=== PATIENT | male | born 1980 | race Caucasian/White ===

== ENCOUNTER 2017-06-25 06:26 | Inpatient (IN) | payer SELFPAY ==
--- OUTSIDE RECORDS SUMMARY | 2017-06-25 06:28 | XMS REPORT ---
:1980 [facility] [address] [place] [address] Care Team Providers Name Role Phone LILIA HILL Unavailable Unavailable CARL TORRESTAMEKA Unavailable Unavailable Problems This patient has no known problems. Allergies, Adverse Reactions, Alerts This patient has no known allergies or adverse reactions. Medications This patient has no known medications. Results Test Description Test Time Test Comments Text Results Atomic Results Result Comments COMPREHENSIVE METABOLIC PANEL 2017-05-19 14:02:00 Test Item Value Reference Range Comments TOTAL PROTEIN (BEAKER) (test 7.8 gm/dL 6.0-8.3 avdn=128) ALBUMIN (BEAKER) (test 3.9 g/dL 3.5-5.0 ezgi=1445) ALKALINE PHOSPHATASE 62 U/L 40-150 (BEAKER) (test zpwq=968) BILIRUBIN TOTAL (BEAKER) 0.3 mg/dL 0.2-1.2 (test bujn=815) SODIUM (BEAKER) (test 139 meq/L 136-145 uhwq=606) POTASSIUM (BEAKER) (test 4.2 meq/L 3.5-5.1 ujga=824) CHLORIDE (BEAKER) (test 104 meq/L 98-107 gacs=856) CO2 (BEAKER) (test qqtn=481) 26 meq/L 22-29 BLOOD UREA NITROGEN (BEAKER) 9 mg/dL 7-21 (test yptc=255) CREATININE (BEAKER) (test 0.64 mg/dL 0.57-1.25 yfbc=655) GLUCOSE RANDOM (BEAKER) 78 mg/dL 70-105 (test emsx=319) CALCIUM (BEAKER) (test 9.5 mg/dL 8.4-10.2 mnml=536) AST (SGOT) (BEAKER) (test 18 U/L 5-34 cdql=595) ALT (SGPT) (BEAKER) (test 8 U/L 6-55 xstc=459) EGFR (BEAKER) (test 141 mL/min/1.73 sq m ESTIMATED GFR IS NOT wapg=4376) ACCURATE CREATININE CLEARANCE IN PREDICTING GLOMERULAR FILTRATION RATE. ESTIMATED GFR IS NOT APPLICABLE FOR DIALYSIS PATIENTS. COMPREHENSIVE METABOLIC [id number] 06:08:00 Test Item Value Reference Range Comments TOTAL PROTEIN (BEAKER) 7.0 gm/dL 6.0-8.3 Specimen slightly (test ykij=767) hemolyzed ALBUMIN (BEAKER) (test 3.4 g/dL 3.5-5.0 Specimen slightly qifv=3453) hemolyzed ALKALINE PHOSPHATASE 58 U/L 40-150 (BEAKER) (test egxg=451) BILIRUBIN TOTAL (BEAKER) 0.4 mg/dL 0.2-1.2 Specimen slightly (test kdre=784) hemolyzed SODIUM (BEAKER) (test 139 meq/L 136-145 itvc=867) POTASSIUM (BEAKER) (test 4.5 meq/L 3.5-5.1 Specimen slightly zeyv=107) hemolyzed CHLORIDE (BEAKER) (test 103 meq/L 98-107 shfv=293) CO2 (BEAKER) (test 27 meq/L 22-29 zxiq=864) BLOOD UREA NITROGEN 2 mg/dL 7-21 (BEAKER) (test fsue=540) CREATININE (BEAKER) (test 0.55 mg/dL 0.57-1.25 Specimen slightly xskd=909) hemolyzed GLUCOSE RANDOM (BEAKER) 85 mg/dL 70-105 (test dfqd=393) CALCIUM (BEAKER) (test 9.3 mg/dL 8.4-10.2 khbk=566) AST (SGOT) (BEAKER) (test 18 U/L 5-34 Specimen slightly hcht=480) hemolyzed ALT (SGPT) (BEAKER) (test 8 U/L 6-55 Specimen slightly dnxl=185) hemolyzed EGFR (BEAKER) (test 168 mL/min/1.73 sq ESTIMATED GFR IS NOT hidu=9227) m ACCURATE CREATININE CLEARANCE IN PREDICTING GLOMERULAR FILTRATION RATE. ESTIMATED GFR IS NOT APPLICABLE FOR DIALYSIS PATIENTS. CBC (HEMOGRAM ONLY)2017-05-17 05:20:00 Test Item Value Reference Range Comments WHITE BLOOD CELL COUNT (BEAKER) (test nxqe=856) 6.4 K/ L 3.5-10.5 RED BLOOD CELL COUNT (BEAKER) (test vwms=907) 3.84 M/ L 4.63-6.08 HEMOGLOBIN (BEAKER) (test hxbu=525) 11.5 GM/DL 13.7-17.5 HEMATOCRIT (BEAKER) (test isrp=324) 35.2 % 40.1-51.0 MEAN CORPUSCULAR VOLUME (BEAKER) (test mpbe=696) 91.7 fL 79.0-92.2 MEAN CORPUSCULAR HEMOGLOBIN (BEAKER) (test 29.9 pg 25.7-32.2 luzl=071) MEAN CORPUSCULAR HEMOGLOBIN CONC (BEAKER) (test 32.7 GM/DL 32.3-36.5 vhji=438) RED CELL DISTRIBUTION WIDTH (BEAKER) (test 14.1 % 11.6-14.4 skcv=095) PLATELET COUNT (BEAKER) (test zlnj=320) 434 K/CU MM 150-450 MEAN PLATELET VOLUME (BEAKER) (test vhki=467) 9.4 fL 9.4-12.4 NUCLEATED RED BLOOD CELLS (BEAKER) (test 0 /100 WBC 0-0 deug=967) HEPATIC FUNCTION [id number] 11:22:00 Test Item Value Reference Range Comments TOTAL PROTEIN (BEAKER) (test ukmz=109) 6.9 gm/dL 6.0-8.3 ALBUMIN (BEAKER) (test pbsy=5462) 3.4 g/dL 3.5-5.0 BILIRUBIN TOTAL (BEAKER) (test vssm=183) 0.4 mg/dL 0.2-1.2 BILIRUBIN DIRECT (BEAKER) (test rswz=331) 0.2 mg/dL 0.1-0.5 ALKALINE PHOSPHATASE (BEAKER) (test cdbe=873) 65 U/L 40-150 AST (SGOT) (BEAKER) (test dqjy=353) 14 U/L 5-34 ALT (SGPT) (BEAKER) (test oqfz=251) 8 U/L 6-55 CBC W/PLT COUNT & AUTO [id number] 11:16:00 Test Item Value Reference Range Comments WHITE BLOOD CELL COUNT (BEAKER) (test pxnp=010) 7.0 K/ L 3.5-10.5 RED BLOOD CELL COUNT (BEAKER) (test hdcj=416) 3.90 M/ L 4.63-6.08 HEMOGLOBIN (BEAKER) (test hcpo=972) 11.9 GM/DL 13.7-17.5 HEMATOCRIT (BEAKER) (test ytxy=060) 35.7 % 40.1-51.0 MEAN CORPUSCULAR VOLUME (BEAKER) (test mltc=238) 91.5 fL 79.0-92.2 MEAN CORPUSCULAR HEMOGLOBIN (BEAKER) (test 30.5 pg 25.7-32.2 qjdl=316) MEAN CORPUSCULAR HEMOGLOBIN CONC (BEAKER) (test 33.3 GM/DL 32.3-36.5 iiwa=712) RED CELL DISTRIBUTION WIDTH (BEAKER) (test 14.0 % 11.6-14.4 exlh=493) PLATELET COUNT (BEAKER) (test tbjv=074) 452 K/CU MM 150-450 MEAN PLATELET VOLUME (BEAKER) (test lfoj=422) 9.0 fL 9.4-12.4 NUCLEATED RED BLOOD CELLS (BEAKER) (test 0 /100 WBC 0-0 lnaf=500) NEUTROPHILS RELATIVE PERCENT (BEAKER) (test 59 % bfog=733) LYMPHOCYTES RELATIVE PERCENT (BEAKER) (test 21 % qozv=687) MONOCYTES RELATIVE PERCENT (BEAKER) (test 8 % yqfu=375) EOSINOPHILS RELATIVE PERCENT (BEAKER) (test 10 % uuft=155) BASOPHILS RELATIVE PERCENT (BEAKER) (test 1 % wqmt=475) NEUTROPHILS ABSOLUTE COUNT (BEAKER) (test 4.12 K/ L 1.78-5.38 zlya=467) LYMPHOCYTES ABSOLUTE COUNT (BEAKER) (test 1.45 K/ L 1.32-3.57 fvyn=532) MONOCYTES ABSOLUTE COUNT (BEAKER) (test 0.58 K/ L 0.30-0.82 gfly=408) EOSINOPHILS ABSOLUTE COUNT (BEAKER) (test 0.70 K/ L 0.04-0.54 xfec=631) BASOPHILS ABSOLUTE COUNT (BEAKER) (test 0.10 K/ L 0.01-0.08 pksv=859) IMMATURE GRANULOCYTES-RELATIVE PERCENT (BEAKER) 0 % 0-1 (test uqog=9590) BASIC METABOLIC [id number] 06:43:00 Test Item Value Reference Range Comments SODIUM (BEAKER) (test 138 meq/L 136-145 omne=413) POTASSIUM (BEAKER) (test 3.5 meq/L 3.5-5.1 flol=142) CHLORIDE (BEAKER) (test 100 meq/L 98-107 tbpf=920) CO2 (BEAKER) (test 27 meq/L 22-29 wuow=271) BLOOD UREA NITROGEN 2 mg/dL 7-21 (BEAKER) (test vyiy=120) CREATININE (BEAKER) (test 0.53 mg/dL 0.57-1.25 fzqc=517) GLUCOSE RANDOM (BEAKER) 82 mg/dL 70-105 (test sycz=552) CALCIUM (BEAKER) (test 9.0 mg/dL 8.4-10.2 jsvb=107) EGFR (BEAKER) (test 175 mL/min/1.73 sq m ESTIMATED GFR IS NOT unkv=4351) ACCURATE CREATININE CLEARANCE IN PREDICTING GLOMERULAR FILTRATION RATE. ESTIMATED GFR IS NOT APPLICABLE FOR DIALYSIS PATIENTS. BASIC METABOLIC [id number] 05:14:00 Test Item Value Reference Range Comments SODIUM (BEAKER) (test 132 meq/L 136-145 cxrk=624) POTASSIUM (BEAKER) (test 3.8 meq/L 3.5-5.1 oxfc=056) CHLORIDE (BEAKER) (test 101 meq/L 98-107 mjyo=862) CO2 (BEAKER) (test 18 meq/L 22-29 dawy=771) BLOOD UREA NITROGEN 4 mg/dL 7-21 (BEAKER) (test looj=966) CREATININE (BEAKER) (test 0.52 mg/dL 0.57-1.25 aswy=557) GLUCOSE RANDOM (BEAKER) 58 mg/dL 70-105 (test yzsu=227) CALCIUM (BEAKER) (test 8.7 mg/dL 8.4-10.2 gebz=762) EGFR (BEAKER) (test 179 mL/min/1.73 sq m ESTIMATED GFR IS NOT vpfg=1086) ACCURATE CREATININE CLEARANCE IN PREDICTING GLOMERULAR FILTRATION RATE. ESTIMATED GFR IS NOT APPLICABLE FOR DIALYSIS PATIENTS. CBC (HEMOGRAM ONLY)2017-05-15 04:57:00 Test Item Value Reference Range Comments WHITE BLOOD CELL COUNT (BEAKER) (test bkkr=330) 13.4 K/ L 3.5-10.5 RED BLOOD CELL COUNT (BEAKER) (test frxy=994) 3.81 M/ L 4.63-6.08 HEMOGLOBIN (BEAKER) (test mlyk=517) 11.4 GM/DL 13.7-17.5 HEMATOCRIT (BEAKER) (test dqad=149) 35.1 % 40.1-51.0 MEAN CORPUSCULAR VOLUME (BEAKER) (test zced=396) 92.1 fL 79.0-92.2 MEAN CORPUSCULAR HEMOGLOBIN (BEAKER) (test 29.9 pg 25.7-32.2 ulnh=611) MEAN CORPUSCULAR HEMOGLOBIN CONC (BEAKER) (test 32.5 GM/DL 32.3-36.5 ijxm=926) RED CELL DISTRIBUTION WIDTH (BEAKER) (test 14.3 % 11.6-14.4 udnt=870) PLATELET COUNT (BEAKER) (test nvxb=976) 502 K/CU MM 150-450 MEAN PLATELET VOLUME (BEAKER) (test qldz=308) 9.6 fL 9.4-12.4 NUCLEATED RED BLOOD CELLS (BEAKER) (test 0 /100 WBC 0-0 zdpz=144) LIPID [id number] 05:00:00 Test Item Value Reference Range Comments TRIGLYCERIDES (BEAKER) (test sbqi=998) 71 mg/dL CHOLESTEROL (BEAKER) (test qjmp=061) 108 mg/dL HDL CHOLESTEROL (BEAKER) (test gxlc=546) 22 mg/dL LDL CHOLESTEROL CALCULATED (BEAKER) (test 72 mg/dL vpfd=979) Triglyceride Reference Range: Low Risk <150 Borderline 150- 199 High Risk 200-499 Very High Risk >=500Cholesterol Reference Range: Low Risk <200 Borderline 200-239 High Risk > 240HDL Cholesterol Reference Range: Low Risk >=60 High Risk <40LDL Cholesterol Reference Range: Optimal <100 Near Optimal 100-129 Borderline 130-159 High 160-189 Very High >=190BASIC METABOLIC [id number] 05:00:00 Test Item Value Reference Range Comments SODIUM (BEAKER) (test 133 meq/L 136-145 gfzo=007) POTASSIUM (BEAKER) (test 4.1 meq/L 3.5-5.1 bmcc=410) CHLORIDE (BEAKER) (test 105 meq/L 98-107 djyh=443) CO2 (BEAKER) (test 17 meq/L 22-29 pina=410) BLOOD UREA NITROGEN 8 mg/dL 7-21 (BEAKER) (test meej=996) CREATININE (BEAKER) (test 0.51 mg/dL 0.57-1.25 hlfd=731) GLUCOSE RANDOM (BEAKER) 54 mg/dL 70-105 (test zhmu=842) CALCIUM (BEAKER) (test 8.4 mg/dL 8.4-10.2 cari=113) EGFR (BEAKER) (test 183 mL/min/1.73 sq m ESTIMATED GFR IS NOT gmsa=9296) ACCURATE CREATININE CLEARANCE IN PREDICTING GLOMERULAR FILTRATION RATE. ESTIMATED GFR IS NOT APPLICABLE FOR DIALYSIS PATIENTS. HEPATIC FUNCTION [id number] 05:00:00 Test Item Value Reference Range Comments TOTAL PROTEIN (BEAKER) (test uuqa=582) 6.3 gm/dL 6.0-8.3 ALBUMIN (BEAKER) (test sylu=4721) 3.2 g/dL 3.5-5.0 BILIRUBIN TOTAL (BEAKER) (test iidw=543) 0.7 mg/dL 0.2-1.2 BILIRUBIN DIRECT (BEAKER) (test tger=113) 0.3 mg/dL 0.1-0.5 ALKALINE PHOSPHATASE (BEAKER) (test gsqt=703) 62 U/L 40-150 AST (SGOT) (BEAKER) (test kqwr=174) 13 U/L 5-34 ALT (SGPT) (BEAKER) (test sdaa=964) 9 U/L 6-55 [id number] 05:00:00 Test Item Value Reference Range Comments LIPASE (BEAKER) (test nxim=539) 1007 U/L 8-78 CBC (HEMOGRAM ONLY)2017-05-14 04:39:00 Test Item Value Reference Range Comments WHITE BLOOD CELL COUNT (BEAKER) (test onnw=599) 16.6 K/ L 3.5-10.5 RED BLOOD CELL COUNT (BEAKER) (test otob=740) 3.98 M/ L 4.63-6.08 HEMOGLOBIN (BEAKER) (test kbha=337) 12.0 GM/DL 13.7-17.5 HEMATOCRIT (BEAKER) (test ugnm=354) 37.2 % 40.1-51.0 MEAN CORPUSCULAR VOLUME (BEAKER) (test egyy=313) 93.5 fL 79.0-92.2 MEAN CORPUSCULAR HEMOGLOBIN (BEAKER) (test 30.2 pg 25.7-32.2 fuaq=397) MEAN CORPUSCULAR HEMOGLOBIN CONC (BEAKER) (test 32.3 GM/DL 32.3-36.5 hkyv=826) RED CELL DISTRIBUTION WIDTH (BEAKER) (test 14.5 % 11.6-14.4 siqj=296) PLATELET COUNT (BEAKER) (test zdbc=201) 527 K/CU MM 150-450 MEAN PLATELET VOLUME (BEAKER) (test orhm=618) 9.5 fL 9.4-12.4 NUCLEATED RED BLOOD CELLS (BEAKER) (test 0 /100 WBC 0-0 utfz=619) MR, ABDOMEN, [id number] 12:25:00FINAL REPORT MRI of the abdomen, MRCP. Clinical history: Pancreatitis. COMPARISON STUDY: None. TECHNIQUE: Multiplanar, multisequence images of the abdomen were acquired without the administration of intravenous gadolinium as per the MRCP protocol. Three-dimensional reconstructions were acquired and utilized by the dictating radiologist at the time of interpretation. FINDINGS: No pleural effusion is seen. The abdomen is limited by lack of contrast. The liver, spleen, kidneys and adrenal glands are unremarkable. The portal vein is patent measuring 1.1 cm. No definite vascular thrombosis is seen. No ascites is seen. There is no suspicious adenopathy. The aorta is normal in caliber. A 2.4 x 2.3 cm hypointense T1 and heterogeneousT2-weighted lesion is seen in the pancreatic head, possibly a pseudocyst. Similarly, there is a 1.9 x 0.7 cm likely fluid collection versus focal ductal dilatation in the uncinate process region. Peripancreatic increased T2-weighted signal is also seen, more so around the head consistent with the provided clinical history of pancreatitis. No organized peripancreatic fluid collections are seen. MRCP demonstrates a 3 mm filling defect, likely a tiny stone or polyp in the neck of the gallbladder, near the cystic duct. No evidence of biliary dilatationis seen with the CBD measuring 3 mm. There is no choledocholithiasis noted. The pancreatic duct is normal in caliber. Visualized osseous structures demonstrate no focal rounded. IMPRESSION:1. Findings consistent with pancreatitis. Lack of contrast limits assessment but is likely pseudocyst is seen in the pancreatic head region. There is also an area of fluid in the uncinate process, pseudocyst versusfocal ductal dilatation. These could be followed up to ensure resolution and exclude other etiologies.2. Suspected tiny gallstone or polyp in the gallbladder neck. No biliary dilatation or choledocholithiasis. Signed: Kiko Vee MDReport Verified Date/Time: 03/13/2017 12:25:41 Reading Location: [address] Ortho Consult Reading Room Electronically signed by: KIKO VEE M.D. on 12:25 [facility] METABOLIC [id number] 05:05:00 Test Item Value Reference Range Comments SODIUM (BEAKER) (test 139 meq/L 136-145 svcq=063) POTASSIUM (BEAKER) (test 3.7 meq/L 3.5-5.1 bxdl=014) CHLORIDE (BEAKER) (test 108 meq/L 98-107 zbyh=794) CO2 (BEAKER) (test 22 meq/L 22-29 elsh=880) BLOOD UREA NITROGEN 4 mg/dL 7-21 (BEAKER) (test ermn=048) CREATININE (BEAKER) (test 0.58 mg/dL 0.57-1.25 eakw=752) GLUCOSE RANDOM (BEAKER) 95 mg/dL 70-105 (test wlth=365) CALCIUM (BEAKER) (test 8.5 mg/dL 8.4-10.2 kteq=324) EGFR (BEAKER) (test 158 mL/min/1.73 sq m ESTIMATED GFR IS NOT jqqo=7263) ACCURATE CREATININE CLEARANCE IN PREDICTING GLOMERULAR FILTRATION RATE. ESTIMATED GFR IS NOT APPLICABLE FOR DIALYSIS PATIENTS. CBC W/PLT COUNT & AUTO [id number] 04:49:00 Test Item Value Reference Range Comments WHITE BLOOD CELL COUNT (BEAKER) (test sukz=755) 6.3 K/ L 3.5-10.5 RED BLOOD CELL COUNT (BEAKER) (test cvrt=689) 4.32 M/ L 4.63-6.08 HEMOGLOBIN (BEAKER) (test qnhz=564) 13.7 GM/DL 13.7-17.5 HEMATOCRIT (BEAKER) (test fjix=754) 40.3 % 40.1-51.0 MEAN CORPUSCULAR VOLUME (BEAKER) (test nklb=689) 93.3 fL 79.0-92.2 MEAN CORPUSCULAR HEMOGLOBIN (BEAKER) (test 31.7 pg 25.7-32.2 afmc=108) MEAN CORPUSCULAR HEMOGLOBIN CONC (BEAKER) (test 34.0 GM/DL 32.3-36.5 yoir=736) RED CELL DISTRIBUTION WIDTH (BEAKER) (test 11.9 % 11.6-14.4 vteh=088) PLATELET COUNT (BEAKER) (test izop=798) 286 K/CU MM 150-450 MEAN PLATELET VOLUME (BEAKER) (test judb=506) 9.4 fL 9.4-12.4 NUCLEATED RED BLOOD CELLS (BEAKER) (test 0 /100 WBC 0-0 atrr=540) NEUTROPHILS RELATIVE PERCENT (BEAKER) (test 51 % ewil=643) LYMPHOCYTES RELATIVE PERCENT (BEAKER) (test 31 % hifm=622) MONOCYTES RELATIVE PERCENT (BEAKER) (test 11 % xsut=693) EOSINOPHILS RELATIVE PERCENT (BEAKER) (test 6 % kcjf=266) BASOPHILS RELATIVE PERCENT (BEAKER) (test 1 % nmqk=755) NEUTROPHILS ABSOLUTE COUNT (BEAKER) (test 3.21 K/ L 1.78-5.38 kqcb=119) LYMPHOCYTES ABSOLUTE COUNT (BEAKER) (test 1.91 K/ L 1.32-3.57 qcyv=438) MONOCYTES ABSOLUTE COUNT (BEAKER) (test 0.68 K/ L 0.30-0.82 nioo=813) EOSINOPHILS ABSOLUTE COUNT (BEAKER) (test 0.40 K/ L 0.04-0.54 kafz=739) BASOPHILS ABSOLUTE COUNT (BEAKER) (test 0.04 K/ L 0.01-0.08 hpij=172) IMMATURE GRANULOCYTES-RELATIVE PERCENT (BEAKER) 1 % 0-1 (test ulwx=3633) CBC W/PLT COUNT & AUTO [id number] 04:52:00 Test Item Value Reference Range Comments WHITE BLOOD CELL COUNT (BEAKER) (test knwk=014) 6.2 K/ L 3.5-10.5 RED BLOOD CELL COUNT (BEAKER) (test wcdm=771) 4.31 M/ L 4.63-6.08 HEMOGLOBIN (BEAKER) (test szth=416) 13.7 GM/DL 13.7-17.5 HEMATOCRIT (BEAKER) (test pchq=188) 41.1 % 40.1-51.0 MEAN CORPUSCULAR VOLUME (BEAKER) (test xxgu=641) 95.4 fL 79.0-92.2 MEAN CORPUSCULAR HEMOGLOBIN (BEAKER) (test 31.8 pg 25.7-32.2 dsuc=452) MEAN CORPUSCULAR HEMOGLOBIN CONC (BEAKER) (test 33.3 GM/DL 32.3-36.5 akwu=899) RED CELL DISTRIBUTION WIDTH (BEAKER) (test 12.1 % 11.6-14.4 cymp=070) PLATELET COUNT (BEAKER) (test fkdh=054) 295 K/CU MM 150-450 MEAN PLATELET VOLUME (BEAKER) (test actz=970) 9.5 fL 9.4-12.4 NUCLEATED RED BLOOD CELLS (BEAKER) (test 0 /100 WBC 0-0 tzid=192) NEUTROPHILS RELATIVE PERCENT (BEAKER) (test 51 % okct=693) LYMPHOCYTES RELATIVE PERCENT (BEAKER) (test 31 % nizf=172) MONOCYTES RELATIVE PERCENT (BEAKER) (test 11 % iwbb=031) EOSINOPHILS RELATIVE PERCENT (BEAKER) (test 7 % qahx=308) BASOPHILS RELATIVE PERCENT (BEAKER) (test 1 % mjgz=958) NEUTROPHILS ABSOLUTE COUNT (BEAKER) (test 3.17 K/ L 1.78-5.38 nqff=677) LYMPHOCYTES ABSOLUTE COUNT (BEAKER) (test 1.89 K/ L 1.32-3.57 uajf=512) MONOCYTES ABSOLUTE COUNT (BEAKER) (test 0.65 K/ L 0.30-0.82 krla=328) EOSINOPHILS ABSOLUTE COUNT (BEAKER) (test 0.41 K/ L 0.04-0.54 eumb=022) BASOPHILS ABSOLUTE COUNT (BEAKER) (test 0.05 K/ L 0.01-0.08 pguf=411) IMMATURE GRANULOCYTES-RELATIVE PERCENT (BEAKER) 1 % 0-1 (test bami=6139) COMPREHENSIVE METABOLIC [id number] 11:20:00 Test Item Value Reference Range Comments TOTAL PROTEIN (BEAKER) 7.2 gm/dL 6.0-8.3 (test wpsq=455) ALBUMIN (BEAKER) (test 3.7 g/dL 3.5-5.0 vbcs=2115) ALKALINE PHOSPHATASE 73 U/L 40-150 (BEAKER) (test dzbe=995) BILIRUBIN TOTAL (BEAKER) 0.6 mg/dL 0.2-1.2 (test mivb=029) SODIUM (BEAKER) (test 135 meq/L 136-145 vdlr=532) POTASSIUM (BEAKER) (test 5.0 meq/L 3.5-5.1 ehhn=676) CHLORIDE (BEAKER) (test 109 meq/L 98-107 enty=292) CO2 (BEAKER) (test 14 meq/L 22-29 rnpc=078) BLOOD UREA NITROGEN 6 mg/dL 7-21 (BEAKER) (test kpeb=362) CREATININE (BEAKER) (test 0.62 mg/dL 0.57-1.25 zpbf=253) GLUCOSE RANDOM (BEAKER) 45 mg/dL 70-105 (test ljqi=974) CALCIUM (BEAKER) (test 8.6 mg/dL 8.4-10.2 qqza=545) AST (SGOT) (BEAKER) (test 17 U/L 5-34 ogjj=437) ALT (SGPT) (BEAKER) (test 14 U/L 6-55 qvpn=126) EGFR (BEAKER) (test 146 mL/min/1.73 sq ESTIMATED GFR IS NOT mbeu=3463) m ACCURATE CREATININE CLEARANCE IN PREDICTING GLOMERULAR FILTRATION RATE. ESTIMATED GFR IS NOT APPLICABLE FOR DIALYSIS PATIENTS. CBC W/PLT COUNT & AUTO [id number] 09:54:00 Test Item Value Reference Range Comments WHITE BLOOD CELL COUNT (BEAKER) (test xrfp=213) 7.4 K/ L 3.5-10.5 RED BLOOD CELL COUNT (BEAKER) (test ntpe=065) 4.32 M/ L 4.63-6.08 HEMOGLOBIN (BEAKER) (test wqws=607) 13.6 GM/DL 13.7-17.5 HEMATOCRIT (BEAKER) (test tlbc=730) 41.8 % 40.1-51.0 MEAN CORPUSCULAR VOLUME (BEAKER) (test bgzi=209) 96.8 fL 79.0-92.2 MEAN CORPUSCULAR HEMOGLOBIN (BEAKER) (test 31.5 pg 25.7-32.2 ixcu=856) MEAN CORPUSCULAR HEMOGLOBIN CONC (BEAKER) (test 32.5 GM/DL 32.3-36.5 txrp=753) RED CELL DISTRIBUTION WIDTH (BEAKER) (test 12.1 % 11.6-14.4 osbc=278) PLATELET COUNT (BEAKER) (test vxic=271) 277 K/CU MM 150-450 MEAN PLATELET VOLUME (BEAKER) (test vlmq=673) 9.7 fL 9.4-12.4 NUCLEATED RED BLOOD CELLS (BEAKER) (test 0 /100 WBC 0-0 wkrp=918) NEUTROPHILS RELATIVE PERCENT (BEAKER) (test 57 % lyhw=926) LYMPHOCYTES RELATIVE PERCENT (BEAKER) (test 29 % kapt=735) MONOCYTES RELATIVE PERCENT (BEAKER) (test 8 % txut=153) EOSINOPHILS RELATIVE PERCENT (BEAKER) (test 5 % tvcb=160) BASOPHILS RELATIVE PERCENT (BEAKER) (test 1 % krkh=879) NEUTROPHILS ABSOLUTE COUNT (BEAKER) (test 4.23 K/ L 1.78-5.38 iyca=582) LYMPHOCYTES ABSOLUTE COUNT (BEAKER) (test 2.10 K/ L 1.32-3.57 onzf=397) MONOCYTES ABSOLUTE COUNT (BEAKER) (test 0.57 K/ L 0.30-0.82 aqva=536) EOSINOPHILS ABSOLUTE COUNT (BEAKER) (test 0.38 K/ L 0.04-0.54 svmn=588) BASOPHILS ABSOLUTE COUNT (BEAKER) (test 0.05 K/ L 0.01-0.08 dzdl=152) IMMATURE GRANULOCYTES-RELATIVE PERCENT (BEAKER) 1 % 0-1 (test ygzt=4279) (MANUAL DIFFERENTIAL)2017-03-11 09:54:00 Test Item Value Reference Range Comments TOTAL COUNTED (BEAKER) (test dxua=3906) WBC MORPHOLOGY (BEAKER) (test oryg=925) Normal PLT MORPHOLOGY (BEAKER) (test uxzp=108) Normal RBC MORPHOLOGY (BEAKER) (test eybm=826) Normal CBC W/PLT COUNT & AUTO [id number] 09:09:00 Test Item Value Reference Range Comments WHITE BLOOD CELL COUNT (BEAKER) (test fpww=042) 8.9 K/ L 3.5-10.5 RED BLOOD CELL COUNT (BEAKER) (test qbvg=901) 4.25 M/ L 4.63-6.08 HEMOGLOBIN (BEAKER) (test kluh=230) 13.6 GM/DL 13.7-17.5 HEMATOCRIT (BEAKER) (test fhve=808) 40.7 % 40.1-51.0 MEAN CORPUSCULAR VOLUME (BEAKER) (test cwmc=359) 95.8 fL 79.0-92.2 MEAN CORPUSCULAR HEMOGLOBIN (BEAKER) (test 32.0 pg 25.7-32.2 swji=376) MEAN CORPUSCULAR HEMOGLOBIN CONC (BEAKER) (test 33.4 GM/DL 32.3-36.5 pdod=870) RED CELL DISTRIBUTION WIDTH (BEAKER) (test 12.1 % 11.6-14.4 kcrk=552) PLATELET COUNT (BEAKER) (test giac=035) 274 K/CU MM 150-450 MEAN PLATELET VOLUME (BEAKER) (test vgnq=399) 9.8 fL 9.4-12.4 NUCLEATED RED BLOOD CELLS (BEAKER) (test 0 /100 WBC 0-0 fuuh=580) NEUTROPHILS RELATIVE PERCENT (BEAKER) (test 62 % jsxo=603) LYMPHOCYTES RELATIVE PERCENT (BEAKER) (test 24 % avqh=526) MONOCYTES RELATIVE PERCENT (BEAKER) (test 7 % jnnh=755) EOSINOPHILS RELATIVE PERCENT (BEAKER) (test 5 % yzrq=370) BASOPHILS RELATIVE PERCENT (BEAKER) (test 1 % ltok=400) NEUTROPHILS ABSOLUTE COUNT (BEAKER) (test 5.55 K/ L 1.78-5.38 btip=681) LYMPHOCYTES ABSOLUTE COUNT (BEAKER) (test 2.14 K/ L 1.32-3.57 pthq=183) MONOCYTES ABSOLUTE COUNT (BEAKER) (test 0.64 K/ L 0.30-0.82 qjum=042) EOSINOPHILS ABSOLUTE COUNT (BEAKER) (test 0.48 K/ L 0.04-0.54 alxo=755) BASOPHILS ABSOLUTE COUNT (BEAKER) (test 0.07 K/ L 0.01-0.08 bizy=814) IMMATURE GRANULOCYTES-RELATIVE PERCENT (BEAKER) 0 % 0-1 (test jdup=0450) (MANUAL DIFFERENTIAL)2017-03-10 09:09:00 Test Item Value Reference Range Comments TOTAL COUNTED (BEAKER) (test wrgi=5068) WBC MORPHOLOGY (BEAKER) (test mlxk=270) Normal PLT MORPHOLOGY (BEAKER) (test oanq=583) Normal RBC MORPHOLOGY (BEAKER) (test qiws=364) Normal COMPREHENSIVE METABOLIC [id number] 07:30:00 Test Item Value Reference Range Comments TOTAL PROTEIN (BEAKER) 6.8 gm/dL 6.0-8.3 (test yyav=546) ALBUMIN (BEAKER) (test 3.6 g/dL 3.5-5.0 onoc=7291) ALKALINE PHOSPHATASE 77 U/L 40-150 (BEAKER) (test octx=245) BILIRUBIN TOTAL (BEAKER) 0.6 mg/dL 0.2-1.2 (test lpeu=268) SODIUM (BEAKER) (test 136 meq/L 136-145 zmda=051) POTASSIUM (BEAKER) (test 4.3 meq/L 3.5-5.1 bruv=808) CHLORIDE (BEAKER) (test 105 meq/L 98-107 nxnk=548) CO2 (BEAKER) (test 19 meq/L 22-29 akzt=942) BLOOD UREA NITROGEN 6 mg/dL 7-21 (BEAKER) (test hqrg=905) CREATININE (BEAKER) (test 0.57 mg/dL 0.57-1.25 szgx=880) GLUCOSE RANDOM (BEAKER) 52 mg/dL 70-105 (test mzol=806) CALCIUM (BEAKER) (test 8.2 mg/dL 8.4-10.2 yzsz=711) AST (SGOT) (BEAKER) (test 17 U/L 5-34 cnig=305) ALT (SGPT) (BEAKER) (test 14 U/L 6-55 uhof=882) EGFR (BEAKER) (test 161 mL/min/1.73 sq ESTIMATED GFR IS NOT cxby=7409) m ACCURATE CREATININE CLEARANCE IN PREDICTING GLOMERULAR FILTRATION RATE. ESTIMATED GFR IS NOT APPLICABLE FOR DIALYSIS PATIENTS. CBC W/PLT COUNT & AUTO [id number] 10:49:00 Test Item Value Reference Range Comments WHITE BLOOD CELL COUNT (BEAKER) (test vvii=514) 6.9 K/ L 3.5-10.5 RED BLOOD CELL COUNT (BEAKER) (test pipb=364) 3.83 M/ L 4.63-6.08 HEMOGLOBIN (BEAKER) (test umps=225) 12.5 GM/DL 13.7-17.5 HEMATOCRIT (BEAKER) (test imkw=010) 36.7 % 40.1-51.0 MEAN CORPUSCULAR VOLUME (BEAKER) (test uuqa=888) 95.8 fL 79.0-92.2 MEAN CORPUSCULAR HEMOGLOBIN (BEAKER) (test 32.6 pg 25.7-32.2 sjyp=479) MEAN CORPUSCULAR HEMOGLOBIN CONC (BEAKER) (test 34.1 GM/DL 32.3-36.5 buaf=686) RED CELL DISTRIBUTION WIDTH (BEAKER) (test 12.4 % 11.6-14.4 dksb=878) PLATELET COUNT (BEAKER) (test junv=131) 267 K/CU MM 150-450 MEAN PLATELET VOLUME (BEAKER) (test geir=648) 9.7 fL 9.4-12.4 NUCLEATED RED BLOOD CELLS (BEAKER) (test 0 /100 WBC 0-0 gqas=640) NEUTROPHILS RELATIVE PERCENT (BEAKER) (test 60 % ysyy=179) LYMPHOCYTES RELATIVE PERCENT (BEAKER) (test 26 % fark=811) MONOCYTES RELATIVE PERCENT (BEAKER) (test 7 % woys=516) EOSINOPHILS RELATIVE PERCENT (BEAKER) (test 6 % cnyb=051) BASOPHILS RELATIVE PERCENT (BEAKER) (test 1 % yosw=375) NEUTROPHILS ABSOLUTE COUNT (BEAKER) (test 4.15 K/ L 1.78-5.38 gcss=542) LYMPHOCYTES ABSOLUTE COUNT (BEAKER) (test 1.82 K/ L 1.32-3.57 peci=971) MONOCYTES ABSOLUTE COUNT (BEAKER) (test 0.47 K/ L 0.30-0.82 rsjv=257) EOSINOPHILS ABSOLUTE COUNT (BEAKER) (test 0.38 K/ L 0.04-0.54 bqwv=836) BASOPHILS ABSOLUTE COUNT (BEAKER) (test 0.04 K/ L 0.01-0.08 gtbp=046) COMPREHENSIVE METABOLIC [id number] 10:45:00 Test Item Value Reference Range Comments TOTAL PROTEIN (BEAKER) 6.2 gm/dL 6.0-8.3 (test wonh=968) ALBUMIN (BEAKER) (test 3.3 g/dL 3.5-5.0 cuoh=9916) ALKALINE PHOSPHATASE 70 U/L 40-150 (BEAKER) (test kpud=501) BILIRUBIN TOTAL (BEAKER) 0.4 mg/dL 0.2-1.2 (test lwcm=839) SODIUM (BEAKER) (test 138 meq/L 136-145 pcim=440) POTASSIUM (BEAKER) (test 3.5 meq/L 3.5-5.1 uisi=862) CHLORIDE (BEAKER) (test 109 meq/L 98-107 nwyv=592) CO2 (BEAKER) (test 23 meq/L 22-29 jlch=470) BLOOD UREA NITROGEN 5 mg/dL 7-21 (BEAKER) (test fzrk=176) CREATININE (BEAKER) (test 0.54 mg/dL 0.57-1.25 rpvc=441) GLUCOSE RANDOM (BEAKER) 77 mg/dL 70-105 (test oqpf=523) CALCIUM (BEAKER) (test 7.6 mg/dL 8.4-10.2 xzcf=554) AST (SGOT) (BEAKER) (test 18 U/L 5-34 nnpe=470) ALT (SGPT) (BEAKER) (test 15 U/L 6-55 tsmu=386) EGFR (BEAKER) (test 171 mL/min/1.73 sq ESTIMATED GFR IS NOT yzmf=0392) m ACCURATE CREATININE CLEARANCE IN PREDICTING GLOMERULAR FILTRATION RATE. ESTIMATED GFR IS NOT APPLICABLE FOR DIALYSIS PATIENTS. [id number] 10:29:00 Test Item Value Reference Range Comments TRIGLYCERIDES (BEAKER) (test ixqh=564) 58 mg/dL TRIGLYCERIDE REFERENCE RANGELow Risk <150Borderline Risk 150-199High Risk 200-499Very High Risk>=[id number] 10:29:00 Test Item Value Reference Range Comments MAGNESIUM (BEAKER) (test upgl=356) 1.4 mg/dL 1.6-2.6 [id number] 10:29:00 Test Item Value Reference Range Comments LIPASE (BEAKER) (test uqce=382) 536 U/L 8-78 PROTHROMBIN TIME/[id number] 10:22:00 Test Item Value Reference Range Comments PROTIME (BEAKER) (test tvbx=599) 14.3 seconds 11.7-14.7 INR (BENOITAKER) (test rlff=409) 1.1 <=5.9 RECOMMENDED COUMADIN/WARFARIN INR THERAPY RANGESSTANDARD DOSE: 2.0 - 3.0 Includes: PROPHYLAXIS forvenous thrombosis, systemic embolization; TREATMENT for venous thrombosis and/or pulmonary embolus.HIGH RISK: Target INR is 2.5-3.5 for patients with mechanical heart valves.
--- OUTSIDE RECORDS SUMMARY | 2017-06-25 06:28 | XMS REPORT | Clinical Summary ---
:1980 Author Organization [facility] Address [address] [place] [address] Phone Care Team Providers Name Role Phone Unavailable Primary Care Provider Unavailable Allergies Active Allergy Reactions Severity Noted Date Comments Acetaminophen 03/09/2017 Current Medications Prescription Sig. Disp. Refills Start Date End Date Status apixaban (ELIQUIS) 5 mg Take 2.5 mg by Active Tab tabletIndications: mouth 2 (two) deep venous thrombosis times daily. folic acid (FOLVITE) 1 Take 1 tablet 30 tablet 0 03/15/2017 03/15/2018 Active MG tablet (1 mg total) by mouth daily. thiamine 100 MG tablet Take 1 tablet 30 tablet 0 03/15/2017 03/15/2018 Active (100 mg total) by mouth daily. HYDROcodone-acetaminoph Take 1 tablet Active en (NORCO 10-325) by mouth every 10-325 mg per 6 (six) hours tabletIndications: Pain as needed for Pain. nicotine (NICODERM CQ) Place 1 patch 28 patch 0 03/15/2017 04/14/2017 21 mg/24 hr patch onto the skin daily for 30 days. ondansetron Take 1 tablet 20 tablet 0 05/20/2017 05/30/2017 (ZOFRAN-ODT) 4 MG (4 mg total) disintegrating tablet by mouth every 8 (eight) hours as needed for up to 10 days. Active Problems Problem Noted Date Thrombocytosis (HCC) 05/13/2017 Abdominal pain 03/09/2017 Cystic mass of pancreas 03/09/2017 Alcohol abuse 03/09/2017 Pancreatitis 03/09/2017 Mass of pancreas 03/09/2017 Smoker 03/09/2017 Hypokalemia 03/09/2017 Portal vein thrombosis 03/09/2017 Encounters Date Type Specialty Care Team Description 05/21/2017 Procedure Pass Gastroenterology 05/19/2017 Anesthesia Event Gastroenterology Dorota Cortes MD 05/13/2017 [facility] Alcohol-induced - Encounter Medicine MD Ulysses acute pancreatitis, 05/20/2017 Rafaela Samson, unspecified MD complication Diomedes Alvarado status;Alcohol MD Lul abuse;Cystic mass of pancreas;Smoker;Thr ombocytosis (HCC);Alcohol-induc ed acute pancreatitis without infection or necrosis;Smoking 03/13/2017 Procedure Pass Gastroenterology 03/11/2017 Procedure Pass Gastroenterology 03/10/2017 Anesthesia Event Gastroenterology Юлия Crump MD 03/09/2017 [facility] Alcohol - Encounter Medicine MD Araceli abuse;Cystic mass 03/14/2017 Pavel Garcia MD pancreas;Hypokalemi Quyen, a;Alcohol-induced MD aYneth acute pancreatitis, unspecified complication status;Portal vein thrombosis after 06/24/2016 Social History Tobacco Use Types Packs/Day Years Used Date Current Every Day Smoker Smokeless Tobacco: Never Used Sex Assigned at Date Recorded Not on file Last Filed Vital Signs Vital Sign Reading Time Taken Blood Pressure 124/78 05/20/2017 11:36 AM [employer] Pulse 84 05/20/2017 11:36 AM [employer] Temperature 35.7 C (96.2 F) 05/20/2017 11:36 AM [employer] Respiratory Rate 18 05/20/2017 11:36 AM [employer] Oxygen Saturation 98% 05/20/2017 11:36 AM [employer] Inhaled Oxygen Concentration - - Weight 57.1 kg (125 lb 12.8 oz) 05/13/2017 8:07 PM [employer] Height 167.6 cm (5' 6") 05/13/2017 8:07 PM [employer] Body Mass Index 20.3 05/13/2017 8:07 PM [employer] Plan of Treatment Not on file Results EKG-SCANNED (05/22/2017 12:43 PM)Comprehensive metabolic panel (05/19/2017 12: 54 PM)Only the most recent of5 resultswithin the time period is included. Component Value Ref Range Protein, Total 7.8 6.0 - 8.3 gm/dL Albumin 3.9 3.5 - 5.0 g/dL Alkaline Phosphatase 62 40 - 150 U/L Total Bilirubin 0.3 0.2 - 1.2 mg/dL Sodium 139 136 - 145 meq/L Potassium 4.2 3.5 - 5.1 meq/L Chloride 104 98 - 107 meq/L CO2 26 22 - 29 meq/L BUN 9 7 - 21 mg/dL Creatinine 0.64 0.57 - 1.25 mg/dL Glucose 78 70 - 105 mg/dL Calcium 9.5 8.4 - 10.2 mg/dL AST 18 5 - 34 U/L ALT 8 6 - 55 U/L EGFR 141Comment: ESTIMATED GFR IS NOT ACCURATE mL/min/1.73 sq m CREATININE CLEARANCE IN PREDICTING GLOMERULAR FILTRATION RATE. ESTIMATED GFR IS NOT APPLICABLE FOR DIALYSIS PATIENTS. Specimen Performing Laboratory Blood [address] [address] CBC (Hemogram only) (05/17/2017 4:26 AM)Only the most recent of3 resultswithin the time period is included. Component Value Ref Range WBC 6.4 3.5 - 10.5 K/L RBC 3.84 (L) 4.63 - 6.08 M/L Hemoglobin 11.5 (L) 13.7 - 17.5 GM/DL Hematocrit 35.2 (L) 40.1 - 51.0 % MCV 91.7 79.0 - 92.2 fL MCH 29.9 25.7 - 32.2 pg MCHC 32.7 32.3 - 36.5 GM/DL RDW 14.1 11.6 - 14.4 % Platelets 434 150 - 450 K/CU MM MPV 9.4 9.4 - 12.4 fL nRBC 0 0 - 0 /100 WBC Specimen Performing Laboratory Blood - Arm, Right [address] [address] CBC with platelet count + automated diff (05/16/2017 11:05 AM)Only the most recent of6 resultswithin the time period is included. Component Value Ref Range WBC 7.0 3.5 - 10.5 K/L RBC 3.90 (L) 4.63 - 6.08 M/L Hemoglobin 11.9 (L) 13.7 - 17.5 GM/DL Hematocrit 35.7 (L) 40.1 - 51.0 % MCV 91.5 79.0 - 92.2 fL MCH 30.5 25.7 - 32.2 pg MCHC 33.3 32.3 - 36.5 GM/DL RDW 14.0 11.6 - 14.4 % Platelets 452 (H) 150 - 450 K/CU MM MPV 9.0 (L) 9.4 - 12.4 fL nRBC 0 0 - 0 /100 WBC % Neutros 59 % % Lymphs 21 % % Monos 8 % % Eos 10 % % Baso 1 % # Neutros 4.12 1.78 - 5.38 K/L # Lymphs 1.45 1.32 - 3.57 K/L # Monos 0.58 0.30 - 0.82 K/L # Eos 0.70 (H) 0.04 - 0.54 K/L # Baso 0.10 (H) 0.01 - 0.08 K/L Immature Granulocytes-Relative 0 0 - 1 % Specimen Performing Laboratory Blood - Arm, [address] [address] CBC with platelet count + automated diff (05/16/2017 11:05 AM)Only the most recent of6 resultswithin the time period is included. Specimen Performing Laboratory Blood Narrative The following orders were created for panel order CBC with platelet count + automated diff. Procedure Abnormality Status --------- ------ CBC with platelet count ...[[id number]]AbnormalFinal result Please view results for these tests on the individual orders. Hepatic function panel (05/16/2017 10:54 AM)Only the most recent of2 resultswithin the time period is included. Component Value Ref Range Protein, Total 6.9 6.0 - 8.3 gm/dL Albumin 3.4 (L) 3.5 - 5.0 g/dL Total Bilirubin 0.4 0.2 - 1.2 mg/dL Bilirubin, Direct 0.2 0.1 - 0.5 mg/dL Alkaline Phosphatase 65 40 - 150 U/L AST 14 5 - 34 U/L ALT 8 6 - 55 U/L Specimen Performing Laboratory Blood - Arm, [address] [address] Basic metabolic panel (05/16/2017 4:48 AM)Only the most recent of4 resultswithin the time period is included. Component Value Ref Range Sodium 138 136 - 145 meq/L Potassium 3.5 3.5 - 5.1 meq/L Chloride 100 98 - 107 meq/L CO2 27 22 - 29 meq/L BUN 2 (L) 7 - 21 mg/dL Creatinine 0.53 (L) 0.57 - 1.25 mg/dL Glucose 82 70 - 105 mg/dL Calcium 9.0 8.4 - 10.2 mg/dL EGFR 175Comment: ESTIMATED GFR IS NOT ACCURATE mL/min/1.73 sq m CREATININE CLEARANCE IN PREDICTING GLOMERULAR FILTRATION RATE. ESTIMATED GFR IS NOT APPLICABLE FOR DIALYSIS PATIENTS. Specimen Performing Laboratory Blood - Arm, [address] [address] Lipase (05/14/2017 4:08 AM)Only the most recent of2 resultswithin the time period is included. Component Value Ref Range Lipase 1007 (H) 8 - 78 U/L Specimen Performing Laboratory Blood - Arm, [address] [address] Lipid panel (05/14/2017 4:08 AM) Component Value Ref Range Triglycerides 71 mg/dL Cholesterol 108 mg/dL HDL 22 mg/dL LDL Calculated 72 mg/dL Specimen Performing Laboratory Blood - Arm, [address] [address] Narrative Triglyceride Reference Range: Low Risk <150 [id number] High Risk 200-499 Very High Risk>=500 Cholesterol Reference Range: Low Risk <200 [id number] High Risk>240 HDL Cholesterol Reference Range: Low Risk >=60 High Risk <40 LDL Cholesterol Reference Range: Optimal<100 Near [id number] [id number] Hfse198-331 Very High >=190 MR abdomen without IV contrast MRCP (03/13/2017 11:33 AM) Specimen Performing Laboratory [employer] Narrative FINAL REPORT MRI of the abdomen, MRCP. Clinical [...] the cystic duct. No evidence of biliary dilatation is seen with the CBD measuring 3 mm. There is no choledocholithiasis noted. The pancreatic duct is normal in caliber. Visualized osseous structures demonstrate no focal rounded. IMPRESSION: 1. Findings consistent with pancreatitis. Lack of contrast limits assessment but is likely pseudocyst is seen in the pancreatic head region. There is also an area of fluid in the uncinate process, pseudocyst versus focal ductal dilatation. These could be followed up to ensure resolution and exclude other etiologies. 2. Suspected tiny gallstone or polyp in the gallbladder neck. No biliary dilatation or choledocholithiasis. Signed: Kiko Vee MD Report Verified Date/Time:03/13/2017 12:25:41 Reading Location: [address] Consult Reading Room Procedure Note Interface, External Ris In - 03/13/2017 12:27 PM [employer] FINAL REPORT MRI of the abdomen, MRCP. Clinical [...] the cystic duct. No evidence of biliary dilatation is seen with the CBD measuring 3 mm. There is no choledocholithiasis noted. The pancreatic duct is normal in caliber. Visualized osseous structures demonstrate no focal rounded. IMPRESSION: 1. Findings consistent with pancreatitis. Lack of contrast limits assessment but is likely pseudocyst is seen in the pancreatic head region. There is also an area of fluid in the uncinate process, pseudocyst versus focal ductal dilatation. These could be followed up to ensure resolution and exclude other etiologies. 2. Suspected tiny gallstone or polyp in the gallbladder neck. No biliary dilatation or choledocholithiasis. Signed: Kiko Vee MD Report Verified Date/Time: 03/13/2017 12:25:41 Reading Location: [address] Consult Reading Room Manual Differential (03/11/2017 5:44 AM)Only the most recent of2 resultswithin the time period is included. Component Value Ref Range Total Counted WBC Morphology Normal Platelet Morphology Normal RBC Morphology Normal Specimen Performing Laboratory Blood - Line, Venous [address] [address] Prothrombin time/INR (03/09/2017 9:54 AM) Component Value Ref Range Protime 14.3 11.7 - 14.7 seconds INR 1.1 <=5.9 Specimen Performing Laboratory Blood [address] [address] Narrative RECOMMENDED COUMADIN/WARFARIN INR THERAPY RANGES STANDARD DOSE: 2.0 - 3.0 Includes: PROPHYLAXIS for venous thrombosis, systemic embolization; TREATMENT for venous thrombosis and/or pulmonary embolus. HIGH RISK: Target INR is 2.5-3.5 for patients with mechanical heart valves. Triglycerides (03/09/2017 9:54 AM) Component Value Ref Range Triglycerides 58 mg/dL Specimen Performing Laboratory Blood [address] [address] Narrative TRIGLYCERIDE REFERENCE RANGE Low Risk<150 Borderline Risk 150-199 High [id number] Very High Risk >=500 Magnesium (03/09/2017 9:54 AM) Component Value Ref Range Magnesium 1.4 (L) 1.6 - 2.6 mg/dL Specimen Performing Laboratory Blood [address] [address] after 06/24/2016
[2017-06-25] MEDS ORDERED: PROMETHAZINE 25 MG/ML VIAL ONE (07:08)
[2017-06-25] MEDS ORDERED: MEPERIDINE HCL 50 MG/ML AMP ONE (07:08)
[2017-06-25] MEDS ORDERED: NA CHLORIDE 0.9% 1,000 ML ONE (07:09)
[2017-06-25 07:12] LABS: Absolute Lymphocytes (CBC) 2.1 K/uL (0.7-4.9); Absolute Monocytes 0.6 K/uL (0.1-1.3); Absolute Neutrophil 3.9 K/uL (1.8-8.0); Basophils % 1.1 % (0-1.3); Eosinophils % 1.6 % (0-4.4); Hematocrit 43.3 % (39.6-49.0); Lymphocytes % 31.4 % (15.3-44.8); MCH 30.8 pg (27.0-35.0); MCV 91.3 fL (80-100); MPV 7.7 fL (7.6-11.3); Monocytes % 8.7 % (3.3-12.3); RBC Red Blood Cell Count 4.74 M/uL (4.33-5.43)
[2017-06-25 08:06] LABS: ALT/SGPT 14 IU/L (10-60); AST/SGOT 21 IU/L (10-42); Albumin 4.3 g/dL (3.2-5.5); Alkaline Phosphatase 57 IU/L (42-121); BUN Blood Urea Nitrogen 6 mg/dL (6-20); Bicarbonate 24 mEq/L (21-31); Bilirubin Direct 0.2 mg/dL (0-0.2); Bilirubin Total 1.2 mg/dL (0.3-1.2); Glomerular Filtration Rate > 90 mL/min (=/>90); Glucose Level 104 mg/dL (65-120); Protein, Total 7.4 g/dL (6.0-8.3); Sodium Level 140 mEq/L (135-145)
[2017-06-25 08:17] LABS: Alcohol Serum/Plasma 26 mg/dl
--- NOTE | 2017-06-25 08:27 | EDPHYS ---
Physician Documentation [facility] Name: Ankit Rosales Age: 36 yrs Sex: Male : 1980 Arrival Date: 06/25/2017 Time: 06:29 Bed 13 Private MD: ED Physician Jaxon Rothman HPI: 06/25 06:47 This 36 yrs old Male presents to ER via Ambulatory with complaints of jr8 Abdominal Pain. 06:47 The patient presents with abdominal pain in the upper abdomen. Onset: The jr8 symptoms/episode began/occurred acutely, yesterday. The symptoms do not radiate. Associated signs and symptoms: Pertinent positives: nausea. The symptoms are described as sharp. Modifying factors: The symptoms are alleviated by nothing, the symptoms are aggravated by alcohol. Severity of pain: At its worst the pain was moderate in the emergency department the pain is unchanged. The patient has experienced similar episodes in the past, several times. The patient has been recently seen at the [facility] Emergency Department, yesterday, for similar complaints labs were performed, was given a prescription for pain medications, was given a prescription for an antiemetic. Patient came back to ED for pancreatitis again. Stated that about 4 this morning came back with worsening of pain. Stated that he felt better last night upon discharge. Had gone home and went to bed. Woke up with the pain again . Historical: - Allergies: 06:38 cant take tylenol due to liver issues; bb 06:38 NKDA; bb - Home Meds: 06:38 None [Active]; bb - PMHx: 06:38 Cirrhosis; GALLSTONES; left leg DVT; Pancreatitis; bb - PSHx: 06:38 None; bb - Immunization history:: Adult Immunizations up to date. - Social history:: Smoking status: Patient uses tobacco products, smokes one pack cigarettes per day. Patient uses alcohol, on a daily basis. Patient/guardian denies using street drugs. ROS: 06:47 Eyes: Negative for injury, pain, redness, and discharge, ENT: Negative for injury, jr8 pain, and discharge, Neck: Negative for injury, pain, and swelling, Cardiovascular: Negative for chest pain, palpitations, and edema, Respiratory: Negative for shortness of breath, cough, wheezing, and pleuritic chest pain, Back: Negative for injury and pain, MS/Extremity: Negative for injury and deformity, Skin: Negative for injury, rash, and discoloration, Neuro: Negative for headache, weakness, numbness, tingling, and seizure. 06:47 Abdomen/GI: Positive for abdominal pain, nausea, Negative for diarrhea, constipation, abdominal cramps, abdominal distension, anorexia, dysphagia, hematemesis, black/tarry stool, rectal pain, rectal bleeding, bowel incontinence, flatulence. Exam: 06:47 Cardiovascular: Regular rate and rhythm with a normal S1 and S2. No gallops, murmurs, jr8 or rubs. Normal PMI, no JVD. No pulse deficits. Respiratory: Lungs have equal breath sounds bilaterally, clear to auscultation and percussion. No rales, rhonchi or wheezes noted. No increased work of breathing, no retractions or nasal flaring. Back: No spinal tenderness. No costovertebral tenderness. Full range of motion. Skin: Warm, dry with normal turgor. Normal color with no rashes, no lesions, and no evidence of cellulitis. MS/ Extremity: Pulses equal, no cyanosis. Neurovascular intact. Full, normal range of motion. Neuro: Awake and alert, GCS 15, oriented to person, place, time, and situation. Cranial nerves II-XII grossly intact. Motor strength 5/5 in all extremities. Sensory grossly intact. Cerebellar exam normal. Normal gait. 06:47 Abdomen/GI: Inspection: abdomen appears normal, Bowel sounds: active, all quadrants, Palpation: soft, in all quadrants, moderate abdominal tenderness, in the epigastric area, right upper quadrant and left upper quadrant, mass, is not appreciated, rebound tenderness, is not appreciated, voluntary guarding, is not appreciated, involuntary guarding, is not appreciated, no appreciated organomegaly, Indicators: McBurney's point is not tender, Romero's sign is negative, Rovsing's sign is negative, Liver: no appreciated palpable abnormalities, tenderness, is not appreciated. Vital Signs: 06:38 BP 137 / 94; Pulse 67; Resp 22 S; Temp 97.7(O); Pulse Ox 100% on R/A; Weight 61.23 kg bb (R); Height 5 ft. 6 in. (167.64 cm) (R); Pain 10/10; 07:37 BP 145 / 94; Pulse 71; Resp 18; Pulse Ox 100% on R/A; ph 08:30 BP 142 / 95; Pulse 73; Resp 18; Pulse Ox 98% on R/A; Pain 10/10; ph 09:29 BP 133 / 91; Pulse 74; Resp 18; Temp 97.9; Pulse Ox 98% on R/A; ph 06:38 Body Mass Index 21.79 (61.23 kg, 167.64 cm) bb MDM: 06:38 Patient medically screened. [facility] 08:25 Data reviewed: vital signs, nurses notes, lab test result(s), and as a result, I will jr8 admit patient. Data interpreted: Pulse oximetry: on room air is 100 %. Interpretation: normal. Counseling: I had a detailed discussion with the patient and/or guardian regarding: the historical points, exam findings, and any diagnostic results supporting the discharge/admit diagnosis, lab results, the need for further work-up and treatment in the hospital. Physician consultation: Madan Basurto MD was called at 08:26, was contacted at 08:26, regarding admission, to the medical/surgical unit. consult, patient's condition, and will see patient. 06/25 06:39 Order name: CBC with Diff [facility] 06/25 06:39 Order name: Basic Metabolic Panel [facility] 06/25 06:39 Order name: Alcohol Level [facility] 06/25 06:39 Order name: Lipase [facility] 06/25 06:39 Order name: LFT's [facility] 06/25 07:13 Order name: CBC with Automated Diff; Complete Time: 07:20 EDKY 06/25 08:23 Order name: Basic Metabolic Panel; Complete Time: 09:00 EDKY 06/25 08:23 Order name: Liver (Hepatic) Function; Complete Time: 09:00 EDMS 06/25 08:23 Order name: Alcohol Serum/Plasma; Complete Time: 09:00 EDMS 06/25 08:59 Order name: Lipase; Complete Time: 09:00 EDMS 06/25 06:39 Order name: IV; Complete Time: 06:57 [facility] Administered Medications: 06:56 Drug: NS 0.9% 1000 ml Route: IV; Rate: 1000 ml; Site: right antecubital; ea 08:00 Follow up: Response: No adverse reaction; IV Status: Completed infusion ph 06:56 Drug: Demerol 50 mg Route: IVP; Site: right antecubital; ea 07:30 Follow up: Response: No adverse reaction; Pain is decreased ph 06:56 Drug: Phenergan 25 mg Route: IVP; Site: right antecubital; ea 07:30 Follow up: Response: No adverse reaction; Nausea is decreased ph 08:26 Drug: Demerol 25 mg Route: IVP; Site: right antecubital; ph 09:00 Follow up: Response: No adverse reaction; Pain is decreased ph 08:26 Drug: Zofran 4 mg Route: IVP; Site: right antecubital; ph 09:00 Follow up: Response: No adverse reaction; Nausea is decreased ph 09:54 Drug: morphine 4 mg Route: IVP; Site: right antecubital; dm5 10:05 Follow up: Response: No adverse reaction ph Disposition: 06/25/17 08:26 Hospitalization ordered by Madan Basurto for Inpatient Admission. Preliminary diagnosis is Acute pancreatitis. - Bed requested for Telemetry/MedSurg (Inpatient). - Status is Inpatient Admission. ph - Condition is Stable. - Problem is new. - Symptoms have improved. UTI on Admission? No Addendum: 06/29/2017 07:02 Co-signature as Attending Physician, Jaxon Rothman MD I agree with the assessment and k dr plan of care. Signatures: Dispatcher [employer] EDMS Maura Crocker Deana, RN RN dm5 Jaxon Rothman MD MD kdr Ballard, Brenda, RN RN bb Roszak, Josh, PA PA jr8 Vicky Long RN RN ph Antunez, Elena, RN RN ea
--- NOTE | 2017-06-25 08:27 | ER ---
Nurse's Notes [facility] Name: Ankit Rosales Age: 36 yrs Sex: Male : 1980 Arrival Date: 06/25/2017 Time: 06:29 Bed 13 Private MD: Diagnosis: Acute pancreatitis Presentation: 06/25 06:35 Presenting complaint: Patient states: he was here last night for abdominal pain and bb woke up at 0400 with "pancreatitis" states he is nauseous and was sweating, states he is trying to stop drinking alcohol but drank yesterday. Transition of care: patient was not received from another setting of care. Onset of symptoms was June 25, 2017. Care prior to arrival: None. 06:35 Method Of Arrival: Ambulatory bb 06:35 Acuity: KRAIG 4 bb 08:30 Acuity: KRAIG 3 ph Historical: - Allergies: 06:38 cant take tylenol due to liver issues; bb 06:38 NKDA; bb - Home Meds: 06:38 None [Active]; bb - PMHx: 06:38 Cirrhosis; GALLSTONES; left leg DVT; Pancreatitis; bb - PSHx: 06:38 None; bb - Immunization history:: Adult Immunizations up to date. - Social history:: Smoking status: Patient uses tobacco products, smokes one pack cigarettes per day. Patient uses alcohol, on a daily basis. Patient/guardian denies using street drugs. Screenin:42 Abuse screen: Denies threats or abuse. Nutritional screening: No deficits noted. ea Tuberculosis screening: No symptoms or risk factors identified. Fall Risk None identified. Assessment: 06:40 General: Appears uncomfortable, Behavior is restless, Smells of alcohol. Pain: ea Complains of pain in right upper quadrant Pain currently is 10 out of 10 on a pain scale. Quality of pain is described as sharp, Pain began 4 AM. Neuro: Level of Consciousness is awake, alert, obeys commands, Oriented to person, place, time, situation. Cardiovascular: Patient's skin is warm and dry. Respiratory: Airway is patent Respiratory effort is even, unlabored, Respiratory pattern is regular, symmetrical. GI: Bowel sounds present X 4 quads. Abd is soft Abdomen is tender to palpation in right upper quadrant. : No signs and/or symptoms were reported regarding the genitourinary system. Derm: Skin is pink, warm \\T\\ dry. 07:32 Reassessment: Patient appears in no apparent distress at this time. Patient and/or ph family updated on plan of care and expected duration. Pain level reassessed. Patient is alert, oriented x 3, equal unlabored respirations, skin warm/dry/pink. Pt resting quietly, awaiting lab results. 08:27 Reassessment: Patient appears in no apparent distress at this time. Patient and/or ph family updated on plan of care and expected duration. Pain level reassessed. Patient is alert, oriented x 3, equal unlabored respirations, skin warm/dry/pink. Pt c/o abdominal pain 10/10 and nausea, ERP notified, see MAR, awaiting admission orders and room assigment. 09:41 Reassessment: Patient appears in no apparent distress at this time. Patient and/or ph family updated on plan of care and expected duration. Pain level reassessed. Patient is alert, oriented x 3, equal unlabored respirations, skin warm/dry/pink. Report called to MIRYAM Hernández. Vital Signs: 06:38 BP 137 / 94; Pulse 67; Resp 22 S; Temp 97.7(O); Pulse Ox 100% on R/A; Weight 61.23 kg bb (R); Height 5 ft. 6 in. (167.64 cm) (R); Pain 10/10; 07:37 BP 145 / 94; Pulse 71; Resp 18; Pulse Ox 100% on R/A; ph 08:30 BP 142 / 95; Pulse 73; Resp 18; Pulse Ox 98% on R/A; Pain 10/10; ph 09:29 BP 133 / 91; Pulse 74; Resp 18; Temp 97.9; Pulse Ox 98% on R/A; ph 06:38 Body Mass Index 21.79 (61.23 kg, 167.64 cm) bb ED Course: 06:29 Patient arrived in ED. es 06:37 Triage completed. bb 06:37 Rachid Rojas PA is PHCP. jr8 06:37 Jaxon Rothman MD is Attending Physician. jr8 06:38 Pippa Rush RN is Primary Nurse. ea 06:38 Arm band placed on Patient placed in an exam room, on a stretcher, on pulse oximetry. bb 06:50 Inserted saline lock: 18 gauge in right antecubital area, using aseptic technique. oe Blood collected. 06:57 Patient has correct armband on for positive identification. Placed in gown. Bed in low ea position. Call light in reach. Side rails up X2. 08:26 Madan Basurto MD is Hospitalizing Provider. jr8 09:55 No provider procedures requiring assistance completed. Patient admitted, IV remains in ph place. Administered Medications: 06:56 Drug: NS 0.9% 1000 ml Route: IV; Rate: 1000 ml; Site: right antecubital; ea 08:00 Follow up: Response: No adverse reaction; IV Status: Completed infusion ph 06:56 Drug: Demerol 50 mg Route: IVP; Site: right antecubital; ea 07:30 Follow up: Response: No adverse reaction; Pain is decreased ph 06:56 Drug: Phenergan 25 mg Route: IVP; Site: right antecubital; ea 07:30 Follow up: Response: No adverse reaction; Nausea is decreased ph 08:26 Drug: Demerol 25 mg Route: IVP; Site: right antecubital; ph 09:00 Follow up: Response: No adverse reaction; Pain is decreased ph 08:26 Drug: Zofran 4 mg Route: IVP; Site: right antecubital; ph 09:00 Follow up: Response: No adverse reaction; Nausea is decreased ph 09:54 Drug: morphine 4 mg Route: IVP; Site: right antecubital; dm5 10:05 Follow up: Response: No adverse reaction ph Outcome: 08:26 Decision to Hospitalize by Provider. jr8 09:59 Patient left the ED. ph 09:59 Admitted to Med/surg accompanied by tech, via wheelchair, with chart. ph 09:59 Condition: stable 09:59 Instructed on the need for admit. Signatures: Hina Cazares RN RN dm5 Flaca Alonso Brenda RN RN Rachid Rock PA PA jr8 Vicky Long RN RN Leonard Tamayo Elena, RN RN ea
[2017-06-25] MEDS ORDERED: MEPERIDINE HCL 25 MG/0.5 ML ONE (08:41)
[2017-06-25] MEDS ORDERED: ONDANSETRON 4 MG/2 ML VIAL ONE (08:41)
[2017-06-25] MEDS ORDERED: ZOLPIDEM TARTRATE 5 MG TABLET PO PRN (08:51)
[2017-06-25] MEDS ORDERED: MORPHINE 4 MG/ML SYR IV PRN (08:52)
[2017-06-25 08:59] LABS: Lipase 740 U/L (22-51)
[2017-06-25] MEDS ORDERED: ENOXAPARIN 40 MG/0.4 ML SQ SCH (09:00)
[2017-06-25] MEDS ORDERED: MORPHINE 4 MG/ML SYR ONE (10:10)
[2017-06-25] MEDS: Ringers Lactate 1,000 ML IV SCH ×2 (10:55→18:34)
[2017-06-25] MEDS ORDERED: HYDROMORPHONE HCL 1 MG/ML INJ IV PRN (11:53)
[2017-06-25] MEDS ORDERED: PROMETHAZINE 25 MG/ML VIAL IV PRN (11:56)
[2017-06-25] MEDS ORDERED: MEPERIDINE HCL 25 MG/0.5 ML IV PRN (11:56)
--- NOTE | 2017-06-25 12:03 | P.HP ---
Certification for Inpatient Patient admitted to: Inpatient With expected LOS: >2 Midnights Patient will require the following post-hospital care: None Practitioner: I am a practitioner with admitting privileges, knowledge of patient current condition, hospital course, and medical plan of care. Services: Services provided to patient in accordance with Admission requirements found in Title 42 Section 412.3 of the Code of Federal Regulations Patient History Date of Service: 06/25/17 Reason for admission: Abdominal pain History of Present Illness: This is 36-year-old gentleman with a history of buccal abuse portal vein thrombosis diagnosed in January 2017 as well as acute pancreatitis complicated with pseudocyst of pancreas who present to emergency room because of acute onset of epigastric abdominal pain 1st 3 days a social with nausea vomiting. The patient rated pain as a 10 and 1-10 scale. The patient denies fever chills diarrhea. The patient with diagnosis of portal vein thrombosis in January 2017 and he is on Eliquis for anticoagulation Allergies No Known Drug Allergies Allergy (Verified 06/25/17 11:51) Unknown acetaminophen [From Tylenol] Adverse Reaction (Severe, Verified 06/25/17 11:51) Unknown Home Medications: Apixaban [Eliquis] 2.5 mg PO BID #60 tablet 02/25/17 - Past Medical/Surgical History Diabetic: No -: alcohol abuse -: alcoholic pancreatitis -: pancreatic pseudocyst - Social History Alcohol use: Yes CD- Drugs: No Caffeine use: No Review of Systems 10-point ROS is otherwise unremarkable Physical Examination - Vital Signs Temperature: 97.9 F Blood Pressure: 133/91 Pulse: 74 Respirations: 18 - Physical Exam General: Alert, In no apparent distress HEENT: Atraumatic, PERRLA, Mucous membr. moist/pink, EOMI, Sclerae nonicteric Neck: Supple, 2+ carotid pulse no bruit, No LAD, Without JVD or thyroid abnormality Respiratory: Clear to auscultation bilaterally, Normal air movement Cardiovascular: Regular rate/rhythm, Normal S1 S2 Gastrointestinal: Tenderness Musculoskeletal: No tenderness Integumentary: No rashes Neurological: Normal gait, Normal speech, Normal strength at 5/5 x4 extr, Normal tone, Normal affect Lymphatics: No axilla or inguinal lymphadenopathy - Studies Laboratory Data (last 24 hrs) 06/25/17 06:45: Sodium 140, Potassium 4.0, BUN 6, Creatinine 0.57 L, Glucose 104 , Total Bilirubin 1.2, AST 21, ALT 14, Alkaline Phosphatase 57, Lipase 740 H 06/25/17 06:45: WBC 6.8 D, Hgb 14.6, Hct 43.3, Plt Count 299 Assessment and Plan - Problems (Diagnosis) (1) Acute pancreatitis Onset Date: 02/18/17 Current Visit: Yes Status: Acute Qualifiers: Pancreatitis type: alcohol induced Acute pancreatitis complication: no infection or necrosis Qualified Code(s): K85.20 - Alcohol induced acute pancreatitis without necrosis or infection (2) Alcohol abuse Onset Date: 02/18/17 Current Visit: Yes Status: Chronic (3) Hepatic cirrhosis Onset Date: 02/18/17 Current Visit: Yes Status: Chronic Qualifiers: Hepatic cirrhosis type: alcoholic cirrhosis Ascites presence: without ascites Qualified Code(s): K70.30 - Alcoholic cirrhosis of liver without ascites (4) Nicotine dependence Current Visit: Yes Status: Chronic Qualifiers: Nicotine product type: cigarettes Substance use status: uncomplicated Qualified Code(s): F17.210 - Nicotine dependence, cigarettes, uncomplicated (5) Portal vein thrombosis Current Visit: Yes Status: Chronic (6) Pseudocyst of pancreas Onset Date: 04/28/17 Current Visit: Yes Status: Chronic - Plan --NPO --intravenous fluid replacement --Demerol for pain control --Phenergan for nausea vomiting --continue Eliquis for portal vein thrombosis --consult General surgery --consult deputy sheriff bailiff for portal vein thrombosis and screening for esophageal gastric varices and assessment of risk of GI bleeding ceased patient is on Eliquis and --DT prophylaxis with Librium --smoke cessation education - Advance Directives Does patient have a Living Will: No Does patient have a Durable POA for Healthcare: No
[2017-06-25] MEDS: chlordiazePOXIDE HCl 25 MG CAP PO SCH ×3 (12:23→23:54)
[2017-06-25 12:29] VITALS: BMI 25.7
--- NOTE | 2017-06-25 12:53 | RAD REPORT ---
EXAM DESCRIPTION: US - Abdomen Exam Limited - 06/25/2017 12:37 pm CLINICAL HISTORY: Abdominal pain. COMPARISON: 06/24/2017 FINDINGS: The gallbladder demonstrates no gallstones. No pericholecystic fluid or gallbladder wall t hickening. The common bile duct is normal measuring 3 mm. The liver demonstrates 12 x 9 mm echogenic lesion in the right lobe which could be a small hemangioma . IMPRESSION: Negative gallbladder/ biliary tree findings. Small echogenic lesion in the liver suspected represent a small hemangioma.
[2017-06-25] MEDS: MORPHINE 4 MG/ML SYR IV PRN ×2 (16:05→21:11)
[2017-06-25] MEDS ORDERED: NALOXONE 0.4 MG/ML VIAL IV PRN (17:54)
[2017-06-25] MEDS: MORPHINE/NS PCA 50 MG/50 ML PCA.SYRING IV PRN (18:25)
[2017-06-25] MEDS: APIXABAN 2.5 MG TABLET PO SCH (21:04)
[2017-06-26] MEDS: Ringers Lactate 1,000 ML IV SCH ×3 (00:58→18:03)
[2017-06-26] MEDS: MORPHINE 4 MG/ML SYR IV PRN ×2 (01:42→05:27)
[2017-06-26] MEDS: chlordiazePOXIDE HCl 25 MG CAP PO SCH ×4 (05:56→23:30)
[2017-06-26 06:29] LABS: ALT/SGPT 11 IU/L (10-60); AST/SGOT 16 IU/L (10-42); Albumin 3.9 g/dL (3.2-5.5); Alkaline Phosphatase 61 IU/L (42-121); BUN Blood Urea Nitrogen 8 mg/dL (6-20); Bicarbonate 27 mEq/L (21-31); Bilirubin Total 1.5 mg/dL (0.3-1.2); Glomerular Filtration Rate > 90 mL/min (=/>90); Glucose Level 97 mg/dL (65-120); HDL Cholesterol 51 mg/dL (27-67); LDL Cholesterol, Calculated 72 (<130); Potassium 3.8 mEq/L (3.6-5.0); Protein, Total 6.8 g/dL (6.0-8.3); Sodium Level 135 mEq/L (135-145)
[2017-06-26 07:08] LABS: Lipase 815 U/L (22-51)
[2017-06-26] MEDS: MORPHINE/NS PCA 50 MG/50 ML PCA.SYRING IV PRN ×2 (08:17→20:29)
[2017-06-26] MEDS: APIXABAN 2.5 MG TABLET PO SCH (08:28)
[2017-06-26] MEDS: MORPHINE 2 MG/ML SYR IV PRN ×4 (10:52→23:30)
--- NOTE | 2017-06-26 11:39 | RAD REPORT ---
EXAM DESCRIPTION: CT - Liver Abd Pancreas W Wo - 06/26/2017 11:24 am CLINICAL HISTORY: Alcoholic pancreatitis with pseudocyst, patient provided history of cirrhosis, gal lstones, left leg DVT and pancreatitis COMPARISON: CT imaging June 24, ultrasound examination June 25 TECHNIQUE: Precontrast imaging of the abdomen was performed at 3 millimeter thick axial imaging. Bip hasic helical CT imaging was obtained following nonionic IV contrast also at 3 millimeter thick image s. A 3 minutes delayed acquisition also performed. FINDINGS: No new or progressive lung base finding. No pericardial effusion. Previously detailed 5 centimeter pancreatic head pseudocyst is again identified. There is some debris present within the posterior or dependent portion of this pseudocyst. No wall calcification or solid mass confirmed. There are several small pseudo cyst surrounding this dominant mass. Dilated pancreatic duct is again identified. A solid mass of the pancreas is not seen. No biliary valerio e dilatation identified. There is a calcification in the pancreatic parenchyma right lateral margin. This is not suspected to be a duct stone. There is a substantial amount of fluid and edematous/inflammatory stranding in the peripancreatic fat ty tissues. This fluid pattern extends into each pericolic gutter and there is fluid along the liver capsule. No focal finding within the prominent liver. No splenomegaly or focal splenic finding. No intrahepati c biliary tree dilatation. No gallbladder dilation. There is hyperdensity within the lumen that is be lieved to be vicarious excretion of contrast from either the current study or the June 24 study. No renal or adrenal abnormality. Retained fluid is present in the well filled but nondilated stomach. No secondary gastric wall thicke zion and no gastric mass. The dilated duodenal C-loop seen on June 24 study has resolved or mostly r esolved. There is no remnant proximal small bowel dilatation. IMPRESSION: Approximately 5 centimeter pancreatic head pseudocyst with several much smaller pseudocy sts in the surrounding pancreatic parenchyma. Continued dilation of the pancreatic duct suspected to be due to the extrinsic compression by the lar ge pseudocyst. No mass seen. Stricture would be possible. No biliary tree dilatation. Since June 24 there has been substantial development of peripancreatic fluid and inflammatory strand ing. Fluid continues along the liver capsule and into each pericolic gutter.
--- NOTE | 2017-06-26 13:01 | CON ---
Reason For Consultation: Abdominal pain, nausea, vomiting. History Of Present Illness: Mr. Rosales is a 36-year-old gentleman with history of alcohol abuse and a lcoholic pancreatitis leading to severe pancreatitis and splenic vein thrombosis. He comes to the [facility] once again, after drinking alcohol and episodes of abdominal pain, similar to his past pancrea titis with nausea and vomiting. After coming to the hospital, symptoms are somewhat better. However , radiologic study also shows that he might have portal vein thrombosis. There is no history of annie temesis, melena, or hematochezia. Denies any odynophagia, dysphagia. He denies any fever, chills. His last alcohol drink was yesterday when the pain started and that mad e him to stop. Past Medical History: As elaborated above. Past Surgical History: As elaborated above. Family History: Denies any gastrointestinal malignancy in the family. Social History: As above, in addition to smoking and recreational drug use. Review of Systems: General: No fever, chills. No weight loss. No weight gain. GI: As elaborated above. Hematologic: Denies any history of jaundice, hepatitis, any other liver affliction. Other than stat ed above. Pulmonary: No shortness of breath, cough, or expectoration. Cardiac: No palpitation. No heart murmur. No orthopnea or dyspnea. Genitourinary: No active complaint. Neuropsychiatric: None. Neuroendocrine: None. No arthralgia, myalgia. No stiffness. Physical Examination: General: Young male at this time. Other than pain. No other acute distress noted. Hemodynamic res piratory profile within normal range. HEENT: Atraumatic, normocephalic. Oropharyngeal area is clear. Neck: Supple. No lymphadenopathy. No temporal wasting. Pupillary reflexes are normal. Neck: Supple. No lymphadenopathy. Trachea is central in position. Chest: Clear to auscultation, percussion. Cardiovascular: Normal S1, S2. No S3, no S4. Abdomen: Soft, however, extremely tender, especially in the epigastric area or at least subjectively . Bowel sounds are excellent. No rebound tenderness. No hepatomegaly. No splenomegaly. No succus puja splash. No deformity no ascites. Extremities: Upper and lower extremities are normal, symmetrical. No selective wasting noted. Dermatologic: Examination is normal on the exposed upper and lower extremities and on the back, also in anterior abdominal wall. Neurologic: Alert, oriented x3. Intact memory, mentation, and judgment. Can move all of his extrem ities without any other problem. Diagnostic Data: Radiologic data reviewed, analyzed. Discussed with the patient as above. Impression/plan/recommendation: He is a young gentleman with history of excessive use of alcohol and alcoholic pancreatitis. At this time, he is having another exacerbation. Splenic vein thrombosis and portal vein thrombosis probably as an extension of his severe disease. H owever, he refuses to give up any alcohol against any medical advice. Therefore the main treatment i s the treatment of his etiology, and I have repeatedly discussed with him, which I have emphasized to him again. So treatment is: 1.Stopping alcohol. 2.Stopping alcohol. 3.Stopping alcohol. 4.Other supportive treatment including IV fluid, fluid electrolyte management, and pain control. However at the end of the discussion, I see no motivation for him to follow medical advice like in e past. For the time being, I will also start him on diet. I will sign off the case, however, if you need my help, call us immediately. GONZALEZ/JAMES Voice ID: [id number] Report ID: [id number]
--- NOTE | 2017-06-26 14:29 | CON ---
Date of Consultation: 06/26/2017 Brief History Of Present Illness: The patient is a 36-year-old male, known to me with a [facility] medical history of significant alcohol abuse. He was admitted at least 2-3 other times in the [facility] with alcoholic pancreatitis and returns with the same said complaints. He was noted to have pancre atic phlegmon consistent with a forming pseudocyst on the last admission and he has had again resumpt ion of his complaints as he states he has restarted his alcohol abuse. He drinks many beers, at [facility], he cannot remember and he now has 2-3 days of abdominal pain in the epigastrium, right upper quadrant, and left upper quadrant with radiation to his back. His intensity was 7/10, very similar to his past. He denies fever, chills, nausea associated with pain only, and denies any chest pain, s hortness of breath, dizziness, or any other constitutional complaints. Past Medical History: Significant for alcohol abuse, alcoholic pancreatitis, and a pseudocyst of the pancreas. Past Surgical History: Negative. Family History: Noncontributory. Social History: He is a heavy tobacco user and an over pack a day, and he has a significant current alcohol abuse history with beer. He denies recreational drug use. Review of Systems: A 10-point review of systems other than HPI, denies. Allergies: TO ACETAMINOPHEN. Medications: Home medications include tramadol and possibly Eliquis, but he has been noncompliant wi th that as he states finances are concerned at times. Physical Examination: Vital Signs: At the time of my examination, his blood pressure was 142/85, pulse is 108, respiratory rate 18, temperature 98.2. General: He is awake, alert, oriented. Psychiatric: He is appropriate and conversive. HEENT: Normocephalic. Sclerae anicteric. Mucous membranes are moist. Oropharynx clear. Neck: Supple. No JVD. Chest: Normal expansion and excursion. Cardiovascular: Regular rate and rhythm. Pulmonary: Clear to auscultation bilaterally. Abdomen: Soft with positive global tenderness to palpation worse in the epigastrium. No rebound. N o guarding. No focal peritonitis. No Rovsing signs. No Scott-Swift or Artie signs. Extremities: No clubbing, cyanosis, or edema. Skin: Warm and dry otherwise. Laboratory Data: Reveals a white blood cell count of 6.8, hemoglobin is 14.6, hematocrit of 43.3, pl atelet count is 299. His sodium is 135, potassium 3.8, chloride 100, carbon dioxide 27, BUN 8, creat inine 0.47, glucose is 97, calcium 9.1. Total bilirubin is 1.5. His AST is 16, ALT 11, alk phos is 61. His triglycerides were 63, cholesterol 136. Lipase was 815, up from 740 on admission. He had i maging performed, which was only an abdominal ultrasound, which was officially read as negative gallb ladder/biliary tree findings, small echogenic lesion of the liver suspect represents a small hemangio ma. Assessment And Plan: This is a 36-year-old male with history consistent with acute alcoholic pancrea titis, possibly pseudocyst. 1.IV fluid hydration. 2.N.p.o. status. 3.Serial abdominal exams. 4.Electrolyte correction. 5.I have engaged a social service worker to discuss alcohol cessation programs for the patient. 6.We will order a CT scan of abdomen and pelvis triple-phase for better evaluation of pancreas and p seudocyst, likely still present. 7.Continue medical management. Thank you for this interesting consult. I will follow along with you. YUDELKA Voice ID: [id number] Report ID: [id number]
--- NOTE | 2017-06-26 17:26 | P.PN ---
Subjective Date of Service: 06/26/17 Chief Complaint: Abdominal pain The patient's feel better with the INSPECTOR GLASS OR MIRROR pump morphine Physical Examination - Vital Signs Temperature: 97.0 F Blood Pressure: 146/87 Pulse: 103 Respirations: 18 Pulse Ox (%): 97 - Physical Exam General: Alert, In no apparent distress HEENT: Atraumatic, PERRLA, EOMI Neck: Supple, JVD not distended Respiratory: Clear to auscultation bilaterally, Normal air movement Cardiovascular: Regular rate/rhythm, Normal S1 S2 Gastrointestinal: Normal bowel sounds, No tenderness Musculoskeletal: No tenderness Integumentary: No rashes Neurological: Normal speech, Normal tone, Normal affect Lymphatics: No axilla or inguinal lymphadenopathy - Studies Medications List Reviewed: Yes Assessment And Plan - Current Problems (Diagnosis) (1) Acute pancreatitis Onset Date: 02/18/17 Current Visit: Yes Status: Acute Qualifiers: Pancreatitis type: alcohol induced Acute pancreatitis complication: no infection or necrosis Qualified Code(s): K85.20 - Alcohol induced acute pancreatitis without necrosis or infection (2) Alcohol abuse Onset Date: 02/18/17 Current Visit: Yes Status: Chronic (3) Hepatic cirrhosis Onset Date: 02/18/17 Current Visit: Yes Status: Chronic Qualifiers: Hepatic cirrhosis type: alcoholic cirrhosis Ascites presence: without ascites Qualified Code(s): K70.30 - Alcoholic cirrhosis of liver without ascites (4) Nicotine dependence Onset Date: 06/26/17 Current Visit: Yes Status: Chronic Qualifiers: Nicotine product type: cigarettes Substance use status: uncomplicated Qualified Code(s): F17.210 - Nicotine dependence, cigarettes, uncomplicated (5) Portal vein thrombosis Onset Date: 06/26/17 Current Visit: Yes Status: Chronic (6) Pseudocyst of pancreas Onset Date: 04/28/17 Current Visit: Yes Status: Chronic - Plan --NPO --continue intravenous fluid replacement --continue morphine INSPECTOR GLASS OR MIRROR for pain control --Phenergan for nausea vomiting --discontinue Eliquis for portal vein thrombosis --consult General surgery --consult coagulating bath operator for portal vein thrombosis and screening for esophageal gastric varices and assessment of risk of GI bleeding ceased patient is on Eliquis and --DT prophylaxis with Librium --smoke cessation education
[2017-06-26 18:07] LABS: RPR Titer ND
[2017-06-26 20:16] LABS: Urine Appearance CLEAR; Urine Blood NEGATIVE (NEG); Urine Color DK YELLOW; Urine Glucose NEGATIVE (NEG); Urine Protein TRACE (NEG); Urine Specific Gravity >=1.030 (1.005-1.030); Urine Urobilinogen 0.2 mg/dL (0.2-1.0); Urine pH 6.5 (5.0-7.0)
[2017-06-26 20:21] LABS: Urine Bilirubin NEGATIVE (NEG); Urine Microscopic Reflex ORDER UMIC
[2017-06-26 20:25] LABS: Urine Bacteria <20 /HPF (NONE SEEN); Urine Culture Reflex Order REFLEXED; Urine RBC <5 /HPF (NONE SEEN)
[2017-06-26 21:46] VITALS: O2SAT 96
[2017-06-27] MEDS: MORPHINE 2 MG/ML SYR IV PRN (03:37)
[2017-06-27] MEDS: Ringers Lactate 1,000 ML IV SCH ×3 (03:37→17:28)
[2017-06-27] MEDS: chlordiazePOXIDE HCl 25 MG CAP PO SCH (05:33)
[2017-06-27 05:48] LABS: ALT/SGPT 8 IU/L (10-60); AST/SGOT 14 IU/L (10-42); Albumin 3.4 g/dL (3.2-5.5); Alkaline Phosphatase 52 IU/L (42-121); BUN Blood Urea Nitrogen 7 mg/dL (6-20); Bicarbonate 26 mEq/L (21-31); Bilirubin Total 1.8 mg/dL (0.3-1.2); Glomerular Filtration Rate > 90 mL/min (=/>90); Glucose Level 55 mg/dL (65-120); Lipase 290 U/L (22-51); Potassium 3.4 mEq/L (3.6-5.0); Protein, Total 5.8 g/dL (6.0-8.3); Sodium Level 131 mEq/L (135-145)
[2017-06-27 05:56] LABS: Absolute Lymphocytes (CBC) 1.4 K/uL (0.7-4.9); Absolute Monocytes 0.9 K/uL (0.1-1.3); Absolute Neutrophil 8.1 K/uL (1.8-8.0); Basophils % 0.4 % (0-1.3); Eosinophils % 1.6 % (0-4.4); Hematocrit 37.5 % (39.6-49.0); Lymphocytes % 13.3 % (15.3-44.8); MCH 30.8 pg (27.0-35.0); MCV 91.7 fL (80-100); MPV 7.9 fL (7.6-11.3); Monocytes % 8.5 % (3.3-12.3); RBC Red Blood Cell Count 4.09 M/uL (4.33-5.43)
[2017-06-27 07:14] LABS: RPR (Rapid Plasma Reagin) NON-REACT (NON-REACT)
[2017-06-27] MEDS ORDERED: chlordiazePOXIDE HCl 5 MG CAP PO PRN (10:17)
--- NOTE | 2017-06-27 11:12 | P.PN ---
Subjective Date of Service: 06/27/17 Chief Complaint: Abdominal pain Subjective: Improving (Patient states he feels much better, tolerating diet well ) Physical Examination - Vital Signs Temperature: 98.7 F Blood Pressure: 118/57 Pulse: 108 Respirations: 16 Pulse Ox (%): 97 - Physical Exam General: Alert, In no apparent distress, Cooperative HEENT: Mucous membr. moist/pink Gastrointestinal: Other (soft, +TTP in epigastrium but improved from prior, no other changes in exam) Neurological: Normal gait, Normal speech - Studies Medications List Reviewed: Yes Assessment And Plan - Current Problems (Diagnosis) (1) Acute pancreatitis Onset Date: 02/18/17 Current Visit: Yes Status: Acute Plan: - low fat diet - ambulate with assist - wean pain meds as tolerated - will need terminal computer operator follow up for pseudocyst of pancreas - GI consult for possible intervention - will continue to follow Qualifiers: Pancreatitis type: alcohol induced Acute pancreatitis complication: no infection or necrosis Qualified Code(s): K85.20 - Alcohol induced acute pancreatitis without necrosis or infection (2) Pseudocyst of pancreas Onset Date: 04/28/17 Current Visit: Yes Status: Chronic
[2017-06-27] MEDS: MORPHINE 4 MG/ML SYR IV PRN ×3 (15:08→22:51)
--- NOTE | 2017-06-27 18:07 | P.PN ---
Subjective Date of Service: 06/27/17 Chief Complaint: Abdominal pain The patient's feel better today and [place] to discontinue the [facility] pump Physical Examination - Vital Signs Temperature: 100.0 F Blood Pressure: 133/66 Pulse: 114 Respirations: 18 Pulse Ox (%): 97 - Physical Exam General: Alert, In no apparent distress HEENT: Atraumatic, PERRLA, EOMI Neck: Supple, JVD not distended Respiratory: Clear to auscultation bilaterally, Normal air movement Cardiovascular: Regular rate/rhythm, Normal S1 S2 Gastrointestinal: Normal bowel sounds, No tenderness Musculoskeletal: No tenderness Integumentary: No rashes Neurological: Normal speech, Normal tone, Normal affect Lymphatics: No axilla or inguinal lymphadenopathy - Studies Medications List Reviewed: Yes Assessment And Plan - Current Problems (Diagnosis) (1) Acute pancreatitis Onset Date: 02/18/17 Current Visit: Yes Status: Acute Qualifiers: Pancreatitis type: alcohol induced Acute pancreatitis complication: no infection or necrosis Qualified Code(s): K85.20 - Alcohol induced acute pancreatitis without necrosis or infection (2) Alcohol abuse Onset Date: 02/18/17 Current Visit: Yes Status: Chronic (3) Hepatic cirrhosis Onset Date: 02/18/17 Current Visit: Yes Status: Chronic Qualifiers: Hepatic cirrhosis type: alcoholic cirrhosis Ascites presence: without ascites Qualified Code(s): K70.30 - Alcoholic cirrhosis of liver without ascites (4) Nicotine dependence Onset Date: 06/26/17 Current Visit: Yes Status: Chronic Qualifiers: Nicotine product type: cigarettes Substance use status: uncomplicated Qualified Code(s): F17.210 - Nicotine dependence, cigarettes, uncomplicated (5) Portal vein thrombosis Onset Date: 06/26/17 Current Visit: Yes Status: Chronic (6) Pseudocyst of pancreas Onset Date: 04/28/17 Current Visit: Yes Status: Chronic - Plan The patient is improving clinically --NPO --continue intravenous fluid replacement --start morphine as needed --Phenergan for nausea vomiting --off Eliquis for portal vein thrombosis; hypercoagulable status workup is in progress --consult General surgery
[2017-06-27] MEDS: POTASSIUM 25 MEQ EFFERV TAB PO SCH (20:22)
[2017-06-28] MEDS: Ringers Lactate 1,000 ML IV SCH ×3 (01:00→08:36)
[2017-06-28] MEDS: MORPHINE 4 MG/ML SYR IV PRN ×2 (02:58→07:04)
[2017-06-28 05:09] LABS: ALT/SGPT 8 IU/L (10-60); AST/SGOT 14 IU/L (10-42); Albumin 3.2 g/dL (3.2-5.5); Alkaline Phosphatase 48 IU/L (42-121); Bicarbonate 27 mEq/L (21-31); Bilirubin Total 1.4 mg/dL (0.3-1.2); Glomerular Filtration Rate > 90 mL/min (=/>90); Glucose Level 79 mg/dL (65-120); Lipase 66 U/L (22-51); Potassium 3.6 mEq/L (3.6-5.0); Protein, Total 5.8 g/dL (6.0-8.3); Sodium Level 137 mEq/L (135-145)
[2017-06-28 05:10] LABS: BUN Blood Urea Nitrogen < 5 mg/dL (6-20)
[2017-06-28] MEDS: POTASSIUM 25 MEQ EFFERV TAB PO SCH (08:36)
[2017-06-28 09:48] VITALS: BP 118/63; TEMP 99.1
--- NOTE | 2017-06-29 10:29 | DS ---
Date of Discharge: 06/28/2017 Discharge Diagnoses: 1.Acute pancreatitis. 2.Noncompliance. 3.Alcohol abuse. 4.Portal vein thrombosis. 5.Liver cirrhosis. 6.Pseudocyst of the pancreas. 7.Smoking or tobacco abuse. 8.Anemia. Consults: GI and General Surgery. Procedures: 1.Ultrasound of the abdomen on admission day showed small echogenic lesion in the liver suspected fo r hemangioma. 2.A CAT scan of the abdomen on the 26 of June showed 5 cm pancreatic head pseudocyst with several much smaller pseudocyst surrounding pancreatic parenchyma. There is peripancreatic fluid and inflam matory stranding. History Of Present Illness: Please refer to Dr. Basurto's admission note. Hospital Course: Initially, the patient presented with epigastric abdominal pain. CAT scan of the a bdomen showed pancreatic pseudocyst. His lipase was elevated. At 0740 on admission, the patient was kept n.p.o. He was started on as needed for pain. Lipase dropped all the way down today to 66. The patient was seen by GI and General Surgery. General Surgery suggested long-term followu p without any intervention and he advised GI consult. GI advised the patient to quit alcohol. The p atient is very noncompliant and they did not recommend any intervention. The patient's lipase all th e way down to 66. He was placed on low-fat diet. He tolerated that very well. He will be discharge d today with p.r.n. medication with Vicodin. He was given only 30 tablets given his history of alcoh ol abuse. In terms of his portal vein thrombosis, he will be continued on Eliquis at 5 mg twice a da y as before. We will have that from the pharmacy. Hypercoagulable panel ordered by Dr. Basurto. None of the labs are back. He would need to follow up with his primary care physician and see what the r esult is. Probably, he should have the flow cytometry checked for PNH and JAK2 mutation also ordered as outpatient. The patient was advised strongly to stop alcohol, stop drinking. He will also be gi robbie Compazine for p.r.n. nausea. Discharge Condition: Fair. Discharge Diet: Low fat. Discharge Followup: Follow up with primary care physician in 1 week to discuss hypercoagulable panel . Follow up with General Surgery in 1 to 2 weeks. Follow up with GI as advised. Discharge Medications: Compazine 10 mg every 6 hours needed for nausea, total 40; Vicodin 1 tablet e very 6 hours p.r.n. pain, total 30; Eliquis 5 mg oral twice a day for 30 days, then refill from [facility] physician. Physical Examination: Vital Signs: Currently vital signs; blood pressure is 118/63, respiratory rate 16, pulse 99, tempera ture 99.1. General: He is alert and oriented x3, does not look in any distress. HEENT: Atraumatic, normocephalic. PERRLA. Oral mucosa is moist. Neck: Supple. No JVD. No carotid bruits. Chest: Clear to auscultation. Good air entry. Heart: Regular rate and rhythm. S1, S2 normal. No gallop or murmur. Abdomen: Soft. No masses. No hepatosplenomegaly. Positive bowel sounds. Extremities: No clubbing, cyanosis, or edema. No calf tenderness. Neurologic: Grossly intact. MINE/JAMES Voice ID: [id number] Report ID: [id number]
--- NOTE | 2017-06-29 15:48 | P.PN ---
Date of Service: 06/28/17 Patient seen and examined chart reviewed and case discussed with RN. Dr. Berg attending on the case. 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 Patient's symptoms had improved. Patient had been going down multiple times to smoke and was cleared for discharge. Patient did require pain medications and therefore Beryl was prescribed for 1 week. Patient to follow up with primary care physician and GI. Alcohol cessation. No driving or operating heavy machinery while on narcotics.
[2017-06-30 18:48] LABS: C-ANCA Anti-Proteinase 3 <1.0 AI (<1.0); P-ANCA Anti-Myeloperoxidase Ab <1.0 AI (<1.0)
[2017-06-30 23:57] LABS: Albumin, (SPE) 3.6 g/dL (3.8-4.8); Alpha-1-Globulins 0.3 g/dL (0.2-0.3); Alpha-2-Globulins 0.7 g/dL (0.5-0.9); Gamma Globulins 1.1 g/dL (0.8-1.7); INTERPRETATION REPORT
[2017-07-01 12:50] LABS: Protein C Antigen 82 % (70-140)
[2017-07-02 14:37] LABS: Prothrombin Gene Analysis Test REPORT
== END 2017-06-28 11:33 | disposition home or self-care (01) | DRG 438 ==
LOC: ER 06:26 → ERHOLD 08:28 → 2ND 09:54
PROVIDERS: ADMIT Internal Medicine Hematology & Oncology; ATTEND Internal Medicine Hematology & Oncology
DX: K85.20 Alcohol induced acute pancreatitis without necrosis or infection (principal); I81 Portal vein thrombosis; K86.3 Pseudocyst of pancreas; K70.30 Alcoholic cirrhosis of liver without ascites; F17.210 Nicotine dependence, cigarettes, uncomplicated; Z91.19 Patient's noncompliance with other medical treatment and regimen; D64.9 Anemia, unspecified
CPT/HCPCS: 36415; 74170; 76705; 80048; 80053; 80061; 80076; 80320; 81003; 81015; 81240; 81241; 82306; 82607; 82746; 83090; 83690; 84165; 85025; 85300; 85302; 85305; 85306; 86021; 86147; 86592; 87086; 87088; 96361; 96374; 96375; 99285; J1650; J2175; J2270; J2405; J2550; J7030; Q9967

== ENCOUNTER 2017-07-07 13:06 | Inpatient (IN) | payer SELFPAY ==
--- OUTSIDE RECORDS SUMMARY | 2017-07-07 13:08 | XMS REPORT | Clinical Summary ---
:1980 Author Organization [facility] Address [address] [place] [address] Phone Care Team Providers Name Role Phone [...] Anesthesia Event Gastroenterology Dorota Cortes MD 05/13/2017 [facility] Alcohol-induced - Encounter Medicine MD Ulysses acute pancreatitis, 05/20/2017 Rafaela Samson, unspecified MD complication Diomedes Alvarado status;Alcohol MD Lul abuse;Cystic mass of pancreas;Smoker;Thr ombocytosis (HCC);Alcohol-induc ed acute pancreatitis without infection or necrosis;Smoking 03/13/2017 Procedure Pass Gastroenterology 03/11/2017 Procedure Pass Gastroenterology 03/10/2017 Anesthesia Event Gastroenterology Юлия Crump MD 03/09/2017 [facility] Internal [facility] Alcohol - Encounter Medicine MD Araceli abuse;Cystic mass 03/14/2017 Pavel Garcia MD pancreas;Hypokalemi Quyen, a;Alcohol-induced MD Yaneth acute pancreatitis, unspecified complication status;Portal vein thrombosis after 07/06/2016 Social History Tobacco Use Types Packs/Day Years Used Date Current Every Day Smoker Smokeless Tobacco: Never Used Sex Assigned at Date Recorded Not on file Last Filed Vital Signs Vital Sign Reading Time Taken Blood Pressure 124/78 05/20/2017 11:36 AM [facility] Pulse 84 05/20/2017 11:36 AM [facility] Temperature 35.7 C (96.2 F) 05/20/2017 11:36 AM [facility] Respiratory Rate 18 05/20/2017 11:36 AM [facility] Oxygen Saturation 98% 05/20/2017 11:36 AM [facility] Inhaled Oxygen Concentration - - Weight 57.1 kg (125 lb 12.8 oz) 05/13/2017 8:07 PM [facility] Height 167.6 cm (5' 6") 05/13/2017 8:07 PM [facility] Body Mass Index 20.3 05/13/2017 8:07 PM [facility] Plan of Treatment Not on file Results [...] FOR DIALYSIS PATIENTS. Specimen Performing Laboratory Blood [address] [address] CBC (Hemogram only) (05/17/2017 4:26 AM)Only the [...] Specimen Performing Laboratory Blood - Arm, Right [address] [address] CBC with platelet count + automated diff [...] % Specimen Performing Laboratory Blood - Arm, [address] [address] CBC with platelet count + automated diff (05/16/2017 11:05 AM)Only the most recent of6 resultswithin the time period is included. Specimen Performing Laboratory Blood Narrative The following orders were created for panel order CBC with platelet count + automated diff. Procedure Abnormality Status --------- ------ CBC with platelet count ...[[id number]]AbnormalFinal result Please view results for these tests [...] U/L Specimen Performing Laboratory Blood - Arm, [address] [address] Basic metabolic panel (05/16/2017 4:48 AM)Only the [...] PATIENTS. Specimen Performing Laboratory Blood - Arm, [address] [address] Lipase (05/14/2017 4:08 AM)Only the most recent of2 resultswithin the time period is included. Component Value Ref Range Lipase 1007 (H) 8 - 78 U/L Specimen Performing Laboratory Blood - Arm, [address] [address] Lipid panel (05/14/2017 4:08 AM) Component Value Ref Range Triglycerides 71 mg/dL Cholesterol 108 mg/dL HDL 22 mg/dL LDL Calculated 72 mg/dL Specimen Performing Laboratory Blood - Arm, [address] [address] Narrative Triglyceride Reference Range: Low Risk <150 [id number] High Risk 200-499 Very High Risk>=500 Cholesterol Reference Range: Low Risk <200 [id number] High Risk>240 HDL Cholesterol Reference Range: Low Risk >=60 High Risk <40 LDL Cholesterol Reference Range: Optimal<100 Near Kftpnhk683-588 [id number] Svof625-685 Very High >=190 MR abdomen without IV contrast MRCP (03/13/2017 11:33 AM) Specimen Performing Laboratory [facility] Narrative FINAL REPORT MRI of the abdomen, [...] MD Report Verified Date/Time:03/13/2017 12:25:41 Reading Location: [address] Consult Reading Room Procedure Note Interface, External Ris In - 03/13/2017 12:27 PM [facility] FINAL REPORT MRI of the abdomen, MRCP. [...] Report Verified Date/Time: 03/13/2017 12:25:41 Reading Location: [address] Consult Reading Room Manual Differential (03/11/2017 5:44 AM)Only the most recent of2 resultswithin the time period is included. Component Value Ref Range Total Counted WBC Morphology Normal Platelet Morphology Normal RBC Morphology Normal Specimen Performing Laboratory Blood - Line, Venous [address] [address] Prothrombin time/INR (03/09/2017 9:54 AM) Component Value Ref Range Protime 14.3 11.7 - 14.7 seconds INR 1.1 <=5.9 Specimen Performing Laboratory Blood [address] [address] Narrative RECOMMENDED COUMADIN/WARFARIN INR THERAPY RANGES STANDARD DOSE: 2.0 - 3.0 Includes: PROPHYLAXIS for venous thrombosis, systemic embolization; TREATMENT for venous thrombosis and/or pulmonary embolus. HIGH RISK: Target INR is 2.5-3.5 for patients with mechanical heart valves. Triglycerides (03/09/2017 9:54 AM) Component Value Ref Range Triglycerides 58 mg/dL Specimen Performing Laboratory Blood [address] [address] Narrative TRIGLYCERIDE REFERENCE RANGE Low Risk<150 Borderline Risk 150-199 High [id number] Very High Risk >=500 Magnesium (03/09/2017 9:54 AM) Component Value Ref Range Magnesium 1.4 (L) 1.6 - 2.6 mg/dL Specimen Performing Laboratory Blood [address] [address] after 07/06/2016
--- OUTSIDE RECORDS SUMMARY | 2017-07-07 13:09 | XMS REPORT ---
:1980 [facility] Address [address] [place] [address] Care Team Providers Name Role Phone LILIA HILL Unavailable Unavailable CARL TORRESTRAMAINE Unavailable Unavailable Problems This patient has no known problems. Allergies, Adverse Reactions, Alerts This patient has no known allergies or adverse reactions. Medications This patient has no known medications. Results Test Description Test Time Test Comments Text Results Atomic Results Result Comments COMPREHENSIVE METABOLIC PANEL 2017-05-19 14:02:00 Test Item Value Reference Range Comments TOTAL PROTEIN (BEAKER) (test 7.8 gm/dL 6.0-8.3 eugq=909) ALBUMIN (BEAKER) (test 3.9 g/dL 3.5-5.0 iayq=9184) ALKALINE PHOSPHATASE 62 U/L 40-150 (BEAKER) (test qfoi=532) BILIRUBIN TOTAL (BEAKER) 0.3 mg/dL 0.2-1.2 (test vepd=037) SODIUM (BEAKER) (test 139 meq/L 136-145 hikn=291) POTASSIUM (BEAKER) (test 4.2 meq/L 3.5-5.1 zrar=822) CHLORIDE (BEAKER) (test 104 meq/L 98-107 kjao=734) CO2 (BEAKER) (test jvcq=924) 26 meq/L 22-29 BLOOD UREA NITROGEN (BEAKER) 9 mg/dL 7-21 (test borp=798) CREATININE (BEAKER) (test 0.64 mg/dL 0.57-1.25 rwrz=351) GLUCOSE RANDOM (BEAKER) 78 mg/dL 70-105 (test iqls=470) CALCIUM (BEAKER) (test 9.5 mg/dL 8.4-10.2 otpf=410) AST (SGOT) (BEAKER) (test 18 U/L 5-34 yubd=095) ALT (SGPT) (BEAKER) (test 8 U/L 6-55 tyvq=156) EGFR (BEAKER) (test 141 mL/min/1.73 sq m ESTIMATED GFR IS NOT ybjb=7707) ACCURATE CREATININE CLEARANCE IN PREDICTING GLOMERULAR FILTRATION RATE. ESTIMATED GFR IS NOT APPLICABLE FOR DIALYSIS PATIENTS. COMPREHENSIVE METABOLIC [id number] 06:08:00 Test Item Value Reference Range Comments TOTAL PROTEIN (BEAKER) 7.0 gm/dL 6.0-8.3 Specimen slightly (test ntyi=106) hemolyzed ALBUMIN (BEAKER) (test 3.4 g/dL 3.5-5.0 Specimen slightly ifup=0418) hemolyzed ALKALINE PHOSPHATASE 58 U/L 40-150 (BEAKER) (test nzil=725) BILIRUBIN TOTAL (BEAKER) 0.4 mg/dL 0.2-1.2 Specimen slightly (test kycl=193) hemolyzed SODIUM (BEAKER) (test 139 meq/L 136-145 ozlm=768) POTASSIUM (BEAKER) (test 4.5 meq/L 3.5-5.1 Specimen slightly zxst=963) hemolyzed CHLORIDE (BEAKER) (test 103 meq/L 98-107 bdoc=644) CO2 (BEAKER) (test 27 meq/L 22-29 nbfh=417) BLOOD UREA NITROGEN 2 mg/dL 7-21 (BEAKER) (test nzbd=225) CREATININE (BEAKER) (test 0.55 mg/dL 0.57-1.25 Specimen slightly ykom=308) hemolyzed GLUCOSE RANDOM (BEAKER) 85 mg/dL 70-105 (test pvlp=800) CALCIUM (BEAKER) (test 9.3 mg/dL 8.4-10.2 pelo=802) AST (SGOT) (BEAKER) (test 18 U/L 5-34 Specimen slightly oaeg=493) hemolyzed ALT (SGPT) (BEAKER) (test 8 U/L 6-55 Specimen slightly xalv=570) hemolyzed EGFR (BEAKER) (test 168 mL/min/1.73 sq ESTIMATED GFR IS NOT qbqg=1440) m ACCURATE CREATININE CLEARANCE IN PREDICTING GLOMERULAR FILTRATION RATE. ESTIMATED GFR IS NOT APPLICABLE FOR DIALYSIS PATIENTS. CBC (HEMOGRAM ONLY)2017-05-17 05:20:00 Test Item Value Reference Range Comments WHITE BLOOD CELL COUNT (BEAKER) (test yquy=824) 6.4 K/ L 3.5-10.5 RED BLOOD CELL COUNT (BEAKER) (test qrlv=856) 3.84 M/ L 4.63-6.08 HEMOGLOBIN (BEAKER) (test mcjm=089) 11.5 GM/DL 13.7-17.5 HEMATOCRIT (BEAKER) (test yevd=601) 35.2 % 40.1-51.0 MEAN CORPUSCULAR VOLUME (BEAKER) (test aloi=707) 91.7 fL 79.0-92.2 MEAN CORPUSCULAR HEMOGLOBIN (BEAKER) (test 29.9 pg 25.7-32.2 jttc=625) MEAN CORPUSCULAR HEMOGLOBIN CONC (BEAKER) (test 32.7 GM/DL 32.3-36.5 xrwp=829) RED CELL DISTRIBUTION WIDTH (BEAKER) (test 14.1 % 11.6-14.4 bwmr=325) PLATELET COUNT (BEAKER) (test sonu=339) 434 K/CU MM 150-450 MEAN PLATELET VOLUME (BEAKER) (test mgbg=713) 9.4 fL 9.4-12.4 NUCLEATED RED BLOOD CELLS (BEAKER) (test 0 /100 WBC 0-0 zcvo=157) HEPATIC FUNCTION [id number] 11:22:00 Test Item Value Reference Range Comments TOTAL PROTEIN (BEAKER) (test srjk=645) 6.9 gm/dL 6.0-8.3 ALBUMIN (BEAKER) (test rrfa=5514) 3.4 g/dL 3.5-5.0 BILIRUBIN TOTAL (BEAKER) (test imjz=446) 0.4 mg/dL 0.2-1.2 BILIRUBIN DIRECT (BEAKER) (test lhnh=485) 0.2 mg/dL 0.1-0.5 ALKALINE PHOSPHATASE (BEAKER) (test tdto=172) 65 U/L 40-150 AST (SGOT) (BEAKER) (test errn=860) 14 U/L 5-34 ALT (SGPT) (BEAKER) (test uyvr=646) 8 U/L 6-55 CBC W/PLT COUNT & AUTO [id number] 11:16:00 Test Item Value Reference Range Comments WHITE BLOOD CELL COUNT (BEAKER) (test klga=933) 7.0 K/ L 3.5-10.5 RED BLOOD CELL COUNT (BEAKER) (test dajr=371) 3.90 M/ L 4.63-6.08 HEMOGLOBIN (BEAKER) (test dksb=443) 11.9 GM/DL 13.7-17.5 HEMATOCRIT (BEAKER) (test pcer=133) 35.7 % 40.1-51.0 MEAN CORPUSCULAR VOLUME (BEAKER) (test rarn=605) 91.5 fL 79.0-92.2 MEAN CORPUSCULAR HEMOGLOBIN (BEAKER) (test 30.5 pg 25.7-32.2 jbgm=917) MEAN CORPUSCULAR HEMOGLOBIN CONC (BEAKER) (test 33.3 GM/DL 32.3-36.5 kmgn=920) RED CELL DISTRIBUTION WIDTH (BEAKER) (test 14.0 % 11.6-14.4 iroy=652) PLATELET COUNT (BEAKER) (test tkdi=183) 452 K/CU MM 150-450 MEAN PLATELET VOLUME (BEAKER) (test kcjv=861) 9.0 fL 9.4-12.4 NUCLEATED RED BLOOD CELLS (BEAKER) (test 0 /100 WBC 0-0 ljdb=145) NEUTROPHILS RELATIVE PERCENT (BEAKER) (test 59 % lstt=004) LYMPHOCYTES RELATIVE PERCENT (BEAKER) (test 21 % mdcj=782) MONOCYTES RELATIVE PERCENT (BEAKER) (test 8 % tfmk=263) EOSINOPHILS RELATIVE PERCENT (BEAKER) (test 10 % mops=233) BASOPHILS RELATIVE PERCENT (BEAKER) (test 1 % hkkx=157) NEUTROPHILS ABSOLUTE COUNT (BEAKER) (test 4.12 K/ L 1.78-5.38 mowg=740) LYMPHOCYTES ABSOLUTE COUNT (BEAKER) (test 1.45 K/ L 1.32-3.57 gakv=977) MONOCYTES ABSOLUTE COUNT (BEAKER) (test 0.58 K/ L 0.30-0.82 lkzd=905) EOSINOPHILS ABSOLUTE COUNT (BEAKER) (test 0.70 K/ L 0.04-0.54 lmaz=588) BASOPHILS ABSOLUTE COUNT (BEAKER) (test 0.10 K/ L 0.01-0.08 betv=926) IMMATURE GRANULOCYTES-RELATIVE PERCENT (BEAKER) 0 % 0-1 (test jivz=8223) BASIC METABOLIC [id number] 06:43:00 Test Item Value Reference Range Comments SODIUM (BEAKER) (test 138 meq/L 136-145 qmfv=479) POTASSIUM (BEAKER) (test 3.5 meq/L 3.5-5.1 tgzy=781) CHLORIDE (BEAKER) (test 100 meq/L 98-107 vynv=265) CO2 (BEAKER) (test 27 meq/L 22-29 kuda=232) BLOOD UREA NITROGEN 2 mg/dL 7-21 (BEAKER) (test lmyy=762) CREATININE (BEAKER) (test 0.53 mg/dL 0.57-1.25 fxpr=662) GLUCOSE RANDOM (BEAKER) 82 mg/dL 70-105 (test lhyu=934) CALCIUM (BEAKER) (test 9.0 mg/dL 8.4-10.2 lhxq=845) EGFR (BEAKER) (test 175 mL/min/1.73 sq m ESTIMATED GFR IS NOT ubvl=3694) ACCURATE CREATININE CLEARANCE IN PREDICTING GLOMERULAR FILTRATION RATE. ESTIMATED GFR IS NOT APPLICABLE FOR DIALYSIS PATIENTS. BASIC METABOLIC [id number] 05:14:00 Test Item Value Reference Range Comments SODIUM (BEAKER) (test 132 meq/L 136-145 evaq=853) POTASSIUM (BEAKER) (test 3.8 meq/L 3.5-5.1 fwgp=609) CHLORIDE (BEAKER) (test 101 meq/L 98-107 jude=565) CO2 (BEAKER) (test 18 meq/L 22-29 uobo=517) BLOOD UREA NITROGEN 4 mg/dL 7-21 (BEAKER) (test pgua=846) CREATININE (BEAKER) (test 0.52 mg/dL 0.57-1.25 rvfy=677) GLUCOSE RANDOM (BEAKER) 58 mg/dL 70-105 (test qavj=068) CALCIUM (BEAKER) (test 8.7 mg/dL 8.4-10.2 mozt=755) EGFR (BEAKER) (test 179 mL/min/1.73 sq m ESTIMATED GFR IS NOT yeax=4310) ACCURATE CREATININE CLEARANCE IN PREDICTING GLOMERULAR FILTRATION RATE. ESTIMATED GFR IS NOT APPLICABLE FOR DIALYSIS PATIENTS. CBC (HEMOGRAM ONLY)2017-05-15 04:57:00 Test Item Value Reference Range Comments WHITE BLOOD CELL COUNT (BEAKER) (test zwvf=363) 13.4 K/ L 3.5-10.5 RED BLOOD CELL COUNT (BEAKER) (test ekpg=833) 3.81 M/ L 4.63-6.08 HEMOGLOBIN (BEAKER) (test galg=270) 11.4 GM/DL 13.7-17.5 HEMATOCRIT (BEAKER) (test lzwb=537) 35.1 % 40.1-51.0 MEAN CORPUSCULAR VOLUME (BEAKER) (test mdkq=574) 92.1 fL 79.0-92.2 MEAN CORPUSCULAR HEMOGLOBIN (BEAKER) (test 29.9 pg 25.7-32.2 ianj=735) MEAN CORPUSCULAR HEMOGLOBIN CONC (BEAKER) (test 32.5 GM/DL 32.3-36.5 iige=279) RED CELL DISTRIBUTION WIDTH (BEAKER) (test 14.3 % 11.6-14.4 xxiw=373) PLATELET COUNT (BEAKER) (test gzaj=488) 502 K/CU MM 150-450 MEAN PLATELET VOLUME (BEAKER) (test kmjq=834) 9.6 fL 9.4-12.4 NUCLEATED RED BLOOD CELLS (BEAKER) (test 0 /100 WBC 0-0 muco=522) LIPID [id number] 05:00:00 Test Item Value Reference Range Comments TRIGLYCERIDES (BEAKER) (test nltu=611) 71 mg/dL CHOLESTEROL (BEAKER) (test blnl=622) 108 mg/dL HDL CHOLESTEROL (BEAKER) (test ckfp=809) 22 mg/dL LDL CHOLESTEROL CALCULATED (BEAKER) (test 72 mg/dL yeab=040) Triglyceride Reference Range: Low Risk <150 Borderline 150- 199 High Risk 200-499 Very High Risk >=500Cholesterol Reference Range: Low Risk <200 Borderline 200-239 High Risk > 240HDL Cholesterol Reference Range: Low Risk >=60 High Risk <40LDL Cholesterol Reference Range: Optimal <100 Near Optimal 100-129 Borderline 130-159 High 160-189 Very High >=190BASIC METABOLIC [id number] 05:00:00 Test Item Value Reference Range Comments SODIUM (BEAKER) (test 133 meq/L 136-145 bjam=085) POTASSIUM (BEAKER) (test 4.1 meq/L 3.5-5.1 rzai=116) CHLORIDE (BEAKER) (test 105 meq/L 98-107 cern=299) CO2 (BEAKER) (test 17 meq/L 22-29 trwn=082) BLOOD UREA NITROGEN 8 mg/dL 7-21 (BEAKER) (test zkcs=850) CREATININE (BEAKER) (test 0.51 mg/dL 0.57-1.25 oicl=896) GLUCOSE RANDOM (BEAKER) 54 mg/dL 70-105 (test tens=160) CALCIUM (BEAKER) (test 8.4 mg/dL 8.4-10.2 sjmo=749) EGFR (BEAKER) (test 183 mL/min/1.73 sq m ESTIMATED GFR IS NOT gsgn=6308) ACCURATE CREATININE CLEARANCE IN PREDICTING GLOMERULAR FILTRATION RATE. ESTIMATED GFR IS NOT APPLICABLE FOR DIALYSIS PATIENTS. HEPATIC FUNCTION [id number] 05:00:00 Test Item Value Reference Range Comments TOTAL PROTEIN (BEAKER) (test vkfu=278) 6.3 gm/dL 6.0-8.3 ALBUMIN (BEAKER) (test zwtp=7381) 3.2 g/dL 3.5-5.0 BILIRUBIN TOTAL (BEAKER) (test fabi=942) 0.7 mg/dL 0.2-1.2 BILIRUBIN DIRECT (BEAKER) (test tcuu=084) 0.3 mg/dL 0.1-0.5 ALKALINE PHOSPHATASE (BEAKER) (test vgxg=213) 62 U/L 40-150 AST (SGOT) (BEAKER) (test qrgm=673) 13 U/L 5-34 ALT (SGPT) (BEAKER) (test ybax=887) 9 U/L 6-55 [id number] 05:00:00 Test Item Value Reference Range Comments LIPASE (BEAKER) (test xnfd=229) 1007 U/L 8-78 CBC (HEMOGRAM ONLY)2017-05-14 04:39:00 Test Item Value Reference Range Comments WHITE BLOOD CELL COUNT (BEAKER) (test wwwl=582) 16.6 K/ L 3.5-10.5 RED BLOOD CELL COUNT (BEAKER) (test dwzp=220) 3.98 M/ L 4.63-6.08 HEMOGLOBIN (BEAKER) (test idvp=357) 12.0 GM/DL 13.7-17.5 HEMATOCRIT (BEAKER) (test msag=153) 37.2 % 40.1-51.0 MEAN CORPUSCULAR VOLUME (BEAKER) (test cknl=589) 93.5 fL 79.0-92.2 MEAN CORPUSCULAR HEMOGLOBIN (BEAKER) (test 30.2 pg 25.7-32.2 tssz=726) MEAN CORPUSCULAR HEMOGLOBIN CONC (BEAKER) (test 32.3 GM/DL 32.3-36.5 kwhe=221) RED CELL DISTRIBUTION WIDTH (BEAKER) (test 14.5 % 11.6-14.4 gnqx=969) PLATELET COUNT (BEAKER) (test zike=933) 527 K/CU MM 150-450 MEAN PLATELET VOLUME (BEAKER) (test tamo=038) 9.5 fL 9.4-12.4 NUCLEATED RED BLOOD CELLS (BEAKER) (test 0 /100 WBC 0-0 zuvc=002) MR, ABDOMEN, [id number] 12:25:00FINAL REPORT MRI of the abdomen, MRCP. [...] MDReport Verified Date/Time: 03/13/2017 12:25:41 Reading Location: [address] Ortho Consult Reading Room Electronically signed by: KIKO VEE M.D. on 12:25 [facility] [id number] 05:05:00 Test Item Value Reference Range Comments SODIUM (BEAKER) (test 139 meq/L 136-145 lvwq=693) POTASSIUM (BEAKER) (test 3.7 meq/L 3.5-5.1 fzaz=438) CHLORIDE (BEAKER) (test 108 meq/L 98-107 aenx=590) CO2 (BEAKER) (test 22 meq/L 22-29 tezf=028) BLOOD UREA NITROGEN 4 mg/dL 7-21 (BEAKER) (test tram=705) CREATININE (BEAKER) (test 0.58 mg/dL 0.57-1.25 hppq=338) GLUCOSE RANDOM (BEAKER) 95 mg/dL 70-105 (test xdmr=907) CALCIUM (BEAKER) (test 8.5 mg/dL 8.4-10.2 lhem=586) EGFR (BEAKER) (test 158 mL/min/1.73 sq m ESTIMATED GFR IS NOT iysk=7295) ACCURATE CREATININE CLEARANCE IN PREDICTING GLOMERULAR FILTRATION RATE. ESTIMATED GFR IS NOT APPLICABLE FOR DIALYSIS PATIENTS. CBC W/PLT COUNT & AUTO [id number] 04:49:00 Test Item Value Reference Range Comments WHITE BLOOD CELL COUNT (BEAKER) (test lfku=545) 6.3 K/ L 3.5-10.5 RED BLOOD CELL COUNT (BEAKER) (test fvdd=220) 4.32 M/ L 4.63-6.08 HEMOGLOBIN (BEAKER) (test rujg=956) 13.7 GM/DL 13.7-17.5 HEMATOCRIT (BEAKER) (test rteq=322) 40.3 % 40.1-51.0 MEAN CORPUSCULAR VOLUME (BEAKER) (test upca=495) 93.3 fL 79.0-92.2 MEAN CORPUSCULAR HEMOGLOBIN (BEAKER) (test 31.7 pg 25.7-32.2 xfly=812) MEAN CORPUSCULAR HEMOGLOBIN CONC (BEAKER) (test 34.0 GM/DL 32.3-36.5 kkhg=749) RED CELL DISTRIBUTION WIDTH (BEAKER) (test 11.9 % 11.6-14.4 nwpu=005) PLATELET COUNT (BEAKER) (test yhwn=424) 286 K/CU MM 150-450 MEAN PLATELET VOLUME (BEAKER) (test tysa=588) 9.4 fL 9.4-12.4 NUCLEATED RED BLOOD CELLS (BEAKER) (test 0 /100 WBC 0-0 nvjb=951) NEUTROPHILS RELATIVE PERCENT (BEAKER) (test 51 % zxmr=054) LYMPHOCYTES RELATIVE PERCENT (BEAKER) (test 31 % kjjg=913) MONOCYTES RELATIVE PERCENT (BEAKER) (test 11 % rucu=144) EOSINOPHILS RELATIVE PERCENT (BEAKER) (test 6 % ypbg=614) BASOPHILS RELATIVE PERCENT (BEAKER) (test 1 % vupz=145) NEUTROPHILS ABSOLUTE COUNT (BEAKER) (test 3.21 K/ L 1.78-5.38 kemr=111) LYMPHOCYTES ABSOLUTE COUNT (BEAKER) (test 1.91 K/ L 1.32-3.57 cspx=669) MONOCYTES ABSOLUTE COUNT (BEAKER) (test 0.68 K/ L 0.30-0.82 lvbh=595) EOSINOPHILS ABSOLUTE COUNT (BEAKER) (test 0.40 K/ L 0.04-0.54 ahgy=801) BASOPHILS ABSOLUTE COUNT (BEAKER) (test 0.04 K/ L 0.01-0.08 cpuu=136) IMMATURE GRANULOCYTES-RELATIVE PERCENT (BEAKER) 1 % 0-1 (test pwnl=8313) CBC W/PLT COUNT & AUTO [id number] 04:52:00 Test Item Value Reference Range Comments WHITE BLOOD CELL COUNT (BEAKER) (test lzsi=753) 6.2 K/ L 3.5-10.5 RED BLOOD CELL COUNT (BEAKER) (test dfhj=849) 4.31 M/ L 4.63-6.08 HEMOGLOBIN (BEAKER) (test esbo=095) 13.7 GM/DL 13.7-17.5 HEMATOCRIT (BEAKER) (test vywc=275) 41.1 % 40.1-51.0 MEAN CORPUSCULAR VOLUME (BEAKER) (test rzti=736) 95.4 fL 79.0-92.2 MEAN CORPUSCULAR HEMOGLOBIN (BEAKER) (test 31.8 pg 25.7-32.2 upbu=359) MEAN CORPUSCULAR HEMOGLOBIN CONC (BEAKER) (test 33.3 GM/DL 32.3-36.5 cebl=577) RED CELL DISTRIBUTION WIDTH (BEAKER) (test 12.1 % 11.6-14.4 uyms=876) PLATELET COUNT (BEAKER) (test rvoz=776) 295 K/CU MM 150-450 MEAN PLATELET VOLUME (BEAKER) (test cvxj=362) 9.5 fL 9.4-12.4 NUCLEATED RED BLOOD CELLS (BEAKER) (test 0 /100 WBC 0-0 zrtg=550) NEUTROPHILS RELATIVE PERCENT (BEAKER) (test 51 % clff=009) LYMPHOCYTES RELATIVE PERCENT (BEAKER) (test 31 % qbbh=173) MONOCYTES RELATIVE PERCENT (BEAKER) (test 11 % emff=498) EOSINOPHILS RELATIVE PERCENT (BEAKER) (test 7 % repc=674) BASOPHILS RELATIVE PERCENT (BEAKER) (test 1 % kgcs=111) NEUTROPHILS ABSOLUTE COUNT (BEAKER) (test 3.17 K/ L 1.78-5.38 arqa=281) LYMPHOCYTES ABSOLUTE COUNT (BEAKER) (test 1.89 K/ L 1.32-3.57 qepg=890) MONOCYTES ABSOLUTE COUNT (BEAKER) (test 0.65 K/ L 0.30-0.82 ppnk=798) EOSINOPHILS ABSOLUTE COUNT (BEAKER) (test 0.41 K/ L 0.04-0.54 tnra=140) BASOPHILS ABSOLUTE COUNT (BEAKER) (test 0.05 K/ L 0.01-0.08 xlen=675) IMMATURE GRANULOCYTES-RELATIVE PERCENT (BEAKER) 1 % 0-1 (test ijzb=5257) COMPREHENSIVE METABOLIC [id number] 11:20:00 Test Item Value Reference Range Comments TOTAL PROTEIN (BEAKER) 7.2 gm/dL 6.0-8.3 (test kutb=409) ALBUMIN (BEAKER) (test 3.7 g/dL 3.5-5.0 alji=4865) ALKALINE PHOSPHATASE 73 U/L 40-150 (BEAKER) (test hzbu=917) BILIRUBIN TOTAL (BEAKER) 0.6 mg/dL 0.2-1.2 (test qmla=416) SODIUM (BEAKER) (test 135 meq/L 136-145 iesj=162) POTASSIUM (BEAKER) (test 5.0 meq/L 3.5-5.1 jujq=712) CHLORIDE (BEAKER) (test 109 meq/L 98-107 ypmm=148) CO2 (BEAKER) (test 14 meq/L 22-29 fbze=412) BLOOD UREA NITROGEN 6 mg/dL 7-21 (BEAKER) (test bogv=478) CREATININE (BEAKER) (test 0.62 mg/dL 0.57-1.25 qgbj=804) GLUCOSE RANDOM (BEAKER) 45 mg/dL 70-105 (test pmza=842) CALCIUM (BEAKER) (test 8.6 mg/dL 8.4-10.2 ciml=497) AST (SGOT) (BEAKER) (test 17 U/L 5-34 gqym=490) ALT (SGPT) (BEAKER) (test 14 U/L 6-55 nraf=429) EGFR (BEAKER) (test 146 mL/min/1.73 sq ESTIMATED GFR IS NOT nfmb=9057) m ACCURATE CREATININE CLEARANCE IN PREDICTING GLOMERULAR FILTRATION RATE. ESTIMATED GFR IS NOT APPLICABLE FOR DIALYSIS PATIENTS. CBC W/PLT COUNT & AUTO [id number] 09:54:00 Test Item Value Reference Range Comments WHITE BLOOD CELL COUNT (BEAKER) (test ehie=529) 7.4 K/ L 3.5-10.5 RED BLOOD CELL COUNT (BEAKER) (test japd=697) 4.32 M/ L 4.63-6.08 HEMOGLOBIN (BEAKER) (test kmmm=052) 13.6 GM/DL 13.7-17.5 HEMATOCRIT (BEAKER) (test ekso=807) 41.8 % 40.1-51.0 MEAN CORPUSCULAR VOLUME (BEAKER) (test rddz=982) 96.8 fL 79.0-92.2 MEAN CORPUSCULAR HEMOGLOBIN (BEAKER) (test 31.5 pg 25.7-32.2 pili=133) MEAN CORPUSCULAR HEMOGLOBIN CONC (BEAKER) (test 32.5 GM/DL 32.3-36.5 fzad=557) RED CELL DISTRIBUTION WIDTH (BEAKER) (test 12.1 % 11.6-14.4 jffn=285) PLATELET COUNT (BEAKER) (test wiey=015) 277 K/CU MM 150-450 MEAN PLATELET VOLUME (BEAKER) (test xmlj=926) 9.7 fL 9.4-12.4 NUCLEATED RED BLOOD CELLS (BEAKER) (test 0 /100 WBC 0-0 cgin=344) NEUTROPHILS RELATIVE PERCENT (BEAKER) (test 57 % rsvb=704) LYMPHOCYTES RELATIVE PERCENT (BEAKER) (test 29 % fsoq=873) MONOCYTES RELATIVE PERCENT (BEAKER) (test 8 % vqmg=285) EOSINOPHILS RELATIVE PERCENT (BEAKER) (test 5 % dnhg=774) BASOPHILS RELATIVE PERCENT (BEAKER) (test 1 % wdyj=498) NEUTROPHILS ABSOLUTE COUNT (BEAKER) (test 4.23 K/ L 1.78-5.38 vzgl=565) LYMPHOCYTES ABSOLUTE COUNT (BEAKER) (test 2.10 K/ L 1.32-3.57 ffhf=836) MONOCYTES ABSOLUTE COUNT (BEAKER) (test 0.57 K/ L 0.30-0.82 gptd=677) EOSINOPHILS ABSOLUTE COUNT (BEAKER) (test 0.38 K/ L 0.04-0.54 tehi=023) BASOPHILS ABSOLUTE COUNT (BEAKER) (test 0.05 K/ L 0.01-0.08 zopu=532) IMMATURE GRANULOCYTES-RELATIVE PERCENT (BEAKER) 1 % 0-1 (test hmbr=6037) (MANUAL DIFFERENTIAL)2017-03-11 09:54:00 Test Item Value Reference Range Comments TOTAL COUNTED (BEAKER) (test fogl=7161) WBC MORPHOLOGY (BEAKER) (test ajsj=747) Normal PLT MORPHOLOGY (BEAKER) (test chhu=208) Normal RBC MORPHOLOGY (BEAKER) (test gydc=979) Normal CBC W/PLT COUNT & AUTO [id number] 09:09:00 Test Item Value Reference Range Comments WHITE BLOOD CELL COUNT (BEAKER) (test czeb=401) 8.9 K/ L 3.5-10.5 RED BLOOD CELL COUNT (BEAKER) (test mohm=099) 4.25 M/ L 4.63-6.08 HEMOGLOBIN (BEAKER) (test ufin=535) 13.6 GM/DL 13.7-17.5 HEMATOCRIT (BEAKER) (test qjsk=925) 40.7 % 40.1-51.0 MEAN CORPUSCULAR VOLUME (BEAKER) (test uatx=942) 95.8 fL 79.0-92.2 MEAN CORPUSCULAR HEMOGLOBIN (BEAKER) (test 32.0 pg 25.7-32.2 wicm=048) MEAN CORPUSCULAR HEMOGLOBIN CONC (BEAKER) (test 33.4 GM/DL 32.3-36.5 pnxo=560) RED CELL DISTRIBUTION WIDTH (BEAKER) (test 12.1 % 11.6-14.4 fhpa=974) PLATELET COUNT (BEAKER) (test ikbj=815) 274 K/CU MM 150-450 MEAN PLATELET VOLUME (BEAKER) (test egej=888) 9.8 fL 9.4-12.4 NUCLEATED RED BLOOD CELLS (BEAKER) (test 0 /100 WBC 0-0 esyo=389) NEUTROPHILS RELATIVE PERCENT (BEAKER) (test 62 % ivnq=864) LYMPHOCYTES RELATIVE PERCENT (BEAKER) (test 24 % ozqq=292) MONOCYTES RELATIVE PERCENT (BEAKER) (test 7 % gddq=913) EOSINOPHILS RELATIVE PERCENT (BEAKER) (test 5 % nohx=591) BASOPHILS RELATIVE PERCENT (BEAKER) (test 1 % vqzd=264) NEUTROPHILS ABSOLUTE COUNT (BEAKER) (test 5.55 K/ L 1.78-5.38 vhwm=250) LYMPHOCYTES ABSOLUTE COUNT (BEAKER) (test 2.14 K/ L 1.32-3.57 nxrg=236) MONOCYTES ABSOLUTE COUNT (BEAKER) (test 0.64 K/ L 0.30-0.82 jsto=573) EOSINOPHILS ABSOLUTE COUNT (BEAKER) (test 0.48 K/ L 0.04-0.54 ssrr=954) BASOPHILS ABSOLUTE COUNT (BEAKER) (test 0.07 K/ L 0.01-0.08 oagc=964) IMMATURE GRANULOCYTES-RELATIVE PERCENT (BEAKER) 0 % 0-1 (test kugs=4475) (MANUAL DIFFERENTIAL)2017-03-10 09:09:00 Test Item Value Reference Range Comments TOTAL COUNTED (BEAKER) (test znst=5044) WBC MORPHOLOGY (BEAKER) (test wqyq=715) Normal PLT MORPHOLOGY (BEAKER) (test wbtd=353) Normal RBC MORPHOLOGY (BEAKER) (test usxd=794) Normal COMPREHENSIVE METABOLIC [id number] 07:30:00 Test Item Value Reference Range Comments TOTAL PROTEIN (BEAKER) 6.8 gm/dL 6.0-8.3 (test nkae=310) ALBUMIN (BEAKER) (test 3.6 g/dL 3.5-5.0 ubmj=5227) ALKALINE PHOSPHATASE 77 U/L 40-150 (BEAKER) (test wjoz=167) BILIRUBIN TOTAL (BEAKER) 0.6 mg/dL 0.2-1.2 (test wcap=023) SODIUM (BEAKER) (test 136 meq/L 136-145 vsmo=494) POTASSIUM (BEAKER) (test 4.3 meq/L 3.5-5.1 iagh=699) CHLORIDE (BEAKER) (test 105 meq/L 98-107 jucg=880) CO2 (BEAKER) (test 19 meq/L 22-29 timg=703) BLOOD UREA NITROGEN 6 mg/dL 7-21 (BEAKER) (test zrzd=811) CREATININE (BEAKER) (test 0.57 mg/dL 0.57-1.25 oexq=961) GLUCOSE RANDOM (BEAKER) 52 mg/dL 70-105 (test gklt=806) CALCIUM (BEAKER) (test 8.2 mg/dL 8.4-10.2 kmam=361) AST (SGOT) (BEAKER) (test 17 U/L 5-34 ekeu=930) ALT (SGPT) (BEAKER) (test 14 U/L 6-55 owbt=424) EGFR (BEAKER) (test 161 mL/min/1.73 sq ESTIMATED GFR IS NOT tkqb=1337) m ACCURATE CREATININE CLEARANCE IN PREDICTING GLOMERULAR FILTRATION RATE. ESTIMATED GFR IS NOT APPLICABLE FOR DIALYSIS PATIENTS. CBC W/PLT COUNT & AUTO [id number] 10:49:00 Test Item Value Reference Range Comments WHITE BLOOD CELL COUNT (BEAKER) (test rwwx=451) 6.9 K/ L 3.5-10.5 RED BLOOD CELL COUNT (BEAKER) (test lybs=406) 3.83 M/ L 4.63-6.08 HEMOGLOBIN (BEAKER) (test zhjj=912) 12.5 GM/DL 13.7-17.5 HEMATOCRIT (BEAKER) (test gehj=250) 36.7 % 40.1-51.0 MEAN CORPUSCULAR VOLUME (BEAKER) (test mhqj=597) 95.8 fL 79.0-92.2 MEAN CORPUSCULAR HEMOGLOBIN (BEAKER) (test 32.6 pg 25.7-32.2 xirs=847) MEAN CORPUSCULAR HEMOGLOBIN CONC (BEAKER) (test 34.1 GM/DL 32.3-36.5 bnsp=814) RED CELL DISTRIBUTION WIDTH (BEAKER) (test 12.4 % 11.6-14.4 grxx=870) PLATELET COUNT (BEAKER) (test fxqn=273) 267 K/CU MM 150-450 MEAN PLATELET VOLUME (BEAKER) (test ersu=167) 9.7 fL 9.4-12.4 NUCLEATED RED BLOOD CELLS (BEAKER) (test 0 /100 WBC 0-0 ltiw=584) NEUTROPHILS RELATIVE PERCENT (BEAKER) (test 60 % trdj=692) LYMPHOCYTES RELATIVE PERCENT (BEAKER) (test 26 % vqws=718) MONOCYTES RELATIVE PERCENT (BEAKER) (test 7 % irwy=055) EOSINOPHILS RELATIVE PERCENT (BEAKER) (test 6 % jrww=589) BASOPHILS RELATIVE PERCENT (BEAKER) (test 1 % qoyi=343) NEUTROPHILS ABSOLUTE COUNT (BEAKER) (test 4.15 K/ L 1.78-5.38 rwbo=803) LYMPHOCYTES ABSOLUTE COUNT (BEAKER) (test 1.82 K/ L 1.32-3.57 pdje=259) MONOCYTES ABSOLUTE COUNT (BEAKER) (test 0.47 K/ L 0.30-0.82 iocm=666) EOSINOPHILS ABSOLUTE COUNT (BEAKER) (test 0.38 K/ L 0.04-0.54 ksjx=385) BASOPHILS ABSOLUTE COUNT (BEAKER) (test 0.04 K/ L 0.01-0.08 xtfe=533) COMPREHENSIVE METABOLIC [id number] 10:45:00 Test Item Value Reference Range Comments TOTAL PROTEIN (BEAKER) 6.2 gm/dL 6.0-8.3 (test yrva=355) ALBUMIN (BEAKER) (test 3.3 g/dL 3.5-5.0 lmcc=0130) ALKALINE PHOSPHATASE 70 U/L 40-150 (BEAKER) (test npdn=691) BILIRUBIN TOTAL (BEAKER) 0.4 mg/dL 0.2-1.2 (test bshk=284) SODIUM (BEAKER) (test 138 meq/L 136-145 rbju=165) POTASSIUM (BEAKER) (test 3.5 meq/L 3.5-5.1 qfsm=137) CHLORIDE (BEAKER) (test 109 meq/L 98-107 hxel=308) CO2 (BEAKER) (test 23 meq/L 22-29 jkdh=706) BLOOD UREA NITROGEN 5 mg/dL 7-21 (BEAKER) (test icyq=865) CREATININE (BEAKER) (test 0.54 mg/dL 0.57-1.25 dtud=927) GLUCOSE RANDOM (BEAKER) 77 mg/dL 70-105 (test kwzv=943) CALCIUM (BEAKER) (test 7.6 mg/dL 8.4-10.2 scqt=366) AST (SGOT) (BEAKER) (test 18 U/L 5-34 wulo=237) ALT (SGPT) (BEAKER) (test 15 U/L 6-55 zrhc=706) EGFR (BEAKER) (test 171 mL/min/1.73 sq ESTIMATED GFR IS NOT djla=5644) m ACCURATE CREATININE CLEARANCE IN PREDICTING GLOMERULAR FILTRATION RATE. ESTIMATED GFR IS NOT APPLICABLE FOR DIALYSIS PATIENTS. [id number] 10:29:00 Test Item Value Reference Range Comments TRIGLYCERIDES (BEAKER) (test oqav=065) 58 mg/dL TRIGLYCERIDE REFERENCE RANGELow Risk <150Borderline Risk 150-199High Risk 200-499Very High Risk>=[id number] 10:29:00 Test Item Value Reference Range Comments MAGNESIUM (BEAKER) (test ykto=807) 1.4 mg/dL 1.6-2.6 [id number] 10:29:00 Test Item Value Reference Range Comments LIPASE (BEAKER) (test fwib=581) 536 U/L 8-78 PROTHROMBIN [id number] 10:22:00 Test Item Value Reference Range Comments PROTIME (BEAKER) (test gujt=294) 14.3 seconds 11.7-14.7 INR (BENOITAKER) (test tjui=552) 1.1 <=5.9 RECOMMENDED COUMADIN/WARFARIN INR THERAPY RANGESSTANDARD DOSE: 2.0 - 3.0 Includes: PROPHYLAXIS forvenous thrombosis, systemic embolization; TREATMENT for venous thrombosis and/or pulmonary embolus.HIGH RISK: Target INR is 2.5-3.5 for patients with mechanical heart valves.
[2017-07-07 14:52] LABS: Absolute Lymphocytes (CBC) 1.7 K/uL (0.7-4.9); Absolute Monocytes 1.3 K/uL (0.1-1.3); Absolute Neutrophil 9.8 K/uL (1.8-8.0); Basophils % 0.8 % (0-1.3); Eosinophils % 1.4 % (0-4.4); Hematocrit 41.3 % (39.6-49.0); Lymphocytes % 12.7 % (15.3-44.8); MCH 30.3 pg (27.0-35.0); MCV 92.1 fL (80-100); MPV 7.5 fL (7.6-11.3); Monocytes % 10.2 % (3.3-12.3); RBC Red Blood Cell Count 4.48 M/uL (4.33-5.43)
[2017-07-07 14:55] LABS: Protime INR 1.16
[2017-07-07 15:04] LABS: Glomerular Filtration Rate > 60 mL/min (>60)
[2017-07-07 15:08] LABS: Bicarbonate 29 mEq/L (21-31); Glucose Level 84 mg/dL (65-120); Lipase 137 U/L (22-51); Potassium 4.7 mEq/L (3.6-5.0); Sodium Level 136 mEq/L (135-145)
[2017-07-07 15:17] LABS: ALT/SGPT 14 IU/L (10-60); AST/SGOT 22 IU/L (10-42); Albumin 4.4 g/dL (3.2-5.5); Alkaline Phosphatase 67 IU/L (42-121); BUN Blood Urea Nitrogen 8 mg/dL (6-20); Bilirubin Direct < 0.1 mg/dL (0-0.2); Bilirubin Total 0.3 mg/dL (0.3-1.2); CKMB Creatine Kinase MB 0.9 ng/ml (0.3-4.0); Creatine Phosphokinase 55 IU/L (22-269); Glomerular Filtration Rate > 90 mL/min (=/>90); Magnesium 1.6 mg/dL (1.8-2.5); Protein, Total 8.3 g/dL (6.0-8.3)
[2017-07-07 15:23] LABS: Amylase Level 289 U/L (28-100)
[2017-07-07] MEDS ORDERED: CIPROFLOXACIN 400mg IV 400 MG/200 ML BAG IV ONE (15:34)
[2017-07-07] MEDS ORDERED: METRONIDAZOLE 500mg IVPB 500 MG/100 ML BAG IV ONE (15:35)
[2017-07-07] MEDS ORDERED: MAGNESIUM SULFATE 1 gm IVPB 1 GM/100 ML BAG IV ONE (15:35)
--- NOTE | 2017-07-07 16:04 | RAD REPORT ---
EXAM DESCRIPTION: RAD - Chest Single View - 07/07/2017 2:48 pm CLINICAL HISTORY: Abdominal pain, abdominal distention COMPARISON: May 2017 TECHNIQUE: AP portable chest image was obtained 1443 hours . FINDINGS: No focal lung parenchymal process. Lung markings are similar to comparison. Heart and vasc ulature are normal. No measurable pleural effusion and no pneumothorax. No gross bony abnormality see n. No acute aortic findings suspected. IMPRESSION: No acute cardiopulmonary process. No significant change from comparison.
--- NOTE | 2017-07-07 16:48 | EKG ---
Test Date: 2017-07-07 Test Time: 15:45:32 [employer] Chemist: JIMBO MEASUREMENT RESULTS: Intervals: Rate: 79 MS: 182 QRSD: 88 QT: 394 QTc: 451 Cunningham: P: 71 MS: 182 QRS: 54 T: 63 INTERPRETIVE STATEMENTS: Normal sinus rhythm Normal ECG Compared to ECG 05/13/2017 11:36:02 No significant changes Electronically Signed On 07-07-17 16:48:02 CDT by Tavares Agarwal
[2017-07-07] MEDS ORDERED: NA CHLORIDE 0.9% 2,000 ML ONE (17:23)
[2017-07-07] MEDS ORDERED: FAMOTIDINE 20 MG/2 ML VIAL IV ONE (17:23)
[2017-07-07 17:30] LABS: Urine Blood NEGATIVE (NEG); Urine Glucose NEGATIVE (NEG); Urine Protein TRACE (NEG); Urine pH 8.5 (5.0-7.0)
[2017-07-07 17:37] LABS: Urine Bacteria NONE SEEN /HPF (NONE SEEN); Urine Culture Reflex Order NOT NEEDED; Urine RBC NONE SEEN /HPF (NONE SEEN)
--- NOTE | 2017-07-07 17:42 | RAD REPORT ---
EXAM DESCRIPTION: CT - Abdomen Pelvis W Contrast - 07/07/2017 5:16 pm CLINICAL HISTORY: Abdominal pain/right upper quadrant pain COMPARISON: May 2017 TECHNIQUE: Computed axial tomography of the abdomen pelvis was obtained. 100 cc Isovue-300 was admin istered intravenously. Oral contrast was not requested which limits evaluation of bowel. All CT scans are performed using dose optimization technique as appropriate and may include automated exposure control or mA/KV adjustment according to patient size. FINDINGS: The pseudocyst within the region of the pancreatic head has decreased in size since the pr ior exam. Currently it measures 33 x 25 millimeters. On the prior exam it measured 51 x 36 millimeter s. The pancreatic duct has diminished in size since the prior exam. A couple of additional small pseu docysts are mildly diminished in size. The amount of ill-defined fluid surrounding the pancreatic hea d has a mildly diminished. The liver, spleen, adrenal and kidneys appear unremarkable. There is no evidence of diverticulitis. IMPRESSION: Moderate decrease in the size of the largest pseudocyst within the pancreatic head curre ntly measuring 33 x 25 millimeters. The ill-defined fluid surrounding the pancreatic head has mildly diminished. No new abnormality is displayed
--- NOTE | 2017-07-07 17:55 | EDPHYS ---
Physician Documentation [facility] Name: Ankit Rosales Age: 36 yrs Sex: Male : 1980 Arrival Date: 07/07/2017 Time: 13:10 Bed 23 Private MD: ED Physician Alexandru Chan HPI: 07/07 16:51 This 36 yrs old Male presents to ER via Ambulatory with complaints of ynes Abdominal Pain. 16:51 The patient presents with abdominal pain abdominal distention in the epigastric area, ynes in the upper abdomen. Onset: The symptoms/episode began/occurred 1 week(s) ago. The patient presents to the emergency department with nausea, vomiting, abdominal pain, of the epigastric area, right upper quadrant and left upper quadrant. Onset: The symptoms/episode began/occurred 5 day(s) ago. Possible causes: unknown. The symptoms are aggravated by movement, pressure, food , The symptoms are alleviated by nothing. remaining still. The symptoms do not radiate. Associated signs and symptoms: Pertinent positives: nausea, vomiting. Historical: - Allergies: 13:30 cant take tylenol due to liver issues; 13:30 NKDA; - Home Meds: 13:30 Eliquis 2.5 mg oral tab 1 tab 2 times per day [Active]; hj - PMHx: 13:30 Cirrhosis; GALLSTONES; left leg DVT; Pancreatitis; hj - PSHx: 13:30 None; hj - Immunization history:: Adult Immunizations up to date. - Social history:: Smoking status: Patient uses tobacco products, smokes one pack cigarettes per day. Patient uses alcohol, trying to quit. - Family history:: not pertinent. ROS: 16:51 Constitutional: Negative for fever, chills, and weight loss, Eyes: Negative for injury, ynes pain, redness, and discharge, ENT: Negative for injury, pain, and discharge, Neck: Negative for injury, pain, and swelling, Cardiovascular: Negative for chest pain, palpitations, and edema, Respiratory: Negative for shortness of breath, cough, wheezing, and pleuritic chest pain, Back: Negative for injury and pain, : Negative for injury, bleeding, discharge, and swelling, MS/Extremity: Negative for injury and deformity, Skin: Negative for injury, rash, and discoloration, Neuro: Negative for headache, weakness, numbness, tingling, and seizure, Psych: Negative for depression, anxiety, suicide ideation, homicidal ideation, and hallucinations, Allergy/Immunology: Negative for hives, rash, and allergies, Endocrine: Negative for neck swelling, polydipsia, polyuria, polyphagia, and marked weight changes, Hematologic/Lymphatic: Negative for swollen nodes, abnormal bleeding, and unusual bruising. 16:51 Abdomen/GI: Positive for abdominal pain, nausea and vomiting, of the epigastric area, right upper quadrant and left upper quadrant. Exam: 16:51 Constitutional: This is a well developed, well nourished patient who is awake, alert, ynes and in no acute distress. Head/Face: Normocephalic, atraumatic. Eyes: Pupils equal round and reactive to light, extra-ocular motions intact. Lids and lashes normal. Conjunctiva and sclera are non-icteric and not injected. Cornea within normal limits. Periorbital areas with no swelling, redness, or edema. ENT: Nares patent. No nasal discharge, no septal abnormalities noted. Tympanic membranes are normal and external auditory canals are clear. Oropharynx with no redness, swelling, or masses, exudates, or evidence of obstruction, uvula midline. Mucous membranes moist. Neck: Trachea midline, no thyromegaly or masses palpated, and no cervical lymphadenopathy. Supple, full range of motion without nuchal rigidity, or vertebral point tenderness. No Meningismus. Chest/axilla: Normal chest wall appearance and motion. Nontender with no deformity. No lesions are appreciated. Cardiovascular: Regular rate and rhythm with a normal S1 and S2. No gallops, murmurs, or rubs. Normal PMI, no JVD. No pulse deficits. Respiratory: Lungs have equal breath sounds bilaterally, clear to auscultation and percussion. No rales, rhonchi or wheezes noted. No increased work of breathing, no retractions or nasal flaring. Back: No spinal tenderness. No costovertebral tenderness. Full range of motion. Male : Normal genitalia with no discharge or lesions. Skin: Warm, dry with normal turgor. Normal color with no rashes, no lesions, and no evidence of cellulitis. MS/ Extremity: Pulses equal, no cyanosis. Neurovascular intact. Full, normal range of motion. Neuro: Awake and alert, GCS 15, oriented to person, place, time, and situation. Cranial nerves II-XII grossly intact. Motor strength 5/5 in all extremities. Sensory grossly intact. Cerebellar exam normal. Normal gait. Psych: Awake, alert, with orientation to person, place and time. Behavior, mood, and affect are within normal limits. 16:51 Abdomen/GI: Inspection: abdomen appears normal, Bowel sounds: normal, Palpation: mild abdominal tenderness, moderate abdominal tenderness, in the epigastric area, right upper quadrant and left upper quadrant, Liver: no appreciated palpable abnormalities, Hernia: not appreciated. Vital Signs: 13:30 BP 145 / 103; Pulse 96; Resp 18; Temp 98.6(TE); Pulse Ox 100% on R/A; Weight 59.87 kg; hj Height 5 ft. 6 in. (167.64 cm); Pain 10/10; 13:40 BP 112 / 74; Pulse 80; Resp 16; Pulse Ox 99% on R/A; tl3 15:06 BP 112 / 82; Pulse 83; Resp 18; Pulse Ox 99% on R/A; tl3 15:42 BP 117 / 72; Pulse 87; Resp 16; Pulse Ox 96% on R/A; tl3 17:19 BP 118 / 72; Pulse 81; Resp 16; Pulse Ox 100% ; tl3 17:38 BP 110 / 72; Pulse 76; Resp 18; Pulse Ox 100% on R/A; tl3 18:33 BP 121 / 83; Pulse 79; Resp 18; Pulse Ox 100% on R/A; tl3 19:49 BP 117 / 79; Pulse 79; Resp 16; Pulse Ox 98% on R/A; tl3 13:30 Body Mass Index 21.30 (59.87 kg, 167.64 cm) MDM: 13:51 Patient medically screened. 07/07 14:23 Order name: Amylase, Serum; Complete Time: 15:26 07/07 14:23 Order name: Basic Metabolic Panel; Complete Time: 15:26 07/07 14:23 Order name: CBC with Diff; Complete Time: 15:26 07/07 14:23 Order name: Creatinine for Radiology; Complete Time: 15:26 07/07 14:23 Order name: Hepatic Function; Complete Time: 15:26 07/07 14:23 Order name: Lipase; Complete Time: 15:26 07/07 14:23 Order name: Urine Microscopic Only; Complete Time: 17:48 [facility] 07/07 14:24 Order name: BNP; Complete Time: 15:26 [facility] 07/07 14:24 Order name: Ckmb; Complete Time: 15:26 [facility] 07/07 14:24 Order name: CPK; Complete Time: 15:26 [facility] 07/07 14:24 Order name: Magnesium; Complete Time: 15:26 [facility] 07/07 14:24 Order name: PT-INR; Complete Time: 15:26 [facility] 07/07 14:24 Order name: Ptt, Activated; Complete Time: 15:26 [facility] 07/07 14:24 Order name: Troponin (emerg Dept Use Only); Complete Time: 15:26 [facility] 07/07 14:24 Order name: XRAY Chest (1 view); Complete Time: 16:49 [facility] 07/07 14:24 Order name: EKG; Complete Time: 14:24 [facility] 07/07 14:24 Order name: AMMONIA [facility] 07/07 16:55 Order name: CT Abd/Pelvis - W/Contrast; Complete Time: 17:48 [facility] 07/07 17:15 Order name: Urine Dipstick--Ancillary (enter results); Complete Time: 17:48 07/07 17:59 Order name: CONS Physician Consult EDAL 07/07 14:23 Order name: IV Saline Lock; Complete Time: 15:04 [facility] 07/07 14:23 Order name: Labs collected and sent; Complete Time: 15:04 [facility] 07/07 14:23 Order name: Urine Dipstick-Ancillary (obtain specimen); Complete Time: 18:10 [facility] 07/07 14:24 Order name: Cardiac monitoring; Complete Time: 15:04 [facility] 07/07 14:24 Order name: EKG - Nurse/Tech; Complete Time: 15:04 [facility] 07/07 14:24 Order name: O2 Per Protocol; Complete Time: 15:04 [facility] 07/07 14:24 Order name: O2 Sat Monitoring; Complete Time: 15:04 [facility] 07/07 17:54 Order name: Labs - recollect needed; Complete Time: 18:01 iw Administered Medications: 15:42 Drug: Cipro 400 mg Volume: 200 ml; Route: IVPB; Infused Over: 60 mins; Site: right tl3 antecubital; Delivery: Primary tubing; 16:25 Follow up: IV Status: Completed infusion; IV Intake: 100ml tl3 15:42 Drug: Flagyl 500 mg Volume: 100 ml; Route: IVPB; Rate: 200 ml/hr; Infused Over: 30 tl3 mins; Site: right antecubital; 17:37 Follow up: IV Status: Completed infusion; IV Intake: 100ml tl3 16:47 Drug: Magnesium Sulfate 1 grams Route: IVPB; Infused Over: 1 hrs; Site: right tl3 antecubital; Delivery: Primary tubing; 17:35 Drug: Pepcid 20 mg Route: IVP; Infused Over: 3 mins; Site: right antecubital; tl3 20:13 Follow up: Response: No adverse reaction tl3 17:36 Drug: NS 0.9% 1000 ml Route: IV; Rate: 1 bolus; Site: right antecubital; Delivery: tl3 Primary tubing; 20:13 Follow up: IV Status: Completed infusion; IV Intake: 1000ml tl3 18:32 Drug: morphine 4 mg Route: IVP; Infused Over: 3 mins; Site: right antecubital; tl3 20:14 Follow up: Response: No adverse reaction; Pain is decreased tl3 18:32 Drug: Zofran 4 mg Route: IVP; Site: right antecubital; tl3 20:14 Follow up: Response: No adverse reaction tl3 18:33 Drug: Thiamine 100 mg Route: IV; Rate: bolus; Site: right antecubital; tl3 20:14 Follow up: Response: No adverse reaction tl3 20:14 Follow up: IV Status: Completed infusion; IV Intake: 20ml tl3 18:33 Drug: NS 0.9% 1000 ml Route: IV; Rate: 1 bolus; Site: right antecubital; Delivery: tl3 Primary tubing; 20:13 Follow up: IV Status: Completed infusion; IV Intake: 1000ml tl3 Disposition: 07/07/17 17:54 Hospitalization ordered by Ting Hair for Inpatient Admission. Preliminary diagnosis are Acute pancreatitis, Pseudocyst of pancreas, Hypomagnesemia, Alcohol abuse. - Bed requested for Telemetry/MedSurg (Inpatient). - Status is Inpatient Admission. tl3 - Condition is Fair. - Problem is new. - Symptoms have improved. UTI on Admission? No Signatures: Dispatcher [employer] EDAlexandru Whyte MD MD cha Williams, Irene, RN RN Rob Malagon, RN RN Paula Ceja, RN RN An Bhatia, RN RN tl3
--- NOTE | 2017-07-07 17:55 | ER ---
Nurse's Notes [facility] Name: Ankit Rosales Age: 36 yrs Sex: Male : 1980 Arrival Date: 07/07/2017 Time: 13:10 Bed 23 Private MD: Diagnosis: Acute pancreatitis;Pseudocyst of pancreas;Hypomagnesemia;Alcohol abuse Presentation: 07/07 13:28 Presenting complaint: Patient states: i think my pancreas is acting up, hx of hj pancreatitis; denies nausea and vomiting; i drink last Friday; denies fever and chills;. Transition of care: patient was not received from another setting of care. Onset of symptoms was July 07, 2017. Care prior to arrival: None. 13:28 Method Of Arrival: Ambulatory 13:28 Acuity: KRAIG 3 hj Triage Assessment: 13:30 General: Appears in no apparent distress. uncomfortable, Behavior is calm, cooperative, hj appropriate for age. Pain: Complains of pain in right upper quadrant. Historical: - Allergies: 13:30 cant take tylenol due to liver issues; 13:30 NKDA; hj - Home Meds: 13:30 Eliquis 2.5 mg oral tab 1 tab 2 times per day [Active]; hj - PMHx: 13:30 Cirrhosis; GALLSTONES; left leg DVT; Pancreatitis; hj - PSHx: 13:30 None; hj - Immunization history:: Adult Immunizations up to date. - Social history:: Smoking status: Patient uses tobacco products, smokes one pack cigarettes per day. Patient uses alcohol, trying to quit. - Family history:: not pertinent. Screenin:40 Abuse screen: Denies threats or abuse. Nutritional screening: No deficits noted. tl3 Tuberculosis screening: No symptoms or risk factors identified. Fall Risk None identified. Assessment: 13:30 GI: Bowel sounds present X 4 quads. Abdomen is tender to palpation. hj 13:40 General: Appears distressed, uncomfortable, Behavior is calm, cooperative, appropriate tl3 for age. Pain: Complains of pain in abdomen and right upper quadrant Pain currently is 10 out of 10 on a pain scale. Neuro: Level of Consciousness is awake, alert, obeys commands, Oriented to person, place, time, situation, Appropriate for age. Cardiovascular: Heart tones S1 S2 present Capillary refill < 3 seconds in bilateral fingers. Respiratory: Airway is patent Trachea midline Breath sounds are clear bilaterally. GI: Bowel sounds present X 4 quads. : No signs and/or symptoms were reported regarding the genitourinary system. EENT: No signs and/or symptoms were reported regarding the EENT system. Derm: No signs and/or symptoms reported regarding the dermatologic system. Musculoskeletal: No signs and/or symptoms reported regarding the musculoskeletal system. 15:42 Reassessment: Patient appears in no apparent distress at this time. No changes from tl3 previously documented assessment. Patient and/or family updated on plan of care and expected duration. Pain level reassessed. Patient is alert, oriented x 3, equal unlabored respirations, skin warm/dry/pink. pt remains uncomfortabble. 17:19 Reassessment: Patient appears in no apparent distress at this time. No changes from tl3 previously documented assessment. Patient and/or family updated on plan of care and expected duration. Pain level reassessed. Patient is alert, oriented x 3, equal unlabored respirations, skin warm/dry/pink. 18:33 Reassessment: Patient appears in no apparent distress at this time. No changes from tl3 previously documented assessment. Patient and/or family updated on plan of care and expected duration. Pain level reassessed. Patient is alert, oriented x 3, equal unlabored respirations, skin warm/dry/pink. 19:49 Reassessment: Patient appears in no apparent distress at this time. No changes from tl3 previously documented assessment. Patient and/or family updated on plan of care and expected duration. Pain level reassessed. Patient is alert, oriented x 3, equal unlabored respirations, skin warm/dry/pink. resting quiely. Vital Signs: 13:30 BP 145 / 103; Pulse 96; Resp 18; Temp 98.6(TE); Pulse Ox 100% on R/A; Weight 59.87 kg; hj Height 5 ft. 6 in. (167.64 cm); Pain 10/10; 13:40 BP 112 / 74; Pulse 80; Resp 16; Pulse Ox 99% on R/A; tl3 15:06 BP 112 / 82; Pulse 83; Resp 18; Pulse Ox 99% on R/A; tl3 15:42 BP 117 / 72; Pulse 87; Resp 16; Pulse Ox 96% on R/A; tl3 17:19 BP 118 / 72; Pulse 81; Resp 16; Pulse Ox 100% ; tl3 17:38 BP 110 / 72; Pulse 76; Resp 18; Pulse Ox 100% on R/A; tl3 18:33 BP 121 / 83; Pulse 79; Resp 18; Pulse Ox 100% on R/A; tl3 19:49 BP 117 / 79; Pulse 79; Resp 16; Pulse Ox 98% on R/A; tl3 13:30 Body Mass Index 21.30 (59.87 kg, 167.64 cm) ED Course: 13:10 Patient arrived in ED. mr 13:29 Triage completed. hj 13:30 Arm band placed on right wrist. hj 13:40 Patient has correct armband on for positive identification. Placed in gown. Bed in low tl3 position. Side rails up X 1. Pulse ox on. NIBP on. Warm blanket given. 13:40 No provider procedures requiring assistance completed. Inserted. tl3 13:51 Alexandru Chan MD is Attending Physician. ynes 13:58 Initial lab(s) drawn, by ne. Inserted saline lock: 22 gauge in right antecubital area, hj using aseptic technique. Blood collected. 14:48 XRAY Chest (1 view) In Process Unspecified. EDMS 15:00 An Alcantar, MIRYAM is Primary Nurse. tl3 15:42 Resting quietly. tl3 16:13 EKG done, by mobile service rv technician. reviewed by Alexandru Chan MD. at1 17:[address] vm2 17:14 CT completed. Patient moved back from CT. vm2 17:17 CT Abd/Pelvis - W/Contrast In Process Unspecified. EDMS 17:53 Ting Hair MD is Hospitalizing Provider. ynes 19:49 Patient admitted, IV remains in place. tl3 Administered Medications: 15:42 Drug: Cipro 400 mg Volume: 200 ml; Route: IVPB; Infused Over: 60 mins; Site: right tl3 antecubital; Delivery: Primary tubing; 16:25 Follow up: IV Status: Completed infusion; IV Intake: 100ml tl3 15:42 Drug: Flagyl 500 mg Volume: 100 ml; Route: IVPB; Rate: 200 ml/hr; Infused Over: 30 tl3 mins; Site: right antecubital; 17:37 Follow up: IV Status: Completed infusion; IV Intake: 100ml tl3 16:47 Drug: Magnesium Sulfate 1 grams Route: IVPB; Infused Over: 1 hrs; Site: right tl3 antecubital; Delivery: Primary tubing; 17:35 Drug: Pepcid 20 mg Route: IVP; Infused Over: 3 mins; Site: right antecubital; tl3 20:13 Follow up: Response: No adverse reaction tl3 17:36 Drug: NS 0.9% 1000 ml Route: IV; Rate: 1 bolus; Site: right antecubital; Delivery: tl3 Primary tubing; 20:13 Follow up: IV Status: Completed infusion; IV Intake: 1000ml tl3 18:32 Drug: morphine 4 mg Route: IVP; Infused Over: 3 mins; Site: right antecubital; tl3 20:14 Follow up: Response: No adverse reaction; Pain is decreased tl3 18:32 Drug: Zofran 4 mg Route: IVP; Site: right antecubital; tl3 20:14 Follow up: Response: No adverse reaction tl3 18:33 Drug: Thiamine 100 mg Route: IV; Rate: bolus; Site: right antecubital; tl3 20:14 Follow up: Response: No adverse reaction tl3 20:14 Follow up: IV Status: Completed infusion; IV Intake: 20ml tl3 18:33 Drug: NS 0.9% 1000 ml Route: IV; Rate: 1 bolus; Site: right antecubital; Delivery: tl3 Primary tubing; 20:13 Follow up: IV Status: Completed infusion; IV Intake: 1000ml tl3 Intake: 16:25 IV: 100ml; Total: 100ml. tl3 17:37 IV: 100ml; Total: 200ml. tl3 20:13 IV: 1000ml; Total: 1200ml. tl3 20:13 IV: 1000ml; Total: 2200ml. tl3 20:14 IV: 20ml; Total: 2220ml. tl3 Outcome: 17:54 Decision to Hospitalize by Provider. ynes 19:49 Admitted to Med/surg accompanied by tech, via wheelchair, with chart, Report called to tl3 Cara Pak RN 19:59 Condition: good tl3 20:45 Patient left the ED. tl3 Signatures: Dispatcher [employer] Alexandru Fan MD MD cha Rivera, Maria mr gonzales, Amanda, screed person EKG Tat1 Rob Conroy RN RN Rahel Quinn 2 An Alcantar, MIRYAM RN tl3 Corrections: (The following items were deleted from the chart) 13:32 13:30 Pulse 96bpm; Resp 18bpm; Pulse Ox 100% RA; Temp 98.6F Temporal; 59.87 kg; Height hj 5 ft. 6 in.; BMI: 21.3; Pain 01/07; hj 17:37 16:42 IV Status: Completed infusion; IV Intake: 200ml tl3 tl3 07/08 00:42 00:41 IV Status: Completed infusion; IV Intake: 1840ml tl3 tl3
[2017-07-07] MEDS ORDERED: THIAMINE 200 MG/2 ML INJ ONE (18:20)
[2017-07-07] MEDS ORDERED: MORPHINE 4 MG/ML SYR ONE (18:20)
[2017-07-07] MEDS ORDERED: ONDANSETRON 4 MG/2 ML VIAL ONE (18:21)
[2017-07-07] MEDS ORDERED: ONDANSETRON 4 MG (ODT) TAB PO PRN (18:56)
[2017-07-07] MEDS ORDERED: ACETAMINOPHEN 500 MG TAB PO PRN (18:56)
[2017-07-07] MEDS ORDERED: MORPHINE 2 MG/ML SYR IV PRN (18:59)
[2017-07-07] MEDS ORDERED: NA CHLORIDE 0.9% 1,000 ML IV SCH (19:00)
[2017-07-07] MEDS: NA CHLORIDE 0.9% 1,000 ML IV SCH (20:52)
[2017-07-07] MEDS ORDERED: ONDANSETRON 4 MG/2 ML VIAL IV PRN (21:06)
[2017-07-07] MEDS: MORPHINE 4 MG/ML SYR IV PRN (22:45)
[2017-07-07 22:59] VITALS: BMI 20.5
[2017-07-08] MEDS: NA CHLORIDE 0.9% 1,000 ML IV SCH ×4 (01:40→21:40)
[2017-07-08] MEDS: MORPHINE 4 MG/ML SYR IV PRN ×6 (02:21→21:40)
[2017-07-08 04:58] LABS: Absolute Lymphocytes (CBC) 1.9 K/uL (0.7-4.9); Absolute Monocytes 0.8 K/uL (0.1-1.3); Absolute Neutrophil 4.2 K/uL (1.8-8.0); Basophils % 0.9 % (0-1.3); Eosinophils % 3.8 % (0-4.4); Hematocrit 36.5 % (39.6-49.0); Lymphocytes % 26.4 % (15.3-44.8); MCH 30.4 pg (27.0-35.0); MCV 92.3 fL (80-100); MPV 7.5 fL (7.6-11.3); Monocytes % 11.2 % (3.3-12.3); RBC Red Blood Cell Count 3.96 M/uL (4.33-5.43)
[2017-07-08 05:26] LABS: ALT/SGPT 11 IU/L (10-60); AST/SGOT 14 IU/L (10-42); Albumin 3.2 g/dL (3.2-5.5); Alkaline Phosphatase 56 IU/L (42-121); BUN Blood Urea Nitrogen 6 mg/dL (6-20); Bicarbonate 24 mEq/L (21-31); Bilirubin Total 0.5 mg/dL (0.3-1.2); Glomerular Filtration Rate > 90 mL/min (=/>90); Glucose Level 87 mg/dL (65-120); Phosphorus 3.5 mg/dL (2.5-4.3); Protein, Total 6.1 g/dL (6.0-8.3); Sodium Level 137 mEq/L (135-145)
[2017-07-08 05:27] LABS: Magnesium 1.6 mg/dL (1.8-2.5)
[2017-07-08] MEDS ORDERED: MAGNESIUM SULFATE 1 gm IVPB 1 GM/100 ML BAG IV ONE (07:00)
--- NOTE | 2017-07-08 12:30 | P.PN ---
Subjective Date of Service: 07/08/17 Primary Care Provider: None Chief Complaint: Abd pain Patient seen and examined at bedside with RN. Chart reviewed. Case discussed with GI. Currently patient is still complaining of having some abdominal pain. He is NPO at this time Review of Systems 10-point ROS is otherwise unremarkable Physical Examination - Vital Signs Temperature: 98.4 F Blood Pressure: 121/71 Pulse: 92 Respirations: 18 Pulse Ox (%): 98 - Physical Exam General: Alert, In no apparent distress, Oriented x3 HEENT: Atraumatic, PERRLA, EOMI Neck: Supple, JVD not distended Respiratory: Clear to auscultation bilaterally, Normal air movement Cardiovascular: Regular rate/rhythm, Normal S1 S2 Gastrointestinal: Normal bowel sounds, Soft and benign, Tenderness (In the Epigastric Area) Musculoskeletal: No tenderness Integumentary: No rashes Neurological: Normal speech, Normal tone, Normal affect Lymphatics: No axilla or inguinal lymphadenopathy - Studies Laboratory Data (last 24 hrs) 07/07/17 14:30: PT 13.7 H, INR 1.16, APTT 28.8 07/07/17 14:30: B-Natriuretic Peptide < 10 07/07/17 14:30: Creatinine 0.81 07/07/17 14:30: WBC 13.0 H D, Hgb 13.6, Hct 41.3, Plt Count 662 H D 07/07/17 14:30: Sodium 136, Potassium 4.7, BUN 8, Creatinine 0.84, Glucose 84, Magnesium 1.6 L, Total Bilirubin 0.3, AST 22, ALT 14, Alkaline Phosphatase 67, Amylase 289 H*, Lipase 137 H Medications List Reviewed: Yes Assessment & Plan - Problems (Diagnosis) (1) Acute pancreatitis Onset Date: 02/18/17 Current Visit: No Status: Acute Plan: Acute on Chronic pancreatitis Most likely 2.2 to alcohol -NPO, IV fluids and Pain mgmt Qualifiers: Pancreatitis type: alcohol induced Acute pancreatitis complication: no infection or necrosis Qualified Code(s): K85.20 - Alcohol induced acute pancreatitis without necrosis or infection (2) Alcohol abuse Onset Date: 02/18/17 Current Visit: No Status: Chronic (3) Nicotine dependence Onset Date: 06/26/17 Current Visit: No Status: Chronic Qualifiers: Nicotine product type: cigarettes Substance use status: uncomplicated Qualified Code(s): F17.210 - Nicotine dependence, cigarettes, uncomplicated Discharge Plan: Home Plan to discharge in: 24 Hours - Code Status/Comfort Care Code Status Assessed: Yes Critical Care: No
[2017-07-09] MEDS: MORPHINE 4 MG/ML SYR IV PRN ×3 (01:18→08:35)
[2017-07-09] MEDS: NA CHLORIDE 0.9% 1,000 ML IV SCH (05:05)
[2017-07-09 05:14] LABS: Absolute Monocytes 0.8 K/uL (0.1-1.3); Absolute Neutrophil 4.8 K/uL (1.8-8.0); Eosinophils % 5.2 % (0-4.4); Lymphocytes % 24.7 % (15.3-44.8); MCH 30.2 pg (27.0-35.0); MPV 7.3 fL (7.6-11.3); Monocytes % 9.5 % (3.3-12.3); RBC Red Blood Cell Count 3.92 M/uL (4.33-5.43)
[2017-07-09 05:31] LABS: ALT/SGPT 10 IU/L (10-60); AST/SGOT 14 IU/L (10-42); Albumin 3.2 g/dL (3.2-5.5); Alkaline Phosphatase 55 IU/L (42-121); BUN Blood Urea Nitrogen 5 mg/dL (6-20); Bicarbonate 24 mEq/L (21-31); Bilirubin Total 0.6 mg/dL (0.3-1.2); Glomerular Filtration Rate > 90 mL/min (=/>90); Glucose Level 78 mg/dL (65-120); Phosphorus 3.5 mg/dL (2.5-4.3); Potassium 4.4 mEq/L (3.6-5.0); Protein, Total 5.9 g/dL (6.0-8.3); Sodium Level 136 mEq/L (135-145)
[2017-07-09 05:33] LABS: Magnesium 1.4 mg/dL (1.8-2.5)
[2017-07-09] MEDS ORDERED: Magnesium Sulfate 2gm IVPB 2 G/50 ML BAG IV ONE (05:43)
[2017-07-09 08:50] VITALS: O2SAT 99
[2017-07-09 08:52] VITALS: BP 117/75; TEMP 98
--- NOTE | 2017-07-09 11:17 | P.DS ---
Admission Date: 07/07/17 Discharge Date: 07/09/17 Primary Care Provider: None Disposition: ROUTINE DISCHARGE Discharge Condition: GOOD Reason for Admission: Abd pain Consultations: GI and Gen Surgery - Problems (1) Acute pancreatitis Onset Date: 02/18/17 Current Visit: No Status: Acute Qualifiers: Pancreatitis type: alcohol induced Acute pancreatitis complication: no infection or necrosis Qualified Code(s): K85.20 - Alcohol induced acute pancreatitis without necrosis or infection (2) Alcohol abuse Onset Date: 02/18/17 Current Visit: No Status: Chronic (3) Nicotine dependence Onset Date: 06/26/17 Current Visit: No Status: Chronic Qualifiers: Nicotine product type: cigarettes Substance use status: uncomplicated Qualified Code(s): F17.210 - Nicotine dependence, cigarettes, uncomplicated Brief History of Present Illness: See HPI Hospital Course: Patient was admitted to the hospital for acute abdominal pain most likely secondary to pancreatitis. Patient stated that 2 days ago he had on alcoholic beverages and then started having some abdominal pain. CT of the abdomen was consistent with pancreatitis with pseudocyst. Patient does have a history of pseudocyst in the past however this time the cyst was much smaller than the last time. Patient was admitted for observation. Patient was kept on IV fluids and NPO status here in the hospital. Patient had marked improvement in his abdominal pain and thus was discharged home today with a regular diet. Patient was educated extensively on avoiding high fat diet and alcoholic beverages. Patient demonstrated understanding and thus was discharged home. General surgery and GI input is appreciated during this case. Vital Signs/Physical Exam: Temp Pulse Resp BP Pulse Ox 98.0 F 80 16 117/75 99 07/09/17 08:00 07/09/17 08:00 07/09/17 08:00 07/09/17 08:00 07/09/17 08:00 General: Alert, In no apparent distress, Oriented x3 HEENT: Atraumatic, PERRLA, EOMI Neck: Supple, JVD not distended Respiratory: Clear to auscultation bilaterally, Normal air movement Cardiovascular: Regular rate/rhythm, Normal S1 S2 Gastrointestinal: Normal bowel sounds, No tenderness Musculoskeletal: No tenderness Integumentary: No rashes Neurological: Normal speech, Normal tone, Normal affect Lymphatics: No axilla or inguinal lymphadenopathy Laboratory Data at Discharge: WBC 8.1 K/uL (4.3-10.9) 07/09/17 04:33 Hgb 11.8 g/dL (13.6-17.9) L 07/09/17 04:33 Hct 36.0 % (39.6-49.0) L 07/09/17 04:33 Plt Count 483 K/uL (152-406) H 07/09/17 04:33 PT 13.7 SECONDS (9.5-12.5) H 07/07/17 14:30 INR 1.16 07/07/17 14:30 APTT 28.8 SECONDS (24.3-36.9) 07/07/17 14:30 Sodium 136 mEq/L (135-145) 07/09/17 04:33 Potassium 4.4 mEq/L (3.6-5.0) 07/09/17 04:33 BUN 5 mg/dL (6-20) L 07/09/17 04:33 Creatinine 0.53 mg/dL (0.61-1.24) L 07/09/17 04:33 Glucose 78 mg/dL (65-120) 07/09/17 04:33 Phosphorus 3.5 mg/dL (2.5-4.3) 07/09/17 04:33 Magnesium 1.4 mg/dL (1.8-2.5) L* 07/09/17 04:33 Total Bilirubin 0.6 mg/dL (0.3-1.2) 07/09/17 04:33 AST 14 IU/L (10-42) 07/09/17 04:33 ALT 10 IU/L (10-60) 07/09/17 04:33 Alkaline Phosphatase 55 IU/L (42-121) 07/09/17 04:33 B-Natriuretic Peptide < 10 pg/ml (<=100) 07/07/17 14:30 Amylase 289 U/L (28-100) H* 07/07/17 14:30 Lipase 137 U/L (22-51) H 07/07/17 14:30 Home Medications: Apixaban [Eliquis *] 2.5 mg PO BID 07/07/17 Tramadol HCl [Ultram] 50 mg PO Q6H #20 tablet 07/09/17 New Medications: Tramadol HCl [Ultram] 50 mg PO Q6H #20 tablet Diet: Regular Activity: Ad андрей Followup: Dale Miles MD [ACTIVE - CAN ADMIT] - 1 Week Shiv Spence MD [ACTIVE - CAN ADMIT] - 1 Week
--- NOTE | 2017-07-09 18:15 | CON ---
Date of Consultation: 07/09/2017 Brief History Of Present Illness: The patient is a 36-year-old, male to be known from the past medical history of significant alcohol abuse. He was admitted multiple times in the past with a cute alcoholic pancreatitis and returns with the same said complaints. He was noted to have a pancre atic phlegmon consistent with pseudocyst on his last admission, and he resumed drinking alcohol on friday. He developed abdominal pain similar and exacerbation to his last episode and has as such came to the emergency room. He has also been eating sausage and fatty foods and as stated above , he continues to drink 2-3 beers per day. The pain is described as sharp in the epigastrium and rig ht upper quadrant as well as left upper quadrant with radiation to his back. Intensity was 7/10, but now significantly better approximately 3 to 4/10, similar to past episodes. He denies fever, chills , nausea associated pain only, and he denies any chest pain, shortness of breath, dizziness, or any o ther constitutional complaints. Past Medical History: Significant for alcohol abuse, alcoholic pancreatitis, pseudocyst of the pancr eas. Past Surgical History: Negative. Family History: Noncontributory. Social History: He is a heavy tobacco user with over a pack per day history and significant for alco hol abuse, currently with beer. He denies recreational drug use. Review of Systems: A 10-point review of systems other than HPI, denies. Allergies: TO ACETAMINOPHEN. Medications: At home includes tramadol and possibly Eliquis, but he has been noncompliant due to fin ancial issues. Physical Examination: Vital Signs: At the time of my examination, his BMI is 20.6. Blood pressure 117/75, respiratory rat e 16, pulse is 80, temperature 98.0. General: He is awake, alert, oriented. Psychiatric: Appropriate, conversive. HEENT: Normocephalic. Sclerae icteric. Mucous membranes moist. Oropharynx clear. Neck: Supple. No JVD. Chest: Symmetric expansion and excursion. Cardiovascular: Regular rate and rhythm. Pulmonary: Clear to auscultation bilaterally. Abdomen: Soft with mild global tenderness to palpation, improved from prior exams. No rebound. No guarding. No focal peritonitis. No Scott Swift or Steven signs. Negative Romero sign. Skin: Warm and dry. Extremities: No clubbing, cyanosis, or edema. Laboratory Data: White blood cell count was 8.1, hemoglobin 11.8 over hematocrit of 36.0. His plate let count was 483. His sodium 136, potassium 4.4, chloride 109, carbon dioxide 24, BUN 5, creatinine 0.53, glucose is 78. His magnesium was 1.4. His phosphorus was 3.5. His lipase on admission was 1 37. His amylase was 289 on admission. He had a repeat CT scan of the abdomen and pelvis, and this w as officially read as moderate decrease in the size of the large pseudocyst within the pancreatic hea d, currently measuring 33 x 25 mm. Ill-defined fluid surrounding pancreatic head is only mildly dimi nished. No new abnormality displayed. Assessment And Plan: This is a 36-year-old male, who comes in with current alcoholic pancreatitis. 1.IV fluid hydration. 2.Serial exams. 3.Continue low fat diet. 4.I have discussed with the patient alcohol cessation once again and offered him AA and Social Work consultation. The patient denies this at this time. I have explained the risks, benefits, and alter natives to the above stated plan. The patient agrees to proceed as indicated. Thank you for this interesting consult. LILY/JAMES Voice ID: [id number] Report ID: [id number]
--- NOTE | 2017-07-11 11:46 | CON ---
Date of Consultation: 07/08/2017 Reason For Consultation: Abdominal pain, likely pseudocyst. History Of Present Illness: Mr. Rosales is a 36-year-old gentleman, who chronically drinks excessive a lcohol against medical advice. He started drinking again and came with abdominal pain about 2 days' in duration when he started drinking alcohol. Along with that, he has nausea and vomiting. At this time, he describes the pain as 10/10. Also, a pseudocyst was noted on radiologic test; however, the size of which is anything going down. He denies any hematemesis, melena, or hematochezia. Past Medical History: As elaborated above and chronic pancreatitis, chronic alcoholism. Past Surgical History: Not related to above. Family History: No gastrointestinal malignancy in the family. Social History: Positive excessive use of alcohol against medical advice. Positive tobacco. He is ambivalent about recreational drug use. Psych History: As elaborated above. Allergies: REVIEWED IN THE CHART. Medications: Reviewed in the chart. Review of Systems: Constitutional: He denies any weight loss, weight gain. Denies any fever or chills. Respiratory: No shortness of breath, cough, or expectoration. GI: As elaborated above. Hepatologic: As elaborated above. Neuropsychiatric: Other than alcoholism, nothing new. Musculoskeletal: No issues. Cardiac: No palpitation. No heart murmur. No orthopnea or dyspnea. Physical Examination: General: Young male, not very cooperative. Hemodynamic respiratory profile within normal range. HEENT: Atraumatic, normocephalic. Anicteric. No pallor. No temporal wasting. No facial wasting. Neck: Supple. No lymphadenopathy. Trachea central in position. Chest: Clear to auscultation and percussion. Cardiovascular: Normal S1, S2. No S3, no S4. Abdomen: Soft; however, extremely tender, especially in the epigastric area. However, whole upper q uadrant is also tender. Bowel sounds are good. No hepatomegaly. No splenomegaly. No ascites. No succussion splash. Extremities: Upper and lower extremities are normal and symmetrical. No wasting noted. Dermatologic: Normal. Neurologic: Alert and oriented x3. Intact memory, mentation, and judgment. Can move all parts of e xtremities. Diagnostic Data: Radiologic data reviewed, analyzed. Discussed with the patient. Impression/plan/recommendations: Mr. Rosales is a 36-year-old gentleman with alcoholism and chronic pa ncreatitis, developed a pseudocyst as a result of that. Etiology of his pseudocyst and pancreatitis is due to alcohol. Therefore, main treatment in this case is: 1.Stopping alcohol. 2.Stopping alcohol. 3.Stopping alcohol. 4.Other supportive management as we are doing is IV fluid, pain management, pain control. His diet should be a low residue diet. Once again, I have had a spencer discussion with him regarding all of th e above and I spent a long time; however, still I see no motivation in this case to give up his addic tion. I have also advised him to seek professional support. Again, he does not seem to be motivated on this either. Given above situation in the background of chronic pancreatitis, we can also start his diet slowly. New recommendation in pancreatitis is to start diet as soon as possible. GONZALEZ/JAMES Voice ID: [id number] Report ID: [id number]
--- NOTE | 2017-07-12 15:39 | P.HP ---
Certification for Inpatient Patient admitted to: Observation With expected LOS: <2 Midnights Patient will require the following post-hospital care: None Practitioner: I am a practitioner with admitting privileges, knowledge of patient current condition, hospital course, and medical plan of care. Services: Services provided to patient in accordance with Admission requirements found in Title 42 Section 412.3 of the Code of Federal Regulations Patient History Date of Service: 07/12/17 Primary Care Provider: None Reason for admission: Abd pain History of Present Illness: This is a 36-year-old male with significant past medical history of chronic pancreatitis and alcohol abuse who presented to the ED complaining of having some abdominal pain that started last night. Patient stated that he had couple of beers the night before and thought that he will not have any abdominal pain but last night he started having some excruciating pain and had some nausea and vomiting associated with it. Patient stated that he has been here in the hospital for the similar complaints in the past and has been not feeling well overall. Allergies No Known Drug Allergies Allergy (Verified 06/25/17 11:51) Unknown acetaminophen [From Tylenol] Adverse Reaction (Severe, Verified 06/25/17 11:51) Unknown Home Medications: Apixaban [Eliquis *] 2.5 mg PO BID 07/07/17 Tramadol HCl [Ultram] 50 mg PO Q6H #20 tablet 07/09/17 - Past Medical/Surgical History Has patient received pneumonia vaccine in the past: No Diabetic: No -: alcohol abuse -: alcoholic pancreatitis -: pancreatic pseudocyst - Social History Smoking Status: Current every day smoker Alcohol use: Yes CD- Drugs: No Caffeine use: Yes Place of Residence: Home Review of Systems General: As per HPI Physical Examination - Vital Signs Temperature: 98.0 F Blood Pressure: 117/75 Pulse: 80 Respirations: 16 Pulse Ox (%): 99 - Physical Exam General: Alert, In no apparent distress HEENT: Atraumatic, PERRLA, Mucous membr. moist/pink, EOMI, Sclerae nonicteric Neck: Supple, 2+ carotid pulse no bruit, No LAD, Without JVD or thyroid abnormality Respiratory: Clear to auscultation bilaterally, Normal air movement Cardiovascular: Regular rate/rhythm, Normal S1 S2 Gastrointestinal: Normal bowel sounds, Tenderness Musculoskeletal: No tenderness Integumentary: No rashes Neurological: Normal gait, Normal speech, Normal strength at 5/5 x4 extr, Normal tone, Normal affect Lymphatics: No axilla or inguinal lymphadenopathy Assessment and Plan - Problems (Diagnosis) (1) Acute pancreatitis Onset Date: 02/18/17 Status: Acute Plan: Acute on Chronic pancreatitis Most likely 2.2 to alcohol -NPO, IV fluids and Pain mgmt Qualifiers: Pancreatitis type: alcohol induced Acute pancreatitis complication: no infection or necrosis Qualified Code(s): K85.20 - Alcohol induced acute pancreatitis without necrosis or infection (2) Alcohol abuse Onset Date: 02/18/17 Status: Chronic (3) Nicotine dependence Onset Date: 06/26/17 Status: Chronic Qualifiers: Nicotine product type: cigarettes Substance use status: uncomplicated Qualified Code(s): F17.210 - Nicotine dependence, cigarettes, uncomplicated Discharge Plan: Home Plan to discharge in: 24 Hours - Advance Directives Does patient have a Living Will: No Does patient have a Durable POA for Healthcare: No - Code Status/Comfort Care Code Status Assessed: Yes Critical Care: No
== END 2017-07-09 12:02 | disposition home or self-care (01) | DRG 439 ==
LOC: ER 13:06 → ERHOLD 17:56 → 2ND 19:47
PROVIDERS: ADMIT Family Medicine; ATTEND Family Medicine
DX: K85.20 Alcohol induced acute pancreatitis without necrosis or infection (principal); K86.3 Pseudocyst of pancreas; F10.10 Alcohol abuse, uncomplicated; F17.200 Nicotine dependence, unspecified, uncomplicated
CPT/HCPCS: 36415; 71045; 74177; 80048; 80053; 80076; 81003; 81015; 82140; 82150; 82550; 82553; 83690; 83735; 83880; 84100; 84484; 85025; 85610; 85730; 93005; 96361; 96365; 96366; 96367; 96368; 96375; 99285; J0744; J2270; J2405; J3411; J3475; J7030; Q9967

== ENCOUNTER 2017-07-21 04:57 | Emergency (ER) | payer SELFPAY ==
--- OUTSIDE RECORDS SUMMARY | 2017-07-21 04:59 | XMS REPORT | Clinical Summary ---
:1980 Author Organization [facility] Address [address] [place] [address] Phone Care Team Providers Name Role Phone [...] Anesthesia Event Gastroenterology Dorota Cortes MD 05/13/2017 [facility] Alcohol-induced - Encounter Medicine MD Ulysses acute pancreatitis, 05/20/2017 Rafaela Samson, unspecified MD complication Diomedes Alvarado status;Alcohol MD Lul abuse;Cystic mass of pancreas;Smoker;Thr ombocytosis (HCC);Alcohol-induc ed acute pancreatitis without infection or necrosis;Smoking 03/13/2017 Procedure Pass Gastroenterology 03/11/2017 Procedure Pass Gastroenterology 03/10/2017 Anesthesia Event Gastroenterology Юлия Crump MD 03/09/2017 [facility] Internal [facility] Alcohol - Encounter Medicine MD Araceli abuse;Cystic mass 03/14/2017 Pavel Garcia MD pancreas;Hypokalemi Quyen, a;Alcohol-induced MD Yaneth acute pancreatitis, unspecified complication status;Portal vein thrombosis after 07/20/2016 Social History Tobacco Use Types Packs/Day Years Used Date Current Every Day Smoker Smokeless Tobacco: Never Used Sex Assigned at Date Recorded Not on file Last Filed Vital Signs Vital Sign Reading Time Taken Blood Pressure 124/78 05/20/2017 11:36 AM SCREED OPERATOR Pulse 84 05/20/2017 11:36 AM SCREED OPERATOR Temperature 35.7 C (96.2 F) 05/20/2017 11:36 AM SCREED OPERATOR Respiratory Rate 18 05/20/2017 11:36 AM SCREED OPERATOR Oxygen Saturation 98% 05/20/2017 11:36 AM SCREED OPERATOR Inhaled Oxygen Concentration - - Weight 57.1 kg (125 lb 12.8 oz) 05/13/2017 8:07 PM SCREED OPERATOR Height 167.6 cm (5' 6") 05/13/2017 8:07 PM SCREED OPERATOR Body Mass Index 20.3 05/13/2017 8:07 PM SCREED OPERATOR Plan of Treatment Not on file Results [...] FOR DIALYSIS PATIENTS. Specimen Performing Laboratory Blood [address] [address] CBC (Hemogram only) (05/17/2017 4:26 AM)Only the [...] Specimen Performing Laboratory Blood - Arm, Right [address] [address] CBC with platelet count + automated diff [...] % Specimen Performing Laboratory Blood - Arm, [address] [address] CBC with platelet count + automated diff (05/16/2017 11:05 AM)Only the most recent of6 resultswithin the time period is included. Specimen Performing Laboratory Blood Narrative The following orders were created for panel order CBC with platelet count + automated diff. Procedure Abnormality Status --------- ------ CBC with platelet count ...[[id number]]AbnormalFinal result Please view results for these tests [...] U/L Specimen Performing Laboratory Blood - Arm, [address] [address] Basic metabolic panel (05/16/2017 4:48 AM)Only the [...] PATIENTS. Specimen Performing Laboratory Blood - Arm, [address] [address] Lipase (05/14/2017 4:08 AM)Only the most recent of2 resultswithin the time period is included. Component Value Ref Range Lipase 1007 (H) 8 - 78 U/L Specimen Performing Laboratory Blood - Arm, [address] [address] Lipid panel (05/14/2017 4:08 AM) Component Value Ref Range Triglycerides 71 mg/dL Cholesterol 108 mg/dL HDL 22 mg/dL LDL Calculated 72 mg/dL Specimen Performing Laboratory Blood - Arm, [address] [address] Narrative Triglyceride Reference Range: Low Risk <150 [id number] High Risk 200-499 Very High Risk>=500 Cholesterol Reference Range: Low Risk <200 [id number] High Risk>240 HDL Cholesterol Reference Range: Low Risk >=60 High Risk <40 LDL Cholesterol Reference Range: Optimal<100 Near Qssdwoo447-220 [id number] [id number] Very High >=190 MR abdomen without IV contrast MRCP (03/13/2017 11:33 AM) Specimen Performing Laboratory [facility] [employer] Narrative FINAL REPORT MRI of the abdomen, [...] MD Report Verified Date/Time:03/13/2017 12:25:41 Reading Location: [address] Consult Reading Room Procedure Note Interface, External Ris In - 03/13/2017 12:27 PM SCREED OPERATOR FINAL REPORT MRI of the abdomen, MRCP. [...] Report Verified Date/Time: 03/13/2017 12:25:41 Reading Location: [address] Consult Reading Room Manual Differential (03/11/2017 5:44 AM)Only the most recent of2 resultswithin the time period is included. Component Value Ref Range Total Counted WBC Morphology Normal Platelet Morphology Normal RBC Morphology Normal Specimen Performing Laboratory Blood - Line, Venous [address] [address] Prothrombin time/INR (03/09/2017 9:54 AM) Component Value Ref Range Protime 14.3 11.7 - 14.7 seconds INR 1.1 <=5.9 Specimen Performing Laboratory Blood [address] [address] Narrative RECOMMENDED COUMADIN/WARFARIN INR THERAPY RANGES STANDARD DOSE: 2.0 - 3.0 Includes: PROPHYLAXIS for venous thrombosis, systemic embolization; TREATMENT for venous thrombosis and/or pulmonary embolus. HIGH RISK: Target INR is 2.5-3.5 for patients with mechanical heart valves. Triglycerides (03/09/2017 9:54 AM) Component Value Ref Range Triglycerides 58 mg/dL Specimen Performing Laboratory Blood [address] [address] Narrative TRIGLYCERIDE REFERENCE RANGE Low Risk<150 Borderline Risk 150-199 High Lkso327-210 Very High Risk >=500 Magnesium (03/09/2017 9:54 AM) Component Value Ref Range Magnesium 1.4 (L) 1.6 - 2.6 mg/dL Specimen Performing Laboratory Blood [address] [address] after 07/20/2016
--- OUTSIDE RECORDS SUMMARY | 2017-07-21 05:00 | XMS REPORT ---
:1980 [facility] [address] [place] [address] Care Team Providers Name Role Phone LILIA [...] TOTAL PROTEIN (BEAKER) (test 7.8 gm/dL 6.0-8.3 onij=647) ALBUMIN (BEAKER) (test 3.9 g/dL 3.5-5.0 twuc=2716) ALKALINE PHOSPHATASE 62 U/L 40-150 (BEAKER) (test zvku=498) BILIRUBIN TOTAL (BEAKER) 0.3 mg/dL 0.2-1.2 (test dmht=465) SODIUM (BEAKER) (test 139 meq/L 136-145 eyhs=800) POTASSIUM (BEAKER) (test 4.2 meq/L 3.5-5.1 xidt=947) CHLORIDE (BEAKER) (test 104 meq/L 98-107 ttdr=403) CO2 (BEAKER) (test xper=044) 26 meq/L 22-29 BLOOD UREA NITROGEN (BEAKER) 9 mg/dL 7-21 (test ztxx=512) CREATININE (BEAKER) (test 0.64 mg/dL 0.57-1.25 bxwp=702) GLUCOSE RANDOM (BEAKER) 78 mg/dL 70-105 (test snhh=876) CALCIUM (BEAKER) (test 9.5 mg/dL 8.4-10.2 bwyu=840) AST (SGOT) (BEAKER) (test 18 U/L 5-34 qtch=834) ALT (SGPT) (BEAKER) (test 8 U/L 6-55 thei=774) EGFR (BEAKER) (test 141 mL/min/1.73 sq m ESTIMATED GFR IS NOT arhz=8992) ACCURATE CREATININE CLEARANCE IN PREDICTING GLOMERULAR FILTRATION RATE. ESTIMATED GFR IS NOT APPLICABLE FOR DIALYSIS PATIENTS. COMPREHENSIVE METABOLIC [id number] 06:08:00 Test Item Value Reference Range Comments TOTAL PROTEIN (BEAKER) 7.0 gm/dL 6.0-8.3 Specimen slightly (test cnwu=136) hemolyzed ALBUMIN (BEAKER) (test 3.4 g/dL 3.5-5.0 Specimen slightly ukpz=6332) hemolyzed ALKALINE PHOSPHATASE 58 U/L 40-150 (BEAKER) (test vhie=291) BILIRUBIN TOTAL (BEAKER) 0.4 mg/dL 0.2-1.2 Specimen slightly (test bzof=038) hemolyzed SODIUM (BEAKER) (test 139 meq/L 136-145 rkmd=967) POTASSIUM (BEAKER) (test 4.5 meq/L 3.5-5.1 Specimen slightly plrt=190) hemolyzed CHLORIDE (BEAKER) (test 103 meq/L 98-107 opaf=355) CO2 (BEAKER) (test 27 meq/L 22-29 smqx=014) BLOOD UREA NITROGEN 2 mg/dL 7-21 (BEAKER) (test qrbu=317) CREATININE (BEAKER) (test 0.55 mg/dL 0.57-1.25 Specimen slightly qvin=006) hemolyzed GLUCOSE RANDOM (BEAKER) 85 mg/dL 70-105 (test xoyo=103) CALCIUM (BEAKER) (test 9.3 mg/dL 8.4-10.2 xwxm=774) AST (SGOT) (BEAKER) (test 18 U/L 5-34 Specimen slightly gxrp=748) hemolyzed ALT (SGPT) (BEAKER) (test 8 U/L 6-55 Specimen slightly vipb=183) hemolyzed EGFR (BEAKER) (test 168 mL/min/1.73 sq ESTIMATED GFR IS NOT orqf=1872) m ACCURATE CREATININE CLEARANCE IN PREDICTING GLOMERULAR FILTRATION RATE. ESTIMATED GFR IS NOT APPLICABLE FOR DIALYSIS PATIENTS. CBC (HEMOGRAM ONLY)2017-05-17 05:20:00 Test Item Value Reference Range Comments WHITE BLOOD CELL COUNT (BEAKER) (test lqmm=658) 6.4 K/ L 3.5-10.5 RED BLOOD CELL COUNT (BEAKER) (test ifjq=404) 3.84 M/ L 4.63-6.08 HEMOGLOBIN (BEAKER) (test jblq=472) 11.5 GM/DL 13.7-17.5 HEMATOCRIT (BEAKER) (test vvaj=327) 35.2 % 40.1-51.0 MEAN CORPUSCULAR VOLUME (BEAKER) (test hmqf=378) 91.7 fL 79.0-92.2 MEAN CORPUSCULAR HEMOGLOBIN (BEAKER) (test 29.9 pg 25.7-32.2 qbwn=062) MEAN CORPUSCULAR HEMOGLOBIN CONC (BEAKER) (test 32.7 GM/DL 32.3-36.5 njjf=852) RED CELL DISTRIBUTION WIDTH (BEAKER) (test 14.1 % 11.6-14.4 htrc=885) PLATELET COUNT (BEAKER) (test fnad=745) 434 K/CU MM 150-450 MEAN PLATELET VOLUME (BEAKER) (test fgus=827) 9.4 fL 9.4-12.4 NUCLEATED RED BLOOD CELLS (BEAKER) (test 0 /100 WBC 0-0 hixo=051) HEPATIC FUNCTION [id number] 11:22:00 Test Item Value Reference Range Comments TOTAL PROTEIN (BEAKER) (test fqwf=193) 6.9 gm/dL 6.0-8.3 ALBUMIN (BEAKER) (test icrb=2007) 3.4 g/dL 3.5-5.0 BILIRUBIN TOTAL (BEAKER) (test jqxr=664) 0.4 mg/dL 0.2-1.2 BILIRUBIN DIRECT (BEAKER) (test zcrs=744) 0.2 mg/dL 0.1-0.5 ALKALINE PHOSPHATASE (BEAKER) (test qcml=927) 65 U/L 40-150 AST (SGOT) (BEAKER) (test uzrv=281) 14 U/L 5-34 ALT (SGPT) (BEAKER) (test wztj=199) 8 U/L 6-55 CBC W/PLT COUNT & AUTO [id number] 11:16:00 Test Item Value Reference Range Comments WHITE BLOOD CELL COUNT (BEAKER) (test vnqe=066) 7.0 K/ L 3.5-10.5 RED BLOOD CELL COUNT (BEAKER) (test cvxy=328) 3.90 M/ L 4.63-6.08 HEMOGLOBIN (BEAKER) (test qxod=610) 11.9 GM/DL 13.7-17.5 HEMATOCRIT (BEAKER) (test tgre=295) 35.7 % 40.1-51.0 MEAN CORPUSCULAR VOLUME (BEAKER) (test xaez=858) 91.5 fL 79.0-92.2 MEAN CORPUSCULAR HEMOGLOBIN (BEAKER) (test 30.5 pg 25.7-32.2 llyl=447) MEAN CORPUSCULAR HEMOGLOBIN CONC (BEAKER) (test 33.3 GM/DL 32.3-36.5 jdgj=388) RED CELL DISTRIBUTION WIDTH (BEAKER) (test 14.0 % 11.6-14.4 jsku=294) PLATELET COUNT (BEAKER) (test vjod=491) 452 K/CU MM 150-450 MEAN PLATELET VOLUME (BEAKER) (test funa=435) 9.0 fL 9.4-12.4 NUCLEATED RED BLOOD CELLS (BEAKER) (test 0 /100 WBC 0-0 hxee=083) NEUTROPHILS RELATIVE PERCENT (BEAKER) (test 59 % qmpz=815) LYMPHOCYTES RELATIVE PERCENT (BEAKER) (test 21 % zqry=031) MONOCYTES RELATIVE PERCENT (BEAKER) (test 8 % rems=399) EOSINOPHILS RELATIVE PERCENT (BEAKER) (test 10 % qmkz=589) BASOPHILS RELATIVE PERCENT (BEAKER) (test 1 % budo=405) NEUTROPHILS ABSOLUTE COUNT (BEAKER) (test 4.12 K/ L 1.78-5.38 tsxu=023) LYMPHOCYTES ABSOLUTE COUNT (BEAKER) (test 1.45 K/ L 1.32-3.57 gnhn=632) MONOCYTES ABSOLUTE COUNT (BEAKER) (test 0.58 K/ L 0.30-0.82 gyob=173) EOSINOPHILS ABSOLUTE COUNT (BEAKER) (test 0.70 K/ L 0.04-0.54 gffa=705) BASOPHILS ABSOLUTE COUNT (BEAKER) (test 0.10 K/ L 0.01-0.08 egcf=793) IMMATURE GRANULOCYTES-RELATIVE PERCENT (BEAKER) 0 % 0-1 (test qxlk=7953) BASIC METABOLIC [id number] 06:43:00 Test Item Value Reference Range Comments SODIUM (BEAKER) (test 138 meq/L 136-145 pejo=243) POTASSIUM (BEAKER) (test 3.5 meq/L 3.5-5.1 wkli=804) CHLORIDE (BEAKER) (test 100 meq/L 98-107 wjhp=664) CO2 (BEAKER) (test 27 meq/L 22-29 kdtk=083) BLOOD UREA NITROGEN 2 mg/dL 7-21 (BEAKER) (test hhit=141) CREATININE (BEAKER) (test 0.53 mg/dL 0.57-1.25 uzmg=707) GLUCOSE RANDOM (BEAKER) 82 mg/dL 70-105 (test lris=880) CALCIUM (BEAKER) (test 9.0 mg/dL 8.4-10.2 jcdm=649) EGFR (BEAKER) (test 175 mL/min/1.73 sq m ESTIMATED GFR IS NOT fihb=4916) ACCURATE CREATININE CLEARANCE IN PREDICTING GLOMERULAR FILTRATION RATE. ESTIMATED GFR IS NOT APPLICABLE FOR DIALYSIS PATIENTS. BASIC METABOLIC [id number] 05:14:00 Test Item Value Reference Range Comments SODIUM (BEAKER) (test 132 meq/L 136-145 aije=482) POTASSIUM (BEAKER) (test 3.8 meq/L 3.5-5.1 qpok=872) CHLORIDE (BEAKER) (test 101 meq/L 98-107 bfkh=235) CO2 (BEAKER) (test 18 meq/L 22-29 uwwj=622) BLOOD UREA NITROGEN 4 mg/dL 7-21 (BEAKER) (test athc=889) CREATININE (BEAKER) (test 0.52 mg/dL 0.57-1.25 crtt=015) GLUCOSE RANDOM (BEAKER) 58 mg/dL 70-105 (test gfug=060) CALCIUM (BEAKER) (test 8.7 mg/dL 8.4-10.2 wezc=905) EGFR (BEAKER) (test 179 mL/min/1.73 sq m ESTIMATED GFR IS NOT swvl=1531) ACCURATE CREATININE CLEARANCE IN PREDICTING GLOMERULAR FILTRATION RATE. ESTIMATED GFR IS NOT APPLICABLE FOR DIALYSIS PATIENTS. CBC (HEMOGRAM ONLY)2017-05-15 04:57:00 Test Item Value Reference Range Comments WHITE BLOOD CELL COUNT (BEAKER) (test rykj=529) 13.4 K/ L 3.5-10.5 RED BLOOD CELL COUNT (BEAKER) (test qovf=871) 3.81 M/ L 4.63-6.08 HEMOGLOBIN (BEAKER) (test ikbx=699) 11.4 GM/DL 13.7-17.5 HEMATOCRIT (BEAKER) (test mulj=540) 35.1 % 40.1-51.0 MEAN CORPUSCULAR VOLUME (BEAKER) (test jhbk=036) 92.1 fL 79.0-92.2 MEAN CORPUSCULAR HEMOGLOBIN (BEAKER) (test 29.9 pg 25.7-32.2 xduv=727) MEAN CORPUSCULAR HEMOGLOBIN CONC (BEAKER) (test 32.5 GM/DL 32.3-36.5 krux=475) RED CELL DISTRIBUTION WIDTH (BEAKER) (test 14.3 % 11.6-14.4 nztl=828) PLATELET COUNT (BEAKER) (test xuhh=297) 502 K/CU MM 150-450 MEAN PLATELET VOLUME (BEAKER) (test egyj=758) 9.6 fL 9.4-12.4 NUCLEATED RED BLOOD CELLS (BEAKER) (test 0 /100 WBC 0-0 vdtp=970) LIPID [id number] 05:00:00 Test Item Value Reference Range Comments TRIGLYCERIDES (BEAKER) (test xbwf=735) 71 mg/dL CHOLESTEROL (BEAKER) (test jgco=686) 108 mg/dL HDL CHOLESTEROL (BEAKER) (test ourr=811) 22 mg/dL LDL CHOLESTEROL CALCULATED (BEAKER) (test 72 mg/dL mfjf=353) Triglyceride Reference Range: Low Risk <150 Borderline 150- 199 High Risk 200-499 Very High Risk >=500Cholesterol Reference Range: Low Risk <200 Borderline 200-239 High Risk > 240HDL Cholesterol Reference Range: Low Risk >=60 High Risk <40LDL Cholesterol Reference Range: Optimal <100 Near Optimal 100-129 Borderline 130-159 High 160-189 Very High >=190BASIC METABOLIC [id number] 05:00:00 Test Item Value Reference Range Comments SODIUM (BEAKER) (test 133 meq/L 136-145 rgod=586) POTASSIUM (BEAKER) (test 4.1 meq/L 3.5-5.1 iyac=902) CHLORIDE (BEAKER) (test 105 meq/L 98-107 hyxx=828) CO2 (BEAKER) (test 17 meq/L 22-29 bfst=875) BLOOD UREA NITROGEN 8 mg/dL 7-21 (BEAKER) (test dvix=687) CREATININE (BEAKER) (test 0.51 mg/dL 0.57-1.25 jejp=973) GLUCOSE RANDOM (BEAKER) 54 mg/dL 70-105 (test yced=534) CALCIUM (BEAKER) (test 8.4 mg/dL 8.4-10.2 ljvb=980) EGFR (BEAKER) (test 183 mL/min/1.73 sq m ESTIMATED GFR IS NOT afgs=5418) ACCURATE CREATININE CLEARANCE IN PREDICTING GLOMERULAR FILTRATION RATE. ESTIMATED GFR IS NOT APPLICABLE FOR DIALYSIS PATIENTS. HEPATIC FUNCTION [id number] 05:00:00 Test Item Value Reference Range Comments TOTAL PROTEIN (BEAKER) (test gvzs=944) 6.3 gm/dL 6.0-8.3 ALBUMIN (BEAKER) (test tcyi=2760) 3.2 g/dL 3.5-5.0 BILIRUBIN TOTAL (BEAKER) (test euar=796) 0.7 mg/dL 0.2-1.2 BILIRUBIN DIRECT (BEAKER) (test hhvk=617) 0.3 mg/dL 0.1-0.5 ALKALINE PHOSPHATASE (BEAKER) (test mulg=791) 62 U/L 40-150 AST (SGOT) (BEAKER) (test hikz=124) 13 U/L 5-34 ALT (SGPT) (BEAKER) (test ocxm=557) 9 U/L 6-55 [id number] 05:00:00 Test Item Value Reference Range Comments LIPASE (BEAKER) (test vuzq=272) 1007 U/L 8-78 CBC (HEMOGRAM ONLY)2017-05-14 04:39:00 Test Item Value Reference Range Comments WHITE BLOOD CELL COUNT (BEAKER) (test cygq=312) 16.6 K/ L 3.5-10.5 RED BLOOD CELL COUNT (BEAKER) (test zkud=260) 3.98 M/ L 4.63-6.08 HEMOGLOBIN (BEAKER) (test zlqq=714) 12.0 GM/DL 13.7-17.5 HEMATOCRIT (BEAKER) (test cjrq=329) 37.2 % 40.1-51.0 MEAN CORPUSCULAR VOLUME (BEAKER) (test iwzo=687) 93.5 fL 79.0-92.2 MEAN CORPUSCULAR HEMOGLOBIN (BEAKER) (test 30.2 pg 25.7-32.2 nxar=366) MEAN CORPUSCULAR HEMOGLOBIN CONC (BEAKER) (test 32.3 GM/DL 32.3-36.5 tsqf=367) RED CELL DISTRIBUTION WIDTH (BEAKER) (test 14.5 % 11.6-14.4 ible=123) PLATELET COUNT (BEAKER) (test zwfr=649) 527 K/CU MM 150-450 MEAN PLATELET VOLUME (BEAKER) (test lbpk=447) 9.5 fL 9.4-12.4 NUCLEATED RED BLOOD CELLS (BEAKER) (test 0 /100 WBC 0-0 dajm=219) MR, ABDOMEN, [id number] 12:25:00FINAL REPORT MRI of the abdomen, MRCP. [...] MDReport Verified Date/Time: 03/13/2017 12:25:41 Reading Location: [address] Ortho Consult Reading Room Electronically signed by: KIKO VEE M.D. on 12:25 [facility] [id number] 05:05:00 Test Item Value Reference Range Comments SODIUM (BEAKER) (test 139 meq/L 136-145 nqjv=025) POTASSIUM (BEAKER) (test 3.7 meq/L 3.5-5.1 adfv=227) CHLORIDE (BEAKER) (test 108 meq/L 98-107 pzfa=955) CO2 (BEAKER) (test 22 meq/L 22-29 vczc=861) BLOOD UREA NITROGEN 4 mg/dL 7-21 (BEAKER) (test xaji=068) CREATININE (BEAKER) (test 0.58 mg/dL 0.57-1.25 cjsg=401) GLUCOSE RANDOM (BEAKER) 95 mg/dL 70-105 (test blgh=934) CALCIUM (BEAKER) (test 8.5 mg/dL 8.4-10.2 rxpy=383) EGFR (BEAKER) (test 158 mL/min/1.73 sq m ESTIMATED GFR IS NOT jddl=6668) ACCURATE CREATININE CLEARANCE IN PREDICTING GLOMERULAR FILTRATION RATE. ESTIMATED GFR IS NOT APPLICABLE FOR DIALYSIS PATIENTS. CBC W/PLT COUNT & AUTO [id number] 04:49:00 Test Item Value Reference Range Comments WHITE BLOOD CELL COUNT (BEAKER) (test cprw=858) 6.3 K/ L 3.5-10.5 RED BLOOD CELL COUNT (BEAKER) (test olwz=621) 4.32 M/ L 4.63-6.08 HEMOGLOBIN (BEAKER) (test bzsa=149) 13.7 GM/DL 13.7-17.5 HEMATOCRIT (BEAKER) (test ctcu=818) 40.3 % 40.1-51.0 MEAN CORPUSCULAR VOLUME (BEAKER) (test gsfd=301) 93.3 fL 79.0-92.2 MEAN CORPUSCULAR HEMOGLOBIN (BEAKER) (test 31.7 pg 25.7-32.2 lyrs=036) MEAN CORPUSCULAR HEMOGLOBIN CONC (BEAKER) (test 34.0 GM/DL 32.3-36.5 lxjd=081) RED CELL DISTRIBUTION WIDTH (BEAKER) (test 11.9 % 11.6-14.4 rzyt=020) PLATELET COUNT (BEAKER) (test uyqi=069) 286 K/CU MM 150-450 MEAN PLATELET VOLUME (BEAKER) (test udkp=646) 9.4 fL 9.4-12.4 NUCLEATED RED BLOOD CELLS (BEAKER) (test 0 /100 WBC 0-0 bkps=930) NEUTROPHILS RELATIVE PERCENT (BEAKER) (test 51 % qdnh=974) LYMPHOCYTES RELATIVE PERCENT (BEAKER) (test 31 % pkbl=195) MONOCYTES RELATIVE PERCENT (BEAKER) (test 11 % gtst=505) EOSINOPHILS RELATIVE PERCENT (BEAKER) (test 6 % fell=778) BASOPHILS RELATIVE PERCENT (BEAKER) (test 1 % iydn=806) NEUTROPHILS ABSOLUTE COUNT (BEAKER) (test 3.21 K/ L 1.78-5.38 zqcs=561) LYMPHOCYTES ABSOLUTE COUNT (BEAKER) (test 1.91 K/ L 1.32-3.57 thjz=876) MONOCYTES ABSOLUTE COUNT (BEAKER) (test 0.68 K/ L 0.30-0.82 meig=247) EOSINOPHILS ABSOLUTE COUNT (BEAKER) (test 0.40 K/ L 0.04-0.54 ljix=617) BASOPHILS ABSOLUTE COUNT (BEAKER) (test 0.04 K/ L 0.01-0.08 lapv=213) IMMATURE GRANULOCYTES-RELATIVE PERCENT (BEAKER) 1 % 0-1 (test twkb=1962) CBC W/PLT COUNT & AUTO [id number] 04:52:00 Test Item Value Reference Range Comments WHITE BLOOD CELL COUNT (BEAKER) (test hqlx=448) 6.2 K/ L 3.5-10.5 RED BLOOD CELL COUNT (BEAKER) (test ehgz=296) 4.31 M/ L 4.63-6.08 HEMOGLOBIN (BEAKER) (test dibw=438) 13.7 GM/DL 13.7-17.5 HEMATOCRIT (BEAKER) (test itug=052) 41.1 % 40.1-51.0 MEAN CORPUSCULAR VOLUME (BEAKER) (test hkys=883) 95.4 fL 79.0-92.2 MEAN CORPUSCULAR HEMOGLOBIN (BEAKER) (test 31.8 pg 25.7-32.2 dlgo=955) MEAN CORPUSCULAR HEMOGLOBIN CONC (BEAKER) (test 33.3 GM/DL 32.3-36.5 rfuu=547) RED CELL DISTRIBUTION WIDTH (BEAKER) (test 12.1 % 11.6-14.4 pebx=662) PLATELET COUNT (BEAKER) (test zefy=535) 295 K/CU MM 150-450 MEAN PLATELET VOLUME (BEAKER) (test ksqs=102) 9.5 fL 9.4-12.4 NUCLEATED RED BLOOD CELLS (BEAKER) (test 0 /100 WBC 0-0 zlmb=873) NEUTROPHILS RELATIVE PERCENT (BEAKER) (test 51 % grhz=503) LYMPHOCYTES RELATIVE PERCENT (BEAKER) (test 31 % mshi=411) MONOCYTES RELATIVE PERCENT (BEAKER) (test 11 % jpqe=772) EOSINOPHILS RELATIVE PERCENT (BEAKER) (test 7 % kwjl=491) BASOPHILS RELATIVE PERCENT (BEAKER) (test 1 % jcca=240) NEUTROPHILS ABSOLUTE COUNT (BEAKER) (test 3.17 K/ L 1.78-5.38 myku=251) LYMPHOCYTES ABSOLUTE COUNT (BEAKER) (test 1.89 K/ L 1.32-3.57 nlpy=050) MONOCYTES ABSOLUTE COUNT (BEAKER) (test 0.65 K/ L 0.30-0.82 mrsl=993) EOSINOPHILS ABSOLUTE COUNT (BEAKER) (test 0.41 K/ L 0.04-0.54 bopy=079) BASOPHILS ABSOLUTE COUNT (BEAKER) (test 0.05 K/ L 0.01-0.08 ikam=712) IMMATURE GRANULOCYTES-RELATIVE PERCENT (BEAKER) 1 % 0-1 (test syco=8858) COMPREHENSIVE METABOLIC [id number] 11:20:00 Test Item Value Reference Range Comments TOTAL PROTEIN (BEAKER) 7.2 gm/dL 6.0-8.3 (test busa=639) ALBUMIN (BEAKER) (test 3.7 g/dL 3.5-5.0 kzxa=9371) ALKALINE PHOSPHATASE 73 U/L 40-150 (BEAKER) (test dyoj=900) BILIRUBIN TOTAL (BEAKER) 0.6 mg/dL 0.2-1.2 (test lawc=331) SODIUM (BEAKER) (test 135 meq/L 136-145 mvlu=586) POTASSIUM (BEAKER) (test 5.0 meq/L 3.5-5.1 jamz=693) CHLORIDE (BEAKER) (test 109 meq/L 98-107 usok=275) CO2 (BEAKER) (test 14 meq/L 22-29 abxr=452) BLOOD UREA NITROGEN 6 mg/dL 7-21 (BEAKER) (test omxw=941) CREATININE (BEAKER) (test 0.62 mg/dL 0.57-1.25 tmhk=141) GLUCOSE RANDOM (BEAKER) 45 mg/dL 70-105 (test zcod=119) CALCIUM (BEAKER) (test 8.6 mg/dL 8.4-10.2 jgmy=123) AST (SGOT) (BEAKER) (test 17 U/L 5-34 izwu=407) ALT (SGPT) (BEAKER) (test 14 U/L 6-55 byhr=220) EGFR (BEAKER) (test 146 mL/min/1.73 sq ESTIMATED GFR IS NOT kqxz=7247) m ACCURATE CREATININE CLEARANCE IN PREDICTING GLOMERULAR FILTRATION RATE. ESTIMATED GFR IS NOT APPLICABLE FOR DIALYSIS PATIENTS. CBC W/PLT COUNT & AUTO [id number] 09:54:00 Test Item Value Reference Range Comments WHITE BLOOD CELL COUNT (BEAKER) (test cdtx=376) 7.4 K/ L 3.5-10.5 RED BLOOD CELL COUNT (BEAKER) (test zbhr=066) 4.32 M/ L 4.63-6.08 HEMOGLOBIN (BEAKER) (test bzzs=375) 13.6 GM/DL 13.7-17.5 HEMATOCRIT (BEAKER) (test ohju=833) 41.8 % 40.1-51.0 MEAN CORPUSCULAR VOLUME (BEAKER) (test oogv=835) 96.8 fL 79.0-92.2 MEAN CORPUSCULAR HEMOGLOBIN (BEAKER) (test 31.5 pg 25.7-32.2 qjjh=863) MEAN CORPUSCULAR HEMOGLOBIN CONC (BEAKER) (test 32.5 GM/DL 32.3-36.5 mjxy=204) RED CELL DISTRIBUTION WIDTH (BEAKER) (test 12.1 % 11.6-14.4 jiep=797) PLATELET COUNT (BEAKER) (test liaz=588) 277 K/CU MM 150-450 MEAN PLATELET VOLUME (BEAKER) (test ufyv=476) 9.7 fL 9.4-12.4 NUCLEATED RED BLOOD CELLS (BEAKER) (test 0 /100 WBC 0-0 ylnf=539) NEUTROPHILS RELATIVE PERCENT (BEAKER) (test 57 % hrsa=088) LYMPHOCYTES RELATIVE PERCENT (BEAKER) (test 29 % zjry=419) MONOCYTES RELATIVE PERCENT (BEAKER) (test 8 % zytv=472) EOSINOPHILS RELATIVE PERCENT (BEAKER) (test 5 % sdpl=935) BASOPHILS RELATIVE PERCENT (BEAKER) (test 1 % zxem=049) NEUTROPHILS ABSOLUTE COUNT (BEAKER) (test 4.23 K/ L 1.78-5.38 trgc=450) LYMPHOCYTES ABSOLUTE COUNT (BEAKER) (test 2.10 K/ L 1.32-3.57 afgm=567) MONOCYTES ABSOLUTE COUNT (BEAKER) (test 0.57 K/ L 0.30-0.82 kopc=377) EOSINOPHILS ABSOLUTE COUNT (BEAKER) (test 0.38 K/ L 0.04-0.54 doyq=983) BASOPHILS ABSOLUTE COUNT (BEAKER) (test 0.05 K/ L 0.01-0.08 yzrt=052) IMMATURE GRANULOCYTES-RELATIVE PERCENT (BEAKER) 1 % 0-1 (test clgm=7060) (MANUAL DIFFERENTIAL)2017-03-11 09:54:00 Test Item Value Reference Range Comments TOTAL COUNTED (BEAKER) (test xuhj=6350) WBC MORPHOLOGY (BEAKER) (test rato=988) Normal PLT MORPHOLOGY (BEAKER) (test ahdz=525) Normal RBC MORPHOLOGY (BEAKER) (test fpsw=563) Normal CBC W/PLT COUNT & AUTO [id number] 09:09:00 Test Item Value Reference Range Comments WHITE BLOOD CELL COUNT (BEAKER) (test sfks=612) 8.9 K/ L 3.5-10.5 RED BLOOD CELL COUNT (BEAKER) (test gfkb=622) 4.25 M/ L 4.63-6.08 HEMOGLOBIN (BEAKER) (test tito=109) 13.6 GM/DL 13.7-17.5 HEMATOCRIT (BEAKER) (test izjm=222) 40.7 % 40.1-51.0 MEAN CORPUSCULAR VOLUME (BEAKER) (test ivdr=850) 95.8 fL 79.0-92.2 MEAN CORPUSCULAR HEMOGLOBIN (BEAKER) (test 32.0 pg 25.7-32.2 huku=830) MEAN CORPUSCULAR HEMOGLOBIN CONC (BEAKER) (test 33.4 GM/DL 32.3-36.5 apxo=465) RED CELL DISTRIBUTION WIDTH (BEAKER) (test 12.1 % 11.6-14.4 unzi=682) PLATELET COUNT (BEAKER) (test rzcl=854) 274 K/CU MM 150-450 MEAN PLATELET VOLUME (BEAKER) (test iawl=899) 9.8 fL 9.4-12.4 NUCLEATED RED BLOOD CELLS (BEAKER) (test 0 /100 WBC 0-0 hbiv=509) NEUTROPHILS RELATIVE PERCENT (BEAKER) (test 62 % zbsz=228) LYMPHOCYTES RELATIVE PERCENT (BEAKER) (test 24 % zljm=151) MONOCYTES RELATIVE PERCENT (BEAKER) (test 7 % agka=281) EOSINOPHILS RELATIVE PERCENT (BEAKER) (test 5 % bnhl=348) BASOPHILS RELATIVE PERCENT (BEAKER) (test 1 % tijf=783) NEUTROPHILS ABSOLUTE COUNT (BEAKER) (test 5.55 K/ L 1.78-5.38 rwjb=452) LYMPHOCYTES ABSOLUTE COUNT (BEAKER) (test 2.14 K/ L 1.32-3.57 jfyt=239) MONOCYTES ABSOLUTE COUNT (BEAKER) (test 0.64 K/ L 0.30-0.82 pfac=552) EOSINOPHILS ABSOLUTE COUNT (BEAKER) (test 0.48 K/ L 0.04-0.54 gjoe=417) BASOPHILS ABSOLUTE COUNT (BEAKER) (test 0.07 K/ L 0.01-0.08 fypx=970) IMMATURE GRANULOCYTES-RELATIVE PERCENT (BEAKER) 0 % 0-1 (test yghd=7831) (MANUAL DIFFERENTIAL)2017-03-10 09:09:00 Test Item Value Reference Range Comments TOTAL COUNTED (BEAKER) (test bjwj=0227) WBC MORPHOLOGY (BEAKER) (test ukuy=884) Normal PLT MORPHOLOGY (BEAKER) (test wbdy=480) Normal RBC MORPHOLOGY (BEAKER) (test uism=996) Normal COMPREHENSIVE METABOLIC [id number] 07:30:00 Test Item Value Reference Range Comments TOTAL PROTEIN (BEAKER) 6.8 gm/dL 6.0-8.3 (test ygkp=109) ALBUMIN (BEAKER) (test 3.6 g/dL 3.5-5.0 odey=5323) ALKALINE PHOSPHATASE 77 U/L 40-150 (BEAKER) (test ofyw=163) BILIRUBIN TOTAL (BEAKER) 0.6 mg/dL 0.2-1.2 (test peqg=019) SODIUM (BEAKER) (test 136 meq/L 136-145 sieu=531) POTASSIUM (BEAKER) (test 4.3 meq/L 3.5-5.1 xiyl=225) CHLORIDE (BEAKER) (test 105 meq/L 98-107 hxih=244) CO2 (BEAKER) (test 19 meq/L 22-29 egaa=134) BLOOD UREA NITROGEN 6 mg/dL 7-21 (BEAKER) (test cguy=377) CREATININE (BEAKER) (test 0.57 mg/dL 0.57-1.25 xbhv=077) GLUCOSE RANDOM (BEAKER) 52 mg/dL 70-105 (test axje=541) CALCIUM (BEAKER) (test 8.2 mg/dL 8.4-10.2 qxcu=014) AST (SGOT) (BEAKER) (test 17 U/L 5-34 mmcr=677) ALT (SGPT) (BEAKER) (test 14 U/L 6-55 pvoc=219) EGFR (BEAKER) (test 161 mL/min/1.73 sq ESTIMATED GFR IS NOT zvyf=5582) m ACCURATE CREATININE CLEARANCE IN PREDICTING GLOMERULAR FILTRATION RATE. ESTIMATED GFR IS NOT APPLICABLE FOR DIALYSIS PATIENTS. CBC W/PLT COUNT & AUTO [id number] 10:49:00 Test Item Value Reference Range Comments WHITE BLOOD CELL COUNT (BEAKER) (test bvop=398) 6.9 K/ L 3.5-10.5 RED BLOOD CELL COUNT (BEAKER) (test shjl=801) 3.83 M/ L 4.63-6.08 HEMOGLOBIN (BEAKER) (test cnma=053) 12.5 GM/DL 13.7-17.5 HEMATOCRIT (BEAKER) (test zoir=674) 36.7 % 40.1-51.0 MEAN CORPUSCULAR VOLUME (BEAKER) (test ikgj=419) 95.8 fL 79.0-92.2 MEAN CORPUSCULAR HEMOGLOBIN (BEAKER) (test 32.6 pg 25.7-32.2 yihn=584) MEAN CORPUSCULAR HEMOGLOBIN CONC (BEAKER) (test 34.1 GM/DL 32.3-36.5 xflg=510) RED CELL DISTRIBUTION WIDTH (BEAKER) (test 12.4 % 11.6-14.4 cyxn=303) PLATELET COUNT (BEAKER) (test uzdr=997) 267 K/CU MM 150-450 MEAN PLATELET VOLUME (BEAKER) (test kxix=219) 9.7 fL 9.4-12.4 NUCLEATED RED BLOOD CELLS (BEAKER) (test 0 /100 WBC 0-0 lmyw=618) NEUTROPHILS RELATIVE PERCENT (BEAKER) (test 60 % qsfu=813) LYMPHOCYTES RELATIVE PERCENT (BEAKER) (test 26 % duoy=967) MONOCYTES RELATIVE PERCENT (BEAKER) (test 7 % kjui=602) EOSINOPHILS RELATIVE PERCENT (BEAKER) (test 6 % srzi=422) BASOPHILS RELATIVE PERCENT (BEAKER) (test 1 % wiwd=026) NEUTROPHILS ABSOLUTE COUNT (BEAKER) (test 4.15 K/ L 1.78-5.38 vgqq=364) LYMPHOCYTES ABSOLUTE COUNT (BEAKER) (test 1.82 K/ L 1.32-3.57 rcgn=799) MONOCYTES ABSOLUTE COUNT (BEAKER) (test 0.47 K/ L 0.30-0.82 engy=417) EOSINOPHILS ABSOLUTE COUNT (BEAKER) (test 0.38 K/ L 0.04-0.54 qkbd=476) BASOPHILS ABSOLUTE COUNT (BEAKER) (test 0.04 K/ L 0.01-0.08 jjwi=205) COMPREHENSIVE METABOLIC [id number] 10:45:00 Test Item Value Reference Range Comments TOTAL PROTEIN (BEAKER) 6.2 gm/dL 6.0-8.3 (test ceko=287) ALBUMIN (BEAKER) (test 3.3 g/dL 3.5-5.0 qecu=0721) ALKALINE PHOSPHATASE 70 U/L 40-150 (BEAKER) (test soxe=722) BILIRUBIN TOTAL (BEAKER) 0.4 mg/dL 0.2-1.2 (test mbll=588) SODIUM (BEAKER) (test 138 meq/L 136-145 fzmx=919) POTASSIUM (BEAKER) (test 3.5 meq/L 3.5-5.1 kvgz=099) CHLORIDE (BEAKER) (test 109 meq/L 98-107 wbnl=415) CO2 (BEAKER) (test 23 meq/L 22-29 nkzu=272) BLOOD UREA NITROGEN 5 mg/dL 7-21 (BEAKER) (test aqdb=550) CREATININE (BEAKER) (test 0.54 mg/dL 0.57-1.25 ydal=957) GLUCOSE RANDOM (BEAKER) 77 mg/dL 70-105 (test ssav=925) CALCIUM (BEAKER) (test 7.6 mg/dL 8.4-10.2 twhe=732) AST (SGOT) (BEAKER) (test 18 U/L 5-34 tkfn=883) ALT (SGPT) (BEAKER) (test 15 U/L 6-55 xlmh=664) EGFR (BEAKER) (test 171 mL/min/1.73 sq ESTIMATED GFR IS NOT mpaa=4378) m ACCURATE CREATININE CLEARANCE IN PREDICTING GLOMERULAR FILTRATION RATE. ESTIMATED GFR IS NOT APPLICABLE FOR DIALYSIS PATIENTS. [id number] 10:29:00 Test Item Value Reference Range Comments TRIGLYCERIDES (BEAKER) (test jolr=040) 58 mg/dL TRIGLYCERIDE REFERENCE RANGELow Risk <150Borderline Risk 150-199High Risk 200-499Very High Risk>=[id number] 10:29:00 Test Item Value Reference Range Comments MAGNESIUM (BEAKER) (test dffx=989) 1.4 mg/dL 1.6-2.6 [id number] 10:29:00 Test Item Value Reference Range Comments LIPASE (BEAKER) (test cirg=171) 536 U/L 8-78 PROTHROMBIN [id number] 10:22:00 Test Item Value Reference Range Comments PROTIME (BEAKER) (test hpbj=334) 14.3 seconds 11.7-14.7 INR (BENOITAKER) (test ceme=350) 1.1 <=5.9 RECOMMENDED COUMADIN/WARFARIN INR THERAPY RANGESSTANDARD DOSE: 2.0 - 3.0 Includes: PROPHYLAXIS forvenous thrombosis, systemic embolization; TREATMENT for venous thrombosis and/or pulmonary embolus.HIGH RISK: Target INR is 2.5-3.5 for patients with mechanical heart valves.
--- OUTSIDE RECORDS SUMMARY | 2017-07-21 05:00 | XMS REPORT ---
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
[2017-07-21 05:44] LABS: Bicarbonate 22 mEq/L (21-31); Glucose Level 145 mg/dL (65-120); Lipase 151 U/L (22-51); Potassium 3.8 mEq/L (3.6-5.0); Sodium Level 138 mEq/L (135-145)
[2017-07-21 05:49] LABS: Absolute Lymphocytes (CBC) 1.8 K/uL (0.7-4.9); Absolute Monocytes 0.7 K/uL (0.1-1.3); Absolute Neutrophil 6.7 K/uL (1.8-8.0); Basophils % 0.8 % (0-1.3); Lymphocytes % 19.1 % (15.3-44.8); MCH 30.1 pg (27.0-35.0); MCV 89.4 fL (80-100); MPV 8.2 fL (7.6-11.3); Monocytes % 7.5 % (3.3-12.3); RBC Red Blood Cell Count 4.92 M/uL (4.33-5.43)
[2017-07-21 05:57] LABS: ALT/SGPT 10 IU/L (10-60); AST/SGOT 20 IU/L (10-42); Albumin 4.2 g/dL (3.2-5.5); Alcohol Serum/Plasma < 10 mg/dl; Alkaline Phosphatase 58 IU/L (42-121); BUN Blood Urea Nitrogen 13 mg/dL (6-20); Bilirubin Direct 0.1 mg/dL (0-0.2); Bilirubin Total 0.5 mg/dL (0.3-1.2); Protein, Total 7.8 g/dL (6.0-8.3)
[2017-07-21 05:58] LABS: Amylase Level 221 U/L (28-100)
[2017-07-21] MEDS ORDERED: MORPHINE 4 MG/ML SYR ONE ×4 (06:35→10:07)
[2017-07-21] MEDS ORDERED: NA CHLORIDE 0.9% 1,000 ML ONE (06:36)
[2017-07-21] MEDS ORDERED: ONDANSETRON 4 MG/2 ML VIAL ONE (06:36)
[2017-07-21 07:48] LABS: Urine Bacteria <20 /HPF (NONE SEEN); Urine RBC <5 /HPF (NONE SEEN)
[2017-07-21 07:49] LABS: Urine Culture Reflex Order NOT NEEDED; Urine Mucus 1+ /HPF (NONE SEEN)
[2017-07-21 08:28] LABS: Barbiturates NEGATIVE; Benzodiazepines NEGATIVE; Cocaine NEGATIVE; METHAMPHETAM NEGATIVE; Opiates NEGATIVE
[2017-07-21 08:31] LABS: Phencyclidine ND; THC Cannibis ND
[2017-07-21 09:51] LABS: Urine Blood NEGATIVE (NEG); Urine Glucose NEGATIVE (NEG); Urine Protein TRACE (NEG); Urine Specific Gravity 1.025 (1.005-1.030); Urine pH 7.5 (5.0-7.0)
[2017-07-21] MEDS ORDERED: PROMETHAZINE 25 MG/ML VIAL ONE (10:07)
--- NOTE | 2017-07-21 10:07 | ER ---
Nurse's Notes [facility] Name: Ankit Rosales Age: 36 yrs Sex: Male : 1980 Arrival Date: 07/21/2017 Time: 05:00 Bed 5 Private MD: None, None Diagnosis: Other chronic pancreatitis Presentation: 07/21 05:08 Presenting complaint: Patient states: he thinks he is having a flare-up of his bb pancreatitis woke up approx 0200 with sharp upper abdominal pain vomited x 1. Transition of care: patient was not received from another setting of care. Onset of symptoms was July 21, 2017 at 02:00. Initial Sepsis Screen: Does the patient meet any 2 criteria? Does the patient have a suspected source of infection? No. Patient's initial sepsis screen is negative. Care prior to arrival: None. 05:08 Method Of Arrival: Ambulatory bb 05:08 Acuity: KRAIG 3 bb Historical: - Allergies: 05:10 cant take tylenol due to liver issues; bb 05:10 NKDA; bb - Home Meds: 05:10 Eliquis 2.5 mg Oral tab 1 tab 2 times per day [Active]; bb - PMHx: 05:10 Cirrhosis; GALLSTONES; left leg DVT; Pancreatitis; bb - PSHx: 05:10 None; bb - Immunization history:: Adult Immunizations. - Social history:: Smoking status: Patient uses tobacco products, Patient/guardian denies using alcohol, street drugs. Screenin:00 Abuse screen: Denies threats or abuse. Denies injuries from another. Nutritional bp screening: No deficits noted. Tuberculosis screening: No symptoms or risk factors identified. Fall Risk None identified. Assessment: 05:10 General: Appears in no apparent distress. uncomfortable, Behavior is cooperative, bp appropriate for age, anxious. Pain: Complains of pain in abdomen. Neuro: Level of Consciousness is awake, alert, obeys commands, Oriented to person, place, time, situation, Appropriate for age. Cardiovascular: No deficits noted. Rhythm is sinus rhythm. Respiratory: Airway is patent Respiratory effort is even, unlabored, Respiratory pattern is regular, symmetrical. GI: Bowel sounds present X 4 quads. Abd is soft X 4 quads. : No signs and/or symptoms were reported regarding the genitourinary system. EENT: No deficits noted. Derm: No deficits noted. Musculoskeletal: Circulation, motion, and sensation intact. Range of motion: intact in all extremities. 07:20 Reassessment: pt c/o of continued pain, provider notified, see MAR for orders. jl7 08:30 Reassessment: Pt c/o pain, provider notified, see MAR for orders. jl7 Vital Signs: 05:10 BP 140 / 57; Pulse 72; Resp 20 S; Pulse Ox 100% on R/A; Weight 59.87 kg (R); Height 5 bb ft. 6 in. (167.64 cm) (R); Pain 10/10; 05:12 Temp 97.8(A); mt 06:02 BP 142 / 89; Pulse 65; Resp 20; Pulse Ox 100% on R/A; mt 06:34 BP 152 / 84; Pulse 78; Resp 18; Pulse Ox 100% on R/A; mt 07:30 BP 136 / 70; Pulse 80; Resp 16; Pulse Ox 98% on R/A; jl7 08:15 BP 147 / 93; Pulse 75; Resp 16; Pulse Ox 99% ; jl7 09:03 BP 158 / 87; Pulse 81; Resp 16; Pulse Ox 100% on R/A; jl7 10:00 BP 150 / 85; Pulse 70; Resp 14 S; Pulse Ox 100% on R/A; jl7 05:10 Body Mass Index 21.31 (59.87 kg, 167.64 cm) bb ED Course: 05:00 Patient arrived in ED. es 05:01 None, None is Private Physician. es 05:02 Sal Pradhan, RN is Primary Nurse. bp 05:09 Triage completed. bb 05:10 Arm band placed on Patient placed in an exam room, on a stretcher, on pulse oximetry. bb 05:21 Inserted saline lock: 20 gauge in right antecubital area, using aseptic technique. mt Blood collected. 06:00 Patient has correct armband on for positive identification. Bed in low position. Call bp light in reach. Side rails up X2. 06:08 Jluis Martinez NP is PHCP. pm1 06:08 Gera Roblero MD is Attending Physician. pm1 10:30 No provider procedures requiring assistance completed. IV discontinued, intact, jl7 bleeding controlled, No redness/swelling at site. Pressure dressing applied. Administered Medications: 06:30 Drug: NS 0.9% 1000 ml Route: IV; Rate: 1000 ml; Site: right antecubital; bp 06:30 Drug: morphine 4 mg Route: IVP; Site: right antecubital; bp 07:22 Follow up: Response: No adverse reaction; Pain is unchanged, physician notified tw2 06:30 Drug: Zofran 4 mg Route: IVP; Site: right antecubital; bp 07:22 Follow up: Response: No adverse reaction tw2 07:20 Drug: morphine 4 mg Route: IVP; Site: right forearm; tw2 08:00 Follow up: Response: No adverse reaction; Pain is decreased jl7 08:36 Drug: morphine 4 mg Route: IVP; Site: right antecubital; jl7 Outcome: 10:07 Discharge ordered by . pm1 10:30 Discharged to home ambulatory. jl7 10:30 Condition: stable 10:30 Discharge instructions given to patient, Instructed on discharge instructions, follow up and referral plans. medication usage, Demonstrated understanding of instructions, follow-up care, medications, Prescriptions given X 2. 10:32 Patient left the ED. tw2 Signatures: Flaca Alonso Brenda RN RN bb Jluis Martinez NP PRICING COORDINATOR pm1 Angela Guerrero RN RN tw2 Shanell Brooks RN RN jl7 Amanda Calloway mt, Brian RN RN bp
--- NOTE | 2017-07-21 10:07 | EDPHYS ---
Physician Documentation [facility] Name: Ankit Rosales Age: 36 yrs Sex: Male : 1980 Arrival Date: 07/21/2017 Time: 05:00 Bed 5 Private MD: None, None ED Physician Gera Roblero HPI: 07/21 06:00 This 36 yrs old Male presents to ER via Ambulatory with complaints of pm1 Abdominal Pain. 06:00 The patient presents with abdominal pain in the epigastric area. Onset: The pm1 symptoms/episode began/occurred this morning, at 02:00. The symptoms radiate to Associated signs and symptoms: Pertinent positives: nausea and vomiting, Pertinent negatives: diarrhea, dysuria, fever. The symptoms are described as achy. Modifying factors: The symptoms are alleviated by nothing, the symptoms are aggravated by food, Patient denies ETOH use recently. Severity of pain: in the emergency department the pain is actually worse. The patient has experienced similar episodes in the past, chronically. The patient has been recently seen at the [facility] Emergency Department, a couple of weeks ago, for similar complaints. Historical: - Allergies: 05:10 cant take tylenol due to liver issues; bb 05:10 NKDA; bb - Home Meds: 05:10 Eliquis 2.5 mg Oral tab 1 tab 2 times per day [Active]; bb - PMHx: 05:10 Cirrhosis; GALLSTONES; left leg DVT; Pancreatitis; bb - PSHx: 05:10 None; bb - Immunization history:: Adult Immunizations. - Social history:: Smoking status: Patient uses tobacco products, Patient/guardian denies using alcohol, street drugs. ROS: 06:00 Constitutional: Negative for fever, chills, and weight loss, Eyes: Negative for injury, pm1 pain, redness, and discharge, ENT: Negative for injury, pain, and discharge, Neck: Negative for injury, pain, and swelling, Cardiovascular: Negative for chest pain, palpitations, and edema, Respiratory: Negative for shortness of breath, cough, wheezing, and pleuritic chest pain. 06:00 Back: Negative for injury and pain, : Negative for injury, bleeding, discharge, and swelling, MS/Extremity: Negative for injury and deformity, Skin: Negative for injury, rash, and discoloration, Neuro: Negative for headache, weakness, numbness, tingling, and seizure. 06:00 Abdomen/GI: Positive for abdominal pain, nausea and vomiting, Negative for diarrhea. Exam: 06:00 Constitutional: This is a well developed, well nourished patient who is awake, alert, pm1 and in no acute distress. Head/Face: Normocephalic, atraumatic. Eyes: Pupils equal round and reactive to light, extra-ocular motions intact. Lids and lashes normal. Conjunctiva and sclera are non-icteric and not injected. Cornea within normal limits. Periorbital areas with no swelling, redness, or edema. ENT: Nares patent. No nasal discharge, no septal abnormalities noted. Tympanic membranes are normal and external auditory canals are clear. Oropharynx with no redness, swelling, or masses, exudates, or evidence of obstruction, uvula midline. Mucous membranes moist. Neck: Trachea midline, no thyromegaly or masses palpated, and no cervical lymphadenopathy. Supple, full range of motion without nuchal rigidity, or vertebral point tenderness. No Meningismus. Chest/axilla: Normal chest wall appearance and motion. Nontender with no deformity. No lesions are appreciated. Cardiovascular: Regular rate and rhythm with a normal S1 and S2. No gallops, murmurs, or rubs. Normal PMI, no JVD. No pulse deficits. Respiratory: Lungs have equal breath sounds bilaterally, clear to auscultation and percussion. No rales, rhonchi or wheezes noted. No increased work of breathing, no retractions or nasal flaring. 06:00 Back: No spinal tenderness. No costovertebral tenderness. Full range of motion. Skin: Warm, dry with normal turgor. Normal color with no rashes, no lesions, and no evidence of cellulitis. MS/ Extremity: Pulses equal, no cyanosis. Neurovascular intact. Full, normal range of motion. 06:00 Abdomen/GI: Inspection: abdomen appears normal, Bowel sounds: normal, Palpation: soft, mild abdominal tenderness, in the epigastric area, mass, is not appreciated, rebound tenderness, is not appreciated. 06:00 Neuro: Orientation: is normal, Motor: is normal, moves all fours. Vital Signs: 05:10 BP 140 / 57; Pulse 72; Resp 20 S; Pulse Ox 100% on R/A; Weight 59.87 kg (R); Height 5 bb ft. 6 in. (167.64 cm) (R); Pain 10/10; 05:12 Temp 97.8(A); mt 06:02 BP 142 / 89; Pulse 65; Resp 20; Pulse Ox 100% on R/A; mt 06:34 BP 152 / 84; Pulse 78; Resp 18; Pulse Ox 100% on R/A; mt 07:30 BP 136 / 70; Pulse 80; Resp 16; Pulse Ox 98% on R/A; jl7 08:15 BP 147 / 93; Pulse 75; Resp 16; Pulse Ox 99% ; jl7 09:03 BP 158 / 87; Pulse 81; Resp 16; Pulse Ox 100% on R/A; jl7 10:00 BP 150 / 85; Pulse 70; Resp 14 S; Pulse Ox 100% on R/A; jl7 05:10 Body Mass Index 21.31 (59.87 kg, 167.64 cm) bb MDM: 06:19 Patient medically screened. pm1 10:02 Data reviewed: vital signs. Data interpreted: Pulse oximetry: on room air is 100 %. pm1 Interpretation: normal. Counseling: I had a detailed discussion with the patient and/or guardian regarding: the historical points, exam findings, and any diagnostic results supporting the discharge/admit diagnosis, lab results, the need for outpatient follow up, for definitive care, a pharmacy services director, cessation of alcohol and dietary recommendations as directed from Jovan during last admission. 07/21 05:17 Order name: Amylase, Serum; Complete Time: 06:09 07/21 05:17 Order name: Basic Metabolic Panel; Complete Time: 06:09 07/21 05:17 Order name: CBC with Diff; Complete Time: 06:09 07/21 05:17 Order name: Hepatic Function; Complete Time: 06:09 07/21 05:17 Order name: Lipase; Complete Time: 06:09 07/21 05:17 Order name: Urine Microscopic Only; Complete Time: 08:12 07/21 05:17 Order name: IV Saline Lock; Complete Time: 05:22 07/21 05:17 Order name: Labs collected and sent; Complete Time: 05:22 07/21 05:17 Order name: Urine Dipstick-Ancillary (obtain specimen); Complete Time: 06:47 tw4 07/21 05:17 Order name: IV Saline Lock; Complete Time: 05:26 bp 07/21 05:17 Order name: Labs collected and sent; Complete Time: 05:26 bp 07/21 05:17 Order name: Urine Drug Screen; Complete Time: 08:33 bp 07/21 05:17 Order name: ETOH Level; Complete Time: 06:09 bp 07/21 06:54 Order name: Urine Dipstick--Ancillary (enter results); Complete Time: 10:00 em1 Administered Medications: 06:30 Drug: NS 0.9% 1000 ml Route: IV; Rate: 1000 ml; Site: right antecubital; bp 06:30 Drug: morphine 4 mg Route: IVP; Site: right antecubital; bp 07:22 Follow up: Response: No adverse reaction; Pain is unchanged, physician notified tw2 06:30 Drug: Zofran 4 mg Route: IVP; Site: right antecubital; bp 07:22 Follow up: Response: No adverse reaction tw2 07:20 Drug: morphine 4 mg Route: IVP; Site: right forearm; tw2 08:00 Follow up: Response: No adverse reaction; Pain is decreased jl7 08:36 Drug: morphine 4 mg Route: IVP; Site: right antecubital; jl7 Disposition: 07/21/17 10:07 Discharged to Home. Impression: Other chronic pancreatitis. - Condition is Stable. - Prescriptions for Tylenol- Codeine #3 300-30 mg Oral Tablet - take 2 tablets by ORAL route every 6 hours As needed; 20 tablet. promethazine 25 mg Oral Tablet - take 1 tablet by ORAL route every 6 hours As needed; 20 tablet. - Work release form, Medication Reconciliation Form, Thank You Letter, Prescription Opioid Use form. - Follow up: Emergency Department; When: As needed; Reason: Worsening of condition. Follow up: Private Physician; When: 2 - 3 days; Reason: Recheck today's complaints, Continuance of care, Re-evaluation by your physician. - Problem is new. - Symptoms have improved. Signatures: Dispatcher [employer] EDPadma Velazco RN RN Jluis Mcqueen, MK SUPERVISOR [employer] pm1 Angela Guerrero RN RN tw2 Shanell Brooks, RN RN jl7 Sal Pradhan, RN RN bp Gera Roblero MD MD tw4 Corrections: (The following items were deleted from the chart) 05:19 05:18 AMYLASE, SERUM+C.LAB.BRZ ordered. EDMS EDMS 05:19 05:18 BASIC METABOLIC PANEL+C.LAB.BRZ ordered. EDMS EDMS 05:19 05:18 CBC+H.LAB.BRZ ordered. EDMS EDMS 05:19 05:18 Creatinine for Radiology+C.LAB.BRZ ordered. EDMS EDMS 05:19 05:18 HEPATIC FUNCTION+C.LAB.BRZ ordered. EDMS EDMS 05:19 05:18 LIPASE+C.LAB.BRZ ordered. EDMS EDMS 05:19 05:18 UA MICROSCOPIC+U.LAB.BRZ ordered. EDMS EDMS 05:28 05:18 Creatinine for Radiology+C.LAB.BRZ ordered. EDMS EDMS 06:01 05:17 Urine Dipstick-Ancillary ordered. bp bp
[2017-07-21 10:38] VITALS: TEMP 97.8
[2017-07-21 10:44] VITALS: BP 158/87; O2SAT 100
== END 2017-07-21 10:32 | disposition home or self-care (01) ==
LOC: ER 04:57
DX: K86.1 Other chronic pancreatitis (principal)
CPT/HCPCS: 36415; 80048; 80076; 80307; 80320; 81003; 81015; 82150; 83690; 85025; 99284; J2405; J2550; J7030

== ENCOUNTER 2017-08-31 10:26 | Emergency (ER) | payer SELFPAY ==
--- OUTSIDE RECORDS SUMMARY | 2017-08-31 10:29 | XMS REPORT ---
:1980 [facility] Address [address] [place] [address] Care Team Providers Name Role Phone LILIA HILL Unavailable Unavailable MELISSAPATT CRAL Unavailable Unavailable Problems This patient has no known problems. Allergies, Adverse Reactions, Alerts This patient has no known allergies or adverse reactions. Medications This patient has no known medications. Results Test Description Test Time Test Comments Text Results Atomic Results Result Comments COMPREHENSIVE METABOLIC PANEL 2017-05-19 14:02:00 Test Item Value Reference Range Comments TOTAL PROTEIN (BEAKER) (test 7.8 gm/dL 6.0-8.3 lmkc=648) ALBUMIN (BEAKER) (test 3.9 g/dL 3.5-5.0 mvkr=8776) ALKALINE PHOSPHATASE 62 U/L 40-150 (BEAKER) (test dzrl=048) BILIRUBIN TOTAL (BEAKER) 0.3 mg/dL 0.2-1.2 (test cern=344) SODIUM (BEAKER) (test 139 meq/L 136-145 xrvd=795) POTASSIUM (BEAKER) (test 4.2 meq/L 3.5-5.1 zyxi=610) CHLORIDE (BEAKER) (test 104 meq/L 98-107 hgzn=238) CO2 (BEAKER) (test wwdw=497) 26 meq/L 22-29 BLOOD UREA NITROGEN (BEAKER) 9 mg/dL 7-21 (test qmys=272) CREATININE (BEAKER) (test 0.64 mg/dL 0.57-1.25 tpjc=795) GLUCOSE RANDOM (BEAKER) 78 mg/dL 70-105 (test hoiw=844) CALCIUM (BEAKER) (test 9.5 mg/dL 8.4-10.2 lped=130) AST (SGOT) (BEAKER) (test 18 U/L 5-34 vubz=497) ALT (SGPT) (BEAKER) (test 8 U/L 6-55 ubbo=569) EGFR (BEAKER) (test 141 mL/min/1.73 sq m ESTIMATED GFR IS NOT koaq=2479) ACCURATE CREATININE CLEARANCE IN PREDICTING GLOMERULAR FILTRATION RATE. ESTIMATED GFR IS NOT APPLICABLE FOR DIALYSIS PATIENTS. COMPREHENSIVE METABOLIC [id number] 06:08:00 Test Item Value Reference Range Comments TOTAL PROTEIN (BEAKER) 7.0 gm/dL 6.0-8.3 Specimen slightly (test gvrw=710) hemolyzed ALBUMIN (BEAKER) (test 3.4 g/dL 3.5-5.0 Specimen slightly blhp=1010) hemolyzed ALKALINE PHOSPHATASE 58 U/L 40-150 (BEAKER) (test nhhl=432) BILIRUBIN TOTAL (BEAKER) 0.4 mg/dL 0.2-1.2 Specimen slightly (test nebo=924) hemolyzed SODIUM (BEAKER) (test 139 meq/L 136-145 kwwj=824) POTASSIUM (BEAKER) (test 4.5 meq/L 3.5-5.1 Specimen slightly tndd=413) hemolyzed CHLORIDE (BEAKER) (test 103 meq/L 98-107 orzw=655) CO2 (BEAKER) (test 27 meq/L 22-29 aqwr=993) BLOOD UREA NITROGEN 2 mg/dL 7-21 (BEAKER) (test yiez=987) CREATININE (BEAKER) (test 0.55 mg/dL 0.57-1.25 Specimen slightly lehu=419) hemolyzed GLUCOSE RANDOM (BEAKER) 85 mg/dL 70-105 (test xuod=421) CALCIUM (BEAKER) (test 9.3 mg/dL 8.4-10.2 djme=695) AST (SGOT) (BEAKER) (test 18 U/L 5-34 Specimen slightly jtvu=126) hemolyzed ALT (SGPT) (BEAKER) (test 8 U/L 6-55 Specimen slightly ctdm=803) hemolyzed EGFR (BEAKER) (test 168 mL/min/1.73 sq ESTIMATED GFR IS NOT nalc=4264) m ACCURATE CREATININE CLEARANCE IN PREDICTING GLOMERULAR FILTRATION RATE. ESTIMATED GFR IS NOT APPLICABLE FOR DIALYSIS PATIENTS. CBC (HEMOGRAM ONLY)2017-05-17 05:20:00 Test Item Value Reference Range Comments WHITE BLOOD CELL COUNT (BEAKER) (test ccjm=744) 6.4 K/ L 3.5-10.5 RED BLOOD CELL COUNT (BEAKER) (test rino=301) 3.84 M/ L 4.63-6.08 HEMOGLOBIN (BEAKER) (test mfjl=262) 11.5 GM/DL 13.7-17.5 HEMATOCRIT (BEAKER) (test jjkl=779) 35.2 % 40.1-51.0 MEAN CORPUSCULAR VOLUME (BEAKER) (test ksac=762) 91.7 fL 79.0-92.2 MEAN CORPUSCULAR HEMOGLOBIN (BEAKER) (test 29.9 pg 25.7-32.2 rozi=398) MEAN CORPUSCULAR HEMOGLOBIN CONC (BEAKER) (test 32.7 GM/DL 32.3-36.5 pkwg=870) RED CELL DISTRIBUTION WIDTH (BEAKER) (test 14.1 % 11.6-14.4 xocz=611) PLATELET COUNT (BEAKER) (test qkth=110) 434 K/CU MM 150-450 MEAN PLATELET VOLUME (BEAKER) (test ajdk=755) 9.4 fL 9.4-12.4 NUCLEATED RED BLOOD CELLS (BEAKER) (test 0 /100 WBC 0-0 wbiv=288) HEPATIC FUNCTION [id number] 11:22:00 Test Item Value Reference Range Comments TOTAL PROTEIN (BEAKER) (test kkyl=179) 6.9 gm/dL 6.0-8.3 ALBUMIN (BEAKER) (test repr=9577) 3.4 g/dL 3.5-5.0 BILIRUBIN TOTAL (BEAKER) (test robz=004) 0.4 mg/dL 0.2-1.2 BILIRUBIN DIRECT (BEAKER) (test hfjp=941) 0.2 mg/dL 0.1-0.5 ALKALINE PHOSPHATASE (BEAKER) (test ipzm=254) 65 U/L 40-150 AST (SGOT) (BEAKER) (test uttu=627) 14 U/L 5-34 ALT (SGPT) (BEAKER) (test eiam=821) 8 U/L 6-55 CBC W/PLT COUNT & AUTO [id number] 11:16:00 Test Item Value Reference Range Comments WHITE BLOOD CELL COUNT (BEAKER) (test fjvt=069) 7.0 K/ L 3.5-10.5 RED BLOOD CELL COUNT (BEAKER) (test cluc=934) 3.90 M/ L 4.63-6.08 HEMOGLOBIN (BEAKER) (test cowz=588) 11.9 GM/DL 13.7-17.5 HEMATOCRIT (BEAKER) (test catw=338) 35.7 % 40.1-51.0 MEAN CORPUSCULAR VOLUME (BEAKER) (test kugn=247) 91.5 fL 79.0-92.2 MEAN CORPUSCULAR HEMOGLOBIN (BEAKER) (test 30.5 pg 25.7-32.2 hswq=810) MEAN CORPUSCULAR HEMOGLOBIN CONC (BEAKER) (test 33.3 GM/DL 32.3-36.5 hihm=733) RED CELL DISTRIBUTION WIDTH (BEAKER) (test 14.0 % 11.6-14.4 pjkc=317) PLATELET COUNT (BEAKER) (test znls=807) 452 K/CU MM 150-450 MEAN PLATELET VOLUME (BEAKER) (test kgqm=849) 9.0 fL 9.4-12.4 NUCLEATED RED BLOOD CELLS (BEAKER) (test 0 /100 WBC 0-0 xwlw=709) NEUTROPHILS RELATIVE PERCENT (BEAKER) (test 59 % mcqz=500) LYMPHOCYTES RELATIVE PERCENT (BEAKER) (test 21 % xtrv=769) MONOCYTES RELATIVE PERCENT (BEAKER) (test 8 % jjsr=049) EOSINOPHILS RELATIVE PERCENT (BEAKER) (test 10 % hroj=530) BASOPHILS RELATIVE PERCENT (BEAKER) (test 1 % wuwu=852) NEUTROPHILS ABSOLUTE COUNT (BEAKER) (test 4.12 K/ L 1.78-5.38 svrv=878) LYMPHOCYTES ABSOLUTE COUNT (BEAKER) (test 1.45 K/ L 1.32-3.57 wbpw=032) MONOCYTES ABSOLUTE COUNT (BEAKER) (test 0.58 K/ L 0.30-0.82 gtrl=370) EOSINOPHILS ABSOLUTE COUNT (BEAKER) (test 0.70 K/ L 0.04-0.54 wcsd=675) BASOPHILS ABSOLUTE COUNT (BEAKER) (test 0.10 K/ L 0.01-0.08 dokk=817) IMMATURE GRANULOCYTES-RELATIVE PERCENT (BEAKER) 0 % 0-1 (test abka=0205) BASIC METABOLIC [id number] 06:43:00 Test Item Value Reference Range Comments SODIUM (BEAKER) (test 138 meq/L 136-145 owak=793) POTASSIUM (BEAKER) (test 3.5 meq/L 3.5-5.1 smrh=116) CHLORIDE (BEAKER) (test 100 meq/L 98-107 sijo=583) CO2 (BEAKER) (test 27 meq/L 22-29 ytwb=951) BLOOD UREA NITROGEN 2 mg/dL 7-21 (BEAKER) (test fyjq=383) CREATININE (BEAKER) (test 0.53 mg/dL 0.57-1.25 nkqu=864) GLUCOSE RANDOM (BEAKER) 82 mg/dL 70-105 (test shir=100) CALCIUM (BEAKER) (test 9.0 mg/dL 8.4-10.2 bing=817) EGFR (BEAKER) (test 175 mL/min/1.73 sq m ESTIMATED GFR IS NOT sxsg=9797) ACCURATE CREATININE CLEARANCE IN PREDICTING GLOMERULAR FILTRATION RATE. ESTIMATED GFR IS NOT APPLICABLE FOR DIALYSIS PATIENTS. BASIC METABOLIC [id number] 05:14:00 Test Item Value Reference Range Comments SODIUM (BEAKER) (test 132 meq/L 136-145 motl=702) POTASSIUM (BEAKER) (test 3.8 meq/L 3.5-5.1 hytz=919) CHLORIDE (BEAKER) (test 101 meq/L 98-107 tozr=129) CO2 (BEAKER) (test 18 meq/L 22-29 dbsg=739) BLOOD UREA NITROGEN 4 mg/dL 7-21 (BEAKER) (test pwic=695) CREATININE (BEAKER) (test 0.52 mg/dL 0.57-1.25 pseb=368) GLUCOSE RANDOM (BEAKER) 58 mg/dL 70-105 (test cnux=611) CALCIUM (BEAKER) (test 8.7 mg/dL 8.4-10.2 qiaz=917) EGFR (BEAKER) (test 179 mL/min/1.73 sq m ESTIMATED GFR IS NOT txrx=3925) ACCURATE CREATININE CLEARANCE IN PREDICTING GLOMERULAR FILTRATION RATE. ESTIMATED GFR IS NOT APPLICABLE FOR DIALYSIS PATIENTS. CBC (HEMOGRAM ONLY)2017-05-15 04:57:00 Test Item Value Reference Range Comments WHITE BLOOD CELL COUNT (BEAKER) (test vpdk=638) 13.4 K/ L 3.5-10.5 RED BLOOD CELL COUNT (BEAKER) (test rizk=209) 3.81 M/ L 4.63-6.08 HEMOGLOBIN (BEAKER) (test amjw=458) 11.4 GM/DL 13.7-17.5 HEMATOCRIT (BEAKER) (test sbvg=646) 35.1 % 40.1-51.0 MEAN CORPUSCULAR VOLUME (BEAKER) (test nult=472) 92.1 fL 79.0-92.2 MEAN CORPUSCULAR HEMOGLOBIN (BEAKER) (test 29.9 pg 25.7-32.2 peyx=202) MEAN CORPUSCULAR HEMOGLOBIN CONC (BEAKER) (test 32.5 GM/DL 32.3-36.5 iwco=477) RED CELL DISTRIBUTION WIDTH (BEAKER) (test 14.3 % 11.6-14.4 rtqj=867) PLATELET COUNT (BEAKER) (test cvks=233) 502 K/CU MM 150-450 MEAN PLATELET VOLUME (BEAKER) (test kazv=616) 9.6 fL 9.4-12.4 NUCLEATED RED BLOOD CELLS (BEAKER) (test 0 /100 WBC 0-0 cjqn=043) LIPID [id number] 05:00:00 Test Item Value Reference Range Comments TRIGLYCERIDES (BEAKER) (test qnuc=872) 71 mg/dL CHOLESTEROL (BEAKER) (test rrqz=934) 108 mg/dL HDL CHOLESTEROL (BEAKER) (test dopw=813) 22 mg/dL LDL CHOLESTEROL CALCULATED (BEAKER) (test 72 mg/dL ovou=728) Triglyceride Reference Range: Low Risk <150 Borderline 150- 199 High Risk 200-499 Very High Risk >=500Cholesterol Reference Range: Low Risk <200 Borderline 200-239 High Risk > 240HDL Cholesterol Reference Range: Low Risk >=60 High Risk <40LDL Cholesterol Reference Range: Optimal <100 Near Optimal 100-129 Borderline 130-159 High 160-189 Very High >=190BASIC METABOLIC [id number] 05:00:00 Test Item Value Reference Range Comments SODIUM (BEAKER) (test 133 meq/L 136-145 ikpm=786) POTASSIUM (BEAKER) (test 4.1 meq/L 3.5-5.1 xgqz=196) CHLORIDE (BEAKER) (test 105 meq/L 98-107 crrr=999) CO2 (BEAKER) (test 17 meq/L 22-29 juwj=999) BLOOD UREA NITROGEN 8 mg/dL 7-21 (BEAKER) (test qhnd=214) CREATININE (BEAKER) (test 0.51 mg/dL 0.57-1.25 zdsi=748) GLUCOSE RANDOM (BEAKER) 54 mg/dL 70-105 (test eyxn=030) CALCIUM (BEAKER) (test 8.4 mg/dL 8.4-10.2 hsfc=106) EGFR (BEAKER) (test 183 mL/min/1.73 sq m ESTIMATED GFR IS NOT sktn=5351) ACCURATE CREATININE CLEARANCE IN PREDICTING GLOMERULAR FILTRATION RATE. ESTIMATED GFR IS NOT APPLICABLE FOR DIALYSIS PATIENTS. HEPATIC FUNCTION [id number] 05:00:00 Test Item Value Reference Range Comments TOTAL PROTEIN (BEAKER) (test urns=570) 6.3 gm/dL 6.0-8.3 ALBUMIN (BEAKER) (test axii=8069) 3.2 g/dL 3.5-5.0 BILIRUBIN TOTAL (BEAKER) (test lrjj=597) 0.7 mg/dL 0.2-1.2 BILIRUBIN DIRECT (BEAKER) (test ebhp=005) 0.3 mg/dL 0.1-0.5 ALKALINE PHOSPHATASE (BEAKER) (test rqfq=839) 62 U/L 40-150 AST (SGOT) (BEAKER) (test gelz=489) 13 U/L 5-34 ALT (SGPT) (BEAKER) (test lynv=607) 9 U/L 6-55 [id number] 05:00:00 Test Item Value Reference Range Comments LIPASE (BEAKER) (test lymu=223) 1007 U/L 8-78 CBC (HEMOGRAM ONLY)2017-05-14 04:39:00 Test Item Value Reference Range Comments WHITE BLOOD CELL COUNT (BEAKER) (test jold=368) 16.6 K/ L 3.5-10.5 RED BLOOD CELL COUNT (BEAKER) (test zkad=043) 3.98 M/ L 4.63-6.08 HEMOGLOBIN (BEAKER) (test mlzm=450) 12.0 GM/DL 13.7-17.5 HEMATOCRIT (BEAKER) (test ijew=312) 37.2 % 40.1-51.0 MEAN CORPUSCULAR VOLUME (BEAKER) (test icmq=443) 93.5 fL 79.0-92.2 MEAN CORPUSCULAR HEMOGLOBIN (BEAKER) (test 30.2 pg 25.7-32.2 sibo=711) MEAN CORPUSCULAR HEMOGLOBIN CONC (BEAKER) (test 32.3 GM/DL 32.3-36.5 ciwk=745) RED CELL DISTRIBUTION WIDTH (BEAKER) (test 14.5 % 11.6-14.4 agbb=568) PLATELET COUNT (BEAKER) (test kakj=057) 527 K/CU MM 150-450 MEAN PLATELET VOLUME (BEAKER) (test mnyl=867) 9.5 fL 9.4-12.4 NUCLEATED RED BLOOD CELLS (BEAKER) (test 0 /100 WBC 0-0 awpf=991) MR, ABDOMEN, [id number] 12:25:00FINAL REPORT MRI of the abdomen, MRCP. [...] MDReport Verified Date/Time: 03/13/2017 12:25:41 Reading Location: [address] Ortho Consult Reading Room Electronically signed by: KIKO VEE M.D. on 12:25 [facility] [id number] 05:05:00 Test Item Value Reference Range Comments SODIUM (BEAKER) (test 139 meq/L 136-145 fzzs=802) POTASSIUM (BEAKER) (test 3.7 meq/L 3.5-5.1 skuh=242) CHLORIDE (BEAKER) (test 108 meq/L 98-107 ydxm=218) CO2 (BEAKER) (test 22 meq/L 22-29 lzzh=614) BLOOD UREA NITROGEN 4 mg/dL 7-21 (BEAKER) (test kwvj=781) CREATININE (BEAKER) (test 0.58 mg/dL 0.57-1.25 ojcv=919) GLUCOSE RANDOM (BEAKER) 95 mg/dL 70-105 (test xgfb=675) CALCIUM (BEAKER) (test 8.5 mg/dL 8.4-10.2 htpy=555) EGFR (BEAKER) (test 158 mL/min/1.73 sq m ESTIMATED GFR IS NOT mkyt=7404) ACCURATE CREATININE CLEARANCE IN PREDICTING GLOMERULAR FILTRATION RATE. ESTIMATED GFR IS NOT APPLICABLE FOR DIALYSIS PATIENTS. CBC W/PLT COUNT & AUTO [id number] 04:49:00 Test Item Value Reference Range Comments WHITE BLOOD CELL COUNT (BEAKER) (test ssvk=823) 6.3 K/ L 3.5-10.5 RED BLOOD CELL COUNT (BEAKER) (test pkfy=872) 4.32 M/ L 4.63-6.08 HEMOGLOBIN (BEAKER) (test eftm=180) 13.7 GM/DL 13.7-17.5 HEMATOCRIT (BEAKER) (test xkov=004) 40.3 % 40.1-51.0 MEAN CORPUSCULAR VOLUME (BEAKER) (test xjmw=810) 93.3 fL 79.0-92.2 MEAN CORPUSCULAR HEMOGLOBIN (BEAKER) (test 31.7 pg 25.7-32.2 danw=111) MEAN CORPUSCULAR HEMOGLOBIN CONC (BEAKER) (test 34.0 GM/DL 32.3-36.5 kyom=688) RED CELL DISTRIBUTION WIDTH (BEAKER) (test 11.9 % 11.6-14.4 arch=781) PLATELET COUNT (BEAKER) (test emkr=299) 286 K/CU MM 150-450 MEAN PLATELET VOLUME (BEAKER) (test zttx=524) 9.4 fL 9.4-12.4 NUCLEATED RED BLOOD CELLS (BEAKER) (test 0 /100 WBC 0-0 oebl=147) NEUTROPHILS RELATIVE PERCENT (BEAKER) (test 51 % svso=402) LYMPHOCYTES RELATIVE PERCENT (BEAKER) (test 31 % urgt=963) MONOCYTES RELATIVE PERCENT (BEAKER) (test 11 % blhf=354) EOSINOPHILS RELATIVE PERCENT (BEAKER) (test 6 % xqlb=226) BASOPHILS RELATIVE PERCENT (BEAKER) (test 1 % owvo=912) NEUTROPHILS ABSOLUTE COUNT (BEAKER) (test 3.21 K/ L 1.78-5.38 untm=683) LYMPHOCYTES ABSOLUTE COUNT (BEAKER) (test 1.91 K/ L 1.32-3.57 zzyh=190) MONOCYTES ABSOLUTE COUNT (BEAKER) (test 0.68 K/ L 0.30-0.82 dcqk=539) EOSINOPHILS ABSOLUTE COUNT (BEAKER) (test 0.40 K/ L 0.04-0.54 ezpe=928) BASOPHILS ABSOLUTE COUNT (BEAKER) (test 0.04 K/ L 0.01-0.08 fezz=961) IMMATURE GRANULOCYTES-RELATIVE PERCENT (BEAKER) 1 % 0-1 (test dflv=0931) CBC W/PLT COUNT & AUTO [id number] 04:52:00 Test Item Value Reference Range Comments WHITE BLOOD CELL COUNT (BEAKER) (test gvfs=921) 6.2 K/ L 3.5-10.5 RED BLOOD CELL COUNT (BEAKER) (test geka=539) 4.31 M/ L 4.63-6.08 HEMOGLOBIN (BEAKER) (test jzqd=795) 13.7 GM/DL 13.7-17.5 HEMATOCRIT (BEAKER) (test vkch=646) 41.1 % 40.1-51.0 MEAN CORPUSCULAR VOLUME (BEAKER) (test ikam=889) 95.4 fL 79.0-92.2 MEAN CORPUSCULAR HEMOGLOBIN (BEAKER) (test 31.8 pg 25.7-32.2 kbli=251) MEAN CORPUSCULAR HEMOGLOBIN CONC (BEAKER) (test 33.3 GM/DL 32.3-36.5 fovf=275) RED CELL DISTRIBUTION WIDTH (BEAKER) (test 12.1 % 11.6-14.4 dbjk=023) PLATELET COUNT (BEAKER) (test kegw=934) 295 K/CU MM 150-450 MEAN PLATELET VOLUME (BEAKER) (test loam=834) 9.5 fL 9.4-12.4 NUCLEATED RED BLOOD CELLS (BEAKER) (test 0 /100 WBC 0-0 ekej=729) NEUTROPHILS RELATIVE PERCENT (BEAKER) (test 51 % qabo=293) LYMPHOCYTES RELATIVE PERCENT (BEAKER) (test 31 % ugsw=578) MONOCYTES RELATIVE PERCENT (BEAKER) (test 11 % xpwg=264) EOSINOPHILS RELATIVE PERCENT (BEAKER) (test 7 % aebf=523) BASOPHILS RELATIVE PERCENT (BEAKER) (test 1 % akov=713) NEUTROPHILS ABSOLUTE COUNT (BEAKER) (test 3.17 K/ L 1.78-5.38 mlmd=169) LYMPHOCYTES ABSOLUTE COUNT (BEAKER) (test 1.89 K/ L 1.32-3.57 bcoa=905) MONOCYTES ABSOLUTE COUNT (BEAKER) (test 0.65 K/ L 0.30-0.82 pxvy=162) EOSINOPHILS ABSOLUTE COUNT (BEAKER) (test 0.41 K/ L 0.04-0.54 cfke=676) BASOPHILS ABSOLUTE COUNT (BEAKER) (test 0.05 K/ L 0.01-0.08 bcfr=742) IMMATURE GRANULOCYTES-RELATIVE PERCENT (BEAKER) 1 % 0-1 (test jtxb=2919) COMPREHENSIVE METABOLIC [id number] 11:20:00 Test Item Value Reference Range Comments TOTAL PROTEIN (BEAKER) 7.2 gm/dL 6.0-8.3 (test ocmu=502) ALBUMIN (BEAKER) (test 3.7 g/dL 3.5-5.0 ttgy=5130) ALKALINE PHOSPHATASE 73 U/L 40-150 (BEAKER) (test ajic=482) BILIRUBIN TOTAL (BEAKER) 0.6 mg/dL 0.2-1.2 (test nfyr=430) SODIUM (BEAKER) (test 135 meq/L 136-145 igpx=709) POTASSIUM (BEAKER) (test 5.0 meq/L 3.5-5.1 mbgv=476) CHLORIDE (BEAKER) (test 109 meq/L 98-107 tvtz=700) CO2 (BEAKER) (test 14 meq/L 22-29 clqm=245) BLOOD UREA NITROGEN 6 mg/dL 7-21 (BEAKER) (test zplx=908) CREATININE (BEAKER) (test 0.62 mg/dL 0.57-1.25 aaov=423) GLUCOSE RANDOM (BEAKER) 45 mg/dL 70-105 (test mqqb=928) CALCIUM (BEAKER) (test 8.6 mg/dL 8.4-10.2 liwh=138) AST (SGOT) (BEAKER) (test 17 U/L 5-34 euuu=119) ALT (SGPT) (BEAKER) (test 14 U/L 6-55 mfaa=566) EGFR (BEAKER) (test 146 mL/min/1.73 sq ESTIMATED GFR IS NOT hokp=6407) m ACCURATE CREATININE CLEARANCE IN PREDICTING GLOMERULAR FILTRATION RATE. ESTIMATED GFR IS NOT APPLICABLE FOR DIALYSIS PATIENTS. CBC W/PLT COUNT & AUTO [id number] 09:54:00 Test Item Value Reference Range Comments WHITE BLOOD CELL COUNT (BEAKER) (test rdbc=844) 7.4 K/ L 3.5-10.5 RED BLOOD CELL COUNT (BEAKER) (test aadg=716) 4.32 M/ L 4.63-6.08 HEMOGLOBIN (BEAKER) (test ibjz=200) 13.6 GM/DL 13.7-17.5 HEMATOCRIT (BEAKER) (test deyi=961) 41.8 % 40.1-51.0 MEAN CORPUSCULAR VOLUME (BEAKER) (test zjuq=962) 96.8 fL 79.0-92.2 MEAN CORPUSCULAR HEMOGLOBIN (BEAKER) (test 31.5 pg 25.7-32.2 icss=295) MEAN CORPUSCULAR HEMOGLOBIN CONC (BEAKER) (test 32.5 GM/DL 32.3-36.5 glph=711) RED CELL DISTRIBUTION WIDTH (BEAKER) (test 12.1 % 11.6-14.4 rrif=162) PLATELET COUNT (BEAKER) (test smap=693) 277 K/CU MM 150-450 MEAN PLATELET VOLUME (BEAKER) (test gigx=929) 9.7 fL 9.4-12.4 NUCLEATED RED BLOOD CELLS (BEAKER) (test 0 /100 WBC 0-0 rwol=226) NEUTROPHILS RELATIVE PERCENT (BEAKER) (test 57 % rfpk=363) LYMPHOCYTES RELATIVE PERCENT (BEAKER) (test 29 % aadz=965) MONOCYTES RELATIVE PERCENT (BEAKER) (test 8 % ixls=606) EOSINOPHILS RELATIVE PERCENT (BEAKER) (test 5 % qubi=938) BASOPHILS RELATIVE PERCENT (BEAKER) (test 1 % khwc=035) NEUTROPHILS ABSOLUTE COUNT (BEAKER) (test 4.23 K/ L 1.78-5.38 bbxf=457) LYMPHOCYTES ABSOLUTE COUNT (BEAKER) (test 2.10 K/ L 1.32-3.57 xogm=124) MONOCYTES ABSOLUTE COUNT (BEAKER) (test 0.57 K/ L 0.30-0.82 sgzs=580) EOSINOPHILS ABSOLUTE COUNT (BEAKER) (test 0.38 K/ L 0.04-0.54 kliy=315) BASOPHILS ABSOLUTE COUNT (BEAKER) (test 0.05 K/ L 0.01-0.08 tzre=656) IMMATURE GRANULOCYTES-RELATIVE PERCENT (BEAKER) 1 % 0-1 (test sory=9855) (MANUAL DIFFERENTIAL)2017-03-11 09:54:00 Test Item Value Reference Range Comments TOTAL COUNTED (BEAKER) (test jhpx=6466) WBC MORPHOLOGY (BEAKER) (test lhkn=534) Normal PLT MORPHOLOGY (BEAKER) (test swbz=808) Normal RBC MORPHOLOGY (BEAKER) (test sahc=317) Normal CBC W/PLT COUNT & AUTO [id number] 09:09:00 Test Item Value Reference Range Comments WHITE BLOOD CELL COUNT (BEAKER) (test ivdk=750) 8.9 K/ L 3.5-10.5 RED BLOOD CELL COUNT (BEAKER) (test ngwk=632) 4.25 M/ L 4.63-6.08 HEMOGLOBIN (BEAKER) (test foey=843) 13.6 GM/DL 13.7-17.5 HEMATOCRIT (BEAKER) (test exkh=742) 40.7 % 40.1-51.0 MEAN CORPUSCULAR VOLUME (BEAKER) (test pqzh=558) 95.8 fL 79.0-92.2 MEAN CORPUSCULAR HEMOGLOBIN (BEAKER) (test 32.0 pg 25.7-32.2 sqil=678) MEAN CORPUSCULAR HEMOGLOBIN CONC (BEAKER) (test 33.4 GM/DL 32.3-36.5 tcvk=972) RED CELL DISTRIBUTION WIDTH (BEAKER) (test 12.1 % 11.6-14.4 nxsl=588) PLATELET COUNT (BEAKER) (test lpry=003) 274 K/CU MM 150-450 MEAN PLATELET VOLUME (BEAKER) (test orsj=449) 9.8 fL 9.4-12.4 NUCLEATED RED BLOOD CELLS (BEAKER) (test 0 /100 WBC 0-0 qeup=336) NEUTROPHILS RELATIVE PERCENT (BEAKER) (test 62 % dwui=847) LYMPHOCYTES RELATIVE PERCENT (BEAKER) (test 24 % vqav=467) MONOCYTES RELATIVE PERCENT (BEAKER) (test 7 % eeqs=457) EOSINOPHILS RELATIVE PERCENT (BEAKER) (test 5 % hmed=970) BASOPHILS RELATIVE PERCENT (BEAKER) (test 1 % nmgw=496) NEUTROPHILS ABSOLUTE COUNT (BEAKER) (test 5.55 K/ L 1.78-5.38 pdsw=620) LYMPHOCYTES ABSOLUTE COUNT (BEAKER) (test 2.14 K/ L 1.32-3.57 lnqd=261) MONOCYTES ABSOLUTE COUNT (BEAKER) (test 0.64 K/ L 0.30-0.82 ctrn=276) EOSINOPHILS ABSOLUTE COUNT (BEAKER) (test 0.48 K/ L 0.04-0.54 qghw=204) BASOPHILS ABSOLUTE COUNT (BEAKER) (test 0.07 K/ L 0.01-0.08 umkj=058) IMMATURE GRANULOCYTES-RELATIVE PERCENT (BEAKER) 0 % 0-1 (test rifu=7286) (MANUAL DIFFERENTIAL)2017-03-10 09:09:00 Test Item Value Reference Range Comments TOTAL COUNTED (BEAKER) (test tuvo=0493) WBC MORPHOLOGY (BEAKER) (test mtbr=461) Normal PLT MORPHOLOGY (BEAKER) (test wlmg=331) Normal RBC MORPHOLOGY (BEAKER) (test zdcr=605) Normal COMPREHENSIVE METABOLIC [id number] 07:30:00 Test Item Value Reference Range Comments TOTAL PROTEIN (BEAKER) 6.8 gm/dL 6.0-8.3 (test xbiw=259) ALBUMIN (BEAKER) (test 3.6 g/dL 3.5-5.0 kcrc=2881) ALKALINE PHOSPHATASE 77 U/L 40-150 (BEAKER) (test bnzr=171) BILIRUBIN TOTAL (BEAKER) 0.6 mg/dL 0.2-1.2 (test luon=998) SODIUM (BEAKER) (test 136 meq/L 136-145 jemf=423) POTASSIUM (BEAKER) (test 4.3 meq/L 3.5-5.1 szue=092) CHLORIDE (BEAKER) (test 105 meq/L 98-107 qhcg=584) CO2 (BEAKER) (test 19 meq/L 22-29 ctnr=179) BLOOD UREA NITROGEN 6 mg/dL 7-21 (BEAKER) (test kisy=410) CREATININE (BEAKER) (test 0.57 mg/dL 0.57-1.25 rjws=571) GLUCOSE RANDOM (BEAKER) 52 mg/dL 70-105 (test pjxs=582) CALCIUM (BEAKER) (test 8.2 mg/dL 8.4-10.2 fywy=986) AST (SGOT) (BEAKER) (test 17 U/L 5-34 becy=204) ALT (SGPT) (BEAKER) (test 14 U/L 6-55 ibah=596) EGFR (BEAKER) (test 161 mL/min/1.73 sq ESTIMATED GFR IS NOT iqkz=2121) m ACCURATE CREATININE CLEARANCE IN PREDICTING GLOMERULAR FILTRATION RATE. ESTIMATED GFR IS NOT APPLICABLE FOR DIALYSIS PATIENTS. CBC W/PLT COUNT & AUTO [id number] 10:49:00 Test Item Value Reference Range Comments WHITE BLOOD CELL COUNT (BEAKER) (test dlnx=385) 6.9 K/ L 3.5-10.5 RED BLOOD CELL COUNT (BEAKER) (test arep=299) 3.83 M/ L 4.63-6.08 HEMOGLOBIN (BEAKER) (test yfgs=431) 12.5 GM/DL 13.7-17.5 HEMATOCRIT (BEAKER) (test utev=125) 36.7 % 40.1-51.0 MEAN CORPUSCULAR VOLUME (BEAKER) (test oztt=346) 95.8 fL 79.0-92.2 MEAN CORPUSCULAR HEMOGLOBIN (BEAKER) (test 32.6 pg 25.7-32.2 ongo=184) MEAN CORPUSCULAR HEMOGLOBIN CONC (BEAKER) (test 34.1 GM/DL 32.3-36.5 ojrx=465) RED CELL DISTRIBUTION WIDTH (BEAKER) (test 12.4 % 11.6-14.4 lhis=782) PLATELET COUNT (BEAKER) (test jlny=295) 267 K/CU MM 150-450 MEAN PLATELET VOLUME (BEAKER) (test epag=080) 9.7 fL 9.4-12.4 NUCLEATED RED BLOOD CELLS (BEAKER) (test 0 /100 WBC 0-0 yxjl=210) NEUTROPHILS RELATIVE PERCENT (BEAKER) (test 60 % ekzp=764) LYMPHOCYTES RELATIVE PERCENT (BEAKER) (test 26 % vkuf=797) MONOCYTES RELATIVE PERCENT (BEAKER) (test 7 % eelw=573) EOSINOPHILS RELATIVE PERCENT (BEAKER) (test 6 % evfm=688) BASOPHILS RELATIVE PERCENT (BEAKER) (test 1 % dwea=230) NEUTROPHILS ABSOLUTE COUNT (BEAKER) (test 4.15 K/ L 1.78-5.38 qwtq=208) LYMPHOCYTES ABSOLUTE COUNT (BEAKER) (test 1.82 K/ L 1.32-3.57 nopl=691) MONOCYTES ABSOLUTE COUNT (BEAKER) (test 0.47 K/ L 0.30-0.82 tirz=230) EOSINOPHILS ABSOLUTE COUNT (BEAKER) (test 0.38 K/ L 0.04-0.54 qcfd=581) BASOPHILS ABSOLUTE COUNT (BEAKER) (test 0.04 K/ L 0.01-0.08 zenj=464) COMPREHENSIVE METABOLIC [id number] 10:45:00 Test Item Value Reference Range Comments TOTAL PROTEIN (BEAKER) 6.2 gm/dL 6.0-8.3 (test kikd=849) ALBUMIN (BEAKER) (test 3.3 g/dL 3.5-5.0 jlyt=3170) ALKALINE PHOSPHATASE 70 U/L 40-150 (BEAKER) (test kkyf=714) BILIRUBIN TOTAL (BEAKER) 0.4 mg/dL 0.2-1.2 (test qpmm=760) SODIUM (BEAKER) (test 138 meq/L 136-145 fxlm=908) POTASSIUM (BEAKER) (test 3.5 meq/L 3.5-5.1 gatl=896) CHLORIDE (BEAKER) (test 109 meq/L 98-107 biyl=770) CO2 (BEAKER) (test 23 meq/L 22-29 ivpo=555) BLOOD UREA NITROGEN 5 mg/dL 7-21 (BEAKER) (test wcss=094) CREATININE (BEAKER) (test 0.54 mg/dL 0.57-1.25 jjvg=738) GLUCOSE RANDOM (BEAKER) 77 mg/dL 70-105 (test uajn=778) CALCIUM (BEAKER) (test 7.6 mg/dL 8.4-10.2 vdom=072) AST (SGOT) (BEAKER) (test 18 U/L 5-34 whby=555) ALT (SGPT) (BEAKER) (test 15 U/L 6-55 oyms=270) EGFR (BEAKER) (test 171 mL/min/1.73 sq ESTIMATED GFR IS NOT rfrx=9782) m ACCURATE CREATININE CLEARANCE IN PREDICTING GLOMERULAR FILTRATION RATE. ESTIMATED GFR IS NOT APPLICABLE FOR DIALYSIS PATIENTS. [id number] 10:29:00 Test Item Value Reference Range Comments TRIGLYCERIDES (BEAKER) (test dees=653) 58 mg/dL TRIGLYCERIDE REFERENCE RANGELow Risk <150Borderline Risk 150-199High Risk 200-499Very High Risk>=[id number] 10:29:00 Test Item Value Reference Range Comments MAGNESIUM (BEAKER) (test cwky=584) 1.4 mg/dL 1.6-2.6 [id number] 10:29:00 Test Item Value Reference Range Comments LIPASE (BEAKER) (test viiy=970) 536 U/L 8-78 PROTHROMBIN [id number] 10:22:00 Test Item Value Reference Range Comments PROTIME (BEAKER) (test vfnp=605) 14.3 seconds 11.7-14.7 INR (BENOITAKER) (test ssdb=660) 1.1 <=5.9 RECOMMENDED COUMADIN/WARFARIN INR THERAPY RANGESSTANDARD DOSE: 2.0 - 3.0 Includes: PROPHYLAXIS forvenous thrombosis, systemic embolization; TREATMENT for venous thrombosis and/or pulmonary embolus.HIGH RISK: Target INR is 2.5-3.5 for patients with mechanical heart valves.
--- OUTSIDE RECORDS SUMMARY | 2017-08-31 10:29 | XMS REPORT | Clinical Summary ---
:1980 Author Organization [facility] Address [address] [place] [address] Phone Care Team Providers Name Role Phone [...] Anesthesia Event Gastroenterology Dorota Cortes MD 05/13/2017 [facility] Internal Radha Alcohol-induced - Encounter Medicine MD Ulysses acute pancreatitis, 05/20/2017 Rafaela Samson, unspecified MD complication Diomedes Alvarado status;Alcohol MD Lul abuse;Cystic mass of pancreas;Smoker;Thr ombocytosis (HCC);Alcohol-induc ed acute pancreatitis without infection or necrosis;Smoking 03/13/2017 Procedure Pass Gastroenterology 03/11/2017 Procedure Pass Gastroenterology 03/10/2017 Anesthesia Event Gastroenterology Юлия Crump MD 03/09/2017 [facility] Internal [facility] Alcohol - Encounter Medicine MD Araceli abuse;Cystic mass 03/14/2017 Pavel Garcia MD pancreas;Hypokalemi Quyen, a;Alcohol-induced MD Yaneth acute pancreatitis, unspecified complication status;Portal vein thrombosis after 08/30/2016 Social History Tobacco Use Types Packs/Day Years Used Date Current Every Day Smoker Smokeless Tobacco: Never Used Sex Assigned at Date Recorded Not on file Last Filed Vital Signs Vital Sign Reading Time Taken Blood Pressure 124/78 05/20/2017 11:36 AM [employer] Pulse 84 05/20/2017 11:36 AM [employer] Temperature 35.7 C (96.2 F) 05/20/2017 11:36 AM [employer] Respiratory Rate 18 05/20/2017 11:36 AM [employer] Oxygen Saturation 98% 05/20/2017 11:36 AM [employer] ENGINEER Inhaled Oxygen Concentration - - Weight 57.1 kg (125 lb 12.8 oz) 05/13/2017 8:07 PM [employer] Height 167.6 cm (5' 6") 05/13/2017 8:07 PM [employer] Body Mass Index 20.3 05/13/2017 8:07 PM [employer] ENGINEER Plan of Treatment Not on file Results [...] FOR DIALYSIS PATIENTS. Specimen Performing Laboratory Blood [address] [address] CBC (Hemogram only) (05/17/2017 4:26 AM)Only the [...] Specimen Performing Laboratory Blood - Arm, Right [address] [address] CBC with platelet count + automated diff [...] % Specimen Performing Laboratory Blood - Arm, [address] [address] CBC with platelet count + automated diff (05/16/2017 11:05 AM)Only the most recent of6 resultswithin the time period is included. Specimen Performing Laboratory Blood Narrative The following orders were created for panel order CBC with platelet count + automated diff. Procedure Abnormality Status --------- ------ CBC with platelet count ...[[id number]]AbnormalFinal result Please view results for these tests [...] U/L Specimen Performing Laboratory Blood - Arm, [address] [address] Basic metabolic panel (05/16/2017 4:48 AM)Only the [...] PATIENTS. Specimen Performing Laboratory Blood - Arm, [address] [address] Lipase (05/14/2017 4:08 AM)Only the most recent of2 resultswithin the time period is included. Component Value Ref Range Lipase 1007 (H) 8 - 78 U/L Specimen Performing Laboratory Blood - Arm, [address] [address] Lipid panel (05/14/2017 4:08 AM) Component Value Ref Range Triglycerides 71 mg/dL Cholesterol 108 mg/dL HDL 22 mg/dL LDL Calculated 72 mg/dL Specimen Performing Laboratory Blood - Arm, [address] [address] Narrative Triglyceride Reference Range: Low Risk <150 [id number] High Risk 200-499 Very High Risk>=500 Cholesterol Reference Range: Low Risk <200 [id number] High Risk>240 HDL Cholesterol Reference Range: Low Risk >=60 High Risk <40 LDL Cholesterol Reference Range: Optimal<100 Near [id number] [id number] Ymth409-901 Very High >=190 MR abdomen without IV contrast MRCP (03/13/2017 11:33 AM) Specimen Performing Laboratory [email or web address] Narrative FINAL REPORT MRI of the abdomen, [...] MD Report Verified Date/Time:03/13/2017 12:25:41 Reading Location: [address] Consult Reading Room Procedure Note Interface, External Ris In - 03/13/2017 12:27 PM [employer] ENGINEER FINAL REPORT MRI of the abdomen, MRCP. [...] Report Verified Date/Time: 03/13/2017 12:25:41 Reading Location: [address] Consult Reading Room Manual Differential (03/11/2017 5:44 AM)Only the most recent of2 resultswithin the time period is included. Component Value Ref Range Total Counted WBC Morphology Normal Platelet Morphology Normal RBC Morphology Normal Specimen Performing Laboratory Blood - Line, Venous [address] [address] Prothrombin time/INR (03/09/2017 9:54 AM) Component Value Ref Range Protime 14.3 11.7 - 14.7 seconds INR 1.1 <=5.9 Specimen Performing Laboratory Blood [address] [address] Narrative RECOMMENDED COUMADIN/WARFARIN INR THERAPY RANGES STANDARD DOSE: 2.0 - 3.0 Includes: PROPHYLAXIS for venous thrombosis, systemic embolization; TREATMENT for venous thrombosis and/or pulmonary embolus. HIGH RISK: Target INR is 2.5-3.5 for patients with mechanical heart valves. Triglycerides (03/09/2017 9:54 AM) Component Value Ref Range Triglycerides 58 mg/dL Specimen Performing Laboratory Blood [address] [address] Narrative TRIGLYCERIDE REFERENCE RANGE Low Risk<150 Borderline Risk 150-199 High [id number] Very High Risk >=500 Magnesium (03/09/2017 9:54 AM) Component Value Ref Range Magnesium 1.4 (L) 1.6 - 2.6 mg/dL Specimen Performing Laboratory Blood [address] [address] after 08/30/2016
--- OUTSIDE RECORDS SUMMARY | 2017-08-31 10:29 | XMS REPORT ---
[...] End Status Dosage System Date Date Apixaban [facility] [address]-85 2.5 MG Orally Active not defined Tramadol HCl [facility] 98103733303 50 MG Orally Active 1 tablet every 6 hrs as needed Results No Known Results Summary Purpose eClinicalWorks Submission
[2017-08-31] MEDS ORDERED: Ringers Lactate 2,000 ML IV ONE (13:24)
[2017-08-31] MEDS ORDERED: MORPHINE 4 MG/ML SYR ONE ×3 (13:24→20:00)
[2017-08-31] MEDS ORDERED: ONDANSETRON 4 MG/2 ML VIAL ONE ×3 (13:24→20:00)
[2017-08-31] MEDS ORDERED: DIAZEPAM 10 MG/2 ML INJ SYRINGE ONE (13:43)
[2017-08-31 13:47] LABS: Absolute Lymphocytes (CBC) 1.2 K/uL (0.7-4.9); Absolute Monocytes 0.6 K/uL (0.1-1.3); Absolute Neutrophil 11.2 K/uL (1.8-8.0); Basophils % 0.1 % (0-1.3); Hematocrit 48.4 % (39.6-49.0); Lymphocytes % 9.5 % (15.3-44.8); MCH 30.7 pg (27.0-35.0); MCV 92.6 fL (80-100); MPV 8.2 fL (7.6-11.3); Monocytes % 4.8 % (3.3-12.3); RBC Red Blood Cell Count 5.22 M/uL (4.33-5.43)
[2017-08-31 13:51] LABS: Bicarbonate 24 mEq/L (21-31); Glucose Level 127 mg/dL (65-120); Lipase 193 U/L (22-51); Potassium 3.8 mEq/L (3.6-5.0); Sodium Level 135 mEq/L (135-145)
[2017-08-31 14:03] LABS: ALT/SGPT 10 IU/L (10-60); AST/SGOT 21 IU/L (10-42); Albumin 4.7 g/dL (3.2-5.5); Alkaline Phosphatase 83 IU/L (42-121); BUN Blood Urea Nitrogen 7 mg/dL (6-20); Bilirubin Direct 0.1 mg/dL (0-0.2); Bilirubin Total 0.6 mg/dL (0.3-1.2); Protein, Total 8.5 g/dL (6.0-8.3)
[2017-08-31 14:06] LABS: Amylase Level 393 U/L (28-100)
[2017-08-31 14:45] LABS: Platelet Estimate ADEQ; Urine White Blood Cell Casts OK
[2017-08-31 14:46] LABS: Blood Morphology Comment NOT SEEN (NOT SEEN)
[2017-08-31] MEDS ORDERED: Ringers Lactate 1,000 ML IV ONE (14:49)
--- NOTE | 2017-08-31 16:03 | ER ---
Nurse's Notes [facility] Name: Ankit Rosales Age: 37 yrs Sex: Male : 1980 Arrival Date: 08/31/2017 Time: 10:28 Bed 15 Private MD: None, None Diagnosis: Acute pancreatitis;Pseudocyst of pancreas Presentation: 08/31 10:30 Presenting complaint: Patient states: abd pain x 1 day. Denies n/v/d. Reports drinking sv 2 days ago. Transition of care: patient was not received from another setting of care. Onset of symptoms was August 30, 2017. Risk Assessment: Do you want to hurt yourself or someone else? Patient reports no desire to harm self or others. Care prior to arrival: None. 10:30 Method Of Arrival: Ambulatory sv 10:30 Acuity: KRAIG 3 sv 20:08 Initial Sepsis Screen: Does the patient meet any 2 criteria? No. Patient's initial bs1 sepsis screen is negative. Does the patient have a suspected source of infection? No. Patient's initial sepsis screen is negative. Historical: - Allergies: 10:31 cant take tylenol due to liver issues; sv - Home Meds: 10:31 Eliquis 2.5 mg Oral tab 1 tab 2 times per day [Active]; sv - PMHx: 10:31 Cirrhosis; GALLSTONES; left leg DVT; Pancreatitis; sv - PSHx: 10:31 None; sv - Immunization history:: Adult Immunizations up to date. - Social history:: Smoking status: Patient uses tobacco products, smokes one pack cigarettes per day. Patient uses alcohol, occasionally. Patient/guardian denies using street drugs, IV drugs. - Ebola Screening: : No symptoms or risks identified at this time. Screenin:13 Abuse screen: Denies threats or abuse. Nutritional screening: No deficits noted. tl3 Tuberculosis screening: No symptoms or risk factors identified. Fall Risk None identified. Assessment: 13:13 General: Appears distressed, uncomfortable, slender, Behavior is cooperative, anxious. tl3 Pain: Complains of pain in abdomen Pain currently is 10 out of 10 on a pain scale. Neuro: Level of Consciousness is awake, alert, obeys commands, Oriented to person, place, time, situation, Appropriate for age. Cardiovascular: Heart tones S1 S2 present Patient's skin is warm and dry. Respiratory: Airway is patent Respiratory effort is even, unlabored, Respiratory pattern is regular, symmetrical. GI: Bowel sounds present X 4 quads. hyperactive in right upper quadrant, left upper quadrant, right lower quadrant and left lower quadrant Abdomen is tender to palpation Guarding noted. : No signs and/or symptoms were reported regarding the genitourinary system. EENT: No signs and/or symptoms were reported regarding the EENT system. Derm: No signs and/or symptoms reported regarding the dermatologic system. Musculoskeletal: No signs and/or symptoms reported regarding the musculoskeletal system. 13:18 Reassessment: pt states last drinking binge on Friday, was last admitted last month for tl3 pancreatitis. 13:56 Reassessment: No changes from previously documented assessment. Patient and/or family tl3 updated on plan of care and expected duration. Pain level reassessed. Patient is alert, oriented x 3, equal unlabored respirations, skin warm/dry/pink. pt resting much more comfortably, IV infusing without difficulty. 14:05 Reassessment: critical lab result amylase 393, YVONNE Box notified. em 15:07 Reassessment: No changes from previously documented assessment. Patient and/or family tl3 updated on plan of care and expected duration. Pain level reassessed. Patient is alert, oriented x 3, equal unlabored respirations, skin warm/dry/pink. 18:15 Reassessment: Patient and/or family updated on plan of care and expected duration. Pain tl3 level reassessed. Patient is alert, oriented x 3, equal unlabored respirations, skin warm/dry/pink. pt nauseated and vomiting. 19:10 Reassessment: Report received from MIRYAM Nolan. bs1 19:10 General: Appears uncomfortable, slender, Behavior is cooperative, anxious. Pain: bs1 Complains of pain in left lower quadrant and right lower quadrant and left upper quadrant and right upper quadrant and abdomen. Neuro: Level of Consciousness is awake, alert, obeys commands, Oriented to person, place, time, situation, Appropriate for age. Cardiovascular: Denies chest pain, shortness of breath, Heart tones S1 S2 present Capillary refill < 3 seconds Patient's skin is warm and dry. Respiratory: Airway is patent Trachea midline Respiratory effort is even, unlabored, Respiratory pattern is regular, symmetrical, Breath sounds are clear bilaterally. GI: Abdomen is round Bowel sounds hyperactive in left lower quadrant and right lower quadrant and left upper quadrant and right upper quadrant Abdomen is tender to palpation X 4 quads. Guarding noted. : No signs and/or symptoms were reported regarding the genitourinary system. EENT: No signs and/or symptoms were reported regarding the EENT system. Derm: No signs and/or symptoms reported regarding the dermatologic system. Musculoskeletal: Circulation, motion, and sensation intact. Capillary refill < 3 seconds, Range of motion: intact in all extremities. 20:00 Reassessment: Patient requesting pain medicine prior to transfer, informed YVONNE Box. bs1 Verbal order for morphine 4mg and zofran 4mg IV x1. 20:05 Reassessment: Report given to [facility]. bs1 Vital Signs: 10:31 BP 133 / 86; Pulse 97; Resp 20; Temp 97.8; Pulse Ox 99% ; Weight 59.87 kg; Height 5 ft. sv 6 in. (167.64 cm); Pain 10/10; 13:13 BP 130 / 103; Pulse 78; Resp 22; Pulse Ox 100% ; tl3 13:56 BP 156 / 90; Pulse 98; Resp 18; Pulse Ox 98% on R/A; tl3 15:07 BP 151 / 90; Pulse 90; Resp 18; Pulse Ox 99% ; tl3 16:25 BP 142 / 94; Pulse 95; Resp 18; Pulse Ox 98% on R/A; mh5 18:15 BP 128 / 76; Pulse 86; Resp 16; Pulse Ox 98% ; tl3 19:15 BP 131 / 87; Pulse 81; Resp 16; Pulse Ox 98% on R/A; bs1 19:45 BP 138 / 82; Pulse 80; Resp 16; Temp 98(O); Pulse Ox 98% on R/A; Pain 9/10; bs1 10:31 Body Mass Index 21.31 (59.87 kg, 167.64 cm) sv ED Course: 10:28 Patient arrived in ED. sb2 10:28 None, None is Private Physician. sb2 10:31 Triage completed. sv 10:31 Arm band placed on right wrist. sv 13:00 An Alcantar RN is Primary Nurse. tl3 13:01 Isauro Garrido PA is PHCP. jmm 13:01 Wang Murdock MD is Attending Physician. jmm 13:09 Patient placed in an exam room, on a stretcher. sv 13:13 Patient has correct armband on for positive identification. Bed in low position. Call tl3 light in reach. Side rails up X2. Pulse ox on. NIBP on. 13:13 No provider procedures requiring assistance completed. Inserted saline lock: 20 gauge tl3 in right forearm, using aseptic technique. Blood collected. 16:02 Ting Hair MD is Hospitalizing Provider. jmm 16:34 Patient moved to ID via wheelchair. tl3 16:37 CT Abd/Pelvis - W/Contrast In Process Unspecified. EDMS 16:38 CT completed. Patient tolerated procedure well. Patient moved back from ID. bq 20:08 Patient transferred, IV remains in place. intact. bs1 Administered Medications: 13:35 Drug: Zofran 4 mg Route: IVP; Site: right forearm; tl3 14:56 Follow up: Response: No adverse reaction tl3 13:36 Drug: Lactated Ringers Solution 2000 ml Route: IV; Rate: bolus; Site: right forearm; tl3 14:55 Follow up: IV Status: Completed infusion; IV Intake: 2000ml tl3 13:36 Drug: morphine 4 mg Route: IVP; Site: right forearm; tl3 14:56 Follow up: Response: No adverse reaction; Marked relief of symptoms tl3 13:55 Drug: Valium 5 mg Route: IVP; Infused Over: 2 mins; Site: right forearm; tl3 14:56 Follow up: Response: No adverse reaction; Marked relief of symptoms tl3 15:07 Drug: Lactated Ringers Solution 1000 ml Route: IV; Rate: 200 ml/hr; Site: right forearm;tl3 20:09 Follow up: IV Status: Infusion continued upon transfer bs1 17:30 Drug: morphine 4 mg Route: IVP; Site: right forearm; tl3 18:18 Follow up: Response: Nausea is increased tl3 18:38 Drug: Zofran 4 mg Route: IVP; Site: right forearm; tl3 20:10 Follow up: Response: No adverse reaction bs1 18:39 Drug: Valium 5 mg Route: IVP; Infused Over: 3 mins; Site: right forearm; tl3 20:10 Follow up: Response: No adverse reaction bs1 20:03 Drug: morphine 4 mg Route: IVP; Site: right forearm; bs1 20:10 Follow up: Response: No adverse reaction bs1 20:03 Drug: Zofran 4 mg Route: IVP; Site: right forearm; bs1 20:09 Follow up: Response: No adverse reaction bs1 Intake: 14:55 IV: 2000ml; Total: 2000ml. tl3 Outcome: 16:02 Decision to Hospitalize by Provider. [facility] 17:59 ER care complete, transfer ordered by MD. [facility] 20:07 Transferred by ground EMS to [facility], Transfer form completed. bs1 X-rays sent w/ patient. Note: [facility] 20[facility]07 Condition: stable 20:07 Instructed on the need for transfer, Demonstrated understanding of instructions. 20:11 Patient left the ED. bs1 Signatures: Dispatcher [employer] Alexandra Rodarte, RN RN Isauro Garrido PA PA Myra Burnham Edgar, PAPER TESTER PAPER TESTER Leona Penn [facility] Lydia Benjamin, RN RN bs1 Sara Guevara sb2 An Alcantar, RN RN tl3 Corrections: (The following items were deleted from the chart) 10:33 10:30 Presenting complaint: Patient states: abd pain x 1 day. Denies n/v/d. [facility] 18:19 18:18 Response: No adverse reaction; Nausea is increased tl3 tl3
--- NOTE | 2017-08-31 16:03 | EDPHYS ---
Physician Documentation [facility] Name: Ankit Rosales Age: 37 yrs Sex: Male : 1980 Arrival Date: 08/31/2017 Time: 10:28 Bed 15 Private MD: None, None ED Physician Wang Murdock HPI: 08/31 13:22 This 37 yrs old Male presents to ER via Ambulatory with complaints of m Abdominal Pain - Pancreatitis. 13:22 The patient presents with abdominal pain. Onset: The symptoms/episode began/occurred jmm gradually, 1 day(s) ago. The symptoms do not radiate. Associated signs and symptoms: Pertinent positives: vomiting. This is a 37 year old male with a hx of alcoholism, pancreatitis that presents to the ED with epigastric abdominal pain beginning 1 day ago. Patient states he was recently hospitalized with similar symptoms 1 month prior. States he has been drinking 1 to 2 beers a day for the past week. . Historical: - Allergies: 10:31 cant take tylenol due to liver issues; sv - Home Meds: 10:31 Eliquis 2.5 mg Oral tab 1 tab 2 times per day [Active]; sv - PMHx: 10:31 Cirrhosis; GALLSTONES; left leg DVT; Pancreatitis; sv - PSHx: 10:31 None; sv - Immunization history:: Adult Immunizations up to date. - Social history:: Smoking status: Patient uses tobacco products, smokes one pack cigarettes per day. Patient uses alcohol, occasionally. Patient/guardian denies using street drugs, IV drugs. - Ebola Screening: : No symptoms or risks identified at this time. ROS: 13:22 Constitutional: Negative for fever, chills, and weight loss, Cardiovascular: Negative jmm for chest pain, palpitations, and edema, Respiratory: Negative for shortness of breath, cough, wheezing, and pleuritic chest pain. 13:22 MS/Extremity: Negative for injury and deformity, Skin: Negative for injury, rash, and discoloration, Neuro: Negative for headache, weakness, numbness, tingling, and seizure. 13:22 Abdomen/GI: Positive for abdominal pain, vomiting. 13:22 All other systems are negative. Exam: 13:22 Head/Face: atraumatic. jmm 13:22 Back: No spinal tenderness. No costovertebral tenderness. Full range of motion. 13:22 Constitutional: The patient appears alert, awake, uncomfortable. 13:22 Cardiovascular: Rate: normal, Rhythm: regular, Pulses: 13:22 Respiratory: the patient does not display signs of respiratory distress, Respirations: normal. 13:22 Abdomen/GI: Inspection: abdomen appears normal, Bowel sounds: normal, Palpation: soft, moderate abdominal tenderness, in the right upper quadrant and left upper quadrant. 13:22 Skin: Appearance: Color: normal in color, Temperature: normal temperature, Moisture: normal moisture. 13:22 Neuro: Orientation: is normal, Mentation: is normal, Memory: is normal. Vital Signs: 10:31 BP 133 / 86; Pulse 97; Resp 20; Temp 97.8; Pulse Ox 99% ; Weight 59.87 kg; Height 5 ft. sv 6 in. (167.64 cm); Pain 10/10; 13:13 BP 130 / 103; Pulse 78; Resp 22; Pulse Ox 100% ; tl3 13:56 BP 156 / 90; Pulse 98; Resp 18; Pulse Ox 98% on R/A; tl3 15:07 BP 151 / 90; Pulse 90; Resp 18; Pulse Ox 99% ; tl3 16:25 BP 142 / 94; Pulse 95; Resp 18; Pulse Ox 98% on R/A; mh5 18:15 BP 128 / 76; Pulse 86; Resp 16; Pulse Ox 98% ; tl3 19:15 BP 131 / 87; Pulse 81; Resp 16; Pulse Ox 98% on R/A; bs1 19:45 BP 138 / 82; Pulse 80; Resp 16; Temp 98(O); Pulse Ox 98% on R/A; Pain 9/10; bs1 10:31 Body Mass Index 21.31 (59.87 kg, 167.64 cm) sv MDM: 13:20 Patient medically screened. gaby 13:22 Differential diagnosis: bowel obstruction, gastritis, non-specific abd pain, gaby pancreatitis, Peptic Ulcer Disease, Peritonitis. Data reviewed: vital signs, nurses notes. 15:59 Data reviewed: old medical records, lab test result(s). Physician consultation: Ting Hair MD I discussed the patient with Dr. Hair whom accept admission. ED course: Patient appears comfortable and is resting on reexamination. Upon awakening the patient requested more pain medication. Patient will be admitted for pancreatitis and fluid hydration. I discussed the need for ETOH cessation with the patient. . 17:00 ED course: Due to concerns for need for GI along with new CT findings, Dr. Hair [facility] advised transfer.. 17:37 ED course: 1734 - Discussed the patient with Dr. Alejandre whom will consult on transfer. [facility] 17:55 ED course: 175 - I discussed the patient with Dr. Armstrong whom accepted transfer. ED [facility] course: . 17:57 Data reviewed: radiologic studies, CT scan. [facility] 08/31 13:22 Order name: Amylase, Serum; Complete Time: 14:26 [facility] 08/31 13:22 Order name: Basic Metabolic Panel; Complete Time: 14:26 [facility] 08/31 13:22 Order name: CBC with Diff; Complete Time: 14:46 [facility] 08/31 13:22 Order name: Creatinine for Radiology; Complete Time: 14:26 [facility] 08/31 13:22 Order name: Hepatic Function; Complete Time: 14:26 [facility] 08/31 13:22 Order name: Lipase; Complete Time: 14:26 [facility] 08/31 13:22 Order name: Urine Microscopic Only; Complete Time: 19:01 [facility] 08/31 13:51 Order name: CBC Smear Scan; Complete Time: 14:46 [facility] 08/31 16:14 Order name: CT Abd/Pelvis - W/Contrast; Complete Time: 17:00 [facility] 08/31 19:07 Order name: Urine Dipstick--Ancillary (enter results) ri 08/31 13:22 Order name: IV Saline Lock; Complete Time: 13:38 [facility] 08/31 13:22 Order name: Labs collected and sent; Complete Time: 13:38 [facility] Administered Medications: 13:35 Drug: Zofran 4 mg Route: IVP; Site: right forearm; tl3 14:56 Follow up: Response: No adverse reaction tl3 13:36 Drug: Lactated Ringers Solution 2000 ml Route: IV; Rate: bolus; Site: right forearm; tl3 14:55 Follow up: IV Status: Completed infusion; IV Intake: 2000ml tl3 13:36 Drug: morphine 4 mg Route: IVP; Site: right forearm; tl3 14:56 Follow up: Response: No adverse reaction; Marked relief of symptoms tl3 13:55 Drug: Valium 5 mg Route: IVP; Infused Over: 2 mins; Site: right forearm; tl3 14:56 Follow up: Response: No adverse reaction; Marked relief of symptoms tl3 15:07 Drug: Lactated Ringers Solution 1000 ml Route: IV; Rate: 200 ml/hr; Site: right forearm;tl3 20:09 Follow up: IV Status: Infusion continued upon transfer bs1 17:30 Drug: morphine 4 mg Route: IVP; Site: right forearm; tl3 18:18 Follow up: Response: Nausea is increased tl3 18:38 Drug: Zofran 4 mg Route: IVP; Site: right forearm; tl3 20:10 Follow up: Response: No adverse reaction bs1 18:39 Drug: Valium 5 mg Route: IVP; Infused Over: 3 mins; Site: right forearm; tl3 20:10 Follow up: Response: No adverse reaction bs1 20:03 Drug: morphine 4 mg Route: IVP; Site: right forearm; bs1 20:10 Follow up: Response: No adverse reaction bs1 20:03 Drug: Zofran 4 mg Route: IVP; Site: right forearm; bs1 20:09 Follow up: Response: No adverse reaction bs1 Disposition: 08/31/17 17:[address] [facility]. Diagnosis are Acute pancreatitis, Pseudocyst of pancreas. - Reason for transfer: Higher level of care. - Accepting physician is Patti. - Condition is Stable. - Problem is an acute exacerbation. - Symptoms have improved. Addendum: 09/04/2017 12:16 Co-signature as Attending Physician, Wang Murdock MD. g s Signatures: Dispatcher [employer] Alexandra Rodarte, RN RN Isauro Christensen PA PA [facility] Wang Murdock MD MD Lydia Benjamin RN RN bs1 An Alcantar RN RN tl3 Corrections: (The following items were deleted from the chart) 08/31 16:20 16:02 Hospitalization Ordered by Ting Hair MD for Observation. Preliminary [facility] diagnosis is Acute pancreatitis. Bed requested for Telemetry/MedSurg (observation). Status is Observation. Condition is Stable. Problem is an ongoing problem. Symptoms have improved. UTI on Admission? No. [facility] 20:11 17:59 08/31/2017 17:[address] [facility]. Diagnosis is bs1 Acute pancreatitis; Pseudocyst of pancreas. Reason for transfer: Higher level of care. Accepting physician is Patti. Condition is Stable. Problem is an acute exacerbation. Symptoms have improved. gaby
--- NOTE | 2017-08-31 16:59 | RAD REPORT ---
EXAM DESCRIPTION: CT - Abdomen Pelvis W Contrast - 08/31/2017 4:37 pm CLINICAL HISTORY: Abdominal pain for 1 day COMPARISON: June 2017 TECHNIQUE: Computed axial tomography of the abdomen pelvis was obtained. 100 cc Isovue-300 was admin istered intravenously. Oral contrast was not requested which limits evaluation of bowel. All CT scans are performed using dose optimization technique as appropriate and may include automated exposure control or mA/KV adjustment according to patient size. FINDINGS: A pseudocyst within the region of the pancreatic head has increased in size currently gagan uring 4.5 by 3.7 centimeters. Previously it measured 3.3 x 2.4 centimeters. A 2.6 centimeters pseudoc yst lies inferior and to the right of this. Ill-defined fluid and stranding within the mesenteries li es anterior to the right kidney and medial to the liver measuring 5 centimeters and having the appear ance of a phlegmonous collection. Small amount of ascites is present within Ratliff's pouch and pelv is. The pancreatic duct is mildly dilated. The remainder the pancreas is normal size. The pancreatic pare nchyma is mildly inhomogeneous. The spleen, adrenals, liver and kidney appear unremarkable. There is no evidence of diverticulitis. IMPRESSION: 4.5 x 3.7 centimeter pseudocysts has enlarged since the prior exam. An additional smalle r pseudocysts is present within the right abdomen. 5 centimeter phlegmonous/ inflammatory collection within the right abdomen Mild inhomogeneity of the pancreas may indicate a mild acute pancreatitis.
[2017-08-31 18:23] LABS: Urine Bacteria <20 /HPF (NONE SEEN); Urine Culture Reflex Order NOT NEEDED; Urine RBC <5 /HPF (NONE SEEN)
[2017-08-31 20:14] LABS: Urine Blood NEGATIVE (NEG); Urine Glucose NEGATIVE (NEG); Urine Protein NEGATIVE (NEG); Urine Specific Gravity 1.015 (1.005-1.030); Urine pH 8.5 (5.0-7.0)
[2017-08-31 20:19] VITALS: O2SAT 98
[2017-08-31 20:23] VITALS: BP 138/82; TEMP 98
== END 2017-08-31 20:11 | disposition short-term general hospital (02) ==
LOC: ER 10:26
DX: K85.90 Acute pancreatitis without necrosis or infection, unspecified (principal); K86.3 Pseudocyst of pancreas; K74.60 Unspecified cirrhosis of liver; F17.210 Nicotine dependence, cigarettes, uncomplicated; Z79.02 Long term (current) use of antithrombotics/antiplatelets; Z86.718 Personal history of other venous thrombosis and embolism
CPT/HCPCS: 36415; 74177; 80048; 80076; 81003; 81015; 82150; 83690; 85025; 96361; 96374; 96375; 99285; J2405; J3360; Q9967

== ENCOUNTER 2017-09-13 15:01 | Emergency (ER) | payer SELFPAY ==
--- OUTSIDE RECORDS SUMMARY | 2017-09-13 15:04 | XMS REPORT | Clinical Summary ---
:1980 Author Organization [facility] Address [address] [place] [address] Phone Care Team Providers Name Role Phone Unavailable Primary Care Provider Unavailable Allergies Active Allergy Reactions Severity Noted Date Comments Acetaminophen 03/09/2017 Current Medications Prescription Sig. Disp. Refills Start Date End Date Status apixaban (ELIQUIS) 5 Take 2.5 mg Active mg Tab by mouth 2 tabletIndications: (two) times deep venous daily. thrombosis folic acid (FOLVITE) Take 1 tablet 30 tablet 0 03/15/2017 03/15/2018 Active 1 MG tablet (1 mg total) by mouth daily. thiamine 100 MG Take 1 tablet 30 tablet 0 03/15/2017 03/15/2018 Active tablet (100 mg total) by mouth daily. HYDROcodone-acetamin Take 1 tablet 30 tablet 0 09/09/2017 Active ophen (NORCO 10-325) by mouth 10-325 mg per every 6 (six) tabletIndications: hours as Pain needed for Pain. Max Daily Amount: 4 tablets nicotine (NICODERM Place 1 patch 28 patch 0 03/15/2017 04/14/2017 CQ) 21 mg/24 hr onto the skin patch daily for 30 days. HYDROcodone-acetamin Take 1 tablet 09/09/2017 Discontinued ophen (NORCO 10-325) by mouth 10-325 mg per every 6 (six) tabletIndications: hours as Pain needed for Pain. ondansetron Take 1 tablet 20 tablet 0 05/20/2017 05/30/2017 (ZOFRAN-ODT) 4 MG (4 mg total) disintegrating by mouth tablet every 8 (eight) hours as needed for up to 10 days. Active Problems Problem Noted Date History of DVT (deep vein thrombosis) 09/01/2017 Cystic mass of pancreas 03/09/2017 Alcohol abuse 03/09/2017 Pancreatitis 03/09/2017 Smoker 03/09/2017 Portal vein thrombosis 03/09/2017 Resolved Problems Problem Noted Date Resolved Date Thrombocytosis (HCC) 05/13/2017 09/01/2017 Abdominal pain 03/09/2017 09/01/2017 Mass of pancreas 03/09/2017 09/01/2017 Hypokalemia 03/09/2017 09/01/2017 Encounters Date Type Specialty Care Team Description 09/08/2017 Procedure Pass Gastroenterology 09/08/2017 Surgery Gastroenterology Bessy Hernandez UPPER ENDOSCOPY MD Fredi 09/07/2017 Anesthesia Event Gastroenterology Shikha Motley MD 09/01/2017 Orders Only General Internal Medicine 08/31/2017 [facility], Alcohol - Encounter Talisha Wright MD abuse;Cystic mass 09/09/2017 [place], of pancreas;History Caden-Dannie of DVT (deep vein MD Nayely thrombosis);Alcohol Michael, Larry -induced acute MD Dario pancreatitis Farrukh Ryan MD without infection Nazia Rivera or MD Bradley necrosis;Smoker;Por selina vein thrombosis 05/21/2017 Procedure Pass Gastroenterology 05/19/2017 Anesthesia Event Gastroenterology Dorota Cortes MD 05/13/2017 [facility] Internal Radha Alcohol-induced - Encounter Medicine MD Ulysses acute pancreatitis, 05/20/2017 Rafaela Samson, unspecified MD complication Diomedes Alvarado status;Alcohol MD Lul abuse;Cystic mass of pancreas;Smoker;Thr ombocytosis (HCC);Alcohol-induc ed acute pancreatitis without infection or necrosis;Smoking 03/13/2017 Procedure Pass Gastroenterology 03/11/2017 Procedure Pass Gastroenterology 03/10/2017 Anesthesia Event Gastroenterology Юлия Crump MD 03/09/2017 [facility] Internal [place], [facility] Alcohol - Encounter Medicine MD Araceli abuse;Cystic mass 03/14/2017 Pavel Garcia MD pancreas;Hypokalemi Sarahiani, a;Alcohol-induced MD Yaneth acute pancreatitis, unspecified complication status;Portal vein thrombosis after 09/12/2016 Social History Tobacco Use Types Packs/Day Years Used Date Current Every Day Smoker Smokeless Tobacco: Never Used Sex Assigned at Date Recorded Not on file Last Filed Vital Signs Vital Sign Reading Time Taken Blood Pressure 124/72 09/09/2017 10:29 AM CDT Pulse 59 09/09/2017 10:29 AM CDT Temperature 36.6 C (97.9 F) 09/09/2017 10:29 AM CDT Respiratory Rate 17 09/09/2017 10:29 AM CDT Oxygen Saturation 98% 09/09/2017 10:29 AM CDT Inhaled Oxygen Concentration - - Weight 53.5 kg (117 lb 14.4 oz) 09/09/2017 5:34 AM CDT Height 167.6 cm (5' 5.98") 08/31/2017 10:20 PM CDT Body Mass Index 19.04 09/09/2017 5:34 AM CDT Plan of Treatment Not on file Procedures Procedure Name Priority Date/Time Associated Diagnosis Comments UPPER ENDOSCOPY,FNA 09/08/2017 5:00 PM Pancreatic pseudocyst W/ULTRASOUND CDT UPPER ENDOSCOPY 09/08/2017 5:00 PM Pancreatic pseudocyst CDT after 09/12/2016 Results RHYTHM STRIP - SCAN (09/10/2017 10:40 AM)aPTT (09/09/2017 9:37 AM)Only the most recent of9 resultswithin the time period is included. Component Value Ref Range PTT 44.5 (H) 22.5 - 36.0 seconds Specimen Performing Laboratory Blood [facility] [address] [address] CBC with platelet count + automated diff (09/09/2017 5:12 AM)Only the most recent of13 resultswithin the time period is included. Component Value Ref Range WBC 4.6 3.5 - 10.5 K/L RBC 3.83 (L) 4.63 - 6.08 M/L Hemoglobin 11.7 (L) 13.7 - 17.5 GM/DL Hematocrit 34.7 (L) 40.1 - 51.0 % MCV 90.6 79.0 - 92.2 fL MCH 30.5 25.7 - 32.2 pg MCHC 33.7 32.3 - 36.5 GM/DL RDW 14.3 11.6 - 14.4 % Platelets 378 150 - 450 K/CU MM MPV 9.0 (L) 9.4 - 12.4 fL nRBC 0 0 - 0 /100 WBC % Neutros 39 % % Lymphs 43 % % Monos 12 % % Eos 5 % % Baso 1 % # Neutros 1.81 1.78 - 5.38 K/L # Lymphs 2.01 1.32 - 3.57 K/L # Monos 0.55 0.30 - 0.82 K/L # Eos 0.21 0.04 - 0.54 K/L # Baso 0.05 0.01 - 0.08 K/L Immature Granulocytes-Relative 0 0 - 1 % Specimen Performing Laboratory Blood - [place], [address] [address] CBC with platelet count + automated diff (09/09/2017 5:12 AM)Only the most recent of13 resultswithin the time period is included. Specimen Performing Laboratory Blood Narrative The following orders were created for panel order CBC with platelet count + automated diff. Procedure Abnormality Status --------- ------ CBC with platelet count ...[[id number]]AbnormalFinal result Please view results for these tests on the individual orders. Basic Metabolic Panel (09/09/2017 5:12 AM)Only the most recent of13 resultswithin the time period is included. Component Value Ref Range Sodium 138 136 - 145 meq/L Potassium 3.7 3.5 - 5.1 meq/L Chloride 105 98 - 107 meq/L CO2 25 22 - 29 meq/L BUN 7 7 - 21 mg/dL Creatinine 0.62 0.57 - 1.25 mg/dL Glucose 120 (H) 70 - 105 mg/dL Calcium 8.7 8.4 - 10.2 mg/dL EGFR 145Comment: ESTIMATED GFR IS NOT ACCURATE mL/min/1.73 sq m CREATININE CLEARANCE IN PREDICTING GLOMERULAR FILTRATION RATE. ESTIMATED GFR IS NOT APPLICABLE FOR DIALYSIS PATIENTS. Specimen Performing Laboratory Blood - Arm, [address] [address] REPORT OF PROCEDURE - ENDOSCOPY URL (09/08/2017 5:47 PM)Fine Needle Aspirate ( 09/08/2017 5:43 PM) Component Value Ref Range Cytology See Separate Report Specimen Performing Laboratory Fine Needle Aspirate - Pancreas [address] [place] [address] Fine Needle Aspirate by Clinician (09/08/2017 5:43 PM) Component Value Ref Range Case Report Medical Cytology Report Case: [id number] Authorizing Provider:Bessy Hernandez MDCollected: 09/08/2017 1743 Ordering Location: [address] Received: 09/08/2017 1814 Service Pathologist: Mir Anthony MD Specimen:Pancreas DIAGNOSIS PANCREAS HEAD CYSTIC LESION FNA BY CLINICIAN (CYTOSPINS AND CELL BLOCK OF ASPIRATE): - NO MALIGNANT CELLS IDENTIFIED - The mucin stain shows focal weak staining Signing Pathologist Direct Phone Line: [phone] COMMENT The cell block shows non-inflammed pancreatic acinar tissue. CPT Code(s) 50922, 75902, 55301 CLINICAL DATA (4.9 X 4.8 cm) Cystic lesion in the pancreatic head SPECIMEN SOURCE PANCREAS HEAD CYSTIC LESION FNA GROSS DESCRIPTION 25 mls in cytorich red; 4 cytospins, 1 mucin stain, cell block Collected: [id number] Received: [id number] Technical component was performed at [facility], Department of Pathology, [address] [place] [id number], Professional component was performed [facility], at Department of Pathology, [address] [place] [id number], Specimen Performing Laboratory Fine Needle Aspirate - Pancreas [address] [address] Phosphorus (09/05/2017 3:18 AM)Only the most recent of4 resultswithin the time period is included. Component Value Ref Range Phosphorus 2.8 2.3 - 4.7 mg/dL Specimen Performing Laboratory Blood - Arm, [address] [address] Magnesium (09/05/2017 3:18 AM)Only the most recent of5 resultswithin the time period is included. Component Value Ref Range Magnesium 1.3 (L) 1.6 - 2.6 mg/dL Specimen Performing Laboratory Blood - Arm, [address] [address] Lipase (09/05/2017 3:18 AM)Only the most recent of4 resultswithin the time period is included. Component Value Ref Range Lipase 210 (H) 8 - 78 U/L Specimen Performing Laboratory Blood - Arm, Right [facility] [address] [address] [address] abd/pelvis - pancreas evaluation (09/04/2017 12:20 AM) Specimen Performing Laboratory GE RIS Narrative FINAL REPORT CT, ABDOMEN - PELVIS, PANCREAS EVALUATION INDICATION: pancreatitis COMPARISON: Correlation to MRCP March 13, 2017 and sonographic examination September 01, 2017 TECHNIQUE: Multiphase pre and postcontrast abdomen and pelvis CT.Coronal and sagittal reformatted images obtained. DOSE REDUCTION: Dose modulation, iterative reconstruction, and/or weight-based adjustment of the mA/kV was utilized to reduce the radiation dose to as low as reasonably achievable. FINDINGS: Multilobulated cystic lesion in the region of the pancreatic head with layering debris. Predominant bilobed portion of this structure measures approximately 7.3 x 4.0 cm. Suspected dependent stones noted in the larger compartment, more proximal to the superior mesenteric artery. No aneurysmal dilation is identified in the adjacent arterial structures. There is no mass effect on the portosplenic confluence. The pancreatic parenchyma at the head is not well characterized. Pancreatic body and tail are unremarkable. Main pancreatic duct is dilated. There is prominence of the common bile duct without spencer dilation. No stones are noted within the gallbladder. There is no intrahepatic biliary dilation or focal hepatic lesion. Inflammatory changes surround the lesion. No bowel dilation is present. Colon caliber is normal. There is no pneumatosis. The appendix is air-filled and of normal caliber. Small volume ascites is noted within the lower abdomen and pelvis. Mesenteric edema is also present. The urinary bladder is unremarkable. Prostate gland size is prominent. No aortic aneurysm is present. There is no significant calcific atherosclerotic disease. Osseous structures are within normal limits. IMPRESSION: Lobulated cystic lesion in the region of the pancreatic head with layering debris. Pseudocyst is favored, superinfection cannot be excluded radiographically. Dilation of the main pancreatic duct. No vascular compromise. Signed: JR Kelly Robert MD Report Verified Date/Time:09/04/2017 00:22:52 Reading Location: [address] Reading Room Procedure Note Interface, External Ris In - 09/04/2017 12:25 AM CDT FINAL REPORT CT, ABDOMEN - PELVIS, PANCREAS EVALUATION INDICATION: pancreatitis COMPARISON: Correlation to MRCP March 13, 2017 and sonographic examination September 01, 2017 TECHNIQUE: Multiphase pre and postcontrast abdomen and pelvis CT. Coronal and sagittal reformatted images obtained. DOSE REDUCTION: Dose modulation, iterative reconstruction, and/or weight-based adjustment of the mA/kV was utilized to reduce the radiation dose to as low as reasonably achievable. FINDINGS: Multilobulated cystic lesion in the region of the pancreatic head with layering debris. Predominant bilobed portion of this structure measures approximately 7.3 x 4.0 cm. Suspected dependent stones noted in the larger compartment, more proximal to the superior mesenteric artery. No aneurysmal dilation is identified in the adjacent arterial structures. There is no mass effect on the portosplenic confluence. The pancreatic parenchyma at the head is not well characterized. Pancreatic body and tail are unremarkable. Main pancreatic duct is dilated. There is prominence of the common bile duct without spencer dilation. No stones are noted within the gallbladder. There is no intrahepatic biliary dilation or focal hepatic lesion. Inflammatory changes surround the lesion. No bowel dilation is present. Colon caliber is normal. There is no pneumatosis. The appendix is air-filled and of normal caliber. Small volume ascites is noted within the lower abdomen and pelvis. Mesenteric edema is also present. The urinary bladder is unremarkable. Prostate gland size is prominent. No aortic aneurysm is present. There is no significant calcific atherosclerotic disease. Osseous structures are within normal limits. IMPRESSION: Lobulated cystic lesion in the region of the pancreatic head with layering debris. Pseudocyst is favored, superinfection cannot be excluded radiographically. Dilation of the main pancreatic duct. No vascular compromise. Signed: JR Kelly Robert MD Report Verified Date/Time: 09/04/2017 00:22:52 Reading Location: [address] Reading Room Hepatic function panel (09/03/2017 5:21 AM)Only the most recent of5 resultswithin the time period is included. Component Value Ref Range Protein, Total 5.7 (L)Comment: Specimen slightly hemolyzed 6.0 - 8.3 gm/dL Albumin 3.0 (L)Comment: Specimen slightly hemolyzed 3.5 - 5.0 g/dL Total Bilirubin 1.2Comment: Specimen slightly hemolyzed 0.2 - 1.2 mg/dL Bilirubin, Direct 0.4Comment: Specimen slightly hemolyzed 0.1 - 0.5 mg/dL Alkaline Phosphatase 62 40 - 150 U/L AST 18Comment: Specimen slightly hemolyzed 5 - 34 U/L ALT <6 (L)Comment: Specimen slightly hemolyzed 6 - 55 U/L Specimen Performing Laboratory Blood - Line, Venous [address] [address] POC-Glucose meter (09/02/2017 7:29 AM)Only the most recent of2 resultswithin the time period is included. Component Value Ref Range POC-Glucose Meter 140 (H)Comment: TESTED AT [address] 70 - 110 mg/[place] [address] Specimen Performing Laboratory Blood [address] [address] ECG 12 lead (09/01/2017 6:18 PM) Specimen Performing Laboratory GE MUSE Narrative Ventricular Rate 77 BPM Atrial Rate 77 BPM P-R Interval 162 ms QRS Duration 98 ms Q-T Interval 404 ms QTC Calculation(Bazett) 457 ms P [place] -8 degrees R [place] 30 degrees T [place] -1 degrees Normal sinus rhythm RSR' or QR pattern in V1 suggests right ventricular conduction delay Cannot rule out Anterior infarct , age undetermined Abnormal ECG No previous ECGs available Confirmed by MD [place] ([id number]) on 09/02/2017 2:25:25 PM Procedure Note Interface, External Ris In - 09/02/2017 2:25 PM CDT Ventricular Rate 77 BPM Atrial Rate 77 BPM P-R Interval 162 ms QRS Duration 98 ms Q-T Interval 404 ms QTC Calculation(Bazett) 457 ms P [place] -8 degrees R [place] 30 degrees T [place] -1 degrees Normal sinus rhythm RSR' or QR pattern in V1 suggests right ventricular conduction delay Cannot rule out Anterior infarct , age undetermined Abnormal ECG No previous ECGs available Confirmed by MD [place] ([id number]) on 09/02/2017 2:25:25 PM US abdomen limited (09/01/2017 5:23 AM) Specimen Performing Laboratory GE RIS Narrative FINAL REPORT INDICATION: 37-year-old male with abdominal pain and history of cholelithiasis. TECHNIQUE: Abdominal ultrasound limited (right upper quadrant). COMPARISON: None. FINDINGS: Pancreas, to the extent visualized, is normal. Proximal, mid, and distal abdominal aorta are visualized and unremarkable. IVC unremarkable. Liver is normal in echogenicity, contour, and size. No suspicious liver lesion or masses identified. Main portal vein is normal in diameter measuring 0.8 cm. Gallbladder is mildly distended with a transverse diameter of 2.9 cm. No gallbladder wall thickening, pericholecystic fluid, or gallstones demonstrated. Common bile duct is normal diameter measuring 0.5 cm. Right kidney is normal in size measuring 10.6 x 5.5 x 4.8 cm. Cortical thickness in the right kidney appears normal. No right hydronephrosis or renal mass demonstrated. IMPRESSION: Normal abdominal ultrasound limited exam (no cholelithiasis). Signed: Himanshu Nelson MD Report Verified Date/Time:09/01/2017 09:53:12 Reading Location: [address] Ultrasound Reading Room Procedure Note Interface, External Ris In - 09/01/2017 9:55 AM CDT FINAL REPORT INDICATION: 37-year-old male with abdominal pain and history of cholelithiasis. TECHNIQUE: Abdominal ultrasound limited (right upper quadrant). COMPARISON: None. FINDINGS: Pancreas, to the extent visualized, is normal. Proximal, mid, and distal abdominal aorta are visualized and unremarkable. IVC unremarkable. Liver is normal in echogenicity, contour, and size. No suspicious liver lesion or masses identified. Main portal vein is normal in diameter measuring 0.8 cm. Gallbladder is mildly distended with a transverse diameter of 2.9 cm. No gallbladder wall thickening, pericholecystic fluid, or gallstones demonstrated. Common bile duct is normal diameter measuring 0.5 cm. Right kidney is normal in size measuring 10.6 x 5.5 x 4.8 cm. Cortical thickness in the right kidney appears normal. No right hydronephrosis or renal mass demonstrated. IMPRESSION: Normal abdominal ultrasound limited exam (no cholelithiasis). Signed: Himanshu Nelson MD Report Verified Date/Time: 09/01/2017 09:53:12 Reading Location: [address] Ultrasound Reading Room /Free T4 If Indicated (09/01/2017 3:12 AM) Component Value Ref Range TSH 0.36 0.35 - 4.94 uIU/mL Specimen Performing Laboratory Blood - Arm, [address] [address] C-Reactive Protein (09/01/2017 3:12 AM) Component Value Ref Range CRP 0.23 0.00 - 0.50 mg/dL Specimen Performing Laboratory Blood - [facility], [address] [address] Troponin I (09/01/2017 3:12 AM) Component Value Ref Range Troponin I <0.01 0.00 - 0.03 ng/mL Specimen Performing Laboratory Blood - [facility], [address] [address] Narrative Troponin I (TnI) levels must be interpreted in the context of the presenting symptoms and the clinical findings. Elevated TnI levels indicate myocardial damage, but are not specific for ischemic heart disease. Elevated TnI levels are seen in patients with other cardiac conditions (including myocarditis and congestive heart failure), and slight TnI elevations occur in patients with other conditions, including sepsis, renal failure, acidosis, acute neurological disease, and persistent tachyarrhythmia. Sedimentation rate (09/01/2017 3:12 AM) Component Value Ref Range Sed Rate 3 0 - 15 mm/HR Specimen Performing Laboratory Blood - [facility], [address] [address] Hemoglobin A1c (09/01/2017 3:12 AM) Component Value Ref Range Hemoglobin A1C 4.7 4.3 - 6.1 % Specimen Performing Laboratory [facility] - [facility], [address] [address] Creatine Kinase (CK), Total and MB (09/01/2017 3:12 AM) Component Value Ref Range Total CK 29 29 - 200 U/L CK-MB 0.4 0.0 - 6.6 ng/mL MB Relative Index 1.4 % Specimen Performing Laboratory Blood - Arm, [address] [address] Narrative CK-MB Reference Range: <6.7Normal 6.7-10.0Borderline >10.0 Abnormal Amylase (09/01/2017 3:12 AM) Component Value Ref Range Amylase 383 (H) 25 - 125 U/L Specimen Performing Laboratory Blood - Arm, [address] [address] Lipid panel (09/01/2017 3:12 AM)Only the most recent of2 resultswithin the time period is included. Component Value Ref Range Triglycerides 76 mg/dL Cholesterol 118 mg/dL HDL 37 mg/dL LDL Calculated 66 mg/dL Specimen Performing Laboratory Blood - Arm, [address] [address] Narrative Triglyceride Reference Range: Low Risk <150 [id number] High Risk 200-499 Very High Risk>=500 Cholesterol Reference Range: Low Risk <200 [id number] High Risk>240 HDL Cholesterol Reference Range: Low Risk >=60 High Risk <40 LDL Cholesterol Reference Range: Optimal<100 Near Ulmnpev545-354 Ortfldjbkf484-327 Bndu324-354 Very High >=190 Blood culture (09/01/2017 3:11 AM)Only the most recent of2 resultswithin the time period is included. Component Value Ref Range Result No growth in 5 days Specimen Performing Laboratory Blood - Arm, Right [address] [address] EKG-SCANNED (05/22/2017 12:43 PM)Comprehensive metabolic panel (05/19/2017 [...] FOR DIALYSIS PATIENTS. Specimen Performing Laboratory Blood [address] [address] CBC (Hemogram only) (05/17/2017 4:26 AM)Only the [...] Specimen Performing Laboratory Blood - Arm, Right [address] [address] MR abdomen without IV contrast MRCP (03/13/2017 11:33 AM) Specimen Performing Laboratory Explore Engage Narrative FINAL REPORT MRI of the abdomen, [...] MD Report Verified Date/Time:03/13/2017 12:25:41 Reading Location: [address] Consult Reading Room Procedure Note Interface, External Ris In - 03/13/2017 12:27 PM [employer] FINAL REPORT MRI of the abdomen, MRCP. [...] Report Verified Date/Time: 03/13/2017 12:25:41 Reading Location: [facility] C0X Ortho Consult Reading Room Manual Differential (03/11/2017 5:44 AM)Only the most recent of2 resultswithin the time period is included. Component Value Ref Range Total Counted WBC Morphology Normal Platelet Morphology Normal RBC Morphology Normal Specimen Performing Laboratory Blood - Line, Venous [address] [address] Prothrombin time/INR (03/09/2017 9:54 AM) Component Value Ref Range Protime 14.3 11.7 - 14.7 seconds INR 1.1 <=5.9 Specimen Performing Laboratory Blood [address] [address] Narrative RECOMMENDED COUMADIN/WARFARIN INR THERAPY RANGES STANDARD DOSE: 2.0 - 3.0 Includes: PROPHYLAXIS for venous thrombosis, systemic embolization; TREATMENT for venous thrombosis and/or pulmonary embolus. HIGH RISK: Target INR is 2.5-3.5 for patients with mechanical heart valves. Triglycerides (03/09/2017 9:54 AM) Component Value Ref Range Triglycerides 58 mg/dL Specimen Performing Laboratory Blood [facility] [address] [place] [address] Narrative TRIGLYCERIDE REFERENCE RANGE Low Risk<150 Borderline Risk 150-199 High [id number] Very High Risk >=500 after 09/12/2016
--- OUTSIDE RECORDS SUMMARY | 2017-09-13 15:05 | XMS REPORT ---
[...] End Status Dosage System Date Date Apixaban [facility] [address]-75 2.5 MG Orally Active not defined Tramadol HCl [facility] [id number] 50 MG Orally Active 1 tablet every 6 hrs as needed Results No Known Results Summary Purpose eClinicalWorks Submission
--- OUTSIDE RECORDS SUMMARY | 2017-09-13 15:05 | XMS REPORT ---
:1980 [facility] Address [address] [place] [address] Dr. Rebollar [address] [place] [id number] Care Team Providers Name Role Phone SEEMA SPANN Unavailable Unavailable LIZ, LILIA Unavailable Unavailable MELISSA, CHIMKAMA CARL Unavailable Unavailable Problems This patient has no known problems. Allergies, Adverse Reactions, Alerts This patient has no known allergies or adverse reactions. Medications This patient has no known medications. Results Test Description Test Time Test Comments Text Results Atomic Results Result Comments FINE NEEDLE ASPIRATION 2017-09-11 13:21:00 Medical Cytology Report BY CLINICIAN Case: [id number] Authorizing Provider: Bessy Hernandez MD Collected: 09/08/2017 1743 Ordering Location: [address] Received: 09/08/2017 1814 Service Pathologist: Mir Anthony MD Specimen: Pancreas PANCREAS HEAD CYSTIC LESION FNA BY CLINICIAN (CYTOSPINS AND CELL BLOCK OF ASPIRATE): - NO MALIGNANT CELLS IDENTIFIED - The mucin stain shows focal weak staining Signing Pathologist Direct Phone Line: [phone] signed by Mir Anthony MD on 09/11/2017 at 1:21 PMThe cell block shows non-inflammed pancreatic acinar tissue.58816, 11465, 27153(4.9 X 4.8 cm) Cystic lesion in the pancreatic headPANCREAS HEAD CYSTIC LESION FNA25 mls in cytorich red; 4 cytospins, 1 mucin stain, cell blockCollected: [id number]: [id number], Department of Pathology, [address] [place] [id number], [facility] of [facility], [address] [place] [id number], APTT 2017-09-09 10:07:00 Test Item Value Reference Range Comments PARTIAL THROMBOPLASTIN TIME (BEAKER) (test nosl=171) 44.5 seconds 22.5-36.0 BASIC METABOLIC [id number] 05:56:00 Test Item Value Reference Range Comments SODIUM (BEAKER) (test 138 meq/L 136-145 ocml=584) POTASSIUM (BEAKER) (test 3.7 meq/L 3.5-5.1 eiex=296) CHLORIDE (BEAKER) (test 105 meq/L 98-107 qcqi=634) CO2 (BEAKER) (test 25 meq/L 22-29 hjjo=524) BLOOD UREA NITROGEN 7 mg/dL 7-21 (BEAKER) (test kvjo=589) CREATININE (BEAKER) (test 0.62 mg/dL 0.57-1.25 aoom=058) GLUCOSE RANDOM (BEAKER) 120 mg/dL 70-105 (test duou=501) CALCIUM (BEAKER) (test 8.7 mg/dL 8.4-10.2 oafx=746) EGFR (BEAKER) (test 145 mL/min/1.73 sq m ESTIMATED GFR IS NOT eygr=6351) ACCURATE CREATININE CLEARANCE IN PREDICTING GLOMERULAR FILTRATION RATE. ESTIMATED GFR IS NOT APPLICABLE FOR DIALYSIS PATIENTS. CBC W/PLT COUNT & AUTO [id number] 05:42:00 Test Item Value Reference Range Comments WHITE BLOOD CELL COUNT (BEAKER) (test stit=299) 4.6 K/ L 3.5-10.5 RED BLOOD CELL COUNT (BEAKER) (test xxlp=621) 3.83 M/ L 4.63-6.08 HEMOGLOBIN (BEAKER) (test ajeu=870) 11.7 GM/DL 13.7-17.5 HEMATOCRIT (BEAKER) (test qzqo=400) 34.7 % 40.1-51.0 MEAN CORPUSCULAR VOLUME (BEAKER) (test lmzl=494) 90.6 fL 79.0-92.2 MEAN CORPUSCULAR HEMOGLOBIN (BEAKER) (test 30.5 pg 25.7-32.2 adgm=655) MEAN CORPUSCULAR HEMOGLOBIN CONC (BEAKER) (test 33.7 GM/DL 32.3-36.5 mwyw=436) RED CELL DISTRIBUTION WIDTH (BEAKER) (test 14.3 % 11.6-14.4 kyfk=054) PLATELET COUNT (BEAKER) (test xegj=921) 378 K/CU MM 150-450 MEAN PLATELET VOLUME (BEAKER) (test cael=690) 9.0 fL 9.4-12.4 NUCLEATED RED BLOOD CELLS (BEAKER) (test 0 /100 WBC 0-0 coli=428) NEUTROPHILS RELATIVE PERCENT (BEAKER) (test 39 % mlrp=170) LYMPHOCYTES RELATIVE PERCENT (BEAKER) (test 43 % bqnt=385) MONOCYTES RELATIVE PERCENT (BEAKER) (test 12 % jjbs=527) EOSINOPHILS RELATIVE PERCENT (BEAKER) (test 5 % epid=099) BASOPHILS RELATIVE PERCENT (BEAKER) (test 1 % qlqa=080) NEUTROPHILS ABSOLUTE COUNT (BEAKER) (test 1.81 K/ L 1.78-5.38 msbg=066) LYMPHOCYTES ABSOLUTE COUNT (BEAKER) (test 2.01 K/ L 1.32-3.57 mnhg=699) MONOCYTES ABSOLUTE COUNT (BEAKER) (test 0.55 K/ L 0.30-0.82 pawo=643) EOSINOPHILS ABSOLUTE COUNT (BEAKER) (test 0.21 K/ L 0.04-0.54 mwtr=636) BASOPHILS ABSOLUTE COUNT (BEAKER) (test 0.05 K/ L 0.01-0.08 nmmm=587) IMMATURE GRANULOCYTES-RELATIVE PERCENT (BEAKER) 0 % 0-1 (test vbrh=7470) FINE NEEDLE ASPIRATE (FNA) [id number] 20:00:00 Test Item Value Reference Range Comments CYTOLOGY RESULT POINTER (BEAKER) (test See Separate Report dpml=6623) [id number] 12:16:00 Test Item Value Reference Range Comments PARTIAL THROMBOPLASTIN TIME (BEAKER) (test 84.6 seconds 22.5-36.0 aozp=516) BASIC METABOLIC [id number] 05:21:00 Test Item Value Reference Range Comments SODIUM (BEAKER) (test 126 meq/L 136-145 hqrv=877) POTASSIUM (BEAKER) (test 2.8 meq/L 3.5-5.1 pzpg=328) CHLORIDE (BEAKER) (test 99 meq/L 98-107 aiqv=958) CO2 (BEAKER) (test 20 meq/L 22-29 kptf=601) BLOOD UREA NITROGEN 3 mg/dL 7-21 (BEAKER) (test qlvp=096) CREATININE (BEAKER) (test 0.44 mg/dL 0.57-1.25 jmet=185) GLUCOSE RANDOM (BEAKER) 75 mg/dL 70-105 (test dwvl=172) CALCIUM (BEAKER) (test 6.8 mg/dL 8.4-10.2 gzud=774) EGFR (BEAKER) (test 216 mL/min/1.73 sq m ESTIMATED GFR IS NOT ynxd=3366) ACCURATE CREATININE CLEARANCE IN PREDICTING GLOMERULAR FILTRATION RATE. ESTIMATED GFR IS NOT APPLICABLE FOR DIALYSIS PATIENTS. [id number] 05:13:00 Test Item Value Reference Range Comments PARTIAL THROMBOPLASTIN TIME (BEAKER) (test 110.2 seconds 22.5-36.0 uudu=509) CBC W/PLT COUNT & AUTO [id number] 04:45:00 Test Item Value Reference Range Comments WHITE BLOOD CELL COUNT (BEAKER) (test wuax=884) 4.4 K/ L 3.5-10.5 RED BLOOD CELL COUNT (BEAKER) (test cass=271) 3.25 M/ L 4.63-6.08 HEMOGLOBIN (BEAKER) (test qrxh=520) 10.1 GM/DL 13.7-17.5 HEMATOCRIT (BEAKER) (test xnng=267) 29.9 % 40.1-51.0 MEAN CORPUSCULAR VOLUME (BEAKER) (test nijs=776) 92.0 fL 79.0-92.2 MEAN CORPUSCULAR HEMOGLOBIN (BEAKER) (test 31.1 pg 25.7-32.2 gktx=293) MEAN CORPUSCULAR HEMOGLOBIN CONC (BEAKER) (test 33.8 GM/DL 32.3-36.5 qfgg=835) RED CELL DISTRIBUTION WIDTH (BEAKER) (test 14.5 % 11.6-14.4 tvvp=631) PLATELET COUNT (BEAKER) (test dckx=106) 297 K/CU MM 150-450 MEAN PLATELET VOLUME (BEAKER) (test tmbs=283) 9.1 fL 9.4-12.4 NUCLEATED RED BLOOD CELLS (BEAKER) (test 0 /100 WBC 0-0 ejif=490) NEUTROPHILS RELATIVE PERCENT (BEAKER) (test 44 % ufrb=945) LYMPHOCYTES RELATIVE PERCENT (BEAKER) (test 40 % xymg=534) MONOCYTES RELATIVE PERCENT (BEAKER) (test 11 % cszm=795) EOSINOPHILS RELATIVE PERCENT (BEAKER) (test 4 % arco=952) BASOPHILS RELATIVE PERCENT (BEAKER) (test 1 % baou=063) NEUTROPHILS ABSOLUTE COUNT (BEAKER) (test 1.96 K/ L 1.78-5.38 xusx=301) LYMPHOCYTES ABSOLUTE COUNT (BEAKER) (test 1.77 K/ L 1.32-3.57 fhfr=964) MONOCYTES ABSOLUTE COUNT (BEAKER) (test 0.49 K/ L 0.30-0.82 wvjk=163) EOSINOPHILS ABSOLUTE COUNT (BEAKER) (test 0.16 K/ L 0.04-0.54 lasn=198) BASOPHILS ABSOLUTE COUNT (BEAKER) (test 0.05 K/ L 0.01-0.08 iogm=115) IMMATURE GRANULOCYTES-RELATIVE PERCENT (BEAKER) 0 % 0-1 (test hwku=3416) [id number] 21:32:00 Test Item Value Reference Range Comments PARTIAL THROMBOPLASTIN TIME (BEAKER) (test 118.1 seconds 22.5-36.0 xtaz=849) BASIC METABOLIC [id number] 14:23:00 Test Item Value Reference Range Comments SODIUM (BEAKER) (test 139 meq/L 136-145 omay=267) POTASSIUM (BEAKER) (test 3.6 meq/L 3.5-5.1 qmzj=981) CHLORIDE (BEAKER) (test 103 meq/L 98-107 kbml=673) CO2 (BEAKER) (test 29 meq/L 22-29 huvj=888) BLOOD UREA NITROGEN 3 mg/dL 7-21 (BEAKER) (test whbj=538) CREATININE (BEAKER) (test 0.54 mg/dL 0.57-1.25 nrhj=577) GLUCOSE RANDOM (BEAKER) 108 mg/dL 70-105 (test htex=124) CALCIUM (BEAKER) (test 8.6 mg/dL 8.4-10.2 cknr=206) EGFR (BEAKER) (test 170 mL/min/1.73 sq m ESTIMATED GFR IS NOT gnwy=5320) ACCURATE CREATININE CLEARANCE IN PREDICTING GLOMERULAR FILTRATION RATE. ESTIMATED GFR IS NOT APPLICABLE FOR DIALYSIS PATIENTS. [id number] 14:06:00 Test Item Value Reference Range Comments PARTIAL THROMBOPLASTIN TIME (BEAKER) (test 66.8 seconds 22.5-36.0 rsgt=513) CBC W/PLT COUNT & AUTO [id number] 13:57:00 Test Item Value Reference Range Comments WHITE BLOOD CELL COUNT (BEAKER) (test bcok=908) 4.6 K/ L 3.5-10.5 RED BLOOD CELL COUNT (BEAKER) (test toqd=271) 3.95 M/ L 4.63-6.08 HEMOGLOBIN (BEAKER) (test vqso=064) 11.9 GM/DL 13.7-17.5 HEMATOCRIT (BEAKER) (test nyvn=821) 36.5 % 40.1-51.0 MEAN CORPUSCULAR VOLUME (BEAKER) (test mxkj=165) 92.4 fL 79.0-92.2 MEAN CORPUSCULAR HEMOGLOBIN (BEAKER) (test 30.1 pg 25.7-32.2 citx=075) MEAN CORPUSCULAR HEMOGLOBIN CONC (BEAKER) (test 32.6 GM/DL 32.3-36.5 wjpz=928) RED CELL DISTRIBUTION WIDTH (BEAKER) (test 14.2 % 11.6-14.4 kvae=468) PLATELET COUNT (BEAKER) (test icri=194) 347 K/CU MM 150-450 MEAN PLATELET VOLUME (BEAKER) (test xiwr=814) 9.2 fL 9.4-12.4 NUCLEATED RED BLOOD CELLS (BEAKER) (test 0 /100 WBC 0-0 oyok=465) NEUTROPHILS RELATIVE PERCENT (BEAKER) (test 44 % baqp=671) LYMPHOCYTES RELATIVE PERCENT (BEAKER) (test 37 % npsl=028) MONOCYTES RELATIVE PERCENT (BEAKER) (test 13 % rrzs=112) EOSINOPHILS RELATIVE PERCENT (BEAKER) (test 5 % djtq=774) BASOPHILS RELATIVE PERCENT (BEAKER) (test 1 % gedn=204) NEUTROPHILS ABSOLUTE COUNT (BEAKER) (test 1.99 K/ L 1.78-5.38 mtnw=843) LYMPHOCYTES ABSOLUTE COUNT (BEAKER) (test 1.69 K/ L 1.32-3.57 brfc=681) MONOCYTES ABSOLUTE COUNT (BEAKER) (test 0.61 K/ L 0.30-0.82 tgzs=193) EOSINOPHILS ABSOLUTE COUNT (BEAKER) (test 0.21 K/ L 0.04-0.54 rxyc=120) BASOPHILS ABSOLUTE COUNT (BEAKER) (test 0.05 K/ L 0.01-0.08 pfgp=428) IMMATURE GRANULOCYTES-RELATIVE PERCENT (BEAKER) 0 % 0-1 (test mfqk=8668) BASIC METABOLIC [id number] 07:03:00 Test Item Value Reference Range Comments SODIUM (BEAKER) (test 140 meq/L 136-145 revs=199) POTASSIUM (BEAKER) (test 3.4 meq/L 3.5-5.1 iqav=906) CHLORIDE (BEAKER) (test 100 meq/L 98-107 wsxc=459) CO2 (BEAKER) (test 30 meq/L 22-29 rdax=032) BLOOD UREA NITROGEN 3 mg/dL 7-21 (BEAKER) (test rahb=647) CREATININE (BEAKER) (test 0.56 mg/dL 0.57-1.25 emrq=543) GLUCOSE RANDOM (BEAKER) 102 mg/dL 70-105 (test ccdl=075) CALCIUM (BEAKER) (test 9.2 mg/dL 8.4-10.2 fhrm=119) EGFR (BEAKER) (test 163 mL/min/1.73 sq m ESTIMATED GFR IS NOT etjs=7139) ACCURATE CREATININE CLEARANCE IN PREDICTING GLOMERULAR FILTRATION RATE. ESTIMATED GFR IS NOT APPLICABLE FOR DIALYSIS PATIENTS. [id number] 06:47:00 Test Item Value Reference Range Comments PARTIAL THROMBOPLASTIN TIME (BEAKER) (test 46.7 seconds 22.5-36.0 hvgp=559) [id number] 00:50:00 Test Item Value Reference Range Comments PARTIAL THROMBOPLASTIN TIME (BEAKER) (test 53.5 seconds 22.5-36.0 mbsd=900) [id number] 17:34:00 Test Item Value Reference Range Comments PARTIAL THROMBOPLASTIN TIME (BEAKER) (test 45.8 seconds 22.5-36.0 behf=565) [id number] 08:32:00 Test Item Value Reference Range Comments PARTIAL THROMBOPLASTIN TIME (BEAKER) (test 38.7 seconds 22.5-36.0 oquw=543) Prior to initiating heparinBASIC METABOLIC [id number] 06:05:00 Test Item Value Reference Range Comments SODIUM (BEAKER) (test 136 meq/L 136-145 ryah=303) POTASSIUM (BEAKER) (test 3.3 meq/L 3.5-5.1 ones=181) CHLORIDE (BEAKER) (test 102 meq/L 98-107 pfpz=238) CO2 (BEAKER) (test 26 meq/L 22-29 nahq=139) BLOOD UREA NITROGEN 2 mg/dL 7-21 (BEAKER) (test hmke=759) CREATININE (BEAKER) (test 0.55 mg/dL 0.57-1.25 ugos=810) GLUCOSE RANDOM (BEAKER) 124 mg/dL 70-105 (test wckq=229) CALCIUM (BEAKER) (test 8.0 mg/dL 8.4-10.2 cvzm=156) EGFR (BEAKER) (test 167 mL/min/1.73 sq m ESTIMATED GFR IS NOT wbub=7959) ACCURATE CREATININE CLEARANCE IN PREDICTING GLOMERULAR FILTRATION RATE. ESTIMATED GFR IS NOT APPLICABLE FOR DIALYSIS PATIENTS. BLOOD [id number] 06:00:00 Test Item Value Reference Range Comments CULTURE (BEAKER) (test zdkg=3714) No growth in 5 days BLOOD [id number] 06:00:00 Test Item Value Reference Range Comments CULTURE (BEAKER) (test nygh=1278) No growth in 5 days [id number] 03:55:00 Test Item Value Reference Range Comments PHOSPHORUS (BEAKER) (test wiqs=863) 2.8 mg/dL 2.3-4.7 [id number] 03:55:00 Test Item Value Reference Range Comments MAGNESIUM (BEAKER) (test ueph=916) 1.3 mg/dL 1.6-2.6 BASIC METABOLIC [id number] 03:55:00 Test Item Value Reference Range Comments SODIUM (BEAKER) (test 137 meq/L 136-145 goxq=817) POTASSIUM (BEAKER) (test 3.2 meq/L 3.5-5.1 gzij=579) CHLORIDE (BEAKER) (test 103 meq/L 98-107 vqfs=152) CO2 (BEAKER) (test 22 meq/L 22-29 rkih=377) BLOOD UREA NITROGEN 3 mg/dL 7-21 (BEAKER) (test hxwk=849) CREATININE (BEAKER) (test 0.51 mg/dL 0.57-1.25 mymx=773) GLUCOSE RANDOM (BEAKER) 65 mg/dL 70-105 (test kjjp=521) CALCIUM (BEAKER) (test 8.0 mg/dL 8.4-10.2 vxvy=660) EGFR (BEAKER) (test 182 mL/min/1.73 sq m ESTIMATED GFR IS NOT pjlo=1169) ACCURATE CREATININE CLEARANCE IN PREDICTING GLOMERULAR FILTRATION RATE. ESTIMATED GFR IS NOT APPLICABLE FOR DIALYSIS PATIENTS. [id number] 03:55:00 Test Item Value Reference Range Comments LIPASE (BEAKER) (test pctt=467) 210 U/L 8-78 CBC W/PLT COUNT & AUTO [id number] 03:37:00 Test Item Value Reference Range Comments WHITE BLOOD CELL COUNT (BEAKER) (test irkn=889) 6.1 K/ L 3.5-10.5 RED BLOOD CELL COUNT (BEAKER) (test gstj=925) 3.63 M/ L 4.63-6.08 HEMOGLOBIN (BEAKER) (test lall=188) 11.1 GM/DL 13.7-17.5 HEMATOCRIT (BEAKER) (test zxlc=972) 33.0 % 40.1-51.0 MEAN CORPUSCULAR VOLUME (BEAKER) (test pklv=107) 90.9 fL 79.0-92.2 MEAN CORPUSCULAR HEMOGLOBIN (BEAKER) (test 30.6 pg 25.7-32.2 dmxs=014) MEAN CORPUSCULAR HEMOGLOBIN CONC (BEAKER) (test 33.6 GM/DL 32.3-36.5 iyju=730) RED CELL DISTRIBUTION WIDTH (BEAKER) (test 14.3 % 11.6-14.4 vlvv=489) PLATELET COUNT (BEAKER) (test dlom=476) 262 K/CU MM 150-450 MEAN PLATELET VOLUME (BEAKER) (test nwac=838) 9.1 fL 9.4-12.4 NUCLEATED RED BLOOD CELLS (BEAKER) (test 0 /100 WBC 0-0 esea=822) NEUTROPHILS RELATIVE PERCENT (BEAKER) (test 69 % anyn=779) LYMPHOCYTES RELATIVE PERCENT (BEAKER) (test 17 % snaw=441) MONOCYTES RELATIVE PERCENT (BEAKER) (test 10 % muxo=910) EOSINOPHILS RELATIVE PERCENT (BEAKER) (test 3 % fztc=890) BASOPHILS RELATIVE PERCENT (BEAKER) (test 0 % dmpf=962) NEUTROPHILS ABSOLUTE COUNT (BEAKER) (test 4.21 K/ L 1.78-5.38 hqdr=549) LYMPHOCYTES ABSOLUTE COUNT (BEAKER) (test 1.04 K/ L 1.32-3.57 ecwg=972) MONOCYTES ABSOLUTE COUNT (BEAKER) (test 0.60 K/ L 0.30-0.82 ebhk=817) EOSINOPHILS ABSOLUTE COUNT (BEAKER) (test 0.18 K/ L 0.04-0.54 jfsf=401) BASOPHILS ABSOLUTE COUNT (BEAKER) (test 0.02 K/ L 0.01-0.08 ebwq=300) IMMATURE GRANULOCYTES-RELATIVE PERCENT (BEAKER) 1 % 0-1 (test tzbi=7688) CT, ABDOMEN - PELVIS, PANCREAS [id number] 00:22:00Reason for exam:-&gt ;pancreatitisFINAL REPORT CT, ABDOMEN - PELVIS, PANCREAS EVALUATION INDICATION: pancreatitis COMPARISON: Correlation to MRCP February and sonographic examination September 01, 2017 TECHNIQUE:Multiphase pre and postcontrast abdomen and pelvis CT. Coronal and sagittal reformatted images obtained. DOSE REDUCTION: Dose modulation, iterative reconstruction, and/or weight-based adjustment ofthe mA/kV was utilized to reduce the radiation dose to as low as reasonably achievable. FINDINGS: Multilobulated cystic lesion in the region of the pancreatic head with layering debris. Predominant bilobed portion of this structure measures approximately 7.3 x 4.0 cm. Suspected dependent stones noted in the larger compartment, more proximal to the superior mesenteric artery. No aneurysmal dilation isidentified in the adjacent arterial structures. There is no mass effect on the portosplenic confluence. The pancreatic parenchyma at the head is not well characterized. Pancreatic body and tail are unremarkable. Main pancreatic duct is dilated. There is prominence of the common bile duct without frankdilation. No stones are noted within the gallbladder. [...] prominent. No aortic aneurysm is present. There isno significant calcific atherosclerotic disease. Osseous structures are within normal limits. IMPRESSION: Lobulated cystic lesion in the region of the pancreatic head with layering debris. Pseudocyst is favored, superinfection cannot be excluded radiographically. Dilation of the main pancreatic duct.No vascular compromise. Signed: JR Kelly Robert MDReport Verified Date/ Time: 09/04/2017 00:22:52 Reading Location: [address] Reading Room [id number] 06:00:00 Test Item Value Reference Range Comments MAGNESIUM (BEAKER) (test 1.6 mg/dL 1.6-2.6 Specimen slightly hemolyzed dkfi=050) [id number] 06:00:00 Test Item Value Reference Range Comments PHOSPHORUS (BEAKER) (test 3.4 mg/dL 2.3-4.7 Specimen slightly hemolyzed vjpe=692) BASIC METABOLIC [id number] 06:00:00 Test Item Value Reference Range Comments SODIUM (BEAKER) (test 132 meq/L 136-145 nxaq=563) POTASSIUM (BEAKER) (test 3.9 meq/L 3.5-5.1 Specimen slightly otli=068) hemolyzed CHLORIDE (BEAKER) (test 101 meq/L 98-107 gred=400) CO2 (BEAKER) (test 22 meq/L 22-29 vncp=149) BLOOD UREA NITROGEN 7 mg/dL 7-21 (BEAKER) (test sdwl=684) CREATININE (BEAKER) (test 0.49 mg/dL 0.57-1.25 Specimen slightly ucre=828) hemolyzed GLUCOSE RANDOM (BEAKER) 59 mg/dL 70-105 (test qunc=284) CALCIUM (BEAKER) (test 8.1 mg/dL 8.4-10.2 oplt=597) EGFR (BEAKER) (test 190 mL/min/1.73 sq m ESTIMATED GFR IS NOT jrmg=4663) ACCURATE CREATININE CLEARANCE IN PREDICTING GLOMERULAR FILTRATION RATE. ESTIMATED GFR IS NOT APPLICABLE FOR DIALYSIS PATIENTS. HEPATIC FUNCTION [id number] 06:00:00 Test Item Value Reference Range Comments TOTAL PROTEIN (BEAKER) (test 5.7 gm/dL 6.0-8.3 Specimen slightly hemolyzed hswb=581) ALBUMIN (BEAKER) (test 3.0 g/dL 3.5-5.0 Specimen slightly hemolyzed zlln=3787) BILIRUBIN TOTAL (BEAKER) (test 1.2 mg/dL 0.2-1.2 Specimen slightly hemolyzed akjj=995) BILIRUBIN DIRECT (BEAKER) (test 0.4 mg/dL 0.1-0.5 Specimen slightly hemolyzed wdwi=775) ALKALINE PHOSPHATASE (BEAKER) 62 U/L 40-150 (test zdax=765) AST (SGOT) (BEAKER) (test 18 U/L 5-34 Specimen slightly hemolyzed opzu=321) ALT (SGPT) (BEAKER) (test < U/L 6-55 Specimen slightly hemolyzed kpam=467) CBC W/PLT COUNT & AUTO [id number] 05:43:00 Test Item Value Reference Range Comments WHITE BLOOD CELL COUNT (BEAKER) (test djzg=634) 8.4 K/ L 3.5-10.5 RED BLOOD CELL COUNT (BEAKER) (test koys=256) 3.68 M/ L 4.63-6.08 HEMOGLOBIN (BEAKER) (test msws=065) 11.6 GM/DL 13.7-17.5 HEMATOCRIT (BEAKER) (test eoqu=242) 34.4 % 40.1-51.0 MEAN CORPUSCULAR VOLUME (BEAKER) (test fuhi=970) 93.5 fL 79.0-92.2 MEAN CORPUSCULAR HEMOGLOBIN (BEAKER) (test 31.5 pg 25.7-32.2 hnsu=751) MEAN CORPUSCULAR HEMOGLOBIN CONC (BEAKER) (test 33.7 GM/DL 32.3-36.5 pdmx=228) RED CELL DISTRIBUTION WIDTH (BEAKER) (test 14.6 % 11.6-14.4 ykyv=584) PLATELET COUNT (BEAKER) (test tgmq=004) 221 K/CU MM 150-450 MEAN PLATELET VOLUME (BEAKER) (test ecvx=010) 9.5 fL 9.4-12.4 NUCLEATED RED BLOOD CELLS (BEAKER) (test 0 /100 WBC 0-0 ykpp=608) NEUTROPHILS RELATIVE PERCENT (BEAKER) (test 75 % tdse=142) LYMPHOCYTES RELATIVE PERCENT (BEAKER) (test 14 % vuvs=025) MONOCYTES RELATIVE PERCENT (BEAKER) (test 10 % rccv=059) EOSINOPHILS RELATIVE PERCENT (BEAKER) (test 1 % vmcs=979) BASOPHILS RELATIVE PERCENT (BEAKER) (test 0 % apdu=700) NEUTROPHILS ABSOLUTE COUNT (BEAKER) (test 6.27 K/ L 1.78-5.38 fznb=237) LYMPHOCYTES ABSOLUTE COUNT (BEAKER) (test 1.16 K/ L 1.32-3.57 fyly=317) MONOCYTES ABSOLUTE COUNT (BEAKER) (test 0.87 K/ L 0.30-0.82 hago=106) EOSINOPHILS ABSOLUTE COUNT (BEAKER) (test 0.07 K/ L 0.04-0.54 dkap=502) BASOPHILS ABSOLUTE COUNT (BEAKER) (test 0.03 K/ L 0.01-0.08 nhyv=863) IMMATURE GRANULOCYTES-RELATIVE PERCENT (BEAKER) 0 % 0-1 (test ppqu=6323) POCT-GLUCOSE [id number] 07:30:00 Test Item Value Reference Range Comments POC-GLUCOSE METER (BEAKER) 140 mg/dL 70-110 TESTED AT [address] (test dzbo=2970) [place] [id number] POCT-GLUCOSE [id number] 07:30:00 Test Item Value Reference Range Comments POC-GLUCOSE METER (BEAKER) 59 mg/dL 70-110 TESTED AT [address] (test auan=8297) [place] [id number] [id number] 05:16:00 Test Item Value Reference Range Comments MAGNESIUM (BEAKER) (test 1.7 mg/dL 1.6-2.6 Specimen slightly hemolyzed oeku=126) [id number] 05:16:00 Test Item Value Reference Range Comments PHOSPHORUS (BEAKER) (test 3.7 mg/dL 2.3-4.7 Specimen slightly hemolyzed sqvi=917) BASIC METABOLIC [id number] 05:16:00 Test Item Value Reference Range Comments SODIUM (BEAKER) (test 136 meq/L 136-145 rxkt=919) POTASSIUM (BEAKER) (test 4.1 meq/L 3.5-5.1 Specimen slightly exna=468) hemolyzed CHLORIDE (BEAKER) (test 105 meq/L 98-107 zeya=928) CO2 (BEAKER) (test 21 meq/L 22-29 qrcr=872) BLOOD UREA NITROGEN 12 mg/dL 7-21 (BEAKER) (test zppi=838) CREATININE (BEAKER) (test 0.62 mg/dL 0.57-1.25 Specimen slightly uqwz=232) hemolyzed GLUCOSE RANDOM (BEAKER) 65 mg/dL 70-105 (test vvye=025) CALCIUM (BEAKER) (test 8.4 mg/dL 8.4-10.2 qxhi=633) EGFR (BEAKER) (test 145 mL/min/1.73 sq m ESTIMATED GFR IS NOT bwny=3836) ACCURATE CREATININE CLEARANCE IN PREDICTING GLOMERULAR FILTRATION RATE. ESTIMATED GFR IS NOT APPLICABLE FOR DIALYSIS PATIENTS. HEPATIC FUNCTION [id number] 05:16:00 Test Item Value Reference Range Comments TOTAL PROTEIN (BEAKER) (test 5.9 gm/dL 6.0-8.3 Specimen slightly hemolyzed lgyp=554) ALBUMIN (BEAKER) (test 3.3 g/dL 3.5-5.0 Specimen slightly hemolyzed mwoh=2816) BILIRUBIN TOTAL (BEAKER) (test 1.4 mg/dL 0.2-1.2 Specimen slightly hemolyzed tcqz=399) BILIRUBIN DIRECT (BEAKER) (test 0.5 mg/dL 0.1-0.5 Specimen slightly hemolyzed mjta=501) ALKALINE PHOSPHATASE (BEAKER) 66 U/L 40-150 (test dume=292) AST (SGOT) (BEAKER) (test 16 U/L 5-34 Specimen slightly hemolyzed gmfx=536) ALT (SGPT) (BEAKER) (test 6 U/L 6-55 Specimen slightly hemolyzed ylwf=934) CBC W/PLT COUNT & AUTO [id number] 04:45:00 Test Item Value Reference Range Comments WHITE BLOOD CELL COUNT (BEAKER) (test pvci=431) 9.1 K/ L 3.5-10.5 RED BLOOD CELL COUNT (BEAKER) (test lmim=657) 4.04 M/ L 4.63-6.08 HEMOGLOBIN (BEAKER) (test dpbb=361) 12.3 GM/DL 13.7-17.5 HEMATOCRIT (BEAKER) (test oonn=875) 38.1 % 40.1-51.0 MEAN CORPUSCULAR VOLUME (BEAKER) (test zqpw=169) 94.3 fL 79.0-92.2 MEAN CORPUSCULAR HEMOGLOBIN (BEAKER) (test 30.4 pg 25.7-32.2 vzah=081) MEAN CORPUSCULAR HEMOGLOBIN CONC (BEAKER) (test 32.3 GM/DL 32.3-36.5 uhrz=365) RED CELL DISTRIBUTION WIDTH (BEAKER) (test 15.7 % 11.6-14.4 klwh=311) PLATELET COUNT (BEAKER) (test rqfo=678) 243 K/CU MM 150-450 MEAN PLATELET VOLUME (BEAKER) (test vrti=015) 9.5 fL 9.4-12.4 NUCLEATED RED BLOOD CELLS (BEAKER) (test 0 /100 WBC 0-0 uaxi=312) NEUTROPHILS RELATIVE PERCENT (BEAKER) (test 72 % qlqr=397) LYMPHOCYTES RELATIVE PERCENT (BEAKER) (test 16 % ucch=913) MONOCYTES RELATIVE PERCENT (BEAKER) (test 10 % tpfk=098) EOSINOPHILS RELATIVE PERCENT (BEAKER) (test 1 % qoks=550) BASOPHILS RELATIVE PERCENT (BEAKER) (test 0 % tsxo=485) NEUTROPHILS ABSOLUTE COUNT (BEAKER) (test 6.58 K/ L 1.78-5.38 gkoy=960) LYMPHOCYTES ABSOLUTE COUNT (BEAKER) (test 1.48 K/ L 1.32-3.57 srny=017) MONOCYTES ABSOLUTE COUNT (BEAKER) (test 0.95 K/ L 0.30-0.82 iwic=837) EOSINOPHILS ABSOLUTE COUNT (BEAKER) (test 0.05 K/ L 0.04-0.54 ytwx=100) BASOPHILS ABSOLUTE COUNT (BEAKER) (test 0.04 K/ L 0.01-0.08 kdfm=005) IMMATURE GRANULOCYTES-RELATIVE PERCENT (BEAKER) 0 % 0-1 (test jvpl=5759) HEMOGLOBIN [id number] 10:23:00 Test Item Value Reference Range Comments HEMOGLOBIN A1C (BEAKER) (test acdm=105) 4.7 % 4.3-6.1 U/S, ABDOMINAL, [id number] 09:53:00Abdomen limited area? Add comment if clarification is needed.->Gall BladderReason for exam:->h/o cholelithiasis.FINAL REPORT INDICATION: 37-year-old male with abdominal pain and history of cholelithiasis. TECHNIQUE: Abdominal ultrasound limited (right upper quadrant). COMPARISON: None. FINDINGS:Pancreas, to the extent visualized, is normal. Proximal, mid, and distal abdominal aorta are visualized and unremarkable. IVC unremarkable. Liver is normal in echogenicity, contour, and size. No suspicious liver lesion or masses identified. Main portal vein is normal in diameter measuring 0.8 cm.Gallbladder is mildly distended with a transverse diameter [...] abdominal ultrasound limited exam (no cholelithiasis). Signed: [facility] Verified Date/Time:09/01/2017 09:53:12 Reading Location: [address] Ultrasound Reading Room SEDIMENTATION [id number] 08:01:00 Test Item Value Reference Range Comments SEDIMENTATION RATE, ERYTHROCYTE (BEAKER) (test 3 mm/HR 0-15 pmyi=530) TSH/FREE T4 IF [id number] 04:12:00 Test Item Value Reference Range Comments THYROID STIMULATING HORMONE (BEAKER) (test 0.36 uIU/mL 0.35-4.94 echn=191) CREATINE KINASE (CK), TOTAL AND [id number] 04:03:00 Test Item Value Reference Range Comments CREATINE KINASE TOTAL (BEAKER) (test cabv=579) 29 U/L 29-200 CREATINE KINASE-MB (BEAKER) (test euwt=922) 0.4 ng/mL 0.0-6.6 CREATINE KINASE-MB INDEX (BEAKER) (test klxw=576) 1.4 % CK-MB Reference Range:<6.7 Normal6.7-10.0 Borderline>10.0 AbnormalTROPONIN [id number] 04:03:00 Test Item Value Reference Range Comments TROPONIN I (BEAKER) (test iced=880) < ng/mL 0.00-0.03 Troponin I (TnI) levels must be interpreted [...] failure, acidosis, acute neurological disease, and persistent tachyarrhythmia.[id number] 03:53:00 Test Item Value Reference Range Comments PHOSPHORUS (BEAKER) (test apro=145) 3.5 mg/dL 2.3-4.7 [id number] 03:53:00 Test Item Value Reference Range Comments MAGNESIUM (BEAKER) (test zxkp=931) 1.7 mg/dL 1.6-2.6 BASIC METABOLIC [id number] 03:53:00 Test Item Value Reference Range Comments SODIUM (BEAKER) (test 137 meq/L 136-145 xkcg=776) POTASSIUM (BEAKER) (test 3.8 meq/L 3.5-5.1 dbpv=613) CHLORIDE (BEAKER) (test 105 meq/L 98-107 ruqc=906) CO2 (BEAKER) (test 23 meq/L 22-29 yvdw=730) BLOOD UREA NITROGEN 7 mg/dL 7-21 (BEAKER) (test lirh=932) CREATININE (BEAKER) (test 0.62 mg/dL 0.57-1.25 vmba=814) GLUCOSE RANDOM (BEAKER) 102 mg/dL 70-105 (test uqun=700) CALCIUM (BEAKER) (test 9.0 mg/dL 8.4-10.2 kipq=587) EGFR (BEAKER) (test 145 mL/min/1.73 sq m ESTIMATED GFR IS NOT mgjh=9508) ACCURATE CREATININE CLEARANCE IN PREDICTING GLOMERULAR FILTRATION RATE. ESTIMATED GFR IS NOT APPLICABLE FOR DIALYSIS PATIENTS. LIPID [id number] 03:53:00 Test Item Value Reference Range Comments TRIGLYCERIDES (BEAKER) (test kszh=503) 76 mg/dL CHOLESTEROL (BEAKER) (test uplx=099) 118 mg/dL HDL CHOLESTEROL (BEAKER) (test mvlk=738) 37 mg/dL LDL CHOLESTEROL CALCULATED (BEAKER) (test 66 mg/dL dqmd=412) Triglyceride Reference Range: Low Risk <150 Borderline 150- 199 High Risk 200-499 Very High Risk >=500Cholesterol Reference Range: Low Risk <200 Borderline 200-239 High Risk > 240HDL Cholesterol Reference Range: Low Risk >=60 High Risk <40LDL Cholesterol Reference Range: Optimal <100 Near Optimal 100-129 Borderline 130-159 High 160-189 Very High >=190HEPATIC FUNCTION [id number] 03:53:00 Test Item Value Reference Range Comments TOTAL PROTEIN (BEAKER) (test jfrm=466) 6.8 gm/dL 6.0-8.3 ALBUMIN (BEAKER) (test ydev=8748) 3.9 g/dL 3.5-5.0 BILIRUBIN TOTAL (BEAKER) (test xqig=632) 1.2 mg/dL 0.2-1.2 BILIRUBIN DIRECT (BEAKER) (test fjgj=685) 0.5 mg/dL 0.1-0.5 ALKALINE PHOSPHATASE (BEAKER) (test kmmb=788) 81 U/L 40-150 AST (SGOT) (BEAKER) (test jtvd=493) 13 U/L 5-34 ALT (SGPT) (BEAKER) (test jwam=739) 6 U/L 6-55 [id number] 03:53:00 Test Item Value Reference Range Comments AMYLASE (BEAKER) (test lyex=361) 383 U/L 25-125 [id number] 03:53:00 Test Item Value Reference Range Comments LIPASE (BEAKER) (test hjxv=731) 266 U/L 8-78 C-REACTIVE [id number] 03:53:00 Test Item Value Reference Range Comments C-REACTIVE PROTEIN (BEAKER) (test ukrf=027) 0.23 mg/dL 0.00-0.50 CBC W/PLT COUNT & AUTO [id number] 03:38:00 Test Item Value Reference Range Comments WHITE BLOOD CELL COUNT (BEAKER) (test pcuh=385) 10.7 K/ L 3.5-10.5 RED BLOOD CELL COUNT (BEAKER) (test meaz=987) 4.45 M/ L 4.63-6.08 HEMOGLOBIN (BEAKER) (test lytw=325) 13.6 GM/DL 13.7-17.5 HEMATOCRIT (BEAKER) (test seva=710) 40.4 % 40.1-51.0 MEAN CORPUSCULAR VOLUME (BEAKER) (test ocee=260) 90.8 fL 79.0-92.2 MEAN CORPUSCULAR HEMOGLOBIN (BEAKER) (test 30.6 pg 25.7-32.2 xfej=720) MEAN CORPUSCULAR HEMOGLOBIN CONC (BEAKER) (test 33.7 GM/DL 32.3-36.5 bcxs=120) RED CELL DISTRIBUTION WIDTH (BEAKER) (test 15.5 % 11.6-14.4 izsw=884) PLATELET COUNT (BEAKER) (test lxvx=339) 277 K/CU MM 150-450 MEAN PLATELET VOLUME (BEAKER) (test kpyg=613) 9.7 fL 9.4-12.4 NUCLEATED RED BLOOD CELLS (BEAKER) (test 0 /100 WBC 0-0 aytk=104) NEUTROPHILS RELATIVE PERCENT (BEAKER) (test 70 % lvzb=485) LYMPHOCYTES RELATIVE PERCENT (BEAKER) (test 18 % damj=256) MONOCYTES RELATIVE PERCENT (BEAKER) (test 11 % fblo=800) EOSINOPHILS RELATIVE PERCENT (BEAKER) (test 0 % ihrd=654) BASOPHILS RELATIVE PERCENT (BEAKER) (test 0 % qqki=515) NEUTROPHILS ABSOLUTE COUNT (BEAKER) (test 7.46 K/ L 1.78-5.38 clwo=549) LYMPHOCYTES ABSOLUTE COUNT (BEAKER) (test 1.93 K/ L 1.32-3.57 jsyh=763) MONOCYTES ABSOLUTE COUNT (BEAKER) (test 1.17 K/ L 0.30-0.82 guda=420) EOSINOPHILS ABSOLUTE COUNT (BEAKER) (test 0.02 K/ L 0.04-0.54 vjeh=644) BASOPHILS ABSOLUTE COUNT (BEAKER) (test 0.03 K/ L 0.01-0.08 gntb=404) IMMATURE GRANULOCYTES-RELATIVE PERCENT (BEAKER) 0 % 0-1 (test poms=0514) COMPREHENSIVE METABOLIC [id number] 14:02:00 Test Item Value Reference Range Comments TOTAL PROTEIN (BEAKER) 7.8 gm/dL 6.0-8.3 (test jkfo=944) ALBUMIN (BEAKER) (test 3.9 g/dL 3.5-5.0 jdoq=5195) ALKALINE PHOSPHATASE 62 U/L 40-150 (BEAKER) (test uqgz=810) BILIRUBIN TOTAL (BEAKER) 0.3 mg/dL 0.2-1.2 (test hfyd=280) SODIUM (BEAKER) (test 139 meq/L 136-145 iskm=826) POTASSIUM (BEAKER) (test 4.2 meq/L 3.5-5.1 uvkz=410) CHLORIDE (BEAKER) (test 104 meq/L 98-107 rhap=965) CO2 (BEAKER) (test 26 meq/L 22-29 zwef=637) BLOOD UREA NITROGEN 9 mg/dL 7-21 (BEAKER) (test teop=705) CREATININE (BEAKER) (test 0.64 mg/dL 0.57-1.25 zifa=510) GLUCOSE RANDOM (BEAKER) 78 mg/dL 70-105 (test jfkt=549) CALCIUM (BEAKER) (test 9.5 mg/dL 8.4-10.2 otem=882) AST (SGOT) (BEAKER) (test 18 U/L 5-34 onaw=754) ALT (SGPT) (BEAKER) (test 8 U/L 6-55 cdum=874) EGFR (BEAKER) (test 141 mL/min/1.73 sq ESTIMATED GFR IS NOT kzbf=4050) m ACCURATE CREATININE CLEARANCE IN PREDICTING GLOMERULAR FILTRATION RATE. ESTIMATED GFR IS NOT APPLICABLE FOR DIALYSIS PATIENTS. COMPREHENSIVE METABOLIC [id number] 06:08:00 Test Item Value Reference Range Comments TOTAL PROTEIN (BEAKER) 7.0 gm/dL 6.0-8.3 Specimen slightly (test tgza=360) hemolyzed ALBUMIN (BEAKER) (test 3.4 g/dL 3.5-5.0 Specimen slightly yuxd=4995) hemolyzed ALKALINE PHOSPHATASE 58 U/L 40-150 (BEAKER) (test euog=262) BILIRUBIN TOTAL (BEAKER) 0.4 mg/dL 0.2-1.2 Specimen slightly (test tswj=511) hemolyzed SODIUM (BEAKER) (test 139 meq/L 136-145 eesd=668) POTASSIUM (BEAKER) (test 4.5 meq/L 3.5-5.1 Specimen slightly dkxb=539) hemolyzed CHLORIDE (BEAKER) (test 103 meq/L 98-107 iqiq=110) CO2 (BEAKER) (test 27 meq/L 22-29 disc=689) BLOOD UREA NITROGEN 2 mg/dL 7-21 (BEAKER) (test zadl=365) CREATININE (BEAKER) (test 0.55 mg/dL 0.57-1.25 Specimen slightly janr=250) hemolyzed GLUCOSE RANDOM (BEAKER) 85 mg/dL 70-105 (test iyuw=500) CALCIUM (BEAKER) (test 9.3 mg/dL 8.4-10.2 omro=491) AST (SGOT) (BEAKER) (test 18 U/L 5-34 Specimen slightly znzr=076) hemolyzed ALT (SGPT) (BEAKER) (test 8 U/L 6-55 Specimen slightly dsmy=768) hemolyzed EGFR (BEAKER) (test 168 mL/min/1.73 sq ESTIMATED GFR IS NOT uend=3928) m ACCURATE CREATININE CLEARANCE IN PREDICTING GLOMERULAR FILTRATION RATE. ESTIMATED GFR IS NOT APPLICABLE FOR DIALYSIS PATIENTS. CBC (HEMOGRAM ONLY)2017-05-17 05:20:00 Test Item Value Reference Range Comments WHITE BLOOD CELL COUNT (BEAKER) (test jkij=753) 6.4 K/ L 3.5-10.5 RED BLOOD CELL COUNT (BEAKER) (test bbhj=094) 3.84 M/ L 4.63-6.08 HEMOGLOBIN (BEAKER) (test ozwx=178) 11.5 GM/DL 13.7-17.5 HEMATOCRIT (BEAKER) (test cwsl=720) 35.2 % 40.1-51.0 MEAN CORPUSCULAR VOLUME (BEAKER) (test kdom=917) 91.7 fL 79.0-92.2 MEAN CORPUSCULAR HEMOGLOBIN (BEAKER) (test 29.9 pg 25.7-32.2 seef=641) MEAN CORPUSCULAR HEMOGLOBIN CONC (BEAKER) (test 32.7 GM/DL 32.3-36.5 axvg=556) RED CELL DISTRIBUTION WIDTH (BEAKER) (test 14.1 % 11.6-14.4 miws=278) PLATELET COUNT (BEAKER) (test viam=781) 434 K/CU MM 150-450 MEAN PLATELET VOLUME (BEAKER) (test gkqw=094) 9.4 fL 9.4-12.4 NUCLEATED RED BLOOD CELLS (BEAKER) (test 0 /100 WBC 0-0 pvot=121) HEPATIC FUNCTION [id number] 11:22:00 Test Item Value Reference Range Comments TOTAL PROTEIN (BEAKER) (test ligc=837) 6.9 gm/dL 6.0-8.3 ALBUMIN (BEAKER) (test egrj=0558) 3.4 g/dL 3.5-5.0 BILIRUBIN TOTAL (BEAKER) (test tdae=694) 0.4 mg/dL 0.2-1.2 BILIRUBIN DIRECT (BEAKER) (test avjq=744) 0.2 mg/dL 0.1-0.5 ALKALINE PHOSPHATASE (BEAKER) (test rjrh=379) 65 U/L 40-150 AST (SGOT) (BEAKER) (test mbht=918) 14 U/L 5-34 ALT (SGPT) (BEAKER) (test lmtf=002) 8 U/L 6-55 CBC W/PLT COUNT & AUTO [id number] 11:16:00 Test Item Value Reference Range Comments WHITE BLOOD CELL COUNT (BEAKER) (test uwao=671) 7.0 K/ L 3.5-10.5 RED BLOOD CELL COUNT (BEAKER) (test nisq=425) 3.90 M/ L 4.63-6.08 HEMOGLOBIN (BEAKER) (test sbki=653) 11.9 GM/DL 13.7-17.5 HEMATOCRIT (BEAKER) (test fcfm=488) 35.7 % 40.1-51.0 MEAN CORPUSCULAR VOLUME (BEAKER) (test cxix=821) 91.5 fL 79.0-92.2 MEAN CORPUSCULAR HEMOGLOBIN (BEAKER) (test 30.5 pg 25.7-32.2 qpbq=139) MEAN CORPUSCULAR HEMOGLOBIN CONC (BEAKER) (test 33.3 GM/DL 32.3-36.5 xtgc=811) RED CELL DISTRIBUTION WIDTH (BEAKER) (test 14.0 % 11.6-14.4 cwzj=340) PLATELET COUNT (BEAKER) (test bhke=658) 452 K/CU MM 150-450 MEAN PLATELET VOLUME (BEAKER) (test oxuh=361) 9.0 fL 9.4-12.4 NUCLEATED RED BLOOD CELLS (BEAKER) (test 0 /100 WBC 0-0 velu=548) NEUTROPHILS RELATIVE PERCENT (BEAKER) (test 59 % bpot=149) LYMPHOCYTES RELATIVE PERCENT (BEAKER) (test 21 % gbea=911) MONOCYTES RELATIVE PERCENT (BEAKER) (test 8 % ubfq=845) EOSINOPHILS RELATIVE PERCENT (BEAKER) (test 10 % xtfy=928) BASOPHILS RELATIVE PERCENT (BEAKER) (test 1 % lpli=356) NEUTROPHILS ABSOLUTE COUNT (BEAKER) (test 4.12 K/ L 1.78-5.38 txbh=042) LYMPHOCYTES ABSOLUTE COUNT (BEAKER) (test 1.45 K/ L 1.32-3.57 kzqz=311) MONOCYTES ABSOLUTE COUNT (BEAKER) (test 0.58 K/ L 0.30-0.82 ggya=191) EOSINOPHILS ABSOLUTE COUNT (BEAKER) (test 0.70 K/ L 0.04-0.54 ilnr=986) BASOPHILS ABSOLUTE COUNT (BEAKER) (test 0.10 K/ L 0.01-0.08 emgj=262) IMMATURE GRANULOCYTES-RELATIVE PERCENT (BEAKER) 0 % 0-1 (test bmek=8259) BASIC METABOLIC [id number] 06:43:00 Test Item Value Reference Range Comments SODIUM (BEAKER) (test 138 meq/L 136-145 mghp=742) POTASSIUM (BEAKER) (test 3.5 meq/L 3.5-5.1 fbrs=617) CHLORIDE (BEAKER) (test 100 meq/L 98-107 rxcs=980) CO2 (BEAKER) (test 27 meq/L 22-29 rjsf=037) BLOOD UREA NITROGEN 2 mg/dL 7-21 (BEAKER) (test etik=455) CREATININE (BEAKER) (test 0.53 mg/dL 0.57-1.25 nydk=001) GLUCOSE RANDOM (BEAKER) 82 mg/dL 70-105 (test gnwc=743) CALCIUM (BEAKER) (test 9.0 mg/dL 8.4-10.2 lxlh=640) EGFR (BEAKER) (test 175 mL/min/1.73 sq m ESTIMATED GFR IS NOT pkbm=7683) ACCURATE CREATININE CLEARANCE IN PREDICTING GLOMERULAR FILTRATION RATE. ESTIMATED GFR IS NOT APPLICABLE FOR DIALYSIS PATIENTS. BASIC METABOLIC [id number] 05:14:00 Test Item Value Reference Range Comments SODIUM (BEAKER) (test 132 meq/L 136-145 cyfs=834) POTASSIUM (BEAKER) (test 3.8 meq/L 3.5-5.1 fecf=732) CHLORIDE (BEAKER) (test 101 meq/L 98-107 dpxv=786) CO2 (BEAKER) (test 18 meq/L 22-29 yklp=627) BLOOD UREA NITROGEN 4 mg/dL 7-21 (BEAKER) (test xrtt=738) CREATININE (BEAKER) (test 0.52 mg/dL 0.57-1.25 mbqf=945) GLUCOSE RANDOM (BEAKER) 58 mg/dL 70-105 (test yfjs=089) CALCIUM (BEAKER) (test 8.7 mg/dL 8.4-10.2 etnf=516) EGFR (BEAKER) (test 179 mL/min/1.73 sq m ESTIMATED GFR IS NOT xtqf=4008) ACCURATE CREATININE CLEARANCE IN PREDICTING GLOMERULAR FILTRATION RATE. ESTIMATED GFR IS NOT APPLICABLE FOR DIALYSIS PATIENTS. CBC (HEMOGRAM ONLY)2017-05-15 04:57:00 Test Item Value Reference Range Comments WHITE BLOOD CELL COUNT (BEAKER) (test hlke=119) 13.4 K/ L 3.5-10.5 RED BLOOD CELL COUNT (BEAKER) (test ssdi=979) 3.81 M/ L 4.63-6.08 HEMOGLOBIN (BEAKER) (test ciwt=752) 11.4 GM/DL 13.7-17.5 HEMATOCRIT (BEAKER) (test hnad=251) 35.1 % 40.1-51.0 MEAN CORPUSCULAR VOLUME (BEAKER) (test hugo=714) 92.1 fL 79.0-92.2 MEAN CORPUSCULAR HEMOGLOBIN (BEAKER) (test 29.9 pg 25.7-32.2 pcod=788) MEAN CORPUSCULAR HEMOGLOBIN CONC (BEAKER) (test 32.5 GM/DL 32.3-36.5 qfbb=392) RED CELL DISTRIBUTION WIDTH (BEAKER) (test 14.3 % 11.6-14.4 hckz=126) PLATELET COUNT (BEAKER) (test luvm=767) 502 K/CU MM 150-450 MEAN PLATELET VOLUME (BEAKER) (test zosb=380) 9.6 fL 9.4-12.4 NUCLEATED RED BLOOD CELLS (BEAKER) (test 0 /100 WBC 0-0 xwjk=016) LIPID [id number] 05:00:00 Test Item Value Reference Range Comments TRIGLYCERIDES (BEAKER) (test cpxg=015) 71 mg/dL CHOLESTEROL (BEAKER) (test nyix=728) 108 mg/dL HDL CHOLESTEROL (BEAKER) (test ygrx=795) 22 mg/dL LDL CHOLESTEROL CALCULATED (BEAKER) (test 72 mg/dL rnuf=094) Triglyceride Reference Range: Low Risk <150 Borderline 150- 199 High Risk 200-499 Very High Risk >=500Cholesterol Reference Range: Low Risk <200 Borderline 200-239 High Risk > 240HDL Cholesterol Reference Range: Low Risk >=60 High Risk <40LDL Cholesterol Reference Range: Optimal <100 Near Optimal 100-129 Borderline 130-159 High 160-189 Very High >=190BASIC METABOLIC [id number] 05:00:00 Test Item Value Reference Range Comments SODIUM (BEAKER) (test 133 meq/L 136-145 kqup=490) POTASSIUM (BEAKER) (test 4.1 meq/L 3.5-5.1 cwds=693) CHLORIDE (BEAKER) (test 105 meq/L 98-107 obbc=820) CO2 (BEAKER) (test 17 meq/L 22-29 hvkv=346) BLOOD UREA NITROGEN 8 mg/dL 7-21 (BEAKER) (test yyym=653) CREATININE (BEAKER) (test 0.51 mg/dL 0.57-1.25 ezfg=102) GLUCOSE RANDOM (BEAKER) 54 mg/dL 70-105 (test rmrr=947) CALCIUM (BEAKER) (test 8.4 mg/dL 8.4-10.2 nozx=701) EGFR (BEAKER) (test 183 mL/min/1.73 sq m ESTIMATED GFR IS NOT mwfo=3985) ACCURATE CREATININE CLEARANCE IN PREDICTING GLOMERULAR FILTRATION RATE. ESTIMATED GFR IS NOT APPLICABLE FOR DIALYSIS PATIENTS. HEPATIC FUNCTION [id number] 05:00:00 Test Item Value Reference Range Comments TOTAL PROTEIN (BEAKER) (test jsoi=472) 6.3 gm/dL 6.0-8.3 ALBUMIN (BEAKER) (test aqfe=6468) 3.2 g/dL 3.5-5.0 BILIRUBIN TOTAL (BEAKER) (test vhqm=095) 0.7 mg/dL 0.2-1.2 BILIRUBIN DIRECT (BEAKER) (test zeac=964) 0.3 mg/dL 0.1-0.5 ALKALINE PHOSPHATASE (BEAKER) (test yynw=019) 62 U/L 40-150 AST (SGOT) (BEAKER) (test obck=569) 13 U/L 5-34 ALT (SGPT) (BEAKER) (test uvyo=020) 9 U/L 6-55 [id number] 05:00:00 Test Item Value Reference Range Comments LIPASE (BEAKER) (test zyii=107) 1007 U/L 8-78 CBC (HEMOGRAM ONLY)2017-05-14 04:39:00 Test Item Value Reference Range Comments WHITE BLOOD CELL COUNT (BEAKER) (test avyz=808) 16.6 K/ L 3.5-10.5 RED BLOOD CELL COUNT (BEAKER) (test qxvv=670) 3.98 M/ L 4.63-6.08 HEMOGLOBIN (BEAKER) (test cskr=407) 12.0 GM/DL 13.7-17.5 HEMATOCRIT (BEAKER) (test faxr=328) 37.2 % 40.1-51.0 MEAN CORPUSCULAR VOLUME (BEAKER) (test dkbv=306) 93.5 fL 79.0-92.2 MEAN CORPUSCULAR HEMOGLOBIN (BEAKER) (test 30.2 pg 25.7-32.2 lcov=715) MEAN CORPUSCULAR HEMOGLOBIN CONC (BEAKER) (test 32.3 GM/DL 32.3-36.5 mqgi=543) RED CELL DISTRIBUTION WIDTH (BEAKER) (test 14.5 % 11.6-14.4 pvyf=551) PLATELET COUNT (BEAKER) (test ydtr=983) 527 K/CU MM 150-450 MEAN PLATELET VOLUME (BEAKER) (test usgu=731) 9.5 fL 9.4-12.4 NUCLEATED RED BLOOD CELLS (BEAKER) (test 0 /100 WBC 0-0 gtlg=168) MR, ABDOMEN, [id number] 12:25:00FINAL REPORT MRI of the abdomen, MRCP. [...] MDReport Verified Date/Time: 03/13/2017 12:25:41 Reading Location: [address] Reading Room Electronically signed by: KIKO VEE M.D. on 12:25 PM[facility] METABOLIC [id number] 05:05:00 Test Item Value Reference Range Comments SODIUM (BEAKER) (test 139 meq/L 136-145 vviz=473) POTASSIUM (BEAKER) (test 3.7 meq/L 3.5-5.1 jthy=763) CHLORIDE (BEAKER) (test 108 meq/L 98-107 ztgl=776) CO2 (BEAKER) (test 22 meq/L 22-29 ssvb=400) BLOOD UREA NITROGEN 4 mg/dL 7-21 (BEAKER) (test xptn=559) CREATININE (BEAKER) (test 0.58 mg/dL 0.57-1.25 dtaq=765) GLUCOSE RANDOM (BEAKER) 95 mg/dL 70-105 (test bofr=347) CALCIUM (BEAKER) (test 8.5 mg/dL 8.4-10.2 jyff=245) EGFR (BEAKER) (test 158 mL/min/1.73 sq m ESTIMATED GFR IS NOT kydg=5745) ACCURATE CREATININE CLEARANCE IN PREDICTING GLOMERULAR FILTRATION RATE. ESTIMATED GFR IS NOT APPLICABLE FOR DIALYSIS PATIENTS. CBC W/PLT COUNT & AUTO [id number] 04:49:00 Test Item Value Reference Range Comments WHITE BLOOD CELL COUNT (BEAKER) (test zmqo=784) 6.3 K/ L 3.5-10.5 RED BLOOD CELL COUNT (BEAKER) (test uvcn=236) 4.32 M/ L 4.63-6.08 HEMOGLOBIN (BEAKER) (test gsjo=752) 13.7 GM/DL 13.7-17.5 HEMATOCRIT (BEAKER) (test lxvh=289) 40.3 % 40.1-51.0 MEAN CORPUSCULAR VOLUME (BEAKER) (test fbdq=804) 93.3 fL 79.0-92.2 MEAN CORPUSCULAR HEMOGLOBIN (BEAKER) (test 31.7 pg 25.7-32.2 hmsu=591) MEAN CORPUSCULAR HEMOGLOBIN CONC (BEAKER) (test 34.0 GM/DL 32.3-36.5 adxt=912) RED CELL DISTRIBUTION WIDTH (BEAKER) (test 11.9 % 11.6-14.4 cshb=279) PLATELET COUNT (BEAKER) (test swyt=941) 286 K/CU MM 150-450 MEAN PLATELET VOLUME (BEAKER) (test reyv=124) 9.4 fL 9.4-12.4 NUCLEATED RED BLOOD CELLS (BEAKER) (test 0 /100 WBC 0-0 yyse=127) NEUTROPHILS RELATIVE PERCENT (BEAKER) (test 51 % ehjn=147) LYMPHOCYTES RELATIVE PERCENT (BEAKER) (test 31 % qpmp=451) MONOCYTES RELATIVE PERCENT (BEAKER) (test 11 % qxme=399) EOSINOPHILS RELATIVE PERCENT (BEAKER) (test 6 % mhgy=147) BASOPHILS RELATIVE PERCENT (BEAKER) (test 1 % nmfq=147) NEUTROPHILS ABSOLUTE COUNT (BEAKER) (test 3.21 K/ L 1.78-5.38 dbyd=543) LYMPHOCYTES ABSOLUTE COUNT (BEAKER) (test 1.91 K/ L 1.32-3.57 fmdg=449) MONOCYTES ABSOLUTE COUNT (BEAKER) (test 0.68 K/ L 0.30-0.82 nggn=117) EOSINOPHILS ABSOLUTE COUNT (BEAKER) (test 0.40 K/ L 0.04-0.54 rpbo=546) BASOPHILS ABSOLUTE COUNT (BEAKER) (test 0.04 K/ L 0.01-0.08 rvyf=141) IMMATURE GRANULOCYTES-RELATIVE PERCENT (BEAKER) 1 % 0-1 (test qbde=0106) CBC W/PLT COUNT & AUTO [id number] 04:52:00 Test Item Value Reference Range Comments WHITE BLOOD CELL COUNT (BEAKER) (test dggi=467) 6.2 K/ L 3.5-10.5 RED BLOOD CELL COUNT (BEAKER) (test mbsv=196) 4.31 M/ L 4.63-6.08 HEMOGLOBIN (BEAKER) (test zhxb=741) 13.7 GM/DL 13.7-17.5 HEMATOCRIT (BEAKER) (test xqoa=077) 41.1 % 40.1-51.0 MEAN CORPUSCULAR VOLUME (BEAKER) (test gyee=593) 95.4 fL 79.0-92.2 MEAN CORPUSCULAR HEMOGLOBIN (BEAKER) (test 31.8 pg 25.7-32.2 ganl=763) MEAN CORPUSCULAR HEMOGLOBIN CONC (BEAKER) (test 33.3 GM/DL 32.3-36.5 yaag=395) RED CELL DISTRIBUTION WIDTH (BEAKER) (test 12.1 % 11.6-14.4 wdqq=736) PLATELET COUNT (BEAKER) (test qcge=873) 295 K/CU MM 150-450 MEAN PLATELET VOLUME (BEAKER) (test wezh=202) 9.5 fL 9.4-12.4 NUCLEATED RED BLOOD CELLS (BEAKER) (test 0 /100 WBC 0-0 xjkq=093) NEUTROPHILS RELATIVE PERCENT (BEAKER) (test 51 % exvh=006) LYMPHOCYTES RELATIVE PERCENT (BEAKER) (test 31 % spvk=807) MONOCYTES RELATIVE PERCENT (BEAKER) (test 11 % wswb=588) EOSINOPHILS RELATIVE PERCENT (BEAKER) (test 7 % awoi=046) BASOPHILS RELATIVE PERCENT (BEAKER) (test 1 % oarn=657) NEUTROPHILS ABSOLUTE COUNT (BEAKER) (test 3.17 K/ L 1.78-5.38 aluq=904) LYMPHOCYTES ABSOLUTE COUNT (BEAKER) (test 1.89 K/ L 1.32-3.57 cgyj=906) MONOCYTES ABSOLUTE COUNT (BEAKER) (test 0.65 K/ L 0.30-0.82 aqzk=024) EOSINOPHILS ABSOLUTE COUNT (BEAKER) (test 0.41 K/ L 0.04-0.54 bdfx=184) BASOPHILS ABSOLUTE COUNT (BEAKER) (test 0.05 K/ L 0.01-0.08 lpii=911) IMMATURE GRANULOCYTES-RELATIVE PERCENT (BEAKER) 1 % 0-1 (test ipbi=6692) COMPREHENSIVE METABOLIC [id number] 11:20:00 Test Item Value Reference Range Comments TOTAL PROTEIN (BEAKER) 7.2 gm/dL 6.0-8.3 (test xfqn=963) ALBUMIN (BEAKER) (test 3.7 g/dL 3.5-5.0 hinm=9375) ALKALINE PHOSPHATASE 73 U/L 40-150 (BEAKER) (test dfqu=564) BILIRUBIN TOTAL (BEAKER) 0.6 mg/dL 0.2-1.2 (test bwpd=724) SODIUM (BEAKER) (test 135 meq/L 136-145 fwnh=597) POTASSIUM (BEAKER) (test 5.0 meq/L 3.5-5.1 jtfz=587) CHLORIDE (BEAKER) (test 109 meq/L 98-107 mqrw=055) CO2 (BEAKER) (test 14 meq/L 22-29 upko=054) BLOOD UREA NITROGEN 6 mg/dL 7-21 (BEAKER) (test teuy=280) CREATININE (BEAKER) (test 0.62 mg/dL 0.57-1.25 yqyq=436) GLUCOSE RANDOM (BEAKER) 45 mg/dL 70-105 (test uqic=443) CALCIUM (BEAKER) (test 8.6 mg/dL 8.4-10.2 hlbe=991) AST (SGOT) (BEAKER) (test 17 U/L 5-34 dhdb=135) ALT (SGPT) (BEAKER) (test 14 U/L 6-55 jcud=560) EGFR (BEAKER) (test 146 mL/min/1.73 sq ESTIMATED GFR IS NOT veao=8910) m ACCURATE CREATININE CLEARANCE IN PREDICTING GLOMERULAR FILTRATION RATE. ESTIMATED GFR IS NOT APPLICABLE FOR DIALYSIS PATIENTS. CBC W/PLT COUNT & AUTO [id number] 09:54:00 Test Item Value Reference Range Comments WHITE BLOOD CELL COUNT (BEAKER) (test csjb=497) 7.4 K/ L 3.5-10.5 RED BLOOD CELL COUNT (BEAKER) (test cgzx=331) 4.32 M/ L 4.63-6.08 HEMOGLOBIN (BEAKER) (test ixvx=348) 13.6 GM/DL 13.7-17.5 HEMATOCRIT (BEAKER) (test bbnx=375) 41.8 % 40.1-51.0 MEAN CORPUSCULAR VOLUME (BEAKER) (test wibv=119) 96.8 fL 79.0-92.2 MEAN CORPUSCULAR HEMOGLOBIN (BEAKER) (test 31.5 pg 25.7-32.2 bxjo=938) MEAN CORPUSCULAR HEMOGLOBIN CONC (BEAKER) (test 32.5 GM/DL 32.3-36.5 ekel=319) RED CELL DISTRIBUTION WIDTH (BEAKER) (test 12.1 % 11.6-14.4 fauy=662) PLATELET COUNT (BEAKER) (test bgsq=856) 277 K/CU MM 150-450 MEAN PLATELET VOLUME (BEAKER) (test wcep=184) 9.7 fL 9.4-12.4 NUCLEATED RED BLOOD CELLS (BEAKER) (test 0 /100 WBC 0-0 uuvv=975) NEUTROPHILS RELATIVE PERCENT (BEAKER) (test 57 % ocgv=728) LYMPHOCYTES RELATIVE PERCENT (BEAKER) (test 29 % osbr=036) MONOCYTES RELATIVE PERCENT (BEAKER) (test 8 % imxp=146) EOSINOPHILS RELATIVE PERCENT (BEAKER) (test 5 % vcxt=618) BASOPHILS RELATIVE PERCENT (BEAKER) (test 1 % pssn=995) NEUTROPHILS ABSOLUTE COUNT (BEAKER) (test 4.23 K/ L 1.78-5.38 kdgq=784) LYMPHOCYTES ABSOLUTE COUNT (BEAKER) (test 2.10 K/ L 1.32-3.57 svzu=729) MONOCYTES ABSOLUTE COUNT (BEAKER) (test 0.57 K/ L 0.30-0.82 ffmg=941) EOSINOPHILS ABSOLUTE COUNT (BEAKER) (test 0.38 K/ L 0.04-0.54 qsll=975) BASOPHILS ABSOLUTE COUNT (BEAKER) (test 0.05 K/ L 0.01-0.08 iace=398) IMMATURE GRANULOCYTES-RELATIVE PERCENT (BEAKER) 1 % 0-1 (test fqlw=6149) (MANUAL DIFFERENTIAL)2017-03-11 09:54:00 Test Item Value Reference Range Comments TOTAL COUNTED (BEAKER) (test jcra=2659) WBC MORPHOLOGY (BEAKER) (test ujvr=969) Normal PLT MORPHOLOGY (BEAKER) (test kzyr=721) Normal RBC MORPHOLOGY (BEAKER) (test iumk=281) Normal CBC W/PLT COUNT & AUTO [id number] 09:09:00 Test Item Value Reference Range Comments WHITE BLOOD CELL COUNT (BEAKER) (test vkry=573) 8.9 K/ L 3.5-10.5 RED BLOOD CELL COUNT (BEAKER) (test bjkk=079) 4.25 M/ L 4.63-6.08 HEMOGLOBIN (BEAKER) (test yzkr=243) 13.6 GM/DL 13.7-17.5 HEMATOCRIT (BEAKER) (test dbbg=755) 40.7 % 40.1-51.0 MEAN CORPUSCULAR VOLUME (BEAKER) (test vqtn=734) 95.8 fL 79.0-92.2 MEAN CORPUSCULAR HEMOGLOBIN (BEAKER) (test 32.0 pg 25.7-32.2 ixlc=660) MEAN CORPUSCULAR HEMOGLOBIN CONC (BEAKER) (test 33.4 GM/DL 32.3-36.5 axse=750) RED CELL DISTRIBUTION WIDTH (BEAKER) (test 12.1 % 11.6-14.4 dlkg=015) PLATELET COUNT (BEAKER) (test weqm=521) 274 K/CU MM 150-450 MEAN PLATELET VOLUME (BEAKER) (test efoj=541) 9.8 fL 9.4-12.4 NUCLEATED RED BLOOD CELLS (BEAKER) (test 0 /100 WBC 0-0 fpss=691) NEUTROPHILS RELATIVE PERCENT (BEAKER) (test 62 % kieb=237) LYMPHOCYTES RELATIVE PERCENT (BEAKER) (test 24 % gfyr=978) MONOCYTES RELATIVE PERCENT (BEAKER) (test 7 % nmbn=901) EOSINOPHILS RELATIVE PERCENT (BEAKER) (test 5 % aglo=052) BASOPHILS RELATIVE PERCENT (BEAKER) (test 1 % srja=883) NEUTROPHILS ABSOLUTE COUNT (BEAKER) (test 5.55 K/ L 1.78-5.38 opgd=923) LYMPHOCYTES ABSOLUTE COUNT (BEAKER) (test 2.14 K/ L 1.32-3.57 wohs=089) MONOCYTES ABSOLUTE COUNT (BEAKER) (test 0.64 K/ L 0.30-0.82 bvuu=273) EOSINOPHILS ABSOLUTE COUNT (BEAKER) (test 0.48 K/ L 0.04-0.54 csxe=714) BASOPHILS ABSOLUTE COUNT (BEAKER) (test 0.07 K/ L 0.01-0.08 kntk=921) IMMATURE GRANULOCYTES-RELATIVE PERCENT (BEAKER) 0 % 0-1 (test jbrx=3319) (MANUAL DIFFERENTIAL)2017-03-10 09:09:00 Test Item Value Reference Range Comments TOTAL COUNTED (BEAKER) (test bpre=0759) WBC MORPHOLOGY (BEAKER) (test cckl=181) Normal PLT MORPHOLOGY (BEAKER) (test wuqn=766) Normal RBC MORPHOLOGY (BEAKER) (test ypeb=846) Normal COMPREHENSIVE METABOLIC [id number] 07:30:00 Test Item Value Reference Range Comments TOTAL PROTEIN (BEAKER) 6.8 gm/dL 6.0-8.3 (test mvgc=965) ALBUMIN (BEAKER) (test 3.6 g/dL 3.5-5.0 nwkh=6871) ALKALINE PHOSPHATASE 77 U/L 40-150 (BEAKER) (test vuyt=166) BILIRUBIN TOTAL (BEAKER) 0.6 mg/dL 0.2-1.2 (test pyju=510) SODIUM (BEAKER) (test 136 meq/L 136-145 ttfu=050) POTASSIUM (BEAKER) (test 4.3 meq/L 3.5-5.1 qskz=415) CHLORIDE (BEAKER) (test 105 meq/L 98-107 oowy=913) CO2 (BEAKER) (test 19 meq/L 22-29 odgh=398) BLOOD UREA NITROGEN 6 mg/dL 7-21 (BEAKER) (test yvhz=790) CREATININE (BEAKER) (test 0.57 mg/dL 0.57-1.25 rgto=699) GLUCOSE RANDOM (BEAKER) 52 mg/dL 70-105 (test ttxt=279) CALCIUM (BEAKER) (test 8.2 mg/dL 8.4-10.2 owog=258) AST (SGOT) (BEAKER) (test 17 U/L 5-34 zacl=071) ALT (SGPT) (BEAKER) (test 14 U/L 6-55 dkkp=969) EGFR (BEAKER) (test 161 mL/min/1.73 sq ESTIMATED GFR IS NOT lvcb=[id number]) m ACCURATE CREATININE CLEARANCE IN PREDICTING GLOMERULAR FILTRATION RATE. ESTIMATED GFR IS NOT APPLICABLE FOR DIALYSIS PATIENTS. CBC W/PLT COUNT & AUTO [id number] 10:49:00 Test Item Value Reference Range Comments WHITE BLOOD CELL COUNT (BEAKER) (test kycu=534) 6.9 K/ L 3.5-10.5 RED BLOOD CELL COUNT (BEAKER) (test vafp=707) 3.83 M/ L 4.63-6.08 HEMOGLOBIN (BEAKER) (test juec=863) 12.5 GM/DL 13.7-17.5 HEMATOCRIT (BEAKER) (test sxrm=289) 36.7 % 40.1-51.0 MEAN CORPUSCULAR VOLUME (BEAKER) (test kznn=151) 95.8 fL 79.0-92.2 MEAN CORPUSCULAR HEMOGLOBIN (BEAKER) (test 32.6 pg 25.7-32.2 wpvf=089) MEAN CORPUSCULAR HEMOGLOBIN CONC (BEAKER) (test 34.1 GM/DL 32.3-36.5 ndiq=689) RED CELL DISTRIBUTION WIDTH (BEAKER) (test 12.4 % 11.6-14.4 gfkm=813) PLATELET COUNT (BEAKER) (test lvfz=796) 267 K/CU MM 150-450 MEAN PLATELET VOLUME (BEAKER) (test ivei=809) 9.7 fL 9.4-12.4 NUCLEATED RED BLOOD CELLS (BEAKER) (test 0 /100 WBC 0-0 hqxy=779) NEUTROPHILS RELATIVE PERCENT (BEAKER) (test 60 % cvpo=906) LYMPHOCYTES RELATIVE PERCENT (BEAKER) (test 26 % kxiz=687) MONOCYTES RELATIVE PERCENT (BEAKER) (test 7 % mpdb=127) EOSINOPHILS RELATIVE PERCENT (BEAKER) (test 6 % pyzc=874) BASOPHILS RELATIVE PERCENT (BEAKER) (test 1 % phsi=065) NEUTROPHILS ABSOLUTE COUNT (BEAKER) (test 4.15 K/ L 1.78-5.38 wnoa=816) LYMPHOCYTES ABSOLUTE COUNT (BEAKER) (test 1.82 K/ L 1.32-3.57 tjui=203) MONOCYTES ABSOLUTE COUNT (BEAKER) (test 0.47 K/ L 0.30-0.82 whra=092) EOSINOPHILS ABSOLUTE COUNT (BEAKER) (test 0.38 K/ L 0.04-0.54 vxme=746) BASOPHILS ABSOLUTE COUNT (BEAKER) (test 0.04 K/ L 0.01-0.08 kkop=177) COMPREHENSIVE METABOLIC [id number] 10:45:00 Test Item Value Reference Range Comments TOTAL PROTEIN (BEAKER) 6.2 gm/dL 6.0-8.3 (test fqlv=153) ALBUMIN (BEAKER) (test 3.3 g/dL 3.5-5.0 irsr=7724) ALKALINE PHOSPHATASE 70 U/L 40-150 (BEAKER) (test jadn=756) BILIRUBIN TOTAL (BEAKER) 0.4 mg/dL 0.2-1.2 (test sbxr=833) SODIUM (BEAKER) (test 138 meq/L 136-145 lkjo=074) POTASSIUM (BEAKER) (test 3.5 meq/L 3.5-5.1 hjdm=344) CHLORIDE (BEAKER) (test 109 meq/L 98-107 ubwx=357) CO2 (BEAKER) (test 23 meq/L 22-29 ldjh=524) BLOOD UREA NITROGEN 5 mg/dL 7-21 (BEAKER) (test rgvt=146) CREATININE (BEAKER) (test 0.54 mg/dL 0.57-1.25 xcid=610) GLUCOSE RANDOM (BEAKER) 77 mg/dL 70-105 (test eefp=677) CALCIUM (BEAKER) (test 7.6 mg/dL 8.4-10.2 zfbg=013) AST (SGOT) (BEAKER) (test 18 U/L 5-34 rlgk=045) ALT (SGPT) (BEAKER) (test 15 U/L 6-55 glne=755) EGFR (BEAKER) (test 171 mL/min/1.73 sq ESTIMATED GFR IS NOT gzsn=8163) m ACCURATE CREATININE CLEARANCE IN PREDICTING GLOMERULAR FILTRATION RATE. ESTIMATED GFR IS NOT APPLICABLE FOR DIALYSIS PATIENTS. [id number] 10:29:00 Test Item Value Reference Range Comments TRIGLYCERIDES (BEAKER) (test sesk=040) 58 mg/dL TRIGLYCERIDE REFERENCE RANGELow Risk <150Borderline Risk 150-199High Risk 200-499Very High Risk>=[id number] 10:29:00 Test Item Value Reference Range Comments MAGNESIUM (BEAKER) (test mqsh=946) 1.4 mg/dL 1.6-2.6 [id number] 10:29:00 Test Item Value Reference Range Comments LIPASE (BEAKER) (test epgq=298) 536 U/L 8-78 PROTHROMBIN [id number] 10:22:00 Test Item Value Reference Range Comments PROTIME (BEAKER) (test pxkl=873) 14.3 seconds 11.7-14.7 INR (BEAKER) (test bgbv=523) 1.1 <=5.9 RECOMMENDED COUMADIN/WARFARIN INR THERAPY RANGESSTANDARD DOSE: 2.0 - 3.0 Includes: PROPHYLAXIS forvenous thrombosis, systemic embolization; TREATMENT for venous thrombosis and/or pulmonary embolus.HIGH RISK: Target INR is 2.5-3.5 for patients with mechanical heart valves.
[2017-09-13] MEDS ORDERED: NA CHLORIDE 0.9% 1,000 ML ONE ×2 (16:54→19:52)
[2017-09-13] MEDS ORDERED: MORPHINE 4 MG/ML SYR ONE ×4 (17:18→23:10)
[2017-09-13] MEDS ORDERED: ONDANSETRON 4 MG/2 ML VIAL ONE (17:18)
[2017-09-13 17:20] LABS: Absolute Lymphocytes (CBC) 0.9 K/uL (0.7-4.9); Absolute Monocytes 0.6 K/uL (0.1-1.3); Absolute Neutrophil 9.1 K/uL (1.8-8.0); Basophils % 0.6 % (0-1.3); Eosinophils % 0.1 % (0-4.4); Hematocrit 42.9 % (39.6-49.0); Lymphocytes % 8.6 % (15.3-44.8); MCH 31.5 pg (27.0-35.0); MCV 89.6 fL (80-100); MPV 7.5 fL (7.6-11.3); Monocytes % 5.6 % (3.3-12.3); RBC Red Blood Cell Count 4.79 M/uL (4.33-5.43)
[2017-09-13 17:26] LABS: Bicarbonate 24 mEq/L (21-31); Glucose Level 165 mg/dL (65-120); Sodium Level 134 mEq/L (135-145)
[2017-09-13 17:32] LABS: ALT/SGPT 14 IU/L (10-60); AST/SGOT 25 IU/L (10-42); Albumin 5.1 g/dL (3.2-5.5); Alkaline Phosphatase 113 IU/L (42-121); BUN Blood Urea Nitrogen 18 mg/dL (6-20); Bilirubin Direct < 0.1 mg/dL (0-0.2); Bilirubin Total 0.6 mg/dL (0.3-1.2); Protein, Total 9.5 g/dL (6.0-8.3)
[2017-09-13 17:48] LABS: Blood Morphology Comment NOT SEEN (NOT SEEN); Platelet Estimate INCR; Urine White Blood Cell Casts OK
[2017-09-13 17:53] LABS: Lipase > 400 U/L (22-51)
--- NOTE | 2017-09-13 18:44 | RAD REPORT ---
EXAM DESCRIPTION: CT - Abdomen Pelvis W Contrast - 09/13/2017 6:24 pm CLINICAL HISTORY: Abdominal pain with nausea. COMPARISON: August 31, 2017 TECHNIQUE: Computed axial tomography of the abdomen pelvis was obtained. 100 cc Isovue-300 was admin istered intravenously. Oral contrast was not requested which limits evaluation of bowel. All CT scans are performed using dose optimization technique as appropriate and may include automated exposure control or mA/KV adjustment according to patient size. FINDINGS: A 5.3 x 4.5 centimeter pseudocyst within the region of the pancreatic head has enlarged si nce the prior exam in which it measured 4.5 x 3.7 centimeters. Hemorrhage has developed within the ps eudocyst measuring 3.9 centimeters. The pancreatic duct has become more dilated. Liver, spleen, adrenals and kidneys appear unremarkable. Small amount of ascites is present. No other significant change is noted. IMPRESSION: 5.3 centimeter pseudocyst within the region of the pancreatic head has enlarged and beco me hemorrhagic since the prior exam. The pancreatic duct has become more dilated appear
[2017-09-13] MEDS ORDERED: LORazepam 2 MG/ML VIAL ONE (19:17)
--- NOTE | 2017-09-13 19:38 | ER ---
Nurse's Notes [facility] Name: Ankit Rosales Age: 37 yrs Sex: Male : 1980 Arrival Date: 09/13/2017 Time: 15:06 Bed 18 Private MD: None, None Diagnosis: Acute pancreatitis;Pseudocyst of pancreas-Hemorrhagic pseudocyst Presentation: 09/13 15:12 Presenting complaint: Patient states: Upper abdominal pain with N/V since this AM. HX aj of chronic pancreatitis. Reports taking last Hydrocodone last night. Transition of care: patient was not received from another setting of care. Onset of symptoms was September 13, 2017. Risk Assessment: Do you want to hurt yourself or someone else? Patient reports no desire to harm self or others. Initial Sepsis Screen: Does the patient meet any 2 criteria? No. Patient's initial sepsis screen is negative. Does the patient have a suspected source of infection? No. Patient's initial sepsis screen is negative. Care prior to arrival: None. 15:12 Method Of Arrival: Ambulatory 15:12 Acuity: KRAIG 3 aj Triage Assessment: 15:13 General: Appears in no apparent distress. uncomfortable, Behavior is cooperative, aj appropriate for age. Pain: Complains of pain in right upper quadrant and left upper quadrant. Neuro: Level of Consciousness is awake, alert, obeys commands, Oriented to person, place, time, situation, Appropriate for age. Respiratory: Airway is patent Respiratory effort is even, unlabored, Respiratory pattern is regular, symmetrical. GI: Reports upper abdominal pain, nausea, vomiting. Derm: Skin is intact, is healthy with good turgor, Skin is pink, warm \T\ dry. normal. Historical: - Allergies: 15:13 NKDA; aj - Home Meds: 15:13 None [Active]; aj - PMHx: 15:13 Cirrhosis; GALLSTONES; left leg DVT; Pancreatitis; aj - PSHx: 15:13 None; aj - Immunization history:: Adult Immunizations up to date. - Social history:: Smoking status: Patient uses tobacco products, smokes one pack cigarettes per day. - Ebola Screening: : Patient negative for fever greater than or equal to 101.5 degrees Fahrenheit, and additional compatible Ebola Virus Disease symptoms Patient denies exposure to infectious person Patient denies travel to an Ebola-affected area in the 21 days before illness onset No symptoms or risks identified at this time. Screenin:10 Abuse screen: Denies threats or abuse. Nutritional screening: No deficits noted. mb3 Tuberculosis screening: No symptoms or risk factors identified. Fall Risk No fall in past 12 months (0 pts). Secondary diagnosis (15 points) IV access (20 points). Ambulatory Aid- None/Bed Rest/Nurse Assist (0 pts). Gait- Normal/Bed Rest/Wheelchair (0 pts) Mental Status- Oriented to own ability (0 pts). Total Carson Fall Scale indicates Low Risk Score (25-44 pts). Side Rails Up X 2 Placed close to Nursing Station As available Patient and Family Educated on Fall Prevention Program and strategies. Assessment: 18:26 General: Appears uncomfortable, slender, Behavior is cooperative, appropriate for age, mb3 anxious. Pain: Complains of pain in abdomen and left upper quadrant. Neuro: No deficits noted. Cardiovascular: No deficits noted. Respiratory: No deficits noted. GI: Abdomen is flat, Bowel sounds present X 4 quads. Abd is soft Abdomen is tender to palpation in left upper quadrant Reports upper abdominal pain, nausea. : No signs and/or symptoms were reported regarding the genitourinary system. EENT: No signs and/or symptoms were reported regarding the EENT system. Derm: No signs and/or symptoms reported regarding the dermatologic system. 19:59 Reassessment: Patient appears in no apparent distress at this time. Patient and/or mb3 family updated on plan of care and expected duration. Pain level reassessed. Patient is alert, oriented x 3, equal unlabored respirations, skin warm/dry/pink. 20:53 Reassessment: Patient appears in no apparent distress at this time. Patient and/or mb3 family updated on plan of care and expected duration. Pain level reassessed. Patient is alert, oriented x 3, equal unlabored respirations, skin warm/dry/pink. 21:36 Reassessment: Report called to Alonso Lugo RN, SBAR used, all questions answered. bs1 Vital Signs: 15:13 BP 134 / 77; Pulse 105; Resp 24; Temp 97.6; Pulse Ox 100% on R/A; Weight 53.52 kg; aj Height 5 ft. 6 in. (167.64 cm); Pain 10/10; 17:20 BP 136 / 87; Pulse 78; Resp 20; Pulse Ox 99% on R/A; mh5 18:25 BP 128 / 72; Pulse 99; Resp 18; Pulse Ox 100% on R/A; mb3 19:12 BP 131 / 84; Pulse 104; Resp 16; Pulse Ox 100% ; mb3 19:58 BP 132 / 77; Pulse 84; Resp 16; Pulse Ox 99% on R/A; mb3 23:10 BP 134 / 82; Pulse 112; Resp 18; Pulse Ox 96% on R/A; mb3 15:13 Body Mass Index 19.05 (53.52 kg, 167.64 cm) aj ED Course: 15:06 Patient arrived in ED. sb2 15:06 None, None is Private Physician. sb2 15:13 Triage completed. aj 15:13 Arm band placed on right wrist. Patient placed in waiting room, Patient notified of wait time. 16:26 Jluis Martinez NP is PHCP. pm1 16:26 Wang Murdock MD is Attending Physician. pm1 16:26 Socrates Moralez, MIRYAM is Primary Nurse. mb3 17:18 Initial lab(s) drawn, by nm, sent to lab. Inserted saline lock: 22 gauge in right 5 antecubital area, using aseptic technique. Blood collected. 17:19 Patient has correct armband on for positive identification. Bed in low position. Call [facility] light in reach. Side rails up X 1. Pulse ox on. NIBP on. 18:21 CT completed. Patient moved to CT via wheelchair. Patient moved back from CT. cw1 18:24 CT Abd/Pelvis - W/Contrast: IV contrast only In Process Unspecified. EDMS 19:20 initiated a transfer with An at [facility]. eb 19:49 An from [facility] called to notify there is a delay in getting a hold of her eb hospitalist and will call back as soon as she can. 20:17 connected the from [facility] with Jluis RUSSELL for pt transfer consulation. eb 23:15 No provider procedures requiring assistance completed. Patient transferred, IV remains mb3 in place. Administered Medications: 17:24 Drug: NS 0.9% 1000 ml Route: IV; Rate: 1000 ml; Site: right antecubital; mb3 18:24 Follow up: Response: No adverse reaction; IV Status: Completed infusion; IV Intake: mb3 1000ml 19:18 Follow up: Response: No adverse reaction; IV Status: Completed infusion; IV Intake: mb3 1000ml 17:24 Drug: morphine 4 mg Route: IVP; Site: right antecubital; mb3 18:25 Follow up: Response: No adverse reaction mb3 19:18 Follow up: Response: No adverse reaction mb3 17:24 Drug: Zofran 4 mg Route: IVP; Site: right antecubital; mb3 18:25 Follow up: Response: No adverse reaction mb3 19:18 Follow up: Response: No adverse reaction mb3 18:20 Drug: morphine 4 mg Route: IVP; Site: right antecubital; mb3 19:19 Follow up: Response: No adverse reaction mb3 19:17 Drug: Ativan 1 mg Route: IVP; Site: right antecubital; mb3 19:19 Follow up: Response: No adverse reaction mb3 19:58 Drug: NS 0.9% 1000 ml Route: IV; Rate: 1000 ml; Site: right antecubital; mb3 20:50 Follow up: Response: No adverse reaction; IV Status: Completed infusion; IV Intake: mb3 1000ml 23:12 Follow up: Response: No adverse reaction; IV Status: Completed infusion; IV Intake: mb3 1000ml 20:49 Drug: morphine 4 mg Route: IVP; Site: right antecubital; mb3 20:50 Follow up: Response: No adverse reaction mb3 23:10 Drug: morphine 4 mg Route: IVP; Site: right antecubital; mb3 23:10 Follow up: BP 134 / 82; Pulse 112 bpm; Resp 18 bpm; Pulse Ox 96% RA; Response: No mb3 adverse reaction Intake: 18:24 IV: 1000ml; Total: 1000ml. mb3 19:18 IV: 1000ml; Total: 2000ml. mb3 20:50 IV: 1000ml; Total: 3000ml. mb3 23:12 IV: 1000ml; Total: 4000ml. mb3 Outcome: 19:37 ER care complete, transfer ordered by pm1 23:12 Transferred by private ambulance to [facility], Transfer form mb3 completed. 23:12 Condition: stable 23:12 Instructed on the need for transfer. 23:15 Patient left the ED. mb3 Signatures: Dispatcher [employer] EDLea Modi, RN Miriam Contreras cw1 Jluis Martinez, MK GRAPHIC ARTS INSTRUCTOR pm1 Leona Rojas 5 Lydia Benjamin RN RN bs1 Sara Guevara sb2 Melyssa Lara Mark, RN RN mb3
--- NOTE | 2017-09-13 19:38 | EDPHYS ---
Physician Documentation [facility] Name: Ankit Rosales Age: 37 yrs Sex: Male : 1980 Arrival Date: 09/13/2017 Time: 15:06 Bed 18 Private MD: None, None ED Physician Wang Murdock HPI: 09/13 17:00 This 37 yrs old Male presents to ER via Ambulatory with complaints of pm1 Abdominal Pain. 17:00 The patient presents with abdominal pain in the left upper quadrant. Onset: The pm1 symptoms/episode began/occurred today. The symptoms do not radiate. Associated signs and symptoms: Pertinent positives: nausea and vomiting, Pertinent negatives: diarrhea. The symptoms are described as constant, sharp. Modifying factors: The symptoms are alleviated by nothing, the symptoms are aggravated by nothing. Severity of pain: in the emergency department the pain is actually worse. The patient has experienced similar episodes in the past, multiple times. The patient has been recently seen by a physician: with similar presenting complaints, Patient transferred to [facility] for acute pancreatitis with enlarged pseudocyst from prior CT examination. Patient discharged 3 days ago. Historical: - Allergies: 15:13 NKDA; aj - Home Meds: 15:13 None [Active]; aj - PMHx: 15:13 Cirrhosis; GALLSTONES; left leg DVT; Pancreatitis; aj - PSHx: 15:13 None; aj - Immunization history:: Adult Immunizations up to date. - Social history:: Smoking status: Patient uses tobacco products, smokes one pack cigarettes per day. - Ebola Screening: : Patient negative for fever greater than or equal to 101.5 degrees Fahrenheit, and additional compatible Ebola Virus Disease symptoms Patient denies exposure to infectious person Patient denies travel to an Ebola-affected area in the 21 days before illness onset No symptoms or risks identified at this time. ROS: 17:00 Constitutional: Negative for fever, chills, and weight loss, Eyes: Negative for injury, pm1 pain, redness, and discharge, Cardiovascular: Negative for chest pain, palpitations, and edema, Respiratory: Negative for shortness of breath, cough, wheezing, and pleuritic chest pain, Back: Negative for injury and pain. 17:00 : Negative for injury, bleeding, discharge, and swelling, MS/Extremity: Negative for injury and deformity, Skin: Negative for injury, rash, and discoloration, Neuro: Negative for headache, weakness, numbness, tingling, and seizure. 17:00 Abdomen/GI: Positive for abdominal pain, nausea and vomiting, of the left upper quadrant, Negative for diarrhea. Exam: 17:00 Constitutional: This is a well developed, well nourished patient who is awake, alert, pm1 and in no acute distress. Head/Face: Normocephalic, atraumatic. Eyes: Pupils equal round and reactive to light, extra-ocular motions intact. Lids and lashes normal. Conjunctiva and sclera are non-icteric and not injected. Cornea within normal limits. Periorbital areas with no swelling, redness, or edema. Neck: Trachea midline, no thyromegaly or masses palpated, and no cervical lymphadenopathy. Supple, full range of motion without nuchal rigidity, or vertebral point tenderness. No Meningismus. Chest/axilla: Normal chest wall appearance and motion. Nontender with no deformity. No lesions are appreciated. Cardiovascular: Regular rate and rhythm with a normal S1 and S2. No gallops, murmurs, or rubs. Normal PMI, no JVD. No pulse deficits. Respiratory: Lungs have equal breath sounds bilaterally, clear to auscultation and percussion. No rales, rhonchi or wheezes noted. No increased work of breathing, no retractions or nasal flaring. 17:00 Back: No spinal tenderness. No costovertebral tenderness. Full range of motion. Skin: Warm, dry with normal turgor. Normal color with no rashes, no lesions, and no evidence of cellulitis. MS/ Extremity: Pulses equal, no cyanosis. Neurovascular intact. Full, normal range of motion. 17:00 Abdomen/GI: Inspection: abdomen appears normal, bruising, is not seen, Negative Humptulips's sign, Bowel sounds: normal, Palpation: soft, moderate abdominal tenderness, in the left upper quadrant, mass, is not appreciated, rebound tenderness, is not appreciated. 17:00 Neuro: Orientation: is normal, Motor: is normal, moves all fours. Vital Signs: 15:13 BP 134 / 77; Pulse 105; Resp 24; Temp 97.6; Pulse Ox 100% on R/A; Weight 53.52 kg; aj Height 5 ft. 6 in. (167.64 cm); Pain 10/10; 17:20 BP 136 / 87; Pulse 78; Resp 20; Pulse Ox 99% on R/A; mh5 18:25 BP 128 / 72; Pulse 99; Resp 18; Pulse Ox 100% on R/A; mb3 19:12 BP 131 / 84; Pulse 104; Resp 16; Pulse Ox 100% ; mb3 19:58 BP 132 / 77; Pulse 84; Resp 16; Pulse Ox 99% on R/A; mb3 23:10 BP 134 / 82; Pulse 112; Resp 18; Pulse Ox 96% on R/A; mb3 15:13 Body Mass Index 19.05 (53.52 kg, 167.64 cm) aj MDM: 16:31 Patient medically screened. pm1 19:00 Physician consultation: Chito Galarza MD regarding consult, patient's condition, after a pm1 discussion of the case, a recommendation for transfer for higher level of care is made. 19:00 ED course: 06/25/2017 abdominal ultrasound negative for gallstones. pm1 19:28 Data reviewed: vital signs. Data interpreted: Pulse oximetry: on room air is 100 %. pm1 Interpretation: normal. Counseling: I had a detailed discussion with the patient and/or guardian regarding: the historical points, exam findings, and any diagnostic results supporting the discharge/admit diagnosis, lab results, radiology results, the need to transfer to another facility, for higher level of care. 20:28 [facility] 20[facility]29, regarding pm1 regarding transfer, patient's condition, and will see patient. 09/13 16:46 Order name: Creatinine for Radiology; Complete Time: 17:59 pm1 09/13 16:46 Order name: Basic Metabolic Panel; Complete Time: 17:59 pm1 09/13 16:46 Order name: CBC with Diff; Complete Time: 17:59 pm1 09/13 16:46 Order name: Hepatic Function; Complete Time: 17:59 pm1 09/13 16:46 Order name: Lipase; Complete Time: 17:59 pm1 09/13 17:33 Order name: CBC Smear Scan; Complete Time: 17:59 EDMS 09/13 18:00 Order name: CT Abd/Pelvis - W/Contrast: IV contrast only; Complete Time: 18:48 pm1 09/13 19:38 Order name: Type And Screen; Complete Time: 21:42 pm1 09/13 19:43 Order name: PT-INR; Complete Time: 20:40 pm1 09/13 19:43 Order name: Ptt, Activated; Complete Time: 20:40 pm1 09/13 16:46 Order name: IV Saline Lock; Complete Time: 17:25 pm1 09/13 16:46 Order name: Labs collected and sent; Complete Time: 17:25 pm1 09/13 16:46 Order name: Urine Dipstick-Ancillary (obtain specimen) pm1 Administered Medications: 17:24 Drug: NS 0.9% 1000 ml Route: IV; Rate: 1000 ml; Site: right antecubital; mb3 18:24 Follow up: Response: No adverse reaction; IV Status: Completed infusion; IV Intake: mb3 1000ml 19:18 Follow up: Response: No adverse reaction; IV Status: Completed infusion; IV Intake: mb3 1000ml 17:24 Drug: morphine 4 mg Route: IVP; Site: right antecubital; mb3 18:25 Follow up: Response: No adverse reaction mb3 19:18 Follow up: Response: No adverse reaction mb3 17:24 Drug: Zofran 4 mg Route: IVP; Site: right antecubital; mb3 18:25 Follow up: Response: No adverse reaction mb3 19:18 Follow up: Response: No adverse reaction mb3 18:20 Drug: morphine 4 mg Route: IVP; Site: right antecubital; mb3 19:19 Follow up: Response: No adverse reaction mb3 19:17 Drug: Ativan 1 mg Route: IVP; Site: right antecubital; mb3 19:19 Follow up: Response: No adverse reaction mb3 19:58 Drug: NS 0.9% 1000 ml Route: IV; Rate: 1000 ml; Site: right antecubital; mb3 20:50 Follow up: Response: No adverse reaction; IV Status: Completed infusion; IV Intake: mb3 1000ml 23:12 Follow up: Response: No adverse reaction; IV Status: Completed infusion; IV Intake: mb3 1000ml 20:49 Drug: morphine 4 mg Route: IVP; Site: right antecubital; mb3 20:50 Follow up: Response: No adverse reaction mb3 23:10 Drug: morphine 4 mg Route: IVP; Site: right antecubital; mb3 23:10 Follow up: BP 134 / 82; Pulse 112 bpm; Resp 18 bpm; Pulse Ox 96% RA; Response: No mb3 adverse reaction Disposition: 09/14 07:59 Co-signature as Attending Physician, Wang Murdock MD. Disposition: 09/13/17 19:37 Transfer ordered to [facility]. Diagnosis are Acute pancreatitis, Pseudocyst of pancreas - Hemorrhagic pseudocyst. - Reason for transfer: Higher level of care. - Accepting physician is [facility]. - Condition is Stable. - Problem is new. - Symptoms have improved. Signatures: Dispatcher [employer] EDLea Modi RN RN Jluis Valdez, INSULATION CUTTER INSULATION CUTTER pm1 Wang Murdock MD MD Socrates Moralez RN RN mb3 Corrections: (The following items were deleted from the chart) 09/13 23:15 19:37 09/13/2017 19:37 Transfer ordered to [facility]. Diagnosis is mb3 Acute pancreatitis; Pseudocyst of pancreas - Hemorrhagic pseudocyst. Reason for transfer: Higher level of care. Accepting physician is [facility]. Condition is Stable. Problem is new. Symptoms have improved. pm1
[2017-09-13 20:13] LABS: Protime INR 1.23
[2017-09-14 00:37] VITALS: TEMP 97.6
[2017-09-14 00:43] VITALS: BP 134/82; O2SAT 96
== END 2017-09-13 23:15 | disposition short-term general hospital (02) ==
LOC: ER 15:01
DX: K85.90 Acute pancreatitis without necrosis or infection, unspecified (principal); K86.3 Pseudocyst of pancreas; K86.89 Other specified diseases of pancreas; F17.210 Nicotine dependence, cigarettes, uncomplicated
CPT/HCPCS: 36415; 74177; 80048; 80076; 83690; 85025; 85610; 85730; 86850; 86900; 86901; 96361; 96374; 96375; 99285; J2405; J7030; Q9967

== ENCOUNTER 2017-10-04 13:11 | Inpatient (IN) | payer SELFPAY ==
--- OUTSIDE RECORDS SUMMARY | 2017-10-04 13:13 | XMS REPORT | Clinical Summary ---
:1980 Author Organization [facility] Address [address] [place] [address] Phone Care Team Providers Name Role Phone Unavailable Primary Care Provider Unavailable Allergies No Known Allergies Current Medications Prescription Sig. Disp. Refills Start Date End Date Status thiamine 100 MG Take 1 tablet 30 tablet 0 03/15/2017 03/15/2018 Active tablet (100 mg total) by mouth daily. apixaban (ELIQUIS) 5 Take 2.5 mg 09/19/2017 Discontinued mg Tab by mouth 2 tabletIndications: (two) times deep venous daily. thrombosis folic acid (FOLVITE) Take 1 tablet 30 tablet 0 03/15/2017 09/14/2017 Discontinued 1 MG tablet (1 mg total) by mouth daily. nicotine (NICODERM Place 1 patch 28 patch [...] as needed for up to 10 days. HYDROcodone-acetamin Take 1 tablet 30 tablet 0 09/09/2017 09/19/2017 Discontinued ophen (NORCO 10-325) by mouth 10-325 mg per every 6 (six) tabletIndications: hours as Pain needed for Pain. Max Daily Amount: 4 tablets apixaban (ELIQUIS) Take 2.5 mg 09/19/2017 Discontinued 2.5 mg Tab tablet by mouth daily. HYDROcodone-acetamin Take 1 tablet 20 tablet 0 09/19/2017 09/29/2017 ophen (NORCO 10-325) by mouth 10-325 mg per tablet every 6 (six) hours as needed for up to 10 days. Max Daily Amount: 4 tablets Active Problems Problem Noted Date Alcohol-induced acute pancreatitis without infection or necrosis 09/17/2017 Pseudocyst of pancreas 09/17/2017 History of DVT (deep vein thrombosis) 09/01/2017 Cystic mass of pancreas 03/09/2017 Pancreatitis 03/09/2017 Smoker 03/09/2017 Portal vein thrombosis 03/09/2017 Resolved Problems Problem Noted Date Resolved Date Thrombocytosis (HCC) 05/13/2017 09/01/2017 Abdominal pain 03/09/2017 09/01/2017 Alcohol abuse 03/09/2017 09/17/2017 Mass of pancreas 03/09/2017 09/01/2017 Hypokalemia 03/09/2017 09/01/2017 Encounters Date Type Specialty Care Team Description 09/14/2017 [facility] General Internal Zaida Martinez MD Alcohol abuse - Encounter Medicine Yahaira, (Primary 09/19/2017 Dario Dx);Cystic mass of TavaresMD pancreas;Pancreati Vanda Norton MD pseudocyst/cyst;He Naty Cruz, morrhagic Julissa Moseley MD pancreatitis 09/08/2017 Procedure Pass Gastroenterology 09/08/2017 Surgery Gastroenterology Bessy Hernandez UPPER ENDOSCOPY MD Fredi 09/07/2017 Anesthesia Event Gastroenterology Shikha Motley MD 09/01/2017 Orders Only General Internal Medicine 08/31/2017 [facility] Talisha Abad Alcohol - Encounter MD Adriana abuse;Cystic mass 09/09/2017 [place], of [place] pancreas;History MD Nayely of DVT (deep vein Michael, Larry thrombosis);Kim Bishop MD l-induced acute Farrukh Ryan MD pancreatitis Mackenzie Riveraa without infection MD Bradley or necrosis;Smoker;Po rtal vein thrombosis 05/21/2017 Procedure Pass Gastroenterology 05/19/2017 Anesthesia Event Gastroenterology Dorota Cortes MD 05/13/2017 [facility] Internal Radha, Ulysses, Alcohol-induced - Encounter Medicine acute 05/20/2017 Rafaela Samson pancreatitisMD unspecified Diomedes Alvarado complication MD Lul status;Alcohol abuse;Cystic mass of pancreas;Smoker;Th rombocytosis (HCC);Alcohol-janiya segundo acute pancreatitis without infection or necrosis;Smoking 03/13/2017 Procedure Pass Gastroenterology 03/11/2017 Procedure Pass Gastroenterology 03/10/2017 Anesthesia Event Gastroenterology Юлия Crump MD 03/09/2017 [facility] Internal [facility] Alcohol - Encounter Medicine MD Araceli abuse;Cystic mass 03/14/2017 Ulysses Garcia of MD pancreas;Hypokalem Yaneth Napier ia;Alcohol-induced MD acute pancreatitis, unspecified complication status;Portal vein thrombosis after 10/03/2016 Family History Medical History Relation Name Comments Hypertension Father Relation Name Status Comments Father Social History Tobacco Use Types Packs/Day Years Used Date Current Every Day Smoker Cigarettes 1 Smokeless Tobacco: Never Used Tobacco Cessation: Ready to Quit: No; Counseling Given: No Alcohol Use Drinks/Week oz/Week Comments Yes 42 Cans of beer 25.2 reports stopped drinking 08/31/17 Sex Assigned at Date Recorded Not on file Last Filed Vital Signs Vital Sign Reading Time Taken Blood Pressure 132/79 09/19/2017 12:24 PM CDT Pulse 77 09/19/2017 12:24 PM CDT Temperature 37 C (98.6 F) 09/19/2017 12:24 PM CDT Respiratory Rate 20 09/19/2017 12:24 PM CDT Oxygen Saturation 100% 09/19/2017 12:24 PM CDT Inhaled Oxygen Concentration - - Weight 56.2 kg (124 lb) 09/19/2017 6:00 AM CDT Height 167.6 cm (5' 6") 09/18/2017 6:00 AM CDT Body Mass Index 20.01 09/19/2017 6:00 AM CDT Plan of Treatment Not on file Procedures Procedure Name Priority Date/Time Associated Diagnosis Comments UPPER ENDOSCOPY,FNA 09/08/2017 5:00 PM Pancreatic pseudocyst W/ULTRASOUND CDT UPPER ENDOSCOPY 09/08/2017 5:00 PM Pancreatic pseudocyst CDT after 10/03/2016 Results Calcium, Ionized (09/19/2017 6:02 AM)Only the most recent of3 resultswithin the time period is included. Component Value Ref Range Calcium, Ion 1.11 (L) 1.12 - 1.27 mmol/L pH, Blood 7.40 Specimen Performing Laboratory Blood - Line, Venous [address] [address] Phosphorus (09/19/2017 6:02 AM)Only the most recent of10 resultswithin the time period is included. Component Value Ref Range Phosphorus 3.0 2.3 - 4.7 mg/dL Specimen Performing Laboratory Blood - Line, Venous [address] [address] Magnesium (09/19/2017 6:02 AM)Only the most recent of11 resultswithin the time period is included. Component Value Ref Range Magnesium 2.0 1.6 - 2.6 mg/dL Specimen Performing Laboratory Blood - Line, Venous [address] [address] Basic Metabolic Panel (09/19/2017 6:02 AM)Only the most recent of19 resultswithin the time period is included. Component Value Ref Range Sodium 138 136 - 145 meq/L Potassium 3.8 3.5 - 5.1 meq/L Chloride 109 (H) 98 - 107 meq/L CO2 22 22 - 29 meq/L BUN 10 7 - 21 mg/dL Creatinine 0.53 (L) 0.57 - 1.25 mg/dL Glucose 88 70 - 105 mg/dL Calcium 8.5 8.4 - 10.2 mg/dL EGFR 174Comment: ESTIMATED GFR IS NOT ACCURATE mL/min/1.73 sq m CREATININE CLEARANCE IN PREDICTING GLOMERULAR FILTRATION RATE. ESTIMATED GFR IS NOT APPLICABLE FOR DIALYSIS PATIENTS. Specimen Performing Laboratory Blood - Line, Venous [address] [address] CBC with platelet count + automated diff (09/17/2017 3:54 AM)Only the most recent of17 resultswithin the time period is included. Component Value Ref Range WBC 10.1 3.5 - 10.5 K/L RBC 4.16 (L) 4.63 - 6.08 M/L Hemoglobin 12.6 (L) 13.7 - 17.5 GM/DL Hematocrit 37.3 (L) 40.1 - 51.0 % MCV 89.7 79.0 - 92.2 fL MCH 30.3 25.7 - 32.2 pg MCHC 33.8 32.3 - 36.5 GM/DL RDW 14.0 11.6 - 14.4 % Platelets 541 (H) 150 - 450 K/CU MM MPV 9.1 (L) 9.4 - 12.4 fL nRBC 0 0 - 0 /100 WBC % Neutros 66 % % Lymphs 20 % % Monos 10 % % Eos 3 % % Baso 1 % # Neutros 6.65 (H) 1.78 - 5.38 K/L # Lymphs 2.05 1.32 - 3.57 K/L # Monos 1.03 (H) 0.30 - 0.82 K/L # Eos 0.26 0.04 - 0.54 K/L # Baso 0.10 (H) 0.01 - 0.08 K/L Immature Granulocytes-Relative 0 0 - 1 % Specimen Performing Laboratory Blood - Line, Venous [facility] [address] [address] CBC with platelet count + automated diff (09/17/2017 3:54 AM)Only the most recent of17 resultswithin the time period is included. Specimen Performing Laboratory Blood Narrative The following orders were created for panel order CBC with platelet count + automated diff. Procedure Abnormality Status --------- ------ CBC with platelet count ...[[id number]]AbnormalFinal result Please view results for these tests on the individual orders. US abdominal with doppler (09/17/2017 3:00 AM) Specimen Performing Laboratory Yedda Narrative FINAL REPORT Comparison exam: Right upper quadrant ultrasound 09/01/2017. CT scan of the abdomen and pelvis 09/03/2017. Grayscale imaging, spectral Doppler imaging, and color Doppler imaging were performed. The liver is normal in size, morphology, and echotexture. No intrahepatic biliary ductal dilatation.Normal spleen. Normal gallbladder. Patent main portal vein. Incomplete visualization of the pancreas. Complex cystic lesion in the region of the pancreatic head measuring 5.6 x 3.1 x 4.5 cm. Dilated pancreatic duct measuring 5 mm. Normal caliber aorta. No ascites. Normal kidneys. Patent IVC and hepatic veins. No pleural effusions. The measurements are as follows: Liver : 15.5 cm Spleen : 10.5 cm Gallbladder wall : 2 mm Common bile duct : 4 mm Portal vein diameter : 12 mm Right kidney : 12.7 x 5.1 x 5.5 cm Left kidney : 12.6 x 5.2 x 6.4 cm Doppler: Portal vein velocity: Hepatopetal. 28 cm/s Right and left portal vein flow: Hepatopetal Splenic vein flow : Hepatopetal Hepatic artery resistive index: 0.6 Hepatic veins and IVC: Patent Impression: 1. Complex cystic lesion in the region of the pancreatic head measuring 5.6 x 3.1 x 4.5 cm, similar in size to the CT scan of 09/03/2017. Pseudocyst is favored. 2. Patent portal venous system with hepatopetal flow. 3. Dilated pancreatic duct measuring 5 mm. Signed: Gera Gaspar MD Report Verified Date/Time:09/17/2017 04:01:12 Reading Location: [address] Consult Reading Room Procedure Note Interface, External Ris In - 09/17/2017 4:03 AM CDT FINAL REPORT Comparison exam: Right upper quadrant ultrasound 09/01/2017. CT scan of the abdomen and pelvis 09/03/2017. Grayscale imaging, spectral Doppler imaging, and color Doppler imaging were performed. The liver is normal in size, morphology, and echotexture. No intrahepatic biliary ductal dilatation. Normal spleen. Normal gallbladder. Patent main portal vein. Incomplete visualization of the pancreas. Complex cystic lesion in the region of the pancreatic head measuring 5.6 x 3.1 x 4.5 cm. Dilated pancreatic duct measuring 5 mm. Normal caliber aorta. No ascites. Normal kidneys. Patent IVC and hepatic veins. No pleural effusions. The measurements are as follows: Liver : 15.5 cm Spleen : 10.5 cm Gallbladder wall : 2 mm Common bile duct : 4 mm Portal vein diameter : 12 mm Right kidney : 12.7 x 5.1 x 5.5 cm Left kidney : 12.6 x 5.2 x 6.4 cm Doppler: Portal vein velocity: Hepatopetal. 28 cm/s Right and left portal vein flow: Hepatopetal Splenic vein flow : Hepatopetal Hepatic artery resistive index: 0.6 Hepatic veins and IVC: Patent Impression: 1. Complex cystic lesion in the region of the pancreatic head measuring 5.6 x 3.1 x 4.5 cm, similar in size to the CT scan of 09/03/2017. Pseudocyst is favored. 2. Patent portal venous system with hepatopetal flow. 3. Dilated pancreatic duct measuring 5 mm. Signed: Gera Gaspar MD Report Verified Date/Time: 09/17/2017 04:01:12 Reading Location: [facility] B1 [id number] Ortho Consult Reading Room Embolization Arterial (09/16/2017 6:00 PM) Specimen Performing Laboratory Yedda Narrative FINAL REPORT Mesenteric angiogram and embolization History: 37-year-old male with hemorrhagic pancreatic pseudocyst. Modality: Ultrasound and fluoroscopy. Sedation: Moderate sedation was administered. 2.5 mg of Versed and 125 mcg of fentanyl IV was used for moderate sedation monitored under my direction. Total intra-service time of sedation [id number]. The patient's vital signs were monitored throughout the procedure and recorded in the patient's medical record by the nurse. Anesthesia:Two percent Lidocaine without epinephrine. Approach:Right common femoral artery. Estimated blood loss:< 5 cc. Specimen: None. photocomposing machine operator: Michael Ortega MD. Computer Equipment Repairer: None.. Fluoroscopy Time: 31.7 min. Reference Air Kerma (Ka, r): 456.5 mGy. Technique: Informed written consent was obtained. Discussion of risks, benefits, and alternatives were made with the patient. The patient expressed understanding and agreed to proceed.A universal timeout was performed prior to starting the procedure.All elements maximal sterile barrier technique was utilized for this procedure, including utilization of sterile scrub solution for skin prep, a large sterile sheet to cover the areas of the patient that were not prepped, and hand hygiene, mask, head covering, and sterile gown for performing radiologist and scrub technologist. Initial ultrasound images demonstrated patent right common femoral artery. Using ultrasound guidance, following acquisition of permanent images, the right common femoral artery was accessed using a 21-gauge micropuncture set in standard fashion. The micropuncture sheath was exchanged over 0.035 Bentson wire for a 5 [place]an by 10 cm vascular sheath. A 5 [place] Sutton B catheter was used to select the celiac trunk and SMA for multiple DSA runs. The Sutton catheter was then remanipulated into the celiac trunk. Next, using a 2.4 [place]an microcatheter and 0.016 inch microwire, the gastroduodenal artery was cannulated. Subsequently, the catheter was manipulated into the feeding branch supplying the abnormal area of hyperemia/vessel irregularity. From this location, embolization was performed using Interlock microcoils. The microcatheter was retracted into the GDA proximally and postdilatation DSA was performed. Next, the Sutton base catheter was manipulated into the SMA. Using a 2. [place]an directional microcatheter and 0.014 inch microwire, the feeding artery arising off the SMA supplying the abnormal area of hyperemia/vessel irregularity was cannulated. From this location, and mineralization was performed using Interlock and Concerto microcoils. The microcatheter was retracted into the SMA proximally and postembolization DSA was performed. All catheters and wires were removed. Contrast was injected through the right femoral sheath. Hemostasis was obtained using a Mynx closure device. Vital signs were monitored throughout the procedure by a nurse, and remained stable.The patient tolerated the procedure well and left the department in the same condition. FINDINGS: 1. Celiac and SMA injections demonstrate no evidence for active extravasation. However, hyperemia and abnormal vessel irregularity was noted within the right upper quadrant in the region of the known hemorrhagic pseudocyst. Findings are suspicious for recent bleeding. Feeding branches noted arising off the GDA and SMA. 2. Successful coil embolization of the abnormal area of hyperemia and vessel configuration within the right upper quadrant via a feeding branch arising off the GDA and feeding branch arising off the SMA. Post embolization DSA images demonstrate no further abnormal areas of hyperemia or vessel irregularity. 3. Right femoral sheath contrast injection demonstrates patent right common femoral artery and puncture amenable to closure device. Impression: Successful mesenteric angiogram demonstrating no evidence for active extravasation. Successful coil embolization of an area of suspected recent bleeding via feeding branches off the GDA and SMA as detailed above. Signed: Michael Ortega MD Report Verified Date/Time:09/20/2017 16:25:06 Reading Location: [place] [address] Angio Body Reading Room Procedure Note Interface, External Ris In - 09/20/2017 4:27 PM CDT FINAL REPORT Mesenteric angiogram and embolization History: 37-year-old male with hemorrhagic pancreatic pseudocyst. Modality: Ultrasound and fluoroscopy. Sedation: Moderate sedation was administered. 2.5 mg of Versed and 125 mcg of fentanyl IV was used for moderate sedation monitored under my direction. Total intra-service time of sedation was 90 minutes. The patient's vital signs were monitored throughout the procedure and recorded in the patient's medical record by the nurse. Anesthesia: Two percent Lidocaine without epinephrine. Approach: Right common femoral artery. Estimated blood loss: < 5 cc. Specimen: None. photocomposing machine operator: Michael Ortega MD. Computer Equipment Repairer: None.. Fluoroscopy Time: 31.7 min. Reference Air Kerma (Ka, r): 456.5 mGy. Technique: Informed written consent was obtained. Discussion of risks, benefits, and alternatives were made with the patient. The patient expressed understanding and agreed to proceed. A universal timeout was performed prior to starting the procedure. All elements maximal sterile barrier technique was utilized for this procedure, including utilization of sterile scrub solution for skin prep, a large sterile sheet to cover the areas of the patient that were not prepped, and hand hygiene, mask, head covering, and sterile gown for performing radiologist and scrub technologist. Initial ultrasound images demonstrated patent right common femoral artery. Using ultrasound guidance, following acquisition of permanent images, the right common femoral artery was accessed using a 21-gauge micropuncture set in standard fashion. The micropuncture sheath was exchanged over 0.035 Bentson wire for a 5 [place]an by 10 cm vascular sheath. A 5 [place] Sutton B catheter was used to select the celiac trunk and SMA for multiple DSA runs. The Sutton catheter was then remanipulated into the celiac trunk. Next, using a 2.4 [place]an microcatheter and 0.016 inch microwire, the gastroduodenal artery was cannulated. Subsequently, the catheter was manipulated into the feeding branch supplying the abnormal area of hyperemia/vessel irregularity. From this location, embolization was performed using Interlock microcoils. The microcatheter was retracted into the GDA proximally and postdilatation DSA was performed. Next, the Sutton base catheter was manipulated into the SMA. Using a 2. [place]an directional microcatheter and 0.014 inch microwire, the feeding artery arising off the SMA supplying the abnormal area of hyperemia/vessel irregularity was cannulated. From this location, and mineralization was performed using Interlock and Concerto microcoils. The microcatheter was retracted into the SMA proximally and postembolization DSA was performed. All catheters and wires were removed. Contrast was injected through the right femoral sheath. Hemostasis was obtained using a Mynx closure device. Vital signs were monitored throughout the procedure by a nurse, and remained stable. The patient tolerated the procedure well and left the department in the same condition. FINDINGS: 1. Celiac and SMA injections demonstrate no evidence for active extravasation. However, hyperemia and abnormal vessel irregularity was noted within the right upper quadrant in the region of the known hemorrhagic pseudocyst. Findings are suspicious for recent bleeding. Feeding branches noted arising off the GDA and SMA. 2. Successful coil embolization of the abnormal area of hyperemia and vessel configuration within the right upper quadrant via a feeding branch arising off the GDA and feeding branch arising off the SMA. Post embolization DSA images demonstrate no further abnormal areas of hyperemia or vessel irregularity. 3. Right femoral sheath contrast injection demonstrates patent right common femoral artery and puncture amenable to closure device. Impression: Successful mesenteric angiogram demonstrating no evidence for active extravasation. Successful coil embolization of an area of suspected recent bleeding via feeding branches off the GDA and SMA as detailed above. Signed: Michael Ortega MD Report Verified Date/Time: 09/20/2017 16:25:06 Reading Location: [place] [address] Angio Body Reading Room C-Reactive Protein (09/16/2017 12:32 PM)Only the most recent of2 resultswithin the time period is included. Component Value Ref Range CRP 0.97 (H) 0.00 - 0.50 mg/dL Specimen Performing Laboratory Blood - Central Venous Line [address] [address] PT/aPTT (09/16/2017 10:54 AM) Component Value Ref Range Protime 16.2 (H) 11.7 - 14.7 seconds INR 1.3 <=5.9 PTT 30.2 22.5 - 36.0 seconds Specimen Performing Laboratory Blood - Central Venous Line [address] [address] Narrative RECOMMENDED COUMADIN/WARFARIN INR THERAPY RANGES STANDARD DOSE: 2.0 - 3.0 Includes: PROPHYLAXIS for venous thrombosis, systemic embolization; TREATMENT for venous thrombosis and/or pulmonary embolus. HIGH RISK: Target INR is 2.5-3.5 for patients with mechanical heart valves. Triglycerides (09/16/2017 4:20 AM)Only the most recent of2 resultswithin the time period is included. Component Value Ref Range Triglycerides 78 mg/dL Specimen Performing Laboratory Blood - Line, [address] [address] Narrative TRIGLYCERIDE REFERENCE RANGE Low Risk<150 Borderline Risk 150-199 High [id number] Very High Risk >=500 Lipase (09/16/2017 4:20 AM)Only the most recent of6 resultswithin the time period is included. Component Value Ref Range Lipase 114 (H) 8 - 78 U/L Specimen Performing Laboratory Blood - Line, [address] [address] Hepatic function panel (09/16/2017 4:20 AM)Only the most recent of6 resultswithin the time period is included. Component Value Ref Range Protein, Total 6.5 6.0 - 8.3 gm/dL Albumin 3.7 3.5 - 5.0 g/dL Total Bilirubin 0.3 0.2 - 1.2 mg/dL Bilirubin, Direct 0.1 0.1 - 0.5 mg/dL Alkaline Phosphatase 79 40 - 150 U/L AST 14 5 - 34 U/L ALT 9 6 - 55 U/L Specimen Performing Laboratory Blood - Line, Venous [address] [address] XR chest 1 view portable / bedside (09/15/2017 7:43 PM) Specimen Performing Laboratory GE RIS Narrative FINAL REPORT History: PICC line placement. Comparison: None. Findings: 2 frontal views of the chest are submitted. A left PICC line tip overlies the SVC. The cardiomediastinal contours are unremarkable. There is no focal consolidation, pneumothorax, large pleural effusion or evidence of overt pulmonary edema. There is no acute bony abnormality. Signed: George Keys MD Report Verified Date/Time:09/15/2017 19:53:01 Reading Location: [address] Reading Room Procedure Note Interface, External Ris In - 09/15/2017 7:55 PM CDT FINAL REPORT History: PICC line placement. Comparison: None. Findings: 2 frontal views of the chest are submitted. A left PICC line tip overlies the SVC. The cardiomediastinal contours are unremarkable. There is no focal consolidation, pneumothorax, large pleural effusion or evidence of overt pulmonary edema. There is no acute bony abnormality. Signed: George Keys MD Report Verified Date/Time: 09/15/2017 19:53:01 Reading Location: [address] Reading Room PHERAL VASCULAR REPORT - SCAN (09/15/2017 5:20 PM)Venous doppler legs bilateral (09/15/2017 2:49 PM) Component Value Ref Range Ejection Fraction Specimen Performing Laboratory [facility] ECHO HEART[facility] MKCKESSON CPACS Impressions Right Impression 1. There is no deep venous obstruction in the common femoral, profunda femoral, femoral, popliteal, posterior tibial or peroneal veins. 2. There is no superficial venous obstruction in the great saphenous vein. Left Impression 1. There is no deep venous obstruction in the common femoral, profunda femoral, femoral, popliteal, posterior tibial or peroneal veins. 2. There is no superficial venous obstruction in the great saphenous vein. Conclusions Summary Venous duplex imaging and compression of the bilateral lower extremities were performed. The veins were adequately visualized. The bilateral venous systems were patent and compressible with no evidence of thrombus. The venous Doppler waveforms were pulsatile indicating possible elevated right heart filling pressure . Signature Velocities are measured in cm/s ; Diameters are measured in cm Narrative [facility] - Lower Extremities DVT Study Demographics Patient NameANKIT ROSALES Date of Study09/15/2017 Visit [id number] Male of Birth1980 Number Referring Julissa AlfonsoNancy, Room [id number] Physician Trawl Net Maker David Chan. Interpreting Prema Gabriel, CANDELARIO, Buddy, GEETA Procedure Type of Study: Veins: Lower Extremities DVT Study, VENOUS DOPPLER LEG, BILATERAL. Indications for Study:Prior history of DVT . Patient Status:CHRIS. Study Location:Vascular Lab. Technical Quality:Adequate visualization. Risk Factors History of Disease +---------+----+ + !Diagnosis!Date!Comments ! +---------+----+ + !Other!!ETOH, PANCREATITIS, SMOKER ! +---------+----+ + Procedure Note Interface, External Ris In - 09/15/2017 4:50 PM CDT [facility] - Lower Extremities DVT Study Demographics Patient Name ANKIT ROSALES Date of Study 09/15/2017 Age 37 Visit Number [id number] Gender Male Date of 1980 Number Referring Julissa Arguelles, Room Number 2161 Physician Trawl Net Maker David Chan. Interpreting Prema Gabriel T, [facility] Physician , RPVI Procedure Type of Study: Veins: Lower Extremities DVT Study, VENOUS DOPPLER LEG, BILATERAL. Indications for Study:Prior history of DVT . Patient Status:CHRIS. Study Location:Vascular Lab. Technical Quality:Adequate visualization. Risk Factors History of Disease +---------+----+ + !Diagnosis!Date!Comments ! +---------+----+ + !Other ! !ETOH, PANCREATITIS, SMOKER ! +---------+----+ + Impressions Right Impression 1. There is no deep venous obstruction in the common femoral, profunda femoral, femoral, popliteal, posterior tibial or peroneal veins. 2. There is no superficial venous obstruction in the great saphenous vein. Left Impression 1. There is no deep venous obstruction in the common femoral, profunda femoral, femoral, popliteal, posterior tibial or peroneal veins. 2. There is no superficial venous obstruction in the great saphenous vein. Conclusions Summary Venous duplex imaging and compression of the bilateral lower extremities were performed. The veins were adequately visualized. The bilateral venous systems were patent and compressible with no evidence of thrombus. The venous Doppler waveforms were pulsatile indicating possible elevated right heart filling pressure . Signature Velocities are measured in cm/s ; Diameters are measured in cm Pancreatic elastase, fecal (09/15/2017 10:36 AM) Component Value Ref Range Pancreatic Elastase-1 174 (L) mcg/g Comment: Adult and Pediatric Reference Ranges for Pancreatic Elastase-1: Normal:>200 mcg/g Moderate Pancreatic Insufficiency: 100-200 mcg/g Severe Pancreatic Insufficiency:<100 mcg/g Elastase-1 (E-1) assay results are expressed in mcg/g, which represent mcg E1/g feces. It is not necessary to interrupt enzyme substitution therapy. Specimen Performing Laboratory Stool [facility] [address] [address] Narrative Performing Lab [facility] [address] [address] Enrique Holliday MD, PhD, GIDEON Peripheral Blood Smear - Path Review (09/14/2017 4:37 AM) Component Value Ref Range Pathologist Review Thrombocytosis. No circulating blasts or increased schistocytes. Clinical follow up recommended. Pathologist: Enoch Saba M.D.(electronic signature) Specimen Performing Laboratory [address] [address] Vitamin B12 and Folate (09/14/2017 4:37 AM) Component Value Ref Range Vitamin B12 527 213 - 816 pg/mL Folate 12.3 >=7.0 ng/mL Specimen Performing Laboratory Blood [address] [address] RHYTHM STRIP - SCAN (09/10/2017 10:40 AM)aPTT (09/09/2017 9:37 AM)Only the most recent of9 resultswithin the time period is included. Component Value Ref Range PTT 44.5 (H) 22.5 - 36.0 seconds Specimen Performing Laboratory Blood [address] [address] REPORT OF PROCEDURE - ENDOSCOPY URL (09/08/2017 5:47 PM)Fine Needle Aspirate ( 09/08/2017 5:43 PM) Component Value Ref Range Cytology See Separate Report Specimen Performing Laboratory Fine Needle Aspirate - [address] [address] Fine Needle Aspirate by Clinician (09/08/2017 5:43 PM) Component Value Ref Range Case Report Medical Cytology Report Case: [id number] Authorizing Provider:Bessy Hernandez MDCollected: 09/08/2017 1743 Ordering Location: [address] Received: 09/08/2017 1814 Service Pathologist: Mir Anthony MD Specimen:Pancreas DIAGNOSIS PANCREAS HEAD CYSTIC LESION FNA BY CLINICIAN (CYTOSPINS AND CELL BLOCK OF ASPIRATE): - NO MALIGNANT CELLS IDENTIFIED - The mucin stain shows focal weak staining Signing Pathologist Direct Phone Line: [phone] COMMENT The cell block shows non-inflammed pancreatic acinar tissue. CPT Code(s) 51000, 26939, 11710 CLINICAL DATA (4.9 X 4.8 cm) Cystic lesion in the pancreatic head SPECIMEN SOURCE PANCREAS HEAD CYSTIC LESION FNA GROSS DESCRIPTION 25 mls in cytorich red; 4 cytospins, 1 mucin stain, cell block Collected: [id number] Received: [id number] Technical component was performed at [facility], Department of Pathology, [address] [place] [address], Professional component was performed [facility], at Department of Pathology, [address] [place] [address], Specimen Performing Laboratory Fine Needle Aspirate - [address] [address] [address] abd/pelvis - pancreas evaluation (09/04/2017 12:20 [...] MD Report Verified Date/Time:09/04/2017 00:22:52 Reading Location: [address] Reading Room Procedure Note Interface, External [...] pancreatic duct. No vascular compromise. Signed: JR Robin, Jesus Manuel FROST Report Verified Date/Time: 09/04/2017 00:22:52 Reading Location: [address] Reading Room -Glucose meter (09/02/2017 7:29 AM)Only the most recent of2 resultswithin the time period is included. Component Value Ref Range POC-Glucose Meter 140 (H)Comment: TESTED AT [address] 70 - 110 mg/[place] [address] Specimen Performing Laboratory Blood [facility] [address] [address] ECG 12 lead (09/01/2017 6:18 PM) Specimen Performing Laboratory GE MUSE Narrative Ventricular Rate 77 BPM Atrial Rate 77 BPM P-R Interval 162 ms QRS Duration 98 ms Q-T Interval 404 ms QTC Calculation(Bazett) 457 ms P [place] -8 degrees R [place] 30 degrees T [place] -1 degrees Normal sinus rhythm RSR' or QR pattern in V1 suggests right ventricular conduction delay Cannot rule out Anterior infarct , age undetermined Abnormal ECG No previous ECGs available Confirmed by MD [place] ([id number]) on 09/02/2017 2:25:25 PM Procedure Note Interface, External Ris In - 09/02/2017 2:25 PM CDT Ventricular Rate 77 BPM Atrial Rate 77 BPM P-R Interval 162 ms QRS Duration 98 ms Q-T Interval 404 ms QTC Calculation(Bazett) 457 ms P [place] -8 degrees R [place] 30 degrees T [place] -1 degrees Normal sinus rhythm RSR' or QR pattern in V1 suggests right ventricular conduction delay Cannot rule out Anterior infarct , age undetermined Abnormal ECG No previous ECGs available Confirmed by MD [place] ([id number]) on 09/02/2017 2:25:25 PM US abdomen limited (09/01/2017 5:23 AM) Specimen Performing Laboratory [employer] RIS Narrative FINAL REPORT INDICATION: 37-year-old male [...] MD Report Verified Date/Time:09/01/2017 09:53:12 Reading Location: [facility] [id number] Ultrasound Reading Room Procedure Note Interface, External [...] Report Verified Date/Time: 09/01/2017 09:53:12 Reading Location: [facility] P006 Ultrasound Reading Room /Free T4 If Indicated (09/01/2017 3:12 AM) Component Value Ref Range TSH 0.36 0.35 - 4.94 uIU/mL Specimen Performing Laboratory Blood - Arm, [address] [address] Troponin I (09/01/2017 3:12 AM) Component Value Ref Range Troponin I <0.01 0.00 - 0.03 ng/mL Specimen Performing Laboratory Blood - Arm, [address] [address] Narrative Troponin I (TnI) levels must be [...] 15 mm/HR Specimen Performing Laboratory Blood - Arm, [address] [address] Hemoglobin A1c (09/01/2017 3:12 AM) Component Value Ref Range Hemoglobin A1C 4.7 4.3 - 6.1 % Specimen Performing Laboratory Blood - Arm, [address] [address] Creatine Kinase (CK), Total and MB (09/01/2017 3:12 AM) Component Value Ref Range Total CK 29 29 - 200 U/L CK-MB 0.4 0.0 - 6.6 ng/mL MB Relative Index 1.4 % Specimen Performing Laboratory Blood - Arm, [address] [address] Narrative CK-MB Reference Range: <6.7Normal 6.7-10.0Borderline >10.0 Abnormal Amylase (09/01/2017 3:12 AM) Component Value Ref Range Amylase 383 (H) 25 - 125 U/L Specimen Performing Laboratory Blood - Arm, [address] [address] Lipid panel (09/01/2017 3:12 AM)Only the most recent of2 resultswithin the time period is included. Component Value Ref Range Triglycerides 76 mg/dL Cholesterol 118 mg/dL HDL 37 mg/dL LDL Calculated 66 mg/dL Specimen Performing Laboratory Blood - Arm, [address] [address] Narrative Triglyceride Reference Range: Low Risk <150 [id number] High Risk 200-499 Very High Risk>=500 Cholesterol Reference Range: Low Risk <200 [id number] High Risk>240 HDL Cholesterol Reference Range: Low Risk >=60 High Risk <40 LDL Cholesterol Reference Range: Optimal<100 Near [id number] Very High >=190 Blood culture (09/01/2017 3:11 AM)Only the most recent of2 resultswithin the time period is included. Component Value Ref Range Result No growth in 5 days Specimen Performing Laboratory Blood - Arm, Right [address] [address] EKG-SCANNED (05/22/2017 12:43 PM)Comprehensive metabolic panel (05/19/2017 [...] FOR DIALYSIS PATIENTS. Specimen Performing Laboratory Blood [address] [address] CBC (Hemogram only) (05/17/2017 4:26 AM)Only the [...] Performing Laboratory Blood - Arm, Right [facility] [address] [place] [address] MR abdomen without IV contrast MRCP (03/13/2017 11:33 AM) Specimen Performing Laboratory GE RIS Narrative FINAL REPORT MRI of the abdomen, [...] MD Report Verified Date/Time:03/13/2017 12:25:41 Reading Location: [address] Consult Reading Room Procedure Note Interface, External Ris In - 03/13/2017 12:27 PM RESIDENTIAL PROGRAM WORKER FINAL REPORT MRI of the abdomen, MRCP. [...] Report Verified Date/Time: 03/13/2017 12:25:41 Reading Location: [facility] [id number] [facility] Consult Reading Room Manual Differential (03/11/2017 5:44 AM)Only the most recent of2 resultswithin the time period is included. Component Value Ref Range Total Counted WBC Morphology Normal Platelet Morphology Normal RBC Morphology Normal Specimen Performing Laboratory Blood - Line, Venous [address] [address] Prothrombin time/INR (03/09/2017 9:54 AM) Component Value Ref Range Protime 14.3 11.7 - 14.7 seconds INR 1.1 <=5.9 Specimen Performing Laboratory Blood [address] [address] Narrative RECOMMENDED COUMADIN/WARFARIN INR THERAPY RANGES STANDARD DOSE: 2.0 - 3.0 Includes: PROPHYLAXIS for venous thrombosis, systemic embolization; TREATMENT for venous thrombosis and/or pulmonary embolus. HIGH RISK: Target INR is 2.5-3.5 for patients with mechanical heart valves. after 10/03/2016
--- OUTSIDE RECORDS SUMMARY | 2017-10-04 13:16 | XMS REPORT ---
[...] Status Dosage System Date Date Apixaban [facility] [address]-40 2.5 MG Orally Active not defined Tramadol HCl [facility] [id number] 50 MG Orally Active 1 tablet every 6 hrs as needed Results No Known Results Summary Purpose eClinicalWorks Submission
--- OUTSIDE RECORDS SUMMARY | 2017-10-04 13:16 | XMS REPORT ---
:1980 [facility] [address] [place] [address] Care Team Providers Name Role Phone VANI FLORES Unavailable Unavailable SEEMA SPANN Unavailable Unavailable LIZ, LILIA Unavailable Unavailable MELISSAPATTI Unavailable Unavailable Problems This patient has no known problems. Allergies, Adverse Reactions, Alerts This patient has no known allergies or adverse reactions. Medications This patient has no known medications. 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 [...] blood loss: < 5 cc. Specimen: None. laundry bag punch operator: Michael Ortega MD. Narrow Gauge Brakeman: None.. Fluoroscopy Time: 31.7 min.Reference Air Kerma (Ka, r): 456.5 mGy. Technique: [...] over 0.035 Bentson wire for a 5 Nepalese by 10 cm vascular sheath. A 5 Nepalese Sutton B catheter was used to select the celiac trunk and SMA for multiple DSA runs. The Sutton catheter was then remanipulated into the celiac trunk. Next, using a 2.4 Nepalese microcatheter and 0.016 inch microwire, the gastroduodenal artery was cannulated. Subsequently, the catheter was manipulated into the feeding branch supplying the abnormal area of hyperemia/vessel irregularity. From this location, embolization was performed using Interlock microcoils. The microcatheter was retracted into the GDA proximally and postdilatation DSA was performed. Next, the Sutton base catheter was manipulated into the SMA. Using a 2. Nepalese directional microcatheter and 0.014 inch microwire, the [...] branches noted arising off the GDA and SMA.2. Successful coil embolization of the abnormal area of hyperemia and vessel configuration within the right upper quadrant via a feeding branch arising off the GDA and feeding branch arising off the SMA. Post embolization DSA images demonstrate no further abnormal areas of hyperemia or vessel irregularity.3. Right femoral sheath contrast injection demonstrates patent right common femoral artery and puncture amenable to closure device. Impression: Successful mesenteric angiogram demonstrating no evidence for active extravasation. Successful coil embolization of an area of suspected recent bleeding via feeding branches off the GDA and SMA as detailed above. Signed: Michael Ortegaort Verified Date/Time: 09/20/2017 16:25:06 Reading Location: [place] [address] Angio Body Reading Room IUM, IONIZED 2017-09-19 07:02:00 Test Item Value Reference Range Comments CALCIUM IONIZED (BEAKER) (test vigm=068) 1.11 mmol/L 1.12-1.27 PH, BLOOD (BEAKER) (test cnhg=0933) 7.40 [id number] 06:35:00 Test Item Value Reference Range Comments PHOSPHORUS (BEAKER) (test bddg=633) 3.0 mg/dL 2.3-4.7 [id number] 06:35:00 Test Item Value Reference Range Comments MAGNESIUM (BEAKER) (test lljg=595) 2.0 mg/dL 1.6-2.6 BASIC METABOLIC [id number] 06:35:00 Test Item Value Reference Range Comments SODIUM (BEAKER) (test 138 meq/L 136-145 jyjh=979) POTASSIUM (BEAKER) (test 3.8 meq/L 3.5-5.1 pykb=487) CHLORIDE (BEAKER) (test 109 meq/L 98-107 rxlf=345) CO2 (BEAKER) (test 22 meq/L 22-29 ghie=022) BLOOD UREA NITROGEN 10 mg/dL 7-21 (BEAKER) (test xkvm=391) CREATININE (BEAKER) (test 0.53 mg/dL 0.57-1.25 aece=958) GLUCOSE RANDOM (BEAKER) 88 mg/dL 70-105 (test tebs=955) CALCIUM (BEAKER) (test 8.5 mg/dL 8.4-10.2 omvy=892) EGFR (BEAKER) (test 174 mL/min/1.73 sq m ESTIMATED GFR IS NOT dejb=3124) ACCURATE CREATININE CLEARANCE IN PREDICTING GLOMERULAR FILTRATION RATE. ESTIMATED GFR IS NOT APPLICABLE FOR DIALYSIS PATIENTS. CALCIUM, [id number] 07:12:00 Test Item Value Reference Range Comments CALCIUM IONIZED (BEAKER) (test sofs=580) 1.09 mmol/L 1.12-1.27 PH, BLOOD (BEAKER) (test jojt=7926) 7.41 [id number] 06:38:00 Test Item Value Reference Range Comments PHOSPHORUS (BEAKER) (test fagv=627) 3.0 mg/dL 2.3-4.7 [id number] 06:38:00 Test Item Value Reference Range Comments MAGNESIUM (BEAKER) (test cuzr=874) 2.1 mg/dL 1.6-2.6 BASIC METABOLIC [id number] 06:38:00 Test Item Value Reference Range Comments SODIUM (BEAKER) (test 137 meq/L 136-145 bwuq=712) POTASSIUM (BEAKER) (test 3.7 meq/L 3.5-5.1 pjex=085) CHLORIDE (BEAKER) (test 108 meq/L 98-107 amlt=229) CO2 (BEAKER) (test 22 meq/L 22-29 jrba=380) BLOOD UREA NITROGEN 10 mg/dL 7-21 (BEAKER) (test gljb=671) CREATININE (BEAKER) (test 0.52 mg/dL 0.57-1.25 xots=730) GLUCOSE RANDOM (BEAKER) 99 mg/dL 70-105 (test nron=130) CALCIUM (BEAKER) (test 8.6 mg/dL 8.4-10.2 jaaz=802) EGFR (BEAKER) (test 178 mL/min/1.73 sq m ESTIMATED GFR IS NOT lxih=8005) ACCURATE CREATININE CLEARANCE IN PREDICTING GLOMERULAR FILTRATION RATE. ESTIMATED GFR IS NOT APPLICABLE FOR DIALYSIS PATIENTS. CALCIUM, [id number] 04:45:00 Test Item Value Reference Range Comments CALCIUM IONIZED (BEAKER) (test vukq=811) 1.14 mmol/L 1.12-1.27 PH, BLOOD (BEAKER) (test oyve=7320) 7.39 [id number] 04:22:00 Test Item Value Reference Range Comments PHOSPHORUS (BEAKER) (test fywm=948) 2.8 mg/dL 2.3-4.7 [id number] 04:22:00 Test Item Value Reference Range Comments MAGNESIUM (BEAKER) (test bdww=291) 1.9 mg/dL 1.6-2.6 BASIC METABOLIC [id number] 04:22:00 Test Item Value Reference Range Comments SODIUM (BEAKER) (test 134 meq/L 136-145 tepa=388) POTASSIUM (BEAKER) (test 3.3 meq/L 3.5-5.1 xpgh=358) CHLORIDE (BEAKER) (test 103 meq/L 98-107 nifv=256) CO2 (BEAKER) (test 23 meq/L 22-29 bgfb=119) BLOOD UREA NITROGEN 11 mg/dL 7-21 (BEAKER) (test djxq=702) CREATININE (BEAKER) (test 0.55 mg/dL 0.57-1.25 iujd=428) GLUCOSE RANDOM (BEAKER) 112 mg/dL 70-105 (test ijup=541) CALCIUM (BEAKER) (test 8.7 mg/dL 8.4-10.2 emay=515) EGFR (BEAKER) (test 167 mL/min/1.73 sq m ESTIMATED GFR IS NOT pxgj=2987) ACCURATE CREATININE CLEARANCE IN PREDICTING GLOMERULAR FILTRATION RATE. ESTIMATED GFR IS NOT APPLICABLE FOR DIALYSIS PATIENTS. CBC W/PLT COUNT & AUTO [id number] 04:11:00 Test Item Value Reference Range Comments WHITE BLOOD CELL COUNT (BEAKER) (test woel=197) 10.1 K/ L 3.5-10.5 RED BLOOD CELL COUNT (BEAKER) (test acul=136) 4.16 M/ L 4.63-6.08 HEMOGLOBIN (BEAKER) (test djxt=929) 12.6 GM/DL 13.7-17.5 HEMATOCRIT (BEAKER) (test wonl=103) 37.3 % 40.1-51.0 MEAN CORPUSCULAR VOLUME (BEAKER) (test pdum=190) 89.7 fL 79.0-92.2 MEAN CORPUSCULAR HEMOGLOBIN (BEAKER) (test 30.3 pg 25.7-32.2 oynt=364) MEAN CORPUSCULAR HEMOGLOBIN CONC (BEAKER) (test 33.8 GM/DL 32.3-36.5 xxls=054) RED CELL DISTRIBUTION WIDTH (BEAKER) (test 14.0 % 11.6-14.4 jvjq=735) PLATELET COUNT (BEAKER) (test wafs=542) 541 K/CU MM 150-450 MEAN PLATELET VOLUME (BEAKER) (test onyu=443) 9.1 fL 9.4-12.4 NUCLEATED RED BLOOD CELLS (BEAKER) (test 0 /100 WBC 0-0 qisw=590) NEUTROPHILS RELATIVE PERCENT (BEAKER) (test 66 % vdoj=500) LYMPHOCYTES RELATIVE PERCENT (BEAKER) (test 20 % ajtq=818) MONOCYTES RELATIVE PERCENT (BEAKER) (test 10 % gskd=439) EOSINOPHILS RELATIVE PERCENT (BEAKER) (test 3 % gcai=082) BASOPHILS RELATIVE PERCENT (BEAKER) (test 1 % czyu=155) NEUTROPHILS ABSOLUTE COUNT (BEAKER) (test 6.65 K/ L 1.78-5.38 ebdp=006) LYMPHOCYTES ABSOLUTE COUNT (BEAKER) (test 2.05 K/ L 1.32-3.57 xynf=781) MONOCYTES ABSOLUTE COUNT (BEAKER) (test 1.03 K/ L 0.30-0.82 zadu=648) EOSINOPHILS ABSOLUTE COUNT (BEAKER) (test 0.26 K/ L 0.04-0.54 jkot=804) BASOPHILS ABSOLUTE COUNT (BEAKER) (test 0.10 K/ L 0.01-0.08 bxyr=257) IMMATURE GRANULOCYTES-RELATIVE PERCENT (BEAKER) 0 % 0-1 (test epxf=4976) U/S, ABDOMINAL, WITH [id number] 04:01:00Reason for exam:->? hx of PV thrombosisFINAL REPORT Comparison exam: Right upper quadrant ultrasound 09/01/2017. CT scan of the abdomen and pelvis 09/03/2017. Grayscale imaging, spectral Doppler imaging, and color Doppler imaging were performed. The liver is normal in size, morphology, and echotexture. No intrahepatic biliary ductal dilatation. Normal spleen. Normal gallbladder.Patent main portal vein. Incomplete visualization of the pancreas. Complex cystic lesion in the region of the pancreatic head measuring 5.6 x 3.1 x 4.5 cm. Dilated pancreatic duct measuring 5 mm. Normal caliber aorta.No ascites. Normal kidneys. Patent IVC and hepatic veins.No pleural effusions. The measurements are as follows:Liver : 15.5cmSpleen : 10.5 cmGallbladder wall : 2 mmCommon bile duct : 4 mmPortal vein diameter : 12 mmRight kidney : 12.7 x 5.1 x 5.5 cmLeft kidney : 12.6 x 5.2 x 6.4 cm Doppler: Portal vein velocity: Hepatopetal. 28 cm/sRight and left portal vein flow: HepatopetalSplenic vein flow : HepatopetalHepatic artery resistive index: 0.6Hepatic veins and IVC: Patent Impression: 1. Complex cystic lesion in the regionof the pancreatic head measuring 5.6 x 3.1 x 4.5 cm, similar in size to the CT scan of 09/03/2017. Pseudocyst is favored. 2. Patent portal venous system with hepatopetal flow. 3. Dilated pancreatic duct measuring 5 mm. Signed: Gera Gaspar Verified Date/Time: 09/17/2017 04:01:12 Reading Location: [facility] [id number] Ortho Consult Reading Room 04 :01 AMC-REACTIVE [id number] 13:17:00 Test Item Value Reference Range Comments C-REACTIVE PROTEIN (BEAKER) (test mwgf=914) 0.97 mg/dL 0.00-0.50 [id number] 11:12:00 Test Item Value Reference Range Comments PROTIME (BEAKER) (test asbl=265) 16.2 seconds 11.7-14.7 INR (BEAKER) (test ezju=666) 1.3 <=5.9 PARTIAL THROMBOPLASTIN TIME (BEAKER) (test 30.2 seconds 22.5-36.0 wxqz=222) RECOMMENDED COUMADIN/WARFARIN INR THERAPY RANGESSTANDARD DOSE: 2.0 - 3.0 Includes: PROPHYLAXIS forvenous thrombosis, systemic embolization; TREATMENT for venous thrombosis and/or pulmonary embolus.HIGH RISK: Target INR is 2.5-3.5 for patients with mechanical heart valves.[id number] 05:28:00 Test Item Value Reference Range Comments TRIGLYCERIDES (BEAKER) (test tfdw=569) 78 mg/dL TRIGLYCERIDE REFERENCE RANGELow Risk <150Borderline Risk 150-199High Risk 200-499Very High Risk>=[id number] 05:28:00 Test Item Value Reference Range Comments MAGNESIUM (BEAKER) (test mass=338) 1.9 mg/dL 1.6-2.6 [id number] 05:28:00 Test Item Value Reference Range Comments PHOSPHORUS (BEAKER) (test xzep=264) 3.5 mg/dL 2.3-4.7 BASIC METABOLIC [id number] 05:28:00 Test Item Value Reference Range Comments SODIUM (BEAKER) (test 134 meq/L 136-145 udpc=535) POTASSIUM (BEAKER) (test 3.6 meq/L 3.5-5.1 odfl=449) CHLORIDE (BEAKER) (test 105 meq/L 98-107 wzgl=506) CO2 (BEAKER) (test 23 meq/L 22-29 vewg=981) BLOOD UREA NITROGEN 13 mg/dL 7-21 (BEAKER) (test ggdc=857) CREATININE (BEAKER) (test 0.56 mg/dL 0.57-1.25 gwxb=660) GLUCOSE RANDOM (BEAKER) 83 mg/dL 70-105 (test tvfz=281) CALCIUM (BEAKER) (test 8.8 mg/dL 8.4-10.2 ehuk=068) EGFR (BEAKER) (test 163 mL/min/1.73 sq m ESTIMATED GFR IS NOT yzru=9855) ACCURATE CREATININE CLEARANCE IN PREDICTING GLOMERULAR FILTRATION RATE. ESTIMATED GFR IS NOT APPLICABLE FOR DIALYSIS PATIENTS. HEPATIC FUNCTION [id number] 05:28:00 Test Item Value Reference Range Comments TOTAL PROTEIN (BEAKER) (test huef=273) 6.5 gm/dL 6.0-8.3 ALBUMIN (BEAKER) (test crza=7087) 3.7 g/dL 3.5-5.0 BILIRUBIN TOTAL (BEAKER) (test erdd=738) 0.3 mg/dL 0.2-1.2 BILIRUBIN DIRECT (BEAKER) (test fjru=498) 0.1 mg/dL 0.1-0.5 ALKALINE PHOSPHATASE (BEAKER) (test jmns=454) 79 U/L 40-150 AST (SGOT) (BEAKER) (test fmpa=613) 14 U/L 5-34 ALT (SGPT) (BEAKER) (test jyie=379) 9 U/L 6-55 [id number] 05:28:00 Test Item Value Reference Range Comments LIPASE (BEAKER) (test uyuc=116) 114 U/L 8-78 CBC W/PLT COUNT & AUTO [id number] 05:03:00 Test Item Value Reference Range Comments WHITE BLOOD CELL COUNT (BEAKER) (test ztjs=163) 7.2 K/ L 3.5-10.5 RED BLOOD CELL COUNT (BEAKER) (test geru=712) 4.04 M/ L 4.63-6.08 HEMOGLOBIN (BEAKER) (test lkyh=565) 12.2 GM/DL 13.7-17.5 HEMATOCRIT (BEAKER) (test xplp=957) 36.7 % 40.1-51.0 MEAN CORPUSCULAR VOLUME (BEAKER) (test kyny=083) 90.8 fL 79.0-92.2 MEAN CORPUSCULAR HEMOGLOBIN (BEAKER) (test 30.2 pg 25.7-32.2 zdqu=860) MEAN CORPUSCULAR HEMOGLOBIN CONC (BEAKER) (test 33.2 GM/DL 32.3-36.5 gbiw=455) RED CELL DISTRIBUTION WIDTH (BEAKER) (test 14.3 % 11.6-14.4 srwr=749) PLATELET COUNT (BEAKER) (test fkyh=009) 561 K/CU MM 150-450 MEAN PLATELET VOLUME (BEAKER) (test fstb=520) 9.2 fL 9.4-12.4 NUCLEATED RED BLOOD CELLS (BEAKER) (test 0 /100 WBC 0-0 bfae=763) NEUTROPHILS RELATIVE PERCENT (BEAKER) (test 51 % kdwq=522) LYMPHOCYTES RELATIVE PERCENT (BEAKER) (test 32 % vfri=827) MONOCYTES RELATIVE PERCENT (BEAKER) (test 11 % brxm=270) EOSINOPHILS RELATIVE PERCENT (BEAKER) (test 4 % wizf=880) BASOPHILS RELATIVE PERCENT (BEAKER) (test 2 % wleo=524) NEUTROPHILS ABSOLUTE COUNT (BEAKER) (test 3.66 K/ L 1.78-5.38 wghe=700) LYMPHOCYTES ABSOLUTE COUNT (BEAKER) (test 2.30 K/ L 1.32-3.57 xiys=844) MONOCYTES ABSOLUTE COUNT (BEAKER) (test 0.77 K/ L 0.30-0.82 zswo=167) EOSINOPHILS ABSOLUTE COUNT (BEAKER) (test 0.30 K/ L 0.04-0.54 hbsq=240) BASOPHILS ABSOLUTE COUNT (BEAKER) (test 0.11 K/ L 0.01-0.08 rdib=880) IMMATURE GRANULOCYTES-RELATIVE PERCENT (BEAKER) 1 % 0-1 (test trkq=5887) RAD, CHEST, 1 VIEW, NON [id number] 19:53:00Reason for exam:->check picc placement Should this be performed at the bedside?->YesFINAL REPORT History: PICC line placement. Comparison: None. Findings: 2 frontal views of the chest are submitted. A left PICC line tip overlies the SVC. The cardiomediastinal contours are unremarkable. There is no focal consolidation, pneumothorax, large pleural effusion or evidence of overt pulmonary edema. There is no acute bony abnormality. Signed: George Keys MDReport Verified Date/Time: 09/15/2017 19:53:01 Reading Location: [address] Reading Room Electronically signed by: GEORGE KEYS M.D. on 07:53 PMCBC W/PLT COUNT & AUTO [id number] 10:27:00 Test Item Value Reference Range Comments WHITE BLOOD CELL COUNT (BEAKER) (test rqdu=878) 7.8 K/ L 3.5-10.5 RED BLOOD CELL COUNT (BEAKER) (test mmvo=276) 3.95 M/ L 4.63-6.08 HEMOGLOBIN (BEAKER) (test ynkn=611) 12.0 GM/DL 13.7-17.5 HEMATOCRIT (BEAKER) (test jcjd=288) 35.9 % 40.1-51.0 MEAN CORPUSCULAR VOLUME (BEAKER) (test hloe=100) 90.9 fL 79.0-92.2 MEAN CORPUSCULAR HEMOGLOBIN (BEAKER) (test 30.4 pg 25.7-32.2 mmwa=589) MEAN CORPUSCULAR HEMOGLOBIN CONC (BEAKER) (test 33.4 GM/DL 32.3-36.5 eraq=679) RED CELL DISTRIBUTION WIDTH (BEAKER) (test 14.6 % 11.6-14.4 jhty=983) PLATELET COUNT (BEAKER) (test uqrx=333) 543 K/CU MM 150-450 MEAN PLATELET VOLUME (BEAKER) (test bgab=726) 9.1 fL 9.4-12.4 NUCLEATED RED BLOOD CELLS (BEAKER) (test 0 /100 WBC 0-0 zvlw=750) NEUTROPHILS RELATIVE PERCENT (BEAKER) (test 59 % xppg=619) LYMPHOCYTES RELATIVE PERCENT (BEAKER) (test 27 % mjlo=517) MONOCYTES RELATIVE PERCENT (BEAKER) (test 11 % rxyo=293) EOSINOPHILS RELATIVE PERCENT (BEAKER) (test 1 % sxwp=803) BASOPHILS RELATIVE PERCENT (BEAKER) (test 1 % kbhc=241) NEUTROPHILS ABSOLUTE COUNT (BEAKER) (test 4.56 K/ L 1.78-5.38 lupz=489) LYMPHOCYTES ABSOLUTE COUNT (BEAKER) (test 2.11 K/ L 1.32-3.57 pipw=265) MONOCYTES ABSOLUTE COUNT (BEAKER) (test 0.89 K/ L 0.30-0.82 rpny=628) EOSINOPHILS ABSOLUTE COUNT (BEAKER) (test 0.11 K/ L 0.04-0.54 xjik=833) BASOPHILS ABSOLUTE COUNT (BEAKER) (test 0.08 K/ L 0.01-0.08 jfqa=792) IMMATURE GRANULOCYTES-RELATIVE PERCENT (BEAKER) 0 % 0-1 (test fmqp=1736) PERIPHERAL BLOOD SMEAR - PATHOLOGIST [id number] 10:04:00 Test Item Value Reference Range Comments PERIPHERAL SMR REVIEW (BEAKER) Thrombocytosis. No circulating (test topq=2758) blasts or increased schistocytes. Clinical follow up recommended. [id number] (BEAKER) Enoch Saba (test rlvc=1854) Miladis(electronic signature) [id number] 06:02:00 Test Item Value Reference Range Comments PHOSPHORUS (BEAKER) (test llso=655) 3.3 mg/dL 2.3-4.7 [id number] 06:02:00 Test Item Value Reference Range Comments MAGNESIUM (BEAKER) (test cuvs=699) 2.0 mg/dL 1.6-2.6 BASIC METABOLIC [id number] 06:02:00 Test Item Value Reference Range Comments SODIUM (BEAKER) (test 132 meq/L 136-145 usfn=111) POTASSIUM (BEAKER) (test 3.7 meq/L 3.5-5.1 lfaj=200) CHLORIDE (BEAKER) (test 102 meq/L 98-107 shyo=791) CO2 (BEAKER) (test 22 meq/L 22-29 emsk=513) BLOOD UREA NITROGEN 11 mg/dL 7-21 (BEAKER) (test jixa=569) CREATININE (BEAKER) (test 0.52 mg/dL 0.57-1.25 qyfr=163) GLUCOSE RANDOM (BEAKER) 76 mg/dL 70-105 (test yajc=786) CALCIUM (BEAKER) (test 9.4 mg/dL 8.4-10.2 pjef=393) EGFR (BEAKER) (test 178 mL/min/1.73 sq m ESTIMATED GFR IS NOT qunm=5105) ACCURATE CREATININE CLEARANCE IN PREDICTING GLOMERULAR FILTRATION RATE. ESTIMATED GFR IS NOT APPLICABLE FOR DIALYSIS PATIENTS. VITAMIN B12 AND [id number] 12:22:00 Test Item Value Reference Range Comments VITAMIN B12 (BEAKER) (test sbdt=492) 527 pg/mL 213-816 FOLATE (BEAKER) (test rjwr=782) 12.3 ng/mL >=7.0 [id number] 07:34:00 Test Item Value Reference Range Comments LIPASE (BEAKER) (test vsvl=159) 1107 U/L 8-78 BASIC METABOLIC [id number] 07:32:00 Test Item Value Reference Range Comments SODIUM (BEAKER) (test 134 meq/L 136-145 hldv=816) POTASSIUM (BEAKER) (test 3.7 meq/L 3.5-5.1 uykq=183) CHLORIDE (BEAKER) (test 103 meq/L 98-107 ktwf=138) CO2 (BEAKER) (test 20 meq/L 22-29 vpug=098) BLOOD UREA NITROGEN 10 mg/dL 7-21 (BEAKER) (test vnja=379) CREATININE (BEAKER) (test 0.59 mg/dL 0.57-1.25 tdxh=571) GLUCOSE RANDOM (BEAKER) 96 mg/dL 70-105 (test oexw=774) CALCIUM (BEAKER) (test 9.7 mg/dL 8.4-10.2 vpup=156) EGFR (BEAKER) (test 154 mL/min/1.73 sq m ESTIMATED GFR IS NOT ujsl=7385) ACCURATE CREATININE CLEARANCE IN PREDICTING GLOMERULAR FILTRATION RATE. ESTIMATED GFR IS NOT APPLICABLE FOR DIALYSIS PATIENTS. [id number] 07:32:00 Test Item Value Reference Range Comments MAGNESIUM (BEAKER) (test airu=423) 1.9 mg/dL 1.6-2.6 [id number] 07:32:00 Test Item Value Reference Range Comments PHOSPHORUS (BEAKER) (test isai=511) 3.4 mg/dL 2.3-4.7 CBC W/PLT COUNT & AUTO [id number] 06:44:00 Test Item Value Reference Range Comments WHITE BLOOD CELL COUNT (BEAKER) (test pdqt=176) 12.1 K/ L 3.5-10.5 RED BLOOD CELL COUNT (BEAKER) (test voiz=249) 4.34 M/ L 4.63-6.08 HEMOGLOBIN (BEAKER) (test gjdn=711) 13.1 GM/DL 13.7-17.5 HEMATOCRIT (BEAKER) (test jvzj=453) 39.2 % 40.1-51.0 MEAN CORPUSCULAR VOLUME (BEAKER) (test bnox=844) 90.3 fL 79.0-92.2 MEAN CORPUSCULAR HEMOGLOBIN (BEAKER) (test 30.2 pg 25.7-32.2 xhyv=537) MEAN CORPUSCULAR HEMOGLOBIN CONC (BEAKER) (test 33.4 GM/DL 32.3-36.5 qtdg=190) RED CELL DISTRIBUTION WIDTH (BEAKER) (test 14.9 % 11.6-14.4 dlqo=405) PLATELET COUNT (BEAKER) (test mouy=806) 636 K/CU MM 150-450 MEAN PLATELET VOLUME (BEAKER) (test rutd=990) 9.5 fL 9.4-12.4 NUCLEATED RED BLOOD CELLS (BEAKER) (test 0 /100 WBC 0-0 zwxu=277) NEUTROPHILS RELATIVE PERCENT (BEAKER) (test 72 % qyld=315) LYMPHOCYTES RELATIVE PERCENT (BEAKER) (test 15 % lhip=698) MONOCYTES RELATIVE PERCENT (BEAKER) (test 11 % czsi=740) EOSINOPHILS RELATIVE PERCENT (BEAKER) (test 0 % scgx=774) BASOPHILS RELATIVE PERCENT (BEAKER) (test 0 % lshz=847) NEUTROPHILS ABSOLUTE COUNT (BEAKER) (test 8.72 K/ L 1.78-5.38 cbva=211) LYMPHOCYTES ABSOLUTE COUNT (BEAKER) (test 1.87 K/ L 1.32-3.57 ctja=218) MONOCYTES ABSOLUTE COUNT (BEAKER) (test 1.38 K/ L 0.30-0.82 ylkc=324) EOSINOPHILS ABSOLUTE COUNT (BEAKER) (test 0.02 K/ L 0.04-0.54 ypwh=029) BASOPHILS ABSOLUTE COUNT (BEAKER) (test 0.05 K/ L 0.01-0.08 xqyq=404) IMMATURE GRANULOCYTES-RELATIVE PERCENT (BEAKER) 1 % 0-1 (test xetj=1829) FINE NEEDLE ASPIRATION BY [id number] 13:21:00Medical Cytology Report Case: [id number] Authorizing Provider: Bessy Hernandez MD Collected: 2017 [id number] Ordering Location: [address] Received : 09/08/2017 1814 Service Pathologist: Mir Anthony MD Specimen: Pancreas PANCREAS HEAD CYSTICLESION FNA BY CLINICIAN ( CYTOSPINS AND CELL BLOCK OF ASPIRATE): - NO MALIGNANT CELLS IDENTIFIED - The mucin stain shows focal weak staining Signing Pathologist Direct Phone Line : [phone] signed by Mir Anthony MD on 09/11/2017 at 1:21 PMThe cell block shows non-inflammed pancreatic acinar tissue.25275, 58030, 94951(4.9 X 4.8 cm) Cystic lesion in the pancreatic headPANCREAS HEAD CYSTIC LESION FNA25 mls in cytorich red; 4 cytospins, 1 mucin stain, cell blockCollected: [id number]: [id number], [facility] of Pathology, [address] [place] [id number], [facility], [facility], [address] [place] [address], [id number] 10:07:00 Test Item Value Reference Range Comments PARTIAL THROMBOPLASTIN TIME (BEAKER) (test 44.5 seconds 22.5-36.0 vkqu=952) BASIC METABOLIC [id number] 05:56:00 Test Item Value Reference Range Comments SODIUM (BEAKER) (test 138 meq/L 136-145 fnpv=462) POTASSIUM (BEAKER) (test 3.7 meq/L 3.5-5.1 lcnz=167) CHLORIDE (BEAKER) (test 105 meq/L 98-107 hrdt=842) CO2 (BEAKER) (test 25 meq/L 22-29 ljlr=551) BLOOD UREA NITROGEN 7 mg/dL 7-21 (BEAKER) (test qsgv=075) CREATININE (BEAKER) (test 0.62 mg/dL 0.57-1.25 ydsx=080) GLUCOSE RANDOM (BEAKER) 120 mg/dL 70-105 (test qrsp=193) CALCIUM (BEAKER) (test 8.7 mg/dL 8.4-10.2 etuo=905) EGFR (BEAKER) (test 145 mL/min/1.73 sq m ESTIMATED GFR IS NOT kofx=1582) ACCURATE CREATININE CLEARANCE IN PREDICTING GLOMERULAR FILTRATION RATE. ESTIMATED GFR IS NOT APPLICABLE FOR DIALYSIS PATIENTS. CBC W/PLT COUNT & AUTO [id number] 05:42:00 Test Item Value Reference Range Comments WHITE BLOOD CELL COUNT (BEAKER) (test suun=569) 4.6 K/ L 3.5-10.5 RED BLOOD CELL COUNT (BEAKER) (test eyfi=717) 3.83 M/ L 4.63-6.08 HEMOGLOBIN (BEAKER) (test zmbp=101) 11.7 GM/DL 13.7-17.5 HEMATOCRIT (BEAKER) (test vovj=023) 34.7 % 40.1-51.0 MEAN CORPUSCULAR VOLUME (BEAKER) (test bkfe=870) 90.6 fL 79.0-92.2 MEAN CORPUSCULAR HEMOGLOBIN (BEAKER) (test 30.5 pg 25.7-32.2 fmhb=878) MEAN CORPUSCULAR HEMOGLOBIN CONC (BEAKER) (test 33.7 GM/DL 32.3-36.5 cssm=729) RED CELL DISTRIBUTION WIDTH (BEAKER) (test 14.3 % 11.6-14.4 lmyo=954) PLATELET COUNT (BEAKER) (test jbsm=373) 378 K/CU MM 150-450 MEAN PLATELET VOLUME (BEAKER) (test nifw=177) 9.0 fL 9.4-12.4 NUCLEATED RED BLOOD CELLS (BEAKER) (test 0 /100 WBC 0-0 wqhs=758) NEUTROPHILS RELATIVE PERCENT (BEAKER) (test 39 % gyxj=762) LYMPHOCYTES RELATIVE PERCENT (BEAKER) (test 43 % mqtk=255) MONOCYTES RELATIVE PERCENT (BEAKER) (test 12 % yuat=723) EOSINOPHILS RELATIVE PERCENT (BEAKER) (test 5 % xcna=193) BASOPHILS RELATIVE PERCENT (BEAKER) (test 1 % hhcm=684) NEUTROPHILS ABSOLUTE COUNT (BEAKER) (test 1.81 K/ L 1.78-5.38 tzny=934) LYMPHOCYTES ABSOLUTE COUNT (BEAKER) (test 2.01 K/ L 1.32-3.57 zcgn=036) MONOCYTES ABSOLUTE COUNT (BEAKER) (test 0.55 K/ L 0.30-0.82 svkx=379) EOSINOPHILS ABSOLUTE COUNT (BEAKER) (test 0.21 K/ L 0.04-0.54 evgu=898) BASOPHILS ABSOLUTE COUNT (BEAKER) (test 0.05 K/ L 0.01-0.08 nhiy=574) IMMATURE GRANULOCYTES-RELATIVE PERCENT (BEAKER) 0 % 0-1 (test rlzk=1027) FINE NEEDLE ASPIRATE (FNA) [id number] 20:00:00 Test Item Value Reference Range Comments CYTOLOGY RESULT POINTER (BEAKER) (test See Separate Report uqje=5338) [id number] 12:16:00 Test Item Value Reference Range Comments PARTIAL THROMBOPLASTIN TIME (BEAKER) (test 84.6 seconds 22.5-36.0 tnuo=628) BASIC METABOLIC [id number] 05:21:00 Test Item Value Reference Range Comments SODIUM (BEAKER) (test 126 meq/L 136-145 oncd=459) POTASSIUM (BEAKER) (test 2.8 meq/L 3.5-5.1 mhag=210) CHLORIDE (BEAKER) (test 99 meq/L 98-107 dfna=206) CO2 (BEAKER) (test 20 meq/L 22-29 ydxy=334) BLOOD UREA NITROGEN 3 mg/dL 7-21 (BEAKER) (test zxlf=302) CREATININE (BEAKER) (test 0.44 mg/dL 0.57-1.25 jlgt=690) GLUCOSE RANDOM (BEAKER) 75 mg/dL 70-105 (test wduv=789) CALCIUM (BEAKER) (test 6.8 mg/dL 8.4-10.2 gcoy=700) EGFR (BEAKER) (test 216 mL/min/1.73 sq m ESTIMATED GFR IS NOT bwzb=3818) ACCURATE CREATININE CLEARANCE IN PREDICTING GLOMERULAR FILTRATION RATE. ESTIMATED GFR IS NOT APPLICABLE FOR DIALYSIS PATIENTS. [id number] 05:13:00 Test Item Value Reference Range Comments PARTIAL THROMBOPLASTIN TIME (BEAKER) (test 110.2 seconds 22.5-36.0 cysi=656) CBC W/PLT COUNT & AUTO [id number] 04:45:00 Test Item Value Reference Range Comments WHITE BLOOD CELL COUNT (BEAKER) (test qqkk=492) 4.4 K/ L 3.5-10.5 RED BLOOD CELL COUNT (BEAKER) (test jkya=220) 3.25 M/ L 4.63-6.08 HEMOGLOBIN (BEAKER) (test dwps=015) 10.1 GM/DL 13.7-17.5 HEMATOCRIT (BEAKER) (test ncaq=397) 29.9 % 40.1-51.0 MEAN CORPUSCULAR VOLUME (BEAKER) (test iuph=611) 92.0 fL 79.0-92.2 MEAN CORPUSCULAR HEMOGLOBIN (BEAKER) (test 31.1 pg 25.7-32.2 mghv=751) MEAN CORPUSCULAR HEMOGLOBIN CONC (BEAKER) (test 33.8 GM/DL 32.3-36.5 xssq=097) RED CELL DISTRIBUTION WIDTH (BEAKER) (test 14.5 % 11.6-14.4 jpom=523) PLATELET COUNT (BEAKER) (test eigc=770) 297 K/CU MM 150-450 MEAN PLATELET VOLUME (BEAKER) (test scxi=073) 9.1 fL 9.4-12.4 NUCLEATED RED BLOOD CELLS (BEAKER) (test 0 /100 WBC 0-0 zjoa=050) NEUTROPHILS RELATIVE PERCENT (BEAKER) (test 44 % ybxz=235) LYMPHOCYTES RELATIVE PERCENT (BEAKER) (test 40 % ttlt=976) MONOCYTES RELATIVE PERCENT (BEAKER) (test 11 % dzjz=395) EOSINOPHILS RELATIVE PERCENT (BEAKER) (test 4 % hbcv=377) BASOPHILS RELATIVE PERCENT (BEAKER) (test 1 % tycu=827) NEUTROPHILS ABSOLUTE COUNT (BEAKER) (test 1.96 K/ L 1.78-5.38 mowk=734) LYMPHOCYTES ABSOLUTE COUNT (BEAKER) (test 1.77 K/ L 1.32-3.57 ewzu=526) MONOCYTES ABSOLUTE COUNT (BEAKER) (test 0.49 K/ L 0.30-0.82 ylaj=202) EOSINOPHILS ABSOLUTE COUNT (BEAKER) (test 0.16 K/ L 0.04-0.54 bsbn=251) BASOPHILS ABSOLUTE COUNT (BEAKER) (test 0.05 K/ L 0.01-0.08 kiuk=126) IMMATURE GRANULOCYTES-RELATIVE PERCENT (BEAKER) 0 % 0-1 (test igmi=2046) [id number] 21:32:00 Test Item Value Reference Range Comments PARTIAL THROMBOPLASTIN TIME (BEAKER) (test 118.1 seconds 22.5-36.0 mmpg=921) BASIC METABOLIC [id number] 14:23:00 Test Item Value Reference Range Comments SODIUM (BEAKER) (test 139 meq/L 136-145 nbzg=593) POTASSIUM (BEAKER) (test 3.6 meq/L 3.5-5.1 teuf=562) CHLORIDE (BEAKER) (test 103 meq/L 98-107 nkls=570) CO2 (BEAKER) (test 29 meq/L 22-29 abzx=406) BLOOD UREA NITROGEN 3 mg/dL 7-21 (BEAKER) (test rlxv=767) CREATININE (BEAKER) (test 0.54 mg/dL 0.57-1.25 wrdr=500) GLUCOSE RANDOM (BEAKER) 108 mg/dL 70-105 (test ncwg=070) CALCIUM (BEAKER) (test 8.6 mg/dL 8.4-10.2 smcn=444) EGFR (BEAKER) (test 170 mL/min/1.73 sq m ESTIMATED GFR IS NOT zoik=4127) ACCURATE CREATININE CLEARANCE IN PREDICTING GLOMERULAR FILTRATION RATE. ESTIMATED GFR IS NOT APPLICABLE FOR DIALYSIS PATIENTS. [id number] 14:06:00 Test Item Value Reference Range Comments PARTIAL THROMBOPLASTIN TIME (BEAKER) (test 66.8 seconds 22.5-36.0 grcn=968) CBC W/PLT COUNT & AUTO [id number] 13:57:00 Test Item Value Reference Range Comments WHITE BLOOD CELL COUNT (BEAKER) (test znka=937) 4.6 K/ L 3.5-10.5 RED BLOOD CELL COUNT (BEAKER) (test dcew=082) 3.95 M/ L 4.63-6.08 HEMOGLOBIN (BEAKER) (test djup=536) 11.9 GM/DL 13.7-17.5 HEMATOCRIT (BEAKER) (test ubld=303) 36.5 % 40.1-51.0 MEAN CORPUSCULAR VOLUME (BEAKER) (test jpxr=046) 92.4 fL 79.0-92.2 MEAN CORPUSCULAR HEMOGLOBIN (BEAKER) (test 30.1 pg 25.7-32.2 tbwt=357) MEAN CORPUSCULAR HEMOGLOBIN CONC (BEAKER) (test 32.6 GM/DL 32.3-36.5 mpzv=773) RED CELL DISTRIBUTION WIDTH (BEAKER) (test 14.2 % 11.6-14.4 smok=570) PLATELET COUNT (BEAKER) (test ofyh=606) 347 K/CU MM 150-450 MEAN PLATELET VOLUME (BEAKER) (test cxbh=347) 9.2 fL 9.4-12.4 NUCLEATED RED BLOOD CELLS (BEAKER) (test 0 /100 WBC 0-0 wdtj=880) NEUTROPHILS RELATIVE PERCENT (BEAKER) (test 44 % mrui=568) LYMPHOCYTES RELATIVE PERCENT (BEAKER) (test 37 % teqo=821) MONOCYTES RELATIVE PERCENT (BEAKER) (test 13 % vvtd=289) EOSINOPHILS RELATIVE PERCENT (BEAKER) (test 5 % zkga=901) BASOPHILS RELATIVE PERCENT (BEAKER) (test 1 % wink=398) NEUTROPHILS ABSOLUTE COUNT (BEAKER) (test 1.99 K/ L 1.78-5.38 uyah=745) LYMPHOCYTES ABSOLUTE COUNT (BEAKER) (test 1.69 K/ L 1.32-3.57 hcwr=116) MONOCYTES ABSOLUTE COUNT (BEAKER) (test 0.61 K/ L 0.30-0.82 soop=963) EOSINOPHILS ABSOLUTE COUNT (BEAKER) (test 0.21 K/ L 0.04-0.54 gryw=019) BASOPHILS ABSOLUTE COUNT (BEAKER) (test 0.05 K/ L 0.01-0.08 yvmk=376) IMMATURE GRANULOCYTES-RELATIVE PERCENT (BEAKER) 0 % 0-1 (test rxsw=5946) BASIC METABOLIC [id number] 07:03:00 Test Item Value Reference Range Comments SODIUM (BEAKER) (test 140 meq/L 136-145 ufhj=802) POTASSIUM (BEAKER) (test 3.4 meq/L 3.5-5.1 kmky=657) CHLORIDE (BEAKER) (test 100 meq/L 98-107 vhve=270) CO2 (BEAKER) (test 30 meq/L 22-29 lguf=381) BLOOD UREA NITROGEN 3 mg/dL 7-21 (BEAKER) (test numb=047) CREATININE (BEAKER) (test 0.56 mg/dL 0.57-1.25 ijpe=213) GLUCOSE RANDOM (BEAKER) 102 mg/dL 70-105 (test frah=808) CALCIUM (BEAKER) (test 9.2 mg/dL 8.4-10.2 mrbn=646) EGFR (BEAKER) (test 163 mL/min/1.73 sq m ESTIMATED GFR IS NOT mplf=1990) ACCURATE CREATININE CLEARANCE IN PREDICTING GLOMERULAR FILTRATION RATE. ESTIMATED GFR IS NOT APPLICABLE FOR DIALYSIS PATIENTS. [id number] 06:47:00 Test Item Value Reference Range Comments PARTIAL THROMBOPLASTIN TIME (BEAKER) (test 46.7 seconds 22.5-36.0 wwzm=104) [id number] 00:50:00 Test Item Value Reference Range Comments PARTIAL THROMBOPLASTIN TIME (BEAKER) (test 53.5 seconds 22.5-36.0 hurw=803) [id number] 17:34:00 Test Item Value Reference Range Comments PARTIAL THROMBOPLASTIN TIME (BEAKER) (test 45.8 seconds 22.5-36.0 ukbf=473) [id number] 08:32:00 Test Item Value Reference Range Comments PARTIAL THROMBOPLASTIN TIME (BEAKER) (test 38.7 seconds 22.5-36.0 wjqo=128) Prior to initiating heparinBASIC METABOLIC [id number] 06:05:00 Test Item Value Reference Range Comments SODIUM (BEAKER) (test 136 meq/L 136-145 seey=157) POTASSIUM (BEAKER) (test 3.3 meq/L 3.5-5.1 dgaq=273) CHLORIDE (BEAKER) (test 102 meq/L 98-107 xpbn=142) CO2 (BEAKER) (test 26 meq/L 22-29 tyab=536) BLOOD UREA NITROGEN 2 mg/dL 7-21 (BEAKER) (test vkza=493) CREATININE (BEAKER) (test 0.55 mg/dL 0.57-1.25 wibt=275) GLUCOSE RANDOM (BEAKER) 124 mg/dL 70-105 (test skfa=126) CALCIUM (BEAKER) (test 8.0 mg/dL 8.4-10.2 cfmo=497) EGFR (BEAKER) (test 167 mL/min/1.73 sq m ESTIMATED GFR IS NOT xdxv=1622) ACCURATE CREATININE CLEARANCE IN PREDICTING GLOMERULAR FILTRATION RATE. ESTIMATED GFR IS NOT APPLICABLE FOR DIALYSIS PATIENTS. BLOOD [id number] 06:00:00 Test Item Value Reference Range Comments CULTURE (BEAKER) (test snkv=3117) No growth in 5 days BLOOD [id number] 06:00:00 Test Item Value Reference Range Comments CULTURE (BEAKER) (test zhpv=6483) No growth in 5 days [id number] 03:55:00 Test Item Value Reference Range Comments PHOSPHORUS (BEAKER) (test xgsr=893) 2.8 mg/dL 2.3-4.7 [id number] 03:55:00 Test Item Value Reference Range Comments MAGNESIUM (BEAKER) (test titl=663) 1.3 mg/dL 1.6-2.6 BASIC METABOLIC [id number] 03:55:00 Test Item Value Reference Range Comments SODIUM (BEAKER) (test 137 meq/L 136-145 ezbw=419) POTASSIUM (BEAKER) (test 3.2 meq/L 3.5-5.1 mnro=930) CHLORIDE (BEAKER) (test 103 meq/L 98-107 fdpq=652) CO2 (BEAKER) (test 22 meq/L 22-29 vnbr=473) BLOOD UREA NITROGEN 3 mg/dL 7-21 (BEAKER) (test juyn=051) CREATININE (BEAKER) (test 0.51 mg/dL 0.57-1.25 jxbx=446) GLUCOSE RANDOM (BEAKER) 65 mg/dL 70-105 (test tdhv=891) CALCIUM (BEAKER) (test 8.0 mg/dL 8.4-10.2 erps=552) EGFR (BEAKER) (test 182 mL/min/1.73 sq m ESTIMATED GFR IS NOT jnce=0634) ACCURATE CREATININE CLEARANCE IN PREDICTING GLOMERULAR FILTRATION RATE. ESTIMATED GFR IS NOT APPLICABLE FOR DIALYSIS PATIENTS. [id number] 03:55:00 Test Item Value Reference Range Comments LIPASE (BEAKER) (test vvft=424) 210 U/L 8-78 CBC W/PLT COUNT & AUTO [id number] 03:37:00 Test Item Value Reference Range Comments WHITE BLOOD CELL COUNT (BEAKER) (test mnab=553) 6.1 K/ L 3.5-10.5 RED BLOOD CELL COUNT (BEAKER) (test upkv=298) 3.63 M/ L 4.63-6.08 HEMOGLOBIN (BEAKER) (test hryi=094) 11.1 GM/DL 13.7-17.5 HEMATOCRIT (BEAKER) (test cnwx=405) 33.0 % 40.1-51.0 MEAN CORPUSCULAR VOLUME (BEAKER) (test plaf=075) 90.9 fL 79.0-92.2 MEAN CORPUSCULAR HEMOGLOBIN (BEAKER) (test 30.6 pg 25.7-32.2 acqt=002) MEAN CORPUSCULAR HEMOGLOBIN CONC (BEAKER) (test 33.6 GM/DL 32.3-36.5 nnhh=619) RED CELL DISTRIBUTION WIDTH (BEAKER) (test 14.3 % 11.6-14.4 bcoc=803) PLATELET COUNT (BEAKER) (test xcxe=809) 262 K/CU MM 150-450 MEAN PLATELET VOLUME (BEAKER) (test kgwa=767) 9.1 fL 9.4-12.4 NUCLEATED RED BLOOD CELLS (BEAKER) (test 0 /100 WBC 0-0 hppl=183) NEUTROPHILS RELATIVE PERCENT (BEAKER) (test 69 % bkrn=794) LYMPHOCYTES RELATIVE PERCENT (BEAKER) (test 17 % evnd=152) MONOCYTES RELATIVE PERCENT (BEAKER) (test 10 % rwas=006) EOSINOPHILS RELATIVE PERCENT (BEAKER) (test 3 % scmg=610) BASOPHILS RELATIVE PERCENT (BEAKER) (test 0 % nyho=695) NEUTROPHILS ABSOLUTE COUNT (BEAKER) (test 4.21 K/ L 1.78-5.38 zwbh=329) LYMPHOCYTES ABSOLUTE COUNT (BEAKER) (test 1.04 K/ L 1.32-3.57 jnjj=936) MONOCYTES ABSOLUTE COUNT (BEAKER) (test 0.60 K/ L 0.30-0.82 rxid=528) EOSINOPHILS ABSOLUTE COUNT (BEAKER) (test 0.18 K/ L 0.04-0.54 fjqh=211) BASOPHILS ABSOLUTE COUNT (BEAKER) (test 0.02 K/ L 0.01-0.08 mivx=984) IMMATURE GRANULOCYTES-RELATIVE PERCENT (BEAKER) 1 % 0-1 (test xvwc=8266) CT, ABDOMEN - PELVIS, PANCREAS [id number] 00:22:00Reason for exam:-&gt ;pancreatitisFINAL REPORT CT, ABDOMEN [...] main pancreatic duct.No vascular compromise. Signed: JR Robin, Jesus Manuel JULESeport Verified Date/ Time: 09/04/2017 00:22:52 Reading Location: [address] Reading Room [id number] 06:00:00 Test Item Value Reference Range Comments MAGNESIUM (BEAKER) (test 1.6 mg/dL 1.6-2.6 Specimen slightly hemolyzed txsv=550) [id number] 06:00:00 Test Item Value Reference Range Comments PHOSPHORUS (BEAKER) (test 3.4 mg/dL 2.3-4.7 Specimen slightly hemolyzed svdl=790) BASIC METABOLIC [id number] 06:00:00 Test Item Value Reference Range Comments SODIUM (BEAKER) (test 132 meq/L 136-145 qtsb=655) POTASSIUM (BEAKER) (test 3.9 meq/L 3.5-5.1 Specimen slightly aidb=656) hemolyzed CHLORIDE (BEAKER) (test 101 meq/L 98-107 ibsy=704) CO2 (BEAKER) (test 22 meq/L 22-29 blcn=094) BLOOD UREA NITROGEN 7 mg/dL 7-21 (BEAKER) (test akyb=669) CREATININE (BEAKER) (test 0.49 mg/dL 0.57-1.25 Specimen slightly ifgi=204) hemolyzed GLUCOSE RANDOM (BEAKER) 59 mg/dL 70-105 (test nhyo=502) CALCIUM (BEAKER) (test 8.1 mg/dL 8.4-10.2 zaqr=688) EGFR (BEAKER) (test 190 mL/min/1.73 sq m ESTIMATED GFR IS NOT jycr=9476) ACCURATE CREATININE CLEARANCE IN PREDICTING GLOMERULAR FILTRATION RATE. ESTIMATED GFR IS NOT APPLICABLE FOR DIALYSIS PATIENTS. HEPATIC FUNCTION [id number] 06:00:00 Test Item Value Reference Range Comments TOTAL PROTEIN (BEAKER) (test 5.7 gm/dL 6.0-8.3 Specimen slightly hemolyzed nxkt=444) ALBUMIN (BEAKER) (test 3.0 g/dL 3.5-5.0 Specimen slightly hemolyzed sokh=8858) BILIRUBIN TOTAL (BEAKER) (test 1.2 mg/dL 0.2-1.2 Specimen slightly hemolyzed brxv=873) BILIRUBIN DIRECT (BEAKER) (test 0.4 mg/dL 0.1-0.5 Specimen slightly hemolyzed yuqn=159) ALKALINE PHOSPHATASE (BEAKER) 62 U/L 40-150 (test snwa=764) AST (SGOT) (BEAKER) (test 18 U/L 5-34 Specimen slightly hemolyzed tyir=370) ALT (SGPT) (BEAKER) (test < U/L 6-55 Specimen slightly hemolyzed pevs=692) CBC W/PLT COUNT & AUTO [id number] 05:43:00 Test Item Value Reference Range Comments WHITE BLOOD CELL COUNT (BEAKER) (test mawb=412) 8.4 K/ L 3.5-10.5 RED BLOOD CELL COUNT (BEAKER) (test fatj=187) 3.68 M/ L 4.63-6.08 HEMOGLOBIN (BEAKER) (test pvgu=418) 11.6 GM/DL 13.7-17.5 HEMATOCRIT (BEAKER) (test iaml=470) 34.4 % 40.1-51.0 MEAN CORPUSCULAR VOLUME (BEAKER) (test vyme=480) 93.5 fL 79.0-92.2 MEAN CORPUSCULAR HEMOGLOBIN (BEAKER) (test 31.5 pg 25.7-32.2 zkpz=076) MEAN CORPUSCULAR HEMOGLOBIN CONC (BEAKER) (test 33.7 GM/DL 32.3-36.5 qaut=120) RED CELL DISTRIBUTION WIDTH (BEAKER) (test 14.6 % 11.6-14.4 bsvk=380) PLATELET COUNT (BEAKER) (test dfds=637) 221 K/CU MM 150-450 MEAN PLATELET VOLUME (BEAKER) (test blpx=025) 9.5 fL 9.4-12.4 NUCLEATED RED BLOOD CELLS (BEAKER) (test 0 /100 WBC 0-0 obok=629) NEUTROPHILS RELATIVE PERCENT (BEAKER) (test 75 % khey=579) LYMPHOCYTES RELATIVE PERCENT (BEAKER) (test 14 % zgus=637) MONOCYTES RELATIVE PERCENT (BEAKER) (test 10 % ejcb=398) EOSINOPHILS RELATIVE PERCENT (BEAKER) (test 1 % qwmo=123) BASOPHILS RELATIVE PERCENT (BEAKER) (test 0 % wbje=371) NEUTROPHILS ABSOLUTE COUNT (BEAKER) (test 6.27 K/ L 1.78-5.38 roha=240) LYMPHOCYTES ABSOLUTE COUNT (BEAKER) (test 1.16 K/ L 1.32-3.57 hjxw=422) MONOCYTES ABSOLUTE COUNT (BEAKER) (test 0.87 K/ L 0.30-0.82 trfp=606) EOSINOPHILS ABSOLUTE COUNT (BEAKER) (test 0.07 K/ L 0.04-0.54 huct=513) BASOPHILS ABSOLUTE COUNT (BEAKER) (test 0.03 K/ L 0.01-0.08 krqc=177) IMMATURE GRANULOCYTES-RELATIVE PERCENT (BEAKER) 0 % 0-1 (test bjfo=1389) POCT-GLUCOSE [id number] 07:30:00 Test Item Value Reference Range Comments POC-GLUCOSE METER (BEAKER) 140 mg/dL 70-110 TESTED AT [address] (test mkcb=8580) [place] [id number] POCT-GLUCOSE [id number] 07:30:00 Test Item Value Reference Range Comments POC-GLUCOSE METER (BEAKER) 59 mg/dL 70-110 TESTED AT [address] (test ecvg=9784) [place] [id number] 05:16:00 Test Item Value Reference Range Comments MAGNESIUM (BEAKER) (test 1.7 mg/dL 1.6-2.6 Specimen slightly hemolyzed zzac=455) [id number] 05:16:00 Test Item Value Reference Range Comments PHOSPHORUS (BEAKER) (test 3.7 mg/dL 2.3-4.7 Specimen slightly hemolyzed asnj=222) BASIC METABOLIC [id number] 05:16:00 Test Item Value Reference Range Comments SODIUM (BEAKER) (test 136 meq/L 136-145 nlst=258) POTASSIUM (BEAKER) (test 4.1 meq/L 3.5-5.1 Specimen slightly snlx=211) hemolyzed CHLORIDE (BEAKER) (test 105 meq/L 98-107 ephp=104) CO2 (BEAKER) (test 21 meq/L 22-29 nlzp=504) BLOOD UREA NITROGEN 12 mg/dL 7-21 (BEAKER) (test phpj=480) CREATININE (BEAKER) (test 0.62 mg/dL 0.57-1.25 Specimen slightly cnio=305) hemolyzed GLUCOSE RANDOM (BEAKER) 65 mg/dL 70-105 (test kalv=864) CALCIUM (BEAKER) (test 8.4 mg/dL 8.4-10.2 tfon=356) EGFR (BEAKER) (test 145 mL/min/1.73 sq m ESTIMATED GFR IS NOT ympy=4473) ACCURATE CREATININE CLEARANCE IN PREDICTING GLOMERULAR FILTRATION RATE. ESTIMATED GFR IS NOT APPLICABLE FOR DIALYSIS PATIENTS. HEPATIC FUNCTION [id number] 05:16:00 Test Item Value Reference Range Comments TOTAL PROTEIN (BEAKER) (test 5.9 gm/dL 6.0-8.3 Specimen slightly hemolyzed repg=827) ALBUMIN (BEAKER) (test 3.3 g/dL 3.5-5.0 Specimen slightly hemolyzed bsag=0104) BILIRUBIN TOTAL (BEAKER) (test 1.4 mg/dL 0.2-1.2 Specimen slightly hemolyzed uvop=593) BILIRUBIN DIRECT (BEAKER) (test 0.5 mg/dL 0.1-0.5 Specimen slightly hemolyzed mxxt=042) ALKALINE PHOSPHATASE (BEAKER) 66 U/L 40-150 (test napd=529) AST (SGOT) (BEAKER) (test 16 U/L 5-34 Specimen slightly hemolyzed idef=394) ALT (SGPT) (BEAKER) (test 6 U/L 6-55 Specimen slightly hemolyzed xwhx=118) CBC W/PLT COUNT & AUTO [id number] 04:45:00 Test Item Value Reference Range Comments WHITE BLOOD CELL COUNT (BEAKER) (test imxi=162) 9.1 K/ L 3.5-10.5 RED BLOOD CELL COUNT (BEAKER) (test zgkt=625) 4.04 M/ L 4.63-6.08 HEMOGLOBIN (BEAKER) (test hlcb=838) 12.3 GM/DL 13.7-17.5 HEMATOCRIT (BEAKER) (test bytw=229) 38.1 % 40.1-51.0 MEAN CORPUSCULAR VOLUME (BEAKER) (test agma=370) 94.3 fL 79.0-92.2 MEAN CORPUSCULAR HEMOGLOBIN (BEAKER) (test 30.4 pg 25.7-32.2 alav=951) MEAN CORPUSCULAR HEMOGLOBIN CONC (BEAKER) (test 32.3 GM/DL 32.3-36.5 aaqw=970) RED CELL DISTRIBUTION WIDTH (BEAKER) (test 15.7 % 11.6-14.4 eqhj=525) PLATELET COUNT (BEAKER) (test vfka=337) 243 K/CU MM 150-450 MEAN PLATELET VOLUME (BEAKER) (test pvxv=343) 9.5 fL 9.4-12.4 NUCLEATED RED BLOOD CELLS (BEAKER) (test 0 /100 WBC 0-0 lugd=134) NEUTROPHILS RELATIVE PERCENT (BEAKER) (test 72 % umpi=323) LYMPHOCYTES RELATIVE PERCENT (BEAKER) (test 16 % dhjb=905) MONOCYTES RELATIVE PERCENT (BEAKER) (test 10 % hebj=998) EOSINOPHILS RELATIVE PERCENT (BEAKER) (test 1 % mlsz=747) BASOPHILS RELATIVE PERCENT (BEAKER) (test 0 % ufiw=064) NEUTROPHILS ABSOLUTE COUNT (BEAKER) (test 6.58 K/ L 1.78-5.38 lmrl=854) LYMPHOCYTES ABSOLUTE COUNT (BEAKER) (test 1.48 K/ L 1.32-3.57 mztg=307) MONOCYTES ABSOLUTE COUNT (BEAKER) (test 0.95 K/ L 0.30-0.82 frvp=238) EOSINOPHILS ABSOLUTE COUNT (BEAKER) (test 0.05 K/ L 0.04-0.54 bxam=943) BASOPHILS ABSOLUTE COUNT (BEAKER) (test 0.04 K/ L 0.01-0.08 wsyw=112) IMMATURE GRANULOCYTES-RELATIVE PERCENT (BEAKER) 0 % 0-1 (test pygt=4110) HEMOGLOBIN [id number] 10:23:00 Test Item Value Reference Range Comments HEMOGLOBIN A1C (BEAKER) (test ooyd=646) 4.7 % 4.3-6.1 U/S, ABDOMINAL, [id number] 09:53:00Abdomen limited area? Add comment if clarification [...] limited exam (no cholelithiasis). Signed: Himanshu Nelson MDReport Verified Date/Time:09/01/2017 09:53:12 Reading Location: [address] Ultrasound Reading Room SEDIMENTATION [id number] 08:01:00 Test Item Value Reference Range Comments SEDIMENTATION RATE, ERYTHROCYTE (BEAKER) (test 3 mm/HR 0-15 bjvn=441) TSH/FREE T4 IF [id number] 04:12:00 Test Item Value Reference Range Comments THYROID STIMULATING HORMONE (BEAKER) (test 0.36 uIU/mL 0.35-4.94 gloy=438) CREATINE KINASE (CK), TOTAL AND [id number] 04:03:00 Test Item Value Reference Range Comments CREATINE KINASE TOTAL (BEAKER) (test xrqp=327) 29 U/L 29-200 CREATINE KINASE-MB (BEAKER) (test lpnk=823) 0.4 ng/mL 0.0-6.6 CREATINE KINASE-MB INDEX (BEAKER) (test unoc=632) 1.4 % CK-MB Reference Range:<6.7 Normal6.7-10.0 Borderline>10.0 AbnormalTROPONIN [id number] 04:03:00 Test Item Value Reference Range Comments TROPONIN I (BEAKER) (test lxmr=198) < ng/mL 0.00-0.03 Troponin I (TnI) levels [...] failure, acidosis, acute neurological disease, and persistent tachyarrhythmia.[id number] 03:53:00 Test Item Value Reference Range Comments PHOSPHORUS (BEAKER) (test bffa=135) 3.5 mg/dL 2.3-4.7 [id number] 03:53:00 Test Item Value Reference Range Comments MAGNESIUM (BEAKER) (test hxhd=896) 1.7 mg/dL 1.6-2.6 BASIC METABOLIC [id number] 03:53:00 Test Item Value Reference Range Comments SODIUM (BEAKER) (test 137 meq/L 136-145 bihx=661) POTASSIUM (BEAKER) (test 3.8 meq/L 3.5-5.1 cmdb=196) CHLORIDE (BEAKER) (test 105 meq/L 98-107 gfpa=247) CO2 (BEAKER) (test 23 meq/L 22-29 bsiz=488) BLOOD UREA NITROGEN 7 mg/dL 7-21 (BEAKER) (test ebmu=702) CREATININE (BEAKER) (test 0.62 mg/dL 0.57-1.25 yolu=310) GLUCOSE RANDOM (BEAKER) 102 mg/dL 70-105 (test zdao=567) CALCIUM (BEAKER) (test 9.0 mg/dL 8.4-10.2 vbhw=540) EGFR (BEAKER) (test 145 mL/min/1.73 sq m ESTIMATED GFR IS NOT ujlp=5775) ACCURATE CREATININE CLEARANCE IN PREDICTING GLOMERULAR FILTRATION RATE. ESTIMATED GFR IS NOT APPLICABLE FOR DIALYSIS PATIENTS. LIPID [id number] 03:53:00 Test Item Value Reference Range Comments TRIGLYCERIDES (BEAKER) (test lmfn=999) 76 mg/dL CHOLESTEROL (BEAKER) (test yrnd=799) 118 mg/dL HDL CHOLESTEROL (BEAKER) (test czin=312) 37 mg/dL LDL CHOLESTEROL CALCULATED (BEAKER) (test 66 mg/dL krpc=884) Triglyceride Reference Range: Low Risk <150 Borderline 150- 199 High Risk 200-499 Very High Risk >=500Cholesterol Reference Range: Low Risk <200 Borderline 200-239 High Risk > 240HDL Cholesterol Reference Range: Low Risk >=60 High Risk <40LDL Cholesterol Reference Range: Optimal <100 Near Optimal 100-129 Borderline 130-159 High 160-189 Very High >=190HEPATIC FUNCTION [id number] 03:53:00 Test Item Value Reference Range Comments TOTAL PROTEIN (BEAKER) (test fhvj=607) 6.8 gm/dL 6.0-8.3 ALBUMIN (BEAKER) (test guwn=6938) 3.9 g/dL 3.5-5.0 BILIRUBIN TOTAL (BEAKER) (test fwwr=498) 1.2 mg/dL 0.2-1.2 BILIRUBIN DIRECT (BEAKER) (test cgob=680) 0.5 mg/dL 0.1-0.5 ALKALINE PHOSPHATASE (BEAKER) (test vpuu=267) 81 U/L 40-150 AST (SGOT) (BEAKER) (test ejzi=226) 13 U/L 5-34 ALT (SGPT) (BEAKER) (test ixkd=505) 6 U/L 6-55 [id number] 03:53:00 Test Item Value Reference Range Comments AMYLASE (BEAKER) (test nelo=187) 383 U/L 25-125 [id number] 03:53:00 Test Item Value Reference Range Comments LIPASE (BEAKER) (test uley=447) 266 U/L 8-78 C-REACTIVE [id number] 03:53:00 Test Item Value Reference Range Comments C-REACTIVE PROTEIN (BEAKER) (test awsu=586) 0.23 mg/dL 0.00-0.50 CBC W/PLT COUNT & AUTO [id number] 03:38:00 Test Item Value Reference Range Comments WHITE BLOOD CELL COUNT (BEAKER) (test uomz=225) 10.7 K/ L 3.5-10.5 RED BLOOD CELL COUNT (BEAKER) (test ztiv=564) 4.45 M/ L 4.63-6.08 HEMOGLOBIN (BEAKER) (test ryft=379) 13.6 GM/DL 13.7-17.5 HEMATOCRIT (BEAKER) (test rfbx=036) 40.4 % 40.1-51.0 MEAN CORPUSCULAR VOLUME (BEAKER) (test euao=185) 90.8 fL 79.0-92.2 MEAN CORPUSCULAR HEMOGLOBIN (BEAKER) (test 30.6 pg 25.7-32.2 poqb=289) MEAN CORPUSCULAR HEMOGLOBIN CONC (BEAKER) (test 33.7 GM/DL 32.3-36.5 nrgu=611) RED CELL DISTRIBUTION WIDTH (BEAKER) (test 15.5 % 11.6-14.4 jfnq=094) PLATELET COUNT (BEAKER) (test aafv=974) 277 K/CU MM 150-450 MEAN PLATELET VOLUME (BEAKER) (test hggo=054) 9.7 fL 9.4-12.4 NUCLEATED RED BLOOD CELLS (BEAKER) (test 0 /100 WBC 0-0 wryc=970) NEUTROPHILS RELATIVE PERCENT (BEAKER) (test 70 % lcjk=388) LYMPHOCYTES RELATIVE PERCENT (BEAKER) (test 18 % czhr=378) MONOCYTES RELATIVE PERCENT (BEAKER) (test 11 % yfcg=953) EOSINOPHILS RELATIVE PERCENT (BEAKER) (test 0 % aagj=174) BASOPHILS RELATIVE PERCENT (BEAKER) (test 0 % kwpg=739) NEUTROPHILS ABSOLUTE COUNT (BEAKER) (test 7.46 K/ L 1.78-5.38 hqmd=446) LYMPHOCYTES ABSOLUTE COUNT (BEAKER) (test 1.93 K/ L 1.32-3.57 boub=639) MONOCYTES ABSOLUTE COUNT (BEAKER) (test 1.17 K/ L 0.30-0.82 ecar=526) EOSINOPHILS ABSOLUTE COUNT (BEAKER) (test 0.02 K/ L 0.04-0.54 qtla=269) BASOPHILS ABSOLUTE COUNT (BEAKER) (test 0.03 K/ L 0.01-0.08 elqa=808) IMMATURE GRANULOCYTES-RELATIVE PERCENT (BEAKER) 0 % 0-1 (test kwoi=7229) COMPREHENSIVE METABOLIC [id number] 14:02:00 Test Item Value Reference Range Comments TOTAL PROTEIN (BEAKER) 7.8 gm/dL 6.0-8.3 (test chkn=035) ALBUMIN (BEAKER) (test 3.9 g/dL 3.5-5.0 cwdm=9082) ALKALINE PHOSPHATASE 62 U/L 40-150 (BEAKER) (test lzok=097) BILIRUBIN TOTAL (BEAKER) 0.3 mg/dL 0.2-1.2 (test ybak=385) SODIUM (BEAKER) (test 139 meq/L 136-145 oozx=021) POTASSIUM (BEAKER) (test 4.2 meq/L 3.5-5.1 clmc=637) CHLORIDE (BEAKER) (test 104 meq/L 98-107 wueu=295) CO2 (BEAKER) (test 26 meq/L 22-29 wfvf=614) BLOOD UREA NITROGEN 9 mg/dL 7-21 (BEAKER) (test fkfb=529) CREATININE (BEAKER) (test 0.64 mg/dL 0.57-1.25 tmqd=028) GLUCOSE RANDOM (BEAKER) 78 mg/dL 70-105 (test tivw=360) CALCIUM (BEAKER) (test 9.5 mg/dL 8.4-10.2 hagp=754) AST (SGOT) (BEAKER) (test 18 U/L 5-34 npbl=125) ALT (SGPT) (BEAKER) (test 8 U/L 6-55 ehrb=933) EGFR (BEAKER) (test 141 mL/min/1.73 sq ESTIMATED GFR IS NOT jgtt=7903) m ACCURATE CREATININE CLEARANCE IN PREDICTING GLOMERULAR FILTRATION RATE. ESTIMATED GFR IS NOT APPLICABLE FOR DIALYSIS PATIENTS. COMPREHENSIVE METABOLIC [id number] 06:08:00 Test Item Value Reference Range Comments TOTAL PROTEIN (BEAKER) 7.0 gm/dL 6.0-8.3 Specimen slightly (test trxh=177) hemolyzed ALBUMIN (BEAKER) (test 3.4 g/dL 3.5-5.0 Specimen slightly crsp=4411) hemolyzed ALKALINE PHOSPHATASE 58 U/L 40-150 (BEAKER) (test urxe=967) BILIRUBIN TOTAL (BEAKER) 0.4 mg/dL 0.2-1.2 Specimen slightly (test zvuq=760) hemolyzed SODIUM (BEAKER) (test 139 meq/L 136-145 fqjq=979) POTASSIUM (BEAKER) (test 4.5 meq/L 3.5-5.1 Specimen slightly xhkn=473) hemolyzed CHLORIDE (BEAKER) (test 103 meq/L 98-107 kfrf=667) CO2 (BEAKER) (test 27 meq/L 22-29 kvgd=140) BLOOD UREA NITROGEN 2 mg/dL 7-21 (BEAKER) (test xmfs=888) CREATININE (BEAKER) (test 0.55 mg/dL 0.57-1.25 Specimen slightly ozof=749) hemolyzed GLUCOSE RANDOM (BEAKER) 85 mg/dL 70-105 (test tekm=999) CALCIUM (BEAKER) (test 9.3 mg/dL 8.4-10.2 tyaa=879) AST (SGOT) (BEAKER) (test 18 U/L 5-34 Specimen slightly blwc=077) hemolyzed ALT (SGPT) (BEAKER) (test 8 U/L 6-55 Specimen slightly xpyu=160) hemolyzed EGFR (BEAKER) (test 168 mL/min/1.73 sq ESTIMATED GFR IS NOT zbfb=0664) m ACCURATE CREATININE CLEARANCE IN PREDICTING GLOMERULAR FILTRATION RATE. ESTIMATED GFR IS NOT APPLICABLE FOR DIALYSIS PATIENTS. CBC (HEMOGRAM ONLY)2017-05-17 05:20:00 Test Item Value Reference Range Comments WHITE BLOOD CELL COUNT (BEAKER) (test itcg=522) 6.4 K/ L 3.5-10.5 RED BLOOD CELL COUNT (BEAKER) (test mgfc=598) 3.84 M/ L 4.63-6.08 HEMOGLOBIN (BEAKER) (test uxdi=195) 11.5 GM/DL 13.7-17.5 HEMATOCRIT (BEAKER) (test zggp=261) 35.2 % 40.1-51.0 MEAN CORPUSCULAR VOLUME (BEAKER) (test sccm=262) 91.7 fL 79.0-92.2 MEAN CORPUSCULAR HEMOGLOBIN (BEAKER) (test 29.9 pg 25.7-32.2 viwe=320) MEAN CORPUSCULAR HEMOGLOBIN CONC (BEAKER) (test 32.7 GM/DL 32.3-36.5 cnwa=084) RED CELL DISTRIBUTION WIDTH (BEAKER) (test 14.1 % 11.6-14.4 ujav=998) PLATELET COUNT (BEAKER) (test qsnn=433) 434 K/CU MM 150-450 MEAN PLATELET VOLUME (BEAKER) (test iobp=426) 9.4 fL 9.4-12.4 NUCLEATED RED BLOOD CELLS (BEAKER) (test 0 /100 WBC 0-0 egwl=907) HEPATIC FUNCTION [id number] 11:22:00 Test Item Value Reference Range Comments TOTAL PROTEIN (BEAKER) (test hmjk=224) 6.9 gm/dL 6.0-8.3 ALBUMIN (BEAKER) (test kczy=3276) 3.4 g/dL 3.5-5.0 BILIRUBIN TOTAL (BEAKER) (test fuum=842) 0.4 mg/dL 0.2-1.2 BILIRUBIN DIRECT (BEAKER) (test oonm=678) 0.2 mg/dL 0.1-0.5 ALKALINE PHOSPHATASE (BEAKER) (test kvfq=787) 65 U/L 40-150 AST (SGOT) (BEAKER) (test pdbe=955) 14 U/L 5-34 ALT (SGPT) (BEAKER) (test sfya=815) 8 U/L 6-55 CBC W/PLT COUNT & AUTO [id number] 11:16:00 Test Item Value Reference Range Comments WHITE BLOOD CELL COUNT (BEAKER) (test tjir=371) 7.0 K/ L 3.5-10.5 RED BLOOD CELL COUNT (BEAKER) (test fpwi=987) 3.90 M/ L 4.63-6.08 HEMOGLOBIN (BEAKER) (test ipqd=501) 11.9 GM/DL 13.7-17.5 HEMATOCRIT (BEAKER) (test uxui=123) 35.7 % 40.1-51.0 MEAN CORPUSCULAR VOLUME (BEAKER) (test ofeq=291) 91.5 fL 79.0-92.2 MEAN CORPUSCULAR HEMOGLOBIN (BEAKER) (test 30.5 pg 25.7-32.2 cozf=572) MEAN CORPUSCULAR HEMOGLOBIN CONC (BEAKER) (test 33.3 GM/DL 32.3-36.5 psgc=808) RED CELL DISTRIBUTION WIDTH (BEAKER) (test 14.0 % 11.6-14.4 hjhd=043) PLATELET COUNT (BEAKER) (test dxfj=222) 452 K/CU MM 150-450 MEAN PLATELET VOLUME (BEAKER) (test zqmz=396) 9.0 fL 9.4-12.4 NUCLEATED RED BLOOD CELLS (BEAKER) (test 0 /100 WBC 0-0 dufv=182) NEUTROPHILS RELATIVE PERCENT (BEAKER) (test 59 % fdaw=316) LYMPHOCYTES RELATIVE PERCENT (BEAKER) (test 21 % ucec=543) MONOCYTES RELATIVE PERCENT (BEAKER) (test 8 % pjcu=789) EOSINOPHILS RELATIVE PERCENT (BEAKER) (test 10 % lqjg=064) BASOPHILS RELATIVE PERCENT (BEAKER) (test 1 % tupd=252) NEUTROPHILS ABSOLUTE COUNT (BEAKER) (test 4.12 K/ L 1.78-5.38 qwre=152) LYMPHOCYTES ABSOLUTE COUNT (BEAKER) (test 1.45 K/ L 1.32-3.57 jljj=682) MONOCYTES ABSOLUTE COUNT (BEAKER) (test 0.58 K/ L 0.30-0.82 xyfe=754) EOSINOPHILS ABSOLUTE COUNT (BEAKER) (test 0.70 K/ L 0.04-0.54 qsyd=680) BASOPHILS ABSOLUTE COUNT (BEAKER) (test 0.10 K/ L 0.01-0.08 irhy=181) IMMATURE GRANULOCYTES-RELATIVE PERCENT (BEAKER) 0 % 0-1 (test drjo=3056) BASIC METABOLIC [id number] 06:43:00 Test Item Value Reference Range Comments SODIUM (BEAKER) (test 138 meq/L 136-145 fwne=421) POTASSIUM (BEAKER) (test 3.5 meq/L 3.5-5.1 jfkf=119) CHLORIDE (BEAKER) (test 100 meq/L 98-107 shls=462) CO2 (BEAKER) (test 27 meq/L 22-29 jeyt=254) BLOOD UREA NITROGEN 2 mg/dL 7-21 (BEAKER) (test jkha=086) CREATININE (BEAKER) (test 0.53 mg/dL 0.57-1.25 gwsl=315) GLUCOSE RANDOM (BEAKER) 82 mg/dL 70-105 (test awky=133) CALCIUM (BEAKER) (test 9.0 mg/dL 8.4-10.2 bpmb=071) EGFR (BEAKER) (test 175 mL/min/1.73 sq m ESTIMATED GFR IS NOT lxaf=8908) ACCURATE CREATININE CLEARANCE IN PREDICTING GLOMERULAR FILTRATION RATE. ESTIMATED GFR IS NOT APPLICABLE FOR DIALYSIS PATIENTS. BASIC METABOLIC [id number] 05:14:00 Test Item Value Reference Range Comments SODIUM (BEAKER) (test 132 meq/L 136-145 efug=262) POTASSIUM (BEAKER) (test 3.8 meq/L 3.5-5.1 ajgn=330) CHLORIDE (BEAKER) (test 101 meq/L 98-107 fqgl=471) CO2 (BEAKER) (test 18 meq/L 22-29 iyoh=814) BLOOD UREA NITROGEN 4 mg/dL 7-21 (BEAKER) (test fvlp=861) CREATININE (BEAKER) (test 0.52 mg/dL 0.57-1.25 bqpb=174) GLUCOSE RANDOM (BEAKER) 58 mg/dL 70-105 (test dlpb=658) CALCIUM (BEAKER) (test 8.7 mg/dL 8.4-10.2 gido=532) EGFR (BEAKER) (test 179 mL/min/1.73 sq m ESTIMATED GFR IS NOT dtyj=0219) ACCURATE CREATININE CLEARANCE IN PREDICTING GLOMERULAR FILTRATION RATE. ESTIMATED GFR IS NOT APPLICABLE FOR DIALYSIS PATIENTS. CBC (HEMOGRAM ONLY)2017-05-15 04:57:00 Test Item Value Reference Range Comments WHITE BLOOD CELL COUNT (BEAKER) (test ddqd=844) 13.4 K/ L 3.5-10.5 RED BLOOD CELL COUNT (BEAKER) (test wier=445) 3.81 M/ L 4.63-6.08 HEMOGLOBIN (BEAKER) (test auzj=662) 11.4 GM/DL 13.7-17.5 HEMATOCRIT (BEAKER) (test chdq=064) 35.1 % 40.1-51.0 MEAN CORPUSCULAR VOLUME (BEAKER) (test tzie=634) 92.1 fL 79.0-92.2 MEAN CORPUSCULAR HEMOGLOBIN (BEAKER) (test 29.9 pg 25.7-32.2 wewr=006) MEAN CORPUSCULAR HEMOGLOBIN CONC (BEAKER) (test 32.5 GM/DL 32.3-36.5 aegt=418) RED CELL DISTRIBUTION WIDTH (BEAKER) (test 14.3 % 11.6-14.4 fqnb=196) PLATELET COUNT (BEAKER) (test smwt=431) 502 K/CU MM 150-450 MEAN PLATELET VOLUME (BEAKER) (test szeu=732) 9.6 fL 9.4-12.4 NUCLEATED RED BLOOD CELLS (BEAKER) (test 0 /100 WBC 0-0 wlbs=346) LIPID [id number] 05:00:00 Test Item Value Reference Range Comments TRIGLYCERIDES (BEAKER) (test ygot=226) 71 mg/dL CHOLESTEROL (BEAKER) (test ztcc=585) 108 mg/dL HDL CHOLESTEROL (BEAKER) (test koww=991) 22 mg/dL LDL CHOLESTEROL CALCULATED (BEAKER) (test 72 mg/dL njgo=146) Triglyceride Reference Range: Low Risk <150 Borderline 150- 199 High Risk 200-499 Very High Risk >=500Cholesterol Reference Range: Low Risk <200 Borderline 200-239 High Risk > 240HDL Cholesterol Reference Range: Low Risk >=60 High Risk <40LDL Cholesterol Reference Range: Optimal <100 Near Optimal 100-129 Borderline 130-159 High 160-189 Very High >=190BASIC METABOLIC [id number] 05:00:00 Test Item Value Reference Range Comments SODIUM (BEAKER) (test 133 meq/L 136-145 vqxo=482) POTASSIUM (BEAKER) (test 4.1 meq/L 3.5-5.1 nrqq=733) CHLORIDE (BEAKER) (test 105 meq/L 98-107 czhw=019) CO2 (BEAKER) (test 17 meq/L 22-29 bxjj=228) BLOOD UREA NITROGEN 8 mg/dL 7-21 (BEAKER) (test dbdu=730) CREATININE (BEAKER) (test 0.51 mg/dL 0.57-1.25 dlfw=386) GLUCOSE RANDOM (BEAKER) 54 mg/dL 70-105 (test opsm=333) CALCIUM (BEAKER) (test 8.4 mg/dL 8.4-10.2 bpfq=167) EGFR (BEAKER) (test 183 mL/min/1.73 sq m ESTIMATED GFR IS NOT xkdz=2774) ACCURATE CREATININE CLEARANCE IN PREDICTING GLOMERULAR FILTRATION RATE. ESTIMATED GFR IS NOT APPLICABLE FOR DIALYSIS PATIENTS. HEPATIC FUNCTION [id number] 05:00:00 Test Item Value Reference Range Comments TOTAL PROTEIN (BEAKER) (test kxjk=327) 6.3 gm/dL 6.0-8.3 ALBUMIN (BEAKER) (test eyrt=8314) 3.2 g/dL 3.5-5.0 BILIRUBIN TOTAL (BEAKER) (test ubxv=338) 0.7 mg/dL 0.2-1.2 BILIRUBIN DIRECT (BEAKER) (test zhze=065) 0.3 mg/dL 0.1-0.5 ALKALINE PHOSPHATASE (BEAKER) (test ytdl=152) 62 U/L 40-150 AST (SGOT) (BEAKER) (test jrrn=319) 13 U/L 5-34 ALT (SGPT) (BEAKER) (test zjzh=270) 9 U/L 6-55 [id number] 05:00:00 Test Item Value Reference Range Comments LIPASE (BEAKER) (test nbgd=140) 1007 U/L 8-78 CBC (HEMOGRAM ONLY)2017-05-14 04:39:00 Test Item Value Reference Range Comments WHITE BLOOD CELL COUNT (BEAKER) (test caaa=039) 16.6 K/ L 3.5-10.5 RED BLOOD CELL COUNT (BEAKER) (test mgwl=260) 3.98 M/ L 4.63-6.08 HEMOGLOBIN (BEAKER) (test yxmi=089) 12.0 GM/DL 13.7-17.5 HEMATOCRIT (BEAKER) (test kbly=624) 37.2 % 40.1-51.0 MEAN CORPUSCULAR VOLUME (BEAKER) (test uwvs=812) 93.5 fL 79.0-92.2 MEAN CORPUSCULAR HEMOGLOBIN (BEAKER) (test 30.2 pg 25.7-32.2 zrir=788) MEAN CORPUSCULAR HEMOGLOBIN CONC (BEAKER) (test 32.3 GM/DL 32.3-36.5 pnae=673) RED CELL DISTRIBUTION WIDTH (BEAKER) (test 14.5 % 11.6-14.4 vtqm=447) PLATELET COUNT (BEAKER) (test ampd=196) 527 K/CU MM 150-450 MEAN PLATELET VOLUME (BEAKER) (test iojn=691) 9.5 fL 9.4-12.4 NUCLEATED RED BLOOD CELLS (BEAKER) (test 0 /100 WBC 0-0 albj=999) MR, ABDOMEN, [id number] 12:25:00FINAL REPORT MRI of the abdomen, MRCP. [...] MDReport Verified Date/Time: 03/13/2017 12:25:41 Reading Location: [facility] [id number] [facility] Reading Room Electronically signed by: KIKO VEE M.D. on 12:25 [facility] [id number] 05:05:00 Test Item Value Reference Range Comments SODIUM (BEAKER) (test 139 meq/L 136-145 azwi=891) POTASSIUM (BEAKER) (test 3.7 meq/L 3.5-5.1 oyhf=522) CHLORIDE (BEAKER) (test 108 meq/L 98-107 hhja=340) CO2 (BEAKER) (test 22 meq/L 22-29 liqh=133) BLOOD UREA NITROGEN 4 mg/dL 7-21 (BEAKER) (test elgb=358) CREATININE (BEAKER) (test 0.58 mg/dL 0.57-1.25 qpsf=201) GLUCOSE RANDOM (BEAKER) 95 mg/dL 70-105 (test sbyj=123) CALCIUM (BEAKER) (test 8.5 mg/dL 8.4-10.2 tdmw=891) EGFR (BEAKER) (test 158 mL/min/1.73 sq m ESTIMATED GFR IS NOT rrxu=0307) ACCURATE CREATININE CLEARANCE IN PREDICTING GLOMERULAR FILTRATION RATE. ESTIMATED GFR IS NOT APPLICABLE FOR DIALYSIS PATIENTS. CBC W/PLT COUNT & AUTO [id number] 04:49:00 Test Item Value Reference Range Comments WHITE BLOOD CELL COUNT (BEAKER) (test gkit=721) 6.3 K/ L 3.5-10.5 RED BLOOD CELL COUNT (BEAKER) (test jmmi=380) 4.32 M/ L 4.63-6.08 HEMOGLOBIN (BEAKER) (test dwfq=948) 13.7 GM/DL 13.7-17.5 HEMATOCRIT (BEAKER) (test acgv=798) 40.3 % 40.1-51.0 MEAN CORPUSCULAR VOLUME (BEAKER) (test wdnn=164) 93.3 fL 79.0-92.2 MEAN CORPUSCULAR HEMOGLOBIN (BEAKER) (test 31.7 pg 25.7-32.2 ykhy=102) MEAN CORPUSCULAR HEMOGLOBIN CONC (BEAKER) (test 34.0 GM/DL 32.3-36.5 cnxy=784) RED CELL DISTRIBUTION WIDTH (BEAKER) (test 11.9 % 11.6-14.4 hshj=258) PLATELET COUNT (BEAKER) (test lsbf=162) 286 K/CU MM 150-450 MEAN PLATELET VOLUME (BEAKER) (test bruz=744) 9.4 fL 9.4-12.4 NUCLEATED RED BLOOD CELLS (BEAKER) (test 0 /100 WBC 0-0 nrxc=392) NEUTROPHILS RELATIVE PERCENT (BEAKER) (test 51 % aedb=113) LYMPHOCYTES RELATIVE PERCENT (BEAKER) (test 31 % vddw=815) MONOCYTES RELATIVE PERCENT (BEAKER) (test 11 % qjcd=717) EOSINOPHILS RELATIVE PERCENT (BEAKER) (test 6 % sewl=392) BASOPHILS RELATIVE PERCENT (BEAKER) (test 1 % jtgb=379) NEUTROPHILS ABSOLUTE COUNT (BEAKER) (test 3.21 K/ L 1.78-5.38 xifj=413) LYMPHOCYTES ABSOLUTE COUNT (BEAKER) (test 1.91 K/ L 1.32-3.57 crrj=206) MONOCYTES ABSOLUTE COUNT (BEAKER) (test 0.68 K/ L 0.30-0.82 pmla=320) EOSINOPHILS ABSOLUTE COUNT (BEAKER) (test 0.40 K/ L 0.04-0.54 joow=275) BASOPHILS ABSOLUTE COUNT (BEAKER) (test 0.04 K/ L 0.01-0.08 vaja=352) IMMATURE GRANULOCYTES-RELATIVE PERCENT (BEAKER) 1 % 0-1 (test egko=3231) CBC W/PLT COUNT & AUTO [id number] 04:52:00 Test Item Value Reference Range Comments WHITE BLOOD CELL COUNT (BEAKER) (test qgux=781) 6.2 K/ L 3.5-10.5 RED BLOOD CELL COUNT (BEAKER) (test myxn=271) 4.31 M/ L 4.63-6.08 HEMOGLOBIN (BEAKER) (test vtge=227) 13.7 GM/DL 13.7-17.5 HEMATOCRIT (BEAKER) (test foif=706) 41.1 % 40.1-51.0 MEAN CORPUSCULAR VOLUME (BEAKER) (test fxyl=745) 95.4 fL 79.0-92.2 MEAN CORPUSCULAR HEMOGLOBIN (BEAKER) (test 31.8 pg 25.7-32.2 nvvw=952) MEAN CORPUSCULAR HEMOGLOBIN CONC (BEAKER) (test 33.3 GM/DL 32.3-36.5 mdpn=425) RED CELL DISTRIBUTION WIDTH (BEAKER) (test 12.1 % 11.6-14.4 ddzz=806) PLATELET COUNT (BEAKER) (test iqlm=813) 295 K/CU MM 150-450 MEAN PLATELET VOLUME (BEAKER) (test ezuc=010) 9.5 fL 9.4-12.4 NUCLEATED RED BLOOD CELLS (BEAKER) (test 0 /100 WBC 0-0 hxwg=539) NEUTROPHILS RELATIVE PERCENT (BEAKER) (test 51 % kqaj=467) LYMPHOCYTES RELATIVE PERCENT (BEAKER) (test 31 % igsw=520) MONOCYTES RELATIVE PERCENT (BEAKER) (test 11 % cigk=252) EOSINOPHILS RELATIVE PERCENT (BEAKER) (test 7 % babc=093) BASOPHILS RELATIVE PERCENT (BEAKER) (test 1 % adla=667) NEUTROPHILS ABSOLUTE COUNT (BEAKER) (test 3.17 K/ L 1.78-5.38 tjfe=681) LYMPHOCYTES ABSOLUTE COUNT (BEAKER) (test 1.89 K/ L 1.32-3.57 vson=031) MONOCYTES ABSOLUTE COUNT (BEAKER) (test 0.65 K/ L 0.30-0.82 bwmo=813) EOSINOPHILS ABSOLUTE COUNT (BEAKER) (test 0.41 K/ L 0.04-0.54 rfmu=716) BASOPHILS ABSOLUTE COUNT (BEAKER) (test 0.05 K/ L 0.01-0.08 rxgq=632) IMMATURE GRANULOCYTES-RELATIVE PERCENT (BEAKER) 1 % 0-1 (test dmpg=1568) COMPREHENSIVE METABOLIC [id number] 11:20:00 Test Item Value Reference Range Comments TOTAL PROTEIN (BEAKER) 7.2 gm/dL 6.0-8.3 (test zdim=691) ALBUMIN (BEAKER) (test 3.7 g/dL 3.5-5.0 qaql=1606) ALKALINE PHOSPHATASE 73 U/L 40-150 (BEAKER) (test lmwk=094) BILIRUBIN TOTAL (BEAKER) 0.6 mg/dL 0.2-1.2 (test nghd=082) SODIUM (BEAKER) (test 135 meq/L 136-145 vkjc=533) POTASSIUM (BEAKER) (test 5.0 meq/L 3.5-5.1 sbpj=927) CHLORIDE (BEAKER) (test 109 meq/L 98-107 prjk=006) CO2 (BEAKER) (test 14 meq/L 22-29 dtei=596) BLOOD UREA NITROGEN 6 mg/dL 7-21 (BEAKER) (test nuak=903) CREATININE (BEAKER) (test 0.62 mg/dL 0.57-1.25 rvfi=054) GLUCOSE RANDOM (BEAKER) 45 mg/dL 70-105 (test xekh=703) CALCIUM (BEAKER) (test 8.6 mg/dL 8.4-10.2 fxte=304) AST (SGOT) (BEAKER) (test 17 U/L 5-34 jdfu=281) ALT (SGPT) (BEAKER) (test 14 U/L 6-55 mpcl=463) EGFR (BEAKER) (test 146 mL/min/1.73 sq ESTIMATED GFR IS NOT mhce=1221) m ACCURATE CREATININE CLEARANCE IN PREDICTING GLOMERULAR FILTRATION RATE. ESTIMATED GFR IS NOT APPLICABLE FOR DIALYSIS PATIENTS. CBC W/PLT COUNT & AUTO [id number] 09:54:00 Test Item Value Reference Range Comments WHITE BLOOD CELL COUNT (BEAKER) (test ypww=022) 7.4 K/ L 3.5-10.5 RED BLOOD CELL COUNT (BEAKER) (test cdhs=052) 4.32 M/ L 4.63-6.08 HEMOGLOBIN (BEAKER) (test hijv=737) 13.6 GM/DL 13.7-17.5 HEMATOCRIT (BEAKER) (test ggxf=861) 41.8 % 40.1-51.0 MEAN CORPUSCULAR VOLUME (BEAKER) (test ogwz=610) 96.8 fL 79.0-92.2 MEAN CORPUSCULAR HEMOGLOBIN (BEAKER) (test 31.5 pg 25.7-32.2 mmfp=141) MEAN CORPUSCULAR HEMOGLOBIN CONC (BEAKER) (test 32.5 GM/DL 32.3-36.5 wjrm=811) RED CELL DISTRIBUTION WIDTH (BEAKER) (test 12.1 % 11.6-14.4 qris=658) PLATELET COUNT (BEAKER) (test wrsf=186) 277 K/CU MM 150-450 MEAN PLATELET VOLUME (BEAKER) (test qmii=990) 9.7 fL 9.4-12.4 NUCLEATED RED BLOOD CELLS (BEAKER) (test 0 /100 WBC 0-0 owwd=003) NEUTROPHILS RELATIVE PERCENT (BEAKER) (test 57 % kdma=592) LYMPHOCYTES RELATIVE PERCENT (BEAKER) (test 29 % vlbm=747) MONOCYTES RELATIVE PERCENT (BEAKER) (test 8 % olaw=668) EOSINOPHILS RELATIVE PERCENT (BEAKER) (test 5 % ifuf=738) BASOPHILS RELATIVE PERCENT (BEAKER) (test 1 % gpvh=430) NEUTROPHILS ABSOLUTE COUNT (BEAKER) (test 4.23 K/ L 1.78-5.38 bvip=459) LYMPHOCYTES ABSOLUTE COUNT (BEAKER) (test 2.10 K/ L 1.32-3.57 furq=312) MONOCYTES ABSOLUTE COUNT (BEAKER) (test 0.57 K/ L 0.30-0.82 lqkq=909) EOSINOPHILS ABSOLUTE COUNT (BEAKER) (test 0.38 K/ L 0.04-0.54 fhuh=985) BASOPHILS ABSOLUTE COUNT (BEAKER) (test 0.05 K/ L 0.01-0.08 ngny=153) IMMATURE GRANULOCYTES-RELATIVE PERCENT (BEAKER) 1 % 0-1 (test ffvs=2969) (MANUAL DIFFERENTIAL)2017-03-11 09:54:00 Test Item Value Reference Range Comments TOTAL COUNTED (BEAKER) (test qvzo=5755) WBC MORPHOLOGY (BEAKER) (test azzj=268) Normal PLT MORPHOLOGY (BEAKER) (test pnzl=287) Normal RBC MORPHOLOGY (BEAKER) (test odzo=450) Normal CBC W/PLT COUNT & AUTO [id number] 09:09:00 Test Item Value Reference Range Comments WHITE BLOOD CELL COUNT (BEAKER) (test delu=880) 8.9 K/ L 3.5-10.5 RED BLOOD CELL COUNT (BEAKER) (test kyzl=450) 4.25 M/ L 4.63-6.08 HEMOGLOBIN (BEAKER) (test xbgu=468) 13.6 GM/DL 13.7-17.5 HEMATOCRIT (BEAKER) (test zxjx=757) 40.7 % 40.1-51.0 MEAN CORPUSCULAR VOLUME (BEAKER) (test dcvl=106) 95.8 fL 79.0-92.2 MEAN CORPUSCULAR HEMOGLOBIN (BEAKER) (test 32.0 pg 25.7-32.2 yzza=702) MEAN CORPUSCULAR HEMOGLOBIN CONC (BEAKER) (test 33.4 GM/DL 32.3-36.5 heol=864) RED CELL DISTRIBUTION WIDTH (BEAKER) (test 12.1 % 11.6-14.4 prfq=172) PLATELET COUNT (BEAKER) (test qlsv=534) 274 K/CU MM 150-450 MEAN PLATELET VOLUME (BEAKER) (test osmz=323) 9.8 fL 9.4-12.4 NUCLEATED RED BLOOD CELLS (BEAKER) (test 0 /100 WBC 0-0 dgan=447) NEUTROPHILS RELATIVE PERCENT (BEAKER) (test 62 % gkyk=824) LYMPHOCYTES RELATIVE PERCENT (BEAKER) (test 24 % nbcn=629) MONOCYTES RELATIVE PERCENT (BEAKER) (test 7 % ojcb=850) EOSINOPHILS RELATIVE PERCENT (BEAKER) (test 5 % iurr=483) BASOPHILS RELATIVE PERCENT (BEAKER) (test 1 % bnfh=190) NEUTROPHILS ABSOLUTE COUNT (BEAKER) (test 5.55 K/ L 1.78-5.38 mnwk=890) LYMPHOCYTES ABSOLUTE COUNT (BEAKER) (test 2.14 K/ L 1.32-3.57 skvk=639) MONOCYTES ABSOLUTE COUNT (BEAKER) (test 0.64 K/ L 0.30-0.82 bndd=115) EOSINOPHILS ABSOLUTE COUNT (BEAKER) (test 0.48 K/ L 0.04-0.54 rksq=195) BASOPHILS ABSOLUTE COUNT (BEAKER) (test 0.07 K/ L 0.01-0.08 cvte=279) IMMATURE GRANULOCYTES-RELATIVE PERCENT (BEAKER) 0 % 0-1 (test hxck=3498) (MANUAL DIFFERENTIAL)2017-03-10 09:09:00 Test Item Value Reference Range Comments TOTAL COUNTED (BEAKER) (test owty=6801) WBC MORPHOLOGY (BEAKER) (test lfhz=354) Normal PLT MORPHOLOGY (BEAKER) (test ahlb=688) Normal RBC MORPHOLOGY (BEAKER) (test bbjn=286) Normal COMPREHENSIVE METABOLIC [id number] 07:30:00 Test Item Value Reference Range Comments TOTAL PROTEIN (BEAKER) 6.8 gm/dL 6.0-8.3 (test fcua=864) ALBUMIN (BEAKER) (test 3.6 g/dL 3.5-5.0 onto=8638) ALKALINE PHOSPHATASE 77 U/L 40-150 (BEAKER) (test ixua=213) BILIRUBIN TOTAL (BEAKER) 0.6 mg/dL 0.2-1.2 (test gwhy=851) SODIUM (BEAKER) (test 136 meq/L 136-145 wnle=330) POTASSIUM (BEAKER) (test 4.3 meq/L 3.5-5.1 slkd=408) CHLORIDE (BEAKER) (test 105 meq/L 98-107 mukt=703) CO2 (BEAKER) (test 19 meq/L 22-29 bdxb=808) BLOOD UREA NITROGEN 6 mg/dL 7-21 (BEAKER) (test dvty=685) CREATININE (BEAKER) (test 0.57 mg/dL 0.57-1.25 nqev=918) GLUCOSE RANDOM (BEAKER) 52 mg/dL 70-105 (test ivbc=690) CALCIUM (BEAKER) (test 8.2 mg/dL 8.4-10.2 mknw=771) AST (SGOT) (BEAKER) (test 17 U/L 5-34 vqmt=538) ALT (SGPT) (BEAKER) (test 14 U/L 6-55 duoi=769) EGFR (BEAKER) (test 161 mL/min/1.73 sq ESTIMATED GFR IS NOT oasz=2150) m ACCURATE CREATININE CLEARANCE IN PREDICTING GLOMERULAR FILTRATION RATE. ESTIMATED GFR IS NOT APPLICABLE FOR DIALYSIS PATIENTS. CBC W/PLT COUNT & AUTO [id number] 10:49:00 Test Item Value Reference Range Comments WHITE BLOOD CELL COUNT (BEAKER) (test dsqh=795) 6.9 K/ L 3.5-10.5 RED BLOOD CELL COUNT (BEAKER) (test mmyl=796) 3.83 M/ L 4.63-6.08 HEMOGLOBIN (BEAKER) (test ukfk=000) 12.5 GM/DL 13.7-17.5 HEMATOCRIT (BEAKER) (test zmxk=621) 36.7 % 40.1-51.0 MEAN CORPUSCULAR VOLUME (BEAKER) (test stth=544) 95.8 fL 79.0-92.2 MEAN CORPUSCULAR HEMOGLOBIN (BEAKER) (test 32.6 pg 25.7-32.2 vymn=700) MEAN CORPUSCULAR HEMOGLOBIN CONC (BEAKER) (test 34.1 GM/DL 32.3-36.5 sdfa=762) RED CELL DISTRIBUTION WIDTH (BEAKER) (test 12.4 % 11.6-14.4 cbar=604) PLATELET COUNT (BEAKER) (test qitg=694) 267 K/CU MM 150-450 MEAN PLATELET VOLUME (BEAKER) (test ecoj=492) 9.7 fL 9.4-12.4 NUCLEATED RED BLOOD CELLS (BEAKER) (test 0 /100 WBC 0-0 qdcn=412) NEUTROPHILS RELATIVE PERCENT (BEAKER) (test 60 % xgmn=998) LYMPHOCYTES RELATIVE PERCENT (BEAKER) (test 26 % razv=307) MONOCYTES RELATIVE PERCENT (BEAKER) (test 7 % biql=191) EOSINOPHILS RELATIVE PERCENT (BEAKER) (test 6 % qnxo=045) BASOPHILS RELATIVE PERCENT (BEAKER) (test 1 % emcu=268) NEUTROPHILS ABSOLUTE COUNT (BEAKER) (test 4.15 K/ L 1.78-5.38 brgr=886) LYMPHOCYTES ABSOLUTE COUNT (BEAKER) (test 1.82 K/ L 1.32-3.57 cukx=456) MONOCYTES ABSOLUTE COUNT (BEAKER) (test 0.47 K/ L 0.30-0.82 gdyn=394) EOSINOPHILS ABSOLUTE COUNT (BEAKER) (test 0.38 K/ L 0.04-0.54 ytzp=316) BASOPHILS ABSOLUTE COUNT (BEAKER) (test 0.04 K/ L 0.01-0.08 lwxn=841) COMPREHENSIVE METABOLIC [id number] 10:45:00 Test Item Value Reference Range Comments TOTAL PROTEIN (BEAKER) 6.2 gm/dL 6.0-8.3 (test fifs=163) ALBUMIN (BEAKER) (test 3.3 g/dL 3.5-5.0 lzwb=5795) ALKALINE PHOSPHATASE 70 U/L 40-150 (BEAKER) (test fphh=334) BILIRUBIN TOTAL (BEAKER) 0.4 mg/dL 0.2-1.2 (test qmsk=515) SODIUM (BEAKER) (test 138 meq/L 136-145 snbp=675) POTASSIUM (BEAKER) (test 3.5 meq/L 3.5-5.1 bend=999) CHLORIDE (BEAKER) (test 109 meq/L 98-107 fgpd=250) CO2 (BEAKER) (test 23 meq/L 22-29 hvrb=711) BLOOD UREA NITROGEN 5 mg/dL 7-21 (BEAKER) (test wtul=377) CREATININE (BEAKER) (test 0.54 mg/dL 0.57-1.25 dzqh=833) GLUCOSE RANDOM (BEAKER) 77 mg/dL 70-105 (test gdem=107) CALCIUM (BEAKER) (test 7.6 mg/dL 8.4-10.2 stsa=616) AST (SGOT) (BEAKER) (test 18 U/L 5-34 mhhz=966) ALT (SGPT) (BEAKER) (test 15 U/L 6-55 xkoy=672) EGFR (BEAKER) (test 171 mL/min/1.73 sq ESTIMATED GFR IS NOT sxqs=7163) m ACCURATE CREATININE CLEARANCE IN PREDICTING GLOMERULAR FILTRATION RATE. ESTIMATED GFR IS NOT APPLICABLE FOR DIALYSIS PATIENTS. [id number] 10:29:00 Test Item Value Reference Range Comments TRIGLYCERIDES (BEAKER) (test efsa=184) 58 mg/dL TRIGLYCERIDE REFERENCE RANGELow Risk <150Borderline Risk 150-199High Risk 200-499Very High Risk>=[id number] 10:29:00 Test Item Value Reference Range Comments MAGNESIUM (BEAKER) (test nlxo=154) 1.4 mg/dL 1.6-2.6 [id number] 10:29:00 Test Item Value Reference Range Comments LIPASE (BEAKER) (test oqbs=190) 536 U/L 8-78 PROTHROMBIN [id number] 10:22:00 Test Item Value Reference Range Comments PROTIME (BEAKER) (test lftw=573) 14.3 seconds 11.7-14.7 INR (BEAKER) (test vqjk=793) 1.1 <=5.9 RECOMMENDED COUMADIN/WARFARIN INR THERAPY RANGESSTANDARD DOSE: 2.0 - 3.0 Includes: PROPHYLAXIS forvenous thrombosis, systemic embolization; TREATMENT for venous thrombosis and/or pulmonary embolus.HIGH RISK: Target INR is 2.5-3.5 for patients with mechanical heart valves.
[2017-10-04] MEDS ORDERED: ONDANSETRON 4 MG/2 ML VIAL ONE (13:53)
[2017-10-04] MEDS ORDERED: Ringers Lactate 1,000 ML IV ONE (13:53)
[2017-10-04] MEDS ORDERED: MORPHINE 4 MG/ML SYR ONE ×2 (13:53→14:30)
[2017-10-04 14:22] LABS: Absolute Lymphocytes (CBC) 1.7 K/uL (0.7-4.9); Absolute Monocytes 0.8 K/uL (0.1-1.3); Basophils % 0.8 % (0-1.3); Hematocrit 38.2 % (39.6-49.0); MCH 30.9 pg (27.0-35.0); MCV 88.9 fL (80-100); Monocytes % 12.7 % (3.3-12.3)
[2017-10-04 14:35] LABS: ALT/SGPT 17 U/L (12-78); AST/SGOT 14 U/L (15-37); Albumin 4.2 g/dL (3.4-5.0); Alkaline Phosphatase 82 U/L (45-117); BUN Blood Urea Nitrogen 9 mg/dL (7-18); Bicarbonate 26 mmol/L (21-32); Bilirubin Direct < 0.1 mg/dL (0-0.2); Bilirubin Total 0.5 mg/dL (0.2-1.0); Glucose Level 85 mg/dL (74-106); Lipase 1674 U/L (73-393); Potassium 3.6 mmol/L (3.5-5.1); Protein, Total 8.3 g/dL (6.4-8.2); Sodium Level 140 mmol/L (136-145)
[2017-10-04 14:38] LABS: Amylase Level 241 U/L (25-115)
--- NOTE | 2017-10-04 15:07 | RAD REPORT ---
EXAM DESCRIPTION: CT - Abdomen Pelvis W Contrast - 10/04/2017 2:39 pm CLINICAL HISTORY: Abdominal pain with nausea. COMPARISON: September 13, 2017 TECHNIQUE: Computed axial tomography of the abdomen pelvis was obtained. 100 cc [id number]-300 was admin istered intravenously. Oral contrast was not requested which limits evaluation of bowel. All CT scans are performed using dose optimization technique as appropriate and may include automated exposure control or mA/KV adjustment according to patient size. FINDINGS: Coils have been placed into the right abdomen since the prior exam. Presumably these are v ascular coils and should be correlated clinically. A 3.7 centimeters pseudocyst within the region of the pancreatic head is decreased in size. Previously it measured 5.3 centimeters. The blood has gener ally resolved. A 2.3 centimeters pseudocyst has enlarged within the right abdomen. It lies lateral an d posterior to the 2.3 centimeter pseudocyst. It contains a 7 millimeter area of increased density wh ich could represent a blood clot. A 1.7 centimeter pseudocysts lies to the right an inferior to this within the right abdomen. The pancreatic duct remains dilated. Ill-defined fluid is present within the right anterior pararenal space The liver, spleen, adrenals and kidneys demonstrate no significant abnormality. A small amount of ascites is seen. There is no evidence of diverticulitis. IMPRESSION: Placement of presumably vascular coils within the right abdomen since the prior exam. A 3.7 pseudocyst within the region of the pancreatic head has decreased in size. The blood has essent ially resolved. Two additional smaller pseudocysts within the right abdomen. One contains a 7 millimeter blood clot.
[2017-10-04 15:36] LABS: Urine Bacteria <20 /HPF (NONE SEEN); Urine RBC NONE SEEN /HPF (NONE SEEN)
[2017-10-04 15:37] LABS: Urine Blood NEGATIVE (NEG); Urine Glucose NEGATIVE (NEG); Urine Protein 1+ (NEG); Urine pH >8.5 (5.0-7.0)
[2017-10-04 15:37] LABS: Urine Amorphous Sediment 3+ /HPF (NONE SEEN); Urine Culture Reflex Order NOT NEEDED
[2017-10-04] MEDS ORDERED: FENTANYL CITR 100 MCG/2 ML ONE (15:54)
--- NOTE | 2017-10-04 16:18 | ER ---
Nurse's Notes [facility] Name: Ankit Rosales Age: 37 yrs Sex: Male : 1980 Arrival Date: 10/04/2017 Time: 13:14 Bed 15 Private MD: Diagnosis: Acute pancreatitis Presentation: 10/04 13:15 Presenting complaint: EMS states: pt had two coils placed in his pancreas two/three tl3 weeks ago, pain has returned, stomach cramps and vomiting. Transition of care: patient was not received from another setting of care. Onset of symptoms was October 04, 2017. Risk Assessment: Do you want to hurt yourself or someone else? Patient reports no desire to harm self or others. Initial Sepsis Screen: Does the patient meet any 2 criteria? No. Patient's initial sepsis screen is negative. Does the patient have a suspected source of infection? No. Patient's initial sepsis screen is negative. Care prior to arrival: None. 13:15 Method Of Arrival: EMS: [facility] tl3 13:15 Acuity: KRAIG 3 tl3 Triage Assessment: 13:28 General: Appears distressed, uncomfortable, slender, well groomed, well developed, well tl3 nourished, Behavior is cooperative, appropriate for age. Pain: Complains of pain in abdomen Pain currently is 10 out of 10 on a pain scale. EENT: No deficits noted. Neuro: Level of Consciousness is awake, alert, obeys commands, Oriented to person, place, time, situation, Appropriate for age. Cardiovascular: Heart tones S1 S2 present Patient's skin is warm and dry. Rhythm is. Respiratory: Airway is patent Respiratory effort is even, unlabored, Respiratory pattern is regular, symmetrical. GI: Abdomen is flat, Reports vomiting, since yesterday. : No signs and/or symptoms were reported regarding the genitourinary system. Derm: No signs and/or symptoms reported regarding the dermatologic system. Musculoskeletal: No signs and/or symptoms reported regarding the musculoskeletal system. Historical: - Allergies: 13:28 NKDA; tl3 - PMHx: 13:28 Cirrhosis; GALLSTONES; left leg DVT; Pancreatitis; tl3 - PSHx: 13:28 pancreas stint/coil; tl3 - Immunization history:: Adult Immunizations up to date. - Social history:: Smoking status: Patient uses tobacco products, denies chronic smoking, but will smoke occasionally, Patient/guardian denies using alcohol, stopped drinking almost two months ago, ETOH of choice was beer and hard liquor . - Ebola Screening: : Patient denies travel to an Ebola-affected area in the 21 days before illness onset. Screenin:32 Abuse screen: Denies threats or abuse. Nutritional screening: No deficits noted. tl3 Tuberculosis screening: No symptoms or risk factors identified. Fall Risk None identified. Assessment: 13:32 Reassessment: No changes from previously documented assessment. tl3 14:20 Reassessment: No changes from previously documented assessment. Patient and/or family tl3 updated on plan of care and expected duration. Pain level reassessed. Patient is alert, oriented x 3, equal unlabored respirations, skin warm/dry/pink. pain is now at a nine/ten. 15:57 Reassessment: No changes from previously documented assessment. Patient and/or family tl3 updated on plan of care and expected duration. Pain level reassessed. Patient is alert, oriented x 3, equal unlabored respirations, skin warm/dry/pink. pt c/o pain, provider notified and meds given. 16:21 Reassessment: Patient appears in no apparent distress at this time. No changes from tl3 previously documented assessment. Patient and/or family updated on plan of care and expected duration. Pain level reassessed. Patient is alert, oriented x 3, equal unlabored respirations, skin warm/dry/pink. pt being hospitalized. 17:56 GI: Bowel sounds present X 4 quads. Abdomen is tender to palpation. tl3 Vital Signs: 13:28 BP 126 / 80; Pulse 87; Resp 18; Temp 98.6(O); Pulse Ox 99% on R/A; tl3 14:20 BP 120 / 82; Pulse 78; Resp 18; Pulse Ox 100% ; Pain 9/10; tl3 15:57 BP 120 / 80; Pulse 82; Resp 18; Pulse Ox 99% ; tl3 16:21 BP 123 / 84; Pulse 68; Resp 18; Pulse Ox 98% ; tl3 ED Course: 13:14 Patient arrived in ED. tl3 13:15 An Alcantar, RN is Primary Nurse. tl3 13:17 Triage completed. tl3 13:28 Arm band placed on right wrist. tl3 13:32 Resting quietly. Awaiting ED provider evaluation. tl3 13:32 Patient has correct armband on for positive identification. Bed in low position. Call tl3 light in reach. Side rails up X2. Pulse ox on. NIBP on. Warm blanket given. 13:32 No provider procedures requiring assistance completed. Inserted saline lock: 20 gauge tl3 in right forearm, using aseptic technique. Blood collected. 13:45 Isauro Garrido PA is PHCP. [facility] 13:46 Alexandru Chan MD is Attending Physician. jmm 14:37 CT completed. Patient moved to CT via wheelchair. Patient moved back from CT. cw1 14:40 CT Abd/Pelvis - W/Contrast In Process Unspecified. EDMS 15:55 Urine Dipstick--Ancillary (enter results) Sent. tl3 16:16 Fredy Benitez MD is Hospitalizing Provider. m 18:02 Patient admitted, IV remains in place. tl3 Administered Medications: 13:50 Drug: Lactated Ringers Solution 1000 ml Route: IV; Rate: 1000 TKO; Site: right forearm; tl3 Delivery: Primary tubing; 16:28 Follow up: IV Status: Completed infusion; IV Intake: 1000ml tl3 13:50 Drug: morphine 4 mg Route: IVP; Infused Over: 3 mins; Site: right forearm; tl3 16:29 Follow up: Response: No adverse reaction; Pain is unchanged, physician notified tl3 13:50 Drug: Zofran 4 mg Route: IVP; Infused Over: 3 mins; Site: right forearm; tl3 16:29 Follow up: Response: No adverse reaction tl3 14:32 Drug: morphine 4 mg Route: IVP; Infused Over: 3 mins; Site: right forearm; tl3 16:29 Follow up: Response: No adverse reaction; Pain is unchanged, physician notified tl3 15:55 Drug: fentaNYL (PF) 50 mcg Route: IVP; Site: right forearm; tl3 16:27 Follow up: Response: Pain is decreased tl3 Intake: 16:28 IV: 1000ml; Total: 1000ml. tl3 Outcome: 16:17 Decision to Hospitalize by Provider. jmm 17:57 Admitted to Med/surg accompanied by tech, via wheelchair, with chart, Report called to tl3 MIRYAM Boudreaux 17:57 Condition: stable 17:57 Instructed on the need for admit. 18:41 Patient left the ED. tl3 Signatures: Dispatcher [employer] EDIsauro Randall PA PA jmm Woodley, Crystal cw1 An Alcantar, RN RN tl3 Corrections: (The following items were deleted from the chart) 14:32 14:20 Zofran 4 mg IVP in right forearm over 2 mins tl3 tl3
--- NOTE | 2017-10-04 16:18 | EDPHYS ---
Physician Documentation [facility] Name: Ankit Rosales Age: 37 yrs Sex: Male : 1980 Arrival Date: 10/04/2017 Time: 13:14 Bed 15 Private MD: ED Physician Alexandru Chan HPI: 10/04 15:06 This 37 yrs old Male presents to ER via EMS with complaints of Abdominal Pain.[facility] [place] 15:06 The patient presents with abdominal pain. Onset: The symptoms/episode began/occurred jm today. The symptoms do not radiate. Associated signs and symptoms: Pertinent positives: nausea. The symptoms are described as achy, sharp. This is a 37 year old male with no a history of pancreatitis presents to the ED with epigastric abdominal pain and nausea. Patient states he was discharged from [facility] on September 20 for pancreatitis. . Historical: - Allergies: 13:28 NKDA; tl3 - PMHx: 13:28 Cirrhosis; GALLSTONES; left leg DVT; Pancreatitis; tl3 - PSHx: 13:28 pancreas stint/coil; tl3 - Immunization history:: Adult Immunizations up to date. - Social history:: Smoking status: Patient uses tobacco products, denies chronic smoking, but will smoke occasionally, Patient/guardian denies using alcohol, stopped drinking almost two months ago, ETOH of choice was beer and hard liquor . - Ebola Screening: : Patient denies travel to an Ebola-affected area in the 21 days before illness onset. ROS: 15:06 Constitutional: Negative for fever, chills, and weight loss. [facility] 15:06 Abdomen/GI: Positive for abdominal pain, nausea. 15:06 All other systems are negative. Exam: 15:06 Constitutional: This is a well developed, well nourished patient who is awake, alert, jmm and in no acute distress. 15:06 Constitutional: This is a well developed, well nourished patient who is awake, alert, and in no acute distress. 15:06 Constitutional: This is a well developed, well nourished patient who is awake, alert, and in no acute distress. 16:25 Abdomen/GI: Inspection: abdomen appears normal, Bowel sounds: normal, Palpation: soft, jmm moderate abdominal tenderness, in the epigastric area, right upper quadrant and left upper quadrant. 16:25 Back: ROM is normal. 16:25 Skin: Appearance: Color: normal in color. 16:25 Neuro: Orientation: is normal, Mentation: is normal, Memory: is normal. 16:25 Psych: Behavior/mood is pleasant, cooperative. Vital Signs: 13:28 BP 126 / 80; Pulse 87; Resp 18; Temp 98.6(O); Pulse Ox 99% on R/A; tl3 14:20 BP 120 / 82; Pulse 78; Resp 18; Pulse Ox 100% ; Pain 9/10; tl3 15:57 BP 120 / 80; Pulse 82; Resp 18; Pulse Ox 99% ; tl3 16:21 BP 123 / 84; Pulse 68; Resp 18; Pulse Ox 98% ; tl3 MDM: 13:48 Patient medically screened. [facility] 16:12 Data reviewed: vital signs, nurses notes, lab test result(s), radiologic studies, CT [facility] scan. Counseling: I had a detailed discussion with the patient and/or guardian regarding: the historical points, exam findings, and any diagnostic results supporting the discharge/admit diagnosis, lab results, radiology results, the need for further work-up and treatment in the hospital. Physician consultation: Fredy Benitez MD. 10/04 13:47 Order name: Amylase, Serum; Complete Time: 15:23 [facility] 10/04 13:47 Order name: Basic Metabolic Panel; Complete Time: 15:23 [facility] 10/04 13:47 Order name: CBC with Diff; Complete Time: 14:33 [facility] [place] 10/04 13:47 Order name: Creatinine for Radiology; Complete Time: 14:33 [facility] 10/04 13:47 Order name: Hepatic Function; Complete Time: 15:23 [facility] 10/04 13:47 Order name: Lipase; Complete Time: 15:23 [facility] 10/04 13:47 Order name: Urine Microscopic Only; Complete Time: 15:41 [facility] 10/04 14:16 Order name: CT Abd/Pelvis - W/Contrast; Complete Time: 15:23 [facility] 10/04 15:22 Order name: Urine Dipstick--Ancillary (enter results) ag 10/04 15:23 Order name: Urine Dipstick-Ancillary; Complete Time: 15:41 [facility] 10/04 13:47 Order name: IV Saline Lock; Complete Time: 14:33 [facility] 10/04 13:47 Order name: Labs collected and sent; Complete Time: 14:33 [facility] 10/04 13:47 Order name: Urine Dipstick-Ancillary (obtain specimen); Complete Time: 15:18 [facility] Administered Medications: 13:50 Drug: Lactated Ringers Solution 1000 ml Route: IV; Rate: 1000 TKO; Site: right forearm; tl3 Delivery: Primary tubing; 16:28 Follow up: IV Status: Completed infusion; IV Intake: 1000ml tl3 13:50 Drug: morphine 4 mg Route: IVP; Infused Over: 3 mins; Site: right forearm; tl3 16:29 Follow up: Response: No adverse reaction; Pain is unchanged, physician notified tl3 13:50 Drug: Zofran 4 mg Route: IVP; Infused Over: 3 mins; Site: right forearm; tl3 16:29 Follow up: Response: No adverse reaction tl3 14:32 Drug: morphine 4 mg Route: IVP; Infused Over: 3 mins; Site: right forearm; tl3 16:29 Follow up: Response: No adverse reaction; Pain is unchanged, physician notified tl3 15:55 Drug: fentaNYL (PF) 50 mcg Route: IVP; Site: right forearm; tl3 16:27 Follow up: Response: Pain is decreased tl3 Disposition: 10/04/17 16:17 Hospitalization ordered by Fredy Benitez for Inpatient Admission. Preliminary diagnosis is Acute pancreatitis. - Bed requested for Telemetry/MedSurg (Inpatient). - Status is Inpatient Admission. tl3 - Condition is Stable. - Problem is an acute exacerbation. - Symptoms are unchanged. UTI on Admission? No Addendum: 10/06/2017 09:23 Co-signature as Attending Physician, Alexandru Chan MD I agree with the assessment and c holden plan of care. Signatures: Dispatcher [employer] Lorraine Lu, Alexandru Sumner RN, MD MD cha Mickail, Joel, PA PA jmm Lowrey, Tammy, MIRYAM RN tl3 Corrections: (The following items were deleted from the chart) 10/04 17:06 16:17 Hospitalization Ordered by Fredy Benitez MD for Inpatient Admission. dw Preliminary diagnosis is Acute pancreatitis. Bed requested for Telemetry/MedSurg (Inpatient). Status is Inpatient Admission. Condition is Stable. Problem is an acute exacerbation. Symptoms are unchanged. UTI on Admission? No. jmm 18:41 17:06 10/04/2017 16:17 Hospitalization Ordered by Fredy Benitez MD for Inpatient tl3 Admission. Preliminary diagnosis is Acute pancreatitis. Bed requested for Telemetry/MedSurg (Inpatient). Status is Inpatient Admission. Condition is Stable. Problem is an acute exacerbation. Symptoms are unchanged. UTI on Admission? No. dw
[2017-10-04] MEDS ORDERED: MORPHINE 4 MG/ML SYR IV PRN (16:23)
[2017-10-04] MEDS ORDERED: ACETAMINOPHEN 500 MG TAB PO PRN (16:23)
--- NOTE | 2017-10-04 16:37 | P.HP ---
Certification for Inpatient Patient admitted to: Inpatient With expected LOS: <2 Midnights Practitioner: I am a practitioner with admitting privileges, knowledge of patient current condition, hospital course, and medical plan of care. 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 was admitted to this hospital complaining of acute onset of abdominal pain he has had recurrent onset of pancreatitis started vomiting is pain increased in intensity patient was recently discharged from [facility] for treatment of esophageal varices in he did have coils putting in Patient denies any hematemesis or melenic stools his hemoglobin in stable Allergies No Known Drug Allergies Allergy (Mild, Unverified 08/31/17 20:15) Unknown acetaminophen [From Tylenol] Adverse Reaction (Severe, Verified 06/25/17 11:51) Unknown cant take tylenol due Allergy (Uncoded 09/13/17 23:19) Unknown cant take tylenol due t Allergy (Uncoded 07/21/17 10:35) Unknown Home Medications: Apixaban [Eliquis *] 2.5 mg PO BID 07/07/17 Tramadol HCl [Ultram] 50 mg PO Q6H #20 tablet 07/09/17 - Past Medical/Surgical History Diabetic: No -: alcohol abuse -: alcoholic pancreatitis -: pancreatic pseudocyst -: History of left leg DVT -: Gallstones - Social History Smoking Status: Current every day smoker Alcohol use: Yes CD- Drugs: No Caffeine use: Yes Review of Systems 10-point ROS is otherwise unremarkable Physical Examination - Physical Exam General: Alert, Oriented x3, Moderate distress HEENT: Atraumatic Neck: Supple Respiratory: Clear to auscultation bilaterally, Normal air movement Cardiovascular: No edema, Normal pulses Gastrointestinal: Normal bowel sounds, Rebound, Guarding Musculoskeletal: No clubbing, No swelling Integumentary: No rashes, No breakdown - Studies Laboratory Data (last 24 hrs) 10/04/17 13:15: Creatinine 0.60 10/04/17 13:15: WBC 6.6, Hgb 13.3 L, Hct 38.2 L, Plt Count 333 10/04/17 13:15: Sodium 140, Potassium 3.6, BUN 9, Creatinine 0.50 L, Glucose 85 , Total Bilirubin 0.5, AST 14 L, ALT 17, Alkaline Phosphatase 82, Amylase 241 H* , Lipase 1674 H Assessment and Plan - Problems (Diagnosis) (1) Pancreatitis Current Visit: Yes Status: Acute Plan: Patient is 37 years of age with a history of recurrent pancreatitis serosal the liver with GI bleeding at with acute onset of abdominal pain he has had a history of left leg DVT and is on anticoagulants Murphy had coils placed in his abdomen for bleeding at [facility] this currently hemodynamically stable with no episodes of hematemesis or melena admit for observation continue with IV fluids pain medications Karla is a lie appears a very elevated Qualifiers: Chronicity: acute - Advance Directives Does patient have a Living Will: No Does patient have a Durable POA for Healthcare: No
[2017-10-04] MEDS ORDERED: ONDANSETRON 4 MG/2 ML VIAL IV PRN (16:40)
[2017-10-04] MEDS: Ringers Lactate 1,000 ML IV SCH ×2 (17:00→19:49)
[2017-10-04 21:09] VITALS: BMI 18.8
[2017-10-04] MEDS: TRAMADOL HCL 50 MG TAB PO PRN (21:09)
[2017-10-04] MEDS ORDERED: FENTANYL CITR 100 MCG/2 ML IV ONE (21:12)
[2017-10-05] MEDS: FENTANYL CITR 100 MCG/2 ML IV PRN ×3 (01:35→09:31)
[2017-10-05] MEDS: Ringers Lactate 1,000 ML IV SCH ×3 (04:09→20:58)
[2017-10-05 05:04] LABS: Absolute Lymphocytes (CBC) 1.9 K/uL (0.7-4.9); Absolute Monocytes 0.8 K/uL (0.1-1.3); Absolute Neutrophil 2.5 K/uL (1.8-8.0); Basophils % 1.4 % (0-1.3); Hematocrit 33.4 % (39.6-49.0); Lymphocytes % 35.4 % (15.3-44.8); MCH 31.5 pg (27.0-35.0); MCV 89.9 fL (80-100); MPV 7.5 fL (7.6-11.3); Monocytes % 14.4 % (3.3-12.3); RBC Red Blood Cell Count 3.71 M/uL (4.33-5.43)
[2017-10-05 05:18] LABS: ALT/SGPT 14 U/L (12-78); AST/SGOT 12 U/L (15-37); Albumin 3.5 g/dL (3.4-5.0); Alkaline Phosphatase 72 U/L (45-117); BUN Blood Urea Nitrogen 7 mg/dL (7-18); Bicarbonate 27 mmol/L (21-32); Bilirubin Direct 0.1 mg/dL (0-0.2); Bilirubin Total 0.6 mg/dL (0.2-1.0); Glucose Level 87 mg/dL (74-106); Lipase 1888 U/L (73-393); Potassium 3.9 mmol/L (3.5-5.1); Sodium Level 140 mmol/L (136-145)
--- NOTE | 2017-10-05 10:12 | P.PN ---
Subjective Date of Service: 10/05/17 Chief Complaint: Acute pancreatitis Subjective: Improving (Patient is improving still having abdominal pain requesting morphine he instead of fentanyl no nausea or vomiting no fever) Review of Systems General: Weakness Gastrointestinal: Abdominal Pain Physical Examination - Vital Signs Temperature: 98.4 F Blood Pressure: 109/70 Pulse: 81 Respirations: 12 Pulse Ox (%): 98 - Physical Exam General: Alert, Oriented x3 Neck: Supple Respiratory: Clear to auscultation bilaterally Cardiovascular: No edema, Regular rate/rhythm Gastrointestinal: Normal bowel sounds, Soft and benign - Studies Laboratory Data (last 24 hrs) 10/04/17 13:15: Creatinine 0.60 10/04/17 13:15: WBC 6.6, Hgb 13.3 L, Hct 38.2 L, Plt Count 333 10/04/17 13:15: Sodium 140, Potassium 3.6, BUN 9, Creatinine 0.50 L, Glucose 85 , Total Bilirubin 0.5, AST 14 L, ALT 17, Alkaline Phosphatase 82, Amylase 241 H* , Lipase 1674 H Assessment & Plan - Problems (Diagnosis) (1) Pancreatitis Current Visit: Yes Status: Acute Plan: Patient is 37 years of age admitted with the acute on chronic pancreatitis he symptomatically improving although his enzymes are still elevated change to morphine labs reviewed GI Consul tomorrow Qualifiers: Chronicity: acute
[2017-10-05] MEDS: NICOTINE 21 MG/PAT TD SCH (10:53)
[2017-10-05] MEDS: TRAMADOL HCL 50 MG TAB PO PRN ×2 (10:57→18:28)
[2017-10-05] MEDS: MORPHINE 4 MG/ML SYR IV PRN ×3 (13:36→20:59)
[2017-10-06] MEDS: MORPHINE 4 MG/ML SYR IV PRN ×6 (01:32→23:34)
[2017-10-06] MEDS: NICOTINE 21 MG/PAT TD SCH (09:17)
[2017-10-06] MEDS: Ringers Lactate 1,000 ML IV SCH ×2 (09:18→16:07)
[2017-10-06] MEDS: HYDROCODONE/APAP 7.5/325 MG TAB PO PRN ×3 (09:18→22:06)
--- NOTE | 2017-10-06 10:27 | P.PN ---
Subjective Date of Service: 10/06/17 Primary Care Provider: none Chief Complaint: Acute pancreatitis Subjective: Improving (Patient is slowly improving. Pain to the abdomen improved. No nausea vomiting this morning. Patient has been able tolerate a clear liquid diet.) Physical Examination - Vital Signs Temperature: 98.0 F Blood Pressure: 104/66 Pulse: 67 Respirations: 16 Pulse Ox (%): 99 - Physical Exam General: Alert, In no apparent distress, Oriented x3, Cooperative HEENT: Atraumatic Neck: Supple Respiratory: Clear to auscultation bilaterally, Normal air movement Cardiovascular: Normal pulses, Regular rate/rhythm Gastrointestinal: Normal bowel sounds, Soft and benign, Non-distended, No masses , No rebound, No guarding, Tenderness (Mild pain to the epigastric region) Musculoskeletal: No erythema, No tenderness, No warmth Integumentary: No tenderness/swelling, No erythema, No warmth, No cyanosis Neurological: Normal speech, Normal strength at 5/5 x4 extr, Normal tone, Normal affect - Studies Medications List Reviewed: Yes Assessment & Plan - Problems (Diagnosis) (1) Pancreatitis Onset Date: 10/06/17 Current Visit: Yes Status: Acute Plan: Acute on chronic pancreatitis. Multiple pseudocysts noted. Patient with vascular coils in place. Will need to obtain more information about this. Patient able tolerate a clear liquid diet. Will advance slowly. Will continue with IV fluids. GI consulted to further evaluate and assess. Will provide incentive spirometer. Will provide DVT prophylaxis. Qualifiers: Chronicity: acute Pancreatitis type: alcohol induced Acute pancreatitis complication: no infection or necrosis Qualified Code(s): K85.20 - Alcohol induced acute pancreatitis without necrosis or infection (2) Alcohol abuse Onset Date: 02/18/17 Current Visit: No Status: Chronic Plan: Alcohol cessation addressed in detail. Patient plans to quit. Patient reports that he has not been drinking alcohol in over 1 month. (3) Nicotine dependence Onset Date: 06/26/17 Current Visit: No Status: Chronic Plan: Will provide incentive spirometer. Nicotine patch will be provided as needed. Patient may have underlying COPD. Will provide medication. Qualifiers: Nicotine product type: cigarettes Substance use status: uncomplicated Qualified Code(s): F17.210 - Nicotine dependence, cigarettes, uncomplicated (4) Portal vein thrombosis Onset Date: 06/26/17 Current Visit: No Status: Chronic Plan: Patient with history of portal vein thrombosis. Vascular coils noted on recent CT scan. Will need to obtain information more about this. Will check to see if the patient is still taking anti coagulation therapy. Will provide DVT prophylaxis (5) Pseudocyst of pancreas Onset Date: 04/28/17 Current Visit: No Status: Chronic Plan: Multiple pseudocysts noted. Have GI evaluate patient. Continue as above. (6) COPD (chronic obstructive pulmonary disease) Current Visit: Yes Status: Suspected Plan: Will provide medication. Encourage tobacco cessation. Qualifiers: COPD type: chronic bronchitis Chronic bronchitis type: unspecified Qualified Code(s): J42 - Unspecified chronic bronchitis Discharge Plan: Home Plan to discharge in: 48 Hours Time Spent Managing Pts Care (In Minutes): 55
[2017-10-06] MEDS ORDERED: ALBUTEROL 2.5 MG/3 ML NEB SOL NEB PRN ×2 (10:30→15:00)
[2017-10-06] MEDS ORDERED: IPRATROPIUM BROM 0.5MG/2.5ML NEB PRN ×2 (10:30→15:00)
[2017-10-06 10:49] LABS: Hematocrit 32.5 % (39.6-49.0); MCH 30.9 pg (27.0-35.0); MCV 90.4 fL (80-100); MPV 7.8 fL (7.6-11.3); RBC Red Blood Cell Count 3.59 M/uL (4.33-5.43)
[2017-10-06 11:08] LABS: BUN Blood Urea Nitrogen 6 mg/dL (7-18); Bicarbonate 27 mmol/L (21-32); Glucose Level 65 mg/dL (74-106); Potassium 3.8 mmol/L (3.5-5.1); Sodium Level 141 mmol/L (136-145)
[2017-10-06] MEDS: AMYLASE/LIPASE/PROTEASE CAP PO SCH ×2 (15:17→20:52)
--- NOTE | 2017-10-06 15:32 | RAD REPORT ---
EXAM DESCRIPTION: US - Abdomen Exam Complete - 10/06/2017 3:11 pm CLINICAL HISTORY: Abdominal pain. Pancreatitis,Hxportal vein thrombus,Vascular coils COMPARISON: Abdomen Exam Limited dated 06/25/2017; Abdomen Pelvis W Contrast dated 10/04/2017; Abdome n Pelvis W Contrast dated 09/13/2017; Abdomen Pelvis W Contrast dated 08/31/2017; Abdomen Pelvis W Contrast dated 07/07/2017; Liver Abd Pancreas W Wo dated 06/26/2017 FINDINGS: The liver is somewhat heterogenous in echotexture. Small echogenic lesion in the right lob e measuring 11 x 9 mm, nonspecific, but probably a benign hemangioma. No intrahepatic biliary dilatat ion seen. Portal vein flow direction is normal. No evidence of portal vein thrombosis. The pancreas has a significantly abnormal appearance. The pancreatic duct is irregular and dilated. F ocal cystic collection and pancreatic head imaging 5.5 cm is most likely pseudocyst. A small fluid co llection is also seen adjacent to the pancreatic tail measuring 3.6 x 3.0 cm. Several nonshadowing rounded structures are present in the inferior aspect of the gallbladder/gallbla dder neck which could be sludge balls or nonshadowing calculi. Common bile duct measures 5 mm. Both kidneys are normal in size, shape and echotexture. No hydronephrosis, focal lesion of concern or perinephric fluid. The spleen is normal in size measuring 10 cm. The abdominal aorta is partial obscured by bowel gas. The visualized aspects of the IVC are grossly normal. IMPRESSION: Heterogenous liver echotexture without evidence of biliary dilatation or portal vein thr ombosis. Significant abnormal appearance to the pancreas with a large pseudocyst suspected in pancreatic head. Rounded nonshadowing echogenic structures in the gallbladder neck may represent sludge balls or nonsh adowing calculi.
[2017-10-06] MEDS: ENOXAPARIN 40 MG/0.4 ML SQ SCH (16:08)
--- NOTE | 2017-10-06 17:23 | CON ---
Date of Consultation: 10/06/2017 A 37-year-old male, Dr. Longoria. Reason For Consultation: Pancreatic pseudocyst, abdominal pain. History Of Present Illness: Mr. Rosales is a 37-year-old male with repeated history alcoholism and alc oholic pancreatitis, pancreatic pseudocyst formation. This is 1 of his other admission and he states that he has abdominal pain, however, this is no better no worse. Denies any nausea vomiting. Has g ood appetite. No hematemesis, melena, hematochezia. Also some form of abdominal coil history. I do not know exactly why this was placed. At this time, the patient's abdominal pain is on the baseline . He is having no nausea, vomiting. Feeling hungry. Past Medical History: Unchanged other than above since last admission. Past Surgical History: Unchanged other than above since last admission. Family History: Unchanged other than above since last admission. Social History: Unchanged other than above since last admission. Psych History: Unchanged other than above since last admission. Physical Examination: General: Young male, no other acute distress noted. Hemodynamic and respiratory profile within norm al range. HEENT: Atraumatic, normocephalic. Anicteric. No pallor. Neck: Supple. No lymphadenopathy. Trachea central in position. Chest: Clear to auscultation and percussion. Cardiovascular: Normal S1, S2. No S3, no S4. Abdomen: Soft. Mild tenderness in the epigastric area. Bowel sounds are present. No hepatomegaly. No splenomegaly. No ascites. No succussion splash, in fact remarkably benign considering his cond ition Extremities: Upper and lower extremities are normal and symmetrical Neurologic: Alert and oriented x3. Intact memory, mentation, and judgment. Can move all parts of e xtremities without any other problem. No distress noted. Diagnostic Data: Hemoglobin and hematocrit 11 and 33. Lipase is 1888. CT scan shows 3.7 cm pseudoc yst and some coil. Impression: Mr. Rosales is a 37-year-old gentleman with acute alcoholic pancreatitis complicated by pa ncreatic pseudocyst. Treatment at this time will be again treating him for alcoholism and I had a lo ng discussion. He seems to be quite intelligent and shows no evidence of pain. I have told him that his treatment: 1.Stopping alcohol. 2.Stopping alcohol. 3.Stopping alcohol. 4.Likely low fat diet. 5.Get alcohol rehab treatment. 6.With respect to pseudocyst we do not need to make any acute intervention at this time. it seems t o be uncomplicated and given time it should resolve, But he needs to be on regular follow up for this . He is encouraged to follow up as an outpatient with any physician of his liking. GONZALEZ/JAMES Voice ID: [id number] Report ID: [id number]
[2017-10-06] MEDS: ARFORMOTEROL TARTRATE 15 MCG/2 ML VIAL.NEB NEB SCH (20:08)
[2017-10-06] MEDS: ENSURE HIGH PROTEIN 237 ML CAN PO SCH (20:52)
[2017-10-07 02:06] VITALS: O2SAT 100
[2017-10-07] MEDS: Ringers Lactate 1,000 ML IV SCH ×5 (04:06→23:40)
[2017-10-07] MEDS: MORPHINE 4 MG/ML SYR IV PRN ×5 (04:11→20:34)
[2017-10-07] MEDS: HYDROCODONE/APAP 7.5/325 MG TAB PO PRN ×4 (05:44→23:42)
[2017-10-07] MEDS: PANTOPRAZOLE 40MG TABLET PO SCH (05:44)
[2017-10-07] MEDS: AMYLASE/LIPASE/PROTEASE CAP PO SCH ×4 (08:02→20:35)
[2017-10-07] MEDS: THIAMINE HCL 100 MG TABLET PO SCH (08:02)
[2017-10-07] MEDS: FOLIC ACID 1 MG TABLET PO SCH (08:02)
[2017-10-07] MEDS: NICOTINE 21 MG/PAT TD SCH (08:02)
[2017-10-07] MEDS: ENSURE HIGH PROTEIN 237 ML CAN PO SCH ×2 (08:03→20:40)
--- NOTE | 2017-10-07 09:51 | P.PN ---
Subjective Date of Service: 10/07/17 Primary Care Provider: none Chief Complaint: Acute pancreatitis Subjective: Improving (Patient able tolerate current diet. Pain improved. Patient ambulating.) Physical Examination - Vital Signs Temperature: 98.3 F Blood Pressure: 110/69 Pulse: 59 Respirations: 16 Pulse Ox (%): 99 - Physical Exam General: Alert, In no apparent distress, Oriented x3, Cooperative HEENT: Atraumatic Neck: Supple Respiratory: Clear to auscultation bilaterally, Normal air movement Cardiovascular: Normal pulses, Regular rate/rhythm Gastrointestinal: Normal bowel sounds, Soft and benign, Non-distended, No masses , No rebound, No guarding, Tenderness (Less pain to the epigastric region.) Musculoskeletal: No erythema, No tenderness, No warmth Integumentary: No tenderness/swelling, No erythema, No warmth, No cyanosis Neurological: Normal speech, Normal strength at 5/5 x4 extr, Normal tone, Normal affect - Studies Medications List Reviewed: Yes Assessment & Plan - Problems (Diagnosis) (1) Pancreatitis Onset Date: 10/06/17 Current Visit: Yes Status: Acute Plan: Acute on chronic pancreatitis. Multiple pseudocysts noted. Patient with vascular coils in place. Will review previous hospitalization. Patient tolerating current diet. Will advance to soft low fat diet as tolerated. Will encourage ambulation. Will provide incentive spirometer. Case discussed with GI. Patient started on Creon. No intervention required at this time. Anticipate discharge in the next 1-2 days. Qualifiers: Chronicity: acute Pancreatitis type: alcohol induced Acute pancreatitis complication: no infection or necrosis Qualified Code(s): K85.20 - Alcohol induced acute pancreatitis without necrosis or infection (2) Alcohol abuse Onset Date: 02/18/17 Current Visit: No Status: Chronic Plan: Alcohol cessation addressed in detail. Patient plans to quit. Patient reports that he has not been drinking alcohol in over 1 month. (3) Nicotine dependence Onset Date: 06/26/17 Current Visit: No Status: Chronic Plan: Will provide incentive spirometer. Nicotine patch will be provided as needed. Patient may have underlying COPD. Will provide medication. Qualifiers: Nicotine product type: cigarettes Substance use status: uncomplicated Qualified Code(s): F17.210 - Nicotine dependence, cigarettes, uncomplicated (4) Portal vein thrombosis Onset Date: 06/26/17 Current Visit: No Status: Chronic Plan: Patient with history of portal vein thrombosis. Vascular coils noted on recent CT scan. Patient previously taking anti coagulation therapy for portal vein thrombus and history of lower extremity DVT. This has been discontinued from recent prior hospitalization as reported by patient. That is when they placed the vascular coils. (5) Pseudocyst of pancreas Onset Date: 04/28/17 Current Visit: No Status: Chronic Plan: Multiple pseudocysts noted. No intervention needed at this time. Continue as above. (6) COPD (chronic obstructive pulmonary disease) Current Visit: Yes Status: Suspected Plan: Will provide medication. Encourage tobacco cessation. Qualifiers: COPD type: chronic bronchitis Chronic bronchitis type: unspecified Qualified Code(s): J42 - Unspecified chronic bronchitis (7) Anemia Current Visit: Yes Status: Chronic Plan: Likely of chronic disease. Will monitor closely. Qualifiers: Anemia type: other cause Other causes of anemia: chronic disease, other Qualified Code(s): D63.8 - Anemia in other chronic diseases classified elsewhere Discharge Plan: Home Plan to discharge in: 24 Hours Time Spent Managing Pts Care (In Minutes): 55
[2017-10-07] MEDS: ARFORMOTEROL TARTRATE 15 MCG/2 ML VIAL.NEB NEB SCH ×2 (11:02→20:46)
[2017-10-07 11:36] LABS: Hematocrit 32.5 % (39.6-49.0); MCH 31.2 pg (27.0-35.0); MCV 90.3 fL (80-100); MPV 7.3 fL (7.6-11.3)
[2017-10-07 11:52] LABS: BUN Blood Urea Nitrogen 6 mg/dL (7-18); Bicarbonate 29 mmol/L (21-32); Glucose Level 95 mg/dL (74-106); Lipase 1440 U/L (73-393); Potassium 3.8 mmol/L (3.5-5.1); Sodium Level 142 mmol/L (136-145)
[2017-10-07] MEDS: ENOXAPARIN 40 MG/0.4 ML SQ SCH (16:20)
[2017-10-08] MEDS: MORPHINE 4 MG/ML SYR IV PRN ×3 (00:41→08:44)
[2017-10-08] MEDS: PANTOPRAZOLE 40MG TABLET PO SCH (06:09)
[2017-10-08] MEDS: ARFORMOTEROL TARTRATE 15 MCG/2 ML VIAL.NEB NEB SCH (07:52)
[2017-10-08] MEDS: Ringers Lactate 1,000 ML IV SCH ×2 (08:00→16:00)
[2017-10-08] MEDS: FOLIC ACID 1 MG TABLET PO SCH (08:45)
[2017-10-08] MEDS: ENSURE HIGH PROTEIN 237 ML CAN PO SCH (08:45)
[2017-10-08] MEDS: THIAMINE HCL 100 MG TABLET PO SCH (08:45)
[2017-10-08] MEDS: NICOTINE 21 MG/PAT TD SCH (08:45)
[2017-10-08] MEDS: AMYLASE/LIPASE/PROTEASE CAP PO SCH ×3 (08:45→16:30)
[2017-10-08 09:02] VITALS: TEMP 98.6
[2017-10-08 10:37] LABS: Hematocrit 32.5 % (39.6-49.0); MCH 31.5 pg (27.0-35.0); MPV 7.7 fL (7.6-11.3); RBC Red Blood Cell Count 3.61 M/uL (4.33-5.43)
--- NOTE | 2017-10-08 11:16 | P.PN ---
Subjective Date of Service: 10/08/17 Primary Care Provider: none Chief Complaint: Acute pancreatitis Subjective: Improving (Patient improving. Patient is ambulating. Pain still present but stable.) Physical Examination - Vital Signs Temperature: 98.6 F Blood Pressure: 131/78 Pulse: 68 Respirations: 18 Pulse Ox (%): 100 - Physical Exam General: Alert, In no apparent distress, Oriented x3, Cooperative HEENT: Atraumatic Neck: Supple Respiratory: Clear to auscultation bilaterally, Normal air movement Cardiovascular: Normal pulses, Regular rate/rhythm Gastrointestinal: Normal bowel sounds, Soft and benign, Non-distended, No masses , No rebound, No guarding, Tenderness (Less pain to the epigastric region.) Musculoskeletal: No erythema, No tenderness, No warmth Integumentary: No tenderness/swelling, No erythema, No warmth, No cyanosis Neurological: Normal speech, Normal strength at 5/5 x4 extr, Normal tone, Normal affect Lymphatics: No axilla or inguinal lymphadenopathy - Studies Medications List Reviewed: Yes Assessment & Plan - Problems (Diagnosis) (1) Pancreatitis Onset Date: 10/06/17 Current Visit: Yes Status: Acute Plan: Acute on chronic pancreatitis. Multiple pseudocysts noted. Patient with vascular coils in place. Patient tolerating current diet. Wean off IV pain medication. Case discussed with GI yesterday. Continue with Creon. Will reassess this afternoon. If stable will plan to discharge either later today or tomorrow. Qualifiers: Chronicity: acute Pancreatitis type: alcohol induced Acute pancreatitis complication: no infection or necrosis Qualified Code(s): K85.20 - Alcohol induced acute pancreatitis without necrosis or infection (2) Alcohol abuse Onset Date: 02/18/17 Current Visit: No Status: Chronic Plan: Alcohol cessation addressed in detail. Patient plans to quit. Patient reports that he has not been drinking alcohol in over 1 month. (3) Nicotine dependence Onset Date: 06/26/17 Current Visit: No Status: Chronic Plan: Will provide incentive spirometer. Nicotine patch will be provided as needed. Patient may have underlying COPD. Will provide medication. Qualifiers: Nicotine product type: cigarettes Substance use status: uncomplicated Qualified Code(s): F17.210 - Nicotine dependence, cigarettes, uncomplicated (4) Portal vein thrombosis Onset Date: 06/26/17 Current Visit: No Status: Chronic Plan: Patient with history of portal vein thrombosis. Vascular coils noted on recent CT scan. Patient previously taking anti coagulation therapy for portal vein thrombus and history of lower extremity DVT. This has been discontinued from recent prior hospitalization as reported by patient. That is when they placed the vascular coils. (5) Pseudocyst of pancreas Onset Date: 04/28/17 Current Visit: No Status: Chronic Plan: Multiple pseudocysts noted. No intervention needed at this time. Continue as above. (6) COPD (chronic obstructive pulmonary disease) Current Visit: Yes Status: Suspected Plan: Will provide medication. Encourage tobacco cessation. Patient will need COPD medication at discharge. Qualifiers: COPD type: chronic bronchitis Chronic bronchitis type: unspecified Qualified Code(s): J42 - Unspecified chronic bronchitis (7) Anemia Current Visit: Yes Status: Chronic Plan: Likely of chronic disease. Will monitor closely. Currently stable this time. Qualifiers: Anemia type: other cause Other causes of anemia: chronic disease, other Qualified Code(s): D63.8 - Anemia in other chronic diseases classified elsewhere (8) History of DVT (deep vein thrombosis) Current Visit: Yes Status: Chronic Plan: History of DVT. Patient off medication. Continue DVT prophylaxis. (9) Chronic pain Current Visit: Yes Status: Chronic Plan: Patient with chronic pain. Will limit IV pain medication. Patient will need to see pain management as an outpatient Qualifiers: Chronic pain type: chronic pain syndrome Qualified Code(s): G89.4 - Chronic pain syndrome Discharge Plan: Home Plan to discharge in: 24 Hours Time Spent Managing Pts Care (In Minutes): 55
[2017-10-08 13:06] VITALS: BP 120/69
[2017-10-08] MEDS: HYDROCODONE/APAP 7.5/325 MG TAB PO PRN (13:15)
--- NOTE | 2017-10-08 15:39 | P.DS ---
Admission Date: 10/04/17 Discharge Date: 10/08/17 Primary Care Provider: none Disposition: ROUTINE DISCHARGE Discharge Condition: GOOD Reason for Admission: Acute pancreatitis Consultations: GI-Dr. Hill Procedures: CT Scan: FINDINGS: Coils have been placed into the right abdomen since the prior exam. Presumably these are vascular coils and should be correlated clinically. A 3.7 centimeters pseudocyst within the region of the pancreatic head is decreased in size. Previously it measured 5.3 centimeters. The blood has generally resolved. A 2.3 centimeters pseudocyst has enlarged within the right abdomen. It lies lateral and posterior to the 2.3 centimeter pseudocyst. It contains a 7 millimeter area of increased density which could represent a blood clot. A 1.7 centimeter pseudocysts lies to the right an inferior to this within the right abdomen. The pancreatic duct remains dilated. Ill-defined fluid is present within the right anterior pararenal space The liver, spleen, adrenals and kidneys demonstrate no significant abnormality. A small amount of ascites is seen. There is no evidence of diverticulitis. IMPRESSION: Placement of presumably vascular coils within the right abdomen since the prior exam. A 3.7 pseudocyst within the region of the pancreatic head has decreased in size. The blood has essentially resolved. Two additional smaller pseudocysts within the right abdomen. One contains a 7 millimeter blood clot. ABUS: FINDINGS: The liver is somewhat heterogenous in echotexture. Small echogenic lesion in the right lobe measuring 11 x 9 mm, nonspecific, but probably a benign hemangioma. No intrahepatic biliary dilatation seen. Portal vein flow direction is normal. No evidence of portal vein thrombosis. The pancreas has a significantly abnormal appearance. The pancreatic duct is irregular and dilated. Focal cystic collection and pancreatic head imaging 5.5 cm is most likely pseudocyst. A small fluid collection is also seen adjacent to the pancreatic tail measuring 3.6 x 3.0 cm. Several nonshadowing rounded structures are present in the inferior aspect of the gallbladder/gallbladder neck which could be sludge balls or nonshadowing calculi. Common bile duct measures 5 mm. Both kidneys are normal in size, shape and echotexture. No hydronephrosis, focal lesion of concern or perinephric fluid. The spleen is normal in size measuring 10 cm. The abdominal aorta is partial obscured by bowel gas. The visualized aspects of the IVC are grossly normal. IMPRESSION: Heterogenous liver echotexture without evidence of biliary dilatation or portal vein thrombosis. Significant abnormal appearance to the pancreas with a large pseudocyst suspected in pancreatic head. Rounded nonshadowing echogenic structures in the gallbladder neck may represent sludge balls or nonshadowing calculi. - Problems (1) Pancreatitis Onset Date: 10/06/17 Current Visit: Yes Status: Acute Qualifiers: Chronicity: acute Pancreatitis type: alcohol induced Acute pancreatitis complication: no infection or necrosis Qualified Code(s): K85.20 - Alcohol induced acute pancreatitis without necrosis or infection (2) Alcohol abuse Onset Date: 02/18/17 Current Visit: No Status: Chronic (3) Nicotine dependence Onset Date: 06/26/17 Current Visit: No Status: Chronic Qualifiers: Nicotine product type: cigarettes Substance use status: uncomplicated Qualified Code(s): F17.210 - Nicotine dependence, cigarettes, uncomplicated (4) Portal vein thrombosis Onset Date: 06/26/17 Current Visit: No Status: Chronic (5) Pseudocyst of pancreas Onset Date: 04/28/17 Current Visit: No Status: Chronic (6) COPD (chronic obstructive pulmonary disease) Current Visit: Yes Status: Suspected Qualifiers: COPD type: chronic bronchitis Chronic bronchitis type: unspecified Qualified Code(s): J42 - Unspecified chronic bronchitis (7) Anemia Current Visit: Yes Status: Chronic Qualifiers: Anemia type: other cause Other causes of anemia: chronic disease, other Qualified Code(s): D63.8 - Anemia in other chronic diseases classified elsewhere (8) History of DVT (deep vein thrombosis) Current Visit: Yes Status: Chronic (9) Chronic pain Current Visit: Yes Status: Chronic Qualifiers: Chronic pain type: chronic pain syndrome Qualified Code(s): G89.4 - Chronic pain syndrome Brief History of Present Illness: 37-year-old male prisoner see room with abdominal pain, nausea and vomiting. Patient found to have acute on chronic pancreatitis. The patient was admitted for further evaluation. Hospital Course: Patient was admitted and treated for acute on chronic pancreatitis. Patient has multiple pseudocysts. Patient was recently transferred to [facility] for placement of vascular coils. Patient also had history of portal vein thrombus and left lower extremity DVT. Patient was treated for this in the past. He is off anticoagulation therapy at this time since his vascular coils were placed. During his stay his pancreatitis improved. Patient was evaluated by GI. GI recommended no intervention. Abdominal ultrasound showed no portal vein thrombus. No biliary dilation noted. Pseudocyst noted. Otherwise no significant changes were noted. Patient did well during his stay. At discharge she is without any significant abdominal pain, nausea vomiting. He is tolerated a diet. GI recommended that he continue with Creon as an outpatient. Patient will be given a limited supply of tramadol 50 mg 1 pill 3 times a day as needed for pain. Recommendations with the patient follow up with GI as an outpatient to further monitor. Recommendation on no alcohol use. Patient may have underlying COPD. Patient with tobacco abuse. Tobacco cessation addressed in detail. At discharge patient will be started on Symbicort 2 puffs twice daily and albuterol 2 puffs 3 times a day as needed for shortness of breath. Patient may follow up with pulmonology as outpatient to further monitor. Patient whilst be provided nicotine patch to help with tobacco cessation. Patient has GERD. He will continue with Protonix 40 mg daily. Patient will follow up with GI as directed. Vital Signs/Physical Exam: Temp Pulse Resp BP Pulse Ox 98.6 F 75 18 120/69 99 10/08/17 12:00 10/08/17 12:00 10/08/17 12:00 10/08/17 12:00 10/08/17 12:00 General: Alert, In no apparent distress, Oriented x3, Cooperative HEENT: Atraumatic Neck: Supple Respiratory: Clear to auscultation bilaterally, Normal air movement Cardiovascular: Normal pulses, Regular rate/rhythm Gastrointestinal: Normal bowel sounds, Soft and benign, Non-distended, No ascites, No tenderness, No masses, No rebound, No guarding Musculoskeletal: No erythema, No tenderness, No warmth Integumentary: No tenderness/swelling, No erythema, No warmth, No cyanosis Neurological: Normal speech, Normal strength at 5/5 x4 extr, Normal tone Laboratory Data at Discharge: WBC 6.5 K/uL (4.3-10.9) 10/08/17 10:17 Hgb 11.4 g/dL (13.6-17.9) L 10/08/17 10:17 Hct 32.5 % (39.6-49.0) L 10/08/17 10:17 Plt Count 310 K/uL (152-406) 10/08/17 10:17 Sodium 142 mmol/L (136-145) 10/07/17 11:25 Potassium 3.8 mmol/L (3.5-5.1) 10/07/17 11:25 BUN 6 mg/dL (7-18) L 10/07/17 11:25 Creatinine 0.50 mg/dL (0.55-1.3) L 10/07/17 11:25 Glucose 95 mg/dL (74-106) 10/07/17 11:25 Total Bilirubin 0.6 mg/dL (0.2-1.0) 10/05/17 04:42 AST 12 U/L (15-37) L 10/05/17 04:42 ALT 14 U/L (12-78) 10/05/17 04:42 Alkaline Phosphatase 72 U/L (45-117) 10/05/17 04:42 Amylase 362 U/L (25-115) H* D 10/08/17 04:16 Lipase 2823 U/L (73-393) H 10/08/17 10:17 Home Medications: Albuterol Sulfate [Proair Hfa] 8.5 gm IH TID PRN #1 hfa.aer.ad 10/08/17 Budesonide/Formoterol Fumarate [Symbicort 160-4.5 Mcg Inhaler] 2 puff IH BID #1 hfa.aer.ad 10/08/17 Lipase/Protease/Amylase [Cameron Monae 36,000 Units Capsule] 1 each PO TID #90 capsule. 10/08/17 Nicotine [Nicoderm*] 21 mg TD DAILY #30 patch.td24 10/08/17 Pantoprazole [Protonix Tab*] 40 mg PO DAILYAC #30 tab 10/08/17 Thiamine HCl [Vitamin B-1*] 100 mg PO DAILY #30 tablet 10/08/17 traMADol HCL [Ultram*] 50 mg PO TID PRN #10 tab 10/08/17 New Medications: Albuterol Sulfate [Proair Hfa] 8.5 gm IH TID PRN #1 hfa.aer.ad PRN Reason: Shortness Of Breath Budesonide/Formoterol Fumarate [Symbicort 160-4.5 Mcg Inhaler] 2 puff IH BID #1 hfa.aer.ad Lipase/Protease/Amylase [Cameron Monae 36,000 Units Capsule] 1 each PO TID #90 capsule. Nicotine [Nicoderm*] 21 mg TD DAILY #30 patch.td24 Pantoprazole [Protonix Tab*] 40 mg PO DAILYAC #30 tab Thiamine HCl [Vitamin B-1*] 100 mg PO DAILY #30 tablet traMADol HCL [Ultram*] 50 mg PO TID PRN #10 tab PRN Reason: Pain Patient Discharge Instructions: 1. Patient will need to follow with a PCP in 1 week to follow up this hospitalization and establish care. 2. Patient presented with acute on chronic pancreatitis. Patient also has chronic pseudocyst. Patient is seen by GI. No intervention needed. At discharge he will continue with Creon 3 times a day. Patient will need a follow up with GI as an outpatient to further monitor. Recommendation on no alcohol use. A limited supply of tramadol 50 mg one pill 3 times a day as needed for pain will be provided. 3. Patient may have underlying COPD. Patient with tobacco abuse. Tobacco cessation addressed in detail. At discharge patient will be started on Symbicort 2 puffs twice daily and albuterol 2 puffs 3 times a day as needed for shortness of breath. Patient may follow up with pulmonology as outpatient to further monitor. Patient whilst be provided nicotine patch to help with tobacco cessation. 4. Patient has GERD. He will continue with Protonix 40 mg daily. Patient will follow up with GI as directed. 5. Alcohol cessation will need to be enforced. Patient may continue with thiamine 100 mg daily.. 6. Patient may return to work. Diet: Soft GI Activity: Ad андрей Time spent managing pt's care (in minutes): 55
[2017-10-08] MEDS: ENOXAPARIN 40 MG/0.4 ML SQ SCH (17:00)
== END 2017-10-08 17:00 | disposition home or self-care (01) | DRG 439 ==
LOC: ER 13:11 → ERHOLD 16:21 → 2ND 17:55
PROVIDERS: ADMIT Internal Medicine Sleep Medicine; ATTEND Family Medicine
DX: K85.20 Alcohol induced acute pancreatitis without necrosis or infection (principal); K86.3 Pseudocyst of pancreas; F10.10 Alcohol abuse, uncomplicated; F17.210 Nicotine dependence, cigarettes, uncomplicated; J42 Unspecified chronic bronchitis; D63.8 Anemia in other chronic diseases classified elsewhere; Z86.718 Personal history of other venous thrombosis and embolism; G89.4 Chronic pain syndrome; K21.9 Gastro-esophageal reflux disease without esophagitis; K70.30 Alcoholic cirrhosis of liver without ascites
CPT/HCPCS: 36415; 74177; 76700; 80048; 80076; 81003; 81015; 82150; 83690; 85025; 85027; 96374; 96375; 99285; J1650; J2405; J3010; J7605; Q9967

== ENCOUNTER 2017-12-06 17:04 | Emergency (ER) | payer SELFPAY ==
--- OUTSIDE RECORDS SUMMARY | 2017-12-06 17:06 | XMS REPORT | Clinical Summary ---
:1980 Author Organization [facility] Address [address] [place] [address] Phone Care Team Providers Name Role Phone [...] Date Type Specialty Care Team Description 09/14/2017 [facility] General Internal Zaida Martinez MD Alcohol abuse - Encounter Medicine Yahaira, (Primary 09/19/2017 Dario Dx);Cystic mass of TavaresMD pancreas;Pancreati Vanda Norton MD pseudocyst/cyst;He Naty Cruz, morrhagic Julissa Moseley MD pancreatitis 09/08/2017 Procedure Pass Gastroenterology 09/08/2017 Surgery Gastroenterology Bessy Hernandez UPPER ENDOSCOPY MD Fredi 09/07/2017 Anesthesia Event Gastroenterology Shikha Motley MD 09/01/2017 Orders Only General Internal Medicine 08/31/2017 [facility] Talisha Abad Alcohol - Encounter MD Adriana abuse;Cystic mass 09/09/2017 [place], of [place]Dannie pancreas;History MD Nayely of DVT (deep vein Michael, Larry thrombosis);Kim Bishop MD l-induced acute Farrukh Ryan MD pancreatitis Mackenzie Riveraa without infection MD Bradley or necrosis;Smoker;Po rtal vein thrombosis 05/21/2017 Procedure Pass Gastroenterology 05/19/2017 Anesthesia Event Gastroenterology Dorota Cortes MD 05/13/2017 [facility] Internal Radha, Ulysses, Alcohol-induced - Encounter Medicine acute 05/20/2017 Rafaela Samson pancreatitisMD unspecified Diomedes Alvarado complication MD Lul status;Alcohol abuse;Cystic mass of pancreas;Smoker;Th rombocytosis (HCC);Alcohol-janiya segundo acute pancreatitis without infection or necrosis;Smoking 03/13/2017 Procedure Pass Gastroenterology 03/11/2017 Procedure Pass Gastroenterology 03/10/2017 Anesthesia Event Gastroenterology Юлия Crump MD 03/09/2017 [facility] Internal [facility] Alcohol - Encounter Medicine MD Araceli abuse;Cystic mass 03/14/2017 Ulysses Garcia of MD pancreas;Hypokalem Yaneth Napier ia;Alcohol-induced MD acute pancreatitis, unspecified complication status;Portal vein thrombosis after 12/05/2016 Family History Medical History Relation Name Comments [...] 09/08/2017 5:00 PM Pancreatic pseudocyst CDT after 12/05/2016 Results Calcium, Ionized (09/19/2017 6:02 AM)Only the most recent of3 resultswithin the time period is included. Component Value Ref Range Calcium, Ion 1.11 (L) 1.12 - 1.27 mmol/L pH, Blood 7.40 Specimen Performing Laboratory Blood - Line, Venous [address] [address] Phosphorus (09/19/2017 6:02 AM)Only the most recent of10 resultswithin the time period is included. Component Value Ref Range Phosphorus 3.0 2.3 - 4.7 mg/dL Specimen Performing Laboratory Blood - Line, Venous [address] [address] Magnesium (09/19/2017 6:02 AM)Only the most recent of11 resultswithin the time period is included. Component Value Ref Range Magnesium 2.0 1.6 - 2.6 mg/dL Specimen Performing Laboratory Blood - Line, Venous [address] [address] Basic Metabolic Panel (09/19/2017 6:02 AM)Only the [...] Specimen Performing Laboratory Blood - Line, Venous [address] [address] CBC with platelet count + automated diff [...] Performing Laboratory Blood - Line, Venous [facility] [address] [address] CBC with platelet count + automated diff (09/17/2017 3:54 AM)Only the most recent of17 resultswithin the time period is included. Specimen Performing Laboratory Blood Narrative The following orders were created for panel order CBC with platelet count + automated diff. Procedure Abnormality Status --------- ------ CBC with platelet count ...[[id number]]AbnormalFinal result Please view results for these tests on the individual orders. US abdominal with doppler (09/17/2017 3:00 AM) Specimen Performing Laboratory [employer] Narrative FINAL REPORT Comparison exam: Right upper [...] MD Report Verified Date/Time:09/17/2017 04:01:12 Reading Location: [address] Consult Reading Room Procedure Note Interface, [...] pancreatic duct measuring 5 mm. Signed: Gera Gapsar MD Report Verified Date/Time: 09/17/2017 04:01:12 Reading Location: [facility] B1 C013X Ortho Consult Reading Room Embolization Arterial (09/16/2017 6:00 PM) Specimen Performing Laboratory [employer] Narrative FINAL REPORT Mesenteric angiogram and embolization History: 37-year-old male with hemorrhagic pancreatic pseudocyst. Modality: Ultrasound and fluoroscopy. Sedation: Moderate sedation was administered. 2.5 mg of Versed and 125 mcg of fentanyl IV was used for moderate sedation monitored under my direction. Total intra-service time of sedation [id number]. The patient's vital signs were monitored throughout the procedure and recorded in the patient's medical record by the nurse. Anesthesia:Two percent Lidocaine without epinephrine. Approach:Right common femoral artery. Estimated blood loss:< 5 cc. Specimen: None. soda column operator: Michael Ortega MD. Team Sports Sales Associate: None.. Fluoroscopy Time: 31.7 min. Reference Air [...] over 0.035 Bentson wire for a 5 Australian by 10 cm vascular sheath. A 5 Australian Sutton B catheter was used to select the celiac trunk and SMA for multiple DSA runs. The Sutton catheter was then remanipulated into the celiac trunk. Next, using a 2.4 Australian microcatheter and 0.016 inch microwire, the gastroduodenal artery was cannulated. Subsequently, the catheter was manipulated into the feeding branch supplying the abnormal area of hyperemia/vessel irregularity. From this location, embolization was performed using Interlock microcoils. The microcatheter was retracted into the GDA proximally and postdilatation DSA was performed. Next, the Sutton base catheter was manipulated into the SMA. Using a 2. Australian directional microcatheter and 0.014 inch microwire, the [...] MD Report Verified Date/Time:09/20/2017 16:25:06 Reading Location: [place] [address] Angio Body Reading Room Procedure Note Interface, [...] blood loss: < 5 cc. Specimen: None. soda column operator: Michael Ortega MD. Team Sports Sales Associate: None.. Fluoroscopy Time: 31.7 min. Reference Air [...] over 0.035 Bentson wire for a 5 Australian by 10 cm vascular sheath. A 5 Australian Sutton B catheter was used to select the celiac trunk and SMA for multiple DSA runs. The Sutton catheter was then remanipulated into the celiac trunk. Next, using a 2.4 Australian microcatheter and 0.016 inch microwire, the gastroduodenal artery was cannulated. Subsequently, the catheter was manipulated into the feeding branch supplying the abnormal area of hyperemia/vessel irregularity. From this location, embolization was performed using Interlock microcoils. The microcatheter was retracted into the GDA proximally and postdilatation DSA was performed. Next, the Sutton base catheter was manipulated into the SMA. Using a 2. Australian directional microcatheter and 0.014 inch microwire, the [...] Report Verified Date/Time: 09/20/2017 16:25:06 Reading Location: [place] [address] Angio Body Reading Room C-Reactive Protein (09/16/2017 12:32 PM)Only the most recent of2 resultswithin the time period is included. Component Value Ref Range CRP 0.97 (H) 0.00 - 0.50 mg/dL Specimen Performing Laboratory Blood - Central Venous Line [address] [address] PT/aPTT (09/16/2017 10:54 AM) Component Value Ref Range Protime 16.2 (H) 11.7 - 14.7 seconds INR 1.3 <=5.9 PTT 30.2 22.5 - 36.0 seconds Specimen Performing Laboratory Blood - Central Venous Line [address] [address] Narrative RECOMMENDED COUMADIN/WARFARIN INR THERAPY RANGES STANDARD [...] mg/dL Specimen Performing Laboratory Blood - Line, [address] [address] Narrative TRIGLYCERIDE REFERENCE RANGE Low Risk<150 Borderline Risk 150-199 High Wsyb633-722 Very High Risk >=500 Lipase (09/16/2017 4:20 AM)Only the most recent of6 resultswithin the time period is included. Component Value Ref Range Lipase 114 (H) 8 - 78 U/L Specimen Performing Laboratory Blood - Line, [address] [address] Hepatic function panel (09/16/2017 4:20 AM)Only the [...] Specimen Performing Laboratory Blood - Line, Venous [address] [address] XR chest 1 view portable / bedside [...] MD Report Verified Date/Time:09/15/2017 19:53:01 Reading Location: [address] Reading Room Procedure Note Interface, External [...] Report Verified Date/Time: 09/15/2017 19:53:01 Reading Location: [address] Reading Room PHERAL VASCULAR REPORT - SCAN (09/15/2017 5:20 PM)Venous doppler legs bilateral (09/15/2017 2:49 PM) Component Value Ref Range Ejection Fraction Specimen Performing Laboratory [facility] ECHO HEARTLAB MKCKESSON CPACS Impressions Right [...] Patient NameANKIT ROSALES Date of Study09/15/2017 Visit [id number] Male of Birth1980 Number Referring Julissa AlfonsoNancy, Room [id number] Physician Seasonal Warehouse Associate David Chan. Interpreting Prema Gabriel, CANDELARIO, Buddy, [...] of Study 09/15/2017 Age 37 Visit Number [id number] Gender Male Date of 1980 Number Referring Julissa Arguelles, Room Number 2161 Physician Seasonal Warehouse Associate David Chan. Interpreting Prema Gabriel T, [facility] Physician , RPVI Procedure Type of Study: [...] Specimen Performing Laboratory Stool [facility] [address] [address] Narrative Performing Lab [facility] [address] [address] Enrique Holliday MD, PhD, GIDEON Peripheral Blood Smear - Path Review (09/14/2017 4:37 AM) Component Value Ref Range Pathologist Review Thrombocytosis. No circulating blasts or increased schistocytes. Clinical follow up recommended. Pathologist: Enoch Saba M.D.(electronic signature) Specimen Performing Laboratory [address] [address] Vitamin B12 and Folate (09/14/2017 4:37 AM) Component Value Ref Range Vitamin B12 527 213 - 816 pg/mL Folate 12.3 >=7.0 ng/mL Specimen Performing Laboratory Blood [address] [address] RHYTHM STRIP - SCAN (09/10/2017 10:40 AM)aPTT (09/09/2017 9:37 AM)Only the most recent of9 resultswithin the time period is included. Component Value Ref Range PTT 44.5 (H) 22.5 - 36.0 seconds Specimen Performing Laboratory Blood [address] [address] REPORT OF PROCEDURE - ENDOSCOPY URL (09/08/2017 5:47 PM)Fine Needle Aspirate ( 09/08/2017 5:43 PM) Component Value Ref Range Cytology See Separate Report Specimen Performing Laboratory Fine Needle Aspirate - [address] [address] Fine Needle Aspirate by Clinician (09/08/2017 5:43 PM) Component Value Ref Range Case Report Medical Cytology Report Case: [id number] Authorizing Provider:Bessy Hernandez MDCollected: 09/08/2017 1743 Ordering Location: [address] Received: 09/08/2017 1814 Service Pathologist: Mir Anthony MD Specimen:Pancreas DIAGNOSIS PANCREAS HEAD CYSTIC LESION FNA BY CLINICIAN (CYTOSPINS AND CELL BLOCK OF ASPIRATE): - NO MALIGNANT CELLS IDENTIFIED - The mucin stain shows focal weak staining Signing Pathologist Direct Phone Line: [phone] COMMENT The cell block shows non-inflammed pancreatic acinar tissue. CPT Code(s) 89319, 69516, 59[address] CLINICAL DATA (4.9 X 4.8 cm) Cystic lesion in the pancreatic head SPECIMEN SOURCE PANCREAS HEAD CYSTIC LESION FNA GROSS DESCRIPTION 25 mls in cytorich red; 4 cytospins, 1 mucin stain, cell block Collected: [id number] Received: [id number] Technical component was performed at [facility], Department of Pathology, [address] [place] [address], Professional component was performed [facility], at Department of Pathology, [address] [place] [address], Specimen Performing Laboratory Fine Needle Aspirate - [address] [address] [address] abd/pelvis - pancreas evaluation (09/04/2017 12:20 [...] MD Report Verified Date/Time:09/04/2017 00:22:52 Reading Location: [address] Reading Room Procedure Note Interface, External [...] Report Verified Date/Time: 09/04/2017 00:22:52 Reading Location: [address] Reading Room -Glucose meter (09/02/2017 7:29 AM)Only the most recent of2 resultswithin the time period is included. Component Value Ref Range POC-Glucose Meter 140 (H)Comment: TESTED AT [address] 70 - 110 mg/[place] [address] Specimen Performing Laboratory Blood [facility] [address] [address] ECG 12 lead (09/01/2017 6:18 PM) Specimen Performing Laboratory [facility] [employer] Narrative Ventricular Rate 77 BPM Atrial Rate 77 BPM P-R Interval 162 ms QRS Duration 98 ms Q-T Interval 404 ms QTC Calculation(Bazett) 457 ms P [place] -8 degrees R [place] 30 degrees T [place] -1 degrees Normal sinus rhythm RSR' or [...] 404 ms QTC Calculation(Bazett) 457 ms P [place] -8 degrees R [place] 30 degrees T [place] -1 degrees Normal sinus rhythm RSR' or QR pattern in V1 suggests right ventricular conduction delay Cannot rule out Anterior infarct , age undetermined Abnormal ECG No previous ECGs available Confirmed by MD [place] ([id number]) on 09/02/2017 2:25:25 PM US abdomen limited (09/01/2017 5:23 AM) Specimen Performing Laboratory [employer] [facility]IS Narrative FINAL REPORT INDICATION: 37-year-old male [...] MD Report Verified Date/Time:09/01/2017 09:53:12 Reading Location: [facility] [id number] Ultrasound Reading Room Procedure Note Interface, [...] Report Verified Date/Time: 09/01/2017 09:53:12 Reading Location: [facility] P006 Ultrasound Reading Room /Free T4 If Indicated (09/01/2017 3:12 AM) Component Value Ref Range TSH 0.36 0.35 - 4.94 uIU/mL Specimen Performing Laboratory Blood - Arm, [address] [address] Troponin I (09/01/2017 3:12 AM) Component Value Ref Range Troponin I <0.01 0.00 - 0.03 ng/mL Specimen Performing Laboratory Blood - Arm, [address] [address] Narrative Troponin I (TnI) levels must be [...] mm/HR Specimen Performing Laboratory Blood - Arm, [address] [address] Hemoglobin A1c (09/01/2017 3:12 AM) Component Value Ref Range Hemoglobin A1C 4.7 4.3 - 6.1 % Specimen Performing Laboratory Blood - Arm, [address] [address] Creatine Kinase (CK), Total and MB (09/01/2017 3:12 AM) Component Value Ref Range Total CK 29 29 - 200 U/L CK-MB 0.4 0.0 - 6.6 ng/mL MB Relative Index 1.4 % Specimen Performing Laboratory Blood - Arm, [address] [address] Narrative CK-MB Reference Range: <6.7Normal 6.7-10.0Borderline >10.0 Abnormal Amylase (09/01/2017 3:12 AM) Component Value Ref Range Amylase 383 (H) 25 - 125 U/L Specimen Performing Laboratory Blood - Arm, [address] [address] Lipid panel (09/01/2017 3:12 AM)Only the most recent of2 resultswithin the time period is included. Component Value Ref Range Triglycerides 76 mg/dL Cholesterol 118 mg/dL HDL 37 mg/dL LDL Calculated 66 mg/dL Specimen Performing Laboratory Blood - Arm, [address] [address] Narrative Triglyceride Reference Range: Low Risk <150 Wmjkwbphja386-768 High Risk 200-499 Very High Risk>=500 Cholesterol Reference Range: Low Risk <200 Diwtsrsfag500-592 High Risk>240 HDL Cholesterol Reference Range: Low Risk >=60 High Risk <40 LDL Cholesterol Reference Range: Optimal<100 Near Gkbgsdv369-127 Nitdfxdhkp068-729 Wbgh535-828 Very High >=190 Blood culture (09/01/2017 3:11 AM)Only the most recent of2 resultswithin the time period is included. Component Value Ref Range Result No growth in 5 days Specimen Performing Laboratory Blood - Arm, Right [address] [address] EKG-SCANNED (05/22/2017 12:43 PM)Comprehensive metabolic panel (05/19/2017 [...] FOR DIALYSIS PATIENTS. Specimen Performing Laboratory Blood [address] [address] CBC (Hemogram only) (05/17/2017 4:26 AM)Only the [...] Performing Laboratory Blood - Arm, Right [facility] [address] [place] [address] MR abdomen without IV contrast MRCP (03/13/2017 [...] MD Report Verified Date/Time:03/13/2017 12:25:41 Reading Location: [address] Consult Reading Room Procedure Note Interface, External Ris In - 03/13/2017 12:27 PM COIL ASSEMBLER FINAL REPORT MRI of the abdomen, MRCP. [...] Report Verified Date/Time: 03/13/2017 12:25:41 Reading Location: [facility] C013X [facility] Consult Reading Room Manual Differential (03/11/2017 5:44 AM)Only the most recent of2 resultswithin the time period is included. Component Value Ref Range Total Counted WBC Morphology Normal Platelet Morphology Normal RBC Morphology Normal Specimen Performing Laboratory Blood - Line, Venous [address] [address] Prothrombin time/INR (03/09/2017 9:54 AM) Component Value Ref Range Protime 14.3 11.7 - 14.7 seconds INR 1.1 <=5.9 Specimen Performing Laboratory Blood [address] [address] Narrative RECOMMENDED COUMADIN/WARFARIN INR THERAPY RANGES STANDARD DOSE: 2.0 - 3.0 Includes: PROPHYLAXIS for venous thrombosis, systemic embolization; TREATMENT for venous thrombosis and/or pulmonary embolus. HIGH RISK: Target INR is 2.5-3.5 for patients with mechanical heart valves. after 12/05/2016
--- OUTSIDE RECORDS SUMMARY | 2017-12-06 17:09 | XMS REPORT ---
:1980 Author Organization [facility] Address [address] [place] [address] Care Team Providers Name Role Phone VANI FLORES Unavailable Unavailable SEEMA SPANN Unavailable Unavailable LIZ, LILIA Unavailable Unavailable MELISSAPATT Unavailable Unavailable Problems This patient has no known problems. Allergies, Adverse Reactions, Alerts This patient has no known allergies or adverse reactions. Medications This patient has no known medications. Results Test Description Test Time Test Comments Text Results Atomic Results Result Comments MICHAEL WALLER, 2017-09-[address] at [facility] for FINAL REPORT PATIENT EXTENSIVE - 16:25:00 evidence of bleedCall with ID: [id number] ARTERIAL questions: [phone] or Mesenteric angiogram [facility] for and embolization exam:->Pancreaticoduodednal artery with intermittent [...] blood loss: < 5 cc. Specimen: None. wire brush operator: Michael Ortega MD. Cosmetics Supervisor: None.. Fluoroscopy Time: 31.7 min.Reference Air Kerma [...] over 0.035 Bentson wire for a 5 Egyptian by 10 cm vascular sheath. A 5 Egyptian Sutton B catheter was used to select the celiac trunk and SMA for multiple DSA runs. The Sutton catheter was then remanipulated into the celiac trunk. Next, using a 2.4 Egyptian microcatheter and 0.016 inch microwire, the gastroduodenal artery was cannulated. Subsequently, the catheter was manipulated into the feeding branch supplying the abnormal area of hyperemia/vessel irregularity. From this location, embolization was performed using Interlock microcoils. The microcatheter was retracted into the GDA proximally and postdilatation DSA was performed. Next, the Sutton base catheter was manipulated into the SMA. Using a 2. Egyptian directional microcatheter and 0.014 inch microwire, the [...] Ortegaort Verified Date/Time: 09/20/2017 16:25:06 Reading Location: [place] [address] Angio Body Reading Room IUM, IONIZED 2017-09-19 07:02:00 Test Item Value Reference Range Comments CALCIUM IONIZED (BEAKER) (test jtwz=843) 1.11 mmol/L 1.12-1.27 PH, BLOOD (BEAKER) (test hefz=6477) 7.40 [id number] 06:35:00 Test Item Value Reference Range Comments PHOSPHORUS (BEAKER) (test hzdl=682) 3.0 mg/dL 2.3-4.7 [id number] 06:35:00 Test Item Value Reference Range Comments MAGNESIUM (BEAKER) (test uheo=769) 2.0 mg/dL 1.6-2.6 BASIC METABOLIC [id number] 06:35:00 Test Item Value Reference Range Comments SODIUM (BEAKER) (test 138 meq/L 136-145 lkem=252) POTASSIUM (BEAKER) (test 3.8 meq/L 3.5-5.1 gbkx=072) CHLORIDE (BEAKER) (test 109 meq/L 98-107 aame=068) CO2 (BEAKER) (test 22 meq/L 22-29 jsbq=626) BLOOD UREA NITROGEN 10 mg/dL 7-21 (BEAKER) (test miko=713) CREATININE (BEAKER) (test 0.53 mg/dL 0.57-1.25 hcpq=791) GLUCOSE RANDOM (BEAKER) 88 mg/dL 70-105 (test umde=404) CALCIUM (BEAKER) (test 8.5 mg/dL 8.4-10.2 fysh=166) EGFR (BEAKER) (test 174 mL/min/1.73 sq m ESTIMATED GFR IS NOT skgv=9376) ACCURATE CREATININE CLEARANCE IN PREDICTING GLOMERULAR FILTRATION RATE. ESTIMATED GFR IS NOT APPLICABLE FOR DIALYSIS PATIENTS. CALCIUM, [id number] 07:12:00 Test Item Value Reference Range Comments CALCIUM IONIZED (BEAKER) (test abdm=758) 1.09 mmol/L 1.12-1.27 PH, BLOOD (BEAKER) (test jkxv=4757) 7.41 [id number] 06:38:00 Test Item Value Reference Range Comments PHOSPHORUS (BEAKER) (test qush=291) 3.0 mg/dL 2.3-4.7 [id number] 06:38:00 Test Item Value Reference Range Comments MAGNESIUM (BEAKER) (test myfp=077) 2.1 mg/dL 1.6-2.6 BASIC METABOLIC [id number] 06:38:00 Test Item Value Reference Range Comments SODIUM (BEAKER) (test 137 meq/L 136-145 dlnl=427) POTASSIUM (BEAKER) (test 3.7 meq/L 3.5-5.1 bwfz=422) CHLORIDE (BEAKER) (test 108 meq/L 98-107 ycyi=162) CO2 (BEAKER) (test 22 meq/L 22-29 hkxt=351) BLOOD UREA NITROGEN 10 mg/dL 7-21 (BEAKER) (test bvji=416) CREATININE (BEAKER) (test 0.52 mg/dL 0.57-1.25 sbyx=088) GLUCOSE RANDOM (BEAKER) 99 mg/dL 70-105 (test gdkj=708) CALCIUM (BEAKER) (test 8.6 mg/dL 8.4-10.2 dxwg=126) EGFR (BEAKER) (test 178 mL/min/1.73 sq m ESTIMATED GFR IS NOT jdxq=3663) ACCURATE CREATININE CLEARANCE IN PREDICTING GLOMERULAR FILTRATION RATE. ESTIMATED GFR IS NOT APPLICABLE FOR DIALYSIS PATIENTS. CALCIUM, [id number] 04:45:00 Test Item Value Reference Range Comments CALCIUM IONIZED (BEAKER) (test zahl=076) 1.14 mmol/L 1.12-1.27 PH, BLOOD (BEAKER) (test qnbq=5398) 7.39 [id number] 04:22:00 Test Item Value Reference Range Comments PHOSPHORUS (BEAKER) (test ghsb=214) 2.8 mg/dL 2.3-4.7 [id number] 04:22:00 Test Item Value Reference Range Comments MAGNESIUM (BEAKER) (test fxde=696) 1.9 mg/dL 1.6-2.6 BASIC METABOLIC [id number] 04:22:00 Test Item Value Reference Range Comments SODIUM (BEAKER) (test 134 meq/L 136-145 mubz=353) POTASSIUM (BEAKER) (test 3.3 meq/L 3.5-5.1 buwi=081) CHLORIDE (BEAKER) (test 103 meq/L 98-107 tnci=262) CO2 (BEAKER) (test 23 meq/L 22-29 xylh=316) BLOOD UREA NITROGEN 11 mg/dL 7-21 (BEAKER) (test pocw=735) CREATININE (BEAKER) (test 0.55 mg/dL 0.57-1.25 zmiy=063) GLUCOSE RANDOM (BEAKER) 112 mg/dL 70-105 (test xevy=200) CALCIUM (BEAKER) (test 8.7 mg/dL 8.4-10.2 aqqe=392) EGFR (BEAKER) (test 167 mL/min/1.73 sq m ESTIMATED GFR IS NOT xwaz=1376) ACCURATE CREATININE CLEARANCE IN PREDICTING GLOMERULAR FILTRATION RATE. ESTIMATED GFR IS NOT APPLICABLE FOR DIALYSIS PATIENTS. CBC W/PLT COUNT & AUTO [id number] 04:11:00 Test Item Value Reference Range Comments WHITE BLOOD CELL COUNT (BEAKER) (test aiwa=398) 10.1 K/ L 3.5-10.5 RED BLOOD CELL COUNT (BEAKER) (test ltfz=787) 4.16 M/ L 4.63-6.08 HEMOGLOBIN (BEAKER) (test ortl=938) 12.6 GM/DL 13.7-17.5 HEMATOCRIT (BEAKER) (test zfvo=437) 37.3 % 40.1-51.0 MEAN CORPUSCULAR VOLUME (BEAKER) (test rtcs=965) 89.7 fL 79.0-92.2 MEAN CORPUSCULAR HEMOGLOBIN (BEAKER) (test 30.3 pg 25.7-32.2 hfby=581) MEAN CORPUSCULAR HEMOGLOBIN CONC (BEAKER) (test 33.8 GM/DL 32.3-36.5 qrks=060) RED CELL DISTRIBUTION WIDTH (BEAKER) (test 14.0 % 11.6-14.4 tmkm=199) PLATELET COUNT (BEAKER) (test jjkk=595) 541 K/CU MM 150-450 MEAN PLATELET VOLUME (BEAKER) (test btrb=324) 9.1 fL 9.4-12.4 NUCLEATED RED BLOOD CELLS (BEAKER) (test 0 /100 WBC 0-0 jyco=103) NEUTROPHILS RELATIVE PERCENT (BEAKER) (test 66 % ymig=226) LYMPHOCYTES RELATIVE PERCENT (BEAKER) (test 20 % kqww=195) MONOCYTES RELATIVE PERCENT (BEAKER) (test 10 % qgdq=973) EOSINOPHILS RELATIVE PERCENT (BEAKER) (test 3 % ckks=774) BASOPHILS RELATIVE PERCENT (BEAKER) (test 1 % htmk=663) NEUTROPHILS ABSOLUTE COUNT (BEAKER) (test 6.65 K/ L 1.78-5.38 dzka=458) LYMPHOCYTES ABSOLUTE COUNT (BEAKER) (test 2.05 K/ L 1.32-3.57 snbj=530) MONOCYTES ABSOLUTE COUNT (BEAKER) (test 1.03 K/ L 0.30-0.82 iqny=867) EOSINOPHILS ABSOLUTE COUNT (BEAKER) (test 0.26 K/ L 0.04-0.54 jojq=660) BASOPHILS ABSOLUTE COUNT (BEAKER) (test 0.10 K/ L 0.01-0.08 gxoy=595) IMMATURE GRANULOCYTES-RELATIVE PERCENT (BEAKER) 0 % 0-1 (test amya=3372) U/S, ABDOMINAL, WITH [id number] 04:01:00Reason for exam:->? hx of PV thrombosisFINAL [...] Gaspar Verified Date/Time: 09/17/2017 04:01:12 Reading Location: [facility] [id number] Ortho Consult Reading Room 04 :01 AMC-REACTIVE [id number] 13:17:00 Test Item Value Reference Range Comments C-REACTIVE PROTEIN (BEAKER) (test mwbv=187) 0.97 mg/dL 0.00-0.50 [id number] 11:12:00 Test Item Value Reference Range Comments PROTIME (BEAKER) (test kuam=729) 16.2 seconds 11.7-14.7 INR (BEAKER) (test dikm=674) 1.3 <=5.9 PARTIAL THROMBOPLASTIN TIME (BEAKER) (test 30.2 seconds 22.5-36.0 iujz=057) RECOMMENDED COUMADIN/WARFARIN INR THERAPY RANGESSTANDARD DOSE: 2.0 - 3.0 Includes: PROPHYLAXIS forvenous thrombosis, systemic embolization; TREATMENT for venous thrombosis and/or pulmonary embolus.HIGH RISK: Target INR is 2.5-3.5 for patients with mechanical heart valves.[id number] 05:28:00 Test Item Value Reference Range Comments TRIGLYCERIDES (BEAKER) (test hkul=072) 78 mg/dL TRIGLYCERIDE REFERENCE RANGELow Risk <150Borderline Risk 150-199High Risk 200-499Very High Risk>=[id number] 05:28:00 Test Item Value Reference Range Comments MAGNESIUM (BEAKER) (test bjiu=250) 1.9 mg/dL 1.6-2.6 [id number] 05:28:00 Test Item Value Reference Range Comments PHOSPHORUS (BEAKER) (test ofof=644) 3.5 mg/dL 2.3-4.7 BASIC METABOLIC [id number] 05:28:00 Test Item Value Reference Range Comments SODIUM (BEAKER) (test 134 meq/L 136-145 dsvo=905) POTASSIUM (BEAKER) (test 3.6 meq/L 3.5-5.1 atlb=901) CHLORIDE (BEAKER) (test 105 meq/L 98-107 wrmh=943) CO2 (BEAKER) (test 23 meq/L 22-29 bxxd=998) BLOOD UREA NITROGEN 13 mg/dL 7-21 (BEAKER) (test yhtn=120) CREATININE (BEAKER) (test 0.56 mg/dL 0.57-1.25 hoxa=177) GLUCOSE RANDOM (BEAKER) 83 mg/dL 70-105 (test sanm=470) CALCIUM (BEAKER) (test 8.8 mg/dL 8.4-10.2 ogbw=437) EGFR (BEAKER) (test 163 mL/min/1.73 sq m ESTIMATED GFR IS NOT amgz=4763) ACCURATE CREATININE CLEARANCE IN PREDICTING GLOMERULAR FILTRATION RATE. ESTIMATED GFR IS NOT APPLICABLE FOR DIALYSIS PATIENTS. HEPATIC FUNCTION [id number] 05:28:00 Test Item Value Reference Range Comments TOTAL PROTEIN (BEAKER) (test wnqp=695) 6.5 gm/dL 6.0-8.3 ALBUMIN (BEAKER) (test ihef=5539) 3.7 g/dL 3.5-5.0 BILIRUBIN TOTAL (BEAKER) (test ewvs=360) 0.3 mg/dL 0.2-1.2 BILIRUBIN DIRECT (BEAKER) (test qtoq=453) 0.1 mg/dL 0.1-0.5 ALKALINE PHOSPHATASE (BEAKER) (test cbpq=863) 79 U/L 40-150 AST (SGOT) (BEAKER) (test vmmi=766) 14 U/L 5-34 ALT (SGPT) (BEAKER) (test acek=023) 9 U/L 6-55 [id number] 05:28:00 Test Item Value Reference Range Comments LIPASE (BEAKER) (test czkk=930) 114 U/L 8-78 CBC W/PLT COUNT & AUTO [id number] 05:03:00 Test Item Value Reference Range Comments WHITE BLOOD CELL COUNT (BEAKER) (test accm=986) 7.2 K/ L 3.5-10.5 RED BLOOD CELL COUNT (BEAKER) (test gstk=365) 4.04 M/ L 4.63-6.08 HEMOGLOBIN (BEAKER) (test oysm=584) 12.2 GM/DL 13.7-17.5 HEMATOCRIT (BEAKER) (test ouut=302) 36.7 % 40.1-51.0 MEAN CORPUSCULAR VOLUME (BEAKER) (test zgde=016) 90.8 fL 79.0-92.2 MEAN CORPUSCULAR HEMOGLOBIN (BEAKER) (test 30.2 pg 25.7-32.2 kvxk=919) MEAN CORPUSCULAR HEMOGLOBIN CONC (BEAKER) (test 33.2 GM/DL 32.3-36.5 xpbg=155) RED CELL DISTRIBUTION WIDTH (BEAKER) (test 14.3 % 11.6-14.4 xkqe=178) PLATELET COUNT (BEAKER) (test uuxv=068) 561 K/CU MM 150-450 MEAN PLATELET VOLUME (BEAKER) (test scrn=643) 9.2 fL 9.4-12.4 NUCLEATED RED BLOOD CELLS (BEAKER) (test 0 /100 WBC 0-0 zdnd=151) NEUTROPHILS RELATIVE PERCENT (BEAKER) (test 51 % zlhg=947) LYMPHOCYTES RELATIVE PERCENT (BEAKER) (test 32 % hnde=529) MONOCYTES RELATIVE PERCENT (BEAKER) (test 11 % zudk=429) EOSINOPHILS RELATIVE PERCENT (BEAKER) (test 4 % ksvo=111) BASOPHILS RELATIVE PERCENT (BEAKER) (test 2 % zomd=503) NEUTROPHILS ABSOLUTE COUNT (BEAKER) (test 3.66 K/ L 1.78-5.38 imhe=313) LYMPHOCYTES ABSOLUTE COUNT (BEAKER) (test 2.30 K/ L 1.32-3.57 aylb=304) MONOCYTES ABSOLUTE COUNT (BEAKER) (test 0.77 K/ L 0.30-0.82 czvs=123) EOSINOPHILS ABSOLUTE COUNT (BEAKER) (test 0.30 K/ L 0.04-0.54 cdqs=427) BASOPHILS ABSOLUTE COUNT (BEAKER) (test 0.11 K/ L 0.01-0.08 vatx=513) IMMATURE GRANULOCYTES-RELATIVE PERCENT (BEAKER) 1 % 0-1 (test qlao=4816) RAD, CHEST, 1 VIEW, NON [id number] 19:53:00Reason for exam:->check picc placement Should this [...] MDReport Verified Date/Time: 09/15/2017 19:53:01 Reading Location: [address] Reading Room Electronically signed by: GEORGE KEYS M.D. on 07:53 PMCBC W/PLT COUNT & AUTO [id number] 10:27:00 Test Item Value Reference Range Comments WHITE BLOOD CELL COUNT (BEAKER) (test sgas=960) 7.8 K/ L 3.5-10.5 RED BLOOD CELL COUNT (BEAKER) (test bepl=041) 3.95 M/ L 4.63-6.08 HEMOGLOBIN (BEAKER) (test getd=013) 12.0 GM/DL 13.7-17.5 HEMATOCRIT (BEAKER) (test utmw=177) 35.9 % 40.1-51.0 MEAN CORPUSCULAR VOLUME (BEAKER) (test effb=124) 90.9 fL 79.0-92.2 MEAN CORPUSCULAR HEMOGLOBIN (BEAKER) (test 30.4 pg 25.7-32.2 ohbw=693) MEAN CORPUSCULAR HEMOGLOBIN CONC (BEAKER) (test 33.4 GM/DL 32.3-36.5 ldys=487) RED CELL DISTRIBUTION WIDTH (BEAKER) (test 14.6 % 11.6-14.4 ydwq=263) PLATELET COUNT (BEAKER) (test kuaa=461) 543 K/CU MM 150-450 MEAN PLATELET VOLUME (BEAKER) (test tepx=558) 9.1 fL 9.4-12.4 NUCLEATED RED BLOOD CELLS (BEAKER) (test 0 /100 WBC 0-0 saug=642) NEUTROPHILS RELATIVE PERCENT (BEAKER) (test 59 % lces=273) LYMPHOCYTES RELATIVE PERCENT (BEAKER) (test 27 % kuai=489) MONOCYTES RELATIVE PERCENT (BEAKER) (test 11 % lmnc=681) EOSINOPHILS RELATIVE PERCENT (BEAKER) (test 1 % zsql=708) BASOPHILS RELATIVE PERCENT (BEAKER) (test 1 % ngwc=613) NEUTROPHILS ABSOLUTE COUNT (BEAKER) (test 4.56 K/ L 1.78-5.38 uzce=244) LYMPHOCYTES ABSOLUTE COUNT (BEAKER) (test 2.11 K/ L 1.32-3.57 mtlp=845) MONOCYTES ABSOLUTE COUNT (BEAKER) (test 0.89 K/ L 0.30-0.82 guqn=311) EOSINOPHILS ABSOLUTE COUNT (BEAKER) (test 0.11 K/ L 0.04-0.54 tfto=838) BASOPHILS ABSOLUTE COUNT (BEAKER) (test 0.08 K/ L 0.01-0.08 yjnt=670) IMMATURE GRANULOCYTES-RELATIVE PERCENT (BEAKER) 0 % 0-1 (test errg=5465) PERIPHERAL BLOOD SMEAR - PATHOLOGIST [id number] 10:04:00 Test Item Value Reference Range Comments PERIPHERAL SMR REVIEW (BEAKER) Thrombocytosis. No circulating (test kazz=8515) blasts or increased schistocytes. Clinical follow up recommended. [id number] (BEAKER) Enoch Saba (test uikh=2088) Miladis(electronic signature) [id number] 06:02:00 Test Item Value Reference Range Comments PHOSPHORUS (BEAKER) (test fmun=258) 3.3 mg/dL 2.3-4.7 [id number] 06:02:00 Test Item Value Reference Range Comments MAGNESIUM (BEAKER) (test cgjn=290) 2.0 mg/dL 1.6-2.6 BASIC METABOLIC [id number] 06:02:00 Test Item Value Reference Range Comments SODIUM (BEAKER) (test 132 meq/L 136-145 nbmk=471) POTASSIUM (BEAKER) (test 3.7 meq/L 3.5-5.1 qfsu=129) CHLORIDE (BEAKER) (test 102 meq/L 98-107 jzmn=977) CO2 (BEAKER) (test 22 meq/L 22-29 vjoj=885) BLOOD UREA NITROGEN 11 mg/dL 7-21 (BEAKER) (test skpu=049) CREATININE (BEAKER) (test 0.52 mg/dL 0.57-1.25 nzyr=509) GLUCOSE RANDOM (BEAKER) 76 mg/dL 70-105 (test fizr=184) CALCIUM (BEAKER) (test 9.4 mg/dL 8.4-10.2 uszg=767) EGFR (BEAKER) (test 178 mL/min/1.73 sq m ESTIMATED GFR IS NOT gqsk=0577) ACCURATE CREATININE CLEARANCE IN PREDICTING GLOMERULAR FILTRATION RATE. ESTIMATED GFR IS NOT APPLICABLE FOR DIALYSIS PATIENTS. VITAMIN B12 AND [id number] 12:22:00 Test Item Value Reference Range Comments VITAMIN B12 (BEAKER) (test djer=053) 527 pg/mL 213-816 FOLATE (BEAKER) (test cwzs=935) 12.3 ng/mL >=7.0 [id number] 07:34:00 Test Item Value Reference Range Comments LIPASE (BEAKER) (test puen=597) 1107 U/L 8-78 BASIC METABOLIC [id number] 07:32:00 Test Item Value Reference Range Comments SODIUM (BEAKER) (test 134 meq/L 136-145 mntd=272) POTASSIUM (BEAKER) (test 3.7 meq/L 3.5-5.1 dnvm=344) CHLORIDE (BEAKER) (test 103 meq/L 98-107 nxlm=491) CO2 (BEAKER) (test 20 meq/L 22-29 vjfe=820) BLOOD UREA NITROGEN 10 mg/dL 7-21 (BEAKER) (test bsdi=369) CREATININE (BEAKER) (test 0.59 mg/dL 0.57-1.25 vzty=476) GLUCOSE RANDOM (BEAKER) 96 mg/dL 70-105 (test xnyy=957) CALCIUM (BEAKER) (test 9.7 mg/dL 8.4-10.2 lbew=221) EGFR (BEAKER) (test 154 mL/min/1.73 sq m ESTIMATED GFR IS NOT rxcj=8129) ACCURATE CREATININE CLEARANCE IN PREDICTING GLOMERULAR FILTRATION RATE. ESTIMATED GFR IS NOT APPLICABLE FOR DIALYSIS PATIENTS. [id number] 07:32:00 Test Item Value Reference Range Comments MAGNESIUM (BEAKER) (test yysy=032) 1.9 mg/dL 1.6-2.6 [id number] 07:32:00 Test Item Value Reference Range Comments PHOSPHORUS (BEAKER) (test womp=975) 3.4 mg/dL 2.3-4.7 CBC W/PLT COUNT & AUTO [id number] 06:44:00 Test Item Value Reference Range Comments WHITE BLOOD CELL COUNT (BEAKER) (test tjmj=571) 12.1 K/ L 3.5-10.5 RED BLOOD CELL COUNT (BEAKER) (test egij=754) 4.34 M/ L 4.63-6.08 HEMOGLOBIN (BEAKER) (test tnmm=854) 13.1 GM/DL 13.7-17.5 HEMATOCRIT (BEAKER) (test lhtb=115) 39.2 % 40.1-51.0 MEAN CORPUSCULAR VOLUME (BEAKER) (test bpno=395) 90.3 fL 79.0-92.2 MEAN CORPUSCULAR HEMOGLOBIN (BEAKER) (test 30.2 pg 25.7-32.2 haax=835) MEAN CORPUSCULAR HEMOGLOBIN CONC (BEAKER) (test 33.4 GM/DL 32.3-36.5 uvto=612) RED CELL DISTRIBUTION WIDTH (BEAKER) (test 14.9 % 11.6-14.4 olxs=769) PLATELET COUNT (BEAKER) (test cpya=914) 636 K/CU MM 150-450 MEAN PLATELET VOLUME (BEAKER) (test kcsl=706) 9.5 fL 9.4-12.4 NUCLEATED RED BLOOD CELLS (BEAKER) (test 0 /100 WBC 0-0 izcz=603) NEUTROPHILS RELATIVE PERCENT (BEAKER) (test 72 % klml=968) LYMPHOCYTES RELATIVE PERCENT (BEAKER) (test 15 % pmsl=167) MONOCYTES RELATIVE PERCENT (BEAKER) (test 11 % rhqp=171) EOSINOPHILS RELATIVE PERCENT (BEAKER) (test 0 % tvoc=523) BASOPHILS RELATIVE PERCENT (BEAKER) (test 0 % opce=716) NEUTROPHILS ABSOLUTE COUNT (BEAKER) (test 8.72 K/ L 1.78-5.38 hnzb=924) LYMPHOCYTES ABSOLUTE COUNT (BEAKER) (test 1.87 K/ L 1.32-3.57 iyhv=654) MONOCYTES ABSOLUTE COUNT (BEAKER) (test 1.38 K/ L 0.30-0.82 pviu=957) EOSINOPHILS ABSOLUTE COUNT (BEAKER) (test 0.02 K/ L 0.04-0.54 ukln=466) BASOPHILS ABSOLUTE COUNT (BEAKER) (test 0.05 K/ L 0.01-0.08 qxkg=780) IMMATURE GRANULOCYTES-RELATIVE PERCENT (BEAKER) 1 % 0-1 (test qsqo=4005) FINE NEEDLE ASPIRATION BY [id number] 13:21:00Medical Cytology Report Case: [id number] Authorizing Provider: Bessy Hernandez MD Collected: 2017 1743 Ordering Location: [address] Received : 09/08/2017 1814 Service Pathologist: Mir Anthony MD Specimen: Pancreas PANCREAS HEAD CYSTICLESION FNA BY CLINICIAN ( CYTOSPINS AND CELL BLOCK OF ASPIRATE): - NO MALIGNANT CELLS IDENTIFIED - The mucin stain shows focal weak staining Signing Pathologist Direct Phone Line : [phone] signed by Mir Anthony MD on 09/11/2017 at 1:21 PMThe cell block shows non-inflammed pancreatic acinar tissue.96712, 07869, 90722(4.9 X 4.8 cm) Cystic lesion in the pancreatic headPANCREAS HEAD CYSTIC LESION FNA25 mls in cytorich red; 4 cytospins, 1 mucin stain, cell blockCollected: [id number]: [id number] [facility], Department of Pathology, [address] [place] [address], [facility], [address] [place] [address], [id number] 10:07:00 Test Item Value Reference Range Comments PARTIAL THROMBOPLASTIN TIME (BEAKER) (test 44.5 seconds 22.5-36.0 oasu=666) BASIC METABOLIC [id number] 05:56:00 Test Item Value Reference Range Comments SODIUM (BEAKER) (test 138 meq/L 136-145 pyjn=724) POTASSIUM (BEAKER) (test 3.7 meq/L 3.5-5.1 mhpb=188) CHLORIDE (BEAKER) (test 105 meq/L 98-107 lbkz=850) CO2 (BEAKER) (test 25 meq/L 22-29 wjzj=599) BLOOD UREA NITROGEN 7 mg/dL 7-21 (BEAKER) (test dgyz=805) CREATININE (BEAKER) (test 0.62 mg/dL 0.57-1.25 fkub=183) GLUCOSE RANDOM (BEAKER) 120 mg/dL 70-105 (test ienn=002) CALCIUM (BEAKER) (test 8.7 mg/dL 8.4-10.2 nczn=892) EGFR (BEAKER) (test 145 mL/min/1.73 sq m ESTIMATED GFR IS NOT onqs=6477) ACCURATE CREATININE CLEARANCE IN PREDICTING GLOMERULAR FILTRATION RATE. ESTIMATED GFR IS NOT APPLICABLE FOR DIALYSIS PATIENTS. CBC W/PLT COUNT & AUTO [id number] 05:42:00 Test Item Value Reference Range Comments WHITE BLOOD CELL COUNT (BEAKER) (test lity=946) 4.6 K/ L 3.5-10.5 RED BLOOD CELL COUNT (BEAKER) (test vmcm=759) 3.83 M/ L 4.63-6.08 HEMOGLOBIN (BEAKER) (test bcib=009) 11.7 GM/DL 13.7-17.5 HEMATOCRIT (BEAKER) (test cufs=934) 34.7 % 40.1-51.0 MEAN CORPUSCULAR VOLUME (BEAKER) (test cenr=173) 90.6 fL 79.0-92.2 MEAN CORPUSCULAR HEMOGLOBIN (BEAKER) (test 30.5 pg 25.7-32.2 zlza=698) MEAN CORPUSCULAR HEMOGLOBIN CONC (BEAKER) (test 33.7 GM/DL 32.3-36.5 qvvr=744) RED CELL DISTRIBUTION WIDTH (BEAKER) (test 14.3 % 11.6-14.4 uxeb=825) PLATELET COUNT (BEAKER) (test vtpt=948) 378 K/CU MM 150-450 MEAN PLATELET VOLUME (BEAKER) (test xjfg=351) 9.0 fL 9.4-12.4 NUCLEATED RED BLOOD CELLS (BEAKER) (test 0 /100 WBC 0-0 rpbx=578) NEUTROPHILS RELATIVE PERCENT (BEAKER) (test 39 % aqms=363) LYMPHOCYTES RELATIVE PERCENT (BEAKER) (test 43 % bwxx=712) MONOCYTES RELATIVE PERCENT (BEAKER) (test 12 % kjwc=691) EOSINOPHILS RELATIVE PERCENT (BEAKER) (test 5 % oxqr=171) BASOPHILS RELATIVE PERCENT (BEAKER) (test 1 % fnxz=890) NEUTROPHILS ABSOLUTE COUNT (BEAKER) (test 1.81 K/ L 1.78-5.38 xzbr=023) LYMPHOCYTES ABSOLUTE COUNT (BEAKER) (test 2.01 K/ L 1.32-3.57 gzxu=717) MONOCYTES ABSOLUTE COUNT (BEAKER) (test 0.55 K/ L 0.30-0.82 iyjz=626) EOSINOPHILS ABSOLUTE COUNT (BEAKER) (test 0.21 K/ L 0.04-0.54 ikzq=579) BASOPHILS ABSOLUTE COUNT (BEAKER) (test 0.05 K/ L 0.01-0.08 vhvu=516) IMMATURE GRANULOCYTES-RELATIVE PERCENT (BEAKER) 0 % 0-1 (test fzui=5461) FINE NEEDLE ASPIRATE (FNA) [id number] 20:00:00 Test Item Value Reference Range Comments CYTOLOGY RESULT POINTER (BEAKER) (test See Separate Report jeab=[id number]) [id number] 12:16:00 Test Item Value Reference Range Comments PARTIAL THROMBOPLASTIN TIME (BEAKER) (test 84.6 seconds 22.5-36.0 zbsl=792) BASIC METABOLIC [id number] 05:21:00 Test Item Value Reference Range Comments SODIUM (BEAKER) (test 126 meq/L 136-145 bjjg=639) POTASSIUM (BEAKER) (test 2.8 meq/L 3.5-5.1 aiyg=583) CHLORIDE (BEAKER) (test 99 meq/L 98-107 qbxp=740) CO2 (BEAKER) (test 20 meq/L 22-29 pejt=293) BLOOD UREA NITROGEN 3 mg/dL 7-21 (BEAKER) (test wypu=624) CREATININE (BEAKER) (test 0.44 mg/dL 0.57-1.25 fcgf=295) GLUCOSE RANDOM (BEAKER) 75 mg/dL 70-105 (test cqxl=331) CALCIUM (BEAKER) (test 6.8 mg/dL 8.4-10.2 pfxb=885) EGFR (BEAKER) (test 216 mL/min/1.73 sq m ESTIMATED GFR IS NOT mkeq=4461) ACCURATE CREATININE CLEARANCE IN PREDICTING GLOMERULAR FILTRATION RATE. ESTIMATED GFR IS NOT APPLICABLE FOR DIALYSIS PATIENTS. [id number] 05:13:00 Test Item Value Reference Range Comments PARTIAL THROMBOPLASTIN TIME (BEAKER) (test 110.2 seconds 22.5-36.0 qupp=353) CBC W/PLT COUNT & AUTO [id number] 04:45:00 Test Item Value Reference Range Comments WHITE BLOOD CELL COUNT (BEAKER) (test yilq=027) 4.4 K/ L 3.5-10.5 RED BLOOD CELL COUNT (BEAKER) (test vzro=617) 3.25 M/ L 4.63-6.08 HEMOGLOBIN (BEAKER) (test sslc=520) 10.1 GM/DL 13.7-17.5 HEMATOCRIT (BEAKER) (test zzzq=605) 29.9 % 40.1-51.0 MEAN CORPUSCULAR VOLUME (BEAKER) (test vajn=131) 92.0 fL 79.0-92.2 MEAN CORPUSCULAR HEMOGLOBIN (BEAKER) (test 31.1 pg 25.7-32.2 tger=069) MEAN CORPUSCULAR HEMOGLOBIN CONC (BEAKER) (test 33.8 GM/DL 32.3-36.5 biwj=528) RED CELL DISTRIBUTION WIDTH (BEAKER) (test 14.5 % 11.6-14.4 mupo=657) PLATELET COUNT (BEAKER) (test yfrp=483) 297 K/CU MM 150-450 MEAN PLATELET VOLUME (BEAKER) (test czrn=071) 9.1 fL 9.4-12.4 NUCLEATED RED BLOOD CELLS (BEAKER) (test 0 /100 WBC 0-0 phcw=501) NEUTROPHILS RELATIVE PERCENT (BEAKER) (test 44 % ahcb=828) LYMPHOCYTES RELATIVE PERCENT (BEAKER) (test 40 % lmep=785) MONOCYTES RELATIVE PERCENT (BEAKER) (test 11 % wdhy=000) EOSINOPHILS RELATIVE PERCENT (BEAKER) (test 4 % dvqu=551) BASOPHILS RELATIVE PERCENT (BEAKER) (test 1 % kkqv=543) NEUTROPHILS ABSOLUTE COUNT (BEAKER) (test 1.96 K/ L 1.78-5.38 avsk=206) LYMPHOCYTES ABSOLUTE COUNT (BEAKER) (test 1.77 K/ L 1.32-3.57 sfjk=536) MONOCYTES ABSOLUTE COUNT (BEAKER) (test 0.49 K/ L 0.30-0.82 pjns=368) EOSINOPHILS ABSOLUTE COUNT (BEAKER) (test 0.16 K/ L 0.04-0.54 quvk=329) BASOPHILS ABSOLUTE COUNT (BEAKER) (test 0.05 K/ L 0.01-0.08 nfcu=536) IMMATURE GRANULOCYTES-RELATIVE PERCENT (BEAKER) 0 % 0-1 (test lckx=7443) [id number] 21:32:00 Test Item Value Reference Range Comments PARTIAL THROMBOPLASTIN TIME (BEAKER) (test 118.1 seconds 22.5-36.0 gacq=421) BASIC METABOLIC [id number] 14:23:00 Test Item Value Reference Range Comments SODIUM (BEAKER) (test 139 meq/L 136-145 etdb=308) POTASSIUM (BEAKER) (test 3.6 meq/L 3.5-5.1 jlmc=453) CHLORIDE (BEAKER) (test 103 meq/L 98-107 cvbd=922) CO2 (BEAKER) (test 29 meq/L 22-29 aqan=568) BLOOD UREA NITROGEN 3 mg/dL 7-21 (BEAKER) (test xepj=321) CREATININE (BEAKER) (test 0.54 mg/dL 0.57-1.25 amat=743) GLUCOSE RANDOM (BEAKER) 108 mg/dL 70-105 (test gcbv=805) CALCIUM (BEAKER) (test 8.6 mg/dL 8.4-10.2 zzto=453) EGFR (BEAKER) (test 170 mL/min/1.73 sq m ESTIMATED GFR IS NOT satj=3512) ACCURATE CREATININE CLEARANCE IN PREDICTING GLOMERULAR FILTRATION RATE. ESTIMATED GFR IS NOT APPLICABLE FOR DIALYSIS PATIENTS. [id number] 14:06:00 Test Item Value Reference Range Comments PARTIAL THROMBOPLASTIN TIME (BEAKER) (test 66.8 seconds 22.5-36.0 crip=590) CBC W/PLT COUNT & AUTO [id number] 13:57:00 Test Item Value Reference Range Comments WHITE BLOOD CELL COUNT (BEAKER) (test uwlt=162) 4.6 K/ L 3.5-10.5 RED BLOOD CELL COUNT (BEAKER) (test qvmg=038) 3.95 M/ L 4.63-6.08 HEMOGLOBIN (BEAKER) (test hlbc=074) 11.9 GM/DL 13.7-17.5 HEMATOCRIT (BEAKER) (test kcvv=012) 36.5 % 40.1-51.0 MEAN CORPUSCULAR VOLUME (BEAKER) (test tbhf=464) 92.4 fL 79.0-92.2 MEAN CORPUSCULAR HEMOGLOBIN (BEAKER) (test 30.1 pg 25.7-32.2 jugc=944) MEAN CORPUSCULAR HEMOGLOBIN CONC (BEAKER) (test 32.6 GM/DL 32.3-36.5 baxl=718) RED CELL DISTRIBUTION WIDTH (BEAKER) (test 14.2 % 11.6-14.4 noee=167) PLATELET COUNT (BEAKER) (test bpob=351) 347 K/CU MM 150-450 MEAN PLATELET VOLUME (BEAKER) (test fgeh=936) 9.2 fL 9.4-12.4 NUCLEATED RED BLOOD CELLS (BEAKER) (test 0 /100 WBC 0-0 khqq=597) NEUTROPHILS RELATIVE PERCENT (BEAKER) (test 44 % xcnf=439) LYMPHOCYTES RELATIVE PERCENT (BEAKER) (test 37 % dbvo=167) MONOCYTES RELATIVE PERCENT (BEAKER) (test 13 % jnjt=141) EOSINOPHILS RELATIVE PERCENT (BEAKER) (test 5 % ktvh=139) BASOPHILS RELATIVE PERCENT (BEAKER) (test 1 % tprn=247) NEUTROPHILS ABSOLUTE COUNT (BEAKER) (test 1.99 K/ L 1.78-5.38 mrvx=844) LYMPHOCYTES ABSOLUTE COUNT (BEAKER) (test 1.69 K/ L 1.32-3.57 fere=507) MONOCYTES ABSOLUTE COUNT (BEAKER) (test 0.61 K/ L 0.30-0.82 svfp=701) EOSINOPHILS ABSOLUTE COUNT (BEAKER) (test 0.21 K/ L 0.04-0.54 miqj=391) BASOPHILS ABSOLUTE COUNT (BEAKER) (test 0.05 K/ L 0.01-0.08 oaav=994) IMMATURE GRANULOCYTES-RELATIVE PERCENT (BEAKER) 0 % 0-1 (test ujwu=2915) BASIC METABOLIC [id number] 07:03:00 Test Item Value Reference Range Comments SODIUM (BEAKER) (test 140 meq/L 136-145 wcyc=572) POTASSIUM (BEAKER) (test 3.4 meq/L 3.5-5.1 mhrx=406) CHLORIDE (BEAKER) (test 100 meq/L 98-107 ngeu=400) CO2 (BEAKER) (test 30 meq/L 22-29 tggs=158) BLOOD UREA NITROGEN 3 mg/dL 7-21 (BEAKER) (test bqfw=044) CREATININE (BEAKER) (test 0.56 mg/dL 0.57-1.25 ifmv=468) GLUCOSE RANDOM (BEAKER) 102 mg/dL 70-105 (test asaw=104) CALCIUM (BEAKER) (test 9.2 mg/dL 8.4-10.2 wmna=338) EGFR (BEAKER) (test 163 mL/min/1.73 sq m ESTIMATED GFR IS NOT zlxk=3881) ACCURATE CREATININE CLEARANCE IN PREDICTING GLOMERULAR FILTRATION RATE. ESTIMATED GFR IS NOT APPLICABLE FOR DIALYSIS PATIENTS. [id number] 06:47:00 Test Item Value Reference Range Comments PARTIAL THROMBOPLASTIN TIME (BEAKER) (test 46.7 seconds 22.5-36.0 cjod=348) [id number] 00:50:00 Test Item Value Reference Range Comments PARTIAL THROMBOPLASTIN TIME (BEAKER) (test 53.5 seconds 22.5-36.0 hexg=641) [id number] 17:34:00 Test Item Value Reference Range Comments PARTIAL THROMBOPLASTIN TIME (BEAKER) (test 45.8 seconds 22.5-36.0 csko=417) [id number] 08:32:00 Test Item Value Reference Range Comments PARTIAL THROMBOPLASTIN TIME (BEAKER) (test 38.7 seconds 22.5-36.0 barf=738) Prior to initiating heparinBASIC METABOLIC [id number] 06:05:00 Test Item Value Reference Range Comments SODIUM (BEAKER) (test 136 meq/L 136-145 aipc=066) POTASSIUM (BEAKER) (test 3.3 meq/L 3.5-5.1 nuiy=062) CHLORIDE (BEAKER) (test 102 meq/L 98-107 dzjs=451) CO2 (BEAKER) (test 26 meq/L 22-29 ilnf=717) BLOOD UREA NITROGEN 2 mg/dL 7-21 (BEAKER) (test gnwj=309) CREATININE (BEAKER) (test 0.55 mg/dL 0.57-1.25 ovda=432) GLUCOSE RANDOM (BEAKER) 124 mg/dL 70-105 (test kpuf=421) CALCIUM (BEAKER) (test 8.0 mg/dL 8.4-10.2 jtwa=061) EGFR (BEAKER) (test 167 mL/min/1.73 sq m ESTIMATED GFR IS NOT ixxc=4219) ACCURATE CREATININE CLEARANCE IN PREDICTING GLOMERULAR FILTRATION RATE. ESTIMATED GFR IS NOT APPLICABLE FOR DIALYSIS PATIENTS. BLOOD [id number] 06:00:00 Test Item Value Reference Range Comments CULTURE (BEAKER) (test zeom=2836) No growth in 5 days BLOOD [id number] 06:00:00 Test Item Value Reference Range Comments CULTURE (BEAKER) (test zwdt=0321) No growth in 5 days [id number] 03:55:00 Test Item Value Reference Range Comments PHOSPHORUS (BEAKER) (test smbw=000) 2.8 mg/dL 2.3-4.7 [id number] 03:55:00 Test Item Value Reference Range Comments MAGNESIUM (BEAKER) (test inqu=254) 1.3 mg/dL 1.6-2.6 BASIC METABOLIC [id number] 03:55:00 Test Item Value Reference Range Comments SODIUM (BEAKER) (test 137 meq/L 136-145 cvgt=554) POTASSIUM (BEAKER) (test 3.2 meq/L 3.5-5.1 syyj=518) CHLORIDE (BEAKER) (test 103 meq/L 98-107 tidb=911) CO2 (BEAKER) (test 22 meq/L 22-29 qkqu=148) BLOOD UREA NITROGEN 3 mg/dL 7-21 (BEAKER) (test fgbm=920) CREATININE (BEAKER) (test 0.51 mg/dL 0.57-1.25 nffj=815) GLUCOSE RANDOM (BEAKER) 65 mg/dL 70-105 (test kjgs=345) CALCIUM (BEAKER) (test 8.0 mg/dL 8.4-10.2 wevt=897) EGFR (BEAKER) (test 182 mL/min/1.73 sq m ESTIMATED GFR IS NOT oyxb=5984) ACCURATE CREATININE CLEARANCE IN PREDICTING GLOMERULAR FILTRATION RATE. ESTIMATED GFR IS NOT APPLICABLE FOR DIALYSIS PATIENTS. [id number] 03:55:00 Test Item Value Reference Range Comments LIPASE (BEAKER) (test rdpj=559) 210 U/L 8-78 CBC W/PLT COUNT & AUTO [id number] 03:37:00 Test Item Value Reference Range Comments WHITE BLOOD CELL COUNT (BEAKER) (test mwlh=656) 6.1 K/ L 3.5-10.5 RED BLOOD CELL COUNT (BEAKER) (test agmu=930) 3.63 M/ L 4.63-6.08 HEMOGLOBIN (BEAKER) (test xfbz=197) 11.1 GM/DL 13.7-17.5 HEMATOCRIT (BEAKER) (test zsfn=149) 33.0 % 40.1-51.0 MEAN CORPUSCULAR VOLUME (BEAKER) (test ofqf=494) 90.9 fL 79.0-92.2 MEAN CORPUSCULAR HEMOGLOBIN (BEAKER) (test 30.6 pg 25.7-32.2 nsjr=318) MEAN CORPUSCULAR HEMOGLOBIN CONC (BEAKER) (test 33.6 GM/DL 32.3-36.5 ncfm=633) RED CELL DISTRIBUTION WIDTH (BEAKER) (test 14.3 % 11.6-14.4 tpih=743) PLATELET COUNT (BEAKER) (test pisz=630) 262 K/CU MM 150-450 MEAN PLATELET VOLUME (BEAKER) (test kxff=546) 9.1 fL 9.4-12.4 NUCLEATED RED BLOOD CELLS (BEAKER) (test 0 /100 WBC 0-0 ngwj=905) NEUTROPHILS RELATIVE PERCENT (BEAKER) (test 69 % ggrn=698) LYMPHOCYTES RELATIVE PERCENT (BEAKER) (test 17 % gsti=393) MONOCYTES RELATIVE PERCENT (BEAKER) (test 10 % retj=831) EOSINOPHILS RELATIVE PERCENT (BEAKER) (test 3 % yaza=882) BASOPHILS RELATIVE PERCENT (BEAKER) (test 0 % plov=569) NEUTROPHILS ABSOLUTE COUNT (BEAKER) (test 4.21 K/ L 1.78-5.38 jcbu=205) LYMPHOCYTES ABSOLUTE COUNT (BEAKER) (test 1.04 K/ L 1.32-3.57 xwlt=599) MONOCYTES ABSOLUTE COUNT (BEAKER) (test 0.60 K/ L 0.30-0.82 ysnr=226) EOSINOPHILS ABSOLUTE COUNT (BEAKER) (test 0.18 K/ L 0.04-0.54 aznm=865) BASOPHILS ABSOLUTE COUNT (BEAKER) (test 0.02 K/ L 0.01-0.08 vfus=207) IMMATURE GRANULOCYTES-RELATIVE PERCENT (BEAKER) 1 % 0-1 (test bryw=2875) CT, ABDOMEN - PELVIS, PANCREAS [id number] 00:22:00Reason for exam:-&gt ;pancreatitisFINAL REPORT CT, ABDOMEN [...] Verified Date/ Time: 09/04/2017 00:22:52 Reading Location: [address] Reading Room [id number] 06:00:00 Test Item Value Reference Range Comments MAGNESIUM (BEAKER) (test 1.6 mg/dL 1.6-2.6 Specimen slightly hemolyzed tglg=555) [id number] 06:00:00 Test Item Value Reference Range Comments PHOSPHORUS (BEAKER) (test 3.4 mg/dL 2.3-4.7 Specimen slightly hemolyzed atdp=976) BASIC METABOLIC [id number] 06:00:00 Test Item Value Reference Range Comments SODIUM (BEAKER) (test 132 meq/L 136-145 mtay=640) POTASSIUM (BEAKER) (test 3.9 meq/L 3.5-5.1 Specimen slightly mgqr=045) hemolyzed CHLORIDE (BEAKER) (test 101 meq/L 98-107 bfiy=125) CO2 (BEAKER) (test 22 meq/L 22-29 tjzq=838) BLOOD UREA NITROGEN 7 mg/dL 7-21 (BEAKER) (test qmcq=595) CREATININE (BEAKER) (test 0.49 mg/dL 0.57-1.25 Specimen slightly etgt=023) hemolyzed GLUCOSE RANDOM (BEAKER) 59 mg/dL 70-105 (test rbpm=881) CALCIUM (BEAKER) (test 8.1 mg/dL 8.4-10.2 nhac=036) EGFR (BEAKER) (test 190 mL/min/1.73 sq m ESTIMATED GFR IS NOT tqbt=9448) ACCURATE CREATININE CLEARANCE IN PREDICTING GLOMERULAR FILTRATION RATE. ESTIMATED GFR IS NOT APPLICABLE FOR DIALYSIS PATIENTS. HEPATIC FUNCTION [id number] 06:00:00 Test Item Value Reference Range Comments TOTAL PROTEIN (BEAKER) (test 5.7 gm/dL 6.0-8.3 Specimen slightly hemolyzed gfyh=080) ALBUMIN (BEAKER) (test 3.0 g/dL 3.5-5.0 Specimen slightly hemolyzed rzok=5564) BILIRUBIN TOTAL (BEAKER) (test 1.2 mg/dL 0.2-1.2 Specimen slightly hemolyzed bvsc=653) BILIRUBIN DIRECT (BEAKER) (test 0.4 mg/dL 0.1-0.5 Specimen slightly hemolyzed qigh=761) ALKALINE PHOSPHATASE (BEAKER) 62 U/L 40-150 (test jikg=261) AST (SGOT) (BEAKER) (test 18 U/L 5-34 Specimen slightly hemolyzed zslu=904) ALT (SGPT) (BEAKER) (test < U/L 6-55 Specimen slightly hemolyzed qfrx=595) CBC W/PLT COUNT & AUTO [id number] 05:43:00 Test Item Value Reference Range Comments WHITE BLOOD CELL COUNT (BEAKER) (test taeg=707) 8.4 K/ L 3.5-10.5 RED BLOOD CELL COUNT (BEAKER) (test mdxn=557) 3.68 M/ L 4.63-6.08 HEMOGLOBIN (BEAKER) (test keiw=237) 11.6 GM/DL 13.7-17.5 HEMATOCRIT (BEAKER) (test lsai=556) 34.4 % 40.1-51.0 MEAN CORPUSCULAR VOLUME (BEAKER) (test wbok=455) 93.5 fL 79.0-92.2 MEAN CORPUSCULAR HEMOGLOBIN (BEAKER) (test 31.5 pg 25.7-32.2 wgzo=205) MEAN CORPUSCULAR HEMOGLOBIN CONC (BEAKER) (test 33.7 GM/DL 32.3-36.5 dotr=873) RED CELL DISTRIBUTION WIDTH (BEAKER) (test 14.6 % 11.6-14.4 potb=957) PLATELET COUNT (BEAKER) (test fjcj=610) 221 K/CU MM 150-450 MEAN PLATELET VOLUME (BEAKER) (test gzll=827) 9.5 fL 9.4-12.4 NUCLEATED RED BLOOD CELLS (BEAKER) (test 0 /100 WBC 0-0 kbkt=455) NEUTROPHILS RELATIVE PERCENT (BEAKER) (test 75 % aype=536) LYMPHOCYTES RELATIVE PERCENT (BEAKER) (test 14 % djfl=956) MONOCYTES RELATIVE PERCENT (BEAKER) (test 10 % zwxq=998) EOSINOPHILS RELATIVE PERCENT (BEAKER) (test 1 % ygkx=762) BASOPHILS RELATIVE PERCENT (BEAKER) (test 0 % kuwa=270) NEUTROPHILS ABSOLUTE COUNT (BEAKER) (test 6.27 K/ L 1.78-5.38 sjkg=768) LYMPHOCYTES ABSOLUTE COUNT (BEAKER) (test 1.16 K/ L 1.32-3.57 cokv=998) MONOCYTES ABSOLUTE COUNT (BEAKER) (test 0.87 K/ L 0.30-0.82 yfdw=171) EOSINOPHILS ABSOLUTE COUNT (BEAKER) (test 0.07 K/ L 0.04-0.54 gjkx=505) BASOPHILS ABSOLUTE COUNT (BEAKER) (test 0.03 K/ L 0.01-0.08 omwb=253) IMMATURE GRANULOCYTES-RELATIVE PERCENT (BEAKER) 0 % 0-1 (test snsr=4228) POCT-GLUCOSE [id number] 07:30:00 Test Item Value Reference Range Comments POC-GLUCOSE METER (BEAKER) 140 mg/dL 70-110 TESTED AT [address] (test rqmv=1705) [place] [id number] POCT-GLUCOSE [id number] 07:30:00 Test Item Value Reference Range Comments POC-GLUCOSE METER (BEAKER) 59 mg/dL 70-110 TESTED AT [address] (test cgdn=7290) [place] [id number] 05:16:00 Test Item Value Reference Range Comments MAGNESIUM (BEAKER) (test 1.7 mg/dL 1.6-2.6 Specimen slightly hemolyzed hhsp=495) [id number] 05:16:00 Test Item Value Reference Range Comments PHOSPHORUS (BEAKER) (test 3.7 mg/dL 2.3-4.7 Specimen slightly hemolyzed cmsh=388) BASIC METABOLIC [id number] 05:16:00 Test Item Value Reference Range Comments SODIUM (BEAKER) (test 136 meq/L 136-145 ovkc=594) POTASSIUM (BEAKER) (test 4.1 meq/L 3.5-5.1 Specimen slightly gjrd=509) hemolyzed CHLORIDE (BEAKER) (test 105 meq/L 98-107 ilig=586) CO2 (BEAKER) (test 21 meq/L 22-29 fwbs=521) BLOOD UREA NITROGEN 12 mg/dL 7-21 (BEAKER) (test tosg=724) CREATININE (BEAKER) (test 0.62 mg/dL 0.57-1.25 Specimen slightly tdhr=224) hemolyzed GLUCOSE RANDOM (BEAKER) 65 mg/dL 70-105 (test uxvy=327) CALCIUM (BEAKER) (test 8.4 mg/dL 8.4-10.2 chva=741) EGFR (BEAKER) (test 145 mL/min/1.73 sq m ESTIMATED GFR IS NOT csam=1019) ACCURATE CREATININE CLEARANCE IN PREDICTING GLOMERULAR FILTRATION RATE. ESTIMATED GFR IS NOT APPLICABLE FOR DIALYSIS PATIENTS. HEPATIC FUNCTION [id number] 05:16:00 Test Item Value Reference Range Comments TOTAL PROTEIN (BEAKER) (test 5.9 gm/dL 6.0-8.3 Specimen slightly hemolyzed hjko=222) ALBUMIN (BEAKER) (test 3.3 g/dL 3.5-5.0 Specimen slightly hemolyzed cerm=1974) BILIRUBIN TOTAL (BEAKER) (test 1.4 mg/dL 0.2-1.2 Specimen slightly hemolyzed wuch=659) BILIRUBIN DIRECT (BEAKER) (test 0.5 mg/dL 0.1-0.5 Specimen slightly hemolyzed bgyt=078) ALKALINE PHOSPHATASE (BEAKER) 66 U/L 40-150 (test wzoo=531) AST (SGOT) (BEAKER) (test 16 U/L 5-34 Specimen slightly hemolyzed vogr=261) ALT (SGPT) (BEAKER) (test 6 U/L 6-55 Specimen slightly hemolyzed ufea=944) CBC W/PLT COUNT & AUTO [id number] 04:45:00 Test Item Value Reference Range Comments WHITE BLOOD CELL COUNT (BEAKER) (test ongg=350) 9.1 K/ L 3.5-10.5 RED BLOOD CELL COUNT (BEAKER) (test tfap=560) 4.04 M/ L 4.63-6.08 HEMOGLOBIN (BEAKER) (test dmkb=566) 12.3 GM/DL 13.7-17.5 HEMATOCRIT (BEAKER) (test uvze=083) 38.1 % 40.1-51.0 MEAN CORPUSCULAR VOLUME (BEAKER) (test bkfh=563) 94.3 fL 79.0-92.2 MEAN CORPUSCULAR HEMOGLOBIN (BEAKER) (test 30.4 pg 25.7-32.2 byvn=612) MEAN CORPUSCULAR HEMOGLOBIN CONC (BEAKER) (test 32.3 GM/DL 32.3-36.5 qtcq=291) RED CELL DISTRIBUTION WIDTH (BEAKER) (test 15.7 % 11.6-14.4 oych=102) PLATELET COUNT (BEAKER) (test zugu=256) 243 K/CU MM 150-450 MEAN PLATELET VOLUME (BEAKER) (test aqae=379) 9.5 fL 9.4-12.4 NUCLEATED RED BLOOD CELLS (BEAKER) (test 0 /100 WBC 0-0 hqbn=063) NEUTROPHILS RELATIVE PERCENT (BEAKER) (test 72 % bvfn=880) LYMPHOCYTES RELATIVE PERCENT (BEAKER) (test 16 % mobv=411) MONOCYTES RELATIVE PERCENT (BEAKER) (test 10 % vrbi=267) EOSINOPHILS RELATIVE PERCENT (BEAKER) (test 1 % rvtq=917) BASOPHILS RELATIVE PERCENT (BEAKER) (test 0 % wyhz=179) NEUTROPHILS ABSOLUTE COUNT (BEAKER) (test 6.58 K/ L 1.78-5.38 czsw=504) LYMPHOCYTES ABSOLUTE COUNT (BEAKER) (test 1.48 K/ L 1.32-3.57 sbdx=362) MONOCYTES ABSOLUTE COUNT (BEAKER) (test 0.95 K/ L 0.30-0.82 laqt=884) EOSINOPHILS ABSOLUTE COUNT (BEAKER) (test 0.05 K/ L 0.04-0.54 lbac=356) BASOPHILS ABSOLUTE COUNT (BEAKER) (test 0.04 K/ L 0.01-0.08 quzr=924) IMMATURE GRANULOCYTES-RELATIVE PERCENT (BEAKER) 0 % 0-1 (test ykyt=5299) HEMOGLOBIN [id number] 10:23:00 Test Item Value Reference Range Comments HEMOGLOBIN A1C (BEAKER) (test mvav=460) 4.7 % 4.3-6.1 U/S, ABDOMINAL, [id number] 09:53:00Abdomen limited area? Add comment if clarification [...] Nelson MDReport Verified Date/Time:09/01/2017 09:53:12 Reading Location: [address] Ultrasound Reading Room SEDIMENTATION [id number] 08:01:00 Test Item Value Reference Range Comments SEDIMENTATION RATE, ERYTHROCYTE (BEAKER) (test 3 mm/HR 0-15 egmj=992) TSH/FREE T4 IF [id number] 04:12:00 Test Item Value Reference Range Comments THYROID STIMULATING HORMONE (BEAKER) (test 0.36 uIU/mL 0.35-4.94 esfk=455) CREATINE KINASE (CK), TOTAL AND [id number] 04:03:00 Test Item Value Reference Range Comments CREATINE KINASE TOTAL (BEAKER) (test aqvy=867) 29 U/L 29-200 CREATINE KINASE-MB (BEAKER) (test mcbs=987) 0.4 ng/mL 0.0-6.6 CREATINE KINASE-MB INDEX (BEAKER) (test aave=351) 1.4 % CK-MB Reference Range:<6.7 Normal6.7-10.0 Borderline>10.0 AbnormalTROPONIN [id number] 04:03:00 Test Item Value Reference Range Comments TROPONIN I (BEAKER) (test wohh=447) < ng/mL 0.00-0.03 Troponin I (TnI) levels [...] failure, acidosis, acute neurological disease, and persistent tachyarrhythmia.[id number] 03:53:00 Test Item Value Reference Range Comments PHOSPHORUS (BEAKER) (test uyhj=712) 3.5 mg/dL 2.3-4.7 [id number] 03:53:00 Test Item Value Reference Range Comments MAGNESIUM (BEAKER) (test bzuj=553) 1.7 mg/dL 1.6-2.6 BASIC METABOLIC [id number] 03:53:00 Test Item Value Reference Range Comments SODIUM (BEAKER) (test 137 meq/L 136-145 yhgy=291) POTASSIUM (BEAKER) (test 3.8 meq/L 3.5-5.1 txib=248) CHLORIDE (BEAKER) (test 105 meq/L 98-107 eynk=450) CO2 (BEAKER) (test 23 meq/L 22-29 jzyv=505) BLOOD UREA NITROGEN 7 mg/dL 7-21 (BEAKER) (test fklq=312) CREATININE (BEAKER) (test 0.62 mg/dL 0.57-1.25 ibtn=787) GLUCOSE RANDOM (BEAKER) 102 mg/dL 70-105 (test ioob=420) CALCIUM (BEAKER) (test 9.0 mg/dL 8.4-10.2 hutu=842) EGFR (BEAKER) (test 145 mL/min/1.73 sq m ESTIMATED GFR IS NOT yawk=2621) ACCURATE CREATININE CLEARANCE IN PREDICTING GLOMERULAR FILTRATION RATE. ESTIMATED GFR IS NOT APPLICABLE FOR DIALYSIS PATIENTS. LIPID [id number] 03:53:00 Test Item Value Reference Range Comments TRIGLYCERIDES (BEAKER) (test itxg=596) 76 mg/dL CHOLESTEROL (BEAKER) (test npra=494) 118 mg/dL HDL CHOLESTEROL (BEAKER) (test wpvh=756) 37 mg/dL LDL CHOLESTEROL CALCULATED (BEAKER) (test 66 mg/dL fbte=981) Triglyceride Reference Range: Low Risk <150 Borderline 150- 199 High Risk 200-499 Very High Risk >=500Cholesterol Reference Range: Low Risk <200 Borderline 200-239 High Risk > 240HDL Cholesterol Reference Range: Low Risk >=60 High Risk <40LDL Cholesterol Reference Range: Optimal <100 Near Optimal 100-129 Borderline 130-159 High 160-189 Very High >=190HEPATIC FUNCTION [id number] 03:53:00 Test Item Value Reference Range Comments TOTAL PROTEIN (BEAKER) (test mhox=445) 6.8 gm/dL 6.0-8.3 ALBUMIN (BEAKER) (test wnzu=5322) 3.9 g/dL 3.5-5.0 BILIRUBIN TOTAL (BEAKER) (test blei=093) 1.2 mg/dL 0.2-1.2 BILIRUBIN DIRECT (BEAKER) (test gboq=355) 0.5 mg/dL 0.1-0.5 ALKALINE PHOSPHATASE (BEAKER) (test btgh=365) 81 U/L 40-150 AST (SGOT) (BEAKER) (test gjuq=919) 13 U/L 5-34 ALT (SGPT) (BEAKER) (test xeix=619) 6 U/L 6-55 [id number] 03:53:00 Test Item Value Reference Range Comments AMYLASE (BEAKER) (test jzhf=998) 383 U/L 25-125 [id number] 03:53:00 Test Item Value Reference Range Comments LIPASE (BEAKER) (test gfmg=218) 266 U/L 8-78 C-REACTIVE [id number] 03:53:00 Test Item Value Reference Range Comments C-REACTIVE PROTEIN (BEAKER) (test zetw=017) 0.23 mg/dL 0.00-0.50 CBC W/PLT COUNT & AUTO [id number] 03:38:00 Test Item Value Reference Range Comments WHITE BLOOD CELL COUNT (BEAKER) (test cvlw=764) 10.7 K/ L 3.5-10.5 RED BLOOD CELL COUNT (BEAKER) (test vbas=080) 4.45 M/ L 4.63-6.08 HEMOGLOBIN (BEAKER) (test yduc=695) 13.6 GM/DL 13.7-17.5 HEMATOCRIT (BEAKER) (test xhzf=215) 40.4 % 40.1-51.0 MEAN CORPUSCULAR VOLUME (BEAKER) (test fpuc=085) 90.8 fL 79.0-92.2 MEAN CORPUSCULAR HEMOGLOBIN (BEAKER) (test 30.6 pg 25.7-32.2 oijq=555) MEAN CORPUSCULAR HEMOGLOBIN CONC (BEAKER) (test 33.7 GM/DL 32.3-36.5 rkat=202) RED CELL DISTRIBUTION WIDTH (BEAKER) (test 15.5 % 11.6-14.4 lqto=722) PLATELET COUNT (BEAKER) (test ssfr=544) 277 K/CU MM 150-450 MEAN PLATELET VOLUME (BEAKER) (test uzzm=113) 9.7 fL 9.4-12.4 NUCLEATED RED BLOOD CELLS (BEAKER) (test 0 /100 WBC 0-0 hcvw=548) NEUTROPHILS RELATIVE PERCENT (BEAKER) (test 70 % eabu=751) LYMPHOCYTES RELATIVE PERCENT (BEAKER) (test 18 % wrjw=268) MONOCYTES RELATIVE PERCENT (BEAKER) (test 11 % johy=904) EOSINOPHILS RELATIVE PERCENT (BEAKER) (test 0 % fpwa=175) BASOPHILS RELATIVE PERCENT (BEAKER) (test 0 % xfml=450) NEUTROPHILS ABSOLUTE COUNT (BEAKER) (test 7.46 K/ L 1.78-5.38 wkzj=140) LYMPHOCYTES ABSOLUTE COUNT (BEAKER) (test 1.93 K/ L 1.32-3.57 twfn=039) MONOCYTES ABSOLUTE COUNT (BEAKER) (test 1.17 K/ L 0.30-0.82 abfv=523) EOSINOPHILS ABSOLUTE COUNT (BEAKER) (test 0.02 K/ L 0.04-0.54 esux=657) BASOPHILS ABSOLUTE COUNT (BEAKER) (test 0.03 K/ L 0.01-0.08 uhph=616) IMMATURE GRANULOCYTES-RELATIVE PERCENT (BEAKER) 0 % 0-1 (test xccy=0909) COMPREHENSIVE METABOLIC [id number] 14:02:00 Test Item Value Reference Range Comments TOTAL PROTEIN (BEAKER) 7.8 gm/dL 6.0-8.3 (test viou=168) ALBUMIN (BEAKER) (test 3.9 g/dL 3.5-5.0 vmoh=6102) ALKALINE PHOSPHATASE 62 U/L 40-150 (BEAKER) (test pxar=674) BILIRUBIN TOTAL (BEAKER) 0.3 mg/dL 0.2-1.2 (test hkgt=454) SODIUM (BEAKER) (test 139 meq/L 136-145 arnq=117) POTASSIUM (BEAKER) (test 4.2 meq/L 3.5-5.1 qwjg=480) CHLORIDE (BEAKER) (test 104 meq/L 98-107 olbt=939) CO2 (BEAKER) (test 26 meq/L 22-29 bigv=972) BLOOD UREA NITROGEN 9 mg/dL 7-21 (BEAKER) (test zlxp=682) CREATININE (BEAKER) (test 0.64 mg/dL 0.57-1.25 utye=947) GLUCOSE RANDOM (BEAKER) 78 mg/dL 70-105 (test sltu=738) CALCIUM (BEAKER) (test 9.5 mg/dL 8.4-10.2 eafy=374) AST (SGOT) (BEAKER) (test 18 U/L 5-34 igva=385) ALT (SGPT) (BEAKER) (test 8 U/L 6-55 quqq=464) EGFR (BEAKER) (test 141 mL/min/1.73 sq ESTIMATED GFR IS NOT nxup=3485) m ACCURATE CREATININE CLEARANCE IN PREDICTING GLOMERULAR FILTRATION RATE. ESTIMATED GFR IS NOT APPLICABLE FOR DIALYSIS PATIENTS. COMPREHENSIVE METABOLIC [id number] 06:08:00 Test Item Value Reference Range Comments TOTAL PROTEIN (BEAKER) 7.0 gm/dL 6.0-8.3 Specimen slightly (test xmos=910) hemolyzed ALBUMIN (BEAKER) (test 3.4 g/dL 3.5-5.0 Specimen slightly ukcy=0962) hemolyzed ALKALINE PHOSPHATASE 58 U/L 40-150 (BEAKER) (test rbyv=821) BILIRUBIN TOTAL (BEAKER) 0.4 mg/dL 0.2-1.2 Specimen slightly (test dpti=036) hemolyzed SODIUM (BEAKER) (test 139 meq/L 136-145 qfxd=658) POTASSIUM (BEAKER) (test 4.5 meq/L 3.5-5.1 Specimen slightly uimk=411) hemolyzed CHLORIDE (BEAKER) (test 103 meq/L 98-107 pwtz=074) CO2 (BEAKER) (test 27 meq/L 22-29 jkpq=756) BLOOD UREA NITROGEN 2 mg/dL 7-21 (BEAKER) (test mclf=253) CREATININE (BEAKER) (test 0.55 mg/dL 0.57-1.25 Specimen slightly vgnj=687) hemolyzed GLUCOSE RANDOM (BEAKER) 85 mg/dL 70-105 (test xttk=291) CALCIUM (BEAKER) (test 9.3 mg/dL 8.4-10.2 zrgg=606) AST (SGOT) (BEAKER) (test 18 U/L 5-34 Specimen slightly djum=400) hemolyzed ALT (SGPT) (BEAKER) (test 8 U/L 6-55 Specimen slightly grow=226) hemolyzed EGFR (BEAKER) (test 168 mL/min/1.73 sq ESTIMATED GFR IS NOT kutt=9849) m ACCURATE CREATININE CLEARANCE IN PREDICTING GLOMERULAR FILTRATION RATE. ESTIMATED GFR IS NOT APPLICABLE FOR DIALYSIS PATIENTS. CBC (HEMOGRAM ONLY)2017-05-17 05:20:00 Test Item Value Reference Range Comments WHITE BLOOD CELL COUNT (BEAKER) (test hfmh=593) 6.4 K/ L 3.5-10.5 RED BLOOD CELL COUNT (BEAKER) (test lxsd=728) 3.84 M/ L 4.63-6.08 HEMOGLOBIN (BEAKER) (test glyy=989) 11.5 GM/DL 13.7-17.5 HEMATOCRIT (BEAKER) (test hgps=455) 35.2 % 40.1-51.0 MEAN CORPUSCULAR VOLUME (BEAKER) (test qrjt=394) 91.7 fL 79.0-92.2 MEAN CORPUSCULAR HEMOGLOBIN (BEAKER) (test 29.9 pg 25.7-32.2 hrcl=227) MEAN CORPUSCULAR HEMOGLOBIN CONC (BEAKER) (test 32.7 GM/DL 32.3-36.5 jvfd=983) RED CELL DISTRIBUTION WIDTH (BEAKER) (test 14.1 % 11.6-14.4 yltb=326) PLATELET COUNT (BEAKER) (test qiya=192) 434 K/CU MM 150-450 MEAN PLATELET VOLUME (BEAKER) (test ygka=106) 9.4 fL 9.4-12.4 NUCLEATED RED BLOOD CELLS (BEAKER) (test 0 /100 WBC 0-0 akrn=172) HEPATIC FUNCTION [id number] 11:22:00 Test Item Value Reference Range Comments TOTAL PROTEIN (BEAKER) (test pvuw=185) 6.9 gm/dL 6.0-8.3 ALBUMIN (BEAKER) (test zfpc=7927) 3.4 g/dL 3.5-5.0 BILIRUBIN TOTAL (BEAKER) (test xnvz=242) 0.4 mg/dL 0.2-1.2 BILIRUBIN DIRECT (BEAKER) (test uphj=009) 0.2 mg/dL 0.1-0.5 ALKALINE PHOSPHATASE (BEAKER) (test mlby=518) 65 U/L 40-150 AST (SGOT) (BEAKER) (test ekgl=898) 14 U/L 5-34 ALT (SGPT) (BEAKER) (test aynt=398) 8 U/L 6-55 CBC W/PLT COUNT & AUTO [id number] 11:16:00 Test Item Value Reference Range Comments WHITE BLOOD CELL COUNT (BEAKER) (test sjwy=515) 7.0 K/ L 3.5-10.5 RED BLOOD CELL COUNT (BEAKER) (test xnnp=908) 3.90 M/ L 4.63-6.08 HEMOGLOBIN (BEAKER) (test tbbr=727) 11.9 GM/DL 13.7-17.5 HEMATOCRIT (BEAKER) (test ogwv=738) 35.7 % 40.1-51.0 MEAN CORPUSCULAR VOLUME (BEAKER) (test lzyn=859) 91.5 fL 79.0-92.2 MEAN CORPUSCULAR HEMOGLOBIN (BEAKER) (test 30.5 pg 25.7-32.2 yvsj=728) MEAN CORPUSCULAR HEMOGLOBIN CONC (BEAKER) (test 33.3 GM/DL 32.3-36.5 dshz=726) RED CELL DISTRIBUTION WIDTH (BEAKER) (test 14.0 % 11.6-14.4 tbjq=182) PLATELET COUNT (BEAKER) (test lmzk=872) 452 K/CU MM 150-450 MEAN PLATELET VOLUME (BEAKER) (test zwam=637) 9.0 fL 9.4-12.4 NUCLEATED RED BLOOD CELLS (BEAKER) (test 0 /100 WBC 0-0 fkln=422) NEUTROPHILS RELATIVE PERCENT (BEAKER) (test 59 % ltew=922) LYMPHOCYTES RELATIVE PERCENT (BEAKER) (test 21 % pszx=883) MONOCYTES RELATIVE PERCENT (BEAKER) (test 8 % nllq=180) EOSINOPHILS RELATIVE PERCENT (BEAKER) (test 10 % dsfa=176) BASOPHILS RELATIVE PERCENT (BEAKER) (test 1 % lgdg=608) NEUTROPHILS ABSOLUTE COUNT (BEAKER) (test 4.12 K/ L 1.78-5.38 psgh=896) LYMPHOCYTES ABSOLUTE COUNT (BEAKER) (test 1.45 K/ L 1.32-3.57 zdof=708) MONOCYTES ABSOLUTE COUNT (BEAKER) (test 0.58 K/ L 0.30-0.82 sskv=723) EOSINOPHILS ABSOLUTE COUNT (BEAKER) (test 0.70 K/ L 0.04-0.54 giel=089) BASOPHILS ABSOLUTE COUNT (BEAKER) (test 0.10 K/ L 0.01-0.08 pgdq=642) IMMATURE GRANULOCYTES-RELATIVE PERCENT (BEAKER) 0 % 0-1 (test ebss=9339) BASIC METABOLIC [id number] 06:43:00 Test Item Value Reference Range Comments SODIUM (BEAKER) (test 138 meq/L 136-145 trvm=295) POTASSIUM (BEAKER) (test 3.5 meq/L 3.5-5.1 cjsd=900) CHLORIDE (BEAKER) (test 100 meq/L 98-107 vude=759) CO2 (BEAKER) (test 27 meq/L 22-29 upvl=021) BLOOD UREA NITROGEN 2 mg/dL 7-21 (BEAKER) (test kiuq=285) CREATININE (BEAKER) (test 0.53 mg/dL 0.57-1.25 brcl=336) GLUCOSE RANDOM (BEAKER) 82 mg/dL 70-105 (test wsdc=447) CALCIUM (BEAKER) (test 9.0 mg/dL 8.4-10.2 yijk=822) EGFR (BEAKER) (test 175 mL/min/1.73 sq m ESTIMATED GFR IS NOT flec=1716) ACCURATE CREATININE CLEARANCE IN PREDICTING GLOMERULAR FILTRATION RATE. ESTIMATED GFR IS NOT APPLICABLE FOR DIALYSIS PATIENTS. BASIC METABOLIC [id number] 05:14:00 Test Item Value Reference Range Comments SODIUM (BEAKER) (test 132 meq/L 136-145 meww=575) POTASSIUM (BEAKER) (test 3.8 meq/L 3.5-5.1 nptw=878) CHLORIDE (BEAKER) (test 101 meq/L 98-107 ngcn=750) CO2 (BEAKER) (test 18 meq/L 22-29 jqjf=606) BLOOD UREA NITROGEN 4 mg/dL 7-21 (BEAKER) (test hgst=219) CREATININE (BEAKER) (test 0.52 mg/dL 0.57-1.25 vykr=323) GLUCOSE RANDOM (BEAKER) 58 mg/dL 70-105 (test lfpw=437) CALCIUM (BEAKER) (test 8.7 mg/dL 8.4-10.2 wgcj=262) EGFR (BEAKER) (test 179 mL/min/1.73 sq m ESTIMATED GFR IS NOT fomf=7668) ACCURATE CREATININE CLEARANCE IN PREDICTING GLOMERULAR FILTRATION RATE. ESTIMATED GFR IS NOT APPLICABLE FOR DIALYSIS PATIENTS. CBC (HEMOGRAM ONLY)2017-05-15 04:57:00 Test Item Value Reference Range Comments WHITE BLOOD CELL COUNT (BEAKER) (test euer=203) 13.4 K/ L 3.5-10.5 RED BLOOD CELL COUNT (BEAKER) (test bhpg=352) 3.81 M/ L 4.63-6.08 HEMOGLOBIN (BEAKER) (test flmp=280) 11.4 GM/DL 13.7-17.5 HEMATOCRIT (BEAKER) (test utmw=157) 35.1 % 40.1-51.0 MEAN CORPUSCULAR VOLUME (BEAKER) (test hgcq=840) 92.1 fL 79.0-92.2 MEAN CORPUSCULAR HEMOGLOBIN (BEAKER) (test 29.9 pg 25.7-32.2 gguq=491) MEAN CORPUSCULAR HEMOGLOBIN CONC (BEAKER) (test 32.5 GM/DL 32.3-36.5 ldcg=436) RED CELL DISTRIBUTION WIDTH (BEAKER) (test 14.3 % 11.6-14.4 mjjq=479) PLATELET COUNT (BEAKER) (test fjdj=898) 502 K/CU MM 150-450 MEAN PLATELET VOLUME (BEAKER) (test pqyb=032) 9.6 fL 9.4-12.4 NUCLEATED RED BLOOD CELLS (BEAKER) (test 0 /100 WBC 0-0 klgc=810) LIPID [id number] 05:00:00 Test Item Value Reference Range Comments TRIGLYCERIDES (BEAKER) (test xyav=188) 71 mg/dL CHOLESTEROL (BEAKER) (test dhlp=699) 108 mg/dL HDL CHOLESTEROL (BEAKER) (test yvmw=431) 22 mg/dL LDL CHOLESTEROL CALCULATED (BEAKER) (test 72 mg/dL doew=529) Triglyceride Reference Range: Low Risk <150 Borderline 150- 199 High Risk 200-499 Very High Risk >=500Cholesterol Reference Range: Low Risk <200 Borderline 200-239 High Risk > 240HDL Cholesterol Reference Range: Low Risk >=60 High Risk <40LDL Cholesterol Reference Range: Optimal <100 Near Optimal 100-129 Borderline 130-159 High 160-189 Very High >=190BASIC METABOLIC [id number] 05:00:00 Test Item Value Reference Range Comments SODIUM (BEAKER) (test 133 meq/L 136-145 zeuu=379) POTASSIUM (BEAKER) (test 4.1 meq/L 3.5-5.1 mdti=546) CHLORIDE (BEAKER) (test 105 meq/L 98-107 poyt=790) CO2 (BEAKER) (test 17 meq/L 22-29 iyws=811) BLOOD UREA NITROGEN 8 mg/dL 7-21 (BEAKER) (test segw=122) CREATININE (BEAKER) (test 0.51 mg/dL 0.57-1.25 ukdr=252) GLUCOSE RANDOM (BEAKER) 54 mg/dL 70-105 (test vqyh=296) CALCIUM (BEAKER) (test 8.4 mg/dL 8.4-10.2 fwtf=140) EGFR (BEAKER) (test 183 mL/min/1.73 sq m ESTIMATED GFR IS NOT cqvt=8403) ACCURATE CREATININE CLEARANCE IN PREDICTING GLOMERULAR FILTRATION RATE. ESTIMATED GFR IS NOT APPLICABLE FOR DIALYSIS PATIENTS. HEPATIC FUNCTION [id number] 05:00:00 Test Item Value Reference Range Comments TOTAL PROTEIN (BEAKER) (test enjr=661) 6.3 gm/dL 6.0-8.3 ALBUMIN (BEAKER) (test dgqi=3721) 3.2 g/dL 3.5-5.0 BILIRUBIN TOTAL (BEAKER) (test cyhk=090) 0.7 mg/dL 0.2-1.2 BILIRUBIN DIRECT (BEAKER) (test ybyf=812) 0.3 mg/dL 0.1-0.5 ALKALINE PHOSPHATASE (BEAKER) (test cexk=539) 62 U/L 40-150 AST (SGOT) (BEAKER) (test kgjt=877) 13 U/L 5-34 ALT (SGPT) (BEAKER) (test nvxz=507) 9 U/L 6-55 [id number] 05:00:00 Test Item Value Reference Range Comments LIPASE (BEAKER) (test ywdd=811) 1007 U/L 8-78 CBC (HEMOGRAM ONLY)2017-05-14 04:39:00 Test Item Value Reference Range Comments WHITE BLOOD CELL COUNT (BEAKER) (test xrdq=980) 16.6 K/ L 3.5-10.5 RED BLOOD CELL COUNT (BEAKER) (test keje=151) 3.98 M/ L 4.63-6.08 HEMOGLOBIN (BEAKER) (test zmwe=554) 12.0 GM/DL 13.7-17.5 HEMATOCRIT (BEAKER) (test czpl=053) 37.2 % 40.1-51.0 MEAN CORPUSCULAR VOLUME (BEAKER) (test ivcx=557) 93.5 fL 79.0-92.2 MEAN CORPUSCULAR HEMOGLOBIN (BEAKER) (test 30.2 pg 25.7-32.2 dmzi=874) MEAN CORPUSCULAR HEMOGLOBIN CONC (BEAKER) (test 32.3 GM/DL 32.3-36.5 kldx=760) RED CELL DISTRIBUTION WIDTH (BEAKER) (test 14.5 % 11.6-14.4 xbed=764) PLATELET COUNT (BEAKER) (test bmki=531) 527 K/CU MM 150-450 MEAN PLATELET VOLUME (BEAKER) (test wgtc=105) 9.5 fL 9.4-12.4 NUCLEATED RED BLOOD CELLS (BEAKER) (test 0 /100 WBC 0-0 tfwg=422) MR, ABDOMEN, [id number] 12:25:00FINAL REPORT MRI of the abdomen, MRCP. [...] MDReport Verified Date/Time: 03/13/2017 12:25:41 Reading Location: [facility] [id number] [facility] Reading Room Electronically signed by: KIKO VEE M.D. on 12:25 [facility] [id number] 05:05:00 Test Item Value Reference Range Comments SODIUM (BEAKER) (test 139 meq/L 136-145 xnuk=209) POTASSIUM (BEAKER) (test 3.7 meq/L 3.5-5.1 phye=449) CHLORIDE (BEAKER) (test 108 meq/L 98-107 fgpr=393) CO2 (BEAKER) (test 22 meq/L 22-29 kbed=294) BLOOD UREA NITROGEN 4 mg/dL 7-21 (BEAKER) (test twua=281) CREATININE (BEAKER) (test 0.58 mg/dL 0.57-1.25 prts=840) GLUCOSE RANDOM (BEAKER) 95 mg/dL 70-105 (test dary=357) CALCIUM (BEAKER) (test 8.5 mg/dL 8.4-10.2 oztb=836) EGFR (BEAKER) (test 158 mL/min/1.73 sq m ESTIMATED GFR IS NOT sprb=6392) ACCURATE CREATININE CLEARANCE IN PREDICTING GLOMERULAR FILTRATION RATE. ESTIMATED GFR IS NOT APPLICABLE FOR DIALYSIS PATIENTS. CBC W/PLT COUNT & AUTO [id number] 04:49:00 Test Item Value Reference Range Comments WHITE BLOOD CELL COUNT (BEAKER) (test kuqq=001) 6.3 K/ L 3.5-10.5 RED BLOOD CELL COUNT (BEAKER) (test kmia=384) 4.32 M/ L 4.63-6.08 HEMOGLOBIN (BEAKER) (test zxxy=638) 13.7 GM/DL 13.7-17.5 HEMATOCRIT (BEAKER) (test wqjb=017) 40.3 % 40.1-51.0 MEAN CORPUSCULAR VOLUME (BEAKER) (test ktnn=724) 93.3 fL 79.0-92.2 MEAN CORPUSCULAR HEMOGLOBIN (BEAKER) (test 31.7 pg 25.7-32.2 tocv=622) MEAN CORPUSCULAR HEMOGLOBIN CONC (BEAKER) (test 34.0 GM/DL 32.3-36.5 wicz=329) RED CELL DISTRIBUTION WIDTH (BEAKER) (test 11.9 % 11.6-14.4 zbjg=988) PLATELET COUNT (BEAKER) (test wjpv=690) 286 K/CU MM 150-450 MEAN PLATELET VOLUME (BEAKER) (test bure=986) 9.4 fL 9.4-12.4 NUCLEATED RED BLOOD CELLS (BEAKER) (test 0 /100 WBC 0-0 dtjb=515) NEUTROPHILS RELATIVE PERCENT (BEAKER) (test 51 % meab=277) LYMPHOCYTES RELATIVE PERCENT (BEAKER) (test 31 % qmbu=889) MONOCYTES RELATIVE PERCENT (BEAKER) (test 11 % uhha=563) EOSINOPHILS RELATIVE PERCENT (BEAKER) (test 6 % rtaa=144) BASOPHILS RELATIVE PERCENT (BEAKER) (test 1 % mtsd=066) NEUTROPHILS ABSOLUTE COUNT (BEAKER) (test 3.21 K/ L 1.78-5.38 vllt=833) LYMPHOCYTES ABSOLUTE COUNT (BEAKER) (test 1.91 K/ L 1.32-3.57 hnkf=311) MONOCYTES ABSOLUTE COUNT (BEAKER) (test 0.68 K/ L 0.30-0.82 egdp=623) EOSINOPHILS ABSOLUTE COUNT (BEAKER) (test 0.40 K/ L 0.04-0.54 fjvj=401) BASOPHILS ABSOLUTE COUNT (BEAKER) (test 0.04 K/ L 0.01-0.08 fnyj=301) IMMATURE GRANULOCYTES-RELATIVE PERCENT (BEAKER) 1 % 0-1 (test dbbo=1115) CBC W/PLT COUNT & AUTO [id number] 04:52:00 Test Item Value Reference Range Comments WHITE BLOOD CELL COUNT (BEAKER) (test qnwm=064) 6.2 K/ L 3.5-10.5 RED BLOOD CELL COUNT (BEAKER) (test mhxl=165) 4.31 M/ L 4.63-6.08 HEMOGLOBIN (BEAKER) (test npuj=599) 13.7 GM/DL 13.7-17.5 HEMATOCRIT (BEAKER) (test kipt=873) 41.1 % 40.1-51.0 MEAN CORPUSCULAR VOLUME (BEAKER) (test fjic=964) 95.4 fL 79.0-92.2 MEAN CORPUSCULAR HEMOGLOBIN (BEAKER) (test 31.8 pg 25.7-32.2 vlic=259) MEAN CORPUSCULAR HEMOGLOBIN CONC (BEAKER) (test 33.3 GM/DL 32.3-36.5 mzzg=135) RED CELL DISTRIBUTION WIDTH (BEAKER) (test 12.1 % 11.6-14.4 btrj=935) PLATELET COUNT (BEAKER) (test xilp=733) 295 K/CU MM 150-450 MEAN PLATELET VOLUME (BEAKER) (test afnh=826) 9.5 fL 9.4-12.4 NUCLEATED RED BLOOD CELLS (BEAKER) (test 0 /100 WBC 0-0 ptgq=357) NEUTROPHILS RELATIVE PERCENT (BEAKER) (test 51 % lqvo=163) LYMPHOCYTES RELATIVE PERCENT (BEAKER) (test 31 % lwhi=268) MONOCYTES RELATIVE PERCENT (BEAKER) (test 11 % tntp=290) EOSINOPHILS RELATIVE PERCENT (BEAKER) (test 7 % gwhi=111) BASOPHILS RELATIVE PERCENT (BEAKER) (test 1 % aehs=400) NEUTROPHILS ABSOLUTE COUNT (BEAKER) (test 3.17 K/ L 1.78-5.38 vtks=366) LYMPHOCYTES ABSOLUTE COUNT (BEAKER) (test 1.89 K/ L 1.32-3.57 mqxf=062) MONOCYTES ABSOLUTE COUNT (BEAKER) (test 0.65 K/ L 0.30-0.82 sjli=140) EOSINOPHILS ABSOLUTE COUNT (BEAKER) (test 0.41 K/ L 0.04-0.54 mnde=594) BASOPHILS ABSOLUTE COUNT (BEAKER) (test 0.05 K/ L 0.01-0.08 qolb=633) IMMATURE GRANULOCYTES-RELATIVE PERCENT (BEAKER) 1 % 0-1 (test zibz=2028) COMPREHENSIVE METABOLIC [id number] 11:20:00 Test Item Value Reference Range Comments TOTAL PROTEIN (BEAKER) 7.2 gm/dL 6.0-8.3 (test vadx=294) ALBUMIN (BEAKER) (test 3.7 g/dL 3.5-5.0 ggsh=5938) ALKALINE PHOSPHATASE 73 U/L 40-150 (BEAKER) (test ksnr=423) BILIRUBIN TOTAL (BEAKER) 0.6 mg/dL 0.2-1.2 (test uwdj=002) SODIUM (BEAKER) (test 135 meq/L 136-145 figv=791) POTASSIUM (BEAKER) (test 5.0 meq/L 3.5-5.1 llso=117) CHLORIDE (BEAKER) (test 109 meq/L 98-107 spzf=135) CO2 (BEAKER) (test 14 meq/L 22-29 udlp=658) BLOOD UREA NITROGEN 6 mg/dL 7-21 (BEAKER) (test yudf=970) CREATININE (BEAKER) (test 0.62 mg/dL 0.57-1.25 xysg=090) GLUCOSE RANDOM (BEAKER) 45 mg/dL 70-105 (test zuwt=498) CALCIUM (BEAKER) (test 8.6 mg/dL 8.4-10.2 tont=503) AST (SGOT) (BEAKER) (test 17 U/L 5-34 zwlo=186) ALT (SGPT) (BEAKER) (test 14 U/L 6-55 xgea=642) EGFR (BEAKER) (test 146 mL/min/1.73 sq ESTIMATED GFR IS NOT tgic=1972) m ACCURATE CREATININE CLEARANCE IN PREDICTING GLOMERULAR FILTRATION RATE. ESTIMATED GFR IS NOT APPLICABLE FOR DIALYSIS PATIENTS. CBC W/PLT COUNT & AUTO [id number] 09:54:00 Test Item Value Reference Range Comments WHITE BLOOD CELL COUNT (BEAKER) (test qxjx=325) 7.4 K/ L 3.5-10.5 RED BLOOD CELL COUNT (BEAKER) (test wwwy=325) 4.32 M/ L 4.63-6.08 HEMOGLOBIN (BEAKER) (test zvgb=734) 13.6 GM/DL 13.7-17.5 HEMATOCRIT (BEAKER) (test xuje=412) 41.8 % 40.1-51.0 MEAN CORPUSCULAR VOLUME (BEAKER) (test spwt=260) 96.8 fL 79.0-92.2 MEAN CORPUSCULAR HEMOGLOBIN (BEAKER) (test 31.5 pg 25.7-32.2 vpaz=753) MEAN CORPUSCULAR HEMOGLOBIN CONC (BEAKER) (test 32.5 GM/DL 32.3-36.5 xcok=919) RED CELL DISTRIBUTION WIDTH (BEAKER) (test 12.1 % 11.6-14.4 bnwv=410) PLATELET COUNT (BEAKER) (test vpet=708) 277 K/CU MM 150-450 MEAN PLATELET VOLUME (BEAKER) (test dqoi=924) 9.7 fL 9.4-12.4 NUCLEATED RED BLOOD CELLS (BEAKER) (test 0 /100 WBC 0-0 agaw=743) NEUTROPHILS RELATIVE PERCENT (BEAKER) (test 57 % kafn=630) LYMPHOCYTES RELATIVE PERCENT (BEAKER) (test 29 % tnzy=051) MONOCYTES RELATIVE PERCENT (BEAKER) (test 8 % lewt=865) EOSINOPHILS RELATIVE PERCENT (BEAKER) (test 5 % lzxg=105) BASOPHILS RELATIVE PERCENT (BEAKER) (test 1 % tkrb=856) NEUTROPHILS ABSOLUTE COUNT (BEAKER) (test 4.23 K/ L 1.78-5.38 yyre=882) LYMPHOCYTES ABSOLUTE COUNT (BEAKER) (test 2.10 K/ L 1.32-3.57 zior=659) MONOCYTES ABSOLUTE COUNT (BEAKER) (test 0.57 K/ L 0.30-0.82 yoqu=036) EOSINOPHILS ABSOLUTE COUNT (BEAKER) (test 0.38 K/ L 0.04-0.54 gpxs=550) BASOPHILS ABSOLUTE COUNT (BEAKER) (test 0.05 K/ L 0.01-0.08 wxnl=278) IMMATURE GRANULOCYTES-RELATIVE PERCENT (BEAKER) 1 % 0-1 (test hrpe=2985) (MANUAL DIFFERENTIAL)2017-03-11 09:54:00 Test Item Value Reference Range Comments TOTAL COUNTED (BEAKER) (test joha=7805) WBC MORPHOLOGY (BEAKER) (test pysw=577) Normal PLT MORPHOLOGY (BEAKER) (test qjkg=586) Normal RBC MORPHOLOGY (BEAKER) (test qslh=295) Normal CBC W/PLT COUNT & AUTO [id number] 09:09:00 Test Item Value Reference Range Comments WHITE BLOOD CELL COUNT (BEAKER) (test klrv=735) 8.9 K/ L 3.5-10.5 RED BLOOD CELL COUNT (BEAKER) (test bvsj=291) 4.25 M/ L 4.63-6.08 HEMOGLOBIN (BEAKER) (test xdgu=225) 13.6 GM/DL 13.7-17.5 HEMATOCRIT (BEAKER) (test oyno=853) 40.7 % 40.1-51.0 MEAN CORPUSCULAR VOLUME (BEAKER) (test osev=601) 95.8 fL 79.0-92.2 MEAN CORPUSCULAR HEMOGLOBIN (BEAKER) (test 32.0 pg 25.7-32.2 qols=436) MEAN CORPUSCULAR HEMOGLOBIN CONC (BEAKER) (test 33.4 GM/DL 32.3-36.5 kvjl=618) RED CELL DISTRIBUTION WIDTH (BEAKER) (test 12.1 % 11.6-14.4 jakg=387) PLATELET COUNT (BEAKER) (test pfdj=455) 274 K/CU MM 150-450 MEAN PLATELET VOLUME (BEAKER) (test nufm=959) 9.8 fL 9.4-12.4 NUCLEATED RED BLOOD CELLS (BEAKER) (test 0 /100 WBC 0-0 wxda=916) NEUTROPHILS RELATIVE PERCENT (BEAKER) (test 62 % ohie=540) LYMPHOCYTES RELATIVE PERCENT (BEAKER) (test 24 % zwvv=671) MONOCYTES RELATIVE PERCENT (BEAKER) (test 7 % tekj=018) EOSINOPHILS RELATIVE PERCENT (BEAKER) (test 5 % pxoe=349) BASOPHILS RELATIVE PERCENT (BEAKER) (test 1 % rfnx=919) NEUTROPHILS ABSOLUTE COUNT (BEAKER) (test 5.55 K/ L 1.78-5.38 ccbd=472) LYMPHOCYTES ABSOLUTE COUNT (BEAKER) (test 2.14 K/ L 1.32-3.57 vqyb=283) MONOCYTES ABSOLUTE COUNT (BEAKER) (test 0.64 K/ L 0.30-0.82 afpk=011) EOSINOPHILS ABSOLUTE COUNT (BEAKER) (test 0.48 K/ L 0.04-0.54 snse=253) BASOPHILS ABSOLUTE COUNT (BEAKER) (test 0.07 K/ L 0.01-0.08 rjmv=973) IMMATURE GRANULOCYTES-RELATIVE PERCENT (BEAKER) 0 % 0-1 (test tshu=3749) (MANUAL DIFFERENTIAL)2017-03-10 09:09:00 Test Item Value Reference Range Comments TOTAL COUNTED (BEAKER) (test ueie=4661) WBC MORPHOLOGY (BEAKER) (test nlqc=094) Normal PLT MORPHOLOGY (BEAKER) (test pmyx=043) Normal RBC MORPHOLOGY (BEAKER) (test anni=893) Normal COMPREHENSIVE METABOLIC [id number] 07:30:00 Test Item Value Reference Range Comments TOTAL PROTEIN (BEAKER) 6.8 gm/dL 6.0-8.3 (test slkv=605) ALBUMIN (BEAKER) (test 3.6 g/dL 3.5-5.0 fhkc=5091) ALKALINE PHOSPHATASE 77 U/L 40-150 (BEAKER) (test dhjj=007) BILIRUBIN TOTAL (BEAKER) 0.6 mg/dL 0.2-1.2 (test pupo=221) SODIUM (BEAKER) (test 136 meq/L 136-145 xofi=303) POTASSIUM (BEAKER) (test 4.3 meq/L 3.5-5.1 povw=085) CHLORIDE (BEAKER) (test 105 meq/L 98-107 wsrd=926) CO2 (BEAKER) (test 19 meq/L 22-29 mvki=832) BLOOD UREA NITROGEN 6 mg/dL 7-21 (BEAKER) (test agfl=299) CREATININE (BEAKER) (test 0.57 mg/dL 0.57-1.25 xnob=537) GLUCOSE RANDOM (BEAKER) 52 mg/dL 70-105 (test ljrz=414) CALCIUM (BEAKER) (test 8.2 mg/dL 8.4-10.2 tuwu=912) AST (SGOT) (BEAKER) (test 17 U/L 5-34 fnhn=301) ALT (SGPT) (BEAKER) (test 14 U/L 6-55 aczz=074) EGFR (BEAKER) (test 161 mL/min/1.73 sq ESTIMATED GFR IS NOT hdto=8481) m ACCURATE CREATININE CLEARANCE IN PREDICTING GLOMERULAR FILTRATION RATE. ESTIMATED GFR IS NOT APPLICABLE FOR DIALYSIS PATIENTS. CBC W/PLT COUNT & AUTO [id number] 10:49:00 Test Item Value Reference Range Comments WHITE BLOOD CELL COUNT (BEAKER) (test fgjo=267) 6.9 K/ L 3.5-10.5 RED BLOOD CELL COUNT (BEAKER) (test hncj=676) 3.83 M/ L 4.63-6.08 HEMOGLOBIN (BEAKER) (test tkbd=227) 12.5 GM/DL 13.7-17.5 HEMATOCRIT (BEAKER) (test sdbt=101) 36.7 % 40.1-51.0 MEAN CORPUSCULAR VOLUME (BEAKER) (test xreq=450) 95.8 fL 79.0-92.2 MEAN CORPUSCULAR HEMOGLOBIN (BEAKER) (test 32.6 pg 25.7-32.2 lkpf=158) MEAN CORPUSCULAR HEMOGLOBIN CONC (BEAKER) (test 34.1 GM/DL 32.3-36.5 xvpe=785) RED CELL DISTRIBUTION WIDTH (BEAKER) (test 12.4 % 11.6-14.4 uzdi=980) PLATELET COUNT (BEAKER) (test wqgq=255) 267 K/CU MM 150-450 MEAN PLATELET VOLUME (BEAKER) (test wdfq=119) 9.7 fL 9.4-12.4 NUCLEATED RED BLOOD CELLS (BEAKER) (test 0 /100 WBC 0-0 nqxx=574) NEUTROPHILS RELATIVE PERCENT (BEAKER) (test 60 % beti=993) LYMPHOCYTES RELATIVE PERCENT (BEAKER) (test 26 % yuex=608) MONOCYTES RELATIVE PERCENT (BEAKER) (test 7 % reql=188) EOSINOPHILS RELATIVE PERCENT (BEAKER) (test 6 % rnnn=338) BASOPHILS RELATIVE PERCENT (BEAKER) (test 1 % xsgm=409) NEUTROPHILS ABSOLUTE COUNT (BEAKER) (test 4.15 K/ L 1.78-5.38 sase=212) LYMPHOCYTES ABSOLUTE COUNT (BEAKER) (test 1.82 K/ L 1.32-3.57 begc=097) MONOCYTES ABSOLUTE COUNT (BEAKER) (test 0.47 K/ L 0.30-0.82 ngdd=506) EOSINOPHILS ABSOLUTE COUNT (BEAKER) (test 0.38 K/ L 0.04-0.54 ryjp=521) BASOPHILS ABSOLUTE COUNT (BEAKER) (test 0.04 K/ L 0.01-0.08 jjlz=250) COMPREHENSIVE METABOLIC [id number] 10:45:00 Test Item Value Reference Range Comments TOTAL PROTEIN (BEAKER) 6.2 gm/dL 6.0-8.3 (test tzta=896) ALBUMIN (BEAKER) (test 3.3 g/dL 3.5-5.0 pyqa=1331) ALKALINE PHOSPHATASE 70 U/L 40-150 (BEAKER) (test wlwx=828) BILIRUBIN TOTAL (BEAKER) 0.4 mg/dL 0.2-1.2 (test qexg=096) SODIUM (BEAKER) (test 138 meq/L 136-145 doqj=585) POTASSIUM (BEAKER) (test 3.5 meq/L 3.5-5.1 tqii=910) CHLORIDE (BEAKER) (test 109 meq/L 98-107 xzep=290) CO2 (BEAKER) (test 23 meq/L 22-29 brjm=875) BLOOD UREA NITROGEN 5 mg/dL 7-21 (BEAKER) (test umqj=948) CREATININE (BEAKER) (test 0.54 mg/dL 0.57-1.25 rjld=990) GLUCOSE RANDOM (BEAKER) 77 mg/dL 70-105 (test fbcj=039) CALCIUM (BEAKER) (test 7.6 mg/dL 8.4-10.2 sxje=207) AST (SGOT) (BEAKER) (test 18 U/L 5-34 nlsu=788) ALT (SGPT) (BEAKER) (test 15 U/L 6-55 txpm=716) EGFR (BEAKER) (test 171 mL/min/1.73 sq ESTIMATED GFR IS NOT pkra=8574) m ACCURATE CREATININE CLEARANCE IN PREDICTING GLOMERULAR FILTRATION RATE. ESTIMATED GFR IS NOT APPLICABLE FOR DIALYSIS PATIENTS. [id number] 10:29:00 Test Item Value Reference Range Comments TRIGLYCERIDES (BEAKER) (test ilww=874) 58 mg/dL TRIGLYCERIDE REFERENCE RANGELow Risk <150Borderline Risk 150-199High Risk 200-499Very High Risk>=[id number] 10:29:00 Test Item Value Reference Range Comments MAGNESIUM (BEAKER) (test owov=338) 1.4 mg/dL 1.6-2.6 [id number] 10:29:00 Test Item Value Reference Range Comments LIPASE (BEAKER) (test eaqe=097) 536 U/L 8-78 PROTHROMBIN [id number] 10:22:00 Test Item Value Reference Range Comments PROTIME (BEAKER) (test cmcf=683) 14.3 seconds 11.7-14.7 INR (BEAKER) (test aaaj=812) 1.1 <=5.9 RECOMMENDED COUMADIN/WARFARIN INR THERAPY RANGESSTANDARD DOSE: 2.0 - 3.0 Includes: PROPHYLAXIS forvenous thrombosis, systemic embolization; TREATMENT for venous thrombosis and/or pulmonary embolus.HIGH RISK: Target INR is 2.5-3.5 for patients with mechanical heart valves.
--- OUTSIDE RECORDS SUMMARY | 2017-12-06 17:09 | XMS REPORT ---
[...] End Status Dosage System Date Date Apixaban [facility] [address]-03 2.5 MG Orally Active not defined Tramadol HCl [facility] 84163011742 50 MG Orally Active 1 tablet every 6 hrs as needed Results No Known Results Summary Purpose eClinicalWorks Submission
--- NOTE | 2017-12-06 18:08 | EDPHYS ---
Physician Documentation [facility] Name: Ankit Rosales Age: 37 yrs Sex: Male : 1980 Arrival Date: 12/06/2017 Time: 17:05 Bed 19 Private MD: ED Physician Shadi Duarte HPI: 12/06 17:20 This 37 yrs old Male presents to ER via Ambulatory with complaints of R Foot cp Redness/Swelling. 17:20 The patient presents with pain, swelling, tenderness, erythema. cp 17:20 The complaints affect the right foot and left foot. Onset: The symptoms/episode cp began/occurred 2 week(s) ago. Associated signs and symptoms: Pertinent positives: swelling, warmth, erythema, Pertinent negatives: calf tenderness, fever, numbness. Severity of symptoms: in the emergency department the symptoms are unchanged, despite home interventions, has been using OTC antifungal cream. Historical: - Allergies: 17:21 NKDA; iw - PMHx: 17:21 Cirrhosis; GALLSTONES; left leg DVT; Pancreatitis; iw - PSHx: 17:21 pancreas stent/coil; iw - Immunization history:: Adult Immunizations not up to date. - Social history:: Smoking status: Patient uses tobacco products, smokes one pack cigarettes per day. - Ebola Screening: : Patient negative for fever greater than or equal to 101.5 degrees Fahrenheit, and additional compatible Ebola Virus Disease symptoms Patient denies exposure to infectious person Patient denies travel to an Ebola-affected area in the 21 days before illness onset No symptoms or risks identified at this time. ROS: 17:25 Constitutional: Negative for chills, fever, poor PO intake. cp 17:25 Eyes: Negative for injury, pain, redness, and discharge. cp 17:25 Cardiovascular: Negative for chest pain. 17:25 Respiratory: Negative for cough, wheezing. 17:25 Abdomen/GI: Negative for abdominal pain. 17:25 Skin: Positive for cellulitis, rash, of the right foot and left foot. 17:25 All other systems are negative. Exam: 17:30 Constitutional: The patient appears in no acute distress, alert, awake, non-toxic, well cp developed, well nourished, smells of alcohol. 17:30 Head/Face: Normocephalic, atraumatic. cp 17:30 Eyes: Periorbital structures: appear normal, Conjunctiva: normal, no exudate, no injection, Lids and lashes: appear normal, bilaterally. 17:30 ENT: External ear(s): are unremarkable, Nose: is normal, Mouth: is normal. 17:30 Chest/axilla: Inspection: normal. 17:30 Cardiovascular: Rate: normal, Rhythm: regular. 17:30 Respiratory: the patient does not display signs of respiratory distress, Respirations: normal, no use of accessory muscles, no retractions, no splinting, no tachypnea. 17:30 Skin: cellulitis, that is moderate, well demarcated, on the right foot and left foot. Vital Signs: 17:20 BP 135 / 92; Pulse 83; Resp 16; Temp 98.2; Pulse Ox 98% on R/A; Weight 58.97 kg; Height iw 5 ft. 5 in. (165.10 cm); Pain 6/10; 17:20 Body Mass Index 21.63 (58.97 kg, 165.10 cm) iw MDM: 17:11 Patient medically screened. cp 17:30 Differential diagnosis: cellulitis, tinea. cp 18:05 Data reviewed: vital signs, nurses notes. cp 18:05 Counseling: I had a detailed discussion with the patient and/or guardian regarding: the cp historical points, exam findings, and any diagnostic results supporting the discharge/admit diagnosis, the need for outpatient follow up, a family practitioner, to return to the emergency department if symptoms worsen or persist or if there are any questions or concerns that arise at home. Administered Medications: No medications were administered Disposition: 12/07 16:42 Co-signature as Attending Physician, Shadi Duarte MD. rn Disposition: 12/06/17 18:07 Discharged to Home. Impression: Cellulitis of right lower limb - Foot, Cellulitis of left lower limb - Foot. - Condition is Stable. - Discharge Instructions: Cellulitis, Adult. - Prescriptions for Clotrimazole 1 % Topical Cream - Apply to affected area 1 application by TOPICAL route every 12 hours for 10 days; 30 gram. Doxycycline Hyclate 100 mg Oral Tablet - take 1 tablet by ORAL route every 12 hours; 20 tablet. Bactrim DS 800- 160 mg Oral Tablet - take 1 tablet by ORAL route every 12 hours for 10 days; 20 tablet. - Work release form, Medication Reconciliation Form, Thank You Letter, Antibiotic Education, Prescription Opioid Use form. - Follow up: Private Physician; When: 1 week; Reason: Recheck today's complaints. - Problem is new. - Symptoms are unchanged. Signatures: Marina Nguyễn RN RN iw Nieto, Roman, MD MD rn Page, Corey, PA PA cp Corrections: (The following items were deleted from the chart) 12/06 18:26 18:07 12/06/2017 18:07 Discharged to Home. Impression: Cellulitis of right lower limb - iw Foot; Cellulitis of left lower limb - Foot. Condition is Stable. Forms are Medication Reconciliation Form, Thank You Letter, Antibiotic Education, Prescription Opioid Use. Follow up: Private Physician; When: 1 week; Reason: Recheck today's complaints. Problem is new. Symptoms are unchanged. cp
--- NOTE | 2017-12-06 18:08 | ER ---
Nurse's Notes [facility] Name: Ankit Rosales Age: 37 yrs Sex: Male : 1980 Arrival Date: 12/06/2017 Time: 17:05 Bed 19 Private MD: Diagnosis: Cellulitis of right lower limb-Foot;Cellulitis of left lower limb-Foot Presentation: 12/06 17:18 Presenting complaint: Patient states: has had redness and swelling, itchy rash to marnie iw feet X 2 weeks, got better for a while then got worse again because his feet have marizol moist. Care prior to arrival: None. 17:18 Method Of Arrival: Ambulatory iw 17:20 Transition of care: patient was not received from another setting of care. Onset of iw symptoms was November 23, 2017. Risk Assessment: Do you want to hurt yourself or someone else? Patient reports no desire to harm self or others. Initial Sepsis Screen: Does the patient meet any 2 criteria? No. Patient's initial sepsis screen is negative. Does the patient have a suspected source of infection? No. Patient's initial sepsis screen is negative. 17:20 Acuity: KRAIG 4 iw Triage Assessment: 18:24 General: Appears in no apparent distress. Behavior is cooperative. iw Historical: - Allergies: 17:21 NKDA; iw - PMHx: 17:21 Cirrhosis; GALLSTONES; left leg DVT; Pancreatitis; iw - PSHx: 17:21 pancreas stent/coil; iw - Immunization history:: Adult Immunizations not up to date. - Social history:: Smoking status: Patient uses tobacco products, smokes one pack cigarettes per day. - Ebola Screening: : Patient negative for fever greater than or equal to 101.5 degrees Fahrenheit, and additional compatible Ebola Virus Disease symptoms Patient denies exposure to infectious person Patient denies travel to an Ebola-affected area in the 21 days before illness onset No symptoms or risks identified at this time. Screenin:51 Abuse screen: Denies threats or abuse. Nutritional screening: No deficits noted. em Tuberculosis screening: No symptoms or risk factors identified. Fall Risk None identified. Assessment: 18:00 General: Appears in no apparent distress. comfortable, Behavior is calm, cooperative. iw Pain: Complains of pain in right foot and left foot. Neuro: Level of Consciousness is awake, alert, obeys commands, Oriented to person, place, time, situation. Cardiovascular: Patient's skin is warm and dry. Respiratory: Respiratory effort is even, unlabored, Respiratory pattern is regular, symmetrical. Derm: Rash noted that is red, vesicular, on right foot and left foot. 18:23 Reassessment: Patient appears in no apparent distress at this time. Patient and/or iw family updated on plan of care and expected duration. Pain level reassessed. Patient is alert, oriented x 3, equal unlabored respirations, skin warm/dry/pink. Vital Signs: 17:20 BP 135 / 92; Pulse 83; Resp 16; Temp 98.2; Pulse Ox 98% on R/A; Weight 58.97 kg; Height iw 5 ft. 5 in. (165.10 cm); Pain 6/10; 17:20 Body Mass Index 21.63 (58.97 kg, 165.10 cm) iw ED Course: 17:05 Patient arrived in ED. as 17:11 Alexandru Mckeon PA is PHCP. cp 17:11 Shadi Duarte MD is Attending Physician. cp 17:20 Triage completed. iw 17:20 Arm band placed on. iw 17:38 Julian Bai LVN is Primary Nurse. em 17:51 Patient has correct armband on for positive identification. Bed in low position. Call em light in reach. Side rails up X2. 17:51 No provider procedures requiring assistance completed. em 18:26 Patient did not have IV access during this emergency room visit. iw Administered Medications: No medications were administered Outcome: 18:07 Discharge ordered by MD. cp 18:23 Discharged to home ambulatory, with family. iw 18:23 Condition: good 18:23 Discharge instructions given to patient, family, Instructed on discharge instructions, follow up and referral plans. medication usage, Demonstrated understanding of instructions, follow-up care, medications, Prescriptions given X 2. 18:26 Patient left the ED. iw Signatures: Julian Bai LVN LVN em Cecile Rojas Irene, MIRYAM RN iw Alexandru Mckeon PA PA cp
[2017-12-06 18:32] VITALS: BP 135/92; TEMP 98.2; O2SAT 98
== END 2017-12-06 18:26 | disposition home or self-care (01) ==
LOC: ER 17:04
DX: L03.116 Cellulitis of left lower limb (principal)
CPT/HCPCS: 99282

== ENCOUNTER 2017-12-18 06:48 | Emergency (ER) | payer SELFPAY ==
--- OUTSIDE RECORDS SUMMARY | 2017-12-18 06:50 | XMS REPORT | Clinical Summary ---
:1980 Author Organization [facility] Address [address] [place] [address] Phone Care Team Providers Name Role Phone [...] Date Type Specialty Care Team Description 09/14/2017 [facility] General Internal Zaida Martinez MD Alcohol abuse - Encounter Medicine Yahaira, (Primary 09/19/2017 Dario Dx);Cystic mass of TavaresMD pancreas;Pancreati Vanda Norton MD pseudocyst/cyst;He Naty Cruz, morrhagic Julissa Moseley MD pancreatitis 09/08/2017 Procedure Pass Gastroenterology 09/08/2017 Surgery Gastroenterology Bessy Hernandez UPPER ENDOSCOPY MD Fredi 09/07/2017 Anesthesia Event Gastroenterology Shikha Motley MD 09/01/2017 Orders Only General Internal Medicine 08/31/2017 [facility] Talisha Abad Alcohol - Encounter MD Adriana abuse;Cystic mass 09/09/2017 [place], of [place]-Dannie pancreas;History MD Nayely of DVT (deep vein Michael, Larry thrombosis);Kim Bishop MD l-induced acute Farrukh Ryan MD pancreatitis Mackenzie Riveraa without infection MD Bradley or necrosis;Smoker;Po rtal vein thrombosis 05/21/2017 Procedure Pass Gastroenterology 05/19/2017 Anesthesia Event Gastroenterology Dorota Cortes MD 05/13/2017 [facility] Internal Radha, Ulysses, Alcohol-induced - Encounter Medicine acute 05/20/2017 Rafaela Samson pancreatitisMD unspecified Diomedes Alvarado complication MD Lul status;Alcohol abuse;Cystic mass of pancreas;Smoker;Th rombocytosis (HCC);Alcohol-janiya segundo acute pancreatitis without infection or necrosis;Smoking 03/13/2017 Procedure Pass Gastroenterology 03/11/2017 Procedure Pass Gastroenterology 03/10/2017 Anesthesia Event Gastroenterology Юлия Crump MD 03/09/2017 [facility] Internal [facility] Alcohol - Encounter Medicine MD Araceli abuse;Cystic mass 03/14/2017 Ulysses Garcia of MD pancreas;Hypokalem Yaneth Napier ia;Alcohol-induced MD acute pancreatitis, unspecified complication status;Portal vein thrombosis after 12/17/2016 Family History Medical History Relation Name Comments [...] 09/08/2017 5:00 PM Pancreatic pseudocyst CDT after 12/17/2016 Results Calcium, Ionized (09/19/2017 6:02 AM)Only the most recent of3 resultswithin the time period is included. Component Value Ref Range Calcium, Ion 1.11 (L) 1.12 - 1.27 mmol/L pH, Blood 7.40 Specimen Performing Laboratory Blood - Line, Venous [address] [address] Phosphorus (09/19/2017 6:02 AM)Only the most recent of10 resultswithin the time period is included. Component Value Ref Range Phosphorus 3.0 2.3 - 4.7 mg/dL Specimen Performing Laboratory Blood - Line, Venous [address] [address] Magnesium (09/19/2017 6:02 AM)Only the most recent of11 resultswithin the time period is included. Component Value Ref Range Magnesium 2.0 1.6 - 2.6 mg/dL Specimen Performing Laboratory Blood - Line, Venous [address] [address] Basic Metabolic Panel (09/19/2017 6:02 AM)Only the [...] Specimen Performing Laboratory Blood - Line, Venous [address] [address] CBC with platelet count + automated diff [...] Performing Laboratory Blood - Line, Venous [facility] [address] [address] CBC with platelet count + automated diff (09/17/2017 3:54 AM)Only the most recent of17 resultswithin the time period is included. Specimen Performing Laboratory Blood Narrative The following orders were created for panel order CBC with platelet count + automated diff. Procedure Abnormality Status --------- ------ CBC with platelet count ...[[id number]]AbnormalFinal result Please view results for these tests on the individual orders. 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 Modality: Ultrasound and fluoroscopy. Sedation: Moderate sedation was administered. 2.5 mg of Versed and 125 mcg of fentanyl IV was used for moderate sedation monitored under my direction. Total intra-service time of sedation [id number]. The patient's vital signs were monitored throughout the procedure and recorded in the patient's medical record by the nurse. Anesthesia:Two percent Lidocaine without epinephrine. Approach:Right common femoral artery. Estimated blood loss:< 5 cc. Specimen: None. tensioning machine operator: Michael Ortega MD. Military Police Officer: None.. Fluoroscopy Time: 31.7 min. Reference Air [...] over 0.035 Bentson wire for a 5 Latvian by 10 cm vascular sheath. A 5 Latvian Sutton B catheter was used to select the celiac trunk and SMA for multiple DSA runs. The Sutton catheter was then remanipulated into the celiac trunk. Next, using a 2.4 Latvian microcatheter and 0.016 inch microwire, the gastroduodenal artery was cannulated. Subsequently, the catheter was manipulated into the feeding branch supplying the abnormal area of hyperemia/vessel irregularity. From this location, embolization was performed using Interlock microcoils. The microcatheter was retracted into the GDA proximally and postdilatation DSA was performed. Next, the Sutton base catheter was manipulated into the SMA. Using a 2. Latvian directional microcatheter and 0.014 inch microwire, the [...] MD Report Verified Date/Time:09/20/2017 16:25:06 Reading Location: [place] [address] Angio Body Reading Room Procedure Note Interface, [...] blood loss: < 5 cc. Specimen: None. tensioning machine operator: Michael Ortega MD. Military Police Officer: None.. Fluoroscopy Time: 31.7 min. Reference Air [...] over 0.035 Bentson wire for a 5 Latvian by 10 cm vascular sheath. A 5 Latvian Sutton B catheter was used to select the celiac trunk and SMA for multiple DSA runs. The Sutton catheter was then remanipulated into the celiac trunk. Next, using a 2.4 Latvian microcatheter and 0.016 inch microwire, the gastroduodenal artery was cannulated. Subsequently, the catheter was manipulated into the feeding branch supplying the abnormal area of hyperemia/vessel irregularity. From this location, embolization was performed using Interlock microcoils. The microcatheter was retracted into the GDA proximally and postdilatation DSA was performed. Next, the Sutton base catheter was manipulated into the SMA. Using a 2. Latvian directional microcatheter and 0.014 inch microwire, the [...] Report Verified Date/Time: 09/20/2017 16:25:06 Reading Location: [place] [address] Angio Body Reading Room C-Reactive Protein (09/16/2017 12:32 PM)Only the most recent of2 resultswithin the time period is included. Component Value Ref Range CRP 0.97 (H) 0.00 - 0.50 mg/dL Specimen Performing Laboratory Blood - Central Venous Line [address] [address] PT/aPTT (09/16/2017 10:54 AM) Component Value Ref Range Protime 16.2 (H) 11.7 - 14.7 seconds INR 1.3 <=5.9 PTT 30.2 22.5 - 36.0 seconds Specimen Performing Laboratory Blood - Central Venous Line [address] [address] Narrative RECOMMENDED COUMADIN/WARFARIN INR THERAPY RANGES STANDARD [...] mg/dL Specimen Performing Laboratory Blood - Line, [address] [address] Narrative TRIGLYCERIDE REFERENCE RANGE Low Risk<150 Borderline Risk 150-199 High [id number] Very High Risk >=500 Lipase (09/16/2017 4:20 AM)Only the most recent of6 resultswithin the time period is included. Component Value Ref Range Lipase 114 (H) 8 - 78 U/L Specimen Performing Laboratory Blood - Line, [address] [address] Hepatic function panel (09/16/2017 4:20 AM)Only the [...] Specimen Performing Laboratory Blood - Line, Venous [address] [address] XR chest 1 view portable / bedside [...] MD Report Verified Date/Time:09/15/2017 19:53:01 Reading Location: [address] Reading Room Procedure Note Interface, External [...] Report Verified Date/Time: 09/15/2017 19:53:01 Reading Location: [address] Reading Room PHERAL VASCULAR REPORT - SCAN (09/15/2017 5:20 PM)Venous doppler legs bilateral (09/15/2017 2:49 PM) Component Value Ref Range Ejection Fraction Specimen Performing Laboratory [facility] ECHO HEARTLAB MKCKESSON CPACS Impressions Right Impression [...] Patient NameANKIT ROSALES Date of Study09/15/2017 Visit [id number] Male of Birth1980 Number Referring Julissa AlfonsoNancy, Room [id number] Physician Vocal Music Teacher David Chan. Interpreting Prema Gabriel, CANDELARIO, Buddy, [...] of Study 09/15/2017 Age 37 Visit Number [id number] Gender Male Date of 1980 Number Referring Julissa Arguelles, Room Number 2161 Physician Vocal Music Teacher David Chan. Interpreting Prema Gabriel T, [facility] Physician , RPVI Procedure Type of [...] Specimen Performing Laboratory Stool [facility] [address] [address] Narrative Performing Lab [facility] [address] [address] Enrique Holliday MD, PhD, GIDEON Peripheral Blood Smear - Path Review (09/14/2017 4:37 AM) Component Value Ref Range Pathologist Review Thrombocytosis. No circulating blasts or increased schistocytes. Clinical follow up recommended. Pathologist: Enoch Saba M.D.(electronic signature) Specimen Performing Laboratory [address] [address] Vitamin B12 and Folate (09/14/2017 4:37 AM) Component Value Ref Range Vitamin B12 527 213 - 816 pg/mL Folate 12.3 >=7.0 ng/mL Specimen Performing Laboratory Blood [address] [address] RHYTHM STRIP - SCAN (09/10/2017 10:40 AM)aPTT (09/09/2017 9:37 AM)Only the most recent of9 resultswithin the time period is included. Component Value Ref Range PTT 44.5 (H) 22.5 - 36.0 seconds Specimen Performing Laboratory Blood [address] [address] REPORT OF PROCEDURE - ENDOSCOPY URL (09/08/2017 5:47 PM)Fine Needle Aspirate ( 09/08/2017 5:43 PM) Component Value Ref Range Cytology See Separate Report Specimen Performing Laboratory Fine Needle Aspirate - [address] [address] Fine Needle Aspirate by Clinician (09/08/2017 5:43 PM) Component Value Ref Range Case Report Medical Cytology Report Case: [id number] Authorizing Provider:Bessy Hernandez MDCollected: 09/08/2017 1743 Ordering Location: [address] Received: 09/08/2017 1814 Service Pathologist: Mir Anthony MD Specimen:Pancreas DIAGNOSIS PANCREAS HEAD CYSTIC LESION FNA BY CLINICIAN (CYTOSPINS AND CELL BLOCK OF ASPIRATE): - NO MALIGNANT CELLS IDENTIFIED - The mucin stain shows focal weak staining Signing Pathologist Direct Phone Line: [phone] COMMENT The cell block shows non-inflammed pancreatic acinar tissue. CPT Code(s) 08358, 77574, 05090 CLINICAL DATA (4.9 X 4.8 cm) Cystic lesion in the pancreatic head SPECIMEN SOURCE PANCREAS HEAD CYSTIC LESION FNA GROSS DESCRIPTION 25 mls in cytorich red; 4 cytospins, 1 mucin stain, cell block Collected: [id number] Received: 094373 Technical component was performed at [facility], Department of Pathology, [address] [place] [address], Professional component was performed [facility], at Department of Pathology, [address] [place] [address], Specimen Performing Laboratory Fine Needle Aspirate - [address] [address] [address] abd/pelvis - pancreas evaluation (09/04/2017 12:20 [...] MD Report Verified Date/Time:09/04/2017 00:22:52 Reading Location: [address] Reading Room Procedure Note Interface, External [...] Report Verified Date/Time: 09/04/2017 00:22:52 Reading Location: [address] Reading Room -Glucose meter (09/02/2017 7:29 AM)Only the most recent of2 resultswithin the time period is included. Component Value Ref Range POC-Glucose Meter 140 (H)Comment: TESTED AT [address] 70 - 110 mg/[place] [address] Specimen Performing Laboratory Blood [facility] [address] [address] ECG 12 lead (09/01/2017 6:18 PM) Specimen Performing Laboratory [facility] Narrative Ventricular Rate 77 BPM Atrial Rate 77 BPM P-R Interval 162 ms QRS Duration 98 ms Q-T Interval 404 ms QTC Calculation(Bazett) 457 ms P Guys -8 degrees R Guys 30 degrees T Guys -1 degrees Normal sinus rhythm RSR' or [...] 404 ms QTC Calculation(Bazett) 457 ms P Guys -8 degrees R Guys 30 degrees T Guys -1 degrees Normal sinus rhythm RSR' or QR pattern in V1 suggests right ventricular conduction delay Cannot rule out Anterior infarct , age undetermined Abnormal ECG No previous ECGs available Confirmed by MD [place] ([id number]) on 09/02/2017 2:25:25 PM US abdomen limited (09/01/2017 5:23 AM) Specimen Performing Laboratory [facility] RIS Narrative FINAL REPORT INDICATION: 37-year-old male [...] MD Report Verified Date/Time:09/01/2017 09:53:12 Reading Location: [facility] [id number] Ultrasound Reading Room Procedure Note [...] Report Verified Date/Time: 09/01/2017 09:53:12 Reading Location: [facility] P006 Ultrasound Reading Room /Free T4 If Indicated (09/01/2017 3:12 AM) Component Value Ref Range TSH 0.36 0.35 - 4.94 uIU/mL Specimen Performing Laboratory Blood - Arm, [address] [address] Troponin I (09/01/2017 3:12 AM) Component Value Ref Range Troponin I <0.01 0.00 - 0.03 ng/mL Specimen Performing Laboratory Blood - Arm, [address] [address] Narrative Troponin I (TnI) levels must be [...] mm/HR Specimen Performing Laboratory Blood - Arm, [address] [address] Hemoglobin A1c (09/01/2017 3:12 AM) Component Value Ref Range Hemoglobin A1C 4.7 4.3 - 6.1 % Specimen Performing Laboratory Blood - Arm, [address] [address] Creatine Kinase (CK), Total and MB (09/01/2017 3:12 AM) Component Value Ref Range Total CK 29 29 - 200 U/L CK-MB 0.4 0.0 - 6.6 ng/mL MB Relative Index 1.4 % Specimen Performing Laboratory Blood - Arm, [address] [address] Narrative CK-MB Reference Range: <6.7Normal 6.7-10.0Borderline >10.0 Abnormal Amylase (09/01/2017 3:12 AM) Component Value Ref Range Amylase 383 (H) 25 - 125 U/L Specimen Performing Laboratory Blood - Arm, [address] [address] Lipid panel (09/01/2017 3:12 AM)Only the most recent of2 resultswithin the time period is included. Component Value Ref Range Triglycerides 76 mg/dL Cholesterol 118 mg/dL HDL 37 mg/dL LDL Calculated 66 mg/dL Specimen Performing Laboratory Blood - Arm, [address] [address] Narrative Triglyceride Reference Range: Low Risk <150 [id number] High Risk 200-499 Very High Risk>=500 Cholesterol Reference Range: Low Risk <200 [id number] High Risk>240 HDL Cholesterol Reference Range: Low Risk >=60 High Risk <40 LDL Cholesterol Reference Range: Optimal<100 Near [id number] Fgtzgaczby210-316 Mycu804-248 Very High >=190 Blood culture (09/01/2017 3:11 AM)Only the most recent of2 resultswithin the time period is included. Component Value Ref Range Result No growth in 5 days Specimen Performing Laboratory Blood - Arm, Right [address] [address] EKG-SCANNED (05/22/2017 12:43 PM)Comprehensive metabolic panel (05/19/2017 [...] FOR DIALYSIS PATIENTS. Specimen Performing Laboratory Blood [address] [address] CBC (Hemogram only) (05/17/2017 4:26 AM)Only the [...] Performing Laboratory Blood - Arm, Right [facility] [address] [place] [address] MR abdomen without IV contrast MRCP (03/13/2017 [...] MD Report Verified Date/Time:03/13/2017 12:25:41 Reading Location: [address] Consult Reading Room Procedure Note Interface, External Ris In - 03/13/2017 12:27 PM SHINGLE [employer]ER FINAL REPORT MRI of the abdomen, MRCP. [...] Report Verified Date/Time: 03/13/2017 12:25:41 Reading Location: [facility] C013X [facility] Consult Reading Room Manual Differential (03/11/2017 5:44 AM)Only the most recent of2 resultswithin the time period is included. Component Value Ref Range Total Counted WBC Morphology Normal Platelet Morphology Normal RBC Morphology Normal Specimen Performing Laboratory Blood - Line, Venous [address] [address] Prothrombin time/INR (03/09/2017 9:54 AM) Component Value Ref Range Protime 14.3 11.7 - 14.7 seconds INR 1.1 <=5.9 Specimen Performing Laboratory Blood [address] [address] Narrative RECOMMENDED COUMADIN/WARFARIN INR THERAPY RANGES STANDARD DOSE: 2.0 - 3.0 Includes: PROPHYLAXIS for venous thrombosis, systemic embolization; TREATMENT for venous thrombosis and/or pulmonary embolus. HIGH RISK: Target INR is 2.5-3.5 for patients with mechanical heart valves. after 12/17/2016
--- OUTSIDE RECORDS SUMMARY | 2017-12-18 06:52 | XMS REPORT ---
:1980 [facility] Address [address] [place] [address] Care Team Providers Name Role Phone VANI [...] WALLER, 2017-09-[address] at [facility] for FINAL REPORT PATIENT EXTENSIVE - 16:25:00 evidence of bleedCall with ID: [id number] ARTERIAL questions: [phone] or Mesenteric angiogram [facility] for and embolization exam:->Pancreaticoduodednal artery with intermittent [...] blood loss: < 5 cc. Specimen: None. packaging machine operator: Michael Ortega MD. High School Music Director: None.. Fluoroscopy Time: 31.7 min.Reference Air Kerma [...] over 0.035 Bentson wire for a 5 Somali by 10 cm vascular sheath. A 5 Somali Sutton B catheter was used to select the celiac trunk and SMA for multiple DSA runs. The Sutton catheter was then remanipulated into the celiac trunk. Next, using a 2.4 Somali microcatheter and 0.016 inch microwire, the gastroduodenal artery was cannulated. Subsequently, the catheter was manipulated into the feeding branch supplying the abnormal area of hyperemia/vessel irregularity. From this location, embolization was performed using Interlock microcoils. The microcatheter was retracted into the GDA proximally and postdilatation DSA was performed. Next, the Sutton base catheter was manipulated into the SMA. Using a 2. Somali directional microcatheter and 0.014 inch microwire, the [...] Ortegaort Verified Date/Time: 09/20/2017 16:25:06 Reading Location: [place] [address] Angio Body Reading Room IUM, IONIZED 2017-09-19 07:02:00 Test Item Value Reference Range Comments CALCIUM IONIZED (BEAKER) (test yqis=481) 1.11 mmol/L 1.12-1.27 PH, BLOOD (BEAKER) (test vsld=1640) 7.40 [id number] 06:35:00 Test Item Value Reference Range Comments PHOSPHORUS (BEAKER) (test kprm=344) 3.0 mg/dL 2.3-4.7 [id number] 06:35:00 Test Item Value Reference Range Comments MAGNESIUM (BEAKER) (test ppou=366) 2.0 mg/dL 1.6-2.6 BASIC METABOLIC [id number] 06:35:00 Test Item Value Reference Range Comments SODIUM (BEAKER) (test 138 meq/L 136-145 bzkz=429) POTASSIUM (BEAKER) (test 3.8 meq/L 3.5-5.1 suwh=627) CHLORIDE (BEAKER) (test 109 meq/L 98-107 uthq=428) CO2 (BEAKER) (test 22 meq/L 22-29 tfpi=545) BLOOD UREA NITROGEN 10 mg/dL 7-21 (BEAKER) (test ismd=432) CREATININE (BEAKER) (test 0.53 mg/dL 0.57-1.25 zzlf=649) GLUCOSE RANDOM (BEAKER) 88 mg/dL 70-105 (test tjor=464) CALCIUM (BEAKER) (test 8.5 mg/dL 8.4-10.2 wsfp=335) EGFR (BEAKER) (test 174 mL/min/1.73 sq m ESTIMATED GFR IS NOT cron=5908) ACCURATE CREATININE CLEARANCE IN PREDICTING GLOMERULAR FILTRATION RATE. ESTIMATED GFR IS NOT APPLICABLE FOR DIALYSIS PATIENTS. CALCIUM, [id number] 07:12:00 Test Item Value Reference Range Comments CALCIUM IONIZED (BEAKER) (test nksh=567) 1.09 mmol/L 1.12-1.27 PH, BLOOD (BEAKER) (test mpko=6204) 7.41 [id number] 06:38:00 Test Item Value Reference Range Comments PHOSPHORUS (BEAKER) (test lmey=570) 3.0 mg/dL 2.3-4.7 [id number] 06:38:00 Test Item Value Reference Range Comments MAGNESIUM (BEAKER) (test xdxs=051) 2.1 mg/dL 1.6-2.6 BASIC METABOLIC [id number] 06:38:00 Test Item Value Reference Range Comments SODIUM (BEAKER) (test 137 meq/L 136-145 lafe=095) POTASSIUM (BEAKER) (test 3.7 meq/L 3.5-5.1 borq=041) CHLORIDE (BEAKER) (test 108 meq/L 98-107 ddct=260) CO2 (BEAKER) (test 22 meq/L 22-29 lwdx=749) BLOOD UREA NITROGEN 10 mg/dL 7-21 (BEAKER) (test uqhe=998) CREATININE (BEAKER) (test 0.52 mg/dL 0.57-1.25 pdyh=739) GLUCOSE RANDOM (BEAKER) 99 mg/dL 70-105 (test irmw=294) CALCIUM (BEAKER) (test 8.6 mg/dL 8.4-10.2 nwzv=217) EGFR (BEAKER) (test 178 mL/min/1.73 sq m ESTIMATED GFR IS NOT qbum=5666) ACCURATE CREATININE CLEARANCE IN PREDICTING GLOMERULAR FILTRATION RATE. ESTIMATED GFR IS NOT APPLICABLE FOR DIALYSIS PATIENTS. CALCIUM, [id number] 04:45:00 Test Item Value Reference Range Comments CALCIUM IONIZED (BEAKER) (test tota=592) 1.14 mmol/L 1.12-1.27 PH, BLOOD (BEAKER) (test byev=6250) 7.39 [id number] 04:22:00 Test Item Value Reference Range Comments PHOSPHORUS (BEAKER) (test ahdz=572) 2.8 mg/dL 2.3-4.7 [id number] 04:22:00 Test Item Value Reference Range Comments MAGNESIUM (BEAKER) (test nfna=914) 1.9 mg/dL 1.6-2.6 BASIC METABOLIC [id number] 04:22:00 Test Item Value Reference Range Comments SODIUM (BEAKER) (test 134 meq/L 136-145 elmt=823) POTASSIUM (BEAKER) (test 3.3 meq/L 3.5-5.1 osdd=865) CHLORIDE (BEAKER) (test 103 meq/L 98-107 nckl=092) CO2 (BEAKER) (test 23 meq/L 22-29 zbqu=250) BLOOD UREA NITROGEN 11 mg/dL 7-21 (BEAKER) (test wljx=772) CREATININE (BEAKER) (test 0.55 mg/dL 0.57-1.25 ujyy=871) GLUCOSE RANDOM (BEAKER) 112 mg/dL 70-105 (test ggdj=985) CALCIUM (BEAKER) (test 8.7 mg/dL 8.4-10.2 view=579) EGFR (BEAKER) (test 167 mL/min/1.73 sq m ESTIMATED GFR IS NOT aqcf=3981) ACCURATE CREATININE CLEARANCE IN PREDICTING GLOMERULAR FILTRATION RATE. ESTIMATED GFR IS NOT APPLICABLE FOR DIALYSIS PATIENTS. CBC W/PLT COUNT & AUTO [id number] 04:11:00 Test Item Value Reference Range Comments WHITE BLOOD CELL COUNT (BEAKER) (test ktfi=194) 10.1 K/ L 3.5-10.5 RED BLOOD CELL COUNT (BEAKER) (test lhih=904) 4.16 M/ L 4.63-6.08 HEMOGLOBIN (BEAKER) (test virr=521) 12.6 GM/DL 13.7-17.5 HEMATOCRIT (BEAKER) (test bwss=900) 37.3 % 40.1-51.0 MEAN CORPUSCULAR VOLUME (BEAKER) (test dfzf=996) 89.7 fL 79.0-92.2 MEAN CORPUSCULAR HEMOGLOBIN (BEAKER) (test 30.3 pg 25.7-32.2 udio=941) MEAN CORPUSCULAR HEMOGLOBIN CONC (BEAKER) (test 33.8 GM/DL 32.3-36.5 zrji=307) RED CELL DISTRIBUTION WIDTH (BEAKER) (test 14.0 % 11.6-14.4 iskl=923) PLATELET COUNT (BEAKER) (test eifw=882) 541 K/CU MM 150-450 MEAN PLATELET VOLUME (BEAKER) (test crzf=778) 9.1 fL 9.4-12.4 NUCLEATED RED BLOOD CELLS (BEAKER) (test 0 /100 WBC 0-0 hocj=694) NEUTROPHILS RELATIVE PERCENT (BEAKER) (test 66 % exls=816) LYMPHOCYTES RELATIVE PERCENT (BEAKER) (test 20 % dwvp=546) MONOCYTES RELATIVE PERCENT (BEAKER) (test 10 % kvdg=323) EOSINOPHILS RELATIVE PERCENT (BEAKER) (test 3 % geht=006) BASOPHILS RELATIVE PERCENT (BEAKER) (test 1 % kgwu=686) NEUTROPHILS ABSOLUTE COUNT (BEAKER) (test 6.65 K/ L 1.78-5.38 btzw=678) LYMPHOCYTES ABSOLUTE COUNT (BEAKER) (test 2.05 K/ L 1.32-3.57 cmsl=040) MONOCYTES ABSOLUTE COUNT (BEAKER) (test 1.03 K/ L 0.30-0.82 kwid=374) EOSINOPHILS ABSOLUTE COUNT (BEAKER) (test 0.26 K/ L 0.04-0.54 gyyy=198) BASOPHILS ABSOLUTE COUNT (BEAKER) (test 0.10 K/ L 0.01-0.08 qahi=789) IMMATURE GRANULOCYTES-RELATIVE PERCENT (BEAKER) 0 % 0-1 (test ogab=4249) U/S, ABDOMINAL, WITH [id number] 04:01:00Reason for exam:->? hx of PV thrombosisFINAL [...] Gaspar Verified Date/Time: 09/17/2017 04:01:12 Reading Location: [facility] [id number] Ortho Consult Reading Room 04 :01 AMC-REACTIVE [id number] 13:17:00 Test Item Value Reference Range Comments C-REACTIVE PROTEIN (BEAKER) (test lpjg=426) 0.97 mg/dL 0.00-0.50 [id number] 11:12:00 Test Item Value Reference Range Comments PROTIME (BEAKER) (test ejyo=440) 16.2 seconds 11.7-14.7 INR (BEAKER) (test fbse=834) 1.3 <=5.9 PARTIAL THROMBOPLASTIN TIME (BEAKER) (test 30.2 seconds 22.5-36.0 wbnn=981) RECOMMENDED COUMADIN/WARFARIN INR THERAPY RANGESSTANDARD DOSE: 2.0 - 3.0 Includes: PROPHYLAXIS forvenous thrombosis, systemic embolization; TREATMENT for venous thrombosis and/or pulmonary embolus.HIGH RISK: Target INR is 2.5-3.5 for patients with mechanical heart valves.[id number] 05:28:00 Test Item Value Reference Range Comments TRIGLYCERIDES (BEAKER) (test eqhn=035) 78 mg/dL TRIGLYCERIDE REFERENCE RANGELow Risk <150Borderline Risk 150-199High Risk 200-499Very High Risk>=[id number] 05:28:00 Test Item Value Reference Range Comments MAGNESIUM (BEAKER) (test qfry=264) 1.9 mg/dL 1.6-2.6 [id number] 05:28:00 Test Item Value Reference Range Comments PHOSPHORUS (BEAKER) (test kruo=860) 3.5 mg/dL 2.3-4.7 BASIC METABOLIC [id number] 05:28:00 Test Item Value Reference Range Comments SODIUM (BEAKER) (test 134 meq/L 136-145 xtuq=253) POTASSIUM (BEAKER) (test 3.6 meq/L 3.5-5.1 muxk=663) CHLORIDE (BEAKER) (test 105 meq/L 98-107 jdqt=159) CO2 (BEAKER) (test 23 meq/L 22-29 eiqy=516) BLOOD UREA NITROGEN 13 mg/dL 7-21 (BEAKER) (test qgzc=105) CREATININE (BEAKER) (test 0.56 mg/dL 0.57-1.25 pvda=212) GLUCOSE RANDOM (BEAKER) 83 mg/dL 70-105 (test eezt=382) CALCIUM (BEAKER) (test 8.8 mg/dL 8.4-10.2 xjzz=006) EGFR (BEAKER) (test 163 mL/min/1.73 sq m ESTIMATED GFR IS NOT wuyx=4371) ACCURATE CREATININE CLEARANCE IN PREDICTING GLOMERULAR FILTRATION RATE. ESTIMATED GFR IS NOT APPLICABLE FOR DIALYSIS PATIENTS. HEPATIC FUNCTION [id number] 05:28:00 Test Item Value Reference Range Comments TOTAL PROTEIN (BEAKER) (test bymx=538) 6.5 gm/dL 6.0-8.3 ALBUMIN (BEAKER) (test qpir=1266) 3.7 g/dL 3.5-5.0 BILIRUBIN TOTAL (BEAKER) (test vjoa=906) 0.3 mg/dL 0.2-1.2 BILIRUBIN DIRECT (BEAKER) (test xjid=845) 0.1 mg/dL 0.1-0.5 ALKALINE PHOSPHATASE (BEAKER) (test qxwx=859) 79 U/L 40-150 AST (SGOT) (BEAKER) (test zlor=581) 14 U/L 5-34 ALT (SGPT) (BEAKER) (test akqo=169) 9 U/L 6-55 [id number] 05:28:00 Test Item Value Reference Range Comments LIPASE (BEAKER) (test evpx=710) 114 U/L 8-78 CBC W/PLT COUNT & AUTO [id number] 05:03:00 Test Item Value Reference Range Comments WHITE BLOOD CELL COUNT (BEAKER) (test zxdw=541) 7.2 K/ L 3.5-10.5 RED BLOOD CELL COUNT (BEAKER) (test dkow=806) 4.04 M/ L 4.63-6.08 HEMOGLOBIN (BEAKER) (test dwxg=093) 12.2 GM/DL 13.7-17.5 HEMATOCRIT (BEAKER) (test ehxx=511) 36.7 % 40.1-51.0 MEAN CORPUSCULAR VOLUME (BEAKER) (test givs=092) 90.8 fL 79.0-92.2 MEAN CORPUSCULAR HEMOGLOBIN (BEAKER) (test 30.2 pg 25.7-32.2 exad=880) MEAN CORPUSCULAR HEMOGLOBIN CONC (BEAKER) (test 33.2 GM/DL 32.3-36.5 njuq=298) RED CELL DISTRIBUTION WIDTH (BEAKER) (test 14.3 % 11.6-14.4 lhcd=066) PLATELET COUNT (BEAKER) (test fpxv=824) 561 K/CU MM 150-450 MEAN PLATELET VOLUME (BEAKER) (test wwne=086) 9.2 fL 9.4-12.4 NUCLEATED RED BLOOD CELLS (BEAKER) (test 0 /100 WBC 0-0 hxeo=730) NEUTROPHILS RELATIVE PERCENT (BEAKER) (test 51 % xpgj=159) LYMPHOCYTES RELATIVE PERCENT (BEAKER) (test 32 % aeoi=173) MONOCYTES RELATIVE PERCENT (BEAKER) (test 11 % dhtu=622) EOSINOPHILS RELATIVE PERCENT (BEAKER) (test 4 % qrgm=748) BASOPHILS RELATIVE PERCENT (BEAKER) (test 2 % ytnl=470) NEUTROPHILS ABSOLUTE COUNT (BEAKER) (test 3.66 K/ L 1.78-5.38 yyci=544) LYMPHOCYTES ABSOLUTE COUNT (BEAKER) (test 2.30 K/ L 1.32-3.57 cory=259) MONOCYTES ABSOLUTE COUNT (BEAKER) (test 0.77 K/ L 0.30-0.82 vmji=530) EOSINOPHILS ABSOLUTE COUNT (BEAKER) (test 0.30 K/ L 0.04-0.54 dwyc=563) BASOPHILS ABSOLUTE COUNT (BEAKER) (test 0.11 K/ L 0.01-0.08 tunf=597) IMMATURE GRANULOCYTES-RELATIVE PERCENT (BEAKER) 1 % 0-1 (test fvwc=0845) RAD, CHEST, 1 VIEW, NON [id number] 19:53:00Reason for exam:->check picc placement Should this [...] MDReport Verified Date/Time: 09/15/2017 19:53:01 Reading Location: [address] Reading Room Electronically signed by: GEORGE KEYS M.D. on 07:53 PMCBC W/PLT COUNT & AUTO [id number] 10:27:00 Test Item Value Reference Range Comments WHITE BLOOD CELL COUNT (BEAKER) (test ezem=385) 7.8 K/ L 3.5-10.5 RED BLOOD CELL COUNT (BEAKER) (test pqju=528) 3.95 M/ L 4.63-6.08 HEMOGLOBIN (BEAKER) (test ylfn=755) 12.0 GM/DL 13.7-17.5 HEMATOCRIT (BEAKER) (test iuib=624) 35.9 % 40.1-51.0 MEAN CORPUSCULAR VOLUME (BEAKER) (test jawk=176) 90.9 fL 79.0-92.2 MEAN CORPUSCULAR HEMOGLOBIN (BEAKER) (test 30.4 pg 25.7-32.2 rkot=875) MEAN CORPUSCULAR HEMOGLOBIN CONC (BEAKER) (test 33.4 GM/DL 32.3-36.5 xgeo=374) RED CELL DISTRIBUTION WIDTH (BEAKER) (test 14.6 % 11.6-14.4 ftal=532) PLATELET COUNT (BEAKER) (test keng=468) 543 K/CU MM 150-450 MEAN PLATELET VOLUME (BEAKER) (test qnej=766) 9.1 fL 9.4-12.4 NUCLEATED RED BLOOD CELLS (BEAKER) (test 0 /100 WBC 0-0 nrvk=156) NEUTROPHILS RELATIVE PERCENT (BEAKER) (test 59 % xwoh=542) LYMPHOCYTES RELATIVE PERCENT (BEAKER) (test 27 % mgjg=559) MONOCYTES RELATIVE PERCENT (BEAKER) (test 11 % gfsb=127) EOSINOPHILS RELATIVE PERCENT (BEAKER) (test 1 % ktfn=397) BASOPHILS RELATIVE PERCENT (BEAKER) (test 1 % wrnt=008) NEUTROPHILS ABSOLUTE COUNT (BEAKER) (test 4.56 K/ L 1.78-5.38 qdlv=554) LYMPHOCYTES ABSOLUTE COUNT (BEAKER) (test 2.11 K/ L 1.32-3.57 cuxl=994) MONOCYTES ABSOLUTE COUNT (BEAKER) (test 0.89 K/ L 0.30-0.82 dqty=146) EOSINOPHILS ABSOLUTE COUNT (BEAKER) (test 0.11 K/ L 0.04-0.54 hxti=107) BASOPHILS ABSOLUTE COUNT (BEAKER) (test 0.08 K/ L 0.01-0.08 gkpv=668) IMMATURE GRANULOCYTES-RELATIVE PERCENT (BEAKER) 0 % 0-1 (test kxxb=8256) PERIPHERAL BLOOD SMEAR - PATHOLOGIST [id number] 10:04:00 Test Item Value Reference Range Comments PERIPHERAL SMR REVIEW (BEAKER) Thrombocytosis. No circulating (test tnjc=4686) blasts or increased schistocytes. Clinical follow up recommended. [id number] (BEAKER) Enoch Saba (test lzla=2676) Miladis(electronic signature) [id number] 06:02:00 Test Item Value Reference Range Comments PHOSPHORUS (BEAKER) (test czlc=445) 3.3 mg/dL 2.3-4.7 [id number] 06:02:00 Test Item Value Reference Range Comments MAGNESIUM (BEAKER) (test ubce=399) 2.0 mg/dL 1.6-2.6 BASIC METABOLIC [id number] 06:02:00 Test Item Value Reference Range Comments SODIUM (BEAKER) (test 132 meq/L 136-145 qaau=915) POTASSIUM (BEAKER) (test 3.7 meq/L 3.5-5.1 nklc=000) CHLORIDE (BEAKER) (test 102 meq/L 98-107 widz=923) CO2 (BEAKER) (test 22 meq/L 22-29 jrjg=474) BLOOD UREA NITROGEN 11 mg/dL 7-21 (BEAKER) (test imzf=534) CREATININE (BEAKER) (test 0.52 mg/dL 0.57-1.25 hiub=541) GLUCOSE RANDOM (BEAKER) 76 mg/dL 70-105 (test sczf=289) CALCIUM (BEAKER) (test 9.4 mg/dL 8.4-10.2 wfgs=637) EGFR (BEAKER) (test 178 mL/min/1.73 sq m ESTIMATED GFR IS NOT hfte=9019) ACCURATE CREATININE CLEARANCE IN PREDICTING GLOMERULAR FILTRATION RATE. ESTIMATED GFR IS NOT APPLICABLE FOR DIALYSIS PATIENTS. VITAMIN B12 AND [id number] 12:22:00 Test Item Value Reference Range Comments VITAMIN B12 (BEAKER) (test rlwi=837) 527 pg/mL 213-816 FOLATE (BEAKER) (test jcxo=661) 12.3 ng/mL >=7.0 [id number] 07:34:00 Test Item Value Reference Range Comments LIPASE (BEAKER) (test uajc=768) 1107 U/L 8-78 BASIC METABOLIC [id number] 07:32:00 Test Item Value Reference Range Comments SODIUM (BEAKER) (test 134 meq/L 136-145 ojtg=933) POTASSIUM (BEAKER) (test 3.7 meq/L 3.5-5.1 rxnf=003) CHLORIDE (BEAKER) (test 103 meq/L 98-107 ibwi=778) CO2 (BEAKER) (test 20 meq/L 22-29 jnaa=946) BLOOD UREA NITROGEN 10 mg/dL 7-21 (BEAKER) (test nfbn=218) CREATININE (BEAKER) (test 0.59 mg/dL 0.57-1.25 bptj=127) GLUCOSE RANDOM (BEAKER) 96 mg/dL 70-105 (test zfhm=827) CALCIUM (BEAKER) (test 9.7 mg/dL 8.4-10.2 anej=413) EGFR (BEAKER) (test 154 mL/min/1.73 sq m ESTIMATED GFR IS NOT oepw=3712) ACCURATE CREATININE CLEARANCE IN PREDICTING GLOMERULAR FILTRATION RATE. ESTIMATED GFR IS NOT APPLICABLE FOR DIALYSIS PATIENTS. [id number] 07:32:00 Test Item Value Reference Range Comments MAGNESIUM (BEAKER) (test pjkh=354) 1.9 mg/dL 1.6-2.6 [id number] 07:32:00 Test Item Value Reference Range Comments PHOSPHORUS (BEAKER) (test ngch=592) 3.4 mg/dL 2.3-4.7 CBC W/PLT COUNT & AUTO [id number] 06:44:00 Test Item Value Reference Range Comments WHITE BLOOD CELL COUNT (BEAKER) (test guoa=595) 12.1 K/ L 3.5-10.5 RED BLOOD CELL COUNT (BEAKER) (test xnsi=614) 4.34 M/ L 4.63-6.08 HEMOGLOBIN (BEAKER) (test zpnt=243) 13.1 GM/DL 13.7-17.5 HEMATOCRIT (BEAKER) (test atov=994) 39.2 % 40.1-51.0 MEAN CORPUSCULAR VOLUME (BEAKER) (test szmp=467) 90.3 fL 79.0-92.2 MEAN CORPUSCULAR HEMOGLOBIN (BEAKER) (test 30.2 pg 25.7-32.2 zwbk=927) MEAN CORPUSCULAR HEMOGLOBIN CONC (BEAKER) (test 33.4 GM/DL 32.3-36.5 rulk=977) RED CELL DISTRIBUTION WIDTH (BEAKER) (test 14.9 % 11.6-14.4 mtta=791) PLATELET COUNT (BEAKER) (test heby=962) 636 K/CU MM 150-450 MEAN PLATELET VOLUME (BEAKER) (test wxnq=421) 9.5 fL 9.4-12.4 NUCLEATED RED BLOOD CELLS (BEAKER) (test 0 /100 WBC 0-0 aers=882) NEUTROPHILS RELATIVE PERCENT (BEAKER) (test 72 % ftor=121) LYMPHOCYTES RELATIVE PERCENT (BEAKER) (test 15 % fcvt=284) MONOCYTES RELATIVE PERCENT (BEAKER) (test 11 % nklk=986) EOSINOPHILS RELATIVE PERCENT (BEAKER) (test 0 % swle=250) BASOPHILS RELATIVE PERCENT (BEAKER) (test 0 % zcwq=749) NEUTROPHILS ABSOLUTE COUNT (BEAKER) (test 8.72 K/ L 1.78-5.38 cliy=062) LYMPHOCYTES ABSOLUTE COUNT (BEAKER) (test 1.87 K/ L 1.32-3.57 kkbd=380) MONOCYTES ABSOLUTE COUNT (BEAKER) (test 1.38 K/ L 0.30-0.82 npkd=441) EOSINOPHILS ABSOLUTE COUNT (BEAKER) (test 0.02 K/ L 0.04-0.54 hzlf=268) BASOPHILS ABSOLUTE COUNT (BEAKER) (test 0.05 K/ L 0.01-0.08 kgbt=228) IMMATURE GRANULOCYTES-RELATIVE PERCENT (BEAKER) 1 % 0-1 (test cxdj=9875) FINE NEEDLE ASPIRATION BY [id number] 13:21:00Medical Cytology Report Case: [id number] Authorizing Provider: Bessy Hernandez MD Collected: 2017 1743 Ordering Location: [address] Received : 09/08/2017 1814 Service Pathologist: Mir Anthony MD Specimen: Pancreas PANCREAS HEAD CYSTICLESION FNA BY CLINICIAN ( CYTOSPINS AND CELL BLOCK OF ASPIRATE): - NO MALIGNANT CELLS IDENTIFIED - The mucin stain shows focal weak staining Signing Pathologist Direct Phone Line : [phone] signed by Mir Anthony MD on 09/11/2017 at 1:21 PMThe cell block shows non-inflammed pancreatic acinar tissue.10563, 28259, 14486(4.9 X 4.8 cm) Cystic lesion in the pancreatic headPANCREAS HEAD CYSTIC LESION FNA25 mls in cytorich red; 4 cytospins, 1 mucin stain, cell blockCollected: [id number]: [id number], [facility] of [facility], [address] [place] [id number], Tel [facility], [address] [place] [address], [id number] 10:07:00 Test Item Value Reference Range Comments PARTIAL THROMBOPLASTIN TIME (BEAKER) (test 44.5 seconds 22.5-36.0 jyfg=257) BASIC METABOLIC [id number] 05:56:00 Test Item Value Reference Range Comments SODIUM (BEAKER) (test 138 meq/L 136-145 tnut=951) POTASSIUM (BEAKER) (test 3.7 meq/L 3.5-5.1 hktb=394) CHLORIDE (BEAKER) (test 105 meq/L 98-107 frbk=978) CO2 (BEAKER) (test 25 meq/L 22-29 mvxf=879) BLOOD UREA NITROGEN 7 mg/dL 7-21 (BEAKER) (test whch=175) CREATININE (BEAKER) (test 0.62 mg/dL 0.57-1.25 tcdr=325) GLUCOSE RANDOM (BEAKER) 120 mg/dL 70-105 (test kmze=616) CALCIUM (BEAKER) (test 8.7 mg/dL 8.4-10.2 jtwy=627) EGFR (BEAKER) (test 145 mL/min/1.73 sq m ESTIMATED GFR IS NOT bprt=2286) ACCURATE CREATININE CLEARANCE IN PREDICTING GLOMERULAR FILTRATION RATE. ESTIMATED GFR IS NOT APPLICABLE FOR DIALYSIS PATIENTS. CBC W/PLT COUNT & AUTO [id number] 05:42:00 Test Item Value Reference Range Comments WHITE BLOOD CELL COUNT (BEAKER) (test lpxs=667) 4.6 K/ L 3.5-10.5 RED BLOOD CELL COUNT (BEAKER) (test zatl=848) 3.83 M/ L 4.63-6.08 HEMOGLOBIN (BEAKER) (test jlqy=132) 11.7 GM/DL 13.7-17.5 HEMATOCRIT (BEAKER) (test xajb=388) 34.7 % 40.1-51.0 MEAN CORPUSCULAR VOLUME (BEAKER) (test aovv=598) 90.6 fL 79.0-92.2 MEAN CORPUSCULAR HEMOGLOBIN (BEAKER) (test 30.5 pg 25.7-32.2 omqu=277) MEAN CORPUSCULAR HEMOGLOBIN CONC (BEAKER) (test 33.7 GM/DL 32.3-36.5 iusl=659) RED CELL DISTRIBUTION WIDTH (BEAKER) (test 14.3 % 11.6-14.4 vejr=853) PLATELET COUNT (BEAKER) (test geql=586) 378 K/CU MM 150-450 MEAN PLATELET VOLUME (BEAKER) (test xmsk=525) 9.0 fL 9.4-12.4 NUCLEATED RED BLOOD CELLS (BEAKER) (test 0 /100 WBC 0-0 onux=917) NEUTROPHILS RELATIVE PERCENT (BEAKER) (test 39 % gnxk=878) LYMPHOCYTES RELATIVE PERCENT (BEAKER) (test 43 % dzok=171) MONOCYTES RELATIVE PERCENT (BEAKER) (test 12 % ppzx=149) EOSINOPHILS RELATIVE PERCENT (BEAKER) (test 5 % jtno=953) BASOPHILS RELATIVE PERCENT (BEAKER) (test 1 % exhk=793) NEUTROPHILS ABSOLUTE COUNT (BEAKER) (test 1.81 K/ L 1.78-5.38 xbje=639) LYMPHOCYTES ABSOLUTE COUNT (BEAKER) (test 2.01 K/ L 1.32-3.57 okly=235) MONOCYTES ABSOLUTE COUNT (BEAKER) (test 0.55 K/ L 0.30-0.82 fqyj=454) EOSINOPHILS ABSOLUTE COUNT (BEAKER) (test 0.21 K/ L 0.04-0.54 hbpc=562) BASOPHILS ABSOLUTE COUNT (BEAKER) (test 0.05 K/ L 0.01-0.08 dqcc=183) IMMATURE GRANULOCYTES-RELATIVE PERCENT (BEAKER) 0 % 0-1 (test kihu=0925) FINE NEEDLE ASPIRATE (FNA) [id number] 20:00:00 Test Item Value Reference Range Comments CYTOLOGY RESULT POINTER (BEAKER) (test See Separate Report xfnv=[id number]) [id number] 12:16:00 Test Item Value Reference Range Comments PARTIAL THROMBOPLASTIN TIME (BEAKER) (test 84.6 seconds 22.5-36.0 yvds=333) BASIC METABOLIC [id number] 05:21:00 Test Item Value Reference Range Comments SODIUM (BEAKER) (test 126 meq/L 136-145 qzlo=487) POTASSIUM (BEAKER) (test 2.8 meq/L 3.5-5.1 fmbl=203) CHLORIDE (BEAKER) (test 99 meq/L 98-107 kzlm=674) CO2 (BEAKER) (test 20 meq/L 22-29 ooxu=103) BLOOD UREA NITROGEN 3 mg/dL 7-21 (BEAKER) (test bjeq=784) CREATININE (BEAKER) (test 0.44 mg/dL 0.57-1.25 azep=900) GLUCOSE RANDOM (BEAKER) 75 mg/dL 70-105 (test tntg=147) CALCIUM (BEAKER) (test 6.8 mg/dL 8.4-10.2 ogfr=423) EGFR (BEAKER) (test 216 mL/min/1.73 sq m ESTIMATED GFR IS NOT rjjy=0728) ACCURATE CREATININE CLEARANCE IN PREDICTING GLOMERULAR FILTRATION RATE. ESTIMATED GFR IS NOT APPLICABLE FOR DIALYSIS PATIENTS. [id number] 05:13:00 Test Item Value Reference Range Comments PARTIAL THROMBOPLASTIN TIME (BEAKER) (test 110.2 seconds 22.5-36.0 uegu=573) CBC W/PLT COUNT & AUTO [id number] 04:45:00 Test Item Value Reference Range Comments WHITE BLOOD CELL COUNT (BEAKER) (test vdyh=073) 4.4 K/ L 3.5-10.5 RED BLOOD CELL COUNT (BEAKER) (test gmfq=416) 3.25 M/ L 4.63-6.08 HEMOGLOBIN (BEAKER) (test novs=696) 10.1 GM/DL 13.7-17.5 HEMATOCRIT (BEAKER) (test ssuv=917) 29.9 % 40.1-51.0 MEAN CORPUSCULAR VOLUME (BEAKER) (test uqrm=717) 92.0 fL 79.0-92.2 MEAN CORPUSCULAR HEMOGLOBIN (BEAKER) (test 31.1 pg 25.7-32.2 pjqk=775) MEAN CORPUSCULAR HEMOGLOBIN CONC (BEAKER) (test 33.8 GM/DL 32.3-36.5 odqq=253) RED CELL DISTRIBUTION WIDTH (BEAKER) (test 14.5 % 11.6-14.4 smot=499) PLATELET COUNT (BEAKER) (test cyxx=872) 297 K/CU MM 150-450 MEAN PLATELET VOLUME (BEAKER) (test ppsq=424) 9.1 fL 9.4-12.4 NUCLEATED RED BLOOD CELLS (BEAKER) (test 0 /100 WBC 0-0 ntcl=830) NEUTROPHILS RELATIVE PERCENT (BEAKER) (test 44 % mrlw=231) LYMPHOCYTES RELATIVE PERCENT (BEAKER) (test 40 % nrlk=259) MONOCYTES RELATIVE PERCENT (BEAKER) (test 11 % ttxq=380) EOSINOPHILS RELATIVE PERCENT (BEAKER) (test 4 % vkrd=792) BASOPHILS RELATIVE PERCENT (BEAKER) (test 1 % rihx=431) NEUTROPHILS ABSOLUTE COUNT (BEAKER) (test 1.96 K/ L 1.78-5.38 ejon=922) LYMPHOCYTES ABSOLUTE COUNT (BEAKER) (test 1.77 K/ L 1.32-3.57 nlqt=869) MONOCYTES ABSOLUTE COUNT (BEAKER) (test 0.49 K/ L 0.30-0.82 zxud=107) EOSINOPHILS ABSOLUTE COUNT (BEAKER) (test 0.16 K/ L 0.04-0.54 qoip=897) BASOPHILS ABSOLUTE COUNT (BEAKER) (test 0.05 K/ L 0.01-0.08 endb=839) IMMATURE GRANULOCYTES-RELATIVE PERCENT (BEAKER) 0 % 0-1 (test npwm=8579) [id number] 21:32:00 Test Item Value Reference Range Comments PARTIAL THROMBOPLASTIN TIME (BEAKER) (test 118.1 seconds 22.5-36.0 xndk=226) BASIC METABOLIC [id number] 14:23:00 Test Item Value Reference Range Comments SODIUM (BEAKER) (test 139 meq/L 136-145 otmw=742) POTASSIUM (BEAKER) (test 3.6 meq/L 3.5-5.1 ckul=120) CHLORIDE (BEAKER) (test 103 meq/L 98-107 qcmh=824) CO2 (BEAKER) (test 29 meq/L 22-29 bmlw=568) BLOOD UREA NITROGEN 3 mg/dL 7-21 (BEAKER) (test yrqd=320) CREATININE (BEAKER) (test 0.54 mg/dL 0.57-1.25 hqoi=329) GLUCOSE RANDOM (BEAKER) 108 mg/dL 70-105 (test ufaj=250) CALCIUM (BEAKER) (test 8.6 mg/dL 8.4-10.2 edcw=791) EGFR (BEAKER) (test 170 mL/min/1.73 sq m ESTIMATED GFR IS NOT hunx=0717) ACCURATE CREATININE CLEARANCE IN PREDICTING GLOMERULAR FILTRATION RATE. ESTIMATED GFR IS NOT APPLICABLE FOR DIALYSIS PATIENTS. [id number] 14:06:00 Test Item Value Reference Range Comments PARTIAL THROMBOPLASTIN TIME (BEAKER) (test 66.8 seconds 22.5-36.0 zize=712) CBC W/PLT COUNT & AUTO [id number] 13:57:00 Test Item Value Reference Range Comments WHITE BLOOD CELL COUNT (BEAKER) (test hfao=297) 4.6 K/ L 3.5-10.5 RED BLOOD CELL COUNT (BEAKER) (test tkcr=858) 3.95 M/ L 4.63-6.08 HEMOGLOBIN (BEAKER) (test bpma=010) 11.9 GM/DL 13.7-17.5 HEMATOCRIT (BEAKER) (test wiep=427) 36.5 % 40.1-51.0 MEAN CORPUSCULAR VOLUME (BEAKER) (test xwns=485) 92.4 fL 79.0-92.2 MEAN CORPUSCULAR HEMOGLOBIN (BEAKER) (test 30.1 pg 25.7-32.2 lova=509) MEAN CORPUSCULAR HEMOGLOBIN CONC (BEAKER) (test 32.6 GM/DL 32.3-36.5 nwvg=756) RED CELL DISTRIBUTION WIDTH (BEAKER) (test 14.2 % 11.6-14.4 pdak=251) PLATELET COUNT (BEAKER) (test zlkb=710) 347 K/CU MM 150-450 MEAN PLATELET VOLUME (BEAKER) (test arxr=155) 9.2 fL 9.4-12.4 NUCLEATED RED BLOOD CELLS (BEAKER) (test 0 /100 WBC 0-0 swkh=639) NEUTROPHILS RELATIVE PERCENT (BEAKER) (test 44 % yopm=925) LYMPHOCYTES RELATIVE PERCENT (BEAKER) (test 37 % iots=247) MONOCYTES RELATIVE PERCENT (BEAKER) (test 13 % kbqn=913) EOSINOPHILS RELATIVE PERCENT (BEAKER) (test 5 % cued=354) BASOPHILS RELATIVE PERCENT (BEAKER) (test 1 % hpgq=529) NEUTROPHILS ABSOLUTE COUNT (BEAKER) (test 1.99 K/ L 1.78-5.38 buxo=593) LYMPHOCYTES ABSOLUTE COUNT (BEAKER) (test 1.69 K/ L 1.32-3.57 srjh=639) MONOCYTES ABSOLUTE COUNT (BEAKER) (test 0.61 K/ L 0.30-0.82 xbhw=399) EOSINOPHILS ABSOLUTE COUNT (BEAKER) (test 0.21 K/ L 0.04-0.54 aocl=546) BASOPHILS ABSOLUTE COUNT (BEAKER) (test 0.05 K/ L 0.01-0.08 vade=200) IMMATURE GRANULOCYTES-RELATIVE PERCENT (BEAKER) 0 % 0-1 (test ulxn=4003) BASIC METABOLIC [id number] 07:03:00 Test Item Value Reference Range Comments SODIUM (BEAKER) (test 140 meq/L 136-145 kkqu=305) POTASSIUM (BEAKER) (test 3.4 meq/L 3.5-5.1 dkee=043) CHLORIDE (BEAKER) (test 100 meq/L 98-107 yljs=622) CO2 (BEAKER) (test 30 meq/L 22-29 fneo=824) BLOOD UREA NITROGEN 3 mg/dL 7-21 (BEAKER) (test sxeo=410) CREATININE (BEAKER) (test 0.56 mg/dL 0.57-1.25 nlqg=876) GLUCOSE RANDOM (BEAKER) 102 mg/dL 70-105 (test wmyr=879) CALCIUM (BEAKER) (test 9.2 mg/dL 8.4-10.2 wnqe=483) EGFR (BEAKER) (test 163 mL/min/1.73 sq m ESTIMATED GFR IS NOT hfod=1429) ACCURATE CREATININE CLEARANCE IN PREDICTING GLOMERULAR FILTRATION RATE. ESTIMATED GFR IS NOT APPLICABLE FOR DIALYSIS PATIENTS. [id number] 06:47:00 Test Item Value Reference Range Comments PARTIAL THROMBOPLASTIN TIME (BEAKER) (test 46.7 seconds 22.5-36.0 ygxm=874) [id number] 00:50:00 Test Item Value Reference Range Comments PARTIAL THROMBOPLASTIN TIME (BEAKER) (test 53.5 seconds 22.5-36.0 rpqb=332) [id number] 17:34:00 Test Item Value Reference Range Comments PARTIAL THROMBOPLASTIN TIME (BEAKER) (test 45.8 seconds 22.5-36.0 uzzt=084) [id number] 08:32:00 Test Item Value Reference Range Comments PARTIAL THROMBOPLASTIN TIME (BEAKER) (test 38.7 seconds 22.5-36.0 aiqm=658) Prior to initiating heparinBASIC METABOLIC [id number] 06:05:00 Test Item Value Reference Range Comments SODIUM (BEAKER) (test 136 meq/L 136-145 oejn=000) POTASSIUM (BEAKER) (test 3.3 meq/L 3.5-5.1 scwz=306) CHLORIDE (BEAKER) (test 102 meq/L 98-107 ijbq=625) CO2 (BEAKER) (test 26 meq/L 22-29 xygs=337) BLOOD UREA NITROGEN 2 mg/dL 7-21 (BEAKER) (test iuqc=876) CREATININE (BEAKER) (test 0.55 mg/dL 0.57-1.25 cnnf=372) GLUCOSE RANDOM (BEAKER) 124 mg/dL 70-105 (test adij=759) CALCIUM (BEAKER) (test 8.0 mg/dL 8.4-10.2 eybc=406) EGFR (BEAKER) (test 167 mL/min/1.73 sq m ESTIMATED GFR IS NOT vnml=4673) ACCURATE CREATININE CLEARANCE IN PREDICTING GLOMERULAR FILTRATION RATE. ESTIMATED GFR IS NOT APPLICABLE FOR DIALYSIS PATIENTS. BLOOD [id number] 06:00:00 Test Item Value Reference Range Comments CULTURE (BEAKER) (test hkey=7652) No growth in 5 days BLOOD [id number] 06:00:00 Test Item Value Reference Range Comments CULTURE (BEAKER) (test uwaw=5479) No growth in 5 days [id number] 03:55:00 Test Item Value Reference Range Comments PHOSPHORUS (BEAKER) (test ynlr=625) 2.8 mg/dL 2.3-4.7 [id number] 03:55:00 Test Item Value Reference Range Comments MAGNESIUM (BEAKER) (test uhrk=637) 1.3 mg/dL 1.6-2.6 BASIC METABOLIC [id number] 03:55:00 Test Item Value Reference Range Comments SODIUM (BEAKER) (test 137 meq/L 136-145 gdgf=432) POTASSIUM (BEAKER) (test 3.2 meq/L 3.5-5.1 hnoq=273) CHLORIDE (BEAKER) (test 103 meq/L 98-107 rsah=712) CO2 (BEAKER) (test 22 meq/L 22-29 fcsp=691) BLOOD UREA NITROGEN 3 mg/dL 7-21 (BEAKER) (test xxdr=081) CREATININE (BEAKER) (test 0.51 mg/dL 0.57-1.25 wcds=454) GLUCOSE RANDOM (BEAKER) 65 mg/dL 70-105 (test kacp=506) CALCIUM (BEAKER) (test 8.0 mg/dL 8.4-10.2 scuu=608) EGFR (BEAKER) (test 182 mL/min/1.73 sq m ESTIMATED GFR IS NOT pezw=6062) ACCURATE CREATININE CLEARANCE IN PREDICTING GLOMERULAR FILTRATION RATE. ESTIMATED GFR IS NOT APPLICABLE FOR DIALYSIS PATIENTS. [id number] 03:55:00 Test Item Value Reference Range Comments LIPASE (BEAKER) (test sevm=180) 210 U/L 8-78 CBC W/PLT COUNT & AUTO [id number] 03:37:00 Test Item Value Reference Range Comments WHITE BLOOD CELL COUNT (BEAKER) (test zczm=537) 6.1 K/ L 3.5-10.5 RED BLOOD CELL COUNT (BEAKER) (test zrfd=597) 3.63 M/ L 4.63-6.08 HEMOGLOBIN (BEAKER) (test rzos=795) 11.1 GM/DL 13.7-17.5 HEMATOCRIT (BEAKER) (test pbey=848) 33.0 % 40.1-51.0 MEAN CORPUSCULAR VOLUME (BEAKER) (test zlwc=541) 90.9 fL 79.0-92.2 MEAN CORPUSCULAR HEMOGLOBIN (BEAKER) (test 30.6 pg 25.7-32.2 bzad=605) MEAN CORPUSCULAR HEMOGLOBIN CONC (BEAKER) (test 33.6 GM/DL 32.3-36.5 aajw=326) RED CELL DISTRIBUTION WIDTH (BEAKER) (test 14.3 % 11.6-14.4 fpob=050) PLATELET COUNT (BEAKER) (test rjzs=830) 262 K/CU MM 150-450 MEAN PLATELET VOLUME (BEAKER) (test rysc=591) 9.1 fL 9.4-12.4 NUCLEATED RED BLOOD CELLS (BEAKER) (test 0 /100 WBC 0-0 jedc=975) NEUTROPHILS RELATIVE PERCENT (BEAKER) (test 69 % udqt=579) LYMPHOCYTES RELATIVE PERCENT (BEAKER) (test 17 % laxc=264) MONOCYTES RELATIVE PERCENT (BEAKER) (test 10 % zxha=391) EOSINOPHILS RELATIVE PERCENT (BEAKER) (test 3 % foqx=881) BASOPHILS RELATIVE PERCENT (BEAKER) (test 0 % csrj=570) NEUTROPHILS ABSOLUTE COUNT (BEAKER) (test 4.21 K/ L 1.78-5.38 hvpf=475) LYMPHOCYTES ABSOLUTE COUNT (BEAKER) (test 1.04 K/ L 1.32-3.57 qmjx=605) MONOCYTES ABSOLUTE COUNT (BEAKER) (test 0.60 K/ L 0.30-0.82 zqvn=687) EOSINOPHILS ABSOLUTE COUNT (BEAKER) (test 0.18 K/ L 0.04-0.54 kzyf=985) BASOPHILS ABSOLUTE COUNT (BEAKER) (test 0.02 K/ L 0.01-0.08 srvl=729) IMMATURE GRANULOCYTES-RELATIVE PERCENT (BEAKER) 1 % 0-1 (test hkuq=7006) CT, ABDOMEN - PELVIS, PANCREAS [id number] 00:22:00Reason for exam:-&gt ;pancreatitisFINAL REPORT CT, ABDOMEN [...] Verified Date/ Time: 09/04/2017 00:22:52 Reading Location: [address] Reading Room [id number] 06:00:00 Test Item Value Reference Range Comments MAGNESIUM (BEAKER) (test 1.6 mg/dL 1.6-2.6 Specimen slightly hemolyzed wlbx=034) [id number] 06:00:00 Test Item Value Reference Range Comments PHOSPHORUS (BEAKER) (test 3.4 mg/dL 2.3-4.7 Specimen slightly hemolyzed bzql=057) BASIC METABOLIC [id number] 06:00:00 Test Item Value Reference Range Comments SODIUM (BEAKER) (test 132 meq/L 136-145 gcnq=240) POTASSIUM (BEAKER) (test 3.9 meq/L 3.5-5.1 Specimen slightly hsyi=626) hemolyzed CHLORIDE (BEAKER) (test 101 meq/L 98-107 fndq=425) CO2 (BEAKER) (test 22 meq/L 22-29 dbee=267) BLOOD UREA NITROGEN 7 mg/dL 7-21 (BEAKER) (test udjk=875) CREATININE (BEAKER) (test 0.49 mg/dL 0.57-1.25 Specimen slightly anws=983) hemolyzed GLUCOSE RANDOM (BEAKER) 59 mg/dL 70-105 (test cmlv=423) CALCIUM (BEAKER) (test 8.1 mg/dL 8.4-10.2 dxbc=620) EGFR (BEAKER) (test 190 mL/min/1.73 sq m ESTIMATED GFR IS NOT pkcc=2085) ACCURATE CREATININE CLEARANCE IN PREDICTING GLOMERULAR FILTRATION RATE. ESTIMATED GFR IS NOT APPLICABLE FOR DIALYSIS PATIENTS. HEPATIC FUNCTION [id number] 06:00:00 Test Item Value Reference Range Comments TOTAL PROTEIN (BEAKER) (test 5.7 gm/dL 6.0-8.3 Specimen slightly hemolyzed nasc=509) ALBUMIN (BEAKER) (test 3.0 g/dL 3.5-5.0 Specimen slightly hemolyzed fghu=4967) BILIRUBIN TOTAL (BEAKER) (test 1.2 mg/dL 0.2-1.2 Specimen slightly hemolyzed mmre=001) BILIRUBIN DIRECT (BEAKER) (test 0.4 mg/dL 0.1-0.5 Specimen slightly hemolyzed vafu=982) ALKALINE PHOSPHATASE (BEAKER) 62 U/L 40-150 (test idic=524) AST (SGOT) (BEAKER) (test 18 U/L 5-34 Specimen slightly hemolyzed vwjs=522) ALT (SGPT) (BEAKER) (test < U/L 6-55 Specimen slightly hemolyzed ayhl=084) CBC W/PLT COUNT & AUTO [id number] 05:43:00 Test Item Value Reference Range Comments WHITE BLOOD CELL COUNT (BEAKER) (test mehd=559) 8.4 K/ L 3.5-10.5 RED BLOOD CELL COUNT (BEAKER) (test glxx=147) 3.68 M/ L 4.63-6.08 HEMOGLOBIN (BEAKER) (test hgzg=544) 11.6 GM/DL 13.7-17.5 HEMATOCRIT (BEAKER) (test qsqr=891) 34.4 % 40.1-51.0 MEAN CORPUSCULAR VOLUME (BEAKER) (test plqj=444) 93.5 fL 79.0-92.2 MEAN CORPUSCULAR HEMOGLOBIN (BEAKER) (test 31.5 pg 25.7-32.2 bfpp=466) MEAN CORPUSCULAR HEMOGLOBIN CONC (BEAKER) (test 33.7 GM/DL 32.3-36.5 nmmt=458) RED CELL DISTRIBUTION WIDTH (BEAKER) (test 14.6 % 11.6-14.4 trnx=615) PLATELET COUNT (BEAKER) (test fysi=905) 221 K/CU MM 150-450 MEAN PLATELET VOLUME (BEAKER) (test ruyf=960) 9.5 fL 9.4-12.4 NUCLEATED RED BLOOD CELLS (BEAKER) (test 0 /100 WBC 0-0 bazt=232) NEUTROPHILS RELATIVE PERCENT (BEAKER) (test 75 % dzqf=590) LYMPHOCYTES RELATIVE PERCENT (BEAKER) (test 14 % fqvw=457) MONOCYTES RELATIVE PERCENT (BEAKER) (test 10 % flzx=282) EOSINOPHILS RELATIVE PERCENT (BEAKER) (test 1 % ncxm=775) BASOPHILS RELATIVE PERCENT (BEAKER) (test 0 % glwk=330) NEUTROPHILS ABSOLUTE COUNT (BEAKER) (test 6.27 K/ L 1.78-5.38 oksl=618) LYMPHOCYTES ABSOLUTE COUNT (BEAKER) (test 1.16 K/ L 1.32-3.57 memm=541) MONOCYTES ABSOLUTE COUNT (BEAKER) (test 0.87 K/ L 0.30-0.82 gxor=783) EOSINOPHILS ABSOLUTE COUNT (BEAKER) (test 0.07 K/ L 0.04-0.54 hexa=368) BASOPHILS ABSOLUTE COUNT (BEAKER) (test 0.03 K/ L 0.01-0.08 lnlo=736) IMMATURE GRANULOCYTES-RELATIVE PERCENT (BEAKER) 0 % 0-1 (test izfk=0417) POCT-GLUCOSE [id number] 07:30:00 Test Item Value Reference Range Comments POC-GLUCOSE METER (BEAKER) 140 mg/dL 70-110 TESTED AT [address] (test ekcq=1509) [place] [id number] POCT-GLUCOSE [id number] 07:30:00 Test Item Value Reference Range Comments POC-GLUCOSE METER (BEAKER) 59 mg/dL 70-110 TESTED AT [address] (test lrbq=6226) [place] [id number] 05:16:00 Test Item Value Reference Range Comments MAGNESIUM (BEAKER) (test 1.7 mg/dL 1.6-2.6 Specimen slightly hemolyzed mtzv=739) [id number] 05:16:00 Test Item Value Reference Range Comments PHOSPHORUS (BEAKER) (test 3.7 mg/dL 2.3-4.7 Specimen slightly hemolyzed xtcv=015) BASIC METABOLIC [id number] 05:16:00 Test Item Value Reference Range Comments SODIUM (BEAKER) (test 136 meq/L 136-145 hofd=827) POTASSIUM (BEAKER) (test 4.1 meq/L 3.5-5.1 Specimen slightly zvex=206) hemolyzed CHLORIDE (BEAKER) (test 105 meq/L 98-107 xbth=274) CO2 (BEAKER) (test 21 meq/L 22-29 mamx=562) BLOOD UREA NITROGEN 12 mg/dL 7-21 (BEAKER) (test dnfi=275) CREATININE (BEAKER) (test 0.62 mg/dL 0.57-1.25 Specimen slightly gktl=645) hemolyzed GLUCOSE RANDOM (BEAKER) 65 mg/dL 70-105 (test ayjv=875) CALCIUM (BEAKER) (test 8.4 mg/dL 8.4-10.2 jocx=109) EGFR (BEAKER) (test 145 mL/min/1.73 sq m ESTIMATED GFR IS NOT gjmr=8784) ACCURATE CREATININE CLEARANCE IN PREDICTING GLOMERULAR FILTRATION RATE. ESTIMATED GFR IS NOT APPLICABLE FOR DIALYSIS PATIENTS. HEPATIC FUNCTION [id number] 05:16:00 Test Item Value Reference Range Comments TOTAL PROTEIN (BEAKER) (test 5.9 gm/dL 6.0-8.3 Specimen slightly hemolyzed uecy=234) ALBUMIN (BEAKER) (test 3.3 g/dL 3.5-5.0 Specimen slightly hemolyzed myip=1389) BILIRUBIN TOTAL (BEAKER) (test 1.4 mg/dL 0.2-1.2 Specimen slightly hemolyzed buwh=848) BILIRUBIN DIRECT (BEAKER) (test 0.5 mg/dL 0.1-0.5 Specimen slightly hemolyzed xzis=358) ALKALINE PHOSPHATASE (BEAKER) 66 U/L 40-150 (test cyhj=185) AST (SGOT) (BEAKER) (test 16 U/L 5-34 Specimen slightly hemolyzed tosc=836) ALT (SGPT) (BEAKER) (test 6 U/L 6-55 Specimen slightly hemolyzed hzij=948) CBC W/PLT COUNT & AUTO [id number] 04:45:00 Test Item Value Reference Range Comments WHITE BLOOD CELL COUNT (BEAKER) (test fdct=185) 9.1 K/ L 3.5-10.5 RED BLOOD CELL COUNT (BEAKER) (test pvql=782) 4.04 M/ L 4.63-6.08 HEMOGLOBIN (BEAKER) (test csfc=216) 12.3 GM/DL 13.7-17.5 HEMATOCRIT (BEAKER) (test ndeo=161) 38.1 % 40.1-51.0 MEAN CORPUSCULAR VOLUME (BEAKER) (test jtyq=391) 94.3 fL 79.0-92.2 MEAN CORPUSCULAR HEMOGLOBIN (BEAKER) (test 30.4 pg 25.7-32.2 zxfc=169) MEAN CORPUSCULAR HEMOGLOBIN CONC (BEAKER) (test 32.3 GM/DL 32.3-36.5 zoek=893) RED CELL DISTRIBUTION WIDTH (BEAKER) (test 15.7 % 11.6-14.4 ffot=548) PLATELET COUNT (BEAKER) (test ubqf=085) 243 K/CU MM 150-450 MEAN PLATELET VOLUME (BEAKER) (test iirc=377) 9.5 fL 9.4-12.4 NUCLEATED RED BLOOD CELLS (BEAKER) (test 0 /100 WBC 0-0 ljni=701) NEUTROPHILS RELATIVE PERCENT (BEAKER) (test 72 % jqxq=776) LYMPHOCYTES RELATIVE PERCENT (BEAKER) (test 16 % jksr=600) MONOCYTES RELATIVE PERCENT (BEAKER) (test 10 % fbdh=759) EOSINOPHILS RELATIVE PERCENT (BEAKER) (test 1 % ygwi=450) BASOPHILS RELATIVE PERCENT (BEAKER) (test 0 % dirw=940) NEUTROPHILS ABSOLUTE COUNT (BEAKER) (test 6.58 K/ L 1.78-5.38 rfwq=190) LYMPHOCYTES ABSOLUTE COUNT (BEAKER) (test 1.48 K/ L 1.32-3.57 nkpp=919) MONOCYTES ABSOLUTE COUNT (BEAKER) (test 0.95 K/ L 0.30-0.82 eolu=617) EOSINOPHILS ABSOLUTE COUNT (BEAKER) (test 0.05 K/ L 0.04-0.54 klhh=892) BASOPHILS ABSOLUTE COUNT (BEAKER) (test 0.04 K/ L 0.01-0.08 ldcp=115) IMMATURE GRANULOCYTES-RELATIVE PERCENT (BEAKER) 0 % 0-1 (test quag=2280) HEMOGLOBIN [id number] 10:23:00 Test Item Value Reference Range Comments HEMOGLOBIN A1C (BEAKER) (test bpaj=320) 4.7 % 4.3-6.1 U/S, ABDOMINAL, [id number] 09:53:00Abdomen limited area? Add comment if clarification [...] Nelson MDReport Verified Date/Time:09/01/2017 09:53:12 Reading Location: [address] Ultrasound Reading Room SEDIMENTATION [id number] 08:01:00 Test Item Value Reference Range Comments SEDIMENTATION RATE, ERYTHROCYTE (BEAKER) (test 3 mm/HR 0-15 rkqe=949) TSH/FREE T4 IF [id number] 04:12:00 Test Item Value Reference Range Comments THYROID STIMULATING HORMONE (BEAKER) (test 0.36 uIU/mL 0.35-4.94 lvdj=116) CREATINE KINASE (CK), TOTAL AND [id number] 04:03:00 Test Item Value Reference Range Comments CREATINE KINASE TOTAL (BEAKER) (test pgvg=901) 29 U/L 29-200 CREATINE KINASE-MB (BEAKER) (test fixl=692) 0.4 ng/mL 0.0-6.6 CREATINE KINASE-MB INDEX (BEAKER) (test ydty=268) 1.4 % CK-MB Reference Range:<6.7 Normal6.7-10.0 Borderline>10.0 AbnormalTROPONIN [id number] 04:03:00 Test Item Value Reference Range Comments TROPONIN I (BEAKER) (test isiq=669) < ng/mL 0.00-0.03 Troponin I (TnI) levels [...] failure, acidosis, acute neurological disease, and persistent tachyarrhythmia.[id number] 03:53:00 Test Item Value Reference Range Comments PHOSPHORUS (BEAKER) (test knbb=153) 3.5 mg/dL 2.3-4.7 [id number] 03:53:00 Test Item Value Reference Range Comments MAGNESIUM (BEAKER) (test fcxg=223) 1.7 mg/dL 1.6-2.6 BASIC METABOLIC [id number] 03:53:00 Test Item Value Reference Range Comments SODIUM (BEAKER) (test 137 meq/L 136-145 rpyj=345) POTASSIUM (BEAKER) (test 3.8 meq/L 3.5-5.1 nkyf=643) CHLORIDE (BEAKER) (test 105 meq/L 98-107 jqze=095) CO2 (BEAKER) (test 23 meq/L 22-29 hqlf=091) BLOOD UREA NITROGEN 7 mg/dL 7-21 (BEAKER) (test shnm=301) CREATININE (BEAKER) (test 0.62 mg/dL 0.57-1.25 msrl=067) GLUCOSE RANDOM (BEAKER) 102 mg/dL 70-105 (test cpcd=019) CALCIUM (BEAKER) (test 9.0 mg/dL 8.4-10.2 lplp=768) EGFR (BEAKER) (test 145 mL/min/1.73 sq m ESTIMATED GFR IS NOT unri=5886) ACCURATE CREATININE CLEARANCE IN PREDICTING GLOMERULAR FILTRATION RATE. ESTIMATED GFR IS NOT APPLICABLE FOR DIALYSIS PATIENTS. LIPID [id number] 03:53:00 Test Item Value Reference Range Comments TRIGLYCERIDES (BEAKER) (test oodo=816) 76 mg/dL CHOLESTEROL (BEAKER) (test svfe=970) 118 mg/dL HDL CHOLESTEROL (BEAKER) (test xkju=184) 37 mg/dL LDL CHOLESTEROL CALCULATED (BEAKER) (test 66 mg/dL ahfs=463) Triglyceride Reference Range: Low Risk <150 Borderline 150- 199 High Risk 200-499 Very High Risk >=500Cholesterol Reference Range: Low Risk <200 Borderline 200-239 High Risk > 240HDL Cholesterol Reference Range: Low Risk >=60 High Risk <40LDL Cholesterol Reference Range: Optimal <100 Near Optimal 100-129 Borderline 130-159 High 160-189 Very High >=190HEPATIC FUNCTION [id number] 03:53:00 Test Item Value Reference Range Comments TOTAL PROTEIN (BEAKER) (test qogi=732) 6.8 gm/dL 6.0-8.3 ALBUMIN (BEAKER) (test wnud=4588) 3.9 g/dL 3.5-5.0 BILIRUBIN TOTAL (BEAKER) (test tgfh=989) 1.2 mg/dL 0.2-1.2 BILIRUBIN DIRECT (BEAKER) (test mxqx=974) 0.5 mg/dL 0.1-0.5 ALKALINE PHOSPHATASE (BEAKER) (test cjhr=637) 81 U/L 40-150 AST (SGOT) (BEAKER) (test axgv=706) 13 U/L 5-34 ALT (SGPT) (BEAKER) (test jfnk=770) 6 U/L 6-55 [id number] 03:53:00 Test Item Value Reference Range Comments AMYLASE (BEAKER) (test ftks=330) 383 U/L 25-125 [id number] 03:53:00 Test Item Value Reference Range Comments LIPASE (BEAKER) (test kbpf=721) 266 U/L 8-78 C-REACTIVE [id number] 03:53:00 Test Item Value Reference Range Comments C-REACTIVE PROTEIN (BEAKER) (test qulm=092) 0.23 mg/dL 0.00-0.50 CBC W/PLT COUNT & AUTO [id number] 03:38:00 Test Item Value Reference Range Comments WHITE BLOOD CELL COUNT (BEAKER) (test hctf=668) 10.7 K/ L 3.5-10.5 RED BLOOD CELL COUNT (BEAKER) (test uwre=521) 4.45 M/ L 4.63-6.08 HEMOGLOBIN (BEAKER) (test vnrr=116) 13.6 GM/DL 13.7-17.5 HEMATOCRIT (BEAKER) (test djec=033) 40.4 % 40.1-51.0 MEAN CORPUSCULAR VOLUME (BEAKER) (test bvbo=019) 90.8 fL 79.0-92.2 MEAN CORPUSCULAR HEMOGLOBIN (BEAKER) (test 30.6 pg 25.7-32.2 hobw=969) MEAN CORPUSCULAR HEMOGLOBIN CONC (BEAKER) (test 33.7 GM/DL 32.3-36.5 ggcy=299) RED CELL DISTRIBUTION WIDTH (BEAKER) (test 15.5 % 11.6-14.4 ypit=309) PLATELET COUNT (BEAKER) (test cppt=523) 277 K/CU MM 150-450 MEAN PLATELET VOLUME (BEAKER) (test jtmt=797) 9.7 fL 9.4-12.4 NUCLEATED RED BLOOD CELLS (BEAKER) (test 0 /100 WBC 0-0 wrmt=454) NEUTROPHILS RELATIVE PERCENT (BEAKER) (test 70 % xrtw=881) LYMPHOCYTES RELATIVE PERCENT (BEAKER) (test 18 % dvih=670) MONOCYTES RELATIVE PERCENT (BEAKER) (test 11 % lhay=887) EOSINOPHILS RELATIVE PERCENT (BEAKER) (test 0 % bjzb=998) BASOPHILS RELATIVE PERCENT (BEAKER) (test 0 % ibkv=684) NEUTROPHILS ABSOLUTE COUNT (BEAKER) (test 7.46 K/ L 1.78-5.38 alub=014) LYMPHOCYTES ABSOLUTE COUNT (BEAKER) (test 1.93 K/ L 1.32-3.57 uhvx=261) MONOCYTES ABSOLUTE COUNT (BEAKER) (test 1.17 K/ L 0.30-0.82 mljk=523) EOSINOPHILS ABSOLUTE COUNT (BEAKER) (test 0.02 K/ L 0.04-0.54 wgzv=194) BASOPHILS ABSOLUTE COUNT (BEAKER) (test 0.03 K/ L 0.01-0.08 jcuw=213) IMMATURE GRANULOCYTES-RELATIVE PERCENT (BEAKER) 0 % 0-1 (test gijy=2201) COMPREHENSIVE METABOLIC [id number] 14:02:00 Test Item Value Reference Range Comments TOTAL PROTEIN (BEAKER) 7.8 gm/dL 6.0-8.3 (test ankp=518) ALBUMIN (BEAKER) (test 3.9 g/dL 3.5-5.0 pfwy=5199) ALKALINE PHOSPHATASE 62 U/L 40-150 (BEAKER) (test njqf=587) BILIRUBIN TOTAL (BEAKER) 0.3 mg/dL 0.2-1.2 (test ccri=218) SODIUM (BEAKER) (test 139 meq/L 136-145 kbti=191) POTASSIUM (BEAKER) (test 4.2 meq/L 3.5-5.1 devy=911) CHLORIDE (BEAKER) (test 104 meq/L 98-107 axny=945) CO2 (BEAKER) (test 26 meq/L 22-29 qxwc=139) BLOOD UREA NITROGEN 9 mg/dL 7-21 (BEAKER) (test wdna=257) CREATININE (BEAKER) (test 0.64 mg/dL 0.57-1.25 mqzn=825) GLUCOSE RANDOM (BEAKER) 78 mg/dL 70-105 (test nqzj=198) CALCIUM (BEAKER) (test 9.5 mg/dL 8.4-10.2 wztu=356) AST (SGOT) (BEAKER) (test 18 U/L 5-34 jzbw=561) ALT (SGPT) (BEAKER) (test 8 U/L 6-55 drrc=292) EGFR (BEAKER) (test 141 mL/min/1.73 sq ESTIMATED GFR IS NOT fvyh=2710) m ACCURATE CREATININE CLEARANCE IN PREDICTING GLOMERULAR FILTRATION RATE. ESTIMATED GFR IS NOT APPLICABLE FOR DIALYSIS PATIENTS. COMPREHENSIVE METABOLIC [id number] 06:08:00 Test Item Value Reference Range Comments TOTAL PROTEIN (BEAKER) 7.0 gm/dL 6.0-8.3 Specimen slightly (test vgsp=799) hemolyzed ALBUMIN (BEAKER) (test 3.4 g/dL 3.5-5.0 Specimen slightly uxhl=2336) hemolyzed ALKALINE PHOSPHATASE 58 U/L 40-150 (BEAKER) (test ossa=661) BILIRUBIN TOTAL (BEAKER) 0.4 mg/dL 0.2-1.2 Specimen slightly (test lckw=243) hemolyzed SODIUM (BEAKER) (test 139 meq/L 136-145 ctkd=925) POTASSIUM (BEAKER) (test 4.5 meq/L 3.5-5.1 Specimen slightly jtrb=500) hemolyzed CHLORIDE (BEAKER) (test 103 meq/L 98-107 yutn=747) CO2 (BEAKER) (test 27 meq/L 22-29 aisj=881) BLOOD UREA NITROGEN 2 mg/dL 7-21 (BEAKER) (test adhk=510) CREATININE (BEAKER) (test 0.55 mg/dL 0.57-1.25 Specimen slightly iqgg=299) hemolyzed GLUCOSE RANDOM (BEAKER) 85 mg/dL 70-105 (test atnc=453) CALCIUM (BEAKER) (test 9.3 mg/dL 8.4-10.2 lcgb=340) AST (SGOT) (BEAKER) (test 18 U/L 5-34 Specimen slightly aazp=244) hemolyzed ALT (SGPT) (BEAKER) (test 8 U/L 6-55 Specimen slightly odkr=506) hemolyzed EGFR (BEAKER) (test 168 mL/min/1.73 sq ESTIMATED GFR IS NOT ktkh=2268) m ACCURATE CREATININE CLEARANCE IN PREDICTING GLOMERULAR FILTRATION RATE. ESTIMATED GFR IS NOT APPLICABLE FOR DIALYSIS PATIENTS. CBC (HEMOGRAM ONLY)2017-05-17 05:20:00 Test Item Value Reference Range Comments WHITE BLOOD CELL COUNT (BEAKER) (test jmkd=971) 6.4 K/ L 3.5-10.5 RED BLOOD CELL COUNT (BEAKER) (test acli=082) 3.84 M/ L 4.63-6.08 HEMOGLOBIN (BEAKER) (test mtfi=153) 11.5 GM/DL 13.7-17.5 HEMATOCRIT (BEAKER) (test oiar=276) 35.2 % 40.1-51.0 MEAN CORPUSCULAR VOLUME (BEAKER) (test dtxj=629) 91.7 fL 79.0-92.2 MEAN CORPUSCULAR HEMOGLOBIN (BEAKER) (test 29.9 pg 25.7-32.2 ajse=284) MEAN CORPUSCULAR HEMOGLOBIN CONC (BEAKER) (test 32.7 GM/DL 32.3-36.5 wkte=731) RED CELL DISTRIBUTION WIDTH (BEAKER) (test 14.1 % 11.6-14.4 zxay=967) PLATELET COUNT (BEAKER) (test egul=174) 434 K/CU MM 150-450 MEAN PLATELET VOLUME (BEAKER) (test nkkc=414) 9.4 fL 9.4-12.4 NUCLEATED RED BLOOD CELLS (BEAKER) (test 0 /100 WBC 0-0 eyew=537) HEPATIC FUNCTION [id number] 11:22:00 Test Item Value Reference Range Comments TOTAL PROTEIN (BEAKER) (test vpmy=690) 6.9 gm/dL 6.0-8.3 ALBUMIN (BEAKER) (test phle=9036) 3.4 g/dL 3.5-5.0 BILIRUBIN TOTAL (BEAKER) (test wver=109) 0.4 mg/dL 0.2-1.2 BILIRUBIN DIRECT (BEAKER) (test yxeb=936) 0.2 mg/dL 0.1-0.5 ALKALINE PHOSPHATASE (BEAKER) (test bkuk=620) 65 U/L 40-150 AST (SGOT) (BEAKER) (test xxfq=740) 14 U/L 5-34 ALT (SGPT) (BEAKER) (test mntp=526) 8 U/L 6-55 CBC W/PLT COUNT & AUTO [id number] 11:16:00 Test Item Value Reference Range Comments WHITE BLOOD CELL COUNT (BEAKER) (test wwfc=204) 7.0 K/ L 3.5-10.5 RED BLOOD CELL COUNT (BEAKER) (test trsi=334) 3.90 M/ L 4.63-6.08 HEMOGLOBIN (BEAKER) (test dvdq=555) 11.9 GM/DL 13.7-17.5 HEMATOCRIT (BEAKER) (test czdn=946) 35.7 % 40.1-51.0 MEAN CORPUSCULAR VOLUME (BEAKER) (test eliz=152) 91.5 fL 79.0-92.2 MEAN CORPUSCULAR HEMOGLOBIN (BEAKER) (test 30.5 pg 25.7-32.2 kbob=160) MEAN CORPUSCULAR HEMOGLOBIN CONC (BEAKER) (test 33.3 GM/DL 32.3-36.5 egef=630) RED CELL DISTRIBUTION WIDTH (BEAKER) (test 14.0 % 11.6-14.4 kowr=095) PLATELET COUNT (BEAKER) (test nzzn=201) 452 K/CU MM 150-450 MEAN PLATELET VOLUME (BEAKER) (test qbuk=014) 9.0 fL 9.4-12.4 NUCLEATED RED BLOOD CELLS (BEAKER) (test 0 /100 WBC 0-0 nyds=083) NEUTROPHILS RELATIVE PERCENT (BEAKER) (test 59 % uzri=432) LYMPHOCYTES RELATIVE PERCENT (BEAKER) (test 21 % clqp=514) MONOCYTES RELATIVE PERCENT (BEAKER) (test 8 % kwjs=198) EOSINOPHILS RELATIVE PERCENT (BEAKER) (test 10 % kmre=529) BASOPHILS RELATIVE PERCENT (BEAKER) (test 1 % tnep=921) NEUTROPHILS ABSOLUTE COUNT (BEAKER) (test 4.12 K/ L 1.78-5.38 qflw=954) LYMPHOCYTES ABSOLUTE COUNT (BEAKER) (test 1.45 K/ L 1.32-3.57 uvao=039) MONOCYTES ABSOLUTE COUNT (BEAKER) (test 0.58 K/ L 0.30-0.82 ahhl=356) EOSINOPHILS ABSOLUTE COUNT (BEAKER) (test 0.70 K/ L 0.04-0.54 malk=342) BASOPHILS ABSOLUTE COUNT (BEAKER) (test 0.10 K/ L 0.01-0.08 bqyp=553) IMMATURE GRANULOCYTES-RELATIVE PERCENT (BEAKER) 0 % 0-1 (test ufnn=4212) BASIC METABOLIC [id number] 06:43:00 Test Item Value Reference Range Comments SODIUM (BEAKER) (test 138 meq/L 136-145 jetw=867) POTASSIUM (BEAKER) (test 3.5 meq/L 3.5-5.1 dfsd=660) CHLORIDE (BEAKER) (test 100 meq/L 98-107 mpkn=514) CO2 (BEAKER) (test 27 meq/L 22-29 ksyd=448) BLOOD UREA NITROGEN 2 mg/dL 7-21 (BEAKER) (test jqro=059) CREATININE (BEAKER) (test 0.53 mg/dL 0.57-1.25 supn=574) GLUCOSE RANDOM (BEAKER) 82 mg/dL 70-105 (test ozrf=479) CALCIUM (BEAKER) (test 9.0 mg/dL 8.4-10.2 cbdm=296) EGFR (BEAKER) (test 175 mL/min/1.73 sq m ESTIMATED GFR IS NOT cwne=5280) ACCURATE CREATININE CLEARANCE IN PREDICTING GLOMERULAR FILTRATION RATE. ESTIMATED GFR IS NOT APPLICABLE FOR DIALYSIS PATIENTS. BASIC METABOLIC [id number] 05:14:00 Test Item Value Reference Range Comments SODIUM (BEAKER) (test 132 meq/L 136-145 ugec=727) POTASSIUM (BEAKER) (test 3.8 meq/L 3.5-5.1 vkla=074) CHLORIDE (BEAKER) (test 101 meq/L 98-107 nzts=542) CO2 (BEAKER) (test 18 meq/L 22-29 yngz=633) BLOOD UREA NITROGEN 4 mg/dL 7-21 (BEAKER) (test tdge=054) CREATININE (BEAKER) (test 0.52 mg/dL 0.57-1.25 lmkx=217) GLUCOSE RANDOM (BEAKER) 58 mg/dL 70-105 (test nqlg=651) CALCIUM (BEAKER) (test 8.7 mg/dL 8.4-10.2 ybyx=444) EGFR (BEAKER) (test 179 mL/min/1.73 sq m ESTIMATED GFR IS NOT jryv=6733) ACCURATE CREATININE CLEARANCE IN PREDICTING GLOMERULAR FILTRATION RATE. ESTIMATED GFR IS NOT APPLICABLE FOR DIALYSIS PATIENTS. CBC (HEMOGRAM ONLY)2017-05-15 04:57:00 Test Item Value Reference Range Comments WHITE BLOOD CELL COUNT (BEAKER) (test kstc=186) 13.4 K/ L 3.5-10.5 RED BLOOD CELL COUNT (BEAKER) (test tafh=321) 3.81 M/ L 4.63-6.08 HEMOGLOBIN (BEAKER) (test eooi=850) 11.4 GM/DL 13.7-17.5 HEMATOCRIT (BEAKER) (test pifc=090) 35.1 % 40.1-51.0 MEAN CORPUSCULAR VOLUME (BEAKER) (test fzzu=389) 92.1 fL 79.0-92.2 MEAN CORPUSCULAR HEMOGLOBIN (BEAKER) (test 29.9 pg 25.7-32.2 ezzb=297) MEAN CORPUSCULAR HEMOGLOBIN CONC (BEAKER) (test 32.5 GM/DL 32.3-36.5 ymac=104) RED CELL DISTRIBUTION WIDTH (BEAKER) (test 14.3 % 11.6-14.4 rjek=226) PLATELET COUNT (BEAKER) (test kyht=060) 502 K/CU MM 150-450 MEAN PLATELET VOLUME (BEAKER) (test lrpe=780) 9.6 fL 9.4-12.4 NUCLEATED RED BLOOD CELLS (BEAKER) (test 0 /100 WBC 0-0 evyg=725) LIPID [id number] 05:00:00 Test Item Value Reference Range Comments TRIGLYCERIDES (BEAKER) (test ifpm=423) 71 mg/dL CHOLESTEROL (BEAKER) (test symo=940) 108 mg/dL HDL CHOLESTEROL (BEAKER) (test uxku=744) 22 mg/dL LDL CHOLESTEROL CALCULATED (BEAKER) (test 72 mg/dL wdpo=955) Triglyceride Reference Range: Low Risk <150 Borderline 150- 199 High Risk 200-499 Very High Risk >=500Cholesterol Reference Range: Low Risk <200 Borderline 200-239 High Risk > 240HDL Cholesterol Reference Range: Low Risk >=60 High Risk <40LDL Cholesterol Reference Range: Optimal <100 Near Optimal 100-129 Borderline 130-159 High 160-189 Very High >=190BASIC METABOLIC [id number] 05:00:00 Test Item Value Reference Range Comments SODIUM (BEAKER) (test 133 meq/L 136-145 onhx=007) POTASSIUM (BEAKER) (test 4.1 meq/L 3.5-5.1 qjla=947) CHLORIDE (BEAKER) (test 105 meq/L 98-107 rkve=715) CO2 (BEAKER) (test 17 meq/L 22-29 ssgr=101) BLOOD UREA NITROGEN 8 mg/dL 7-21 (BEAKER) (test sdnf=194) CREATININE (BEAKER) (test 0.51 mg/dL 0.57-1.25 rwam=419) GLUCOSE RANDOM (BEAKER) 54 mg/dL 70-105 (test qwnx=224) CALCIUM (BEAKER) (test 8.4 mg/dL 8.4-10.2 cvdg=923) EGFR (BEAKER) (test 183 mL/min/1.73 sq m ESTIMATED GFR IS NOT zwih=5232) ACCURATE CREATININE CLEARANCE IN PREDICTING GLOMERULAR FILTRATION RATE. ESTIMATED GFR IS NOT APPLICABLE FOR DIALYSIS PATIENTS. HEPATIC FUNCTION [id number] 05:00:00 Test Item Value Reference Range Comments TOTAL PROTEIN (BEAKER) (test uhrd=823) 6.3 gm/dL 6.0-8.3 ALBUMIN (BEAKER) (test ovyw=9318) 3.2 g/dL 3.5-5.0 BILIRUBIN TOTAL (BEAKER) (test aksk=888) 0.7 mg/dL 0.2-1.2 BILIRUBIN DIRECT (BEAKER) (test iycb=220) 0.3 mg/dL 0.1-0.5 ALKALINE PHOSPHATASE (BEAKER) (test hnca=219) 62 U/L 40-150 AST (SGOT) (BEAKER) (test rkvb=212) 13 U/L 5-34 ALT (SGPT) (BEAKER) (test yebf=362) 9 U/L 6-55 [id number] 05:00:00 Test Item Value Reference Range Comments LIPASE (BEAKER) (test etsg=173) 1007 U/L 8-78 CBC (HEMOGRAM ONLY)2017-05-14 04:39:00 Test Item Value Reference Range Comments WHITE BLOOD CELL COUNT (BEAKER) (test xmbr=722) 16.6 K/ L 3.5-10.5 RED BLOOD CELL COUNT (BEAKER) (test bowp=159) 3.98 M/ L 4.63-6.08 HEMOGLOBIN (BEAKER) (test tvho=576) 12.0 GM/DL 13.7-17.5 HEMATOCRIT (BEAKER) (test sstj=240) 37.2 % 40.1-51.0 MEAN CORPUSCULAR VOLUME (BEAKER) (test dznu=138) 93.5 fL 79.0-92.2 MEAN CORPUSCULAR HEMOGLOBIN (BEAKER) (test 30.2 pg 25.7-32.2 zzhc=122) MEAN CORPUSCULAR HEMOGLOBIN CONC (BEAKER) (test 32.3 GM/DL 32.3-36.5 kupz=216) RED CELL DISTRIBUTION WIDTH (BEAKER) (test 14.5 % 11.6-14.4 ozpd=085) PLATELET COUNT (BEAKER) (test jyvw=751) 527 K/CU MM 150-450 MEAN PLATELET VOLUME (BEAKER) (test ugtr=951) 9.5 fL 9.4-12.4 NUCLEATED RED BLOOD CELLS (BEAKER) (test 0 /100 WBC 0-0 zsyu=311) MR, ABDOMEN, [id number] 12:25:00FINAL REPORT MRI of the abdomen, MRCP. [...] MDReport Verified Date/Time: 03/13/2017 12:25:41 Reading Location: [facility] C013X [facility] Reading Room Electronically signed by: KIKO VEE M.D. on 12:25 [facility] MET[facility]OL[facility] [id number] 05:05:00 Test Item Value Reference Range Comments SODIUM (BEAKER) (test 139 meq/L 136-145 msdl=350) POTASSIUM (BEAKER) (test 3.7 meq/L 3.5-5.1 yirt=830) CHLORIDE (BEAKER) (test 108 meq/L 98-107 wdwk=512) CO2 (BEAKER) (test 22 meq/L 22-29 cjlt=849) BLOOD UREA NITROGEN 4 mg/dL 7-21 (BEAKER) (test leur=887) CREATININE (BEAKER) (test 0.58 mg/dL 0.57-1.25 ugaf=267) GLUCOSE RANDOM (BEAKER) 95 mg/dL 70-105 (test eqpf=374) CALCIUM (BEAKER) (test 8.5 mg/dL 8.4-10.2 seog=823) EGFR (BEAKER) (test 158 mL/min/1.73 sq m ESTIMATED GFR IS NOT vlnl=4935) ACCURATE CREATININE CLEARANCE IN PREDICTING GLOMERULAR FILTRATION RATE. ESTIMATED GFR IS NOT APPLICABLE FOR DIALYSIS PATIENTS. CBC W/PLT COUNT & AUTO [id number] 04:49:00 Test Item Value Reference Range Comments WHITE BLOOD CELL COUNT (BEAKER) (test aqzk=690) 6.3 K/ L 3.5-10.5 RED BLOOD CELL COUNT (BEAKER) (test jiwt=996) 4.32 M/ L 4.63-6.08 HEMOGLOBIN (BEAKER) (test hxja=512) 13.7 GM/DL 13.7-17.5 HEMATOCRIT (BEAKER) (test zsie=693) 40.3 % 40.1-51.0 MEAN CORPUSCULAR VOLUME (BEAKER) (test arra=554) 93.3 fL 79.0-92.2 MEAN CORPUSCULAR HEMOGLOBIN (BEAKER) (test 31.7 pg 25.7-32.2 nfqw=961) MEAN CORPUSCULAR HEMOGLOBIN CONC (BEAKER) (test 34.0 GM/DL 32.3-36.5 lvlq=327) RED CELL DISTRIBUTION WIDTH (BEAKER) (test 11.9 % 11.6-14.4 uvnd=417) PLATELET COUNT (BEAKER) (test cktl=909) 286 K/CU MM 150-450 MEAN PLATELET VOLUME (BEAKER) (test rpnh=022) 9.4 fL 9.4-12.4 NUCLEATED RED BLOOD CELLS (BEAKER) (test 0 /100 WBC 0-0 raoo=633) NEUTROPHILS RELATIVE PERCENT (BEAKER) (test 51 % mkvz=504) LYMPHOCYTES RELATIVE PERCENT (BEAKER) (test 31 % pfao=438) MONOCYTES RELATIVE PERCENT (BEAKER) (test 11 % kkvc=931) EOSINOPHILS RELATIVE PERCENT (BEAKER) (test 6 % odyp=802) BASOPHILS RELATIVE PERCENT (BEAKER) (test 1 % qslo=222) NEUTROPHILS ABSOLUTE COUNT (BEAKER) (test 3.21 K/ L 1.78-5.38 cymi=909) LYMPHOCYTES ABSOLUTE COUNT (BEAKER) (test 1.91 K/ L 1.32-3.57 xtpw=841) MONOCYTES ABSOLUTE COUNT (BEAKER) (test 0.68 K/ L 0.30-0.82 zvll=077) EOSINOPHILS ABSOLUTE COUNT (BEAKER) (test 0.40 K/ L 0.04-0.54 uuzg=372) BASOPHILS ABSOLUTE COUNT (BEAKER) (test 0.04 K/ L 0.01-0.08 yyhe=412) IMMATURE GRANULOCYTES-RELATIVE PERCENT (BEAKER) 1 % 0-1 (test hkvd=8636) CBC W/PLT COUNT & AUTO [id number] 04:52:00 Test Item Value Reference Range Comments WHITE BLOOD CELL COUNT (BEAKER) (test oped=041) 6.2 K/ L 3.5-10.5 RED BLOOD CELL COUNT (BEAKER) (test tctn=490) 4.31 M/ L 4.63-6.08 HEMOGLOBIN (BEAKER) (test gkgf=441) 13.7 GM/DL 13.7-17.5 HEMATOCRIT (BEAKER) (test uzrj=086) 41.1 % 40.1-51.0 MEAN CORPUSCULAR VOLUME (BEAKER) (test ppbp=909) 95.4 fL 79.0-92.2 MEAN CORPUSCULAR HEMOGLOBIN (BEAKER) (test 31.8 pg 25.7-32.2 lruv=456) MEAN CORPUSCULAR HEMOGLOBIN CONC (BEAKER) (test 33.3 GM/DL 32.3-36.5 vwhq=657) RED CELL DISTRIBUTION WIDTH (BEAKER) (test 12.1 % 11.6-14.4 ndec=985) PLATELET COUNT (BEAKER) (test ccni=193) 295 K/CU MM 150-450 MEAN PLATELET VOLUME (BEAKER) (test ktfl=384) 9.5 fL 9.4-12.4 NUCLEATED RED BLOOD CELLS (BEAKER) (test 0 /100 WBC 0-0 yfdt=358) NEUTROPHILS RELATIVE PERCENT (BEAKER) (test 51 % cffq=277) LYMPHOCYTES RELATIVE PERCENT (BEAKER) (test 31 % puwh=203) MONOCYTES RELATIVE PERCENT (BEAKER) (test 11 % ddfn=156) EOSINOPHILS RELATIVE PERCENT (BEAKER) (test 7 % sabc=142) BASOPHILS RELATIVE PERCENT (BEAKER) (test 1 % bfew=768) NEUTROPHILS ABSOLUTE COUNT (BEAKER) (test 3.17 K/ L 1.78-5.38 uqbw=766) LYMPHOCYTES ABSOLUTE COUNT (BEAKER) (test 1.89 K/ L 1.32-3.57 drry=835) MONOCYTES ABSOLUTE COUNT (BEAKER) (test 0.65 K/ L 0.30-0.82 qzvs=109) EOSINOPHILS ABSOLUTE COUNT (BEAKER) (test 0.41 K/ L 0.04-0.54 lhqs=376) BASOPHILS ABSOLUTE COUNT (BEAKER) (test 0.05 K/ L 0.01-0.08 fdkz=340) IMMATURE GRANULOCYTES-RELATIVE PERCENT (BEAKER) 1 % 0-1 (test eplr=5616) COMPREHENSIVE METABOLIC [id number] 11:20:00 Test Item Value Reference Range Comments TOTAL PROTEIN (BEAKER) 7.2 gm/dL 6.0-8.3 (test beej=907) ALBUMIN (BEAKER) (test 3.7 g/dL 3.5-5.0 juck=7526) ALKALINE PHOSPHATASE 73 U/L 40-150 (BEAKER) (test xurz=351) BILIRUBIN TOTAL (BEAKER) 0.6 mg/dL 0.2-1.2 (test aeyi=681) SODIUM (BEAKER) (test 135 meq/L 136-145 glle=831) POTASSIUM (BEAKER) (test 5.0 meq/L 3.5-5.1 pcvd=808) CHLORIDE (BEAKER) (test 109 meq/L 98-107 bgqt=910) CO2 (BEAKER) (test 14 meq/L 22-29 ijci=610) BLOOD UREA NITROGEN 6 mg/dL 7-21 (BEAKER) (test bocz=400) CREATININE (BEAKER) (test 0.62 mg/dL 0.57-1.25 nadl=602) GLUCOSE RANDOM (BEAKER) 45 mg/dL 70-105 (test dthx=521) CALCIUM (BEAKER) (test 8.6 mg/dL 8.4-10.2 fznh=653) AST (SGOT) (BEAKER) (test 17 U/L 5-34 uvlm=426) ALT (SGPT) (BEAKER) (test 14 U/L 6-55 ndkp=283) EGFR (BEAKER) (test 146 mL/min/1.73 sq ESTIMATED GFR IS NOT xdft=8977) m ACCURATE CREATININE CLEARANCE IN PREDICTING GLOMERULAR FILTRATION RATE. ESTIMATED GFR IS NOT APPLICABLE FOR DIALYSIS PATIENTS. CBC W/PLT COUNT & AUTO [id number] 09:54:00 Test Item Value Reference Range Comments WHITE BLOOD CELL COUNT (BEAKER) (test fbsb=561) 7.4 K/ L 3.5-10.5 RED BLOOD CELL COUNT (BEAKER) (test hymm=156) 4.32 M/ L 4.63-6.08 HEMOGLOBIN (BEAKER) (test ocqv=663) 13.6 GM/DL 13.7-17.5 HEMATOCRIT (BEAKER) (test wcjg=413) 41.8 % 40.1-51.0 MEAN CORPUSCULAR VOLUME (BEAKER) (test fpya=858) 96.8 fL 79.0-92.2 MEAN CORPUSCULAR HEMOGLOBIN (BEAKER) (test 31.5 pg 25.7-32.2 dblh=677) MEAN CORPUSCULAR HEMOGLOBIN CONC (BEAKER) (test 32.5 GM/DL 32.3-36.5 mlgc=809) RED CELL DISTRIBUTION WIDTH (BEAKER) (test 12.1 % 11.6-14.4 scjo=956) PLATELET COUNT (BEAKER) (test cwhc=594) 277 K/CU MM 150-450 MEAN PLATELET VOLUME (BEAKER) (test sceb=550) 9.7 fL 9.4-12.4 NUCLEATED RED BLOOD CELLS (BEAKER) (test 0 /100 WBC 0-0 zskk=976) NEUTROPHILS RELATIVE PERCENT (BEAKER) (test 57 % fccc=866) LYMPHOCYTES RELATIVE PERCENT (BEAKER) (test 29 % lgbu=461) MONOCYTES RELATIVE PERCENT (BEAKER) (test 8 % bimm=180) EOSINOPHILS RELATIVE PERCENT (BEAKER) (test 5 % riyn=703) BASOPHILS RELATIVE PERCENT (BEAKER) (test 1 % ivuv=881) NEUTROPHILS ABSOLUTE COUNT (BEAKER) (test 4.23 K/ L 1.78-5.38 aruw=883) LYMPHOCYTES ABSOLUTE COUNT (BEAKER) (test 2.10 K/ L 1.32-3.57 qxqu=537) MONOCYTES ABSOLUTE COUNT (BEAKER) (test 0.57 K/ L 0.30-0.82 osbk=031) EOSINOPHILS ABSOLUTE COUNT (BEAKER) (test 0.38 K/ L 0.04-0.54 aixx=388) BASOPHILS ABSOLUTE COUNT (BEAKER) (test 0.05 K/ L 0.01-0.08 mfje=855) IMMATURE GRANULOCYTES-RELATIVE PERCENT (BEAKER) 1 % 0-1 (test iuod=8998) (MANUAL DIFFERENTIAL)2017-03-11 09:54:00 Test Item Value Reference Range Comments TOTAL COUNTED (BEAKER) (test atmw=2162) WBC MORPHOLOGY (BEAKER) (test zlxf=206) Normal PLT MORPHOLOGY (BEAKER) (test catb=211) Normal RBC MORPHOLOGY (BEAKER) (test xcfp=266) Normal CBC W/PLT COUNT & AUTO [id number] 09:09:00 Test Item Value Reference Range Comments WHITE BLOOD CELL COUNT (BEAKER) (test ssho=660) 8.9 K/ L 3.5-10.5 RED BLOOD CELL COUNT (BEAKER) (test clpx=102) 4.25 M/ L 4.63-6.08 HEMOGLOBIN (BEAKER) (test tnoe=164) 13.6 GM/DL 13.7-17.5 HEMATOCRIT (BEAKER) (test rsma=826) 40.7 % 40.1-51.0 MEAN CORPUSCULAR VOLUME (BEAKER) (test wujt=742) 95.8 fL 79.0-92.2 MEAN CORPUSCULAR HEMOGLOBIN (BEAKER) (test 32.0 pg 25.7-32.2 qjbf=774) MEAN CORPUSCULAR HEMOGLOBIN CONC (BEAKER) (test 33.4 GM/DL 32.3-36.5 jawq=628) RED CELL DISTRIBUTION WIDTH (BEAKER) (test 12.1 % 11.6-14.4 wsjz=405) PLATELET COUNT (BEAKER) (test twai=087) 274 K/CU MM 150-450 MEAN PLATELET VOLUME (BEAKER) (test aeoz=738) 9.8 fL 9.4-12.4 NUCLEATED RED BLOOD CELLS (BEAKER) (test 0 /100 WBC 0-0 bfje=332) NEUTROPHILS RELATIVE PERCENT (BEAKER) (test 62 % zpky=197) LYMPHOCYTES RELATIVE PERCENT (BEAKER) (test 24 % ujzj=070) MONOCYTES RELATIVE PERCENT (BEAKER) (test 7 % epaw=395) EOSINOPHILS RELATIVE PERCENT (BEAKER) (test 5 % ugix=491) BASOPHILS RELATIVE PERCENT (BEAKER) (test 1 % bmsk=948) NEUTROPHILS ABSOLUTE COUNT (BEAKER) (test 5.55 K/ L 1.78-5.38 zqri=539) LYMPHOCYTES ABSOLUTE COUNT (BEAKER) (test 2.14 K/ L 1.32-3.57 hpfz=823) MONOCYTES ABSOLUTE COUNT (BEAKER) (test 0.64 K/ L 0.30-0.82 gwlv=027) EOSINOPHILS ABSOLUTE COUNT (BEAKER) (test 0.48 K/ L 0.04-0.54 pyia=933) BASOPHILS ABSOLUTE COUNT (BEAKER) (test 0.07 K/ L 0.01-0.08 cqfm=318) IMMATURE GRANULOCYTES-RELATIVE PERCENT (BEAKER) 0 % 0-1 (test addf=7124) (MANUAL DIFFERENTIAL)2017-03-10 09:09:00 Test Item Value Reference Range Comments TOTAL COUNTED (BEAKER) (test fkqs=7235) WBC MORPHOLOGY (BEAKER) (test epru=726) Normal PLT MORPHOLOGY (BEAKER) (test dbrz=293) Normal RBC MORPHOLOGY (BEAKER) (test opgt=634) Normal COMPREHENSIVE METABOLIC [id number] 07:30:00 Test Item Value Reference Range Comments TOTAL PROTEIN (BEAKER) 6.8 gm/dL 6.0-8.3 (test zxlc=216) ALBUMIN (BEAKER) (test 3.6 g/dL 3.5-5.0 zesh=1970) ALKALINE PHOSPHATASE 77 U/L 40-150 (BEAKER) (test pgdp=278) BILIRUBIN TOTAL (BEAKER) 0.6 mg/dL 0.2-1.2 (test bylh=852) SODIUM (BEAKER) (test 136 meq/L 136-145 ynsk=007) POTASSIUM (BEAKER) (test 4.3 meq/L 3.5-5.1 znoy=566) CHLORIDE (BEAKER) (test 105 meq/L 98-107 kxit=241) CO2 (BEAKER) (test 19 meq/L 22-29 xnwv=648) BLOOD UREA NITROGEN 6 mg/dL 7-21 (BEAKER) (test dihl=785) CREATININE (BEAKER) (test 0.57 mg/dL 0.57-1.25 ekws=855) GLUCOSE RANDOM (BEAKER) 52 mg/dL 70-105 (test cpig=237) CALCIUM (BEAKER) (test 8.2 mg/dL 8.4-10.2 haer=830) AST (SGOT) (BEAKER) (test 17 U/L 5-34 xxso=278) ALT (SGPT) (BEAKER) (test 14 U/L 6-55 evyd=680) EGFR (BEAKER) (test 161 mL/min/1.73 sq ESTIMATED GFR IS NOT ecyy=1908) m ACCURATE CREATININE CLEARANCE IN PREDICTING GLOMERULAR FILTRATION RATE. ESTIMATED GFR IS NOT APPLICABLE FOR DIALYSIS PATIENTS. CBC W/PLT COUNT & AUTO [id number] 10:49:00 Test Item Value Reference Range Comments WHITE BLOOD CELL COUNT (BEAKER) (test oann=193) 6.9 K/ L 3.5-10.5 RED BLOOD CELL COUNT (BEAKER) (test ghqg=469) 3.83 M/ L 4.63-6.08 HEMOGLOBIN (BEAKER) (test ogif=363) 12.5 GM/DL 13.7-17.5 HEMATOCRIT (BEAKER) (test hdpz=144) 36.7 % 40.1-51.0 MEAN CORPUSCULAR VOLUME (BEAKER) (test nanr=195) 95.8 fL 79.0-92.2 MEAN CORPUSCULAR HEMOGLOBIN (BEAKER) (test 32.6 pg 25.7-32.2 udjv=433) MEAN CORPUSCULAR HEMOGLOBIN CONC (BEAKER) (test 34.1 GM/DL 32.3-36.5 avia=609) RED CELL DISTRIBUTION WIDTH (BEAKER) (test 12.4 % 11.6-14.4 slne=779) PLATELET COUNT (BEAKER) (test gfok=826) 267 K/CU MM 150-450 MEAN PLATELET VOLUME (BEAKER) (test ltlu=114) 9.7 fL 9.4-12.4 NUCLEATED RED BLOOD CELLS (BEAKER) (test 0 /100 WBC 0-0 dpeo=247) NEUTROPHILS RELATIVE PERCENT (BEAKER) (test 60 % lkou=534) LYMPHOCYTES RELATIVE PERCENT (BEAKER) (test 26 % qcim=792) MONOCYTES RELATIVE PERCENT (BEAKER) (test 7 % erwx=519) EOSINOPHILS RELATIVE PERCENT (BEAKER) (test 6 % mdll=033) BASOPHILS RELATIVE PERCENT (BEAKER) (test 1 % rlsi=429) NEUTROPHILS ABSOLUTE COUNT (BEAKER) (test 4.15 K/ L 1.78-5.38 gkvl=013) LYMPHOCYTES ABSOLUTE COUNT (BEAKER) (test 1.82 K/ L 1.32-3.57 gabu=736) MONOCYTES ABSOLUTE COUNT (BEAKER) (test 0.47 K/ L 0.30-0.82 fegf=267) EOSINOPHILS ABSOLUTE COUNT (BEAKER) (test 0.38 K/ L 0.04-0.54 eiof=264) BASOPHILS ABSOLUTE COUNT (BEAKER) (test 0.04 K/ L 0.01-0.08 blki=225) COMPREHENSIVE METABOLIC [id number] 10:45:00 Test Item Value Reference Range Comments TOTAL PROTEIN (BEAKER) 6.2 gm/dL 6.0-8.3 (test ptrh=189) ALBUMIN (BEAKER) (test 3.3 g/dL 3.5-5.0 rswf=3792) ALKALINE PHOSPHATASE 70 U/L 40-150 (BEAKER) (test zaio=919) BILIRUBIN TOTAL (BEAKER) 0.4 mg/dL 0.2-1.2 (test dkbq=237) SODIUM (BEAKER) (test 138 meq/L 136-145 luqq=617) POTASSIUM (BEAKER) (test 3.5 meq/L 3.5-5.1 lmwy=699) CHLORIDE (BEAKER) (test 109 meq/L 98-107 ibgs=644) CO2 (BEAKER) (test 23 meq/L 22-29 boba=445) BLOOD UREA NITROGEN 5 mg/dL 7-21 (BEAKER) (test msvv=521) CREATININE (BEAKER) (test 0.54 mg/dL 0.57-1.25 igci=267) GLUCOSE RANDOM (BEAKER) 77 mg/dL 70-105 (test pjla=585) CALCIUM (BEAKER) (test 7.6 mg/dL 8.4-10.2 rwtn=427) AST (SGOT) (BEAKER) (test 18 U/L 5-34 llzz=959) ALT (SGPT) (BEAKER) (test 15 U/L 6-55 ksuq=091) EGFR (BEAKER) (test 171 mL/min/1.73 sq ESTIMATED GFR IS NOT biwl=6448) m ACCURATE CREATININE CLEARANCE IN PREDICTING GLOMERULAR FILTRATION RATE. ESTIMATED GFR IS NOT APPLICABLE FOR DIALYSIS PATIENTS. [id number] 10:29:00 Test Item Value Reference Range Comments TRIGLYCERIDES (BEAKER) (test gbby=898) 58 mg/dL TRIGLYCERIDE REFERENCE RANGELow Risk <150Borderline Risk 150-199High Risk 200-499Very High Risk>=[id number] 10:29:00 Test Item Value Reference Range Comments MAGNESIUM (BEAKER) (test bsxg=450) 1.4 mg/dL 1.6-2.6 [id number] 10:29:00 Test Item Value Reference Range Comments LIPASE (BEAKER) (test pjxw=128) 536 U/L 8-78 PROTHROMBIN [id number] 10:22:00 Test Item Value Reference Range Comments PROTIME (BEAKER) (test pshn=990) 14.3 seconds 11.7-14.7 INR (BEAKER) (test tmim=621) 1.1 <=5.9 RECOMMENDED COUMADIN/WARFARIN INR THERAPY RANGESSTANDARD DOSE: 2.0 - 3.0 Includes: PROPHYLAXIS forvenous thrombosis, systemic embolization; TREATMENT for venous thrombosis and/or pulmonary embolus.HIGH RISK: Target INR is 2.5-3.5 for patients with mechanical heart valves.
--- OUTSIDE RECORDS SUMMARY | 2017-12-18 06:52 | XMS REPORT ---
[...] End Status Dosage System Date Date Apix[place] [facility] [place] [address]49 2.5 MG Orally Active not defined Tramadol HCl [facility] [place] [id number] 50 MG Orally Active 1 tablet every 6 hrs as needed Results No Known Results Summary Purpose eClinicalWorks Submission
--- NOTE | 2017-12-18 07:39 | ER ---
Nurse's Notes [facility] Name: Ankit Rosales Age: 37 yrs Sex: Male : 1980 Arrival Date: 12/18/2017 Time: 06:54 Bed 19 Private MD: Diagnosis: Right foot cellulitis Presentation: 12/18 07:03 Presenting complaint: Patient states: "I was here last week and dx with trench foot, jl7 did not finish taking the antibiotics because they made me sick and then had to go back to work and it's back.". Transition of care: patient was not received from another setting of care. Onset of symptoms was November 2017. Risk Assessment: Do you want to hurt yourself or someone else? Patient reports no desire to harm self or others. Initial Sepsis Screen: Does the patient meet any 2 criteria? No. Patient's initial sepsis screen is negative. Does the patient have a suspected source of infection? No. Patient's initial sepsis screen is negative. Care prior to arrival: None. 07:03 Method Of Arrival: Ambulatory 7 07:03 Acuity: KRAIG 3 jl7 Triage Assessment: 07:05 General: Appears in no apparent distress. uncomfortable, Behavior is calm, cooperative. jl7 Pain: Complains of pain in right foot Pain currently is 5 out of 10 on a pain scale. Pain:. Neuro: Level of Consciousness is awake, alert, obeys commands. Cardiovascular: Patient's skin is warm and dry. Respiratory: Airway is patent Respiratory effort is even, unlabored, Respiratory pattern is regular, symmetrical. Derm: Skin redness and abrasions noted to dorsum and toes of right foot. Skin is pink, warm \\T\\ dry. Historical: - Allergies: 07:05 NKDA; jl7 - Home Meds: 07:05 None [Active]; jl7 - PMHx: 07:05 Cirrhosis; GALLSTONES; left leg DVT; Pancreatitis; jl7 - Immunization history:: Adult Immunizations up to date. - Social history:: Smoking status: Patient uses tobacco products, smokes one pack cigarettes per day. Patient uses alcohol, on a daily basis. "One beer after work.". - Ebola Screening: : No symptoms or risks identified at this time. Screenin:08 Abuse screen: Denies threats or abuse. Denies injuries from another. Nutritional jl7 screening: No deficits noted. Tuberculosis screening: No symptoms or risk factors identified. Fall Risk None identified. Assessment: 07:20 General: Appears comfortable, Behavior is calm, cooperative. Pain: Complains of pain in aa5 right foot Pain does not radiate. Pain currently is 5 out of 10 on a pain scale. Quality of pain is described as aching, Pain began approximately 2 weeks ago Is continuous. Neuro: Level of Consciousness is awake, alert, obeys commands, Oriented to person, place, time, situation. Cardiovascular: No deficits noted. Respiratory: Airway is patent Respiratory effort is even, unlabored, Respiratory pattern is regular, symmetrical. GI: Pt reports Bactrim and doxycycline prescribed on 12/06/17 caused nausea and vomiting, pt states "I only took the antibiotics about 3 days but I'm still taking the cream they prescribed me". Pt currently denies any recent nausea or vomiting, reports N/V resolved 2 days after stopping antibiotics. : No signs and/or symptoms were reported regarding the genitourinary system. EENT: No signs and/or symptoms were reported regarding the EENT system. Derm: Skin is pink, warm \\T\\ dry. Redness noted to right toes and dorsum of right foot, mild swelling noted to right toes. Pt states "I use work boots about 14 hours a day so I think I need an extended amount of time off so it can heal". Musculoskeletal: Range of motion: intact in all extremities. 07:48 Reassessment: Patient is alert, oriented x 3, equal unlabored respirations, skin aa5 warm/dry/pink. Vital Signs: 07:05 BP 134 / 85; Pulse 100; Resp 16 S; Temp 98.3(O); Pulse Ox 99% on R/A; Weight 57.61 kg jl7 (R); Height 5 ft. 6 in. (167.64 cm) (R); Pain 5/10; 07:45 BP 128 / 80; Pulse 91; Resp 18 S; Pulse Ox 99% on R/A; Pain 5/10; aa5 07:05 Body Mass Index 20.50 (57.61 kg, 167.64 cm) jl7 ED Course: 06:54 Patient arrived in ED. am2 07:02 Shanell Brooks RN is Primary Nurse. jl7 07:04 Triage completed. jl7 07:05 Arm band placed on right wrist. jl7 07:08 Patient has correct armband on for positive identification. Bed in low position. Call 7 light in reach. Side rails up X 1. Pulse ox on. NIBP on. 07:09 Mirlande Barraza, RN is Primary Nurse. aa5 07:17 Jaxon Rothman MD is Attending Physician. kdr 07:32 No provider procedures requiring assistance completed. aa5 07:48 Patient did not have IV access during this emergency room visit. aa5 Administered Medications: No medications were administered Outcome: 07:38 Discharge ordered by . kdr 07:47 Discharged to home ambulatory. aa5 07:47 Condition: stable 07:47 Discharge instructions given to patient, Instructed on discharge instructions, follow up and referral plans. medication usage, Demonstrated understanding of instructions, follow-up care, medications, Prescriptions given X 5 07:49 Patient left the ED. aa5 Signatures: Jaxon Rothman MD MD kdr Calderon, Audri, RN RN aa5 Shanell Brooks RN RN jl7 Lea Toth am2 Corrections: (The following items were deleted from the chart) 07:50 07:47 Discharge instructions given to patient, Instructed on discharge instructions, aa5 follow up and referral plans. medication usage, Demonstrated understanding of instructions, follow-up care, medications, Prescriptions given X 4, aa5
--- NOTE | 2017-12-18 07:39 | EDPHYS ---
Physician Documentation [facility] Name: Ankit Rosales Age: 37 yrs Sex: Male : 1980 Arrival Date: 12/18/2017 Time: 06:54 Bed 19 Private MD: ED Physician Jaxon Rothman HPI: 12/18 07:31 This 37 yrs old Male presents to ER via Ambulatory with complaints of Foot kdr Pain. 07:31 The patient presents with pain, that is chronic, a rash, tenderness. The complaints kdr affect the right foot. Context: The problem was sustained at home, The patient was seen here on the 8th of this month for the same problem. He states that after taking the medications for a day or so, he started to vomit and stopped taking the medications. He indicates that what really helped his foot was to have it out of his work boot for an extended period. He states that he only had two days off from work and so he had to put his foot back in his boot for 13+ hours per day. Onset: The symptoms/episode began/occurred gradually, at an unknown time. Ongoing problem for some time. Modifying factors: The symptoms are alleviated by nothing, Having foot out of work boot the symptoms are aggravated by Wearing work boots. Associated signs and symptoms: The patient has no apparent associated signs or symptoms. Severity of symptoms: At their worst the symptoms were mild, just prior to arrival, in the emergency department the symptoms are unchanged. The patient has not experienced similar symptoms in the past. The patient has been recently seen by a physician: The patient has been recently seen at the [facility] Emergency Department, a couple of weeks ago. Historical: - Allergies: 07:05 NKDA; jl7 - Home Meds: 07:05 None [Active]; jl7 - PMHx: 07:05 Cirrhosis; GALLSTONES; left leg DVT; Pancreatitis; jl7 - Immunization history:: Adult Immunizations up to date. - Social history:: Smoking status: Patient uses tobacco products, smokes one pack cigarettes per day. Patient uses alcohol, on a daily basis. "One beer after work.". - Ebola Screening: : No symptoms or risks identified at this time. ROS: 07:31 MS/extremity: Positive for erythema, pain, rash, tenderness, warmth, of the dorsum of kdr right foot, right first toe, right second toe, right third toe, right fourth toe and right fifth toe, Negative for decreased range of motion, deformity, ecchymosis, laceration, paresthesias, puncture, swelling. 07:31 Constitutional: Negative for fever, chills, and weight loss, Eyes: Negative for injury, pain, redness, and discharge. Exam: 07:31 Constitutional: This is a well developed, well nourished patient who is awake, alert, kdr and in no acute distress. 07:31 Musculoskeletal/extremity: Extremities: grossly normal except: noted in the dorsum of right foot, right first toe, right second toe, right third toe, right fourth toe and right fifth toe: erythema, pain, swelling, tenderness. Vital Signs: 07:05 BP 134 / 85; Pulse 100; Resp 16 S; Temp 98.3(O); Pulse Ox 99% on R/A; Weight 57.61 kg jl7 (R); Height 5 ft. 6 in. (167.64 cm) (R); Pain 5/10; 07:45 BP 128 / 80; Pulse 91; Resp 18 S; Pulse Ox 99% on R/A; Pain 5/10; aa5 07:05 Body Mass Index 20.50 (57.61 kg, 167.64 cm) jl7 MDM: 07:31 Data reviewed: vital signs, nurses notes. Counseling: I had a detailed discussion with kdr the patient and/or guardian regarding: the historical points, exam findings, and any diagnostic results supporting the discharge/admit diagnosis, the need for outpatient follow up. Special discussion: I discussed with the patient/guardian in detail that at this point there is no indication for admission to the hospital. It is understood, however, that if the symptoms persist or worsen the patient needs to return immediately for re-evaluation. 07:38 Patient medically screened. kdr Administered Medications: No medications were administered Disposition: 12/18/17 07:38 Discharged to Home. Impression: Right foot cellulitis. - Condition is Stable. - Discharge Instructions: Athlete's Foot, Hxlp-fb-Oler, Cellulitis, Adult, Ytga-ge-Inoy, Foot Pain. - Prescriptions for Clotrimazole 1 % Topical Cream - Apply to affected area 1 application by TOPICAL route every 12 hours; 15 gram. Keflex 500 mg Oral Capsule - take 1 capsule by ORAL route every 12 hours for 10 days; 20 capsule. Zantac 300 mg Oral Tablet - take 1 tablet by ORAL route At bedtime; 30 tablet. Bactrim DS 800- 160 mg Oral Tablet - take 1 tablet by ORAL route every 12 hours for 10 days; 20 tablet. promethazine 25 mg Oral Tablet - take 1 tablet by ORAL route every 6 hours As needed; 20 tablet. - Medication Reconciliation Form, Thank You Letter, Antibiotic Education, Work release form form. - Follow up: Private Physician; When: 2 - 3 days; Reason: If symptoms return, Further diagnostic work-up, Recheck today's complaints, Continuance of care, Re-evaluation by your physician. - Problem is an ongoing problem. - Symptoms are unchanged. Signatures: Jaxon Rothman MD MD kdr Mirlande Barraza RN RN aa5 Shanell Brooks RN RN jl7 Corrections: (The following items were deleted from the chart) 07:49 07:38 12/18/2017 07:38 Discharged to Home. Impression: Right foot cellulitis. Condition aa5 is Stable. Forms are Work release form, Medication Reconciliation Form, Thank You Letter, Antibiotic Education, Prescription Opioid Use. Follow up: Private Physician; When: 2 - 3 days; Reason: If symptoms return, Further diagnostic work-up, Recheck today's complaints, Continuance of care, Re-evaluation by your physician. Problem is an ongoing problem. Symptoms are unchanged. kdr
[2017-12-18 07:58] VITALS: BP 134/85; TEMP 98.3; O2SAT 99
== END 2017-12-18 07:49 | disposition home or self-care (01) ==
LOC: ER 06:48
DX: L03.115 Cellulitis of right lower limb (principal); F17.210 Nicotine dependence, cigarettes, uncomplicated
CPT/HCPCS: 99283

== ENCOUNTER 2017-12-30 09:49 | Emergency (ER) | payer SELFPAY ==
--- OUTSIDE RECORDS SUMMARY | 2017-12-30 09:53 | XMS REPORT | Clinical Summary ---
:1980 Author Organization [facility] Address [address] [place] [address] Phone Care Team Providers Name Role Phone [...] Date Type Specialty Care Team Description 09/14/2017 [facility] General Internal Zaiad Martinez MD Alcohol abuse - Encounter Medicine Yahaira, (Primary 09/19/2017 Dario Dx);Cystic mass of TavaresMD pancreas;Pancreati Vanda Norton MD pseudocyst/cyst;He Naty Cruz, morrhagic Julissa Moseley MD pancreatitis 09/08/2017 Procedure Pass Gastroenterology 09/08/2017 Surgery Gastroenterology Bessy Hernandez UPPER ENDOSCOPY MD Fredi 09/07/2017 Anesthesia Event Gastroenterology Shikha Motley MD 09/01/2017 Orders Only General Internal Medicine 08/31/2017 [facility] Talisha Abad Alcohol - Encounter MD Adriana abuse;Cystic mass 09/09/2017 [place], of [place]-Dannie pancreas;History MD Nayely of DVT (deep vein Michael, Larry thrombosis);Kim Bishop MD l-induced acute Farrukh Ryan MD pancreatitis Mackenzie Riveraa without infection MD Bradley or necrosis;Smoker;Po rtal vein thrombosis 05/21/2017 Procedure Pass Gastroenterology 05/19/2017 Anesthesia Event Gastroenterology Dorota Cortes MD 05/13/2017 [facility] Internal Radha, Ulysses, Alcohol-induced - Encounter Medicine acute 05/20/2017 Rafaela Samson pancreatitisMD unspecified Diomedes Alvarado complication MD Lul status;Alcohol abuse;Cystic mass of pancreas;Smoker;Th rombocytosis (HCC);Alcohol-janiya segundo acute pancreatitis without infection or necrosis;Smoking 03/13/2017 Procedure Pass Gastroenterology 03/11/2017 Procedure Pass Gastroenterology 03/10/2017 Anesthesia Event Gastroenterology Юлия Crump MD 03/09/2017 [facility] Internal [facility] Alcohol - Encounter Medicine MD Araceli abuse;Cystic mass 03/14/2017 Ulysses Garcia of MD pancreas;Hypokalem Yaneth Napier ia;Alcohol-induced MD acute pancreatitis, unspecified complication status;Portal vein thrombosis after 12/29/2016 Family History Medical History Relation Name Comments [...] 09/08/2017 5:00 PM Pancreatic pseudocyst CDT after 12/29/2016 Results Calcium, Ionized (09/19/2017 6:02 AM)Only the most recent of3 resultswithin the time period is included. Component Value Ref Range Calcium, Ion 1.11 (L) 1.12 - 1.27 mmol/L pH, Blood 7.40 Specimen Performing Laboratory Blood - Line, Venous [address] [address] Phosphorus (09/19/2017 6:02 AM)Only the most recent of10 resultswithin the time period is included. Component Value Ref Range Phosphorus 3.0 2.3 - 4.7 mg/dL Specimen Performing Laboratory Blood - Line, Venous [address] [address] Magnesium (09/19/2017 6:02 AM)Only the most recent of11 resultswithin the time period is included. Component Value Ref Range Magnesium 2.0 1.6 - 2.6 mg/dL Specimen Performing Laboratory Blood - Line, Venous [address] [address] Basic Metabolic Panel (09/19/2017 6:02 AM)Only the [...] Specimen Performing Laboratory Blood - Line, Venous [address] [address] CBC with platelet count + automated diff [...] Performing Laboratory Blood - Line, Venous [facility] [address] [address] CBC with platelet count + automated diff (09/17/2017 3:54 AM)Only the most recent of17 resultswithin the time period is included. Specimen Performing Laboratory Blood Narrative The following orders were created for panel order CBC with platelet count + automated diff. Procedure Abnormality Status --------- ------ CBC with platelet count ...[[id number]]AbnormalFinal result Please view results for these tests on the individual orders. 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 Modality: Ultrasound and fluoroscopy. Sedation: Moderate sedation was administered. 2.5 mg of Versed and 125 mcg of fentanyl IV was used for moderate sedation monitored under my direction. Total intra-service time of sedation [id number]. The patient's vital signs were monitored throughout the procedure and recorded in the patient's medical record by the nurse. Anesthesia:Two percent Lidocaine without epinephrine. Approach:Right common femoral artery. Estimated blood loss:< 5 cc. Specimen: None. construction equipment operator: Michael Ortega MD. Cad Administrator: None.. Fluoroscopy Time: 31.7 min. Reference Air [...] over 0.035 Bentson wire for a 5 [place] Helenian by 10 cm vascular sheath. A 5 [place] Helenian Sutton B catheter was used to select the celiac trunk and SMA for multiple DSA runs. The Sutton catheter was then remanipulated into the celiac trunk. Next, using a 2.4 [place] Helenian microcatheter and 0.016 inch microwire, the gastroduodenal artery was cannulated. Subsequently, the catheter was manipulated into the feeding branch supplying the abnormal area of hyperemia/vessel irregularity. From this location, embolization was performed using Interlock microcoils. The microcatheter was retracted into the GDA proximally and postdilatation DSA was performed. Next, the Sutton base catheter was manipulated into the SMA. Using a 2. St Helenian directional microcatheter and 0.014 inch microwire, the [...] MD Report Verified Date/Time:09/20/2017 16:25:06 Reading Location: [place] [address] Angio Body Reading Room Procedure Note Interface, [...] blood loss: < 5 cc. Specimen: None. construction equipment operator: Michael Ortega MD. Cad Administrator: None.. Fluoroscopy Time: 31.7 min. Reference Air [...] over 0.035 Bentson wire for a 5 [place] Helenian by 10 cm vascular sheath. A 5 [place] Helenian Sutton B catheter was used to select the celiac trunk and SMA for multiple DSA runs. The Sutton catheter was then remanipulated into the celiac trunk. Next, using a 2.4 [place] Helenian microcatheter and 0.016 inch microwire, the gastroduodenal artery was cannulated. Subsequently, the catheter was manipulated into the feeding branch supplying the abnormal area of hyperemia/vessel irregularity. From this location, embolization was performed using Interlock microcoils. The microcatheter was retracted into the GDA proximally and postdilatation DSA was performed. Next, the Sutton base catheter was manipulated into the SMA. Using a 2. St Helenian directional microcatheter and 0.014 inch microwire, the [...] Report Verified Date/Time: 09/20/2017 16:25:06 Reading Location: [place] [address] Angio Body Reading Room C-Reactive Protein (09/16/2017 12:32 PM)Only the most recent of2 resultswithin the time period is included. Component Value Ref Range CRP 0.97 (H) 0.00 - 0.50 mg/dL Specimen Performing Laboratory Blood - Central Venous Line [address] [address] PT/aPTT (09/16/2017 10:54 AM) Component Value Ref Range Protime 16.2 (H) 11.7 - 14.7 seconds INR 1.3 <=5.9 PTT 30.2 22.5 - 36.0 seconds Specimen Performing Laboratory Blood - Central Venous Line [address] [address] Narrative RECOMMENDED COUMADIN/WARFARIN INR THERAPY RANGES STANDARD [...] mg/dL Specimen Performing Laboratory Blood - Line, [address] [address] Narrative TRIGLYCERIDE REFERENCE RANGE Low Risk<150 Borderline Risk 150-199 High [id number] Very High Risk >=500 Lipase (09/16/2017 4:20 AM)Only the most recent of6 resultswithin the time period is included. Component Value Ref Range Lipase 114 (H) 8 - 78 U/L Specimen Performing Laboratory Blood - Line, [address] [address] Hepatic function panel (09/16/2017 4:20 AM)Only the [...] Specimen Performing Laboratory Blood - Line, Venous [address] [address] XR chest 1 view portable / bedside [...] MD Report Verified Date/Time:09/15/2017 19:53:01 Reading Location: [address] Reading Room Procedure Note Interface, External [...] Report Verified Date/Time: 09/15/2017 19:53:01 Reading Location: [address] Reading Room PHERAL VASCULAR REPORT - SCAN (09/15/2017 5:20 PM)Venous doppler legs bilateral (09/15/2017 2:49 PM) Component Value Ref Range Ejection Fraction Specimen Performing Laboratory [facility] MKCKESSON CPACS Impressions Right Impression [...] Patient NameANKIT ROSALES Date of Study09/15/2017 Visit [id number] Male of Birth1980 Number Referring Julissa AlfonsoNancy, Room [id number] Physician Patient Access Director David Chan. Interpreting Prema Gabriel, CANDELARIO, Buddy, [...] of Study 09/15/2017 Age 37 Visit Number [id number] Gender Male Date of 1980 Number Referring Julissa Arguelles, Room Number 2161 Physician Patient Access Director David Chan. Interpreting Prema Gabriel T, [facility] Physician , RPVI Procedure Type of [...] Specimen Performing Laboratory Stool [facility] [address] [address] Narrative Performing Lab [facility] [address] [address] Enrique Holliday MD, PhD, GIDEON Peripheral Blood Smear - Path Review (09/14/2017 4:37 AM) Component Value Ref Range Pathologist Review Thrombocytosis. No circulating blasts or increased schistocytes. Clinical follow up recommended. Pathologist: Enoch Saba M.D.(electronic signature) Specimen Performing Laboratory [address] [address] Vitamin B12 and Folate (09/14/2017 4:37 AM) Component Value Ref Range Vitamin B12 527 213 - 816 pg/mL Folate 12.3 >=7.0 ng/mL Specimen Performing Laboratory Blood [address] [address] RHYTHM STRIP - SCAN (09/10/2017 10:40 AM)aPTT (09/09/2017 9:37 AM)Only the most recent of9 resultswithin the time period is included. Component Value Ref Range PTT 44.5 (H) 22.5 - 36.0 seconds Specimen Performing Laboratory Blood [address] [address] REPORT OF PROCEDURE - ENDOSCOPY URL (09/08/2017 5:47 PM)Fine Needle Aspirate ( 09/08/2017 5:43 PM) Component Value Ref Range Cytology See Separate Report Specimen Performing Laboratory Fine Needle Aspirate - [address] [address] Fine Needle Aspirate by Clinician (09/08/2017 5:43 PM) Component Value Ref Range Case Report Medical Cytology Report Case: [id number] Authorizing Provider:Bessy Hernandez MDCollected: 09/08/2017 1743 Ordering Location: [address] Received: 09/08/2017 1814 Service Pathologist: Mir Anthony MD Specimen:Pancreas DIAGNOSIS PANCREAS HEAD CYSTIC LESION FNA BY CLINICIAN (CYTOSPINS AND CELL BLOCK OF ASPIRATE): - NO MALIGNANT CELLS IDENTIFIED - The mucin stain shows focal weak staining Signing Pathologist Direct Phone Line: [phone] COMMENT The cell block shows non-inflammed pancreatic acinar tissue. CPT Code(s) 67503, 06348, 16605 CLINICAL DATA (4.9 X 4.8 cm) Cystic lesion in the pancreatic head SPECIMEN SOURCE PANCREAS HEAD CYSTIC LESION FNA GROSS DESCRIPTION 25 mls in cytorich red; 4 cytospins, 1 mucin stain, cell block Collected: [id number] Received: [id number] Technical component was performed at [facility], Department of Pathology, [address] [place] [address], Professional component was performed [facility], at Department of Pathology, [address] [place] [address], Specimen Performing Laboratory Fine Needle Aspirate - [address] [address] [address] abd/pelvis - pancreas evaluation (09/04/2017 12:20 [...] MD Report Verified Date/Time:09/04/2017 00:22:52 Reading Location: [address] Reading Room Procedure Note Interface, External [...] Report Verified Date/Time: 09/04/2017 00:22:52 Reading Location: [address] Reading Room -Glucose meter (09/02/2017 7:29 AM)Only the most recent of2 resultswithin the time period is included. Component Value Ref Range POC-Glucose Meter 140 (H)Comment: TESTED AT [address] 70 - 110 mg/[place] [address] Specimen Performing Laboratory Blood [facility] [address] [address] ECG 12 lead (09/01/2017 6:18 PM) Specimen Performing Laboratory [facility] Narrative Ventricular Rate 77 BPM Atrial Rate 77 BPM P-R Interval 162 ms QRS Duration 98 ms Q-T Interval 404 ms QTC Calculation(Bazett) 457 ms P [place] -8 degrees R [place] 30 degrees T [place] -1 degrees Normal sinus rhythm RSR' or [...] 404 ms QTC Calculation(Bazett) 457 ms P [place] -8 degrees R [place] 30 degrees T [place] -1 degrees Normal sinus rhythm RSR' or QR pattern in V1 suggests right ventricular conduction delay Cannot rule out Anterior infarct , age undetermined Abnormal ECG No previous ECGs available Confirmed by MD [place] ([id number]) on 09/02/2017 2:25:25 PM US abdomen limited (09/01/2017 5:23 AM) Specimen Performing Laboratory [employer] RIS Narrative FINAL REPORT INDICATION: 37-year-old male [...] MD Report Verified Date/Time:09/01/2017 09:53:12 Reading Location: [facility] P006J Ultrasound Reading Room Procedure Note Interface, [...] Report Verified Date/Time: 09/01/2017 09:53:12 Reading Location: [facility] P006 Ultrasound Reading Room /Free T4 If Indicated (09/01/2017 3:12 AM) Component Value Ref Range TSH 0.36 0.35 - 4.94 uIU/mL Specimen Performing Laboratory Blood - Arm, [address] [address] Troponin I (09/01/2017 3:12 AM) Component Value Ref Range Troponin I <0.01 0.00 - 0.03 ng/mL Specimen Performing Laboratory Blood - Arm, [address] [address] Narrative Troponin I (TnI) levels must be [...] mm/HR Specimen Performing Laboratory Blood - Arm, [address] [address] Hemoglobin A1c (09/01/2017 3:12 AM) Component Value Ref Range Hemoglobin A1C 4.7 4.3 - 6.1 % Specimen Performing Laboratory Blood - Arm, [address] [address] Creatine Kinase (CK), Total and MB (09/01/2017 3:12 AM) Component Value Ref Range Total CK 29 29 - 200 U/L CK-MB 0.4 0.0 - 6.6 ng/mL MB Relative Index 1.4 % Specimen Performing Laboratory Blood - Arm, [address] [address] Narrative CK-MB Reference Range: <6.7Normal 6.7-10.0Borderline >10.0 Abnormal Amylase (09/01/2017 3:12 AM) Component Value Ref Range Amylase 383 (H) 25 - 125 U/L Specimen Performing Laboratory Blood - Arm, [address] [address] Lipid panel (09/01/2017 3:12 AM)Only the most recent of2 resultswithin the time period is included. Component Value Ref Range Triglycerides 76 mg/dL Cholesterol 118 mg/dL HDL 37 mg/dL LDL Calculated 66 mg/dL Specimen Performing Laboratory Blood - Arm, [address] [address] Narrative Triglyceride Reference Range: Low Risk <150 [id number] High Risk 200-499 Very High Risk>=500 Cholesterol Reference Range: Low Risk <200 Bldvwacudc563-785 High Risk>240 HDL Cholesterol Reference Range: Low Risk >=60 High Risk <40 LDL Cholesterol Reference Range: Optimal<100 Near Czzaoeb939-709 Qyvkmvlmqs297-544 Jnbs906-553 Very High >=190 Blood culture (09/01/2017 3:11 AM)Only the most recent of2 resultswithin the time period is included. Component Value Ref Range Result No growth in 5 days Specimen Performing Laboratory Blood - Arm, Right [address] [address] EKG-SCANNED (05/22/2017 12:43 PM)Comprehensive metabolic panel (05/19/2017 [...] FOR DIALYSIS PATIENTS. Specimen Performing Laboratory Blood [address] [address] CBC (Hemogram only) (05/17/2017 4:26 AM)Only the [...] Performing Laboratory Blood - Arm, Right [facility] [address] [place] [address] MR abdomen without IV contrast MRCP (03/13/2017 [...] MD Report Verified Date/Time:03/13/2017 12:25:41 Reading Location: [address] Consult Reading Room Procedure Note Interface, External Ris In - 03/13/2017 12:27 PM GEOLOGICAL SURVEY FIELD ASSISTANT FINAL REPORT MRI of the abdomen, MRCP. [...] Report Verified Date/Time: 03/13/2017 12:25:41 Reading Location: [facility] C013X [facility] Consult Reading Room Manual Differential (03/11/2017 5:44 AM)Only the most recent of2 resultswithin the time period is included. Component Value Ref Range Total Counted WBC Morphology Normal Platelet Morphology Normal RBC Morphology Normal Specimen Performing Laboratory Blood - Line, Venous [address] [address] Prothrombin time/INR (03/09/2017 9:54 AM) Component Value Ref Range Protime 14.3 11.7 - 14.7 seconds INR 1.1 <=5.9 Specimen Performing Laboratory Blood [address] [address] Narrative RECOMMENDED COUMADIN/WARFARIN INR THERAPY RANGES STANDARD DOSE: 2.0 - 3.0 Includes: PROPHYLAXIS for venous thrombosis, systemic embolization; TREATMENT for venous thrombosis and/or pulmonary embolus. HIGH RISK: Target INR is 2.5-3.5 for patients with mechanical heart valves. after 12/29/2016
--- OUTSIDE RECORDS SUMMARY | 2017-12-30 09:55 | XMS REPORT ---
:1980 Author Organization [facility] Address [address] [place] [address] Care Team Providers Name Role Phone VANI [...] WALLER, 2017-09-[address] at [facility] for FINAL REPORT PATIENT EXTENSIVE - 16:25:00 evidence of bleedCall with ID: [id number] ARTERIAL questions: [phone] or Mesenteric angiogram [facility] for and embolization exam:->Pancreaticoduodednal artery with intermittent [...] blood loss: < 5 cc. Specimen: None. core drill operator helper: Michael Ortega MD. Toddler Guide: None.. Fluoroscopy Time: 31.7 min.Reference Air Kerma [...] 0.035 Bentson wire for a 5 [place] by 10 cm vascular sheath. A 5 [place] Sutton B catheter was used to select the celiac trunk and SMA for multiple DSA runs. The Sutton catheter was then remanipulated into the celiac trunk. Next, using a 2.4 [place]ian microcatheter and 0.016 inch microwire, the gastroduodenal artery was cannulated. Subsequently, the catheter was manipulated into the feeding branch supplying the abnormal area of hyperemia/vessel irregularity. From this location, embolization was performed using Interlock microcoils. The microcatheter was retracted into the GDA proximally and postdilatation DSA was performed. Next, the Sutton base catheter was manipulated into the SMA. Using a 2. [place]ian directional microcatheter and 0.014 inch microwire, the [...] Ortegaort Verified Date/Time: 09/20/2017 16:25:06 Reading Location: [place] [address] Angio Body Reading Room IUM, IONIZED 2017-09-19 07:02:00 Test Item Value Reference Range Comments CALCIUM IONIZED (BEAKER) (test byos=848) 1.11 mmol/L 1.12-1.27 PH, BLOOD (BEAKER) (test mbrs=1474) 7.40 [id number] 06:35:00 Test Item Value Reference Range Comments PHOSPHORUS (BEAKER) (test dulg=661) 3.0 mg/dL 2.3-4.7 [id number] 06:35:00 Test Item Value Reference Range Comments MAGNESIUM (BEAKER) (test ykhf=241) 2.0 mg/dL 1.6-2.6 BASIC METABOLIC [id number] 06:35:00 Test Item Value Reference Range Comments SODIUM (BEAKER) (test 138 meq/L 136-145 udgn=188) POTASSIUM (BEAKER) (test 3.8 meq/L 3.5-5.1 bzxi=485) CHLORIDE (BEAKER) (test 109 meq/L 98-107 qmre=176) CO2 (BEAKER) (test 22 meq/L 22-29 efqy=078) BLOOD UREA NITROGEN 10 mg/dL 7-21 (BEAKER) (test hwow=662) CREATININE (BEAKER) (test 0.53 mg/dL 0.57-1.25 ezpl=084) GLUCOSE RANDOM (BEAKER) 88 mg/dL 70-105 (test xjny=604) CALCIUM (BEAKER) (test 8.5 mg/dL 8.4-10.2 jcsc=608) EGFR (BEAKER) (test 174 mL/min/1.73 sq m ESTIMATED GFR IS NOT rbrc=3916) ACCURATE CREATININE CLEARANCE IN PREDICTING GLOMERULAR FILTRATION RATE. ESTIMATED GFR IS NOT APPLICABLE FOR DIALYSIS PATIENTS. CALCIUM, [id number] 07:12:00 Test Item Value Reference Range Comments CALCIUM IONIZED (BEAKER) (test cjon=396) 1.09 mmol/L 1.12-1.27 PH, BLOOD (BEAKER) (test sndi=0774) 7.41 [id number] 06:38:00 Test Item Value Reference Range Comments PHOSPHORUS (BEAKER) (test eyko=906) 3.0 mg/dL 2.3-4.7 [id number] 06:38:00 Test Item Value Reference Range Comments MAGNESIUM (BEAKER) (test umcp=269) 2.1 mg/dL 1.6-2.6 BASIC METABOLIC [id number] 06:38:00 Test Item Value Reference Range Comments SODIUM (BEAKER) (test 137 meq/L 136-145 tojo=775) POTASSIUM (BEAKER) (test 3.7 meq/L 3.5-5.1 kinv=475) CHLORIDE (BEAKER) (test 108 meq/L 98-107 zwiu=988) CO2 (BEAKER) (test 22 meq/L 22-29 tjho=109) BLOOD UREA NITROGEN 10 mg/dL 7-21 (BEAKER) (test dpvu=654) CREATININE (BEAKER) (test 0.52 mg/dL 0.57-1.25 rduu=494) GLUCOSE RANDOM (BEAKER) 99 mg/dL 70-105 (test jhpg=492) CALCIUM (BEAKER) (test 8.6 mg/dL 8.4-10.2 xjky=342) EGFR (BEAKER) (test 178 mL/min/1.73 sq m ESTIMATED GFR IS NOT nuhz=8476) ACCURATE CREATININE CLEARANCE IN PREDICTING GLOMERULAR FILTRATION RATE. ESTIMATED GFR IS NOT APPLICABLE FOR DIALYSIS PATIENTS. CALCIUM, [id number] 04:45:00 Test Item Value Reference Range Comments CALCIUM IONIZED (BEAKER) (test tfpj=128) 1.14 mmol/L 1.12-1.27 PH, BLOOD (BEAKER) (test egmt=4204) 7.39 [id number] 04:22:00 Test Item Value Reference Range Comments PHOSPHORUS (BEAKER) (test bcrk=833) 2.8 mg/dL 2.3-4.7 [id number] 04:22:00 Test Item Value Reference Range Comments MAGNESIUM (BEAKER) (test xjxw=262) 1.9 mg/dL 1.6-2.6 BASIC METABOLIC [id number] 04:22:00 Test Item Value Reference Range Comments SODIUM (BEAKER) (test 134 meq/L 136-145 vumv=634) POTASSIUM (BEAKER) (test 3.3 meq/L 3.5-5.1 smzc=563) CHLORIDE (BEAKER) (test 103 meq/L 98-107 qcql=905) CO2 (BEAKER) (test 23 meq/L 22-29 tqgo=792) BLOOD UREA NITROGEN 11 mg/dL 7-21 (BEAKER) (test rhji=606) CREATININE (BEAKER) (test 0.55 mg/dL 0.57-1.25 jyio=768) GLUCOSE RANDOM (BEAKER) 112 mg/dL 70-105 (test ufgm=431) CALCIUM (BEAKER) (test 8.7 mg/dL 8.4-10.2 lvnr=234) EGFR (BEAKER) (test 167 mL/min/1.73 sq m ESTIMATED GFR IS NOT itpr=1759) ACCURATE CREATININE CLEARANCE IN PREDICTING GLOMERULAR FILTRATION RATE. ESTIMATED GFR IS NOT APPLICABLE FOR DIALYSIS PATIENTS. CBC W/PLT COUNT & AUTO [id number] 04:11:00 Test Item Value Reference Range Comments WHITE BLOOD CELL COUNT (BEAKER) (test icvk=907) 10.1 K/ L 3.5-10.5 RED BLOOD CELL COUNT (BEAKER) (test yfzy=097) 4.16 M/ L 4.63-6.08 HEMOGLOBIN (BEAKER) (test ptod=541) 12.6 GM/DL 13.7-17.5 HEMATOCRIT (BEAKER) (test fvls=125) 37.3 % 40.1-51.0 MEAN CORPUSCULAR VOLUME (BEAKER) (test eufw=868) 89.7 fL 79.0-92.2 MEAN CORPUSCULAR HEMOGLOBIN (BEAKER) (test 30.3 pg 25.7-32.2 lalo=817) MEAN CORPUSCULAR HEMOGLOBIN CONC (BEAKER) (test 33.8 GM/DL 32.3-36.5 mvsj=141) RED CELL DISTRIBUTION WIDTH (BEAKER) (test 14.0 % 11.6-14.4 lrzj=051) PLATELET COUNT (BEAKER) (test yvtw=134) 541 K/CU MM 150-450 MEAN PLATELET VOLUME (BEAKER) (test zjky=518) 9.1 fL 9.4-12.4 NUCLEATED RED BLOOD CELLS (BEAKER) (test 0 /100 WBC 0-0 hshy=414) NEUTROPHILS RELATIVE PERCENT (BEAKER) (test 66 % yiqe=359) LYMPHOCYTES RELATIVE PERCENT (BEAKER) (test 20 % wstp=136) MONOCYTES RELATIVE PERCENT (BEAKER) (test 10 % hnut=705) EOSINOPHILS RELATIVE PERCENT (BEAKER) (test 3 % byfb=283) BASOPHILS RELATIVE PERCENT (BEAKER) (test 1 % ewtp=762) NEUTROPHILS ABSOLUTE COUNT (BEAKER) (test 6.65 K/ L 1.78-5.38 xdpg=313) LYMPHOCYTES ABSOLUTE COUNT (BEAKER) (test 2.05 K/ L 1.32-3.57 xcum=641) MONOCYTES ABSOLUTE COUNT (BEAKER) (test 1.03 K/ L 0.30-0.82 wbdj=895) EOSINOPHILS ABSOLUTE COUNT (BEAKER) (test 0.26 K/ L 0.04-0.54 xjel=658) BASOPHILS ABSOLUTE COUNT (BEAKER) (test 0.10 K/ L 0.01-0.08 qeeb=848) IMMATURE GRANULOCYTES-RELATIVE PERCENT (BEAKER) 0 % 0-1 (test mytf=1165) U/S, ABDOMINAL, WITH [id number] 04:01:00Reason for exam:->? hx of PV thrombosisFINAL [...] Date/Time: 09/17/2017 04:01:12 Reading Location: [facility] [id number] Ortho Consult Reading Room 04 :01 AMC-REACTIVE [id number] 13:17:00 Test Item Value Reference Range Comments C-REACTIVE PROTEIN (BEAKER) (test vkyf=009) 0.97 mg/dL 0.00-0.50 [id number] 11:12:00 Test Item Value Reference Range Comments PROTIME (BEAKER) (test xxef=371) 16.2 seconds 11.7-14.7 INR (BEAKER) (test aaft=454) 1.3 <=5.9 PARTIAL THROMBOPLASTIN TIME (BEAKER) (test 30.2 seconds 22.5-36.0 oqdw=046) RECOMMENDED COUMADIN/WARFARIN INR THERAPY RANGESSTANDARD DOSE: 2.0 - 3.0 Includes: PROPHYLAXIS forvenous thrombosis, systemic embolization; TREATMENT for venous thrombosis and/or pulmonary embolus.HIGH RISK: Target INR is 2.5-3.5 for patients with mechanical heart valves.[id number] 05:28:00 Test Item Value Reference Range Comments TRIGLYCERIDES (BEAKER) (test awef=485) 78 mg/dL TRIGLYCERIDE REFERENCE RANGELow Risk <150Borderline Risk 150-199High Risk 200-499Very High Risk>=[id number] 05:28:00 Test Item Value Reference Range Comments MAGNESIUM (BEAKER) (test xpci=311) 1.9 mg/dL 1.6-2.6 [id number] 05:28:00 Test Item Value Reference Range Comments PHOSPHORUS (BEAKER) (test gpst=429) 3.5 mg/dL 2.3-4.7 BASIC METABOLIC [id number] 05:28:00 Test Item Value Reference Range Comments SODIUM (BEAKER) (test 134 meq/L 136-145 kpuc=457) POTASSIUM (BEAKER) (test 3.6 meq/L 3.5-5.1 cspb=100) CHLORIDE (BEAKER) (test 105 meq/L 98-107 eyvd=816) CO2 (BEAKER) (test 23 meq/L 22-29 jbiw=661) BLOOD UREA NITROGEN 13 mg/dL 7-21 (BEAKER) (test kftc=906) CREATININE (BEAKER) (test 0.56 mg/dL 0.57-1.25 ctpn=529) GLUCOSE RANDOM (BEAKER) 83 mg/dL 70-105 (test yuiz=954) CALCIUM (BEAKER) (test 8.8 mg/dL 8.4-10.2 ipfe=817) EGFR (BEAKER) (test 163 mL/min/1.73 sq m ESTIMATED GFR IS NOT lpes=5300) ACCURATE CREATININE CLEARANCE IN PREDICTING GLOMERULAR FILTRATION RATE. ESTIMATED GFR IS NOT APPLICABLE FOR DIALYSIS PATIENTS. HEPATIC FUNCTION [id number] 05:28:00 Test Item Value Reference Range Comments TOTAL PROTEIN (BEAKER) (test pgei=256) 6.5 gm/dL 6.0-8.3 ALBUMIN (BEAKER) (test uzem=3224) 3.7 g/dL 3.5-5.0 BILIRUBIN TOTAL (BEAKER) (test adgy=261) 0.3 mg/dL 0.2-1.2 BILIRUBIN DIRECT (BEAKER) (test gjkn=818) 0.1 mg/dL 0.1-0.5 ALKALINE PHOSPHATASE (BEAKER) (test mdgo=430) 79 U/L 40-150 AST (SGOT) (BEAKER) (test qavq=030) 14 U/L 5-34 ALT (SGPT) (BEAKER) (test njsm=740) 9 U/L 6-55 [id number] 05:28:00 Test Item Value Reference Range Comments LIPASE (BEAKER) (test ifsx=056) 114 U/L 8-78 CBC W/PLT COUNT & AUTO [id number] 05:03:00 Test Item Value Reference Range Comments WHITE BLOOD CELL COUNT (BEAKER) (test ivfb=749) 7.2 K/ L 3.5-10.5 RED BLOOD CELL COUNT (BEAKER) (test thuy=192) 4.04 M/ L 4.63-6.08 HEMOGLOBIN (BEAKER) (test jcxp=774) 12.2 GM/DL 13.7-17.5 HEMATOCRIT (BEAKER) (test uguu=939) 36.7 % 40.1-51.0 MEAN CORPUSCULAR VOLUME (BEAKER) (test uuwa=002) 90.8 fL 79.0-92.2 MEAN CORPUSCULAR HEMOGLOBIN (BEAKER) (test 30.2 pg 25.7-32.2 wqbm=037) MEAN CORPUSCULAR HEMOGLOBIN CONC (BEAKER) (test 33.2 GM/DL 32.3-36.5 npwc=125) RED CELL DISTRIBUTION WIDTH (BEAKER) (test 14.3 % 11.6-14.4 hajg=955) PLATELET COUNT (BEAKER) (test xcdh=571) 561 K/CU MM 150-450 MEAN PLATELET VOLUME (BEAKER) (test cori=016) 9.2 fL 9.4-12.4 NUCLEATED RED BLOOD CELLS (BEAKER) (test 0 /100 WBC 0-0 boap=698) NEUTROPHILS RELATIVE PERCENT (BEAKER) (test 51 % edix=438) LYMPHOCYTES RELATIVE PERCENT (BEAKER) (test 32 % ddqd=406) MONOCYTES RELATIVE PERCENT (BEAKER) (test 11 % qfce=742) EOSINOPHILS RELATIVE PERCENT (BEAKER) (test 4 % twlv=551) BASOPHILS RELATIVE PERCENT (BEAKER) (test 2 % shvk=611) NEUTROPHILS ABSOLUTE COUNT (BEAKER) (test 3.66 K/ L 1.78-5.38 kqvz=349) LYMPHOCYTES ABSOLUTE COUNT (BEAKER) (test 2.30 K/ L 1.32-3.57 shvt=969) MONOCYTES ABSOLUTE COUNT (BEAKER) (test 0.77 K/ L 0.30-0.82 cibj=558) EOSINOPHILS ABSOLUTE COUNT (BEAKER) (test 0.30 K/ L 0.04-0.54 hikn=032) BASOPHILS ABSOLUTE COUNT (BEAKER) (test 0.11 K/ L 0.01-0.08 hike=796) IMMATURE GRANULOCYTES-RELATIVE PERCENT (BEAKER) 1 % 0-1 (test xwbw=7090) RAD, CHEST, 1 VIEW, NON [id number] 19:53:00Reason for exam:->check picc placement Should this [...] MDReport Verified Date/Time: 09/15/2017 19:53:01 Reading Location: [address] Reading Room Electronically signed by: GEORGE KEYS M.D. on 07:53 PMCBC W/PLT COUNT & AUTO [id number] 10:27:00 Test Item Value Reference Range Comments WHITE BLOOD CELL COUNT (BEAKER) (test kcyk=349) 7.8 K/ L 3.5-10.5 RED BLOOD CELL COUNT (BEAKER) (test mocs=904) 3.95 M/ L 4.63-6.08 HEMOGLOBIN (BEAKER) (test oaen=889) 12.0 GM/DL 13.7-17.5 HEMATOCRIT (BEAKER) (test ahwu=000) 35.9 % 40.1-51.0 MEAN CORPUSCULAR VOLUME (BEAKER) (test bezs=019) 90.9 fL 79.0-92.2 MEAN CORPUSCULAR HEMOGLOBIN (BEAKER) (test 30.4 pg 25.7-32.2 bqnh=530) MEAN CORPUSCULAR HEMOGLOBIN CONC (BEAKER) (test 33.4 GM/DL 32.3-36.5 eloc=980) RED CELL DISTRIBUTION WIDTH (BEAKER) (test 14.6 % 11.6-14.4 ihfo=056) PLATELET COUNT (BEAKER) (test tewh=098) 543 K/CU MM 150-450 MEAN PLATELET VOLUME (BEAKER) (test bcbf=425) 9.1 fL 9.4-12.4 NUCLEATED RED BLOOD CELLS (BEAKER) (test 0 /100 WBC 0-0 dapr=091) NEUTROPHILS RELATIVE PERCENT (BEAKER) (test 59 % hilb=797) LYMPHOCYTES RELATIVE PERCENT (BEAKER) (test 27 % sola=063) MONOCYTES RELATIVE PERCENT (BEAKER) (test 11 % ptva=610) EOSINOPHILS RELATIVE PERCENT (BEAKER) (test 1 % aqvd=007) BASOPHILS RELATIVE PERCENT (BEAKER) (test 1 % eini=870) NEUTROPHILS ABSOLUTE COUNT (BEAKER) (test 4.56 K/ L 1.78-5.38 mhvz=889) LYMPHOCYTES ABSOLUTE COUNT (BEAKER) (test 2.11 K/ L 1.32-3.57 aegq=635) MONOCYTES ABSOLUTE COUNT (BEAKER) (test 0.89 K/ L 0.30-0.82 nttz=534) EOSINOPHILS ABSOLUTE COUNT (BEAKER) (test 0.11 K/ L 0.04-0.54 yemx=304) BASOPHILS ABSOLUTE COUNT (BEAKER) (test 0.08 K/ L 0.01-0.08 gtvg=906) IMMATURE GRANULOCYTES-RELATIVE PERCENT (BEAKER) 0 % 0-1 (test zwxj=7152) PERIPHERAL BLOOD SMEAR - PATHOLOGIST [id number] 10:04:00 Test Item Value Reference Range Comments PERIPHERAL SMR REVIEW (BEAKER) Thrombocytosis. No circulating (test yaya=3861) blasts or increased schistocytes. Clinical follow up recommended. [id number] (BEAKER) Enoch Saba (test zpkm=5060) Miladis(electronic signature) [id number] 06:02:00 Test Item Value Reference Range Comments PHOSPHORUS (BEAKER) (test vmss=223) 3.3 mg/dL 2.3-4.7 [id number] 06:02:00 Test Item Value Reference Range Comments MAGNESIUM (BEAKER) (test tjtx=272) 2.0 mg/dL 1.6-2.6 BASIC METABOLIC [id number] 06:02:00 Test Item Value Reference Range Comments SODIUM (BEAKER) (test 132 meq/L 136-145 pgiw=630) POTASSIUM (BEAKER) (test 3.7 meq/L 3.5-5.1 ipdz=755) CHLORIDE (BEAKER) (test 102 meq/L 98-107 ajhu=321) CO2 (BEAKER) (test 22 meq/L 22-29 tszt=033) BLOOD UREA NITROGEN 11 mg/dL 7-21 (BEAKER) (test mrlu=924) CREATININE (BEAKER) (test 0.52 mg/dL 0.57-1.25 mrdn=730) GLUCOSE RANDOM (BEAKER) 76 mg/dL 70-105 (test gvwi=509) CALCIUM (BEAKER) (test 9.4 mg/dL 8.4-10.2 tjse=650) EGFR (BEAKER) (test 178 mL/min/1.73 sq m ESTIMATED GFR IS NOT fjsk=4112) ACCURATE CREATININE CLEARANCE IN PREDICTING GLOMERULAR FILTRATION RATE. ESTIMATED GFR IS NOT APPLICABLE FOR DIALYSIS PATIENTS. VITAMIN B12 AND [id number] 12:22:00 Test Item Value Reference Range Comments VITAMIN B12 (BEAKER) (test frfk=593) 527 pg/mL 213-816 FOLATE (BEAKER) (test whoh=007) 12.3 ng/mL >=7.0 [id number] 07:34:00 Test Item Value Reference Range Comments LIPASE (BEAKER) (test vpeu=872) 1107 U/L 8-78 BASIC METABOLIC [id number] 07:32:00 Test Item Value Reference Range Comments SODIUM (BEAKER) (test 134 meq/L 136-145 tzen=502) POTASSIUM (BEAKER) (test 3.7 meq/L 3.5-5.1 kdid=702) CHLORIDE (BEAKER) (test 103 meq/L 98-107 ppwx=817) CO2 (BEAKER) (test 20 meq/L 22-29 xnei=156) BLOOD UREA NITROGEN 10 mg/dL 7-21 (BEAKER) (test fksi=704) CREATININE (BEAKER) (test 0.59 mg/dL 0.57-1.25 kszg=090) GLUCOSE RANDOM (BEAKER) 96 mg/dL 70-105 (test uzeq=328) CALCIUM (BEAKER) (test 9.7 mg/dL 8.4-10.2 zmnv=072) EGFR (BEAKER) (test 154 mL/min/1.73 sq m ESTIMATED GFR IS NOT gkux=6200) ACCURATE CREATININE CLEARANCE IN PREDICTING GLOMERULAR FILTRATION RATE. ESTIMATED GFR IS NOT APPLICABLE FOR DIALYSIS PATIENTS. [id number] 07:32:00 Test Item Value Reference Range Comments MAGNESIUM (BEAKER) (test bcqp=433) 1.9 mg/dL 1.6-2.6 [id number] 07:32:00 Test Item Value Reference Range Comments PHOSPHORUS (BEAKER) (test rpdv=278) 3.4 mg/dL 2.3-4.7 CBC W/PLT COUNT & AUTO [id number] 06:44:00 Test Item Value Reference Range Comments WHITE BLOOD CELL COUNT (BEAKER) (test xchv=631) 12.1 K/ L 3.5-10.5 RED BLOOD CELL COUNT (BEAKER) (test pzoi=789) 4.34 M/ L 4.63-6.08 HEMOGLOBIN (BEAKER) (test ndqa=993) 13.1 GM/DL 13.7-17.5 HEMATOCRIT (BEAKER) (test ogwu=223) 39.2 % 40.1-51.0 MEAN CORPUSCULAR VOLUME (BEAKER) (test jzto=674) 90.3 fL 79.0-92.2 MEAN CORPUSCULAR HEMOGLOBIN (BEAKER) (test 30.2 pg 25.7-32.2 ibvg=885) MEAN CORPUSCULAR HEMOGLOBIN CONC (BEAKER) (test 33.4 GM/DL 32.3-36.5 swwm=408) RED CELL DISTRIBUTION WIDTH (BEAKER) (test 14.9 % 11.6-14.4 fzlr=686) PLATELET COUNT (BEAKER) (test toai=245) 636 K/CU MM 150-450 MEAN PLATELET VOLUME (BEAKER) (test gpod=853) 9.5 fL 9.4-12.4 NUCLEATED RED BLOOD CELLS (BEAKER) (test 0 /100 WBC 0-0 gkeu=262) NEUTROPHILS RELATIVE PERCENT (BEAKER) (test 72 % grmp=680) LYMPHOCYTES RELATIVE PERCENT (BEAKER) (test 15 % lure=232) MONOCYTES RELATIVE PERCENT (BEAKER) (test 11 % jsel=118) EOSINOPHILS RELATIVE PERCENT (BEAKER) (test 0 % zmjy=590) BASOPHILS RELATIVE PERCENT (BEAKER) (test 0 % uhmu=464) NEUTROPHILS ABSOLUTE COUNT (BEAKER) (test 8.72 K/ L 1.78-5.38 mwtq=554) LYMPHOCYTES ABSOLUTE COUNT (BEAKER) (test 1.87 K/ L 1.32-3.57 vuzw=310) MONOCYTES ABSOLUTE COUNT (BEAKER) (test 1.38 K/ L 0.30-0.82 crmv=953) EOSINOPHILS ABSOLUTE COUNT (BEAKER) (test 0.02 K/ L 0.04-0.54 uqcp=260) BASOPHILS ABSOLUTE COUNT (BEAKER) (test 0.05 K/ L 0.01-0.08 qyvk=415) IMMATURE GRANULOCYTES-RELATIVE PERCENT (BEAKER) 1 % 0-1 (test kgfz=9311) FINE NEEDLE ASPIRATION BY [id number] 13:21:00Medical Cytology Report Case: [id number] Authorizing Provider: Bessy Hernandez MD Collected: 2017 1743 Ordering Location: [address] Received : 09/08/2017 1814 Service Pathologist: Mir Anthony MD Specimen: Pancreas PANCREAS HEAD CYSTICLESION FNA BY CLINICIAN ( CYTOSPINS AND CELL BLOCK OF ASPIRATE): - NO MALIGNANT CELLS IDENTIFIED - The mucin stain shows focal weak staining Signing Pathologist Direct Phone Line : [phone] signed by Mir Anthony MD on 09/11/2017 at 1:21 PMThe cell block shows non-inflammed pancreatic acinar tissue.25491, 55562, 64842(4.9 X 4.8 cm) Cystic lesion in the pancreatic headPANCREAS HEAD CYSTIC LESION FNA25 mls in cytorich red; 4 cytospins, 1 mucin stain, cell blockCollected: [id number]: [id number], [facility] of [facility], [address] [place] [address], [facility], [facility] of [facility], [address] [place] [address], [id number] 10:07:00 Test Item Value Reference Range Comments PARTIAL THROMBOPLASTIN TIME (BEAKER) (test 44.5 seconds 22.5-36.0 mriy=400) BASIC METABOLIC [id number] 05:56:00 Test Item Value Reference Range Comments SODIUM (BEAKER) (test 138 meq/L 136-145 ecqr=120) POTASSIUM (BEAKER) (test 3.7 meq/L 3.5-5.1 frfv=470) CHLORIDE (BEAKER) (test 105 meq/L 98-107 sbqh=968) CO2 (BEAKER) (test 25 meq/L 22-29 nglx=103) BLOOD UREA NITROGEN 7 mg/dL 7-21 (BEAKER) (test burj=626) CREATININE (BEAKER) (test 0.62 mg/dL 0.57-1.25 lnia=110) GLUCOSE RANDOM (BEAKER) 120 mg/dL 70-105 (test nvhn=283) CALCIUM (BEAKER) (test 8.7 mg/dL 8.4-10.2 qdht=433) EGFR (BEAKER) (test 145 mL/min/1.73 sq m ESTIMATED GFR IS NOT ifhs=2416) ACCURATE CREATININE CLEARANCE IN PREDICTING GLOMERULAR FILTRATION RATE. ESTIMATED GFR IS NOT APPLICABLE FOR DIALYSIS PATIENTS. CBC W/PLT COUNT & AUTO [id number] 05:42:00 Test Item Value Reference Range Comments WHITE BLOOD CELL COUNT (BEAKER) (test tzry=773) 4.6 K/ L 3.5-10.5 RED BLOOD CELL COUNT (BEAKER) (test uqtj=412) 3.83 M/ L 4.63-6.08 HEMOGLOBIN (BEAKER) (test gmmu=411) 11.7 GM/DL 13.7-17.5 HEMATOCRIT (BEAKER) (test ncbg=401) 34.7 % 40.1-51.0 MEAN CORPUSCULAR VOLUME (BEAKER) (test wenp=839) 90.6 fL 79.0-92.2 MEAN CORPUSCULAR HEMOGLOBIN (BEAKER) (test 30.5 pg 25.7-32.2 ikbr=561) MEAN CORPUSCULAR HEMOGLOBIN CONC (BEAKER) (test 33.7 GM/DL 32.3-36.5 toaf=947) RED CELL DISTRIBUTION WIDTH (BEAKER) (test 14.3 % 11.6-14.4 ybqx=244) PLATELET COUNT (BEAKER) (test stdo=172) 378 K/CU MM 150-450 MEAN PLATELET VOLUME (BEAKER) (test gjns=779) 9.0 fL 9.4-12.4 NUCLEATED RED BLOOD CELLS (BEAKER) (test 0 /100 WBC 0-0 glld=451) NEUTROPHILS RELATIVE PERCENT (BEAKER) (test 39 % ugjb=433) LYMPHOCYTES RELATIVE PERCENT (BEAKER) (test 43 % jgbs=131) MONOCYTES RELATIVE PERCENT (BEAKER) (test 12 % brxr=660) EOSINOPHILS RELATIVE PERCENT (BEAKER) (test 5 % yxph=761) BASOPHILS RELATIVE PERCENT (BEAKER) (test 1 % bljx=210) NEUTROPHILS ABSOLUTE COUNT (BEAKER) (test 1.81 K/ L 1.78-5.38 hfbd=380) LYMPHOCYTES ABSOLUTE COUNT (BEAKER) (test 2.01 K/ L 1.32-3.57 zons=614) MONOCYTES ABSOLUTE COUNT (BEAKER) (test 0.55 K/ L 0.30-0.82 bemq=474) EOSINOPHILS ABSOLUTE COUNT (BEAKER) (test 0.21 K/ L 0.04-0.54 qvhq=215) BASOPHILS ABSOLUTE COUNT (BEAKER) (test 0.05 K/ L 0.01-0.08 twhn=252) IMMATURE GRANULOCYTES-RELATIVE PERCENT (BEAKER) 0 % 0-1 (test ljop=1767) FINE NEEDLE ASPIRATE (FNA) [id number] 20:00:00 Test Item Value Reference Range Comments CYTOLOGY RESULT POINTER (BEAKER) (test See Separate Report iwri=[id number]) [id number] 12:16:00 Test Item Value Reference Range Comments PARTIAL THROMBOPLASTIN TIME (BEAKER) (test 84.6 seconds 22.5-36.0 olek=309) BASIC METABOLIC [id number] 05:21:00 Test Item Value Reference Range Comments SODIUM (BEAKER) (test 126 meq/L 136-145 uxei=920) POTASSIUM (BEAKER) (test 2.8 meq/L 3.5-5.1 fbua=912) CHLORIDE (BEAKER) (test 99 meq/L 98-107 dopf=124) CO2 (BEAKER) (test 20 meq/L 22-29 izig=809) BLOOD UREA NITROGEN 3 mg/dL 7-21 (BEAKER) (test zqnl=634) CREATININE (BEAKER) (test 0.44 mg/dL 0.57-1.25 svfg=592) GLUCOSE RANDOM (BEAKER) 75 mg/dL 70-105 (test sqgt=169) CALCIUM (BEAKER) (test 6.8 mg/dL 8.4-10.2 gwaf=384) EGFR (BEAKER) (test 216 mL/min/1.73 sq m ESTIMATED GFR IS NOT pumo=2770) ACCURATE CREATININE CLEARANCE IN PREDICTING GLOMERULAR FILTRATION RATE. ESTIMATED GFR IS NOT APPLICABLE FOR DIALYSIS PATIENTS. [id number] 05:13:00 Test Item Value Reference Range Comments PARTIAL THROMBOPLASTIN TIME (BEAKER) (test 110.2 seconds 22.5-36.0 szpf=260) CBC W/PLT COUNT & AUTO [id number] 04:45:00 Test Item Value Reference Range Comments WHITE BLOOD CELL COUNT (BEAKER) (test blrg=021) 4.4 K/ L 3.5-10.5 RED BLOOD CELL COUNT (BEAKER) (test gvnk=986) 3.25 M/ L 4.63-6.08 HEMOGLOBIN (BEAKER) (test cafg=299) 10.1 GM/DL 13.7-17.5 HEMATOCRIT (BEAKER) (test zeia=774) 29.9 % 40.1-51.0 MEAN CORPUSCULAR VOLUME (BEAKER) (test nefp=000) 92.0 fL 79.0-92.2 MEAN CORPUSCULAR HEMOGLOBIN (BEAKER) (test 31.1 pg 25.7-32.2 vkog=731) MEAN CORPUSCULAR HEMOGLOBIN CONC (BEAKER) (test 33.8 GM/DL 32.3-36.5 awky=223) RED CELL DISTRIBUTION WIDTH (BEAKER) (test 14.5 % 11.6-14.4 vxzj=315) PLATELET COUNT (BEAKER) (test jcir=683) 297 K/CU MM 150-450 MEAN PLATELET VOLUME (BEAKER) (test nhze=934) 9.1 fL 9.4-12.4 NUCLEATED RED BLOOD CELLS (BEAKER) (test 0 /100 WBC 0-0 uiph=044) NEUTROPHILS RELATIVE PERCENT (BEAKER) (test 44 % bene=670) LYMPHOCYTES RELATIVE PERCENT (BEAKER) (test 40 % gqex=120) MONOCYTES RELATIVE PERCENT (BEAKER) (test 11 % hvpz=741) EOSINOPHILS RELATIVE PERCENT (BEAKER) (test 4 % zcxe=019) BASOPHILS RELATIVE PERCENT (BEAKER) (test 1 % vzoy=340) NEUTROPHILS ABSOLUTE COUNT (BEAKER) (test 1.96 K/ L 1.78-5.38 gkyt=871) LYMPHOCYTES ABSOLUTE COUNT (BEAKER) (test 1.77 K/ L 1.32-3.57 dufv=723) MONOCYTES ABSOLUTE COUNT (BEAKER) (test 0.49 K/ L 0.30-0.82 jvcc=018) EOSINOPHILS ABSOLUTE COUNT (BEAKER) (test 0.16 K/ L 0.04-0.54 fbjk=897) BASOPHILS ABSOLUTE COUNT (BEAKER) (test 0.05 K/ L 0.01-0.08 zzka=316) IMMATURE GRANULOCYTES-RELATIVE PERCENT (BEAKER) 0 % 0-1 (test cawb=4021) [id number] 21:32:00 Test Item Value Reference Range Comments PARTIAL THROMBOPLASTIN TIME (BEAKER) (test 118.1 seconds 22.5-36.0 wwhb=088) BASIC METABOLIC [id number] 14:23:00 Test Item Value Reference Range Comments SODIUM (BEAKER) (test 139 meq/L 136-145 zkai=248) POTASSIUM (BEAKER) (test 3.6 meq/L 3.5-5.1 stut=684) CHLORIDE (BEAKER) (test 103 meq/L 98-107 lacw=259) CO2 (BEAKER) (test 29 meq/L 22-29 dmwd=995) BLOOD UREA NITROGEN 3 mg/dL 7-21 (BEAKER) (test vmpk=913) CREATININE (BEAKER) (test 0.54 mg/dL 0.57-1.25 zclt=166) GLUCOSE RANDOM (BEAKER) 108 mg/dL 70-105 (test gdsw=181) CALCIUM (BEAKER) (test 8.6 mg/dL 8.4-10.2 qqvz=387) EGFR (BEAKER) (test 170 mL/min/1.73 sq m ESTIMATED GFR IS NOT njhy=9520) ACCURATE CREATININE CLEARANCE IN PREDICTING GLOMERULAR FILTRATION RATE. ESTIMATED GFR IS NOT APPLICABLE FOR DIALYSIS PATIENTS. [id number] 14:06:00 Test Item Value Reference Range Comments PARTIAL THROMBOPLASTIN TIME (BEAKER) (test 66.8 seconds 22.5-36.0 ikkg=816) CBC W/PLT COUNT & AUTO [id number] 13:57:00 Test Item Value Reference Range Comments WHITE BLOOD CELL COUNT (BEAKER) (test bqmy=572) 4.6 K/ L 3.5-10.5 RED BLOOD CELL COUNT (BEAKER) (test zxxr=440) 3.95 M/ L 4.63-6.08 HEMOGLOBIN (BEAKER) (test rsvf=707) 11.9 GM/DL 13.7-17.5 HEMATOCRIT (BEAKER) (test kmsm=775) 36.5 % 40.1-51.0 MEAN CORPUSCULAR VOLUME (BEAKER) (test hpuc=292) 92.4 fL 79.0-92.2 MEAN CORPUSCULAR HEMOGLOBIN (BEAKER) (test 30.1 pg 25.7-32.2 okio=065) MEAN CORPUSCULAR HEMOGLOBIN CONC (BEAKER) (test 32.6 GM/DL 32.3-36.5 txdw=352) RED CELL DISTRIBUTION WIDTH (BEAKER) (test 14.2 % 11.6-14.4 bajo=136) PLATELET COUNT (BEAKER) (test dwxg=903) 347 K/CU MM 150-450 MEAN PLATELET VOLUME (BEAKER) (test scsa=179) 9.2 fL 9.4-12.4 NUCLEATED RED BLOOD CELLS (BEAKER) (test 0 /100 WBC 0-0 hzeq=912) NEUTROPHILS RELATIVE PERCENT (BEAKER) (test 44 % lyix=795) LYMPHOCYTES RELATIVE PERCENT (BEAKER) (test 37 % udoj=679) MONOCYTES RELATIVE PERCENT (BEAKER) (test 13 % vhfy=439) EOSINOPHILS RELATIVE PERCENT (BEAKER) (test 5 % xycj=303) BASOPHILS RELATIVE PERCENT (BEAKER) (test 1 % ubil=626) NEUTROPHILS ABSOLUTE COUNT (BEAKER) (test 1.99 K/ L 1.78-5.38 sqcv=878) LYMPHOCYTES ABSOLUTE COUNT (BEAKER) (test 1.69 K/ L 1.32-3.57 pwug=098) MONOCYTES ABSOLUTE COUNT (BEAKER) (test 0.61 K/ L 0.30-0.82 uyzf=630) EOSINOPHILS ABSOLUTE COUNT (BEAKER) (test 0.21 K/ L 0.04-0.54 ysjv=616) BASOPHILS ABSOLUTE COUNT (BEAKER) (test 0.05 K/ L 0.01-0.08 pmtv=366) IMMATURE GRANULOCYTES-RELATIVE PERCENT (BEAKER) 0 % 0-1 (test eppv=9524) BASIC METABOLIC [id number] 07:03:00 Test Item Value Reference Range Comments SODIUM (BEAKER) (test 140 meq/L 136-145 mpup=929) POTASSIUM (BEAKER) (test 3.4 meq/L 3.5-5.1 ajqf=829) CHLORIDE (BEAKER) (test 100 meq/L 98-107 dlvu=493) CO2 (BEAKER) (test 30 meq/L 22-29 mmyl=654) BLOOD UREA NITROGEN 3 mg/dL 7-21 (BEAKER) (test hwne=078) CREATININE (BEAKER) (test 0.56 mg/dL 0.57-1.25 rroe=608) GLUCOSE RANDOM (BEAKER) 102 mg/dL 70-105 (test qdzu=786) CALCIUM (BEAKER) (test 9.2 mg/dL 8.4-10.2 slca=707) EGFR (BEAKER) (test 163 mL/min/1.73 sq m ESTIMATED GFR IS NOT ijvu=1235) ACCURATE CREATININE CLEARANCE IN PREDICTING GLOMERULAR FILTRATION RATE. ESTIMATED GFR IS NOT APPLICABLE FOR DIALYSIS PATIENTS. [id number] 06:47:00 Test Item Value Reference Range Comments PARTIAL THROMBOPLASTIN TIME (BEAKER) (test 46.7 seconds 22.5-36.0 lvzj=801) [id number] 00:50:00 Test Item Value Reference Range Comments PARTIAL THROMBOPLASTIN TIME (BEAKER) (test 53.5 seconds 22.5-36.0 mbtp=657) [id number] 17:34:00 Test Item Value Reference Range Comments PARTIAL THROMBOPLASTIN TIME (BEAKER) (test 45.8 seconds 22.5-36.0 vlqp=676) [id number] 08:32:00 Test Item Value Reference Range Comments PARTIAL THROMBOPLASTIN TIME (BEAKER) (test 38.7 seconds 22.5-36.0 vfqt=428) Prior to initiating heparinBASIC METABOLIC [id number] 06:05:00 Test Item Value Reference Range Comments SODIUM (BEAKER) (test 136 meq/L 136-145 oniz=137) POTASSIUM (BEAKER) (test 3.3 meq/L 3.5-5.1 snyy=601) CHLORIDE (BEAKER) (test 102 meq/L 98-107 lzwi=672) CO2 (BEAKER) (test 26 meq/L 22-29 puyr=837) BLOOD UREA NITROGEN 2 mg/dL 7-21 (BEAKER) (test yqfo=028) CREATININE (BEAKER) (test 0.55 mg/dL 0.57-1.25 hdhf=908) GLUCOSE RANDOM (BEAKER) 124 mg/dL 70-105 (test nntd=674) CALCIUM (BEAKER) (test 8.0 mg/dL 8.4-10.2 fljq=531) EGFR (BEAKER) (test 167 mL/min/1.73 sq m ESTIMATED GFR IS NOT iayx=7193) ACCURATE CREATININE CLEARANCE IN PREDICTING GLOMERULAR FILTRATION RATE. ESTIMATED GFR IS NOT APPLICABLE FOR DIALYSIS PATIENTS. BLOOD [id number] 06:00:00 Test Item Value Reference Range Comments CULTURE (BEAKER) (test awln=8480) No growth in 5 days BLOOD [id number] 06:00:00 Test Item Value Reference Range Comments CULTURE (BEAKER) (test bkur=0210) No growth in 5 days [id number] 03:55:00 Test Item Value Reference Range Comments PHOSPHORUS (BEAKER) (test tfkl=442) 2.8 mg/dL 2.3-4.7 [id number] 03:55:00 Test Item Value Reference Range Comments MAGNESIUM (BEAKER) (test wgal=383) 1.3 mg/dL 1.6-2.6 BASIC METABOLIC [id number] 03:55:00 Test Item Value Reference Range Comments SODIUM (BEAKER) (test 137 meq/L 136-145 vkcq=467) POTASSIUM (BEAKER) (test 3.2 meq/L 3.5-5.1 kdhe=109) CHLORIDE (BEAKER) (test 103 meq/L 98-107 mhzg=772) CO2 (BEAKER) (test 22 meq/L 22-29 zmqn=141) BLOOD UREA NITROGEN 3 mg/dL 7-21 (BEAKER) (test puxr=225) CREATININE (BEAKER) (test 0.51 mg/dL 0.57-1.25 xhcp=924) GLUCOSE RANDOM (BEAKER) 65 mg/dL 70-105 (test luqn=698) CALCIUM (BEAKER) (test 8.0 mg/dL 8.4-10.2 chtq=452) EGFR (BEAKER) (test 182 mL/min/1.73 sq m ESTIMATED GFR IS NOT jhjf=2424) ACCURATE CREATININE CLEARANCE IN PREDICTING GLOMERULAR FILTRATION RATE. ESTIMATED GFR IS NOT APPLICABLE FOR DIALYSIS PATIENTS. [id number] 03:55:00 Test Item Value Reference Range Comments LIPASE (BEAKER) (test majb=305) 210 U/L 8-78 CBC W/PLT COUNT & AUTO [id number] 03:37:00 Test Item Value Reference Range Comments WHITE BLOOD CELL COUNT (BEAKER) (test zedt=535) 6.1 K/ L 3.5-10.5 RED BLOOD CELL COUNT (BEAKER) (test zzsz=383) 3.63 M/ L 4.63-6.08 HEMOGLOBIN (BEAKER) (test kyuq=112) 11.1 GM/DL 13.7-17.5 HEMATOCRIT (BEAKER) (test ypys=655) 33.0 % 40.1-51.0 MEAN CORPUSCULAR VOLUME (BEAKER) (test rbzk=638) 90.9 fL 79.0-92.2 MEAN CORPUSCULAR HEMOGLOBIN (BEAKER) (test 30.6 pg 25.7-32.2 uqfa=245) MEAN CORPUSCULAR HEMOGLOBIN CONC (BEAKER) (test 33.6 GM/DL 32.3-36.5 spth=175) RED CELL DISTRIBUTION WIDTH (BEAKER) (test 14.3 % 11.6-14.4 xenf=748) PLATELET COUNT (BEAKER) (test ozko=584) 262 K/CU MM 150-450 MEAN PLATELET VOLUME (BEAKER) (test zveh=773) 9.1 fL 9.4-12.4 NUCLEATED RED BLOOD CELLS (BEAKER) (test 0 /100 WBC 0-0 dytc=183) NEUTROPHILS RELATIVE PERCENT (BEAKER) (test 69 % iptm=723) LYMPHOCYTES RELATIVE PERCENT (BEAKER) (test 17 % opju=856) MONOCYTES RELATIVE PERCENT (BEAKER) (test 10 % ainu=754) EOSINOPHILS RELATIVE PERCENT (BEAKER) (test 3 % uodz=953) BASOPHILS RELATIVE PERCENT (BEAKER) (test 0 % wsyl=655) NEUTROPHILS ABSOLUTE COUNT (BEAKER) (test 4.21 K/ L 1.78-5.38 knuc=785) LYMPHOCYTES ABSOLUTE COUNT (BEAKER) (test 1.04 K/ L 1.32-3.57 sgex=291) MONOCYTES ABSOLUTE COUNT (BEAKER) (test 0.60 K/ L 0.30-0.82 ptca=296) EOSINOPHILS ABSOLUTE COUNT (BEAKER) (test 0.18 K/ L 0.04-0.54 zmqy=671) BASOPHILS ABSOLUTE COUNT (BEAKER) (test 0.02 K/ L 0.01-0.08 cfqs=453) IMMATURE GRANULOCYTES-RELATIVE PERCENT (BEAKER) 1 % 0-1 (test fgae=8796) CT, ABDOMEN - PELVIS, PANCREAS [id number] 00:22:00Reason for exam:-&gt ;pancreatitisFINAL REPORT CT, ABDOMEN [...] Verified Date/ Time: 09/04/2017 00:22:52 Reading Location: [address] Reading Room [id number] 06:00:00 Test Item Value Reference Range Comments MAGNESIUM (BEAKER) (test 1.6 mg/dL 1.6-2.6 Specimen slightly hemolyzed bxbe=772) [id number] 06:00:00 Test Item Value Reference Range Comments PHOSPHORUS (BEAKER) (test 3.4 mg/dL 2.3-4.7 Specimen slightly hemolyzed yqtr=625) BASIC METABOLIC [id number] 06:00:00 Test Item Value Reference Range Comments SODIUM (BEAKER) (test 132 meq/L 136-145 xcno=994) POTASSIUM (BEAKER) (test 3.9 meq/L 3.5-5.1 Specimen slightly alwq=927) hemolyzed CHLORIDE (BEAKER) (test 101 meq/L 98-107 qoox=771) CO2 (BEAKER) (test 22 meq/L 22-29 tmte=164) BLOOD UREA NITROGEN 7 mg/dL 7-21 (BEAKER) (test sqwg=554) CREATININE (BEAKER) (test 0.49 mg/dL 0.57-1.25 Specimen slightly cimm=732) hemolyzed GLUCOSE RANDOM (BEAKER) 59 mg/dL 70-105 (test dzso=802) CALCIUM (BEAKER) (test 8.1 mg/dL 8.4-10.2 pbac=168) EGFR (BEAKER) (test 190 mL/min/1.73 sq m ESTIMATED GFR IS NOT sbgn=6159) ACCURATE CREATININE CLEARANCE IN PREDICTING GLOMERULAR FILTRATION RATE. ESTIMATED GFR IS NOT APPLICABLE FOR DIALYSIS PATIENTS. HEPATIC FUNCTION [id number] 06:00:00 Test Item Value Reference Range Comments TOTAL PROTEIN (BEAKER) (test 5.7 gm/dL 6.0-8.3 Specimen slightly hemolyzed eyil=867) ALBUMIN (BEAKER) (test 3.0 g/dL 3.5-5.0 Specimen slightly hemolyzed fxrf=6946) BILIRUBIN TOTAL (BEAKER) (test 1.2 mg/dL 0.2-1.2 Specimen slightly hemolyzed ppqv=754) BILIRUBIN DIRECT (BEAKER) (test 0.4 mg/dL 0.1-0.5 Specimen slightly hemolyzed jbis=274) ALKALINE PHOSPHATASE (BEAKER) 62 U/L 40-150 (test gban=039) AST (SGOT) (BEAKER) (test 18 U/L 5-34 Specimen slightly hemolyzed svgh=065) ALT (SGPT) (BEAKER) (test < U/L 6-55 Specimen slightly hemolyzed dlfr=783) CBC W/PLT COUNT & AUTO [id number] 05:43:00 Test Item Value Reference Range Comments WHITE BLOOD CELL COUNT (BEAKER) (test buau=804) 8.4 K/ L 3.5-10.5 RED BLOOD CELL COUNT (BEAKER) (test gepw=482) 3.68 M/ L 4.63-6.08 HEMOGLOBIN (BEAKER) (test mvzy=678) 11.6 GM/DL 13.7-17.5 HEMATOCRIT (BEAKER) (test zryy=991) 34.4 % 40.1-51.0 MEAN CORPUSCULAR VOLUME (BEAKER) (test gged=584) 93.5 fL 79.0-92.2 MEAN CORPUSCULAR HEMOGLOBIN (BEAKER) (test 31.5 pg 25.7-32.2 vlyo=688) MEAN CORPUSCULAR HEMOGLOBIN CONC (BEAKER) (test 33.7 GM/DL 32.3-36.5 dvlg=638) RED CELL DISTRIBUTION WIDTH (BEAKER) (test 14.6 % 11.6-14.4 njys=856) PLATELET COUNT (BEAKER) (test rdmx=498) 221 K/CU MM 150-450 MEAN PLATELET VOLUME (BEAKER) (test dmul=304) 9.5 fL 9.4-12.4 NUCLEATED RED BLOOD CELLS (BEAKER) (test 0 /100 WBC 0-0 azao=185) NEUTROPHILS RELATIVE PERCENT (BEAKER) (test 75 % dpnl=357) LYMPHOCYTES RELATIVE PERCENT (BEAKER) (test 14 % ahcs=124) MONOCYTES RELATIVE PERCENT (BEAKER) (test 10 % krpx=878) EOSINOPHILS RELATIVE PERCENT (BEAKER) (test 1 % rlhd=019) BASOPHILS RELATIVE PERCENT (BEAKER) (test 0 % knxz=607) NEUTROPHILS ABSOLUTE COUNT (BEAKER) (test 6.27 K/ L 1.78-5.38 qyvl=137) LYMPHOCYTES ABSOLUTE COUNT (BEAKER) (test 1.16 K/ L 1.32-3.57 zsde=540) MONOCYTES ABSOLUTE COUNT (BEAKER) (test 0.87 K/ L 0.30-0.82 wqxk=127) EOSINOPHILS ABSOLUTE COUNT (BEAKER) (test 0.07 K/ L 0.04-0.54 bcwy=778) BASOPHILS ABSOLUTE COUNT (BEAKER) (test 0.03 K/ L 0.01-0.08 xicv=926) IMMATURE GRANULOCYTES-RELATIVE PERCENT (BEAKER) 0 % 0-1 (test rjby=7349) POCT-GLUCOSE [id number] 07:30:00 Test Item Value Reference Range Comments POC-GLUCOSE METER (BEAKER) 140 mg/dL 70-110 TESTED AT [address] (test sedg=0813) [place] [id number] POCT-GLUCOSE [id number] 07:30:00 Test Item Value Reference Range Comments POC-GLUCOSE METER (BEAKER) 59 mg/dL 70-110 TESTED AT [address] (test aicq=6453) [place] [id number] 05:16:00 Test Item Value Reference Range Comments MAGNESIUM (BEAKER) (test 1.7 mg/dL 1.6-2.6 Specimen slightly hemolyzed zqep=659) [id number] 05:16:00 Test Item Value Reference Range Comments PHOSPHORUS (BEAKER) (test 3.7 mg/dL 2.3-4.7 Specimen slightly hemolyzed vkxb=971) BASIC METABOLIC [id number] 05:16:00 Test Item Value Reference Range Comments SODIUM (BEAKER) (test 136 meq/L 136-145 zrjg=444) POTASSIUM (BEAKER) (test 4.1 meq/L 3.5-5.1 Specimen slightly payo=882) hemolyzed CHLORIDE (BEAKER) (test 105 meq/L 98-107 xusc=199) CO2 (BEAKER) (test 21 meq/L 22-29 zrvr=062) BLOOD UREA NITROGEN 12 mg/dL 7-21 (BEAKER) (test ewxf=605) CREATININE (BEAKER) (test 0.62 mg/dL 0.57-1.25 Specimen slightly ddvx=406) hemolyzed GLUCOSE RANDOM (BEAKER) 65 mg/dL 70-105 (test uemx=899) CALCIUM (BEAKER) (test 8.4 mg/dL 8.4-10.2 uwmj=799) EGFR (BEAKER) (test 145 mL/min/1.73 sq m ESTIMATED GFR IS NOT qbpm=8498) ACCURATE CREATININE CLEARANCE IN PREDICTING GLOMERULAR FILTRATION RATE. ESTIMATED GFR IS NOT APPLICABLE FOR DIALYSIS PATIENTS. HEPATIC FUNCTION [id number] 05:16:00 Test Item Value Reference Range Comments TOTAL PROTEIN (BEAKER) (test 5.9 gm/dL 6.0-8.3 Specimen slightly hemolyzed ittz=565) ALBUMIN (BEAKER) (test 3.3 g/dL 3.5-5.0 Specimen slightly hemolyzed yeym=2755) BILIRUBIN TOTAL (BEAKER) (test 1.4 mg/dL 0.2-1.2 Specimen slightly hemolyzed miut=823) BILIRUBIN DIRECT (BEAKER) (test 0.5 mg/dL 0.1-0.5 Specimen slightly hemolyzed aphq=042) ALKALINE PHOSPHATASE (BEAKER) 66 U/L 40-150 (test lgft=863) AST (SGOT) (BEAKER) (test 16 U/L 5-34 Specimen slightly hemolyzed piek=874) ALT (SGPT) (BEAKER) (test 6 U/L 6-55 Specimen slightly hemolyzed wbay=092) CBC W/PLT COUNT & AUTO [id number] 04:45:00 Test Item Value Reference Range Comments WHITE BLOOD CELL COUNT (BEAKER) (test lyve=101) 9.1 K/ L 3.5-10.5 RED BLOOD CELL COUNT (BEAKER) (test ucma=936) 4.04 M/ L 4.63-6.08 HEMOGLOBIN (BEAKER) (test hdsv=413) 12.3 GM/DL 13.7-17.5 HEMATOCRIT (BEAKER) (test tdgl=481) 38.1 % 40.1-51.0 MEAN CORPUSCULAR VOLUME (BEAKER) (test cegl=162) 94.3 fL 79.0-92.2 MEAN CORPUSCULAR HEMOGLOBIN (BEAKER) (test 30.4 pg 25.7-32.2 usac=610) MEAN CORPUSCULAR HEMOGLOBIN CONC (BEAKER) (test 32.3 GM/DL 32.3-36.5 xqrc=885) RED CELL DISTRIBUTION WIDTH (BEAKER) (test 15.7 % 11.6-14.4 exnz=102) PLATELET COUNT (BEAKER) (test dnzr=459) 243 K/CU MM 150-450 MEAN PLATELET VOLUME (BEAKER) (test tvuj=536) 9.5 fL 9.4-12.4 NUCLEATED RED BLOOD CELLS (BEAKER) (test 0 /100 WBC 0-0 yxln=460) NEUTROPHILS RELATIVE PERCENT (BEAKER) (test 72 % suwt=835) LYMPHOCYTES RELATIVE PERCENT (BEAKER) (test 16 % bgoj=389) MONOCYTES RELATIVE PERCENT (BEAKER) (test 10 % jssk=655) EOSINOPHILS RELATIVE PERCENT (BEAKER) (test 1 % dazh=127) BASOPHILS RELATIVE PERCENT (BEAKER) (test 0 % rjgx=906) NEUTROPHILS ABSOLUTE COUNT (BEAKER) (test 6.58 K/ L 1.78-5.38 tgom=737) LYMPHOCYTES ABSOLUTE COUNT (BEAKER) (test 1.48 K/ L 1.32-3.57 uves=579) MONOCYTES ABSOLUTE COUNT (BEAKER) (test 0.95 K/ L 0.30-0.82 bymn=972) EOSINOPHILS ABSOLUTE COUNT (BEAKER) (test 0.05 K/ L 0.04-0.54 mhtv=524) BASOPHILS ABSOLUTE COUNT (BEAKER) (test 0.04 K/ L 0.01-0.08 jawn=413) IMMATURE GRANULOCYTES-RELATIVE PERCENT (BEAKER) 0 % 0-1 (test sxev=2406) HEMOGLOBIN [id number] 10:23:00 Test Item Value Reference Range Comments HEMOGLOBIN A1C (BEAKER) (test ohiw=016) 4.7 % 4.3-6.1 U/S, ABDOMINAL, [id number] 09:53:00Abdomen limited area? Add comment if clarification [...] Nelson MDReport Verified Date/Time:09/01/2017 09:53:12 Reading Location: [address] Ultrasound Reading Room SEDIMENTATION [id number] 08:01:00 Test Item Value Reference Range Comments SEDIMENTATION RATE, ERYTHROCYTE (BEAKER) (test 3 mm/HR 0-15 yqum=261) TSH/FREE T4 IF [id number] 04:12:00 Test Item Value Reference Range Comments THYROID STIMULATING HORMONE (BEAKER) (test 0.36 uIU/mL 0.35-4.94 fltd=004) CREATINE KINASE (CK), TOTAL AND [id number] 04:03:00 Test Item Value Reference Range Comments CREATINE KINASE TOTAL (BEAKER) (test gwyx=550) 29 U/L 29-200 CREATINE KINASE-MB (BEAKER) (test qkvy=669) 0.4 ng/mL 0.0-6.6 CREATINE KINASE-MB INDEX (BEAKER) (test peug=109) 1.4 % CK-MB Reference Range:<6.7 Normal6.7-10.0 Borderline>10.0 AbnormalTROPONIN [id number] 04:03:00 Test Item Value Reference Range Comments TROPONIN I (BEAKER) (test stwp=194) < ng/mL 0.00-0.03 Troponin I (TnI) levels [...] failure, acidosis, acute neurological disease, and persistent tachyarrhythmia.[id number] 03:53:00 Test Item Value Reference Range Comments PHOSPHORUS (BEAKER) (test utyr=236) 3.5 mg/dL 2.3-4.7 [id number] 03:53:00 Test Item Value Reference Range Comments MAGNESIUM (BEAKER) (test lgii=301) 1.7 mg/dL 1.6-2.6 BASIC METABOLIC [id number] 03:53:00 Test Item Value Reference Range Comments SODIUM (BEAKER) (test 137 meq/L 136-145 uocz=272) POTASSIUM (BEAKER) (test 3.8 meq/L 3.5-5.1 kfwe=438) CHLORIDE (BEAKER) (test 105 meq/L 98-107 ktqt=541) CO2 (BEAKER) (test 23 meq/L 22-29 mqog=408) BLOOD UREA NITROGEN 7 mg/dL 7-21 (BEAKER) (test oxhq=888) CREATININE (BEAKER) (test 0.62 mg/dL 0.57-1.25 lbhw=546) GLUCOSE RANDOM (BEAKER) 102 mg/dL 70-105 (test iywg=164) CALCIUM (BEAKER) (test 9.0 mg/dL 8.4-10.2 vtqt=448) EGFR (BEAKER) (test 145 mL/min/1.73 sq m ESTIMATED GFR IS NOT tcnz=4872) ACCURATE CREATININE CLEARANCE IN PREDICTING GLOMERULAR FILTRATION RATE. ESTIMATED GFR IS NOT APPLICABLE FOR DIALYSIS PATIENTS. LIPID [id number] 03:53:00 Test Item Value Reference Range Comments TRIGLYCERIDES (BEAKER) (test vfer=074) 76 mg/dL CHOLESTEROL (BEAKER) (test rspm=577) 118 mg/dL HDL CHOLESTEROL (BEAKER) (test hhfi=845) 37 mg/dL LDL CHOLESTEROL CALCULATED (BEAKER) (test 66 mg/dL rnnv=426) Triglyceride Reference Range: Low Risk <150 Borderline 150- 199 High Risk 200-499 Very High Risk >=500Cholesterol Reference Range: Low Risk <200 Borderline 200-239 High Risk > 240HDL Cholesterol Reference Range: Low Risk >=60 High Risk <40LDL Cholesterol Reference Range: Optimal <100 Near Optimal 100-129 Borderline 130-159 High 160-189 Very High >=190HEPATIC FUNCTION [id number] 03:53:00 Test Item Value Reference Range Comments TOTAL PROTEIN (BEAKER) (test uoim=371) 6.8 gm/dL 6.0-8.3 ALBUMIN (BEAKER) (test iwzy=9502) 3.9 g/dL 3.5-5.0 BILIRUBIN TOTAL (BEAKER) (test ccob=420) 1.2 mg/dL 0.2-1.2 BILIRUBIN DIRECT (BEAKER) (test bsbn=819) 0.5 mg/dL 0.1-0.5 ALKALINE PHOSPHATASE (BEAKER) (test ggqo=131) 81 U/L 40-150 AST (SGOT) (BEAKER) (test hqyp=923) 13 U/L 5-34 ALT (SGPT) (BEAKER) (test uzoy=233) 6 U/L 6-55 [id number] 03:53:00 Test Item Value Reference Range Comments AMYLASE (BEAKER) (test ujoi=650) 383 U/L 25-125 [id number] 03:53:00 Test Item Value Reference Range Comments LIPASE (BEAKER) (test rbfd=071) 266 U/L 8-78 C-REACTIVE [id number] 03:53:00 Test Item Value Reference Range Comments C-REACTIVE PROTEIN (BEAKER) (test nejb=732) 0.23 mg/dL 0.00-0.50 CBC W/PLT COUNT & AUTO [id number] 03:38:00 Test Item Value Reference Range Comments WHITE BLOOD CELL COUNT (BEAKER) (test dinb=482) 10.7 K/ L 3.5-10.5 RED BLOOD CELL COUNT (BEAKER) (test bogl=718) 4.45 M/ L 4.63-6.08 HEMOGLOBIN (BEAKER) (test qlvm=875) 13.6 GM/DL 13.7-17.5 HEMATOCRIT (BEAKER) (test dofo=171) 40.4 % 40.1-51.0 MEAN CORPUSCULAR VOLUME (BEAKER) (test boaa=998) 90.8 fL 79.0-92.2 MEAN CORPUSCULAR HEMOGLOBIN (BEAKER) (test 30.6 pg 25.7-32.2 xqts=422) MEAN CORPUSCULAR HEMOGLOBIN CONC (BEAKER) (test 33.7 GM/DL 32.3-36.5 oark=195) RED CELL DISTRIBUTION WIDTH (BEAKER) (test 15.5 % 11.6-14.4 dkml=196) PLATELET COUNT (BEAKER) (test qoqh=098) 277 K/CU MM 150-450 MEAN PLATELET VOLUME (BEAKER) (test hbwl=117) 9.7 fL 9.4-12.4 NUCLEATED RED BLOOD CELLS (BEAKER) (test 0 /100 WBC 0-0 fynb=633) NEUTROPHILS RELATIVE PERCENT (BEAKER) (test 70 % jajl=455) LYMPHOCYTES RELATIVE PERCENT (BEAKER) (test 18 % shkn=151) MONOCYTES RELATIVE PERCENT (BEAKER) (test 11 % kzig=181) EOSINOPHILS RELATIVE PERCENT (BEAKER) (test 0 % pgvp=263) BASOPHILS RELATIVE PERCENT (BEAKER) (test 0 % bdkp=190) NEUTROPHILS ABSOLUTE COUNT (BEAKER) (test 7.46 K/ L 1.78-5.38 gtwl=795) LYMPHOCYTES ABSOLUTE COUNT (BEAKER) (test 1.93 K/ L 1.32-3.57 xkgb=798) MONOCYTES ABSOLUTE COUNT (BEAKER) (test 1.17 K/ L 0.30-0.82 iyts=221) EOSINOPHILS ABSOLUTE COUNT (BEAKER) (test 0.02 K/ L 0.04-0.54 oywq=326) BASOPHILS ABSOLUTE COUNT (BEAKER) (test 0.03 K/ L 0.01-0.08 oiam=205) IMMATURE GRANULOCYTES-RELATIVE PERCENT (BEAKER) 0 % 0-1 (test sjwz=9409) COMPREHENSIVE METABOLIC [id number] 14:02:00 Test Item Value Reference Range Comments TOTAL PROTEIN (BEAKER) 7.8 gm/dL 6.0-8.3 (test ufkm=694) ALBUMIN (BEAKER) (test 3.9 g/dL 3.5-5.0 bycx=1575) ALKALINE PHOSPHATASE 62 U/L 40-150 (BEAKER) (test qafe=686) BILIRUBIN TOTAL (BEAKER) 0.3 mg/dL 0.2-1.2 (test irbs=075) SODIUM (BEAKER) (test 139 meq/L 136-145 rspp=605) POTASSIUM (BEAKER) (test 4.2 meq/L 3.5-5.1 qrsd=633) CHLORIDE (BEAKER) (test 104 meq/L 98-107 wdgv=889) CO2 (BEAKER) (test 26 meq/L 22-29 imha=701) BLOOD UREA NITROGEN 9 mg/dL 7-21 (BEAKER) (test qhak=952) CREATININE (BEAKER) (test 0.64 mg/dL 0.57-1.25 tmyt=111) GLUCOSE RANDOM (BEAKER) 78 mg/dL 70-105 (test slzf=404) CALCIUM (BEAKER) (test 9.5 mg/dL 8.4-10.2 favh=841) AST (SGOT) (BEAKER) (test 18 U/L 5-34 rlnv=150) ALT (SGPT) (BEAKER) (test 8 U/L 6-55 tvxs=918) EGFR (BEAKER) (test 141 mL/min/1.73 sq ESTIMATED GFR IS NOT lins=8627) m ACCURATE CREATININE CLEARANCE IN PREDICTING GLOMERULAR FILTRATION RATE. ESTIMATED GFR IS NOT APPLICABLE FOR DIALYSIS PATIENTS. COMPREHENSIVE METABOLIC [id number] 06:08:00 Test Item Value Reference Range Comments TOTAL PROTEIN (BEAKER) 7.0 gm/dL 6.0-8.3 Specimen slightly (test rszv=688) hemolyzed ALBUMIN (BEAKER) (test 3.4 g/dL 3.5-5.0 Specimen slightly xvhr=8500) hemolyzed ALKALINE PHOSPHATASE 58 U/L 40-150 (BEAKER) (test gbuy=469) BILIRUBIN TOTAL (BEAKER) 0.4 mg/dL 0.2-1.2 Specimen slightly (test dddz=664) hemolyzed SODIUM (BEAKER) (test 139 meq/L 136-145 zibv=963) POTASSIUM (BEAKER) (test 4.5 meq/L 3.5-5.1 Specimen slightly cwfy=678) hemolyzed CHLORIDE (BEAKER) (test 103 meq/L 98-107 vpjj=888) CO2 (BEAKER) (test 27 meq/L 22-29 rare=654) BLOOD UREA NITROGEN 2 mg/dL 7-21 (BEAKER) (test ozkt=335) CREATININE (BEAKER) (test 0.55 mg/dL 0.57-1.25 Specimen slightly irdi=631) hemolyzed GLUCOSE RANDOM (BEAKER) 85 mg/dL 70-105 (test mjxw=158) CALCIUM (BEAKER) (test 9.3 mg/dL 8.4-10.2 jlny=712) AST (SGOT) (BEAKER) (test 18 U/L 5-34 Specimen slightly xobv=448) hemolyzed ALT (SGPT) (BEAKER) (test 8 U/L 6-55 Specimen slightly xtmx=370) hemolyzed EGFR (BEAKER) (test 168 mL/min/1.73 sq ESTIMATED GFR IS NOT onpb=5540) m ACCURATE CREATININE CLEARANCE IN PREDICTING GLOMERULAR FILTRATION RATE. ESTIMATED GFR IS NOT APPLICABLE FOR DIALYSIS PATIENTS. CBC (HEMOGRAM ONLY)2017-05-17 05:20:00 Test Item Value Reference Range Comments WHITE BLOOD CELL COUNT (BEAKER) (test wxzc=452) 6.4 K/ L 3.5-10.5 RED BLOOD CELL COUNT (BEAKER) (test onub=829) 3.84 M/ L 4.63-6.08 HEMOGLOBIN (BEAKER) (test cvjz=113) 11.5 GM/DL 13.7-17.5 HEMATOCRIT (BEAKER) (test vcvi=999) 35.2 % 40.1-51.0 MEAN CORPUSCULAR VOLUME (BEAKER) (test jajs=713) 91.7 fL 79.0-92.2 MEAN CORPUSCULAR HEMOGLOBIN (BEAKER) (test 29.9 pg 25.7-32.2 ksgt=745) MEAN CORPUSCULAR HEMOGLOBIN CONC (BEAKER) (test 32.7 GM/DL 32.3-36.5 ywqt=600) RED CELL DISTRIBUTION WIDTH (BEAKER) (test 14.1 % 11.6-14.4 svxh=479) PLATELET COUNT (BEAKER) (test wxjd=091) 434 K/CU MM 150-450 MEAN PLATELET VOLUME (BEAKER) (test fxes=727) 9.4 fL 9.4-12.4 NUCLEATED RED BLOOD CELLS (BEAKER) (test 0 /100 WBC 0-0 pagy=962) HEPATIC FUNCTION [id number] 11:22:00 Test Item Value Reference Range Comments TOTAL PROTEIN (BEAKER) (test agim=707) 6.9 gm/dL 6.0-8.3 ALBUMIN (BEAKER) (test dqge=4140) 3.4 g/dL 3.5-5.0 BILIRUBIN TOTAL (BEAKER) (test hxcp=317) 0.4 mg/dL 0.2-1.2 BILIRUBIN DIRECT (BEAKER) (test duhc=538) 0.2 mg/dL 0.1-0.5 ALKALINE PHOSPHATASE (BEAKER) (test jqwj=120) 65 U/L 40-150 AST (SGOT) (BEAKER) (test ykdo=338) 14 U/L 5-34 ALT (SGPT) (BEAKER) (test lbhf=840) 8 U/L 6-55 CBC W/PLT COUNT & AUTO [id number] 11:16:00 Test Item Value Reference Range Comments WHITE BLOOD CELL COUNT (BEAKER) (test nhcp=231) 7.0 K/ L 3.5-10.5 RED BLOOD CELL COUNT (BEAKER) (test udvt=528) 3.90 M/ L 4.63-6.08 HEMOGLOBIN (BEAKER) (test jhwq=101) 11.9 GM/DL 13.7-17.5 HEMATOCRIT (BEAKER) (test caxh=395) 35.7 % 40.1-51.0 MEAN CORPUSCULAR VOLUME (BEAKER) (test bpph=741) 91.5 fL 79.0-92.2 MEAN CORPUSCULAR HEMOGLOBIN (BEAKER) (test 30.5 pg 25.7-32.2 beui=240) MEAN CORPUSCULAR HEMOGLOBIN CONC (BEAKER) (test 33.3 GM/DL 32.3-36.5 cqzj=284) RED CELL DISTRIBUTION WIDTH (BEAKER) (test 14.0 % 11.6-14.4 fcnw=468) PLATELET COUNT (BEAKER) (test xuvt=217) 452 K/CU MM 150-450 MEAN PLATELET VOLUME (BEAKER) (test jchg=000) 9.0 fL 9.4-12.4 NUCLEATED RED BLOOD CELLS (BEAKER) (test 0 /100 WBC 0-0 oqdw=217) NEUTROPHILS RELATIVE PERCENT (BEAKER) (test 59 % zmun=813) LYMPHOCYTES RELATIVE PERCENT (BEAKER) (test 21 % pdtw=215) MONOCYTES RELATIVE PERCENT (BEAKER) (test 8 % bhbb=070) EOSINOPHILS RELATIVE PERCENT (BEAKER) (test 10 % nacw=924) BASOPHILS RELATIVE PERCENT (BEAKER) (test 1 % ywdj=547) NEUTROPHILS ABSOLUTE COUNT (BEAKER) (test 4.12 K/ L 1.78-5.38 xwji=355) LYMPHOCYTES ABSOLUTE COUNT (BEAKER) (test 1.45 K/ L 1.32-3.57 puco=696) MONOCYTES ABSOLUTE COUNT (BEAKER) (test 0.58 K/ L 0.30-0.82 yuwp=669) EOSINOPHILS ABSOLUTE COUNT (BEAKER) (test 0.70 K/ L 0.04-0.54 futv=079) BASOPHILS ABSOLUTE COUNT (BEAKER) (test 0.10 K/ L 0.01-0.08 pyfb=339) IMMATURE GRANULOCYTES-RELATIVE PERCENT (BEAKER) 0 % 0-1 (test rxmm=5974) BASIC METABOLIC [id number] 06:43:00 Test Item Value Reference Range Comments SODIUM (BEAKER) (test 138 meq/L 136-145 lpgr=342) POTASSIUM (BEAKER) (test 3.5 meq/L 3.5-5.1 pttn=071) CHLORIDE (BEAKER) (test 100 meq/L 98-107 xguh=017) CO2 (BEAKER) (test 27 meq/L 22-29 qnqm=947) BLOOD UREA NITROGEN 2 mg/dL 7-21 (BEAKER) (test dkgf=113) CREATININE (BEAKER) (test 0.53 mg/dL 0.57-1.25 wtpk=772) GLUCOSE RANDOM (BEAKER) 82 mg/dL 70-105 (test viwc=605) CALCIUM (BEAKER) (test 9.0 mg/dL 8.4-10.2 tudc=313) EGFR (BEAKER) (test 175 mL/min/1.73 sq m ESTIMATED GFR IS NOT ocho=6091) ACCURATE CREATININE CLEARANCE IN PREDICTING GLOMERULAR FILTRATION RATE. ESTIMATED GFR IS NOT APPLICABLE FOR DIALYSIS PATIENTS. BASIC METABOLIC [id number] 05:14:00 Test Item Value Reference Range Comments SODIUM (BEAKER) (test 132 meq/L 136-145 fodl=568) POTASSIUM (BEAKER) (test 3.8 meq/L 3.5-5.1 jlgx=690) CHLORIDE (BEAKER) (test 101 meq/L 98-107 odwo=969) CO2 (BEAKER) (test 18 meq/L 22-29 bphf=018) BLOOD UREA NITROGEN 4 mg/dL 7-21 (BEAKER) (test ygds=416) CREATININE (BEAKER) (test 0.52 mg/dL 0.57-1.25 mjvh=042) GLUCOSE RANDOM (BEAKER) 58 mg/dL 70-105 (test ivqm=674) CALCIUM (BEAKER) (test 8.7 mg/dL 8.4-10.2 jzwo=970) EGFR (BEAKER) (test 179 mL/min/1.73 sq m ESTIMATED GFR IS NOT ewww=6214) ACCURATE CREATININE CLEARANCE IN PREDICTING GLOMERULAR FILTRATION RATE. ESTIMATED GFR IS NOT APPLICABLE FOR DIALYSIS PATIENTS. CBC (HEMOGRAM ONLY)2017-05-15 04:57:00 Test Item Value Reference Range Comments WHITE BLOOD CELL COUNT (BEAKER) (test ucei=118) 13.4 K/ L 3.5-10.5 RED BLOOD CELL COUNT (BEAKER) (test qkws=831) 3.81 M/ L 4.63-6.08 HEMOGLOBIN (BEAKER) (test eeni=014) 11.4 GM/DL 13.7-17.5 HEMATOCRIT (BEAKER) (test xldl=364) 35.1 % 40.1-51.0 MEAN CORPUSCULAR VOLUME (BEAKER) (test seky=132) 92.1 fL 79.0-92.2 MEAN CORPUSCULAR HEMOGLOBIN (BEAKER) (test 29.9 pg 25.7-32.2 lgmm=268) MEAN CORPUSCULAR HEMOGLOBIN CONC (BEAKER) (test 32.5 GM/DL 32.3-36.5 klzx=688) RED CELL DISTRIBUTION WIDTH (BEAKER) (test 14.3 % 11.6-14.4 rcjx=867) PLATELET COUNT (BEAKER) (test sian=726) 502 K/CU MM 150-450 MEAN PLATELET VOLUME (BEAKER) (test gmkk=473) 9.6 fL 9.4-12.4 NUCLEATED RED BLOOD CELLS (BEAKER) (test 0 /100 WBC 0-0 qvdb=348) LIPID [id number] 05:00:00 Test Item Value Reference Range Comments TRIGLYCERIDES (BEAKER) (test emxz=887) 71 mg/dL CHOLESTEROL (BEAKER) (test ynrv=885) 108 mg/dL HDL CHOLESTEROL (BEAKER) (test dcue=704) 22 mg/dL LDL CHOLESTEROL CALCULATED (BEAKER) (test 72 mg/dL ebtr=132) Triglyceride Reference Range: Low Risk <150 Borderline 150- 199 High Risk 200-499 Very High Risk >=500Cholesterol Reference Range: Low Risk <200 Borderline 200-239 High Risk > 240HDL Cholesterol Reference Range: Low Risk >=60 High Risk <40LDL Cholesterol Reference Range: Optimal <100 Near Optimal 100-129 Borderline 130-159 High 160-189 Very High >=190BASIC METABOLIC [id number] 05:00:00 Test Item Value Reference Range Comments SODIUM (BEAKER) (test 133 meq/L 136-145 crxq=551) POTASSIUM (BEAKER) (test 4.1 meq/L 3.5-5.1 infh=381) CHLORIDE (BEAKER) (test 105 meq/L 98-107 qrhn=883) CO2 (BEAKER) (test 17 meq/L 22-29 kyrd=275) BLOOD UREA NITROGEN 8 mg/dL 7-21 (BEAKER) (test pvho=892) CREATININE (BEAKER) (test 0.51 mg/dL 0.57-1.25 pygs=189) GLUCOSE RANDOM (BEAKER) 54 mg/dL 70-105 (test xeso=711) CALCIUM (BEAKER) (test 8.4 mg/dL 8.4-10.2 jpec=133) EGFR (BEAKER) (test 183 mL/min/1.73 sq m ESTIMATED GFR IS NOT hour=8165) ACCURATE CREATININE CLEARANCE IN PREDICTING GLOMERULAR FILTRATION RATE. ESTIMATED GFR IS NOT APPLICABLE FOR DIALYSIS PATIENTS. HEPATIC FUNCTION [id number] 05:00:00 Test Item Value Reference Range Comments TOTAL PROTEIN (BEAKER) (test jrpk=078) 6.3 gm/dL 6.0-8.3 ALBUMIN (BEAKER) (test odbt=9826) 3.2 g/dL 3.5-5.0 BILIRUBIN TOTAL (BEAKER) (test dhkx=463) 0.7 mg/dL 0.2-1.2 BILIRUBIN DIRECT (BEAKER) (test besq=487) 0.3 mg/dL 0.1-0.5 ALKALINE PHOSPHATASE (BEAKER) (test hrwh=327) 62 U/L 40-150 AST (SGOT) (BEAKER) (test ogqk=115) 13 U/L 5-34 ALT (SGPT) (BEAKER) (test fnuo=048) 9 U/L 6-55 [id number] 05:00:00 Test Item Value Reference Range Comments LIPASE (BEAKER) (test codw=070) 1007 U/L 8-78 CBC (HEMOGRAM ONLY)2017-05-14 04:39:00 Test Item Value Reference Range Comments WHITE BLOOD CELL COUNT (BEAKER) (test izwa=450) 16.6 K/ L 3.5-10.5 RED BLOOD CELL COUNT (BEAKER) (test quey=510) 3.98 M/ L 4.63-6.08 HEMOGLOBIN (BEAKER) (test lzbu=350) 12.0 GM/DL 13.7-17.5 HEMATOCRIT (BEAKER) (test omzn=929) 37.2 % 40.1-51.0 MEAN CORPUSCULAR VOLUME (BEAKER) (test ojsd=077) 93.5 fL 79.0-92.2 MEAN CORPUSCULAR HEMOGLOBIN (BEAKER) (test 30.2 pg 25.7-32.2 kqdy=966) MEAN CORPUSCULAR HEMOGLOBIN CONC (BEAKER) (test 32.3 GM/DL 32.3-36.5 egmc=613) RED CELL DISTRIBUTION WIDTH (BEAKER) (test 14.5 % 11.6-14.4 eunq=973) PLATELET COUNT (BEAKER) (test jcmj=916) 527 K/CU MM 150-450 MEAN PLATELET VOLUME (BEAKER) (test htqc=811) 9.5 fL 9.4-12.4 NUCLEATED RED BLOOD CELLS (BEAKER) (test 0 /100 WBC 0-0 ahrj=500) MR, ABDOMEN, [id number] 12:25:00FINAL REPORT MRI of the abdomen, MRCP. [...] Date/Time: 03/13/2017 12:25:41 Reading Location: [facility] [id number] [facility] Reading Room Electronically signed by: KIKO VEE M.D. on 12:25 [facility] [id number] 05:05:00 Test Item Value Reference Range Comments SODIUM (BEAKER) (test 139 meq/L 136-145 rzpt=289) POTASSIUM (BEAKER) (test 3.7 meq/L 3.5-5.1 uddc=848) CHLORIDE (BEAKER) (test 108 meq/L 98-107 xklj=050) CO2 (BEAKER) (test 22 meq/L 22-29 mvtf=199) BLOOD UREA NITROGEN 4 mg/dL 7-21 (BEAKER) (test msky=133) CREATININE (BEAKER) (test 0.58 mg/dL 0.57-1.25 ogso=078) GLUCOSE RANDOM (BEAKER) 95 mg/dL 70-105 (test dfqa=433) CALCIUM (BEAKER) (test 8.5 mg/dL 8.4-10.2 huto=847) EGFR (BEAKER) (test 158 mL/min/1.73 sq m ESTIMATED GFR IS NOT sfve=4347) ACCURATE CREATININE CLEARANCE IN PREDICTING GLOMERULAR FILTRATION RATE. ESTIMATED GFR IS NOT APPLICABLE FOR DIALYSIS PATIENTS. CBC W/PLT COUNT & AUTO [id number] 04:49:00 Test Item Value Reference Range Comments WHITE BLOOD CELL COUNT (BEAKER) (test guzk=881) 6.3 K/ L 3.5-10.5 RED BLOOD CELL COUNT (BEAKER) (test ltyp=850) 4.32 M/ L 4.63-6.08 HEMOGLOBIN (BEAKER) (test ldqx=997) 13.7 GM/DL 13.7-17.5 HEMATOCRIT (BEAKER) (test jgsw=008) 40.3 % 40.1-51.0 MEAN CORPUSCULAR VOLUME (BEAKER) (test jufz=128) 93.3 fL 79.0-92.2 MEAN CORPUSCULAR HEMOGLOBIN (BEAKER) (test 31.7 pg 25.7-32.2 bkfg=554) MEAN CORPUSCULAR HEMOGLOBIN CONC (BEAKER) (test 34.0 GM/DL 32.3-36.5 oefs=802) RED CELL DISTRIBUTION WIDTH (BEAKER) (test 11.9 % 11.6-14.4 odmu=784) PLATELET COUNT (BEAKER) (test mqtx=689) 286 K/CU MM 150-450 MEAN PLATELET VOLUME (BEAKER) (test phsj=867) 9.4 fL 9.4-12.4 NUCLEATED RED BLOOD CELLS (BEAKER) (test 0 /100 WBC 0-0 bbbe=579) NEUTROPHILS RELATIVE PERCENT (BEAKER) (test 51 % azcq=746) LYMPHOCYTES RELATIVE PERCENT (BEAKER) (test 31 % mzgx=322) MONOCYTES RELATIVE PERCENT (BEAKER) (test 11 % sgwm=251) EOSINOPHILS RELATIVE PERCENT (BEAKER) (test 6 % xrhh=405) BASOPHILS RELATIVE PERCENT (BEAKER) (test 1 % acjc=895) NEUTROPHILS ABSOLUTE COUNT (BEAKER) (test 3.21 K/ L 1.78-5.38 jmzf=254) LYMPHOCYTES ABSOLUTE COUNT (BEAKER) (test 1.91 K/ L 1.32-3.57 fftc=756) MONOCYTES ABSOLUTE COUNT (BEAKER) (test 0.68 K/ L 0.30-0.82 fgch=486) EOSINOPHILS ABSOLUTE COUNT (BEAKER) (test 0.40 K/ L 0.04-0.54 xhft=370) BASOPHILS ABSOLUTE COUNT (BEAKER) (test 0.04 K/ L 0.01-0.08 tkyq=565) IMMATURE GRANULOCYTES-RELATIVE PERCENT (BEAKER) 1 % 0-1 (test qhte=8509) CBC W/PLT COUNT & AUTO [id number] 04:52:00 Test Item Value Reference Range Comments WHITE BLOOD CELL COUNT (BEAKER) (test dbsk=196) 6.2 K/ L 3.5-10.5 RED BLOOD CELL COUNT (BEAKER) (test sbzf=235) 4.31 M/ L 4.63-6.08 HEMOGLOBIN (BEAKER) (test lkeb=968) 13.7 GM/DL 13.7-17.5 HEMATOCRIT (BEAKER) (test ppsy=141) 41.1 % 40.1-51.0 MEAN CORPUSCULAR VOLUME (BEAKER) (test tbzz=898) 95.4 fL 79.0-92.2 MEAN CORPUSCULAR HEMOGLOBIN (BEAKER) (test 31.8 pg 25.7-32.2 ovpo=571) MEAN CORPUSCULAR HEMOGLOBIN CONC (BEAKER) (test 33.3 GM/DL 32.3-36.5 wlbl=800) RED CELL DISTRIBUTION WIDTH (BEAKER) (test 12.1 % 11.6-14.4 omcd=724) PLATELET COUNT (BEAKER) (test uiiv=268) 295 K/CU MM 150-450 MEAN PLATELET VOLUME (BEAKER) (test vhjq=852) 9.5 fL 9.4-12.4 NUCLEATED RED BLOOD CELLS (BEAKER) (test 0 /100 WBC 0-0 mcnd=630) NEUTROPHILS RELATIVE PERCENT (BEAKER) (test 51 % nsot=869) LYMPHOCYTES RELATIVE PERCENT (BEAKER) (test 31 % cxop=186) MONOCYTES RELATIVE PERCENT (BEAKER) (test 11 % nhxt=350) EOSINOPHILS RELATIVE PERCENT (BEAKER) (test 7 % ivpb=137) BASOPHILS RELATIVE PERCENT (BEAKER) (test 1 % mdjc=923) NEUTROPHILS ABSOLUTE COUNT (BEAKER) (test 3.17 K/ L 1.78-5.38 sush=027) LYMPHOCYTES ABSOLUTE COUNT (BEAKER) (test 1.89 K/ L 1.32-3.57 zllt=938) MONOCYTES ABSOLUTE COUNT (BEAKER) (test 0.65 K/ L 0.30-0.82 fzwn=931) EOSINOPHILS ABSOLUTE COUNT (BEAKER) (test 0.41 K/ L 0.04-0.54 ewnt=809) BASOPHILS ABSOLUTE COUNT (BEAKER) (test 0.05 K/ L 0.01-0.08 uuma=456) IMMATURE GRANULOCYTES-RELATIVE PERCENT (BEAKER) 1 % 0-1 (test fnex=6853) COMPREHENSIVE METABOLIC [id number] 11:20:00 Test Item Value Reference Range Comments TOTAL PROTEIN (BEAKER) 7.2 gm/dL 6.0-8.3 (test vgza=288) ALBUMIN (BEAKER) (test 3.7 g/dL 3.5-5.0 jhcq=7347) ALKALINE PHOSPHATASE 73 U/L 40-150 (BEAKER) (test psye=918) BILIRUBIN TOTAL (BEAKER) 0.6 mg/dL 0.2-1.2 (test road=428) SODIUM (BEAKER) (test 135 meq/L 136-145 sqrd=826) POTASSIUM (BEAKER) (test 5.0 meq/L 3.5-5.1 wzjo=626) CHLORIDE (BEAKER) (test 109 meq/L 98-107 hwlz=506) CO2 (BEAKER) (test 14 meq/L 22-29 kwmg=328) BLOOD UREA NITROGEN 6 mg/dL 7-21 (BEAKER) (test hbnl=763) CREATININE (BEAKER) (test 0.62 mg/dL 0.57-1.25 fpag=594) GLUCOSE RANDOM (BEAKER) 45 mg/dL 70-105 (test ispc=648) CALCIUM (BEAKER) (test 8.6 mg/dL 8.4-10.2 ymit=842) AST (SGOT) (BEAKER) (test 17 U/L 5-34 hysi=411) ALT (SGPT) (BEAKER) (test 14 U/L 6-55 sgzp=196) EGFR (BEAKER) (test 146 mL/min/1.73 sq ESTIMATED GFR IS NOT tnws=4827) m ACCURATE CREATININE CLEARANCE IN PREDICTING GLOMERULAR FILTRATION RATE. ESTIMATED GFR IS NOT APPLICABLE FOR DIALYSIS PATIENTS. CBC W/PLT COUNT & AUTO [id number] 09:54:00 Test Item Value Reference Range Comments WHITE BLOOD CELL COUNT (BEAKER) (test hkcl=871) 7.4 K/ L 3.5-10.5 RED BLOOD CELL COUNT (BEAKER) (test flfo=790) 4.32 M/ L 4.63-6.08 HEMOGLOBIN (BEAKER) (test vzuh=605) 13.6 GM/DL 13.7-17.5 HEMATOCRIT (BEAKER) (test oqnj=958) 41.8 % 40.1-51.0 MEAN CORPUSCULAR VOLUME (BEAKER) (test bcfw=205) 96.8 fL 79.0-92.2 MEAN CORPUSCULAR HEMOGLOBIN (BEAKER) (test 31.5 pg 25.7-32.2 wvsi=024) MEAN CORPUSCULAR HEMOGLOBIN CONC (BEAKER) (test 32.5 GM/DL 32.3-36.5 swhe=586) RED CELL DISTRIBUTION WIDTH (BEAKER) (test 12.1 % 11.6-14.4 ndnj=425) PLATELET COUNT (BEAKER) (test kbpr=636) 277 K/CU MM 150-450 MEAN PLATELET VOLUME (BEAKER) (test jmfx=356) 9.7 fL 9.4-12.4 NUCLEATED RED BLOOD CELLS (BEAKER) (test 0 /100 WBC 0-0 lcnq=422) NEUTROPHILS RELATIVE PERCENT (BEAKER) (test 57 % esxq=639) LYMPHOCYTES RELATIVE PERCENT (BEAKER) (test 29 % wazz=653) MONOCYTES RELATIVE PERCENT (BEAKER) (test 8 % npeu=123) EOSINOPHILS RELATIVE PERCENT (BEAKER) (test 5 % zbgw=278) BASOPHILS RELATIVE PERCENT (BEAKER) (test 1 % nnnh=593) NEUTROPHILS ABSOLUTE COUNT (BEAKER) (test 4.23 K/ L 1.78-5.38 qppm=048) LYMPHOCYTES ABSOLUTE COUNT (BEAKER) (test 2.10 K/ L 1.32-3.57 sxxy=838) MONOCYTES ABSOLUTE COUNT (BEAKER) (test 0.57 K/ L 0.30-0.82 mmdd=600) EOSINOPHILS ABSOLUTE COUNT (BEAKER) (test 0.38 K/ L 0.04-0.54 dtye=471) BASOPHILS ABSOLUTE COUNT (BEAKER) (test 0.05 K/ L 0.01-0.08 fler=168) IMMATURE GRANULOCYTES-RELATIVE PERCENT (BEAKER) 1 % 0-1 (test hrzp=2792) (MANUAL DIFFERENTIAL)2017-03-11 09:54:00 Test Item Value Reference Range Comments TOTAL COUNTED (BEAKER) (test thoi=2387) WBC MORPHOLOGY (BEAKER) (test tora=699) Normal PLT MORPHOLOGY (BEAKER) (test fzfh=491) Normal RBC MORPHOLOGY (BEAKER) (test tdyj=008) Normal CBC W/PLT COUNT & AUTO [id number] 09:09:00 Test Item Value Reference Range Comments WHITE BLOOD CELL COUNT (BEAKER) (test ckng=555) 8.9 K/ L 3.5-10.5 RED BLOOD CELL COUNT (BEAKER) (test pvgo=515) 4.25 M/ L 4.63-6.08 HEMOGLOBIN (BEAKER) (test yofh=221) 13.6 GM/DL 13.7-17.5 HEMATOCRIT (BEAKER) (test yvgi=033) 40.7 % 40.1-51.0 MEAN CORPUSCULAR VOLUME (BEAKER) (test ctnb=438) 95.8 fL 79.0-92.2 MEAN CORPUSCULAR HEMOGLOBIN (BEAKER) (test 32.0 pg 25.7-32.2 cdfj=715) MEAN CORPUSCULAR HEMOGLOBIN CONC (BEAKER) (test 33.4 GM/DL 32.3-36.5 icis=776) RED CELL DISTRIBUTION WIDTH (BEAKER) (test 12.1 % 11.6-14.4 xrob=142) PLATELET COUNT (BEAKER) (test ynav=199) 274 K/CU MM 150-450 MEAN PLATELET VOLUME (BEAKER) (test ufup=451) 9.8 fL 9.4-12.4 NUCLEATED RED BLOOD CELLS (BEAKER) (test 0 /100 WBC 0-0 lhfd=763) NEUTROPHILS RELATIVE PERCENT (BEAKER) (test 62 % nmpc=579) LYMPHOCYTES RELATIVE PERCENT (BEAKER) (test 24 % zpmx=547) MONOCYTES RELATIVE PERCENT (BEAKER) (test 7 % qqxo=371) EOSINOPHILS RELATIVE PERCENT (BEAKER) (test 5 % cvsl=720) BASOPHILS RELATIVE PERCENT (BEAKER) (test 1 % qxcv=206) NEUTROPHILS ABSOLUTE COUNT (BEAKER) (test 5.55 K/ L 1.78-5.38 jecd=723) LYMPHOCYTES ABSOLUTE COUNT (BEAKER) (test 2.14 K/ L 1.32-3.57 xdna=852) MONOCYTES ABSOLUTE COUNT (BEAKER) (test 0.64 K/ L 0.30-0.82 otkn=381) EOSINOPHILS ABSOLUTE COUNT (BEAKER) (test 0.48 K/ L 0.04-0.54 meev=768) BASOPHILS ABSOLUTE COUNT (BEAKER) (test 0.07 K/ L 0.01-0.08 vvfd=168) IMMATURE GRANULOCYTES-RELATIVE PERCENT (BEAKER) 0 % 0-1 (test bjkv=5084) (MANUAL DIFFERENTIAL)2017-03-10 09:09:00 Test Item Value Reference Range Comments TOTAL COUNTED (BEAKER) (test rpeq=9780) WBC MORPHOLOGY (BEAKER) (test plwi=458) Normal PLT MORPHOLOGY (BEAKER) (test ebac=724) Normal RBC MORPHOLOGY (BEAKER) (test mvcx=431) Normal COMPREHENSIVE METABOLIC [id number] 07:30:00 Test Item Value Reference Range Comments TOTAL PROTEIN (BEAKER) 6.8 gm/dL 6.0-8.3 (test xfhc=751) ALBUMIN (BEAKER) (test 3.6 g/dL 3.5-5.0 ifcs=9147) ALKALINE PHOSPHATASE 77 U/L 40-150 (BEAKER) (test bwln=803) BILIRUBIN TOTAL (BEAKER) 0.6 mg/dL 0.2-1.2 (test kgmu=624) SODIUM (BEAKER) (test 136 meq/L 136-145 fped=158) POTASSIUM (BEAKER) (test 4.3 meq/L 3.5-5.1 rpxp=116) CHLORIDE (BEAKER) (test 105 meq/L 98-107 norf=108) CO2 (BEAKER) (test 19 meq/L 22-29 iyrj=886) BLOOD UREA NITROGEN 6 mg/dL 7-21 (BEAKER) (test hkvd=190) CREATININE (BEAKER) (test 0.57 mg/dL 0.57-1.25 avti=356) GLUCOSE RANDOM (BEAKER) 52 mg/dL 70-105 (test ywst=443) CALCIUM (BEAKER) (test 8.2 mg/dL 8.4-10.2 zpon=239) AST (SGOT) (BEAKER) (test 17 U/L 5-34 laxj=269) ALT (SGPT) (BEAKER) (test 14 U/L 6-55 rbve=867) EGFR (BEAKER) (test 161 mL/min/1.73 sq ESTIMATED GFR IS NOT snco=9217) m ACCURATE CREATININE CLEARANCE IN PREDICTING GLOMERULAR FILTRATION RATE. ESTIMATED GFR IS NOT APPLICABLE FOR DIALYSIS PATIENTS. CBC W/PLT COUNT & AUTO [id number] 10:49:00 Test Item Value Reference Range Comments WHITE BLOOD CELL COUNT (BEAKER) (test llhw=003) 6.9 K/ L 3.5-10.5 RED BLOOD CELL COUNT (BEAKER) (test vqbn=759) 3.83 M/ L 4.63-6.08 HEMOGLOBIN (BEAKER) (test vilw=527) 12.5 GM/DL 13.7-17.5 HEMATOCRIT (BEAKER) (test lnwt=410) 36.7 % 40.1-51.0 MEAN CORPUSCULAR VOLUME (BEAKER) (test tqbj=907) 95.8 fL 79.0-92.2 MEAN CORPUSCULAR HEMOGLOBIN (BEAKER) (test 32.6 pg 25.7-32.2 ooqn=519) MEAN CORPUSCULAR HEMOGLOBIN CONC (BEAKER) (test 34.1 GM/DL 32.3-36.5 zjcx=503) RED CELL DISTRIBUTION WIDTH (BEAKER) (test 12.4 % 11.6-14.4 tcds=675) PLATELET COUNT (BEAKER) (test ekmv=091) 267 K/CU MM 150-450 MEAN PLATELET VOLUME (BEAKER) (test krpi=581) 9.7 fL 9.4-12.4 NUCLEATED RED BLOOD CELLS (BEAKER) (test 0 /100 WBC 0-0 qzmw=425) NEUTROPHILS RELATIVE PERCENT (BEAKER) (test 60 % pjhz=753) LYMPHOCYTES RELATIVE PERCENT (BEAKER) (test 26 % nsam=788) MONOCYTES RELATIVE PERCENT (BEAKER) (test 7 % jyih=049) EOSINOPHILS RELATIVE PERCENT (BEAKER) (test 6 % zftm=106) BASOPHILS RELATIVE PERCENT (BEAKER) (test 1 % esih=421) NEUTROPHILS ABSOLUTE COUNT (BEAKER) (test 4.15 K/ L 1.78-5.38 jwkh=119) LYMPHOCYTES ABSOLUTE COUNT (BEAKER) (test 1.82 K/ L 1.32-3.57 lsov=019) MONOCYTES ABSOLUTE COUNT (BEAKER) (test 0.47 K/ L 0.30-0.82 xmfk=318) EOSINOPHILS ABSOLUTE COUNT (BEAKER) (test 0.38 K/ L 0.04-0.54 pkgk=274) BASOPHILS ABSOLUTE COUNT (BEAKER) (test 0.04 K/ L 0.01-0.08 xsti=786) COMPREHENSIVE METABOLIC [id number] 10:45:00 Test Item Value Reference Range Comments TOTAL PROTEIN (BEAKER) 6.2 gm/dL 6.0-8.3 (test ktky=129) ALBUMIN (BEAKER) (test 3.3 g/dL 3.5-5.0 cljl=1812) ALKALINE PHOSPHATASE 70 U/L 40-150 (BEAKER) (test vgqg=575) BILIRUBIN TOTAL (BEAKER) 0.4 mg/dL 0.2-1.2 (test esde=949) SODIUM (BEAKER) (test 138 meq/L 136-145 jxai=144) POTASSIUM (BEAKER) (test 3.5 meq/L 3.5-5.1 jnly=414) CHLORIDE (BEAKER) (test 109 meq/L 98-107 jmsl=764) CO2 (BEAKER) (test 23 meq/L 22-29 cmzo=321) BLOOD UREA NITROGEN 5 mg/dL 7-21 (BEAKER) (test lziy=077) CREATININE (BEAKER) (test 0.54 mg/dL 0.57-1.25 dblf=251) GLUCOSE RANDOM (BEAKER) 77 mg/dL 70-105 (test udsd=118) CALCIUM (BEAKER) (test 7.6 mg/dL 8.4-10.2 kpdf=623) AST (SGOT) (BEAKER) (test 18 U/L 5-34 arfm=879) ALT (SGPT) (BEAKER) (test 15 U/L 6-55 gbvc=576) EGFR (BEAKER) (test 171 mL/min/1.73 sq ESTIMATED GFR IS NOT mdvd=1031) m ACCURATE CREATININE CLEARANCE IN PREDICTING GLOMERULAR FILTRATION RATE. ESTIMATED GFR IS NOT APPLICABLE FOR DIALYSIS PATIENTS. [id number] 10:29:00 Test Item Value Reference Range Comments TRIGLYCERIDES (BEAKER) (test qiru=828) 58 mg/dL TRIGLYCERIDE REFERENCE RANGELow Risk <150Borderline Risk 150-199High Risk 200-499Very High Risk>=[id number] 10:29:00 Test Item Value Reference Range Comments MAGNESIUM (BEAKER) (test njik=927) 1.4 mg/dL 1.6-2.6 [id number] 10:29:00 Test Item Value Reference Range Comments LIPASE (BEAKER) (test cxve=140) 536 U/L 8-78 PROTHROMBIN [id number] 10:22:00 Test Item Value Reference Range Comments PROTIME (BEAKER) (test bmyz=633) 14.3 seconds 11.7-14.7 INR (BEAKER) (test mwiz=697) 1.1 <=5.9 RECOMMENDED COUMADIN/WARFARIN INR THERAPY RANGESSTANDARD DOSE: 2.0 - 3.0 Includes: PROPHYLAXIS forvenous thrombosis, systemic embolization; TREATMENT for venous thrombosis and/or pulmonary embolus.HIGH RISK: Target INR is 2.5-3.5 for patients with mechanical heart valves.
--- OUTSIDE RECORDS SUMMARY | 2017-12-30 09:56 | XMS REPORT ---
[...] End Status Dosage System Date Date Apixaban [facility] [id number] 2.5 MG Orally Active not defined Tramadol HCl [facility] [id number] 50 MG Orally Active 1 tablet every 6 hrs as needed Results No Known Results Summary Purpose eClinicalWorks Submission
[2017-12-30 10:52] LABS: Absolute Lymphocytes (CBC) 0.9 K/uL (0.7-4.9); Absolute Monocytes 0.3 K/uL (0.1-1.3); Absolute Neutrophil 5.6 K/uL (1.8-8.0); Basophils % 0.7 % (0-1.3); Eosinophils % 0.4 % (0-4.4); Hematocrit 42.8 % (39.6-49.0); Lymphocytes % 12.4 % (15.3-44.8); MCH 32.2 pg (27.0-35.0); MCV 94.8 fL (80-100); MPV 8.6 fL (7.6-11.3); Monocytes % 4.7 % (3.3-12.3); RBC Red Blood Cell Count 4.51 M/uL (4.33-5.43)
[2017-12-30 11:00] LABS: Protime INR 1.05
[2017-12-30] MEDS ORDERED: predniSONE 20 MG TAB ONE (11:05)
[2017-12-30] MEDS ORDERED: METHYLPREDNISOLONE 125 MG INJ ONE (11:05)
[2017-12-30] MEDS ORDERED: THIAMINE 200 MG/2 ML INJ ONE (11:05)
[2017-12-30] MEDS ORDERED: FAMOTIDINE 20 MG/2 ML VIAL IV ONE (11:06)
[2017-12-30] MEDS ORDERED: NA CHLORIDE 0.9% 1,000 ML ONE (11:06)
[2017-12-30 11:13] LABS: Barbiturates NEGATIVE (NEGATIVE); Benzodiazepines NEGATIVE (NEGATIVE); Cocaine NEGATIVE (NEGATIVE); METHAMPHETAM NEGATIVE (NEGATIVE); Methadone NEGATIVE (NEGATIVE); Opiates NEGATIVE (NEGATIVE); Phencyclidine NEGATIVE (NEGATIVE); THC Cannibis NEGATIVE (NEGATIVE)
[2017-12-30 11:21] LABS: ALT/SGPT 77 U/L (12-78); AST/SGOT 55 U/L (15-37); Albumin 4.4 g/dL (3.4-5.0); Alkaline Phosphatase 97 U/L (45-117); BUN Blood Urea Nitrogen 6 mg/dL (7-18); Bicarbonate 29 mmol/L (21-32); Bilirubin Direct 0.2 mg/dL (0-0.2); Bilirubin Total 0.5 mg/dL (0.2-1.0); Glucose Level 99 mg/dL (74-106); Potassium 3.7 mmol/L (3.5-5.1); Protein, Total 8.6 g/dL (6.4-8.2); Sodium Level 136 mmol/L (136-145)
[2017-12-30 11:21] LABS: Urine Blood NEGATIVE (NEG); Urine Glucose NEGATIVE (NEG); Urine Protein 1+ (NEG); Urine Specific Gravity 1.015 (1.005-1.030); Urine pH >8.5 (5.0-7.0)
--- NOTE | 2017-12-30 11:31 | EDPHYS ---
Physician Documentation [facility] Name: Ankit Rosales Age: 37 yrs Sex: Male : 1980 Arrival Date: 12/30/2017 Time: 09:52 Bed 26 Private MD: ED Physician Alexandru Chan HPI: 12/30 10:36 This 37 yrs old Male presents to ER via EMS with complaints of Allergic ynes Reaction. 10:36 The patient presents with itching, rash. Onset: The symptoms/episode began/occurred 1 ynes week(s) ago. Associated signs and symptoms: The patient has no apparent associated signs or symptoms. Possible causes: The patient has no known obvious cause for the symptoms, At home the patient or guardian has treated the symptoms with nothing. The patient has not experienced similar symptoms in the past. Historical: - Allergies: 09:57 NKDA; ss - PMHx: :57 Cirrhosis; GALLSTONES; left leg DVT; Pancreatitis; ss - PSHx: :57 cyst removed from pancreas; ss - Immunization history:: Adult Immunizations up to date. - Social history:: Smoking status: Patient/guardian denies using tobacco, Patient/guardian denies using street drugs. - Ebola Screening: : Patient denies exposure to infectious person Patient denies travel to an Ebola-affected area in the 21 days before illness onset. ROS: 10:37 Constitutional: Negative for fever, chills, and weight loss, Eyes: Negative for injury, ynes pain, redness, and discharge, ENT: Negative for injury, pain, and discharge, Neck: Negative for injury, pain, and swelling, Cardiovascular: Negative for chest pain, palpitations, and edema, Respiratory: Negative for shortness of breath, cough, wheezing, and pleuritic chest pain, Abdomen/GI: Negative for abdominal pain, nausea, vomiting, diarrhea, and constipation, Back: Negative for injury and pain, : Negative for injury, bleeding, discharge, and swelling, MS/Extremity: Negative for injury and deformity, Psych: Negative for depression, anxiety, suicide ideation, homicidal ideation, and hallucinations, Allergy/Immunology: Negative for hives, rash, and allergies, Endocrine: Negative for neck swelling, polydipsia, polyuria, polyphagia, and marked weight changes, Hematologic/Lymphatic: Negative for swollen nodes, abnormal bleeding, and unusual bruising. 10:37 Skin: Positive for rash. 10:37 Neuro: Positive for anxious, shaky. Exam: 10:37 Constitutional: This is a well developed, well nourished patient who is awake, alert, ynes and in no acute distress. Head/Face: Normocephalic, atraumatic. Eyes: Pupils equal round and reactive to light, extra-ocular motions intact. Lids and lashes normal. Conjunctiva and sclera are non-icteric and not injected. Cornea within normal limits. Periorbital areas with no swelling, redness, or edema. ENT: Nares patent. No nasal discharge, no septal abnormalities noted. Tympanic membranes are normal and external auditory canals are clear. Oropharynx with no redness, swelling, or masses, exudates, or evidence of obstruction, uvula midline. Mucous membranes moist. Neck: Trachea midline, no thyromegaly or masses palpated, and no cervical lymphadenopathy. Supple, full range of motion without nuchal rigidity, or vertebral point tenderness. No Meningismus. Chest/axilla: Normal chest wall appearance and motion. Nontender with no deformity. No lesions are appreciated. Cardiovascular: Regular rate and rhythm with a normal S1 and S2. No gallops, murmurs, or rubs. Normal PMI, no JVD. No pulse deficits. Respiratory: Lungs have equal breath sounds bilaterally, clear to auscultation and percussion. No rales, rhonchi or wheezes noted. No increased work of breathing, no retractions or nasal flaring. Abdomen/GI: Soft, non-tender, with normal bowel sounds. No distension or tympany. No guarding or rebound. No evidence of tenderness throughout. Back: No spinal tenderness. No costovertebral tenderness. Full range of motion. Male : Normal genitalia with no discharge or lesions. MS/ Extremity: Pulses equal, no cyanosis. Neurovascular intact. Full, normal range of motion. Psych: Awake, alert, with orientation to person, place and time. Behavior, mood, and affect are within normal limits. 10:37 Musculoskeletal/extremity: DVT Exam: No signs of deep vein thrombosis. no pain, no swelling, no tenderness, negative Homans' sign noted on exam, no appreciated bluish discoloration, no erythema, no increased warmth. 10:37 Skin: rash can be described as erythematous, nonspecific, raised, on the right hand, left hand, left foot and right leg. Vital Signs: 09:57 BP 156 / 104; Pulse 115; Resp 18; Temp 98.2(TE); Pulse Ox 99% on R/A; Weight 54.43 kg; ss Height 5 ft. 6 in. (167.64 cm); Pain 0/10; 12:45 BP 151 / 96; Pulse 99; Resp 20; Pulse Ox 100% on R/A; Pain 0/10; ed1 09:57 Body Mass Index 19.37 (54.43 kg, 167.64 cm) ss MDM: 10:05 Patient medically screened. [facility] 10:40 Data reviewed: vital signs, nurses notes, lab test result(s), EKG. [facility] 12/30 10:35 Order name: Acetaminophen; Complete Time: 11:30 [facility] 12/30 10:35 Order name: Basic Metabolic Panel; Complete Time: 11:30 [facility] 12/30 10:35 Order name: CBC with Diff; Complete Time: 11:30 [facility] 12/30 10:35 Order name: ETOH Level; Complete Time: 11:30 [facility] 12/30 10:35 Order name: Hepatic Function; Complete Time: 11:30 [facility] 12/30 10:35 Order name: PT-INR; Complete Time: 11:30 [facility] 12/30 10:35 Order name: Ptt, Activated; Complete Time: 11:30 [facility] 12/30 10:35 Order name: Salicylate; Complete Time: 11:30 [facility] 12/30 10:35 Order name: Urine Drug Screen; Complete Time: 11:30 [facility] 12/30 10:39 Order name: Lipase; Complete Time: 11:30 [facility] 12/30 10:59 Order name: Urine Dipstick--Ancillary (enter results); Complete Time: 11:30 12/30 10:35 Order name: EKG; Complete Time: 10:36 [facility] 12/30 10:35 Order name: EKG - Nurse/Tech; Complete Time: 10:50 [facility] 12/30 10:35 Order name: IV Saline Lock; Complete Time: 10:50 [facility] 12/30 10:35 Order name: Labs collected and sent; Complete Time: 10:50 [facility] 12/30 10:35 Order name: Urine Dipstick-Ancillary (obtain specimen); Complete Time: 10:50 [facility] Administered Medications: 11:05 Drug: NS 0.9% 1000 ml Route: IV; Rate: 1 bolus; Site: left forearm; ss 12:42 Follow up: IV Status: Completed infusion; IV Intake: 1000ml ed1 11:06 Drug: Thiamine 100 mg Route: IV; Rate: bolus; Site: left forearm; ss 12:43 Follow up: Response: No adverse reaction; IV Status: Completed infusion ed1 11:06 Drug: Pepcid 20 mg Route: IVP; Site: left forearm; ss 12:43 Follow up: Response: No adverse reaction ed1 11:06 Drug: predniSONE 40 mg Route: PO; ss 12:44 Follow up: Response: No adverse reaction ed1 11:06 Drug: SOLU-Medrol 125 mg Route: IVP; Site: left forearm; ss 12:45 Follow up: Response: No adverse reaction; Marked relief of symptoms ed1 11:28 CANCELLED (Other Intervention Used): Benadryl 25 mg IVP once ed1 11:28 Drug: Benadryl 25 mg Route: PO; ed1 12:45 Follow up: Response: No adverse reaction; Marked relief of symptoms ed1 12:21 Drug: Ativan 1 mg Route: IVP; Site: left antecubital; ss 12:45 Follow up: Response: No adverse reaction ed1 Disposition: 12/30/17 11:30 Discharged to Home. Impression: Tobacco abuse counseling, Tobacco use, Alcohol abuse, Dermatitis, unspecified. - Condition is Stable. - Discharge Instructions: Contact Dermatitis, Hand Dermatitis, Rash, Steps to Quit Smoking, Smoking Hazards, Alcohol Abuse and Nutrition, Rash, Okmq-gy-Hgod, Alcohol Withdrawal, Gwek-dx-Cglr, Steps to Quit Smoking, Yiie-lw-Goyp, Contact Dermatitis, Knmz-lm-Wocd, Hand Dermatitis, Unkl-oe-Jruq. - Prescriptions for Benadryl 25 mg Oral Capsule - take 1 capsule by ORAL route every 6 hours As needed; 30 tablet. Hydrocortisone 0.5 % Topical Cream - apply 1 application by TOPICAL route every 12 hours As needed; 60 gram. chlordiazepoxide HCl 25 mg Oral capsule - take 1 capsule by ORAL route 3 times per day; 21 capsule. Vitamin 27- 0.8 mg Oral Tablet - take 1 tablet by ORAL route once daily; 30 tablet. - Medication Reconciliation Form, Thank You Letter, Antibiotic Education, Prescription Opioid Use, Work release form form. - Follow up: Private Physician; When: 2 - 3 days; Reason: Recheck today's complaints, Continuance of care, Re-evaluation by your physician. - Problem is new. - Symptoms have improved. Signatures: Dispatcher [employer] EDAlexandru Whyte MD MD cha Smirch, Shelby, RN RN ss Kari Franco, CERTIFIED REHABILITATION COUNSELOR CERTIFIED REHABILITATION COUNSELOR ed1 Corrections: (The following items were deleted from the chart) 11:28 10:36 Benadryl 25 mg IVP once ordered. ynes ed1 12:47 11:31 12/30/2017 11:30 Discharged to Home. Impression: Tobacco abuse counseling; ed1 Tobacco use; Alcohol abuse; Dermatitis, unspecified. Condition is Stable. Discharge Instructions: Contact Dermatitis, Hand Dermatitis, Rash, Steps to Quit Smoking, Smoking Hazards, Rash, Gire-yc-Mhoy, Steps to Quit Smoking, Lgso-yk-Coif, Contact Dermatitis, Fcoh-ta-Uofh, Hand Dermatitis, Drwh-qp-Zveu, Alcohol Abuse and Nutrition, Alcohol Withdrawal, Xrpc-ae-Ssmq. Prescriptions for Benadryl 25 mg Oral Capsule - take 1 capsule by ORAL route every 6 hours As needed; 30 tablet, Hydrocortisone 0.5 % Topical Cream - apply 1 application by TOPICAL route every 12 hours As needed; 60 gram. and Forms are Medication Reconciliation Form, Thank You Letter, Antibiotic Education, Prescription Opioid Use. Follow up: Private Physician; When: 2 - 3 days; Reason: Recheck today's complaints, Continuance of care, Re-evaluation by your physician. Problem is new. Symptoms have improved. ynes
--- NOTE | 2017-12-30 11:31 | ER ---
Nurse's Notes [facility] Name: Ankit Rosales Age: 37 yrs Sex: Male : 1980 Arrival Date: 12/30/2017 Time: 09:52 Bed 26 Private MD: Diagnosis: Tobacco abuse counseling;Tobacco use;Alcohol abuse;Dermatitis, unspecified Presentation: 12/30 09:54 Presenting complaint: Patient states: possible allergic reaction since taking antibiotics 3 days ago. Woke up this morning with worsening symptoms. Pt feels anxious, has rash to bilateral upper extremities and back. Denies shortness of breath. Transition of care: patient was not received from another setting of care. Onset: The symptoms/episode began/occurred 3 day(s) ago. Anaphylaxis evaluation, an aura of "impending doom". Onset of symptoms was December 28, 2017. Risk Assessment: Do you want to hurt yourself or someone else? Patient reports no desire to harm self or others. Initial Sepsis Screen:. Care prior to arrival: None. 09:54 Method Of Arrival: EMS: [facility] 09:54 Acuity: KRAIG 3 ss 10:30 Initial Sepsis Screen: Does the patient meet any 2 criteria? No. Patient's initial ed1 sepsis screen is negative. Does the patient have a suspected source of infection? No. Patient's initial sepsis screen is negative. Historical: - Allergies: 09:57 NKDA; ss - PMHx: 09:57 Cirrhosis; GALLSTONES; left leg DVT; Pancreatitis; ss - PSHx: 09:57 cyst removed from pancreas; ss - Immunization history:: Adult Immunizations up to date. - Social history:: Smoking status: Patient/guardian denies using tobacco, Patient/guardian denies using street drugs. - Ebola Screening: : Patient denies exposure to infectious person Patient denies travel to an Ebola-affected area in the 21 days before illness onset. Screenin:30 Abuse screen: Denies threats or abuse. Denies injuries from another. Nutritional ed1 screening: No deficits noted. Tuberculosis screening: No symptoms or risk factors identified. Fall Risk None identified. Assessment: 10:30 General: Appears uncomfortable, Behavior is anxious, Reports chills for 0-12 hours. ed1 Pain: Denies pain. Neuro: Level of Consciousness is awake, alert, obeys commands, Oriented to person, place, time, situation. Cardiovascular: Heart tones S1 S2 present Chest pain is denied. Respiratory: Airway is patent Respiratory effort is even, unlabored, Respiratory pattern is regular, symmetrical, Breath sounds are clear bilaterally. Denies cough, shortness of breath. GI: No signs and/or symptoms were reported involving the gastrointestinal system. : No signs and/or symptoms were reported regarding the genitourinary system. EENT: No signs and/or symptoms were reported regarding the EENT system. Derm: Skin is healthy with good turgor, Skin is clammy, Skin is normal, Skin temperature is warm Rash noted that is red, raised, on right hand, left hand, right arm and left arm. Musculoskeletal: Circulation, motion, and sensation intact. 10:35 General: The previous assessment is accurate. Call light remains within reach. . ss 12:45 Reassessment: Patient appears in no apparent distress at this time. Patient and/or ed1 family updated on plan of care and expected duration. Pain level reassessed. Patient is alert, oriented x 3, equal unlabored respirations, skin warm/dry/pink. Patient states feeling better. Patient states symptoms have improved. Vital Signs: 09:57 BP 156 / 104; Pulse 115; Resp 18; Temp 98.2(TE); Pulse Ox 99% on R/A; Weight 54.43 kg; ss Height 5 ft. 6 in. (167.64 cm); Pain 0/10; 12:45 BP 151 / 96; Pulse 99; Resp 20; Pulse Ox 100% on R/A; Pain 0/10; ed1 09:57 Body Mass Index 19.37 (54.43 kg, 167.64 cm) ED Course: 09:52 Patient arrived in ED. 09:56 Triage completed. 09:57 Arm band placed on right wrist. 10:01 Kari Franco LVN is Primary Nurse. ed1 10:05 Alexandru Chan MD is Attending Physician. [facility] 10:30 Patient has correct armband on for positive identification. Placed in gown. Bed in low ed1 position. Call light in reach. Adult w/ patient. Pulse ox on. NIBP on. Warm blanket given. 10:49 Initial lab(s) drawn, by me, sent to lab. Inserted saline lock: 20 gauge in left ed1 forearm, using aseptic technique. Blood collected. 11:27 EKG done, by electronic lab technician. reviewed by Alexandru Chan MD. dt2 12:45 No provider procedures requiring assistance completed. IV discontinued, intact, ed1 bleeding controlled, No redness/swelling at site. Pressure dressing applied. Administered Medications: 11:05 Drug: NS 0.9% 1000 ml Route: IV; Rate: 1 bolus; Site: left forearm; ss 12:42 Follow up: IV Status: Completed infusion; IV Intake: 1000ml ed1 11:06 Drug: Thiamine 100 mg Route: IV; Rate: bolus; Site: left forearm; ss 12:43 Follow up: Response: No adverse reaction; IV Status: Completed infusion ed1 11:06 Drug: Pepcid 20 mg Route: IVP; Site: left forearm; ss 12:43 Follow up: Response: No adverse reaction ed1 11:06 Drug: predniSONE 40 mg Route: PO; ss 12:44 Follow up: Response: No adverse reaction ed1 11:06 Drug: SOLU-Medrol 125 mg Route: IVP; Site: left forearm; ss 12:45 Follow up: Response: No adverse reaction; Marked relief of symptoms ed1 11:28 CANCELLED (Other Intervention Used): Benadryl 25 mg IVP once ed1 11:28 Drug: Benadryl 25 mg Route: PO; ed1 12:45 Follow up: Response: No adverse reaction; Marked relief of symptoms ed1 12:21 Drug: Ativan 1 mg Route: IVP; Site: left antecubital; ss 12:45 Follow up: Response: No adverse reaction ed1 Intake: 12:42 IV: 1000ml; Total: 1000ml. ed1 Outcome: 11:30 Discharge ordered by MD. quick 12:45 Discharged to home ambulatory. ed1 12:45 Condition: good 12:45 Discharge instructions given to patient, Instructed on discharge instructions, follow up and referral plans. medication usage, Demonstrated understanding of instructions, follow-up care, medications, Prescriptions given X 4. 12:47 Patient left the ED. ed1 Signatures: Alexandru Chan MD MD cha Smirch, Shelby, RN RN ss Salvador, Kari, FOURDRINIER OPERATOR FOURDRINIER OPERATOR ed1 Tasha Riojas dt2
[2017-12-30] MEDS ORDERED: DIPHENHYDRAMINE 25 MG TAB/CAP ONE (11:33)
[2017-12-30] MEDS ORDERED: LORazepam 2 MG/ML VIAL ONE (12:23)
--- NOTE | 2017-12-30 12:59 | EKG ---
Test Date: 2017-12-30 Test Time: 10:45:58 Data Center Operator: MOE MEASUREMENT RESULTS: Intervals: Rate: 88 MT: 166 QRSD: 86 QT: 358 QTc: 433 [place]: P: 70 MT: 166 QRS: 65 T: 65 INTERPRETIVE STATEMENTS: Normal sinus rhythm Possible Left atrial enlargement Borderline ECG Compared to ECG 07/07/2017 15:45:32 No significant changes Electronically Signed On 12-30-17 12:57:49 CDT by Joe Velasco
[2017-12-30 13:09] VITALS: TEMP 98.2
[2017-12-30 13:11] VITALS: BP 151/96; O2SAT 100
== END 2017-12-30 12:47 | disposition home or self-care (01) ==
LOC: ER 09:49
DX: L30.9 Dermatitis, unspecified (principal); F10.10 Alcohol abuse, uncomplicated; Z72.0 Tobacco use; Z71.6 Tobacco abuse counseling; K74.60 Unspecified cirrhosis of liver
CPT/HCPCS: 36415; 80048; 80076; 80307; 80320; 80329; 81003; 83690; 85025; 85610; 85730; 93005; 99284; J2930; J3411; J7030; J7512

== ENCOUNTER 2017-12-31 13:45 | Emergency (ER) | payer SELFPAY ==
--- OUTSIDE RECORDS SUMMARY | 2017-12-31 13:47 | XMS REPORT | Clinical Summary ---
:1980 Author Organization [facility] Address [address] [place] [address] Phone Care Team Providers Name Role Phone [...] Date Type Specialty Care Team Description 09/14/2017 [facility] General Internal Zaida Martinez MD Alcohol abuse - Encounter Medicine Yahaira, (Primary 09/19/2017 Dario Dx);Cystic mass of TavaresMD pancreas;Pancreati Vanda Norton MD pseudocyst/cyst;He Naty Cruz, morrhagic Julissa Moseley MD pancreatitis 09/08/2017 Procedure Pass Gastroenterology 09/08/2017 Surgery Gastroenterology Bessy Hernandez UPPER ENDOSCOPY MD Fredi 09/07/2017 Anesthesia Event Gastroenterology Shikha Motley MD 09/01/2017 Orders Only General Internal Medicine 08/31/2017 [facility] Talisha Abad Alcohol - Encounter MD Adriana abuse;Cystic mass 09/09/2017 [place], of [place]-Dannie pancreas;History MD Nayely of DVT (deep vein Michael, Larry thrombosis);Kim Bishop MD l-induced acute Farrukh Ryan MD pancreatitis Mackenzie Riveraa without infection MD Bradley or necrosis;Smoker;Po rtal vein thrombosis 05/21/2017 Procedure Pass Gastroenterology 05/19/2017 Anesthesia Event Gastroenterology Dorota Cortes MD 05/13/2017 [facility] Internal Radha, Ulysses, Alcohol-induced - Encounter Medicine acute 05/20/2017 Rafaela Samson pancreatitisMD unspecified Diomedes Alvarado complication MD Lul status;Alcohol abuse;Cystic mass of pancreas;Smoker;Th rombocytosis (HCC);Alcohol-janiya segundo acute pancreatitis without infection or necrosis;Smoking 03/13/2017 Procedure Pass Gastroenterology 03/11/2017 Procedure Pass Gastroenterology 03/10/2017 Anesthesia Event Gastroenterology Юлия Crump MD 03/09/2017 [facility] Internal [facility] Alcohol - Encounter Medicine MD Araceli abuse;Cystic mass 03/14/2017 Ulysses Garcia of MD pancreas;Hypokalem Yaneth Napier ia;Alcohol-induced MD acute pancreatitis, unspecified complication status;Portal vein thrombosis after 12/30/2016 Family History Medical History Relation Name Comments [...] 09/08/2017 5:00 PM Pancreatic pseudocyst CDT after 12/30/2016 Results Calcium, Ionized (09/19/2017 6:02 AM)Only the most recent of3 resultswithin the time period is included. Component Value Ref Range Calcium, Ion 1.11 (L) 1.12 - 1.27 mmol/L pH, Blood 7.40 Specimen Performing Laboratory Blood - Line, Venous [address] [address] Phosphorus (09/19/2017 6:02 AM)Only the most recent of10 resultswithin the time period is included. Component Value Ref Range Phosphorus 3.0 2.3 - 4.7 mg/dL Specimen Performing Laboratory Blood - Line, Venous [address] [address] Magnesium (09/19/2017 6:02 AM)Only the most recent of11 resultswithin the time period is included. Component Value Ref Range Magnesium 2.0 1.6 - 2.6 mg/dL Specimen Performing Laboratory Blood - Line, Venous [address] [address] Basic Metabolic Panel (09/19/2017 6:02 AM)Only the [...] Specimen Performing Laboratory Blood - Line, Venous [address] [address] CBC with platelet count + automated diff [...] Performing Laboratory Blood - Line, Venous [facility] [address] [address] CBC with platelet count + automated diff (09/17/2017 3:54 AM)Only the most recent of17 resultswithin the time period is included. Specimen Performing Laboratory Blood Narrative The following orders were created for panel order CBC with platelet count + automated diff. Procedure Abnormality Status --------- ------ CBC with platelet count ...[[id number]]AbnormalFinal result Please view results for these tests on the individual orders. US abdominal with doppler (09/17/2017 3:00 AM) Specimen Performing Laboratory [facility] Narrative FINAL REPORT Comparison exam: Right upper [...] MD Report Verified Date/Time:09/17/2017 04:01:12 Reading Location: [address] Consult Reading Room Procedure Note Interface, [...] Report Verified Date/Time: 09/17/2017 04:01:12 Reading Location: [facility] B1 C013X Ortho Consult Reading Room Embolization Arterial (09/16/2017 6:00 PM) Specimen Performing Laboratory [facility] Narrative FINAL REPORT Mesenteric angiogram and embolization History: 37-year-old male with hemorrhagic pancreatic pseudocyst. Modality: Ultrasound and fluoroscopy. Sedation: Moderate sedation was administered. 2.5 mg of Versed and 125 mcg of fentanyl IV was used for moderate sedation monitored under my direction. Total intra-service time of sedation [id number]. The patient's vital signs were monitored throughout the procedure and recorded in the patient's medical record by the nurse. Anesthesia:Two percent Lidocaine without epinephrine. Approach:Right common femoral artery. Estimated blood loss:< 5 cc. Specimen: None. sewing machine operator semiautomatic: Michael Ortega MD. Multiskill Operator: None.. Fluoroscopy Time: 31.7 min. Reference Air [...] over 0.035 Bentson wire for a 5 Lithuanian by 10 cm vascular sheath. A 5 Lithuanian Sutton B catheter was used to select the celiac trunk and SMA for multiple DSA runs. The Sutton catheter was then remanipulated into the celiac trunk. Next, using a 2.4 Lithuanian microcatheter and 0.016 inch microwire, the gastroduodenal artery was cannulated. Subsequently, the catheter was manipulated into the feeding branch supplying the abnormal area of hyperemia/vessel irregularity. From this location, embolization was performed using Interlock microcoils. The microcatheter was retracted into the GDA proximally and postdilatation DSA was performed. Next, the Sutton base catheter was manipulated into the SMA. Using a 2. Lithuanian directional microcatheter and 0.014 inch microwire, the [...] Verified Date/Time:09/20/2017 16:25:06 Reading Location: [place] [address] Angio Body Reading Room Procedure Note Interface, [...] blood loss: < 5 cc. Specimen: None. sewing machine operator semiautomatic: Michael Ortega MD. Multiskill Operator: None.. Fluoroscopy Time: 31.7 min. Reference Air [...] over 0.035 Bentson wire for a 5 Lithuanian by 10 cm vascular sheath. A 5 Lithuanian Sutton B catheter was used to select the celiac trunk and SMA for multiple DSA runs. The Sutton catheter was then remanipulated into the celiac trunk. Next, using a 2.4 Lithuanian microcatheter and 0.016 inch microwire, the gastroduodenal artery was cannulated. Subsequently, the catheter was manipulated into the feeding branch supplying the abnormal area of hyperemia/vessel irregularity. From this location, embolization was performed using Interlock microcoils. The microcatheter was retracted into the GDA proximally and postdilatation DSA was performed. Next, the Sutton base catheter was manipulated into the SMA. Using a 2. Lithuanian directional microcatheter and 0.014 inch microwire, the [...] Date/Time: 09/20/2017 16:25:06 Reading Location: [place] [address] Angio Body Reading Room C-Reactive Protein (09/16/2017 12:32 PM)Only the most recent of2 resultswithin the time period is included. Component Value Ref Range CRP 0.97 (H) 0.00 - 0.50 mg/dL Specimen Performing Laboratory Blood - Central Venous Line [address] [address] PT/aPTT (09/16/2017 10:54 AM) Component Value Ref Range Protime 16.2 (H) 11.7 - 14.7 seconds INR 1.3 <=5.9 PTT 30.2 22.5 - 36.0 seconds Specimen Performing Laboratory Blood - Central Venous Line [address] [address] Narrative RECOMMENDED COUMADIN/WARFARIN INR THERAPY RANGES STANDARD [...] mg/dL Specimen Performing Laboratory Blood - Line, [address] [address] Narrative TRIGLYCERIDE REFERENCE RANGE Low Risk<150 Borderline Risk 150-199 High Lwlw252-812 Very High Risk >=500 Lipase (09/16/2017 4:20 AM)Only the most recent of6 resultswithin the time period is included. Component Value Ref Range Lipase 114 (H) 8 - 78 U/L Specimen Performing Laboratory Blood - Line, [address] [address] Hepatic function panel (09/16/2017 4:20 AM)Only the [...] Specimen Performing Laboratory Blood - Line, Venous [address] [address] XR chest 1 view portable / bedside [...] MD Report Verified Date/Time:09/15/2017 19:53:01 Reading Location: [address] Reading Room Procedure Note Interface, External [...] Report Verified Date/Time: 09/15/2017 19:53:01 Reading Location: [address] Reading Room PHERAL VASCULAR REPORT - SCAN (09/15/2017 5:20 PM)Venous doppler legs bilateral (09/15/2017 2:49 PM) Component Value Ref Range Ejection Fraction Specimen Performing Laboratory [facility] ECHO HEARTLAB MKCKESSON CPACS Impressions Right [...] Patient NameANKIT ROSALES Date of Study09/15/2017 Visit [id number] Male of Birth1980 Number Referring Julissa AlfonsoNancy, Room [id number] Physician Stock Receiver David Chan. Interpreting Prema Gabriel, CANDELARIO, Buddy, [...] of Study 09/15/2017 Age 37 Visit Number [id number] Gender Male Date of 1980 Number Referring Julissa Arguelles, Room Number 2161 Physician Stock Receiver David Chan. Interpreting Prema Gabriel T, [facility] Physician , RPVI Procedure Type of [...] Specimen Performing Laboratory Stool [facility] [address] [address] Narrative Performing Lab [facility] [address] [address] Enrique Holliday MD, PhD, GIDEON Peripheral Blood Smear - Path Review (09/14/2017 4:37 AM) Component Value Ref Range Pathologist Review Thrombocytosis. No circulating blasts or increased schistocytes. Clinical follow up recommended. Pathologist: Enoch Saba M.D.(electronic signature) Specimen Performing Laboratory [address] [address] Vitamin B12 and Folate (09/14/2017 4:37 AM) Component Value Ref Range Vitamin B12 527 213 - 816 pg/mL Folate 12.3 >=7.0 ng/mL Specimen Performing Laboratory Blood [address] [address] RHYTHM STRIP - SCAN (09/10/2017 10:40 AM)aPTT (09/09/2017 9:37 AM)Only the most recent of9 resultswithin the time period is included. Component Value Ref Range PTT 44.5 (H) 22.5 - 36.0 seconds Specimen Performing Laboratory Blood [address] [address] REPORT OF PROCEDURE - ENDOSCOPY URL (09/08/2017 5:47 PM)Fine Needle Aspirate ( 09/08/2017 5:43 PM) Component Value Ref Range Cytology See Separate Report Specimen Performing Laboratory Fine Needle Aspirate - [address] [address] Fine Needle Aspirate by Clinician (09/08/2017 5:43 PM) Component Value Ref Range Case Report Medical Cytology Report Case: [id number] Authorizing Provider:Bessy Hernandez MDCollected: 09/08/2017 1743 Ordering Location: [address] Received: 09/08/2017 1814 Service Pathologist: Mir Anthony MD Specimen:Pancreas DIAGNOSIS PANCREAS HEAD CYSTIC LESION FNA BY CLINICIAN (CYTOSPINS AND CELL BLOCK OF ASPIRATE): - NO MALIGNANT CELLS IDENTIFIED - The mucin stain shows focal weak staining Signing Pathologist Direct Phone Line: [phone] COMMENT The cell block shows non-inflammed pancreatic acinar tissue. CPT Code(s) 09303, 38127, 81865 CLINICAL DATA (4.9 X 4.8 cm) Cystic lesion in the pancreatic head SPECIMEN SOURCE PANCREAS HEAD CYSTIC LESION FNA GROSS DESCRIPTION 25 mls in cytorich red; 4 cytospins, 1 mucin stain, cell block Collected: [id number] Received: [id number] Technical component was performed at [facility], Department of Pathology, [address] [place] [address], Professional component was performed [facility], at Department of Pathology, [address] [place] [address], Specimen Performing Laboratory Fine Needle Aspirate - [address] [address] [address] abd/pelvis - pancreas evaluation (09/04/2017 12:20 [...] MD Report Verified Date/Time:09/04/2017 00:22:52 Reading Location: [address] Reading Room Procedure Note Interface, External [...] Report Verified Date/Time: 09/04/2017 00:22:52 Reading Location: [address] Reading Room -Glucose meter (09/02/2017 7:29 AM)Only the most recent of2 resultswithin the time period is included. Component Value Ref Range POC-Glucose Meter 140 (H)Comment: TESTED AT [address] 70 - 110 mg/[place] [address] Specimen Performing Laboratory Blood [facility] [address] [address] ECG 12 lead (09/01/2017 6:18 PM) Specimen Performing Laboratory [facility] Narrative Ventricular Rate 77 BPM Atrial Rate 77 BPM P-R Interval 162 ms QRS Duration 98 ms Q-T Interval 404 ms QTC Calculation(Bazett) 457 ms P Mode -8 degrees R Mode 30 degrees T Mode -1 degrees Normal sinus rhythm RSR' or [...] 404 ms QTC Calculation(Bazett) 457 ms P Mode -8 degrees R Mode 30 degrees T Mode -1 degrees Normal sinus rhythm RSR' or QR pattern in V1 suggests right ventricular conduction delay Cannot rule out Anterior infarct , age undetermined Abnormal ECG No previous ECGs available Confirmed by MD [place] ([id number]) on 09/02/2017 2:25:25 PM US abdomen limited (09/01/2017 5:23 AM) Specimen Performing Laboratory [facility] Narrative FINAL REPORT INDICATION: 37-year-old male [...] MD Report Verified Date/Time:09/01/2017 09:53:12 Reading Location: [facility] [id number] Ultrasound Reading Room Procedure Note Interface, [...] Report Verified Date/Time: 09/01/2017 09:53:12 Reading Location: [facility] P006 Ultrasound Reading Room /Free T4 If Indicated (09/01/2017 3:12 AM) Component Value Ref Range TSH 0.36 0.35 - 4.94 uIU/mL Specimen Performing Laboratory Blood - Arm, [address] [address] Troponin I (09/01/2017 3:12 AM) Component Value Ref Range Troponin I <0.01 0.00 - 0.03 ng/mL Specimen Performing Laboratory Blood - Arm, [address] [address] Narrative Troponin I (TnI) levels must be [...] mm/HR Specimen Performing Laboratory Blood - Arm, [address] [address] Hemoglobin A1c (09/01/2017 3:12 AM) Component Value Ref Range Hemoglobin A1C 4.7 4.3 - 6.1 % Specimen Performing Laboratory Blood - Arm, [address] [address] Creatine Kinase (CK), Total and MB (09/01/2017 3:12 AM) Component Value Ref Range Total CK 29 29 - 200 U/L CK-MB 0.4 0.0 - 6.6 ng/mL MB Relative Index 1.4 % Specimen Performing Laboratory Blood - Arm, [address] [address] Narrative CK-MB Reference Range: <6.7Normal 6.7-10.0Borderline >10.0 Abnormal Amylase (09/01/2017 3:12 AM) Component Value Ref Range Amylase 383 (H) 25 - 125 U/L Specimen Performing Laboratory Blood - Arm, [address] [address] Lipid panel (09/01/2017 3:12 AM)Only the most recent of2 resultswithin the time period is included. Component Value Ref Range Triglycerides 76 mg/dL Cholesterol 118 mg/dL HDL 37 mg/dL LDL Calculated 66 mg/dL Specimen Performing Laboratory Blood - Arm, [address] [address] Narrative Triglyceride Reference Range: Low Risk <150 [id number] High Risk 200-499 Very High Risk>=500 Cholesterol Reference Range: Low Risk <200 Spzmixvmey537-174 High Risk>240 HDL Cholesterol Reference Range: Low Risk >=60 High Risk <40 LDL Cholesterol Reference Range: Optimal<100 Near Apaauwx286-627 Zezxvwgazs498-898 Psjt555-998 Very High >=190 Blood culture (09/01/2017 3:11 AM)Only the most recent of2 resultswithin the time period is included. Component Value Ref Range Result No growth in 5 days Specimen Performing Laboratory Blood - Arm, Right [address] [address] EKG-SCANNED (05/22/2017 12:43 PM)Comprehensive metabolic panel (05/19/2017 [...] FOR DIALYSIS PATIENTS. Specimen Performing Laboratory Blood [address] [address] CBC (Hemogram only) (05/17/2017 4:26 AM)Only the [...] Performing Laboratory Blood - Arm, Right [facility] [address] [place] [address] MR abdomen without IV contrast MRCP (03/13/2017 [...] MD Report Verified Date/Time:03/13/2017 12:25:41 Reading Location: [address] Consult Reading Room Procedure Note Interface, External Ris In - 03/13/2017 12:27 PM [employer] FINAL REPORT MRI of the abdomen, [...] Report Verified Date/Time: 03/13/2017 12:25:41 Reading Location: [facility] C013X [facility] Consult Reading Room Manual Differential (03/11/2017 5:44 AM)Only the most recent of2 resultswithin the time period is included. Component Value Ref Range Total Counted WBC Morphology Normal Platelet Morphology Normal RBC Morphology Normal Specimen Performing Laboratory Blood - Line, Venous [address] [address] Prothrombin time/INR (03/09/2017 9:54 AM) Component Value Ref Range Protime 14.3 11.7 - 14.7 seconds INR 1.1 <=5.9 Specimen Performing Laboratory Blood [address] [address] Narrative RECOMMENDED COUMADIN/WARFARIN INR THERAPY RANGES STANDARD DOSE: 2.0 - 3.0 Includes: PROPHYLAXIS for venous thrombosis, systemic embolization; TREATMENT for venous thrombosis and/or pulmonary embolus. HIGH RISK: Target INR is 2.5-3.5 for patients with mechanical heart valves. after 12/30/2016
--- OUTSIDE RECORDS SUMMARY | 2017-12-31 13:49 | XMS REPORT ---
:1980 [facility] [address] [place] [address] Care Team Providers Name Role Phone VANI [...] WALLER, 2017-09-[address] at [facility] for FINAL REPORT PATIENT EXTENSIVE - 16:25:00 evidence of bleedCall with ID: [id number] ARTERIAL questions: [phone] or Mesenteric angiogram [facility] for and embolization exam:->Pancreaticoduodednal artery [...] blood loss: < 5 cc. Specimen: None. train brake operator: Michael Ortega MD. Automation Software Engineer: None.. Fluoroscopy Time: 31.7 min.Reference Air Kerma [...] over 0.035 Bentson wire for a 5 Jordanian by 10 cm vascular sheath. A 5 Jordanian Sutton B catheter was used to select the celiac trunk and SMA for multiple DSA runs. The Sutton catheter was then remanipulated into the celiac trunk. Next, using a 2.4 Jordanian microcatheter and 0.016 inch microwire, the gastroduodenal artery was cannulated. Subsequently, the catheter was manipulated into the feeding branch supplying the abnormal area of hyperemia/vessel irregularity. From this location, embolization was performed using Interlock microcoils. The microcatheter was retracted into the GDA proximally and postdilatation DSA was performed. Next, the Sutton base catheter was manipulated into the SMA. Using a 2. Jordanian directional microcatheter and 0.014 inch microwire, the [...] Ortegaort Verified Date/Time: 09/20/2017 16:25:06 Reading Location: [place] [address] Angio Body Reading Room IUM, IONIZED 2017-09-19 07:02:00 Test Item Value Reference Range Comments CALCIUM IONIZED (BEAKER) (test onjm=926) 1.11 mmol/L 1.12-1.27 PH, BLOOD (BEAKER) (test lsqf=3085) 7.40 [id number] 06:35:00 Test Item Value Reference Range Comments PHOSPHORUS (BEAKER) (test yrfe=070) 3.0 mg/dL 2.3-4.7 [id number] 06:35:00 Test Item Value Reference Range Comments MAGNESIUM (BEAKER) (test ywso=019) 2.0 mg/dL 1.6-2.6 BASIC METABOLIC [id number] 06:35:00 Test Item Value Reference Range Comments SODIUM (BEAKER) (test 138 meq/L 136-145 qgak=209) POTASSIUM (BEAKER) (test 3.8 meq/L 3.5-5.1 eunk=225) CHLORIDE (BEAKER) (test 109 meq/L 98-107 veby=669) CO2 (BEAKER) (test 22 meq/L 22-29 lyvw=600) BLOOD UREA NITROGEN 10 mg/dL 7-21 (BEAKER) (test ggmc=979) CREATININE (BEAKER) (test 0.53 mg/dL 0.57-1.25 imml=589) GLUCOSE RANDOM (BEAKER) 88 mg/dL 70-105 (test usna=172) CALCIUM (BEAKER) (test 8.5 mg/dL 8.4-10.2 dpfb=572) EGFR (BEAKER) (test 174 mL/min/1.73 sq m ESTIMATED GFR IS NOT ursd=7045) ACCURATE CREATININE CLEARANCE IN PREDICTING GLOMERULAR FILTRATION RATE. ESTIMATED GFR IS NOT APPLICABLE FOR DIALYSIS PATIENTS. CALCIUM, [id number] 07:12:00 Test Item Value Reference Range Comments CALCIUM IONIZED (BEAKER) (test cjtz=550) 1.09 mmol/L 1.12-1.27 PH, BLOOD (BEAKER) (test juyr=4637) 7.41 [id number] 06:38:00 Test Item Value Reference Range Comments PHOSPHORUS (BEAKER) (test ucrg=353) 3.0 mg/dL 2.3-4.7 [id number] 06:38:00 Test Item Value Reference Range Comments MAGNESIUM (BEAKER) (test iswc=127) 2.1 mg/dL 1.6-2.6 BASIC METABOLIC [id number] 06:38:00 Test Item Value Reference Range Comments SODIUM (BEAKER) (test 137 meq/L 136-145 dpuu=805) POTASSIUM (BEAKER) (test 3.7 meq/L 3.5-5.1 rrhm=020) CHLORIDE (BEAKER) (test 108 meq/L 98-107 ezas=713) CO2 (BEAKER) (test 22 meq/L 22-29 file=593) BLOOD UREA NITROGEN 10 mg/dL 7-21 (BEAKER) (test sohh=424) CREATININE (BEAKER) (test 0.52 mg/dL 0.57-1.25 uywe=024) GLUCOSE RANDOM (BEAKER) 99 mg/dL 70-105 (test lzoj=030) CALCIUM (BEAKER) (test 8.6 mg/dL 8.4-10.2 femj=963) EGFR (BEAKER) (test 178 mL/min/1.73 sq m ESTIMATED GFR IS NOT crbk=5935) ACCURATE CREATININE CLEARANCE IN PREDICTING GLOMERULAR FILTRATION RATE. ESTIMATED GFR IS NOT APPLICABLE FOR DIALYSIS PATIENTS. CALCIUM, [id number] 04:45:00 Test Item Value Reference Range Comments CALCIUM IONIZED (BEAKER) (test svdo=656) 1.14 mmol/L 1.12-1.27 PH, BLOOD (BEAKER) (test cwdh=4836) 7.39 [id number] 04:22:00 Test Item Value Reference Range Comments PHOSPHORUS (BEAKER) (test arzq=251) 2.8 mg/dL 2.3-4.7 [id number] 04:22:00 Test Item Value Reference Range Comments MAGNESIUM (BEAKER) (test atuh=684) 1.9 mg/dL 1.6-2.6 BASIC METABOLIC [id number] 04:22:00 Test Item Value Reference Range Comments SODIUM (BEAKER) (test 134 meq/L 136-145 uagd=121) POTASSIUM (BEAKER) (test 3.3 meq/L 3.5-5.1 bcyn=794) CHLORIDE (BEAKER) (test 103 meq/L 98-107 gamq=120) CO2 (BEAKER) (test 23 meq/L 22-29 fhsy=769) BLOOD UREA NITROGEN 11 mg/dL 7-21 (BEAKER) (test qsaf=182) CREATININE (BEAKER) (test 0.55 mg/dL 0.57-1.25 xevw=103) GLUCOSE RANDOM (BEAKER) 112 mg/dL 70-105 (test gvdq=267) CALCIUM (BEAKER) (test 8.7 mg/dL 8.4-10.2 mjvy=580) EGFR (BEAKER) (test 167 mL/min/1.73 sq m ESTIMATED GFR IS NOT itvp=3456) ACCURATE CREATININE CLEARANCE IN PREDICTING GLOMERULAR FILTRATION RATE. ESTIMATED GFR IS NOT APPLICABLE FOR DIALYSIS PATIENTS. CBC W/PLT COUNT & AUTO [id number] 04:11:00 Test Item Value Reference Range Comments WHITE BLOOD CELL COUNT (BEAKER) (test atjd=966) 10.1 K/ L 3.5-10.5 RED BLOOD CELL COUNT (BEAKER) (test dkee=697) 4.16 M/ L 4.63-6.08 HEMOGLOBIN (BEAKER) (test bqhs=572) 12.6 GM/DL 13.7-17.5 HEMATOCRIT (BEAKER) (test tenl=453) 37.3 % 40.1-51.0 MEAN CORPUSCULAR VOLUME (BEAKER) (test dfcu=815) 89.7 fL 79.0-92.2 MEAN CORPUSCULAR HEMOGLOBIN (BEAKER) (test 30.3 pg 25.7-32.2 ltcs=972) MEAN CORPUSCULAR HEMOGLOBIN CONC (BEAKER) (test 33.8 GM/DL 32.3-36.5 nfko=925) RED CELL DISTRIBUTION WIDTH (BEAKER) (test 14.0 % 11.6-14.4 ynxl=535) PLATELET COUNT (BEAKER) (test cicm=406) 541 K/CU MM 150-450 MEAN PLATELET VOLUME (BEAKER) (test wben=983) 9.1 fL 9.4-12.4 NUCLEATED RED BLOOD CELLS (BEAKER) (test 0 /100 WBC 0-0 mvsj=244) NEUTROPHILS RELATIVE PERCENT (BEAKER) (test 66 % dxnb=370) LYMPHOCYTES RELATIVE PERCENT (BEAKER) (test 20 % djsd=079) MONOCYTES RELATIVE PERCENT (BEAKER) (test 10 % jwwq=994) EOSINOPHILS RELATIVE PERCENT (BEAKER) (test 3 % kfoh=408) BASOPHILS RELATIVE PERCENT (BEAKER) (test 1 % puca=429) NEUTROPHILS ABSOLUTE COUNT (BEAKER) (test 6.65 K/ L 1.78-5.38 iqjl=206) LYMPHOCYTES ABSOLUTE COUNT (BEAKER) (test 2.05 K/ L 1.32-3.57 zpsg=352) MONOCYTES ABSOLUTE COUNT (BEAKER) (test 1.03 K/ L 0.30-0.82 vwgh=553) EOSINOPHILS ABSOLUTE COUNT (BEAKER) (test 0.26 K/ L 0.04-0.54 hrqz=698) BASOPHILS ABSOLUTE COUNT (BEAKER) (test 0.10 K/ L 0.01-0.08 crio=621) IMMATURE GRANULOCYTES-RELATIVE PERCENT (BEAKER) 0 % 0-1 (test dkxc=7058) U/S, ABDOMINAL, WITH [id number] 04:01:00Reason for exam:->? hx of PV thrombosisFINAL [...] Gaspar Verified Date/Time: 09/17/2017 04:01:12 Reading Location: [facility] C013X Ortho Consult Reading Room 04 :01 AMC-REACTIVE [id number] 13:17:00 Test Item Value Reference Range Comments C-REACTIVE PROTEIN (BEAKER) (test dfgc=164) 0.97 mg/dL 0.00-0.50 [id number] 11:12:00 Test Item Value Reference Range Comments PROTIME (BEAKER) (test tlpl=420) 16.2 seconds 11.7-14.7 INR (BEAKER) (test anxa=929) 1.3 <=5.9 PARTIAL THROMBOPLASTIN TIME (BEAKER) (test 30.2 seconds 22.5-36.0 bnqj=021) RECOMMENDED COUMADIN/WARFARIN INR THERAPY RANGESSTANDARD DOSE: 2.0 - 3.0 Includes: PROPHYLAXIS forvenous thrombosis, systemic embolization; TREATMENT for venous thrombosis and/or pulmonary embolus.HIGH RISK: Target INR is 2.5-3.5 for patients with mechanical heart valves.[id number] 05:28:00 Test Item Value Reference Range Comments TRIGLYCERIDES (BEAKER) (test qkyh=672) 78 mg/dL TRIGLYCERIDE REFERENCE RANGELow Risk <150Borderline Risk 150-199High Risk 200-499Very High Risk>=[id number] 05:28:00 Test Item Value Reference Range Comments MAGNESIUM (BEAKER) (test rqqu=556) 1.9 mg/dL 1.6-2.6 [id number] 05:28:00 Test Item Value Reference Range Comments PHOSPHORUS (BEAKER) (test echg=159) 3.5 mg/dL 2.3-4.7 BASIC METABOLIC [id number] 05:28:00 Test Item Value Reference Range Comments SODIUM (BEAKER) (test 134 meq/L 136-145 kgez=287) POTASSIUM (BEAKER) (test 3.6 meq/L 3.5-5.1 zuga=237) CHLORIDE (BEAKER) (test 105 meq/L 98-107 xcue=735) CO2 (BEAKER) (test 23 meq/L 22-29 cdlb=118) BLOOD UREA NITROGEN 13 mg/dL 7-21 (BEAKER) (test aijm=459) CREATININE (BEAKER) (test 0.56 mg/dL 0.57-1.25 ewri=135) GLUCOSE RANDOM (BEAKER) 83 mg/dL 70-105 (test eymx=245) CALCIUM (BEAKER) (test 8.8 mg/dL 8.4-10.2 gbbo=900) EGFR (BEAKER) (test 163 mL/min/1.73 sq m ESTIMATED GFR IS NOT kiwk=9860) ACCURATE CREATININE CLEARANCE IN PREDICTING GLOMERULAR FILTRATION RATE. ESTIMATED GFR IS NOT APPLICABLE FOR DIALYSIS PATIENTS. HEPATIC FUNCTION [id number] 05:28:00 Test Item Value Reference Range Comments TOTAL PROTEIN (BEAKER) (test troy=713) 6.5 gm/dL 6.0-8.3 ALBUMIN (BEAKER) (test enua=0310) 3.7 g/dL 3.5-5.0 BILIRUBIN TOTAL (BEAKER) (test qlut=199) 0.3 mg/dL 0.2-1.2 BILIRUBIN DIRECT (BEAKER) (test vpgy=183) 0.1 mg/dL 0.1-0.5 ALKALINE PHOSPHATASE (BEAKER) (test crww=979) 79 U/L 40-150 AST (SGOT) (BEAKER) (test ufui=558) 14 U/L 5-34 ALT (SGPT) (BEAKER) (test njtz=866) 9 U/L 6-55 [id number] 05:28:00 Test Item Value Reference Range Comments LIPASE (BEAKER) (test czek=552) 114 U/L 8-78 CBC W/PLT COUNT & AUTO [id number] 05:03:00 Test Item Value Reference Range Comments WHITE BLOOD CELL COUNT (BEAKER) (test bnbn=719) 7.2 K/ L 3.5-10.5 RED BLOOD CELL COUNT (BEAKER) (test cljh=529) 4.04 M/ L 4.63-6.08 HEMOGLOBIN (BEAKER) (test yras=174) 12.2 GM/DL 13.7-17.5 HEMATOCRIT (BEAKER) (test cfbe=688) 36.7 % 40.1-51.0 MEAN CORPUSCULAR VOLUME (BEAKER) (test wcwz=600) 90.8 fL 79.0-92.2 MEAN CORPUSCULAR HEMOGLOBIN (BEAKER) (test 30.2 pg 25.7-32.2 aqki=676) MEAN CORPUSCULAR HEMOGLOBIN CONC (BEAKER) (test 33.2 GM/DL 32.3-36.5 myvw=574) RED CELL DISTRIBUTION WIDTH (BEAKER) (test 14.3 % 11.6-14.4 delj=216) PLATELET COUNT (BEAKER) (test ogpz=387) 561 K/CU MM 150-450 MEAN PLATELET VOLUME (BEAKER) (test evgy=480) 9.2 fL 9.4-12.4 NUCLEATED RED BLOOD CELLS (BEAKER) (test 0 /100 WBC 0-0 xbyu=996) NEUTROPHILS RELATIVE PERCENT (BEAKER) (test 51 % cdio=211) LYMPHOCYTES RELATIVE PERCENT (BEAKER) (test 32 % zsby=726) MONOCYTES RELATIVE PERCENT (BEAKER) (test 11 % ntfk=530) EOSINOPHILS RELATIVE PERCENT (BEAKER) (test 4 % owsi=583) BASOPHILS RELATIVE PERCENT (BEAKER) (test 2 % wjez=826) NEUTROPHILS ABSOLUTE COUNT (BEAKER) (test 3.66 K/ L 1.78-5.38 mlul=440) LYMPHOCYTES ABSOLUTE COUNT (BEAKER) (test 2.30 K/ L 1.32-3.57 klqv=652) MONOCYTES ABSOLUTE COUNT (BEAKER) (test 0.77 K/ L 0.30-0.82 zugk=763) EOSINOPHILS ABSOLUTE COUNT (BEAKER) (test 0.30 K/ L 0.04-0.54 wypq=366) BASOPHILS ABSOLUTE COUNT (BEAKER) (test 0.11 K/ L 0.01-0.08 mkzf=484) IMMATURE GRANULOCYTES-RELATIVE PERCENT (BEAKER) 1 % 0-1 (test bdde=0157) RAD, CHEST, 1 VIEW, NON [id number] 19:53:00Reason for exam:->check picc placement Should this [...] MDReport Verified Date/Time: 09/15/2017 19:53:01 Reading Location: [address] Reading Room Electronically signed by: GEORGE KEYS M.D. on 07:53 PMCBC W/PLT COUNT & AUTO [id number] 10:27:00 Test Item Value Reference Range Comments WHITE BLOOD CELL COUNT (BEAKER) (test zgkq=680) 7.8 K/ L 3.5-10.5 RED BLOOD CELL COUNT (BEAKER) (test skor=047) 3.95 M/ L 4.63-6.08 HEMOGLOBIN (BEAKER) (test rpqe=623) 12.0 GM/DL 13.7-17.5 HEMATOCRIT (BEAKER) (test iffd=303) 35.9 % 40.1-51.0 MEAN CORPUSCULAR VOLUME (BEAKER) (test lpyi=059) 90.9 fL 79.0-92.2 MEAN CORPUSCULAR HEMOGLOBIN (BEAKER) (test 30.4 pg 25.7-32.2 fgda=497) MEAN CORPUSCULAR HEMOGLOBIN CONC (BEAKER) (test 33.4 GM/DL 32.3-36.5 tsag=607) RED CELL DISTRIBUTION WIDTH (BEAKER) (test 14.6 % 11.6-14.4 rgye=481) PLATELET COUNT (BEAKER) (test iogf=516) 543 K/CU MM 150-450 MEAN PLATELET VOLUME (BEAKER) (test ifdw=268) 9.1 fL 9.4-12.4 NUCLEATED RED BLOOD CELLS (BEAKER) (test 0 /100 WBC 0-0 elxf=286) NEUTROPHILS RELATIVE PERCENT (BEAKER) (test 59 % awhi=992) LYMPHOCYTES RELATIVE PERCENT (BEAKER) (test 27 % vqro=355) MONOCYTES RELATIVE PERCENT (BEAKER) (test 11 % eijz=836) EOSINOPHILS RELATIVE PERCENT (BEAKER) (test 1 % cvsy=206) BASOPHILS RELATIVE PERCENT (BEAKER) (test 1 % wiaw=179) NEUTROPHILS ABSOLUTE COUNT (BEAKER) (test 4.56 K/ L 1.78-5.38 begp=902) LYMPHOCYTES ABSOLUTE COUNT (BEAKER) (test 2.11 K/ L 1.32-3.57 ztox=648) MONOCYTES ABSOLUTE COUNT (BEAKER) (test 0.89 K/ L 0.30-0.82 jpco=133) EOSINOPHILS ABSOLUTE COUNT (BEAKER) (test 0.11 K/ L 0.04-0.54 qfrx=004) BASOPHILS ABSOLUTE COUNT (BEAKER) (test 0.08 K/ L 0.01-0.08 bwvd=874) IMMATURE GRANULOCYTES-RELATIVE PERCENT (BEAKER) 0 % 0-1 (test mmng=7095) PERIPHERAL BLOOD SMEAR - PATHOLOGIST [id number] 10:04:00 Test Item Value Reference Range Comments PERIPHERAL SMR REVIEW (BEAKER) Thrombocytosis. No circulating (test prly=0912) blasts or increased schistocytes. Clinical follow up recommended. IPEC-CDXMRTUVMPQ-[id number] (BEAKER) Enoch Saba (test oaje=8529) Miladis(electronic signature) [id number] 06:02:00 Test Item Value Reference Range Comments PHOSPHORUS (BEAKER) (test wdmt=874) 3.3 mg/dL 2.3-4.7 [id number] 06:02:00 Test Item Value Reference Range Comments MAGNESIUM (BEAKER) (test tafk=350) 2.0 mg/dL 1.6-2.6 BASIC METABOLIC [id number] 06:02:00 Test Item Value Reference Range Comments SODIUM (BEAKER) (test 132 meq/L 136-145 cvbs=376) POTASSIUM (BEAKER) (test 3.7 meq/L 3.5-5.1 pnyo=826) CHLORIDE (BEAKER) (test 102 meq/L 98-107 bzpg=481) CO2 (BEAKER) (test 22 meq/L 22-29 hzlx=747) BLOOD UREA NITROGEN 11 mg/dL 7-21 (BEAKER) (test qljb=224) CREATININE (BEAKER) (test 0.52 mg/dL 0.57-1.25 icng=307) GLUCOSE RANDOM (BEAKER) 76 mg/dL 70-105 (test ptri=515) CALCIUM (BEAKER) (test 9.4 mg/dL 8.4-10.2 iloq=359) EGFR (BEAKER) (test 178 mL/min/1.73 sq m ESTIMATED GFR IS NOT ukkw=7680) ACCURATE CREATININE CLEARANCE IN PREDICTING GLOMERULAR FILTRATION RATE. ESTIMATED GFR IS NOT APPLICABLE FOR DIALYSIS PATIENTS. VITAMIN B12 AND [id number] 12:22:00 Test Item Value Reference Range Comments VITAMIN B12 (BEAKER) (test hznd=480) 527 pg/mL 213-816 FOLATE (BEAKER) (test itvu=822) 12.3 ng/mL >=7.0 [id number] 07:34:00 Test Item Value Reference Range Comments LIPASE (BEAKER) (test bvxi=904) 1107 U/L 8-78 BASIC METABOLIC [id number] 07:32:00 Test Item Value Reference Range Comments SODIUM (BEAKER) (test 134 meq/L 136-145 fcde=926) POTASSIUM (BEAKER) (test 3.7 meq/L 3.5-5.1 sgvp=638) CHLORIDE (BEAKER) (test 103 meq/L 98-107 rpru=510) CO2 (BEAKER) (test 20 meq/L 22-29 qztq=029) BLOOD UREA NITROGEN 10 mg/dL 7-21 (BEAKER) (test wohe=256) CREATININE (BEAKER) (test 0.59 mg/dL 0.57-1.25 pnsx=970) GLUCOSE RANDOM (BEAKER) 96 mg/dL 70-105 (test fzrm=388) CALCIUM (BEAKER) (test 9.7 mg/dL 8.4-10.2 xope=507) EGFR (BEAKER) (test 154 mL/min/1.73 sq m ESTIMATED GFR IS NOT etzn=3096) ACCURATE CREATININE CLEARANCE IN PREDICTING GLOMERULAR FILTRATION RATE. ESTIMATED GFR IS NOT APPLICABLE FOR DIALYSIS PATIENTS. [id number] 07:32:00 Test Item Value Reference Range Comments MAGNESIUM (BEAKER) (test uzyn=590) 1.9 mg/dL 1.6-2.6 [id number] 07:32:00 Test Item Value Reference Range Comments PHOSPHORUS (BEAKER) (test vleu=878) 3.4 mg/dL 2.3-4.7 CBC W/PLT COUNT & AUTO [id number] 06:44:00 Test Item Value Reference Range Comments WHITE BLOOD CELL COUNT (BEAKER) (test yole=763) 12.1 K/ L 3.5-10.5 RED BLOOD CELL COUNT (BEAKER) (test slje=201) 4.34 M/ L 4.63-6.08 HEMOGLOBIN (BEAKER) (test bcwy=986) 13.1 GM/DL 13.7-17.5 HEMATOCRIT (BEAKER) (test mxax=109) 39.2 % 40.1-51.0 MEAN CORPUSCULAR VOLUME (BEAKER) (test iqxw=366) 90.3 fL 79.0-92.2 MEAN CORPUSCULAR HEMOGLOBIN (BEAKER) (test 30.2 pg 25.7-32.2 hpvr=146) MEAN CORPUSCULAR HEMOGLOBIN CONC (BEAKER) (test 33.4 GM/DL 32.3-36.5 cbyf=076) RED CELL DISTRIBUTION WIDTH (BEAKER) (test 14.9 % 11.6-14.4 bqmm=358) PLATELET COUNT (BEAKER) (test dnpm=541) 636 K/CU MM 150-450 MEAN PLATELET VOLUME (BEAKER) (test rupw=835) 9.5 fL 9.4-12.4 NUCLEATED RED BLOOD CELLS (BEAKER) (test 0 /100 WBC 0-0 domh=280) NEUTROPHILS RELATIVE PERCENT (BEAKER) (test 72 % pscr=159) LYMPHOCYTES RELATIVE PERCENT (BEAKER) (test 15 % mxtw=221) MONOCYTES RELATIVE PERCENT (BEAKER) (test 11 % diii=586) EOSINOPHILS RELATIVE PERCENT (BEAKER) (test 0 % qjoi=860) BASOPHILS RELATIVE PERCENT (BEAKER) (test 0 % kjxb=807) NEUTROPHILS ABSOLUTE COUNT (BEAKER) (test 8.72 K/ L 1.78-5.38 qhwg=270) LYMPHOCYTES ABSOLUTE COUNT (BEAKER) (test 1.87 K/ L 1.32-3.57 cngy=181) MONOCYTES ABSOLUTE COUNT (BEAKER) (test 1.38 K/ L 0.30-0.82 oerc=704) EOSINOPHILS ABSOLUTE COUNT (BEAKER) (test 0.02 K/ L 0.04-0.54 azez=696) BASOPHILS ABSOLUTE COUNT (BEAKER) (test 0.05 K/ L 0.01-0.08 yosa=248) IMMATURE GRANULOCYTES-RELATIVE PERCENT (BEAKER) 1 % 0-1 (test kxee=1566) FINE NEEDLE ASPIRATION BY [id number] 13:21:00Medical Cytology Report Case: [id number] Authorizing Provider: Bessy Hernandez MD Collected: 2017 1743 Ordering Location: [address] Received : 09/08/2017 1814 Service Pathologist: Mir Anthony MD Specimen: Pancreas PANCREAS HEAD CYSTICLESION FNA BY CLINICIAN ( CYTOSPINS AND CELL BLOCK OF ASPIRATE): - NO MALIGNANT CELLS IDENTIFIED - The mucin stain shows focal weak staining Signing Pathologist Direct Phone Line : [phone] signed by Mir Anthony MD on 09/11/2017 at 1:21 PMThe cell block shows non-inflammed pancreatic acinar tissue.37115, 41156, 83103(4.9 X 4.8 cm) Cystic lesion in the pancreatic headPANCREAS HEAD CYSTIC LESION FNA25 mls in cytorich red; 4 cytospins, 1 mucin stain, cell blockCollected: [id number]: [id number], Department of Pathology, [address] [place] [id number], Tel [facility], [facility] of [facility], [address] [place] [id number], [id number] 10:07:00 Test Item Value Reference Range Comments PARTIAL THROMBOPLASTIN TIME (BEAKER) (test 44.5 seconds 22.5-36.0 lcbd=698) BASIC METABOLIC [id number] 05:56:00 Test Item Value Reference Range Comments SODIUM (BEAKER) (test 138 meq/L 136-145 hmtn=315) POTASSIUM (BEAKER) (test 3.7 meq/L 3.5-5.1 jpxw=471) CHLORIDE (BEAKER) (test 105 meq/L 98-107 ltfi=970) CO2 (BEAKER) (test 25 meq/L 22-29 qlbl=863) BLOOD UREA NITROGEN 7 mg/dL 7-21 (BEAKER) (test bbpp=681) CREATININE (BEAKER) (test 0.62 mg/dL 0.57-1.25 gqbj=821) GLUCOSE RANDOM (BEAKER) 120 mg/dL 70-105 (test jkim=808) CALCIUM (BEAKER) (test 8.7 mg/dL 8.4-10.2 zklf=712) EGFR (BEAKER) (test 145 mL/min/1.73 sq m ESTIMATED GFR IS NOT amzb=3977) ACCURATE CREATININE CLEARANCE IN PREDICTING GLOMERULAR FILTRATION RATE. ESTIMATED GFR IS NOT APPLICABLE FOR DIALYSIS PATIENTS. CBC W/PLT COUNT & AUTO [id number] 05:42:00 Test Item Value Reference Range Comments WHITE BLOOD CELL COUNT (BEAKER) (test ukpi=488) 4.6 K/ L 3.5-10.5 RED BLOOD CELL COUNT (BEAKER) (test woxm=559) 3.83 M/ L 4.63-6.08 HEMOGLOBIN (BEAKER) (test ctcf=809) 11.7 GM/DL 13.7-17.5 HEMATOCRIT (BEAKER) (test hvfm=016) 34.7 % 40.1-51.0 MEAN CORPUSCULAR VOLUME (BEAKER) (test ydbk=748) 90.6 fL 79.0-92.2 MEAN CORPUSCULAR HEMOGLOBIN (BEAKER) (test 30.5 pg 25.7-32.2 qrkj=060) MEAN CORPUSCULAR HEMOGLOBIN CONC (BEAKER) (test 33.7 GM/DL 32.3-36.5 thdk=450) RED CELL DISTRIBUTION WIDTH (BEAKER) (test 14.3 % 11.6-14.4 kmjd=473) PLATELET COUNT (BEAKER) (test qftr=202) 378 K/CU MM 150-450 MEAN PLATELET VOLUME (BEAKER) (test temn=521) 9.0 fL 9.4-12.4 NUCLEATED RED BLOOD CELLS (BEAKER) (test 0 /100 WBC 0-0 cgyt=362) NEUTROPHILS RELATIVE PERCENT (BEAKER) (test 39 % ejtv=174) LYMPHOCYTES RELATIVE PERCENT (BEAKER) (test 43 % twij=996) MONOCYTES RELATIVE PERCENT (BEAKER) (test 12 % faxt=341) EOSINOPHILS RELATIVE PERCENT (BEAKER) (test 5 % qdnd=193) BASOPHILS RELATIVE PERCENT (BEAKER) (test 1 % idsm=989) NEUTROPHILS ABSOLUTE COUNT (BEAKER) (test 1.81 K/ L 1.78-5.38 xuqh=393) LYMPHOCYTES ABSOLUTE COUNT (BEAKER) (test 2.01 K/ L 1.32-3.57 jmvd=630) MONOCYTES ABSOLUTE COUNT (BEAKER) (test 0.55 K/ L 0.30-0.82 jpuo=593) EOSINOPHILS ABSOLUTE COUNT (BEAKER) (test 0.21 K/ L 0.04-0.54 pocq=387) BASOPHILS ABSOLUTE COUNT (BEAKER) (test 0.05 K/ L 0.01-0.08 rlcd=134) IMMATURE GRANULOCYTES-RELATIVE PERCENT (BEAKER) 0 % 0-1 (test ounv=6437) FINE NEEDLE ASPIRATE (FNA) [id number] 20:00:00 Test Item Value Reference Range Comments CYTOLOGY RESULT POINTER (BEAKER) (test See Separate Report ydgh=6942) [id number] 12:16:00 Test Item Value Reference Range Comments PARTIAL THROMBOPLASTIN TIME (BEAKER) (test 84.6 seconds 22.5-36.0 qglo=283) BASIC METABOLIC [id number] 05:21:00 Test Item Value Reference Range Comments SODIUM (BEAKER) (test 126 meq/L 136-145 pqjh=298) POTASSIUM (BEAKER) (test 2.8 meq/L 3.5-5.1 fluz=674) CHLORIDE (BEAKER) (test 99 meq/L 98-107 mtbl=329) CO2 (BEAKER) (test 20 meq/L 22-29 axbx=007) BLOOD UREA NITROGEN 3 mg/dL 7-21 (BEAKER) (test xsdf=620) CREATININE (BEAKER) (test 0.44 mg/dL 0.57-1.25 cnyd=368) GLUCOSE RANDOM (BEAKER) 75 mg/dL 70-105 (test vdod=537) CALCIUM (BEAKER) (test 6.8 mg/dL 8.4-10.2 doza=468) EGFR (BEAKER) (test 216 mL/min/1.73 sq m ESTIMATED GFR IS NOT svnm=8299) ACCURATE CREATININE CLEARANCE IN PREDICTING GLOMERULAR FILTRATION RATE. ESTIMATED GFR IS NOT APPLICABLE FOR DIALYSIS PATIENTS. [id number] 05:13:00 Test Item Value Reference Range Comments PARTIAL THROMBOPLASTIN TIME (BEAKER) (test 110.2 seconds 22.5-36.0 zmtj=411) CBC W/PLT COUNT & AUTO [id number] 04:45:00 Test Item Value Reference Range Comments WHITE BLOOD CELL COUNT (BEAKER) (test rgwl=259) 4.4 K/ L 3.5-10.5 RED BLOOD CELL COUNT (BEAKER) (test ygmq=186) 3.25 M/ L 4.63-6.08 HEMOGLOBIN (BEAKER) (test qibk=495) 10.1 GM/DL 13.7-17.5 HEMATOCRIT (BEAKER) (test wtti=044) 29.9 % 40.1-51.0 MEAN CORPUSCULAR VOLUME (BEAKER) (test iqrk=894) 92.0 fL 79.0-92.2 MEAN CORPUSCULAR HEMOGLOBIN (BEAKER) (test 31.1 pg 25.7-32.2 ldqw=778) MEAN CORPUSCULAR HEMOGLOBIN CONC (BEAKER) (test 33.8 GM/DL 32.3-36.5 mjnz=166) RED CELL DISTRIBUTION WIDTH (BEAKER) (test 14.5 % 11.6-14.4 doqt=982) PLATELET COUNT (BEAKER) (test npyz=875) 297 K/CU MM 150-450 MEAN PLATELET VOLUME (BEAKER) (test lepr=806) 9.1 fL 9.4-12.4 NUCLEATED RED BLOOD CELLS (BEAKER) (test 0 /100 WBC 0-0 yaeo=128) NEUTROPHILS RELATIVE PERCENT (BEAKER) (test 44 % bgoa=577) LYMPHOCYTES RELATIVE PERCENT (BEAKER) (test 40 % yyje=653) MONOCYTES RELATIVE PERCENT (BEAKER) (test 11 % rgfv=858) EOSINOPHILS RELATIVE PERCENT (BEAKER) (test 4 % ryzz=807) BASOPHILS RELATIVE PERCENT (BEAKER) (test 1 % xiso=692) NEUTROPHILS ABSOLUTE COUNT (BEAKER) (test 1.96 K/ L 1.78-5.38 icae=528) LYMPHOCYTES ABSOLUTE COUNT (BEAKER) (test 1.77 K/ L 1.32-3.57 gkof=753) MONOCYTES ABSOLUTE COUNT (BEAKER) (test 0.49 K/ L 0.30-0.82 nvig=155) EOSINOPHILS ABSOLUTE COUNT (BEAKER) (test 0.16 K/ L 0.04-0.54 errl=565) BASOPHILS ABSOLUTE COUNT (BEAKER) (test 0.05 K/ L 0.01-0.08 akeo=839) IMMATURE GRANULOCYTES-RELATIVE PERCENT (BEAKER) 0 % 0-1 (test apsd=2867) [id number] 21:32:00 Test Item Value Reference Range Comments PARTIAL THROMBOPLASTIN TIME (BEAKER) (test 118.1 seconds 22.5-36.0 yacy=303) BASIC METABOLIC [id number] 14:23:00 Test Item Value Reference Range Comments SODIUM (BEAKER) (test 139 meq/L 136-145 mmxq=931) POTASSIUM (BEAKER) (test 3.6 meq/L 3.5-5.1 qeqf=191) CHLORIDE (BEAKER) (test 103 meq/L 98-107 tult=195) CO2 (BEAKER) (test 29 meq/L 22-29 hyws=839) BLOOD UREA NITROGEN 3 mg/dL 7-21 (BEAKER) (test eddc=468) CREATININE (BEAKER) (test 0.54 mg/dL 0.57-1.25 zmyv=890) GLUCOSE RANDOM (BEAKER) 108 mg/dL 70-105 (test unus=981) CALCIUM (BEAKER) (test 8.6 mg/dL 8.4-10.2 hnhg=885) EGFR (BEAKER) (test 170 mL/min/1.73 sq m ESTIMATED GFR IS NOT wleo=7973) ACCURATE CREATININE CLEARANCE IN PREDICTING GLOMERULAR FILTRATION RATE. ESTIMATED GFR IS NOT APPLICABLE FOR DIALYSIS PATIENTS. [id number] 14:06:00 Test Item Value Reference Range Comments PARTIAL THROMBOPLASTIN TIME (BEAKER) (test 66.8 seconds 22.5-36.0 fhaq=573) CBC W/PLT COUNT & AUTO [id number] 13:57:00 Test Item Value Reference Range Comments WHITE BLOOD CELL COUNT (BEAKER) (test dbwz=463) 4.6 K/ L 3.5-10.5 RED BLOOD CELL COUNT (BEAKER) (test hjoi=331) 3.95 M/ L 4.63-6.08 HEMOGLOBIN (BEAKER) (test kuyr=005) 11.9 GM/DL 13.7-17.5 HEMATOCRIT (BEAKER) (test ezcr=560) 36.5 % 40.1-51.0 MEAN CORPUSCULAR VOLUME (BEAKER) (test fxna=092) 92.4 fL 79.0-92.2 MEAN CORPUSCULAR HEMOGLOBIN (BEAKER) (test 30.1 pg 25.7-32.2 qosd=597) MEAN CORPUSCULAR HEMOGLOBIN CONC (BEAKER) (test 32.6 GM/DL 32.3-36.5 fjsn=416) RED CELL DISTRIBUTION WIDTH (BEAKER) (test 14.2 % 11.6-14.4 hlfp=518) PLATELET COUNT (BEAKER) (test ncjo=414) 347 K/CU MM 150-450 MEAN PLATELET VOLUME (BEAKER) (test gnku=927) 9.2 fL 9.4-12.4 NUCLEATED RED BLOOD CELLS (BEAKER) (test 0 /100 WBC 0-0 akvx=761) NEUTROPHILS RELATIVE PERCENT (BEAKER) (test 44 % lymu=133) LYMPHOCYTES RELATIVE PERCENT (BEAKER) (test 37 % zywh=592) MONOCYTES RELATIVE PERCENT (BEAKER) (test 13 % turo=250) EOSINOPHILS RELATIVE PERCENT (BEAKER) (test 5 % tpuh=668) BASOPHILS RELATIVE PERCENT (BEAKER) (test 1 % leya=953) NEUTROPHILS ABSOLUTE COUNT (BEAKER) (test 1.99 K/ L 1.78-5.38 ijmm=845) LYMPHOCYTES ABSOLUTE COUNT (BEAKER) (test 1.69 K/ L 1.32-3.57 ireg=920) MONOCYTES ABSOLUTE COUNT (BEAKER) (test 0.61 K/ L 0.30-0.82 zurg=657) EOSINOPHILS ABSOLUTE COUNT (BEAKER) (test 0.21 K/ L 0.04-0.54 llae=124) BASOPHILS ABSOLUTE COUNT (BEAKER) (test 0.05 K/ L 0.01-0.08 sbni=727) IMMATURE GRANULOCYTES-RELATIVE PERCENT (BEAKER) 0 % 0-1 (test lvsu=8149) BASIC METABOLIC [id number] 07:03:00 Test Item Value Reference Range Comments SODIUM (BEAKER) (test 140 meq/L 136-145 bbxy=534) POTASSIUM (BEAKER) (test 3.4 meq/L 3.5-5.1 opoy=220) CHLORIDE (BEAKER) (test 100 meq/L 98-107 phhx=626) CO2 (BEAKER) (test 30 meq/L 22-29 nhks=940) BLOOD UREA NITROGEN 3 mg/dL 7-21 (BEAKER) (test cmye=974) CREATININE (BEAKER) (test 0.56 mg/dL 0.57-1.25 boeb=799) GLUCOSE RANDOM (BEAKER) 102 mg/dL 70-105 (test wddq=234) CALCIUM (BEAKER) (test 9.2 mg/dL 8.4-10.2 dmbu=453) EGFR (BEAKER) (test 163 mL/min/1.73 sq m ESTIMATED GFR IS NOT bpnu=8600) ACCURATE CREATININE CLEARANCE IN PREDICTING GLOMERULAR FILTRATION RATE. ESTIMATED GFR IS NOT APPLICABLE FOR DIALYSIS PATIENTS. [id number] 06:47:00 Test Item Value Reference Range Comments PARTIAL THROMBOPLASTIN TIME (BEAKER) (test 46.7 seconds 22.5-36.0 gnyq=864) [id number] 00:50:00 Test Item Value Reference Range Comments PARTIAL THROMBOPLASTIN TIME (BEAKER) (test 53.5 seconds 22.5-36.0 ltxa=190) [id number] 17:34:00 Test Item Value Reference Range Comments PARTIAL THROMBOPLASTIN TIME (BEAKER) (test 45.8 seconds 22.5-36.0 yarx=284) [id number] 08:32:00 Test Item Value Reference Range Comments PARTIAL THROMBOPLASTIN TIME (BEAKER) (test 38.7 seconds 22.5-36.0 kgfy=369) Prior to initiating heparinBASIC METABOLIC [id number] 06:05:00 Test Item Value Reference Range Comments SODIUM (BEAKER) (test 136 meq/L 136-145 uyaa=016) POTASSIUM (BEAKER) (test 3.3 meq/L 3.5-5.1 ccql=565) CHLORIDE (BEAKER) (test 102 meq/L 98-107 mjwd=718) CO2 (BEAKER) (test 26 meq/L 22-29 bonp=875) BLOOD UREA NITROGEN 2 mg/dL 7-21 (BEAKER) (test fxak=930) CREATININE (BEAKER) (test 0.55 mg/dL 0.57-1.25 yddi=147) GLUCOSE RANDOM (BEAKER) 124 mg/dL 70-105 (test jipl=534) CALCIUM (BEAKER) (test 8.0 mg/dL 8.4-10.2 cepg=920) EGFR (BEAKER) (test 167 mL/min/1.73 sq m ESTIMATED GFR IS NOT fvoo=5954) ACCURATE CREATININE CLEARANCE IN PREDICTING GLOMERULAR FILTRATION RATE. ESTIMATED GFR IS NOT APPLICABLE FOR DIALYSIS PATIENTS. BLOOD [id number] 06:00:00 Test Item Value Reference Range Comments CULTURE (BEAKER) (test lwdr=5266) No growth in 5 days BLOOD [id number] 06:00:00 Test Item Value Reference Range Comments CULTURE (BEAKER) (test nych=6334) No growth in 5 days [id number] 03:55:00 Test Item Value Reference Range Comments PHOSPHORUS (BEAKER) (test dlxm=240) 2.8 mg/dL 2.3-4.7 [id number] 03:55:00 Test Item Value Reference Range Comments MAGNESIUM (BEAKER) (test mxby=150) 1.3 mg/dL 1.6-2.6 BASIC METABOLIC [id number] 03:55:00 Test Item Value Reference Range Comments SODIUM (BEAKER) (test 137 meq/L 136-145 xviq=205) POTASSIUM (BEAKER) (test 3.2 meq/L 3.5-5.1 gytp=018) CHLORIDE (BEAKER) (test 103 meq/L 98-107 ldyh=489) CO2 (BEAKER) (test 22 meq/L 22-29 ezco=685) BLOOD UREA NITROGEN 3 mg/dL 7-21 (BEAKER) (test fuun=327) CREATININE (BEAKER) (test 0.51 mg/dL 0.57-1.25 rzbp=730) GLUCOSE RANDOM (BEAKER) 65 mg/dL 70-105 (test hslk=032) CALCIUM (BEAKER) (test 8.0 mg/dL 8.4-10.2 cquu=922) EGFR (BEAKER) (test 182 mL/min/1.73 sq m ESTIMATED GFR IS NOT ufjm=8207) ACCURATE CREATININE CLEARANCE IN PREDICTING GLOMERULAR FILTRATION RATE. ESTIMATED GFR IS NOT APPLICABLE FOR DIALYSIS PATIENTS. [id number] 03:55:00 Test Item Value Reference Range Comments LIPASE (BEAKER) (test twvn=900) 210 U/L 8-78 CBC W/PLT COUNT & AUTO [id number] 03:37:00 Test Item Value Reference Range Comments WHITE BLOOD CELL COUNT (BEAKER) (test glut=707) 6.1 K/ L 3.5-10.5 RED BLOOD CELL COUNT (BEAKER) (test zilh=813) 3.63 M/ L 4.63-6.08 HEMOGLOBIN (BEAKER) (test kaai=650) 11.1 GM/DL 13.7-17.5 HEMATOCRIT (BEAKER) (test agsj=524) 33.0 % 40.1-51.0 MEAN CORPUSCULAR VOLUME (BEAKER) (test gome=745) 90.9 fL 79.0-92.2 MEAN CORPUSCULAR HEMOGLOBIN (BEAKER) (test 30.6 pg 25.7-32.2 ghrv=669) MEAN CORPUSCULAR HEMOGLOBIN CONC (BEAKER) (test 33.6 GM/DL 32.3-36.5 lxsr=272) RED CELL DISTRIBUTION WIDTH (BEAKER) (test 14.3 % 11.6-14.4 qfev=263) PLATELET COUNT (BEAKER) (test bltw=946) 262 K/CU MM 150-450 MEAN PLATELET VOLUME (BEAKER) (test harw=692) 9.1 fL 9.4-12.4 NUCLEATED RED BLOOD CELLS (BEAKER) (test 0 /100 WBC 0-0 xeoz=276) NEUTROPHILS RELATIVE PERCENT (BEAKER) (test 69 % epuj=875) LYMPHOCYTES RELATIVE PERCENT (BEAKER) (test 17 % lnaw=003) MONOCYTES RELATIVE PERCENT (BEAKER) (test 10 % viqu=521) EOSINOPHILS RELATIVE PERCENT (BEAKER) (test 3 % weqc=760) BASOPHILS RELATIVE PERCENT (BEAKER) (test 0 % gjdi=179) NEUTROPHILS ABSOLUTE COUNT (BEAKER) (test 4.21 K/ L 1.78-5.38 qjtj=618) LYMPHOCYTES ABSOLUTE COUNT (BEAKER) (test 1.04 K/ L 1.32-3.57 ixmx=472) MONOCYTES ABSOLUTE COUNT (BEAKER) (test 0.60 K/ L 0.30-0.82 vzai=663) EOSINOPHILS ABSOLUTE COUNT (BEAKER) (test 0.18 K/ L 0.04-0.54 phvb=374) BASOPHILS ABSOLUTE COUNT (BEAKER) (test 0.02 K/ L 0.01-0.08 rufa=295) IMMATURE GRANULOCYTES-RELATIVE PERCENT (BEAKER) 1 % 0-1 (test owmf=0562) CT, ABDOMEN - PELVIS, PANCREAS [id number] 00:22:00Reason for exam:-&gt ;pancreatitisFINAL REPORT CT, ABDOMEN [...] Verified Date/ Time: 09/04/2017 00:22:52 Reading Location: [address] Reading Room [id number] 06:00:00 Test Item Value Reference Range Comments MAGNESIUM (BEAKER) (test 1.6 mg/dL 1.6-2.6 Specimen slightly hemolyzed iooc=601) [id number] 06:00:00 Test Item Value Reference Range Comments PHOSPHORUS (BEAKER) (test 3.4 mg/dL 2.3-4.7 Specimen slightly hemolyzed ihuz=866) BASIC METABOLIC [id number] 06:00:00 Test Item Value Reference Range Comments SODIUM (BEAKER) (test 132 meq/L 136-145 tyxs=197) POTASSIUM (BEAKER) (test 3.9 meq/L 3.5-5.1 Specimen slightly usrk=828) hemolyzed CHLORIDE (BEAKER) (test 101 meq/L 98-107 bzel=433) CO2 (BEAKER) (test 22 meq/L 22-29 syhw=463) BLOOD UREA NITROGEN 7 mg/dL 7-21 (BEAKER) (test euio=497) CREATININE (BEAKER) (test 0.49 mg/dL 0.57-1.25 Specimen slightly ecoo=200) hemolyzed GLUCOSE RANDOM (BEAKER) 59 mg/dL 70-105 (test niqz=415) CALCIUM (BEAKER) (test 8.1 mg/dL 8.4-10.2 jwpx=123) EGFR (BEAKER) (test 190 mL/min/1.73 sq m ESTIMATED GFR IS NOT hptt=3596) ACCURATE CREATININE CLEARANCE IN PREDICTING GLOMERULAR FILTRATION RATE. ESTIMATED GFR IS NOT APPLICABLE FOR DIALYSIS PATIENTS. HEPATIC FUNCTION [id number] 06:00:00 Test Item Value Reference Range Comments TOTAL PROTEIN (BEAKER) (test 5.7 gm/dL 6.0-8.3 Specimen slightly hemolyzed daiu=957) ALBUMIN (BEAKER) (test 3.0 g/dL 3.5-5.0 Specimen slightly hemolyzed avun=9320) BILIRUBIN TOTAL (BEAKER) (test 1.2 mg/dL 0.2-1.2 Specimen slightly hemolyzed dtuw=703) BILIRUBIN DIRECT (BEAKER) (test 0.4 mg/dL 0.1-0.5 Specimen slightly hemolyzed mpnq=541) ALKALINE PHOSPHATASE (BEAKER) 62 U/L 40-150 (test hgyj=763) AST (SGOT) (BEAKER) (test 18 U/L 5-34 Specimen slightly hemolyzed bngs=046) ALT (SGPT) (BEAKER) (test < U/L 6-55 Specimen slightly hemolyzed oeek=833) CBC W/PLT COUNT & AUTO [id number] 05:43:00 Test Item Value Reference Range Comments WHITE BLOOD CELL COUNT (BEAKER) (test mwcz=498) 8.4 K/ L 3.5-10.5 RED BLOOD CELL COUNT (BEAKER) (test qmny=712) 3.68 M/ L 4.63-6.08 HEMOGLOBIN (BEAKER) (test xnzm=711) 11.6 GM/DL 13.7-17.5 HEMATOCRIT (BEAKER) (test ibjd=981) 34.4 % 40.1-51.0 MEAN CORPUSCULAR VOLUME (BEAKER) (test luav=443) 93.5 fL 79.0-92.2 MEAN CORPUSCULAR HEMOGLOBIN (BEAKER) (test 31.5 pg 25.7-32.2 sasz=272) MEAN CORPUSCULAR HEMOGLOBIN CONC (BEAKER) (test 33.7 GM/DL 32.3-36.5 cusa=526) RED CELL DISTRIBUTION WIDTH (BEAKER) (test 14.6 % 11.6-14.4 wzbz=695) PLATELET COUNT (BEAKER) (test rhax=210) 221 K/CU MM 150-450 MEAN PLATELET VOLUME (BEAKER) (test jeli=163) 9.5 fL 9.4-12.4 NUCLEATED RED BLOOD CELLS (BEAKER) (test 0 /100 WBC 0-0 bpub=286) NEUTROPHILS RELATIVE PERCENT (BEAKER) (test 75 % jvrl=902) LYMPHOCYTES RELATIVE PERCENT (BEAKER) (test 14 % fgcu=985) MONOCYTES RELATIVE PERCENT (BEAKER) (test 10 % xref=023) EOSINOPHILS RELATIVE PERCENT (BEAKER) (test 1 % olzn=805) BASOPHILS RELATIVE PERCENT (BEAKER) (test 0 % nfyb=619) NEUTROPHILS ABSOLUTE COUNT (BEAKER) (test 6.27 K/ L 1.78-5.38 kahi=214) LYMPHOCYTES ABSOLUTE COUNT (BEAKER) (test 1.16 K/ L 1.32-3.57 kpij=529) MONOCYTES ABSOLUTE COUNT (BEAKER) (test 0.87 K/ L 0.30-0.82 cxcj=882) EOSINOPHILS ABSOLUTE COUNT (BEAKER) (test 0.07 K/ L 0.04-0.54 fbsk=197) BASOPHILS ABSOLUTE COUNT (BEAKER) (test 0.03 K/ L 0.01-0.08 fota=629) IMMATURE GRANULOCYTES-RELATIVE PERCENT (BEAKER) 0 % 0-1 (test tbgt=6005) POCT-GLUCOSE [id number] 07:30:00 Test Item Value Reference Range Comments POC-GLUCOSE METER (BEAKER) 140 mg/dL 70-110 TESTED AT [address] (test urkl=5601) [place] [id number] POCT-GLUCOSE [id number] 07:30:00 Test Item Value Reference Range Comments POC-GLUCOSE METER (BEAKER) 59 mg/dL 70-110 TESTED AT [address] (test ebiy=1054) [place] [id number] 05:16:00 Test Item Value Reference Range Comments MAGNESIUM (BEAKER) (test 1.7 mg/dL 1.6-2.6 Specimen slightly hemolyzed dygk=634) [id number] 05:16:00 Test Item Value Reference Range Comments PHOSPHORUS (BEAKER) (test 3.7 mg/dL 2.3-4.7 Specimen slightly hemolyzed ivpj=922) BASIC METABOLIC [id number] 05:16:00 Test Item Value Reference Range Comments SODIUM (BEAKER) (test 136 meq/L 136-145 znnb=167) POTASSIUM (BEAKER) (test 4.1 meq/L 3.5-5.1 Specimen slightly qpbo=565) hemolyzed CHLORIDE (BEAKER) (test 105 meq/L 98-107 awum=917) CO2 (BEAKER) (test 21 meq/L 22-29 kmkx=700) BLOOD UREA NITROGEN 12 mg/dL 7-21 (BEAKER) (test yzte=891) CREATININE (BEAKER) (test 0.62 mg/dL 0.57-1.25 Specimen slightly pqmn=293) hemolyzed GLUCOSE RANDOM (BEAKER) 65 mg/dL 70-105 (test uxgg=305) CALCIUM (BEAKER) (test 8.4 mg/dL 8.4-10.2 wefp=306) EGFR (BEAKER) (test 145 mL/min/1.73 sq m ESTIMATED GFR IS NOT vxgz=1562) ACCURATE CREATININE CLEARANCE IN PREDICTING GLOMERULAR FILTRATION RATE. ESTIMATED GFR IS NOT APPLICABLE FOR DIALYSIS PATIENTS. HEPATIC FUNCTION [id number] 05:16:00 Test Item Value Reference Range Comments TOTAL PROTEIN (BEAKER) (test 5.9 gm/dL 6.0-8.3 Specimen slightly hemolyzed fhkh=568) ALBUMIN (BEAKER) (test 3.3 g/dL 3.5-5.0 Specimen slightly hemolyzed embi=7454) BILIRUBIN TOTAL (BEAKER) (test 1.4 mg/dL 0.2-1.2 Specimen slightly hemolyzed mbih=957) BILIRUBIN DIRECT (BEAKER) (test 0.5 mg/dL 0.1-0.5 Specimen slightly hemolyzed npcy=835) ALKALINE PHOSPHATASE (BEAKER) 66 U/L 40-150 (test saob=577) AST (SGOT) (BEAKER) (test 16 U/L 5-34 Specimen slightly hemolyzed gtkp=516) ALT (SGPT) (BEAKER) (test 6 U/L 6-55 Specimen slightly hemolyzed krsl=339) CBC W/PLT COUNT & AUTO [id number] 04:45:00 Test Item Value Reference Range Comments WHITE BLOOD CELL COUNT (BEAKER) (test avan=888) 9.1 K/ L 3.5-10.5 RED BLOOD CELL COUNT (BEAKER) (test dxgz=463) 4.04 M/ L 4.63-6.08 HEMOGLOBIN (BEAKER) (test tjjt=362) 12.3 GM/DL 13.7-17.5 HEMATOCRIT (BEAKER) (test eewa=322) 38.1 % 40.1-51.0 MEAN CORPUSCULAR VOLUME (BEAKER) (test guyi=135) 94.3 fL 79.0-92.2 MEAN CORPUSCULAR HEMOGLOBIN (BEAKER) (test 30.4 pg 25.7-32.2 zoym=281) MEAN CORPUSCULAR HEMOGLOBIN CONC (BEAKER) (test 32.3 GM/DL 32.3-36.5 xmlt=485) RED CELL DISTRIBUTION WIDTH (BEAKER) (test 15.7 % 11.6-14.4 mncg=679) PLATELET COUNT (BEAKER) (test lunr=969) 243 K/CU MM 150-450 MEAN PLATELET VOLUME (BEAKER) (test hgdc=589) 9.5 fL 9.4-12.4 NUCLEATED RED BLOOD CELLS (BEAKER) (test 0 /100 WBC 0-0 hkhz=418) NEUTROPHILS RELATIVE PERCENT (BEAKER) (test 72 % moda=533) LYMPHOCYTES RELATIVE PERCENT (BEAKER) (test 16 % lwcu=190) MONOCYTES RELATIVE PERCENT (BEAKER) (test 10 % ckdv=212) EOSINOPHILS RELATIVE PERCENT (BEAKER) (test 1 % giuo=766) BASOPHILS RELATIVE PERCENT (BEAKER) (test 0 % jneq=409) NEUTROPHILS ABSOLUTE COUNT (BEAKER) (test 6.58 K/ L 1.78-5.38 luqd=787) LYMPHOCYTES ABSOLUTE COUNT (BEAKER) (test 1.48 K/ L 1.32-3.57 ywkm=432) MONOCYTES ABSOLUTE COUNT (BEAKER) (test 0.95 K/ L 0.30-0.82 ahlj=815) EOSINOPHILS ABSOLUTE COUNT (BEAKER) (test 0.05 K/ L 0.04-0.54 cunh=509) BASOPHILS ABSOLUTE COUNT (BEAKER) (test 0.04 K/ L 0.01-0.08 sket=598) IMMATURE GRANULOCYTES-RELATIVE PERCENT (BEAKER) 0 % 0-1 (test mnef=6694) HEMOGLOBIN [id number] 10:23:00 Test Item Value Reference Range Comments HEMOGLOBIN A1C (BEAKER) (test sfcr=325) 4.7 % 4.3-6.1 U/S, ABDOMINAL, [id number] 09:53:00Abdomen limited area? Add comment if clarification [...] Nelson MDReport Verified Date/Time:09/01/2017 09:53:12 Reading Location: [address] Ultrasound Reading Room SEDIMENTATION [id number] 08:01:00 Test Item Value Reference Range Comments SEDIMENTATION RATE, ERYTHROCYTE (BEAKER) (test 3 mm/HR 0-15 wwjx=807) TSH/FREE T4 IF [id number] 04:12:00 Test Item Value Reference Range Comments THYROID STIMULATING HORMONE (BEAKER) (test 0.36 uIU/mL 0.35-4.94 yijx=323) CREATINE KINASE (CK), TOTAL AND [id number] 04:03:00 Test Item Value Reference Range Comments CREATINE KINASE TOTAL (BEAKER) (test bguh=963) 29 U/L 29-200 CREATINE KINASE-MB (BEAKER) (test amyy=128) 0.4 ng/mL 0.0-6.6 CREATINE KINASE-MB INDEX (BEAKER) (test nhop=930) 1.4 % CK-MB Reference Range:<6.7 Normal6.7-10.0 Borderline>10.0 AbnormalTROPONIN [id number] 04:03:00 Test Item Value Reference Range Comments TROPONIN I (BEAKER) (test eliy=308) < ng/mL 0.00-0.03 Troponin I (TnI) levels [...] failure, acidosis, acute neurological disease, and persistent tachyarrhythmia.[id number] 03:53:00 Test Item Value Reference Range Comments PHOSPHORUS (BEAKER) (test eyai=760) 3.5 mg/dL 2.3-4.7 [id number] 03:53:00 Test Item Value Reference Range Comments MAGNESIUM (BEAKER) (test wewo=978) 1.7 mg/dL 1.6-2.6 BASIC METABOLIC [id number] 03:53:00 Test Item Value Reference Range Comments SODIUM (BEAKER) (test 137 meq/L 136-145 bqom=007) POTASSIUM (BEAKER) (test 3.8 meq/L 3.5-5.1 kpoy=970) CHLORIDE (BEAKER) (test 105 meq/L 98-107 dmaz=786) CO2 (BEAKER) (test 23 meq/L 22-29 fhon=250) BLOOD UREA NITROGEN 7 mg/dL 7-21 (BEAKER) (test knco=480) CREATININE (BEAKER) (test 0.62 mg/dL 0.57-1.25 qqzj=806) GLUCOSE RANDOM (BEAKER) 102 mg/dL 70-105 (test wnag=640) CALCIUM (BEAKER) (test 9.0 mg/dL 8.4-10.2 feel=560) EGFR (BEAKER) (test 145 mL/min/1.73 sq m ESTIMATED GFR IS NOT jjxt=0902) ACCURATE CREATININE CLEARANCE IN PREDICTING GLOMERULAR FILTRATION RATE. ESTIMATED GFR IS NOT APPLICABLE FOR DIALYSIS PATIENTS. LIPID [id number] 03:53:00 Test Item Value Reference Range Comments TRIGLYCERIDES (BEAKER) (test xwio=089) 76 mg/dL CHOLESTEROL (BEAKER) (test jyur=156) 118 mg/dL HDL CHOLESTEROL (BEAKER) (test cojb=703) 37 mg/dL LDL CHOLESTEROL CALCULATED (BEAKER) (test 66 mg/dL xsvs=907) Triglyceride Reference Range: Low Risk <150 Borderline 150- 199 High Risk 200-499 Very High Risk >=500Cholesterol Reference Range: Low Risk <200 Borderline 200-239 High Risk > 240HDL Cholesterol Reference Range: Low Risk >=60 High Risk <40LDL Cholesterol Reference Range: Optimal <100 Near Optimal 100-129 Borderline 130-159 High 160-189 Very High >=190HEPATIC FUNCTION [id number] 03:53:00 Test Item Value Reference Range Comments TOTAL PROTEIN (BEAKER) (test kdyn=766) 6.8 gm/dL 6.0-8.3 ALBUMIN (BEAKER) (test xluk=9355) 3.9 g/dL 3.5-5.0 BILIRUBIN TOTAL (BEAKER) (test oups=429) 1.2 mg/dL 0.2-1.2 BILIRUBIN DIRECT (BEAKER) (test mzan=042) 0.5 mg/dL 0.1-0.5 ALKALINE PHOSPHATASE (BEAKER) (test tuin=664) 81 U/L 40-150 AST (SGOT) (BEAKER) (test kccv=486) 13 U/L 5-34 ALT (SGPT) (BEAKER) (test jfuq=588) 6 U/L 6-55 [id number] 03:53:00 Test Item Value Reference Range Comments AMYLASE (BEAKER) (test jaeu=120) 383 U/L 25-125 [id number] 03:53:00 Test Item Value Reference Range Comments LIPASE (BEAKER) (test fdth=560) 266 U/L 8-78 C-REACTIVE [id number] 03:53:00 Test Item Value Reference Range Comments C-REACTIVE PROTEIN (BEAKER) (test jmow=823) 0.23 mg/dL 0.00-0.50 CBC W/PLT COUNT & AUTO [id number] 03:38:00 Test Item Value Reference Range Comments WHITE BLOOD CELL COUNT (BEAKER) (test qcwg=869) 10.7 K/ L 3.5-10.5 RED BLOOD CELL COUNT (BEAKER) (test ands=967) 4.45 M/ L 4.63-6.08 HEMOGLOBIN (BEAKER) (test oohg=940) 13.6 GM/DL 13.7-17.5 HEMATOCRIT (BEAKER) (test abkk=727) 40.4 % 40.1-51.0 MEAN CORPUSCULAR VOLUME (BEAKER) (test ikox=497) 90.8 fL 79.0-92.2 MEAN CORPUSCULAR HEMOGLOBIN (BEAKER) (test 30.6 pg 25.7-32.2 voqg=715) MEAN CORPUSCULAR HEMOGLOBIN CONC (BEAKER) (test 33.7 GM/DL 32.3-36.5 uepe=904) RED CELL DISTRIBUTION WIDTH (BEAKER) (test 15.5 % 11.6-14.4 vfmc=557) PLATELET COUNT (BEAKER) (test ruuy=150) 277 K/CU MM 150-450 MEAN PLATELET VOLUME (BEAKER) (test dpbh=996) 9.7 fL 9.4-12.4 NUCLEATED RED BLOOD CELLS (BEAKER) (test 0 /100 WBC 0-0 mrhl=793) NEUTROPHILS RELATIVE PERCENT (BEAKER) (test 70 % nmmi=446) LYMPHOCYTES RELATIVE PERCENT (BEAKER) (test 18 % xmat=880) MONOCYTES RELATIVE PERCENT (BEAKER) (test 11 % jagv=551) EOSINOPHILS RELATIVE PERCENT (BEAKER) (test 0 % iwvo=501) BASOPHILS RELATIVE PERCENT (BEAKER) (test 0 % jsii=650) NEUTROPHILS ABSOLUTE COUNT (BEAKER) (test 7.46 K/ L 1.78-5.38 xkas=306) LYMPHOCYTES ABSOLUTE COUNT (BEAKER) (test 1.93 K/ L 1.32-3.57 qrbu=435) MONOCYTES ABSOLUTE COUNT (BEAKER) (test 1.17 K/ L 0.30-0.82 awey=284) EOSINOPHILS ABSOLUTE COUNT (BEAKER) (test 0.02 K/ L 0.04-0.54 bzww=982) BASOPHILS ABSOLUTE COUNT (BEAKER) (test 0.03 K/ L 0.01-0.08 mbbp=431) IMMATURE GRANULOCYTES-RELATIVE PERCENT (BEAKER) 0 % 0-1 (test wfwq=5857) COMPREHENSIVE METABOLIC [id number] 14:02:00 Test Item Value Reference Range Comments TOTAL PROTEIN (BEAKER) 7.8 gm/dL 6.0-8.3 (test odvc=428) ALBUMIN (BEAKER) (test 3.9 g/dL 3.5-5.0 nynf=8121) ALKALINE PHOSPHATASE 62 U/L 40-150 (BEAKER) (test muui=016) BILIRUBIN TOTAL (BEAKER) 0.3 mg/dL 0.2-1.2 (test hafx=254) SODIUM (BEAKER) (test 139 meq/L 136-145 vgkt=358) POTASSIUM (BEAKER) (test 4.2 meq/L 3.5-5.1 yfbs=131) CHLORIDE (BEAKER) (test 104 meq/L 98-107 fult=383) CO2 (BEAKER) (test 26 meq/L 22-29 nvzw=897) BLOOD UREA NITROGEN 9 mg/dL 7-21 (BEAKER) (test vlcv=811) CREATININE (BEAKER) (test 0.64 mg/dL 0.57-1.25 gnuo=999) GLUCOSE RANDOM (BEAKER) 78 mg/dL 70-105 (test vgwu=018) CALCIUM (BEAKER) (test 9.5 mg/dL 8.4-10.2 vegb=093) AST (SGOT) (BEAKER) (test 18 U/L 5-34 idno=319) ALT (SGPT) (BEAKER) (test 8 U/L 6-55 cazq=719) EGFR (BEAKER) (test 141 mL/min/1.73 sq ESTIMATED GFR IS NOT vzkk=3321) m ACCURATE CREATININE CLEARANCE IN PREDICTING GLOMERULAR FILTRATION RATE. ESTIMATED GFR IS NOT APPLICABLE FOR DIALYSIS PATIENTS. COMPREHENSIVE METABOLIC [id number] 06:08:00 Test Item Value Reference Range Comments TOTAL PROTEIN (BEAKER) 7.0 gm/dL 6.0-8.3 Specimen slightly (test ksbm=721) hemolyzed ALBUMIN (BEAKER) (test 3.4 g/dL 3.5-5.0 Specimen slightly saaa=1017) hemolyzed ALKALINE PHOSPHATASE 58 U/L 40-150 (BEAKER) (test cywv=800) BILIRUBIN TOTAL (BEAKER) 0.4 mg/dL 0.2-1.2 Specimen slightly (test pczf=420) hemolyzed SODIUM (BEAKER) (test 139 meq/L 136-145 cirl=711) POTASSIUM (BEAKER) (test 4.5 meq/L 3.5-5.1 Specimen slightly nulw=979) hemolyzed CHLORIDE (BEAKER) (test 103 meq/L 98-107 gouh=240) CO2 (BEAKER) (test 27 meq/L 22-29 phax=542) BLOOD UREA NITROGEN 2 mg/dL 7-21 (BEAKER) (test dozg=240) CREATININE (BEAKER) (test 0.55 mg/dL 0.57-1.25 Specimen slightly rlka=868) hemolyzed GLUCOSE RANDOM (BEAKER) 85 mg/dL 70-105 (test reua=918) CALCIUM (BEAKER) (test 9.3 mg/dL 8.4-10.2 jggg=090) AST (SGOT) (BEAKER) (test 18 U/L 5-34 Specimen slightly bqxh=304) hemolyzed ALT (SGPT) (BEAKER) (test 8 U/L 6-55 Specimen slightly oenf=702) hemolyzed EGFR (BEAKER) (test 168 mL/min/1.73 sq ESTIMATED GFR IS NOT jrtl=5779) m ACCURATE CREATININE CLEARANCE IN PREDICTING GLOMERULAR FILTRATION RATE. ESTIMATED GFR IS NOT APPLICABLE FOR DIALYSIS PATIENTS. CBC (HEMOGRAM ONLY)2017-05-17 05:20:00 Test Item Value Reference Range Comments WHITE BLOOD CELL COUNT (BEAKER) (test kclt=408) 6.4 K/ L 3.5-10.5 RED BLOOD CELL COUNT (BEAKER) (test xlmj=133) 3.84 M/ L 4.63-6.08 HEMOGLOBIN (BEAKER) (test xjux=927) 11.5 GM/DL 13.7-17.5 HEMATOCRIT (BEAKER) (test xllj=178) 35.2 % 40.1-51.0 MEAN CORPUSCULAR VOLUME (BEAKER) (test ktzl=428) 91.7 fL 79.0-92.2 MEAN CORPUSCULAR HEMOGLOBIN (BEAKER) (test 29.9 pg 25.7-32.2 vpnz=377) MEAN CORPUSCULAR HEMOGLOBIN CONC (BEAKER) (test 32.7 GM/DL 32.3-36.5 gyen=067) RED CELL DISTRIBUTION WIDTH (BEAKER) (test 14.1 % 11.6-14.4 oytw=255) PLATELET COUNT (BEAKER) (test lqyv=821) 434 K/CU MM 150-450 MEAN PLATELET VOLUME (BEAKER) (test bzky=607) 9.4 fL 9.4-12.4 NUCLEATED RED BLOOD CELLS (BEAKER) (test 0 /100 WBC 0-0 amvy=691) HEPATIC FUNCTION [id number] 11:22:00 Test Item Value Reference Range Comments TOTAL PROTEIN (BEAKER) (test kzgq=507) 6.9 gm/dL 6.0-8.3 ALBUMIN (BEAKER) (test eger=3101) 3.4 g/dL 3.5-5.0 BILIRUBIN TOTAL (BEAKER) (test pmug=726) 0.4 mg/dL 0.2-1.2 BILIRUBIN DIRECT (BEAKER) (test nzuc=181) 0.2 mg/dL 0.1-0.5 ALKALINE PHOSPHATASE (BEAKER) (test cabt=733) 65 U/L 40-150 AST (SGOT) (BEAKER) (test qowz=570) 14 U/L 5-34 ALT (SGPT) (BEAKER) (test hbns=619) 8 U/L 6-55 CBC W/PLT COUNT & AUTO [id number] 11:16:00 Test Item Value Reference Range Comments WHITE BLOOD CELL COUNT (BEAKER) (test kvhn=071) 7.0 K/ L 3.5-10.5 RED BLOOD CELL COUNT (BEAKER) (test evfr=035) 3.90 M/ L 4.63-6.08 HEMOGLOBIN (BEAKER) (test hina=711) 11.9 GM/DL 13.7-17.5 HEMATOCRIT (BEAKER) (test xksb=835) 35.7 % 40.1-51.0 MEAN CORPUSCULAR VOLUME (BEAKER) (test fiml=608) 91.5 fL 79.0-92.2 MEAN CORPUSCULAR HEMOGLOBIN (BEAKER) (test 30.5 pg 25.7-32.2 xuoy=817) MEAN CORPUSCULAR HEMOGLOBIN CONC (BEAKER) (test 33.3 GM/DL 32.3-36.5 fnxv=774) RED CELL DISTRIBUTION WIDTH (BEAKER) (test 14.0 % 11.6-14.4 gbos=177) PLATELET COUNT (BEAKER) (test hwiu=935) 452 K/CU MM 150-450 MEAN PLATELET VOLUME (BEAKER) (test vslq=211) 9.0 fL 9.4-12.4 NUCLEATED RED BLOOD CELLS (BEAKER) (test 0 /100 WBC 0-0 rvtt=450) NEUTROPHILS RELATIVE PERCENT (BEAKER) (test 59 % ftno=593) LYMPHOCYTES RELATIVE PERCENT (BEAKER) (test 21 % lsvv=352) MONOCYTES RELATIVE PERCENT (BEAKER) (test 8 % veqa=268) EOSINOPHILS RELATIVE PERCENT (BEAKER) (test 10 % ufzr=080) BASOPHILS RELATIVE PERCENT (BEAKER) (test 1 % rfoe=808) NEUTROPHILS ABSOLUTE COUNT (BEAKER) (test 4.12 K/ L 1.78-5.38 sznf=348) LYMPHOCYTES ABSOLUTE COUNT (BEAKER) (test 1.45 K/ L 1.32-3.57 myfa=254) MONOCYTES ABSOLUTE COUNT (BEAKER) (test 0.58 K/ L 0.30-0.82 zryl=734) EOSINOPHILS ABSOLUTE COUNT (BEAKER) (test 0.70 K/ L 0.04-0.54 nqel=381) BASOPHILS ABSOLUTE COUNT (BEAKER) (test 0.10 K/ L 0.01-0.08 owpg=686) IMMATURE GRANULOCYTES-RELATIVE PERCENT (BEAKER) 0 % 0-1 (test bymo=7247) BASIC METABOLIC [id number] 06:43:00 Test Item Value Reference Range Comments SODIUM (BEAKER) (test 138 meq/L 136-145 wqlj=261) POTASSIUM (BEAKER) (test 3.5 meq/L 3.5-5.1 ffaz=126) CHLORIDE (BEAKER) (test 100 meq/L 98-107 uppx=917) CO2 (BEAKER) (test 27 meq/L 22-29 tahp=317) BLOOD UREA NITROGEN 2 mg/dL 7-21 (BEAKER) (test tumj=524) CREATININE (BEAKER) (test 0.53 mg/dL 0.57-1.25 ofww=270) GLUCOSE RANDOM (BEAKER) 82 mg/dL 70-105 (test qees=446) CALCIUM (BEAKER) (test 9.0 mg/dL 8.4-10.2 ltpi=430) EGFR (BEAKER) (test 175 mL/min/1.73 sq m ESTIMATED GFR IS NOT zffo=7915) ACCURATE CREATININE CLEARANCE IN PREDICTING GLOMERULAR FILTRATION RATE. ESTIMATED GFR IS NOT APPLICABLE FOR DIALYSIS PATIENTS. BASIC METABOLIC [id number] 05:14:00 Test Item Value Reference Range Comments SODIUM (BEAKER) (test 132 meq/L 136-145 rutt=529) POTASSIUM (BEAKER) (test 3.8 meq/L 3.5-5.1 jfdr=988) CHLORIDE (BEAKER) (test 101 meq/L 98-107 lein=228) CO2 (BEAKER) (test 18 meq/L 22-29 jcfc=257) BLOOD UREA NITROGEN 4 mg/dL 7-21 (BEAKER) (test yvde=733) CREATININE (BEAKER) (test 0.52 mg/dL 0.57-1.25 tskp=685) GLUCOSE RANDOM (BEAKER) 58 mg/dL 70-105 (test jyll=588) CALCIUM (BEAKER) (test 8.7 mg/dL 8.4-10.2 qnzr=114) EGFR (BEAKER) (test 179 mL/min/1.73 sq m ESTIMATED GFR IS NOT dlmu=7144) ACCURATE CREATININE CLEARANCE IN PREDICTING GLOMERULAR FILTRATION RATE. ESTIMATED GFR IS NOT APPLICABLE FOR DIALYSIS PATIENTS. CBC (HEMOGRAM ONLY)2017-05-15 04:57:00 Test Item Value Reference Range Comments WHITE BLOOD CELL COUNT (BEAKER) (test tunw=961) 13.4 K/ L 3.5-10.5 RED BLOOD CELL COUNT (BEAKER) (test zemw=978) 3.81 M/ L 4.63-6.08 HEMOGLOBIN (BEAKER) (test nlpm=883) 11.4 GM/DL 13.7-17.5 HEMATOCRIT (BEAKER) (test tcjj=473) 35.1 % 40.1-51.0 MEAN CORPUSCULAR VOLUME (BEAKER) (test btvn=751) 92.1 fL 79.0-92.2 MEAN CORPUSCULAR HEMOGLOBIN (BEAKER) (test 29.9 pg 25.7-32.2 smrj=418) MEAN CORPUSCULAR HEMOGLOBIN CONC (BEAKER) (test 32.5 GM/DL 32.3-36.5 nlaa=572) RED CELL DISTRIBUTION WIDTH (BEAKER) (test 14.3 % 11.6-14.4 ndmy=219) PLATELET COUNT (BEAKER) (test mokz=548) 502 K/CU MM 150-450 MEAN PLATELET VOLUME (BEAKER) (test togr=250) 9.6 fL 9.4-12.4 NUCLEATED RED BLOOD CELLS (BEAKER) (test 0 /100 WBC 0-0 dapn=522) LIPID [id number] 05:00:00 Test Item Value Reference Range Comments TRIGLYCERIDES (BEAKER) (test hqpe=573) 71 mg/dL CHOLESTEROL (BEAKER) (test dhgk=998) 108 mg/dL HDL CHOLESTEROL (BEAKER) (test xbte=518) 22 mg/dL LDL CHOLESTEROL CALCULATED (BEAKER) (test 72 mg/dL ayqe=455) Triglyceride Reference Range: Low Risk <150 Borderline 150- 199 High Risk 200-499 Very High Risk >=500Cholesterol Reference Range: Low Risk <200 Borderline 200-239 High Risk > 240HDL Cholesterol Reference Range: Low Risk >=60 High Risk <40LDL Cholesterol Reference Range: Optimal <100 Near Optimal 100-129 Borderline 130-159 High 160-189 Very High >=190BASIC METABOLIC [id number] 05:00:00 Test Item Value Reference Range Comments SODIUM (BEAKER) (test 133 meq/L 136-145 iitw=556) POTASSIUM (BEAKER) (test 4.1 meq/L 3.5-5.1 rzso=016) CHLORIDE (BEAKER) (test 105 meq/L 98-107 ejik=018) CO2 (BEAKER) (test 17 meq/L 22-29 imse=087) BLOOD UREA NITROGEN 8 mg/dL 7-21 (BEAKER) (test wsjw=117) CREATININE (BEAKER) (test 0.51 mg/dL 0.57-1.25 zgko=825) GLUCOSE RANDOM (BEAKER) 54 mg/dL 70-105 (test idlf=209) CALCIUM (BEAKER) (test 8.4 mg/dL 8.4-10.2 ppph=031) EGFR (BEAKER) (test 183 mL/min/1.73 sq m ESTIMATED GFR IS NOT lxgb=0381) ACCURATE CREATININE CLEARANCE IN PREDICTING GLOMERULAR FILTRATION RATE. ESTIMATED GFR IS NOT APPLICABLE FOR DIALYSIS PATIENTS. HEPATIC FUNCTION [id number] 05:00:00 Test Item Value Reference Range Comments TOTAL PROTEIN (BEAKER) (test whuv=488) 6.3 gm/dL 6.0-8.3 ALBUMIN (BEAKER) (test sxzv=7413) 3.2 g/dL 3.5-5.0 BILIRUBIN TOTAL (BEAKER) (test ydmf=331) 0.7 mg/dL 0.2-1.2 BILIRUBIN DIRECT (BEAKER) (test emfi=619) 0.3 mg/dL 0.1-0.5 ALKALINE PHOSPHATASE (BEAKER) (test xkts=937) 62 U/L 40-150 AST (SGOT) (BEAKER) (test jtru=433) 13 U/L 5-34 ALT (SGPT) (BEAKER) (test vhfw=104) 9 U/L 6-55 [id number] 05:00:00 Test Item Value Reference Range Comments LIPASE (BEAKER) (test iwic=639) 1007 U/L 8-78 CBC (HEMOGRAM ONLY)2017-05-14 04:39:00 Test Item Value Reference Range Comments WHITE BLOOD CELL COUNT (BEAKER) (test hgzg=276) 16.6 K/ L 3.5-10.5 RED BLOOD CELL COUNT (BEAKER) (test lcfh=222) 3.98 M/ L 4.63-6.08 HEMOGLOBIN (BEAKER) (test gysg=285) 12.0 GM/DL 13.7-17.5 HEMATOCRIT (BEAKER) (test gihw=176) 37.2 % 40.1-51.0 MEAN CORPUSCULAR VOLUME (BEAKER) (test mvwu=789) 93.5 fL 79.0-92.2 MEAN CORPUSCULAR HEMOGLOBIN (BEAKER) (test 30.2 pg 25.7-32.2 ahwv=395) MEAN CORPUSCULAR HEMOGLOBIN CONC (BEAKER) (test 32.3 GM/DL 32.3-36.5 zehc=511) RED CELL DISTRIBUTION WIDTH (BEAKER) (test 14.5 % 11.6-14.4 ggnw=657) PLATELET COUNT (BEAKER) (test otrw=032) 527 K/CU MM 150-450 MEAN PLATELET VOLUME (BEAKER) (test cdch=052) 9.5 fL 9.4-12.4 NUCLEATED RED BLOOD CELLS (BEAKER) (test 0 /100 WBC 0-0 ionw=514) MR, ABDOMEN, [id number] 12:25:00FINAL REPORT MRI of the abdomen, MRCP. [...] MDReport Verified Date/Time: 03/13/2017 12:25:41 Reading Location: [id number] Reading Room Electronically signed by: KIKO VEE M.D. on 12:25 [facility] [id number] 05:05:00 Test Item Value Reference Range Comments SODIUM (BEAKER) (test 139 meq/L 136-145 wxow=483) POTASSIUM (BEAKER) (test 3.7 meq/L 3.5-5.1 rkil=554) CHLORIDE (BEAKER) (test 108 meq/L 98-107 wbwv=597) CO2 (BEAKER) (test 22 meq/L 22-29 rueh=537) BLOOD UREA NITROGEN 4 mg/dL 7-21 (BEAKER) (test lcpr=760) CREATININE (BEAKER) (test 0.58 mg/dL 0.57-1.25 pwxp=426) GLUCOSE RANDOM (BEAKER) 95 mg/dL 70-105 (test ucxr=629) CALCIUM (BEAKER) (test 8.5 mg/dL 8.4-10.2 btyu=348) EGFR (BEAKER) (test 158 mL/min/1.73 sq m ESTIMATED GFR IS NOT xjou=5185) ACCURATE CREATININE CLEARANCE IN PREDICTING GLOMERULAR FILTRATION RATE. ESTIMATED GFR IS NOT APPLICABLE FOR DIALYSIS PATIENTS. CBC W/PLT COUNT & AUTO [id number] 04:49:00 Test Item Value Reference Range Comments WHITE BLOOD CELL COUNT (BEAKER) (test bejy=285) 6.3 K/ L 3.5-10.5 RED BLOOD CELL COUNT (BEAKER) (test yrpe=844) 4.32 M/ L 4.63-6.08 HEMOGLOBIN (BEAKER) (test kgrk=053) 13.7 GM/DL 13.7-17.5 HEMATOCRIT (BEAKER) (test nzsq=056) 40.3 % 40.1-51.0 MEAN CORPUSCULAR VOLUME (BEAKER) (test gjzm=893) 93.3 fL 79.0-92.2 MEAN CORPUSCULAR HEMOGLOBIN (BEAKER) (test 31.7 pg 25.7-32.2 qybe=903) MEAN CORPUSCULAR HEMOGLOBIN CONC (BEAKER) (test 34.0 GM/DL 32.3-36.5 ruue=610) RED CELL DISTRIBUTION WIDTH (BEAKER) (test 11.9 % 11.6-14.4 bjex=613) PLATELET COUNT (BEAKER) (test bkqw=714) 286 K/CU MM 150-450 MEAN PLATELET VOLUME (BEAKER) (test zdnu=622) 9.4 fL 9.4-12.4 NUCLEATED RED BLOOD CELLS (BEAKER) (test 0 /100 WBC 0-0 fefs=705) NEUTROPHILS RELATIVE PERCENT (BEAKER) (test 51 % axbl=832) LYMPHOCYTES RELATIVE PERCENT (BEAKER) (test 31 % wryr=554) MONOCYTES RELATIVE PERCENT (BEAKER) (test 11 % odhe=793) EOSINOPHILS RELATIVE PERCENT (BEAKER) (test 6 % dqor=846) BASOPHILS RELATIVE PERCENT (BEAKER) (test 1 % vrst=551) NEUTROPHILS ABSOLUTE COUNT (BEAKER) (test 3.21 K/ L 1.78-5.38 kjrw=562) LYMPHOCYTES ABSOLUTE COUNT (BEAKER) (test 1.91 K/ L 1.32-3.57 jqqm=816) MONOCYTES ABSOLUTE COUNT (BEAKER) (test 0.68 K/ L 0.30-0.82 avpz=078) EOSINOPHILS ABSOLUTE COUNT (BEAKER) (test 0.40 K/ L 0.04-0.54 lzqw=583) BASOPHILS ABSOLUTE COUNT (BEAKER) (test 0.04 K/ L 0.01-0.08 crln=989) IMMATURE GRANULOCYTES-RELATIVE PERCENT (BEAKER) 1 % 0-1 (test rlgs=9950) CBC W/PLT COUNT & AUTO [id number] 04:52:00 Test Item Value Reference Range Comments WHITE BLOOD CELL COUNT (BEAKER) (test xipd=954) 6.2 K/ L 3.5-10.5 RED BLOOD CELL COUNT (BEAKER) (test pvil=775) 4.31 M/ L 4.63-6.08 HEMOGLOBIN (BEAKER) (test vwyd=786) 13.7 GM/DL 13.7-17.5 HEMATOCRIT (BEAKER) (test usxq=629) 41.1 % 40.1-51.0 MEAN CORPUSCULAR VOLUME (BEAKER) (test tqqt=805) 95.4 fL 79.0-92.2 MEAN CORPUSCULAR HEMOGLOBIN (BEAKER) (test 31.8 pg 25.7-32.2 hzhs=387) MEAN CORPUSCULAR HEMOGLOBIN CONC (BEAKER) (test 33.3 GM/DL 32.3-36.5 lhpm=467) RED CELL DISTRIBUTION WIDTH (BEAKER) (test 12.1 % 11.6-14.4 tjht=896) PLATELET COUNT (BEAKER) (test hywf=523) 295 K/CU MM 150-450 MEAN PLATELET VOLUME (BEAKER) (test aecc=964) 9.5 fL 9.4-12.4 NUCLEATED RED BLOOD CELLS (BEAKER) (test 0 /100 WBC 0-0 vrss=099) NEUTROPHILS RELATIVE PERCENT (BEAKER) (test 51 % yrak=468) LYMPHOCYTES RELATIVE PERCENT (BEAKER) (test 31 % shad=443) MONOCYTES RELATIVE PERCENT (BEAKER) (test 11 % oifu=806) EOSINOPHILS RELATIVE PERCENT (BEAKER) (test 7 % cril=644) BASOPHILS RELATIVE PERCENT (BEAKER) (test 1 % qjrr=648) NEUTROPHILS ABSOLUTE COUNT (BEAKER) (test 3.17 K/ L 1.78-5.38 qnan=391) LYMPHOCYTES ABSOLUTE COUNT (BEAKER) (test 1.89 K/ L 1.32-3.57 bacc=507) MONOCYTES ABSOLUTE COUNT (BEAKER) (test 0.65 K/ L 0.30-0.82 cfyp=174) EOSINOPHILS ABSOLUTE COUNT (BEAKER) (test 0.41 K/ L 0.04-0.54 kwds=250) BASOPHILS ABSOLUTE COUNT (BEAKER) (test 0.05 K/ L 0.01-0.08 gscf=770) IMMATURE GRANULOCYTES-RELATIVE PERCENT (BEAKER) 1 % 0-1 (test ohcr=2961) COMPREHENSIVE METABOLIC [id number] 11:20:00 Test Item Value Reference Range Comments TOTAL PROTEIN (BEAKER) 7.2 gm/dL 6.0-8.3 (test gywh=061) ALBUMIN (BEAKER) (test 3.7 g/dL 3.5-5.0 trpr=9325) ALKALINE PHOSPHATASE 73 U/L 40-150 (BEAKER) (test akvd=600) BILIRUBIN TOTAL (BEAKER) 0.6 mg/dL 0.2-1.2 (test rgqx=003) SODIUM (BEAKER) (test 135 meq/L 136-145 gkmy=095) POTASSIUM (BEAKER) (test 5.0 meq/L 3.5-5.1 jgxq=728) CHLORIDE (BEAKER) (test 109 meq/L 98-107 otsl=400) CO2 (BEAKER) (test 14 meq/L 22-29 flke=000) BLOOD UREA NITROGEN 6 mg/dL 7-21 (BEAKER) (test twsi=550) CREATININE (BEAKER) (test 0.62 mg/dL 0.57-1.25 rfad=111) GLUCOSE RANDOM (BEAKER) 45 mg/dL 70-105 (test pjmo=812) CALCIUM (BEAKER) (test 8.6 mg/dL 8.4-10.2 zjhf=000) AST (SGOT) (BEAKER) (test 17 U/L 5-34 nonl=299) ALT (SGPT) (BEAKER) (test 14 U/L 6-55 gvmr=126) EGFR (BEAKER) (test 146 mL/min/1.73 sq ESTIMATED GFR IS NOT wrew=7311) m ACCURATE CREATININE CLEARANCE IN PREDICTING GLOMERULAR FILTRATION RATE. ESTIMATED GFR IS NOT APPLICABLE FOR DIALYSIS PATIENTS. CBC W/PLT COUNT & AUTO [id number] 09:54:00 Test Item Value Reference Range Comments WHITE BLOOD CELL COUNT (BEAKER) (test sktk=971) 7.4 K/ L 3.5-10.5 RED BLOOD CELL COUNT (BEAKER) (test sqvm=308) 4.32 M/ L 4.63-6.08 HEMOGLOBIN (BEAKER) (test uvxx=823) 13.6 GM/DL 13.7-17.5 HEMATOCRIT (BEAKER) (test wmvw=543) 41.8 % 40.1-51.0 MEAN CORPUSCULAR VOLUME (BEAKER) (test qhvm=819) 96.8 fL 79.0-92.2 MEAN CORPUSCULAR HEMOGLOBIN (BEAKER) (test 31.5 pg 25.7-32.2 narv=221) MEAN CORPUSCULAR HEMOGLOBIN CONC (BEAKER) (test 32.5 GM/DL 32.3-36.5 wnoh=486) RED CELL DISTRIBUTION WIDTH (BEAKER) (test 12.1 % 11.6-14.4 iwwz=599) PLATELET COUNT (BEAKER) (test rguy=147) 277 K/CU MM 150-450 MEAN PLATELET VOLUME (BEAKER) (test xofb=941) 9.7 fL 9.4-12.4 NUCLEATED RED BLOOD CELLS (BEAKER) (test 0 /100 WBC 0-0 ivll=452) NEUTROPHILS RELATIVE PERCENT (BEAKER) (test 57 % wxml=380) LYMPHOCYTES RELATIVE PERCENT (BEAKER) (test 29 % byrs=596) MONOCYTES RELATIVE PERCENT (BEAKER) (test 8 % sdcw=298) EOSINOPHILS RELATIVE PERCENT (BEAKER) (test 5 % gjre=280) BASOPHILS RELATIVE PERCENT (BEAKER) (test 1 % odhk=014) NEUTROPHILS ABSOLUTE COUNT (BEAKER) (test 4.23 K/ L 1.78-5.38 wadg=473) LYMPHOCYTES ABSOLUTE COUNT (BEAKER) (test 2.10 K/ L 1.32-3.57 zrhx=037) MONOCYTES ABSOLUTE COUNT (BEAKER) (test 0.57 K/ L 0.30-0.82 wnwx=683) EOSINOPHILS ABSOLUTE COUNT (BEAKER) (test 0.38 K/ L 0.04-0.54 aigv=298) BASOPHILS ABSOLUTE COUNT (BEAKER) (test 0.05 K/ L 0.01-0.08 zntd=933) IMMATURE GRANULOCYTES-RELATIVE PERCENT (BEAKER) 1 % 0-1 (test ulrs=5464) (MANUAL DIFFERENTIAL)2017-03-11 09:54:00 Test Item Value Reference Range Comments TOTAL COUNTED (BEAKER) (test anra=4236) WBC MORPHOLOGY (BEAKER) (test lvof=802) Normal PLT MORPHOLOGY (BEAKER) (test dicw=445) Normal RBC MORPHOLOGY (BEAKER) (test yvid=665) Normal CBC W/PLT COUNT & AUTO [id number] 09:09:00 Test Item Value Reference Range Comments WHITE BLOOD CELL COUNT (BEAKER) (test vucj=302) 8.9 K/ L 3.5-10.5 RED BLOOD CELL COUNT (BEAKER) (test qauj=128) 4.25 M/ L 4.63-6.08 HEMOGLOBIN (BEAKER) (test arom=383) 13.6 GM/DL 13.7-17.5 HEMATOCRIT (BEAKER) (test nzmw=073) 40.7 % 40.1-51.0 MEAN CORPUSCULAR VOLUME (BEAKER) (test iobp=458) 95.8 fL 79.0-92.2 MEAN CORPUSCULAR HEMOGLOBIN (BEAKER) (test 32.0 pg 25.7-32.2 bael=104) MEAN CORPUSCULAR HEMOGLOBIN CONC (BEAKER) (test 33.4 GM/DL 32.3-36.5 gmlf=416) RED CELL DISTRIBUTION WIDTH (BEAKER) (test 12.1 % 11.6-14.4 grig=439) PLATELET COUNT (BEAKER) (test zwqj=611) 274 K/CU MM 150-450 MEAN PLATELET VOLUME (BEAKER) (test kjrt=581) 9.8 fL 9.4-12.4 NUCLEATED RED BLOOD CELLS (BEAKER) (test 0 /100 WBC 0-0 cjds=732) NEUTROPHILS RELATIVE PERCENT (BEAKER) (test 62 % jncy=812) LYMPHOCYTES RELATIVE PERCENT (BEAKER) (test 24 % spxu=998) MONOCYTES RELATIVE PERCENT (BEAKER) (test 7 % zdmm=348) EOSINOPHILS RELATIVE PERCENT (BEAKER) (test 5 % czxz=003) BASOPHILS RELATIVE PERCENT (BEAKER) (test 1 % vrxr=282) NEUTROPHILS ABSOLUTE COUNT (BEAKER) (test 5.55 K/ L 1.78-5.38 bmsn=142) LYMPHOCYTES ABSOLUTE COUNT (BEAKER) (test 2.14 K/ L 1.32-3.57 wshv=948) MONOCYTES ABSOLUTE COUNT (BEAKER) (test 0.64 K/ L 0.30-0.82 shbk=366) EOSINOPHILS ABSOLUTE COUNT (BEAKER) (test 0.48 K/ L 0.04-0.54 mhnw=716) BASOPHILS ABSOLUTE COUNT (BEAKER) (test 0.07 K/ L 0.01-0.08 ohfa=544) IMMATURE GRANULOCYTES-RELATIVE PERCENT (BEAKER) 0 % 0-1 (test drfq=7838) (MANUAL DIFFERENTIAL)2017-03-10 09:09:00 Test Item Value Reference Range Comments TOTAL COUNTED (BEAKER) (test jzed=7388) WBC MORPHOLOGY (BEAKER) (test qsuz=552) Normal PLT MORPHOLOGY (BEAKER) (test qjrr=749) Normal RBC MORPHOLOGY (BEAKER) (test rrwg=554) Normal COMPREHENSIVE METABOLIC [id number] 07:30:00 Test Item Value Reference Range Comments TOTAL PROTEIN (BEAKER) 6.8 gm/dL 6.0-8.3 (test ekzg=206) ALBUMIN (BEAKER) (test 3.6 g/dL 3.5-5.0 hikd=9924) ALKALINE PHOSPHATASE 77 U/L 40-150 (BEAKER) (test luwc=244) BILIRUBIN TOTAL (BEAKER) 0.6 mg/dL 0.2-1.2 (test xuav=494) SODIUM (BEAKER) (test 136 meq/L 136-145 xbxa=624) POTASSIUM (BEAKER) (test 4.3 meq/L 3.5-5.1 wtsh=497) CHLORIDE (BEAKER) (test 105 meq/L 98-107 tydm=912) CO2 (BEAKER) (test 19 meq/L 22-29 jfpc=823) BLOOD UREA NITROGEN 6 mg/dL 7-21 (BEAKER) (test uivq=526) CREATININE (BEAKER) (test 0.57 mg/dL 0.57-1.25 nwgr=407) GLUCOSE RANDOM (BEAKER) 52 mg/dL 70-105 (test dcoq=530) CALCIUM (BEAKER) (test 8.2 mg/dL 8.4-10.2 vgay=692) AST (SGOT) (BEAKER) (test 17 U/L 5-34 wpda=711) ALT (SGPT) (BEAKER) (test 14 U/L 6-55 myuv=996) EGFR (BEAKER) (test 161 mL/min/1.73 sq ESTIMATED GFR IS NOT syoa=5761) m ACCURATE CREATININE CLEARANCE IN PREDICTING GLOMERULAR FILTRATION RATE. ESTIMATED GFR IS NOT APPLICABLE FOR DIALYSIS PATIENTS. CBC W/PLT COUNT & AUTO [id number] 10:49:00 Test Item Value Reference Range Comments WHITE BLOOD CELL COUNT (BEAKER) (test rffd=396) 6.9 K/ L 3.5-10.5 RED BLOOD CELL COUNT (BEAKER) (test crhf=364) 3.83 M/ L 4.63-6.08 HEMOGLOBIN (BEAKER) (test mqra=131) 12.5 GM/DL 13.7-17.5 HEMATOCRIT (BEAKER) (test avlz=767) 36.7 % 40.1-51.0 MEAN CORPUSCULAR VOLUME (BEAKER) (test eint=091) 95.8 fL 79.0-92.2 MEAN CORPUSCULAR HEMOGLOBIN (BEAKER) (test 32.6 pg 25.7-32.2 ltzf=334) MEAN CORPUSCULAR HEMOGLOBIN CONC (BEAKER) (test 34.1 GM/DL 32.3-36.5 zveq=505) RED CELL DISTRIBUTION WIDTH (BEAKER) (test 12.4 % 11.6-14.4 dxis=547) PLATELET COUNT (BEAKER) (test ikpi=777) 267 K/CU MM 150-450 MEAN PLATELET VOLUME (BEAKER) (test wicv=983) 9.7 fL 9.4-12.4 NUCLEATED RED BLOOD CELLS (BEAKER) (test 0 /100 WBC 0-0 zzjq=958) NEUTROPHILS RELATIVE PERCENT (BEAKER) (test 60 % ztup=036) LYMPHOCYTES RELATIVE PERCENT (BEAKER) (test 26 % pbjy=135) MONOCYTES RELATIVE PERCENT (BEAKER) (test 7 % ezeb=714) EOSINOPHILS RELATIVE PERCENT (BEAKER) (test 6 % anwr=600) BASOPHILS RELATIVE PERCENT (BEAKER) (test 1 % hreh=097) NEUTROPHILS ABSOLUTE COUNT (BEAKER) (test 4.15 K/ L 1.78-5.38 jjki=627) LYMPHOCYTES ABSOLUTE COUNT (BEAKER) (test 1.82 K/ L 1.32-3.57 orsm=786) MONOCYTES ABSOLUTE COUNT (BEAKER) (test 0.47 K/ L 0.30-0.82 ayan=058) EOSINOPHILS ABSOLUTE COUNT (BEAKER) (test 0.38 K/ L 0.04-0.54 zkcg=346) BASOPHILS ABSOLUTE COUNT (BEAKER) (test 0.04 K/ L 0.01-0.08 jklp=623) COMPREHENSIVE METABOLIC [id number] 10:45:00 Test Item Value Reference Range Comments TOTAL PROTEIN (BEAKER) 6.2 gm/dL 6.0-8.3 (test hosn=575) ALBUMIN (BEAKER) (test 3.3 g/dL 3.5-5.0 kkkr=4397) ALKALINE PHOSPHATASE 70 U/L 40-150 (BEAKER) (test phdh=355) BILIRUBIN TOTAL (BEAKER) 0.4 mg/dL 0.2-1.2 (test sgat=450) SODIUM (BEAKER) (test 138 meq/L 136-145 vzql=734) POTASSIUM (BEAKER) (test 3.5 meq/L 3.5-5.1 jyda=368) CHLORIDE (BEAKER) (test 109 meq/L 98-107 jbmm=202) CO2 (BEAKER) (test 23 meq/L 22-29 zqmr=203) BLOOD UREA NITROGEN 5 mg/dL 7-21 (BEAKER) (test jfim=611) CREATININE (BEAKER) (test 0.54 mg/dL 0.57-1.25 xsra=492) GLUCOSE RANDOM (BEAKER) 77 mg/dL 70-105 (test ulaf=009) CALCIUM (BEAKER) (test 7.6 mg/dL 8.4-10.2 gffy=595) AST (SGOT) (BEAKER) (test 18 U/L 5-34 edpf=864) ALT (SGPT) (BEAKER) (test 15 U/L 6-55 vidi=567) EGFR (BEAKER) (test 171 mL/min/1.73 sq ESTIMATED GFR IS NOT cyls=9768) m ACCURATE CREATININE CLEARANCE IN PREDICTING GLOMERULAR FILTRATION RATE. ESTIMATED GFR IS NOT APPLICABLE FOR DIALYSIS PATIENTS. [id number] 10:29:00 Test Item Value Reference Range Comments TRIGLYCERIDES (BEAKER) (test vwlh=985) 58 mg/dL TRIGLYCERIDE REFERENCE RANGELow Risk <150Borderline Risk 150-199High Risk 200-499Very High Risk>=[id number] 10:29:00 Test Item Value Reference Range Comments MAGNESIUM (BEAKER) (test pxkh=074) 1.4 mg/dL 1.6-2.6 [id number] 10:29:00 Test Item Value Reference Range Comments LIPASE (BEAKER) (test ludh=526) 536 U/L 8-78 PROTHROMBIN [id number] 10:22:00 Test Item Value Reference Range Comments PROTIME (BEAKER) (test htgo=311) 14.3 seconds 11.7-14.7 INR (BEAKER) (test xzyy=748) 1.1 <=5.9 RECOMMENDED COUMADIN/WARFARIN INR THERAPY RANGESSTANDARD DOSE: 2.0 - 3.0 Includes: PROPHYLAXIS forvenous thrombosis, systemic embolization; TREATMENT for venous thrombosis and/or pulmonary embolus.HIGH RISK: Target INR is 2.5-3.5 for patients with mechanical heart valves.
--- OUTSIDE RECORDS SUMMARY | 2017-12-31 13:50 | XMS REPORT ---
[...] End Status Dosage System Date Date Apixaban [facility] [address]-51 2.5 MG Orally Active not defined Tramadol HCl [facility] 69352562974 50 MG Orally Active 1 tablet every 6 hrs as needed Results No Known Results Summary Purpose eClinicalWorks Submission
[2017-12-31] MEDS ORDERED: ONDANSETRON 4 MG/2 ML VIAL ONE (14:07)
[2017-12-31] MEDS ORDERED: NA CHLORIDE 0.9% 1,000 ML ONE (14:07)
[2017-12-31] MEDS ORDERED: MORPHINE 4 MG/ML SYR ONE ×2 (14:07→15:18)
[2017-12-31 14:28] LABS: Absolute Lymphocytes (CBC) 0.9 K/uL (0.7-4.9); Absolute Monocytes 0.7 K/uL (0.1-1.3); Absolute Neutrophil 7.7 K/uL (1.8-8.0); Basophils % 0.1 % (0-1.3); Lymphocytes % 9.6 % (15.3-44.8); MCH 32.5 pg (27.0-35.0); MCV 94.8 fL (80-100); MPV 8.5 fL (7.6-11.3); Monocytes % 7.4 % (3.3-12.3); RBC Red Blood Cell Count 4.22 M/uL (4.33-5.43)
[2017-12-31 15:05] LABS: ALT/SGPT 55 U/L (12-78); AST/SGOT 26 U/L (15-37); Albumin 4.1 g/dL (3.4-5.0); Alkaline Phosphatase 82 U/L (45-117); BUN Blood Urea Nitrogen 8 mg/dL (7-18); Bicarbonate 22 mmol/L (21-32); Bilirubin Direct 0.1 mg/dL (0-0.2); Bilirubin Total 0.3 mg/dL (0.2-1.0); Glucose Level 90 mg/dL (74-106); Lipase 194 U/L (73-393); Potassium 3.5 mmol/L (3.5-5.1); Protein, Total 8.1 g/dL (6.4-8.2); Sodium Level 143 mmol/L (136-145)
[2017-12-31] MEDS ORDERED: MAGNE/ALUM HYDROXD 30 ML UCUP ONE (15:23)
[2017-12-31] MEDS ORDERED: PANTOPRAZOLE 40 MG INJ ONE (15:23)
[2017-12-31] MEDS ORDERED: LIDOCAINE VISCOUS 2% SOLN 15 ML UDC ONE (15:23)
--- NOTE | 2017-12-31 15:47 | ER ---
Nurse's Notes [facility] Name: Ankit Rosales Age: 37 yrs Sex: Male : 1980 Arrival Date: 12/31/2017 Time: 13:48 Bed 24 Private MD: Diagnosis: Gastritis, unspecified;Alcohol abuse Presentation: 12/31 13:49 Presenting complaint: EMS states: abdominal pain, vomiting seen here yesterday for tl3 same, unable to fill RX until check comes in tomorrow, has been drinking this am. Transition of care: patient was not received from another setting of care. Onset of symptoms was December 31, 2017. Risk Assessment: Do you want to hurt yourself or someone else? Patient reports no desire to harm self or others. Initial Sepsis Screen: Does the patient meet any 2 criteria? No. Patient's initial sepsis screen is negative. Does the patient have a suspected source of infection? No. Patient's initial sepsis screen is negative. Care prior to arrival: None. 13:49 Method Of Arrival: EMS: [facility] tl3 13:49 Acuity: KRAIG 3 tl3 Triage Assessment: 13:52 General: Appears distressed, uncomfortable, slender, well groomed, well developed, well tl3 nourished, Behavior is calm, cooperative, appropriate for age, Smells of alcohol. Pain: Complains of pain in abdomen. EENT: No signs and/or symptoms were reported regarding the EENT system. Neuro: Level of Consciousness is awake, alert, obeys commands, Oriented to person, place, time, situation, Appropriate for age. Cardiovascular: Patient's skin is warm and dry. Respiratory: Airway is patent Respiratory effort is even, unlabored, Respiratory pattern is regular, symmetrical. GI: Abdomen is flat. : No signs and/or symptoms were reported regarding the genitourinary system. Derm: No signs and/or symptoms reported regarding the dermatologic system. Musculoskeletal: No signs and/or symptoms reported regarding the musculoskeletal system. Historical: - Allergies: 13:52 NKDA; tl3 - PMHx: 13:52 Cirrhosis; GALLSTONES; left leg DVT; Pancreatitis; tl3 - Immunization history:: Adult Immunizations up to date. - Social history:: Smoking status: unknown. - Ebola Screening: : No symptoms or risks identified at this time. Screenin:57 Abuse screen: Denies threats or abuse. Nutritional screening: pt is thin with a tl3 drinking problem. Tuberculosis screening: No symptoms or risk factors identified. Fall Risk None identified. Assessment: 13:57 Reassessment: No changes from previously documented assessment. tl3 14:28 Reassessment: No changes from previously documented assessment. Patient and/or family tl3 updated on plan of care and expected duration. Pain level reassessed. Patient is alert, oriented x 3, equal unlabored respirations, skin warm/dry/pink. pt resting quietly. 16:06 Reassessment: No changes from previously documented assessment. Patient and/or family tl3 updated on plan of care and expected duration. Pain level reassessed. Patient is alert, oriented x 3, equal unlabored respirations, skin warm/dry/pink. spoke with pt about resources to help with drinking cessation, [place]. Suggested getting plugged in to a jainism or AA for assisstance. 16:10 GI: Bowel sounds present X 4 quads. Abdomen is tender to palpation in left upper tl3 quadrant. Vital Signs: 13:52 BP 141 / 98; Pulse 113; Resp 18; Pulse Ox 97% on R/A; tl3 14:28 BP 132 / 97; Pulse 102; Resp 18; Pulse Ox 100% ; Pain 7/10; tl3 16:06 BP 127 / 98; Pulse 95; Resp 18; Pulse Ox 99% on R/A; tl3 ED Course: 13:48 Patient arrived in ED. tl3 13:48 An Alcantar, MIRYAM is Primary Nurse. tl3 13:51 Triage completed. tl3 13:52 Arm band placed on left wrist. tl3 13:53 Rachid Rojas PA is PHCP. jr8 13:53 Alexandru Chan MD is Attending Physician. jr8 13:54 Inserted saline lock: 18 gauge in right forearm, using aseptic technique. Blood mb4 collected. 13:55 Patient has correct armband on for positive identification. Bed in low position. Call mb4 light in reach. Side rails up X2. Warm blanket given. 13:55 Pulse ox on. NIBP on. mb4 13:56 Initial lab(s) drawn, by me, sent to lab. mb4 13:57 No provider procedures requiring assistance completed. tl3 15:46 Alex Hill MD is Referral Physician. jr8 16:06 IV discontinued, intact, bleeding controlled, No redness/swelling at site. Pressure tl3 dressing applied. Administered Medications: 14:06 Drug: Zofran 4 mg Route: IVP; Infused Over: 2 mins; Site: right antecubital; tl3 14:31 Follow up: Response: Nausea is decreased tl3 14:07 Drug: NS 0.9% 1000 ml Route: IV; Rate: 1000 ml; Site: right antecubital; tl3 15:00 Follow up: IV Status: Completed infusion; IV Intake: 1000ml tl3 14:07 Drug: morphine 4 mg Route: IVP; Infused Over: 3 mins; Site: right antecubital; tl3 14:31 Follow up: Response: Pain is unchanged, physician notified tl3 15:14 Drug: morphine 4 mg Route: IVP; Site: right forearm; mg2 16:08 Follow up: Response: Pain is decreased tl3 15:30 Drug: ProTONIX 40 mg Route: IVP; Site: right forearm; mg2 16:08 Follow up: Response: No adverse reaction tl3 15:31 Drug: GI Cocktail without - (Maalox Suspension 30 ml, Lidocaine Liquid 2 % 15 mg2 ml) Route: PO; 16:08 Follow up: Response: No adverse reaction tl3 Intake: 15:00 IV: 1000ml; Total: 1000ml. tl3 Outcome: 15:47 Discharge ordered by . jr8 16:06 Discharged to home ambulatory. tl3 16:06 Condition: stable 16:06 Discharge instructions given to patient, Instructed on discharge instructions, follow up and referral plans. Demonstrated understanding of instructions, follow-up care. 16:10 Patient left the ED. tl3 Signatures: Rachid Rojas PA PA jr8 An Alcantar RN RN tl3 Pelon Barros RN RN mg2 Marie Barnes mb4
--- NOTE | 2017-12-31 15:47 | EDPHYS ---
Physician Documentation [facility] Name: Ankit Rosales Age: 37 yrs Sex: Male : 1980 Arrival Date: 12/31/2017 Time: 13:48 Bed 24 Private MD: ED Physician Alexandru Chan HPI: 12/31 14:13 This 37 yrs old Male presents to ER via EMS with complaints of Abdominal Pain.jr8 14:13 The patient presents with abdominal pain in the epigastric area. Onset: The jr8 symptoms/episode began/occurred acutely, today. The symptoms do not radiate. Associated signs and symptoms: Pertinent positives: nausea. The symptoms are described as sharp. Modifying factors: The symptoms are alleviated by nothing, the symptoms are aggravated by nothing. Severity of pain: At its worst the pain was moderate in the emergency department the pain is unchanged. The patient has not experienced similar symptoms in the past. The patient has not recently seen a physician. Stated that he had alcohol last night and today. Started to have epigastric pain that is not being relieved by anything. History of pancreatitis . Historical: - Allergies: 13:52 NKDA; tl3 - PMHx: 13:52 Cirrhosis; GALLSTONES; left leg DVT; Pancreatitis; tl3 - Immunization history:: Adult Immunizations up to date. - Social history:: Smoking status: unknown. - Ebola Screening: : No symptoms or risks identified at this time. ROS: 14:13 Eyes: Negative for injury, pain, redness, and discharge, ENT: Negative for injury, jr8 pain, and discharge, Neck: Negative for injury, pain, and swelling, Cardiovascular: Negative for chest pain, palpitations, and edema, Respiratory: Negative for shortness of breath, cough, wheezing, and pleuritic chest pain, Back: Negative for injury and pain, MS/Extremity: Negative for injury and deformity, Skin: Negative for injury, rash, and discoloration, Neuro: Negative for headache, weakness, numbness, tingling, and seizure. 14:13 Abdomen/GI: Positive for abdominal pain, nausea, Negative for vomiting, diarrhea, constipation, abdominal cramps, abdominal distension, anorexia, dysphagia, hematemesis, black/tarry stool, rectal pain, rectal bleeding, bowel incontinence, flatulence. Exam: 14:13 Eyes: Pupils equal round and reactive to light, extra-ocular motions intact. Lids and jr8 lashes normal. Conjunctiva and sclera are non-icteric and not injected. Cornea within normal limits. Periorbital areas with no swelling, redness, or edema. ENT: Nares patent. No nasal discharge, no septal abnormalities noted. Tympanic membranes are normal and external auditory canals are clear. Oropharynx with no redness, swelling, or masses, exudates, or evidence of obstruction, uvula midline. Mucous membranes moist. Neck: Trachea midline, no thyromegaly or masses palpated, and no cervical lymphadenopathy. Supple, full range of motion without nuchal rigidity, or vertebral point tenderness. No Meningismus. Cardiovascular: Regular rate and rhythm with a normal S1 and S2. No gallops, murmurs, or rubs. Normal PMI, no JVD. No pulse deficits. Respiratory: Lungs have equal breath sounds bilaterally, clear to auscultation and percussion. No rales, rhonchi or wheezes noted. No increased work of breathing, no retractions or nasal flaring. Back: No spinal tenderness. No costovertebral tenderness. Full range of motion. Skin: Warm, dry with normal turgor. Normal color with no rashes, no lesions, and no evidence of cellulitis. MS/ Extremity: Pulses equal, no cyanosis. Neurovascular intact. Full, normal range of motion. Neuro: Awake and alert, GCS 15, oriented to person, place, time, and situation. Cranial nerves II-XII grossly intact. Motor strength 5/5 in all extremities. Sensory grossly intact. Cerebellar exam normal. Normal gait. 14:13 Abdomen/GI: Inspection: abdomen appears normal, Bowel sounds: active, all quadrants, Palpation: soft, in all quadrants, moderate abdominal tenderness, in the epigastric area, mass, is not appreciated, rebound tenderness, is not appreciated, voluntary guarding, is not appreciated, involuntary guarding, is not appreciated, no appreciated organomegaly, Indicators: McBurney's point is not tender, Romero's sign is negative, Rovsing's sign is negative, Liver: no appreciated palpable abnormalities, tenderness. Vital Signs: 13:52 BP 141 / 98; Pulse 113; Resp 18; Pulse Ox 97% on R/A; tl3 14:28 BP 132 / 97; Pulse 102; Resp 18; Pulse Ox 100% ; Pain 7/10; tl3 16:06 BP 127 / 98; Pulse 95; Resp 18; Pulse Ox 99% on R/A; tl3 MDM: 13:53 Patient medically screened. jr8 15:44 Data reviewed: vital signs, nurses notes, lab test result(s), and as a result, I will jr8 discharge patient. Data interpreted: Pulse oximetry: on room air is 100 %. Interpretation: normal. Counseling: I had a detailed discussion with the patient and/or guardian regarding: the historical points, exam findings, and any diagnostic results supporting the discharge/admit diagnosis, lab results, the need for outpatient follow up, a physician allergist immunologist, to return to the emergency department if symptoms worsen or persist or if there are any questions or concerns that arise at home. Response to treatment: the patient's symptoms have markedly improved after treatment. 12/31 13:54 Order name: Basic Metabolic Panel; Complete Time: 15:11 jr8 12/31 13:54 Order name: CBC with Diff; Complete Time: 14:40 8 12/31 13:54 Order name: Creatinine for Radiology; Complete Time: 14:59 8 12/31 13:54 Order name: Hepatic Function; Complete Time: 15:11 jr8 12/31 13:54 Order name: Lipase; Complete Time: 15:11 8 12/31 13:57 Order name: ETOH Level; Complete Time: 15:02 8 12/31 13:54 Order name: IV Saline Lock; Complete Time: 14:08 jr8 12/31 13:54 Order name: Labs collected and sent; Complete Time: 14:08 jr8 Administered Medications: 14:06 Drug: Zofran 4 mg Route: IVP; Infused Over: 2 mins; Site: right antecubital; tl3 14:31 Follow up: Response: Nausea is decreased tl3 14:07 Drug: NS 0.9% 1000 ml Route: IV; Rate: 1000 ml; Site: right antecubital; tl3 15:00 Follow up: IV Status: Completed infusion; IV Intake: 1000ml tl3 14:07 Drug: morphine 4 mg Route: IVP; Infused Over: 3 mins; Site: right antecubital; tl3 14:31 Follow up: Response: Pain is unchanged, physician notified tl3 15:14 Drug: morphine 4 mg Route: IVP; Site: right forearm; mg2 16:08 Follow up: Response: Pain is decreased tl3 15:30 Drug: ProTONIX 40 mg Route: IVP; Site: right forearm; mg2 16:08 Follow up: Response: No adverse reaction tl3 15:31 Drug: GI Cocktail without - (Maalox Suspension 30 ml, Lidocaine Liquid 2 % 15 mg2 ml) Route: PO; 16:08 Follow up: Response: No adverse reaction tl3 Disposition: 01/01 07:10 Co-signature as Attending Physician, Alexandru Chan MD I agree with the assessment and [facility] plan of care. Disposition: 12/31/17 15:47 Discharged to Home. Impression: Gastritis, unspecified, Alcohol abuse. - Condition is Stable. - Discharge Instructions: Alcohol Intoxication, Gastritis, Adult. - Medication Reconciliation Form, Thank You Letter, Antibiotic Education, Prescription Opioid Use form. - Follow up: Alex Hill MD; When: 5 - 6 days; Reason: Recheck today's complaints, Continuance of care, Re-evaluation by your physician. - Problem is new. - Symptoms have improved. Signatures: Dispatcher [employer] EDIN Alexandru Chan MD MD cha Roszak, Josh, PA PA jr8 An Alcantar RN RN tl3 Pelon Barros RN RN mg2 Corrections: (The following items were deleted from the chart) 12/31 16:10 15:47 12/31/2017 15:47 Discharged to Home. Impression: Gastritis, unspecified; Alcohol tl3 abuse. Condition is Stable. Forms are Medication Reconciliation Form, Thank You Letter, Antibiotic Education, Prescription Opioid Use. Follow up: Alex Hill; When: 5 - 6 days; Reason: Recheck today's complaints, Continuance of care, Re-evaluation by your physician. Problem is new. Symptoms have improved. jr8
[2017-12-31 16:17] VITALS: BP 127/98; O2SAT 99
== END 2017-12-31 16:10 | disposition home or self-care (01) ==
LOC: ER 13:45
DX: K29.70 Gastritis, unspecified, without bleeding (principal); F10.10 Alcohol abuse, uncomplicated
CPT/HCPCS: 36415; 80048; 80076; 80320; 83690; 85025; 99284; C9113; J2405; J7030

== ENCOUNTER 2018-03-21 11:12 | Emergency (ER) | payer SELFPAY ==
--- OUTSIDE RECORDS SUMMARY | 2018-03-21 11:15 | XMS REPORT | Clinical Summary ---
:1980 Author Organization [facility] Address [address] [place] [address] Care Team Providers Name Role Phone Unavailable Primary Care Provider Unavailable Allergies No Known Allergies Medications Medication Sig Dispensed Refills Start Date End Date Status apixaban (ELIQUIS) 5 Take 2.5 mg 0 09/19/2017 Discontinued mg Tab by mouth 2 tabletIndications: (two) times deep venous daily. thrombosis folic acid (FOLVITE) Take 1 tablet 30 tablet 0 03/15/2017 09/14/2017 Discontinued 1 MG tablet (1 mg total) by mouth daily. nicotine (NICODERM Place 1 patch 28 patch 0 03/15/2017 04/14/2017 CQ) 21 mg/24 hr onto the skin patch daily for 30 days. thiamine 100 MG Take 1 tablet 30 tablet 0 03/15/2017 03/15/2018 tablet (100 mg total) by mouth daily. HYDROcodone-acetamin Take 1 tablet 0 09/09/2017 Discontinued ophen (NORCO 10-325) by mouth [...] 4 tablets apixaban (ELIQUIS) Take 2.5 mg 0 09/19/2017 Discontinued 2.5 mg Tab tablet by [...] Problems Problem Noted Date Resolved Date Thrombocytosis 05/13/2017 09/01/2017 Abdominal pain 03/09/2017 09/01/2017 Alcohol abuse 03/09/2017 09/17/2017 Mass of pancreas 03/09/2017 09/01/2017 Hypokalemia 03/09/2017 09/01/2017 Encounters Date Type Specialty Care Team Description 09/14/2017 [facility] Zaida Martinez MD Alcohol abuse (Primary Dx); - Encounter Medicine Yahaira, Cystic mass of pancreas; 09/19/2017 Dario Pancreatic pseudocyst/cyst; MD Tavares Hemorrhagic pancreatitis Vanda Norton MD Shiekh Sroujieh, Mona Ahmad, MD 09/08/2017 Anesthesia Event Gastroenterology Shikha Motley MD 09/08/2017 Surgery Gastroenterology Bessy Hernandez UPPER ENDOSCOPY MD Fredi 09/01/2017 Orders Only General Internal Medicine 08/31/2017 [facility] Alcohol abuse; - Encounter MD Adriana Cystic mass of pancreas; 09/09/2017 Sham[place], History of DVT (deep vein thrombosis); Caden-Dannie Alcohol-induced acute pancreatitis without infection or necrosis; MD Nayely Smoker; Larry Rodriguez Portal vein thrombosis MD Connor Bishop Sahar, MD Neela, Nazia Huerta MD 05/19/2017 Anesthesia Event Gastroenterology Dorota Cortes MD 05/13/2017 [facility] Ulysses Garcia, Alcohol-induced acute pancreatitis, unspecified complication status; - Encounter Medicine Alcohol abuse; 05/20/2017 Rafaela Samson, Cystic mass of pancreas; Smoker; Diomedes Alvarado Thrombocytosis (HCC); MD Lul Alcohol-induced acute pancreatitis without infection or necrosis; Smoking after 03/20/2017 Family History Medical History Relation Name Comments [...] Assigned at Date Recorded Not on file Job Start Date Occupation Industry Not on file Not on file Not on file Travel History Travel Start Travel End No recent travel history available. Last Filed Vital Signs Vital Sign Reading [...] file Procedures Procedure Name Priority Date/Time Associated Comments Diagnosis PHOSPHORUS Routine 09/19/2017 6:02 Results for this AM CDT procedure are in the results section. MAGNESIUM Routine 09/19/2017 6:02 Results for this AM CDT procedure are in the results section. CALCIUM, IONIZED Routine 09/19/2017 6:02 Results for this AM CDT procedure are in the results section. BASIC METABOLIC PANEL Routine 09/19/2017 6:02 Results for this (7) AM CDT procedure are in the results section. PHOSPHORUS Routine 09/18/2017 5:37 Results for this AM CDT procedure are in the results section. MAGNESIUM Routine 09/18/2017 5:37 Results for this AM CDT procedure are in the results section. CALCIUM, IONIZED Routine 09/18/2017 5:37 Results for this AM CDT procedure are in the results section. BASIC METABOLIC PANEL Routine 09/18/2017 5:37 Results for this (7) AM CDT procedure are in the results section. CBC W/PLT COUNT & AUTO Routine 09/17/2017 3:54 Results for this DIFFERENTIAL AM CDT procedure are in the results section. PHOSPHORUS Routine 09/17/2017 3:54 Results for this AM CDT procedure are in the results section. MAGNESIUM Routine 09/17/2017 3:54 Results for this AM CDT procedure are in the results section. CALCIUM, IONIZED Routine 09/17/2017 3:54 Results for this AM CDT procedure are in the results section. BASIC METABOLIC PANEL Routine 09/17/2017 3:54 Results for this (7) AM CDT procedure are in the results section. CBC W/PLT COUNT & AUTO Routine 09/17/2017 3:54 Results for this DIFFERENTIAL AM CDT procedure are in the results section. US ABDOMINAL WITH CHRIS 09/17/2017 3:00 Results for this DOPPLER AM CDT procedure are in the results section. IR EMBOLIZATION Routine 09/16/2017 6:00 Results for this ARTERIAL PM CDT procedure are in the results section. C-REACTIVE PROTEIN Routine 09/16/2017 12:32 Results for this PM CDT procedure are in the results section. PT/APTT STAT 09/16/2017 10:54 Results for this AM CDT procedure are in the results section. CBC W/PLT COUNT & AUTO Routine 09/16/2017 4:20 Results for this DIFFERENTIAL AM CDT procedure are in the results section. LIPASE Routine 09/16/2017 4:20 Results for this AM CDT procedure are in the results section. HEPATIC FUNCTION PANEL Routine 09/16/2017 4:20 Results for this AM CDT procedure are in the results section. TRIGLYCERIDES Routine 09/16/2017 4:20 Results for this AM CDT procedure are in the results section. CBC W/PLT COUNT & AUTO Routine 09/16/2017 4:20 Results for this DIFFERENTIAL AM CDT procedure are in the results section. PHOSPHORUS Routine 09/16/2017 4:20 Results for this AM CDT procedure are in the results section. MAGNESIUM Routine 09/16/2017 4:20 Results for this AM CDT procedure are in the results section. BASIC METABOLIC PANEL Routine 09/16/2017 4:20 Results for this (7) AM CDT procedure are in the results section. XR CHEST 1 VIEW STAT 09/15/2017 7:43 Results for this PORTABLE/BEDSIDE PM CDT procedure are in the results section. PERIPHERAL VASCULAR 09/15/2017 5:20 REPORT - SCAN PM CDT VENOUS DOPPLER LEGS CHRIS 09/15/2017 2:49 Results for this BILATERAL PM CDT procedure are in the results section. PANCREATIC ELASTASE, Routine 09/15/2017 10:36 Results for this FECAL AM CDT procedure are in the results section. CBC W/PLT COUNT & AUTO Routine 09/15/2017 10:00 Results for this DIFFERENTIAL AM CDT procedure are in the results section. CBC W/PLT COUNT & AUTO Routine 09/15/2017 10:00 Results for this DIFFERENTIAL AM CDT procedure are in the results section. PHOSPHORUS Routine 09/15/2017 4:14 Results for this AM CDT procedure are in the results section. MAGNESIUM Routine 09/15/2017 4:14 Results for this AM CDT procedure are in the results section. BASIC METABOLIC PANEL Routine 09/15/2017 4:14 Results for this (7) AM CDT procedure are in the results section. CBC W/PLT COUNT & AUTO Routine 09/14/2017 4:37 Results for this DIFFERENTIAL AM CDT procedure are in the results section. PERIPHERAL BLOOD SMEAR AP Routine 09/14/2017 4:37 Results for this - PATHOLOGIST REVIEW AM CDT procedure are in the results section. LIPASE Routine 09/14/2017 4:37 Results for this AM CDT procedure are in the results section. VITAMIN B12 AND FOLATE Routine 09/14/2017 4:37 Results for this AM CDT procedure are in the results section. PHOSPHORUS Routine 09/14/2017 4:37 Results for this AM CDT procedure are in the results section. MAGNESIUM Routine 09/14/2017 4:37 Results for this AM CDT procedure are in the results section. BASIC METABOLIC PANEL Routine 09/14/2017 4:37 Results for this (7) AM CDT procedure are in the results section. CBC W/PLT COUNT & AUTO Routine 09/14/2017 4:37 Results for this DIFFERENTIAL AM CDT procedure are in the results section. RHYTHM STRIP - SCAN 09/10/2017 10:40 AM CDT APTT Routine 09/09/2017 9:37 Results for this AM CDT procedure are in the results section. CBC W/PLT COUNT & AUTO Routine 09/09/2017 5:12 Results for this DIFFERENTIAL AM CDT procedure are in the results section. BASIC METABOLIC PANEL Routine 09/09/2017 5:12 Results for this (7) AM CDT procedure are in the results section. CBC W/PLT COUNT & AUTO Routine 09/09/2017 5:12 Results for this DIFFERENTIAL AM CDT procedure are in the results section. REPORT OF PROCEDURE - 09/08/2017 5:47 ENDOSCOPY URL PM CDT FINE NEEDLE ASPIRATE Routine 09/08/2017 5:43 Results for this (FNA) REQUEST PM CDT procedure are in the results section. FINE NEEDLE ASPIRATION AP Routine 09/08/2017 5:43 Results for this BY CLINICIAN PM CDT procedure are in the results section. UPPER ENDOSCOPY,FNA 09/08/2017 5:00 Pancreatic W/ULTRASOUND PM CDT pseudocyst UPPER ENDOSCOPY 09/08/2017 5:00 Pancreatic PM CDT pseudocyst APTT Routine 09/08/2017 11:33 Results for this AM CDT procedure are in the results section. CBC W/PLT COUNT & AUTO Routine 09/08/2017 4:31 Results for this DIFFERENTIAL AM CDT procedure are in the results section. BASIC METABOLIC PANEL Routine 09/08/2017 4:31 Results for this (7) AM CDT procedure are in the results section. CBC W/PLT COUNT & AUTO Routine 09/08/2017 4:31 Results for this DIFFERENTIAL AM CDT procedure are in the results section. APTT Routine 09/08/2017 4:31 Results for this AM CDT procedure are in the results section. APTT Routine 09/07/2017 8:54 Results for this PM CDT procedure are in the results section. CBC W/PLT COUNT & AUTO Routine 09/07/2017 1:28 Results for this DIFFERENTIAL PM CDT procedure are in the results section. APTT Routine 09/07/2017 1:28 Results for this PM CDT procedure are in the results section. BASIC METABOLIC PANEL Routine 09/07/2017 1:28 Results for this (7) PM CDT procedure are in the results section. CBC W/PLT COUNT & AUTO Routine 09/07/2017 1:28 Results for this DIFFERENTIAL PM CDT procedure are in the results section. APTT Routine 09/07/2017 6:23 Results for this AM CDT procedure are in the results section. BASIC METABOLIC PANEL Routine 09/07/2017 6:23 Results for this (7) AM CDT procedure are in the results section. APTT Routine 09/07/2017 12:18 Results for this AM CDT procedure are in the results section. APTT Routine 09/06/2017 4:47 Results for this PM CDT procedure are in the results section. APTT Routine 09/06/2017 8:09 Results for this AM CDT procedure are in the results section. BASIC METABOLIC PANEL Routine 09/06/2017 4:13 Results for this (7) AM CDT procedure are in the results section. CBC W/PLT COUNT & AUTO Routine 09/05/2017 3:18 Results for this DIFFERENTIAL AM CDT procedure are in the results section. LIPASE Routine 09/05/2017 3:18 Results for this AM CDT procedure are in the results section. PHOSPHORUS Routine 09/05/2017 3:18 Results for this AM CDT procedure are in the results section. MAGNESIUM Routine 09/05/2017 3:18 Results for this AM CDT procedure are in the results section. BASIC METABOLIC PANEL Routine 09/05/2017 3:18 Results for this (7) AM CDT procedure are in the results section. CBC W/PLT COUNT & AUTO Routine 09/05/2017 3:18 Results for this DIFFERENTIAL AM CDT procedure are in the results section. CT ABD/PELVIS - Routine 09/04/2017 12:20 Results for this PANCREAS EVALUATION AM CDT procedure are in the results section. CBC W/PLT COUNT & AUTO Routine 09/03/2017 5:21 Results for this DIFFERENTIAL AM CDT procedure are in the results section. CBC W/PLT COUNT & AUTO Routine 09/03/2017 5:21 Results for this DIFFERENTIAL AM CDT procedure are in the results section. MAGNESIUM Routine 09/03/2017 5:21 Results for this AM CDT procedure are in the results section. PHOSPHORUS Routine 09/03/2017 5:21 Results for this AM CDT procedure are in the results section. HEPATIC FUNCTION PANEL Routine 09/03/2017 5:21 Results for this AM CDT procedure are in the results section. BASIC METABOLIC PANEL Routine 09/03/2017 5:21 Results for this (7) AM CDT procedure are in the results section. POCT-GLUCOSE METER Routine 09/02/2017 7:29 Results for this AM CDT procedure are in the results section. POCT-GLUCOSE METER Routine 09/02/2017 5:33 Results for this AM CDT procedure are in the results section. CBC W/PLT COUNT & AUTO Routine 09/02/2017 4:29 Results for this DIFFERENTIAL AM CDT procedure are in the results section. CBC W/PLT COUNT & AUTO Routine 09/02/2017 4:29 Results for this DIFFERENTIAL AM CDT procedure are in the results section. MAGNESIUM Routine 09/02/2017 4:29 Results for this AM CDT procedure are in the results section. PHOSPHORUS Routine 09/02/2017 4:29 Results for this AM CDT procedure are in the results section. HEPATIC FUNCTION PANEL Routine 09/02/2017 4:29 Results for this AM CDT procedure are in the results section. BASIC METABOLIC PANEL Routine 09/02/2017 4:29 Results for this (7) AM CDT procedure are in the results section. ECG 12-LEAD Routine 09/01/2017 6:18 Results for this PM CDT procedure are in the results section. US ABDOMEN LIMITED Routine 09/01/2017 5:23 Results for this AM CDT procedure are in the results section. CBC W/PLT COUNT & AUTO Routine 09/01/2017 3:12 Results for this DIFFERENTIAL AM CDT procedure are in the results section. LIPASE Routine 09/01/2017 3:12 Results for this AM CDT procedure are in the results section. AMYLASE Routine 09/01/2017 3:12 Results for this AM CDT procedure are in the results section. C-REACTIVE PROTEIN Routine 09/01/2017 3:12 Results for this AM CDT procedure are in the results section. SEDIMENTATION RATE Routine 09/01/2017 3:12 Results for this AM CDT procedure are in the results section. TSH/FREE T4 IF Routine 09/01/2017 3:12 Results for this INDICATED AM CDT procedure are in the results section. CREATINE KINASE (CK), Routine 09/01/2017 3:12 Results for this TOTAL AND MB AM CDT procedure are in the results section. TROPONIN I Routine 09/01/2017 3:12 Results for this AM CDT procedure are in the results section. CBC W/PLT COUNT & AUTO Routine 09/01/2017 3:12 Results for this DIFFERENTIAL AM CDT procedure are in the results section. HEMOGLOBIN A1C Routine 09/01/2017 3:12 Results for this AM CDT procedure are in the results section. LIPID PANEL Routine 09/01/2017 3:12 Results for this AM CDT procedure are in the results section. MAGNESIUM Routine 09/01/2017 3:12 Results for this AM CDT procedure are in the results section. PHOSPHORUS Routine 09/01/2017 3:12 Results for this AM CDT procedure are in the results section. HEPATIC FUNCTION PANEL Routine 09/01/2017 3:12 Results for this AM CDT procedure are in the results section. BASIC METABOLIC PANEL Routine 09/01/2017 3:12 Results for this (7) AM CDT procedure are in the results section. BLOOD CULTURE Routine 09/01/2017 3:11 Results for this AM CDT procedure are in the results section. BLOOD CULTURE Routine 09/01/2017 3:11 Results for this AM CDT procedure are in the results section. REPORT OF PROCEDURE - 05/22/2017 12:43 ENDOSCOPY SCAN PM PRECISION GRINDER EXTERNAL COMPREHENSIVE Routine 05/19/2017 12:54 Results for this METABOLIC PANEL PM PRECISION GRINDER EXTERNAL procedure are in the results section. COMPREHENSIVE Routine 05/17/2017 4:26 Results for this METABOLIC PANEL AM PRECISION GRINDER EXTERNAL procedure are in the results section. CBC (HEMOGRAM ONLY) Routine 05/17/2017 4:26 Results for this AM PRECISION GRINDER EXTERNAL procedure are in the results section. CBC W/PLT COUNT & AUTO CHRIS 05/16/2017 11:05 Results for this DIFFERENTIAL AM PRECISION GRINDER EXTERNAL procedure are in the results section. CBC W/PLT COUNT & AUTO CHRIS 05/16/2017 11:05 Results for this DIFFERENTIAL AM PRECISION GRINDER EXTERNAL procedure are in the results section. HEPATIC FUNCTION PANEL CHRIS 05/16/2017 10:54 Results for this AM PRECISION GRINDER EXTERNAL procedure are in the results section. BASIC METABOLIC PANEL Routine 05/16/2017 4:48 Results for this (7) AM PRECISION GRINDER EXTERNAL procedure are in the results section. CBC (HEMOGRAM ONLY) Routine 05/15/2017 3:58 Results for this AM PRECISION GRINDER EXTERNAL procedure are in the results section. BASIC METABOLIC PANEL Routine 05/15/2017 3:58 Results for this (7) AM PRECISION GRINDER EXTERNAL procedure are in the results section. LIPASE Routine 05/14/2017 4:08 Results for this AM PRECISION GRINDER EXTERNAL procedure are in the results section. CBC (HEMOGRAM ONLY) Routine 05/14/2017 4:08 Results for this AM PRECISION GRINDER EXTERNAL procedure are in the results section. LIPID PANEL Routine 05/14/2017 4:08 Results for this AM PRECISION GRINDER EXTERNAL procedure are in the results section. HEPATIC FUNCTION PANEL Routine 05/14/2017 4:08 Results for this AM PRECISION GRINDER EXTERNAL procedure are in the results section. BASIC METABOLIC PANEL Routine 05/14/2017 4:08 Results for this (7) AM PRECISION GRINDER EXTERNAL procedure are in the results section. after 03/20/2017 Results Calcium, Ionized (09/19/2017 6:02 AM CDT)Only the most recent of3 resultswithin the time period is included. Calcium, Ion 1.11 (L) 1.12 - 1.27 mmol/L [facility] pH, Blood 7.40 [facility] Specimen Blood - Line, Venous Performing Organization Address [facility] Phone Number [address] [address] [phone] [place] Phosphorus (09/19/2017 6:02 AM CDT)Only the most recent of10 resultswithin the time period is included. Phosphorus 3.0 2.3 - 4.7 mg/dL [facility] Specimen Blood - Line, Venous Performing Organization Address [facility] Phone Number [address] [address] CENTER Magnesium (09/19/2017 6:02 AM CDT)Only the most recent of10 resultswithin the time period is included. Magnesium 2.0 1.6 - 2.6 mg/dL [facility] Specimen Blood - Line, Venous Performing Organization Address [facility] Phone Number [address] [address] CENTER Basic Metabolic Panel (09/19/2017 6:02 AM CDT)Only the most recent of18 resultswithin the time period is included. Sodium 138 136 - 145 meq/L [facility] Potassium 3.8 3.5 - 5.1 meq/L [facility] Chloride 109 (H) 98 - 107 meq/L [facility] CO2 22 22 - 29 meq/L [facility] BUN 10 7 - 21 mg/dL [facility] Creatinine 0.53 (L) 0.57 - 1.25 mg/dL [facility] Glucose 88 70 - 105 mg/dL [facility] Calcium 8.5 8.4 - 10.2 mg/dL [facility] EGFR 174Comment: ESTIMATED GFR IS mL/min/1.73 sq m [facility] NOT ACCURATE CREATININE [facility] CLEARANCE IN PREDICTING GLOMERULAR FILTRATION RATE. ESTIMATED GFR IS NOT APPLICABLE FOR DIALYSIS PATIENTS. Specimen Blood - Line, Venous Performing Organization Address City/State/Zipcode Phone Number [facility] [address] [place] [address] [phone] CENTER CBC with platelet count + automated diff (09/17/2017 3:54 AM CDT)Only the most recent of12 resultswithin the time period is included. WBC 10.1 3.5 - 10.5 K/L [facility] RBC 4.16 (L) 4.63 - 6.08 M/L [facility] Hemoglobin 12.6 (L) 13.7 - 17.5 GM/DL [facility] Hematocrit 37.3 (L) 40.1 - 51.0 % [facility] MCV 89.7 79.0 - 92.2 fL [facility] MCH 30.3 25.7 - 32.2 pg [facility] MCHC 33.8 32.3 - 36.5 GM/DL [facility] RDW 14.0 11.6 - 14.4 % [facility] Platelets 541 (H) 150 - 450 K/CU MM [facility] MPV 9.1 (L) 9.4 - 12.4 fL [facility] nRBC 0 0 - 0 /100 WBC [facility] % Neutros 66 % [facility] % Lymphs 20 % [facility] % Monos 10 % [facility] % Eos 3 % [facility] % Baso 1 % [facility] # Neutros 6.65 (H) 1.78 - 5.38 K/L [facility] # Lymphs 2.05 1.32 - 3.57 K/L [facility] # Monos 1.03 (H) 0.30 - 0.82 K/L [facility] # Eos 0.26 0.04 - 0.54 K/L [facility] # Baso 0.10 (H) 0.01 - 0.08 K/L [facility] Immature Granulocytes-Relative 0 0 - 1 % [facility] Specimen Blood - Line, Venous Performing Organization Address City/State/Zipcode Phone Number [facility] [address] [place] [address] CENTER US abdominal with doppler (09/17/2017 3:00 AM CDT) Narrative Performed At FINAL REPORT [facility] Comparison exam: Right upper quadrant ultrasound 09/01/2017. [...] MD Report Verified Date/Time:09/17/2017 04:01:12 Reading Location: [facility] [id number] Ortho Consult Reading Room Procedure Note Interface, External [...] Report Verified Date/Time: 09/17/2017 04:01:12 Reading Location: [facility] [id number] Ortho Consult Reading Room Performing Organization Address City/State/Zipcode Phone Number [facility] IR Embolization Arterial (09/16/2017 6:00 PM CDT) Narrative Performed At FINAL REPORT [facility] Mesenteric angiogram and embolization History: 37-year-old male with hemorrhagic pancreatic pseudocyst. Modality: Ultrasound and fluoroscopy. Sedation: Moderate sedation was administered. 2.5 mg of Versed and 125 mcg of fentanyl IV was used for moderate sedation monitored under my direction. Total intra-service time of sedation [id number]. The patient's vital signs were monitored throughout the procedure and recorded in the patient's medical record by the nurse. Anesthesia:Two percent Lidocaine without epinephrine. Approach:Right common femoral artery. Estimated blood loss:< 5 cc. Specimen: None. roofing machine operator: Michael Ortega MD. Wood Pile Driver Operator: None.. Fluoroscopy Time: 31.7 min. Reference [...] over 0.035 Bentson wire for a 5 Finnish by 10 cm vascular sheath. A 5 Finnish Sutton B catheter was used to select the celiac trunk and SMA for multiple DSA runs. The Sutton catheter was then remanipulated into the celiac trunk. Next, using a 2.4 Finnish microcatheter and 0.016 inch microwire, the gastroduodenal artery was cannulated. Subsequently, the catheter was manipulated into the feeding branch supplying the abnormal area of hyperemia/vessel irregularity. From this location, embolization was performed using Interlock microcoils. The microcatheter was retracted into the GDA proximally and postdilatation DSA was performed. Next, the Sutton base catheter was manipulated into the SMA. Using a 2. Finnish directional microcatheter and 0.014 inch microwire, the [...] GDA and SMA as detailed above. Signed: Micahel Ortega MD Report Verified Date/Time:09/20/2017 16:25:06 Reading Location: [place] [address] Angio Body Reading Room Procedure Note Interface, [...] blood loss: < 5 cc. Specimen: None. roofing machine operator: Michael Ortega MD. Wood Pile Driver Operator: None.. Fluoroscopy Time: 31.7 min. Reference [...] over 0.035 Bentson wire for a 5 Finnish by 10 cm vascular sheath. A 5 Finnish Sutton B catheter was used to select the celiac trunk and SMA for multiple DSA runs. The Sutton catheter was then remanipulated into the celiac trunk. Next, using a 2.4 Finnish microcatheter and 0.016 inch microwire, the gastroduodenal artery was cannulated. Subsequently, the catheter was manipulated into the feeding branch supplying the abnormal area of hyperemia/vessel irregularity. From this location, embolization was performed using Interlock microcoils. The microcatheter was retracted into the GDA proximally and postdilatation DSA was performed. Next, the Sutton base catheter was manipulated into the SMA. Using a 2. Finnish directional microcatheter and 0.014 inch microwire, the [...] Report Verified Date/Time: 09/20/2017 16:25:06 Reading Location: [place] [address] Angio Body Reading Room Performing Organization Address City/[facility]/Zipcode Phone Number GE RIS C-Reactive Protein (09/16/2017 12:32 PM CDT)Only the most recent of2 resultswithin the time period is included. CRP 0.97 (H) 0.00 - 0.50 mg/dL [facility] Specimen Blood - Central Venous Line Performing Organization Address City/State/Zipcode Phone Number [facility] [address] [place] [address] [phone] CENTER PT/aPTT (09/16/2017 10:54 AM CDT) Protime 16.2 (H) 11.7 - 14.7 seconds [facility] INR 1.3 <=5.9 [facility] PTT 30.2 22.5 - 36.0 seconds [facility] Specimen Blood - Central Venous Line Narrative Performed At [facility] RECOMMENDED COUMADIN/WARFARIN INR THERAPY RANGES STANDARD DOSE: 2.0 - 3.0 Includes: PROPHYLAXIS for venous thrombosis, systemic embolization; TREATMENT for venous thrombosis and/or pulmonary embolus. HIGH RISK: Target INR is 2.5-3.5 for patients with mechanical heart valves. Performing Organization Address City/[facility] Phone Number [address] [address] [phone] [place] Triglycerides (09/16/2017 4:20 AM CDT) Triglycerides 78 mg/dL [facility] Specimen Blood - Line, Venous Narrative Performed At [facility] TRIGLYCERIDE REFERENCE RANGE Low Risk<150 Borderline Risk 150-199 High Alxp408-409 Very High Risk >=500 Performing Organization Address [facility] Phone Number [address] [address] [phone] CENTER Lipase (09/16/2017 4:20 AM CDT)Only the most recent of5 resultswithin the time period is included. Lipase 114 (H) 8 - 78 U/L [facility] Specimen Blood - Line, Venous Performing Organization Address [facility] Phone Number [address] [address] [phone] [place] Hepatic function panel (09/16/2017 4:20 AM CDT)Only the most recent of6 resultswithin the time period is included. Protein, Total 6.5 6.0 - 8.3 gm/dL [facility] Albumin 3.7 3.5 - 5.0 g/dL [facility] Total Bilirubin 0.3 0.2 - 1.2 mg/dL [facility] Bilirubin, Direct 0.1 0.1 - 0.5 mg/dL [facility] Alkaline Phosphatase 79 40 - 150 U/L [facility] AST 14 5 - 34 U/L [facility] ALT 9 6 - 55 U/L [facility] Specimen Blood - Line, Venous Performing Organization Address City/State/Zipcode Phone Number [facility] [address] [place] [address] CENTER XR chest 1 view portable / bedside (09/15/2017 7:43 PM CDT) Narrative Performed At FINAL REPORT Dasher History: PICC line placement. Comparison: None. Findings: 2 frontal views of the chest are submitted. A left PICC line tip overlies the SVC. The cardiomediastinal contours are unremarkable. There is no focal consolidation, pneumothorax, large pleural effusion or evidence of overt pulmonary edema. There is no acute bony abnormality. Signed: George Keys MD Report Verified Date/Time:09/15/2017 19:53:01 Reading Location: [address] Reading Room Procedure Note Interface, External [...] Report Verified Date/Time: 09/15/2017 19:53:01 Reading Location: [address] Reading Room Performing Organization Address City/State/Zipcode Phone Number [facility] PERIPHERAL VASCULAR REPORT - SCAN (09/15/2017 5:20 PM CDT) Narrative Performed At Venous doppler legs bilateral (09/15/2017 2:49 PM CDT) Ejection Fraction [facility] Impressions Performed At Right Impression [facility] 1. 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 Interpreting Prema Gabriel, T, [facility] Physician , RPVI Procedure Type [...] cm/s ; Diameters are measured in cm Performing Organization Address City/State/Zipcode Phone Number [facility] Pancreatic elastase, fecal (09/15/2017 10:36 AM CDT) Pancreatic Elastase-1 174 (L) mcg/g [facility] Comment: [facility] Adult and Pediatric Reference Ranges for Pancreatic Elastase-1: Normal:>200 mcg/g Moderate Pancreatic Insufficiency: 100-200 mcg/g Severe Pancreatic Insufficiency:<100 mcg/g Elastase-1 (E-1) assay results are expressed in mcg/g, which represent mcg E1/g feces. It is not necessary to interrupt enzyme substitution therapy. Specimen Stool - Stool Narrative Performed At Performing Lab [facility] [address] [address] Enrique Holliday MD, PhD, GIDEON Performing Organization Address [facility] Phone Number [facility] [address] [place] [address] Peripheral Blood Smear - Path Review (09/14/2017 4:37 AM CDT) Pathologist Review Thrombocytosis. No [facility] circulating blasts or MEDICAL CENTER increased schistocytes. Clinical follow up recommended. Pathologist: Enoch Saba, [facility] Miladis(electronic signature) [facility] Specimen Blood Performing Organization Address [facility] Phone Number [facility] [address] [place] [address] CENTER Vitamin B12 and Folate (09/14/2017 4:37 AM CDT) Vitamin B12 527 213 - 816 pg/mL [facility] Folate 12.3 >=7.0 ng/mL [facility] Specimen Blood Performing Organization Address City/[facility] Phone Number [facility] [address] [place] [address] CENTER RHYTHM STRIP - SCAN (09/10/2017 10:40 AM CDT) Narrative Performed At aPTT (09/09/2017 9:37 AM CDT)Only the most recent of9 resultswithin the time period is included. PTT 44.5 (H) 22.5 - 36.[address] [facility] Specimen Blood Performing Organization Address City/State/Zipcode Phone Number [facility] [address] [place] [address] CENTER REPORT OF PROCEDURE - ENDOSCOPY URL (09/08/2017 5:47 PM CDT) Narrative Performed At FINE NEEDLE ASPIRATE (FNA) REQUEST (09/08/2017 5:43 PM CDT) Cytology See Separate Report [facility] Specimen Fine Needle Aspirate - Pancreas Performing Organization Address City/State/Zipcode Phone Number [facility] [address] [place] [address] CENTER Fine Needle Aspirate by Clinician (09/08/2017 5:43 PM CDT) Case Report Medical Cytology Report Case: [id number] [facility] Authorizing Provider:Bessy Hernandez MDCollected: 09/08/2017 1743 [facility] Ordering Location: [address] Received: 09/08/2017 1814 Service Pathologist: Mir Anthony MD Specimen:Pancreas DIAGNOSIS PANCREAS HEAD CYSTIC LESION FNA BY CLINICIAN (CYTOSPINS AND CELL BLOCK OF ASPIRATE): [facility] - NO MALIGNANT CELLS IDENTIFIED [facility] - The mucin stain shows focal weak staining Signing Pathologist Direct Phone Line: [phone] COMMENT The cell block shows [facility] non-inflammed pancreatic [facility] acinar tissue. CPT Code(s) 01476, 68350, 81219 [facility] CLINICAL DATA (4.9 X 4.8 cm) Cystic [facility] lesion in the pancreatic [facility] head SPECIMEN SOURCE PANCREAS HEAD CYSTIC [facility] LESION FNA [facility] GROSS DESCRIPTION 25 mls in cytorich red; 4 cytospins, 1 mucin stain, cell block [facility] Collected: [id number] [facility] Received: [id number] Technical component was [facility] performed at Center, Department of [facility] Pathology, [address] [place] [id number], Professional [facility] performed at Center, Department of [facility] Pathology, [address] [place] [address], Specimen Fine Needle Aspirate - Pancreas Narrative Performed At Performing Organization Address City/State/Zipcode Phone Number [facility] [address] [place], [place] [address] [phone] abd/pelvis - pancreas evaluation (09/04/2017 12:20 AM CDT) Narrative Performed At FINAL REPORT Shyp CT, ABDOMEN - PELVIS, PANCREAS EVALUATION INDICATION: [...] MD Report Verified Date/Time:09/04/2017 00:22:52 Reading Location: [address] Reading Room Procedure Note Interface, External [...] Report Verified Date/Time: 09/04/2017 00:22:52 Reading Location: [address] Reading Room Performing Organization Address City/State/Zipcode Phone Number [facility] POC-Glucose meter (09/02/2017 7:29 AM CDT)Only the most recent of2 resultswithin the time period is included. POC-Glucose Meter 140 (H)Comment: TESTED AT 70 - 110 mg/dL [facility] [address] [facility] [id number] Specimen Blood Performing Organization Address [facility] Phone Number [address] [phone] CENTER ECG 12 lead (09/01/2017 6:18 PM CDT) Narrative Performed At Ventricular Rate 77 BPM GE MUSE Atrial Rate 77 BPM P-R Interval 162 ms QRS Duration 98 ms Q-T Interval 404 ms QTC Calculation(Bazett) 457 ms P [place] -8 degrees R [place] 30 degrees T [place] -1 degrees Normal sinus rhythm RSR' or [...] 404 ms QTC Calculation(Bazett) 457 ms P [place] -8 degrees R [place] 30 degrees T [place] -1 degrees Normal sinus rhythm RSR' or QR pattern in V1 suggests right ventricular conduction delay Cannot rule out Anterior infarct , age undetermined Abnormal ECG No previous ECGs available Confirmed by MD [place] ([id number]) on 09/02/2017 2:25:25 PM Performing Organization Address City/[facility] Phone Number [place] US abdomen limited (09/01/2017 5:23 AM CDT) Narrative Performed At FINAL REPORT GE Dasher INDICATION: 37-year-old male with abdominal pain and [...] MD Report Verified Date/Time:09/01/2017 09:53:12 Reading Location: [address] Ultrasound Reading Room Procedure Note Interface, [...] Report Verified Date/Time: 09/01/2017 09:53:12 Reading Location: [address] Ultrasound Reading Room Performing Organization Address City/State/Zipcode Phone Number GE RIS TSH/Free T4 If Indicated (09/01/2017 3:12 AM CDT) TSH 0.36 0.35 - 4.94 uIU/mL [facility] Specimen Blood - Arm, Left Performing Organization Address [facility] Phone Number [address] [address] CENTER Troponin I (09/01/2017 3:12 AM CDT) Troponin I <0.01 0.00 - 0.03 ng/mL [facility] Specimen Blood - Arm, Left Narrative Performed At [facility] Troponin I (TnI) levels must be interpreted [...] acidosis, acute neurological disease, and persistent tachyarrhythmia. Performing Organization Address [facility] Phone Number [address] [address] CENTER Sedimentation rate (09/01/2017 3:12 AM CDT) Sed Rate 3 0 - 15 mm/HR [facility] Specimen Blood - Arm, Left Performing Organization Address [facility] Phone Number [address] [address] CENTER Hemoglobin A1c (09/01/2017 3:12 AM CDT) Hemoglobin A1C 4.7 4.3 - 6.1 % [facility] Specimen Blood - Arm, Left Performing Organization Address [facility] Phone Number [address] [address] [phone] CENTER Creatine Kinase (CK), Total and MB (09/01/2017 3:12 AM CDT) Total CK 29 29 - 200 U/L [facility] CK-MB 0.4 0.0 - 6.6 ng/mL [facility] MB Relative Index 1.4 % [facility] Specimen Blood - Arm, Left Narrative Performed At CK-MB Reference Range: [facility] <6.7Normal 6.7-10.0Borderline >10.0 Abnormal Performing Organization Address City/[facility] Phone Number [address] [address] [phone] [place] Amylase (09/01/2017 3:12 AM CDT) Amylase 383 (H) 25 - 125 U/L [facility] Specimen Blood - Arm, Left Performing Organization Address [facility] Phone Number [address] [address] [phone] [place] Lipid panel (09/01/2017 3:12 AM CDT)Only the most recent of2 resultswithin the time period is included. Triglycerides 76 mg/dL [facility] Cholesterol 118 mg/dL [facility] HDL 37 mg/dL [facility] LDL Calculated 66 mg/dL [facility] Specimen Blood - Arm, Left Narrative Performed At [facility] Triglyceride Reference Range: Low Risk <150 [id number] High Risk 200-499 Very High Risk>=500 Cholesterol Reference Range: Low Risk <200 Hreevsaqbh024-352 High Risk>240 HDL Cholesterol Reference Range: Low Risk >=60 High Risk <40 LDL Cholesterol Reference Range: Optimal<100 Near Iypevuv452-220 Calujneddh310-336 Gvzq546-723 Very High >=190 Performing Organization Address City/[facility] Phone Number [address] [address] [place] Blood culture (09/01/2017 3:11 AM CDT)Only the most recent of2 resultswithin the time period is included. Result No growth in 5 days [facility] Specimen Blood - Arm, Right Performing Organization Address City/State/Zipcode Phone Number [facility] [address] [place] [address] CENTER EKG-SCANNED (05/22/2017 12:43 PM PRECISION GRINDER EXTERNAL) Narrative Performed At Comprehensive metabolic panel (05/19/2017 12:54 PM PRECISION GRINDER EXTERNAL)Only the most recent of2 resultswithin the time period is included. Protein, Total 7.8 6.0 - 8.3 gm/dL [facility] Albumin 3.9 3.5 - 5.0 g/dL [facility] Alkaline Phosphatase 62 40 - 150 U/L [facility] Total Bilirubin 0.3 0.2 - 1.2 mg/dL [facility] Sodium 139 136 - 145 meq/L [facility] Potassium 4.2 3.5 - 5.1 meq/L [facility] Chloride 104 98 - 107 meq/L [facility] CO2 26 22 - 29 meq/L [facility] BUN 9 7 - 21 mg/dL [facility] Creatinine 0.64 0.57 - 1.25 mg/dL [facility] Glucose 78 70 - 105 mg/dL [facility] Calcium 9.5 8.4 - 10.2 mg/dL [facility] AST 18 5 - 34 U/L [facility] ALT 8 6 - 55 U/L [facility] EGFR 141Comment: ESTIMATED mL/min/1.[address] [facility] GFR IS NOT ACCURATE [facility] CREATININE CLEARANCE IN PREDICTING GLOMERULAR FILTRATION RATE. ESTIMATED GFR IS NOT APPLICABLE FOR DIALYSIS PATIENTS. Specimen Blood Performing Organization Address City/[facility] Phone Number [facility] [address] [place] [address] [place] CBC (Hemogram only) (05/17/2017 4:26 AM PRECISION GRINDER EXTERNAL)Only the most recent of3 resultswithin the time period is included. WBC 6.4 3.5 - 10.5 K/L [facility] RBC 3.84 (L) 4.63 - 6.08 M/L [facility] Hemoglobin 11.5 (L) 13.7 - 17.5 GM/DL [facility] Hematocrit 35.2 (L) 40.1 - 51.0 % [facility] MCV 91.7 79.0 - 92.2 fL [facility] MCH 29.9 25.7 - 32.2 pg [facility] MCHC 32.7 32.3 - 36.5 GM/DL [facility] RDW 14.1 11.6 - 14.4 % [facility] Platelets 434 150 - 450 K/CU MM [facility] MPV 9.4 9.4 - 12.4 fL [facility] nRBC 0 0 - 0 /100 WBC [facility] Specimen Blood - Arm, Right Performing Organization Address City/[facility]/Zipcode Phone Number [facility] [address] [place] [address] [place] after 03/20/2017 Advance Directives For more information, please contact:[address] [phone] Code Status Date Activated Date Inactivated Comments Full Code 09/14/2017 1:34 AM 09/19/2017 4:55 PM This code status was determined by: Patient Full Code 09/01/2017 1:39 AM 09/09/2017 4:43 PM This code status was determined by: Patient Full Code 05/13/2017 7:15 PM 05/20/2017 2:34 PM This code status was determined by: Patient Full Code 03/09/2017 7:49 AM 03/14/2017 4:40 PM This code status was determined by: Patient
--- OUTSIDE RECORDS SUMMARY | 2018-03-21 11:17 | XMS REPORT ---
[...] Status Dosage System Date Date Apixaban [facility] [address]-86 2.5 MG Orally Active not defined Tramadol HCl [facility] [id number] 50 MG Orally Active 1 tablet every 6 hrs as needed Results No Known Results Summary Purpose eClinicalWorks Submission
--- OUTSIDE RECORDS SUMMARY | 2018-03-21 11:17 | XMS REPORT ---
:1980 [facility] Address [address] [place] [address] Care Team Providers Name Role Phone VANI FLORES Unavailable Unavailable SEEMA SPANN Unavailable Unavailable LIZ LILIA Unavailable Unavailable MELISSAPATT Rodriguez Unavailable Unavailable Problems This patient has no known problems. Allergies, Adverse Reactions, Alerts This patient has no known allergies or adverse reactions. Medications This patient has no known medications. Results Test Description Test Time Test Comments Text Results Atomic Results Result Comments MICHAEL WALLER, 2017-09-[address] [facility] for FINAL REPORT PATIENT EXTENSIVE - 16:25:00 evidence of bleedCall with ID: [id number] ARTERIAL questions: [phone] or Mesenteric angiogram [facility] for and embolization exam:->Pancreaticoduodednal artery with intermittent [...] blood loss: < 5 cc. Specimen: None. feed preparation operator: Michael Ortega MD. Molder Operator: None.. Fluoroscopy Time: 31.7 min.Reference Air Kerma [...] over 0.035 Bentson wire for a 5 Greenlandic by 10 cm vascular sheath. A 5 Greenlandic Sutton B catheter was used to select the celiac trunk and SMA for multiple DSA runs. The Sutton catheter was then remanipulated into the celiac trunk. Next, using a 2.4 Greenlandic microcatheter and 0.016 inch microwire, the gastroduodenal artery was cannulated. Subsequently, the catheter was manipulated into the feeding branch supplying the abnormal area of hyperemia/vessel irregularity. From this location, embolization was performed using Interlock microcoils. The microcatheter was retracted into the GDA proximally and postdilatation DSA was performed. Next, the Sutton base catheter was manipulated into the SMA. Using a 2. Greenlandic directional microcatheter and 0.014 inch microwire, the [...] Ortegaort Verified Date/Time: 09/20/2017 16:25:06 Reading Location: [place] [address] Angio Body Reading Room IUM, IONIZED 2017-09-19 07:02:00 Test Item Value Reference Range Comments CALCIUM IONIZED (BEAKER) (test rwon=799) 1.11 mmol/L 1.12-1.27 PH, BLOOD (BEAKER) (test cwix=2322) 7.40 [id number] 06:35:00 Test Item Value Reference Range Comments PHOSPHORUS (BEAKER) (test vkng=469) 3.0 mg/dL 2.3-4.7 [id number] 06:35:00 Test Item Value Reference Range Comments MAGNESIUM (BEAKER) (test aeyu=273) 2.0 mg/dL 1.6-2.6 BASIC METABOLIC [id number] 06:35:00 Test Item Value Reference Range Comments SODIUM (BEAKER) (test 138 meq/L 136-145 ywin=779) POTASSIUM (BEAKER) (test 3.8 meq/L 3.5-5.1 scvn=640) CHLORIDE (BEAKER) (test 109 meq/L 98-107 simf=332) CO2 (BEAKER) (test 22 meq/L 22-29 ulgx=922) BLOOD UREA NITROGEN 10 mg/dL 7-21 (BEAKER) (test ynbv=236) CREATININE (BEAKER) (test 0.53 mg/dL 0.57-1.25 ktla=246) GLUCOSE RANDOM (BEAKER) 88 mg/dL 70-105 (test tgmo=391) CALCIUM (BEAKER) (test 8.5 mg/dL 8.4-10.2 bnwa=828) EGFR (BEAKER) (test 174 mL/min/1.73 sq m ESTIMATED GFR IS NOT fwov=8497) ACCURATE CREATININE CLEARANCE IN PREDICTING GLOMERULAR FILTRATION RATE. ESTIMATED GFR IS NOT APPLICABLE FOR DIALYSIS PATIENTS. CALCIUM, [id number] 07:12:00 Test Item Value Reference Range Comments CALCIUM IONIZED (BEAKER) (test ungp=483) 1.09 mmol/L 1.12-1.27 PH, BLOOD (BEAKER) (test eioi=3927) 7.41 [id number] 06:38:00 Test Item Value Reference Range Comments PHOSPHORUS (BEAKER) (test htlr=141) 3.0 mg/dL 2.3-4.7 [id number] 06:38:00 Test Item Value Reference Range Comments MAGNESIUM (BEAKER) (test hiqo=418) 2.1 mg/dL 1.6-2.6 BASIC METABOLIC [id number] 06:38:00 Test Item Value Reference Range Comments SODIUM (BEAKER) (test 137 meq/L 136-145 yqaj=786) POTASSIUM (BEAKER) (test 3.7 meq/L 3.5-5.1 zzpq=333) CHLORIDE (BEAKER) (test 108 meq/L 98-107 ceow=602) CO2 (BEAKER) (test 22 meq/L 22-29 mmib=896) BLOOD UREA NITROGEN 10 mg/dL 7-21 (BEAKER) (test oknp=774) CREATININE (BEAKER) (test 0.52 mg/dL 0.57-1.25 ynke=078) GLUCOSE RANDOM (BEAKER) 99 mg/dL 70-105 (test ekmt=700) CALCIUM (BEAKER) (test 8.6 mg/dL 8.4-10.2 oeli=609) EGFR (BEAKER) (test 178 mL/min/1.73 sq m ESTIMATED GFR IS NOT bnwx=8128) ACCURATE CREATININE CLEARANCE IN PREDICTING GLOMERULAR FILTRATION RATE. ESTIMATED GFR IS NOT APPLICABLE FOR DIALYSIS PATIENTS. CALCIUM, [id number] 04:45:00 Test Item Value Reference Range Comments CALCIUM IONIZED (BEAKER) (test uyhr=778) 1.14 mmol/L 1.12-1.27 PH, BLOOD (BEAKER) (test uhnn=0165) 7.39 [id number] 04:22:00 Test Item Value Reference Range Comments PHOSPHORUS (BEAKER) (test koga=624) 2.8 mg/dL 2.3-4.7 [id number] 04:22:00 Test Item Value Reference Range Comments MAGNESIUM (BEAKER) (test ikmd=283) 1.9 mg/dL 1.6-2.6 BASIC METABOLIC [id number] 04:22:00 Test Item Value Reference Range Comments SODIUM (BEAKER) (test 134 meq/L 136-145 zaiv=969) POTASSIUM (BEAKER) (test 3.3 meq/L 3.5-5.1 lpxl=275) CHLORIDE (BEAKER) (test 103 meq/L 98-107 mzaa=657) CO2 (BEAKER) (test 23 meq/L 22-29 qkad=490) BLOOD UREA NITROGEN 11 mg/dL 7-21 (BEAKER) (test bztq=668) CREATININE (BEAKER) (test 0.55 mg/dL 0.57-1.25 jtei=317) GLUCOSE RANDOM (BEAKER) 112 mg/dL 70-105 (test figf=988) CALCIUM (BEAKER) (test 8.7 mg/dL 8.4-10.2 zhbt=084) EGFR (BEAKER) (test 167 mL/min/1.73 sq m ESTIMATED GFR IS NOT xjcj=0192) ACCURATE CREATININE CLEARANCE IN PREDICTING GLOMERULAR FILTRATION RATE. ESTIMATED GFR IS NOT APPLICABLE FOR DIALYSIS PATIENTS. CBC W/PLT COUNT & AUTO [id number] 04:11:00 Test Item Value Reference Range Comments WHITE BLOOD CELL COUNT (BEAKER) (test ppte=808) 10.1 K/ L 3.5-10.5 RED BLOOD CELL COUNT (BEAKER) (test tlyo=122) 4.16 M/ L 4.63-6.08 HEMOGLOBIN (BEAKER) (test dvin=670) 12.6 GM/DL 13.7-17.5 HEMATOCRIT (BEAKER) (test krbo=413) 37.3 % 40.1-51.0 MEAN CORPUSCULAR VOLUME (BEAKER) (test hngw=944) 89.7 fL 79.0-92.2 MEAN CORPUSCULAR HEMOGLOBIN (BEAKER) (test 30.3 pg 25.7-32.2 gxpn=330) MEAN CORPUSCULAR HEMOGLOBIN CONC (BEAKER) (test 33.8 GM/DL 32.3-36.5 jjpv=589) RED CELL DISTRIBUTION WIDTH (BEAKER) (test 14.0 % 11.6-14.4 suid=530) PLATELET COUNT (BEAKER) (test pbov=669) 541 K/CU MM 150-450 MEAN PLATELET VOLUME (BEAKER) (test qqly=804) 9.1 fL 9.4-12.4 NUCLEATED RED BLOOD CELLS (BEAKER) (test 0 /100 WBC 0-0 fjzc=751) NEUTROPHILS RELATIVE PERCENT (BEAKER) (test 66 % vzue=989) LYMPHOCYTES RELATIVE PERCENT (BEAKER) (test 20 % wmzd=107) MONOCYTES RELATIVE PERCENT (BEAKER) (test 10 % qjky=820) EOSINOPHILS RELATIVE PERCENT (BEAKER) (test 3 % jzpg=107) BASOPHILS RELATIVE PERCENT (BEAKER) (test 1 % bwsj=759) NEUTROPHILS ABSOLUTE COUNT (BEAKER) (test 6.65 K/ L 1.78-5.38 aios=148) LYMPHOCYTES ABSOLUTE COUNT (BEAKER) (test 2.05 K/ L 1.32-3.57 fcvl=731) MONOCYTES ABSOLUTE COUNT (BEAKER) (test 1.03 K/ L 0.30-0.82 eeoj=961) EOSINOPHILS ABSOLUTE COUNT (BEAKER) (test 0.26 K/ L 0.04-0.54 oyxb=216) BASOPHILS ABSOLUTE COUNT (BEAKER) (test 0.10 K/ L 0.01-0.08 jfka=265) IMMATURE GRANULOCYTES-RELATIVE PERCENT (BEAKER) 0 % 0-1 (test nbvm=3434) U/S, ABDOMINAL, WITH [id number] 04:01:00Reason for exam:->? hx of PV thrombosisFINAL [...] Gaspar Verified Date/Time: 09/17/2017 04:01:12 Reading Location: [facility] [id number] Ortho Consult Reading Room 04 :01 AMC-REACTIVE [id number] 13:17:00 Test Item Value Reference Range Comments C-REACTIVE PROTEIN (BEAKER) (test hvqx=007) 0.97 mg/dL 0.00-0.50 [id number] 11:12:00 Test Item Value Reference Range Comments PROTIME (BEAKER) (test nndc=623) 16.2 seconds 11.7-14.7 INR (BEAKER) (test caex=634) 1.3 <=5.9 PARTIAL THROMBOPLASTIN TIME (BEAKER) (test 30.2 seconds 22.5-36.0 eqfw=094) RECOMMENDED COUMADIN/WARFARIN INR THERAPY RANGESSTANDARD DOSE: 2.0 - 3.0 Includes: PROPHYLAXIS forvenous thrombosis, systemic embolization; TREATMENT for venous thrombosis and/or pulmonary embolus.HIGH RISK: Target INR is 2.5-3.5 for patients with mechanical heart valves.[id number] 05:28:00 Test Item Value Reference Range Comments TRIGLYCERIDES (BEAKER) (test bgyo=288) 78 mg/dL TRIGLYCERIDE REFERENCE RANGELow Risk <150Borderline Risk 150-199High Risk 200-499Very High Risk>=[id number] 05:28:00 Test Item Value Reference Range Comments MAGNESIUM (BEAKER) (test akmb=129) 1.9 mg/dL 1.6-2.6 [id number] 05:28:00 Test Item Value Reference Range Comments PHOSPHORUS (BEAKER) (test gpux=416) 3.5 mg/dL 2.3-4.7 BASIC METABOLIC [id number] 05:28:00 Test Item Value Reference Range Comments SODIUM (BEAKER) (test 134 meq/L 136-145 mngu=576) POTASSIUM (BEAKER) (test 3.6 meq/L 3.5-5.1 fzfq=625) CHLORIDE (BEAKER) (test 105 meq/L 98-107 zzwg=447) CO2 (BEAKER) (test 23 meq/L 22-29 eulc=031) BLOOD UREA NITROGEN 13 mg/dL 7-21 (BEAKER) (test fjgj=839) CREATININE (BEAKER) (test 0.56 mg/dL 0.57-1.25 jfhs=369) GLUCOSE RANDOM (BEAKER) 83 mg/dL 70-105 (test mbqu=037) CALCIUM (BEAKER) (test 8.8 mg/dL 8.4-10.2 vewo=352) EGFR (BEAKER) (test 163 mL/min/1.73 sq m ESTIMATED GFR IS NOT jroc=7313) ACCURATE CREATININE CLEARANCE IN PREDICTING GLOMERULAR FILTRATION RATE. ESTIMATED GFR IS NOT APPLICABLE FOR DIALYSIS PATIENTS. HEPATIC FUNCTION [id number] 05:28:00 Test Item Value Reference Range Comments TOTAL PROTEIN (BEAKER) (test iyne=569) 6.5 gm/dL 6.0-8.3 ALBUMIN (BEAKER) (test llhx=5197) 3.7 g/dL 3.5-5.0 BILIRUBIN TOTAL (BEAKER) (test fqth=332) 0.3 mg/dL 0.2-1.2 BILIRUBIN DIRECT (BEAKER) (test mqsm=232) 0.1 mg/dL 0.1-0.5 ALKALINE PHOSPHATASE (BEAKER) (test gpsi=823) 79 U/L 40-150 AST (SGOT) (BEAKER) (test nlfx=978) 14 U/L 5-34 ALT (SGPT) (BEAKER) (test fwbh=603) 9 U/L 6-55 [id number] 05:28:00 Test Item Value Reference Range Comments LIPASE (BEAKER) (test osja=312) 114 U/L 8-78 CBC W/PLT COUNT & AUTO [id number] 05:03:00 Test Item Value Reference Range Comments WHITE BLOOD CELL COUNT (BEAKER) (test kxgv=124) 7.2 K/ L 3.5-10.5 RED BLOOD CELL COUNT (BEAKER) (test gtdi=713) 4.04 M/ L 4.63-6.08 HEMOGLOBIN (BEAKER) (test hkzk=086) 12.2 GM/DL 13.7-17.5 HEMATOCRIT (BEAKER) (test tvmc=552) 36.7 % 40.1-51.0 MEAN CORPUSCULAR VOLUME (BEAKER) (test mpgo=549) 90.8 fL 79.0-92.2 MEAN CORPUSCULAR HEMOGLOBIN (BEAKER) (test 30.2 pg 25.7-32.2 mrdc=152) MEAN CORPUSCULAR HEMOGLOBIN CONC (BEAKER) (test 33.2 GM/DL 32.3-36.5 cthy=080) RED CELL DISTRIBUTION WIDTH (BEAKER) (test 14.3 % 11.6-14.4 poze=718) PLATELET COUNT (BEAKER) (test pxzl=717) 561 K/CU MM 150-450 MEAN PLATELET VOLUME (BEAKER) (test yuoz=913) 9.2 fL 9.4-12.4 NUCLEATED RED BLOOD CELLS (BEAKER) (test 0 /100 WBC 0-0 evwe=046) NEUTROPHILS RELATIVE PERCENT (BEAKER) (test 51 % ydlo=359) LYMPHOCYTES RELATIVE PERCENT (BEAKER) (test 32 % efhp=131) MONOCYTES RELATIVE PERCENT (BEAKER) (test 11 % jnnk=403) EOSINOPHILS RELATIVE PERCENT (BEAKER) (test 4 % pdwh=054) BASOPHILS RELATIVE PERCENT (BEAKER) (test 2 % tvwr=390) NEUTROPHILS ABSOLUTE COUNT (BEAKER) (test 3.66 K/ L 1.78-5.38 uftt=327) LYMPHOCYTES ABSOLUTE COUNT (BEAKER) (test 2.30 K/ L 1.32-3.57 cfqg=036) MONOCYTES ABSOLUTE COUNT (BEAKER) (test 0.77 K/ L 0.30-0.82 xwym=453) EOSINOPHILS ABSOLUTE COUNT (BEAKER) (test 0.30 K/ L 0.04-0.54 ebbw=213) BASOPHILS ABSOLUTE COUNT (BEAKER) (test 0.11 K/ L 0.01-0.08 igsz=068) IMMATURE GRANULOCYTES-RELATIVE PERCENT (BEAKER) 1 % 0-1 (test mezt=0460) RAD, CHEST, 1 VIEW, NON [id number] 19:53:00Reason for exam:->check picc placement Should this [...] MDReport Verified Date/Time: 09/15/2017 19:53:01 Reading Location: [address] Reading Room Electronically signed by: GEORGE KEYS M.D. on 07:53 PMCBC W/PLT COUNT & AUTO [id number] 10:27:00 Test Item Value Reference Range Comments WHITE BLOOD CELL COUNT (BEAKER) (test ypiv=661) 7.8 K/ L 3.5-10.5 RED BLOOD CELL COUNT (BEAKER) (test gdva=475) 3.95 M/ L 4.63-6.08 HEMOGLOBIN (BEAKER) (test winy=604) 12.0 GM/DL 13.7-17.5 HEMATOCRIT (BEAKER) (test dehs=676) 35.9 % 40.1-51.0 MEAN CORPUSCULAR VOLUME (BEAKER) (test bbru=106) 90.9 fL 79.0-92.2 MEAN CORPUSCULAR HEMOGLOBIN (BEAKER) (test 30.4 pg 25.7-32.2 vlma=833) MEAN CORPUSCULAR HEMOGLOBIN CONC (BEAKER) (test 33.4 GM/DL 32.3-36.5 svey=854) RED CELL DISTRIBUTION WIDTH (BEAKER) (test 14.6 % 11.6-14.4 tzyg=356) PLATELET COUNT (BEAKER) (test dfmu=161) 543 K/CU MM 150-450 MEAN PLATELET VOLUME (BEAKER) (test bhvc=412) 9.1 fL 9.4-12.4 NUCLEATED RED BLOOD CELLS (BEAKER) (test 0 /100 WBC 0-0 xxxq=476) NEUTROPHILS RELATIVE PERCENT (BEAKER) (test 59 % eckc=214) LYMPHOCYTES RELATIVE PERCENT (BEAKER) (test 27 % rayv=056) MONOCYTES RELATIVE PERCENT (BEAKER) (test 11 % gfht=003) EOSINOPHILS RELATIVE PERCENT (BEAKER) (test 1 % gxxk=495) BASOPHILS RELATIVE PERCENT (BEAKER) (test 1 % lmmd=358) NEUTROPHILS ABSOLUTE COUNT (BEAKER) (test 4.56 K/ L 1.78-5.38 oayw=730) LYMPHOCYTES ABSOLUTE COUNT (BEAKER) (test 2.11 K/ L 1.32-3.57 zdfn=220) MONOCYTES ABSOLUTE COUNT (BEAKER) (test 0.89 K/ L 0.30-0.82 iqih=993) EOSINOPHILS ABSOLUTE COUNT (BEAKER) (test 0.11 K/ L 0.04-0.54 cagf=440) BASOPHILS ABSOLUTE COUNT (BEAKER) (test 0.08 K/ L 0.01-0.08 oxzl=387) IMMATURE GRANULOCYTES-RELATIVE PERCENT (BEAKER) 0 % 0-1 (test nnxx=8976) PERIPHERAL BLOOD SMEAR - PATHOLOGIST [id number] 10:04:00 Test Item Value Reference Range Comments PERIPHERAL SMR REVIEW (BEAKER) Thrombocytosis. No circulating (test jokk=3847) blasts or increased schistocytes. Clinical follow up recommended. [id number] (BEAKER) Enoch Saba (test bvmg=3519) Miladis(electronic signature) [id number] 06:02:00 Test Item Value Reference Range Comments PHOSPHORUS (BEAKER) (test ghkk=567) 3.3 mg/dL 2.3-4.7 [id number] 06:02:00 Test Item Value Reference Range Comments MAGNESIUM (BEAKER) (test qwqf=761) 2.0 mg/dL 1.6-2.6 BASIC METABOLIC [id number] 06:02:00 Test Item Value Reference Range Comments SODIUM (BEAKER) (test 132 meq/L 136-145 rkii=571) POTASSIUM (BEAKER) (test 3.7 meq/L 3.5-5.1 uktq=277) CHLORIDE (BEAKER) (test 102 meq/L 98-107 yezh=027) CO2 (BEAKER) (test 22 meq/L 22-29 ummu=408) BLOOD UREA NITROGEN 11 mg/dL 7-21 (BEAKER) (test fpci=463) CREATININE (BEAKER) (test 0.52 mg/dL 0.57-1.25 cvln=705) GLUCOSE RANDOM (BEAKER) 76 mg/dL 70-105 (test cahs=335) CALCIUM (BEAKER) (test 9.4 mg/dL 8.4-10.2 sojm=303) EGFR (BEAKER) (test 178 mL/min/1.73 sq m ESTIMATED GFR IS NOT eucz=6737) ACCURATE CREATININE CLEARANCE IN PREDICTING GLOMERULAR FILTRATION RATE. ESTIMATED GFR IS NOT APPLICABLE FOR DIALYSIS PATIENTS. VITAMIN B12 AND [id number] 12:22:00 Test Item Value Reference Range Comments VITAMIN B12 (BEAKER) (test wjaq=809) 527 pg/mL 213-816 FOLATE (BEAKER) (test clku=587) 12.3 ng/mL >=7.0 [id number] 07:34:00 Test Item Value Reference Range Comments LIPASE (BEAKER) (test vwzq=130) 1107 U/L 8-78 BASIC METABOLIC [id number] 07:32:00 Test Item Value Reference Range Comments SODIUM (BEAKER) (test 134 meq/L 136-145 qutc=743) POTASSIUM (BEAKER) (test 3.7 meq/L 3.5-5.1 iffr=665) CHLORIDE (BEAKER) (test 103 meq/L 98-107 lsdv=919) CO2 (BEAKER) (test 20 meq/L 22-29 uqcq=439) BLOOD UREA NITROGEN 10 mg/dL 7-21 (BEAKER) (test eczu=366) CREATININE (BEAKER) (test 0.59 mg/dL 0.57-1.25 dfys=329) GLUCOSE RANDOM (BEAKER) 96 mg/dL 70-105 (test jmcv=708) CALCIUM (BEAKER) (test 9.7 mg/dL 8.4-10.2 hhzx=981) EGFR (BEAKER) (test 154 mL/min/1.73 sq m ESTIMATED GFR IS NOT enaf=5359) ACCURATE CREATININE CLEARANCE IN PREDICTING GLOMERULAR FILTRATION RATE. ESTIMATED GFR IS NOT APPLICABLE FOR DIALYSIS PATIENTS. [id number] 07:32:00 Test Item Value Reference Range Comments MAGNESIUM (BEAKER) (test bfmj=890) 1.9 mg/dL 1.6-2.6 [id number] 07:32:00 Test Item Value Reference Range Comments PHOSPHORUS (BEAKER) (test ybnf=557) 3.4 mg/dL 2.3-4.7 CBC W/PLT COUNT & AUTO [id number] 06:44:00 Test Item Value Reference Range Comments WHITE BLOOD CELL COUNT (BEAKER) (test bmci=573) 12.1 K/ L 3.5-10.5 RED BLOOD CELL COUNT (BEAKER) (test ifna=282) 4.34 M/ L 4.63-6.08 HEMOGLOBIN (BEAKER) (test qrnl=130) 13.1 GM/DL 13.7-17.5 HEMATOCRIT (BEAKER) (test jgec=466) 39.2 % 40.1-51.0 MEAN CORPUSCULAR VOLUME (BEAKER) (test jfkz=893) 90.3 fL 79.0-92.2 MEAN CORPUSCULAR HEMOGLOBIN (BEAKER) (test 30.2 pg 25.7-32.2 kogz=709) MEAN CORPUSCULAR HEMOGLOBIN CONC (BEAKER) (test 33.4 GM/DL 32.3-36.5 ezky=813) RED CELL DISTRIBUTION WIDTH (BEAKER) (test 14.9 % 11.6-14.4 nfsx=268) PLATELET COUNT (BEAKER) (test wkcr=712) 636 K/CU MM 150-450 MEAN PLATELET VOLUME (BEAKER) (test fslc=497) 9.5 fL 9.4-12.4 NUCLEATED RED BLOOD CELLS (BEAKER) (test 0 /100 WBC 0-0 ugrv=865) NEUTROPHILS RELATIVE PERCENT (BEAKER) (test 72 % bnyt=911) LYMPHOCYTES RELATIVE PERCENT (BEAKER) (test 15 % yvvn=994) MONOCYTES RELATIVE PERCENT (BEAKER) (test 11 % rvtx=785) EOSINOPHILS RELATIVE PERCENT (BEAKER) (test 0 % mxww=621) BASOPHILS RELATIVE PERCENT (BEAKER) (test 0 % zico=172) NEUTROPHILS ABSOLUTE COUNT (BEAKER) (test 8.72 K/ L 1.78-5.38 mlfx=391) LYMPHOCYTES ABSOLUTE COUNT (BEAKER) (test 1.87 K/ L 1.32-3.57 azsw=443) MONOCYTES ABSOLUTE COUNT (BEAKER) (test 1.38 K/ L 0.30-0.82 odac=764) EOSINOPHILS ABSOLUTE COUNT (BEAKER) (test 0.02 K/ L 0.04-0.54 fsnw=726) BASOPHILS ABSOLUTE COUNT (BEAKER) (test 0.05 K/ L 0.01-0.08 nenn=378) IMMATURE GRANULOCYTES-RELATIVE PERCENT (BEAKER) 1 % 0-1 (test yapx=1354) FINE NEEDLE ASPIRATION BY [id number] 13:21:00Medical Cytology Report Case: [id number] Authorizing Provider: Bessy Hernandez MD Collected: 2017 1743 Ordering Location: [address] Received : 09/08/2017 1814 Service Pathologist: Mir Anthony MD Specimen: Pancreas PANCREAS HEAD CYSTICLESION FNA BY CLINICIAN ( CYTOSPINS AND CELL BLOCK OF ASPIRATE): - NO MALIGNANT CELLS IDENTIFIED - The mucin stain shows focal weak staining Signing Pathologist Direct Phone Line : [phone] signed by Mir Anthony MD on 09/11/2017 at 1:21 PMThe cell block shows non-inflammed pancreatic acinar tissue.[id number], 01893, 03432(4.9 X 4.8 cm) Cystic lesion in the pancreatic headPANCREAS HEAD CYSTIC LESION FNA25 mls in cytorich red; 4 cytospins, 1 mucin stain, cell blockCollected: [id number]: [id number] Speciality Hospital, Department of Pathology, [address] [place] [id number], [facility], [address] [place] [address], [id number] 10:07:00 Test Item Value Reference Range Comments PARTIAL THROMBOPLASTIN TIME (BEAKER) (test 44.5 seconds 22.5-36.0 upgh=061) BASIC METABOLIC [id number] 05:56:00 Test Item Value Reference Range Comments SODIUM (BEAKER) (test 138 meq/L 136-145 rqet=511) POTASSIUM (BEAKER) (test 3.7 meq/L 3.5-5.1 gchi=324) CHLORIDE (BEAKER) (test 105 meq/L 98-107 gthr=604) CO2 (BEAKER) (test 25 meq/L 22-29 hnwn=001) BLOOD UREA NITROGEN 7 mg/dL 7-21 (BEAKER) (test uygs=184) CREATININE (BEAKER) (test 0.62 mg/dL 0.57-1.25 unzb=306) GLUCOSE RANDOM (BEAKER) 120 mg/dL 70-105 (test yagv=064) CALCIUM (BEAKER) (test 8.7 mg/dL 8.4-10.2 tiiy=020) EGFR (BEAKER) (test 145 mL/min/1.73 sq m ESTIMATED GFR IS NOT vgfi=4238) ACCURATE CREATININE CLEARANCE IN PREDICTING GLOMERULAR FILTRATION RATE. ESTIMATED GFR IS NOT APPLICABLE FOR DIALYSIS PATIENTS. CBC W/PLT COUNT & AUTO [id number] 05:42:00 Test Item Value Reference Range Comments WHITE BLOOD CELL COUNT (BEAKER) (test phim=969) 4.6 K/ L 3.5-10.5 RED BLOOD CELL COUNT (BEAKER) (test dztv=135) 3.83 M/ L 4.63-6.08 HEMOGLOBIN (BEAKER) (test ebwx=602) 11.7 GM/DL 13.7-17.5 HEMATOCRIT (BEAKER) (test cyqd=373) 34.7 % 40.1-51.0 MEAN CORPUSCULAR VOLUME (BEAKER) (test nnng=684) 90.6 fL 79.0-92.2 MEAN CORPUSCULAR HEMOGLOBIN (BEAKER) (test 30.5 pg 25.7-32.2 itfz=161) MEAN CORPUSCULAR HEMOGLOBIN CONC (BEAKER) (test 33.7 GM/DL 32.3-36.5 msuv=898) RED CELL DISTRIBUTION WIDTH (BEAKER) (test 14.3 % 11.6-14.4 sdwl=614) PLATELET COUNT (BEAKER) (test bhex=686) 378 K/CU MM 150-450 MEAN PLATELET VOLUME (BEAKER) (test jssx=567) 9.0 fL 9.4-12.4 NUCLEATED RED BLOOD CELLS (BEAKER) (test 0 /100 WBC 0-0 azmb=307) NEUTROPHILS RELATIVE PERCENT (BEAKER) (test 39 % wybj=069) LYMPHOCYTES RELATIVE PERCENT (BEAKER) (test 43 % aydt=003) MONOCYTES RELATIVE PERCENT (BEAKER) (test 12 % lrii=414) EOSINOPHILS RELATIVE PERCENT (BEAKER) (test 5 % ukzh=672) BASOPHILS RELATIVE PERCENT (BEAKER) (test 1 % vhbb=874) NEUTROPHILS ABSOLUTE COUNT (BEAKER) (test 1.81 K/ L 1.78-5.38 ehou=269) LYMPHOCYTES ABSOLUTE COUNT (BEAKER) (test 2.01 K/ L 1.32-3.57 wsnl=001) MONOCYTES ABSOLUTE COUNT (BEAKER) (test 0.55 K/ L 0.30-0.82 xnxm=433) EOSINOPHILS ABSOLUTE COUNT (BEAKER) (test 0.21 K/ L 0.04-0.54 jzxd=818) BASOPHILS ABSOLUTE COUNT (BEAKER) (test 0.05 K/ L 0.01-0.08 auau=465) IMMATURE GRANULOCYTES-RELATIVE PERCENT (BEAKER) 0 % 0-1 (test qrxi=2622) FINE NEEDLE ASPIRATE (FNA) [id number] 20:00:00 Test Item Value Reference Range Comments CYTOLOGY RESULT POINTER (BEAKER) (test See Separate Report jviu=1673) [id number] 12:16:00 Test Item Value Reference Range Comments PARTIAL THROMBOPLASTIN TIME (BEAKER) (test 84.6 seconds 22.5-36.0 enoi=342) BASIC METABOLIC [id number] 05:21:00 Test Item Value Reference Range Comments SODIUM (BEAKER) (test 126 meq/L 136-145 mpwg=936) POTASSIUM (BEAKER) (test 2.8 meq/L 3.5-5.1 ogef=079) CHLORIDE (BEAKER) (test 99 meq/L 98-107 jbue=550) CO2 (BEAKER) (test 20 meq/L 22-29 qvri=814) BLOOD UREA NITROGEN 3 mg/dL 7-21 (BEAKER) (test raqp=847) CREATININE (BEAKER) (test 0.44 mg/dL 0.57-1.25 xjid=302) GLUCOSE RANDOM (BEAKER) 75 mg/dL 70-105 (test cuhg=994) CALCIUM (BEAKER) (test 6.8 mg/dL 8.4-10.2 xhmj=375) EGFR (BEAKER) (test 216 mL/min/1.73 sq m ESTIMATED GFR IS NOT adsp=3813) ACCURATE CREATININE CLEARANCE IN PREDICTING GLOMERULAR FILTRATION RATE. ESTIMATED GFR IS NOT APPLICABLE FOR DIALYSIS PATIENTS. [id number] 05:13:00 Test Item Value Reference Range Comments PARTIAL THROMBOPLASTIN TIME (BEAKER) (test 110.2 seconds 22.5-36.0 xilm=416) CBC W/PLT COUNT & AUTO [id number] 04:45:00 Test Item Value Reference Range Comments WHITE BLOOD CELL COUNT (BEAKER) (test wrpq=928) 4.4 K/ L 3.5-10.5 RED BLOOD CELL COUNT (BEAKER) (test lzje=992) 3.25 M/ L 4.63-6.08 HEMOGLOBIN (BEAKER) (test qrvw=022) 10.1 GM/DL 13.7-17.5 HEMATOCRIT (BEAKER) (test nwso=880) 29.9 % 40.1-51.0 MEAN CORPUSCULAR VOLUME (BEAKER) (test dcct=234) 92.0 fL 79.0-92.2 MEAN CORPUSCULAR HEMOGLOBIN (BEAKER) (test 31.1 pg 25.7-32.2 hrsx=073) MEAN CORPUSCULAR HEMOGLOBIN CONC (BEAKER) (test 33.8 GM/DL 32.3-36.5 xlto=981) RED CELL DISTRIBUTION WIDTH (BEAKER) (test 14.5 % 11.6-14.4 cxsh=132) PLATELET COUNT (BEAKER) (test ikvy=030) 297 K/CU MM 150-450 MEAN PLATELET VOLUME (BEAKER) (test qlgx=163) 9.1 fL 9.4-12.4 NUCLEATED RED BLOOD CELLS (BEAKER) (test 0 /100 WBC 0-0 gigd=587) NEUTROPHILS RELATIVE PERCENT (BEAKER) (test 44 % nzoo=474) LYMPHOCYTES RELATIVE PERCENT (BEAKER) (test 40 % wpsw=693) MONOCYTES RELATIVE PERCENT (BEAKER) (test 11 % fmrl=480) EOSINOPHILS RELATIVE PERCENT (BEAKER) (test 4 % dlzq=107) BASOPHILS RELATIVE PERCENT (BEAKER) (test 1 % udua=071) NEUTROPHILS ABSOLUTE COUNT (BEAKER) (test 1.96 K/ L 1.78-5.38 wcoe=079) LYMPHOCYTES ABSOLUTE COUNT (BEAKER) (test 1.77 K/ L 1.32-3.57 wcjr=544) MONOCYTES ABSOLUTE COUNT (BEAKER) (test 0.49 K/ L 0.30-0.82 bqsh=107) EOSINOPHILS ABSOLUTE COUNT (BEAKER) (test 0.16 K/ L 0.04-0.54 txdo=827) BASOPHILS ABSOLUTE COUNT (BEAKER) (test 0.05 K/ L 0.01-0.08 yuxm=286) IMMATURE GRANULOCYTES-RELATIVE PERCENT (BEAKER) 0 % 0-1 (test vtbk=9374) [id number] 21:32:00 Test Item Value Reference Range Comments PARTIAL THROMBOPLASTIN TIME (BEAKER) (test 118.1 seconds 22.5-36.0 rjua=097) BASIC METABOLIC [id number] 14:23:00 Test Item Value Reference Range Comments SODIUM (BEAKER) (test 139 meq/L 136-145 byvg=543) POTASSIUM (BEAKER) (test 3.6 meq/L 3.5-5.1 tlxn=980) CHLORIDE (BEAKER) (test 103 meq/L 98-107 evpw=655) CO2 (BEAKER) (test 29 meq/L 22-29 falg=781) BLOOD UREA NITROGEN 3 mg/dL 7-21 (BEAKER) (test gmxr=687) CREATININE (BEAKER) (test 0.54 mg/dL 0.57-1.25 wsgi=837) GLUCOSE RANDOM (BEAKER) 108 mg/dL 70-105 (test wmez=944) CALCIUM (BEAKER) (test 8.6 mg/dL 8.4-10.2 mabb=232) EGFR (BEAKER) (test 170 mL/min/1.73 sq m ESTIMATED GFR IS NOT kofk=0502) ACCURATE CREATININE CLEARANCE IN PREDICTING GLOMERULAR FILTRATION RATE. ESTIMATED GFR IS NOT APPLICABLE FOR DIALYSIS PATIENTS. [id number] 14:06:00 Test Item Value Reference Range Comments PARTIAL THROMBOPLASTIN TIME (BEAKER) (test 66.8 seconds 22.5-36.0 xrvr=983) CBC W/PLT COUNT & AUTO [id number] 13:57:00 Test Item Value Reference Range Comments WHITE BLOOD CELL COUNT (BEAKER) (test jxml=628) 4.6 K/ L 3.5-10.5 RED BLOOD CELL COUNT (BEAKER) (test adjg=524) 3.95 M/ L 4.63-6.08 HEMOGLOBIN (BEAKER) (test wjgm=500) 11.9 GM/DL 13.7-17.5 HEMATOCRIT (BEAKER) (test nvpq=241) 36.5 % 40.1-51.0 MEAN CORPUSCULAR VOLUME (BEAKER) (test llht=811) 92.4 fL 79.0-92.2 MEAN CORPUSCULAR HEMOGLOBIN (BEAKER) (test 30.1 pg 25.7-32.2 glfr=293) MEAN CORPUSCULAR HEMOGLOBIN CONC (BEAKER) (test 32.6 GM/DL 32.3-36.5 jnic=174) RED CELL DISTRIBUTION WIDTH (BEAKER) (test 14.2 % 11.6-14.4 ifli=856) PLATELET COUNT (BEAKER) (test jfnh=399) 347 K/CU MM 150-450 MEAN PLATELET VOLUME (BEAKER) (test rndn=925) 9.2 fL 9.4-12.4 NUCLEATED RED BLOOD CELLS (BEAKER) (test 0 /100 WBC 0-0 eqkx=081) NEUTROPHILS RELATIVE PERCENT (BEAKER) (test 44 % lgbl=034) LYMPHOCYTES RELATIVE PERCENT (BEAKER) (test 37 % fdif=489) MONOCYTES RELATIVE PERCENT (BEAKER) (test 13 % jjut=175) EOSINOPHILS RELATIVE PERCENT (BEAKER) (test 5 % xzqa=687) BASOPHILS RELATIVE PERCENT (BEAKER) (test 1 % rhtc=266) NEUTROPHILS ABSOLUTE COUNT (BEAKER) (test 1.99 K/ L 1.78-5.38 naea=484) LYMPHOCYTES ABSOLUTE COUNT (BEAKER) (test 1.69 K/ L 1.32-3.57 ubls=319) MONOCYTES ABSOLUTE COUNT (BEAKER) (test 0.61 K/ L 0.30-0.82 nvvo=030) EOSINOPHILS ABSOLUTE COUNT (BEAKER) (test 0.21 K/ L 0.04-0.54 fgmq=579) BASOPHILS ABSOLUTE COUNT (BEAKER) (test 0.05 K/ L 0.01-0.08 aarz=760) IMMATURE GRANULOCYTES-RELATIVE PERCENT (BEAKER) 0 % 0-1 (test gwwa=8150) BASIC METABOLIC [id number] 07:03:00 Test Item Value Reference Range Comments SODIUM (BEAKER) (test 140 meq/L 136-145 riea=454) POTASSIUM (BEAKER) (test 3.4 meq/L 3.5-5.1 vxbg=465) CHLORIDE (BEAKER) (test 100 meq/L 98-107 uxpv=306) CO2 (BEAKER) (test 30 meq/L 22-29 dlnj=934) BLOOD UREA NITROGEN 3 mg/dL 7-21 (BEAKER) (test axqq=401) CREATININE (BEAKER) (test 0.56 mg/dL 0.57-1.25 lgcl=455) GLUCOSE RANDOM (BEAKER) 102 mg/dL 70-105 (test aznv=912) CALCIUM (BEAKER) (test 9.2 mg/dL 8.4-10.2 bjlm=052) EGFR (BEAKER) (test 163 mL/min/1.73 sq m ESTIMATED GFR IS NOT dapr=1722) ACCURATE CREATININE CLEARANCE IN PREDICTING GLOMERULAR FILTRATION RATE. ESTIMATED GFR IS NOT APPLICABLE FOR DIALYSIS PATIENTS. [id number] 06:47:00 Test Item Value Reference Range Comments PARTIAL THROMBOPLASTIN TIME (BEAKER) (test 46.7 seconds 22.5-36.0 auwp=732) [id number] 00:50:00 Test Item Value Reference Range Comments PARTIAL THROMBOPLASTIN TIME (BEAKER) (test 53.5 seconds 22.5-36.0 xiyq=329) [id number] 17:34:00 Test Item Value Reference Range Comments PARTIAL THROMBOPLASTIN TIME (BEAKER) (test 45.8 seconds 22.5-36.0 gpnc=389) [id number] 08:32:00 Test Item Value Reference Range Comments PARTIAL THROMBOPLASTIN TIME (BEAKER) (test 38.7 seconds 22.5-36.0 yych=684) Prior to initiating heparinBASIC METABOLIC [id number] 06:05:00 Test Item Value Reference Range Comments SODIUM (BEAKER) (test 136 meq/L 136-145 qpzr=460) POTASSIUM (BEAKER) (test 3.3 meq/L 3.5-5.1 szmr=996) CHLORIDE (BEAKER) (test 102 meq/L 98-107 bbvt=720) CO2 (BEAKER) (test 26 meq/L 22-29 sckp=865) BLOOD UREA NITROGEN 2 mg/dL 7-21 (BEAKER) (test ucsq=215) CREATININE (BEAKER) (test 0.55 mg/dL 0.57-1.25 squb=715) GLUCOSE RANDOM (BEAKER) 124 mg/dL 70-105 (test sfrt=493) CALCIUM (BEAKER) (test 8.0 mg/dL 8.4-10.2 aqiy=722) EGFR (BEAKER) (test 167 mL/min/1.73 sq m ESTIMATED GFR IS NOT wgdu=0309) ACCURATE CREATININE CLEARANCE IN PREDICTING GLOMERULAR FILTRATION RATE. ESTIMATED GFR IS NOT APPLICABLE FOR DIALYSIS PATIENTS. BLOOD [id number] 06:00:00 Test Item Value Reference Range Comments CULTURE (BEAKER) (test jwex=1038) No growth in 5 days BLOOD [id number] 06:00:00 Test Item Value Reference Range Comments CULTURE (BEAKER) (test eohq=0105) No growth in 5 days [id number] 03:55:00 Test Item Value Reference Range Comments PHOSPHORUS (BEAKER) (test vxhp=321) 2.8 mg/dL 2.3-4.7 [id number] 03:55:00 Test Item Value Reference Range Comments MAGNESIUM (BEAKER) (test vksw=369) 1.3 mg/dL 1.6-2.6 BASIC METABOLIC [id number] 03:55:00 Test Item Value Reference Range Comments SODIUM (BEAKER) (test 137 meq/L 136-145 iinn=860) POTASSIUM (BEAKER) (test 3.2 meq/L 3.5-5.1 iejv=161) CHLORIDE (BEAKER) (test 103 meq/L 98-107 sfox=811) CO2 (BEAKER) (test 22 meq/L 22-29 mjnu=493) BLOOD UREA NITROGEN 3 mg/dL 7-21 (BEAKER) (test bgec=073) CREATININE (BEAKER) (test 0.51 mg/dL 0.57-1.25 ogdx=092) GLUCOSE RANDOM (BEAKER) 65 mg/dL 70-105 (test wkok=159) CALCIUM (BEAKER) (test 8.0 mg/dL 8.4-10.2 vglh=165) EGFR (BEAKER) (test 182 mL/min/1.73 sq m ESTIMATED GFR IS NOT pnho=2020) ACCURATE CREATININE CLEARANCE IN PREDICTING GLOMERULAR FILTRATION RATE. ESTIMATED GFR IS NOT APPLICABLE FOR DIALYSIS PATIENTS. [id number] 03:55:00 Test Item Value Reference Range Comments LIPASE (BEAKER) (test xali=133) 210 U/L 8-78 CBC W/PLT COUNT & AUTO [id number] 03:37:00 Test Item Value Reference Range Comments WHITE BLOOD CELL COUNT (BEAKER) (test asvq=216) 6.1 K/ L 3.5-10.5 RED BLOOD CELL COUNT (BEAKER) (test czrm=648) 3.63 M/ L 4.63-6.08 HEMOGLOBIN (BEAKER) (test zqve=243) 11.1 GM/DL 13.7-17.5 HEMATOCRIT (BEAKER) (test hesu=397) 33.0 % 40.1-51.0 MEAN CORPUSCULAR VOLUME (BEAKER) (test xqhp=607) 90.9 fL 79.0-92.2 MEAN CORPUSCULAR HEMOGLOBIN (BEAKER) (test 30.6 pg 25.7-32.2 iwbc=594) MEAN CORPUSCULAR HEMOGLOBIN CONC (BEAKER) (test 33.6 GM/DL 32.3-36.5 bjxe=993) RED CELL DISTRIBUTION WIDTH (BEAKER) (test 14.3 % 11.6-14.4 eoov=413) PLATELET COUNT (BEAKER) (test vycu=035) 262 K/CU MM 150-450 MEAN PLATELET VOLUME (BEAKER) (test axxs=371) 9.1 fL 9.4-12.4 NUCLEATED RED BLOOD CELLS (BEAKER) (test 0 /100 WBC 0-0 grph=759) NEUTROPHILS RELATIVE PERCENT (BEAKER) (test 69 % fvcd=344) LYMPHOCYTES RELATIVE PERCENT (BEAKER) (test 17 % ufoa=957) MONOCYTES RELATIVE PERCENT (BEAKER) (test 10 % wbkf=703) EOSINOPHILS RELATIVE PERCENT (BEAKER) (test 3 % bimp=091) BASOPHILS RELATIVE PERCENT (BEAKER) (test 0 % culr=678) NEUTROPHILS ABSOLUTE COUNT (BEAKER) (test 4.21 K/ L 1.78-5.38 posd=277) LYMPHOCYTES ABSOLUTE COUNT (BEAKER) (test 1.04 K/ L 1.32-3.57 zovj=510) MONOCYTES ABSOLUTE COUNT (BEAKER) (test 0.60 K/ L 0.30-0.82 qmvr=377) EOSINOPHILS ABSOLUTE COUNT (BEAKER) (test 0.18 K/ L 0.04-0.54 sjpc=086) BASOPHILS ABSOLUTE COUNT (BEAKER) (test 0.02 K/ L 0.01-0.08 iyln=454) IMMATURE GRANULOCYTES-RELATIVE PERCENT (BEAKER) 1 % 0-1 (test eqqh=2127) CT, ABDOMEN - PELVIS, PANCREAS [id number] 00:22:00Reason for exam:-&gt ;pancreatitisFINAL REPORT CT, ABDOMEN [...] Verified Date/ Time: 09/04/2017 00:22:52 Reading Location: [address] Reading Room [id number] 06:00:00 Test Item Value Reference Range Comments MAGNESIUM (BEAKER) (test 1.6 mg/dL 1.6-2.6 Specimen slightly hemolyzed lrim=190) [id number] 06:00:00 Test Item Value Reference Range Comments PHOSPHORUS (BEAKER) (test 3.4 mg/dL 2.3-4.7 Specimen slightly hemolyzed seow=152) BASIC METABOLIC [id number] 06:00:00 Test Item Value Reference Range Comments SODIUM (BEAKER) (test 132 meq/L 136-145 rpym=347) POTASSIUM (BEAKER) (test 3.9 meq/L 3.5-5.1 Specimen slightly mitq=365) hemolyzed CHLORIDE (BEAKER) (test 101 meq/L 98-107 tsra=770) CO2 (BEAKER) (test 22 meq/L 22-29 pwyw=296) BLOOD UREA NITROGEN 7 mg/dL 7-21 (BEAKER) (test jktm=621) CREATININE (BEAKER) (test 0.49 mg/dL 0.57-1.25 Specimen slightly fbad=172) hemolyzed GLUCOSE RANDOM (BEAKER) 59 mg/dL 70-105 (test thpj=689) CALCIUM (BEAKER) (test 8.1 mg/dL 8.4-10.2 qbzy=936) EGFR (BEAKER) (test 190 mL/min/1.73 sq m ESTIMATED GFR IS NOT eqlq=3055) ACCURATE CREATININE CLEARANCE IN PREDICTING GLOMERULAR FILTRATION RATE. ESTIMATED GFR IS NOT APPLICABLE FOR DIALYSIS PATIENTS. HEPATIC FUNCTION [id number] 06:00:00 Test Item Value Reference Range Comments TOTAL PROTEIN (BEAKER) (test 5.7 gm/dL 6.0-8.3 Specimen slightly hemolyzed pljv=886) ALBUMIN (BEAKER) (test 3.0 g/dL 3.5-5.0 Specimen slightly hemolyzed txtr=0531) BILIRUBIN TOTAL (BEAKER) (test 1.2 mg/dL 0.2-1.2 Specimen slightly hemolyzed npbh=070) BILIRUBIN DIRECT (BEAKER) (test 0.4 mg/dL 0.1-0.5 Specimen slightly hemolyzed pljr=722) ALKALINE PHOSPHATASE (BEAKER) 62 U/L 40-150 (test vdav=638) AST (SGOT) (BEAKER) (test 18 U/L 5-34 Specimen slightly hemolyzed zpzx=539) ALT (SGPT) (BEAKER) (test < U/L 6-55 Specimen slightly hemolyzed gxea=400) CBC W/PLT COUNT & AUTO [id number] 05:43:00 Test Item Value Reference Range Comments WHITE BLOOD CELL COUNT (BEAKER) (test paem=592) 8.4 K/ L 3.5-10.5 RED BLOOD CELL COUNT (BEAKER) (test bfml=815) 3.68 M/ L 4.63-6.08 HEMOGLOBIN (BEAKER) (test irhl=807) 11.6 GM/DL 13.7-17.5 HEMATOCRIT (BEAKER) (test juhs=618) 34.4 % 40.1-51.0 MEAN CORPUSCULAR VOLUME (BEAKER) (test gmmi=855) 93.5 fL 79.0-92.2 MEAN CORPUSCULAR HEMOGLOBIN (BEAKER) (test 31.5 pg 25.7-32.2 mduj=007) MEAN CORPUSCULAR HEMOGLOBIN CONC (BEAKER) (test 33.7 GM/DL 32.3-36.5 uebz=186) RED CELL DISTRIBUTION WIDTH (BEAKER) (test 14.6 % 11.6-14.4 qitt=346) PLATELET COUNT (BEAKER) (test hhes=245) 221 K/CU MM 150-450 MEAN PLATELET VOLUME (BEAKER) (test gqeo=297) 9.5 fL 9.4-12.4 NUCLEATED RED BLOOD CELLS (BEAKER) (test 0 /100 WBC 0-0 ovem=899) NEUTROPHILS RELATIVE PERCENT (BEAKER) (test 75 % olkp=869) LYMPHOCYTES RELATIVE PERCENT (BEAKER) (test 14 % bvoj=164) MONOCYTES RELATIVE PERCENT (BEAKER) (test 10 % vkis=904) EOSINOPHILS RELATIVE PERCENT (BEAKER) (test 1 % zofb=012) BASOPHILS RELATIVE PERCENT (BEAKER) (test 0 % lsht=944) NEUTROPHILS ABSOLUTE COUNT (BEAKER) (test 6.27 K/ L 1.78-5.38 nnwr=123) LYMPHOCYTES ABSOLUTE COUNT (BEAKER) (test 1.16 K/ L 1.32-3.57 jbtf=157) MONOCYTES ABSOLUTE COUNT (BEAKER) (test 0.87 K/ L 0.30-0.82 yrzr=230) EOSINOPHILS ABSOLUTE COUNT (BEAKER) (test 0.07 K/ L 0.04-0.54 qzwz=182) BASOPHILS ABSOLUTE COUNT (BEAKER) (test 0.03 K/ L 0.01-0.08 wcar=638) IMMATURE GRANULOCYTES-RELATIVE PERCENT (BEAKER) 0 % 0-1 (test jicy=0620) POCT-GLUCOSE [id number] 07:30:00 Test Item Value Reference Range Comments POC-GLUCOSE METER (BEAKER) 140 mg/dL 70-110 TESTED AT [address] (test bglr=6096) [place] [id number] POCT-GLUCOSE [id number] 07:30:00 Test Item Value Reference Range Comments POC-GLUCOSE METER (BEAKER) 59 mg/dL 70-110 TESTED AT [address] (test envc=1729) [place] [id number] 05:16:00 Test Item Value Reference Range Comments MAGNESIUM (BEAKER) (test 1.7 mg/dL 1.6-2.6 Specimen slightly hemolyzed sbjy=479) [id number] 05:16:00 Test Item Value Reference Range Comments PHOSPHORUS (BEAKER) (test 3.7 mg/dL 2.3-4.7 Specimen slightly hemolyzed zisu=847) BASIC METABOLIC [id number] 05:16:00 Test Item Value Reference Range Comments SODIUM (BEAKER) (test 136 meq/L 136-145 mtmp=379) POTASSIUM (BEAKER) (test 4.1 meq/L 3.5-5.1 Specimen slightly amnw=711) hemolyzed CHLORIDE (BEAKER) (test 105 meq/L 98-107 elwg=202) CO2 (BEAKER) (test 21 meq/L 22-29 ovkm=616) BLOOD UREA NITROGEN 12 mg/dL 7-21 (BEAKER) (test npod=540) CREATININE (BEAKER) (test 0.62 mg/dL 0.57-1.25 Specimen slightly yuun=807) hemolyzed GLUCOSE RANDOM (BEAKER) 65 mg/dL 70-105 (test eogm=921) CALCIUM (BEAKER) (test 8.4 mg/dL 8.4-10.2 axhi=304) EGFR (BEAKER) (test 145 mL/min/1.73 sq m ESTIMATED GFR IS NOT nxqe=6798) ACCURATE CREATININE CLEARANCE IN PREDICTING GLOMERULAR FILTRATION RATE. ESTIMATED GFR IS NOT APPLICABLE FOR DIALYSIS PATIENTS. HEPATIC FUNCTION [id number] 05:16:00 Test Item Value Reference Range Comments TOTAL PROTEIN (BEAKER) (test 5.9 gm/dL 6.0-8.3 Specimen slightly hemolyzed jptk=091) ALBUMIN (BEAKER) (test 3.3 g/dL 3.5-5.0 Specimen slightly hemolyzed ezpa=5384) BILIRUBIN TOTAL (BEAKER) (test 1.4 mg/dL 0.2-1.2 Specimen slightly hemolyzed spdv=589) BILIRUBIN DIRECT (BEAKER) (test 0.5 mg/dL 0.1-0.5 Specimen slightly hemolyzed npei=169) ALKALINE PHOSPHATASE (BEAKER) 66 U/L 40-150 (test nfus=410) AST (SGOT) (BEAKER) (test 16 U/L 5-34 Specimen slightly hemolyzed oejw=960) ALT (SGPT) (BEAKER) (test 6 U/L 6-55 Specimen slightly hemolyzed amhc=427) CBC W/PLT COUNT & AUTO [id number] 04:45:00 Test Item Value Reference Range Comments WHITE BLOOD CELL COUNT (BEAKER) (test lshs=114) 9.1 K/ L 3.5-10.5 RED BLOOD CELL COUNT (BEAKER) (test ubyd=478) 4.04 M/ L 4.63-6.08 HEMOGLOBIN (BEAKER) (test eevy=088) 12.3 GM/DL 13.7-17.5 HEMATOCRIT (BEAKER) (test ygmt=208) 38.1 % 40.1-51.0 MEAN CORPUSCULAR VOLUME (BEAKER) (test jfsl=997) 94.3 fL 79.0-92.2 MEAN CORPUSCULAR HEMOGLOBIN (BEAKER) (test 30.4 pg 25.7-32.2 edsw=384) MEAN CORPUSCULAR HEMOGLOBIN CONC (BEAKER) (test 32.3 GM/DL 32.3-36.5 nkey=057) RED CELL DISTRIBUTION WIDTH (BEAKER) (test 15.7 % 11.6-14.4 ihvf=998) PLATELET COUNT (BEAKER) (test jjxs=174) 243 K/CU MM 150-450 MEAN PLATELET VOLUME (BEAKER) (test mowa=994) 9.5 fL 9.4-12.4 NUCLEATED RED BLOOD CELLS (BEAKER) (test 0 /100 WBC 0-0 thjx=115) NEUTROPHILS RELATIVE PERCENT (BEAKER) (test 72 % tgxv=388) LYMPHOCYTES RELATIVE PERCENT (BEAKER) (test 16 % lgrw=967) MONOCYTES RELATIVE PERCENT (BEAKER) (test 10 % zcbq=305) EOSINOPHILS RELATIVE PERCENT (BEAKER) (test 1 % wpfd=169) BASOPHILS RELATIVE PERCENT (BEAKER) (test 0 % whbq=490) NEUTROPHILS ABSOLUTE COUNT (BEAKER) (test 6.58 K/ L 1.78-5.38 mgow=476) LYMPHOCYTES ABSOLUTE COUNT (BEAKER) (test 1.48 K/ L 1.32-3.57 pifq=393) MONOCYTES ABSOLUTE COUNT (BEAKER) (test 0.95 K/ L 0.30-0.82 miee=183) EOSINOPHILS ABSOLUTE COUNT (BEAKER) (test 0.05 K/ L 0.04-0.54 brxi=932) BASOPHILS ABSOLUTE COUNT (BEAKER) (test 0.04 K/ L 0.01-0.08 aqmr=580) IMMATURE GRANULOCYTES-RELATIVE PERCENT (BEAKER) 0 % 0-1 (test dtzm=9707) HEMOGLOBIN [id number] 10:23:00 Test Item Value Reference Range Comments HEMOGLOBIN A1C (BEAKER) (test ezwm=389) 4.7 % 4.3-6.1 U/S, ABDOMINAL, [id number] 09:53:00Abdomen limited area? Add comment if clarification [...] Nelson MDReport Verified Date/Time:09/01/2017 09:53:12 Reading Location: [address] Ultrasound Reading Room SEDIMENTATION [id number] 08:01:00 Test Item Value Reference Range Comments SEDIMENTATION RATE, ERYTHROCYTE (BEAKER) (test 3 mm/HR 0-15 cmhe=315) TSH/FREE T4 IF [id number] 04:12:00 Test Item Value Reference Range Comments THYROID STIMULATING HORMONE (BEAKER) (test 0.36 uIU/mL 0.35-4.94 noog=216) CREATINE KINASE (CK), TOTAL AND [id number] 04:03:00 Test Item Value Reference Range Comments CREATINE KINASE TOTAL (BEAKER) (test vapp=646) 29 U/L 29-200 CREATINE KINASE-MB (BEAKER) (test xart=603) 0.4 ng/mL 0.0-6.6 CREATINE KINASE-MB INDEX (BEAKER) (test mzgf=847) 1.4 % CK-MB Reference Range:<6.7 Normal6.7-10.0 Borderline>10.0 AbnormalTROPONIN [id number] 04:03:00 Test Item Value Reference Range Comments TROPONIN I (BEAKER) (test lkzp=962) < ng/mL 0.00-0.03 Troponin I (TnI) levels [...] failure, acidosis, acute neurological disease, and persistent tachyarrhythmia.[id number] 03:53:00 Test Item Value Reference Range Comments PHOSPHORUS (BEAKER) (test tttx=930) 3.5 mg/dL 2.3-4.7 [id number] 03:53:00 Test Item Value Reference Range Comments MAGNESIUM (BEAKER) (test lrer=002) 1.7 mg/dL 1.6-2.6 BASIC METABOLIC [id number] 03:53:00 Test Item Value Reference Range Comments SODIUM (BEAKER) (test 137 meq/L 136-145 vlyr=687) POTASSIUM (BEAKER) (test 3.8 meq/L 3.5-5.1 fhxz=692) CHLORIDE (BEAKER) (test 105 meq/L 98-107 kwvp=391) CO2 (BEAKER) (test 23 meq/L 22-29 jzbe=449) BLOOD UREA NITROGEN 7 mg/dL 7-21 (BEAKER) (test eejo=868) CREATININE (BEAKER) (test 0.62 mg/dL 0.57-1.25 dmhj=651) GLUCOSE RANDOM (BEAKER) 102 mg/dL 70-105 (test hjya=228) CALCIUM (BEAKER) (test 9.0 mg/dL 8.4-10.2 ksfs=384) EGFR (BEAKER) (test 145 mL/min/1.73 sq m ESTIMATED GFR IS NOT abzv=3481) ACCURATE CREATININE CLEARANCE IN PREDICTING GLOMERULAR FILTRATION RATE. ESTIMATED GFR IS NOT APPLICABLE FOR DIALYSIS PATIENTS. LIPID [id number] 03:53:00 Test Item Value Reference Range Comments TRIGLYCERIDES (BEAKER) (test venh=437) 76 mg/dL CHOLESTEROL (BEAKER) (test cmwr=897) 118 mg/dL HDL CHOLESTEROL (BEAKER) (test cayj=161) 37 mg/dL LDL CHOLESTEROL CALCULATED (BEAKER) (test 66 mg/dL tgxc=250) Triglyceride Reference Range: Low Risk <150 Borderline 150- 199 High Risk 200-499 Very High Risk >=500Cholesterol Reference Range: Low Risk <200 Borderline 200-239 High Risk > 240HDL Cholesterol Reference Range: Low Risk >=60 High Risk <40LDL Cholesterol Reference Range: Optimal <100 Near Optimal 100-129 Borderline 130-159 High 160-189 Very High >=190HEPATIC FUNCTION [id number] 03:53:00 Test Item Value Reference Range Comments TOTAL PROTEIN (BEAKER) (test tzro=982) 6.8 gm/dL 6.0-8.3 ALBUMIN (BEAKER) (test gjyt=9898) 3.9 g/dL 3.5-5.0 BILIRUBIN TOTAL (BEAKER) (test abri=168) 1.2 mg/dL 0.2-1.2 BILIRUBIN DIRECT (BEAKER) (test nlao=792) 0.5 mg/dL 0.1-0.5 ALKALINE PHOSPHATASE (BEAKER) (test nsby=210) 81 U/L 40-150 AST (SGOT) (BEAKER) (test oizm=385) 13 U/L 5-34 ALT (SGPT) (BEAKER) (test vvxd=419) 6 U/L 6-55 [id number] 03:53:00 Test Item Value Reference Range Comments AMYLASE (BEAKER) (test ydkw=139) 383 U/L 25-125 [id number] 03:53:00 Test Item Value Reference Range Comments LIPASE (BEAKER) (test kery=968) 266 U/L 8-78 C-REACTIVE [id number] 03:53:00 Test Item Value Reference Range Comments C-REACTIVE PROTEIN (BEAKER) (test zopc=308) 0.23 mg/dL 0.00-0.50 CBC W/PLT COUNT & AUTO [id number] 03:38:00 Test Item Value Reference Range Comments WHITE BLOOD CELL COUNT (BEAKER) (test jsjq=591) 10.7 K/ L 3.5-10.5 RED BLOOD CELL COUNT (BEAKER) (test zcdm=898) 4.45 M/ L 4.63-6.08 HEMOGLOBIN (BEAKER) (test gbiu=404) 13.6 GM/DL 13.7-17.5 HEMATOCRIT (BEAKER) (test zzqe=035) 40.4 % 40.1-51.0 MEAN CORPUSCULAR VOLUME (BEAKER) (test byfj=017) 90.8 fL 79.0-92.2 MEAN CORPUSCULAR HEMOGLOBIN (BEAKER) (test 30.6 pg 25.7-32.2 rtlx=679) MEAN CORPUSCULAR HEMOGLOBIN CONC (BEAKER) (test 33.7 GM/DL 32.3-36.5 jtun=304) RED CELL DISTRIBUTION WIDTH (BEAKER) (test 15.5 % 11.6-14.4 fzwy=631) PLATELET COUNT (BEAKER) (test wpec=545) 277 K/CU MM 150-450 MEAN PLATELET VOLUME (BEAKER) (test tiuf=017) 9.7 fL 9.4-12.4 NUCLEATED RED BLOOD CELLS (BEAKER) (test 0 /100 WBC 0-0 kxkv=497) NEUTROPHILS RELATIVE PERCENT (BEAKER) (test 70 % mdee=011) LYMPHOCYTES RELATIVE PERCENT (BEAKER) (test 18 % zgvi=974) MONOCYTES RELATIVE PERCENT (BEAKER) (test 11 % gvef=497) EOSINOPHILS RELATIVE PERCENT (BEAKER) (test 0 % vmnq=190) BASOPHILS RELATIVE PERCENT (BEAKER) (test 0 % naoh=546) NEUTROPHILS ABSOLUTE COUNT (BEAKER) (test 7.46 K/ L 1.78-5.38 klnb=868) LYMPHOCYTES ABSOLUTE COUNT (BEAKER) (test 1.93 K/ L 1.32-3.57 oxmn=960) MONOCYTES ABSOLUTE COUNT (BEAKER) (test 1.17 K/ L 0.30-0.82 qdro=696) EOSINOPHILS ABSOLUTE COUNT (BEAKER) (test 0.02 K/ L 0.04-0.54 ujvu=267) BASOPHILS ABSOLUTE COUNT (BEAKER) (test 0.03 K/ L 0.01-0.08 hhez=138) IMMATURE GRANULOCYTES-RELATIVE PERCENT (BEAKER) 0 % 0-1 (test bbec=9368) COMPREHENSIVE METABOLIC [id number] 14:02:00 Test Item Value Reference Range Comments TOTAL PROTEIN (BEAKER) 7.8 gm/dL 6.0-8.3 (test zfps=701) ALBUMIN (BEAKER) (test 3.9 g/dL 3.5-5.0 gkaq=3996) ALKALINE PHOSPHATASE 62 U/L 40-150 (BEAKER) (test exov=485) BILIRUBIN TOTAL (BEAKER) 0.3 mg/dL 0.2-1.2 (test moux=596) SODIUM (BEAKER) (test 139 meq/L 136-145 ollp=777) POTASSIUM (BEAKER) (test 4.2 meq/L 3.5-5.1 lmfa=712) CHLORIDE (BEAKER) (test 104 meq/L 98-107 ozov=634) CO2 (BEAKER) (test 26 meq/L 22-29 aysg=128) BLOOD UREA NITROGEN 9 mg/dL 7-21 (BEAKER) (test xwci=758) CREATININE (BEAKER) (test 0.64 mg/dL 0.57-1.25 lnka=650) GLUCOSE RANDOM (BEAKER) 78 mg/dL 70-105 (test qtss=283) CALCIUM (BEAKER) (test 9.5 mg/dL 8.4-10.2 qhrl=208) AST (SGOT) (BEAKER) (test 18 U/L 5-34 eyva=488) ALT (SGPT) (BEAKER) (test 8 U/L 6-55 tvvw=721) EGFR (BEAKER) (test 141 mL/min/1.73 sq ESTIMATED GFR IS NOT jaty=5315) m ACCURATE CREATININE CLEARANCE IN PREDICTING GLOMERULAR FILTRATION RATE. ESTIMATED GFR IS NOT APPLICABLE FOR DIALYSIS PATIENTS. COMPREHENSIVE METABOLIC [id number] 06:08:00 Test Item Value Reference Range Comments TOTAL PROTEIN (BEAKER) 7.0 gm/dL 6.0-8.3 Specimen slightly (test hkno=027) hemolyzed ALBUMIN (BEAKER) (test 3.4 g/dL 3.5-5.0 Specimen slightly hitn=7060) hemolyzed ALKALINE PHOSPHATASE 58 U/L 40-150 (BEAKER) (test arnx=569) BILIRUBIN TOTAL (BEAKER) 0.4 mg/dL 0.2-1.2 Specimen slightly (test dnbs=734) hemolyzed SODIUM (BEAKER) (test 139 meq/L 136-145 jegn=288) POTASSIUM (BEAKER) (test 4.5 meq/L 3.5-5.1 Specimen slightly dust=756) hemolyzed CHLORIDE (BEAKER) (test 103 meq/L 98-107 cmqd=398) CO2 (BEAKER) (test 27 meq/L 22-29 cxxm=755) BLOOD UREA NITROGEN 2 mg/dL 7-21 (BEAKER) (test tvzc=484) CREATININE (BEAKER) (test 0.55 mg/dL 0.57-1.25 Specimen slightly yjel=986) hemolyzed GLUCOSE RANDOM (BEAKER) 85 mg/dL 70-105 (test bxfu=307) CALCIUM (BEAKER) (test 9.3 mg/dL 8.4-10.2 jgvd=144) AST (SGOT) (BEAKER) (test 18 U/L 5-34 Specimen slightly reea=390) hemolyzed ALT (SGPT) (BEAKER) (test 8 U/L 6-55 Specimen slightly brsj=983) hemolyzed EGFR (BEAKER) (test 168 mL/min/1.73 sq ESTIMATED GFR IS NOT ipdj=9563) m ACCURATE CREATININE CLEARANCE IN PREDICTING GLOMERULAR FILTRATION RATE. ESTIMATED GFR IS NOT APPLICABLE FOR DIALYSIS PATIENTS. CBC (HEMOGRAM ONLY)2017-05-17 05:20:00 Test Item Value Reference Range Comments WHITE BLOOD CELL COUNT (BEAKER) (test iqzg=409) 6.4 K/ L 3.5-10.5 RED BLOOD CELL COUNT (BEAKER) (test mqts=641) 3.84 M/ L 4.63-6.08 HEMOGLOBIN (BEAKER) (test skgv=501) 11.5 GM/DL 13.7-17.5 HEMATOCRIT (BEAKER) (test dzck=352) 35.2 % 40.1-51.0 MEAN CORPUSCULAR VOLUME (BEAKER) (test jeex=221) 91.7 fL 79.0-92.2 MEAN CORPUSCULAR HEMOGLOBIN (BEAKER) (test 29.9 pg 25.7-32.2 sitz=118) MEAN CORPUSCULAR HEMOGLOBIN CONC (BEAKER) (test 32.7 GM/DL 32.3-36.5 zdrv=497) RED CELL DISTRIBUTION WIDTH (BEAKER) (test 14.1 % 11.6-14.4 xxbs=590) PLATELET COUNT (BEAKER) (test ixqe=774) 434 K/CU MM 150-450 MEAN PLATELET VOLUME (BEAKER) (test xkys=176) 9.4 fL 9.4-12.4 NUCLEATED RED BLOOD CELLS (BEAKER) (test 0 /100 WBC 0-0 kzob=038) HEPATIC FUNCTION [id number] 11:22:00 Test Item Value Reference Range Comments TOTAL PROTEIN (BEAKER) (test ydli=437) 6.9 gm/dL 6.0-8.3 ALBUMIN (BEAKER) (test kvno=1916) 3.4 g/dL 3.5-5.0 BILIRUBIN TOTAL (BEAKER) (test bkzk=243) 0.4 mg/dL 0.2-1.2 BILIRUBIN DIRECT (BEAKER) (test bxmd=297) 0.2 mg/dL 0.1-0.5 ALKALINE PHOSPHATASE (BEAKER) (test zesc=929) 65 U/L 40-150 AST (SGOT) (BEAKER) (test msjm=690) 14 U/L 5-34 ALT (SGPT) (BEAKER) (test pcvd=617) 8 U/L 6-55 CBC W/PLT COUNT & AUTO [id number] 11:16:00 Test Item Value Reference Range Comments WHITE BLOOD CELL COUNT (BEAKER) (test xban=098) 7.0 K/ L 3.5-10.5 RED BLOOD CELL COUNT (BEAKER) (test ypco=463) 3.90 M/ L 4.63-6.08 HEMOGLOBIN (BEAKER) (test uuqf=778) 11.9 GM/DL 13.7-17.5 HEMATOCRIT (BEAKER) (test dpbn=444) 35.7 % 40.1-51.0 MEAN CORPUSCULAR VOLUME (BEAKER) (test hkuj=196) 91.5 fL 79.0-92.2 MEAN CORPUSCULAR HEMOGLOBIN (BEAKER) (test 30.5 pg 25.7-32.2 nvyk=381) MEAN CORPUSCULAR HEMOGLOBIN CONC (BEAKER) (test 33.3 GM/DL 32.3-36.5 vsrw=371) RED CELL DISTRIBUTION WIDTH (BEAKER) (test 14.0 % 11.6-14.4 frce=006) PLATELET COUNT (BEAKER) (test xwcx=855) 452 K/CU MM 150-450 MEAN PLATELET VOLUME (BEAKER) (test ngds=914) 9.0 fL 9.4-12.4 NUCLEATED RED BLOOD CELLS (BEAKER) (test 0 /100 WBC 0-0 hldp=006) NEUTROPHILS RELATIVE PERCENT (BEAKER) (test 59 % yhwj=346) LYMPHOCYTES RELATIVE PERCENT (BEAKER) (test 21 % oovg=166) MONOCYTES RELATIVE PERCENT (BEAKER) (test 8 % nixc=897) EOSINOPHILS RELATIVE PERCENT (BEAKER) (test 10 % vyhn=886) BASOPHILS RELATIVE PERCENT (BEAKER) (test 1 % lnlc=972) NEUTROPHILS ABSOLUTE COUNT (BEAKER) (test 4.12 K/ L 1.78-5.38 ergm=253) LYMPHOCYTES ABSOLUTE COUNT (BEAKER) (test 1.45 K/ L 1.32-3.57 gnje=401) MONOCYTES ABSOLUTE COUNT (BEAKER) (test 0.58 K/ L 0.30-0.82 nuib=922) EOSINOPHILS ABSOLUTE COUNT (BEAKER) (test 0.70 K/ L 0.04-0.54 vwpq=434) BASOPHILS ABSOLUTE COUNT (BEAKER) (test 0.10 K/ L 0.01-0.08 zawy=466) IMMATURE GRANULOCYTES-RELATIVE PERCENT (BEAKER) 0 % 0-1 (test jnas=6907) BASIC METABOLIC [id number] 06:43:00 Test Item Value Reference Range Comments SODIUM (BEAKER) (test 138 meq/L 136-145 moac=835) POTASSIUM (BEAKER) (test 3.5 meq/L 3.5-5.1 zzll=047) CHLORIDE (BEAKER) (test 100 meq/L 98-107 rvjc=147) CO2 (BEAKER) (test 27 meq/L 22-29 hzgs=762) BLOOD UREA NITROGEN 2 mg/dL 7-21 (BEAKER) (test anuu=975) CREATININE (BEAKER) (test 0.53 mg/dL 0.57-1.25 aqjd=986) GLUCOSE RANDOM (BEAKER) 82 mg/dL 70-105 (test pgac=469) CALCIUM (BEAKER) (test 9.0 mg/dL 8.4-10.2 xjwv=486) EGFR (BEAKER) (test 175 mL/min/1.73 sq m ESTIMATED GFR IS NOT dmpf=0528) ACCURATE CREATININE CLEARANCE IN PREDICTING GLOMERULAR FILTRATION RATE. ESTIMATED GFR IS NOT APPLICABLE FOR DIALYSIS PATIENTS. BASIC METABOLIC [id number] 05:14:00 Test Item Value Reference Range Comments SODIUM (BEAKER) (test 132 meq/L 136-145 xghe=605) POTASSIUM (BEAKER) (test 3.8 meq/L 3.5-5.1 zoni=763) CHLORIDE (BEAKER) (test 101 meq/L 98-107 dkbp=778) CO2 (BEAKER) (test 18 meq/L 22-29 caxv=761) BLOOD UREA NITROGEN 4 mg/dL 7-21 (BEAKER) (test hvdz=170) CREATININE (BEAKER) (test 0.52 mg/dL 0.57-1.25 pfne=214) GLUCOSE RANDOM (BEAKER) 58 mg/dL 70-105 (test ppwz=566) CALCIUM (BEAKER) (test 8.7 mg/dL 8.4-10.2 kezw=904) EGFR (BEAKER) (test 179 mL/min/1.73 sq m ESTIMATED GFR IS NOT qgjh=7477) ACCURATE CREATININE CLEARANCE IN PREDICTING GLOMERULAR FILTRATION RATE. ESTIMATED GFR IS NOT APPLICABLE FOR DIALYSIS PATIENTS. CBC (HEMOGRAM ONLY)2017-05-15 04:57:00 Test Item Value Reference Range Comments WHITE BLOOD CELL COUNT (BEAKER) (test lpsp=812) 13.4 K/ L 3.5-10.5 RED BLOOD CELL COUNT (BEAKER) (test edbk=654) 3.81 M/ L 4.63-6.08 HEMOGLOBIN (BEAKER) (test upwm=085) 11.4 GM/DL 13.7-17.5 HEMATOCRIT (BEAKER) (test zxoj=759) 35.1 % 40.1-51.0 MEAN CORPUSCULAR VOLUME (BEAKER) (test rlcp=119) 92.1 fL 79.0-92.2 MEAN CORPUSCULAR HEMOGLOBIN (BEAKER) (test 29.9 pg 25.7-32.2 lnmh=515) MEAN CORPUSCULAR HEMOGLOBIN CONC (BEAKER) (test 32.5 GM/DL 32.3-36.5 dngv=378) RED CELL DISTRIBUTION WIDTH (BEAKER) (test 14.3 % 11.6-14.4 deol=140) PLATELET COUNT (BEAKER) (test cxny=740) 502 K/CU MM 150-450 MEAN PLATELET VOLUME (BEAKER) (test mcou=512) 9.6 fL 9.4-12.4 NUCLEATED RED BLOOD CELLS (BEAKER) (test 0 /100 WBC 0-0 cttf=209) LIPID [id number] 05:00:00 Test Item Value Reference Range Comments TRIGLYCERIDES (BEAKER) (test wwtv=877) 71 mg/dL CHOLESTEROL (BEAKER) (test cxyw=031) 108 mg/dL HDL CHOLESTEROL (BEAKER) (test xztc=183) 22 mg/dL LDL CHOLESTEROL CALCULATED (BEAKER) (test 72 mg/dL kvne=097) Triglyceride Reference Range: Low Risk <150 Borderline 150- 199 High Risk 200-499 Very High Risk >=500Cholesterol Reference Range: Low Risk <200 Borderline 200-239 High Risk > 240HDL Cholesterol Reference Range: Low Risk >=60 High Risk <40LDL Cholesterol Reference Range: Optimal <100 Near Optimal 100-129 Borderline 130-159 High 160-189 Very High >=190BASIC METABOLIC [id number] 05:00:00 Test Item Value Reference Range Comments SODIUM (BEAKER) (test 133 meq/L 136-145 zgnf=324) POTASSIUM (BEAKER) (test 4.1 meq/L 3.5-5.1 osvk=496) CHLORIDE (BEAKER) (test 105 meq/L 98-107 eand=374) CO2 (BEAKER) (test 17 meq/L 22-29 otgc=804) BLOOD UREA NITROGEN 8 mg/dL 7-21 (BEAKER) (test zvfw=826) CREATININE (BEAKER) (test 0.51 mg/dL 0.57-1.25 zvno=702) GLUCOSE RANDOM (BEAKER) 54 mg/dL 70-105 (test ajtg=746) CALCIUM (BEAKER) (test 8.4 mg/dL 8.4-10.2 rnxr=311) EGFR (BEAKER) (test 183 mL/min/1.73 sq m ESTIMATED GFR IS NOT awsg=0063) ACCURATE CREATININE CLEARANCE IN PREDICTING GLOMERULAR FILTRATION RATE. ESTIMATED GFR IS NOT APPLICABLE FOR DIALYSIS PATIENTS. HEPATIC FUNCTION [id number] 05:00:00 Test Item Value Reference Range Comments TOTAL PROTEIN (BEAKER) (test qrwy=755) 6.3 gm/dL 6.0-8.3 ALBUMIN (BEAKER) (test cslg=6434) 3.2 g/dL 3.5-5.0 BILIRUBIN TOTAL (BEAKER) (test uing=591) 0.7 mg/dL 0.2-1.2 BILIRUBIN DIRECT (BEAKER) (test etpq=314) 0.3 mg/dL 0.1-0.5 ALKALINE PHOSPHATASE (BEAKER) (test miwe=967) 62 U/L 40-150 AST (SGOT) (BEAKER) (test fsvf=618) 13 U/L 5-34 ALT (SGPT) (BEAKER) (test jlzg=666) 9 U/L 6-55 [id number] 05:00:00 Test Item Value Reference Range Comments LIPASE (BEAKER) (test rvwf=369) 1007 U/L 8-78 CBC (HEMOGRAM ONLY)2017-05-14 04:39:00 Test Item Value Reference Range Comments WHITE BLOOD CELL COUNT (BEAKER) (test bhjr=951) 16.6 K/ L 3.5-10.5 RED BLOOD CELL COUNT (BEAKER) (test dfwx=514) 3.98 M/ L 4.63-6.08 HEMOGLOBIN (BEAKER) (test xxmo=301) 12.0 GM/DL 13.7-17.5 HEMATOCRIT (BEAKER) (test lwxw=239) 37.2 % 40.1-51.0 MEAN CORPUSCULAR VOLUME (BEAKER) (test ahau=099) 93.5 fL 79.0-92.2 MEAN CORPUSCULAR HEMOGLOBIN (BEAKER) (test 30.2 pg 25.7-32.2 ceda=059) MEAN CORPUSCULAR HEMOGLOBIN CONC (BEAKER) (test 32.3 GM/DL 32.3-36.5 zykh=650) RED CELL DISTRIBUTION WIDTH (BEAKER) (test 14.5 % 11.6-14.4 bgbq=451) PLATELET COUNT (BEAKER) (test czuq=366) 527 K/CU MM 150-450 MEAN PLATELET VOLUME (BEAKER) (test jfcy=257) 9.5 fL 9.4-12.4 NUCLEATED RED BLOOD CELLS (BEAKER) (test 0 /100 WBC 0-0 kyln=879) MR, ABDOMEN, [id number] 12:25:00FINAL REPORT MRI of the abdomen, MRCP. [...] biliary dilatation or choledocholithiasis. Signed: [facility] Vee [facility] Verified Date/Time: 03/13/2017 12:25:41 Reading Location: [facility] [id number] [facility] Consult Reading Room Electronically signed by: KIKO VEE M.D. on 12:[facility] [id number] 05:05:00 Test Item Value Reference Range Comments SODIUM (BEAKER) (test 139 meq/L 136-145 ddwx=518) POTASSIUM (BEAKER) (test 3.7 meq/L 3.5-5.1 cwkr=707) CHLORIDE (BEAKER) (test 108 meq/L 98-107 zvhy=806) CO2 (BEAKER) (test 22 meq/L 22-29 nyhi=995) BLOOD UREA NITROGEN 4 mg/dL 7-21 (BEAKER) (test knta=110) CREATININE (BEAKER) (test 0.58 mg/dL 0.57-1.25 lbwj=040) GLUCOSE RANDOM (BEAKER) 95 mg/dL 70-105 (test nyul=044) CALCIUM (BEAKER) (test 8.5 mg/dL 8.4-10.2 mzmx=879) EGFR (BEAKER) (test 158 mL/min/1.73 sq m ESTIMATED GFR IS NOT zgae=4210) ACCURATE CREATININE CLEARANCE IN PREDICTING GLOMERULAR FILTRATION RATE. ESTIMATED GFR IS NOT APPLICABLE FOR DIALYSIS PATIENTS. CBC W/PLT COUNT & AUTO [id number] 04:49:00 Test Item Value Reference Range Comments WHITE BLOOD CELL COUNT (BEAKER) (test wpcj=478) 6.3 K/ L 3.5-10.5 RED BLOOD CELL COUNT (BEAKER) (test qors=518) 4.32 M/ L 4.63-6.08 HEMOGLOBIN (BEAKER) (test magy=556) 13.7 GM/DL 13.7-17.5 HEMATOCRIT (BEAKER) (test eesl=163) 40.3 % 40.1-51.0 MEAN CORPUSCULAR VOLUME (BEAKER) (test mznl=696) 93.3 fL 79.0-92.2 MEAN CORPUSCULAR HEMOGLOBIN (BEAKER) (test 31.7 pg 25.7-32.2 wknp=384) MEAN CORPUSCULAR HEMOGLOBIN CONC (BEAKER) (test 34.0 GM/DL 32.3-36.5 kqso=930) RED CELL DISTRIBUTION WIDTH (BEAKER) (test 11.9 % 11.6-14.4 sypz=085) PLATELET COUNT (BEAKER) (test qsyw=757) 286 K/CU MM 150-450 MEAN PLATELET VOLUME (BEAKER) (test cizk=974) 9.4 fL 9.4-12.4 NUCLEATED RED BLOOD CELLS (BEAKER) (test 0 /100 WBC 0-0 dgmr=141) NEUTROPHILS RELATIVE PERCENT (BEAKER) (test 51 % tocl=439) LYMPHOCYTES RELATIVE PERCENT (BEAKER) (test 31 % mpcu=703) MONOCYTES RELATIVE PERCENT (BEAKER) (test 11 % eoqb=339) EOSINOPHILS RELATIVE PERCENT (BEAKER) (test 6 % ulyz=262) BASOPHILS RELATIVE PERCENT (BEAKER) (test 1 % ohrn=964) NEUTROPHILS ABSOLUTE COUNT (BEAKER) (test 3.21 K/ L 1.78-5.38 lfsv=513) LYMPHOCYTES ABSOLUTE COUNT (BEAKER) (test 1.91 K/ L 1.32-3.57 wjnp=083) MONOCYTES ABSOLUTE COUNT (BEAKER) (test 0.68 K/ L 0.30-0.82 nwjk=463) EOSINOPHILS ABSOLUTE COUNT (BEAKER) (test 0.40 K/ L 0.04-0.54 jads=823) BASOPHILS ABSOLUTE COUNT (BEAKER) (test 0.04 K/ L 0.01-0.08 ibvw=115) IMMATURE GRANULOCYTES-RELATIVE PERCENT (BEAKER) 1 % 0-1 (test uqoe=9753) CBC W/PLT COUNT & AUTO [id number] 04:52:00 Test Item Value Reference Range Comments WHITE BLOOD CELL COUNT (BEAKER) (test fobh=726) 6.2 K/ L 3.5-10.5 RED BLOOD CELL COUNT (BEAKER) (test zcmt=002) 4.31 M/ L 4.63-6.08 HEMOGLOBIN (BEAKER) (test ouwz=728) 13.7 GM/DL 13.7-17.5 HEMATOCRIT (BEAKER) (test odoq=285) 41.1 % 40.1-51.0 MEAN CORPUSCULAR VOLUME (BEAKER) (test apxf=917) 95.4 fL 79.0-92.2 MEAN CORPUSCULAR HEMOGLOBIN (BEAKER) (test 31.8 pg 25.7-32.2 mylc=355) MEAN CORPUSCULAR HEMOGLOBIN CONC (BEAKER) (test 33.3 GM/DL 32.3-36.5 mupo=100) RED CELL DISTRIBUTION WIDTH (BEAKER) (test 12.1 % 11.6-14.4 vnld=832) PLATELET COUNT (BEAKER) (test zaqf=603) 295 K/CU MM 150-450 MEAN PLATELET VOLUME (BEAKER) (test zmam=733) 9.5 fL 9.4-12.4 NUCLEATED RED BLOOD CELLS (BEAKER) (test 0 /100 WBC 0-0 svao=478) NEUTROPHILS RELATIVE PERCENT (BEAKER) (test 51 % kiqo=925) LYMPHOCYTES RELATIVE PERCENT (BEAKER) (test 31 % ttst=259) MONOCYTES RELATIVE PERCENT (BEAKER) (test 11 % edpc=769) EOSINOPHILS RELATIVE PERCENT (BEAKER) (test 7 % ikpy=100) BASOPHILS RELATIVE PERCENT (BEAKER) (test 1 % lfos=044) NEUTROPHILS ABSOLUTE COUNT (BEAKER) (test 3.17 K/ L 1.78-5.38 bjel=019) LYMPHOCYTES ABSOLUTE COUNT (BEAKER) (test 1.89 K/ L 1.32-3.57 zqcw=268) MONOCYTES ABSOLUTE COUNT (BEAKER) (test 0.65 K/ L 0.30-0.82 eaks=316) EOSINOPHILS ABSOLUTE COUNT (BEAKER) (test 0.41 K/ L 0.04-0.54 jadl=211) BASOPHILS ABSOLUTE COUNT (BEAKER) (test 0.05 K/ L 0.01-0.08 krxu=598) IMMATURE GRANULOCYTES-RELATIVE PERCENT (BEAKER) 1 % 0-1 (test hwql=3944) COMPREHENSIVE METABOLIC [id number] 11:20:00 Test Item Value Reference Range Comments TOTAL PROTEIN (BEAKER) 7.2 gm/dL 6.0-8.3 (test ryqk=521) ALBUMIN (BEAKER) (test 3.7 g/dL 3.5-5.0 mdza=0499) ALKALINE PHOSPHATASE 73 U/L 40-150 (BEAKER) (test cjpg=623) BILIRUBIN TOTAL (BEAKER) 0.6 mg/dL 0.2-1.2 (test mtwg=962) SODIUM (BEAKER) (test 135 meq/L 136-145 ebgh=841) POTASSIUM (BEAKER) (test 5.0 meq/L 3.5-5.1 sknz=402) CHLORIDE (BEAKER) (test 109 meq/L 98-107 iddx=062) CO2 (BEAKER) (test 14 meq/L 22-29 qjai=322) BLOOD UREA NITROGEN 6 mg/dL 7-21 (BEAKER) (test mlju=974) CREATININE (BEAKER) (test 0.62 mg/dL 0.57-1.25 hxsz=242) GLUCOSE RANDOM (BEAKER) 45 mg/dL 70-105 (test unzq=548) CALCIUM (BEAKER) (test 8.6 mg/dL 8.4-10.2 dmwz=844) AST (SGOT) (BEAKER) (test 17 U/L 5-34 dnae=213) ALT (SGPT) (BEAKER) (test 14 U/L 6-55 tgam=111) EGFR (BEAKER) (test 146 mL/min/1.73 sq ESTIMATED GFR IS NOT hwnr=4113) m ACCURATE CREATININE CLEARANCE IN PREDICTING GLOMERULAR FILTRATION RATE. ESTIMATED GFR IS NOT APPLICABLE FOR DIALYSIS PATIENTS. CBC W/PLT COUNT & AUTO [id number] 09:54:00 Test Item Value Reference Range Comments WHITE BLOOD CELL COUNT (BEAKER) (test oiix=337) 7.4 K/ L 3.5-10.5 RED BLOOD CELL COUNT (BEAKER) (test husi=435) 4.32 M/ L 4.63-6.08 HEMOGLOBIN (BEAKER) (test gbiu=412) 13.6 GM/DL 13.7-17.5 HEMATOCRIT (BEAKER) (test ymzu=356) 41.8 % 40.1-51.0 MEAN CORPUSCULAR VOLUME (BEAKER) (test wfvj=101) 96.8 fL 79.0-92.2 MEAN CORPUSCULAR HEMOGLOBIN (BEAKER) (test 31.5 pg 25.7-32.2 pvax=913) MEAN CORPUSCULAR HEMOGLOBIN CONC (BEAKER) (test 32.5 GM/DL 32.3-36.5 xntl=188) RED CELL DISTRIBUTION WIDTH (BEAKER) (test 12.1 % 11.6-14.4 nzlx=395) PLATELET COUNT (BEAKER) (test iuzl=648) 277 K/CU MM 150-450 MEAN PLATELET VOLUME (BEAKER) (test khnk=769) 9.7 fL 9.4-12.4 NUCLEATED RED BLOOD CELLS (BEAKER) (test 0 /100 WBC 0-0 vkdr=736) NEUTROPHILS RELATIVE PERCENT (BEAKER) (test 57 % yhps=964) LYMPHOCYTES RELATIVE PERCENT (BEAKER) (test 29 % nluj=782) MONOCYTES RELATIVE PERCENT (BEAKER) (test 8 % afpi=583) EOSINOPHILS RELATIVE PERCENT (BEAKER) (test 5 % tfrz=427) BASOPHILS RELATIVE PERCENT (BEAKER) (test 1 % rwgt=371) NEUTROPHILS ABSOLUTE COUNT (BEAKER) (test 4.23 K/ L 1.78-5.38 evek=780) LYMPHOCYTES ABSOLUTE COUNT (BEAKER) (test 2.10 K/ L 1.32-3.57 xsiv=606) MONOCYTES ABSOLUTE COUNT (BEAKER) (test 0.57 K/ L 0.30-0.82 gvjc=757) EOSINOPHILS ABSOLUTE COUNT (BEAKER) (test 0.38 K/ L 0.04-0.54 zbys=709) BASOPHILS ABSOLUTE COUNT (BEAKER) (test 0.05 K/ L 0.01-0.08 dmuh=708) IMMATURE GRANULOCYTES-RELATIVE PERCENT (BEAKER) 1 % 0-1 (test tjls=9651) (MANUAL DIFFERENTIAL)2017-03-11 09:54:00 Test Item Value Reference Range Comments TOTAL COUNTED (BEAKER) (test ywsn=8304) WBC MORPHOLOGY (BEAKER) (test ooch=355) Normal PLT MORPHOLOGY (BEAKER) (test zsbz=833) Normal RBC MORPHOLOGY (BEAKER) (test qybr=270) Normal CBC W/PLT COUNT & AUTO [id number] 09:09:00 Test Item Value Reference Range Comments WHITE BLOOD CELL COUNT (BEAKER) (test wiyb=812) 8.9 K/ L 3.5-10.5 RED BLOOD CELL COUNT (BEAKER) (test kkzt=377) 4.25 M/ L 4.63-6.08 HEMOGLOBIN (BEAKER) (test xdfx=218) 13.6 GM/DL 13.7-17.5 HEMATOCRIT (BEAKER) (test suys=733) 40.7 % 40.1-51.0 MEAN CORPUSCULAR VOLUME (BEAKER) (test fzip=217) 95.8 fL 79.0-92.2 MEAN CORPUSCULAR HEMOGLOBIN (BEAKER) (test 32.0 pg 25.7-32.2 kvbt=194) MEAN CORPUSCULAR HEMOGLOBIN CONC (BEAKER) (test 33.4 GM/DL 32.3-36.5 uhoi=667) RED CELL DISTRIBUTION WIDTH (BEAKER) (test 12.1 % 11.6-14.4 taiw=102) PLATELET COUNT (BEAKER) (test folh=244) 274 K/CU MM 150-450 MEAN PLATELET VOLUME (BEAKER) (test mglg=393) 9.8 fL 9.4-12.4 NUCLEATED RED BLOOD CELLS (BEAKER) (test 0 /100 WBC 0-0 dmbt=586) NEUTROPHILS RELATIVE PERCENT (BEAKER) (test 62 % kyog=946) LYMPHOCYTES RELATIVE PERCENT (BEAKER) (test 24 % ymyw=128) MONOCYTES RELATIVE PERCENT (BEAKER) (test 7 % nmtx=113) EOSINOPHILS RELATIVE PERCENT (BEAKER) (test 5 % brnp=009) BASOPHILS RELATIVE PERCENT (BEAKER) (test 1 % yhir=265) NEUTROPHILS ABSOLUTE COUNT (BEAKER) (test 5.55 K/ L 1.78-5.38 byml=719) LYMPHOCYTES ABSOLUTE COUNT (BEAKER) (test 2.14 K/ L 1.32-3.57 pnfn=768) MONOCYTES ABSOLUTE COUNT (BEAKER) (test 0.64 K/ L 0.30-0.82 ybbw=405) EOSINOPHILS ABSOLUTE COUNT (BEAKER) (test 0.48 K/ L 0.04-0.54 rhdf=885) BASOPHILS ABSOLUTE COUNT (BEAKER) (test 0.07 K/ L 0.01-0.08 pdot=642) IMMATURE GRANULOCYTES-RELATIVE PERCENT (BEAKER) 0 % 0-1 (test jgrp=9000) (MANUAL DIFFERENTIAL)2017-03-10 09:09:00 Test Item Value Reference Range Comments TOTAL COUNTED (BEAKER) (test zdgx=3446) WBC MORPHOLOGY (BEAKER) (test rkxd=326) Normal PLT MORPHOLOGY (BEAKER) (test wxua=934) Normal RBC MORPHOLOGY (BEAKER) (test zmcb=158) Normal COMPREHENSIVE METABOLIC [id number] 07:30:00 Test Item Value Reference Range Comments TOTAL PROTEIN (BEAKER) 6.8 gm/dL 6.0-8.3 (test ukqx=487) ALBUMIN (BEAKER) (test 3.6 g/dL 3.5-5.0 qxqp=7238) ALKALINE PHOSPHATASE 77 U/L 40-150 (BEAKER) (test djxp=166) BILIRUBIN TOTAL (BEAKER) 0.6 mg/dL 0.2-1.2 (test tsvm=846) SODIUM (BEAKER) (test 136 meq/L 136-145 gmnw=931) POTASSIUM (BEAKER) (test 4.3 meq/L 3.5-5.1 mhvv=996) CHLORIDE (BEAKER) (test 105 meq/L 98-107 kxab=432) CO2 (BEAKER) (test 19 meq/L 22-29 quyq=561) BLOOD UREA NITROGEN 6 mg/dL 7-21 (BEAKER) (test ccqa=448) CREATININE (BEAKER) (test 0.57 mg/dL 0.57-1.25 kapt=548) GLUCOSE RANDOM (BEAKER) 52 mg/dL 70-105 (test idmp=378) CALCIUM (BEAKER) (test 8.2 mg/dL 8.4-10.2 gkjc=692) AST (SGOT) (BEAKER) (test 17 U/L 5-34 rvma=715) ALT (SGPT) (BEAKER) (test 14 U/L 6-55 vcng=840) EGFR (BEAKER) (test 161 mL/min/1.73 sq ESTIMATED GFR IS NOT tczm=0483) m ACCURATE CREATININE CLEARANCE IN PREDICTING GLOMERULAR FILTRATION RATE. ESTIMATED GFR IS NOT APPLICABLE FOR DIALYSIS PATIENTS. CBC W/PLT COUNT & AUTO [id number] 10:49:00 Test Item Value Reference Range Comments WHITE BLOOD CELL COUNT (BEAKER) (test pcaa=543) 6.9 K/ L 3.5-10.5 RED BLOOD CELL COUNT (BEAKER) (test wieh=565) 3.83 M/ L 4.63-6.08 HEMOGLOBIN (BEAKER) (test dsrh=620) 12.5 GM/DL 13.7-17.5 HEMATOCRIT (BEAKER) (test obqi=791) 36.7 % 40.1-51.0 MEAN CORPUSCULAR VOLUME (BEAKER) (test zfky=411) 95.8 fL 79.0-92.2 MEAN CORPUSCULAR HEMOGLOBIN (BEAKER) (test 32.6 pg 25.7-32.2 kwbn=880) MEAN CORPUSCULAR HEMOGLOBIN CONC (BEAKER) (test 34.1 GM/DL 32.3-36.5 syeb=876) RED CELL DISTRIBUTION WIDTH (BEAKER) (test 12.4 % 11.6-14.4 unlo=523) PLATELET COUNT (BEAKER) (test oqbr=957) 267 K/CU MM 150-450 MEAN PLATELET VOLUME (BEAKER) (test trqk=259) 9.7 fL 9.4-12.4 NUCLEATED RED BLOOD CELLS (BEAKER) (test 0 /100 WBC 0-0 dmbt=246) NEUTROPHILS RELATIVE PERCENT (BEAKER) (test 60 % izcd=667) LYMPHOCYTES RELATIVE PERCENT (BEAKER) (test 26 % oiua=261) MONOCYTES RELATIVE PERCENT (BEAKER) (test 7 % fcjt=616) EOSINOPHILS RELATIVE PERCENT (BEAKER) (test 6 % limc=907) BASOPHILS RELATIVE PERCENT (BEAKER) (test 1 % ioig=796) NEUTROPHILS ABSOLUTE COUNT (BEAKER) (test 4.15 K/ L 1.78-5.38 eymi=717) LYMPHOCYTES ABSOLUTE COUNT (BEAKER) (test 1.82 K/ L 1.32-3.57 tmiu=421) MONOCYTES ABSOLUTE COUNT (BEAKER) (test 0.47 K/ L 0.30-0.82 bveq=244) EOSINOPHILS ABSOLUTE COUNT (BEAKER) (test 0.38 K/ L 0.04-0.54 ecbr=623) BASOPHILS ABSOLUTE COUNT (BEAKER) (test 0.04 K/ L 0.01-0.08 fhkr=088) COMPREHENSIVE METABOLIC [id number] 10:45:00 Test Item Value Reference Range Comments TOTAL PROTEIN (BEAKER) 6.2 gm/dL 6.0-8.3 (test gjgp=220) ALBUMIN (BEAKER) (test 3.3 g/dL 3.5-5.0 cyuq=7185) ALKALINE PHOSPHATASE 70 U/L 40-150 (BEAKER) (test xrdv=378) BILIRUBIN TOTAL (BEAKER) 0.4 mg/dL 0.2-1.2 (test vxlq=023) SODIUM (BEAKER) (test 138 meq/L 136-145 tgxx=145) POTASSIUM (BEAKER) (test 3.5 meq/L 3.5-5.1 qjex=749) CHLORIDE (BEAKER) (test 109 meq/L 98-107 qwbi=835) CO2 (BEAKER) (test 23 meq/L 22-29 ipoh=380) BLOOD UREA NITROGEN 5 mg/dL 7-21 (BEAKER) (test hioo=391) CREATININE (BEAKER) (test 0.54 mg/dL 0.57-1.25 rump=134) GLUCOSE RANDOM (BEAKER) 77 mg/dL 70-105 (test anjh=672) CALCIUM (BEAKER) (test 7.6 mg/dL 8.4-10.2 npjd=031) AST (SGOT) (BEAKER) (test 18 U/L 5-34 gniu=186) ALT (SGPT) (BEAKER) (test 15 U/L 6-55 jqlr=323) EGFR (BEAKER) (test 171 mL/min/1.73 sq ESTIMATED GFR IS NOT gwqc=9289) m ACCURATE CREATININE CLEARANCE IN PREDICTING GLOMERULAR FILTRATION RATE. ESTIMATED GFR IS NOT APPLICABLE FOR DIALYSIS PATIENTS. [id number] 10:29:00 Test Item Value Reference Range Comments TRIGLYCERIDES (BEAKER) (test jwak=888) 58 mg/dL TRIGLYCERIDE REFERENCE RANGELow Risk <150Borderline Risk 150-199High Risk 200-499Very High Risk>=[id number] 10:29:00 Test Item Value Reference Range Comments MAGNESIUM (BEAKER) (test gofl=407) 1.4 mg/dL 1.6-2.6 [id number] 10:29:00 Test Item Value Reference Range Comments LIPASE (BEAKER) (test fyga=708) 536 U/L 8-78 PROTHROMBIN [id number] 10:22:00 Test Item Value Reference Range Comments PROTIME (BEAKER) (test xpqh=843) 14.3 seconds 11.7-14.7 INR (BEAKER) (test tmsx=828) 1.1 <=5.9 RECOMMENDED COUMADIN/WARFARIN INR THERAPY RANGESSTANDARD DOSE: 2.0 - 3.0 Includes: PROPHYLAXIS forvenous thrombosis, systemic embolization; TREATMENT for venous thrombosis and/or pulmonary embolus.HIGH RISK: Target INR is 2.5-3.5 for patients with mechanical heart valves.
[2018-03-21 12:07] LABS: Absolute Lymphocytes (CBC) 1.7 K/uL (0.7-4.9); Absolute Monocytes 0.9 K/uL (0.1-1.3); Absolute Neutrophil 5.3 K/uL (1.8-8.0); Basophils % 0.6 % (0-1.3); Eosinophils % 0.2 % (0-4.4); Hematocrit 45.5 % (39.6-49.0); MCH 33.5 pg (27.0-35.0); MCV 96.2 fL (80-100); MPV 8.6 fL (7.6-11.3); RBC Red Blood Cell Count 4.73 M/uL (4.33-5.43)
[2018-03-21] MEDS ORDERED: MORPHINE 4 MG/ML SYR ONE (12:14)
[2018-03-21] MEDS ORDERED: ONDANSETRON 4 MG/2 ML VIAL ONE (12:14)
[2018-03-21] MEDS ORDERED: NA CHLORIDE 0.9% 1,000 ML ONE (12:14)
[2018-03-21 12:26] LABS: ALT/SGPT 102 U/L (12-78); AST/SGOT 128 U/L (15-37); Albumin 4.7 g/dL (3.4-5.0); Alkaline Phosphatase 89 U/L (45-117); BUN Blood Urea Nitrogen 6 mg/dL (7-18); Bicarbonate 26 mmol/L (21-32); Bilirubin Direct 0.2 mg/dL (0-0.2); Bilirubin Total 0.7 mg/dL (0.2-1.0); Glucose Level 128 mg/dL (74-106); Lipase 226 U/L (73-393); Potassium 3.6 mmol/L (3.5-5.1); Protein, Total 9.1 g/dL (6.4-8.2); Sodium Level 140 mmol/L (136-145)
[2018-03-21] MEDS ORDERED: KETOROLAC 30 MG/ML INJ ONE (13:00)
--- NOTE | 2018-03-21 13:40 | RAD REPORT ---
EXAM DESCRIPTION: CT - Abdomen Pelvis W Contrast - 03/21/2018 1:06 pm CLINICAL HISTORY: Abdominal pain vomiting and diarrhea COMPARISON: September 2017 TECHNIQUE: Computed axial tomography of the abdomen pelvis was obtained. 100 cc Isovue-300 was admin istered intravenously. Oral contrast was not requested which limits evaluation of bowel. All CT scans are performed using dose optimization technique as appropriate and may include automated exposure control or mA/KV adjustment according to patient size. FINDINGS: Liver is mildly enlarged with fatty infiltration The spleen, adrenals and kidneys appear unremarkable. 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 Pancreatic head is mildly enlarged. I suspect this also is related to chronic pancreatitis Coils in the peripancreatic region likely are vascular in nature. A pseudocyst is not seen There is no evidence of diverticulitis. The gallbladder is mildly distended IMPRESSION: Mild gallbladder distention. Chronic pancreatitis.
--- NOTE | 2018-03-21 14:02 | ER ---
Nurse's Notes [facility] Name: Ankit Rosales Age: 37 yrs Sex: Male : 1980 Arrival Date: 03/21/2018 Time: 11:15 Bed 2 Private MD: None, None Diagnosis: Epigastric pain;Alcohol abuse with intoxication Presentation: 03/21 11:29 Presenting complaint: N/V/D and RUQ pain x 3 days. Hx pancreatitis and alcohol abuse, hb has been drinking tequila heavily for the last week, last drink was this morning. Transition of care: patient was not received from another setting of care. Onset of symptoms was March 18, 2018. Risk Assessment: Do you want to hurt yourself or someone else? Patient reports no desire to harm self or others. Care prior to arrival: None. 11:29 Method Of Arrival: Ambulatory hb 11:29 Acuity: KRAIG 2 hb 11:45 Initial Sepsis Screen: Does the patient meet any 2 criteria? HR > 90 bpm. Does the aa5 patient have a suspected source of infection? No. Patient's initial sepsis screen is negative. Historical: - Allergies: 11:32 NKDA; hb - PMHx: 11:32 GALLSTONES; left leg DVT; Cirrhosis; Pancreatitis; hb - Immunization history:: Adult Immunizations up to date. - Social history:: Smoking status: Patient/guardian denies using tobacco. - Ebola Screening: : No symptoms or risks identified at this time. Screenin:50 Abuse screen: Denies threats or abuse. Nutritional screening: No deficits noted. aa5 Tuberculosis screening: No symptoms or risk factors identified. Fall Risk No fall in past 12 months (0 pts). Secondary diagnosis (15 points) Pt smells of ETOH. IV access (20 points). Ambulatory Aid- None/Bed Rest/Nurse Assist (0 pts). Gait- Normal/Bed Rest/Wheelchair (0 pts) Mental Status- Oriented to own ability (0 pts). Total Carson Fall Scale indicates Low Risk Score (25-44 pts). Fall prevention measures have been instituted. Side Rails Up X 2 Placed close to Nursing Station. Assessment: 11:45 General: Appears comfortable, slender, Behavior is calm, cooperative, Smells of aa5 alcohol. Pain: Complains of pain in right upper quadrant Pain does not radiate. Pain currently is 9 out of 10 on a pain scale. Quality of pain is described as crampy, sharp, Pain began 2-3 days ago. Is continuous. Neuro: Level of Consciousness is awake, alert, obeys commands, Oriented to person, place, time, situation. Cardiovascular: Heart tones S1 S2 present Rhythm is regular. Respiratory: Airway is patent Respiratory effort is even, unlabored, Respiratory pattern is regular, symmetrical. GI: Abdomen is flat, non-distended, Bowel sounds present X 4 quads. Abd is soft X 4 quads Abdomen is tender to palpation in right upper quadrant. : No signs and/or symptoms were reported regarding the genitourinary system. EENT: No signs and/or symptoms were reported regarding the EENT system. Derm: Skin is dry, Skin is red, Skin temperature is warm. Musculoskeletal: Range of motion: intact in all extremities. 12:39 Reassessment: Patient and/or family updated on plan of care and expected duration. Pain aa5 level reassessed. Patient states symptoms have not improved. Neuro: Level of Consciousness is awake, alert, obeys commands, Oriented to person, place, time, situation. Respiratory: Airway is patent Respiratory effort is even, unlabored, Respiratory pattern is regular, symmetrical. Derm: Skin is dry, Skin is red, Skin temperature is warm. 13:13 Reassessment: Pt back from CT scan . Reassessment: Patient and/or family updated on aa5 plan of care and expected duration. Pain level reassessed. Neuro: Level of Consciousness is awake, alert, obeys commands, Oriented to person, place, time, situation. Respiratory: Airway is patent Respiratory effort is even, unlabored, Respiratory pattern is regular, symmetrical. Derm: Skin is dry, Skin is red, Skin temperature is warm. 14:15 Reassessment: Dr. Teixeira at bedside speaking to pt about plan of care . aa5 14:30 Neuro: Level of Consciousness is awake, alert, obeys commands, Oriented to person, aa5 place, time, situation. Respiratory: Airway is patent Respiratory effort is even, unlabored, Respiratory pattern is regular, symmetrical. Derm: Skin is dry, Skin is red, Skin temperature is warm. Vital Signs: 11:32 BP 138 / 92; Pulse 148; Resp 18; Temp 97.8; Pulse Ox 100% on R/A; Pain 9/10; hb 11:51 BP 147 / 102; Pulse 116; Resp 20 S; Pulse Ox 97% on R/A; aa5 12:39 BP 149 / 100; Pulse 96; Resp 20 S; Pulse Ox 96% on R/A; Pain 9/10; aa5 13:15 BP 164 / 88; Pulse 103; Resp 18 S; Pulse Ox 99% on R/A; aa5 14:15 BP 151 / 96; Pulse 99; Resp 18 S; Temp 98.0(TE); Pulse Ox 99% on R/A; Pain 5/10; aa5 ED Course: 11:15 Patient arrived in ED. mr 11:15 None, None is Private Physician. mr 11:32 Triage completed. hb 11:32 Arm band placed on right wrist. hb 11:35 Colton Teixeira MD is Attending Physician. ps1 11:41 Mirlande Barraza, MIRYAM is Primary Nurse. aa5 11:45 Patient has correct armband on for positive identification. Placed in gown. Bed in low aa5 position. Call light in reach. Side rails up X2. 11:45 Inserted saline lock: 20 gauge in right antecubital area, using aseptic technique. IV aa5 inserted by Alf Canseco premises technician. 11:55 No provider procedures requiring assistance completed. aa5 13:06 CT Abd/Pelvis - W/Contrast In Process Unspecified. EDMS 14:30 IV discontinued, intact, bleeding controlled, No redness/swelling at site. Pressure aa5 dressing applied. Administered Medications: 12:05 Drug: NS 0.9% 1000 ml Route: IV; Rate: 1 bolus; Site: right antecubital; aa5 13:15 Follow up: IV Status: Completed infusion aa5 12:05 Drug: Zofran 4 mg Route: IVP; Site: right antecubital; aa5 12:15 Follow up: Response: No adverse reaction aa5 12:07 Drug: morphine 4 mg Route: IVP; Site: right antecubital; aa5 12:15 Follow up: Response: No adverse reaction aa5 12:53 Drug: TORadol 30 mg Route: IVP; Site: right antecubital; aa5 13:00 Follow up: Response: No adverse reaction aa5 Outcome: 14:01 Discharge ordered by . ps1 14:30 Discharged to home ambulatory, with friend. aa5 14:30 Condition: stable 14:30 Discharge instructions given to patient, Instructed on discharge instructions, follow up and referral plans. medication usage, Demonstrated understanding of instructions, follow-up care, medications, Prescriptions given X 2. 14:34 Patient left the ED. aa5 Signatures: Dispatcher [employer] REZATN Corin SweeneyMirlande, MIRYAM RN aa5 Suzanne Barnes RN RN hb Singer, Phillip, MD MD ps1
--- NOTE | 2018-03-21 14:02 | EDPHYS ---
Physician Documentation [facility] Name: Ankit Rosales Age: 37 yrs Sex: Male : 1980 Arrival Date: 03/21/2018 Time: 11:15 Bed 2 Private MD: None, None ED Physician Colton Teixeira HPI: 03/21 11:43 This 37 yrs old Male presents to ER via Ambulatory with complaints of ps1 Abdominal Pain. 11:58 Pain is localized in the epigastrum. History of alcoholic pancreatitis with stenting. ps1 Has been drinking tequila for last 2 days. Pain rated as moderate. No fever. Aroma of ETOH on or about the patient. . Historical: - Allergies: 11:32 NKDA; hb - PMHx: 11:32 GALLSTONES; left leg DVT; Cirrhosis; Pancreatitis; hb - Immunization history:: Adult Immunizations up to date. - Social history:: Smoking status: Patient/guardian denies using tobacco. - Ebola Screening: : No symptoms or risks identified at this time. ROS: 11:58 Constitutional: Negative for fever, chills, and weight loss, Eyes: Negative for injury, ps1 pain, redness, and discharge, Cardiovascular: Negative for chest pain, palpitations, and edema, Respiratory: Negative for shortness of breath, cough, wheezing, and pleuritic chest pain, Back: Negative for injury and pain, MS/Extremity: Negative for injury and deformity, Skin: Negative for injury, rash, and discoloration, Neuro: Negative for headache, weakness, numbness, tingling, and seizure. 11:58 Abdomen/GI: Positive for abdominal pain, nausea and vomiting. Exam: 11:58 Constitutional: This is a well developed, well nourished patient who is awake, alert, ps1 and in no acute distress. Head/Face: Normocephalic, atraumatic. Eyes: Pupils equal round and reactive to light, extra-ocular motions intact. Lids and lashes normal. Conjunctiva and sclera are non-icteric and not injected. Chest/axilla: Normal chest wall appearance and motion. Nontender with no deformity. No lesions are appreciated. Cardiovascular: Regular rate and rhythm. No gallops, murmurs, or rubs. Normal PMI, no JVD. No pulse deficits. Respiratory: Lungs have equal breath sounds bilaterally, clear to auscultation and percussion. No rales, rhonchi or wheezes noted. No increased work of breathing, no retractions or nasal flaring. Skin: Warm, dry with normal turgor. Normal color with no rashes, no lesions, and no evidence of cellulitis. MS/ Extremity: Pulses equal, no cyanosis. Neurovascular intact. Full, normal range of motion. Neuro: Awake and alert, GCS 15, oriented to person, place, time, and situation. Cranial nerves II-XII grossly intact. Sensory grossly intact. Psych: Awake, alert, with orientation to person, place and time. Behavior, mood, and affect are within normal limits. 11:58 Abdomen/GI: Inspection: abdomen appears normal, Bowel sounds: normal, Palpation: moderate abdominal tenderness, in the epigastric area. Vital Signs: 11:32 BP 138 / 92; Pulse 148; Resp 18; Temp 97.8; Pulse Ox 100% on R/A; Pain 9/10; hb 11:51 BP 147 / 102; Pulse 116; Resp 20 S; Pulse Ox 97% on R/A; aa5 12:39 BP 149 / 100; Pulse 96; Resp 20 S; Pulse Ox 96% on R/A; Pain 9/10; aa5 13:15 BP 164 / 88; Pulse 103; Resp 18 S; Pulse Ox 99% on R/A; aa5 14:15 BP 151 / 96; Pulse 99; Resp 18 S; Temp 98.0(TE); Pulse Ox 99% on R/A; Pain 5/10; aa5 MDM: 12:08 Patient medically screened. ps1 03/21 11:56 Order name: CBC with Diff; Complete Time: 12:17 ps1 03/21 11:56 Order name: Hepatic Function; Complete Time: 12:44 ps1 03/21 11:56 Order name: Lipase; Complete Time: 12:44 ps1 03/21 12:11 Order name: Basic Metabolic Panel; Complete Time: 12:44 EDMS 03/21 11:56 Order name: IV Saline Lock; Complete Time: 12:00 ps1 03/21 11:56 Order name: CT Abd/Pelvis - W/Contrast; Complete Time: 13:44 ps1 03/21 12:11 Order name: Alcohol Serum/Plasma; Complete Time: 13:44 EDMS 03/21 13:45 Interpretation: Abnormal: ETOH 384. ps1 03/21 12:35 Order name: Urine Dipstick--Ancillary (enter results); Complete Time: 14:22 eb 03/21 11:56 Order name: Labs collected and sent; Complete Time: 12:00 ps1 03/21 11:56 Order name: NPO; Complete Time: 12:00 ps1 03/21 11:56 Order name: Urine Dipstick-Ancillary (obtain specimen); Complete Time: 12:39 ps1 Administered Medications: 12:05 Drug: NS 0.9% 1000 ml Route: IV; Rate: 1 bolus; Site: right antecubital; aa5 13:15 Follow up: IV Status: Completed infusion aa5 12:05 Drug: Zofran 4 mg Route: IVP; Site: right antecubital; aa5 12:15 Follow up: Response: No adverse reaction aa5 12:07 Drug: morphine 4 mg Route: IVP; Site: right antecubital; aa5 12:15 Follow up: Response: No adverse reaction aa5 12:53 Drug: TORadol 30 mg Route: IVP; Site: right antecubital; aa5 13:00 Follow up: Response: No adverse reaction aa5 Disposition: 03/21/18 14:01 Discharged to Home. Impression: Epigastric pain, Alcohol abuse with intoxication. - Condition is Stable. - Discharge Instructions: Abdominal Pain, Adult, Alcohol Intoxication. - Prescriptions for Bentyl 10 mg Oral Capsule - take 1 capsule by ORAL route every 6 hours As needed; 40 capsule. Zofran 4 mg Oral Tablet - take 1 tablet by ORAL route every 12 hours As needed; 20 tablet. - Medication Reconciliation Form, Thank You Letter, Antibiotic Education, Prescription Opioid Use form. - Follow up: Private Physician; When: As needed; Reason: Recheck today's complaints, Continuance of care, Re-evaluation by your physician. Follow up: Emergency Department; When: As needed; Reason: Worsening of condition. - Problem is chronic. - Symptoms have improved. Signatures: Dispatcher [employer] EDMS Mirlande Barraza, RN RN aa5 Suzanne Barnes RN RN Colton Rankin MD MD ps1 Corrections: (The following items were deleted from the chart) 12:07 11:57 ETHANOL+C.LAB.BRZ ordered. EDDC EDMS 12:11 11:57 COMPREHENSIVE METABOLIC PANEL+C.LAB.BRZ ordered. [facility] EDMS 14:34 14:01 03/21/2018 14:01 Discharged to Home. Impression: Epigastric pain; Alcohol abuse aa5 with intoxication. Condition is Stable. Forms are Medication Reconciliation Form, Thank You Letter, Antibiotic Education, Prescription Opioid Use. Follow up: Private Physician; When: As needed; Reason: Recheck today's complaints, Continuance of care, Re-evaluation by your physician. Follow up: Emergency Department; When: As needed; Reason: Worsening of condition. Problem is chronic. Symptoms have improved. ps1
[2018-03-21 14:17] LABS: Urine Blood TRACE (NEG); Urine Glucose TRACE (NEG); Urine Protein 1+ (NEG); Urine Specific Gravity 1.005 (1.005-1.030)
[2018-03-21 14:48] VITALS: TEMP 97.8
[2018-03-21 14:52] VITALS: BP 149/100; O2SAT 96
== END 2018-03-21 14:34 | disposition home or self-care (01) ==
LOC: ER 11:12
DX: F10.129 Alcohol abuse with intoxication, unspecified (principal)
CPT/HCPCS: 36415; 74177; 80048; 80076; 80320; 81003; 83690; 85025; 96361; 96374; 96375; 99284; J2405; J7030; Q9967

== ENCOUNTER 2018-03-23 16:46 | Emergency (ER) | payer SELFPAY ==
--- OUTSIDE RECORDS SUMMARY | 2018-03-23 16:49 | XMS REPORT | Clinical Summary ---
:1980 Author Organization [facility] Address [address] [place] [address] Care Team Providers Name Role Phone Unavailable [...] Date Type Specialty Care Team Description 09/14/2017 [facility] Internal Zaida Martinez MD Alcohol abuse (Primary Dx); - Encounter Medicine Yahaira, Cystic mass of pancreas; 09/19/2017 Dario Pancreatic pseudocyst/cyst; MD Tavares Hemorrhagic pancreatitis Vanda Norton MD Shiekh Sroujieh, Mona Ahmad, MD 09/08/2017 Anesthesia Event Gastroenterology Shikha Motley MD 09/08/2017 Surgery Gastroenterology Bessy Hernandez UPPER ENDOSCOPY MD Fredi 09/01/2017 Orders Only General Internal Medicine 08/31/2017 [facility] Alcohol abuse; - Encounter MD Adriana Cystic mass of pancreas; 09/09/2017 Shamsee, History of DVT (deep vein thrombosis); Caden-Dannie Alcohol-induced acute pancreatitis without infection or necrosis; MD Nayely Smoker; Larry Rodriguez Portal vein thrombosis MD Connor Bishop Sahar, MD Neela, Nazia Huerta MD 05/19/2017 Anesthesia Event Gastroenterology Dorota Cortes MD 05/13/2017 [facility] Internal Ulysses Garcia, Alcohol-induced acute pancreatitis, unspecified complication status; - Encounter Medicine Alcohol abuse; 05/20/2017 Rafaela Samson, Cystic mass of pancreas; Smoker; Diomedes Alvarado Thrombocytosis (HCC); MD Lul Alcohol-induced acute pancreatitis without infection or necrosis; Smoking after 03/22/2017 Family History Medical History Relation Name Comments [...] PROCEDURE - 05/22/2017 12:43 ENDOSCOPY SCAN PM PULVERIZING AND SIFTING OPERATOR COMPREHENSIVE Routine 05/19/2017 12:54 Results for this METABOLIC PANEL PM PULVERIZING AND SIFTING OPERATOR procedure are in the results section. COMPREHENSIVE Routine 05/17/2017 4:26 Results for this METABOLIC PANEL AM PULVERIZING AND SIFTING OPERATOR procedure are in the results section. CBC (HEMOGRAM ONLY) Routine 05/17/2017 4:26 Results for this AM PULVERIZING AND SIFTING OPERATOR procedure are in the results section. CBC W/PLT COUNT & AUTO CHRIS 05/16/2017 11:05 Results for this DIFFERENTIAL AM PULVERIZING AND SIFTING OPERATOR procedure are in the results section. CBC W/PLT COUNT & AUTO CHRIS 05/16/2017 11:05 Results for this DIFFERENTIAL AM PULVERIZING AND SIFTING OPERATOR procedure are in the results section. HEPATIC FUNCTION PANEL CHRIS 05/16/2017 10:54 Results for this AM PULVERIZING AND SIFTING OPERATOR procedure are in the results section. BASIC METABOLIC PANEL Routine 05/16/2017 4:48 Results for this (7) AM PULVERIZING AND SIFTING OPERATOR procedure are in the results section. CBC (HEMOGRAM ONLY) Routine 05/15/2017 3:58 Results for this AM PULVERIZING AND SIFTING OPERATOR procedure are in the results section. BASIC METABOLIC PANEL Routine 05/15/2017 3:58 Results for this (7) AM PULVERIZING AND SIFTING OPERATOR procedure are in the results section. LIPASE Routine 05/14/2017 4:08 Results for this AM PULVERIZING AND SIFTING OPERATOR procedure are in the results section. CBC (HEMOGRAM ONLY) Routine 05/14/2017 4:08 Results for this AM PULVERIZING AND SIFTING OPERATOR procedure are in the results section. LIPID PANEL Routine 05/14/2017 4:08 Results for this AM PULVERIZING AND SIFTING OPERATOR procedure are in the results section. HEPATIC FUNCTION PANEL Routine 05/14/2017 4:08 Results for this AM PULVERIZING AND SIFTING OPERATOR procedure are in the results section. BASIC METABOLIC PANEL Routine 05/14/2017 4:08 Results for this (7) AM PULVERIZING AND SIFTING OPERATOR procedure are in the results section. after 03/22/2017 Results Calcium, Ionized (09/19/2017 6:02 AM CDT)Only the most recent of3 resultswithin the time period is included. Calcium, Ion 1.11 (L) 1.12 - 1.27 mmol/L [facility] pH, Blood 7.40 [facility] Specimen Blood - Line, Venous Performing Organization Address [facility] Phone Number [address] [address] [place] Phosphorus (09/19/2017 6:02 AM CDT)Only the most recent of10 resultswithin the time period is included. Phosphorus 3.0 2.3 - 4.7 mg/dL [facility] Specimen Blood - Line, Venous Performing Organization Address [facility] Phone Number [address] [address] CENTER Magnesium (09/19/2017 6:02 AM CDT)Only the most recent of10 resultswithin the time period is included. Magnesium 2.0 1.6 - 2.6 mg/dL [facility] Specimen Blood - Line, Venous Performing Organization Address [facility] Phone Number [address] [address] CENTER Basic Metabolic Panel (09/19/2017 6:02 AM CDT)Only the most recent of18 resultswithin the time period is included. Sodium 138 136 - 145 meq/L [facility] Potassium 3.8 3.5 - 5.1 meq/L [facility] Chloride 109 (H) 98 - 107 meq/L [facility] CO2 22 22 - 29 meq/L [facility] BUN 10 7 - 21 mg/dL [facility] Creatinine 0.53 (L) 0.57 - 1.25 mg/dL [facility] Glucose 88 70 - 105 mg/dL [facility] Calcium 8.5 8.4 - 10.2 mg/dL [facility] EGFR 174Comment: ESTIMATED GFR IS mL/min/1.73 sq m [facility] NOT ACCURATE [facility] CLEARANCE IN PREDICTING GLOMERULAR FILTRATION RATE. ESTIMATED GFR IS NOT APPLICABLE FOR DIALYSIS PATIENTS. Specimen Blood - Line, Venous Performing Organization Address City/State/Zipcode Phone Number [facility] [address] [place] [address] [phone] CENTER CBC with platelet count + automated diff (09/17/2017 3:54 AM CDT)Only the most recent of12 resultswithin the time period is included. WBC 10.1 3.5 - 10.5 K/L [facility] RBC 4.16 (L) 4.63 - 6.08 M/L [facility] Hemoglobin 12.6 (L) 13.7 - 17.5 GM/DL [facility] Hematocrit 37.3 (L) 40.1 - 51.0 % [facility] MCV 89.7 79.0 - 92.2 fL [facility] MCH 30.3 25.7 - 32.2 pg [facility] MCHC 33.8 32.3 - 36.5 GM/DL [facility] RDW 14.0 11.6 - 14.4 % [facility] Platelets 541 (H) 150 - 450 K/CU MM [facility] MPV 9.1 (L) 9.4 - 12.4 fL [facility] nRBC 0 0 - 0 /100 WBC [facility] % Neutros 66 % [facility] % Lymphs 20 % [facility] % Monos 10 % [facility] % Eos 3 % [facility] % Baso 1 % [facility] # Neutros 6.65 (H) 1.78 - 5.38 K/L [facility] # Lymphs 2.05 1.32 - 3.57 K/L [facility] # Monos 1.03 (H) 0.30 - 0.82 K/L [facility] # Eos 0.26 0.04 - 0.54 K/L [facility] # Baso 0.10 (H) 0.01 - 0.08 K/L [facility] Immature Granulocytes-Relative 0 0 - 1 % [facility] Specimen Blood - Line, Venous Performing Organization Address City/State/Zipcode Phone Number [facility] [address] [place] [address] [phone] CENTER US abdominal with doppler (09/17/2017 3:00 AM CDT) Narrative Performed At FINAL REPORT [facility] Comparison exam: Right upper quadrant ultrasound 09/01/2017. [...] MD Report Verified Date/Time:09/17/2017 04:01:12 Reading Location: [facility] C013X Ortho Consult Reading Room Procedure [...] Report Verified Date/Time: 09/17/2017 04:01:12 Reading Location: [facility] C013X Ortho Consult Reading Room Performing Organization Address City/State/Zipcode Phone Number [facility] IR Embolization Arterial (09/16/2017 6:00 PM CDT) Narrative Performed At FINAL REPORT [facility] Mesenteric angiogram and embolization History: 37-year-old male with hemorrhagic pancreatic pseudocyst. Modality: Ultrasound and fluoroscopy. Sedation: Moderate sedation was administered. 2.5 mg of Versed and 125 mcg of fentanyl IV was used for moderate sedation monitored under my direction. Total intra-service time of sedation [id number]. The patient's vital signs were monitored throughout the procedure and recorded in the patient's medical record by the nurse. Anesthesia:Two percent Lidocaine without epinephrine. Approach:Right common femoral artery. Estimated blood loss:< 5 cc. Specimen: None. furnace and wash equipment operator: Michael Ortega MD. Insurance Administrator: None.. Fluoroscopy Time: 31.7 min. Reference [...] over 0.035 Bentson wire for a 5 Cuban by 10 cm vascular sheath. A 5 Cuban Sutton B catheter was used to select the celiac trunk and SMA for multiple DSA runs. The Sutton catheter was then remanipulated into the celiac trunk. Next, using a 2.4 Cuban microcatheter and 0.016 inch microwire, the gastroduodenal artery was cannulated. Subsequently, the catheter was manipulated into the feeding branch supplying the abnormal area of hyperemia/vessel irregularity. From this location, embolization was performed using Interlock microcoils. The microcatheter was retracted into the GDA proximally and postdilatation DSA was performed. Next, the Sutton base catheter was manipulated into the SMA. Using a 2. Cuban directional microcatheter and 0.014 inch microwire, the [...] MD Report Verified Date/Time:09/20/2017 16:25:06 Reading Location: [place] [address] Angio Body Reading Room Procedure Note Interface, [...] blood loss: < 5 cc. Specimen: None. furnace and wash equipment operator: Michael Ortega MD. Insurance Administrator: None.. Fluoroscopy Time: 31.7 min. Reference [...] over 0.035 Bentson wire for a 5 Cuban by 10 cm vascular sheath. A 5 Cuban Sutton B catheter was used to select the celiac trunk and SMA for multiple DSA runs. The Sutton catheter was then remanipulated into the celiac trunk. Next, using a 2.4 Cuban microcatheter and 0.016 inch microwire, the gastroduodenal artery was cannulated. Subsequently, the catheter was manipulated into the feeding branch supplying the abnormal area of hyperemia/vessel irregularity. From this location, embolization was performed using Interlock microcoils. The microcatheter was retracted into the GDA proximally and postdilatation DSA was performed. Next, the Sutton base catheter was manipulated into the SMA. Using a 2. Cuban directional microcatheter and 0.014 inch microwire, the [...] Report Verified Date/Time: 09/20/2017 16:25:06 Reading Location: [place] [address] Angio Body Reading Room Performing Organization Address City/[facility]/Zipcode Phone Number GE RIS C-Reactive Protein (09/16/2017 12:32 PM CDT)Only the most recent of2 resultswithin the time period is included. CRP 0.97 (H) 0.00 - 0.50 mg/dL [facility] Specimen Blood - Central Venous Line Performing Organization Address City/State/Zipcode Phone Number [facility] [address] [place] [address] [phone] CENTER PT/aPTT (09/16/2017 10:54 AM CDT) Protime 16.2 (H) 11.7 - 14.7 seconds [facility] INR 1.3 <=5.9 [facility] PTT 30.2 22.5 - 36.0 seconds [facility] Specimen Blood - Central Venous Line Narrative Performed At [facility] RECOMMENDED COUMADIN/WARFARIN INR THERAPY RANGES STANDARD DOSE: 2.0 - 3.0 Includes: PROPHYLAXIS for venous thrombosis, systemic embolization; TREATMENT for venous thrombosis and/or pulmonary embolus. HIGH RISK: Target INR is 2.5-3.5 for patients with mechanical heart valves. Performing Organization Address City/[facility] Phone Number [address] [address] [place] Triglycerides (09/16/2017 4:20 AM CDT) Triglycerides 78 mg/dL [facility] Specimen Blood - Line, Venous Narrative Performed At [facility] TRIGLYCERIDE REFERENCE RANGE Low Risk<150 Borderline Risk 150-199 High Hlbz126-105 Very High Risk >=500 Performing Organization Address [facility] Phone Number [address] [address] CENTER Lipase (09/16/2017 4:20 AM CDT)Only the most recent of5 resultswithin the time period is included. Lipase 114 (H) 8 - 78 U/L [facility] Specimen Blood - Line, Venous Performing Organization Address [facility] Phone Number [address] [address] [place] Hepatic function panel (09/16/2017 4:20 AM CDT)Only the most recent of6 resultswithin the time period is included. Protein, Total 6.5 6.0 - 8.3 gm/dL [facility] Albumin 3.7 3.5 - 5.0 g/dL [facility] Total Bilirubin 0.3 0.2 - 1.2 mg/dL [facility] Bilirubin, Direct 0.1 0.1 - 0.5 mg/dL [facility] Alkaline Phosphatase 79 40 - 150 U/L [facility] AST 14 5 - 34 U/L [facility] ALT 9 6 - 55 U/L [facility] Specimen Blood - Line, Venous Performing Organization Address City/State/Zipcode Phone Number [facility] [address] [place] [address] [phone] CENTER XR chest 1 view portable / bedside (09/15/2017 7:43 PM CDT) Narrative Performed At FINAL REPORT [facility] History: PICC line placement. Comparison: None. Findings: 2 frontal views of the chest are submitted. A left PICC line tip overlies the SVC. The cardiomediastinal contours are unremarkable. There is no focal consolidation, pneumothorax, large pleural effusion or evidence of overt pulmonary edema. There is no acute bony abnormality. Signed: George Keys MD Report Verified Date/Time:09/15/2017 19:53:01 Reading Location: [address] Reading Room Procedure Note Interface, External [...] Report Verified Date/Time: 09/15/2017 19:53:01 Reading Location: [address] Reading Room Performing Organization Address City/State/Zipcode Phone Number [facility] PERIPHERAL VASCULAR REPORT - SCAN (09/15/2017 5:20 PM CDT) Narrative Performed At Venous doppler legs bilateral (09/15/2017 2:49 PM CDT) Ejection Fraction [facility] MKCKESSON CPACS Impressions Performed At Right Impression [facility] CPACS 1. There is [...] PV LAB - Lower Extremities DVT Study [facility] Demographics Patient NameANKIT ROSALES Date of Study09/15/2017 37 Visit [id number] nder Male of Birth1980 Number Referring Julissa AlfonsoNancy, Room [id number] Physician Heat Treating Operator David Chan. Interpreting Prema Gabriel RVT, Greg [...] of Study 09/15/2017 Age 37 Visit Number [id number] Gender Male Date of 1980 Number Referring Julissa Arguelles, Room Number 2161 Physician Heat Treating Operator David Chan. Interpreting Prema Gabriel, T, [facility] Physician , RPVI Procedure Type of [...] Lab [facility] [address] [address] Enrique Holliday MD, PhD, GIDEON Performing Organization Address [facility] Cent[facility] Phone Number [place] [address] [place] [address] Peripheral Blood Smear - Path Review (09/14/2017 4:37 AM CDT) Pathologist Review Thrombocytosis. No [facility] circulating blasts or MEDICAL CENTER increased schistocytes. Clinical follow up recommended. Pathologist: Enoch Saba, [facility] Miladis(electronic signature) [facility] Specimen Blood Performing Organization Address [facility] Phone Number [facility] [address] [place] [address] [phone] CENTER Vitamin B12 and Folate (09/14/2017 4:37 AM CDT) Vitamin B12 527 213 - 816 pg/mL [facility] Folate 12.3 >=7.0 ng/mL [facility] Specimen Blood Performing Organization Address City/[facility] Phone Number [facility] [address] [place] [address] CENTER RHYTHM STRIP - SCAN (09/10/2017 10:40 AM CDT) Narrative Performed At aPTT (09/09/2017 9:37 AM CDT)Only the most recent of9 resultswithin the time period is included. PTT 44.5 (H) 22.5 - 36.[address] [facility] Specimen Blood Performing Organization Address City/State/Zipcode Phone Number [facility] [address] [place] [address] CENTER REPORT OF PROCEDURE - ENDOSCOPY URL (09/08/2017 5:47 PM CDT) Narrative Performed At FINE NEEDLE ASPIRATE (FNA) REQUEST (09/08/2017 5:43 PM CDT) Cytology See Separate Report [facility] Specimen Fine Needle Aspirate - Pancreas Performing Organization Address City/State/Zipcode Phone Number [facility] [address] [place] [address] CENTER Fine Needle Aspirate by Clinician (09/08/2017 5:43 PM CDT) Case Report Medical Cytology Report Case: [id number] [facility] Authorizing Provider:Bessy Hernandez MDCollected: 09/08/[address] [facility] Ordering Location: [address] Received: 09/08/2017 1814 Service Pathologist: Mir Anthony MD Specimen:Pancreas DIAGNOSIS PANCREAS HEAD CYSTIC LESION FNA BY CLINICIAN (CYTOSPINS AND CELL BLOCK OF ASPIRATE): [facility] - NO MALIGNANT CELLS IDENTIFIED [facility] - The mucin stain shows focal weak staining Signing Pathologist Direct Phone Line: [phone] COMMENT The cell block shows [facility] non-inflammed pancreatic [facility] acinar tissue. CPT Code(s) 77435, 18466, 37083 [facility] CLINICAL DATA (4.9 X 4.8 cm) Cystic [facility] lesion in the pancreatic [facility] head SPECIMEN SOURCE PANCREAS HEAD CYSTIC [facility] LESION FNA [facility] GROSS DESCRIPTION 25 mls in cytorich red; 4 cytospins, 1 mucin stain, cell block [facility] Collected: [id number] [facility] Received: [id number] Technical component was [facility] performed at Center, Department of [facility] Pathology, [address] [place] [address], Professional component was [facility] performed at Center, Department of [facility] Pathology, [address] [place] [address], Specimen Fine Needle Aspirate - Pancreas Narrative Performed At Performing Organization Address City/State/Zipcode Phone Number [facility] [address] [place], [place] [phone] CENTER CT abd/pelvis - pancreas evaluation (09/04/2017 12:20 AM CDT) Narrative Performed At FINAL REPORT [facility] CT, ABDOMEN - PELVIS, PANCREAS EVALUATION INDICATION: [...] MD Report Verified Date/Time:09/04/2017 00:22:52 Reading Location: [address] Reading Room Procedure Note Interface, External [...] Report Verified Date/Time: 09/04/2017 00:22:52 Reading Location: [address] Reading Room Performing Organization Address City/State/Zipcode Phone Number [facility] POC-Glucose meter (09/02/2017 7:29 AM CDT)Only the most recent of2 resultswithin the time period is included. POC-Glucose Meter 140 (H)Comment: TESTED AT 70 - 110 mg/dL [facility] [address] [facility] [id number] Specimen Blood Performing Organization Address [facility] Phone Number [address] [phone] CENTER ECG 12 lead (09/01/2017 6:18 PM CDT) Narrative Performed At Ventricular Rate 77 BPM GE MUSE Atrial Rate 77 BPM P-R Interval 162 ms QRS Duration 98 ms Q-T Interval 404 ms QTC Calculation(Bazett) 457 ms P [place] -8 degrees R Elco 30 degrees T [place] -1 degrees Normal sinus rhythm RSR' or [...] 404 ms QTC Calculation(Bazett) 457 ms P [place] -8 degrees R [place] 30 degrees T [place] -1 degrees Normal sinus rhythm RSR' or QR pattern in V1 suggests right ventricular conduction delay Cannot rule out Anterior infarct , age undetermined Abnormal ECG No previous ECGs available Confirmed by MD [place] ([id number]) on 09/02/2017 2:25:25 PM Performing Organization Address City/[facility] Phone Number [employer] US abdomen limited (09/01/2017 5:23 AM CDT) Narrative Performed At FINAL REPORT GE [facility] INDICATION: 37-year-old male with abdominal pain and [...] MD Report Verified Date/Time:09/01/2017 09:53:12 Reading Location: [address] Ultrasound Reading Room Procedure Note Interface, [...] Report Verified Date/Time: 09/01/2017 09:53:12 Reading Location: [address] Ultrasound Reading Room Performing Organization Address City/State/Zipcode Phone Number GE RIS TSH/Free T4 If Indicated (09/01/2017 3:12 AM CDT) TSH 0.36 0.35 - 4.94 uIU/mL [facility] Specimen Blood - Arm, Left Performing Organization Address [facility] Phone Number [address] [address] CENTER Troponin I (09/01/2017 3:12 AM CDT) Troponin I <0.01 0.00 - 0.03 ng/mL [facility] Specimen Blood - Arm, Left Narrative Performed At [facility] Troponin I (TnI) levels must be interpreted [...] disease, and persistent tachyarrhythmia. Performing Organization Address [facility] Phone Number [address] [address] [phone] CENTER Sedimentation rate (09/01/2017 3:12 AM CDT) Sed Rate 3 0 - 15 mm/HR [facility] Specimen Blood - Arm, Left Performing Organization Address [facility] Phone Number [address] [address] CENTER Hemoglobin A1c (09/01/2017 3:12 AM CDT) Hemoglobin A1C 4.7 4.3 - 6.1 % [facility] Specimen Blood - Arm, Left Performing Organization Address [facility] Phone Number [address] [address] CENTER Creatine Kinase (CK), Total and MB (09/01/2017 3:12 AM CDT) Total CK 29 29 - 200 U/L [facility] CK-MB 0.4 0.0 - 6.6 ng/mL [facility] MB Relative Index 1.4 % [facility] Specimen Blood - Arm, Left Narrative Performed At CK-MB Reference Range: [facility] <6.7Normal 6.7-10.0Borderline >10.0 Abnormal Performing Organization Address City/[facility] Cent[facility]ode Phone Number [address] [address] [place] Amylase (09/01/2017 3:12 AM CDT) Amylase 383 (H) 25 - 125 U/L [facility] Specimen Blood - Arm, Left Performing Organization Address [facility] Phone Number [address] [address] [place] Lipid panel (09/01/2017 3:12 AM CDT)Only the most recent of2 resultswithin the time period is included. Triglycerides 76 mg/dL [facility] Cholesterol 118 mg/dL [facility] HDL 37 mg/dL [facility] LDL Calculated 66 mg/dL [facility] Specimen Blood - Arm, Left Narrative Performed At [facility] Triglyceride Reference Range: Low Risk <150 [id number] High Risk 200-499 Very High Risk>=500 Cholesterol Reference Range: Low Risk <200 [id number] High Risk>240 HDL Cholesterol Reference Range: Low Risk >=60 High Risk <40 LDL Cholesterol Reference Range: Optimal<100 Near [id number] Very High >=190 Performing Organization Address City/[facility] Phone Number [address] [address] [place] Blood culture (09/01/2017 3:11 AM CDT)Only the most recent of2 resultswithin the time period is included. Result No growth in 5 days [facility] Specimen Blood - Arm, Right Performing Organization Address City/State/Zipcode Phone Number [facility] [address] [place] [address] CENTER EKG-SCANNED (05/22/2017 12:43 PM PULVERIZING AND SIFTING OPERATOR) Narrative Performed At Comprehensive metabolic panel (05/19/2017 12:54 PM PULVERIZING AND SIFTING OPERATOR)Only the most recent of2 resultswithin the time period is included. Protein, Total 7.8 6.0 - 8.3 gm/dL [facility] Albumin 3.9 3.5 - 5.0 g/dL [facility] Alkaline Phosphatase 62 40 - 150 U/L [facility] Total Bilirubin 0.3 0.2 - 1.2 mg/dL [facility] Sodium 139 136 - 145 meq/L [facility] Potassium 4.2 3.5 - 5.1 meq/L [facility] Chloride 104 98 - 107 meq/L [facility] CO2 26 22 - 29 meq/L [facility] BUN 9 7 - 21 mg/dL [facility] Creatinine 0.64 0.57 - 1.25 mg/dL [facility] Glucose 78 70 - 105 mg/dL [facility] Calcium 9.5 8.4 - 10.2 mg/dL [facility] AST 18 5 - 34 U/L [facility] ALT 8 6 - 55 U/L [facility] EGFR 141Comment: ESTIMATED mL/min/1.73 sq m [facility] GFR IS NOT ACCURATE [facility] CREATININE CLEARANCE IN PREDICTING GLOMERULAR FILTRATION RATE. ESTIMATED GFR IS NOT APPLICABLE FOR DIALYSIS PATIENTS. Specimen Blood Performing Organization Address City/[facility] Cent[facility]i Phone Number [facility] [address] [place] [address] [phone] [place] CBC (Hemogram only) (05/17/2017 4:26 AM PULVERIZING AND SIFTING OPERATOR)Only the most recent of3 resultswithin the time period is included. WBC 6.4 3.5 - 10.5 K/L [facility] RBC 3.84 (L) 4.63 - 6.08 M/L [facility] Hemoglobin 11.5 (L) 13.7 - 17.5 GM/DL [facility] Hematocrit 35.2 (L) 40.1 - 51.0 % [facility] MCV 91.7 79.0 - 92.2 fL [facility] MCH 29.9 25.7 - 32.2 pg [facility] MCHC 32.7 32.3 - 36.5 GM/DL [facility] RDW 14.1 11.6 - 14.4 % [facility] Platelets 434 150 - 450 K/CU MM [facility] MPV 9.4 9.4 - 12.4 fL [facility] nRBC 0 0 - 0 /100 WBC [facility] Specimen Blood - Arm, Right Performing Organization Address City/[facility]/Zipcode Phone Number [facility] [address] [place] [address] [phone] [place] after 03/22/2017 Advance Directives For more information, please contact:[address] [phone] Code Status Date Activated Date Inactivated Comments [...]
--- OUTSIDE RECORDS SUMMARY | 2018-03-23 16:51 | XMS REPORT ---
:1980 [facility] [address] [place] [address] Care Team Providers Name Role Phone VANI [...] WALLER, 2017-09-[address] at [facility] for FINAL REPORT PATIENT EXTENSIVE - 16:25:00 evidence of bleedCall with ID: [id number] ARTERIAL questions: [phone] or Mesenteric angiogram [facility] for and embolization exam:->Pancreaticoduodednal artery with intermittent [...] blood loss: < 5 cc. Specimen: None. truck operator: Michael Ortega MD. Coin Box Inspector: None.. Fluoroscopy Time: 31.7 min.Reference Air Kerma [...] over 0.035 Bentson wire for a 5 [place] Korean by 10 cm vascular sheath. A 5 [place] Sutton B catheter was used to select the celiac trunk and SMA for multiple DSA runs. The Sutton catheter was then remanipulated into the celiac trunk. Next, using a 2.4 [place] microcatheter and 0.016 inch microwire, the gastroduodenal artery was cannulated. Subsequently, the catheter was manipulated into the feeding branch supplying the abnormal area of hyperemia/vessel irregularity. From this location, embolization was performed using Interlock microcoils. The microcatheter was retracted into the GDA proximally and postdilatation DSA was performed. Next, the Sutton base catheter was manipulated into the SMA. Using a 2. [place] directional microcatheter and 0.014 inch microwire, the [...] Ortegaort Verified Date/Time: 09/20/2017 16:25:06 Reading Location: [place] [address] Angio Body Reading Room IUM, IONIZED 2017-09-19 07:02:00 Test Item Value Reference Range Comments CALCIUM IONIZED (BEAKER) (test nsjz=351) 1.11 mmol/L 1.12-1.27 PH, BLOOD (BEAKER) (test ykpa=0158) 7.40 [id number] 06:35:00 Test Item Value Reference Range Comments PHOSPHORUS (BEAKER) (test wggb=927) 3.0 mg/dL 2.3-4.7 [id number] 06:35:00 Test Item Value Reference Range Comments MAGNESIUM (BEAKER) (test jqje=723) 2.0 mg/dL 1.6-2.6 BASIC METABOLIC [id number] 06:35:00 Test Item Value Reference Range Comments SODIUM (BEAKER) (test 138 meq/L 136-145 dpqf=678) POTASSIUM (BEAKER) (test 3.8 meq/L 3.5-5.1 usct=697) CHLORIDE (BEAKER) (test 109 meq/L 98-107 anmu=811) CO2 (BEAKER) (test 22 meq/L 22-29 xfcc=885) BLOOD UREA NITROGEN 10 mg/dL 7-21 (BEAKER) (test hlyd=348) CREATININE (BEAKER) (test 0.53 mg/dL 0.57-1.25 vpen=406) GLUCOSE RANDOM (BEAKER) 88 mg/dL 70-105 (test ccxv=047) CALCIUM (BEAKER) (test 8.5 mg/dL 8.4-10.2 jxxe=967) EGFR (BEAKER) (test 174 mL/min/1.73 sq m ESTIMATED GFR IS NOT fqjj=9500) ACCURATE CREATININE CLEARANCE IN PREDICTING GLOMERULAR FILTRATION RATE. ESTIMATED GFR IS NOT APPLICABLE FOR DIALYSIS PATIENTS. CALCIUM, [id number] 07:12:00 Test Item Value Reference Range Comments CALCIUM IONIZED (BEAKER) (test qjyo=705) 1.09 mmol/L 1.12-1.27 PH, BLOOD (BEAKER) (test ldjh=8454) 7.41 [id number] 06:38:00 Test Item Value Reference Range Comments PHOSPHORUS (BEAKER) (test lqqd=663) 3.0 mg/dL 2.3-4.7 [id number] 06:38:00 Test Item Value Reference Range Comments MAGNESIUM (BEAKER) (test hjof=253) 2.1 mg/dL 1.6-2.6 BASIC METABOLIC [id number] 06:38:00 Test Item Value Reference Range Comments SODIUM (BEAKER) (test 137 meq/L 136-145 tyzc=328) POTASSIUM (BEAKER) (test 3.7 meq/L 3.5-5.1 xvxm=603) CHLORIDE (BEAKER) (test 108 meq/L 98-107 nnit=043) CO2 (BEAKER) (test 22 meq/L 22-29 vcys=201) BLOOD UREA NITROGEN 10 mg/dL 7-21 (BEAKER) (test qdwu=058) CREATININE (BEAKER) (test 0.52 mg/dL 0.57-1.25 rlsn=352) GLUCOSE RANDOM (BEAKER) 99 mg/dL 70-105 (test kmju=670) CALCIUM (BEAKER) (test 8.6 mg/dL 8.4-10.2 wani=536) EGFR (BEAKER) (test 178 mL/min/1.73 sq m ESTIMATED GFR IS NOT hrao=7712) ACCURATE CREATININE CLEARANCE IN PREDICTING GLOMERULAR FILTRATION RATE. ESTIMATED GFR IS NOT APPLICABLE FOR DIALYSIS PATIENTS. CALCIUM, [id number] 04:45:00 Test Item Value Reference Range Comments CALCIUM IONIZED (BEAKER) (test soxb=001) 1.14 mmol/L 1.12-1.27 PH, BLOOD (BEAKER) (test japd=8340) 7.39 [id number] 04:22:00 Test Item Value Reference Range Comments PHOSPHORUS (BEAKER) (test ieue=971) 2.8 mg/dL 2.3-4.7 [id number] 04:22:00 Test Item Value Reference Range Comments MAGNESIUM (BEAKER) (test jexy=370) 1.9 mg/dL 1.6-2.6 BASIC METABOLIC [id number] 04:22:00 Test Item Value Reference Range Comments SODIUM (BEAKER) (test 134 meq/L 136-145 bnva=900) POTASSIUM (BEAKER) (test 3.3 meq/L 3.5-5.1 grrr=027) CHLORIDE (BEAKER) (test 103 meq/L 98-107 jciu=125) CO2 (BEAKER) (test 23 meq/L 22-29 wbwi=013) BLOOD UREA NITROGEN 11 mg/dL 7-21 (BEAKER) (test bawj=059) CREATININE (BEAKER) (test 0.55 mg/dL 0.57-1.25 hjkf=349) GLUCOSE RANDOM (BEAKER) 112 mg/dL 70-105 (test vvgn=347) CALCIUM (BEAKER) (test 8.7 mg/dL 8.4-10.2 tfyt=317) EGFR (BEAKER) (test 167 mL/min/1.73 sq m ESTIMATED GFR IS NOT dxpw=0846) ACCURATE CREATININE CLEARANCE IN PREDICTING GLOMERULAR FILTRATION RATE. ESTIMATED GFR IS NOT APPLICABLE FOR DIALYSIS PATIENTS. CBC W/PLT COUNT & AUTO [id number] 04:11:00 Test Item Value Reference Range Comments WHITE BLOOD CELL COUNT (BEAKER) (test eiji=147) 10.1 K/ L 3.5-10.5 RED BLOOD CELL COUNT (BEAKER) (test gxqq=590) 4.16 M/ L 4.63-6.08 HEMOGLOBIN (BEAKER) (test himx=224) 12.6 GM/DL 13.7-17.5 HEMATOCRIT (BEAKER) (test dulf=389) 37.3 % 40.1-51.0 MEAN CORPUSCULAR VOLUME (BEAKER) (test syrh=158) 89.7 fL 79.0-92.2 MEAN CORPUSCULAR HEMOGLOBIN (BEAKER) (test 30.3 pg 25.7-32.2 jqna=379) MEAN CORPUSCULAR HEMOGLOBIN CONC (BEAKER) (test 33.8 GM/DL 32.3-36.5 bege=816) RED CELL DISTRIBUTION WIDTH (BEAKER) (test 14.0 % 11.6-14.4 tytk=381) PLATELET COUNT (BEAKER) (test nher=745) 541 K/CU MM 150-450 MEAN PLATELET VOLUME (BEAKER) (test byup=702) 9.1 fL 9.4-12.4 NUCLEATED RED BLOOD CELLS (BEAKER) (test 0 /100 WBC 0-0 xitu=808) NEUTROPHILS RELATIVE PERCENT (BEAKER) (test 66 % jqwe=990) LYMPHOCYTES RELATIVE PERCENT (BEAKER) (test 20 % ludu=207) MONOCYTES RELATIVE PERCENT (BEAKER) (test 10 % tkdx=473) EOSINOPHILS RELATIVE PERCENT (BEAKER) (test 3 % lgvp=293) BASOPHILS RELATIVE PERCENT (BEAKER) (test 1 % rmfj=251) NEUTROPHILS ABSOLUTE COUNT (BEAKER) (test 6.65 K/ L 1.78-5.38 kuws=039) LYMPHOCYTES ABSOLUTE COUNT (BEAKER) (test 2.05 K/ L 1.32-3.57 dipe=659) MONOCYTES ABSOLUTE COUNT (BEAKER) (test 1.03 K/ L 0.30-0.82 urei=416) EOSINOPHILS ABSOLUTE COUNT (BEAKER) (test 0.26 K/ L 0.04-0.54 shrd=839) BASOPHILS ABSOLUTE COUNT (BEAKER) (test 0.10 K/ L 0.01-0.08 rfeo=243) IMMATURE GRANULOCYTES-RELATIVE PERCENT (BEAKER) 0 % 0-1 (test jian=6665) U/S, ABDOMINAL, WITH [id number] 04:01:00Reason for exam:->? hx of PV thrombosisFINAL [...] Gaspar Verified Date/Time: 09/17/2017 04:01:12 Reading Location: [facility] [id number] Ortho Consult Reading Room 04 :01 AMC-REACTIVE [id number] 13:17:00 Test Item Value Reference Range Comments C-REACTIVE PROTEIN (BEAKER) (test eztc=808) 0.97 mg/dL 0.00-0.50 [id number] 11:12:00 Test Item Value Reference Range Comments PROTIME (BEAKER) (test spxp=793) 16.2 seconds 11.7-14.7 INR (BEAKER) (test gvpm=952) 1.3 <=5.9 PARTIAL THROMBOPLASTIN TIME (BEAKER) (test 30.2 seconds 22.5-36.0 hwas=712) RECOMMENDED COUMADIN/WARFARIN INR THERAPY RANGESSTANDARD DOSE: 2.0 - 3.0 Includes: PROPHYLAXIS forvenous thrombosis, systemic embolization; TREATMENT for venous thrombosis and/or pulmonary embolus.HIGH RISK: Target INR is 2.5-3.5 for patients with mechanical heart valves.[id number] 05:28:00 Test Item Value Reference Range Comments TRIGLYCERIDES (BEAKER) (test fage=811) 78 mg/dL TRIGLYCERIDE REFERENCE RANGELow Risk <150Borderline Risk 150-199High Risk 200-499Very High Risk>=[id number] 05:28:00 Test Item Value Reference Range Comments MAGNESIUM (BEAKER) (test ecql=183) 1.9 mg/dL 1.6-2.6 [id number] 05:28:00 Test Item Value Reference Range Comments PHOSPHORUS (BEAKER) (test veqy=732) 3.5 mg/dL 2.3-4.7 BASIC METABOLIC [id number] 05:28:00 Test Item Value Reference Range Comments SODIUM (BEAKER) (test 134 meq/L 136-145 fxvl=838) POTASSIUM (BEAKER) (test 3.6 meq/L 3.5-5.1 rfgw=892) CHLORIDE (BEAKER) (test 105 meq/L 98-107 ahvr=384) CO2 (BEAKER) (test 23 meq/L 22-29 lfki=736) BLOOD UREA NITROGEN 13 mg/dL 7-21 (BEAKER) (test opac=179) CREATININE (BEAKER) (test 0.56 mg/dL 0.57-1.25 pfqr=879) GLUCOSE RANDOM (BEAKER) 83 mg/dL 70-105 (test kbzj=463) CALCIUM (BEAKER) (test 8.8 mg/dL 8.4-10.2 rwrl=341) EGFR (BEAKER) (test 163 mL/min/1.73 sq m ESTIMATED GFR IS NOT ebkr=0331) ACCURATE CREATININE CLEARANCE IN PREDICTING GLOMERULAR FILTRATION RATE. ESTIMATED GFR IS NOT APPLICABLE FOR DIALYSIS PATIENTS. HEPATIC FUNCTION [id number] 05:28:00 Test Item Value Reference Range Comments TOTAL PROTEIN (BEAKER) (test dgbc=841) 6.5 gm/dL 6.0-8.3 ALBUMIN (BEAKER) (test hhdc=6190) 3.7 g/dL 3.5-5.0 BILIRUBIN TOTAL (BEAKER) (test vgpu=691) 0.3 mg/dL 0.2-1.2 BILIRUBIN DIRECT (BEAKER) (test byfu=831) 0.1 mg/dL 0.1-0.5 ALKALINE PHOSPHATASE (BEAKER) (test uqrr=673) 79 U/L 40-150 AST (SGOT) (BEAKER) (test nvav=438) 14 U/L 5-34 ALT (SGPT) (BEAKER) (test xrqm=524) 9 U/L 6-55 [id number] 05:28:00 Test Item Value Reference Range Comments LIPASE (BEAKER) (test wkia=612) 114 U/L 8-78 CBC W/PLT COUNT & AUTO [id number] 05:03:00 Test Item Value Reference Range Comments WHITE BLOOD CELL COUNT (BEAKER) (test dyqt=093) 7.2 K/ L 3.5-10.5 RED BLOOD CELL COUNT (BEAKER) (test lnbx=967) 4.04 M/ L 4.63-6.08 HEMOGLOBIN (BEAKER) (test cpdx=958) 12.2 GM/DL 13.7-17.5 HEMATOCRIT (BEAKER) (test mzcb=508) 36.7 % 40.1-51.0 MEAN CORPUSCULAR VOLUME (BEAKER) (test vzuu=403) 90.8 fL 79.0-92.2 MEAN CORPUSCULAR HEMOGLOBIN (BEAKER) (test 30.2 pg 25.7-32.2 bici=450) MEAN CORPUSCULAR HEMOGLOBIN CONC (BEAKER) (test 33.2 GM/DL 32.3-36.5 aphm=603) RED CELL DISTRIBUTION WIDTH (BEAKER) (test 14.3 % 11.6-14.4 cqvb=607) PLATELET COUNT (BEAKER) (test ytxv=373) 561 K/CU MM 150-450 MEAN PLATELET VOLUME (BEAKER) (test vmqk=599) 9.2 fL 9.4-12.4 NUCLEATED RED BLOOD CELLS (BEAKER) (test 0 /100 WBC 0-0 dhxk=288) NEUTROPHILS RELATIVE PERCENT (BEAKER) (test 51 % qhfc=247) LYMPHOCYTES RELATIVE PERCENT (BEAKER) (test 32 % lhts=491) MONOCYTES RELATIVE PERCENT (BEAKER) (test 11 % yfsy=906) EOSINOPHILS RELATIVE PERCENT (BEAKER) (test 4 % bhcg=965) BASOPHILS RELATIVE PERCENT (BEAKER) (test 2 % ftiv=422) NEUTROPHILS ABSOLUTE COUNT (BEAKER) (test 3.66 K/ L 1.78-5.38 ftud=479) LYMPHOCYTES ABSOLUTE COUNT (BEAKER) (test 2.30 K/ L 1.32-3.57 ytdt=913) MONOCYTES ABSOLUTE COUNT (BEAKER) (test 0.77 K/ L 0.30-0.82 sesc=869) EOSINOPHILS ABSOLUTE COUNT (BEAKER) (test 0.30 K/ L 0.04-0.54 iqby=171) BASOPHILS ABSOLUTE COUNT (BEAKER) (test 0.11 K/ L 0.01-0.08 vjgw=780) IMMATURE GRANULOCYTES-RELATIVE PERCENT (BEAKER) 1 % 0-1 (test iilu=6734) RAD, CHEST, 1 VIEW, NON [id number] 19:53:00Reason for exam:->check picc placement Should this [...] MDReport Verified Date/Time: 09/15/2017 19:53:01 Reading Location: [address] Reading Room Electronically signed by: GEORGE KEYS M.D. on 07:53 PMCBC W/PLT COUNT & AUTO [id number] 10:27:00 Test Item Value Reference Range Comments WHITE BLOOD CELL COUNT (BEAKER) (test uuar=216) 7.8 K/ L 3.5-10.5 RED BLOOD CELL COUNT (BEAKER) (test fvzi=669) 3.95 M/ L 4.63-6.08 HEMOGLOBIN (BEAKER) (test lhtp=297) 12.0 GM/DL 13.7-17.5 HEMATOCRIT (BEAKER) (test adpj=151) 35.9 % 40.1-51.0 MEAN CORPUSCULAR VOLUME (BEAKER) (test rdix=095) 90.9 fL 79.0-92.2 MEAN CORPUSCULAR HEMOGLOBIN (BEAKER) (test 30.4 pg 25.7-32.2 zded=137) MEAN CORPUSCULAR HEMOGLOBIN CONC (BEAKER) (test 33.4 GM/DL 32.3-36.5 vpxt=359) RED CELL DISTRIBUTION WIDTH (BEAKER) (test 14.6 % 11.6-14.4 lurx=599) PLATELET COUNT (BEAKER) (test bhvj=904) 543 K/CU MM 150-450 MEAN PLATELET VOLUME (BEAKER) (test aqyz=894) 9.1 fL 9.4-12.4 NUCLEATED RED BLOOD CELLS (BEAKER) (test 0 /100 WBC 0-0 yuai=787) NEUTROPHILS RELATIVE PERCENT (BEAKER) (test 59 % qajw=354) LYMPHOCYTES RELATIVE PERCENT (BEAKER) (test 27 % fkgx=644) MONOCYTES RELATIVE PERCENT (BEAKER) (test 11 % tepd=822) EOSINOPHILS RELATIVE PERCENT (BEAKER) (test 1 % hcyp=576) BASOPHILS RELATIVE PERCENT (BEAKER) (test 1 % lmbk=097) NEUTROPHILS ABSOLUTE COUNT (BEAKER) (test 4.56 K/ L 1.78-5.38 ychs=717) LYMPHOCYTES ABSOLUTE COUNT (BEAKER) (test 2.11 K/ L 1.32-3.57 zvgq=437) MONOCYTES ABSOLUTE COUNT (BEAKER) (test 0.89 K/ L 0.30-0.82 uwur=551) EOSINOPHILS ABSOLUTE COUNT (BEAKER) (test 0.11 K/ L 0.04-0.54 knii=666) BASOPHILS ABSOLUTE COUNT (BEAKER) (test 0.08 K/ L 0.01-0.08 hfym=331) IMMATURE GRANULOCYTES-RELATIVE PERCENT (BEAKER) 0 % 0-1 (test hqrx=5764) PERIPHERAL BLOOD SMEAR - PATHOLOGIST [id number] 10:04:00 Test Item Value Reference Range Comments PERIPHERAL SMR REVIEW (BEAKER) Thrombocytosis. No circulating (test zxhq=0852) blasts or increased schistocytes. Clinical follow up recommended. [id number] (BEAKER) Enoch Saba (test sbyr=2742) Miladis(electronic signature) [id number] 06:02:00 Test Item Value Reference Range Comments PHOSPHORUS (BEAKER) (test ggfj=050) 3.3 mg/dL 2.3-4.7 [id number] 06:02:00 Test Item Value Reference Range Comments MAGNESIUM (BEAKER) (test lloh=131) 2.0 mg/dL 1.6-2.6 BASIC METABOLIC [id number] 06:02:00 Test Item Value Reference Range Comments SODIUM (BEAKER) (test 132 meq/L 136-145 uwjc=773) POTASSIUM (BEAKER) (test 3.7 meq/L 3.5-5.1 fbha=335) CHLORIDE (BEAKER) (test 102 meq/L 98-107 netl=080) CO2 (BEAKER) (test 22 meq/L 22-29 dlju=909) BLOOD UREA NITROGEN 11 mg/dL 7-21 (BEAKER) (test mmiv=391) CREATININE (BEAKER) (test 0.52 mg/dL 0.57-1.25 bynv=928) GLUCOSE RANDOM (BEAKER) 76 mg/dL 70-105 (test lgci=093) CALCIUM (BEAKER) (test 9.4 mg/dL 8.4-10.2 gbaw=477) EGFR (BEAKER) (test 178 mL/min/1.73 sq m ESTIMATED GFR IS NOT ydwo=3573) ACCURATE CREATININE CLEARANCE IN PREDICTING GLOMERULAR FILTRATION RATE. ESTIMATED GFR IS NOT APPLICABLE FOR DIALYSIS PATIENTS. VITAMIN B12 AND [id number] 12:22:00 Test Item Value Reference Range Comments VITAMIN B12 (BEAKER) (test bhcq=727) 527 pg/mL 213-816 FOLATE (BEAKER) (test ikoq=714) 12.3 ng/mL >=7.0 [id number] 07:34:00 Test Item Value Reference Range Comments LIPASE (BEAKER) (test lgqx=334) 1107 U/L 8-78 BASIC METABOLIC [id number] 07:32:00 Test Item Value Reference Range Comments SODIUM (BEAKER) (test 134 meq/L 136-145 ffdq=892) POTASSIUM (BEAKER) (test 3.7 meq/L 3.5-5.1 thpa=518) CHLORIDE (BEAKER) (test 103 meq/L 98-107 qbpf=410) CO2 (BEAKER) (test 20 meq/L 22-29 jxva=114) BLOOD UREA NITROGEN 10 mg/dL 7-21 (BEAKER) (test ojxr=431) CREATININE (BEAKER) (test 0.59 mg/dL 0.57-1.25 oaic=118) GLUCOSE RANDOM (BEAKER) 96 mg/dL 70-105 (test bhqr=350) CALCIUM (BEAKER) (test 9.7 mg/dL 8.4-10.2 muty=327) EGFR (BEAKER) (test 154 mL/min/1.73 sq m ESTIMATED GFR IS NOT bemg=9735) ACCURATE CREATININE CLEARANCE IN PREDICTING GLOMERULAR FILTRATION RATE. ESTIMATED GFR IS NOT APPLICABLE FOR DIALYSIS PATIENTS. [id number] 07:32:00 Test Item Value Reference Range Comments MAGNESIUM (BEAKER) (test nqtj=476) 1.9 mg/dL 1.6-2.6 [id number] 07:32:00 Test Item Value Reference Range Comments PHOSPHORUS (BEAKER) (test pddo=044) 3.4 mg/dL 2.3-4.7 CBC W/PLT COUNT & AUTO [id number] 06:44:00 Test Item Value Reference Range Comments WHITE BLOOD CELL COUNT (BEAKER) (test pvgr=380) 12.1 K/ L 3.5-10.5 RED BLOOD CELL COUNT (BEAKER) (test wfxl=171) 4.34 M/ L 4.63-6.08 HEMOGLOBIN (BEAKER) (test fklj=326) 13.1 GM/DL 13.7-17.5 HEMATOCRIT (BEAKER) (test zngf=425) 39.2 % 40.1-51.0 MEAN CORPUSCULAR VOLUME (BEAKER) (test jiny=573) 90.3 fL 79.0-92.2 MEAN CORPUSCULAR HEMOGLOBIN (BEAKER) (test 30.2 pg 25.7-32.2 wytj=404) MEAN CORPUSCULAR HEMOGLOBIN CONC (BEAKER) (test 33.4 GM/DL 32.3-36.5 zpqv=919) RED CELL DISTRIBUTION WIDTH (BEAKER) (test 14.9 % 11.6-14.4 pedh=344) PLATELET COUNT (BEAKER) (test wiqr=433) 636 K/CU MM 150-450 MEAN PLATELET VOLUME (BEAKER) (test xykd=512) 9.5 fL 9.4-12.4 NUCLEATED RED BLOOD CELLS (BEAKER) (test 0 /100 WBC 0-0 eoxl=764) NEUTROPHILS RELATIVE PERCENT (BEAKER) (test 72 % hlpm=098) LYMPHOCYTES RELATIVE PERCENT (BEAKER) (test 15 % cnuw=596) MONOCYTES RELATIVE PERCENT (BEAKER) (test 11 % bqqa=196) EOSINOPHILS RELATIVE PERCENT (BEAKER) (test 0 % tvmr=994) BASOPHILS RELATIVE PERCENT (BEAKER) (test 0 % kper=689) NEUTROPHILS ABSOLUTE COUNT (BEAKER) (test 8.72 K/ L 1.78-5.38 qfor=499) LYMPHOCYTES ABSOLUTE COUNT (BEAKER) (test 1.87 K/ L 1.32-3.57 gsjj=194) MONOCYTES ABSOLUTE COUNT (BEAKER) (test 1.38 K/ L 0.30-0.82 aavb=649) EOSINOPHILS ABSOLUTE COUNT (BEAKER) (test 0.02 K/ L 0.04-0.54 ugdt=266) BASOPHILS ABSOLUTE COUNT (BEAKER) (test 0.05 K/ L 0.01-0.08 zkft=355) IMMATURE GRANULOCYTES-RELATIVE PERCENT (BEAKER) 1 % 0-1 (test ackc=6613) FINE NEEDLE ASPIRATION BY [id number] 13:21:00Medical Cytology Report Case: [id number] Authorizing Provider: Bessy Hernandez MD Collected: 2017 [id number] Ordering Location: [address] Received : 09/08/2017 1814 Service Pathologist: Mir Anthony MD Specimen: Pancreas PANCREAS HEAD CYSTICLESION FNA BY CLINICIAN ( CYTOSPINS AND CELL BLOCK OF ASPIRATE): - NO MALIGNANT CELLS IDENTIFIED - The mucin stain shows focal weak staining Signing Pathologist Direct Phone Line : [phone] signed by Mir Anthony MD on 09/11/2017 at 1:21 PMThe cell block shows non-inflammed pancreatic acinar tissue.53474, 47369, 73204(4.9 X 4.8 cm) Cystic lesion in the pancreatic headPANCREAS HEAD CYSTIC LESION FNA25 mls in cytorich red; 4 cytospins, 1 mucin stain, cell blockCollected: [id number]: [id number], [address] [place] [id number], [facility], [facility] of [facility], [address] [place] [id number], [id number] 10:07:00 Test Item Value Reference Range Comments PARTIAL THROMBOPLASTIN TIME (BEAKER) (test 44.5 seconds 22.5-36.0 axtt=440) BASIC METABOLIC [id number] 05:56:00 Test Item Value Reference Range Comments SODIUM (BEAKER) (test 138 meq/L 136-145 ggur=025) POTASSIUM (BEAKER) (test 3.7 meq/L 3.5-5.1 bvah=137) CHLORIDE (BEAKER) (test 105 meq/L 98-107 zwel=317) CO2 (BEAKER) (test 25 meq/L 22-29 pfnc=015) BLOOD UREA NITROGEN 7 mg/dL 7-21 (BEAKER) (test yexn=173) CREATININE (BEAKER) (test 0.62 mg/dL 0.57-1.25 jemh=206) GLUCOSE RANDOM (BEAKER) 120 mg/dL 70-105 (test slmn=855) CALCIUM (BEAKER) (test 8.7 mg/dL 8.4-10.2 klpu=232) EGFR (BEAKER) (test 145 mL/min/1.73 sq m ESTIMATED GFR IS NOT wtbh=0022) ACCURATE CREATININE CLEARANCE IN PREDICTING GLOMERULAR FILTRATION RATE. ESTIMATED GFR IS NOT APPLICABLE FOR DIALYSIS PATIENTS. CBC W/PLT COUNT & AUTO [id number] 05:42:00 Test Item Value Reference Range Comments WHITE BLOOD CELL COUNT (BEAKER) (test fmuy=233) 4.6 K/ L 3.5-10.5 RED BLOOD CELL COUNT (BEAKER) (test geld=639) 3.83 M/ L 4.63-6.08 HEMOGLOBIN (BEAKER) (test rtlv=133) 11.7 GM/DL 13.7-17.5 HEMATOCRIT (BEAKER) (test gnfo=336) 34.7 % 40.1-51.0 MEAN CORPUSCULAR VOLUME (BEAKER) (test mugu=737) 90.6 fL 79.0-92.2 MEAN CORPUSCULAR HEMOGLOBIN (BEAKER) (test 30.5 pg 25.7-32.2 yskv=947) MEAN CORPUSCULAR HEMOGLOBIN CONC (BEAKER) (test 33.7 GM/DL 32.3-36.5 kuyp=102) RED CELL DISTRIBUTION WIDTH (BEAKER) (test 14.3 % 11.6-14.4 vrid=483) PLATELET COUNT (BEAKER) (test cobh=357) 378 K/CU MM 150-450 MEAN PLATELET VOLUME (BEAKER) (test ukbx=132) 9.0 fL 9.4-12.4 NUCLEATED RED BLOOD CELLS (BEAKER) (test 0 /100 WBC 0-0 qfmt=701) NEUTROPHILS RELATIVE PERCENT (BEAKER) (test 39 % uftr=867) LYMPHOCYTES RELATIVE PERCENT (BEAKER) (test 43 % ojqn=543) MONOCYTES RELATIVE PERCENT (BEAKER) (test 12 % opxd=365) EOSINOPHILS RELATIVE PERCENT (BEAKER) (test 5 % qeer=587) BASOPHILS RELATIVE PERCENT (BEAKER) (test 1 % fgeh=155) NEUTROPHILS ABSOLUTE COUNT (BEAKER) (test 1.81 K/ L 1.78-5.38 wkrk=551) LYMPHOCYTES ABSOLUTE COUNT (BEAKER) (test 2.01 K/ L 1.32-3.57 wqnd=013) MONOCYTES ABSOLUTE COUNT (BEAKER) (test 0.55 K/ L 0.30-0.82 cvgv=773) EOSINOPHILS ABSOLUTE COUNT (BEAKER) (test 0.21 K/ L 0.04-0.54 stfu=022) BASOPHILS ABSOLUTE COUNT (BEAKER) (test 0.05 K/ L 0.01-0.08 dkuo=808) IMMATURE GRANULOCYTES-RELATIVE PERCENT (BEAKER) 0 % 0-1 (test zumf=8663) FINE NEEDLE ASPIRATE (FNA) [id number] 20:00:00 Test Item Value Reference Range Comments CYTOLOGY RESULT POINTER (BEAKER) (test See Separate Report ojon=[id number]) [id number] 12:16:00 Test Item Value Reference Range Comments PARTIAL THROMBOPLASTIN TIME (BEAKER) (test 84.6 seconds 22.5-36.0 yvta=946) BASIC METABOLIC [id number] 05:21:00 Test Item Value Reference Range Comments SODIUM (BEAKER) (test 126 meq/L 136-145 yxxe=771) POTASSIUM (BEAKER) (test 2.8 meq/L 3.5-5.1 hohd=896) CHLORIDE (BEAKER) (test 99 meq/L 98-107 rbyp=969) CO2 (BEAKER) (test 20 meq/L 22-29 rbuh=530) BLOOD UREA NITROGEN 3 mg/dL 7-21 (BEAKER) (test yjqm=954) CREATININE (BEAKER) (test 0.44 mg/dL 0.57-1.25 zpeh=382) GLUCOSE RANDOM (BEAKER) 75 mg/dL 70-105 (test lxoj=539) CALCIUM (BEAKER) (test 6.8 mg/dL 8.4-10.2 cgzw=202) EGFR (BEAKER) (test 216 mL/min/1.73 sq m ESTIMATED GFR IS NOT injn=6599) ACCURATE CREATININE CLEARANCE IN PREDICTING GLOMERULAR FILTRATION RATE. ESTIMATED GFR IS NOT APPLICABLE FOR DIALYSIS PATIENTS. [id number] 05:13:00 Test Item Value Reference Range Comments PARTIAL THROMBOPLASTIN TIME (BEAKER) (test 110.2 seconds 22.5-36.0 tkic=673) CBC W/PLT COUNT & AUTO [id number] 04:45:00 Test Item Value Reference Range Comments WHITE BLOOD CELL COUNT (BEAKER) (test mpvl=718) 4.4 K/ L 3.5-10.5 RED BLOOD CELL COUNT (BEAKER) (test naqu=152) 3.25 M/ L 4.63-6.08 HEMOGLOBIN (BEAKER) (test kjra=696) 10.1 GM/DL 13.7-17.5 HEMATOCRIT (BEAKER) (test uhcy=274) 29.9 % 40.1-51.0 MEAN CORPUSCULAR VOLUME (BEAKER) (test zfda=233) 92.0 fL 79.0-92.2 MEAN CORPUSCULAR HEMOGLOBIN (BEAKER) (test 31.1 pg 25.7-32.2 namm=467) MEAN CORPUSCULAR HEMOGLOBIN CONC (BEAKER) (test 33.8 GM/DL 32.3-36.5 pheg=189) RED CELL DISTRIBUTION WIDTH (BEAKER) (test 14.5 % 11.6-14.4 ytjh=315) PLATELET COUNT (BEAKER) (test sxif=497) 297 K/CU MM 150-450 MEAN PLATELET VOLUME (BEAKER) (test jcba=752) 9.1 fL 9.4-12.4 NUCLEATED RED BLOOD CELLS (BEAKER) (test 0 /100 WBC 0-0 ghea=017) NEUTROPHILS RELATIVE PERCENT (BEAKER) (test 44 % hinx=309) LYMPHOCYTES RELATIVE PERCENT (BEAKER) (test 40 % bnwe=509) MONOCYTES RELATIVE PERCENT (BEAKER) (test 11 % ptrz=021) EOSINOPHILS RELATIVE PERCENT (BEAKER) (test 4 % jevy=987) BASOPHILS RELATIVE PERCENT (BEAKER) (test 1 % bsim=015) NEUTROPHILS ABSOLUTE COUNT (BEAKER) (test 1.96 K/ L 1.78-5.38 bnjr=797) LYMPHOCYTES ABSOLUTE COUNT (BEAKER) (test 1.77 K/ L 1.32-3.57 utdc=268) MONOCYTES ABSOLUTE COUNT (BEAKER) (test 0.49 K/ L 0.30-0.82 seis=788) EOSINOPHILS ABSOLUTE COUNT (BEAKER) (test 0.16 K/ L 0.04-0.54 khxo=143) BASOPHILS ABSOLUTE COUNT (BEAKER) (test 0.05 K/ L 0.01-0.08 etkk=038) IMMATURE GRANULOCYTES-RELATIVE PERCENT (BEAKER) 0 % 0-1 (test haae=4631) [id number] 21:32:00 Test Item Value Reference Range Comments PARTIAL THROMBOPLASTIN TIME (BEAKER) (test 118.1 seconds 22.5-36.0 vozi=181) BASIC METABOLIC [id number] 14:23:00 Test Item Value Reference Range Comments SODIUM (BEAKER) (test 139 meq/L 136-145 freg=539) POTASSIUM (BEAKER) (test 3.6 meq/L 3.5-5.1 jwwc=932) CHLORIDE (BEAKER) (test 103 meq/L 98-107 xrfu=810) CO2 (BEAKER) (test 29 meq/L 22-29 luat=445) BLOOD UREA NITROGEN 3 mg/dL 7-21 (BEAKER) (test twbf=571) CREATININE (BEAKER) (test 0.54 mg/dL 0.57-1.25 kzuh=501) GLUCOSE RANDOM (BEAKER) 108 mg/dL 70-105 (test vrmw=091) CALCIUM (BEAKER) (test 8.6 mg/dL 8.4-10.2 bunk=610) EGFR (BEAKER) (test 170 mL/min/1.73 sq m ESTIMATED GFR IS NOT ujfl=1680) ACCURATE CREATININE CLEARANCE IN PREDICTING GLOMERULAR FILTRATION RATE. ESTIMATED GFR IS NOT APPLICABLE FOR DIALYSIS PATIENTS. [id number] 14:06:00 Test Item Value Reference Range Comments PARTIAL THROMBOPLASTIN TIME (BEAKER) (test 66.8 seconds 22.5-36.0 dkoh=395) CBC W/PLT COUNT & AUTO [id number] 13:57:00 Test Item Value Reference Range Comments WHITE BLOOD CELL COUNT (BEAKER) (test pljc=958) 4.6 K/ L 3.5-10.5 RED BLOOD CELL COUNT (BEAKER) (test twge=954) 3.95 M/ L 4.63-6.08 HEMOGLOBIN (BEAKER) (test sxfa=849) 11.9 GM/DL 13.7-17.5 HEMATOCRIT (BEAKER) (test atnx=813) 36.5 % 40.1-51.0 MEAN CORPUSCULAR VOLUME (BEAKER) (test pdaq=351) 92.4 fL 79.0-92.2 MEAN CORPUSCULAR HEMOGLOBIN (BEAKER) (test 30.1 pg 25.7-32.2 tfqe=517) MEAN CORPUSCULAR HEMOGLOBIN CONC (BEAKER) (test 32.6 GM/DL 32.3-36.5 hata=357) RED CELL DISTRIBUTION WIDTH (BEAKER) (test 14.2 % 11.6-14.4 qwdj=000) PLATELET COUNT (BEAKER) (test hxhs=091) 347 K/CU MM 150-450 MEAN PLATELET VOLUME (BEAKER) (test ddxt=657) 9.2 fL 9.4-12.4 NUCLEATED RED BLOOD CELLS (BEAKER) (test 0 /100 WBC 0-0 aeko=855) NEUTROPHILS RELATIVE PERCENT (BEAKER) (test 44 % ktef=642) LYMPHOCYTES RELATIVE PERCENT (BEAKER) (test 37 % yghf=125) MONOCYTES RELATIVE PERCENT (BEAKER) (test 13 % zyfh=797) EOSINOPHILS RELATIVE PERCENT (BEAKER) (test 5 % zguj=427) BASOPHILS RELATIVE PERCENT (BEAKER) (test 1 % ozqf=378) NEUTROPHILS ABSOLUTE COUNT (BEAKER) (test 1.99 K/ L 1.78-5.38 oyis=368) LYMPHOCYTES ABSOLUTE COUNT (BEAKER) (test 1.69 K/ L 1.32-3.57 zjbv=223) MONOCYTES ABSOLUTE COUNT (BEAKER) (test 0.61 K/ L 0.30-0.82 oemc=804) EOSINOPHILS ABSOLUTE COUNT (BEAKER) (test 0.21 K/ L 0.04-0.54 hesz=748) BASOPHILS ABSOLUTE COUNT (BEAKER) (test 0.05 K/ L 0.01-0.08 dyrg=853) IMMATURE GRANULOCYTES-RELATIVE PERCENT (BEAKER) 0 % 0-1 (test saby=6995) BASIC METABOLIC [id number] 07:03:00 Test Item Value Reference Range Comments SODIUM (BEAKER) (test 140 meq/L 136-145 fetj=464) POTASSIUM (BEAKER) (test 3.4 meq/L 3.5-5.1 jjcc=656) CHLORIDE (BEAKER) (test 100 meq/L 98-107 tkuc=749) CO2 (BEAKER) (test 30 meq/L 22-29 mjwv=248) BLOOD UREA NITROGEN 3 mg/dL 7-21 (BEAKER) (test beir=904) CREATININE (BEAKER) (test 0.56 mg/dL 0.57-1.25 vbqq=677) GLUCOSE RANDOM (BEAKER) 102 mg/dL 70-105 (test vehv=409) CALCIUM (BEAKER) (test 9.2 mg/dL 8.4-10.2 yquc=134) EGFR (BEAKER) (test 163 mL/min/1.73 sq m ESTIMATED GFR IS NOT wfnl=4468) ACCURATE CREATININE CLEARANCE IN PREDICTING GLOMERULAR FILTRATION RATE. ESTIMATED GFR IS NOT APPLICABLE FOR DIALYSIS PATIENTS. [id number] 06:47:00 Test Item Value Reference Range Comments PARTIAL THROMBOPLASTIN TIME (BEAKER) (test 46.7 seconds 22.5-36.0 tvmy=332) [id number] 00:50:00 Test Item Value Reference Range Comments PARTIAL THROMBOPLASTIN TIME (BEAKER) (test 53.5 seconds 22.5-36.0 kxtj=659) [id number] 17:34:00 Test Item Value Reference Range Comments PARTIAL THROMBOPLASTIN TIME (BEAKER) (test 45.8 seconds 22.5-36.0 xmwk=525) [id number] 08:32:00 Test Item Value Reference Range Comments PARTIAL THROMBOPLASTIN TIME (BEAKER) (test 38.7 seconds 22.5-36.0 gagw=732) Prior to initiating heparinBASIC METABOLIC [id number] 06:05:00 Test Item Value Reference Range Comments SODIUM (BEAKER) (test 136 meq/L 136-145 xymq=717) POTASSIUM (BEAKER) (test 3.3 meq/L 3.5-5.1 vuna=883) CHLORIDE (BEAKER) (test 102 meq/L 98-107 davl=263) CO2 (BEAKER) (test 26 meq/L 22-29 mang=681) BLOOD UREA NITROGEN 2 mg/dL 7-21 (BEAKER) (test rook=856) CREATININE (BEAKER) (test 0.55 mg/dL 0.57-1.25 bcap=672) GLUCOSE RANDOM (BEAKER) 124 mg/dL 70-105 (test rmbm=052) CALCIUM (BEAKER) (test 8.0 mg/dL 8.4-10.2 gehv=406) EGFR (BEAKER) (test 167 mL/min/1.73 sq m ESTIMATED GFR IS NOT ksbv=9709) ACCURATE CREATININE CLEARANCE IN PREDICTING GLOMERULAR FILTRATION RATE. ESTIMATED GFR IS NOT APPLICABLE FOR DIALYSIS PATIENTS. BLOOD [id number] 06:00:00 Test Item Value Reference Range Comments CULTURE (BEAKER) (test byct=3255) No growth in 5 days BLOOD [id number] 06:00:00 Test Item Value Reference Range Comments CULTURE (BEAKER) (test ikvq=6434) No growth in 5 days [id number] 03:55:00 Test Item Value Reference Range Comments PHOSPHORUS (BEAKER) (test hdat=870) 2.8 mg/dL 2.3-4.7 [id number] 03:55:00 Test Item Value Reference Range Comments MAGNESIUM (BEAKER) (test pyfx=088) 1.3 mg/dL 1.6-2.6 BASIC METABOLIC [id number] 03:55:00 Test Item Value Reference Range Comments SODIUM (BEAKER) (test 137 meq/L 136-145 zxdk=387) POTASSIUM (BEAKER) (test 3.2 meq/L 3.5-5.1 kszi=737) CHLORIDE (BEAKER) (test 103 meq/L 98-107 tazl=016) CO2 (BEAKER) (test 22 meq/L 22-29 iofq=473) BLOOD UREA NITROGEN 3 mg/dL 7-21 (BEAKER) (test imgr=214) CREATININE (BEAKER) (test 0.51 mg/dL 0.57-1.25 xdtm=832) GLUCOSE RANDOM (BEAKER) 65 mg/dL 70-105 (test pbig=954) CALCIUM (BEAKER) (test 8.0 mg/dL 8.4-10.2 uqyt=280) EGFR (BEAKER) (test 182 mL/min/1.73 sq m ESTIMATED GFR IS NOT rboe=7055) ACCURATE CREATININE CLEARANCE IN PREDICTING GLOMERULAR FILTRATION RATE. ESTIMATED GFR IS NOT APPLICABLE FOR DIALYSIS PATIENTS. [id number] 03:55:00 Test Item Value Reference Range Comments LIPASE (BEAKER) (test nytg=950) 210 U/L 8-78 CBC W/PLT COUNT & AUTO [id number] 03:37:00 Test Item Value Reference Range Comments WHITE BLOOD CELL COUNT (BEAKER) (test tesc=673) 6.1 K/ L 3.5-10.5 RED BLOOD CELL COUNT (BEAKER) (test shse=147) 3.63 M/ L 4.63-6.08 HEMOGLOBIN (BEAKER) (test rqug=479) 11.1 GM/DL 13.7-17.5 HEMATOCRIT (BEAKER) (test fsiu=852) 33.0 % 40.1-51.0 MEAN CORPUSCULAR VOLUME (BEAKER) (test lsak=681) 90.9 fL 79.0-92.2 MEAN CORPUSCULAR HEMOGLOBIN (BEAKER) (test 30.6 pg 25.7-32.2 kqgj=093) MEAN CORPUSCULAR HEMOGLOBIN CONC (BEAKER) (test 33.6 GM/DL 32.3-36.5 oaqf=236) RED CELL DISTRIBUTION WIDTH (BEAKER) (test 14.3 % 11.6-14.4 rrfz=064) PLATELET COUNT (BEAKER) (test xrgq=755) 262 K/CU MM 150-450 MEAN PLATELET VOLUME (BEAKER) (test sczf=503) 9.1 fL 9.4-12.4 NUCLEATED RED BLOOD CELLS (BEAKER) (test 0 /100 WBC 0-0 gset=567) NEUTROPHILS RELATIVE PERCENT (BEAKER) (test 69 % ytpc=610) LYMPHOCYTES RELATIVE PERCENT (BEAKER) (test 17 % snzs=563) MONOCYTES RELATIVE PERCENT (BEAKER) (test 10 % yehd=350) EOSINOPHILS RELATIVE PERCENT (BEAKER) (test 3 % lmiz=039) BASOPHILS RELATIVE PERCENT (BEAKER) (test 0 % nxub=716) NEUTROPHILS ABSOLUTE COUNT (BEAKER) (test 4.21 K/ L 1.78-5.38 exiy=548) LYMPHOCYTES ABSOLUTE COUNT (BEAKER) (test 1.04 K/ L 1.32-3.57 jzsm=994) MONOCYTES ABSOLUTE COUNT (BEAKER) (test 0.60 K/ L 0.30-0.82 jfoy=375) EOSINOPHILS ABSOLUTE COUNT (BEAKER) (test 0.18 K/ L 0.04-0.54 dzzm=768) BASOPHILS ABSOLUTE COUNT (BEAKER) (test 0.02 K/ L 0.01-0.08 tzuk=751) IMMATURE GRANULOCYTES-RELATIVE PERCENT (BEAKER) 1 % 0-1 (test pfeb=2513) CT, ABDOMEN - PELVIS, PANCREAS [id number] 00:22:00Reason for exam:-&gt ;pancreatitisFINAL REPORT CT, ABDOMEN [...] Verified Date/ Time: 09/04/2017 00:22:52 Reading Location: [address] Reading Room [id number] 06:00:00 Test Item Value Reference Range Comments MAGNESIUM (BEAKER) (test 1.6 mg/dL 1.6-2.6 Specimen slightly hemolyzed mrlm=975) [id number] 06:00:00 Test Item Value Reference Range Comments PHOSPHORUS (BEAKER) (test 3.4 mg/dL 2.3-4.7 Specimen slightly hemolyzed xomy=556) BASIC METABOLIC [id number] 06:00:00 Test Item Value Reference Range Comments SODIUM (BEAKER) (test 132 meq/L 136-145 hqqh=994) POTASSIUM (BEAKER) (test 3.9 meq/L 3.5-5.1 Specimen slightly zswa=992) hemolyzed CHLORIDE (BEAKER) (test 101 meq/L 98-107 mskd=301) CO2 (BEAKER) (test 22 meq/L 22-29 pqcg=961) BLOOD UREA NITROGEN 7 mg/dL 7-21 (BEAKER) (test wxur=151) CREATININE (BEAKER) (test 0.49 mg/dL 0.57-1.25 Specimen slightly unjk=004) hemolyzed GLUCOSE RANDOM (BEAKER) 59 mg/dL 70-105 (test kxib=868) CALCIUM (BEAKER) (test 8.1 mg/dL 8.4-10.2 cknk=652) EGFR (BEAKER) (test 190 mL/min/1.73 sq m ESTIMATED GFR IS NOT prol=6484) ACCURATE CREATININE CLEARANCE IN PREDICTING GLOMERULAR FILTRATION RATE. ESTIMATED GFR IS NOT APPLICABLE FOR DIALYSIS PATIENTS. HEPATIC FUNCTION [id number] 06:00:00 Test Item Value Reference Range Comments TOTAL PROTEIN (BEAKER) (test 5.7 gm/dL 6.0-8.3 Specimen slightly hemolyzed bbnr=751) ALBUMIN (BEAKER) (test 3.0 g/dL 3.5-5.0 Specimen slightly hemolyzed fuxe=1677) BILIRUBIN TOTAL (BEAKER) (test 1.2 mg/dL 0.2-1.2 Specimen slightly hemolyzed pvft=901) BILIRUBIN DIRECT (BEAKER) (test 0.4 mg/dL 0.1-0.5 Specimen slightly hemolyzed akpk=485) ALKALINE PHOSPHATASE (BEAKER) 62 U/L 40-150 (test biej=978) AST (SGOT) (BEAKER) (test 18 U/L 5-34 Specimen slightly hemolyzed sgab=411) ALT (SGPT) (BEAKER) (test < U/L 6-55 Specimen slightly hemolyzed lswn=625) CBC W/PLT COUNT & AUTO [id number] 05:43:00 Test Item Value Reference Range Comments WHITE BLOOD CELL COUNT (BEAKER) (test dakd=433) 8.4 K/ L 3.5-10.5 RED BLOOD CELL COUNT (BEAKER) (test bcut=503) 3.68 M/ L 4.63-6.08 HEMOGLOBIN (BEAKER) (test hejz=235) 11.6 GM/DL 13.7-17.5 HEMATOCRIT (BEAKER) (test abvs=797) 34.4 % 40.1-51.0 MEAN CORPUSCULAR VOLUME (BEAKER) (test thts=758) 93.5 fL 79.0-92.2 MEAN CORPUSCULAR HEMOGLOBIN (BEAKER) (test 31.5 pg 25.7-32.2 xlwo=882) MEAN CORPUSCULAR HEMOGLOBIN CONC (BEAKER) (test 33.7 GM/DL 32.3-36.5 dacn=243) RED CELL DISTRIBUTION WIDTH (BEAKER) (test 14.6 % 11.6-14.4 wtnx=127) PLATELET COUNT (BEAKER) (test hwsy=836) 221 K/CU MM 150-450 MEAN PLATELET VOLUME (BEAKER) (test vbrn=118) 9.5 fL 9.4-12.4 NUCLEATED RED BLOOD CELLS (BEAKER) (test 0 /100 WBC 0-0 ceaa=193) NEUTROPHILS RELATIVE PERCENT (BEAKER) (test 75 % lyav=131) LYMPHOCYTES RELATIVE PERCENT (BEAKER) (test 14 % cxnf=689) MONOCYTES RELATIVE PERCENT (BEAKER) (test 10 % buiw=118) EOSINOPHILS RELATIVE PERCENT (BEAKER) (test 1 % bqsn=621) BASOPHILS RELATIVE PERCENT (BEAKER) (test 0 % kleh=913) NEUTROPHILS ABSOLUTE COUNT (BEAKER) (test 6.27 K/ L 1.78-5.38 rvnf=938) LYMPHOCYTES ABSOLUTE COUNT (BEAKER) (test 1.16 K/ L 1.32-3.57 gwpk=043) MONOCYTES ABSOLUTE COUNT (BEAKER) (test 0.87 K/ L 0.30-0.82 fdtw=725) EOSINOPHILS ABSOLUTE COUNT (BEAKER) (test 0.07 K/ L 0.04-0.54 zngz=043) BASOPHILS ABSOLUTE COUNT (BEAKER) (test 0.03 K/ L 0.01-0.08 tseh=030) IMMATURE GRANULOCYTES-RELATIVE PERCENT (BEAKER) 0 % 0-1 (test wngf=5284) POCT-GLUCOSE [id number] 07:30:00 Test Item Value Reference Range Comments POC-GLUCOSE METER (BEAKER) 140 mg/dL 70-110 TESTED AT [address] (test nqul=5069) [place] [id number] POCT-GLUCOSE [id number] 07:30:00 Test Item Value Reference Range Comments POC-GLUCOSE METER (BEAKER) 59 mg/dL 70-110 TESTED AT [address] (test uoce=0694) [place] [id number] 05:16:00 Test Item Value Reference Range Comments MAGNESIUM (BEAKER) (test 1.7 mg/dL 1.6-2.6 Specimen slightly hemolyzed xqeb=452) [id number] 05:16:00 Test Item Value Reference Range Comments PHOSPHORUS (BEAKER) (test 3.7 mg/dL 2.3-4.7 Specimen slightly hemolyzed vfpf=931) BASIC METABOLIC [id number] 05:16:00 Test Item Value Reference Range Comments SODIUM (BEAKER) (test 136 meq/L 136-145 uqap=180) POTASSIUM (BEAKER) (test 4.1 meq/L 3.5-5.1 Specimen slightly ywbx=475) hemolyzed CHLORIDE (BEAKER) (test 105 meq/L 98-107 bjlv=565) CO2 (BEAKER) (test 21 meq/L 22-29 iqpr=288) BLOOD UREA NITROGEN 12 mg/dL 7-21 (BEAKER) (test fkcc=330) CREATININE (BEAKER) (test 0.62 mg/dL 0.57-1.25 Specimen slightly tgnp=740) hemolyzed GLUCOSE RANDOM (BEAKER) 65 mg/dL 70-105 (test tjzg=527) CALCIUM (BEAKER) (test 8.4 mg/dL 8.4-10.2 lofy=182) EGFR (BEAKER) (test 145 mL/min/1.73 sq m ESTIMATED GFR IS NOT hftk=0937) ACCURATE CREATININE CLEARANCE IN PREDICTING GLOMERULAR FILTRATION RATE. ESTIMATED GFR IS NOT APPLICABLE FOR DIALYSIS PATIENTS. HEPATIC FUNCTION [id number] 05:16:00 Test Item Value Reference Range Comments TOTAL PROTEIN (BEAKER) (test 5.9 gm/dL 6.0-8.3 Specimen slightly hemolyzed zrxq=103) ALBUMIN (BEAKER) (test 3.3 g/dL 3.5-5.0 Specimen slightly hemolyzed qnqd=1388) BILIRUBIN TOTAL (BEAKER) (test 1.4 mg/dL 0.2-1.2 Specimen slightly hemolyzed orxt=955) BILIRUBIN DIRECT (BEAKER) (test 0.5 mg/dL 0.1-0.5 Specimen slightly hemolyzed lyvw=122) ALKALINE PHOSPHATASE (BEAKER) 66 U/L 40-150 (test joxk=453) AST (SGOT) (BEAKER) (test 16 U/L 5-34 Specimen slightly hemolyzed gkws=344) ALT (SGPT) (BEAKER) (test 6 U/L 6-55 Specimen slightly hemolyzed bait=279) CBC W/PLT COUNT & AUTO [id number] 04:45:00 Test Item Value Reference Range Comments WHITE BLOOD CELL COUNT (BEAKER) (test zzjv=609) 9.1 K/ L 3.5-10.5 RED BLOOD CELL COUNT (BEAKER) (test mbmb=669) 4.04 M/ L 4.63-6.08 HEMOGLOBIN (BEAKER) (test qjyi=373) 12.3 GM/DL 13.7-17.5 HEMATOCRIT (BEAKER) (test dwrb=449) 38.1 % 40.1-51.0 MEAN CORPUSCULAR VOLUME (BEAKER) (test brzt=122) 94.3 fL 79.0-92.2 MEAN CORPUSCULAR HEMOGLOBIN (BEAKER) (test 30.4 pg 25.7-32.2 mmpv=421) MEAN CORPUSCULAR HEMOGLOBIN CONC (BEAKER) (test 32.3 GM/DL 32.3-36.5 zbmt=510) RED CELL DISTRIBUTION WIDTH (BEAKER) (test 15.7 % 11.6-14.4 qzwd=402) PLATELET COUNT (BEAKER) (test ccpv=848) 243 K/CU MM 150-450 MEAN PLATELET VOLUME (BEAKER) (test nmxb=708) 9.5 fL 9.4-12.4 NUCLEATED RED BLOOD CELLS (BEAKER) (test 0 /100 WBC 0-0 mztc=603) NEUTROPHILS RELATIVE PERCENT (BEAKER) (test 72 % vemq=298) LYMPHOCYTES RELATIVE PERCENT (BEAKER) (test 16 % qsfj=141) MONOCYTES RELATIVE PERCENT (BEAKER) (test 10 % afif=920) EOSINOPHILS RELATIVE PERCENT (BEAKER) (test 1 % tuhl=976) BASOPHILS RELATIVE PERCENT (BEAKER) (test 0 % llzh=553) NEUTROPHILS ABSOLUTE COUNT (BEAKER) (test 6.58 K/ L 1.78-5.38 uzne=139) LYMPHOCYTES ABSOLUTE COUNT (BEAKER) (test 1.48 K/ L 1.32-3.57 tfnn=426) MONOCYTES ABSOLUTE COUNT (BEAKER) (test 0.95 K/ L 0.30-0.82 gufb=422) EOSINOPHILS ABSOLUTE COUNT (BEAKER) (test 0.05 K/ L 0.04-0.54 ixlc=964) BASOPHILS ABSOLUTE COUNT (BEAKER) (test 0.04 K/ L 0.01-0.08 zjio=680) IMMATURE GRANULOCYTES-RELATIVE PERCENT (BEAKER) 0 % 0-1 (test ijuy=7169) HEMOGLOBIN [id number] 10:23:00 Test Item Value Reference Range Comments HEMOGLOBIN A1C (BEAKER) (test rleb=418) 4.7 % 4.3-6.1 U/S, ABDOMINAL, [id number] 09:53:00Abdomen limited area? Add comment if clarification [...] abdominal ultrasound limited exam (no cholelithiasis). Signed: Himnashu Nelson MDReport Verified Date/Time:09/01/2017 09:53:12 Reading Location: [address] Ultrasound Reading Room SEDIMENTATION [id number] 08:01:00 Test Item Value Reference Range Comments SEDIMENTATION RATE, ERYTHROCYTE (BEAKER) (test 3 mm/HR 0-15 ivwy=832) TSH/FREE T4 IF [id number] 04:12:00 Test Item Value Reference Range Comments THYROID STIMULATING HORMONE (BEAKER) (test 0.36 uIU/mL 0.35-4.94 qdew=115) CREATINE KINASE (CK), TOTAL AND [id number] 04:03:00 Test Item Value Reference Range Comments CREATINE KINASE TOTAL (BEAKER) (test nhxy=800) 29 U/L 29-200 CREATINE KINASE-MB (BEAKER) (test rwvg=067) 0.4 ng/mL 0.0-6.6 CREATINE KINASE-MB INDEX (BEAKER) (test tshp=192) 1.4 % CK-MB Reference Range:<6.7 Normal6.7-10.0 Borderline>10.0 AbnormalTROPONIN [id number] 04:03:00 Test Item Value Reference Range Comments TROPONIN I (BEAKER) (test tdqr=702) < ng/mL 0.00-0.03 Troponin I (TnI) levels [...] failure, acidosis, acute neurological disease, and persistent tachyarrhythmia.[id number] 03:53:00 Test Item Value Reference Range Comments PHOSPHORUS (BEAKER) (test mnox=102) 3.5 mg/dL 2.3-4.7 [id number] 03:53:00 Test Item Value Reference Range Comments MAGNESIUM (BEAKER) (test xhwl=609) 1.7 mg/dL 1.6-2.6 BASIC METABOLIC [id number] 03:53:00 Test Item Value Reference Range Comments SODIUM (BEAKER) (test 137 meq/L 136-145 qqxb=348) POTASSIUM (BEAKER) (test 3.8 meq/L 3.5-5.1 ewlg=106) CHLORIDE (BEAKER) (test 105 meq/L 98-107 xlza=777) CO2 (BEAKER) (test 23 meq/L 22-29 rpyu=948) BLOOD UREA NITROGEN 7 mg/dL 7-21 (BEAKER) (test lchv=282) CREATININE (BEAKER) (test 0.62 mg/dL 0.57-1.25 zswq=320) GLUCOSE RANDOM (BEAKER) 102 mg/dL 70-105 (test kodm=140) CALCIUM (BEAKER) (test 9.0 mg/dL 8.4-10.2 urle=304) EGFR (BEAKER) (test 145 mL/min/1.73 sq m ESTIMATED GFR IS NOT bufe=4178) ACCURATE CREATININE CLEARANCE IN PREDICTING GLOMERULAR FILTRATION RATE. ESTIMATED GFR IS NOT APPLICABLE FOR DIALYSIS PATIENTS. LIPID [id number] 03:53:00 Test Item Value Reference Range Comments TRIGLYCERIDES (BEAKER) (test wtib=493) 76 mg/dL CHOLESTEROL (BEAKER) (test gooy=581) 118 mg/dL HDL CHOLESTEROL (BEAKER) (test qbfh=998) 37 mg/dL LDL CHOLESTEROL CALCULATED (BEAKER) (test 66 mg/dL piyu=701) Triglyceride Reference Range: Low Risk <150 Borderline 150- 199 High Risk 200-499 Very High Risk >=500Cholesterol Reference Range: Low Risk <200 Borderline 200-239 High Risk > 240HDL Cholesterol Reference Range: Low Risk >=60 High Risk <40LDL Cholesterol Reference Range: Optimal <100 Near Optimal 100-129 Borderline 130-159 High 160-189 Very High >=190HEPATIC FUNCTION [id number] 03:53:00 Test Item Value Reference Range Comments TOTAL PROTEIN (BEAKER) (test zdko=525) 6.8 gm/dL 6.0-8.3 ALBUMIN (BEAKER) (test vjbm=8873) 3.9 g/dL 3.5-5.0 BILIRUBIN TOTAL (BEAKER) (test bytq=540) 1.2 mg/dL 0.2-1.2 BILIRUBIN DIRECT (BEAKER) (test bddk=269) 0.5 mg/dL 0.1-0.5 ALKALINE PHOSPHATASE (BEAKER) (test blon=141) 81 U/L 40-150 AST (SGOT) (BEAKER) (test glaq=322) 13 U/L 5-34 ALT (SGPT) (BEAKER) (test gfhp=820) 6 U/L 6-55 [id number] 03:53:00 Test Item Value Reference Range Comments AMYLASE (BEAKER) (test niki=153) 383 U/L 25-125 [id number] 03:53:00 Test Item Value Reference Range Comments LIPASE (BEAKER) (test vwqm=844) 266 U/L 8-78 C-REACTIVE [id number] 03:53:00 Test Item Value Reference Range Comments C-REACTIVE PROTEIN (BEAKER) (test fohb=947) 0.23 mg/dL 0.00-0.50 CBC W/PLT COUNT & AUTO [id number] 03:38:00 Test Item Value Reference Range Comments WHITE BLOOD CELL COUNT (BEAKER) (test zwcu=049) 10.7 K/ L 3.5-10.5 RED BLOOD CELL COUNT (BEAKER) (test qkvx=124) 4.45 M/ L 4.63-6.08 HEMOGLOBIN (BEAKER) (test hdya=257) 13.6 GM/DL 13.7-17.5 HEMATOCRIT (BEAKER) (test qorr=381) 40.4 % 40.1-51.0 MEAN CORPUSCULAR VOLUME (BEAKER) (test gbse=112) 90.8 fL 79.0-92.2 MEAN CORPUSCULAR HEMOGLOBIN (BEAKER) (test 30.6 pg 25.7-32.2 dbqr=638) MEAN CORPUSCULAR HEMOGLOBIN CONC (BEAKER) (test 33.7 GM/DL 32.3-36.5 walg=010) RED CELL DISTRIBUTION WIDTH (BEAKER) (test 15.5 % 11.6-14.4 yzaw=403) PLATELET COUNT (BEAKER) (test bowb=522) 277 K/CU MM 150-450 MEAN PLATELET VOLUME (BEAKER) (test dgrq=751) 9.7 fL 9.4-12.4 NUCLEATED RED BLOOD CELLS (BEAKER) (test 0 /100 WBC 0-0 mbcd=856) NEUTROPHILS RELATIVE PERCENT (BEAKER) (test 70 % yfvo=487) LYMPHOCYTES RELATIVE PERCENT (BEAKER) (test 18 % ungy=302) MONOCYTES RELATIVE PERCENT (BEAKER) (test 11 % xtuy=665) EOSINOPHILS RELATIVE PERCENT (BEAKER) (test 0 % eyyr=969) BASOPHILS RELATIVE PERCENT (BEAKER) (test 0 % eltl=710) NEUTROPHILS ABSOLUTE COUNT (BEAKER) (test 7.46 K/ L 1.78-5.38 dysi=279) LYMPHOCYTES ABSOLUTE COUNT (BEAKER) (test 1.93 K/ L 1.32-3.57 kpur=145) MONOCYTES ABSOLUTE COUNT (BEAKER) (test 1.17 K/ L 0.30-0.82 yebd=651) EOSINOPHILS ABSOLUTE COUNT (BEAKER) (test 0.02 K/ L 0.04-0.54 muok=352) BASOPHILS ABSOLUTE COUNT (BEAKER) (test 0.03 K/ L 0.01-0.08 rkbb=851) IMMATURE GRANULOCYTES-RELATIVE PERCENT (BEAKER) 0 % 0-1 (test pczm=3539) COMPREHENSIVE METABOLIC [id number] 14:02:00 Test Item Value Reference Range Comments TOTAL PROTEIN (BEAKER) 7.8 gm/dL 6.0-8.3 (test inzu=855) ALBUMIN (BEAKER) (test 3.9 g/dL 3.5-5.0 lccu=6165) ALKALINE PHOSPHATASE 62 U/L 40-150 (BEAKER) (test woco=754) BILIRUBIN TOTAL (BEAKER) 0.3 mg/dL 0.2-1.2 (test acwi=945) SODIUM (BEAKER) (test 139 meq/L 136-145 onwg=978) POTASSIUM (BEAKER) (test 4.2 meq/L 3.5-5.1 kvof=157) CHLORIDE (BEAKER) (test 104 meq/L 98-107 axqt=713) CO2 (BEAKER) (test 26 meq/L 22-29 offc=317) BLOOD UREA NITROGEN 9 mg/dL 7-21 (BEAKER) (test nlsx=543) CREATININE (BEAKER) (test 0.64 mg/dL 0.57-1.25 zdwv=185) GLUCOSE RANDOM (BEAKER) 78 mg/dL 70-105 (test bdiu=284) CALCIUM (BEAKER) (test 9.5 mg/dL 8.4-10.2 zdvu=048) AST (SGOT) (BEAKER) (test 18 U/L 5-34 jeos=747) ALT (SGPT) (BEAKER) (test 8 U/L 6-55 stdx=337) EGFR (BEAKER) (test 141 mL/min/1.73 sq ESTIMATED GFR IS NOT oqui=5352) m ACCURATE CREATININE CLEARANCE IN PREDICTING GLOMERULAR FILTRATION RATE. ESTIMATED GFR IS NOT APPLICABLE FOR DIALYSIS PATIENTS. COMPREHENSIVE METABOLIC [id number] 06:08:00 Test Item Value Reference Range Comments TOTAL PROTEIN (BEAKER) 7.0 gm/dL 6.0-8.3 Specimen slightly (test ikcx=475) hemolyzed ALBUMIN (BEAKER) (test 3.4 g/dL 3.5-5.0 Specimen slightly fall=4610) hemolyzed ALKALINE PHOSPHATASE 58 U/L 40-150 (BEAKER) (test qeon=700) BILIRUBIN TOTAL (BEAKER) 0.4 mg/dL 0.2-1.2 Specimen slightly (test vlaz=848) hemolyzed SODIUM (BEAKER) (test 139 meq/L 136-145 wnag=737) POTASSIUM (BEAKER) (test 4.5 meq/L 3.5-5.1 Specimen slightly pffq=315) hemolyzed CHLORIDE (BEAKER) (test 103 meq/L 98-107 oiqz=146) CO2 (BEAKER) (test 27 meq/L 22-29 wqag=179) BLOOD UREA NITROGEN 2 mg/dL 7-21 (BEAKER) (test duqc=166) CREATININE (BEAKER) (test 0.55 mg/dL 0.57-1.25 Specimen slightly xyvp=248) hemolyzed GLUCOSE RANDOM (BEAKER) 85 mg/dL 70-105 (test tuso=584) CALCIUM (BEAKER) (test 9.3 mg/dL 8.4-10.2 gvfs=502) AST (SGOT) (BEAKER) (test 18 U/L 5-34 Specimen slightly cdrg=465) hemolyzed ALT (SGPT) (BEAKER) (test 8 U/L 6-55 Specimen slightly ekjc=427) hemolyzed EGFR (BEAKER) (test 168 mL/min/1.73 sq ESTIMATED GFR IS NOT mogr=5293) m ACCURATE CREATININE CLEARANCE IN PREDICTING GLOMERULAR FILTRATION RATE. ESTIMATED GFR IS NOT APPLICABLE FOR DIALYSIS PATIENTS. CBC (HEMOGRAM ONLY)2017-05-17 05:20:00 Test Item Value Reference Range Comments WHITE BLOOD CELL COUNT (BEAKER) (test jcet=337) 6.4 K/ L 3.5-10.5 RED BLOOD CELL COUNT (BEAKER) (test dpdx=917) 3.84 M/ L 4.63-6.08 HEMOGLOBIN (BEAKER) (test kbge=610) 11.5 GM/DL 13.7-17.5 HEMATOCRIT (BEAKER) (test fhaw=125) 35.2 % 40.1-51.0 MEAN CORPUSCULAR VOLUME (BEAKER) (test ewlt=008) 91.7 fL 79.0-92.2 MEAN CORPUSCULAR HEMOGLOBIN (BEAKER) (test 29.9 pg 25.7-32.2 nkqk=632) MEAN CORPUSCULAR HEMOGLOBIN CONC (BEAKER) (test 32.7 GM/DL 32.3-36.5 hnwn=150) RED CELL DISTRIBUTION WIDTH (BEAKER) (test 14.1 % 11.6-14.4 zxgi=201) PLATELET COUNT (BEAKER) (test bxtq=142) 434 K/CU MM 150-450 MEAN PLATELET VOLUME (BEAKER) (test jhxg=409) 9.4 fL 9.4-12.4 NUCLEATED RED BLOOD CELLS (BEAKER) (test 0 /100 WBC 0-0 vowq=589) HEPATIC FUNCTION [id number] 11:22:00 Test Item Value Reference Range Comments TOTAL PROTEIN (BEAKER) (test wjmx=122) 6.9 gm/dL 6.0-8.3 ALBUMIN (BEAKER) (test qzys=4078) 3.4 g/dL 3.5-5.0 BILIRUBIN TOTAL (BEAKER) (test bpzr=329) 0.4 mg/dL 0.2-1.2 BILIRUBIN DIRECT (BEAKER) (test ptgt=322) 0.2 mg/dL 0.1-0.5 ALKALINE PHOSPHATASE (BEAKER) (test vxss=055) 65 U/L 40-150 AST (SGOT) (BEAKER) (test bjei=064) 14 U/L 5-34 ALT (SGPT) (BEAKER) (test pvlw=155) 8 U/L 6-55 CBC W/PLT COUNT & AUTO [id number] 11:16:00 Test Item Value Reference Range Comments WHITE BLOOD CELL COUNT (BEAKER) (test fika=528) 7.0 K/ L 3.5-10.5 RED BLOOD CELL COUNT (BEAKER) (test yipp=977) 3.90 M/ L 4.63-6.08 HEMOGLOBIN (BEAKER) (test qfoc=850) 11.9 GM/DL 13.7-17.5 HEMATOCRIT (BEAKER) (test sqgz=811) 35.7 % 40.1-51.0 MEAN CORPUSCULAR VOLUME (BEAKER) (test orsz=514) 91.5 fL 79.0-92.2 MEAN CORPUSCULAR HEMOGLOBIN (BEAKER) (test 30.5 pg 25.7-32.2 ucwb=399) MEAN CORPUSCULAR HEMOGLOBIN CONC (BEAKER) (test 33.3 GM/DL 32.3-36.5 aijp=290) RED CELL DISTRIBUTION WIDTH (BEAKER) (test 14.0 % 11.6-14.4 cntj=166) PLATELET COUNT (BEAKER) (test ncsb=764) 452 K/CU MM 150-450 MEAN PLATELET VOLUME (BEAKER) (test kcye=661) 9.0 fL 9.4-12.4 NUCLEATED RED BLOOD CELLS (BEAKER) (test 0 /100 WBC 0-0 uoul=459) NEUTROPHILS RELATIVE PERCENT (BEAKER) (test 59 % kqfr=611) LYMPHOCYTES RELATIVE PERCENT (BEAKER) (test 21 % zvnh=894) MONOCYTES RELATIVE PERCENT (BEAKER) (test 8 % huji=630) EOSINOPHILS RELATIVE PERCENT (BEAKER) (test 10 % wwnf=987) BASOPHILS RELATIVE PERCENT (BEAKER) (test 1 % scal=806) NEUTROPHILS ABSOLUTE COUNT (BEAKER) (test 4.12 K/ L 1.78-5.38 lbpm=417) LYMPHOCYTES ABSOLUTE COUNT (BEAKER) (test 1.45 K/ L 1.32-3.57 jnqz=941) MONOCYTES ABSOLUTE COUNT (BEAKER) (test 0.58 K/ L 0.30-0.82 zfww=841) EOSINOPHILS ABSOLUTE COUNT (BEAKER) (test 0.70 K/ L 0.04-0.54 fktb=534) BASOPHILS ABSOLUTE COUNT (BEAKER) (test 0.10 K/ L 0.01-0.08 cfke=319) IMMATURE GRANULOCYTES-RELATIVE PERCENT (BEAKER) 0 % 0-1 (test spqi=7716) BASIC METABOLIC [id number] 06:43:00 Test Item Value Reference Range Comments SODIUM (BEAKER) (test 138 meq/L 136-145 vnpo=960) POTASSIUM (BEAKER) (test 3.5 meq/L 3.5-5.1 rtek=495) CHLORIDE (BEAKER) (test 100 meq/L 98-107 sawg=851) CO2 (BEAKER) (test 27 meq/L 22-29 jlfb=616) BLOOD UREA NITROGEN 2 mg/dL 7-21 (BEAKER) (test jbss=642) CREATININE (BEAKER) (test 0.53 mg/dL 0.57-1.25 optu=851) GLUCOSE RANDOM (BEAKER) 82 mg/dL 70-105 (test lkml=434) CALCIUM (BEAKER) (test 9.0 mg/dL 8.4-10.2 ijuh=325) EGFR (BEAKER) (test 175 mL/min/1.73 sq m ESTIMATED GFR IS NOT yrrw=9532) ACCURATE CREATININE CLEARANCE IN PREDICTING GLOMERULAR FILTRATION RATE. ESTIMATED GFR IS NOT APPLICABLE FOR DIALYSIS PATIENTS. BASIC METABOLIC [id number] 05:14:00 Test Item Value Reference Range Comments SODIUM (BEAKER) (test 132 meq/L 136-145 fzvc=532) POTASSIUM (BEAKER) (test 3.8 meq/L 3.5-5.1 gonr=222) CHLORIDE (BEAKER) (test 101 meq/L 98-107 vqca=314) CO2 (BEAKER) (test 18 meq/L 22-29 laee=270) BLOOD UREA NITROGEN 4 mg/dL 7-21 (BEAKER) (test dfsu=582) CREATININE (BEAKER) (test 0.52 mg/dL 0.57-1.25 wppv=224) GLUCOSE RANDOM (BEAKER) 58 mg/dL 70-105 (test pqar=922) CALCIUM (BEAKER) (test 8.7 mg/dL 8.4-10.2 ofgs=612) EGFR (BEAKER) (test 179 mL/min/1.73 sq m ESTIMATED GFR IS NOT yhjd=8528) ACCURATE CREATININE CLEARANCE IN PREDICTING GLOMERULAR FILTRATION RATE. ESTIMATED GFR IS NOT APPLICABLE FOR DIALYSIS PATIENTS. CBC (HEMOGRAM ONLY)2017-05-15 04:57:00 Test Item Value Reference Range Comments WHITE BLOOD CELL COUNT (BEAKER) (test llvw=304) 13.4 K/ L 3.5-10.5 RED BLOOD CELL COUNT (BEAKER) (test ldja=093) 3.81 M/ L 4.63-6.08 HEMOGLOBIN (BEAKER) (test qrbs=440) 11.4 GM/DL 13.7-17.5 HEMATOCRIT (BEAKER) (test kxxl=137) 35.1 % 40.1-51.0 MEAN CORPUSCULAR VOLUME (BEAKER) (test bnsv=091) 92.1 fL 79.0-92.2 MEAN CORPUSCULAR HEMOGLOBIN (BEAKER) (test 29.9 pg 25.7-32.2 nvzi=018) MEAN CORPUSCULAR HEMOGLOBIN CONC (BEAKER) (test 32.5 GM/DL 32.3-36.5 jhku=323) RED CELL DISTRIBUTION WIDTH (BEAKER) (test 14.3 % 11.6-14.4 vvjf=431) PLATELET COUNT (BEAKER) (test slmj=740) 502 K/CU MM 150-450 MEAN PLATELET VOLUME (BEAKER) (test ybjg=218) 9.6 fL 9.4-12.4 NUCLEATED RED BLOOD CELLS (BEAKER) (test 0 /100 WBC 0-0 wmvg=425) LIPID [id number] 05:00:00 Test Item Value Reference Range Comments TRIGLYCERIDES (BEAKER) (test yfzp=997) 71 mg/dL CHOLESTEROL (BEAKER) (test ykor=800) 108 mg/dL HDL CHOLESTEROL (BEAKER) (test sdal=922) 22 mg/dL LDL CHOLESTEROL CALCULATED (BEAKER) (test 72 mg/dL hpqe=487) Triglyceride Reference Range: Low Risk <150 Borderline 150- 199 High Risk 200-499 Very High Risk >=500Cholesterol Reference Range: Low Risk <200 Borderline 200-239 High Risk > 240HDL Cholesterol Reference Range: Low Risk >=60 High Risk <40LDL Cholesterol Reference Range: Optimal <100 Near Optimal 100-129 Borderline 130-159 High 160-189 Very High >=190BASIC METABOLIC [id number] 05:00:00 Test Item Value Reference Range Comments SODIUM (BEAKER) (test 133 meq/L 136-145 cxyi=294) POTASSIUM (BEAKER) (test 4.1 meq/L 3.5-5.1 urjt=018) CHLORIDE (BEAKER) (test 105 meq/L 98-107 gwts=978) CO2 (BEAKER) (test 17 meq/L 22-29 baua=312) BLOOD UREA NITROGEN 8 mg/dL 7-21 (BEAKER) (test ugwj=809) CREATININE (BEAKER) (test 0.51 mg/dL 0.57-1.25 kkjy=151) GLUCOSE RANDOM (BEAKER) 54 mg/dL 70-105 (test ftqy=467) CALCIUM (BEAKER) (test 8.4 mg/dL 8.4-10.2 fifz=474) EGFR (BEAKER) (test 183 mL/min/1.73 sq m ESTIMATED GFR IS NOT glmz=9923) ACCURATE CREATININE CLEARANCE IN PREDICTING GLOMERULAR FILTRATION RATE. ESTIMATED GFR IS NOT APPLICABLE FOR DIALYSIS PATIENTS. HEPATIC FUNCTION [id number] 05:00:00 Test Item Value Reference Range Comments TOTAL PROTEIN (BEAKER) (test fgvu=380) 6.3 gm/dL 6.0-8.3 ALBUMIN (BEAKER) (test jnly=2314) 3.2 g/dL 3.5-5.0 BILIRUBIN TOTAL (BEAKER) (test quzf=682) 0.7 mg/dL 0.2-1.2 BILIRUBIN DIRECT (BEAKER) (test qeny=563) 0.3 mg/dL 0.1-0.5 ALKALINE PHOSPHATASE (BEAKER) (test amio=120) 62 U/L 40-150 AST (SGOT) (BEAKER) (test lant=981) 13 U/L 5-34 ALT (SGPT) (BEAKER) (test feyw=279) 9 U/L 6-55 [id number] 05:00:00 Test Item Value Reference Range Comments LIPASE (BEAKER) (test khvh=974) 1007 U/L 8-78 CBC (HEMOGRAM ONLY)2017-05-14 04:39:00 Test Item Value Reference Range Comments WHITE BLOOD CELL COUNT (BEAKER) (test axph=510) 16.6 K/ L 3.5-10.5 RED BLOOD CELL COUNT (BEAKER) (test kjyb=479) 3.98 M/ L 4.63-6.08 HEMOGLOBIN (BEAKER) (test frpk=552) 12.0 GM/DL 13.7-17.5 HEMATOCRIT (BEAKER) (test cyec=453) 37.2 % 40.1-51.0 MEAN CORPUSCULAR VOLUME (BEAKER) (test rbpk=867) 93.5 fL 79.0-92.2 MEAN CORPUSCULAR HEMOGLOBIN (BEAKER) (test 30.2 pg 25.7-32.2 lyio=406) MEAN CORPUSCULAR HEMOGLOBIN CONC (BEAKER) (test 32.3 GM/DL 32.3-36.5 xlnh=175) RED CELL DISTRIBUTION WIDTH (BEAKER) (test 14.5 % 11.6-14.4 jugi=599) PLATELET COUNT (BEAKER) (test palt=722) 527 K/CU MM 150-450 MEAN PLATELET VOLUME (BEAKER) (test bwvf=550) 9.5 fL 9.4-12.4 NUCLEATED RED BLOOD CELLS (BEAKER) (test 0 /100 WBC 0-0 kdcn=753) MR, ABDOMEN, [id number] 12:25:00FINAL REPORT MRI of the abdomen, MRCP. [...] biliary dilatation or choledocholithiasis. Signed[facility] Ver[facility] Date/Time: 03/13/2017 12:25:41 Reading Location: [facility] [id number] [facility] Consult Reading Room Electronically signed by: KIKO VEE M.D. on 12:25 [facility] [id number] 05:05:00 Test Item Value Reference Range Comments SODIUM (BEAKER) (test 139 meq/L 136-145 ilmz=811) POTASSIUM (BEAKER) (test 3.7 meq/L 3.5-5.1 mwdl=536) CHLORIDE (BEAKER) (test 108 meq/L 98-107 irst=919) CO2 (BEAKER) (test 22 meq/L 22-29 trqq=162) BLOOD UREA NITROGEN 4 mg/dL 7-21 (BEAKER) (test slzy=001) CREATININE (BEAKER) (test 0.58 mg/dL 0.57-1.25 veif=955) GLUCOSE RANDOM (BEAKER) 95 mg/dL 70-105 (test sgeo=102) CALCIUM (BEAKER) (test 8.5 mg/dL 8.4-10.2 qpvz=770) EGFR (BEAKER) (test 158 mL/min/1.73 sq m ESTIMATED GFR IS NOT tuxk=3113) ACCURATE CREATININE CLEARANCE IN PREDICTING GLOMERULAR FILTRATION RATE. ESTIMATED GFR IS NOT APPLICABLE FOR DIALYSIS PATIENTS. CBC W/PLT COUNT & AUTO [id number] 04:49:00 Test Item Value Reference Range Comments WHITE BLOOD CELL COUNT (BEAKER) (test dicn=440) 6.3 K/ L 3.5-10.5 RED BLOOD CELL COUNT (BEAKER) (test fdkm=353) 4.32 M/ L 4.63-6.08 HEMOGLOBIN (BEAKER) (test pgoe=344) 13.7 GM/DL 13.7-17.5 HEMATOCRIT (BEAKER) (test pfkn=707) 40.3 % 40.1-51.0 MEAN CORPUSCULAR VOLUME (BEAKER) (test mubz=487) 93.3 fL 79.0-92.2 MEAN CORPUSCULAR HEMOGLOBIN (BEAKER) (test 31.7 pg 25.7-32.2 cvyz=581) MEAN CORPUSCULAR HEMOGLOBIN CONC (BEAKER) (test 34.0 GM/DL 32.3-36.5 dhdf=559) RED CELL DISTRIBUTION WIDTH (BEAKER) (test 11.9 % 11.6-14.4 sqya=439) PLATELET COUNT (BEAKER) (test hxvt=118) 286 K/CU MM 150-450 MEAN PLATELET VOLUME (BEAKER) (test zvin=054) 9.4 fL 9.4-12.4 NUCLEATED RED BLOOD CELLS (BEAKER) (test 0 /100 WBC 0-0 fyxd=016) NEUTROPHILS RELATIVE PERCENT (BEAKER) (test 51 % ptlf=702) LYMPHOCYTES RELATIVE PERCENT (BEAKER) (test 31 % qvyz=128) MONOCYTES RELATIVE PERCENT (BEAKER) (test 11 % jqye=323) EOSINOPHILS RELATIVE PERCENT (BEAKER) (test 6 % zmwz=018) BASOPHILS RELATIVE PERCENT (BEAKER) (test 1 % wdbe=454) NEUTROPHILS ABSOLUTE COUNT (BEAKER) (test 3.21 K/ L 1.78-5.38 zuar=727) LYMPHOCYTES ABSOLUTE COUNT (BEAKER) (test 1.91 K/ L 1.32-3.57 jzzr=881) MONOCYTES ABSOLUTE COUNT (BEAKER) (test 0.68 K/ L 0.30-0.82 mfnr=514) EOSINOPHILS ABSOLUTE COUNT (BEAKER) (test 0.40 K/ L 0.04-0.54 sqhq=928) BASOPHILS ABSOLUTE COUNT (BEAKER) (test 0.04 K/ L 0.01-0.08 aeze=423) IMMATURE GRANULOCYTES-RELATIVE PERCENT (BEAKER) 1 % 0-1 (test wepq=4756) CBC W/PLT COUNT & AUTO [id number] 04:52:00 Test Item Value Reference Range Comments WHITE BLOOD CELL COUNT (BEAKER) (test sgff=406) 6.2 K/ L 3.5-10.5 RED BLOOD CELL COUNT (BEAKER) (test vwxr=255) 4.31 M/ L 4.63-6.08 HEMOGLOBIN (BEAKER) (test qjbf=434) 13.7 GM/DL 13.7-17.5 HEMATOCRIT (BEAKER) (test sdul=220) 41.1 % 40.1-51.0 MEAN CORPUSCULAR VOLUME (BEAKER) (test yznb=371) 95.4 fL 79.0-92.2 MEAN CORPUSCULAR HEMOGLOBIN (BEAKER) (test 31.8 pg 25.7-32.2 bium=657) MEAN CORPUSCULAR HEMOGLOBIN CONC (BEAKER) (test 33.3 GM/DL 32.3-36.5 adxe=080) RED CELL DISTRIBUTION WIDTH (BEAKER) (test 12.1 % 11.6-14.4 txsg=047) PLATELET COUNT (BEAKER) (test bpeg=838) 295 K/CU MM 150-450 MEAN PLATELET VOLUME (BEAKER) (test qhqi=484) 9.5 fL 9.4-12.4 NUCLEATED RED BLOOD CELLS (BEAKER) (test 0 /100 WBC 0-0 ldms=679) NEUTROPHILS RELATIVE PERCENT (BEAKER) (test 51 % pncf=821) LYMPHOCYTES RELATIVE PERCENT (BEAKER) (test 31 % kcio=829) MONOCYTES RELATIVE PERCENT (BEAKER) (test 11 % xxmc=040) EOSINOPHILS RELATIVE PERCENT (BEAKER) (test 7 % yyfw=323) BASOPHILS RELATIVE PERCENT (BEAKER) (test 1 % vzbq=355) NEUTROPHILS ABSOLUTE COUNT (BEAKER) (test 3.17 K/ L 1.78-5.38 bhdt=529) LYMPHOCYTES ABSOLUTE COUNT (BEAKER) (test 1.89 K/ L 1.32-3.57 yrsw=171) MONOCYTES ABSOLUTE COUNT (BEAKER) (test 0.65 K/ L 0.30-0.82 sgac=265) EOSINOPHILS ABSOLUTE COUNT (BEAKER) (test 0.41 K/ L 0.04-0.54 ickl=061) BASOPHILS ABSOLUTE COUNT (BEAKER) (test 0.05 K/ L 0.01-0.08 dyus=594) IMMATURE GRANULOCYTES-RELATIVE PERCENT (BEAKER) 1 % 0-1 (test wndz=1120) COMPREHENSIVE METABOLIC [id number] 11:20:00 Test Item Value Reference Range Comments TOTAL PROTEIN (BEAKER) 7.2 gm/dL 6.0-8.3 (test vsgp=736) ALBUMIN (BEAKER) (test 3.7 g/dL 3.5-5.0 gxur=7953) ALKALINE PHOSPHATASE 73 U/L 40-150 (BEAKER) (test wadl=192) BILIRUBIN TOTAL (BEAKER) 0.6 mg/dL 0.2-1.2 (test jfuv=603) SODIUM (BEAKER) (test 135 meq/L 136-145 thry=224) POTASSIUM (BEAKER) (test 5.0 meq/L 3.5-5.1 fafc=144) CHLORIDE (BEAKER) (test 109 meq/L 98-107 jwiq=027) CO2 (BEAKER) (test 14 meq/L 22-29 hpud=697) BLOOD UREA NITROGEN 6 mg/dL 7-21 (BEAKER) (test hisx=235) CREATININE (BEAKER) (test 0.62 mg/dL 0.57-1.25 sxbz=886) GLUCOSE RANDOM (BEAKER) 45 mg/dL 70-105 (test mugo=178) CALCIUM (BEAKER) (test 8.6 mg/dL 8.4-10.2 vfrr=742) AST (SGOT) (BEAKER) (test 17 U/L 5-34 yoev=047) ALT (SGPT) (BEAKER) (test 14 U/L 6-55 xfyj=461) EGFR (BEAKER) (test 146 mL/min/1.73 sq ESTIMATED GFR IS NOT gahf=0339) m ACCURATE CREATININE CLEARANCE IN PREDICTING GLOMERULAR FILTRATION RATE. ESTIMATED GFR IS NOT APPLICABLE FOR DIALYSIS PATIENTS. CBC W/PLT COUNT & AUTO [id number] 09:54:00 Test Item Value Reference Range Comments WHITE BLOOD CELL COUNT (BEAKER) (test bhtx=095) 7.4 K/ L 3.5-10.5 RED BLOOD CELL COUNT (BEAKER) (test odqw=908) 4.32 M/ L 4.63-6.08 HEMOGLOBIN (BEAKER) (test grgu=613) 13.6 GM/DL 13.7-17.5 HEMATOCRIT (BEAKER) (test ojmv=792) 41.8 % 40.1-51.0 MEAN CORPUSCULAR VOLUME (BEAKER) (test gmek=898) 96.8 fL 79.0-92.2 MEAN CORPUSCULAR HEMOGLOBIN (BEAKER) (test 31.5 pg 25.7-32.2 prxm=439) MEAN CORPUSCULAR HEMOGLOBIN CONC (BEAKER) (test 32.5 GM/DL 32.3-36.5 mgvz=258) RED CELL DISTRIBUTION WIDTH (BEAKER) (test 12.1 % 11.6-14.4 ctks=669) PLATELET COUNT (BEAKER) (test qrhp=769) 277 K/CU MM 150-450 MEAN PLATELET VOLUME (BEAKER) (test gzve=865) 9.7 fL 9.4-12.4 NUCLEATED RED BLOOD CELLS (BEAKER) (test 0 /100 WBC 0-0 rbyz=843) NEUTROPHILS RELATIVE PERCENT (BEAKER) (test 57 % ijgk=730) LYMPHOCYTES RELATIVE PERCENT (BEAKER) (test 29 % swrb=262) MONOCYTES RELATIVE PERCENT (BEAKER) (test 8 % orxb=613) EOSINOPHILS RELATIVE PERCENT (BEAKER) (test 5 % sjed=242) BASOPHILS RELATIVE PERCENT (BEAKER) (test 1 % gvqv=180) NEUTROPHILS ABSOLUTE COUNT (BEAKER) (test 4.23 K/ L 1.78-5.38 udsx=346) LYMPHOCYTES ABSOLUTE COUNT (BEAKER) (test 2.10 K/ L 1.32-3.57 hiua=036) MONOCYTES ABSOLUTE COUNT (BEAKER) (test 0.57 K/ L 0.30-0.82 xtle=626) EOSINOPHILS ABSOLUTE COUNT (BEAKER) (test 0.38 K/ L 0.04-0.54 befh=314) BASOPHILS ABSOLUTE COUNT (BEAKER) (test 0.05 K/ L 0.01-0.08 xlbs=200) IMMATURE GRANULOCYTES-RELATIVE PERCENT (BEAKER) 1 % 0-1 (test iask=3220) (MANUAL DIFFERENTIAL)2017-03-11 09:54:00 Test Item Value Reference Range Comments TOTAL COUNTED (BEAKER) (test uisy=0512) WBC MORPHOLOGY (BEAKER) (test cgqa=899) Normal PLT MORPHOLOGY (BEAKER) (test djxo=717) Normal RBC MORPHOLOGY (BEAKER) (test isit=055) Normal CBC W/PLT COUNT & AUTO [id number] 09:09:00 Test Item Value Reference Range Comments WHITE BLOOD CELL COUNT (BEAKER) (test fbrw=081) 8.9 K/ L 3.5-10.5 RED BLOOD CELL COUNT (BEAKER) (test iugn=096) 4.25 M/ L 4.63-6.08 HEMOGLOBIN (BEAKER) (test ucsd=238) 13.6 GM/DL 13.7-17.5 HEMATOCRIT (BEAKER) (test ieuf=773) 40.7 % 40.1-51.0 MEAN CORPUSCULAR VOLUME (BEAKER) (test omng=066) 95.8 fL 79.0-92.2 MEAN CORPUSCULAR HEMOGLOBIN (BEAKER) (test 32.0 pg 25.7-32.2 xnvw=833) MEAN CORPUSCULAR HEMOGLOBIN CONC (BEAKER) (test 33.4 GM/DL 32.3-36.5 exot=626) RED CELL DISTRIBUTION WIDTH (BEAKER) (test 12.1 % 11.6-14.4 kfcg=542) PLATELET COUNT (BEAKER) (test hzwc=507) 274 K/CU MM 150-450 MEAN PLATELET VOLUME (BEAKER) (test nsxy=323) 9.8 fL 9.4-12.4 NUCLEATED RED BLOOD CELLS (BEAKER) (test 0 /100 WBC 0-0 kqdt=243) NEUTROPHILS RELATIVE PERCENT (BEAKER) (test 62 % pzwf=999) LYMPHOCYTES RELATIVE PERCENT (BEAKER) (test 24 % isra=756) MONOCYTES RELATIVE PERCENT (BEAKER) (test 7 % gatb=045) EOSINOPHILS RELATIVE PERCENT (BEAKER) (test 5 % ticr=645) BASOPHILS RELATIVE PERCENT (BEAKER) (test 1 % gkby=611) NEUTROPHILS ABSOLUTE COUNT (BEAKER) (test 5.55 K/ L 1.78-5.38 ovce=874) LYMPHOCYTES ABSOLUTE COUNT (BEAKER) (test 2.14 K/ L 1.32-3.57 ovjq=016) MONOCYTES ABSOLUTE COUNT (BEAKER) (test 0.64 K/ L 0.30-0.82 qgce=470) EOSINOPHILS ABSOLUTE COUNT (BEAKER) (test 0.48 K/ L 0.04-0.54 okgk=239) BASOPHILS ABSOLUTE COUNT (BEAKER) (test 0.07 K/ L 0.01-0.08 hjsy=341) IMMATURE GRANULOCYTES-RELATIVE PERCENT (BEAKER) 0 % 0-1 (test ruud=8991) (MANUAL DIFFERENTIAL)2017-03-10 09:09:00 Test Item Value Reference Range Comments TOTAL COUNTED (BEAKER) (test rywe=6359) WBC MORPHOLOGY (BEAKER) (test gmth=296) Normal PLT MORPHOLOGY (BEAKER) (test dbdg=417) Normal RBC MORPHOLOGY (BEAKER) (test hqfg=642) Normal COMPREHENSIVE METABOLIC [id number] 07:30:00 Test Item Value Reference Range Comments TOTAL PROTEIN (BEAKER) 6.8 gm/dL 6.0-8.3 (test care=349) ALBUMIN (BEAKER) (test 3.6 g/dL 3.5-5.0 jpck=0638) ALKALINE PHOSPHATASE 77 U/L 40-150 (BEAKER) (test ukts=050) BILIRUBIN TOTAL (BEAKER) 0.6 mg/dL 0.2-1.2 (test ouff=495) SODIUM (BEAKER) (test 136 meq/L 136-145 slto=304) POTASSIUM (BEAKER) (test 4.3 meq/L 3.5-5.1 pvah=584) CHLORIDE (BEAKER) (test 105 meq/L 98-107 xetx=176) CO2 (BEAKER) (test 19 meq/L 22-29 znrr=686) BLOOD UREA NITROGEN 6 mg/dL 7-21 (BEAKER) (test cpnu=102) CREATININE (BEAKER) (test 0.57 mg/dL 0.57-1.25 ovhx=819) GLUCOSE RANDOM (BEAKER) 52 mg/dL 70-105 (test zfjq=585) CALCIUM (BEAKER) (test 8.2 mg/dL 8.4-10.2 itgf=229) AST (SGOT) (BEAKER) (test 17 U/L 5-34 ipwk=104) ALT (SGPT) (BEAKER) (test 14 U/L 6-55 zdqe=318) EGFR (BEAKER) (test 161 mL/min/1.73 sq ESTIMATED GFR IS NOT yvgy=2404) m ACCURATE CREATININE CLEARANCE IN PREDICTING GLOMERULAR FILTRATION RATE. ESTIMATED GFR IS NOT APPLICABLE FOR DIALYSIS PATIENTS. CBC W/PLT COUNT & AUTO [id number] 10:49:00 Test Item Value Reference Range Comments WHITE BLOOD CELL COUNT (BEAKER) (test xefc=856) 6.9 K/ L 3.5-10.5 RED BLOOD CELL COUNT (BEAKER) (test pgkz=935) 3.83 M/ L 4.63-6.08 HEMOGLOBIN (BEAKER) (test zzvz=546) 12.5 GM/DL 13.7-17.5 HEMATOCRIT (BEAKER) (test daah=804) 36.7 % 40.1-51.0 MEAN CORPUSCULAR VOLUME (BEAKER) (test ibca=476) 95.8 fL 79.0-92.2 MEAN CORPUSCULAR HEMOGLOBIN (BEAKER) (test 32.6 pg 25.7-32.2 ahvg=233) MEAN CORPUSCULAR HEMOGLOBIN CONC (BEAKER) (test 34.1 GM/DL 32.3-36.5 angn=136) RED CELL DISTRIBUTION WIDTH (BEAKER) (test 12.4 % 11.6-14.4 bvyg=210) PLATELET COUNT (BEAKER) (test wfvr=740) 267 K/CU MM 150-450 MEAN PLATELET VOLUME (BEAKER) (test yuuf=935) 9.7 fL 9.4-12.4 NUCLEATED RED BLOOD CELLS (BEAKER) (test 0 /100 WBC 0-0 zxot=330) NEUTROPHILS RELATIVE PERCENT (BEAKER) (test 60 % ahjc=901) LYMPHOCYTES RELATIVE PERCENT (BEAKER) (test 26 % kyzm=936) MONOCYTES RELATIVE PERCENT (BEAKER) (test 7 % almp=605) EOSINOPHILS RELATIVE PERCENT (BEAKER) (test 6 % lfpc=133) BASOPHILS RELATIVE PERCENT (BEAKER) (test 1 % rtpw=657) NEUTROPHILS ABSOLUTE COUNT (BEAKER) (test 4.15 K/ L 1.78-5.38 rmtt=475) LYMPHOCYTES ABSOLUTE COUNT (BEAKER) (test 1.82 K/ L 1.32-3.57 gvhh=558) MONOCYTES ABSOLUTE COUNT (BEAKER) (test 0.47 K/ L 0.30-0.82 hhnh=117) EOSINOPHILS ABSOLUTE COUNT (BEAKER) (test 0.38 K/ L 0.04-0.54 kene=479) BASOPHILS ABSOLUTE COUNT (BEAKER) (test 0.04 K/ L 0.01-0.08 vqzw=355) COMPREHENSIVE METABOLIC [id number] 10:45:00 Test Item Value Reference Range Comments TOTAL PROTEIN (BEAKER) 6.2 gm/dL 6.0-8.3 (test lmow=829) ALBUMIN (BEAKER) (test 3.3 g/dL 3.5-5.0 xzwr=8235) ALKALINE PHOSPHATASE 70 U/L 40-150 (BEAKER) (test wxxx=023) BILIRUBIN TOTAL (BEAKER) 0.4 mg/dL 0.2-1.2 (test ymhx=615) SODIUM (BEAKER) (test 138 meq/L 136-145 ufzj=265) POTASSIUM (BEAKER) (test 3.5 meq/L 3.5-5.1 klbl=193) CHLORIDE (BEAKER) (test 109 meq/L 98-107 ibwj=009) CO2 (BEAKER) (test 23 meq/L 22-29 oqkj=485) BLOOD UREA NITROGEN 5 mg/dL 7-21 (BEAKER) (test ggwn=555) CREATININE (BEAKER) (test 0.54 mg/dL 0.57-1.25 sftw=026) GLUCOSE RANDOM (BEAKER) 77 mg/dL 70-105 (test szwr=388) CALCIUM (BEAKER) (test 7.6 mg/dL 8.4-10.2 nkyn=103) AST (SGOT) (BEAKER) (test 18 U/L 5-34 grft=619) ALT (SGPT) (BEAKER) (test 15 U/L 6-55 mhbr=132) EGFR (BEAKER) (test 171 mL/min/1.73 sq ESTIMATED GFR IS NOT iodo=7610) m ACCURATE CREATININE CLEARANCE IN PREDICTING GLOMERULAR FILTRATION RATE. ESTIMATED GFR IS NOT APPLICABLE FOR DIALYSIS PATIENTS. [id number] 10:29:00 Test Item Value Reference Range Comments TRIGLYCERIDES (BEAKER) (test bgzc=516) 58 mg/dL TRIGLYCERIDE REFERENCE RANGELow Risk <150Borderline Risk 150-199High Risk 200-499Very High Risk>=[id number] 10:29:00 Test Item Value Reference Range Comments MAGNESIUM (BEAKER) (test xojw=313) 1.4 mg/dL 1.6-2.6 [id number] 10:29:00 Test Item Value Reference Range Comments LIPASE (BEAKER) (test cfzj=350) 536 U/L 8-78 PROTHROMBIN [id number] 10:22:00 Test Item Value Reference Range Comments PROTIME (BEAKER) (test lecj=172) 14.3 seconds 11.7-14.7 INR (BEAKER) (test juty=684) 1.1 <=5.9 RECOMMENDED COUMADIN/WARFARIN INR THERAPY RANGESSTANDARD DOSE: 2.0 - 3.0 Includes: PROPHYLAXIS forvenous thrombosis, systemic embolization; TREATMENT for venous thrombosis and/or pulmonary embolus.HIGH RISK: Target INR is 2.5-3.5 for patients with mechanical heart valves.
--- OUTSIDE RECORDS SUMMARY | 2018-03-23 16:51 | XMS REPORT ---
[...] End Status Dosage System Date Date Apixaban [facility] [address]-23 2.5 MG Orally Active not defined Tramadol HCl [facility] [id number] 50 MG Orally Active 1 tablet every 6 hrs as needed Results No Known Results Summary Purpose eClinicalWorks Submission
[2018-03-23 17:12] LABS: Absolute Lymphocytes (CBC) 1.5 K/uL (0.7-4.9); Absolute Monocytes 0.6 K/uL (0.1-1.3); Absolute Neutrophil 4.9 K/uL (1.8-8.0); Basophils % 0.9 % (0-1.3); Eosinophils % 0.2 % (0-4.4); Hematocrit 45.3 % (39.6-49.0); MPV 8.4 fL (7.6-11.3); RBC Red Blood Cell Count 4.69 M/uL (4.33-5.43)
[2018-03-23] MEDS ORDERED: NA CHLORIDE 0.9% 1,000 ML ONE (17:12)
[2018-03-23 17:36] LABS: BUN Blood Urea Nitrogen 4 mg/dL (7-18); Bicarbonate 28 mmol/L (21-32); Glucose Level 95 mg/dL (74-106); Potassium 3.4 mmol/L (3.5-5.1); Sodium Level 141 mmol/L (136-145)
[2018-03-23 17:37] LABS: ALT/SGPT 99 U/L (12-78); AST/SGOT 108 U/L (15-37); Albumin 4.4 g/dL (3.4-5.0); Alkaline Phosphatase 90 U/L (45-117); Bilirubin Direct 0.3 mg/dL (0-0.2); Bilirubin Total 0.8 mg/dL (0.2-1.0); Lipase 163 U/L (73-393); Protein, Total 8.4 g/dL (6.4-8.2)
[2018-03-23] MEDS ORDERED: ONDANSETRON 4 MG/2 ML VIAL ONE (17:43)
[2018-03-23] MEDS ORDERED: PANTOPRAZOLE 40 MG INJ ONE (17:43)
[2018-03-23] MEDS ORDERED: FENTANYL CITR 100 MCG/2 ML ONE (17:43)
--- NOTE | 2018-03-23 18:18 | ER ---
Nurse's Notes [facility] Name: Ankit Rosales Age: 37 yrs Sex: Male : 1980 Arrival Date: 03/23/2018 Time: 16:29 Bed 6 Private MD: Diagnosis: Alcohol abuse with intoxication;Alcohol-induced chronic pancreatitis Presentation: 03/23 16:29 Presenting complaint: EMS states: Abdominal pain, N/V/D since last night, hx of ph pancreatitis, recently seen in ED for same complaint, admits to drinking 3-4 beers today. Transition of care: patient was not received from another setting of care. Onset of symptoms was March 23, 2018. Risk Assessment: Do you want to hurt yourself or someone else? Patient reports no desire to harm self or others. Initial Sepsis Screen: Does the patient meet any 2 criteria? No. Patient's initial sepsis screen is negative. Does the patient have a suspected source of infection? No. Patient's initial sepsis screen is negative. Care prior to arrival: None. 16:29 Method Of Arrival: EMS: [facility] 16:29 Acuity: KRAIG 3 ph Historical: - Allergies: 16:33 NKDA; ph - Home Meds: 16:33 None [Active]; ph - PMHx: 16:33 Cirrhosis; GALLSTONES; left leg DVT; Pancreatitis; ph - Immunization history:: Adult Immunizations unknown. - Social history:: Smoking status: Patient uses tobacco products, smokes one pack cigarettes per day. Patient uses alcohol. - Ebola Screening: : No symptoms or risks identified at this time. Screenin:34 Abuse screen: Denies threats or abuse. Denies injuries from another. Nutritional ph screening: No deficits noted. Tuberculosis screening: No symptoms or risk factors identified. Fall Risk None identified. Assessment: 16:35 General: Appears in no apparent distress. uncomfortable, slender, Behavior is ph cooperative, appropriate for age, anxious, Denies fever. Pain: Complains of pain in right upper quadrant Pain currently is 10 out of 10 on a pain scale. Neuro: Level of Consciousness is awake, alert, obeys commands, Oriented to person, place, time, situation. Cardiovascular: Capillary refill < 3 seconds in bilateral fingers Patient's skin is warm and dry. Respiratory: Airway is patent Respiratory effort is even, unlabored, Respiratory pattern is regular, symmetrical. GI: Abdomen is flat, Bowel sounds present X 4 quads. Abd is soft X 4 quads Abdomen is tender to palpation in right upper quadrant and left upper quadrant Reports upper abdominal pain, diarrhea, nausea, vomiting, since last night. Derm: Skin is intact, Skin is pink, warm \T\ dry. Musculoskeletal: Circulation, motion, and sensation intact. Range of motion: intact in all extremities. 17:35 Reassessment: Patient appears in no apparent distress at this time. Patient and/or ph family updated on plan of care and expected duration. Pain level reassessed. Patient is alert, oriented x 3, equal unlabored respirations, skin warm/dry/pink. 18:52 Reassessment: Patient appears in no apparent distress at this time. Patient and/or ph family updated on plan of care and expected duration. Pain level reassessed. Patient is alert, oriented x 3, equal unlabored respirations, skin warm/dry/pink. Pt d/c home w/ friend. Vital Signs: 16:31 BP 140 / 103; Pulse 107; Resp 22; Temp 97.6; Pulse Ox 99% on R/A; Weight 61.23 kg; ph Height 5 ft. 5 in. (165.10 cm); Pain 10/10; 17:41 BP 140 / 96; Pulse 102; Resp 20; Pulse Ox 99% on R/A; ph 18:53 BP 150 / 89; Pulse 101; Resp 18; Temp 97.8; Pulse Ox 100% on R/A; ph 16:31 Body Mass Index 22.46 (61.23 kg, 165.10 cm) ph Vitals: 17:41 Cardiac Rhythm Assessment Sinus tach. ph ED Course: 16:29 Patient arrived in ED. ph 16:31 Triage completed. ph 16:33 Rachid Rojas PA is PHCP. jr8 16:33 Alexandru Chan MD is Attending Physician. jr8 16:34 Arm band placed on. ph 16:34 Patient has correct armband on for positive identification. Bed in low position. Call ph light in reach. Side rails up X 1. Pulse ox on. NIBP on. Warm blanket given. 16:58 Initial lab(s) drawn, by me, sent to lab. Inserted saline lock: 22 gauge in left jb1 antecubital area, using aseptic technique. Blood collected. 17:00 Ankit Quintero, RN is Primary Nurse. sg 17:44 PHCP role handed off by Rachid Rojas PA sn 17:44 Shana Mccrary FNP-C is PHCP. snw 19:02 No provider procedures requiring assistance completed. IV discontinued, intact, ph bleeding controlled, No redness/swelling at site. Pressure dressing applied. Administered Medications: 17:40 Drug: NS 0.9% 1000 ml Route: IV; Rate: 1000 ml; Site: left antecubital; ph 18:27 Follow up: Response: No adverse reaction; IV Status: Completed infusion ph 17:40 Drug: ProTONIX 40 mg Route: IVP; Site: left antecubital; ph 18:28 Follow up: Response: No adverse reaction ph 17:41 Drug: fentaNYL (PF) 50 mcg Route: IVP; Site: left antecubital; ph 18:28 Follow up: Response: No adverse reaction ph 17:41 Drug: Zofran 4 mg Route: IVP; Site: left antecubital; ph 18:28 Follow up: Response: No adverse reaction ph 18:12 CANCELLED (other intervention used): CarafATE 1 grams PO once snw 18:49 Drug: GI Cocktail without - (Maalox Suspension 30 ml, Lidocaine Liquid 2 % 15 ph ml) Route: PO; 18:49 Follow up: Response: No adverse reaction ph 18:50 Follow up: Response: No adverse reaction ph Outcome: 18:17 Discharge ordered by MD. snw 19:02 Discharged to home ambulatory, with friend. ph 19:02 Condition: good 19:02 Discharge instructions given to patient, Instructed on discharge instructions, follow up and referral plans. medication usage, Demonstrated understanding of instructions, follow-up care, medications, Prescriptions given X 1. 19:03 Patient left the ED. ph Signatures: Alf Canseco jb1 Ankit Quintero RN RN Shana Mccrary FNP-[facility] RN-Csnw Rachid Rojas PA PA jr8 Vicky Long RN RN ph
--- NOTE | 2018-03-23 18:18 | EDPHYS ---
Physician Documentation [facility] Name: Ankit Rosales Age: 37 yrs Sex: Male : 1980 Arrival Date: 03/23/2018 Time: 16:29 Bed 6 Private MD: ED Physician Alexandru Chan HPI: 03/23 17:10 This 37 yrs old Male presents to ER via EMS with complaints of Abdominal Pain.jr8 17:10 The patient presents with abdominal pain in the upper abdomen. Onset: The jr8 symptoms/episode began/occurred acutely, today. The symptoms do not radiate. Associated signs and symptoms: Pertinent positives: nausea and vomiting. The symptoms are described as stabbing. Modifying factors: The symptoms are alleviated by nothing, the symptoms are aggravated by alcohol. Severity of pain: At its worst the pain was moderate in the emergency department the pain is unchanged. The patient has experienced similar episodes in the past, several times. The patient has been recently seen by a physician:. Patient was admitted and discharged on the of this month. Stated that he was having flare up of his pancreas. Stated that he had been heavily drinking. Patient smells like alcohol. Came back today with upper abdominal discomfort . Historical: - Allergies: 16:33 NKDA; ph - Home Meds: 16:33 None [Active]; ph - PMHx: 16:33 Cirrhosis; GALLSTONES; left leg DVT; Pancreatitis; ph - Immunization history:: Adult Immunizations unknown. - Social history:: Smoking status: Patient uses tobacco products, smokes one pack cigarettes per day. Patient uses alcohol. - Ebola Screening: : No symptoms or risks identified at this time. ROS: 17:13 Eyes: Negative for injury, pain, redness, and discharge, ENT: Negative for injury, jr8 pain, and discharge, Neck: Negative for injury, pain, and swelling, Cardiovascular: Negative for chest pain, palpitations, and edema, Respiratory: Negative for shortness of breath, cough, wheezing, and pleuritic chest pain, Back: Negative for injury and pain, MS/Extremity: Negative for injury and deformity, Skin: Negative for injury, rash, and discoloration, Neuro: Negative for headache, weakness, numbness, tingling, and seizure. 17:13 Abdomen/GI: Positive for abdominal pain, nausea and vomiting, Negative for diarrhea, constipation, abdominal cramps, abdominal distension. Exam: 17:13 Eyes: Pupils equal round and reactive to light, extra-ocular motions intact. Lids and jr8 lashes normal. Conjunctiva and sclera are non-icteric and not injected. Cornea within normal limits. Periorbital areas with no swelling, redness, or edema. ENT: Nares patent. No nasal discharge, no septal abnormalities noted. Tympanic membranes are normal and external auditory canals are clear. Oropharynx with no redness, swelling, or masses, exudates, or evidence of obstruction, uvula midline. Mucous membranes moist. Neck: Trachea midline, no thyromegaly or masses palpated, and no cervical lymphadenopathy. Supple, full range of motion without nuchal rigidity, or vertebral point tenderness. No Meningismus. Cardiovascular: Regular rate and rhythm with a normal S1 and S2. No gallops, murmurs, or rubs. Normal PMI, no JVD. No pulse deficits. Respiratory: Lungs have equal breath sounds bilaterally, clear to auscultation and percussion. No rales, rhonchi or wheezes noted. No increased work of breathing, no retractions or nasal flaring. Back: No spinal tenderness. No costovertebral tenderness. Full range of motion. Skin: Warm, dry with normal turgor. Normal color with no rashes, no lesions, and no evidence of cellulitis. MS/ Extremity: Pulses equal, no cyanosis. Neurovascular intact. Full, normal range of motion. Neuro: Awake and alert, GCS 15, oriented to person, place, time, and situation. Cranial nerves II-XII grossly intact. Motor strength 5/5 in all extremities. Sensory grossly intact. Cerebellar exam normal. Normal gait. 17:13 Abdomen/GI: Inspection: abdomen appears normal, Bowel sounds: active, all quadrants, Palpation: soft, in all quadrants, mild abdominal tenderness, in the epigastric area, right upper quadrant and left upper quadrant, mass, is not appreciated, rebound tenderness, is not appreciated, voluntary guarding, is not appreciated, involuntary guarding, is not appreciated, no appreciated organomegaly, Indicators: McBurney's point is not tender, Romero's sign is negative, Rovsing's sign is negative, Liver: tenderness, is not appreciated. Vital Signs: 16:31 BP 140 / 103; Pulse 107; Resp 22; Temp 97.6; Pulse Ox 99% on R/A; Weight 61.23 kg; ph Height 5 ft. 5 in. (165.10 cm); Pain 10/10; 17:41 BP 140 / 96; Pulse 102; Resp 20; Pulse Ox 99% on R/A; ph 18:53 BP 150 / 89; Pulse 101; Resp 18; Temp 97.8; Pulse Ox 100% on R/A; ph 16:31 Body Mass Index 22.46 (61.23 kg, 165.10 cm) ph MDM: 16:33 Patient medically screened. 18:18 Data reviewed: vital signs, nurses notes. Data interpreted: Pulse oximetry: on room air snw is 99 %. Interpretation: normal. Counseling: I had a detailed discussion with the patient and/or guardian regarding: the historical points, exam findings, and any diagnostic results supporting the discharge/admit diagnosis, the presence of at least one elevated blood pressure reading (>120/80) during this emergency department visit, lab results, the need for outpatient follow up, to return to the emergency department if symptoms worsen or persist or if there are any questions or concerns that arise at home. Special discussion: Based on the patient's Hx, exam, and Dx evaluation, there is no indication for emergent surgery or inpatient Tx. It is understood by the patient/guardian that if the Sx's persist or worsen they need to return immediately for re-evaluation. Based on the history and exam findings, there is no indication for further emergent testing or inpatient evaluation. I discussed with the patient/guardian the need to see the area safety manager for further evaluation of the symptoms. I discussed with the patient/guardian the need to see the primary care provider for further evaluation of the symptoms. I discussed with the patient/guardian the need to see the psychiatrist for further evaluation of the symptoms. 03/23 16:33 Order name: Basic Metabolic Panel; Complete Time: 17:38 03/23 16:33 Order name: CBC with Diff; Complete Time: 17:34 03/23 16:33 Order name: Creatinine for Radiology; Complete Time: 17:34 03/23 16:33 Order name: Hepatic Function; Complete Time: 17:38 03/23 16:33 Order name: Lipase; Complete Time: 17:38 03/23 16:33 Order name: ETOH Level; Complete Time: 17:44 8 03/23 16:33 Order name: IV Saline Lock; Complete Time: 16:59 8 03/23 16:33 Order name: Labs collected and sent; Complete Time: 16:59 Administered Medications: 17:40 Drug: NS 0.9% 1000 ml Route: IV; Rate: 1000 ml; Site: left antecubital; ph 18:27 Follow up: Response: No adverse reaction; IV Status: Completed infusion ph 17:40 Drug: ProTONIX 40 mg Route: IVP; Site: left antecubital; ph 18:28 Follow up: Response: No adverse reaction ph 17:41 Drug: fentaNYL (PF) 50 mcg Route: IVP; Site: left antecubital; ph 18:28 Follow up: Response: No adverse reaction ph 17:41 Drug: Zofran 4 mg Route: IVP; Site: left antecubital; ph 18:28 Follow up: Response: No adverse reaction ph 18:12 CANCELLED (other intervention used): CarafATE 1 grams PO once snw 18:49 Drug: GI Cocktail without - (Maalox Suspension 30 ml, Lidocaine Liquid 2 % 15 ph ml) Route: PO; 18:49 Follow up: Response: No adverse reaction ph 18:50 Follow up: Response: No adverse reaction ph Disposition: 03/23/18 18:17 Discharged to Home. Impression: Alcohol abuse with intoxication, Alcohol-induced chronic pancreatitis. - Condition is Stable. - Discharge Instructions: Alcohol Intoxication, Alcohol Use Disorder, Alcohol Abuse and Nutrition, Chronic Pancreatitis. - Prescriptions for Protonix 40 mg Oral Tablet - take 1 tablet by ORAL route once daily; 30 tablet. - Medication Reconciliation Form, Thank You Letter, Antibiotic Education, Prescription Opioid Use form. - Follow up: Private Physician; When: 1 - 2 days; Reason: Recheck today's complaints, Continuance of care, Re-evaluation by your physician. Follow up: Emergency Department; When: As needed; Reason: Worsening of condition. Addendum: 03/31/2018 11:28 Co-signature as Attending Physician, lAexandru Chan MD I agree with the assessment and c holden plan of care. Signatures: Dispatcher [employer] Alexandru Fan MD MD cha Therrien, Shelly, RETAIL SALES CLERK-C RETAIL SALES CLERK-Rachid Salazar PA PA jr8 Vicky Long RN RN ph Corrections: (The following items were deleted from the chart) 03/23 18:12 18:12 CarafATE 1 grams PO once ordered. kassandra cannon 19:03 18:17 03/23/2018 18:17 Discharged to Home. Impression: Alcohol abuse with intoxication; ph Alcohol-induced chronic pancreatitis. Condition is Stable. Forms are Medication Reconciliation Form, Thank You Letter, Antibiotic Education, Prescription Opioid Use. Follow up: Private Physician; When: 1 - 2 days; Reason: Recheck today's complaints, Continuance of care, Re-evaluation by your physician. Follow up: Emergency Department; When: As needed; Reason: Worsening of condition. kassandra
[2018-03-23] MEDS ORDERED: LIDOCAINE VISCOUS 2% SOLN 15 ML UDC ONE (18:44)
[2018-03-23] MEDS ORDERED: MAGNE/ALUM HYDROXD 30 ML UCUP ONE (18:44)
[2018-03-23 20:34] VITALS: BP 150/89; TEMP 97.8; O2SAT 100
== END 2018-03-23 19:03 | disposition home or self-care (01) ==
LOC: ER 16:46
DX: K86.0 Alcohol-induced chronic pancreatitis (principal); F10.129 Alcohol abuse with intoxication, unspecified; F17.210 Nicotine dependence, cigarettes, uncomplicated
CPT/HCPCS: 36415; 80048; 80076; 80320; 83690; 85025; 96361; 96374; 96375; 99284; C9113; J2405; J3010; J7030

== ENCOUNTER 2018-03-24 17:15 | Emergency (ER) | payer SELFPAY ==
--- OUTSIDE RECORDS SUMMARY | 2018-03-24 17:18 | XMS REPORT | Clinical Summary ---
:1980 Author Organization [facility] Address [address] [place] [address] Care Team Providers Name Role Phone Unavailable [...] Date Type Specialty Care Team Description 09/14/2017 [facility] Internal Zaida Martinez MD Alcohol abuse (Primary Dx); - Encounter Medicine Yahaira, Cystic mass of pancreas; 09/19/2017 Dario Pancreatic pseudocyst/cyst; MD Tavares Hemorrhagic pancreatitis Vanda Norton MD Shiekh Sroujieh, Mona Ahmad, MD 09/08/2017 Anesthesia Event Gastroenterology Shikha Motley MD 09/08/2017 Surgery Gastroenterology Bessy Hernandez UPPER ENDOSCOPY MD Fredi 09/01/2017 Orders Only General Internal Medicine 08/31/2017 [facility] Alcohol abuse; - Encounter MD Adriana Cystic mass of pancreas; 09/09/2017 [place], History of DVT (deep vein thrombosis); Caden-Dannie Alcohol-induced acute pancreatitis without infection or necrosis; MD Nayely Smoker; Larry Rodriguez Portal vein thrombosis MD Connor Bishop Sahar, MD Neela, Nazia Huerta MD 05/19/2017 Anesthesia Event Gastroenterology Dorota Cortes MD 05/13/2017 [facility] Internal Ulysses Garcia, Alcohol-induced acute pancreatitis, unspecified complication status; - Encounter Medicine Alcohol abuse; 05/20/2017 Rafaela Samson, Cystic mass of pancreas; Smoker; Diomedes Alvarado Thrombocytosis (HCC); MD Lul Alcohol-induced acute pancreatitis without infection or necrosis; Smoking after 03/23/2017 Family History Medical History Relation Name Comments [...] PROCEDURE - 05/22/2017 12:43 ENDOSCOPY SCAN PM PROGRAM SUPPORT SPECIALIST COMPREHENSIVE Routine 05/19/2017 12:54 Results for this METABOLIC PANEL PM PROGRAM SUPPORT SPECIALIST procedure are in the results section. COMPREHENSIVE Routine 05/17/2017 4:26 Results for this METABOLIC PANEL AM PROGRAM SUPPORT SPECIALIST procedure are in the results section. CBC (HEMOGRAM ONLY) Routine 05/17/2017 4:26 Results for this AM PROGRAM SUPPORT SPECIALIST procedure are in the results section. CBC W/PLT COUNT & AUTO CHRIS 05/16/2017 11:05 Results for this DIFFERENTIAL AM PROGRAM SUPPORT SPECIALIST procedure are in the results section. CBC W/PLT COUNT & AUTO CHRIS 05/16/2017 11:05 Results for this DIFFERENTIAL AM PROGRAM SUPPORT SPECIALIST procedure are in the results section. HEPATIC FUNCTION PANEL CHRIS 05/16/2017 10:54 Results for this AM PROGRAM SUPPORT SPECIALIST procedure are in the results section. BASIC METABOLIC PANEL Routine 05/16/2017 4:48 Results for this (7) AM PROGRAM SUPPORT SPECIALIST procedure are in the results section. CBC (HEMOGRAM ONLY) Routine 05/15/2017 3:58 Results for this AM PROGRAM SUPPORT SPECIALIST procedure are in the results section. BASIC METABOLIC PANEL Routine 05/15/2017 3:58 Results for this (7) AM PROGRAM SUPPORT SPECIALIST procedure are in the results section. LIPASE Routine 05/14/2017 4:08 Results for this AM PROGRAM SUPPORT SPECIALIST procedure are in the results section. CBC (HEMOGRAM ONLY) Routine 05/14/2017 4:08 Results for this AM PROGRAM SUPPORT SPECIALIST procedure are in the results section. LIPID PANEL Routine 05/14/2017 4:08 Results for this AM PROGRAM SUPPORT SPECIALIST procedure are in the results section. HEPATIC FUNCTION PANEL Routine 05/14/2017 4:08 Results for this AM PROGRAM SUPPORT SPECIALIST procedure are in the results section. BASIC METABOLIC PANEL Routine 05/14/2017 4:08 Results for this (7) AM PROGRAM SUPPORT SPECIALIST procedure are in the results section. after 03/23/2017 Results Calcium, Ionized (09/19/2017 6:02 AM CDT)Only the most recent of3 resultswithin the time period is included. Calcium, Ion 1.11 (L) 1.12 - 1.27 mmol/L [facility] pH, Blood 7.40 [facility] Specimen Blood - Line, Venous Performing Organization Address [facility] Phone Number [address] [address] [phone] [place] Phosphorus (09/19/2017 6:02 AM CDT)Only the most recent of10 resultswithin the time period is included. Phosphorus 3.0 2.3 - 4.7 mg/dL [facility] Specimen Blood - Line, Venous Performing Organization Address [facility] Phone Number [address] [address] [phone] CENTER Magnesium (09/19/2017 6:02 AM CDT)Only the most recent of10 resultswithin the time period is included. Magnesium 2.0 1.6 - 2.6 mg/dL [facility] Specimen Blood - Line, Venous Performing Organization Address [facility] Phone Number [address] [address] [phone] CENTER Basic Metabolic Panel (09/19/2017 6:02 AM CDT)Only the most recent of18 resultswithin the time period is included. Sodium 138 136 - 145 meq/L [facility] Potassium 3.8 3.5 - 5.1 meq/L [facility] Chloride 109 (H) 98 - 107 meq/L [facility] CO2 22 22 - 29 meq/L [facility] BUN 10 7 - 21 mg/dL [facility] Creatinine 0.53 (L) 0.57 - 1.25 mg/dL [facility] Glucose 88 70 - 105 mg/dL [facility] Calcium 8.5 8.4 - 10.2 mg/dL [facility] EGFR 174Comment: ESTIMATED GFR IS mL/min/1.73 sq m [facility] NOT ACCURATE CREATININE [facility] CLEARANCE IN PREDICTING GLOMERULAR FILTRATION RATE. ESTIMATED GFR IS NOT APPLICABLE FOR DIALYSIS PATIENTS. Specimen Blood - Line, Venous Performing Organization Address City/State/Zipcode Phone Number [facility] [address] [place] [address] [phone] CENTER CBC with platelet count + automated diff (09/17/2017 3:54 AM CDT)Only the most recent of12 resultswithin the time period is included. WBC 10.1 3.5 - 10.5 K/L [facility] RBC 4.16 (L) 4.63 - 6.08 M/L [facility] Hemoglobin 12.6 (L) 13.7 - 17.5 GM/DL [facility] Hematocrit 37.3 (L) 40.1 - 51.0 % [facility] MCV 89.7 79.0 - 92.2 fL [facility] MCH 30.3 25.7 - 32.2 pg [facility] MCHC 33.8 32.3 - 36.5 GM/DL [facility] RDW 14.0 11.6 - 14.4 % [facility] Platelets 541 (H) 150 - 450 K/CU MM [facility] MPV 9.1 (L) 9.4 - 12.4 fL [facility] nRBC 0 0 - 0 /100 WBC [facility] % Neutros 66 % [facility] % Lymphs 20 % [facility] % Monos 10 % [facility] % Eos 3 % [facility] % Baso 1 % [facility] # Neutros 6.65 (H) 1.78 - 5.38 K/L [facility] # Lymphs 2.05 1.32 - 3.57 K/L [facility] # Monos 1.03 (H) 0.30 - 0.82 K/L [facility] # Eos 0.26 0.04 - 0.54 K/L [facility] # Baso 0.10 (H) 0.01 - 0.08 K/L [facility] Immature Granulocytes-Relative 0 0 - 1 % [facility] Specimen Blood - Line, Venous Performing Organization Address City/State/Zipcode Phone Number [facility] [address] [place] [address] CENTER US abdominal with doppler (09/17/2017 3:00 AM CDT) Narrative Performed At FINAL REPORT [facility] Comparison exam: Right upper quadrant ultrasound 09/01/2017. [...] MD Report Verified Date/Time:09/17/2017 04:01:12 [place] Location: [facility] C013X Ortho Consult Reading Room Procedure [...] Report Verified Date/Time: 09/17/2017 04:01:12 [place] Location: [facility] C013X Ortho Consult Reading Room Performing Organization Address City/State/Zipcode Phone Number [facility] IR Embolization Arterial (09/16/2017 6:00 PM CDT) Narrative Performed At FINAL REPORT [facility] Mesenteric angiogram and embolization History: 37-year-old male with hemorrhagic pancreatic pseudocyst. Modality: Ultrasound and fluoroscopy. Sedation: Moderate sedation was administered. 2.5 mg of Versed and 125 mcg of fentanyl IV was used for moderate sedation monitored under my direction. Total intra-service time of sedation [id number]. The patient's vital signs were monitored throughout the procedure and recorded in the patient's medical record by the nurse. Anesthesia:Two percent Lidocaine without epinephrine. Approach:Right common femoral artery. Estimated blood loss:< 5 cc. Specimen: None. roller operator: Michael Ortega MD. Solutions Market Consultant: None.. Fluoroscopy Time: 31.7 min. Reference Air [...] over 0.035 Bentson wire for a 5 Tongan by 10 cm vascular sheath. A 5 Tongan Sutton B catheter was used to select the celiac trunk and SMA for multiple DSA runs. The Sutton catheter was then remanipulated into the celiac trunk. Next, using a 2.4 Tongan microcatheter and 0.016 inch microwire, the gastroduodenal artery was cannulated. Subsequently, the catheter was manipulated into the feeding branch supplying the abnormal area of hyperemia/vessel irregularity. From this location, embolization was performed using Interlock microcoils. The microcatheter was retracted into the GDA proximally and postdilatation DSA was performed. Next, the Sutton base catheter was manipulated into the SMA. Using a 2. Tongan directional microcatheter and 0.014 inch microwire, the [...] MD Report Verified Date/Time:09/20/2017 16:25:06 Reading Location: [place] [address] Angio Body Reading Room Procedure Note Interface, [...] blood loss: < 5 cc. Specimen: None. roller operator: Michael Ortega MD. Solutions Market Consultant: None.. Fluoroscopy Time: 31.7 min. Reference Air [...] over 0.035 Bentson wire for a 5 Tongan by 10 cm vascular sheath. A 5 Tongan Sutton B catheter was used to select the celiac trunk and SMA for multiple DSA runs. The Sutton catheter was then remanipulated into the celiac trunk. Next, using a 2.4 Tongan microcatheter and 0.016 inch microwire, the gastroduodenal artery was cannulated. Subsequently, the catheter was manipulated into the feeding branch supplying the abnormal area of hyperemia/vessel irregularity. From this location, embolization was performed using Interlock microcoils. The microcatheter was retracted into the GDA proximally and postdilatation DSA was performed. Next, the Sutton base catheter was manipulated into the SMA. Using a 2. Tongan directional microcatheter and 0.014 inch microwire, the [...] Report Verified Date/Time: 09/20/2017 16:25:06 Reading Location: [place] [address] Angio Body Reading Room Performing Organization Address City/[facility]/Zipcode Phone Number GE RIS C-Reactive Protein (09/16/2017 12:32 PM CDT)Only the most recent of2 resultswithin the time period is included. CRP 0.97 (H) 0.00 - 0.50 mg/dL [facility] Specimen Blood - Central Venous Line Performing Organization Address City/State/Zipcode Phone Number [facility] [address] [place] [address] CENTER PT/aPTT (09/16/2017 10:54 AM CDT) Protime 16.2 (H) 11.7 - 14.7 seconds [facility] INR 1.3 <=5.9 [facility] PTT 30.2 22.5 - 36.0 seconds [facility] Specimen Blood - Central Venous Line Narrative Performed At [facility] RECOMMENDED COUMADIN/WARFARIN INR THERAPY RANGES STANDARD DOSE: 2.0 - 3.0 Includes: PROPHYLAXIS for venous thrombosis, systemic embolization; TREATMENT for venous thrombosis and/or pulmonary embolus. HIGH RISK: Target INR is 2.5-3.5 for patients with mechanical heart valves. Performing Organization Address City/[facility] Phone Number [address] [address] [place] Triglycerides (09/16/2017 4:20 AM CDT) Triglycerides 78 mg/dL [facility] Specimen Blood - Line, Venous Narrative Performed At [facility] TRIGLYCERIDE REFERENCE RANGE Low Risk<150 Borderline Risk 150-199 High [id number] Very High Risk >=500 Performing Organization Address [facility] Phone Number [address] [address] CENTER Lipase (09/16/2017 4:20 AM CDT)Only the most recent of5 resultswithin the time period is included. Lipase 114 (H) 8 - 78 U/L [facility] Specimen Blood - Line, Venous Performing Organization Address [facility] Phone Number [address] [address] [phone] [place] Hepatic function panel (09/16/2017 4:20 AM CDT)Only the most recent of6 resultswithin the time period is included. Protein, Total 6.5 6.0 - 8.3 gm/dL [facility] Albumin 3.7 3.5 - 5.0 g/dL [facility] Total Bilirubin 0.3 0.2 - 1.2 mg/dL [facility] Bilirubin, Direct 0.1 0.1 - 0.5 mg/dL [facility] Alkaline Phosphatase 79 40 - 150 U/L [facility] AST 14 5 - 34 U/L [facility] ALT 9 6 - 55 U/L [facility] Specimen Blood - Line, Venous Performing Organization Address City/State/Zipcode Phone Number [facility] [address] [place] [address] CENTER XR chest 1 view portable / bedside (09/15/2017 7:43 PM CDT) Narrative Performed At FINAL REPORT [facility] History: PICC line placement. Comparison: None. Findings: 2 frontal views of the chest are submitted. A left PICC line tip overlies the SVC. The cardiomediastinal contours are unremarkable. There is no focal consolidation, pneumothorax, large pleural effusion or evidence of overt pulmonary edema. There is no acute bony abnormality. Signed: George Keys MD Report Verified Date/Time:09/15/2017 19:53:01 Reading Location: [address] Reading Room Procedure Note Interface, External [...] Verified Date/Time: 09/15/2017 19:53:01 Reading Location: [address] Reading Room Performing Organization Address City/State/Zipcode Phone Number [facility] PERIPHERAL VASCULAR REPORT - SCAN (09/15/2017 5:20 [...] DVT Study [facility] Demographics Patient NameANKIT ROSALES Date of Study09/15/2017 37 Visit [id number] nder Male of Birth1980 Number Referring Julissa AlfonsoNancy, Room [id number] Physician Human Resource Adviser David Chan. Interpreting Prema Gabriel RVT, Greg [...] of Study 09/15/2017 Age 37 Visit Number [id number] Gender Male Date of 1980 Number Referring Julissa Arguelles, Room Number 2161 Physician Human Resource Adviser David Chan. Interpreting Prema Gabriel, T, [facility]S Physician , RPVI Procedure Type of Study: [...] Lab [facility] [address] [address] Enrique Holliday MD, PhD, GIDEON Performing Organization Address [facility] Phone Number [place] [address] [place] [address] Peripheral Blood Smear - Path Review (09/14/2017 4:37 AM CDT) Pathologist Review Thrombocytosis. No [facility] circulating blasts or [facility] increased schistocytes. Clinical follow up recommended. Pathologist: Enoch Saba, [facility] Miladis(electronic signature) [facility] Specimen Blood Performing Organization Address [facility] Phone Number [facility] [address] [place] [address] [phone] CENTER Vitamin B12 and Folate (09/14/2017 4:37 AM CDT) Vitamin B12 527 213 - 816 pg/mL [facility] Folate 12.3 >=7.0 ng/mL [facility] Specimen Blood Performing Organization Address City/[facility] Phone Number [facility] [address] [place] [address] CENTER RHYTHM STRIP - SCAN (09/10/2017 10:40 AM CDT) Narrative Performed At aPTT (09/09/2017 9:37 AM CDT)Only the most recent of9 resultswithin the time period is included. PTT 44.5 (H) 22.5 - 36.[address] [facility] Specimen Blood Performing Organization Address City/State/Zipcode Phone Number [facility] [address] [place] [address] [phone] CENTER REPORT OF PROCEDURE - ENDOSCOPY URL (09/08/2017 5:47 PM CDT) Narrative Performed At FINE NEEDLE ASPIRATE (FNA) REQUEST (09/08/2017 5:43 PM CDT) Cytology See Separate Report [facility] Specimen Fine Needle Aspirate - Pancreas Performing Organization Address City/State/Zipcode Phone Number [facility] [address] [place] [address] [phone] CENTER Fine Needle Aspirate by Clinician (09/08/2017 5:43 PM CDT) Case Report Medical Cytology Report Case: [id number] [facility] Authorizing Provider:Bessy Hernandez MDCollected: 09/08/[address] [facility] Ordering Location: [address] Received: 09/08/2017 1814 Service Pathologist: Mir Anthony MD Specimen:Pancreas DIAGNOSIS PANCREAS HEAD CYSTIC LESION FNA BY CLINICIAN (CYTOSPINS AND CELL BLOCK OF ASPIRATE): [facility] - NO MALIGNANT CELLS IDENTIFIED [facility] - The mucin stain shows focal weak staining Signing Pathologist Direct Phone Line: [phone] COMMENT The cell block shows [facility] non-inflammed pancreatic [facility] acinar tissue. CPT Code(s) 36311, 93824, 29546 [facility] CLINICAL DATA (4.9 X 4.8 cm) Cystic [facility] lesion in the pancreatic [facility] head SPECIMEN SOURCE PANCREAS HEAD CYSTIC [facility] LESION FNA [facility] GROSS DESCRIPTION 25 mls in cytorich red; 4 cytospins, 1 mucin stain, cell block [facility] Collected: [id number] [facility] Received: [id number] Technical component was [facility] performed at Center, Department of [facility] Pathology, [address] [place] [phone], Professional component [facility] performed at Center, Department of [facility] Pathology, [address] [place] [address], Specimen Fine Needle Aspirate - Pancreas Narrative Performed At Performing Organization Address City/State/Zipcode Phone Number [facility] [address] [place], [place] [id number] CENTER CT abd/pelvis - pancreas evaluation (09/04/2017 12:20 AM CDT) Narrative Performed At FINAL REPORT [facility] CT, ABDOMEN - PELVIS, PANCREAS EVALUATION INDICATION: [...] Report Verified Date/Time:09/04/2017 00:22:52 Reading Location: [address] Reading Room Procedure Note Interface, External [...] Verified Date/Time: 09/04/2017 00:22:52 Reading Location: [address] Reading Room Performing Organization Address City/State/Zipcode Phone Number [facility] POC-Glucose meter (09/02/2017 7:29 AM CDT)Only the most recent of2 resultswithin the time period is included. POC-Glucose Meter 140 (H)Comment: TESTED AT 70 - 110 mg/dL [facility] [address] [facility] [address] Specimen Blood Performing Organization Address [facility] Phone Number [address] [phone] CENTER ECG 12 lead (09/01/2017 6:18 PM CDT) Narrative Performed At Ventricular Rate 77 BPM GE MUSE Atrial Rate 77 BPM P-R Interval 162 ms QRS Duration 98 ms Q-T Interval 404 ms QTC Calculation(Bazett) 457 ms P [place] -8 degrees R [place] 30 degrees T [place] -1 degrees Normal sinus rhythm RSR' or [...] 404 ms QTC Calculation(Bazett) 457 ms P [place] -8 degrees R [place] 30 degrees T [place] -1 degrees Normal sinus rhythm RSR' or QR pattern in V1 suggests right ventricular conduction delay Cannot rule out Anterior infarct , age undetermined Abnormal ECG No previous ECGs available Confirmed by MD [place] ([id number]) on 09/02/2017 2:25:25 PM Performing Organization Address City/[facility] Phone Number [facility] US abdomen limited (09/01/2017 5:23 AM CDT) Narrative Performed At FINAL REPORT [facility] INDICATION: 37-year-old male with abdominal pain and [...] MD Report Verified Date/Time:09/01/2017 09:53:12 Reading Location: [address] Ultrasound Reading Room Procedure Note Interface, [...] Report Verified Date/Time: 09/01/2017 09:53:12 Reading Location: [address] Ultrasound Reading Room Performing Organization Address City/State/Zipcode Phone Number GE RIS TSH/Free T4 If Indicated (09/01/2017 3:12 AM CDT) TSH 0.36 0.35 - 4.94 uIU/mL [facility] Specimen Blood - Arm, Left Performing Organization Address [facility] Phone Number [address] [address] CENTER Troponin I (09/01/2017 3:12 AM CDT) Troponin I <0.01 0.00 - 0.03 ng/mL [facility] Specimen Blood - Arm, Left Narrative Performed At [facility] Troponin I (TnI) levels must be interpreted [...] disease, and persistent tachyarrhythmia. Performing Organization Address [facility] Phone Number [address] [address] [phone] CENTER Sedimentation rate (09/01/2017 3:12 AM CDT) Sed Rate 3 0 - 15 mm/HR [facility] Specimen Blood - Arm, Left Performing Organization Address [facility] Phone Number [address] [address] [phone] CENTER Hemoglobin A1c (09/01/2017 3:12 AM CDT) Hemoglobin A1C 4.7 4.3 - 6.1 % [facility] Specimen Blood - Arm, Left Performing Organization Address [facility] Phone Number [address] [address] [phone] CENTER Creatine Kinase (CK), Total and MB (09/01/2017 3:12 AM CDT) Total CK 29 29 - 200 U/L [facility] CK-MB 0.4 0.0 - 6.6 ng/mL [facility] MB Relative Index 1.4 % [facility] Specimen Blood - Arm, Left Narrative Performed At CK-MB Reference Range: [facility] <6.7Normal 6.7-10.0Borderline >10.0 Abnormal Performing Organization Address City/[facility] Phone Number [address] [address] [phone] [place] Amylase (09/01/2017 3:12 AM CDT) Amylase 383 (H) 25 - 125 U/L [facility] Specimen Blood - Arm, Left Performing Organization Address [facility] Phone Number [address] [address] [phone] [place] Lipid panel (09/01/2017 3:12 AM CDT)Only the most recent of2 resultswithin the time period is included. Triglycerides 76 mg/dL [facility] Cholesterol 118 mg/dL [facility] HDL 37 mg/dL [facility] LDL Calculated 66 mg/dL [facility] Specimen Blood - Arm, Left Narrative Performed At [facility] Triglyceride Reference Range: Low Risk <150 [id number] High Risk 200-499 Very High Risk>=500 Cholesterol Reference Range: Low Risk <200 [id number] High Risk>240 HDL Cholesterol Reference Range: Low Risk >=60 High Risk <40 LDL Cholesterol Reference Range: Optimal<100 Near [id number] Very High >=190 Performing Organization Address City/[facility] Phone Number [address] [address] [phone] [place] Blood culture (09/01/2017 3:11 AM CDT)Only the most recent of2 resultswithin the time period is included. Result No growth in 5 days [facility] Specimen Blood - Arm, Right Performing Organization Address City/State/Zipcode Phone Number [facility] [address] [place] [address] CENTER EKG-SCANNED (05/22/2017 12:43 PM PROGRAM SUPPORT SPECIALIST) Narrative Performed At Comprehensive metabolic panel (05/19/2017 12:54 PM PROGRAM SUPPORT SPECIALIST)Only the most recent of2 resultswithin the time period is included. Protein, Total 7.8 6.0 - 8.3 gm/dL [facility] Albumin 3.9 3.5 - 5.0 g/dL [facility] Alkaline Phosphatase 62 40 - 150 U/L [facility] Total Bilirubin 0.3 0.2 - 1.2 mg/dL [facility] Sodium 139 136 - 145 meq/L [facility] Potassium 4.2 3.5 - 5.1 meq/L [facility] Chloride 104 98 - 107 meq/L [facility] CO2 26 22 - 29 meq/L [facility] BUN 9 7 - 21 mg/dL [facility] Creatinine 0.64 0.57 - 1.25 mg/dL [facility] Glucose 78 70 - 105 mg/dL [facility] Calcium 9.5 8.4 - 10.2 mg/dL [facility] AST 18 5 - 34 U/L [facility] ALT 8 6 - 55 U/L [facility] EGFR 141Comment: ESTIMATED mL/min/1.[address] [facility] GFR IS NOT ACCURATE [facility] CREATININE CLEARANCE IN PREDICTING GLOMERULAR FILTRATION RATE. ESTIMATED GFR IS NOT APPLICABLE FOR DIALYSIS PATIENTS. Specimen Blood Performing Organization Address City/[facility] Facility[facility] Phone Number [facility] [address] [place] [address] [phone] [place] CBC (Hemogram only) (05/17/2017 4:26 AM PROGRAM SUPPORT SPECIALIST)Only the most recent of3 resultswithin the time period is included. WBC 6.4 3.5 - 10.5 K/L [facility] RBC 3.84 (L) 4.63 - 6.08 M/L [facility] Hemoglobin 11.5 (L) 13.7 - 17.5 GM/DL [facility] Hematocrit 35.2 (L) 40.1 - 51.0 % [facility] MCV 91.7 79.0 - 92.2 fL [facility] MCH 29.9 25.7 - 32.2 pg [facility] MCHC 32.7 32.3 - 36.5 GM/DL [facility] RDW 14.1 11.6 - 14.4 % [facility] Platelets 434 150 - 450 K/CU MM [facility] MPV 9.4 9.4 - 12.4 fL [facility] nRBC 0 0 - 0 /100 WBC [facility] Specimen Blood - Arm, Right Performing Organization Address City/[facility]/Zipcode Phone Number [facility] [address] [place] [address] [place] after 03/23/2017 Advance Directives For more information, please contact:[address] [phone] Code Status Date Activated Date Inactivated Comments [...]
--- OUTSIDE RECORDS SUMMARY | 2018-03-24 17:20 | XMS REPORT ---
[...] End Status Dosage System Date Date Apixaban [facility] [address]-52 2.5 MG Orally Active not defined Tramadol HCl [facility] [id number] 50 MG Orally Active 1 tablet every 6 hrs as needed Results No Known Results Summary Purpose eClinicalWorks Submission
--- OUTSIDE RECORDS SUMMARY | 2018-03-24 17:20 | XMS REPORT ---
:1980 [facility] [address] [place] [address] Care Team Providers Name Role Phone VANI [...] WALLER, 2017-09-[address] at [facility] for FINAL REPORT PATIENT EXTENSIVE - 16:25:00 evidence of bleedCall with ID: [id number] ARTERIAL questions: [phone] or Mesenteric angiogram [facility] for and embolization exam:->Pancreaticoduodednal artery with intermittent [...] blood loss: < 5 cc. Specimen: None. centerless grinder set up operator: Michael Ortega MD. Derrick Boat Leverman: None.. Fluoroscopy Time: 31.7 min.Reference Air Kerma [...] over 0.035 Bentson wire for a 5 Faroese by 10 cm vascular sheath. A 5 Faroese Sutton B catheter was used to select the celiac trunk and SMA for multiple DSA runs. The Sutton catheter was then remanipulated into the celiac trunk. Next, using a 2.4 Faroese microcatheter and 0.016 inch microwire, the gastroduodenal artery was cannulated. Subsequently, the catheter was manipulated into the feeding branch supplying the abnormal area of hyperemia/vessel irregularity. From this location, embolization was performed using Interlock microcoils. The microcatheter was retracted into the GDA proximally and postdilatation DSA was performed. Next, the Sutton base catheter was manipulated into the SMA. Using a 2. Faroese directional microcatheter and 0.014 inch microwire, the [...] Ortegaort Verified Date/Time: 09/20/2017 16:25:06 Reading Location: [place] [address] Angio Body Reading Room IUM, IONIZED 2017-09-19 07:02:00 Test Item Value Reference Range Comments CALCIUM IONIZED (BEAKER) (test begz=482) 1.11 mmol/L 1.12-1.27 PH, BLOOD (BEAKER) (test ozkm=3343) 7.40 [id number] 06:35:00 Test Item Value Reference Range Comments PHOSPHORUS (BEAKER) (test hdsq=965) 3.0 mg/dL 2.3-4.7 [id number] 06:35:00 Test Item Value Reference Range Comments MAGNESIUM (BEAKER) (test fjiq=851) 2.0 mg/dL 1.6-2.6 BASIC METABOLIC [id number] 06:35:00 Test Item Value Reference Range Comments SODIUM (BEAKER) (test 138 meq/L 136-145 khsz=412) POTASSIUM (BEAKER) (test 3.8 meq/L 3.5-5.1 qdnr=557) CHLORIDE (BEAKER) (test 109 meq/L 98-107 dtcc=113) CO2 (BEAKER) (test 22 meq/L 22-29 esph=067) BLOOD UREA NITROGEN 10 mg/dL 7-21 (BEAKER) (test qlab=178) CREATININE (BEAKER) (test 0.53 mg/dL 0.57-1.25 iijm=201) GLUCOSE RANDOM (BEAKER) 88 mg/dL 70-105 (test adgy=276) CALCIUM (BEAKER) (test 8.5 mg/dL 8.4-10.2 qxye=144) EGFR (BEAKER) (test 174 mL/min/1.73 sq m ESTIMATED GFR IS NOT ezuj=3924) ACCURATE CREATININE CLEARANCE IN PREDICTING GLOMERULAR FILTRATION RATE. ESTIMATED GFR IS NOT APPLICABLE FOR DIALYSIS PATIENTS. CALCIUM, [id number] 07:12:00 Test Item Value Reference Range Comments CALCIUM IONIZED (BEAKER) (test uqbz=841) 1.09 mmol/L 1.12-1.27 PH, BLOOD (BEAKER) (test ftey=0308) 7.41 [id number] 06:38:00 Test Item Value Reference Range Comments PHOSPHORUS (BEAKER) (test lenh=430) 3.0 mg/dL 2.3-4.7 [id number] 06:38:00 Test Item Value Reference Range Comments MAGNESIUM (BEAKER) (test rntt=297) 2.1 mg/dL 1.6-2.6 BASIC METABOLIC [id number] 06:38:00 Test Item Value Reference Range Comments SODIUM (BEAKER) (test 137 meq/L 136-145 zkyi=154) POTASSIUM (BEAKER) (test 3.7 meq/L 3.5-5.1 arbf=809) CHLORIDE (BEAKER) (test 108 meq/L 98-107 tbgc=912) CO2 (BEAKER) (test 22 meq/L 22-29 siex=576) BLOOD UREA NITROGEN 10 mg/dL 7-21 (BEAKER) (test adek=537) CREATININE (BEAKER) (test 0.52 mg/dL 0.57-1.25 egrt=837) GLUCOSE RANDOM (BEAKER) 99 mg/dL 70-105 (test aouu=596) CALCIUM (BEAKER) (test 8.6 mg/dL 8.4-10.2 vbdp=729) EGFR (BEAKER) (test 178 mL/min/1.73 sq m ESTIMATED GFR IS NOT ixam=7846) ACCURATE CREATININE CLEARANCE IN PREDICTING GLOMERULAR FILTRATION RATE. ESTIMATED GFR IS NOT APPLICABLE FOR DIALYSIS PATIENTS. CALCIUM, [id number] 04:45:00 Test Item Value Reference Range Comments CALCIUM IONIZED (BEAKER) (test wgjz=587) 1.14 mmol/L 1.12-1.27 PH, BLOOD (BEAKER) (test iwgn=3496) 7.39 [id number] 04:22:00 Test Item Value Reference Range Comments PHOSPHORUS (BEAKER) (test xzbh=426) 2.8 mg/dL 2.3-4.7 [id number] 04:22:00 Test Item Value Reference Range Comments MAGNESIUM (BEAKER) (test olqe=593) 1.9 mg/dL 1.6-2.6 BASIC METABOLIC [id number] 04:22:00 Test Item Value Reference Range Comments SODIUM (BEAKER) (test 134 meq/L 136-145 ysqp=189) POTASSIUM (BEAKER) (test 3.3 meq/L 3.5-5.1 xyxz=767) CHLORIDE (BEAKER) (test 103 meq/L 98-107 riig=443) CO2 (BEAKER) (test 23 meq/L 22-29 oqdg=226) BLOOD UREA NITROGEN 11 mg/dL 7-21 (BEAKER) (test liyr=702) CREATININE (BEAKER) (test 0.55 mg/dL 0.57-1.25 tcxf=461) GLUCOSE RANDOM (BEAKER) 112 mg/dL 70-105 (test vcwi=484) CALCIUM (BEAKER) (test 8.7 mg/dL 8.4-10.2 edag=857) EGFR (BEAKER) (test 167 mL/min/1.73 sq m ESTIMATED GFR IS NOT iscb=9568) ACCURATE CREATININE CLEARANCE IN PREDICTING GLOMERULAR FILTRATION RATE. ESTIMATED GFR IS NOT APPLICABLE FOR DIALYSIS PATIENTS. CBC W/PLT COUNT & AUTO [id number] 04:11:00 Test Item Value Reference Range Comments WHITE BLOOD CELL COUNT (BEAKER) (test ucca=113) 10.1 K/ L 3.5-10.5 RED BLOOD CELL COUNT (BEAKER) (test owff=727) 4.16 M/ L 4.63-6.08 HEMOGLOBIN (BEAKER) (test enpg=323) 12.6 GM/DL 13.7-17.5 HEMATOCRIT (BEAKER) (test kavz=410) 37.3 % 40.1-51.0 MEAN CORPUSCULAR VOLUME (BEAKER) (test oqqd=179) 89.7 fL 79.0-92.2 MEAN CORPUSCULAR HEMOGLOBIN (BEAKER) (test 30.3 pg 25.7-32.2 expk=837) MEAN CORPUSCULAR HEMOGLOBIN CONC (BEAKER) (test 33.8 GM/DL 32.3-36.5 vgcv=240) RED CELL DISTRIBUTION WIDTH (BEAKER) (test 14.0 % 11.6-14.4 fpmc=734) PLATELET COUNT (BEAKER) (test dwvc=971) 541 K/CU MM 150-450 MEAN PLATELET VOLUME (BEAKER) (test petz=163) 9.1 fL 9.4-12.4 NUCLEATED RED BLOOD CELLS (BEAKER) (test 0 /100 WBC 0-0 zkya=136) NEUTROPHILS RELATIVE PERCENT (BEAKER) (test 66 % xqjl=466) LYMPHOCYTES RELATIVE PERCENT (BEAKER) (test 20 % iokc=670) MONOCYTES RELATIVE PERCENT (BEAKER) (test 10 % yqam=997) EOSINOPHILS RELATIVE PERCENT (BEAKER) (test 3 % qlxi=051) BASOPHILS RELATIVE PERCENT (BEAKER) (test 1 % lixu=281) NEUTROPHILS ABSOLUTE COUNT (BEAKER) (test 6.65 K/ L 1.78-5.38 wkud=986) LYMPHOCYTES ABSOLUTE COUNT (BEAKER) (test 2.05 K/ L 1.32-3.57 bdoh=138) MONOCYTES ABSOLUTE COUNT (BEAKER) (test 1.03 K/ L 0.30-0.82 aurq=566) EOSINOPHILS ABSOLUTE COUNT (BEAKER) (test 0.26 K/ L 0.04-0.54 nhkj=556) BASOPHILS ABSOLUTE COUNT (BEAKER) (test 0.10 K/ L 0.01-0.08 ouci=538) IMMATURE GRANULOCYTES-RELATIVE PERCENT (BEAKER) 0 % 0-1 (test ayjp=9498) U/S, ABDOMINAL, WITH [id number] 04:01:00Reason for exam:->? hx of PV thrombosisFINAL [...] Date/Time: 09/17/2017 04:01:12 Reading Location: [facility] [id number] Ortho Consult Reading Room 04 :01 AMC-REACTIVE [id number] 13:17:00 Test Item Value Reference Range Comments C-REACTIVE PROTEIN (BEAKER) (test kqdb=011) 0.97 mg/dL 0.00-0.50 [id number] 11:12:00 Test Item Value Reference Range Comments PROTIME (BEAKER) (test mmqp=256) 16.2 seconds 11.7-14.7 INR (BEAKER) (test zzhy=806) 1.3 <=5.9 PARTIAL THROMBOPLASTIN TIME (BEAKER) (test 30.2 seconds 22.5-36.0 irbe=264) RECOMMENDED COUMADIN/WARFARIN INR THERAPY RANGESSTANDARD DOSE: 2.0 - 3.0 Includes: PROPHYLAXIS forvenous thrombosis, systemic embolization; TREATMENT for venous thrombosis and/or pulmonary embolus.HIGH RISK: Target INR is 2.5-3.5 for patients with mechanical heart valves.[id number] 05:28:00 Test Item Value Reference Range Comments TRIGLYCERIDES (BEAKER) (test eyfa=643) 78 mg/dL TRIGLYCERIDE REFERENCE RANGELow Risk <150Borderline Risk 150-199High Risk 200-499Very High Risk>=[id number] 05:28:00 Test Item Value Reference Range Comments MAGNESIUM (BEAKER) (test dzjc=543) 1.9 mg/dL 1.6-2.6 [id number] 05:28:00 Test Item Value Reference Range Comments PHOSPHORUS (BEAKER) (test qwsp=068) 3.5 mg/dL 2.3-4.7 BASIC METABOLIC [id number] 05:28:00 Test Item Value Reference Range Comments SODIUM (BEAKER) (test 134 meq/L 136-145 jqos=897) POTASSIUM (BEAKER) (test 3.6 meq/L 3.5-5.1 uykn=116) CHLORIDE (BEAKER) (test 105 meq/L 98-107 xsoz=777) CO2 (BEAKER) (test 23 meq/L 22-29 njyi=733) BLOOD UREA NITROGEN 13 mg/dL 7-21 (BEAKER) (test aziy=361) CREATININE (BEAKER) (test 0.56 mg/dL 0.57-1.25 efkl=720) GLUCOSE RANDOM (BEAKER) 83 mg/dL 70-105 (test myev=921) CALCIUM (BEAKER) (test 8.8 mg/dL 8.4-10.2 cskx=661) EGFR (BEAKER) (test 163 mL/min/1.73 sq m ESTIMATED GFR IS NOT jvhg=9822) ACCURATE CREATININE CLEARANCE IN PREDICTING GLOMERULAR FILTRATION RATE. ESTIMATED GFR IS NOT APPLICABLE FOR DIALYSIS PATIENTS. HEPATIC FUNCTION [id number] 05:28:00 Test Item Value Reference Range Comments TOTAL PROTEIN (BEAKER) (test lkkd=134) 6.5 gm/dL 6.0-8.3 ALBUMIN (BEAKER) (test dzwg=8805) 3.7 g/dL 3.5-5.0 BILIRUBIN TOTAL (BEAKER) (test ipnk=897) 0.3 mg/dL 0.2-1.2 BILIRUBIN DIRECT (BEAKER) (test wnos=795) 0.1 mg/dL 0.1-0.5 ALKALINE PHOSPHATASE (BEAKER) (test zjkg=405) 79 U/L 40-150 AST (SGOT) (BEAKER) (test kmsh=702) 14 U/L 5-34 ALT (SGPT) (BEAKER) (test gnwu=224) 9 U/L 6-55 [id number] 05:28:00 Test Item Value Reference Range Comments LIPASE (BEAKER) (test zotj=622) 114 U/L 8-78 CBC W/PLT COUNT & AUTO [id number] 05:03:00 Test Item Value Reference Range Comments WHITE BLOOD CELL COUNT (BEAKER) (test zqcl=922) 7.2 K/ L 3.5-10.5 RED BLOOD CELL COUNT (BEAKER) (test xzsa=290) 4.04 M/ L 4.63-6.08 HEMOGLOBIN (BEAKER) (test potk=675) 12.2 GM/DL 13.7-17.5 HEMATOCRIT (BEAKER) (test uell=364) 36.7 % 40.1-51.0 MEAN CORPUSCULAR VOLUME (BEAKER) (test wgai=693) 90.8 fL 79.0-92.2 MEAN CORPUSCULAR HEMOGLOBIN (BEAKER) (test 30.2 pg 25.7-32.2 ffkt=433) MEAN CORPUSCULAR HEMOGLOBIN CONC (BEAKER) (test 33.2 GM/DL 32.3-36.5 dzwa=633) RED CELL DISTRIBUTION WIDTH (BEAKER) (test 14.3 % 11.6-14.4 iist=393) PLATELET COUNT (BEAKER) (test rfcu=231) 561 K/CU MM 150-450 MEAN PLATELET VOLUME (BEAKER) (test vibd=105) 9.2 fL 9.4-12.4 NUCLEATED RED BLOOD CELLS (BEAKER) (test 0 /100 WBC 0-0 yuyh=932) NEUTROPHILS RELATIVE PERCENT (BEAKER) (test 51 % fawx=470) LYMPHOCYTES RELATIVE PERCENT (BEAKER) (test 32 % njwl=794) MONOCYTES RELATIVE PERCENT (BEAKER) (test 11 % ffey=386) EOSINOPHILS RELATIVE PERCENT (BEAKER) (test 4 % eyqk=622) BASOPHILS RELATIVE PERCENT (BEAKER) (test 2 % fkpt=342) NEUTROPHILS ABSOLUTE COUNT (BEAKER) (test 3.66 K/ L 1.78-5.38 newo=280) LYMPHOCYTES ABSOLUTE COUNT (BEAKER) (test 2.30 K/ L 1.32-3.57 gkwx=253) MONOCYTES ABSOLUTE COUNT (BEAKER) (test 0.77 K/ L 0.30-0.82 chst=879) EOSINOPHILS ABSOLUTE COUNT (BEAKER) (test 0.30 K/ L 0.04-0.54 lidl=932) BASOPHILS ABSOLUTE COUNT (BEAKER) (test 0.11 K/ L 0.01-0.08 ggtx=703) IMMATURE GRANULOCYTES-RELATIVE PERCENT (BEAKER) 1 % 0-1 (test yhru=2121) RAD, CHEST, 1 VIEW, NON [id number] 19:53:00Reason for exam:->check picc placement Should this [...] MDReport Verified Date/Time: 09/15/2017 19:53:01 Reading Location: [address] Reading Room Electronically signed by: GEORGE KEYS M.D. on 07:53 PMCBC W/PLT COUNT & AUTO [id number] 10:27:00 Test Item Value Reference Range Comments WHITE BLOOD CELL COUNT (BEAKER) (test sozw=984) 7.8 K/ L 3.5-10.5 RED BLOOD CELL COUNT (BEAKER) (test wuol=903) 3.95 M/ L 4.63-6.08 HEMOGLOBIN (BEAKER) (test wqgx=299) 12.0 GM/DL 13.7-17.5 HEMATOCRIT (BEAKER) (test rsdj=503) 35.9 % 40.1-51.0 MEAN CORPUSCULAR VOLUME (BEAKER) (test yzaf=490) 90.9 fL 79.0-92.2 MEAN CORPUSCULAR HEMOGLOBIN (BEAKER) (test 30.4 pg 25.7-32.2 xouf=008) MEAN CORPUSCULAR HEMOGLOBIN CONC (BEAKER) (test 33.4 GM/DL 32.3-36.5 fevx=571) RED CELL DISTRIBUTION WIDTH (BEAKER) (test 14.6 % 11.6-14.4 tqzo=895) PLATELET COUNT (BEAKER) (test wezc=715) 543 K/CU MM 150-450 MEAN PLATELET VOLUME (BEAKER) (test wzhz=738) 9.1 fL 9.4-12.4 NUCLEATED RED BLOOD CELLS (BEAKER) (test 0 /100 WBC 0-0 vpyi=235) NEUTROPHILS RELATIVE PERCENT (BEAKER) (test 59 % wjru=254) LYMPHOCYTES RELATIVE PERCENT (BEAKER) (test 27 % npsu=884) MONOCYTES RELATIVE PERCENT (BEAKER) (test 11 % ujpw=232) EOSINOPHILS RELATIVE PERCENT (BEAKER) (test 1 % qpby=357) BASOPHILS RELATIVE PERCENT (BEAKER) (test 1 % rckx=398) NEUTROPHILS ABSOLUTE COUNT (BEAKER) (test 4.56 K/ L 1.78-5.38 gviw=696) LYMPHOCYTES ABSOLUTE COUNT (BEAKER) (test 2.11 K/ L 1.32-3.57 jklo=522) MONOCYTES ABSOLUTE COUNT (BEAKER) (test 0.89 K/ L 0.30-0.82 ajcp=350) EOSINOPHILS ABSOLUTE COUNT (BEAKER) (test 0.11 K/ L 0.04-0.54 henu=555) BASOPHILS ABSOLUTE COUNT (BEAKER) (test 0.08 K/ L 0.01-0.08 ppzl=083) IMMATURE GRANULOCYTES-RELATIVE PERCENT (BEAKER) 0 % 0-1 (test yvuu=2319) PERIPHERAL BLOOD SMEAR - PATHOLOGIST [id number] 10:04:00 Test Item Value Reference Range Comments PERIPHERAL SMR REVIEW (BEAKER) Thrombocytosis. No circulating (test pgqs=7822) blasts or increased schistocytes. Clinical follow up recommended. [id number] (BEAKER) Enoch Saba (test iqrn=6952) Miladis(electronic signature) [id number] 06:02:00 Test Item Value Reference Range Comments PHOSPHORUS (BEAKER) (test iyzk=825) 3.3 mg/dL 2.3-4.7 [id number] 06:02:00 Test Item Value Reference Range Comments MAGNESIUM (BEAKER) (test ribi=875) 2.0 mg/dL 1.6-2.6 BASIC METABOLIC [id number] 06:02:00 Test Item Value Reference Range Comments SODIUM (BEAKER) (test 132 meq/L 136-145 efds=334) POTASSIUM (BEAKER) (test 3.7 meq/L 3.5-5.1 wjql=856) CHLORIDE (BEAKER) (test 102 meq/L 98-107 irlv=019) CO2 (BEAKER) (test 22 meq/L 22-29 odmc=750) BLOOD UREA NITROGEN 11 mg/dL 7-21 (BEAKER) (test kkjn=844) CREATININE (BEAKER) (test 0.52 mg/dL 0.57-1.25 obft=082) GLUCOSE RANDOM (BEAKER) 76 mg/dL 70-105 (test pvdc=855) CALCIUM (BEAKER) (test 9.4 mg/dL 8.4-10.2 mltj=280) EGFR (BEAKER) (test 178 mL/min/1.73 sq m ESTIMATED GFR IS NOT tzxz=7713) ACCURATE CREATININE CLEARANCE IN PREDICTING GLOMERULAR FILTRATION RATE. ESTIMATED GFR IS NOT APPLICABLE FOR DIALYSIS PATIENTS. VITAMIN B12 AND [id number] 12:22:00 Test Item Value Reference Range Comments VITAMIN B12 (BEAKER) (test tsof=229) 527 pg/mL 213-816 FOLATE (BEAKER) (test skch=856) 12.3 ng/mL >=7.0 [id number] 07:34:00 Test Item Value Reference Range Comments LIPASE (BEAKER) (test hofn=406) 1107 U/L 8-78 BASIC METABOLIC [id number] 07:32:00 Test Item Value Reference Range Comments SODIUM (BEAKER) (test 134 meq/L 136-145 oojs=205) POTASSIUM (BEAKER) (test 3.7 meq/L 3.5-5.1 sldl=850) CHLORIDE (BEAKER) (test 103 meq/L 98-107 giyz=210) CO2 (BEAKER) (test 20 meq/L 22-29 psce=964) BLOOD UREA NITROGEN 10 mg/dL 7-21 (BEAKER) (test czgj=315) CREATININE (BEAKER) (test 0.59 mg/dL 0.57-1.25 qmus=945) GLUCOSE RANDOM (BEAKER) 96 mg/dL 70-105 (test dopd=674) CALCIUM (BEAKER) (test 9.7 mg/dL 8.4-10.2 dnon=151) EGFR (BEAKER) (test 154 mL/min/1.73 sq m ESTIMATED GFR IS NOT owso=6509) ACCURATE CREATININE CLEARANCE IN PREDICTING GLOMERULAR FILTRATION RATE. ESTIMATED GFR IS NOT APPLICABLE FOR DIALYSIS PATIENTS. [id number] 07:32:00 Test Item Value Reference Range Comments MAGNESIUM (BEAKER) (test wygi=647) 1.9 mg/dL 1.6-2.6 [id number] 07:32:00 Test Item Value Reference Range Comments PHOSPHORUS (BEAKER) (test crgb=603) 3.4 mg/dL 2.3-4.7 CBC W/PLT COUNT & AUTO [id number] 06:44:00 Test Item Value Reference Range Comments WHITE BLOOD CELL COUNT (BEAKER) (test kgmj=865) 12.1 K/ L 3.5-10.5 RED BLOOD CELL COUNT (BEAKER) (test rzre=285) 4.34 M/ L 4.63-6.08 HEMOGLOBIN (BEAKER) (test cljl=848) 13.1 GM/DL 13.7-17.5 HEMATOCRIT (BEAKER) (test iiys=240) 39.2 % 40.1-51.0 MEAN CORPUSCULAR VOLUME (BEAKER) (test aoid=010) 90.3 fL 79.0-92.2 MEAN CORPUSCULAR HEMOGLOBIN (BEAKER) (test 30.2 pg 25.7-32.2 wwbz=044) MEAN CORPUSCULAR HEMOGLOBIN CONC (BEAKER) (test 33.4 GM/DL 32.3-36.5 ycpp=665) RED CELL DISTRIBUTION WIDTH (BEAKER) (test 14.9 % 11.6-14.4 ydgs=249) PLATELET COUNT (BEAKER) (test ytpv=545) 636 K/CU MM 150-450 MEAN PLATELET VOLUME (BEAKER) (test mdgt=978) 9.5 fL 9.4-12.4 NUCLEATED RED BLOOD CELLS (BEAKER) (test 0 /100 WBC 0-0 qszk=570) NEUTROPHILS RELATIVE PERCENT (BEAKER) (test 72 % jtba=038) LYMPHOCYTES RELATIVE PERCENT (BEAKER) (test 15 % wgfy=485) MONOCYTES RELATIVE PERCENT (BEAKER) (test 11 % oyxn=905) EOSINOPHILS RELATIVE PERCENT (BEAKER) (test 0 % dxex=177) BASOPHILS RELATIVE PERCENT (BEAKER) (test 0 % qgij=303) NEUTROPHILS ABSOLUTE COUNT (BEAKER) (test 8.72 K/ L 1.78-5.38 efoa=397) LYMPHOCYTES ABSOLUTE COUNT (BEAKER) (test 1.87 K/ L 1.32-3.57 kolc=712) MONOCYTES ABSOLUTE COUNT (BEAKER) (test 1.38 K/ L 0.30-0.82 sgjp=203) EOSINOPHILS ABSOLUTE COUNT (BEAKER) (test 0.02 K/ L 0.04-0.54 uhhm=883) BASOPHILS ABSOLUTE COUNT (BEAKER) (test 0.05 K/ L 0.01-0.08 xdru=383) IMMATURE GRANULOCYTES-RELATIVE PERCENT (BEAKER) 1 % 0-1 (test aqnb=7215) FINE NEEDLE ASPIRATION BY [id number] 13:21:00Medical Cytology Report Case: [id number] Authorizing Provider: Bessy Hernandez MD Collected: 2017 1743 Ordering Location: [address] Received : 09/08/2017 1814 Service Pathologist: Mir Anthony MD Specimen: Pancreas PANCREAS HEAD CYSTICLESION FNA BY CLINICIAN ( CYTOSPINS AND CELL BLOCK OF ASPIRATE): - NO MALIGNANT CELLS IDENTIFIED - The mucin stain shows focal weak staining Signing Pathologist Direct Phone Line : [phone] signed by Mir Anthony MD on 09/11/2017 at 1:21 PMThe cell block shows non-inflammed pancreatic acinar tissue.78252, 52266, 91709(4.9 X 4.8 cm) Cystic lesion in the pancreatic headPANCREAS HEAD CYSTIC LESION FNA25 mls in cytorich red; 4 cytospins, 1 mucin stain, cell blockCollected: [id number]: [id number] [facility] Hospital [facility], Department of Pathology, [address] [place] [id number], Tel [facility], [facility] of [facility]ology, [address] [place] [address], [id number] 10:07:00 Test Item Value Reference Range Comments PARTIAL THROMBOPLASTIN TIME (BEAKER) (test 44.5 seconds 22.5-36.0 qxml=459) BASIC METABOLIC [id number] 05:56:00 Test Item Value Reference Range Comments SODIUM (BEAKER) (test 138 meq/L 136-145 ddev=285) POTASSIUM (BEAKER) (test 3.7 meq/L 3.5-5.1 htxj=604) CHLORIDE (BEAKER) (test 105 meq/L 98-107 tdzr=127) CO2 (BEAKER) (test 25 meq/L 22-29 iyni=471) BLOOD UREA NITROGEN 7 mg/dL 7-21 (BEAKER) (test etop=705) CREATININE (BEAKER) (test 0.62 mg/dL 0.57-1.25 ueim=850) GLUCOSE RANDOM (BEAKER) 120 mg/dL 70-105 (test mmfy=836) CALCIUM (BEAKER) (test 8.7 mg/dL 8.4-10.2 eoqw=640) EGFR (BEAKER) (test 145 mL/min/1.73 sq m ESTIMATED GFR IS NOT mavm=1449) ACCURATE CREATININE CLEARANCE IN PREDICTING GLOMERULAR FILTRATION RATE. ESTIMATED GFR IS NOT APPLICABLE FOR DIALYSIS PATIENTS. CBC W/PLT COUNT & AUTO [id number] 05:42:00 Test Item Value Reference Range Comments WHITE BLOOD CELL COUNT (BEAKER) (test dfpz=635) 4.6 K/ L 3.5-10.5 RED BLOOD CELL COUNT (BEAKER) (test deio=745) 3.83 M/ L 4.63-6.08 HEMOGLOBIN (BEAKER) (test utiy=999) 11.7 GM/DL 13.7-17.5 HEMATOCRIT (BEAKER) (test likb=243) 34.7 % 40.1-51.0 MEAN CORPUSCULAR VOLUME (BEAKER) (test zdxi=321) 90.6 fL 79.0-92.2 MEAN CORPUSCULAR HEMOGLOBIN (BEAKER) (test 30.5 pg 25.7-32.2 erxu=617) MEAN CORPUSCULAR HEMOGLOBIN CONC (BEAKER) (test 33.7 GM/DL 32.3-36.5 kbrm=874) RED CELL DISTRIBUTION WIDTH (BEAKER) (test 14.3 % 11.6-14.4 vncs=730) PLATELET COUNT (BEAKER) (test bagx=344) 378 K/CU MM 150-450 MEAN PLATELET VOLUME (BEAKER) (test vtpx=605) 9.0 fL 9.4-12.4 NUCLEATED RED BLOOD CELLS (BEAKER) (test 0 /100 WBC 0-0 xtvk=642) NEUTROPHILS RELATIVE PERCENT (BEAKER) (test 39 % jibt=751) LYMPHOCYTES RELATIVE PERCENT (BEAKER) (test 43 % fway=968) MONOCYTES RELATIVE PERCENT (BEAKER) (test 12 % zdrd=019) EOSINOPHILS RELATIVE PERCENT (BEAKER) (test 5 % ugjo=332) BASOPHILS RELATIVE PERCENT (BEAKER) (test 1 % ojlc=165) NEUTROPHILS ABSOLUTE COUNT (BEAKER) (test 1.81 K/ L 1.78-5.38 triu=211) LYMPHOCYTES ABSOLUTE COUNT (BEAKER) (test 2.01 K/ L 1.32-3.57 cnui=436) MONOCYTES ABSOLUTE COUNT (BEAKER) (test 0.55 K/ L 0.30-0.82 hqnk=446) EOSINOPHILS ABSOLUTE COUNT (BEAKER) (test 0.21 K/ L 0.04-0.54 bduf=168) BASOPHILS ABSOLUTE COUNT (BEAKER) (test 0.05 K/ L 0.01-0.08 siko=550) IMMATURE GRANULOCYTES-RELATIVE PERCENT (BEAKER) 0 % 0-1 (test wcbd=9633) FINE NEEDLE ASPIRATE (FNA) [id number] 20:00:00 Test Item Value Reference Range Comments CYTOLOGY RESULT POINTER (BEAKER) (test See Separate Report icvd=3379) [id number] 12:16:00 Test Item Value Reference Range Comments PARTIAL THROMBOPLASTIN TIME (BEAKER) (test 84.6 seconds 22.5-36.0 fgnm=707) BASIC METABOLIC [id number] 05:21:00 Test Item Value Reference Range Comments SODIUM (BEAKER) (test 126 meq/L 136-145 xsse=487) POTASSIUM (BEAKER) (test 2.8 meq/L 3.5-5.1 czzc=701) CHLORIDE (BEAKER) (test 99 meq/L 98-107 yqen=076) CO2 (BEAKER) (test 20 meq/L 22-29 lnrp=139) BLOOD UREA NITROGEN 3 mg/dL 7-21 (BEAKER) (test natv=379) CREATININE (BEAKER) (test 0.44 mg/dL 0.57-1.25 hois=848) GLUCOSE RANDOM (BEAKER) 75 mg/dL 70-105 (test baqa=826) CALCIUM (BEAKER) (test 6.8 mg/dL 8.4-10.2 gxlr=474) EGFR (BEAKER) (test 216 mL/min/1.73 sq m ESTIMATED GFR IS NOT tkjj=8710) ACCURATE CREATININE CLEARANCE IN PREDICTING GLOMERULAR FILTRATION RATE. ESTIMATED GFR IS NOT APPLICABLE FOR DIALYSIS PATIENTS. [id number] 05:13:00 Test Item Value Reference Range Comments PARTIAL THROMBOPLASTIN TIME (BEAKER) (test 110.2 seconds 22.5-36.0 zcee=747) CBC W/PLT COUNT & AUTO [id number] 04:45:00 Test Item Value Reference Range Comments WHITE BLOOD CELL COUNT (BEAKER) (test oulj=805) 4.4 K/ L 3.5-10.5 RED BLOOD CELL COUNT (BEAKER) (test pdpx=608) 3.25 M/ L 4.63-6.08 HEMOGLOBIN (BEAKER) (test spjs=887) 10.1 GM/DL 13.7-17.5 HEMATOCRIT (BEAKER) (test vspm=989) 29.9 % 40.1-51.0 MEAN CORPUSCULAR VOLUME (BEAKER) (test uute=496) 92.0 fL 79.0-92.2 MEAN CORPUSCULAR HEMOGLOBIN (BEAKER) (test 31.1 pg 25.7-32.2 ydhp=461) MEAN CORPUSCULAR HEMOGLOBIN CONC (BEAKER) (test 33.8 GM/DL 32.3-36.5 pesb=943) RED CELL DISTRIBUTION WIDTH (BEAKER) (test 14.5 % 11.6-14.4 qhyh=390) PLATELET COUNT (BEAKER) (test xgsw=909) 297 K/CU MM 150-450 MEAN PLATELET VOLUME (BEAKER) (test sbmf=205) 9.1 fL 9.4-12.4 NUCLEATED RED BLOOD CELLS (BEAKER) (test 0 /100 WBC 0-0 iaxu=483) NEUTROPHILS RELATIVE PERCENT (BEAKER) (test 44 % jyls=904) LYMPHOCYTES RELATIVE PERCENT (BEAKER) (test 40 % yhqm=796) MONOCYTES RELATIVE PERCENT (BEAKER) (test 11 % vdeq=727) EOSINOPHILS RELATIVE PERCENT (BEAKER) (test 4 % gnsb=773) BASOPHILS RELATIVE PERCENT (BEAKER) (test 1 % xyys=142) NEUTROPHILS ABSOLUTE COUNT (BEAKER) (test 1.96 K/ L 1.78-5.38 odfe=971) LYMPHOCYTES ABSOLUTE COUNT (BEAKER) (test 1.77 K/ L 1.32-3.57 oqgn=802) MONOCYTES ABSOLUTE COUNT (BEAKER) (test 0.49 K/ L 0.30-0.82 ibbx=867) EOSINOPHILS ABSOLUTE COUNT (BEAKER) (test 0.16 K/ L 0.04-0.54 gzhp=485) BASOPHILS ABSOLUTE COUNT (BEAKER) (test 0.05 K/ L 0.01-0.08 nerm=567) IMMATURE GRANULOCYTES-RELATIVE PERCENT (BEAKER) 0 % 0-1 (test vact=3186) [id number] 21:32:00 Test Item Value Reference Range Comments PARTIAL THROMBOPLASTIN TIME (BEAKER) (test 118.1 seconds 22.5-36.0 yhvw=963) BASIC METABOLIC [id number] 14:23:00 Test Item Value Reference Range Comments SODIUM (BEAKER) (test 139 meq/L 136-145 lvrb=873) POTASSIUM (BEAKER) (test 3.6 meq/L 3.5-5.1 uhfs=897) CHLORIDE (BEAKER) (test 103 meq/L 98-107 couk=532) CO2 (BEAKER) (test 29 meq/L 22-29 axef=509) BLOOD UREA NITROGEN 3 mg/dL 7-21 (BEAKER) (test rktm=973) CREATININE (BEAKER) (test 0.54 mg/dL 0.57-1.25 ezdw=741) GLUCOSE RANDOM (BEAKER) 108 mg/dL 70-105 (test ouzu=484) CALCIUM (BEAKER) (test 8.6 mg/dL 8.4-10.2 nmxu=561) EGFR (BEAKER) (test 170 mL/min/1.73 sq m ESTIMATED GFR IS NOT qnfe=4923) ACCURATE CREATININE CLEARANCE IN PREDICTING GLOMERULAR FILTRATION RATE. ESTIMATED GFR IS NOT APPLICABLE FOR DIALYSIS PATIENTS. [id number] 14:06:00 Test Item Value Reference Range Comments PARTIAL THROMBOPLASTIN TIME (BEAKER) (test 66.8 seconds 22.5-36.0 evls=645) CBC W/PLT COUNT & AUTO [id number] 13:57:00 Test Item Value Reference Range Comments WHITE BLOOD CELL COUNT (BEAKER) (test uspj=089) 4.6 K/ L 3.5-10.5 RED BLOOD CELL COUNT (BEAKER) (test fnjl=052) 3.95 M/ L 4.63-6.08 HEMOGLOBIN (BEAKER) (test huao=685) 11.9 GM/DL 13.7-17.5 HEMATOCRIT (BEAKER) (test lkcc=153) 36.5 % 40.1-51.0 MEAN CORPUSCULAR VOLUME (BEAKER) (test nuuv=194) 92.4 fL 79.0-92.2 MEAN CORPUSCULAR HEMOGLOBIN (BEAKER) (test 30.1 pg 25.7-32.2 qncs=282) MEAN CORPUSCULAR HEMOGLOBIN CONC (BEAKER) (test 32.6 GM/DL 32.3-36.5 rxxd=166) RED CELL DISTRIBUTION WIDTH (BEAKER) (test 14.2 % 11.6-14.4 xwnx=852) PLATELET COUNT (BEAKER) (test goyv=380) 347 K/CU MM 150-450 MEAN PLATELET VOLUME (BEAKER) (test tvqy=532) 9.2 fL 9.4-12.4 NUCLEATED RED BLOOD CELLS (BEAKER) (test 0 /100 WBC 0-0 lbsk=701) NEUTROPHILS RELATIVE PERCENT (BEAKER) (test 44 % qzpe=788) LYMPHOCYTES RELATIVE PERCENT (BEAKER) (test 37 % wktg=004) MONOCYTES RELATIVE PERCENT (BEAKER) (test 13 % nwdl=689) EOSINOPHILS RELATIVE PERCENT (BEAKER) (test 5 % uimh=266) BASOPHILS RELATIVE PERCENT (BEAKER) (test 1 % leml=668) NEUTROPHILS ABSOLUTE COUNT (BEAKER) (test 1.99 K/ L 1.78-5.38 vffi=328) LYMPHOCYTES ABSOLUTE COUNT (BEAKER) (test 1.69 K/ L 1.32-3.57 tqsv=791) MONOCYTES ABSOLUTE COUNT (BEAKER) (test 0.61 K/ L 0.30-0.82 xvdg=538) EOSINOPHILS ABSOLUTE COUNT (BEAKER) (test 0.21 K/ L 0.04-0.54 hbup=822) BASOPHILS ABSOLUTE COUNT (BEAKER) (test 0.05 K/ L 0.01-0.08 gpdu=864) IMMATURE GRANULOCYTES-RELATIVE PERCENT (BEAKER) 0 % 0-1 (test fkkb=1789) BASIC METABOLIC [id number] 07:03:00 Test Item Value Reference Range Comments SODIUM (BEAKER) (test 140 meq/L 136-145 ukkf=499) POTASSIUM (BEAKER) (test 3.4 meq/L 3.5-5.1 udik=954) CHLORIDE (BEAKER) (test 100 meq/L 98-107 cseq=431) CO2 (BEAKER) (test 30 meq/L 22-29 atlk=778) BLOOD UREA NITROGEN 3 mg/dL 7-21 (BEAKER) (test ssaj=386) CREATININE (BEAKER) (test 0.56 mg/dL 0.57-1.25 vvyi=551) GLUCOSE RANDOM (BEAKER) 102 mg/dL 70-105 (test miyd=230) CALCIUM (BEAKER) (test 9.2 mg/dL 8.4-10.2 vzpz=203) EGFR (BEAKER) (test 163 mL/min/1.73 sq m ESTIMATED GFR IS NOT dsrj=8990) ACCURATE CREATININE CLEARANCE IN PREDICTING GLOMERULAR FILTRATION RATE. ESTIMATED GFR IS NOT APPLICABLE FOR DIALYSIS PATIENTS. [id number] 06:47:00 Test Item Value Reference Range Comments PARTIAL THROMBOPLASTIN TIME (BEAKER) (test 46.7 seconds 22.5-36.0 gkop=265) [id number] 00:50:00 Test Item Value Reference Range Comments PARTIAL THROMBOPLASTIN TIME (BEAKER) (test 53.5 seconds 22.5-36.0 dtyy=689) [id number] 17:34:00 Test Item Value Reference Range Comments PARTIAL THROMBOPLASTIN TIME (BEAKER) (test 45.8 seconds 22.5-36.0 uzqx=910) [id number] 08:32:00 Test Item Value Reference Range Comments PARTIAL THROMBOPLASTIN TIME (BEAKER) (test 38.7 seconds 22.5-36.0 czxm=791) Prior to initiating heparinBASIC METABOLIC [id number] 06:05:00 Test Item Value Reference Range Comments SODIUM (BEAKER) (test 136 meq/L 136-145 ampc=577) POTASSIUM (BEAKER) (test 3.3 meq/L 3.5-5.1 lloi=022) CHLORIDE (BEAKER) (test 102 meq/L 98-107 kble=977) CO2 (BEAKER) (test 26 meq/L 22-29 fapz=513) BLOOD UREA NITROGEN 2 mg/dL 7-21 (BEAKER) (test odcg=576) CREATININE (BEAKER) (test 0.55 mg/dL 0.57-1.25 icdl=474) GLUCOSE RANDOM (BEAKER) 124 mg/dL 70-105 (test ttdw=085) CALCIUM (BEAKER) (test 8.0 mg/dL 8.4-10.2 clhj=778) EGFR (BEAKER) (test 167 mL/min/1.73 sq m ESTIMATED GFR IS NOT brhu=7436) ACCURATE CREATININE CLEARANCE IN PREDICTING GLOMERULAR FILTRATION RATE. ESTIMATED GFR IS NOT APPLICABLE FOR DIALYSIS PATIENTS. BLOOD [id number] 06:00:00 Test Item Value Reference Range Comments CULTURE (BEAKER) (test spte=8821) No growth in 5 days BLOOD [id number] 06:00:00 Test Item Value Reference Range Comments CULTURE (BEAKER) (test hrea=1636) No growth in 5 days [id number] 03:55:00 Test Item Value Reference Range Comments PHOSPHORUS (BEAKER) (test ssac=526) 2.8 mg/dL 2.3-4.7 [id number] 03:55:00 Test Item Value Reference Range Comments MAGNESIUM (BEAKER) (test plrt=795) 1.3 mg/dL 1.6-2.6 BASIC METABOLIC [id number] 03:55:00 Test Item Value Reference Range Comments SODIUM (BEAKER) (test 137 meq/L 136-145 hkdb=878) POTASSIUM (BEAKER) (test 3.2 meq/L 3.5-5.1 jhnn=355) CHLORIDE (BEAKER) (test 103 meq/L 98-107 kkwd=351) CO2 (BEAKER) (test 22 meq/L 22-29 hhng=550) BLOOD UREA NITROGEN 3 mg/dL 7-21 (BEAKER) (test xzph=568) CREATININE (BEAKER) (test 0.51 mg/dL 0.57-1.25 kzoq=358) GLUCOSE RANDOM (BEAKER) 65 mg/dL 70-105 (test qcmk=802) CALCIUM (BEAKER) (test 8.0 mg/dL 8.4-10.2 dace=325) EGFR (BEAKER) (test 182 mL/min/1.73 sq m ESTIMATED GFR IS NOT nhsa=1354) ACCURATE CREATININE CLEARANCE IN PREDICTING GLOMERULAR FILTRATION RATE. ESTIMATED GFR IS NOT APPLICABLE FOR DIALYSIS PATIENTS. [id number] 03:55:00 Test Item Value Reference Range Comments LIPASE (BEAKER) (test yesk=436) 210 U/L 8-78 CBC W/PLT COUNT & AUTO [id number] 03:37:00 Test Item Value Reference Range Comments WHITE BLOOD CELL COUNT (BEAKER) (test tqut=478) 6.1 K/ L 3.5-10.5 RED BLOOD CELL COUNT (BEAKER) (test cmwe=091) 3.63 M/ L 4.63-6.08 HEMOGLOBIN (BEAKER) (test jety=064) 11.1 GM/DL 13.7-17.5 HEMATOCRIT (BEAKER) (test nhhn=426) 33.0 % 40.1-51.0 MEAN CORPUSCULAR VOLUME (BEAKER) (test ujob=844) 90.9 fL 79.0-92.2 MEAN CORPUSCULAR HEMOGLOBIN (BEAKER) (test 30.6 pg 25.7-32.2 vdcv=736) MEAN CORPUSCULAR HEMOGLOBIN CONC (BEAKER) (test 33.6 GM/DL 32.3-36.5 nfns=707) RED CELL DISTRIBUTION WIDTH (BEAKER) (test 14.3 % 11.6-14.4 jsll=225) PLATELET COUNT (BEAKER) (test jteb=161) 262 K/CU MM 150-450 MEAN PLATELET VOLUME (BEAKER) (test vbmj=342) 9.1 fL 9.4-12.4 NUCLEATED RED BLOOD CELLS (BEAKER) (test 0 /100 WBC 0-0 ncqk=110) NEUTROPHILS RELATIVE PERCENT (BEAKER) (test 69 % dkxa=606) LYMPHOCYTES RELATIVE PERCENT (BEAKER) (test 17 % fbnw=602) MONOCYTES RELATIVE PERCENT (BEAKER) (test 10 % trco=436) EOSINOPHILS RELATIVE PERCENT (BEAKER) (test 3 % dldq=789) BASOPHILS RELATIVE PERCENT (BEAKER) (test 0 % lmsj=673) NEUTROPHILS ABSOLUTE COUNT (BEAKER) (test 4.21 K/ L 1.78-5.38 mycu=708) LYMPHOCYTES ABSOLUTE COUNT (BEAKER) (test 1.04 K/ L 1.32-3.57 tegb=491) MONOCYTES ABSOLUTE COUNT (BEAKER) (test 0.60 K/ L 0.30-0.82 lcqq=775) EOSINOPHILS ABSOLUTE COUNT (BEAKER) (test 0.18 K/ L 0.04-0.54 qoii=613) BASOPHILS ABSOLUTE COUNT (BEAKER) (test 0.02 K/ L 0.01-0.08 uyzw=752) IMMATURE GRANULOCYTES-RELATIVE PERCENT (BEAKER) 1 % 0-1 (test omrn=0527) CT, ABDOMEN - PELVIS, PANCREAS [id number] 00:22:00Reason for exam:-&gt ;pancreatitisFINAL REPORT CT, ABDOMEN [...] Verified Date/ Time: 09/04/2017 00:22:52 Reading Location: [address] Reading Room [id number] 06:00:00 Test Item Value Reference Range Comments MAGNESIUM (BEAKER) (test 1.6 mg/dL 1.6-2.6 Specimen slightly hemolyzed owjn=026) [id number] 06:00:00 Test Item Value Reference Range Comments PHOSPHORUS (BEAKER) (test 3.4 mg/dL 2.3-4.7 Specimen slightly hemolyzed fluw=233) BASIC METABOLIC [id number] 06:00:00 Test Item Value Reference Range Comments SODIUM (BEAKER) (test 132 meq/L 136-145 ngme=013) POTASSIUM (BEAKER) (test 3.9 meq/L 3.5-5.1 Specimen slightly xwot=278) hemolyzed CHLORIDE (BEAKER) (test 101 meq/L 98-107 jnts=766) CO2 (BEAKER) (test 22 meq/L 22-29 chwp=552) BLOOD UREA NITROGEN 7 mg/dL 7-21 (BEAKER) (test hrfw=403) CREATININE (BEAKER) (test 0.49 mg/dL 0.57-1.25 Specimen slightly fndn=094) hemolyzed GLUCOSE RANDOM (BEAKER) 59 mg/dL 70-105 (test fuya=687) CALCIUM (BEAKER) (test 8.1 mg/dL 8.4-10.2 fegw=632) EGFR (BEAKER) (test 190 mL/min/1.73 sq m ESTIMATED GFR IS NOT lojn=8665) ACCURATE CREATININE CLEARANCE IN PREDICTING GLOMERULAR FILTRATION RATE. ESTIMATED GFR IS NOT APPLICABLE FOR DIALYSIS PATIENTS. HEPATIC FUNCTION [id number] 06:00:00 Test Item Value Reference Range Comments TOTAL PROTEIN (BEAKER) (test 5.7 gm/dL 6.0-8.3 Specimen slightly hemolyzed xyzx=564) ALBUMIN (BEAKER) (test 3.0 g/dL 3.5-5.0 Specimen slightly hemolyzed qsvb=4052) BILIRUBIN TOTAL (BEAKER) (test 1.2 mg/dL 0.2-1.2 Specimen slightly hemolyzed szay=208) BILIRUBIN DIRECT (BEAKER) (test 0.4 mg/dL 0.1-0.5 Specimen slightly hemolyzed obmx=052) ALKALINE PHOSPHATASE (BEAKER) 62 U/L 40-150 (test jcfh=335) AST (SGOT) (BEAKER) (test 18 U/L 5-34 Specimen slightly hemolyzed gzda=620) ALT (SGPT) (BEAKER) (test < U/L 6-55 Specimen slightly hemolyzed ellx=639) CBC W/PLT COUNT & AUTO [id number] 05:43:00 Test Item Value Reference Range Comments WHITE BLOOD CELL COUNT (BEAKER) (test wcaf=274) 8.4 K/ L 3.5-10.5 RED BLOOD CELL COUNT (BEAKER) (test llhw=629) 3.68 M/ L 4.63-6.08 HEMOGLOBIN (BEAKER) (test cgtb=495) 11.6 GM/DL 13.7-17.5 HEMATOCRIT (BEAKER) (test jmvg=643) 34.4 % 40.1-51.0 MEAN CORPUSCULAR VOLUME (BEAKER) (test pmpx=355) 93.5 fL 79.0-92.2 MEAN CORPUSCULAR HEMOGLOBIN (BEAKER) (test 31.5 pg 25.7-32.2 pesw=133) MEAN CORPUSCULAR HEMOGLOBIN CONC (BEAKER) (test 33.7 GM/DL 32.3-36.5 tkkl=124) RED CELL DISTRIBUTION WIDTH (BEAKER) (test 14.6 % 11.6-14.4 rvba=242) PLATELET COUNT (BEAKER) (test rlck=749) 221 K/CU MM 150-450 MEAN PLATELET VOLUME (BEAKER) (test olhp=610) 9.5 fL 9.4-12.4 NUCLEATED RED BLOOD CELLS (BEAKER) (test 0 /100 WBC 0-0 utru=463) NEUTROPHILS RELATIVE PERCENT (BEAKER) (test 75 % nawc=618) LYMPHOCYTES RELATIVE PERCENT (BEAKER) (test 14 % knnm=636) MONOCYTES RELATIVE PERCENT (BEAKER) (test 10 % gsdf=639) EOSINOPHILS RELATIVE PERCENT (BEAKER) (test 1 % jgej=218) BASOPHILS RELATIVE PERCENT (BEAKER) (test 0 % casv=110) NEUTROPHILS ABSOLUTE COUNT (BEAKER) (test 6.27 K/ L 1.78-5.38 rtpz=962) LYMPHOCYTES ABSOLUTE COUNT (BEAKER) (test 1.16 K/ L 1.32-3.57 sosu=261) MONOCYTES ABSOLUTE COUNT (BEAKER) (test 0.87 K/ L 0.30-0.82 doiz=517) EOSINOPHILS ABSOLUTE COUNT (BEAKER) (test 0.07 K/ L 0.04-0.54 vvyo=351) BASOPHILS ABSOLUTE COUNT (BEAKER) (test 0.03 K/ L 0.01-0.08 zcqy=529) IMMATURE GRANULOCYTES-RELATIVE PERCENT (BEAKER) 0 % 0-1 (test ctfm=6142) POCT-GLUCOSE [id number] 07:30:00 Test Item Value Reference Range Comments POC-GLUCOSE METER (BEAKER) 140 mg/dL 70-110 TESTED AT [address] (test cbiq=3117) [place] [id number] POCT-GLUCOSE [id number] 07:30:00 Test Item Value Reference Range Comments POC-GLUCOSE METER (BEAKER) 59 mg/dL 70-110 TESTED AT [address] (test lqge=4655) [place] [id number] 05:16:00 Test Item Value Reference Range Comments MAGNESIUM (BEAKER) (test 1.7 mg/dL 1.6-2.6 Specimen slightly hemolyzed nhgg=539) [id number] 05:16:00 Test Item Value Reference Range Comments PHOSPHORUS (BEAKER) (test 3.7 mg/dL 2.3-4.7 Specimen slightly hemolyzed pyxg=445) BASIC METABOLIC [id number] 05:16:00 Test Item Value Reference Range Comments SODIUM (BEAKER) (test 136 meq/L 136-145 pvhm=435) POTASSIUM (BEAKER) (test 4.1 meq/L 3.5-5.1 Specimen slightly fidc=072) hemolyzed CHLORIDE (BEAKER) (test 105 meq/L 98-107 eaoy=803) CO2 (BEAKER) (test 21 meq/L 22-29 xbju=688) BLOOD UREA NITROGEN 12 mg/dL 7-21 (BEAKER) (test fcmj=826) CREATININE (BEAKER) (test 0.62 mg/dL 0.57-1.25 Specimen slightly wgiu=951) hemolyzed GLUCOSE RANDOM (BEAKER) 65 mg/dL 70-105 (test orfa=504) CALCIUM (BEAKER) (test 8.4 mg/dL 8.4-10.2 kgrz=325) EGFR (BEAKER) (test 145 mL/min/1.73 sq m ESTIMATED GFR IS NOT qjju=3915) ACCURATE CREATININE CLEARANCE IN PREDICTING GLOMERULAR FILTRATION RATE. ESTIMATED GFR IS NOT APPLICABLE FOR DIALYSIS PATIENTS. HEPATIC FUNCTION [id number] 05:16:00 Test Item Value Reference Range Comments TOTAL PROTEIN (BEAKER) (test 5.9 gm/dL 6.0-8.3 Specimen slightly hemolyzed ifsl=977) ALBUMIN (BEAKER) (test 3.3 g/dL 3.5-5.0 Specimen slightly hemolyzed dnti=0702) BILIRUBIN TOTAL (BEAKER) (test 1.4 mg/dL 0.2-1.2 Specimen slightly hemolyzed rxol=639) BILIRUBIN DIRECT (BEAKER) (test 0.5 mg/dL 0.1-0.5 Specimen slightly hemolyzed oykn=370) ALKALINE PHOSPHATASE (BEAKER) 66 U/L 40-150 (test zfhs=690) AST (SGOT) (BEAKER) (test 16 U/L 5-34 Specimen slightly hemolyzed vxuf=485) ALT (SGPT) (BEAKER) (test 6 U/L 6-55 Specimen slightly hemolyzed uliz=760) CBC W/PLT COUNT & AUTO [id number] 04:45:00 Test Item Value Reference Range Comments WHITE BLOOD CELL COUNT (BEAKER) (test uxii=409) 9.1 K/ L 3.5-10.5 RED BLOOD CELL COUNT (BEAKER) (test roqr=796) 4.04 M/ L 4.63-6.08 HEMOGLOBIN (BEAKER) (test anvc=258) 12.3 GM/DL 13.7-17.5 HEMATOCRIT (BEAKER) (test dson=407) 38.1 % 40.1-51.0 MEAN CORPUSCULAR VOLUME (BEAKER) (test fpvo=744) 94.3 fL 79.0-92.2 MEAN CORPUSCULAR HEMOGLOBIN (BEAKER) (test 30.4 pg 25.7-32.2 yfva=859) MEAN CORPUSCULAR HEMOGLOBIN CONC (BEAKER) (test 32.3 GM/DL 32.3-36.5 cdoi=845) RED CELL DISTRIBUTION WIDTH (BEAKER) (test 15.7 % 11.6-14.4 cses=857) PLATELET COUNT (BEAKER) (test fylo=623) 243 K/CU MM 150-450 MEAN PLATELET VOLUME (BEAKER) (test zijm=378) 9.5 fL 9.4-12.4 NUCLEATED RED BLOOD CELLS (BEAKER) (test 0 /100 WBC 0-0 eykj=713) NEUTROPHILS RELATIVE PERCENT (BEAKER) (test 72 % khvb=599) LYMPHOCYTES RELATIVE PERCENT (BEAKER) (test 16 % okcy=975) MONOCYTES RELATIVE PERCENT (BEAKER) (test 10 % fftg=346) EOSINOPHILS RELATIVE PERCENT (BEAKER) (test 1 % nibj=141) BASOPHILS RELATIVE PERCENT (BEAKER) (test 0 % najl=421) NEUTROPHILS ABSOLUTE COUNT (BEAKER) (test 6.58 K/ L 1.78-5.38 nqqa=691) LYMPHOCYTES ABSOLUTE COUNT (BEAKER) (test 1.48 K/ L 1.32-3.57 yoss=290) MONOCYTES ABSOLUTE COUNT (BEAKER) (test 0.95 K/ L 0.30-0.82 gsbj=446) EOSINOPHILS ABSOLUTE COUNT (BEAKER) (test 0.05 K/ L 0.04-0.54 oxlr=897) BASOPHILS ABSOLUTE COUNT (BEAKER) (test 0.04 K/ L 0.01-0.08 myxn=388) IMMATURE GRANULOCYTES-RELATIVE PERCENT (BEAKER) 0 % 0-1 (test vmdz=7668) HEMOGLOBIN [id number] 10:23:00 Test Item Value Reference Range Comments HEMOGLOBIN A1C (BEAKER) (test nymx=578) 4.7 % 4.3-6.1 U/S, ABDOMINAL, [id number] 09:53:00Abdomen limited area? Add comment if clarification [...] Nelson MDReport Verified Date/Time:09/01/2017 09:53:12 Reading Location: [address] Ultrasound Reading Room SEDIMENTATION [id number] 08:01:00 Test Item Value Reference Range Comments SEDIMENTATION RATE, ERYTHROCYTE (BEAKER) (test 3 mm/HR 0-15 ylih=923) TSH/FREE T4 IF [id number] 04:12:00 Test Item Value Reference Range Comments THYROID STIMULATING HORMONE (BEAKER) (test 0.36 uIU/mL 0.35-4.94 jkjq=793) CREATINE KINASE (CK), TOTAL AND [id number] 04:03:00 Test Item Value Reference Range Comments CREATINE KINASE TOTAL (BEAKER) (test yusl=097) 29 U/L 29-200 CREATINE KINASE-MB (BEAKER) (test irzi=539) 0.4 ng/mL 0.0-6.6 CREATINE KINASE-MB INDEX (BEAKER) (test wvcn=095) 1.4 % CK-MB Reference Range:<6.7 Normal6.7-10.0 Borderline>10.0 AbnormalTROPONIN [id number] 04:03:00 Test Item Value Reference Range Comments TROPONIN I (BEAKER) (test gncv=798) < ng/mL 0.00-0.03 Troponin I (TnI) levels [...] failure, acidosis, acute neurological disease, and persistent tachyarrhythmia.[id number] 03:53:00 Test Item Value Reference Range Comments PHOSPHORUS (BEAKER) (test ryok=825) 3.5 mg/dL 2.3-4.7 [id number] 03:53:00 Test Item Value Reference Range Comments MAGNESIUM (BEAKER) (test immv=971) 1.7 mg/dL 1.6-2.6 BASIC METABOLIC [id number] 03:53:00 Test Item Value Reference Range Comments SODIUM (BEAKER) (test 137 meq/L 136-145 ajgl=265) POTASSIUM (BEAKER) (test 3.8 meq/L 3.5-5.1 bhmo=020) CHLORIDE (BEAKER) (test 105 meq/L 98-107 nexu=211) CO2 (BEAKER) (test 23 meq/L 22-29 fefc=314) BLOOD UREA NITROGEN 7 mg/dL 7-21 (BEAKER) (test fuzv=438) CREATININE (BEAKER) (test 0.62 mg/dL 0.57-1.25 xwas=859) GLUCOSE RANDOM (BEAKER) 102 mg/dL 70-105 (test ckvg=088) CALCIUM (BEAKER) (test 9.0 mg/dL 8.4-10.2 obqq=564) EGFR (BEAKER) (test 145 mL/min/1.73 sq m ESTIMATED GFR IS NOT awwa=6968) ACCURATE CREATININE CLEARANCE IN PREDICTING GLOMERULAR FILTRATION RATE. ESTIMATED GFR IS NOT APPLICABLE FOR DIALYSIS PATIENTS. LIPID [id number] 03:53:00 Test Item Value Reference Range Comments TRIGLYCERIDES (BEAKER) (test xlhp=947) 76 mg/dL CHOLESTEROL (BEAKER) (test nwpz=397) 118 mg/dL HDL CHOLESTEROL (BEAKER) (test vlub=063) 37 mg/dL LDL CHOLESTEROL CALCULATED (BEAKER) (test 66 mg/dL epsw=915) Triglyceride Reference Range: Low Risk <150 Borderline 150- 199 High Risk 200-499 Very High Risk >=500Cholesterol Reference Range: Low Risk <200 Borderline 200-239 High Risk > 240HDL Cholesterol Reference Range: Low Risk >=60 High Risk <40LDL Cholesterol Reference Range: Optimal <100 Near Optimal 100-129 Borderline 130-159 High 160-189 Very High >=190HEPATIC FUNCTION [id number] 03:53:00 Test Item Value Reference Range Comments TOTAL PROTEIN (BEAKER) (test ydnd=913) 6.8 gm/dL 6.0-8.3 ALBUMIN (BEAKER) (test kaem=2444) 3.9 g/dL 3.5-5.0 BILIRUBIN TOTAL (BEAKER) (test dklh=621) 1.2 mg/dL 0.2-1.2 BILIRUBIN DIRECT (BEAKER) (test aafk=861) 0.5 mg/dL 0.1-0.5 ALKALINE PHOSPHATASE (BEAKER) (test ahfe=023) 81 U/L 40-150 AST (SGOT) (BEAKER) (test wecu=583) 13 U/L 5-34 ALT (SGPT) (BEAKER) (test haqq=774) 6 U/L 6-55 [id number] 03:53:00 Test Item Value Reference Range Comments AMYLASE (BEAKER) (test ptne=900) 383 U/L 25-125 [id number] 03:53:00 Test Item Value Reference Range Comments LIPASE (BEAKER) (test pqkx=956) 266 U/L 8-78 C-REACTIVE [id number] 03:53:00 Test Item Value Reference Range Comments C-REACTIVE PROTEIN (BEAKER) (test yknr=455) 0.23 mg/dL 0.00-0.50 CBC W/PLT COUNT & AUTO [id number] 03:38:00 Test Item Value Reference Range Comments WHITE BLOOD CELL COUNT (BEAKER) (test umfr=109) 10.7 K/ L 3.5-10.5 RED BLOOD CELL COUNT (BEAKER) (test kmli=663) 4.45 M/ L 4.63-6.08 HEMOGLOBIN (BEAKER) (test daep=104) 13.6 GM/DL 13.7-17.5 HEMATOCRIT (BEAKER) (test qsgn=601) 40.4 % 40.1-51.0 MEAN CORPUSCULAR VOLUME (BEAKER) (test aove=519) 90.8 fL 79.0-92.2 MEAN CORPUSCULAR HEMOGLOBIN (BEAKER) (test 30.6 pg 25.7-32.2 ijbd=250) MEAN CORPUSCULAR HEMOGLOBIN CONC (BEAKER) (test 33.7 GM/DL 32.3-36.5 adkc=219) RED CELL DISTRIBUTION WIDTH (BEAKER) (test 15.5 % 11.6-14.4 vrqh=388) PLATELET COUNT (BEAKER) (test cfhb=636) 277 K/CU MM 150-450 MEAN PLATELET VOLUME (BEAKER) (test cphk=124) 9.7 fL 9.4-12.4 NUCLEATED RED BLOOD CELLS (BEAKER) (test 0 /100 WBC 0-0 jjsy=467) NEUTROPHILS RELATIVE PERCENT (BEAKER) (test 70 % qwkp=717) LYMPHOCYTES RELATIVE PERCENT (BEAKER) (test 18 % cfsx=978) MONOCYTES RELATIVE PERCENT (BEAKER) (test 11 % hjdf=479) EOSINOPHILS RELATIVE PERCENT (BEAKER) (test 0 % otgx=700) BASOPHILS RELATIVE PERCENT (BEAKER) (test 0 % ckps=629) NEUTROPHILS ABSOLUTE COUNT (BEAKER) (test 7.46 K/ L 1.78-5.38 lynp=946) LYMPHOCYTES ABSOLUTE COUNT (BEAKER) (test 1.93 K/ L 1.32-3.57 abgh=086) MONOCYTES ABSOLUTE COUNT (BEAKER) (test 1.17 K/ L 0.30-0.82 ckoq=948) EOSINOPHILS ABSOLUTE COUNT (BEAKER) (test 0.02 K/ L 0.04-0.54 nhjn=798) BASOPHILS ABSOLUTE COUNT (BEAKER) (test 0.03 K/ L 0.01-0.08 uwrd=597) IMMATURE GRANULOCYTES-RELATIVE PERCENT (BEAKER) 0 % 0-1 (test hgfz=5756) COMPREHENSIVE METABOLIC [id number] 14:02:00 Test Item Value Reference Range Comments TOTAL PROTEIN (BEAKER) 7.8 gm/dL 6.0-8.3 (test xgex=693) ALBUMIN (BEAKER) (test 3.9 g/dL 3.5-5.0 lnfv=4505) ALKALINE PHOSPHATASE 62 U/L 40-150 (BEAKER) (test grxx=069) BILIRUBIN TOTAL (BEAKER) 0.3 mg/dL 0.2-1.2 (test wxzk=050) SODIUM (BEAKER) (test 139 meq/L 136-145 sszp=999) POTASSIUM (BEAKER) (test 4.2 meq/L 3.5-5.1 qiuz=613) CHLORIDE (BEAKER) (test 104 meq/L 98-107 xqac=484) CO2 (BEAKER) (test 26 meq/L 22-29 dlkw=361) BLOOD UREA NITROGEN 9 mg/dL 7-21 (BEAKER) (test ydbw=308) CREATININE (BEAKER) (test 0.64 mg/dL 0.57-1.25 avar=265) GLUCOSE RANDOM (BEAKER) 78 mg/dL 70-105 (test qtzp=168) CALCIUM (BEAKER) (test 9.5 mg/dL 8.4-10.2 eojy=527) AST (SGOT) (BEAKER) (test 18 U/L 5-34 gasy=614) ALT (SGPT) (BEAKER) (test 8 U/L 6-55 kxoy=637) EGFR (BEAKER) (test 141 mL/min/1.73 sq ESTIMATED GFR IS NOT rdvt=6214) m ACCURATE CREATININE CLEARANCE IN PREDICTING GLOMERULAR FILTRATION RATE. ESTIMATED GFR IS NOT APPLICABLE FOR DIALYSIS PATIENTS. COMPREHENSIVE METABOLIC [id number] 06:08:00 Test Item Value Reference Range Comments TOTAL PROTEIN (BEAKER) 7.0 gm/dL 6.0-8.3 Specimen slightly (test gnqg=637) hemolyzed ALBUMIN (BEAKER) (test 3.4 g/dL 3.5-5.0 Specimen slightly byrc=1881) hemolyzed ALKALINE PHOSPHATASE 58 U/L 40-150 (BEAKER) (test jggh=518) BILIRUBIN TOTAL (BEAKER) 0.4 mg/dL 0.2-1.2 Specimen slightly (test cuqf=806) hemolyzed SODIUM (BEAKER) (test 139 meq/L 136-145 ivhq=005) POTASSIUM (BEAKER) (test 4.5 meq/L 3.5-5.1 Specimen slightly qkpz=617) hemolyzed CHLORIDE (BEAKER) (test 103 meq/L 98-107 wksq=303) CO2 (BEAKER) (test 27 meq/L 22-29 mweh=291) BLOOD UREA NITROGEN 2 mg/dL 7-21 (BEAKER) (test eewu=149) CREATININE (BEAKER) (test 0.55 mg/dL 0.57-1.25 Specimen slightly fssf=428) hemolyzed GLUCOSE RANDOM (BEAKER) 85 mg/dL 70-105 (test dnqb=301) CALCIUM (BEAKER) (test 9.3 mg/dL 8.4-10.2 bhdq=293) AST (SGOT) (BEAKER) (test 18 U/L 5-34 Specimen slightly qarx=326) hemolyzed ALT (SGPT) (BEAKER) (test 8 U/L 6-55 Specimen slightly noun=503) hemolyzed EGFR (BEAKER) (test 168 mL/min/1.73 sq ESTIMATED GFR IS NOT roqy=7740) m ACCURATE CREATININE CLEARANCE IN PREDICTING GLOMERULAR FILTRATION RATE. ESTIMATED GFR IS NOT APPLICABLE FOR DIALYSIS PATIENTS. CBC (HEMOGRAM ONLY)2017-05-17 05:20:00 Test Item Value Reference Range Comments WHITE BLOOD CELL COUNT (BEAKER) (test hvap=207) 6.4 K/ L 3.5-10.5 RED BLOOD CELL COUNT (BEAKER) (test nwad=134) 3.84 M/ L 4.63-6.08 HEMOGLOBIN (BEAKER) (test uejq=216) 11.5 GM/DL 13.7-17.5 HEMATOCRIT (BEAKER) (test rrtr=435) 35.2 % 40.1-51.0 MEAN CORPUSCULAR VOLUME (BEAKER) (test cyau=080) 91.7 fL 79.0-92.2 MEAN CORPUSCULAR HEMOGLOBIN (BEAKER) (test 29.9 pg 25.7-32.2 xpxf=470) MEAN CORPUSCULAR HEMOGLOBIN CONC (BEAKER) (test 32.7 GM/DL 32.3-36.5 gbef=382) RED CELL DISTRIBUTION WIDTH (BEAKER) (test 14.1 % 11.6-14.4 wcpt=089) PLATELET COUNT (BEAKER) (test wtin=516) 434 K/CU MM 150-450 MEAN PLATELET VOLUME (BEAKER) (test xgdw=080) 9.4 fL 9.4-12.4 NUCLEATED RED BLOOD CELLS (BEAKER) (test 0 /100 WBC 0-0 lnuq=262) HEPATIC FUNCTION [id number] 11:22:00 Test Item Value Reference Range Comments TOTAL PROTEIN (BEAKER) (test puqd=611) 6.9 gm/dL 6.0-8.3 ALBUMIN (BEAKER) (test hned=5183) 3.4 g/dL 3.5-5.0 BILIRUBIN TOTAL (BEAKER) (test viyl=985) 0.4 mg/dL 0.2-1.2 BILIRUBIN DIRECT (BEAKER) (test bteg=951) 0.2 mg/dL 0.1-0.5 ALKALINE PHOSPHATASE (BEAKER) (test htzs=394) 65 U/L 40-150 AST (SGOT) (BEAKER) (test jtca=320) 14 U/L 5-34 ALT (SGPT) (BEAKER) (test wckh=095) 8 U/L 6-55 CBC W/PLT COUNT & AUTO [id number] 11:16:00 Test Item Value Reference Range Comments WHITE BLOOD CELL COUNT (BEAKER) (test vcrh=662) 7.0 K/ L 3.5-10.5 RED BLOOD CELL COUNT (BEAKER) (test xkat=481) 3.90 M/ L 4.63-6.08 HEMOGLOBIN (BEAKER) (test upxj=694) 11.9 GM/DL 13.7-17.5 HEMATOCRIT (BEAKER) (test hpaa=252) 35.7 % 40.1-51.0 MEAN CORPUSCULAR VOLUME (BEAKER) (test liim=701) 91.5 fL 79.0-92.2 MEAN CORPUSCULAR HEMOGLOBIN (BEAKER) (test 30.5 pg 25.7-32.2 mmfh=856) MEAN CORPUSCULAR HEMOGLOBIN CONC (BEAKER) (test 33.3 GM/DL 32.3-36.5 ncjk=677) RED CELL DISTRIBUTION WIDTH (BEAKER) (test 14.0 % 11.6-14.4 ggje=683) PLATELET COUNT (BEAKER) (test wbrg=338) 452 K/CU MM 150-450 MEAN PLATELET VOLUME (BEAKER) (test yhek=329) 9.0 fL 9.4-12.4 NUCLEATED RED BLOOD CELLS (BEAKER) (test 0 /100 WBC 0-0 fzca=224) NEUTROPHILS RELATIVE PERCENT (BEAKER) (test 59 % sygs=396) LYMPHOCYTES RELATIVE PERCENT (BEAKER) (test 21 % pneh=372) MONOCYTES RELATIVE PERCENT (BEAKER) (test 8 % dywp=843) EOSINOPHILS RELATIVE PERCENT (BEAKER) (test 10 % kndc=703) BASOPHILS RELATIVE PERCENT (BEAKER) (test 1 % ayrq=199) NEUTROPHILS ABSOLUTE COUNT (BEAKER) (test 4.12 K/ L 1.78-5.38 myfl=361) LYMPHOCYTES ABSOLUTE COUNT (BEAKER) (test 1.45 K/ L 1.32-3.57 seyl=873) MONOCYTES ABSOLUTE COUNT (BEAKER) (test 0.58 K/ L 0.30-0.82 auka=977) EOSINOPHILS ABSOLUTE COUNT (BEAKER) (test 0.70 K/ L 0.04-0.54 ixfm=152) BASOPHILS ABSOLUTE COUNT (BEAKER) (test 0.10 K/ L 0.01-0.08 zrkp=852) IMMATURE GRANULOCYTES-RELATIVE PERCENT (BEAKER) 0 % 0-1 (test fwrs=5557) BASIC METABOLIC [id number] 06:43:00 Test Item Value Reference Range Comments SODIUM (BEAKER) (test 138 meq/L 136-145 ulpf=151) POTASSIUM (BEAKER) (test 3.5 meq/L 3.5-5.1 jjlo=336) CHLORIDE (BEAKER) (test 100 meq/L 98-107 zocg=582) CO2 (BEAKER) (test 27 meq/L 22-29 eate=933) BLOOD UREA NITROGEN 2 mg/dL 7-21 (BEAKER) (test okdx=778) CREATININE (BEAKER) (test 0.53 mg/dL 0.57-1.25 gxeu=855) GLUCOSE RANDOM (BEAKER) 82 mg/dL 70-105 (test qmia=054) CALCIUM (BEAKER) (test 9.0 mg/dL 8.4-10.2 lyck=467) EGFR (BEAKER) (test 175 mL/min/1.73 sq m ESTIMATED GFR IS NOT oivy=8495) ACCURATE CREATININE CLEARANCE IN PREDICTING GLOMERULAR FILTRATION RATE. ESTIMATED GFR IS NOT APPLICABLE FOR DIALYSIS PATIENTS. BASIC METABOLIC [id number] 05:14:00 Test Item Value Reference Range Comments SODIUM (BEAKER) (test 132 meq/L 136-145 tnjv=556) POTASSIUM (BEAKER) (test 3.8 meq/L 3.5-5.1 zwag=767) CHLORIDE (BEAKER) (test 101 meq/L 98-107 mvfc=198) CO2 (BEAKER) (test 18 meq/L 22-29 pzjk=887) BLOOD UREA NITROGEN 4 mg/dL 7-21 (BEAKER) (test jpnn=159) CREATININE (BEAKER) (test 0.52 mg/dL 0.57-1.25 gtdy=992) GLUCOSE RANDOM (BEAKER) 58 mg/dL 70-105 (test qnhn=984) CALCIUM (BEAKER) (test 8.7 mg/dL 8.4-10.2 xzvt=065) EGFR (BEAKER) (test 179 mL/min/1.73 sq m ESTIMATED GFR IS NOT ihvo=2256) ACCURATE CREATININE CLEARANCE IN PREDICTING GLOMERULAR FILTRATION RATE. ESTIMATED GFR IS NOT APPLICABLE FOR DIALYSIS PATIENTS. CBC (HEMOGRAM ONLY)2017-05-15 04:57:00 Test Item Value Reference Range Comments WHITE BLOOD CELL COUNT (BEAKER) (test ltpb=687) 13.4 K/ L 3.5-10.5 RED BLOOD CELL COUNT (BEAKER) (test nnxf=378) 3.81 M/ L 4.63-6.08 HEMOGLOBIN (BEAKER) (test gxco=517) 11.4 GM/DL 13.7-17.5 HEMATOCRIT (BEAKER) (test xxgn=348) 35.1 % 40.1-51.0 MEAN CORPUSCULAR VOLUME (BEAKER) (test xidb=144) 92.1 fL 79.0-92.2 MEAN CORPUSCULAR HEMOGLOBIN (BEAKER) (test 29.9 pg 25.7-32.2 qoew=976) MEAN CORPUSCULAR HEMOGLOBIN CONC (BEAKER) (test 32.5 GM/DL 32.3-36.5 kztg=726) RED CELL DISTRIBUTION WIDTH (BEAKER) (test 14.3 % 11.6-14.4 gzhu=418) PLATELET COUNT (BEAKER) (test gzax=528) 502 K/CU MM 150-450 MEAN PLATELET VOLUME (BEAKER) (test kccq=450) 9.6 fL 9.4-12.4 NUCLEATED RED BLOOD CELLS (BEAKER) (test 0 /100 WBC 0-0 rund=743) LIPID [id number] 05:00:00 Test Item Value Reference Range Comments TRIGLYCERIDES (BEAKER) (test nyad=844) 71 mg/dL CHOLESTEROL (BEAKER) (test eljh=679) 108 mg/dL HDL CHOLESTEROL (BEAKER) (test xxhm=233) 22 mg/dL LDL CHOLESTEROL CALCULATED (BEAKER) (test 72 mg/dL agds=400) Triglyceride Reference Range: Low Risk <150 Borderline 150- 199 High Risk 200-499 Very High Risk >=500Cholesterol Reference Range: Low Risk <200 Borderline 200-239 High Risk > 240HDL Cholesterol Reference Range: Low Risk >=60 High Risk <40LDL Cholesterol Reference Range: Optimal <100 Near Optimal 100-129 Borderline 130-159 High 160-189 Very High >=190BASIC METABOLIC [id number] 05:00:00 Test Item Value Reference Range Comments SODIUM (BEAKER) (test 133 meq/L 136-145 sqxf=419) POTASSIUM (BEAKER) (test 4.1 meq/L 3.5-5.1 advn=279) CHLORIDE (BEAKER) (test 105 meq/L 98-107 gpwx=622) CO2 (BEAKER) (test 17 meq/L 22-29 oent=867) BLOOD UREA NITROGEN 8 mg/dL 7-21 (BEAKER) (test pkog=456) CREATININE (BEAKER) (test 0.51 mg/dL 0.57-1.25 ulkv=418) GLUCOSE RANDOM (BEAKER) 54 mg/dL 70-105 (test hvyo=286) CALCIUM (BEAKER) (test 8.4 mg/dL 8.4-10.2 gppg=825) EGFR (BEAKER) (test 183 mL/min/1.73 sq m ESTIMATED GFR IS NOT xpsl=0290) ACCURATE CREATININE CLEARANCE IN PREDICTING GLOMERULAR FILTRATION RATE. ESTIMATED GFR IS NOT APPLICABLE FOR DIALYSIS PATIENTS. HEPATIC FUNCTION [id number] 05:00:00 Test Item Value Reference Range Comments TOTAL PROTEIN (BEAKER) (test bgzr=008) 6.3 gm/dL 6.0-8.3 ALBUMIN (BEAKER) (test hgzq=4241) 3.2 g/dL 3.5-5.0 BILIRUBIN TOTAL (BEAKER) (test pbwz=504) 0.7 mg/dL 0.2-1.2 BILIRUBIN DIRECT (BEAKER) (test rtha=185) 0.3 mg/dL 0.1-0.5 ALKALINE PHOSPHATASE (BEAKER) (test nfjp=350) 62 U/L 40-150 AST (SGOT) (BEAKER) (test aqtd=202) 13 U/L 5-34 ALT (SGPT) (BEAKER) (test qndq=826) 9 U/L 6-55 [id number] 05:00:00 Test Item Value Reference Range Comments LIPASE (BEAKER) (test fgqm=166) 1007 U/L 8-78 CBC (HEMOGRAM ONLY)2017-05-14 04:39:00 Test Item Value Reference Range Comments WHITE BLOOD CELL COUNT (BEAKER) (test post=576) 16.6 K/ L 3.5-10.5 RED BLOOD CELL COUNT (BEAKER) (test wgxt=974) 3.98 M/ L 4.63-6.08 HEMOGLOBIN (BEAKER) (test mydr=808) 12.0 GM/DL 13.7-17.5 HEMATOCRIT (BEAKER) (test pynu=235) 37.2 % 40.1-51.0 MEAN CORPUSCULAR VOLUME (BEAKER) (test gjhz=257) 93.5 fL 79.0-92.2 MEAN CORPUSCULAR HEMOGLOBIN (BEAKER) (test 30.2 pg 25.7-32.2 bhat=797) MEAN CORPUSCULAR HEMOGLOBIN CONC (BEAKER) (test 32.3 GM/DL 32.3-36.5 blnx=099) RED CELL DISTRIBUTION WIDTH (BEAKER) (test 14.5 % 11.6-14.4 aovr=180) PLATELET COUNT (BEAKER) (test dpkr=865) 527 K/CU MM 150-450 MEAN PLATELET VOLUME (BEAKER) (test ofke=125) 9.5 fL 9.4-12.4 NUCLEATED RED BLOOD CELLS (BEAKER) (test 0 /100 WBC 0-0 mdrn=195) MR, ABDOMEN, [id number] 12:25:00FINAL REPORT MRI of the abdomen, MRCP. [...] biliary dilatation or choledocholithiasis. Signed: [facility] Ver[facility] Date/Time: 03/13/2017 12:25:41 Reading Location: [facility] [id number] [facility] Consult Reading Room Electronically signed by: KIKO VEE M.D. on 12:25 [facility] [id number] 05:05:00 Test Item Value Reference Range Comments SODIUM (BEAKER) (test 139 meq/L 136-145 fpll=403) POTASSIUM (BEAKER) (test 3.7 meq/L 3.5-5.1 kgfx=177) CHLORIDE (BEAKER) (test 108 meq/L 98-107 hqln=544) CO2 (BEAKER) (test 22 meq/L 22-29 addn=133) BLOOD UREA NITROGEN 4 mg/dL 7-21 (BEAKER) (test dpkv=861) CREATININE (BEAKER) (test 0.58 mg/dL 0.57-1.25 joqm=341) GLUCOSE RANDOM (BEAKER) 95 mg/dL 70-105 (test zewz=637) CALCIUM (BEAKER) (test 8.5 mg/dL 8.4-10.2 edao=828) EGFR (BEAKER) (test 158 mL/min/1.73 sq m ESTIMATED GFR IS NOT eofy=4131) ACCURATE CREATININE CLEARANCE IN PREDICTING GLOMERULAR FILTRATION RATE. ESTIMATED GFR IS NOT APPLICABLE FOR DIALYSIS PATIENTS. CBC W/PLT COUNT & AUTO [id number] 04:49:00 Test Item Value Reference Range Comments WHITE BLOOD CELL COUNT (BEAKER) (test cxfi=621) 6.3 K/ L 3.5-10.5 RED BLOOD CELL COUNT (BEAKER) (test pwqo=273) 4.32 M/ L 4.63-6.08 HEMOGLOBIN (BEAKER) (test ptff=347) 13.7 GM/DL 13.7-17.5 HEMATOCRIT (BEAKER) (test rufw=415) 40.3 % 40.1-51.0 MEAN CORPUSCULAR VOLUME (BEAKER) (test xrrq=071) 93.3 fL 79.0-92.2 MEAN CORPUSCULAR HEMOGLOBIN (BEAKER) (test 31.7 pg 25.7-32.2 hgue=274) MEAN CORPUSCULAR HEMOGLOBIN CONC (BEAKER) (test 34.0 GM/DL 32.3-36.5 mjci=312) RED CELL DISTRIBUTION WIDTH (BEAKER) (test 11.9 % 11.6-14.4 squs=474) PLATELET COUNT (BEAKER) (test suph=456) 286 K/CU MM 150-450 MEAN PLATELET VOLUME (BEAKER) (test tqdf=263) 9.4 fL 9.4-12.4 NUCLEATED RED BLOOD CELLS (BEAKER) (test 0 /100 WBC 0-0 muob=409) NEUTROPHILS RELATIVE PERCENT (BEAKER) (test 51 % lhpl=336) LYMPHOCYTES RELATIVE PERCENT (BEAKER) (test 31 % djer=702) MONOCYTES RELATIVE PERCENT (BEAKER) (test 11 % gtce=765) EOSINOPHILS RELATIVE PERCENT (BEAKER) (test 6 % wrlh=548) BASOPHILS RELATIVE PERCENT (BEAKER) (test 1 % atpt=691) NEUTROPHILS ABSOLUTE COUNT (BEAKER) (test 3.21 K/ L 1.78-5.38 czyb=655) LYMPHOCYTES ABSOLUTE COUNT (BEAKER) (test 1.91 K/ L 1.32-3.57 brzw=159) MONOCYTES ABSOLUTE COUNT (BEAKER) (test 0.68 K/ L 0.30-0.82 iecf=002) EOSINOPHILS ABSOLUTE COUNT (BEAKER) (test 0.40 K/ L 0.04-0.54 tycq=722) BASOPHILS ABSOLUTE COUNT (BEAKER) (test 0.04 K/ L 0.01-0.08 iueh=579) IMMATURE GRANULOCYTES-RELATIVE PERCENT (BEAKER) 1 % 0-1 (test miui=0883) CBC W/PLT COUNT & AUTO [id number] 04:52:00 Test Item Value Reference Range Comments WHITE BLOOD CELL COUNT (BEAKER) (test ogcb=956) 6.2 K/ L 3.5-10.5 RED BLOOD CELL COUNT (BEAKER) (test svtf=895) 4.31 M/ L 4.63-6.08 HEMOGLOBIN (BEAKER) (test viol=053) 13.7 GM/DL 13.7-17.5 HEMATOCRIT (BEAKER) (test etik=034) 41.1 % 40.1-51.0 MEAN CORPUSCULAR VOLUME (BEAKER) (test qetm=134) 95.4 fL 79.0-92.2 MEAN CORPUSCULAR HEMOGLOBIN (BEAKER) (test 31.8 pg 25.7-32.2 cncl=832) MEAN CORPUSCULAR HEMOGLOBIN CONC (BEAKER) (test 33.3 GM/DL 32.3-36.5 uwdz=680) RED CELL DISTRIBUTION WIDTH (BEAKER) (test 12.1 % 11.6-14.4 jeje=102) PLATELET COUNT (BEAKER) (test vfln=832) 295 K/CU MM 150-450 MEAN PLATELET VOLUME (BEAKER) (test kpud=498) 9.5 fL 9.4-12.4 NUCLEATED RED BLOOD CELLS (BEAKER) (test 0 /100 WBC 0-0 qyee=316) NEUTROPHILS RELATIVE PERCENT (BEAKER) (test 51 % evjv=821) LYMPHOCYTES RELATIVE PERCENT (BEAKER) (test 31 % rbgx=612) MONOCYTES RELATIVE PERCENT (BEAKER) (test 11 % batb=385) EOSINOPHILS RELATIVE PERCENT (BEAKER) (test 7 % qovi=674) BASOPHILS RELATIVE PERCENT (BEAKER) (test 1 % dots=720) NEUTROPHILS ABSOLUTE COUNT (BEAKER) (test 3.17 K/ L 1.78-5.38 fogi=479) LYMPHOCYTES ABSOLUTE COUNT (BEAKER) (test 1.89 K/ L 1.32-3.57 ijsd=710) MONOCYTES ABSOLUTE COUNT (BEAKER) (test 0.65 K/ L 0.30-0.82 xozs=220) EOSINOPHILS ABSOLUTE COUNT (BEAKER) (test 0.41 K/ L 0.04-0.54 kebn=331) BASOPHILS ABSOLUTE COUNT (BEAKER) (test 0.05 K/ L 0.01-0.08 mncs=438) IMMATURE GRANULOCYTES-RELATIVE PERCENT (BEAKER) 1 % 0-1 (test neee=6016) COMPREHENSIVE METABOLIC [id number] 11:20:00 Test Item Value Reference Range Comments TOTAL PROTEIN (BEAKER) 7.2 gm/dL 6.0-8.3 (test pcmh=330) ALBUMIN (BEAKER) (test 3.7 g/dL 3.5-5.0 jsen=2247) ALKALINE PHOSPHATASE 73 U/L 40-150 (BEAKER) (test puau=443) BILIRUBIN TOTAL (BEAKER) 0.6 mg/dL 0.2-1.2 (test ssxu=524) SODIUM (BEAKER) (test 135 meq/L 136-145 ctck=365) POTASSIUM (BEAKER) (test 5.0 meq/L 3.5-5.1 sras=870) CHLORIDE (BEAKER) (test 109 meq/L 98-107 sdjk=977) CO2 (BEAKER) (test 14 meq/L 22-29 wcha=371) BLOOD UREA NITROGEN 6 mg/dL 7-21 (BEAKER) (test gvuj=597) CREATININE (BEAKER) (test 0.62 mg/dL 0.57-1.25 klii=126) GLUCOSE RANDOM (BEAKER) 45 mg/dL 70-105 (test wlpp=212) CALCIUM (BEAKER) (test 8.6 mg/dL 8.4-10.2 yvfn=428) AST (SGOT) (BEAKER) (test 17 U/L 5-34 znfk=600) ALT (SGPT) (BEAKER) (test 14 U/L 6-55 bowl=457) EGFR (BEAKER) (test 146 mL/min/1.73 sq ESTIMATED GFR IS NOT skoj=8495) m ACCURATE CREATININE CLEARANCE IN PREDICTING GLOMERULAR FILTRATION RATE. ESTIMATED GFR IS NOT APPLICABLE FOR DIALYSIS PATIENTS. CBC W/PLT COUNT & AUTO [id number] 09:54:00 Test Item Value Reference Range Comments WHITE BLOOD CELL COUNT (BEAKER) (test ebwx=552) 7.4 K/ L 3.5-10.5 RED BLOOD CELL COUNT (BEAKER) (test otke=555) 4.32 M/ L 4.63-6.08 HEMOGLOBIN (BEAKER) (test ggvm=854) 13.6 GM/DL 13.7-17.5 HEMATOCRIT (BEAKER) (test rspb=733) 41.8 % 40.1-51.0 MEAN CORPUSCULAR VOLUME (BEAKER) (test gipc=467) 96.8 fL 79.0-92.2 MEAN CORPUSCULAR HEMOGLOBIN (BEAKER) (test 31.5 pg 25.7-32.2 tqmz=145) MEAN CORPUSCULAR HEMOGLOBIN CONC (BEAKER) (test 32.5 GM/DL 32.3-36.5 qrrl=913) RED CELL DISTRIBUTION WIDTH (BEAKER) (test 12.1 % 11.6-14.4 bmrv=983) PLATELET COUNT (BEAKER) (test imns=016) 277 K/CU MM 150-450 MEAN PLATELET VOLUME (BEAKER) (test vrbl=092) 9.7 fL 9.4-12.4 NUCLEATED RED BLOOD CELLS (BEAKER) (test 0 /100 WBC 0-0 gimb=855) NEUTROPHILS RELATIVE PERCENT (BEAKER) (test 57 % iepw=045) LYMPHOCYTES RELATIVE PERCENT (BEAKER) (test 29 % glkv=162) MONOCYTES RELATIVE PERCENT (BEAKER) (test 8 % tcth=633) EOSINOPHILS RELATIVE PERCENT (BEAKER) (test 5 % zzaj=603) BASOPHILS RELATIVE PERCENT (BEAKER) (test 1 % biwi=507) NEUTROPHILS ABSOLUTE COUNT (BEAKER) (test 4.23 K/ L 1.78-5.38 woue=727) LYMPHOCYTES ABSOLUTE COUNT (BEAKER) (test 2.10 K/ L 1.32-3.57 ortd=876) MONOCYTES ABSOLUTE COUNT (BEAKER) (test 0.57 K/ L 0.30-0.82 ubba=549) EOSINOPHILS ABSOLUTE COUNT (BEAKER) (test 0.38 K/ L 0.04-0.54 iffw=298) BASOPHILS ABSOLUTE COUNT (BEAKER) (test 0.05 K/ L 0.01-0.08 nzfq=932) IMMATURE GRANULOCYTES-RELATIVE PERCENT (BEAKER) 1 % 0-1 (test plmc=8052) (MANUAL DIFFERENTIAL)2017-03-11 09:54:00 Test Item Value Reference Range Comments TOTAL COUNTED (BEAKER) (test vtsq=8995) WBC MORPHOLOGY (BEAKER) (test meeo=871) Normal PLT MORPHOLOGY (BEAKER) (test ynyz=400) Normal RBC MORPHOLOGY (BEAKER) (test kjyw=520) Normal CBC W/PLT COUNT & AUTO [id number] 09:09:00 Test Item Value Reference Range Comments WHITE BLOOD CELL COUNT (BEAKER) (test alpr=592) 8.9 K/ L 3.5-10.5 RED BLOOD CELL COUNT (BEAKER) (test mwff=548) 4.25 M/ L 4.63-6.08 HEMOGLOBIN (BEAKER) (test ofjp=216) 13.6 GM/DL 13.7-17.5 HEMATOCRIT (BEAKER) (test beyv=331) 40.7 % 40.1-51.0 MEAN CORPUSCULAR VOLUME (BEAKER) (test bpxk=240) 95.8 fL 79.0-92.2 MEAN CORPUSCULAR HEMOGLOBIN (BEAKER) (test 32.0 pg 25.7-32.2 hucv=928) MEAN CORPUSCULAR HEMOGLOBIN CONC (BEAKER) (test 33.4 GM/DL 32.3-36.5 shwd=564) RED CELL DISTRIBUTION WIDTH (BEAKER) (test 12.1 % 11.6-14.4 pfqz=500) PLATELET COUNT (BEAKER) (test jqmp=985) 274 K/CU MM 150-450 MEAN PLATELET VOLUME (BEAKER) (test ulwi=743) 9.8 fL 9.4-12.4 NUCLEATED RED BLOOD CELLS (BEAKER) (test 0 /100 WBC 0-0 gxnj=307) NEUTROPHILS RELATIVE PERCENT (BEAKER) (test 62 % cige=525) LYMPHOCYTES RELATIVE PERCENT (BEAKER) (test 24 % nzrc=278) MONOCYTES RELATIVE PERCENT (BEAKER) (test 7 % cwkz=828) EOSINOPHILS RELATIVE PERCENT (BEAKER) (test 5 % fwxn=660) BASOPHILS RELATIVE PERCENT (BEAKER) (test 1 % tpuq=039) NEUTROPHILS ABSOLUTE COUNT (BEAKER) (test 5.55 K/ L 1.78-5.38 fgar=523) LYMPHOCYTES ABSOLUTE COUNT (BEAKER) (test 2.14 K/ L 1.32-3.57 splb=416) MONOCYTES ABSOLUTE COUNT (BEAKER) (test 0.64 K/ L 0.30-0.82 ofrl=224) EOSINOPHILS ABSOLUTE COUNT (BEAKER) (test 0.48 K/ L 0.04-0.54 rdqc=834) BASOPHILS ABSOLUTE COUNT (BEAKER) (test 0.07 K/ L 0.01-0.08 snlr=933) IMMATURE GRANULOCYTES-RELATIVE PERCENT (BEAKER) 0 % 0-1 (test baff=1481) (MANUAL DIFFERENTIAL)2017-03-10 09:09:00 Test Item Value Reference Range Comments TOTAL COUNTED (BEAKER) (test mfld=5037) WBC MORPHOLOGY (BEAKER) (test jtez=350) Normal PLT MORPHOLOGY (BEAKER) (test ydfu=664) Normal RBC MORPHOLOGY (BEAKER) (test jsbm=356) Normal COMPREHENSIVE METABOLIC [id number] 07:30:00 Test Item Value Reference Range Comments TOTAL PROTEIN (BEAKER) 6.8 gm/dL 6.0-8.3 (test nqmn=755) ALBUMIN (BEAKER) (test 3.6 g/dL 3.5-5.0 wdya=2236) ALKALINE PHOSPHATASE 77 U/L 40-150 (BEAKER) (test njht=890) BILIRUBIN TOTAL (BEAKER) 0.6 mg/dL 0.2-1.2 (test yaps=121) SODIUM (BEAKER) (test 136 meq/L 136-145 zdrp=894) POTASSIUM (BEAKER) (test 4.3 meq/L 3.5-5.1 jatj=657) CHLORIDE (BEAKER) (test 105 meq/L 98-107 bgqg=868) CO2 (BEAKER) (test 19 meq/L 22-29 wrkg=909) BLOOD UREA NITROGEN 6 mg/dL 7-21 (BEAKER) (test bopx=847) CREATININE (BEAKER) (test 0.57 mg/dL 0.57-1.25 oizx=509) GLUCOSE RANDOM (BEAKER) 52 mg/dL 70-105 (test dnwv=919) CALCIUM (BEAKER) (test 8.2 mg/dL 8.4-10.2 yovh=918) AST (SGOT) (BEAKER) (test 17 U/L 5-34 skjr=912) ALT (SGPT) (BEAKER) (test 14 U/L 6-55 rhtz=435) EGFR (BEAKER) (test 161 mL/min/1.73 sq ESTIMATED GFR IS NOT apqj=3013) m ACCURATE CREATININE CLEARANCE IN PREDICTING GLOMERULAR FILTRATION RATE. ESTIMATED GFR IS NOT APPLICABLE FOR DIALYSIS PATIENTS. CBC W/PLT COUNT & AUTO [id number] 10:49:00 Test Item Value Reference Range Comments WHITE BLOOD CELL COUNT (BEAKER) (test mqay=429) 6.9 K/ L 3.5-10.5 RED BLOOD CELL COUNT (BEAKER) (test mhdg=882) 3.83 M/ L 4.63-6.08 HEMOGLOBIN (BEAKER) (test ispq=000) 12.5 GM/DL 13.7-17.5 HEMATOCRIT (BEAKER) (test hnsq=526) 36.7 % 40.1-51.0 MEAN CORPUSCULAR VOLUME (BEAKER) (test irsf=129) 95.8 fL 79.0-92.2 MEAN CORPUSCULAR HEMOGLOBIN (BEAKER) (test 32.6 pg 25.7-32.2 eqtq=369) MEAN CORPUSCULAR HEMOGLOBIN CONC (BEAKER) (test 34.1 GM/DL 32.3-36.5 lvnh=359) RED CELL DISTRIBUTION WIDTH (BEAKER) (test 12.4 % 11.6-14.4 iyhs=096) PLATELET COUNT (BEAKER) (test kwvd=608) 267 K/CU MM 150-450 MEAN PLATELET VOLUME (BEAKER) (test fiel=329) 9.7 fL 9.4-12.4 NUCLEATED RED BLOOD CELLS (BEAKER) (test 0 /100 WBC 0-0 zfhw=133) NEUTROPHILS RELATIVE PERCENT (BEAKER) (test 60 % lchj=808) LYMPHOCYTES RELATIVE PERCENT (BEAKER) (test 26 % zcvv=927) MONOCYTES RELATIVE PERCENT (BEAKER) (test 7 % lfbz=768) EOSINOPHILS RELATIVE PERCENT (BEAKER) (test 6 % hatl=107) BASOPHILS RELATIVE PERCENT (BEAKER) (test 1 % vjwd=942) NEUTROPHILS ABSOLUTE COUNT (BEAKER) (test 4.15 K/ L 1.78-5.38 tuke=159) LYMPHOCYTES ABSOLUTE COUNT (BEAKER) (test 1.82 K/ L 1.32-3.57 blwc=506) MONOCYTES ABSOLUTE COUNT (BEAKER) (test 0.47 K/ L 0.30-0.82 brxu=907) EOSINOPHILS ABSOLUTE COUNT (BEAKER) (test 0.38 K/ L 0.04-0.54 mclq=040) BASOPHILS ABSOLUTE COUNT (BEAKER) (test 0.04 K/ L 0.01-0.08 wule=474) COMPREHENSIVE METABOLIC [id number] 10:45:00 Test Item Value Reference Range Comments TOTAL PROTEIN (BEAKER) 6.2 gm/dL 6.0-8.3 (test voka=717) ALBUMIN (BEAKER) (test 3.3 g/dL 3.5-5.0 hwym=2683) ALKALINE PHOSPHATASE 70 U/L 40-150 (BEAKER) (test wnob=331) BILIRUBIN TOTAL (BEAKER) 0.4 mg/dL 0.2-1.2 (test zhfj=069) SODIUM (BEAKER) (test 138 meq/L 136-145 wmmw=755) POTASSIUM (BEAKER) (test 3.5 meq/L 3.5-5.1 tmhr=812) CHLORIDE (BEAKER) (test 109 meq/L 98-107 ypvc=798) CO2 (BEAKER) (test 23 meq/L 22-29 qsht=364) BLOOD UREA NITROGEN 5 mg/dL 7-21 (BEAKER) (test uwld=722) CREATININE (BEAKER) (test 0.54 mg/dL 0.57-1.25 ybdh=294) GLUCOSE RANDOM (BEAKER) 77 mg/dL 70-105 (test cexb=341) CALCIUM (BEAKER) (test 7.6 mg/dL 8.4-10.2 koct=512) AST (SGOT) (BEAKER) (test 18 U/L 5-34 ddob=530) ALT (SGPT) (BEAKER) (test 15 U/L 6-55 infa=143) EGFR (BEAKER) (test 171 mL/min/1.73 sq ESTIMATED GFR IS NOT bbzt=9187) m ACCURATE CREATININE CLEARANCE IN PREDICTING GLOMERULAR FILTRATION RATE. ESTIMATED GFR IS NOT APPLICABLE FOR DIALYSIS PATIENTS. [id number] 10:29:00 Test Item Value Reference Range Comments TRIGLYCERIDES (BEAKER) (test vuvk=713) 58 mg/dL TRIGLYCERIDE REFERENCE RANGELow Risk <150Borderline Risk 150-199High Risk 200-499Very High Risk>=[id number] 10:29:00 Test Item Value Reference Range Comments MAGNESIUM (BEAKER) (test qbij=619) 1.4 mg/dL 1.6-2.6 [id number] 10:29:00 Test Item Value Reference Range Comments LIPASE (BEAKER) (test qbyv=616) 536 U/L 8-78 PROTHROMBIN [id number] 10:22:00 Test Item Value Reference Range Comments PROTIME (BEAKER) (test eebg=119) 14.3 seconds 11.7-14.7 INR (BEAKER) (test zmde=773) 1.1 <=5.9 RECOMMENDED COUMADIN/WARFARIN INR THERAPY RANGESSTANDARD DOSE: 2.0 - 3.0 Includes: PROPHYLAXIS forvenous thrombosis, systemic embolization; TREATMENT for venous thrombosis and/or pulmonary embolus.HIGH RISK: Target INR is 2.5-3.5 for patients with mechanical heart valves.
[2018-03-24 17:49] LABS: Absolute Lymphocytes (CBC) 1.3 K/uL (0.7-4.9); Absolute Monocytes 0.6 K/uL (0.1-1.3); Absolute Neutrophil 3.9 K/uL (1.8-8.0); Basophils % 0.3 % (0-1.3); Eosinophils % 0.1 % (0-4.4); Hematocrit 41.3 % (39.6-49.0); Lymphocytes % 21.9 % (15.3-44.8); MPV 8.4 fL (7.6-11.3); Monocytes % 9.8 % (3.3-12.3); RBC Red Blood Cell Count 4.29 M/uL (4.33-5.43)
[2018-03-24] MEDS ORDERED: ONDANSETRON 4 MG/2 ML VIAL ONE (17:52)
[2018-03-24] MEDS ORDERED: NA CHLORIDE 0.9% 1,000 ML ONE (17:52)
[2018-03-24 18:04] LABS: ALT/SGPT 83 U/L (12-78); AST/SGOT 73 U/L (15-37); Albumin 4.2 g/dL (3.4-5.0); Alkaline Phosphatase 92 U/L (45-117); BUN Blood Urea Nitrogen 2 mg/dL (7-18); Bicarbonate 27 mmol/L (21-32); Bilirubin Direct 0.3 mg/dL (0-0.2); Bilirubin Total 0.8 mg/dL (0.2-1.0); Glucose Level 101 mg/dL (74-106); Lipase 162 U/L (73-393); Potassium 3.7 mmol/L (3.5-5.1); Protein, Total 8.2 g/dL (6.4-8.2); Sodium Level 138 mmol/L (136-145)
[2018-03-24] MEDS ORDERED: FENTANYL CITR 100 MCG/2 ML ONE (18:21)
--- NOTE | 2018-03-24 18:59 | ER ---
Nurse's Notes [facility] Name: Ankit Rosales Age: 37 yrs Sex: Male : 1980 Arrival Date: 03/24/2018 Time: 17:17 Bed 23 Private MD: Diagnosis: Alcohol abuse;Alcohol-induced chronic pancreatitis Presentation: 03/24 17:17 Presenting complaint: EMS states: HE HAS PANCREATITIS. HE WAS HERE YESTERDAY FOR THE rv SAME REASON, RLQ PAIN 01/07. HE WAS DISCHARGED WITH PRESCRIPTION. HE DID NOT TAKE ANY MEDS. HE IS ALSO COMPLAINING OF BLOOD IN STOOL. Transition of care: patient was not received from another setting of care. Onset of symptoms was March 23, 2018 at 21:00. Risk Assessment: Do you want to hurt yourself or someone else? Patient reports no desire to harm self or others. Initial Sepsis Screen: Does the patient meet any 2 criteria? No. Patient's initial sepsis screen is negative. Does the patient have a suspected source of infection? No. Patient's initial sepsis screen is negative. Care prior to arrival: None. 17:17 Method Of Arrival: EMS: [facility] rv 17:17 Acuity: KRAIG 3 rv Triage Assessment: 17:22 General: Appears in no apparent distress. uncomfortable, Behavior is calm, cooperative. rv Pain: Complains of pain in abdomen. Historical: - Allergies: 17:20 NKDA; rv - Home Meds: 17:20 None [Active]; rv - PMHx: 17:20 Cirrhosis; GALLSTONES; Pancreatitis; left leg DVT; rv - PSHx: 17:20 TUBE COILS; rv - Immunization history:: Adult Immunizations up to date. - Social history:: Smoking status: Patient uses tobacco products, smokes one pack cigarettes per day. - Ebola Screening: : Patient negative for fever greater than or equal to 101.5 degrees Fahrenheit, and additional compatible Ebola Virus Disease symptoms Patient denies exposure to infectious person Patient denies travel to an Ebola-affected area in the 21 days before illness onset. Screenin:21 Abuse screen: Denies threats or abuse. Denies injuries from another. Nutritional rv screening: No deficits noted. Tuberculosis screening: No symptoms or risk factors identified. Fall Risk None identified. Assessment: 17:23 General: Appears in no apparent distress. uncomfortable, Behavior is calm, cooperative. rv Pain: Complains of pain in abdomen. Neuro: Level of Consciousness is awake, alert, obeys commands, Oriented to person, place, time, situation. Cardiovascular: Capillary refill < 3 seconds. Respiratory: Airway is patent. GI: No signs and/or symptoms were reported involving the gastrointestinal system. : No signs and/or symptoms were reported regarding the genitourinary system. EENT: No signs and/or symptoms were reported regarding the EENT system. Derm: Skin is intact. Musculoskeletal: No signs and/or symptoms reported regarding the musculoskeletal system. 18:49 Reassessment: Patient appears in no apparent distress at this time. rv Vital Signs: 17:18 BP 142 / 97; rv 17:21 Pulse 104 MON; Resp 18 S; Pulse Ox 99% on R/A; rv 17:21 Weight 54.43 kg (R); rv 18:00 BP 131 / 106; Pulse 100 MON; Resp 17 S; Pulse Ox 97% on R/A; rv 18:30 BP 147 / 95; Pulse 92 MON; Resp 17 S; Pulse Ox 98% on R/A; rv 19:44 BP 138 / 91; Pulse 89; Resp 17; Pulse Ox 99% on R/A; rv ED Course: 17:17 Patient arrived in ED. rv 17:19 Triage completed. rv 17:22 Jluis Martinez NP is PHCP. pm1 17:22 Gera Roblero MD is Attending Physician. pm1 17:23 Arm band placed on left wrist. rv 17:24 Patient has correct armband on for positive identification. Bed in low position. Call rv light in reach. Side rails up X 1. Pulse ox on. NIBP on. 17:40 Inserted saline lock: 18 gauge in right forearm, using aseptic technique. Blood rv collected. 17:40 Initial lab(s) drawn, by me, sent to lab. rv 17:54 Basic Metabolic Panel Sent. rv 17:54 CBC with Diff Sent. rv 17:54 Creatinine for Radiology Sent. rv 17:54 Hepatic Function Sent. rv 17:55 Lipase Sent. rv 19:46 No provider procedures requiring assistance completed. IV discontinued, bleeding rv controlled, No redness/swelling at site. Pressure dressing applied. Administered Medications: 17:40 Drug: NS 0.9% 1000 ml Route: IV; Rate: 1 bolus; Site: right forearm; rv 18:16 Follow up: IV Status: Completed infusion rv 17:40 Drug: Zofran 4 mg Route: IVP; Site: right forearm; rv 18:15 Follow up: Response: Nausea is decreased rv 18:15 Drug: fentaNYL (PF) 25 mcg Route: IVP; Site: right forearm; rv 19:46 Follow up: Response: Pain is decreased rv 19:38 Drug: GI Cocktail without - (Maalox Suspension 30 ml, Lidocaine Liquid 2 % 15 rv ml) Route: PO; 19:46 Follow up: Response: Medication administered at discharge. rv 19:38 Drug: fentaNYL (PF) 25 mcg Route: IVP; Site: right forearm; rv 19:46 Follow up: Response: Medication administered at discharge. rv 19:38 CANCELLED (Duplicate Order): fentaNYL (PF) 25 mcg IVP once rv Outcome: 18:59 Discharge ordered by MD. pm1 19:47 Discharged to home ambulatory. rv 19:47 Condition: good 19:47 Discharge instructions given to patient, Instructed on discharge instructions, follow up and referral plans. Demonstrated understanding of instructions, follow-up care. 19:47 Patient left the ED. rv Signatures: Jluis Martinez NP COMMUNITY DEVELOPMENT TECHNICIAN pm1 Osmin Herrera, RN RN rv
--- NOTE | 2018-03-24 19:00 | EDPHYS ---
Physician Documentation [facility] Name: Ankit Rosales Age: 37 yrs Sex: Male : 1980 Arrival Date: 03/24/2018 Time: 17:17 Bed 23 Private MD: ED Physician Gera Roblero HPI: 03/24 18:00 This 37 yrs old Male presents to ER via EMS with complaints of Abdominal pain.pm1 18:00 The patient presents with abdominal pain in the upper abdomen. Onset: The pm1 symptoms/episode began/occurred today. The symptoms do not radiate. Associated signs and symptoms: Pertinent positives: nausea and vomiting, Pertinent negatives: chest pain, diarrhea, dysuria, fever, shortness of breath. The symptoms are described as sharp. Modifying factors: The symptoms are alleviated by nothing, the symptoms are aggravated by alcohol. Severity of pain: in the emergency department the pain is actually worse. The patient has experienced similar episodes in the past, chronically. The patient has been recently seen at the [facility] Emergency Department, yesterday, for similar complaints labs were performed, was given a prescription for an antiemetic. Historical: - Allergies: 17:20 NKDA; rv - Home Meds: 17:20 None [Active]; rv - PMHx: 17:20 Cirrhosis; GALLSTONES; Pancreatitis; left leg DVT; rv - PSHx: 17:20 TUBE COILS; rv - Immunization history:: Adult Immunizations up to date. - Social history:: Smoking status: Patient uses tobacco products, smokes one pack cigarettes per day. - Ebola Screening: : Patient negative for fever greater than or equal to 101.5 degrees Fahrenheit, and additional compatible Ebola Virus Disease symptoms Patient denies exposure to infectious person Patient denies travel to an Ebola-affected area in the 21 days before illness onset. ROS: 18:00 Constitutional: Negative for fever, chills, and weight loss, Eyes: Negative for injury, pm1 pain, redness, and discharge, ENT: Negative for injury, pain, and discharge, Neck: Negative for injury, pain, and swelling, Cardiovascular: Negative for chest pain, palpitations, and edema, Respiratory: Negative for shortness of breath, cough, wheezing, and pleuritic chest pain. 18:00 Back: Negative for injury and pain, : Negative for injury, bleeding, discharge, and swelling, MS/Extremity: Negative for injury and deformity, Skin: Negative for injury, rash, and discoloration, Neuro: Negative for headache, weakness, numbness, tingling, and seizure. 18:00 Abdomen/GI: Positive for abdominal pain, nausea and vomiting, Negative for diarrhea. Exam: 18:00 Constitutional: This is a well developed, well nourished patient who is awake, alert, pm1 and in no acute distress. Head/Face: Normocephalic, atraumatic. Eyes: Pupils equal round and reactive to light, extra-ocular motions intact. Lids and lashes normal. Conjunctiva and sclera are non-icteric and not injected. Cornea within normal limits. Periorbital areas with no swelling, redness, or edema. ENT: Nares patent. No nasal discharge, no septal abnormalities noted. Tympanic membranes are normal and external auditory canals are clear. Oropharynx with no redness, swelling, or masses, exudates, or evidence of obstruction, uvula midline. Mucous membranes moist. Neck: Trachea midline, no thyromegaly or masses palpated, and no cervical lymphadenopathy. Supple, full range of motion without nuchal rigidity, or vertebral point tenderness. No Meningismus. Chest/axilla: Normal chest wall appearance and motion. Nontender with no deformity. No lesions are appreciated. Cardiovascular: Regular rate and rhythm with a normal S1 and S2. No gallops, murmurs, or rubs. Normal PMI, no JVD. No pulse deficits. Respiratory: Lungs have equal breath sounds bilaterally, clear to auscultation and percussion. No rales, rhonchi or wheezes noted. No increased work of breathing, no retractions or nasal flaring. Abdomen/GI: Soft, non-tender, with normal bowel sounds. No distension or tympany. No guarding or rebound. No evidence of tenderness throughout. Back: No spinal tenderness. No costovertebral tenderness. Full range of motion. Skin: Warm, dry with normal turgor. Normal color with no rashes, no lesions, and no evidence of cellulitis. MS/ Extremity: Pulses equal, no cyanosis. Neurovascular intact. Full, normal range of motion. 18:00 Neuro: Orientation: is normal, Motor: is normal, Sensation: is normal, no obvious gross deficits, Gait: is steady, at a normal pace, without difficulty. Vital Signs: 17:18 BP 142 / 97; rv 17:21 Pulse 104 MON; Resp 18 S; Pulse Ox 99% on R/A; rv 17:21 Weight 54.43 kg (R); rv 18:00 BP 131 / 106; Pulse 100 MON; Resp 17 S; Pulse Ox 97% on R/A; rv 18:30 BP 147 / 95; Pulse 92 MON; Resp 17 S; Pulse Ox 98% on R/A; rv 19:44 BP 138 / 91; Pulse 89; Resp 17; Pulse Ox 99% on R/A; rv MDM: 17:24 Patient medically screened. pm1 18:58 Data reviewed: vital signs. Data interpreted: Pulse oximetry: on room air is 98 %. pm1 Interpretation: normal. Counseling: I had a detailed discussion with the patient and/or guardian regarding: the historical points, exam findings, and any diagnostic results supporting the discharge/admit diagnosis, lab results, the need for outpatient follow up, to return to the emergency department if symptoms worsen or persist or if there are any questions or concerns that arise at home. 03/24 17:20 Order name: Basic Metabolic Panel; Complete Time: 18:10 tw4 03/24 17:20 Order name: CBC with Diff; Complete Time: 18:10 tw4 03/24 17:20 Order name: Creatinine for Radiology; Complete Time: 18:10 tw4 03/24 17:20 Order name: Hepatic Function; Complete Time: 18:10 tw4 03/24 17:20 Order name: Lipase; Complete Time: 18:10 tw4 03/24 17:29 Order name: ETOH Level; Complete Time: 18:33 pm1 03/24 17:20 Order name: IV Saline Lock; Complete Time: 17:54 tw4 03/24 17:20 Order name: Labs collected and sent; Complete Time: 17:54 tw4 Administered Medications: 17:40 Drug: NS 0.9% 1000 ml Route: IV; Rate: 1 bolus; Site: right forearm; rv 18:16 Follow up: IV Status: Completed infusion rv 17:40 Drug: Zofran 4 mg Route: IVP; Site: right forearm; rv 18:15 Follow up: Response: Nausea is decreased rv 18:15 Drug: fentaNYL (PF) 25 mcg Route: IVP; Site: right forearm; rv 19:46 Follow up: Response: Pain is decreased rv 19:38 Drug: GI Cocktail without - (Maalox Suspension 30 ml, Lidocaine Liquid 2 % 15 rv ml) Route: PO; 19:46 Follow up: Response: Medication administered at discharge. rv 19:38 Drug: fentaNYL (PF) 25 mcg Route: IVP; Site: right forearm; rv 19:46 Follow up: Response: Medication administered at discharge. rv 19:38 CANCELLED (Duplicate Order): fentaNYL (PF) 25 mcg IVP once rv Disposition: 21:29 Co-signature as Attending Physician, Gera Roblero MD I agree with the assessment and tw4 plan of care. Disposition: 03/24/18 18:59 Discharged to Home. Impression: Alcohol abuse, Alcohol-induced chronic pancreatitis. - Condition is Stable. - Discharge Instructions: Finding Treatment for Addiction, Chronic Pancreatitis, Form - Return To Work. - Medication Reconciliation Form, Thank You Letter, Antibiotic Education, Work release form form. - Follow up: Emergency Department; When: As needed; Reason: Worsening of condition. Follow up: Private Physician; When: 2 - 3 days; Reason: Recheck today's complaints, Continuance of care, Re-evaluation by your physician. - Problem is new. - Symptoms have improved. Signatures: Dispatcher [employer] [facility] Jluis Martinez, POLITICAL SCIENCE RESEARCH ASSISTANT POLITICAL SCIENCE RESEARCH ASSISTANT pm1 Gera Roblero MD MD tw4 Osmin Herrera RN RN rv Corrections: (The following items were deleted from the chart) 19:38 19:38 fentaNYL (PF) 25 mcg IVP once ordered. rv rv 19:47 18:59 03/24/2018 18:59 Discharged to Home. Impression: Alcohol abuse; Alcohol-induced rv chronic pancreatitis. Condition is Stable. Forms are Medication Reconciliation Form, Thank You Letter, Antibiotic Education, Prescription Opioid Use. Follow up: Emergency Department; When: As needed; Reason: Worsening of condition. Follow up: Private Physician; When: 2 - 3 days; Reason: Recheck today's complaints, Continuance of care, Re-evaluation by your physician. Problem is new. Symptoms have improved. pm1
[2018-03-24] MEDS ORDERED: MAGNE/ALUM HYDROXD 30 ML UCUP ONE (19:40)
[2018-03-24] MEDS ORDERED: LIDOCAINE VISCOUS 2% SOLN 15 ML UDC ONE (19:40)
[2018-03-24 21:08] VITALS: BP 138/91; O2SAT 99
== END 2018-03-24 19:47 | disposition home or self-care (01) ==
LOC: ER 17:15
DX: K86.0 Alcohol-induced chronic pancreatitis (principal); F10.10 Alcohol abuse, uncomplicated; F17.210 Nicotine dependence, cigarettes, uncomplicated; Z86.718 Personal history of other venous thrombosis and embolism
CPT/HCPCS: 36415; 80048; 80076; 80320; 83690; 85025; 96361; 96374; 96375; 99284; J2405; J3010; J7030

== ENCOUNTER 2018-04-29 12:36 | Emergency (ER) | payer SELFPAY ==
--- OUTSIDE RECORDS SUMMARY | 2018-04-29 12:38 | XMS REPORT | Clinical Summary ---
:1980 Author Organization [facility] Address [address] [place] [address] Care Team Providers Name Role Phone Unavailable [...] Date Type Specialty Care Team Description 09/14/2017 [facility] General Internal Zaida Martinez MD Alcohol abuse (Primary Dx); - Encounter Medicine Yahaira, Cystic mass of pancreas; 09/19/2017 Dario Pancreatic pseudocyst/cyst; MD Tavares Hemorrhagic pancreatitis Vanda Norton MD Shiekh Sroujieh, Mona Ahmad, MD 09/08/2017 Anesthesia Event Gastroenterology Shikha Motley MD 09/08/2017 Surgery Gastroenterology Bessy Hernandez UPPER ENDOSCOPY MD Fredi 09/01/2017 Orders Only General Internal Medicine 08/31/2017 [facility] Talisha Abad Alcohol abuse; - Encounter MD Adriana Cystic mass of pancreas; 09/09/2017 Shamsee, History of DVT (deep vein thrombosis); Caden-Dannie Alcohol-induced acute pancreatitis without infection or necrosis; MD Nayely Smoker; Larry Rodriguez Portal vein thrombosis MD Connor Bishop Sahar, MD Neela, Rekha Srinivas, MD 05/19/2017 Anesthesia Event Gastroenterology Dorota Cortes MD 05/13/2017 [facility] Internal Ulysses Garcia, Alcohol-induced acute pancreatitis, unspecified complication status; - Encounter Medicine Alcohol abuse; 05/20/2017 Rafaela Samson, Cystic mass of pancreas; Smoker; Diomedes Alvarado Thrombocytosis (HCC); MD Lul Alcohol-induced acute pancreatitis without infection or necrosis; Smoking after 04/28/2017 Family History Medical History Relation Name Comments [...] PROCEDURE - 05/22/2017 12:43 ENDOSCOPY SCAN PM [employer] COMPREHENSIVE Routine 05/19/2017 12:54 Results for this METABOLIC PANEL PM [employer] procedure are in the results section. COMPREHENSIVE Routine 05/17/2017 4:26 Results for this METABOLIC PANEL AM [employer] procedure are in the results section. CBC (HEMOGRAM ONLY) Routine 05/17/2017 4:26 Results for this AM [employer] procedure are in the results section. CBC W/PLT COUNT & AUTO CHRIS 05/16/2017 11:05 Results for this DIFFERENTIAL AM [employer] procedure are in the results section. CBC W/PLT COUNT & AUTO CHRIS 05/16/2017 11:05 Results for this DIFFERENTIAL AM [employer] procedure are in the results section. HEPATIC FUNCTION PANEL CHRIS 05/16/2017 10:54 Results for this AM [employer] procedure are in the results section. BASIC METABOLIC PANEL Routine 05/16/2017 4:48 Results for this (7) AM [employer] procedure are in the results section. CBC (HEMOGRAM ONLY) Routine 05/15/2017 3:58 Results for this AM [employer] procedure are in the results section. BASIC METABOLIC PANEL Routine 05/15/2017 3:58 Results for this (7) AM [employer] procedure are in the results section. LIPASE Routine 05/14/2017 4:08 Results for this AM [employer] procedure are in the results section. CBC (HEMOGRAM ONLY) Routine 05/14/2017 4:08 Results for this AM [employer] procedure are in the results section. LIPID PANEL Routine 05/14/2017 4:08 Results for this AM [employer] procedure are in the results section. HEPATIC FUNCTION PANEL Routine 05/14/2017 4:08 Results for this AM [employer] procedure are in the results section. BASIC METABOLIC PANEL Routine 05/14/2017 4:08 Results for this (7) AM [employer] procedure are in the results section. after 04/28/2017 Results Calcium, Ionized (09/19/2017 6:02 AM CDT)Only the most recent of3 resultswithin the time period is included. Calcium, Ion 1.11 (L) 1.12 - 1.27 mmol/L [facility] pH, Blood 7.40 [facility] Specimen Blood - Line, Venous Performing Organization Address [facility] Phone Number [address] [address] CENTER Phosphorus (09/19/2017 6:02 AM CDT)Only the most recent of10 resultswithin the time period is included. Phosphorus 3.0 2.3 - 4.7 mg/dL [facility] Specimen Blood - Line, Venous Performing Organization Address [facility] Phone Number [address] [address] [phone] CENTER Magnesium (09/19/2017 6:02 AM CDT)Only the most recent of10 resultswithin the time period is included. Magnesium 2.0 1.6 - 2.6 mg/dL [facility] Specimen Blood - Line, Venous Performing Organization Address [facility] Phone Number [address] [address] [phone] CENTER Basic Metabolic Panel (09/19/2017 6:02 AM CDT)Only the most recent of18 resultswithin the time period is included. Sodium 138 136 - 145 meq/L [facility] Potassium 3.8 3.5 - 5.1 meq/L [facility] Chloride 109 (H) 98 - 107 meq/L [facility] CO2 22 22 - 29 meq/L [facility] BUN 10 7 - 21 mg/dL [facility] Creatinine 0.53 (L) 0.57 - 1.25 mg/dL [facility] Glucose 88 70 - 105 mg/dL [facility] Calcium 8.5 8.4 - 10.2 mg/dL [facility] EGFR 174Comment: ESTIMATED GFR IS mL/min/1.73 sq m [facility] NOT ACCURATE CREATININE [facility]ICAL [facility]ENTER CLEARANCE IN PREDICTING GLOMERULAR FILTRATION RATE. ESTIMATED GFR IS NOT APPLICABLE FOR DIALYSIS PATIENTS. Specimen Blood - Line, Venous Performing Organization Address City/State/Zipcode Phone Number [facility] [address] [place] [address] CENTER CBC with platelet count + automated diff (09/17/2017 3:54 AM CDT)Only the most recent of12 resultswithin the time period is included. WBC 10.1 3.5 - 10.5 K/L [facility] RBC 4.16 (L) 4.63 - 6.08 M/L [facility] Hemoglobin 12.6 (L) 13.7 - 17.5 GM/DL [facility] Hematocrit 37.3 (L) 40.1 - 51.0 % [facility] MCV 89.7 79.0 - 92.2 fL [facility] MCH 30.3 25.7 - 32.2 pg [facility] MCHC 33.8 32.3 - 36.5 GM/DL [facility] RDW 14.0 11.6 - 14.4 % [facility] Platelets 541 (H) 150 - 450 K/CU MM [facility] MPV 9.1 (L) 9.4 - 12.4 fL [facility] nRBC 0 0 - 0 /100 WBC [facility] % Neutros 66 % [facility] % Lymphs 20 % [facility] % Monos 10 % [facility] % Eos 3 % [facility] % Baso 1 % [facility] # Neutros 6.65 (H) 1.78 - 5.38 K/L [facility] # Lymphs 2.05 1.32 - 3.57 K/L [facility] # Monos 1.03 (H) 0.30 - 0.82 K/L [facility] # Eos 0.26 0.04 - 0.54 K/L [facility] # Baso 0.10 (H) 0.01 - 0.08 K/L [facility] Immature Granulocytes-Relative 0 0 - 1 % [facility] Specimen Blood - Line, Venous Performing Organization Address City/State/Zipcode Phone Number [facility] [address] [place] [address] CENTER US abdominal with doppler (09/17/2017 3:00 AM CDT) Narrative Performed At FINAL REPORT [email or web address] Comparison exam: Right upper quadrant ultrasound 09/01/2017. [...] MD Report Verified Date/Time:09/17/2017 04:01:12 Reading Location: [address] Ortho Consult Reading Room Procedure Note Interface, [...] Report Verified Date/Time: 09/17/2017 04:01:12 Reading Location: [place] [id number] Ortho Consult Reading Room Performing Organization Address City/State/Zipcode Phone Number [facility] IR Embolization Arterial (09/16/2017 6:00 PM CDT) Narrative Performed At FINAL REPORT [facility] Mesenteric angiogram and embolization History: 37-year-old male with hemorrhagic pancreatic pseudocyst. Modality: Ultrasound and fluoroscopy. Sedation: Moderate sedation was administered. 2.5 mg of Versed and 125 mcg of fentanyl IV was used for moderate sedation monitored under my direction. Total intra-service time of sedation [id number]. The patient's vital signs were monitored throughout the procedure and recorded in the patient's medical record by the nurse. Anesthesia:Two percent Lidocaine without epinephrine. Approach:Right common femoral artery. Estimated blood loss:< 5 cc. Specimen: None. engine lathe operator: Michael Ortega MD. Social Service Coordinator: None.. Fluoroscopy Time: 31.7 min. Reference Air [...] over 0.035 Bentson wire for a 5 Luxembourger by 10 cm vascular sheath. A 5 Luxembourger Sutton B catheter was used to select the celiac trunk and SMA for multiple DSA runs. The Sutton catheter was then remanipulated into the celiac trunk. Next, using a 2.4 Luxembourger microcatheter and 0.016 inch microwire, the gastroduodenal artery was cannulated. Subsequently, the catheter was manipulated into the feeding branch supplying the abnormal area of hyperemia/vessel irregularity. From this location, embolization was performed using Interlock microcoils. The microcatheter was retracted into the GDA proximally and postdilatation DSA was performed. Next, the Sutton base catheter was manipulated into the SMA. Using a 2. Luxembourger directional microcatheter and 0.014 inch microwire, the [...] MD Report Verified Date/Time:09/20/2017 16:25:06 Reading Location: [place] [address] Angio Body Reading Room Procedure Note Interface, [...] blood loss: < 5 cc. Specimen: None. engine lathe operator: Michael Ortega MD. Social Service Coordinator: None.. Fluoroscopy Time: 31.7 min. Reference Air [...] over 0.035 Bentson wire for a 5 Luxembourger by 10 cm vascular sheath. A 5 Luxembourger Sutton B catheter was used to select the celiac trunk and SMA for multiple DSA runs. The Sutton catheter was then remanipulated into the celiac trunk. Next, using a 2.4 Luxembourger microcatheter and 0.016 inch microwire, the gastroduodenal artery was cannulated. Subsequently, the catheter was manipulated into the feeding branch supplying the abnormal area of hyperemia/vessel irregularity. From this location, embolization was performed using Interlock microcoils. The microcatheter was retracted into the GDA proximally and postdilatation DSA was performed. Next, the Sutton base catheter was manipulated into the SMA. Using a 2. Luxembourger directional microcatheter and 0.014 inch microwire, the [...] and SMA as detailed above. Signed: Michael Oretga MD Report Verified Date/Time: 09/20/2017 16:25:06 Reading Location: [place] [address] Angio Body Reading Room Performing Organization Address City/State/Zipcode Phone Number GE RIS C-Reactive Protein (09/16/2017 12:32 PM CDT)Only the most recent of2 resultswithin the time period is included. CRP 0.97 (H) 0.00 - 0.50 mg/dL [facility] Specimen Blood - Central Venous Line Performing Organization Address City/[facility]/Zipcode Phone Number [address] [address] CENTER PT/aPTT (09/16/2017 10:54 AM CDT) Protime 16.2 (H) 11.7 - 14.7 seconds [facility] INR 1.3 <=5.9 [facility] PTT 30.2 22.5 - 36.0 seconds [facility] Specimen Blood - Central Venous Line Narrative Performed At [facility] RECOMMENDED COUMADIN/WARFARIN INR THERAPY RANGES STANDARD DOSE: 2.0 - 3.0 Includes: PROPHYLAXIS for venous thrombosis, systemic embolization; TREATMENT for venous thrombosis and/or pulmonary embolus. HIGH RISK: Target INR is 2.5-3.5 for patients with mechanical heart valves. Performing Organization Address City/State/Zipcode Phone Number [address] [address] CENTER Triglycerides (09/16/2017 4:20 AM CDT) Triglycerides 78 mg/dL [facility] Specimen Blood - Line, Venous Narrative Performed At [facility] TRIGLYCERIDE REFERENCE RANGE Low Risk<150 Borderline Risk 150-199 High Axub538-424 Very High Risk >=500 Performing Organization Address [facility] Phone Number [address] [address] CENTER Lipase (09/16/2017 4:20 AM CDT)Only the most recent of5 resultswithin the time period is included. Lipase 114 (H) 8 - 78 U/L [facility] Specimen Blood - Line, Venous Performing Organization Address [facility] Phone Number [address] [address] [phone] [place] Hepatic function panel (09/16/2017 4:20 AM CDT)Only the most recent of6 resultswithin the time period is included. Protein, Total 6.5 6.0 - 8.3 gm/dL [facility] Albumin 3.7 3.5 - 5.0 g/dL [facility] Total Bilirubin 0.3 0.2 - 1.2 mg/dL [facility] Bilirubin, Direct 0.1 0.1 - 0.5 mg/dL [facility] Alkaline Phosphatase 79 40 - 150 U/L [facility] AST 14 5 - 34 U/L [facility] ALT 9 6 - 55 U/L [facility] Specimen Blood - Line, Venous Performing Organization Address City/State/Zipcode Phone Number [facility] [address] [place] [address] CENTER XR chest 1 view portable / bedside (09/15/2017 7:43 PM CDT) Narrative Performed At FINAL REPORT GE RIS History: PICC line placement. Comparison: None. Findings: 2 frontal views of the chest are submitted. A left PICC line tip overlies the SVC. The cardiomediastinal contours are unremarkable. There is no focal consolidation, pneumothorax, large pleural effusion or evidence of overt pulmonary edema. There is no acute bony abnormality. Signed: George Keys MD Report Verified Date/Time:09/15/2017 19:53:01 Reading Location: [address] Reading Room Procedure Note Interface, External [...] Report Verified Date/Time: 09/15/2017 19:53:01 Reading Location: [address] Reading Room Performing Organization Address City/[facility]/Zipcode Phone Number GE [facility] PERIPHERAL VASCULAR REPORT - SCAN (09/15/2017 5:20 PM CDT) Narrative Performed At Venous doppler legs bilateral (09/15/2017 2:49 PM CDT) Ejection Fraction [facility] MKCKESSON CPACS Impressions Performed At Right Impression [facility] MK[facility] CPACS 1. [...] PV LAB - Lower Extremities DVT Study [facility] Demographics Patient NameANKIT ROSALES Date of Study09/15/2017 37 Visit [id number] nder Male of Birth1980 Number Referring Julissa AlfonsoS[facility] Centerchasidyhyun, Room [id number] Physician Instrument And Control Technician David Chan. Interpreting Prema Gabriel RVT, Greg [...] of Study 09/15/2017 Age 37 Visit Number [id number] Gender Male Date of 1980 Number Referring [facility]issa [facility], Room Number 2161 Physician Instrument And Control Technician David Chan. Interpreting Prema Gabriel RVT, [facility] Physician , [facility] Procedure Type of Study: Veins: Lower Extremities [...] City/State/Zipcode Phone Number [facility] Pancreatic elastase, fecal (09/15/2017 10:36 AM CDT) [...] Lab [facility] [address] [place] [address] Enrique Holliday MD, PhD, GIDEON Performing Organization Address [facility] Phone Number [place] [address] INCORPORATED [address] [facility] Peripheral Blood Smear - Path Review (09/14/2017 4:37 AM CDT) Pathologist Review Thrombocytosis. No [facility] circulating blasts or MEDICAL CENTER increased schistocytes. Clinical follow up recommended. Pathologist: Enoch Saba, [facility] Miladis(electronic signature) [facility] Specimen Blood Performing Organization Address [facility] Phone Number [address] [address] CENTER Vitamin B12 and Folate (09/14/2017 4:37 AM CDT) Vitamin B12 527 213 - 816 pg/mL [facility] Folate 12.3 >=7.0 ng/mL [facility] Specimen Blood Performing Organization Address [facility] Phone Number [address] [address] CENTER RHYTHM STRIP - SCAN (09/10/2017 10:40 AM CDT) Narrative Performed At aPTT (09/09/2017 9:37 AM CDT)Only the most recent of9 resultswithin the time period is included. PTT 44.5 (H) 22.5 - 36.0 seconds [facility] Specimen Blood Performing Organization Address [facility] Phone Number [address] [address] [place] REPORT OF PROCEDURE - ENDOSCOPY URL (09/08/2017 5:47 PM CDT) Narrative Performed At FINE NEEDLE ASPIRATE (FNA) REQUEST (09/08/2017 5:43 PM CDT) Cytology See Separate Report [facility] Specimen Fine Needle Aspirate - Pancreas Performing Organization Address City/State/Zipcode Phone Number [address] [phone] [place] Fine Needle Aspirate by Clinician (09/08/2017 5:43 PM CDT) Case Report Medical Cytology Report Case: [id number] [facility] Authorizing Provider:Bessy Hernandez MDCollected: 09/08/2017 1743 [facility] Ordering Location: [address] Received: 09/08/2017 1814 Service Pathologist: Mir Anthony MD Specimen:Pancreas DIAGNOSIS PANCREAS HEAD CYSTIC LESION FNA BY CLINICIAN (CYTOSPINS AND CELL BLOCK OF ASPIRATE): [facility] - NO MALIGNANT CELLS IDENTIFIED [facility] - The mucin stain shows focal weak staining Signing Pathologist Direct Phone Line: [phone] COMMENT The cell block shows [facility] non-inflammed pancreatic [facility] acinar tissue. CPT Code(s) 02243, 03984, 48255 [facility] CLINICAL DATA (4.9 X 4.8 cm) Cystic [facility] lesion in the pancreatic [facility] head SPECIMEN SOURCE PANCREAS HEAD CYSTIC [facility] LESION FNA [facility] GROSS DESCRIPTION 25 mls in cytorich red; 4 cytospins, 1 mucin stain, cell block [facility] Collected: [id number] [facility] Received: [id number] Technical component was [facility] performed at [place], Department of [facility] Pathology, [address] [place] [address], Professional component was [facility] performed at [place], Department of [facility] Pathology, [address] [place] [address], [place] [address], Specimen Fine Needle Aspirate - Pancreas Narrative Performed At Performing Organization Address City/State/Zipcode Phone Number [facility] [address] [place] [address] abd/pelvis - pancreas evaluation (09/04/2017 12:20 AM CDT) Narrative Performed At FINAL REPORT [email or web address] CT, ABDOMEN - PELVIS, PANCREAS EVALUATION INDICATION: [...] MD Report Verified Date/Time:09/04/2017 00:22:52 Reading Location: [address] Reading Room Procedure Note Interface, External [...] Report Verified Date/Time: 09/04/2017 00:22:52 Reading Location: [address] Reading Room Performing Organization Address City/State/Zipcode Phone Number [facility] POC-Glucose meter (09/02/2017 7:29 AM CDT)Only the most recent of2 resultswithin the time period is included. POC-Glucose Meter 140 (H)Comment: TESTED AT 70 - 110 mg/dL [facility] [address] [facility] [address] Specimen Blood Performing Organization Address City/[facility]/Zipcode Phone Number [address] [phone] CENTER ECG 12 lead (09/01/2017 6:18 PM CDT) Narrative Performed At Ventricular Rate 77 BPM GE MUSE Atrial Rate 77 BPM P-R Interval 162 ms QRS Duration 98 ms Q-T Interval 404 ms QTC Calculation(Bazett) 457 ms P [place] -8 degrees R [place] 30 degrees T [place] -1 degrees Normal sinus rhythm RSR' or QR pattern in V1 suggests right ventricular conduction delay Cannot rule out Anterior infarct , age undetermined Abnormal ECG No previous ECGs available Confirmed by MD [place] ([id number]) on 09/02/2017 2:25:25 PM Procedure Note Interface, External Ris In - 09/02/2017 2:25 PM CDT Ventricular Rate 77 BPM Atrial Rate 77 BPM P-R Interval 162 ms QRS Duration 98 ms Q-T Interval 404 ms QTC Calculation(Bazett) 457 ms P [place] -8 degrees R [place] 30 degrees T [place] -1 degrees Normal sinus rhythm RSR' or QR pattern in V1 suggests right ventricular conduction delay Cannot rule out Anterior infarct , age undetermined Abnormal ECG No previous ECGs available Confirmed by MD [place] ([id number]) on 09/02/2017 2:25:25 PM Performing Organization Address [facility] Phone Number [employer] US abdomen limited (09/01/2017 5:23 AM CDT) Narrative Performed At FINAL REPORT [email or web address] INDICATION: 37-year-old male with abdominal pain and [...] MD Report Verified Date/Time:09/01/2017 09:53:12 Reading Location: [address] Ultrasound Reading Room Procedure Note Interface, [...] Report Verified Date/Time: 09/01/2017 09:53:12 Reading Location: [address] Ultrasound Reading Room Performing Organization Address City/State/Zipcode Phone Number RIS TSH/Free T4 If Indicated (09/01/2017 3:12 AM CDT) TSH 0.36 0.35 - 4.94 uIU/mL [facility] Specimen Blood - Arm, Left Performing Organization Address [facility] Phone Number [address] [address] CENTER Troponin I (09/01/2017 3:12 AM CDT) Troponin I <0.01 0.00 - 0.03 ng/mL [facility] Specimen Blood - Arm, Left Narrative Performed At [facility] Troponin I (TnI) levels must be interpreted [...] disease, and persistent tachyarrhythmia. Performing Organization Address [facility] Phone Number [address] [address] [phone] CENTER Sedimentation rate (09/01/2017 3:12 AM CDT) Sed Rate 3 0 - 15 mm/HR [facility] Specimen Blood - Arm, Left Performing Organization Address [facility] Phone Number [address] [address] CENTER Hemoglobin A1c (09/01/2017 3:12 AM CDT) Hemoglobin A1C 4.7 4.3 - 6.1 % [facility] Specimen Blood - Arm, Left Performing Organization Address [facility] Phone Number [address] [address] [phone] CENTER Creatine Kinase (CK), Total and MB (09/01/2017 3:12 AM CDT) Total CK 29 29 - 200 U/L [facility] CK-MB 0.4 0.0 - 6.6 ng/mL [facility] MB Relative Index 1.4 % [facility] Specimen Blood - Arm, Left Narrative Performed At CK-MB Reference Range: [facility] <6.7Normal 6.7-10.0Borderline >10.0 Abnormal Performing Organization Address [facility] Phone Number [address] [address] [phone] [place] Amylase (09/01/2017 3:12 AM CDT) Amylase 383 (H) 25 - 125 U/L [facility] Specimen Blood - Arm, Left Performing Organization Address [facility] Phone Number [address] [address] [phone] [place] Lipid panel (09/01/2017 3:12 AM CDT)Only the most recent of2 resultswithin the time period is included. Triglycerides 76 mg/dL [facility] Cholesterol 118 mg/dL [facility] HDL 37 mg/dL [facility] LDL Calculated 66 mg/dL [facility] Specimen Blood - Arm, Left Narrative Performed At [facility] Triglyceride Reference Range: Low Risk <150 [id number] High Risk 200-499 Very High Risk>=500 Cholesterol Reference Range: Low Risk <200 [id number] High Risk>240 HDL Cholesterol Reference Range: Low Risk >=60 High Risk <40 LDL Cholesterol Reference Range: Optimal<100 Near [id number] Very High >=190 Performing Organization Address [facility] Phone Number [address] [address] [phone] CENTER Blood culture (09/01/2017 3:11 AM CDT)Only the most recent of2 resultswithin the time period is included. Result No growth in 5 days [facility] Specimen Blood - Arm, Right Performing Organization Address City/[facility]/Zipcode Phone Number [facility] [address] [place] [address] CENTER EKG-SCANNED (05/22/2017 12:43 PM [employer]) Narrative Performed At Comprehensive metabolic panel (05/19/2017 12:54 PM [employer])Only the most recent of2 resultswithin the time period is included. Protein, Total 7.8 6.0 - 8.3 gm/dL [facility] Albumin 3.9 3.5 - 5.0 g/dL [facility] Alkaline Phosphatase 62 40 - 150 U/L [facility] Total Bilirubin 0.3 0.2 - 1.2 mg/dL [facility] Sodium 139 136 - 145 meq/L [facility] Potassium 4.2 3.5 - 5.1 meq/L [facility] Chloride 104 98 - 107 meq/L [facility] CO2 26 22 - 29 meq/L [facility] BUN 9 7 - 21 mg/dL [facility] Creatinine 0.64 0.57 - 1.25 mg/dL [facility] Glucose 78 70 - 105 mg/dL [facility] Calcium 9.5 8.4 - 10.2 mg/dL [facility] AST 18 5 - 34 U/L [facility] ALT 8 6 - 55 U/L [facility] EGFR 141Comment: ESTIMATED mL/min/1.73 sq m [facility] GFR IS NOT ACCURATE [facility] CREATININE CLEARANCE IN PREDICTING GLOMERULAR FILTRATION RATE. ESTIMATED GFR IS NOT APPLICABLE FOR DIALYSIS PATIENTS. Specimen Blood Performing Organization Address City/[facility]/Zipcode Phone Number [facility] [address] [place] [address] CENTER CBC (Hemogram only) (05/17/2017 4:26 AM [employer])Only the most recent of3 resultswithin the time period is included. WBC 6.4 3.5 - 10.5 K/L [facility] RBC 3.84 (L) 4.63 - 6.08 M/L [facility] Hemoglobin 11.5 (L) 13.7 - 17.5 GM/DL [facility] Hematocrit 35.2 (L) 40.1 - 51.0 % [facility] MCV 91.7 79.0 - 92.2 fL [facility] MCH 29.9 25.7 - 32.2 pg [facility] MCHC 32.7 32.3 - 36.5 GM/DL [facility] RDW 14.1 11.6 - 14.4 % [facility] Platelets 434 150 - 450 K/CU MM [facility] MPV 9.4 9.4 - 12.4 fL [facility] nRBC 0 0 - 0 /100 WBC [facility] Specimen Blood - Arm, Right Performing Organization Address City/State/Zipcode Phone Number [address] [address] [place] after 04/28/2017 Advance Directives For more information, please contact:[address] [phone] Code Status Date Activated Date Inactivated Comments [...]
--- OUTSIDE RECORDS SUMMARY | 2018-04-29 12:41 | XMS REPORT ---
:1980 [facility] Address [address] [place] [address] Care Team Providers Name Role Phone VANI [...] WALLER, 2017-09-[address] at [facility] for FINAL REPORT PATIENT EXTENSIVE - 16:25:00 evidence of bleedCall with ID: [id number] ARTERIAL questions: [phone] or Mesenteric angiogram [facility] for and embolization exam:->Pancreaticoduodednal artery with intermittent [...] blood loss: < 5 cc. Specimen: None. plasma processing centrifuge operator: Michael Ortega MD. Rn Transfer: None.. Fluoroscopy Time: 31.7 min.Reference Air Kerma [...] over 0.035 Bentson wire for a 5 Zambian by 10 cm vascular sheath. A 5 [place]ambian Sutton B catheter was used to select the celiac trunk and SMA for multiple DSA runs. The Sutton catheter was then remanipulated into the celiac trunk. Next, using a 2.4 [place]ian microcatheter and 0.016 inch microwire, the gastroduodenal artery was cannulated. Subsequently, the catheter was manipulated into the feeding branch supplying the abnormal area of hyperemia/vessel irregularity. From this location, embolization was performed using Interlock microcoils. The microcatheter was retracted into the GDA proximally and postdilatation DSA was performed. Next, the Sutton base catheter was manipulated into the SMA. Using a 2. [place]ian directional microcatheter and 0.014 inch microwire, the [...] Ortegaort Verified Date/Time: 09/20/2017 16:25:06 Reading Location: [place] [address] Angio Body Reading Room IUM, IONIZED 2017-09-19 07:02:00 Test Item Value Reference Range Comments CALCIUM IONIZED (BEAKER) (test nsmy=736) 1.11 mmol/L 1.12-1.27 PH, BLOOD (BEAKER) (test grhu=0944) 7.40 [id number] 06:35:00 Test Item Value Reference Range Comments PHOSPHORUS (BEAKER) (test hhoy=379) 3.0 mg/dL 2.3-4.7 [id number] 06:35:00 Test Item Value Reference Range Comments MAGNESIUM (BEAKER) (test idoc=725) 2.0 mg/dL 1.6-2.6 BASIC METABOLIC [id number] 06:35:00 Test Item Value Reference Range Comments SODIUM (BEAKER) (test 138 meq/L 136-145 qmdv=796) POTASSIUM (BEAKER) (test 3.8 meq/L 3.5-5.1 uedh=507) CHLORIDE (BEAKER) (test 109 meq/L 98-107 layd=382) CO2 (BEAKER) (test 22 meq/L 22-29 bqmx=028) BLOOD UREA NITROGEN 10 mg/dL 7-21 (BEAKER) (test ysok=656) CREATININE (BEAKER) (test 0.53 mg/dL 0.57-1.25 muen=451) GLUCOSE RANDOM (BEAKER) 88 mg/dL 70-105 (test uzwg=875) CALCIUM (BEAKER) (test 8.5 mg/dL 8.4-10.2 nwuq=984) EGFR (BEAKER) (test 174 mL/min/1.73 sq m ESTIMATED GFR IS NOT ezjp=0677) ACCURATE CREATININE CLEARANCE IN PREDICTING GLOMERULAR FILTRATION RATE. ESTIMATED GFR IS NOT APPLICABLE FOR DIALYSIS PATIENTS. CALCIUM, [id number] 07:12:00 Test Item Value Reference Range Comments CALCIUM IONIZED (BEAKER) (test iaer=537) 1.09 mmol/L 1.12-1.27 PH, BLOOD (BEAKER) (test uxio=0968) 7.41 [id number] 06:38:00 Test Item Value Reference Range Comments PHOSPHORUS (BEAKER) (test vjcj=986) 3.0 mg/dL 2.3-4.7 [id number] 06:38:00 Test Item Value Reference Range Comments MAGNESIUM (BEAKER) (test jgoh=986) 2.1 mg/dL 1.6-2.6 BASIC METABOLIC [id number] 06:38:00 Test Item Value Reference Range Comments SODIUM (BEAKER) (test 137 meq/L 136-145 hntu=193) POTASSIUM (BEAKER) (test 3.7 meq/L 3.5-5.1 qtxo=202) CHLORIDE (BEAKER) (test 108 meq/L 98-107 nkld=659) CO2 (BEAKER) (test 22 meq/L 22-29 vuqa=643) BLOOD UREA NITROGEN 10 mg/dL 7-21 (BEAKER) (test uaez=874) CREATININE (BEAKER) (test 0.52 mg/dL 0.57-1.25 devi=469) GLUCOSE RANDOM (BEAKER) 99 mg/dL 70-105 (test jjds=179) CALCIUM (BEAKER) (test 8.6 mg/dL 8.4-10.2 yjyw=363) EGFR (BEAKER) (test 178 mL/min/1.73 sq m ESTIMATED GFR IS NOT jmbi=8989) ACCURATE CREATININE CLEARANCE IN PREDICTING GLOMERULAR FILTRATION RATE. ESTIMATED GFR IS NOT APPLICABLE FOR DIALYSIS PATIENTS. CALCIUM, [id number] 04:45:00 Test Item Value Reference Range Comments CALCIUM IONIZED (BEAKER) (test uitt=501) 1.14 mmol/L 1.12-1.27 PH, BLOOD (BEAKER) (test kzqg=3905) 7.39 [id number] 04:22:00 Test Item Value Reference Range Comments PHOSPHORUS (BEAKER) (test lkxt=739) 2.8 mg/dL 2.3-4.7 [id number] 04:22:00 Test Item Value Reference Range Comments MAGNESIUM (BEAKER) (test rfal=103) 1.9 mg/dL 1.6-2.6 BASIC METABOLIC [id number] 04:22:00 Test Item Value Reference Range Comments SODIUM (BEAKER) (test 134 meq/L 136-145 hlrh=685) POTASSIUM (BEAKER) (test 3.3 meq/L 3.5-5.1 vnuh=019) CHLORIDE (BEAKER) (test 103 meq/L 98-107 lcqv=097) CO2 (BEAKER) (test 23 meq/L 22-29 bdfv=937) BLOOD UREA NITROGEN 11 mg/dL 7-21 (BEAKER) (test jtzn=477) CREATININE (BEAKER) (test 0.55 mg/dL 0.57-1.25 fcma=480) GLUCOSE RANDOM (BEAKER) 112 mg/dL 70-105 (test fsez=198) CALCIUM (BEAKER) (test 8.7 mg/dL 8.4-10.2 ovar=647) EGFR (BEAKER) (test 167 mL/min/1.73 sq m ESTIMATED GFR IS NOT fwls=0503) ACCURATE CREATININE CLEARANCE IN PREDICTING GLOMERULAR FILTRATION RATE. ESTIMATED GFR IS NOT APPLICABLE FOR DIALYSIS PATIENTS. CBC W/PLT COUNT & AUTO [id number] 04:11:00 Test Item Value Reference Range Comments WHITE BLOOD CELL COUNT (BEAKER) (test zuwn=330) 10.1 K/ L 3.5-10.5 RED BLOOD CELL COUNT (BEAKER) (test pldq=691) 4.16 M/ L 4.63-6.08 HEMOGLOBIN (BEAKER) (test cowx=211) 12.6 GM/DL 13.7-17.5 HEMATOCRIT (BEAKER) (test ooww=954) 37.3 % 40.1-51.0 MEAN CORPUSCULAR VOLUME (BEAKER) (test vrxq=231) 89.7 fL 79.0-92.2 MEAN CORPUSCULAR HEMOGLOBIN (BEAKER) (test 30.3 pg 25.7-32.2 vxgr=993) MEAN CORPUSCULAR HEMOGLOBIN CONC (BEAKER) (test 33.8 GM/DL 32.3-36.5 vwop=603) RED CELL DISTRIBUTION WIDTH (BEAKER) (test 14.0 % 11.6-14.4 jwdp=475) PLATELET COUNT (BEAKER) (test spjm=000) 541 K/CU MM 150-450 MEAN PLATELET VOLUME (BEAKER) (test smrp=881) 9.1 fL 9.4-12.4 NUCLEATED RED BLOOD CELLS (BEAKER) (test 0 /100 WBC 0-0 yasp=599) NEUTROPHILS RELATIVE PERCENT (BEAKER) (test 66 % ulea=282) LYMPHOCYTES RELATIVE PERCENT (BEAKER) (test 20 % aftc=019) MONOCYTES RELATIVE PERCENT (BEAKER) (test 10 % rire=774) EOSINOPHILS RELATIVE PERCENT (BEAKER) (test 3 % syjl=408) BASOPHILS RELATIVE PERCENT (BEAKER) (test 1 % aqbg=482) NEUTROPHILS ABSOLUTE COUNT (BEAKER) (test 6.65 K/ L 1.78-5.38 mlje=201) LYMPHOCYTES ABSOLUTE COUNT (BEAKER) (test 2.05 K/ L 1.32-3.57 orte=349) MONOCYTES ABSOLUTE COUNT (BEAKER) (test 1.03 K/ L 0.30-0.82 acgu=014) EOSINOPHILS ABSOLUTE COUNT (BEAKER) (test 0.26 K/ L 0.04-0.54 alfm=224) BASOPHILS ABSOLUTE COUNT (BEAKER) (test 0.10 K/ L 0.01-0.08 xooy=153) IMMATURE GRANULOCYTES-RELATIVE PERCENT (BEAKER) 0 % 0-1 (test jjmw=0064) U/S, ABDOMINAL, WITH [id number] 04:01:00Reason for exam:->? hx of PV thrombosisFINAL [...] Gaspar Verified Date/Time: 09/17/2017 04:01:12 Reading Location: [facility] [id number] Ortho Consult Reading Room 04 :01 AMC-REACTIVE [id number] 13:17:00 Test Item Value Reference Range Comments C-REACTIVE PROTEIN (BEAKER) (test klxo=278) 0.97 mg/dL 0.00-0.50 [id number] 11:12:00 Test Item Value Reference Range Comments PROTIME (BEAKER) (test pnxh=408) 16.2 seconds 11.7-14.7 INR (BEAKER) (test vhtd=762) 1.3 <=5.9 PARTIAL THROMBOPLASTIN TIME (BEAKER) (test 30.2 seconds 22.5-36.0 wmzq=756) RECOMMENDED COUMADIN/WARFARIN INR THERAPY RANGESSTANDARD DOSE: 2.0 - 3.0 Includes: PROPHYLAXIS forvenous thrombosis, systemic embolization; TREATMENT for venous thrombosis and/or pulmonary embolus.HIGH RISK: Target INR is 2.5-3.5 for patients with mechanical heart valves.[id number] 05:28:00 Test Item Value Reference Range Comments TRIGLYCERIDES (BEAKER) (test xybr=207) 78 mg/dL TRIGLYCERIDE REFERENCE RANGELow Risk <150Borderline Risk 150-199High Risk 200-499Very High Risk>=[id number] 05:28:00 Test Item Value Reference Range Comments MAGNESIUM (BEAKER) (test sahw=626) 1.9 mg/dL 1.6-2.6 [id number] 05:28:00 Test Item Value Reference Range Comments PHOSPHORUS (BEAKER) (test azwr=279) 3.5 mg/dL 2.3-4.7 BASIC METABOLIC [id number] 05:28:00 Test Item Value Reference Range Comments SODIUM (BEAKER) (test 134 meq/L 136-145 nghm=434) POTASSIUM (BEAKER) (test 3.6 meq/L 3.5-5.1 ctao=468) CHLORIDE (BEAKER) (test 105 meq/L 98-107 kybh=966) CO2 (BEAKER) (test 23 meq/L 22-29 stce=962) BLOOD UREA NITROGEN 13 mg/dL 7-21 (BEAKER) (test ljnt=494) CREATININE (BEAKER) (test 0.56 mg/dL 0.57-1.25 alqp=968) GLUCOSE RANDOM (BEAKER) 83 mg/dL 70-105 (test aedk=981) CALCIUM (BEAKER) (test 8.8 mg/dL 8.4-10.2 sdjt=611) EGFR (BEAKER) (test 163 mL/min/1.73 sq m ESTIMATED GFR IS NOT dcqh=2152) ACCURATE CREATININE CLEARANCE IN PREDICTING GLOMERULAR FILTRATION RATE. ESTIMATED GFR IS NOT APPLICABLE FOR DIALYSIS PATIENTS. HEPATIC FUNCTION [id number] 05:28:00 Test Item Value Reference Range Comments TOTAL PROTEIN (BEAKER) (test tlxj=352) 6.5 gm/dL 6.0-8.3 ALBUMIN (BEAKER) (test ihos=1708) 3.7 g/dL 3.5-5.0 BILIRUBIN TOTAL (BEAKER) (test kmze=265) 0.3 mg/dL 0.2-1.2 BILIRUBIN DIRECT (BEAKER) (test rdts=162) 0.1 mg/dL 0.1-0.5 ALKALINE PHOSPHATASE (BEAKER) (test zcwv=010) 79 U/L 40-150 AST (SGOT) (BEAKER) (test moba=161) 14 U/L 5-34 ALT (SGPT) (BEAKER) (test qzch=468) 9 U/L 6-55 [id number] 05:28:00 Test Item Value Reference Range Comments LIPASE (BEAKER) (test rsml=940) 114 U/L 8-78 CBC W/PLT COUNT & AUTO [id number] 05:03:00 Test Item Value Reference Range Comments WHITE BLOOD CELL COUNT (BEAKER) (test dpws=871) 7.2 K/ L 3.5-10.5 RED BLOOD CELL COUNT (BEAKER) (test fusr=177) 4.04 M/ L 4.63-6.08 HEMOGLOBIN (BEAKER) (test cyiq=193) 12.2 GM/DL 13.7-17.5 HEMATOCRIT (BEAKER) (test nono=511) 36.7 % 40.1-51.0 MEAN CORPUSCULAR VOLUME (BEAKER) (test nzsy=556) 90.8 fL 79.0-92.2 MEAN CORPUSCULAR HEMOGLOBIN (BEAKER) (test 30.2 pg 25.7-32.2 qoqz=840) MEAN CORPUSCULAR HEMOGLOBIN CONC (BEAKER) (test 33.2 GM/DL 32.3-36.5 rfot=393) RED CELL DISTRIBUTION WIDTH (BEAKER) (test 14.3 % 11.6-14.4 aawj=376) PLATELET COUNT (BEAKER) (test qpmg=661) 561 K/CU MM 150-450 MEAN PLATELET VOLUME (BEAKER) (test dcxe=407) 9.2 fL 9.4-12.4 NUCLEATED RED BLOOD CELLS (BEAKER) (test 0 /100 WBC 0-0 iahe=401) NEUTROPHILS RELATIVE PERCENT (BEAKER) (test 51 % gdlb=376) LYMPHOCYTES RELATIVE PERCENT (BEAKER) (test 32 % eukq=168) MONOCYTES RELATIVE PERCENT (BEAKER) (test 11 % orqy=240) EOSINOPHILS RELATIVE PERCENT (BEAKER) (test 4 % ghwk=136) BASOPHILS RELATIVE PERCENT (BEAKER) (test 2 % bfuq=027) NEUTROPHILS ABSOLUTE COUNT (BEAKER) (test 3.66 K/ L 1.78-5.38 bldo=463) LYMPHOCYTES ABSOLUTE COUNT (BEAKER) (test 2.30 K/ L 1.32-3.57 grdy=266) MONOCYTES ABSOLUTE COUNT (BEAKER) (test 0.77 K/ L 0.30-0.82 tvll=363) EOSINOPHILS ABSOLUTE COUNT (BEAKER) (test 0.30 K/ L 0.04-0.54 hnvk=794) BASOPHILS ABSOLUTE COUNT (BEAKER) (test 0.11 K/ L 0.01-0.08 hkzp=018) IMMATURE GRANULOCYTES-RELATIVE PERCENT (BEAKER) 1 % 0-1 (test oihj=5417) RAD, CHEST, 1 VIEW, NON [id number] 19:53:00Reason for exam:->check picc placement Should this [...] MDReport Verified Date/Time: 09/15/2017 19:53:01 Reading Location: [address] Reading Room Electronically signed by: GEORGE KEYS M.D. on 07:53 PMCBC W/PLT COUNT & AUTO [id number] 10:27:00 Test Item Value Reference Range Comments WHITE BLOOD CELL COUNT (BEAKER) (test jsmb=264) 7.8 K/ L 3.5-10.5 RED BLOOD CELL COUNT (BEAKER) (test varr=916) 3.95 M/ L 4.63-6.08 HEMOGLOBIN (BEAKER) (test jwvp=818) 12.0 GM/DL 13.7-17.5 HEMATOCRIT (BEAKER) (test zzzs=338) 35.9 % 40.1-51.0 MEAN CORPUSCULAR VOLUME (BEAKER) (test cqnv=465) 90.9 fL 79.0-92.2 MEAN CORPUSCULAR HEMOGLOBIN (BEAKER) (test 30.4 pg 25.7-32.2 crrh=113) MEAN CORPUSCULAR HEMOGLOBIN CONC (BEAKER) (test 33.4 GM/DL 32.3-36.5 qlxd=703) RED CELL DISTRIBUTION WIDTH (BEAKER) (test 14.6 % 11.6-14.4 dpdz=679) PLATELET COUNT (BEAKER) (test owrx=848) 543 K/CU MM 150-450 MEAN PLATELET VOLUME (BEAKER) (test kjjm=912) 9.1 fL 9.4-12.4 NUCLEATED RED BLOOD CELLS (BEAKER) (test 0 /100 WBC 0-0 bnzz=819) NEUTROPHILS RELATIVE PERCENT (BEAKER) (test 59 % qyob=625) LYMPHOCYTES RELATIVE PERCENT (BEAKER) (test 27 % vtvy=358) MONOCYTES RELATIVE PERCENT (BEAKER) (test 11 % jkme=125) EOSINOPHILS RELATIVE PERCENT (BEAKER) (test 1 % kqnp=889) BASOPHILS RELATIVE PERCENT (BEAKER) (test 1 % zakz=831) NEUTROPHILS ABSOLUTE COUNT (BEAKER) (test 4.56 K/ L 1.78-5.38 vvnm=688) LYMPHOCYTES ABSOLUTE COUNT (BEAKER) (test 2.11 K/ L 1.32-3.57 xpjs=782) MONOCYTES ABSOLUTE COUNT (BEAKER) (test 0.89 K/ L 0.30-0.82 rslg=226) EOSINOPHILS ABSOLUTE COUNT (BEAKER) (test 0.11 K/ L 0.04-0.54 jvff=034) BASOPHILS ABSOLUTE COUNT (BEAKER) (test 0.08 K/ L 0.01-0.08 ndjg=704) IMMATURE GRANULOCYTES-RELATIVE PERCENT (BEAKER) 0 % 0-1 (test rtkx=3855) PERIPHERAL BLOOD SMEAR - PATHOLOGIST [id number] 10:04:00 Test Item Value Reference Range Comments PERIPHERAL SMR REVIEW (BEAKER) Thrombocytosis. No circulating (test wbik=6065) blasts or increased schistocytes. Clinical follow up recommended. [id number] (BEAKER) Enoch Saba (test sndu=0200) Miladis(electronic signature) [id number] 06:02:00 Test Item Value Reference Range Comments PHOSPHORUS (BEAKER) (test lkwe=311) 3.3 mg/dL 2.3-4.7 [id number] 06:02:00 Test Item Value Reference Range Comments MAGNESIUM (BEAKER) (test zbpy=703) 2.0 mg/dL 1.6-2.6 BASIC METABOLIC [id number] 06:02:00 Test Item Value Reference Range Comments SODIUM (BEAKER) (test 132 meq/L 136-145 gjmu=427) POTASSIUM (BEAKER) (test 3.7 meq/L 3.5-5.1 yyck=237) CHLORIDE (BEAKER) (test 102 meq/L 98-107 qsgr=349) CO2 (BEAKER) (test 22 meq/L 22-29 wtle=025) BLOOD UREA NITROGEN 11 mg/dL 7-21 (BEAKER) (test vayi=875) CREATININE (BEAKER) (test 0.52 mg/dL 0.57-1.25 bpkk=131) GLUCOSE RANDOM (BEAKER) 76 mg/dL 70-105 (test robe=469) CALCIUM (BEAKER) (test 9.4 mg/dL 8.4-10.2 vnhe=831) EGFR (BEAKER) (test 178 mL/min/1.73 sq m ESTIMATED GFR IS NOT aeij=9257) ACCURATE CREATININE CLEARANCE IN PREDICTING GLOMERULAR FILTRATION RATE. ESTIMATED GFR IS NOT APPLICABLE FOR DIALYSIS PATIENTS. VITAMIN B12 AND [id number] 12:22:00 Test Item Value Reference Range Comments VITAMIN B12 (BEAKER) (test eziw=727) 527 pg/mL 213-816 FOLATE (BEAKER) (test fjmu=341) 12.3 ng/mL >=7.0 [id number] 07:34:00 Test Item Value Reference Range Comments LIPASE (BEAKER) (test jobg=731) 1107 U/L 8-78 BASIC METABOLIC [id number] 07:32:00 Test Item Value Reference Range Comments SODIUM (BEAKER) (test 134 meq/L 136-145 fsiv=824) POTASSIUM (BEAKER) (test 3.7 meq/L 3.5-5.1 mrss=436) CHLORIDE (BEAKER) (test 103 meq/L 98-107 itaa=842) CO2 (BEAKER) (test 20 meq/L 22-29 lhiz=604) BLOOD UREA NITROGEN 10 mg/dL 7-21 (BEAKER) (test gkww=120) CREATININE (BEAKER) (test 0.59 mg/dL 0.57-1.25 aqmh=875) GLUCOSE RANDOM (BEAKER) 96 mg/dL 70-105 (test tufn=783) CALCIUM (BEAKER) (test 9.7 mg/dL 8.4-10.2 tqgi=131) EGFR (BEAKER) (test 154 mL/min/1.73 sq m ESTIMATED GFR IS NOT buee=4639) ACCURATE CREATININE CLEARANCE IN PREDICTING GLOMERULAR FILTRATION RATE. ESTIMATED GFR IS NOT APPLICABLE FOR DIALYSIS PATIENTS. [id number] 07:32:00 Test Item Value Reference Range Comments MAGNESIUM (BEAKER) (test iryj=603) 1.9 mg/dL 1.6-2.6 [id number] 07:32:00 Test Item Value Reference Range Comments PHOSPHORUS (BEAKER) (test vvsp=849) 3.4 mg/dL 2.3-4.7 CBC W/PLT COUNT & AUTO [id number] 06:44:00 Test Item Value Reference Range Comments WHITE BLOOD CELL COUNT (BEAKER) (test hcza=585) 12.1 K/ L 3.5-10.5 RED BLOOD CELL COUNT (BEAKER) (test sjeo=162) 4.34 M/ L 4.63-6.08 HEMOGLOBIN (BEAKER) (test dukc=067) 13.1 GM/DL 13.7-17.5 HEMATOCRIT (BEAKER) (test tlod=270) 39.2 % 40.1-51.0 MEAN CORPUSCULAR VOLUME (BEAKER) (test kgug=284) 90.3 fL 79.0-92.2 MEAN CORPUSCULAR HEMOGLOBIN (BEAKER) (test 30.2 pg 25.7-32.2 doxs=801) MEAN CORPUSCULAR HEMOGLOBIN CONC (BEAKER) (test 33.4 GM/DL 32.3-36.5 xwqj=035) RED CELL DISTRIBUTION WIDTH (BEAKER) (test 14.9 % 11.6-14.4 mcqh=073) PLATELET COUNT (BEAKER) (test rawg=356) 636 K/CU MM 150-450 MEAN PLATELET VOLUME (BEAKER) (test ufsk=738) 9.5 fL 9.4-12.4 NUCLEATED RED BLOOD CELLS (BEAKER) (test 0 /100 WBC 0-0 sdqs=742) NEUTROPHILS RELATIVE PERCENT (BEAKER) (test 72 % tunz=172) LYMPHOCYTES RELATIVE PERCENT (BEAKER) (test 15 % bxkz=845) MONOCYTES RELATIVE PERCENT (BEAKER) (test 11 % jfmi=817) EOSINOPHILS RELATIVE PERCENT (BEAKER) (test 0 % kgjx=014) BASOPHILS RELATIVE PERCENT (BEAKER) (test 0 % daxi=488) NEUTROPHILS ABSOLUTE COUNT (BEAKER) (test 8.72 K/ L 1.78-5.38 xnpl=346) LYMPHOCYTES ABSOLUTE COUNT (BEAKER) (test 1.87 K/ L 1.32-3.57 taaz=368) MONOCYTES ABSOLUTE COUNT (BEAKER) (test 1.38 K/ L 0.30-0.82 knjl=321) EOSINOPHILS ABSOLUTE COUNT (BEAKER) (test 0.02 K/ L 0.04-0.54 uhxm=305) BASOPHILS ABSOLUTE COUNT (BEAKER) (test 0.05 K/ L 0.01-0.08 mmuc=420) IMMATURE GRANULOCYTES-RELATIVE PERCENT (BEAKER) 1 % 0-1 (test akar=6211) FINE NEEDLE ASPIRATION BY [id number] 13:21:00Medical Cytology Report Case: [id number] Authorizing Provider: Bessy Hernandez MD Collected: 2017 1743 Ordering Location: [address] Received : 09/08/2017 1814 Service Pathologist: Mir Anthony MD Specimen: Pancreas PANCREAS HEAD CYSTICLESION FNA BY CLINICIAN ( CYTOSPINS AND CELL BLOCK OF ASPIRATE): - NO MALIGNANT CELLS IDENTIFIED - The mucin stain shows focal weak staining Signing Pathologist Direct Phone Line : [phone] signed by Mir Anthony MD on 09/11/2017 at 1:21 PMThe cell block shows non-inflammed pancreatic acinar tissue.00795, 03536, 20906(4.9 X 4.8 cm) Cystic lesion in the pancreatic headPANCREAS HEAD CYSTIC LESION FNA25 mls in cytorich red; 4 cytospins, 1 mucin stain, cell blockCollected: [id number]: [id number], [facility] of Pathology, [address] [place] [id number], [facility], [address] [place] [address], [id number] 10:07:00 Test Item Value Reference Range Comments PARTIAL THROMBOPLASTIN TIME (BEAKER) (test 44.5 seconds 22.5-36.0 fmfm=223) BASIC METABOLIC [id number] 05:56:00 Test Item Value Reference Range Comments SODIUM (BEAKER) (test 138 meq/L 136-145 nwxo=802) POTASSIUM (BEAKER) (test 3.7 meq/L 3.5-5.1 pkjm=176) CHLORIDE (BEAKER) (test 105 meq/L 98-107 kfvb=515) CO2 (BEAKER) (test 25 meq/L 22-29 mukl=787) BLOOD UREA NITROGEN 7 mg/dL 7-21 (BEAKER) (test qill=504) CREATININE (BEAKER) (test 0.62 mg/dL 0.57-1.25 ruca=509) GLUCOSE RANDOM (BEAKER) 120 mg/dL 70-105 (test vwgg=871) CALCIUM (BEAKER) (test 8.7 mg/dL 8.4-10.2 rwvw=446) EGFR (BEAKER) (test 145 mL/min/1.73 sq m ESTIMATED GFR IS NOT bkzu=3310) ACCURATE CREATININE CLEARANCE IN PREDICTING GLOMERULAR FILTRATION RATE. ESTIMATED GFR IS NOT APPLICABLE FOR DIALYSIS PATIENTS. CBC W/PLT COUNT & AUTO [id number] 05:42:00 Test Item Value Reference Range Comments WHITE BLOOD CELL COUNT (BEAKER) (test zvkq=910) 4.6 K/ L 3.5-10.5 RED BLOOD CELL COUNT (BEAKER) (test mtyv=462) 3.83 M/ L 4.63-6.08 HEMOGLOBIN (BEAKER) (test zjxg=182) 11.7 GM/DL 13.7-17.5 HEMATOCRIT (BEAKER) (test cvtr=023) 34.7 % 40.1-51.0 MEAN CORPUSCULAR VOLUME (BEAKER) (test ldgo=010) 90.6 fL 79.0-92.2 MEAN CORPUSCULAR HEMOGLOBIN (BEAKER) (test 30.5 pg 25.7-32.2 hrnb=473) MEAN CORPUSCULAR HEMOGLOBIN CONC (BEAKER) (test 33.7 GM/DL 32.3-36.5 egwa=549) RED CELL DISTRIBUTION WIDTH (BEAKER) (test 14.3 % 11.6-14.4 sxhp=243) PLATELET COUNT (BEAKER) (test pxhi=170) 378 K/CU MM 150-450 MEAN PLATELET VOLUME (BEAKER) (test rkux=133) 9.0 fL 9.4-12.4 NUCLEATED RED BLOOD CELLS (BEAKER) (test 0 /100 WBC 0-0 jate=983) NEUTROPHILS RELATIVE PERCENT (BEAKER) (test 39 % ccdz=043) LYMPHOCYTES RELATIVE PERCENT (BEAKER) (test 43 % mdwn=125) MONOCYTES RELATIVE PERCENT (BEAKER) (test 12 % hknp=903) EOSINOPHILS RELATIVE PERCENT (BEAKER) (test 5 % usde=631) BASOPHILS RELATIVE PERCENT (BEAKER) (test 1 % tdqj=904) NEUTROPHILS ABSOLUTE COUNT (BEAKER) (test 1.81 K/ L 1.78-5.38 wivk=988) LYMPHOCYTES ABSOLUTE COUNT (BEAKER) (test 2.01 K/ L 1.32-3.57 kldi=077) MONOCYTES ABSOLUTE COUNT (BEAKER) (test 0.55 K/ L 0.30-0.82 tlrt=799) EOSINOPHILS ABSOLUTE COUNT (BEAKER) (test 0.21 K/ L 0.04-0.54 vvbi=420) BASOPHILS ABSOLUTE COUNT (BEAKER) (test 0.05 K/ L 0.01-0.08 soyo=873) IMMATURE GRANULOCYTES-RELATIVE PERCENT (BEAKER) 0 % 0-1 (test ltwu=4899) FINE NEEDLE ASPIRATE (FNA) [id number] 20:00:00 Test Item Value Reference Range Comments CYTOLOGY RESULT POINTER (BEAKER) (test See Separate Report efuv=7581) [id number] 12:16:00 Test Item Value Reference Range Comments PARTIAL THROMBOPLASTIN TIME (BEAKER) (test 84.6 seconds 22.5-36.0 swef=338) BASIC METABOLIC [id number] 05:21:00 Test Item Value Reference Range Comments SODIUM (BEAKER) (test 126 meq/L 136-145 nlss=108) POTASSIUM (BEAKER) (test 2.8 meq/L 3.5-5.1 udwv=048) CHLORIDE (BEAKER) (test 99 meq/L 98-107 vrji=824) CO2 (BEAKER) (test 20 meq/L 22-29 pacu=586) BLOOD UREA NITROGEN 3 mg/dL 7-21 (BEAKER) (test gtnd=974) CREATININE (BEAKER) (test 0.44 mg/dL 0.57-1.25 fakb=273) GLUCOSE RANDOM (BEAKER) 75 mg/dL 70-105 (test oztf=556) CALCIUM (BEAKER) (test 6.8 mg/dL 8.4-10.2 atnl=618) EGFR (BEAKER) (test 216 mL/min/1.73 sq m ESTIMATED GFR IS NOT tfba=6323) ACCURATE CREATININE CLEARANCE IN PREDICTING GLOMERULAR FILTRATION RATE. ESTIMATED GFR IS NOT APPLICABLE FOR DIALYSIS PATIENTS. [id number] 05:13:00 Test Item Value Reference Range Comments PARTIAL THROMBOPLASTIN TIME (BEAKER) (test 110.2 seconds 22.5-36.0 zepz=267) CBC W/PLT COUNT & AUTO [id number] 04:45:00 Test Item Value Reference Range Comments WHITE BLOOD CELL COUNT (BEAKER) (test immx=408) 4.4 K/ L 3.5-10.5 RED BLOOD CELL COUNT (BEAKER) (test ylaz=660) 3.25 M/ L 4.63-6.08 HEMOGLOBIN (BEAKER) (test mgjd=204) 10.1 GM/DL 13.7-17.5 HEMATOCRIT (BEAKER) (test qzck=402) 29.9 % 40.1-51.0 MEAN CORPUSCULAR VOLUME (BEAKER) (test xsth=120) 92.0 fL 79.0-92.2 MEAN CORPUSCULAR HEMOGLOBIN (BEAKER) (test 31.1 pg 25.7-32.2 raci=525) MEAN CORPUSCULAR HEMOGLOBIN CONC (BEAKER) (test 33.8 GM/DL 32.3-36.5 kopx=796) RED CELL DISTRIBUTION WIDTH (BEAKER) (test 14.5 % 11.6-14.4 ajrr=140) PLATELET COUNT (BEAKER) (test vouw=180) 297 K/CU MM 150-450 MEAN PLATELET VOLUME (BEAKER) (test xkmo=513) 9.1 fL 9.4-12.4 NUCLEATED RED BLOOD CELLS (BEAKER) (test 0 /100 WBC 0-0 svgu=837) NEUTROPHILS RELATIVE PERCENT (BEAKER) (test 44 % jcik=231) LYMPHOCYTES RELATIVE PERCENT (BEAKER) (test 40 % yoxk=726) MONOCYTES RELATIVE PERCENT (BEAKER) (test 11 % cdjv=115) EOSINOPHILS RELATIVE PERCENT (BEAKER) (test 4 % sxzm=905) BASOPHILS RELATIVE PERCENT (BEAKER) (test 1 % sfmi=567) NEUTROPHILS ABSOLUTE COUNT (BEAKER) (test 1.96 K/ L 1.78-5.38 ikxj=521) LYMPHOCYTES ABSOLUTE COUNT (BEAKER) (test 1.77 K/ L 1.32-3.57 ysuy=529) MONOCYTES ABSOLUTE COUNT (BEAKER) (test 0.49 K/ L 0.30-0.82 baac=391) EOSINOPHILS ABSOLUTE COUNT (BEAKER) (test 0.16 K/ L 0.04-0.54 pyfp=680) BASOPHILS ABSOLUTE COUNT (BEAKER) (test 0.05 K/ L 0.01-0.08 ugnp=399) IMMATURE GRANULOCYTES-RELATIVE PERCENT (BEAKER) 0 % 0-1 (test lzxz=2720) [id number] 21:32:00 Test Item Value Reference Range Comments PARTIAL THROMBOPLASTIN TIME (BEAKER) (test 118.1 seconds 22.5-36.0 ufsh=401) BASIC METABOLIC [id number] 14:23:00 Test Item Value Reference Range Comments SODIUM (BEAKER) (test 139 meq/L 136-145 pgbr=252) POTASSIUM (BEAKER) (test 3.6 meq/L 3.5-5.1 ktao=110) CHLORIDE (BEAKER) (test 103 meq/L 98-107 iqin=652) CO2 (BEAKER) (test 29 meq/L 22-29 izbq=677) BLOOD UREA NITROGEN 3 mg/dL 7-21 (BEAKER) (test exsv=536) CREATININE (BEAKER) (test 0.54 mg/dL 0.57-1.25 yopc=975) GLUCOSE RANDOM (BEAKER) 108 mg/dL 70-105 (test ngqz=598) CALCIUM (BEAKER) (test 8.6 mg/dL 8.4-10.2 qiit=199) EGFR (BEAKER) (test 170 mL/min/1.73 sq m ESTIMATED GFR IS NOT lyyv=1778) ACCURATE CREATININE CLEARANCE IN PREDICTING GLOMERULAR FILTRATION RATE. ESTIMATED GFR IS NOT APPLICABLE FOR DIALYSIS PATIENTS. [id number] 14:06:00 Test Item Value Reference Range Comments PARTIAL THROMBOPLASTIN TIME (BEAKER) (test 66.8 seconds 22.5-36.0 pbtj=877) CBC W/PLT COUNT & AUTO [id number] 13:57:00 Test Item Value Reference Range Comments WHITE BLOOD CELL COUNT (BEAKER) (test xvkl=771) 4.6 K/ L 3.5-10.5 RED BLOOD CELL COUNT (BEAKER) (test yhbb=763) 3.95 M/ L 4.63-6.08 HEMOGLOBIN (BEAKER) (test lxax=742) 11.9 GM/DL 13.7-17.5 HEMATOCRIT (BEAKER) (test qdtz=901) 36.5 % 40.1-51.0 MEAN CORPUSCULAR VOLUME (BEAKER) (test qgsu=902) 92.4 fL 79.0-92.2 MEAN CORPUSCULAR HEMOGLOBIN (BEAKER) (test 30.1 pg 25.7-32.2 zzpk=248) MEAN CORPUSCULAR HEMOGLOBIN CONC (BEAKER) (test 32.6 GM/DL 32.3-36.5 ylby=851) RED CELL DISTRIBUTION WIDTH (BEAKER) (test 14.2 % 11.6-14.4 nglu=019) PLATELET COUNT (BEAKER) (test dzhw=495) 347 K/CU MM 150-450 MEAN PLATELET VOLUME (BEAKER) (test mmmm=250) 9.2 fL 9.4-12.4 NUCLEATED RED BLOOD CELLS (BEAKER) (test 0 /100 WBC 0-0 zhsi=447) NEUTROPHILS RELATIVE PERCENT (BEAKER) (test 44 % vhwv=941) LYMPHOCYTES RELATIVE PERCENT (BEAKER) (test 37 % rllu=487) MONOCYTES RELATIVE PERCENT (BEAKER) (test 13 % jpbo=126) EOSINOPHILS RELATIVE PERCENT (BEAKER) (test 5 % wccb=815) BASOPHILS RELATIVE PERCENT (BEAKER) (test 1 % sqqz=363) NEUTROPHILS ABSOLUTE COUNT (BEAKER) (test 1.99 K/ L 1.78-5.38 ihkb=074) LYMPHOCYTES ABSOLUTE COUNT (BEAKER) (test 1.69 K/ L 1.32-3.57 gaes=147) MONOCYTES ABSOLUTE COUNT (BEAKER) (test 0.61 K/ L 0.30-0.82 zikt=914) EOSINOPHILS ABSOLUTE COUNT (BEAKER) (test 0.21 K/ L 0.04-0.54 hwxr=853) BASOPHILS ABSOLUTE COUNT (BEAKER) (test 0.05 K/ L 0.01-0.08 ssmn=933) IMMATURE GRANULOCYTES-RELATIVE PERCENT (BEAKER) 0 % 0-1 (test yuny=4482) BASIC METABOLIC [id number] 07:03:00 Test Item Value Reference Range Comments SODIUM (BEAKER) (test 140 meq/L 136-145 mjcl=025) POTASSIUM (BEAKER) (test 3.4 meq/L 3.5-5.1 ifjr=540) CHLORIDE (BEAKER) (test 100 meq/L 98-107 aozn=756) CO2 (BEAKER) (test 30 meq/L 22-29 zphn=925) BLOOD UREA NITROGEN 3 mg/dL 7-21 (BEAKER) (test ssaz=154) CREATININE (BEAKER) (test 0.56 mg/dL 0.57-1.25 gzyx=374) GLUCOSE RANDOM (BEAKER) 102 mg/dL 70-105 (test hkun=917) CALCIUM (BEAKER) (test 9.2 mg/dL 8.4-10.2 jlsu=686) EGFR (BEAKER) (test 163 mL/min/1.73 sq m ESTIMATED GFR IS NOT cqgf=7919) ACCURATE CREATININE CLEARANCE IN PREDICTING GLOMERULAR FILTRATION RATE. ESTIMATED GFR IS NOT APPLICABLE FOR DIALYSIS PATIENTS. [id number] 06:47:00 Test Item Value Reference Range Comments PARTIAL THROMBOPLASTIN TIME (BEAKER) (test 46.7 seconds 22.5-36.0 ylkz=071) [id number] 00:50:00 Test Item Value Reference Range Comments PARTIAL THROMBOPLASTIN TIME (BEAKER) (test 53.5 seconds 22.5-36.0 ykng=930) [id number] 17:34:00 Test Item Value Reference Range Comments PARTIAL THROMBOPLASTIN TIME (BEAKER) (test 45.8 seconds 22.5-36.0 xqan=669) [id number] 08:32:00 Test Item Value Reference Range Comments PARTIAL THROMBOPLASTIN TIME (BEAKER) (test 38.7 seconds 22.5-36.0 auwl=857) Prior to initiating heparinBASIC METABOLIC [id number] 06:05:00 Test Item Value Reference Range Comments SODIUM (BEAKER) (test 136 meq/L 136-145 rxxr=774) POTASSIUM (BEAKER) (test 3.3 meq/L 3.5-5.1 ipoc=503) CHLORIDE (BEAKER) (test 102 meq/L 98-107 xfzg=639) CO2 (BEAKER) (test 26 meq/L 22-29 joxx=384) BLOOD UREA NITROGEN 2 mg/dL 7-21 (BEAKER) (test lzoe=607) CREATININE (BEAKER) (test 0.55 mg/dL 0.57-1.25 bnsr=087) GLUCOSE RANDOM (BEAKER) 124 mg/dL 70-105 (test jibl=035) CALCIUM (BEAKER) (test 8.0 mg/dL 8.4-10.2 nxts=198) EGFR (BEAKER) (test 167 mL/min/1.73 sq m ESTIMATED GFR IS NOT jvzi=2920) ACCURATE CREATININE CLEARANCE IN PREDICTING GLOMERULAR FILTRATION RATE. ESTIMATED GFR IS NOT APPLICABLE FOR DIALYSIS PATIENTS. BLOOD [id number] 06:00:00 Test Item Value Reference Range Comments CULTURE (BEAKER) (test mwvi=7650) No growth in 5 days BLOOD [id number] 06:00:00 Test Item Value Reference Range Comments CULTURE (BEAKER) (test ewlw=6305) No growth in 5 days [id number] 03:55:00 Test Item Value Reference Range Comments PHOSPHORUS (BEAKER) (test tjrh=847) 2.8 mg/dL 2.3-4.7 [id number] 03:55:00 Test Item Value Reference Range Comments MAGNESIUM (BEAKER) (test iklt=616) 1.3 mg/dL 1.6-2.6 BASIC METABOLIC [id number] 03:55:00 Test Item Value Reference Range Comments SODIUM (BEAKER) (test 137 meq/L 136-145 alws=984) POTASSIUM (BEAKER) (test 3.2 meq/L 3.5-5.1 yeic=222) CHLORIDE (BEAKER) (test 103 meq/L 98-107 zjro=606) CO2 (BEAKER) (test 22 meq/L 22-29 mwgj=974) BLOOD UREA NITROGEN 3 mg/dL 7-21 (BEAKER) (test rtec=922) CREATININE (BEAKER) (test 0.51 mg/dL 0.57-1.25 ilmo=345) GLUCOSE RANDOM (BEAKER) 65 mg/dL 70-105 (test cxjn=940) CALCIUM (BEAKER) (test 8.0 mg/dL 8.4-10.2 srfg=160) EGFR (BEAKER) (test 182 mL/min/1.73 sq m ESTIMATED GFR IS NOT jdoq=3621) ACCURATE CREATININE CLEARANCE IN PREDICTING GLOMERULAR FILTRATION RATE. ESTIMATED GFR IS NOT APPLICABLE FOR DIALYSIS PATIENTS. [id number] 03:55:00 Test Item Value Reference Range Comments LIPASE (BEAKER) (test hwun=957) 210 U/L 8-78 CBC W/PLT COUNT & AUTO [id number] 03:37:00 Test Item Value Reference Range Comments WHITE BLOOD CELL COUNT (BEAKER) (test mxci=381) 6.1 K/ L 3.5-10.5 RED BLOOD CELL COUNT (BEAKER) (test kfmc=667) 3.63 M/ L 4.63-6.08 HEMOGLOBIN (BEAKER) (test dpof=383) 11.1 GM/DL 13.7-17.5 HEMATOCRIT (BEAKER) (test gwqi=827) 33.0 % 40.1-51.0 MEAN CORPUSCULAR VOLUME (BEAKER) (test fpvg=615) 90.9 fL 79.0-92.2 MEAN CORPUSCULAR HEMOGLOBIN (BEAKER) (test 30.6 pg 25.7-32.2 ufpl=181) MEAN CORPUSCULAR HEMOGLOBIN CONC (BEAKER) (test 33.6 GM/DL 32.3-36.5 cclu=357) RED CELL DISTRIBUTION WIDTH (BEAKER) (test 14.3 % 11.6-14.4 fdos=441) PLATELET COUNT (BEAKER) (test wknu=312) 262 K/CU MM 150-450 MEAN PLATELET VOLUME (BEAKER) (test ywdk=725) 9.1 fL 9.4-12.4 NUCLEATED RED BLOOD CELLS (BEAKER) (test 0 /100 WBC 0-0 xtll=739) NEUTROPHILS RELATIVE PERCENT (BEAKER) (test 69 % dasl=278) LYMPHOCYTES RELATIVE PERCENT (BEAKER) (test 17 % fepi=497) MONOCYTES RELATIVE PERCENT (BEAKER) (test 10 % sqwn=260) EOSINOPHILS RELATIVE PERCENT (BEAKER) (test 3 % mynf=411) BASOPHILS RELATIVE PERCENT (BEAKER) (test 0 % quox=765) NEUTROPHILS ABSOLUTE COUNT (BEAKER) (test 4.21 K/ L 1.78-5.38 famp=652) LYMPHOCYTES ABSOLUTE COUNT (BEAKER) (test 1.04 K/ L 1.32-3.57 dbhs=125) MONOCYTES ABSOLUTE COUNT (BEAKER) (test 0.60 K/ L 0.30-0.82 caze=876) EOSINOPHILS ABSOLUTE COUNT (BEAKER) (test 0.18 K/ L 0.04-0.54 rliq=265) BASOPHILS ABSOLUTE COUNT (BEAKER) (test 0.02 K/ L 0.01-0.08 jwef=446) IMMATURE GRANULOCYTES-RELATIVE PERCENT (BEAKER) 1 % 0-1 (test opfn=4102) CT, ABDOMEN - PELVIS, PANCREAS [id number] 00:22:00Reason for exam:-&gt ;pancreatitisFINAL REPORT CT, ABDOMEN [...] Verified Date/ Time: 09/04/2017 00:22:52 Reading Location: [address] Reading Room [id number] 06:00:00 Test Item Value Reference Range Comments MAGNESIUM (BEAKER) (test 1.6 mg/dL 1.6-2.6 Specimen slightly hemolyzed jtod=684) [id number] 06:00:00 Test Item Value Reference Range Comments PHOSPHORUS (BEAKER) (test 3.4 mg/dL 2.3-4.7 Specimen slightly hemolyzed jqgw=120) BASIC METABOLIC [id number] 06:00:00 Test Item Value Reference Range Comments SODIUM (BEAKER) (test 132 meq/L 136-145 pwaw=574) POTASSIUM (BEAKER) (test 3.9 meq/L 3.5-5.1 Specimen slightly ywzs=175) hemolyzed CHLORIDE (BEAKER) (test 101 meq/L 98-107 uvso=056) CO2 (BEAKER) (test 22 meq/L 22-29 rvwh=237) BLOOD UREA NITROGEN 7 mg/dL 7-21 (BEAKER) (test vouq=443) CREATININE (BEAKER) (test 0.49 mg/dL 0.57-1.25 Specimen slightly cive=433) hemolyzed GLUCOSE RANDOM (BEAKER) 59 mg/dL 70-105 (test ihiw=475) CALCIUM (BEAKER) (test 8.1 mg/dL 8.4-10.2 zmxe=243) EGFR (BEAKER) (test 190 mL/min/1.73 sq m ESTIMATED GFR IS NOT ridd=4491) ACCURATE CREATININE CLEARANCE IN PREDICTING GLOMERULAR FILTRATION RATE. ESTIMATED GFR IS NOT APPLICABLE FOR DIALYSIS PATIENTS. HEPATIC FUNCTION [id number] 06:00:00 Test Item Value Reference Range Comments TOTAL PROTEIN (BEAKER) (test 5.7 gm/dL 6.0-8.3 Specimen slightly hemolyzed lhrh=770) ALBUMIN (BEAKER) (test 3.0 g/dL 3.5-5.0 Specimen slightly hemolyzed zius=4026) BILIRUBIN TOTAL (BEAKER) (test 1.2 mg/dL 0.2-1.2 Specimen slightly hemolyzed dkyv=288) BILIRUBIN DIRECT (BEAKER) (test 0.4 mg/dL 0.1-0.5 Specimen slightly hemolyzed kxlo=419) ALKALINE PHOSPHATASE (BEAKER) 62 U/L 40-150 (test iads=848) AST (SGOT) (BEAKER) (test 18 U/L 5-34 Specimen slightly hemolyzed qkvm=044) ALT (SGPT) (BEAKER) (test < U/L 6-55 Specimen slightly hemolyzed sric=703) CBC W/PLT COUNT & AUTO [id number] 05:43:00 Test Item Value Reference Range Comments WHITE BLOOD CELL COUNT (BEAKER) (test bxwi=271) 8.4 K/ L 3.5-10.5 RED BLOOD CELL COUNT (BEAKER) (test mmen=203) 3.68 M/ L 4.63-6.08 HEMOGLOBIN (BEAKER) (test xbgh=220) 11.6 GM/DL 13.7-17.5 HEMATOCRIT (BEAKER) (test yvpd=171) 34.4 % 40.1-51.0 MEAN CORPUSCULAR VOLUME (BEAKER) (test zqht=972) 93.5 fL 79.0-92.2 MEAN CORPUSCULAR HEMOGLOBIN (BEAKER) (test 31.5 pg 25.7-32.2 xxza=024) MEAN CORPUSCULAR HEMOGLOBIN CONC (BEAKER) (test 33.7 GM/DL 32.3-36.5 sziw=779) RED CELL DISTRIBUTION WIDTH (BEAKER) (test 14.6 % 11.6-14.4 tmwg=965) PLATELET COUNT (BEAKER) (test hadc=661) 221 K/CU MM 150-450 MEAN PLATELET VOLUME (BEAKER) (test qbzn=829) 9.5 fL 9.4-12.4 NUCLEATED RED BLOOD CELLS (BEAKER) (test 0 /100 WBC 0-0 uyza=995) NEUTROPHILS RELATIVE PERCENT (BEAKER) (test 75 % veqz=401) LYMPHOCYTES RELATIVE PERCENT (BEAKER) (test 14 % prmy=109) MONOCYTES RELATIVE PERCENT (BEAKER) (test 10 % cfmx=428) EOSINOPHILS RELATIVE PERCENT (BEAKER) (test 1 % qxyd=216) BASOPHILS RELATIVE PERCENT (BEAKER) (test 0 % djot=395) NEUTROPHILS ABSOLUTE COUNT (BEAKER) (test 6.27 K/ L 1.78-5.38 atse=814) LYMPHOCYTES ABSOLUTE COUNT (BEAKER) (test 1.16 K/ L 1.32-3.57 ywbd=514) MONOCYTES ABSOLUTE COUNT (BEAKER) (test 0.87 K/ L 0.30-0.82 behb=462) EOSINOPHILS ABSOLUTE COUNT (BEAKER) (test 0.07 K/ L 0.04-0.54 aoqx=981) BASOPHILS ABSOLUTE COUNT (BEAKER) (test 0.03 K/ L 0.01-0.08 cejt=600) IMMATURE GRANULOCYTES-RELATIVE PERCENT (BEAKER) 0 % 0-1 (test fptt=6784) POCT-GLUCOSE [id number] 07:30:00 Test Item Value Reference Range Comments POC-GLUCOSE METER (BEAKER) 140 mg/dL 70-110 TESTED AT [address] (test uxhm=4129) [place] [id number] POCT-GLUCOSE [id number] 07:30:00 Test Item Value Reference Range Comments POC-GLUCOSE METER (BEAKER) 59 mg/dL 70-110 TESTED AT [address] (test xphn=8603) [place] [id number] 05:16:00 Test Item Value Reference Range Comments MAGNESIUM (BEAKER) (test 1.7 mg/dL 1.6-2.6 Specimen slightly hemolyzed klaq=410) [id number] 05:16:00 Test Item Value Reference Range Comments PHOSPHORUS (BEAKER) (test 3.7 mg/dL 2.3-4.7 Specimen slightly hemolyzed aulr=859) BASIC METABOLIC [id number] 05:16:00 Test Item Value Reference Range Comments SODIUM (BEAKER) (test 136 meq/L 136-145 gopm=822) POTASSIUM (BEAKER) (test 4.1 meq/L 3.5-5.1 Specimen slightly hued=816) hemolyzed CHLORIDE (BEAKER) (test 105 meq/L 98-107 rvtv=696) CO2 (BEAKER) (test 21 meq/L 22-29 ippc=649) BLOOD UREA NITROGEN 12 mg/dL 7-21 (BEAKER) (test brzv=627) CREATININE (BEAKER) (test 0.62 mg/dL 0.57-1.25 Specimen slightly bkkd=127) hemolyzed GLUCOSE RANDOM (BEAKER) 65 mg/dL 70-105 (test pccq=307) CALCIUM (BEAKER) (test 8.4 mg/dL 8.4-10.2 runv=239) EGFR (BEAKER) (test 145 mL/min/1.73 sq m ESTIMATED GFR IS NOT bbfo=2298) ACCURATE CREATININE CLEARANCE IN PREDICTING GLOMERULAR FILTRATION RATE. ESTIMATED GFR IS NOT APPLICABLE FOR DIALYSIS PATIENTS. HEPATIC FUNCTION [id number] 05:16:00 Test Item Value Reference Range Comments TOTAL PROTEIN (BEAKER) (test 5.9 gm/dL 6.0-8.3 Specimen slightly hemolyzed nikz=111) ALBUMIN (BEAKER) (test 3.3 g/dL 3.5-5.0 Specimen slightly hemolyzed dfax=6175) BILIRUBIN TOTAL (BEAKER) (test 1.4 mg/dL 0.2-1.2 Specimen slightly hemolyzed eofl=976) BILIRUBIN DIRECT (BEAKER) (test 0.5 mg/dL 0.1-0.5 Specimen slightly hemolyzed oonp=559) ALKALINE PHOSPHATASE (BEAKER) 66 U/L 40-150 (test slpo=942) AST (SGOT) (BEAKER) (test 16 U/L 5-34 Specimen slightly hemolyzed lnld=272) ALT (SGPT) (BEAKER) (test 6 U/L 6-55 Specimen slightly hemolyzed axnz=865) CBC W/PLT COUNT & AUTO [id number] 04:45:00 Test Item Value Reference Range Comments WHITE BLOOD CELL COUNT (BEAKER) (test kejc=303) 9.1 K/ L 3.5-10.5 RED BLOOD CELL COUNT (BEAKER) (test bytt=292) 4.04 M/ L 4.63-6.08 HEMOGLOBIN (BEAKER) (test tpti=201) 12.3 GM/DL 13.7-17.5 HEMATOCRIT (BEAKER) (test ywey=596) 38.1 % 40.1-51.0 MEAN CORPUSCULAR VOLUME (BEAKER) (test pojx=816) 94.3 fL 79.0-92.2 MEAN CORPUSCULAR HEMOGLOBIN (BEAKER) (test 30.4 pg 25.7-32.2 gvzc=970) MEAN CORPUSCULAR HEMOGLOBIN CONC (BEAKER) (test 32.3 GM/DL 32.3-36.5 kuyk=157) RED CELL DISTRIBUTION WIDTH (BEAKER) (test 15.7 % 11.6-14.4 aqmv=453) PLATELET COUNT (BEAKER) (test aqpd=110) 243 K/CU MM 150-450 MEAN PLATELET VOLUME (BEAKER) (test psmo=021) 9.5 fL 9.4-12.4 NUCLEATED RED BLOOD CELLS (BEAKER) (test 0 /100 WBC 0-0 rotu=359) NEUTROPHILS RELATIVE PERCENT (BEAKER) (test 72 % ungf=613) LYMPHOCYTES RELATIVE PERCENT (BEAKER) (test 16 % kcaf=216) MONOCYTES RELATIVE PERCENT (BEAKER) (test 10 % ehbj=610) EOSINOPHILS RELATIVE PERCENT (BEAKER) (test 1 % fmnq=496) BASOPHILS RELATIVE PERCENT (BEAKER) (test 0 % rspi=637) NEUTROPHILS ABSOLUTE COUNT (BEAKER) (test 6.58 K/ L 1.78-5.38 uubc=230) LYMPHOCYTES ABSOLUTE COUNT (BEAKER) (test 1.48 K/ L 1.32-3.57 lfzs=393) MONOCYTES ABSOLUTE COUNT (BEAKER) (test 0.95 K/ L 0.30-0.82 qjwd=081) EOSINOPHILS ABSOLUTE COUNT (BEAKER) (test 0.05 K/ L 0.04-0.54 gprc=377) BASOPHILS ABSOLUTE COUNT (BEAKER) (test 0.04 K/ L 0.01-0.08 rahy=108) IMMATURE GRANULOCYTES-RELATIVE PERCENT (BEAKER) 0 % 0-1 (test omyv=9427) HEMOGLOBIN [id number] 10:23:00 Test Item Value Reference Range Comments HEMOGLOBIN A1C (BEAKER) (test vncm=713) 4.7 % 4.3-6.1 U/S, ABDOMINAL, [id number] 09:53:00Abdomen limited area? Add comment if clarification [...] Nelson MDReport Verified Date/Time:09/01/2017 09:53:12 Reading Location: [address] Ultrasound Reading Room SEDIMENTATION [id number] 08:01:00 Test Item Value Reference Range Comments SEDIMENTATION RATE, ERYTHROCYTE (BEAKER) (test 3 mm/HR 0-15 lxxa=182) TSH/FREE T4 IF [id number] 04:12:00 Test Item Value Reference Range Comments THYROID STIMULATING HORMONE (BEAKER) (test 0.36 uIU/mL 0.35-4.94 ejok=661) CREATINE KINASE (CK), TOTAL AND [id number] 04:03:00 Test Item Value Reference Range Comments CREATINE KINASE TOTAL (BEAKER) (test nbon=537) 29 U/L 29-200 CREATINE KINASE-MB (BEAKER) (test ceyr=463) 0.4 ng/mL 0.0-6.6 CREATINE KINASE-MB INDEX (BEAKER) (test ushs=184) 1.4 % CK-MB Reference Range:<6.7 Normal6.7-10.0 Borderline>10.0 AbnormalTROPONIN [id number] 04:03:00 Test Item Value Reference Range Comments TROPONIN I (BEAKER) (test svvb=950) < ng/mL 0.00-0.03 Troponin I (TnI) levels [...] failure, acidosis, acute neurological disease, and persistent tachyarrhythmia.[id number] 03:53:00 Test Item Value Reference Range Comments PHOSPHORUS (BEAKER) (test ravh=249) 3.5 mg/dL 2.3-4.7 [id number] 03:53:00 Test Item Value Reference Range Comments MAGNESIUM (BEAKER) (test ctnp=550) 1.7 mg/dL 1.6-2.6 BASIC METABOLIC [id number] 03:53:00 Test Item Value Reference Range Comments SODIUM (BEAKER) (test 137 meq/L 136-145 xofj=476) POTASSIUM (BEAKER) (test 3.8 meq/L 3.5-5.1 xaes=155) CHLORIDE (BEAKER) (test 105 meq/L 98-107 bmnu=030) CO2 (BEAKER) (test 23 meq/L 22-29 qljg=515) BLOOD UREA NITROGEN 7 mg/dL 7-21 (BEAKER) (test vecv=285) CREATININE (BEAKER) (test 0.62 mg/dL 0.57-1.25 akoe=379) GLUCOSE RANDOM (BEAKER) 102 mg/dL 70-105 (test zorq=331) CALCIUM (BEAKER) (test 9.0 mg/dL 8.4-10.2 heso=111) EGFR (BEAKER) (test 145 mL/min/1.73 sq m ESTIMATED GFR IS NOT dzkz=2705) ACCURATE CREATININE CLEARANCE IN PREDICTING GLOMERULAR FILTRATION RATE. ESTIMATED GFR IS NOT APPLICABLE FOR DIALYSIS PATIENTS. LIPID [id number] 03:53:00 Test Item Value Reference Range Comments TRIGLYCERIDES (BEAKER) (test jtlk=652) 76 mg/dL CHOLESTEROL (BEAKER) (test lknb=052) 118 mg/dL HDL CHOLESTEROL (BEAKER) (test yyzr=846) 37 mg/dL LDL CHOLESTEROL CALCULATED (BEAKER) (test 66 mg/dL oesu=858) Triglyceride Reference Range: Low Risk <150 Borderline 150- 199 High Risk 200-499 Very High Risk >=500Cholesterol Reference Range: Low Risk <200 Borderline 200-239 High Risk > 240HDL Cholesterol Reference Range: Low Risk >=60 High Risk <40LDL Cholesterol Reference Range: Optimal <100 Near Optimal 100-129 Borderline 130-159 High 160-189 Very High >=190HEPATIC FUNCTION [id number] 03:53:00 Test Item Value Reference Range Comments TOTAL PROTEIN (BEAKER) (test twwv=382) 6.8 gm/dL 6.0-8.3 ALBUMIN (BEAKER) (test bjeu=1420) 3.9 g/dL 3.5-5.0 BILIRUBIN TOTAL (BEAKER) (test fgsg=329) 1.2 mg/dL 0.2-1.2 BILIRUBIN DIRECT (BEAKER) (test muhp=771) 0.5 mg/dL 0.1-0.5 ALKALINE PHOSPHATASE (BEAKER) (test jcxb=160) 81 U/L 40-150 AST (SGOT) (BEAKER) (test gjpk=589) 13 U/L 5-34 ALT (SGPT) (BEAKER) (test exmx=838) 6 U/L 6-55 [id number] 03:53:00 Test Item Value Reference Range Comments AMYLASE (BEAKER) (test tctw=687) 383 U/L 25-125 [id number] 03:53:00 Test Item Value Reference Range Comments LIPASE (BEAKER) (test mglt=314) 266 U/L 8-78 C-REACTIVE [id number] 03:53:00 Test Item Value Reference Range Comments C-REACTIVE PROTEIN (BEAKER) (test ptkf=370) 0.23 mg/dL 0.00-0.50 CBC W/PLT COUNT & AUTO [id number] 03:38:00 Test Item Value Reference Range Comments WHITE BLOOD CELL COUNT (BEAKER) (test iqln=329) 10.7 K/ L 3.5-10.5 RED BLOOD CELL COUNT (BEAKER) (test ejku=659) 4.45 M/ L 4.63-6.08 HEMOGLOBIN (BEAKER) (test ylbv=698) 13.6 GM/DL 13.7-17.5 HEMATOCRIT (BEAKER) (test ohvt=967) 40.4 % 40.1-51.0 MEAN CORPUSCULAR VOLUME (BEAKER) (test bddx=666) 90.8 fL 79.0-92.2 MEAN CORPUSCULAR HEMOGLOBIN (BEAKER) (test 30.6 pg 25.7-32.2 giul=981) MEAN CORPUSCULAR HEMOGLOBIN CONC (BEAKER) (test 33.7 GM/DL 32.3-36.5 pskg=602) RED CELL DISTRIBUTION WIDTH (BEAKER) (test 15.5 % 11.6-14.4 bcbp=114) PLATELET COUNT (BEAKER) (test cfbo=006) 277 K/CU MM 150-450 MEAN PLATELET VOLUME (BEAKER) (test bfbd=578) 9.7 fL 9.4-12.4 NUCLEATED RED BLOOD CELLS (BEAKER) (test 0 /100 WBC 0-0 irss=546) NEUTROPHILS RELATIVE PERCENT (BEAKER) (test 70 % huti=012) LYMPHOCYTES RELATIVE PERCENT (BEAKER) (test 18 % tpyk=935) MONOCYTES RELATIVE PERCENT (BEAKER) (test 11 % vamq=296) EOSINOPHILS RELATIVE PERCENT (BEAKER) (test 0 % ckne=800) BASOPHILS RELATIVE PERCENT (BEAKER) (test 0 % nfbo=099) NEUTROPHILS ABSOLUTE COUNT (BEAKER) (test 7.46 K/ L 1.78-5.38 sqgm=194) LYMPHOCYTES ABSOLUTE COUNT (BEAKER) (test 1.93 K/ L 1.32-3.57 vpjz=142) MONOCYTES ABSOLUTE COUNT (BEAKER) (test 1.17 K/ L 0.30-0.82 nyhh=714) EOSINOPHILS ABSOLUTE COUNT (BEAKER) (test 0.02 K/ L 0.04-0.54 ezru=095) BASOPHILS ABSOLUTE COUNT (BEAKER) (test 0.03 K/ L 0.01-0.08 bozl=502) IMMATURE GRANULOCYTES-RELATIVE PERCENT (BEAKER) 0 % 0-1 (test cwec=9298) COMPREHENSIVE METABOLIC [id number] 14:02:00 Test Item Value Reference Range Comments TOTAL PROTEIN (BEAKER) 7.8 gm/dL 6.0-8.3 (test kqtp=017) ALBUMIN (BEAKER) (test 3.9 g/dL 3.5-5.0 pxmq=2023) ALKALINE PHOSPHATASE 62 U/L 40-150 (BEAKER) (test btea=410) BILIRUBIN TOTAL (BEAKER) 0.3 mg/dL 0.2-1.2 (test lgnd=652) SODIUM (BEAKER) (test 139 meq/L 136-145 cdau=947) POTASSIUM (BEAKER) (test 4.2 meq/L 3.5-5.1 sfeh=734) CHLORIDE (BEAKER) (test 104 meq/L 98-107 levk=393) CO2 (BEAKER) (test 26 meq/L 22-29 eqvq=387) BLOOD UREA NITROGEN 9 mg/dL 7-21 (BEAKER) (test tqlj=656) CREATININE (BEAKER) (test 0.64 mg/dL 0.57-1.25 gvlf=489) GLUCOSE RANDOM (BEAKER) 78 mg/dL 70-105 (test ttve=892) CALCIUM (BEAKER) (test 9.5 mg/dL 8.4-10.2 vqww=709) AST (SGOT) (BEAKER) (test 18 U/L 5-34 bwhy=949) ALT (SGPT) (BEAKER) (test 8 U/L 6-55 eohf=556) EGFR (BEAKER) (test 141 mL/min/1.73 sq ESTIMATED GFR IS NOT rcaz=3975) m ACCURATE CREATININE CLEARANCE IN PREDICTING GLOMERULAR FILTRATION RATE. ESTIMATED GFR IS NOT APPLICABLE FOR DIALYSIS PATIENTS. COMPREHENSIVE METABOLIC [id number] 06:08:00 Test Item Value Reference Range Comments TOTAL PROTEIN (BEAKER) 7.0 gm/dL 6.0-8.3 Specimen slightly (test czus=576) hemolyzed ALBUMIN (BEAKER) (test 3.4 g/dL 3.5-5.0 Specimen slightly vbrp=4868) hemolyzed ALKALINE PHOSPHATASE 58 U/L 40-150 (BEAKER) (test idma=614) BILIRUBIN TOTAL (BEAKER) 0.4 mg/dL 0.2-1.2 Specimen slightly (test fiev=694) hemolyzed SODIUM (BEAKER) (test 139 meq/L 136-145 hrlh=341) POTASSIUM (BEAKER) (test 4.5 meq/L 3.5-5.1 Specimen slightly fqyo=681) hemolyzed CHLORIDE (BEAKER) (test 103 meq/L 98-107 ctsk=765) CO2 (BEAKER) (test 27 meq/L 22-29 zdru=698) BLOOD UREA NITROGEN 2 mg/dL 7-21 (BEAKER) (test jmyd=070) CREATININE (BEAKER) (test 0.55 mg/dL 0.57-1.25 Specimen slightly xktz=162) hemolyzed GLUCOSE RANDOM (BEAKER) 85 mg/dL 70-105 (test hoks=901) CALCIUM (BEAKER) (test 9.3 mg/dL 8.4-10.2 ikvj=726) AST (SGOT) (BEAKER) (test 18 U/L 5-34 Specimen slightly qboi=472) hemolyzed ALT (SGPT) (BEAKER) (test 8 U/L 6-55 Specimen slightly duiq=230) hemolyzed EGFR (BEAKER) (test 168 mL/min/1.73 sq ESTIMATED GFR IS NOT xegq=4590) m ACCURATE CREATININE CLEARANCE IN PREDICTING GLOMERULAR FILTRATION RATE. ESTIMATED GFR IS NOT APPLICABLE FOR DIALYSIS PATIENTS. CBC (HEMOGRAM ONLY)2017-05-17 05:20:00 Test Item Value Reference Range Comments WHITE BLOOD CELL COUNT (BEAKER) (test pusy=197) 6.4 K/ L 3.5-10.5 RED BLOOD CELL COUNT (BEAKER) (test zpgh=819) 3.84 M/ L 4.63-6.08 HEMOGLOBIN (BEAKER) (test advd=180) 11.5 GM/DL 13.7-17.5 HEMATOCRIT (BEAKER) (test jqbb=211) 35.2 % 40.1-51.0 MEAN CORPUSCULAR VOLUME (BEAKER) (test zugh=898) 91.7 fL 79.0-92.2 MEAN CORPUSCULAR HEMOGLOBIN (BEAKER) (test 29.9 pg 25.7-32.2 bkmb=732) MEAN CORPUSCULAR HEMOGLOBIN CONC (BEAKER) (test 32.7 GM/DL 32.3-36.5 asxn=189) RED CELL DISTRIBUTION WIDTH (BEAKER) (test 14.1 % 11.6-14.4 fcwm=375) PLATELET COUNT (BEAKER) (test bxny=759) 434 K/CU MM 150-450 MEAN PLATELET VOLUME (BEAKER) (test zwsj=096) 9.4 fL 9.4-12.4 NUCLEATED RED BLOOD CELLS (BEAKER) (test 0 /100 WBC 0-0 tprn=018) HEPATIC FUNCTION [id number] 11:22:00 Test Item Value Reference Range Comments TOTAL PROTEIN (BEAKER) (test yfhr=894) 6.9 gm/dL 6.0-8.3 ALBUMIN (BEAKER) (test iijv=9010) 3.4 g/dL 3.5-5.0 BILIRUBIN TOTAL (BEAKER) (test hcnm=158) 0.4 mg/dL 0.2-1.2 BILIRUBIN DIRECT (BEAKER) (test tbqx=647) 0.2 mg/dL 0.1-0.5 ALKALINE PHOSPHATASE (BEAKER) (test togb=840) 65 U/L 40-150 AST (SGOT) (BEAKER) (test ipno=947) 14 U/L 5-34 ALT (SGPT) (BEAKER) (test hxjp=336) 8 U/L 6-55 CBC W/PLT COUNT & AUTO [id number] 11:16:00 Test Item Value Reference Range Comments WHITE BLOOD CELL COUNT (BEAKER) (test pmmr=223) 7.0 K/ L 3.5-10.5 RED BLOOD CELL COUNT (BEAKER) (test oieo=055) 3.90 M/ L 4.63-6.08 HEMOGLOBIN (BEAKER) (test ikos=161) 11.9 GM/DL 13.7-17.5 HEMATOCRIT (BEAKER) (test wvjb=715) 35.7 % 40.1-51.0 MEAN CORPUSCULAR VOLUME (BEAKER) (test ztux=116) 91.5 fL 79.0-92.2 MEAN CORPUSCULAR HEMOGLOBIN (BEAKER) (test 30.5 pg 25.7-32.2 czhw=561) MEAN CORPUSCULAR HEMOGLOBIN CONC (BEAKER) (test 33.3 GM/DL 32.3-36.5 frlg=119) RED CELL DISTRIBUTION WIDTH (BEAKER) (test 14.0 % 11.6-14.4 lfrg=980) PLATELET COUNT (BEAKER) (test qwwd=573) 452 K/CU MM 150-450 MEAN PLATELET VOLUME (BEAKER) (test wvxh=142) 9.0 fL 9.4-12.4 NUCLEATED RED BLOOD CELLS (BEAKER) (test 0 /100 WBC 0-0 okfe=285) NEUTROPHILS RELATIVE PERCENT (BEAKER) (test 59 % xtce=357) LYMPHOCYTES RELATIVE PERCENT (BEAKER) (test 21 % jyna=058) MONOCYTES RELATIVE PERCENT (BEAKER) (test 8 % aneh=207) EOSINOPHILS RELATIVE PERCENT (BEAKER) (test 10 % mdiq=594) BASOPHILS RELATIVE PERCENT (BEAKER) (test 1 % xxwv=476) NEUTROPHILS ABSOLUTE COUNT (BEAKER) (test 4.12 K/ L 1.78-5.38 vgjr=140) LYMPHOCYTES ABSOLUTE COUNT (BEAKER) (test 1.45 K/ L 1.32-3.57 wytc=015) MONOCYTES ABSOLUTE COUNT (BEAKER) (test 0.58 K/ L 0.30-0.82 hluu=210) EOSINOPHILS ABSOLUTE COUNT (BEAKER) (test 0.70 K/ L 0.04-0.54 jfrg=613) BASOPHILS ABSOLUTE COUNT (BEAKER) (test 0.10 K/ L 0.01-0.08 igms=211) IMMATURE GRANULOCYTES-RELATIVE PERCENT (BEAKER) 0 % 0-1 (test gcjf=7755) BASIC METABOLIC [id number] 06:43:00 Test Item Value Reference Range Comments SODIUM (BEAKER) (test 138 meq/L 136-145 xlba=018) POTASSIUM (BEAKER) (test 3.5 meq/L 3.5-5.1 nlnf=622) CHLORIDE (BEAKER) (test 100 meq/L 98-107 nnvc=493) CO2 (BEAKER) (test 27 meq/L 22-29 sqgn=524) BLOOD UREA NITROGEN 2 mg/dL 7-21 (BEAKER) (test zprg=955) CREATININE (BEAKER) (test 0.53 mg/dL 0.57-1.25 votc=644) GLUCOSE RANDOM (BEAKER) 82 mg/dL 70-105 (test jots=976) CALCIUM (BEAKER) (test 9.0 mg/dL 8.4-10.2 jngn=428) EGFR (BEAKER) (test 175 mL/min/1.73 sq m ESTIMATED GFR IS NOT ujqi=6370) ACCURATE CREATININE CLEARANCE IN PREDICTING GLOMERULAR FILTRATION RATE. ESTIMATED GFR IS NOT APPLICABLE FOR DIALYSIS PATIENTS. BASIC METABOLIC [id number] 05:14:00 Test Item Value Reference Range Comments SODIUM (BEAKER) (test 132 meq/L 136-145 mtvr=373) POTASSIUM (BEAKER) (test 3.8 meq/L 3.5-5.1 bifv=924) CHLORIDE (BEAKER) (test 101 meq/L 98-107 kfcc=878) CO2 (BEAKER) (test 18 meq/L 22-29 mbse=641) BLOOD UREA NITROGEN 4 mg/dL 7-21 (BEAKER) (test vedx=211) CREATININE (BEAKER) (test 0.52 mg/dL 0.57-1.25 hugh=206) GLUCOSE RANDOM (BEAKER) 58 mg/dL 70-105 (test xjrq=771) CALCIUM (BEAKER) (test 8.7 mg/dL 8.4-10.2 cggu=129) EGFR (BEAKER) (test 179 mL/min/1.73 sq m ESTIMATED GFR IS NOT tfhb=7597) ACCURATE CREATININE CLEARANCE IN PREDICTING GLOMERULAR FILTRATION RATE. ESTIMATED GFR IS NOT APPLICABLE FOR DIALYSIS PATIENTS. CBC (HEMOGRAM ONLY)2017-05-15 04:57:00 Test Item Value Reference Range Comments WHITE BLOOD CELL COUNT (BEAKER) (test eqto=736) 13.4 K/ L 3.5-10.5 RED BLOOD CELL COUNT (BEAKER) (test cajx=636) 3.81 M/ L 4.63-6.08 HEMOGLOBIN (BEAKER) (test icxg=257) 11.4 GM/DL 13.7-17.5 HEMATOCRIT (BEAKER) (test savr=355) 35.1 % 40.1-51.0 MEAN CORPUSCULAR VOLUME (BEAKER) (test uais=632) 92.1 fL 79.0-92.2 MEAN CORPUSCULAR HEMOGLOBIN (BEAKER) (test 29.9 pg 25.7-32.2 wwuc=743) MEAN CORPUSCULAR HEMOGLOBIN CONC (BEAKER) (test 32.5 GM/DL 32.3-36.5 slhw=594) RED CELL DISTRIBUTION WIDTH (BEAKER) (test 14.3 % 11.6-14.4 wtwn=363) PLATELET COUNT (BEAKER) (test iltq=139) 502 K/CU MM 150-450 MEAN PLATELET VOLUME (BEAKER) (test ysxq=866) 9.6 fL 9.4-12.4 NUCLEATED RED BLOOD CELLS (BEAKER) (test 0 /100 WBC 0-0 ehuv=700) LIPID [id number] 05:00:00 Test Item Value Reference Range Comments TRIGLYCERIDES (BEAKER) (test xcjx=635) 71 mg/dL CHOLESTEROL (BEAKER) (test vnsa=373) 108 mg/dL HDL CHOLESTEROL (BEAKER) (test ljil=811) 22 mg/dL LDL CHOLESTEROL CALCULATED (BEAKER) (test 72 mg/dL goxb=748) Triglyceride Reference Range: Low Risk <150 Borderline 150- 199 High Risk 200-499 Very High Risk >=500Cholesterol Reference Range: Low Risk <200 Borderline 200-239 High Risk > 240HDL Cholesterol Reference Range: Low Risk >=60 High Risk <40LDL Cholesterol Reference Range: Optimal <100 Near Optimal 100-129 Borderline 130-159 High 160-189 Very High >=190BASIC METABOLIC [id number] 05:00:00 Test Item Value Reference Range Comments SODIUM (BEAKER) (test 133 meq/L 136-145 gllb=793) POTASSIUM (BEAKER) (test 4.1 meq/L 3.5-5.1 hjus=086) CHLORIDE (BEAKER) (test 105 meq/L 98-107 xzuw=846) CO2 (BEAKER) (test 17 meq/L 22-29 bfyy=214) BLOOD UREA NITROGEN 8 mg/dL 7-21 (BEAKER) (test fojf=127) CREATININE (BEAKER) (test 0.51 mg/dL 0.57-1.25 fniy=810) GLUCOSE RANDOM (BEAKER) 54 mg/dL 70-105 (test xgpx=926) CALCIUM (BEAKER) (test 8.4 mg/dL 8.4-10.2 fetm=169) EGFR (BEAKER) (test 183 mL/min/1.73 sq m ESTIMATED GFR IS NOT ydrh=5838) ACCURATE CREATININE CLEARANCE IN PREDICTING GLOMERULAR FILTRATION RATE. ESTIMATED GFR IS NOT APPLICABLE FOR DIALYSIS PATIENTS. HEPATIC FUNCTION [id number] 05:00:00 Test Item Value Reference Range Comments TOTAL PROTEIN (BEAKER) (test uvef=966) 6.3 gm/dL 6.0-8.3 ALBUMIN (BEAKER) (test bslx=2995) 3.2 g/dL 3.5-5.0 BILIRUBIN TOTAL (BEAKER) (test aqdf=301) 0.7 mg/dL 0.2-1.2 BILIRUBIN DIRECT (BEAKER) (test fffv=518) 0.3 mg/dL 0.1-0.5 ALKALINE PHOSPHATASE (BEAKER) (test edpi=695) 62 U/L 40-150 AST (SGOT) (BEAKER) (test nedv=586) 13 U/L 5-34 ALT (SGPT) (BEAKER) (test gnyz=632) 9 U/L 6-55 [id number] 05:00:00 Test Item Value Reference Range Comments LIPASE (BEAKER) (test bfok=286) 1007 U/L 8-78 CBC (HEMOGRAM ONLY)2017-05-14 04:39:00 Test Item Value Reference Range Comments WHITE BLOOD CELL COUNT (BEAKER) (test hajf=555) 16.6 K/ L 3.5-10.5 RED BLOOD CELL COUNT (BEAKER) (test kcwu=153) 3.98 M/ L 4.63-6.08 HEMOGLOBIN (BEAKER) (test cvjp=675) 12.0 GM/DL 13.7-17.5 HEMATOCRIT (BEAKER) (test vojs=910) 37.2 % 40.1-51.0 MEAN CORPUSCULAR VOLUME (BEAKER) (test jgts=259) 93.5 fL 79.0-92.2 MEAN CORPUSCULAR HEMOGLOBIN (BEAKER) (test 30.2 pg 25.7-32.2 vner=848) MEAN CORPUSCULAR HEMOGLOBIN CONC (BEAKER) (test 32.3 GM/DL 32.3-36.5 niwv=013) RED CELL DISTRIBUTION WIDTH (BEAKER) (test 14.5 % 11.6-14.4 sdjy=515) PLATELET COUNT (BEAKER) (test oouu=084) 527 K/CU MM 150-450 MEAN PLATELET VOLUME (BEAKER) (test ggka=494) 9.5 fL 9.4-12.4 NUCLEATED RED BLOOD CELLS (BEAKER) (test 0 /100 WBC 0-0 hxwb=837) MR, ABDOMEN, [id number] 12:25:00FINAL REPORT MRI of the abdomen, MRCP. [...] biliary dilatation or choledocholithiasis. Signed: [facility] Verified Date/Time: 03/13/2017 12:25:41 Reading Location: [facility] [id number] [facility] Consult Reading Room Electronically signed by: KIKO VEE M.D. on 12:25 [facility] [id number] 05:05:00 Test Item Value Reference Range Comments SODIUM (BEAKER) (test 139 meq/L 136-145 ldmp=743) POTASSIUM (BEAKER) (test 3.7 meq/L 3.5-5.1 vuug=411) CHLORIDE (BEAKER) (test 108 meq/L 98-107 wlnz=169) CO2 (BEAKER) (test 22 meq/L 22-29 jswz=456) BLOOD UREA NITROGEN 4 mg/dL 7-21 (BEAKER) (test ymsr=278) CREATININE (BEAKER) (test 0.58 mg/dL 0.57-1.25 czgw=287) GLUCOSE RANDOM (BEAKER) 95 mg/dL 70-105 (test ymos=740) CALCIUM (BEAKER) (test 8.5 mg/dL 8.4-10.2 fbkb=756) EGFR (BEAKER) (test 158 mL/min/1.73 sq m ESTIMATED GFR IS NOT agal=4393) ACCURATE CREATININE CLEARANCE IN PREDICTING GLOMERULAR FILTRATION RATE. ESTIMATED GFR IS NOT APPLICABLE FOR DIALYSIS PATIENTS. CBC W/PLT COUNT & AUTO [id number] 04:49:00 Test Item Value Reference Range Comments WHITE BLOOD CELL COUNT (BEAKER) (test udtm=404) 6.3 K/ L 3.5-10.5 RED BLOOD CELL COUNT (BEAKER) (test uuci=478) 4.32 M/ L 4.63-6.08 HEMOGLOBIN (BEAKER) (test djwt=030) 13.7 GM/DL 13.7-17.5 HEMATOCRIT (BEAKER) (test asxm=628) 40.3 % 40.1-51.0 MEAN CORPUSCULAR VOLUME (BEAKER) (test cbgo=354) 93.3 fL 79.0-92.2 MEAN CORPUSCULAR HEMOGLOBIN (BEAKER) (test 31.7 pg 25.7-32.2 aeki=510) MEAN CORPUSCULAR HEMOGLOBIN CONC (BEAKER) (test 34.0 GM/DL 32.3-36.5 khar=885) RED CELL DISTRIBUTION WIDTH (BEAKER) (test 11.9 % 11.6-14.4 ogih=515) PLATELET COUNT (BEAKER) (test breb=606) 286 K/CU MM 150-450 MEAN PLATELET VOLUME (BEAKER) (test tzzs=725) 9.4 fL 9.4-12.4 NUCLEATED RED BLOOD CELLS (BEAKER) (test 0 /100 WBC 0-0 hgqo=645) NEUTROPHILS RELATIVE PERCENT (BEAKER) (test 51 % uodi=137) LYMPHOCYTES RELATIVE PERCENT (BEAKER) (test 31 % lrah=287) MONOCYTES RELATIVE PERCENT (BEAKER) (test 11 % cyzl=041) EOSINOPHILS RELATIVE PERCENT (BEAKER) (test 6 % xqbg=834) BASOPHILS RELATIVE PERCENT (BEAKER) (test 1 % wfyi=548) NEUTROPHILS ABSOLUTE COUNT (BEAKER) (test 3.21 K/ L 1.78-5.38 qlqv=473) LYMPHOCYTES ABSOLUTE COUNT (BEAKER) (test 1.91 K/ L 1.32-3.57 qkfy=315) MONOCYTES ABSOLUTE COUNT (BEAKER) (test 0.68 K/ L 0.30-0.82 toua=766) EOSINOPHILS ABSOLUTE COUNT (BEAKER) (test 0.40 K/ L 0.04-0.54 wavp=383) BASOPHILS ABSOLUTE COUNT (BEAKER) (test 0.04 K/ L 0.01-0.08 ebge=883) IMMATURE GRANULOCYTES-RELATIVE PERCENT (BEAKER) 1 % 0-1 (test jqpv=3925) CBC W/PLT COUNT & AUTO [id number] 04:52:00 Test Item Value Reference Range Comments WHITE BLOOD CELL COUNT (BEAKER) (test ytph=116) 6.2 K/ L 3.5-10.5 RED BLOOD CELL COUNT (BEAKER) (test majb=593) 4.31 M/ L 4.63-6.08 HEMOGLOBIN (BEAKER) (test meht=991) 13.7 GM/DL 13.7-17.5 HEMATOCRIT (BEAKER) (test tyyu=950) 41.1 % 40.1-51.0 MEAN CORPUSCULAR VOLUME (BEAKER) (test ifgj=686) 95.4 fL 79.0-92.2 MEAN CORPUSCULAR HEMOGLOBIN (BEAKER) (test 31.8 pg 25.7-32.2 dxmr=374) MEAN CORPUSCULAR HEMOGLOBIN CONC (BEAKER) (test 33.3 GM/DL 32.3-36.5 mcpf=429) RED CELL DISTRIBUTION WIDTH (BEAKER) (test 12.1 % 11.6-14.4 clje=307) PLATELET COUNT (BEAKER) (test brkh=225) 295 K/CU MM 150-450 MEAN PLATELET VOLUME (BEAKER) (test paee=106) 9.5 fL 9.4-12.4 NUCLEATED RED BLOOD CELLS (BEAKER) (test 0 /100 WBC 0-0 icen=143) NEUTROPHILS RELATIVE PERCENT (BEAKER) (test 51 % vdws=833) LYMPHOCYTES RELATIVE PERCENT (BEAKER) (test 31 % sxxb=732) MONOCYTES RELATIVE PERCENT (BEAKER) (test 11 % bwyt=966) EOSINOPHILS RELATIVE PERCENT (BEAKER) (test 7 % zhhm=386) BASOPHILS RELATIVE PERCENT (BEAKER) (test 1 % uewm=931) NEUTROPHILS ABSOLUTE COUNT (BEAKER) (test 3.17 K/ L 1.78-5.38 fewg=163) LYMPHOCYTES ABSOLUTE COUNT (BEAKER) (test 1.89 K/ L 1.32-3.57 awsu=751) MONOCYTES ABSOLUTE COUNT (BEAKER) (test 0.65 K/ L 0.30-0.82 utjb=775) EOSINOPHILS ABSOLUTE COUNT (BEAKER) (test 0.41 K/ L 0.04-0.54 ypyo=176) BASOPHILS ABSOLUTE COUNT (BEAKER) (test 0.05 K/ L 0.01-0.08 vpdc=661) IMMATURE GRANULOCYTES-RELATIVE PERCENT (BEAKER) 1 % 0-1 (test hqck=5660) COMPREHENSIVE METABOLIC [id number] 11:20:00 Test Item Value Reference Range Comments TOTAL PROTEIN (BEAKER) 7.2 gm/dL 6.0-8.3 (test uouq=455) ALBUMIN (BEAKER) (test 3.7 g/dL 3.5-5.0 guan=8683) ALKALINE PHOSPHATASE 73 U/L 40-150 (BEAKER) (test xfiv=793) BILIRUBIN TOTAL (BEAKER) 0.6 mg/dL 0.2-1.2 (test ipdd=940) SODIUM (BEAKER) (test 135 meq/L 136-145 iofj=304) POTASSIUM (BEAKER) (test 5.0 meq/L 3.5-5.1 mzvz=976) CHLORIDE (BEAKER) (test 109 meq/L 98-107 sawv=423) CO2 (BEAKER) (test 14 meq/L 22-29 rrtr=460) BLOOD UREA NITROGEN 6 mg/dL 7-21 (BEAKER) (test ybjb=113) CREATININE (BEAKER) (test 0.62 mg/dL 0.57-1.25 laaa=477) GLUCOSE RANDOM (BEAKER) 45 mg/dL 70-105 (test ythc=026) CALCIUM (BEAKER) (test 8.6 mg/dL 8.4-10.2 cjxf=411) AST (SGOT) (BEAKER) (test 17 U/L 5-34 hjxc=337) ALT (SGPT) (BEAKER) (test 14 U/L 6-55 jvix=342) EGFR (BEAKER) (test 146 mL/min/1.73 sq ESTIMATED GFR IS NOT vvyt=7126) m ACCURATE CREATININE CLEARANCE IN PREDICTING GLOMERULAR FILTRATION RATE. ESTIMATED GFR IS NOT APPLICABLE FOR DIALYSIS PATIENTS. CBC W/PLT COUNT & AUTO [id number] 09:54:00 Test Item Value Reference Range Comments WHITE BLOOD CELL COUNT (BEAKER) (test dfry=331) 7.4 K/ L 3.5-10.5 RED BLOOD CELL COUNT (BEAKER) (test qcrl=385) 4.32 M/ L 4.63-6.08 HEMOGLOBIN (BEAKER) (test xytu=729) 13.6 GM/DL 13.7-17.5 HEMATOCRIT (BEAKER) (test tjfn=299) 41.8 % 40.1-51.0 MEAN CORPUSCULAR VOLUME (BEAKER) (test hypw=996) 96.8 fL 79.0-92.2 MEAN CORPUSCULAR HEMOGLOBIN (BEAKER) (test 31.5 pg 25.7-32.2 wniy=845) MEAN CORPUSCULAR HEMOGLOBIN CONC (BEAKER) (test 32.5 GM/DL 32.3-36.5 stqv=239) RED CELL DISTRIBUTION WIDTH (BEAKER) (test 12.1 % 11.6-14.4 aikf=490) PLATELET COUNT (BEAKER) (test yzvu=761) 277 K/CU MM 150-450 MEAN PLATELET VOLUME (BEAKER) (test bbtj=967) 9.7 fL 9.4-12.4 NUCLEATED RED BLOOD CELLS (BEAKER) (test 0 /100 WBC 0-0 azpb=642) NEUTROPHILS RELATIVE PERCENT (BEAKER) (test 57 % ysaf=302) LYMPHOCYTES RELATIVE PERCENT (BEAKER) (test 29 % wmxf=987) MONOCYTES RELATIVE PERCENT (BEAKER) (test 8 % ngtw=735) EOSINOPHILS RELATIVE PERCENT (BEAKER) (test 5 % agri=302) BASOPHILS RELATIVE PERCENT (BEAKER) (test 1 % fkia=072) NEUTROPHILS ABSOLUTE COUNT (BEAKER) (test 4.23 K/ L 1.78-5.38 nxwg=108) LYMPHOCYTES ABSOLUTE COUNT (BEAKER) (test 2.10 K/ L 1.32-3.57 iniy=970) MONOCYTES ABSOLUTE COUNT (BEAKER) (test 0.57 K/ L 0.30-0.82 ratg=732) EOSINOPHILS ABSOLUTE COUNT (BEAKER) (test 0.38 K/ L 0.04-0.54 elzh=995) BASOPHILS ABSOLUTE COUNT (BEAKER) (test 0.05 K/ L 0.01-0.08 tonv=326) IMMATURE GRANULOCYTES-RELATIVE PERCENT (BEAKER) 1 % 0-1 (test djpq=7590) (MANUAL DIFFERENTIAL)2017-03-11 09:54:00 Test Item Value Reference Range Comments TOTAL COUNTED (BEAKER) (test egvk=2287) WBC MORPHOLOGY (BEAKER) (test njkn=091) Normal PLT MORPHOLOGY (BEAKER) (test qfdz=686) Normal RBC MORPHOLOGY (BEAKER) (test yyre=690) Normal CBC W/PLT COUNT & AUTO [id number] 09:09:00 Test Item Value Reference Range Comments WHITE BLOOD CELL COUNT (BEAKER) (test hfuz=385) 8.9 K/ L 3.5-10.5 RED BLOOD CELL COUNT (BEAKER) (test gzsf=064) 4.25 M/ L 4.63-6.08 HEMOGLOBIN (BEAKER) (test sstb=829) 13.6 GM/DL 13.7-17.5 HEMATOCRIT (BEAKER) (test gacp=278) 40.7 % 40.1-51.0 MEAN CORPUSCULAR VOLUME (BEAKER) (test vscu=476) 95.8 fL 79.0-92.2 MEAN CORPUSCULAR HEMOGLOBIN (BEAKER) (test 32.0 pg 25.7-32.2 kgao=950) MEAN CORPUSCULAR HEMOGLOBIN CONC (BEAKER) (test 33.4 GM/DL 32.3-36.5 qckn=865) RED CELL DISTRIBUTION WIDTH (BEAKER) (test 12.1 % 11.6-14.4 npmi=558) PLATELET COUNT (BEAKER) (test kbbz=197) 274 K/CU MM 150-450 MEAN PLATELET VOLUME (BEAKER) (test vydd=814) 9.8 fL 9.4-12.4 NUCLEATED RED BLOOD CELLS (BEAKER) (test 0 /100 WBC 0-0 oxml=543) NEUTROPHILS RELATIVE PERCENT (BEAKER) (test 62 % gqjx=173) LYMPHOCYTES RELATIVE PERCENT (BEAKER) (test 24 % hiil=588) MONOCYTES RELATIVE PERCENT (BEAKER) (test 7 % aoij=743) EOSINOPHILS RELATIVE PERCENT (BEAKER) (test 5 % xrhr=348) BASOPHILS RELATIVE PERCENT (BEAKER) (test 1 % piuc=391) NEUTROPHILS ABSOLUTE COUNT (BEAKER) (test 5.55 K/ L 1.78-5.38 kzwt=285) LYMPHOCYTES ABSOLUTE COUNT (BEAKER) (test 2.14 K/ L 1.32-3.57 wxsw=104) MONOCYTES ABSOLUTE COUNT (BEAKER) (test 0.64 K/ L 0.30-0.82 eelw=033) EOSINOPHILS ABSOLUTE COUNT (BEAKER) (test 0.48 K/ L 0.04-0.54 sieo=435) BASOPHILS ABSOLUTE COUNT (BEAKER) (test 0.07 K/ L 0.01-0.08 vcnz=892) IMMATURE GRANULOCYTES-RELATIVE PERCENT (BEAKER) 0 % 0-1 (test sojs=5385) (MANUAL DIFFERENTIAL)2017-03-10 09:09:00 Test Item Value Reference Range Comments TOTAL COUNTED (BEAKER) (test pvbq=1274) WBC MORPHOLOGY (BEAKER) (test uikb=222) Normal PLT MORPHOLOGY (BEAKER) (test xtjx=372) Normal RBC MORPHOLOGY (BEAKER) (test dwmz=751) Normal COMPREHENSIVE METABOLIC [id number] 07:30:00 Test Item Value Reference Range Comments TOTAL PROTEIN (BEAKER) 6.8 gm/dL 6.0-8.3 (test vkwv=064) ALBUMIN (BEAKER) (test 3.6 g/dL 3.5-5.0 lblp=5352) ALKALINE PHOSPHATASE 77 U/L 40-150 (BEAKER) (test wvkz=764) BILIRUBIN TOTAL (BEAKER) 0.6 mg/dL 0.2-1.2 (test qfoo=956) SODIUM (BEAKER) (test 136 meq/L 136-145 xtvl=623) POTASSIUM (BEAKER) (test 4.3 meq/L 3.5-5.1 ypwj=496) CHLORIDE (BEAKER) (test 105 meq/L 98-107 hdpl=528) CO2 (BEAKER) (test 19 meq/L 22-29 xuwe=835) BLOOD UREA NITROGEN 6 mg/dL 7-21 (BEAKER) (test fvzt=595) CREATININE (BEAKER) (test 0.57 mg/dL 0.57-1.25 topk=132) GLUCOSE RANDOM (BEAKER) 52 mg/dL 70-105 (test iuhx=054) CALCIUM (BEAKER) (test 8.2 mg/dL 8.4-10.2 heib=941) AST (SGOT) (BEAKER) (test 17 U/L 5-34 lsgq=654) ALT (SGPT) (BEAKER) (test 14 U/L 6-55 txyr=339) EGFR (BEAKER) (test 161 mL/min/1.73 sq ESTIMATED GFR IS NOT nwdo=4460) m ACCURATE CREATININE CLEARANCE IN PREDICTING GLOMERULAR FILTRATION RATE. ESTIMATED GFR IS NOT APPLICABLE FOR DIALYSIS PATIENTS. CBC W/PLT COUNT & AUTO [id number] 10:49:00 Test Item Value Reference Range Comments WHITE BLOOD CELL COUNT (BEAKER) (test iflo=938) 6.9 K/ L 3.5-10.5 RED BLOOD CELL COUNT (BEAKER) (test crrz=038) 3.83 M/ L 4.63-6.08 HEMOGLOBIN (BEAKER) (test gerb=928) 12.5 GM/DL 13.7-17.5 HEMATOCRIT (BEAKER) (test vcqe=358) 36.7 % 40.1-51.0 MEAN CORPUSCULAR VOLUME (BEAKER) (test nfbs=095) 95.8 fL 79.0-92.2 MEAN CORPUSCULAR HEMOGLOBIN (BEAKER) (test 32.6 pg 25.7-32.2 xypq=858) MEAN CORPUSCULAR HEMOGLOBIN CONC (BEAKER) (test 34.1 GM/DL 32.3-36.5 cmdq=442) RED CELL DISTRIBUTION WIDTH (BEAKER) (test 12.4 % 11.6-14.4 zemu=186) PLATELET COUNT (BEAKER) (test lxjn=369) 267 K/CU MM 150-450 MEAN PLATELET VOLUME (BEAKER) (test jqrh=801) 9.7 fL 9.4-12.4 NUCLEATED RED BLOOD CELLS (BEAKER) (test 0 /100 WBC 0-0 mcby=026) NEUTROPHILS RELATIVE PERCENT (BEAKER) (test 60 % kuxz=966) LYMPHOCYTES RELATIVE PERCENT (BEAKER) (test 26 % gfra=038) MONOCYTES RELATIVE PERCENT (BEAKER) (test 7 % uygu=573) EOSINOPHILS RELATIVE PERCENT (BEAKER) (test 6 % dawd=849) BASOPHILS RELATIVE PERCENT (BEAKER) (test 1 % cgcs=667) NEUTROPHILS ABSOLUTE COUNT (BEAKER) (test 4.15 K/ L 1.78-5.38 lmcb=289) LYMPHOCYTES ABSOLUTE COUNT (BEAKER) (test 1.82 K/ L 1.32-3.57 alpy=652) MONOCYTES ABSOLUTE COUNT (BEAKER) (test 0.47 K/ L 0.30-0.82 brjg=618) EOSINOPHILS ABSOLUTE COUNT (BEAKER) (test 0.38 K/ L 0.04-0.54 oqin=734) BASOPHILS ABSOLUTE COUNT (BEAKER) (test 0.04 K/ L 0.01-0.08 yeso=332) COMPREHENSIVE METABOLIC [id number] 10:45:00 Test Item Value Reference Range Comments TOTAL PROTEIN (BEAKER) 6.2 gm/dL 6.0-8.3 (test shxc=714) ALBUMIN (BEAKER) (test 3.3 g/dL 3.5-5.0 sqmw=3455) ALKALINE PHOSPHATASE 70 U/L 40-150 (BEAKER) (test pmde=589) BILIRUBIN TOTAL (BEAKER) 0.4 mg/dL 0.2-1.2 (test pire=770) SODIUM (BEAKER) (test 138 meq/L 136-145 vhzr=996) POTASSIUM (BEAKER) (test 3.5 meq/L 3.5-5.1 zezf=831) CHLORIDE (BEAKER) (test 109 meq/L 98-107 qopk=314) CO2 (BEAKER) (test 23 meq/L 22-29 zsax=738) BLOOD UREA NITROGEN 5 mg/dL 7-21 (BEAKER) (test tmfw=951) CREATININE (BEAKER) (test 0.54 mg/dL 0.57-1.25 lrza=732) GLUCOSE RANDOM (BEAKER) 77 mg/dL 70-105 (test cdoc=204) CALCIUM (BEAKER) (test 7.6 mg/dL 8.4-10.2 gleh=559) AST (SGOT) (BEAKER) (test 18 U/L 5-34 gwhl=350) ALT (SGPT) (BEAKER) (test 15 U/L 6-55 gyjt=979) EGFR (BEAKER) (test 171 mL/min/1.73 sq ESTIMATED GFR IS NOT isag=1109) m ACCURATE CREATININE CLEARANCE IN PREDICTING GLOMERULAR FILTRATION RATE. ESTIMATED GFR IS NOT APPLICABLE FOR DIALYSIS PATIENTS. [id number] 10:29:00 Test Item Value Reference Range Comments TRIGLYCERIDES (BEAKER) (test sgja=641) 58 mg/dL TRIGLYCERIDE REFERENCE RANGELow Risk <150Borderline Risk 150-199High Risk 200-499Very High Risk>=[id number] 10:29:00 Test Item Value Reference Range Comments MAGNESIUM (BEAKER) (test mxom=426) 1.4 mg/dL 1.6-2.6 [id number] 10:29:00 Test Item Value Reference Range Comments LIPASE (BEAKER) (test otcm=232) 536 U/L 8-78 PROTHROMBIN [id number] 10:22:00 Test Item Value Reference Range Comments PROTIME (BEAKER) (test nyuq=336) 14.3 seconds 11.7-14.7 INR (BEAKER) (test dfmv=147) 1.1 <=5.9 RECOMMENDED COUMADIN/WARFARIN INR THERAPY RANGESSTANDARD DOSE: 2.0 - 3.0 Includes: PROPHYLAXIS forvenous thrombosis, systemic embolization; TREATMENT for venous thrombosis and/or pulmonary embolus.HIGH RISK: Target INR is 2.5-3.5 for patients with mechanical heart valves.
--- OUTSIDE RECORDS SUMMARY | 2018-04-29 12:41 | XMS REPORT ---
[...] End Status Dosage System Date Date Apixaban [facility] [address]-52 2.5 MG Orally Active not defined Tramadol HCl [facility] 82671145495 50 MG Orally Active 1 tablet every 6 hrs as needed Results No Known Results Summary Purpose eClinicalWorks Submission
[2018-04-29] MEDS ORDERED: ONDANSETRON 4 MG/2 ML VIAL ONE (15:08)
[2018-04-29] MEDS ORDERED: MORPHINE 4 MG/ML SYR ONE (15:08)
[2018-04-29] MEDS ORDERED: NA CHLORIDE 0.9% 1,000 ML ONE (15:08)
[2018-04-29] MEDS ORDERED: PANTOPRAZOLE 40 MG INJ ONE (15:08)
[2018-04-29 15:29] LABS: Absolute Lymphocytes (CBC) 1.9 K/uL (0.7-4.9); Absolute Monocytes 0.5 K/uL (0.1-1.3); Absolute Neutrophil 3.9 K/uL (1.8-8.0); Basophils % 0.9 % (0-1.3); Eosinophils % 0.6 % (0-4.4); Hematocrit 44.9 % (39.6-49.0); Lymphocytes % 29.8 % (15.3-44.8); MPV 8.1 fL (7.6-11.3); Monocytes % 8.5 % (3.3-12.3); RBC Red Blood Cell Count 4.63 M/uL (4.33-5.43)
[2018-04-29 15:40] LABS: ALT/SGPT 36 U/L (12-78); AST/SGOT 44 U/L (15-37); Albumin 4.4 g/dL (3.4-5.0); Alkaline Phosphatase 73 U/L (45-117); BUN Blood Urea Nitrogen 4 mg/dL (7-18); Bicarbonate 27 mmol/L (21-32); Bilirubin Direct 0.2 mg/dL (0-0.2); Bilirubin Total 0.5 mg/dL (0.2-1.0); Glucose Level 81 mg/dL (74-106); Lipase 136 U/L (73-393); Magnesium 1.8 mg/dL (1.8-2.4); Potassium 3.2 mmol/L (3.5-5.1); Sodium Level 144 mmol/L (136-145)
[2018-04-29] MEDS ORDERED: FOLIC ACID 1 MG, MULTIVITAMINS INJ 10 ML, THIAMINE HCL 100 MG in NA CHLORIDE 0.9% 1,000 ML IV SCH (17:00)
--- NOTE | 2018-04-29 17:18 | RAD REPORT ---
EXAM DESCRIPTION: CTAbdomen Pelvis W Contrast - 04/29/2018 4:59 pm CLINICAL HISTORY: Abdominal pain. upper abdomen pain COMPARISON: Abdomen Pelvis W Contrast dated 03/21/2018; Abdomen Pelvis W Contrast dated 10/04/2017 ; Abdomen Pelvis W Contrast dated 09/13/2017; Abdomen Pelvis W Contrast dated 08/31/2017 TECHNIQUE: Biphasic CT imaging of the abdomen and pelvis was performed with 100 ml non-ionic IV cont rast. All CT scans are performed using dose optimization technique as appropriate and may include automated exposure control or mA/KV adjustment according to patient size. FINDINGS: The lung bases are clear. Mild diffuse fatty liver is present. No focal liver lesion or biliary dilatation seen. The spleen, ad renal glands and kidneys no acute process. Several were also present the pancreatic head region. Area s of dystrophic calcification with subtle dilatation of the pancreatic duct seen suggesting chronic p ancreatitis. No bowel obstruction, free air, free fluid or abscess. The appendix is normal. No evidence of signi ficant lymphadenopathy. No suspicious bony findings. IMPRESSION: No acute intra-abdominal or pelvic finding. Chronic pancreatitis. Fatty liver.
[2018-04-29] MEDS ORDERED: HALOPERIDOL LACT 5 MG/ML INJ ONE (19:03)
[2018-04-29] MEDS ORDERED: POTASSIUM 25 MEQ EFFERV TAB ONE (19:54)
[2018-04-29] MEDS ORDERED: LIDOCAINE VISCOUS 2% SOLN 15 ML UDC ONE (19:54)
[2018-04-29] MEDS ORDERED: MAGNE/ALUM HYDROXD 30 ML UCUP ONE (19:54)
[2018-04-29 20:05] LABS: Urine Blood NEGATIVE (NEG); Urine Glucose NEGATIVE (NEG); Urine Protein 1+ (NEG); Urine Specific Gravity 1.015 (1.005-1.030); Urine pH 8.5 (5.0-7.0)
[2018-04-29 20:36] LABS: Barbiturates NEGATIVE (NEGATIVE); Benzodiazepines NEGATIVE (NEGATIVE); Cocaine NEGATIVE (NEGATIVE); METHAMPHETAM NEGATIVE (NEGATIVE); Methadone NEGATIVE (NEGATIVE); Opiates POSITIVE (NEGATIVE); Phencyclidine NEGATIVE (NEGATIVE); THC Cannibis NEGATIVE (NEGATIVE)
--- NOTE | 2018-04-29 21:52 | ER ---
Nurse's Notes [facility] Name: Ankit Rosales Age: 37 yrs Sex: Male : 1980 Arrival Date: 04/29/2018 Time: 12:36 Bed 19 Private MD: Diagnosis: Other chronic pancreatitis;Alcohol abuse Presentation: 04/29 12:37 Presenting complaint: EMS states: RUQ pain, N/V/D that began yesterday. Pt reports a ss history of pancreatitis, and states that this feels similar. Transition of care: patient was not received from another setting of care. Onset of symptoms was April 28, 2018. Risk Assessment: Do you want to hurt yourself or someone else? Patient reports no desire to harm self or others. Initial Sepsis Screen: Does the patient meet any 2 criteria? No. Patient's initial sepsis screen is negative. Does the patient have a suspected source of infection? No. Patient's initial sepsis screen is negative. Care prior to arrival: None. 12:37 Method Of Arrival: EMS: [facility] ss 12:37 Acuity: KRAIG 3 ss Historical: - Allergies: 12:39 NKDA; ss - PMHx: 12:39 GALLSTONES; Cirrhosis; left leg DVT; Pancreatitis; ss 12:39 etoh abuse; ss - PSHx: 12:39 TUBE COILS; ss - Immunization history:: Adult Immunizations up to date. - Social history:: Smoking status: Patient uses tobacco products, smokes one pack cigarettes per day. Patient uses alcohol, on a daily basis. - Ebola Screening: : Patient denies exposure to infectious person Patient denies travel to an Ebola-affected area in the 21 days before illness onset. Screenin:00 Abuse screen: Denies threats or abuse. Denies injuries from another. Nutritional sg screening: No deficits noted. Tuberculosis screening: No symptoms or risk factors identified. Never had TB. Fall Risk None identified. Assessment: 14:40 General: Appears in no apparent distress. comfortable, well groomed, well developed, sg well nourished, Behavior is calm, cooperative, appropriate for age. Pain: Complains of pain in abdomen Quality of pain is described as aching, crampy. Neuro: No deficits noted. Cardiovascular: Patient's skin is warm and dry. Chest pain is denied. Respiratory: Airway is patent Respiratory effort is even, unlabored, Respiratory pattern is regular, symmetrical. GI: Abdomen is flat, non-distended, Bowel sounds present X 4 quads. Abd is soft and non tender X 4 quads. Reports upper abdominal pain, diarrhea, nausea, vomiting. : No signs and/or symptoms were reported regarding the genitourinary system. EENT: No signs and/or symptoms were reported regarding the EENT system. Derm: Skin is pink, warm \\T\\ dry. Musculoskeletal: No signs and/or symptoms reported regarding the musculoskeletal system. 15:30 Reassessment: Patient appears in no apparent distress at this time. Patient and/or sg family updated on plan of care and expected duration. Pain level reassessed. Patient is alert, oriented x 3, equal unlabored respirations, skin warm/dry/pink. Patient states symptoms have not improved. 17:00 Reassessment: Patient appears in no apparent distress at this time. pt requesting to sg speak with the ERP, pt states " Im just laying here in pain, he already talked to me and told me that my ETOH level is too high for more medication, am i just supposed to lay here hurting. Otf williamson had surgery for this, i know what this and how much it hurts." pt offered nonpharm pain control measures, no relief, Itzel RUSSELL notified pt request to speak with him. 17:42 Reassessment: Patient appears in no apparent distress at this time. pt offered PO sg Potassium to drink as ordered, pt refuses at this time, will attempt again later per pt request. 17:49 Reassessment: Patient appears in no apparent distress at this time. Patient and/or sg family updated on plan of care and expected duration. Pain level reassessed. Patient is alert, oriented x 3, equal unlabored respirations, skin warm/dry/pink. Itzel RUSSELL at bedside updating on POC and results, pt requesting more pain medication at this time, updated on results of the ETOH. 18:10 Reassessment: Itzel RUSSELL at bedside evaluating pt at this time, ERP educating pt on ETOH sg levels and drinking cessation, pt requesting medication to help him relax, V/O received for 10 mg of Haldol IM, medication to given as ordered. 18:30 Reassessment: Patient appears in no apparent distress at this time. Patient and/or sg family updated on plan of care and expected duration. Pain level reassessed. Patient is alert, oriented x 3, equal unlabored respirations, skin warm/dry/pink. pt reports feeling anxious and needing to leave, attempt to remove IV access, pt educated that an EKG has been ordered prior to the administration of Haldol, pt stated understandgin. 19:00 Reassessment: Patient appears in no apparent distress at this time. Patient and/or jb4 family updated on plan of care and expected duration. Pain level reassessed. Patient is alert, oriented x 3, equal unlabored respirations, skin warm/dry/pink. 20:00 Reassessment: Patient appears in no apparent distress at this time. Patient and/or jb4 family updated on plan of care and expected duration. Pain level reassessed. Patient is alert, oriented x 3, equal unlabored respirations, skin warm/dry/pink. 21:00 Reassessment: Patient appears in no apparent distress at this time. Patient and/or jb4 family updated on plan of care and expected duration. Pain level reassessed. Patient is alert, oriented x 3, equal unlabored respirations, skin warm/dry/pink. 22:00 Reassessment: Patient appears in no apparent distress at this time. Patient and/or jb4 family updated on plan of care and expected duration. Pain level reassessed. Patient is alert, oriented x 3, equal unlabored respirations, skin warm/dry/pink. Pt ride is here to pick him up. Vital Signs: 12:39 BP 146 / 89; Pulse 120; Resp 17; Temp 99.0(TE); Pulse Ox 99% on R/A; Weight 58.97 kg; ss Height 5 ft. 6 in. (167.64 cm); Pain 9/10; 15:50 BP 148 / 88; Pulse 115; Resp 17; Pulse Ox 98% on R/A; sg 18:50 BP 142 / 78; Pulse 100; Resp 17; Pulse Ox 99% on R/A; Pain 7/10; sg 19:16 BP 156 / 98; Pulse 95; Resp 16; Pulse Ox 97% on R/A; jb4 20:15 BP 146 / 82; Pulse 86; Resp 16; Pulse Ox 99% on R/A; jb4 21:15 BP 156 / 92; Pulse 84; Resp 18; Pulse Ox 98% on R/A; jb4 12:39 Body Mass Index 20.98 (58.97 kg, 167.64 cm) ED Course: 12:36 Patient arrived in ED. ss 12:38 Triage completed. ss 12:39 Arm band placed on right wrist. ss 14:10 Alexandru Mckeon PA is PHCP. cp 14:10 Humberto Martin MD is Attending Physician. cp 14:18 Ankit Quintero, RN is Primary Nurse. sg 15:04 Initial lab(s) drawn, by me, sent to lab. Inserted saline lock: 20 gauge in right dh3 forearm, using aseptic technique. Blood collected. 16:[address] via wheelchair. 2 16:57 CT completed. Patient tolerated procedure well. Patient moved back from CT. nj 17:19 CT Abd/Pelvis - W/Contrast: no oral contrast In Process Unspecified. EDMS 18:59 EKG done, by ED staff, reviewed by Alexandru RUSSELL. 3 19:00 Patient has correct armband on for positive identification. Placed in gown. Bed in low jb4 position. Call light in reach. Side rails up X2. Pulse ox on. NIBP on. 20:23 Primary Nurse role handed off by Ankit Quintero RN jb4 20:23 Jose A Garcia, RN is Primary Nurse. jb4 21:50 PHCP role handed off by Alexandru Mckeon, YVONNE jr8 21:50 Rachid Rojas PA is PHCP. jr8 22:02 No provider procedures requiring assistance completed. IV discontinued, intact, jb4 bleeding controlled. Administered Medications: 15:10 Drug: NS 0.9% 1000 ml Route: IV; Rate: 1 bolus; Site: right forearm; sg 21:00 Follow up: Response: No adverse reaction; IV Status: Completed infusion jb4 15:10 Drug: Zofran 4 mg Route: IVP; Site: right forearm; sg 16:00 Follow up: Response: No adverse reaction sg 15:20 Drug: ProTONIX 40 mg Route: IVP; Site: right forearm; sg 15:25 Drug: morphine 4 mg Route: IVP; Site: right forearm; sg 17:00 Drug: Banana Bag - (NS 0.9% 1000 ml, foLIC Acid 1 mg, Thiamine 100 mg, Multivitamin 1 sg amp) Route: IV; Rate: 200 calculated rate; Site: left forearm; 21:00 Follow up: Response: No adverse reaction; IV Status: Completed infusion jb4 18:59 Drug: HALdol (as decanoate) 10 mg Route: IM; Site: right gluteus; 22:05 Follow up: Response: No adverse reaction jb4 20:09 Drug: Potassium Effervescent Tablet 50 mEq Route: PO; jb4 20:30 Follow up: Response: No adverse reaction jb4 20:09 Drug: GI Cocktail without - (Maalox Suspension 30 ml, Lidocaine Liquid 2 % 15 jb4 ml) Route: PO; 22:04 Follow up: Response: No adverse reaction; Pain is decreased jb4 Outcome: 21:52 Discharge ordered by . veronica 22:02 Discharged to home ambulatory, with friend. jb4 22:02 Condition: stable 22:02 Discharge instructions given to patient, friend, Instructed on discharge instructions, follow up and referral plans. Demonstrated understanding of instructions, follow-up care. 22:07 Patient left the ED. jb4 Signatures: Dispatcher [employer] EDMS Ankit Quintero RN Lea Meadows RN Jyotsna Mancera RN Rachid Fernandez PA PA jr8 Alexandru Mckeon PA PA cp Bryson, James RN RN jb4 Perry Quinn [facility] Juliana Carlton [facility]
--- NOTE | 2018-04-29 21:52 | EDPHYS ---
Physician Documentation [facility] Name: Ankit Rosales Age: 37 yrs Sex: Male : 1980 Arrival Date: 04/29/2018 Time: 12:36 Bed 19 Private MD: ED Physician Humberto Martin HPI: 04/29 14:55 This 37 yrs old Male presents to ER via EMS with complaints of Abdominal cp Pain, Nausea/Vomiting/Diarrhea. 14:55 The patient presents with abdominal pain in the right upper quadrant. Onset: The cp symptoms/episode began/occurred yesterday. Associated signs and symptoms: Pertinent positives: nausea, vomiting, and diarrhea, Pertinent negatives: blood in stools, chest pain, constipation, fever, testicular pain, vomiting blood. The patient has experienced similar episodes in the past, multiple times, today's symptoms are similar, to when the patient was apparently diagnosed with pancreatitis. Historical: - Allergies: 12:39 NKDA; ss - PMHx: 12:39 GALLSTONES; Cirrhosis; left leg DVT; Pancreatitis; ss 12:39 etoh abuse; ss - PSHx: 12:39 TUBE COILS; ss - Immunization history:: Adult Immunizations up to date. - Social history:: Smoking status: Patient uses tobacco products, smokes one pack cigarettes per day. Patient uses alcohol, on a daily basis. - Ebola Screening: : Patient denies exposure to infectious person Patient denies travel to an Ebola-affected area in the 21 days before illness onset. ROS: 15:00 Constitutional: Negative for body aches, chills, fever, poor PO intake. cp 15:00 Eyes: Negative for injury, pain, redness, and discharge. cp 15:00 ENT: Negative for drainage from ear(s), ear pain, sore throat, difficulty swallowing, difficulty handling secretions. 15:00 Cardiovascular: Negative for chest pain, edema, palpitations. 15:00 Respiratory: Negative for cough, shortness of breath, wheezing. 15:00 Abdomen/GI: Positive for abdominal pain, nausea, vomiting, and diarrhea, Negative for hematemesis, black/tarry stool, rectal bleeding. 15:00 Skin: Negative for cellulitis, rash. 15:00 Neuro: Negative for altered mental status, headache, weakness. 15:00 All other systems are negative. Exam: 15:10 Constitutional: The patient appears in no acute distress, alert, awake, cp non-diaphoretic, non-toxic, well developed, well nourished. 15:10 Head/Face: Normocephalic, atraumatic. cp 15:10 Eyes: Periorbital structures: appear normal, Conjunctiva: normal, Lids and lashes: appear normal, bilaterally. 15:10 ENT: External ear(s): are unremarkable, Nose: is normal. 15:10 Chest/axilla: Inspection: normal, Palpation: is normal, no crepitus, no tenderness. 15:10 Cardiovascular: Rate: tachycardic, Rhythm: regular, Edema: is not appreciated, JVD: is not appreciated. 15:10 Respiratory: the patient does not display signs of respiratory distress, Respirations: normal, no use of accessory muscles, no retractions, no splinting, no tachypnea, labored breathing, is not present, Breath sounds: are clear throughout, no decreased breath sounds, no stridor, no wheezing. 15:10 Abdomen/GI: Inspection: abdomen appears normal, Bowel sounds: active, all quadrants, Palpation: soft, in all quadrants, moderate abdominal tenderness, in the epigastric area and right upper quadrant, involuntary guarding, is not appreciated. 15:10 Skin: cellulitis, is not appreciated, no rash present. 18:57 ECG was reviewed by the Attending Physician. cp Vital Signs: 12:39 BP 146 / 89; Pulse 120; Resp 17; Temp 99.0(TE); Pulse Ox 99% on R/A; Weight 58.97 kg; ss Height 5 ft. 6 in. (167.64 cm); Pain 9/10; 15:50 BP 148 / 88; Pulse 115; Resp 17; Pulse Ox 98% on R/A; sg 18:50 BP 142 / 78; Pulse 100; Resp 17; Pulse Ox 99% on R/A; Pain 7/10; sg 19:16 BP 156 / 98; Pulse 95; Resp 16; Pulse Ox 97% on R/A; jb4 20:15 BP 146 / 82; Pulse 86; Resp 16; Pulse Ox 99% on R/A; jb4 21:15 BP 156 / 92; Pulse 84; Resp 18; Pulse Ox 98% on R/A; jb4 12:39 Body Mass Index 20.98 (58.97 kg, 167.64 cm) ss MDM: 04/28 15:00 Differential diagnosis: appendicitis, bowel obstruction, cholecystitis, Cholelithiasis, cp diverticulitis, gastritis, gastroesophageal reflux disease, GI Bleed, non-specific abd pain, pancreatitis, Peptic Ulcer Disease, Perf. Duodenal Ulcer, Perf. Gastric Ulcer. 04/29 14:10 Patient medically screened. cp 17:39 Data reviewed: vital signs, nurses notes, lab test result(s), radiologic studies, CT cp scan. 21:50 Counseling: I had a detailed discussion with the patient and/or guardian regarding: the jr8 historical points, exam findings, and any diagnostic results supporting the discharge/admit diagnosis, lab results, radiology results, the need for outpatient follow up, a family practitioner, a community health promoter. ED course: Patient feeling better. Has a ride home. Will d/c to friend to bring home. 04/29 14:52 Order name: Basic Metabolic Panel; Complete Time: 16:15 cp 04/29 16:15 Interpretation: Normal except: K 3.2; BUN 4; CRE 0.47. cp 04/29 14:52 Order name: CBC with Diff; Complete Time: 16:15 cp 04/29 14:52 Order name: Creatinine for Radiology; Complete Time: 16:15 cp 04/29 17:31 Interpretation: Normal except: CRE 0.52. cp 04/29 14:52 Order name: Hepatic Function; Complete Time: 16:15 cp 04/29 17:32 Interpretation: Normal except: AST 44; GLOB 3.6. cp 04/29 14:52 Order name: Lipase; Complete Time: 16:15 cp 04/29 14:52 Order name: ETOH Level; Complete Time: 16:15 cp 04/29 14:52 Order name: Magnesium; Complete Time: 16:15 cp 04/29 14:52 Order name: UDS; Complete Time: 21:13 cp 04/29 16:18 Order name: CT Abd/Pelvis - W/Contrast: no oral contrast; Complete Time: 17:30 cp 04/29 20:01 Order name: Urine Dipstick--Ancillary (enter results); Complete Time: 21:13 mt 04/29 14:52 Order name: IV Saline Lock; Complete Time: 15:07 cp 04/29 14:52 Order name: Labs collected and sent; Complete Time: 15:07 cp 04/29 14:54 Order name: Urine Dipstick-Ancillary (obtain specimen); Complete Time: 20:09 cp 04/29 17:59 Order name: EKG; Complete Time: 17:59 cp 04/29 17:59 Order name: EKG - Nurse/Tech; Complete Time: 18:59 cp EC:57 Rate is 76 beats/min. Rhythm is regular. VA interval is normal. QRS interval is normal. cp QT interval is normal. T waves are Inverted in lead V2. Interpreted by me. Reviewed by me. Administered Medications: 15:10 Drug: NS 0.9% 1000 ml Route: IV; Rate: 1 bolus; Site: right forearm; sg 21:00 Follow up: Response: No adverse reaction; IV Status: Completed infusion jb4 15:10 Drug: Zofran 4 mg Route: IVP; Site: right forearm; sg 16:00 Follow up: Response: No adverse reaction sg 15:20 Drug: ProTONIX 40 mg Route: IVP; Site: right forearm; sg 15:25 Drug: morphine 4 mg Route: IVP; Site: right forearm; sg 17:00 Drug: Banana Bag - (NS 0.9% 1000 ml, foLIC Acid 1 mg, Thiamine 100 mg, Multivitamin 1 sg amp) Route: IV; Rate: 200 calculated rate; Site: left forearm; 21:00 Follow up: Response: No adverse reaction; IV Status: Completed infusion jb4 18:59 Drug: HALdol (as decanoate) 10 mg Route: IM; Site: right gluteus; aj 22:05 Follow up: Response: No adverse reaction jb4 20:09 Drug: Potassium Effervescent Tablet 50 mEq Route: PO; jb4 20:30 Follow up: Response: No adverse reaction jb4 20:09 Drug: GI Cocktail without - (Maalox Suspension 30 ml, Lidocaine Liquid 2 % 15 jb4 ml) Route: PO; 22:04 Follow up: Response: No adverse reaction; Pain is decreased jb4 Disposition: 04/29/18 21:52 Discharged to Home. Impression: Other chronic pancreatitis, Alcohol abuse. - Condition is Stable. - Discharge Instructions: Alcohol Intoxication, Chronic Pancreatitis. - Medication Reconciliation Form, Thank You Letter, Antibiotic Education, Prescription Opioid Use, Work release form form. - Follow up: Private Physician; When: 2 - 3 days; Reason: Recheck today's complaints, Continuance of care, Re-evaluation by your physician. - Problem is new. - Symptoms have improved. Signatures: Dispatcher [employer] EDAnkit Chua, RN Lea Meadows RN RN aj Smirch, Shelby, RN RN ss Roszak, Josh, PA PA jrAlexandru Leblanc PA PA cp Bryson, James RN RN jb4 Corrections: (The following items were deleted from the chart) 21:52 21:50 Counseling: I had a detailed discussion with the patient and/or guardian veronica regarding: the historical points, exam findings, and any diagnostic results supporting the discharge/admit diagnosis, lab results, the need for outpatient follow up, a family practitioner, a community health promoter, veronica 22:07 21:52 04/29/2018 21:52 Discharged to Home. Impression: Other chronic pancreatitis; jb4 Alcohol abuse. Condition is Stable. Forms are Medication Reconciliation Form, Thank You Letter, Antibiotic Education, Prescription Opioid Use. Follow up: Private Physician; When: 2 - 3 days; Reason: Recheck today's complaints, Continuance of care, Re-evaluation by your physician. Problem is new. Symptoms have improved. jrBobo
[2018-04-29 22:30] VITALS: TEMP 99
[2018-04-29 22:40] VITALS: BP 156/92; O2SAT 98
--- NOTE | 2018-04-30 05:52 | EKG ---
Test Date: 2018-04-29 Test Time: 18:53:19 [employer] Grade Teacher: JASMYN MEASUREMENT RESULTS: Intervals: Rate: 76 HI: 180 QRSD: 84 QT: 398 QTc: 447 [place]: P: 70 HI: 180 QRS: 71 T: 62 INTERPRETIVE STATEMENTS: Normal sinus rhythm Normal ECG Compared to ECG 12/30/2017 10:45:58 No significant changes Electronically Signed On 04-30-18 05:51:20 MANAGER STAFFING by Tavares Agarwal
== END 2018-04-29 22:07 | disposition home or self-care (01) ==
LOC: ER 12:36
DX: F10.10 Alcohol abuse, uncomplicated (principal); F17.210 Nicotine dependence, cigarettes, uncomplicated
CPT/HCPCS: 36415; 74177; 80048; 80076; 80307; 80320; 81003; 83690; 83735; 85025; 93005; C9113; J1630; J2405; J3411; J7030; Q9967

== ENCOUNTER 2018-06-04 12:05 | Emergency (ER) | payer SELFPAY ==
--- OUTSIDE RECORDS SUMMARY | 2018-06-04 12:07 | XMS REPORT | Clinical Summary ---
:1980 Author Organization [facility] Address [address] [place] [address] Care Team Providers Name Role Phone Unavailable Primary Care Provider Unavailable Allergies No Known Allergies Medications Medication Sig Dispensed Refills Start Date End Date Status apixaban (ELIQUIS) Take 2.5 mg by 0 09/19/2017 Discontinued 5 mg Tab mouth 2 (two) tabletIndications: times daily. deep venous thrombosis folic acid Take 1 tablet 30 tablet 0 03/15/2017 09/14/2017 Discontinued (FOLVITE) 1 MG (1 mg total) tablet by mouth daily. thiamine 100 MG Take 1 tablet 30 tablet 0 03/15/2017 03/15/2018 tablet (100 mg total) by mouth daily. HYDROcodone-acetam Take 1 tablet 0 09/09/2017 Discontinued inophen (NORCO by mouth every 10-325) 10-325 mg 6 (six) hours per as needed for tabletIndications: Pain. Pain HYDROcodone-acetam Take 1 tablet 30 tablet 0 09/09/2017 09/19/2017 Discontinued inophen (NORCO by mouth every 10-325) 10-325 mg 6 (six) hours per as needed for tabletIndications: Pain. Max Pain Daily Amount: 4 tablets apixaban (ELIQUIS) Take 2.5 mg by 0 09/19/2017 Discontinued 2.5 mg Tab tablet mouth daily. HYDROcodone-acetam Take 1 tablet 20 tablet 0 09/19/2017 09/29/2017 inophen (NORCO by mouth every 10-325) 10-325 mg 6 (six) hours per tablet as needed for up to 10 days. [...] Date Type Specialty Care Team Description 09/14/2017 Hospital General Internal Zaida Martinez MD Alcohol abuse (Primary Dx); - Encounter Medicine Yahaira, Cystic mass of pancreas; 09/19/2017 Dario Pancreatic pseudocyst/cyst; MD Tavares Hemorrhagic pancreatitis Vanda Norton MD Shiekh Sroujieh, Julissa Moseley MD 09/08/2017 Anesthesia Event Gastroenterology Shikha Motley MD 09/08/2017 Surgery Gastroenterology Bessy Hernandez UPPER ENDOSCOPY MD Fredi 09/01/2017 Orders Only General Internal Medicine 08/31/2017 [facility] Cardiology Talisha Abad Alcohol abuse; - Encounter MD Adriana Cystic mass of pancreas; 09/09/2017 Shamsee, History of DVT (deep vein thrombosis); Caden-Dannie Alcohol-induced acute pancreatitis without infection or necrosis; MD Nayely Smoker; Larry Rodriguez Portal vein thrombosis MD Connor Bishop Sahar, MD Neela, Nazia Huerta MD after 06/03/2017 Family History Medical History Relation Name Comments [...] CDT procedure are in the results section. after 06/03/2017 Results Calcium, Ionized (09/19/2017 6:02 AM CDT)Only the most recent of3 resultswithin the time period is included. Calcium, Ion 1.11 (L) 1.12 - 1.27 mmol/L [facility] pH, Blood 7.40 [facility] Specimen Blood - Line, Venous Performing Organization Address [facility]/Zipcode Phone Number [address] [address] CENTER Phosphorus (09/19/2017 6:02 AM CDT)Only the most recent of10 resultswithin the time period is included. Phosphorus 3.0 2.3 - 4.7 mg/dL [facility] Specimen Blood - Line, Venous Performing Organization Address [facility] Phone Number [address] [address] CENTER Magnesium (09/19/2017 6:02 AM CDT)Only the most recent of10 resultswithin the time period is included. Magnesium 2.0 1.6 - 2.6 mg/dL [facility] Specimen Blood - Line, Venous Performing Organization Address [facility] Phone Number [address] [address] [place] Basic Metabolic Panel (09/19/2017 6:02 AM CDT)Only the most recent of15 resultswithin the time period is included. Sodium 138 136 - 145 meq/L [facility] Potassium 3.8 3.5 - 5.1 meq/L [facility] Chloride 109 (H) 98 - 107 meq/L [facility] CO2 22 22 - 29 meq/L [facility] BUN 10 7 - 21 mg/dL [facility] Creatinine 0.53 (L) 0.57 - 1.25 mg/dL [facility] Glucose 88 70 - 105 mg/dL [facility] Calcium 8.5 8.4 - 10.2 mg/dL [facility] EGFR 174Comment: ESTIMATED GFR IS mL/min/1.73 sq m [facility] NOT ACCURATE CREATININE [facility] CLEARANCE IN PREDICTING GLOMERULAR FILTRATION RATE. ESTIMATED GFR IS NOT APPLICABLE FOR DIALYSIS PATIENTS. Specimen Blood - Line, Venous Performing Organization Address City/State/Zipcode Phone Number [facility] [address] [place] [address] CENTER CBC with platelet count + automated diff (09/17/2017 3:54 AM CDT)Only the most recent of11 resultswithin the time period is included. WBC 10.1 3.5 - 10.5 K/L [facility] RBC 4.16 (L) 4.63 - 6.08 M/L [facility] Hemoglobin 12.6 (L) 13.7 - 17.5 GM/DL [facility] Hematocrit 37.3 (L) 40.1 - 51.0 % [facility] MCV 89.7 79.0 - 92.2 fL [facility] MCH 30.3 25.7 - 32.2 pg [facility] MCHC 33.8 32.3 - 36.5 GM/DL [facility] RDW 14.0 11.6 - 14.4 % [facility] Platelets 541 (H) 150 - 450 K/CU MM [facility] MPV 9.1 (L) 9.4 - 12.4 fL [facility] nRBC 0 0 - 0 /100 WBC [facility] % Neutros 66 % [facility] % Lymphs 20 % [facility] % Monos 10 % [facility] % Eos 3 % [facility] % Baso 1 % [facility] # Neutros 6.65 (H) 1.78 - 5.38 K/L [facility] # Lymphs 2.05 1.32 - 3.57 K/L [facility] # Monos 1.03 (H) 0.30 - 0.82 K/L [facility] # Eos 0.26 0.04 - 0.54 K/L [facility] # Baso 0.10 (H) 0.01 - 0.08 K/L [facility] Immature Granulocytes-Relative 0 0 - 1 % [facility] Specimen Blood - Line, Venous Performing Organization Address City/State/Zipcode Phone Number [facility] [address] [place] [address] CENTER US abdominal with doppler (09/17/2017 3:00 AM CDT) Narrative Performed At FINAL REPORT [facility] Comparison exam: Right upper quadrant ultrasound 09/01/2017. [...] MD Report Verified Date/Time:09/17/2017 04:01:12 Reading Location: [facility] C013[facility] Ortho Consult Reading Room Procedure Note [...] Report Verified Date/Time: 09/17/2017 04:01:12 Reading Location: [facility] C013X Ortho Consult Reading Room Performing Organization [...] my direction. Total intra-service time of sedation [id number]. The patient's vital signs were monitored throughout the procedure and recorded in the patient's medical record by the nurse. Anesthesia:Two percent Lidocaine without epinephrine. Approach:Right common femoral artery. Estimated blood loss:< 5 cc. Specimen: None. lumber stacker operator: Michael Ortega MD. Metal Drill Press Operator: None.. Fluoroscopy Time: 31.7 min. Reference [...] over 0.035 Bentson wire for a 5 Kazakh by 10 cm vascular sheath. A 5 Kazakh Sutton B catheter was used to select the celiac trunk and SMA for multiple DSA runs. The Sutton catheter was then remanipulated into the celiac trunk. Next, using a 2.4 Kazakh microcatheter and 0.016 inch microwire, the gastroduodenal artery was cannulated. Subsequently, the catheter was manipulated into the feeding branch supplying the abnormal area of hyperemia/vessel irregularity. From this location, embolization was performed using Interlock microcoils. The microcatheter was retracted into the GDA proximally and postdilatation DSA was performed. Next, the Sutton base catheter was manipulated into the SMA. Using a 2. Kazakh directional microcatheter and 0.014 inch microwire, the [...] MD Report Verified Date/Time:09/20/2017 16:25:06 Reading Location: [place] [address] Angio Body Reading Room Procedure Note Interface, [...] blood loss: < 5 cc. Specimen: None. lumber stacker operator: Michael Ortega MD. Metal Drill Press Operator: None.. Fluoroscopy Time: 31.7 min. Reference [...] over 0.035 Bentson wire for a 5 Kazakh by 10 cm vascular sheath. A 5 Kazakh Sutton B catheter was used to select the celiac trunk and SMA for multiple DSA runs. The Sutton catheter was then remanipulated into the celiac trunk. Next, using a 2.4 Kazakh microcatheter and 0.016 inch microwire, the gastroduodenal artery was cannulated. Subsequently, the catheter was manipulated into the feeding branch supplying the abnormal area of hyperemia/vessel irregularity. From this location, embolization was performed using Interlock microcoils. The microcatheter was retracted into the GDA proximally and postdilatation DSA was performed. Next, the Sutton base catheter was manipulated into the SMA. Using a 2. Kazakh directional microcatheter and 0.014 inch microwire, the [...] Report Verified Date/Time: 09/20/2017 16:25:06 Reading Location: [place] [address] Angio Body Reading Room Performing Organization Address City/[facility] Phone Number [facility] C-Reactive Protein (09/16/2017 12:32 PM CDT)Only the most recent of2 resultswithin the time period is included. CRP 0.97 (H) 0.00 - 0.50 mg/dL [facility] Specimen Blood - Central Venous Line Performing Organization Address City/[facility]/Zipcode Phone Number [address] [address] CENTER PT/aPTT (09/16/2017 10:54 AM CDT) Protime 16.2 (H) 11.7 - 14.7 seconds [facility] INR 1.3 <=5.9 [facility] PTT 30.2 22.5 - 36.0 seconds [facility] Specimen Blood - Central Venous Line Narrative Performed At [facility] RECOMMENDED COUMADIN/WARFARIN INR THERAPY RANGES STANDARD DOSE: 2.0 - 3.0 Includes: PROPHYLAXIS for venous thrombosis, systemic embolization; TREATMENT for venous thrombosis and/or pulmonary embolus. HIGH RISK: Target INR is 2.5-3.5 for patients with mechanical heart valves. Performing Organization Address City/[facility] Phone Number [address] [address] [place] Triglycerides (09/16/2017 4:20 AM CDT) Triglycerides 78 mg/dL [facility] Specimen Blood - Line, Venous Narrative Performed At [facility] TRIGLYCERIDE REFERENCE RANGE Low Risk<150 Borderline Risk 150-199 High [id number] Very High Risk >=500 Performing Organization Address [facility] Phone Number [address] [address] [phone] [place] Lipase (09/16/2017 4:20 AM CDT)Only the most recent of4 resultswithin the time period is included. Lipase 114 (H) 8 - 78 U/L [facility] Specimen Blood - Line, Venous Performing Organization Address [facility] Phone Number [address] [address] [phone] [place] Hepatic function panel (09/16/2017 4:20 AM CDT)Only the most recent of4 resultswithin the time period is included. Protein, Total 6.5 6.0 - 8.3 gm/dL [facility] Albumin 3.7 3.5 - 5.0 g/dL [facility] Total Bilirubin 0.3 0.2 - 1.2 mg/dL [facility] Bilirubin, Direct 0.1 0.1 - 0.5 mg/dL [facility] Alkaline Phosphatase 79 40 - 150 U/L [facility] AST 14 5 - 34 U/L [facility] ALT 9 6 - 55 U/L [facility] Specimen Blood - Line, Venous Performing Organization Address [facility] Phone Number [address] [address] CENTER XR chest 1 view portable / bedside (09/15/2017 7:43 PM CDT) Narrative Performed At FINAL REPORT [facility] History: PICC line placement. Comparison: None. Findings: 2 frontal views of the chest are submitted. A left PICC line tip overlies the SVC. The cardiomediastinal contours are unremarkable. There is no focal consolidation, pneumothorax, large pleural effusion or evidence of overt pulmonary edema. There is no acute bony abnormality. Signed: George Keys MD Report Verified Date/Time:09/15/2017 19:53:01 Reading Location: [address] Reading Room Procedure Note Interface, External [...] Report Verified Date/Time: 09/15/2017 19:53:01 Reading Location: [address] Reading Room Performing Organization Address City/State/Zipcode Phone Number [facility] PERIPHERAL VASCULAR REPORT - SCAN (09/15/2017 5:20 PM CDT) Narrative Performed At Venous doppler legs bilateral (09/15/2017 2:49 PM CDT) Ejection Fraction [facility] Impressions Performed At Right Impression [facility] 1. There is [...] PV LAB - Lower Extremities DVT Study [facility] Demographics Patient NameANKIT ROSALES Date of Study09/15/2017 37 Visit [id number] mago Male of Birth1980 Number Referring Julissa AlfonsoNancy, Room [id number] Physician Rn Cardiovascular David Chan. Interpreting Prema Gabriel RVT, Greg [...] of Study 09/15/2017 Age 37 Visit Number [id number] Gender Male Date of 1980 Number Referring Julissa Blane, Room Number 2161 Physician Rn Cardiovascular David Chan. Interpreting Prema Gabriel, T, ARS Physician , RPVI Procedure Type of Study: [...] City/State/Zipcode Phone Number [facility] Pancreatic elastase, fecal (09/15/2017 10:36 AM CDT) [...] Lab [facility] [address] [address] Enrique Holliday MD, PhD, GIDEON Performing Organization Address City/[facility]/Zipcode Phone Number [facility] [place] [address] [address] [place] [address] Peripheral Blood Smear - Path Review (09/14/2017 4:37 AM CDT) Pathologist Review Thrombocytosis. No [facility] circulating blasts or MEDICAL CENTER increased schistocytes. Clinical follow up recommended. Pathologist: Enoch Saba [facility] Miladis(electronic signature) [facility] Specimen Blood Performing Organization Address [facility]/Zipcode Phone Number [address] [address] CENTER Vitamin B12 and Folate (09/14/2017 4:37 AM CDT) Vitamin B12 527 213 - 816 pg/mL [facility] Folate 12.3 >=7.0 ng/mL [facility] Specimen Blood Performing Organization Address City/[facility] Phone Number [address] [address] [place] RHYTHM STRIP - SCAN (09/10/2017 10:40 AM CDT) Narrative Performed At aPTT (09/09/2017 9:37 AM CDT)Only the most recent of9 resultswithin the time period is included. PTT 44.5 (H) 22.5 - 36.0 seconds [facility] Specimen Blood Performing Organization Address [facility]/Zipcode Phone Number [address] [address] [place] REPORT OF PROCEDURE - ENDOSCOPY URL (09/08/2017 5:47 PM CDT) Narrative Performed At FINE NEEDLE ASPIRATE (FNA) REQUEST (09/08/2017 5:43 PM CDT) Cytology See Separate Report [facility] Specimen Fine Needle Aspirate - Pancreas Performing Organization Address City/State/Zipcode Phone Number [facility] [address] [place] [address] CENTER Fine Needle Aspirate by Clinician (09/08/2017 5:43 PM CDT) Case Report Medical Cytology Report Case: [id number] [facility] Authorizing Provider:Bessy Hernandez MDCollected: 09/08/2017 1743 [facility] Ordering Location: [address] Received: 09/08/2017 181 Service Pathologist: Mir Anthony MD Specimen:Pancreas DIAGNOSIS PANCREAS HEAD CYSTIC LESION FNA BY CLINICIAN (CYTOSPINS AND CELL BLOCK OF ASPIRATE): [facility] - NO MALIGNANT CELLS IDENTIFIED [facility] - The mucin stain shows focal weak staining Signing Pathologist Direct Phone Line: [phone] COMMENT The cell block shows [facility] non-inflammed pancreatic [facility] acinar tissue. CPT Code(s) 17436, 83467, 39442 [facility] CLINICAL DATA (4.9 X 4.8 cm) Cystic [facility] lesion in the pancreatic [facility] head SPECIMEN SOURCE PANCREAS HEAD CYSTIC [facility] LESION FNA [facility] GROSS DESCRIPTION 25 mls in cytorich red; 4 cytospins, 1 mucin stain, cell block [facility] Collected: [id number] [facility] Received: [id number] Technical component was [facility] performed at [place], Department of [facility] Pathology, [address] [place] [address], Professional component was [facility] performed at [place], Department of [facility] Pathology, [address] [place] [address], Specimen Fine Needle Aspirate - Pancreas Narrative Performed At Performing Organization Address City/State/Zipcode Phone Number [facility] [address] [place] [address] [phone] abd/pelvis - pancreas evaluation (09/04/2017 12:20 AM CDT) Narrative Performed At FINAL REPORT [facility] CT, ABDOMEN - PELVIS, PANCREAS EVALUATION INDICATION: [...] MD Report Verified Date/Time:09/04/2017 00:22:52 Reading Location: [address] Reading Room Procedure Note Interface, External [...] Report Verified Date/Time: 09/04/2017 00:22:52 Reading Location: [address] Reading Room Performing Organization Address City/State/Zipcode Phone Number [facility] POC-Glucose meter (09/02/2017 7:29 AM CDT)Only the most recent of2 resultswithin the time period is included. POC-Glucose Meter 140 (H)Comment: TESTED AT 70 - 110 mg/dL [facility]SC [address] [facility] [address] Specimen Blood Performing Organization Address City/State/Zipcode Phone Number [facility] [address], [place] [phone] CENTER ECG 12 lead (09/01/2017 6:18 PM CDT) Narrative Performed At Ventricular Rate 77 BPM GE MUSE Atrial Rate 77 BPM P-R Interval 162 ms QRS Duration 98 ms Q-T Interval 404 ms QTC Calculation(Bazett) 457 ms P [place] -8 degrees R [place] 30 degrees T [place] -1 degrees Normal sinus rhythm RSR' or QR pattern in V1 suggests right ventricular conduction delay Cannot rule out Anterior infarct , age undetermined Abnormal ECG No previous ECGs available Confirmed by MD [place] ([id number]) on 09/02/2017 2:25:25 PM Procedure Note Interface, External Ris In - 09/02/2017 2:25 PM CDT Ventricular Rate 77 BPM Atrial Rate 77 BPM P-R Interval 162 ms QRS Duration 98 ms Q-T Interval 404 ms QTC Calculation(Bazett) 457 ms P [place] -8 degrees R [place] 30 degrees T [place] -1 degrees Normal sinus rhythm RSR' or QR pattern in V1 suggests right ventricular conduction delay Cannot rule out Anterior infarct , age undetermined Abnormal ECG No previous ECGs available Confirmed by MD [place] ([id number]) on 09/02/2017 2:25:25 PM Performing Organization Address [facility] Phone Number [facility] US abdomen limited (09/01/2017 5:23 AM CDT) Narrative Performed At FINAL REPORT [facility] INDICATION: 37-year-old male with abdominal pain and [...] MD Report Verified Date/Time:09/01/2017 09:53:12 Reading Location: [address] Ultrasound Reading Room Procedure Note Interface, [...] Report Verified Date/Time: 09/01/2017 09:53:12 Reading Location: [place] [id number] Ultrasound Reading Room Performing Organization Address City/State/Zipcode Phone Number [facility] TSH/Free T4 If Indicated (09/01/2017 3:12 AM CDT) TSH 0.36 0.35 - 4.94 uIU/mL [facility] Specimen Blood - Arm, Left Performing Organization Address City/State/Zipcode Phone Number [address] [address] [phone] CENTER Troponin I (09/01/2017 3:12 AM CDT) Troponin I <0.01 0.00 - 0.03 ng/mL [facility] Specimen Blood - Arm, Left Narrative Performed At [facility] Troponin I (TnI) levels [...] disease, and persistent tachyarrhythmia. Performing Organization Address City/State/Zipcode Phone Number [address] [phone] CENTER Sedimentation rate (09/01/2017 3:12 AM CDT) Sed Rate 3 0 - 15 mm/HR [facility] Specimen Blood - Arm, Left Performing Organization Address [facility] Phone Number [address] [address] CENTER Hemoglobin A1c (09/01/2017 3:12 AM CDT) Hemoglobin A1C 4.7 4.3 - 6.1 % [facility] Specimen Blood - Arm, Left Performing Organization Address City/[facility]/Zipcode Phone Number [address] [address] CENTER Creatine Kinase (CK), Total and MB (09/01/2017 3:12 AM CDT) Total CK 29 29 - 200 U/L [facility] CK-MB 0.4 0.0 - 6.6 ng/mL [facility] MB Relative Index 1.4 % [facility] Specimen Blood - Arm, Left Narrative Performed At CK-MB Reference Range: [facility] <6.7Normal 6.7-10.0Borderline >10.0 Abnormal Performing Organization Address [facility] Phone Number [facility] [address] [place] [address] CENTER Amylase (09/01/2017 3:12 AM CDT) Amylase 383 (H) 25 - 125 U/L [facility] Specimen Blood - Arm, Left Performing Organization Address [facility] Phone Number [address] [address] [phone] [place] Lipid panel (09/01/2017 3:12 AM CDT) Triglycerides 76 mg/dL [facility] Cholesterol 118 mg/dL [facility] HDL 37 mg/dL [facility] LDL Calculated 66 mg/dL [facility] Specimen Blood - Arm, Left Narrative Performed At [facility] Triglyceride Reference Range: Low Risk <150 [id number] High Risk 200-499 Very High Risk>=500 Cholesterol Reference Range: Low Risk <200 [id number] High Risk>240 HDL Cholesterol Reference Range: Low Risk >=60 High Risk <40 LDL Cholesterol Reference Range: Optimal<100 Near Brtpfzr327-299 [id number] Fbft416-192 Very High >=190 Performing Organization Address [facility] Phone Number [address] [address] CENTER Blood culture (09/01/2017 3:11 AM CDT)Only the most recent of2 resultswithin the time period is included. Result No growth in 5 days [facility] Specimen Blood - Arm, Right Performing Organization Address [facility] Phone Number [address] [address] [phone] CENTER after 06/03/2017 Advance Directives For more information, please contact:[place] [address] [address] [place], [place] [phone] Code Status Date Activated Date Inactivated Comments [...]
--- OUTSIDE RECORDS SUMMARY | 2018-06-04 12:10 | XMS REPORT ---
:1980 [facility] [address] [place] [address] Care Team Providers Name Role Phone VANI FLORES Unavailable Unavailable SEEMA SPANN Unavailable Unavailable LIZ, LILIA Unavailable Unavailable MELISSA, PATT CARL Unavailable Unavailable Problems This patient has no known problems. Allergies, Adverse Reactions, Alerts This patient has no known allergies or adverse reactions. Medications This patient has no known medications. Results Test Description Test Time Test Comments Text Results Atomic Results Result Comments MICHAEL WALLER, 2017-09-[address] at [facility] for FINAL REPORT PATIENT EXTENSIVE - 16:25:00 evidence of bleedCall with ID: [id number] ARTERIAL questions: [phone] or Mesenteric angiogram [facility] for and embolization exam:->Pancreaticoduodednal artery with intermittent [...] blood loss: < 5 cc. Specimen: None. crepe machine operator: Michael Ortega MD. Mine Analyst: None.. Fluoroscopy Time: 31.7 min.Reference Air Kerma [...] Ortegaort Verified Date/Time: 09/20/2017 16:25:06 Reading Location: [place] [address] Angio Body Reading Room IUM, IONIZED 2017-09-19 07:02:00 Test Item Value Reference Range Comments CALCIUM IONIZED (BEAKER) (test jcms=424) 1.11 mmol/L 1.12-1.27 PH, BLOOD (BEAKER) (test zoov=8791) 7.40 [id number] 06:35:00 Test Item Value Reference Range Comments PHOSPHORUS (BEAKER) (test hjus=914) 3.0 mg/dL 2.3-4.7 [id number] 06:35:00 Test Item Value Reference Range Comments MAGNESIUM (BEAKER) (test thpg=836) 2.0 mg/dL 1.6-2.6 BASIC METABOLIC [id number] 06:35:00 Test Item Value Reference Range Comments SODIUM (BEAKER) (test 138 meq/L 136-145 fhgx=606) POTASSIUM (BEAKER) (test 3.8 meq/L 3.5-5.1 eepg=331) CHLORIDE (BEAKER) (test 109 meq/L 98-107 xdrx=558) CO2 (BEAKER) (test 22 meq/L 22-29 glod=852) BLOOD UREA NITROGEN 10 mg/dL 7-21 (BEAKER) (test foau=851) CREATININE (BEAKER) (test 0.53 mg/dL 0.57-1.25 cidw=751) GLUCOSE RANDOM (BEAKER) 88 mg/dL 70-105 (test mddf=016) CALCIUM (BEAKER) (test 8.5 mg/dL 8.4-10.2 noqe=168) EGFR (BEAKER) (test 174 mL/min/1.73 sq m ESTIMATED GFR IS NOT ndzt=2545) ACCURATE CREATININE CLEARANCE IN PREDICTING GLOMERULAR FILTRATION RATE. ESTIMATED GFR IS NOT APPLICABLE FOR DIALYSIS PATIENTS. CALCIUM, [id number] 07:12:00 Test Item Value Reference Range Comments CALCIUM IONIZED (BEAKER) (test dids=277) 1.09 mmol/L 1.12-1.27 PH, BLOOD (BEAKER) (test ktsm=2371) 7.41 [id number] 06:38:00 Test Item Value Reference Range Comments PHOSPHORUS (BEAKER) (test efgj=650) 3.0 mg/dL 2.3-4.7 [id number] 06:38:00 Test Item Value Reference Range Comments MAGNESIUM (BEAKER) (test qsfu=984) 2.1 mg/dL 1.6-2.6 BASIC METABOLIC [id number] 06:38:00 Test Item Value Reference Range Comments SODIUM (BEAKER) (test 137 meq/L 136-145 kbux=376) POTASSIUM (BEAKER) (test 3.7 meq/L 3.5-5.1 ezbc=204) CHLORIDE (BEAKER) (test 108 meq/L 98-107 jzkv=390) CO2 (BEAKER) (test 22 meq/L 22-29 hehr=763) BLOOD UREA NITROGEN 10 mg/dL 7-21 (BEAKER) (test qrxx=914) CREATININE (BEAKER) (test 0.52 mg/dL 0.57-1.25 txet=286) GLUCOSE RANDOM (BEAKER) 99 mg/dL 70-105 (test fhaf=615) CALCIUM (BEAKER) (test 8.6 mg/dL 8.4-10.2 fvwu=460) EGFR (BEAKER) (test 178 mL/min/1.73 sq m ESTIMATED GFR IS NOT rnci=9406) ACCURATE CREATININE CLEARANCE IN PREDICTING GLOMERULAR FILTRATION RATE. ESTIMATED GFR IS NOT APPLICABLE FOR DIALYSIS PATIENTS. CALCIUM, [id number] 04:45:00 Test Item Value Reference Range Comments CALCIUM IONIZED (BEAKER) (test qvkr=998) 1.14 mmol/L 1.12-1.27 PH, BLOOD (BEAKER) (test evtk=1048) 7.39 [id number] 04:22:00 Test Item Value Reference Range Comments PHOSPHORUS (BEAKER) (test aevy=008) 2.8 mg/dL 2.3-4.7 [id number] 04:22:00 Test Item Value Reference Range Comments MAGNESIUM (BEAKER) (test ucce=635) 1.9 mg/dL 1.6-2.6 BASIC METABOLIC [id number] 04:22:00 Test Item Value Reference Range Comments SODIUM (BEAKER) (test 134 meq/L 136-145 dneb=747) POTASSIUM (BEAKER) (test 3.3 meq/L 3.5-5.1 xhtu=911) CHLORIDE (BEAKER) (test 103 meq/L 98-107 gewn=646) CO2 (BEAKER) (test 23 meq/L 22-29 vteq=505) BLOOD UREA NITROGEN 11 mg/dL 7-21 (BEAKER) (test niti=359) CREATININE (BEAKER) (test 0.55 mg/dL 0.57-1.25 wvic=859) GLUCOSE RANDOM (BEAKER) 112 mg/dL 70-105 (test xaki=197) CALCIUM (BEAKER) (test 8.7 mg/dL 8.4-10.2 nvui=238) EGFR (BEAKER) (test 167 mL/min/1.73 sq m ESTIMATED GFR IS NOT yngi=8416) ACCURATE CREATININE CLEARANCE IN PREDICTING GLOMERULAR FILTRATION RATE. ESTIMATED GFR IS NOT APPLICABLE FOR DIALYSIS PATIENTS. CBC W/PLT COUNT & AUTO [id number] 04:11:00 Test Item Value Reference Range Comments WHITE BLOOD CELL COUNT (BEAKER) (test zmzx=103) 10.1 K/ L 3.5-10.5 RED BLOOD CELL COUNT (BEAKER) (test esiv=843) 4.16 M/ L 4.63-6.08 HEMOGLOBIN (BEAKER) (test yzxg=967) 12.6 GM/DL 13.7-17.5 HEMATOCRIT (BEAKER) (test vszr=095) 37.3 % 40.1-51.0 MEAN CORPUSCULAR VOLUME (BEAKER) (test etty=947) 89.7 fL 79.0-92.2 MEAN CORPUSCULAR HEMOGLOBIN (BEAKER) (test 30.3 pg 25.7-32.2 vdko=646) MEAN CORPUSCULAR HEMOGLOBIN CONC (BEAKER) (test 33.8 GM/DL 32.3-36.5 zzxo=716) RED CELL DISTRIBUTION WIDTH (BEAKER) (test 14.0 % 11.6-14.4 sdek=799) PLATELET COUNT (BEAKER) (test bkld=883) 541 K/CU MM 150-450 MEAN PLATELET VOLUME (BEAKER) (test jwra=004) 9.1 fL 9.4-12.4 NUCLEATED RED BLOOD CELLS (BEAKER) (test 0 /100 WBC 0-0 cmpx=292) NEUTROPHILS RELATIVE PERCENT (BEAKER) (test 66 % faji=041) LYMPHOCYTES RELATIVE PERCENT (BEAKER) (test 20 % uuee=833) MONOCYTES RELATIVE PERCENT (BEAKER) (test 10 % nsgy=308) EOSINOPHILS RELATIVE PERCENT (BEAKER) (test 3 % oolk=037) BASOPHILS RELATIVE PERCENT (BEAKER) (test 1 % fcua=745) NEUTROPHILS ABSOLUTE COUNT (BEAKER) (test 6.65 K/ L 1.78-5.38 buct=526) LYMPHOCYTES ABSOLUTE COUNT (BEAKER) (test 2.05 K/ L 1.32-3.57 hfbv=358) MONOCYTES ABSOLUTE COUNT (BEAKER) (test 1.03 K/ L 0.30-0.82 abae=719) EOSINOPHILS ABSOLUTE COUNT (BEAKER) (test 0.26 K/ L 0.04-0.54 tcpi=723) BASOPHILS ABSOLUTE COUNT (BEAKER) (test 0.10 K/ L 0.01-0.08 ezzm=914) IMMATURE GRANULOCYTES-RELATIVE PERCENT (BEAKER) 0 % 0-1 (test thvy=1441) U/S, ABDOMINAL, WITH [id number] 04:01:00Reason for exam:->? hx of PV thrombosisFINAL [...] Gaspar Verified Date/Time: 09/17/2017 04:01:12 Reading Location: [facility] C0X Ortho Consult Reading Room 04 :01 AMC-REACTIVE [id number] 13:17:00 Test Item Value Reference Range Comments C-REACTIVE PROTEIN (BEAKER) (test bnlc=944) 0.97 mg/dL 0.00-0.50 [id number] 11:12:00 Test Item Value Reference Range Comments PROTIME (BEAKER) (test ugwa=198) 16.2 seconds 11.7-14.7 INR (BEAKER) (test sels=191) 1.3 <=5.9 PARTIAL THROMBOPLASTIN TIME (BEAKER) (test 30.2 seconds 22.5-36.0 hpsv=231) RECOMMENDED COUMADIN/WARFARIN INR THERAPY RANGESSTANDARD DOSE: 2.0 - 3.0 Includes: PROPHYLAXIS forvenous thrombosis, systemic embolization; TREATMENT for venous thrombosis and/or pulmonary embolus.HIGH RISK: Target INR is 2.5-3.5 for patients with mechanical heart valves.[id number] 05:28:00 Test Item Value Reference Range Comments TRIGLYCERIDES (BEAKER) (test otwo=173) 78 mg/dL TRIGLYCERIDE REFERENCE RANGELow Risk <150Borderline Risk 150-199High Risk 200-499Very High Risk>=[id number] 05:28:00 Test Item Value Reference Range Comments MAGNESIUM (BEAKER) (test xriz=638) 1.9 mg/dL 1.6-2.6 [id number] 05:28:00 Test Item Value Reference Range Comments PHOSPHORUS (BEAKER) (test ejjt=386) 3.5 mg/dL 2.3-4.7 BASIC METABOLIC [id number] 05:28:00 Test Item Value Reference Range Comments SODIUM (BEAKER) (test 134 meq/L 136-145 ncrv=837) POTASSIUM (BEAKER) (test 3.6 meq/L 3.5-5.1 gkjk=642) CHLORIDE (BEAKER) (test 105 meq/L 98-107 ticw=435) CO2 (BEAKER) (test 23 meq/L 22-29 qyaa=724) BLOOD UREA NITROGEN 13 mg/dL 7-21 (BEAKER) (test qosj=655) CREATININE (BEAKER) (test 0.56 mg/dL 0.57-1.25 yfid=715) GLUCOSE RANDOM (BEAKER) 83 mg/dL 70-105 (test xbuk=140) CALCIUM (BEAKER) (test 8.8 mg/dL 8.4-10.2 zvvh=066) EGFR (BEAKER) (test 163 mL/min/1.73 sq m ESTIMATED GFR IS NOT agde=8477) ACCURATE CREATININE CLEARANCE IN PREDICTING GLOMERULAR FILTRATION RATE. ESTIMATED GFR IS NOT APPLICABLE FOR DIALYSIS PATIENTS. HEPATIC FUNCTION [id number] 05:28:00 Test Item Value Reference Range Comments TOTAL PROTEIN (BEAKER) (test xdty=247) 6.5 gm/dL 6.0-8.3 ALBUMIN (BEAKER) (test lsis=9352) 3.7 g/dL 3.5-5.0 BILIRUBIN TOTAL (BEAKER) (test zqix=420) 0.3 mg/dL 0.2-1.2 BILIRUBIN DIRECT (BEAKER) (test ffmb=091) 0.1 mg/dL 0.1-0.5 ALKALINE PHOSPHATASE (BEAKER) (test ohyd=440) 79 U/L 40-150 AST (SGOT) (BEAKER) (test gnyr=061) 14 U/L 5-34 ALT (SGPT) (BEAKER) (test gnam=156) 9 U/L 6-55 [id number] 05:28:00 Test Item Value Reference Range Comments LIPASE (BEAKER) (test pspa=805) 114 U/L 8-78 CBC W/PLT COUNT & AUTO [id number] 05:03:00 Test Item Value Reference Range Comments WHITE BLOOD CELL COUNT (BEAKER) (test xakc=340) 7.2 K/ L 3.5-10.5 RED BLOOD CELL COUNT (BEAKER) (test inkv=130) 4.04 M/ L 4.63-6.08 HEMOGLOBIN (BEAKER) (test bqdy=635) 12.2 GM/DL 13.7-17.5 HEMATOCRIT (BEAKER) (test enom=561) 36.7 % 40.1-51.0 MEAN CORPUSCULAR VOLUME (BEAKER) (test ykno=789) 90.8 fL 79.0-92.2 MEAN CORPUSCULAR HEMOGLOBIN (BEAKER) (test 30.2 pg 25.7-32.2 iykd=835) MEAN CORPUSCULAR HEMOGLOBIN CONC (BEAKER) (test 33.2 GM/DL 32.3-36.5 vkya=777) RED CELL DISTRIBUTION WIDTH (BEAKER) (test 14.3 % 11.6-14.4 lyud=367) PLATELET COUNT (BEAKER) (test tvgg=181) 561 K/CU MM 150-450 MEAN PLATELET VOLUME (BEAKER) (test ldol=405) 9.2 fL 9.4-12.4 NUCLEATED RED BLOOD CELLS (BEAKER) (test 0 /100 WBC 0-0 miup=442) NEUTROPHILS RELATIVE PERCENT (BEAKER) (test 51 % zdjt=820) LYMPHOCYTES RELATIVE PERCENT (BEAKER) (test 32 % ayma=432) MONOCYTES RELATIVE PERCENT (BEAKER) (test 11 % zmlf=664) EOSINOPHILS RELATIVE PERCENT (BEAKER) (test 4 % qqxh=688) BASOPHILS RELATIVE PERCENT (BEAKER) (test 2 % jowu=402) NEUTROPHILS ABSOLUTE COUNT (BEAKER) (test 3.66 K/ L 1.78-5.38 fdfw=719) LYMPHOCYTES ABSOLUTE COUNT (BEAKER) (test 2.30 K/ L 1.32-3.57 tlxc=369) MONOCYTES ABSOLUTE COUNT (BEAKER) (test 0.77 K/ L 0.30-0.82 jset=331) EOSINOPHILS ABSOLUTE COUNT (BEAKER) (test 0.30 K/ L 0.04-0.54 zniq=824) BASOPHILS ABSOLUTE COUNT (BEAKER) (test 0.11 K/ L 0.01-0.08 phzt=088) IMMATURE GRANULOCYTES-RELATIVE PERCENT (BEAKER) 1 % 0-1 (test gosn=0544) RAD, CHEST, 1 VIEW, NON [id number] 19:53:00Reason for exam:->check picc placement Should this [...] MDReport Verified Date/Time: 09/15/2017 19:53:01 Reading Location: [address] Reading Room Electronically signed by: GEORGE KEYS M.D. on 07:53 PMCBC W/PLT COUNT & AUTO [id number] 10:27:00 Test Item Value Reference Range Comments WHITE BLOOD CELL COUNT (BEAKER) (test gpac=257) 7.8 K/ L 3.5-10.5 RED BLOOD CELL COUNT (BEAKER) (test asax=332) 3.95 M/ L 4.63-6.08 HEMOGLOBIN (BEAKER) (test bsug=394) 12.0 GM/DL 13.7-17.5 HEMATOCRIT (BEAKER) (test tdja=932) 35.9 % 40.1-51.0 MEAN CORPUSCULAR VOLUME (BEAKER) (test dsim=202) 90.9 fL 79.0-92.2 MEAN CORPUSCULAR HEMOGLOBIN (BEAKER) (test 30.4 pg 25.7-32.2 oiah=821) MEAN CORPUSCULAR HEMOGLOBIN CONC (BEAKER) (test 33.4 GM/DL 32.3-36.5 icel=887) RED CELL DISTRIBUTION WIDTH (BEAKER) (test 14.6 % 11.6-14.4 idpy=598) PLATELET COUNT (BEAKER) (test raig=131) 543 K/CU MM 150-450 MEAN PLATELET VOLUME (BEAKER) (test dmfp=212) 9.1 fL 9.4-12.4 NUCLEATED RED BLOOD CELLS (BEAKER) (test 0 /100 WBC 0-0 krbm=536) NEUTROPHILS RELATIVE PERCENT (BEAKER) (test 59 % gxaw=986) LYMPHOCYTES RELATIVE PERCENT (BEAKER) (test 27 % xvlj=339) MONOCYTES RELATIVE PERCENT (BEAKER) (test 11 % cgec=419) EOSINOPHILS RELATIVE PERCENT (BEAKER) (test 1 % luep=327) BASOPHILS RELATIVE PERCENT (BEAKER) (test 1 % qzwr=797) NEUTROPHILS ABSOLUTE COUNT (BEAKER) (test 4.56 K/ L 1.78-5.38 sfqy=522) LYMPHOCYTES ABSOLUTE COUNT (BEAKER) (test 2.11 K/ L 1.32-3.57 tvzp=435) MONOCYTES ABSOLUTE COUNT (BEAKER) (test 0.89 K/ L 0.30-0.82 kfgj=844) EOSINOPHILS ABSOLUTE COUNT (BEAKER) (test 0.11 K/ L 0.04-0.54 cxma=069) BASOPHILS ABSOLUTE COUNT (BEAKER) (test 0.08 K/ L 0.01-0.08 niwf=570) IMMATURE GRANULOCYTES-RELATIVE PERCENT (BEAKER) 0 % 0-1 (test xgci=0356) PERIPHERAL BLOOD SMEAR - PATHOLOGIST [id number] 10:04:00 Test Item Value Reference Range Comments PERIPHERAL SMR REVIEW (BEAKER) Thrombocytosis. No circulating (test ynpe=1492) blasts or increased schistocytes. Clinical follow up recommended. [id number] (BEAKER) Enoch Saba (test yahd=4813) Miladis(electronic signature) [id number] 06:02:00 Test Item Value Reference Range Comments PHOSPHORUS (BEAKER) (test fsmk=115) 3.3 mg/dL 2.3-4.7 [id number] 06:02:00 Test Item Value Reference Range Comments MAGNESIUM (BEAKER) (test ttjd=697) 2.0 mg/dL 1.6-2.6 BASIC METABOLIC [id number] 06:02:00 Test Item Value Reference Range Comments SODIUM (BEAKER) (test 132 meq/L 136-145 yzkg=363) POTASSIUM (BEAKER) (test 3.7 meq/L 3.5-5.1 pkwa=481) CHLORIDE (BEAKER) (test 102 meq/L 98-107 zfvp=691) CO2 (BEAKER) (test 22 meq/L 22-29 eyir=782) BLOOD UREA NITROGEN 11 mg/dL 7-21 (BEAKER) (test gixx=026) CREATININE (BEAKER) (test 0.52 mg/dL 0.57-1.25 paxl=103) GLUCOSE RANDOM (BEAKER) 76 mg/dL 70-105 (test iwxg=673) CALCIUM (BEAKER) (test 9.4 mg/dL 8.4-10.2 rnhh=850) EGFR (BEAKER) (test 178 mL/min/1.73 sq m ESTIMATED GFR IS NOT gwns=0580) ACCURATE CREATININE CLEARANCE IN PREDICTING GLOMERULAR FILTRATION RATE. ESTIMATED GFR IS NOT APPLICABLE FOR DIALYSIS PATIENTS. VITAMIN B12 AND [id number] 12:22:00 Test Item Value Reference Range Comments VITAMIN B12 (BEAKER) (test vomy=818) 527 pg/mL 213-816 FOLATE (BEAKER) (test uocb=805) 12.3 ng/mL >=7.0 [id number] 07:34:00 Test Item Value Reference Range Comments LIPASE (BEAKER) (test czum=942) 1107 U/L 8-78 BASIC METABOLIC [id number] 07:32:00 Test Item Value Reference Range Comments SODIUM (BEAKER) (test 134 meq/L 136-145 akya=338) POTASSIUM (BEAKER) (test 3.7 meq/L 3.5-5.1 zduf=229) CHLORIDE (BEAKER) (test 103 meq/L 98-107 dlcu=441) CO2 (BEAKER) (test 20 meq/L 22-29 tlre=646) BLOOD UREA NITROGEN 10 mg/dL 7-21 (BEAKER) (test cxnd=513) CREATININE (BEAKER) (test 0.59 mg/dL 0.57-1.25 vywt=337) GLUCOSE RANDOM (BEAKER) 96 mg/dL 70-105 (test kiid=312) CALCIUM (BEAKER) (test 9.7 mg/dL 8.4-10.2 uvgj=672) EGFR (BEAKER) (test 154 mL/min/1.73 sq m ESTIMATED GFR IS NOT smdw=4252) ACCURATE CREATININE CLEARANCE IN PREDICTING GLOMERULAR FILTRATION RATE. ESTIMATED GFR IS NOT APPLICABLE FOR DIALYSIS PATIENTS. [id number] 07:32:00 Test Item Value Reference Range Comments MAGNESIUM (BEAKER) (test siwj=524) 1.9 mg/dL 1.6-2.6 [id number] 07:32:00 Test Item Value Reference Range Comments PHOSPHORUS (BEAKER) (test bxfl=262) 3.4 mg/dL 2.3-4.7 CBC W/PLT COUNT & AUTO [id number] 06:44:00 Test Item Value Reference Range Comments WHITE BLOOD CELL COUNT (BEAKER) (test pfhn=504) 12.1 K/ L 3.5-10.5 RED BLOOD CELL COUNT (BEAKER) (test yffx=161) 4.34 M/ L 4.63-6.08 HEMOGLOBIN (BEAKER) (test lrde=297) 13.1 GM/DL 13.7-17.5 HEMATOCRIT (BEAKER) (test zilf=990) 39.2 % 40.1-51.0 MEAN CORPUSCULAR VOLUME (BEAKER) (test cxcl=910) 90.3 fL 79.0-92.2 MEAN CORPUSCULAR HEMOGLOBIN (BEAKER) (test 30.2 pg 25.7-32.2 rati=564) MEAN CORPUSCULAR HEMOGLOBIN CONC (BEAKER) (test 33.4 GM/DL 32.3-36.5 ckyb=935) RED CELL DISTRIBUTION WIDTH (BEAKER) (test 14.9 % 11.6-14.4 xcnt=335) PLATELET COUNT (BEAKER) (test okhk=900) 636 K/CU MM 150-450 MEAN PLATELET VOLUME (BEAKER) (test jkpp=025) 9.5 fL 9.4-12.4 NUCLEATED RED BLOOD CELLS (BEAKER) (test 0 /100 WBC 0-0 ashm=815) NEUTROPHILS RELATIVE PERCENT (BEAKER) (test 72 % crwq=329) LYMPHOCYTES RELATIVE PERCENT (BEAKER) (test 15 % pmho=032) MONOCYTES RELATIVE PERCENT (BEAKER) (test 11 % etvw=575) EOSINOPHILS RELATIVE PERCENT (BEAKER) (test 0 % nzvb=286) BASOPHILS RELATIVE PERCENT (BEAKER) (test 0 % zzfv=942) NEUTROPHILS ABSOLUTE COUNT (BEAKER) (test 8.72 K/ L 1.78-5.38 wxjp=440) LYMPHOCYTES ABSOLUTE COUNT (BEAKER) (test 1.87 K/ L 1.32-3.57 ngah=065) MONOCYTES ABSOLUTE COUNT (BEAKER) (test 1.38 K/ L 0.30-0.82 xozp=409) EOSINOPHILS ABSOLUTE COUNT (BEAKER) (test 0.02 K/ L 0.04-0.54 naen=385) BASOPHILS ABSOLUTE COUNT (BEAKER) (test 0.05 K/ L 0.01-0.08 budy=032) IMMATURE GRANULOCYTES-RELATIVE PERCENT (BEAKER) 1 % 0-1 (test pnbb=0209) FINE NEEDLE ASPIRATION BY [id number] 13:21:00Medical Cytology Report Case: [id number] Authorizing Provider: Bessy Hernandez MD Collected: 2017 1743 Ordering Location: [address] Received : 09/08/2017 1814 Service Pathologist: Mir Anthony MD Specimen: Pancreas PANCREAS HEAD CYSTICLESION FNA BY CLINICIAN ( CYTOSPINS AND CELL BLOCK OF ASPIRATE): - NO MALIGNANT CELLS IDENTIFIED - The mucin stain shows focal weak staining Signing Pathologist Direct Phone Line : [phone] signed by Mir Anthony MD on 09/11/2017 at 1:21 PMThe cell block shows non-inflammed pancreatic acinar tissue.05058, 17699, 47526(4.9 X 4.8 cm) Cystic lesion in the pancreatic headPANCREAS HEAD CYSTIC LESION FNA25 mls in cytorich red; 4 cytospins, 1 mucin stain, cell blockCollected: [id number]: [id number] [facility], Department of Pathology, [address] [place] [id number], [facility], [address] [place] [address], [id number] 10:07:00 Test Item Value Reference Range Comments PARTIAL THROMBOPLASTIN TIME (BEAKER) (test 44.5 seconds 22.5-36.0 acfh=256) BASIC METABOLIC [id number] 05:56:00 Test Item Value Reference Range Comments SODIUM (BEAKER) (test 138 meq/L 136-145 mbxa=911) POTASSIUM (BEAKER) (test 3.7 meq/L 3.5-5.1 ccbl=486) CHLORIDE (BEAKER) (test 105 meq/L 98-107 ketu=549) CO2 (BEAKER) (test 25 meq/L 22-29 ttqx=937) BLOOD UREA NITROGEN 7 mg/dL 7-21 (BEAKER) (test oyqe=800) CREATININE (BEAKER) (test 0.62 mg/dL 0.57-1.25 cydo=612) GLUCOSE RANDOM (BEAKER) 120 mg/dL 70-105 (test vjpn=569) CALCIUM (BEAKER) (test 8.7 mg/dL 8.4-10.2 mqni=165) EGFR (BEAKER) (test 145 mL/min/1.73 sq m ESTIMATED GFR IS NOT mcdi=6906) ACCURATE CREATININE CLEARANCE IN PREDICTING GLOMERULAR FILTRATION RATE. ESTIMATED GFR IS NOT APPLICABLE FOR DIALYSIS PATIENTS. CBC W/PLT COUNT & AUTO [id number] 05:42:00 Test Item Value Reference Range Comments WHITE BLOOD CELL COUNT (BEAKER) (test zchs=588) 4.6 K/ L 3.5-10.5 RED BLOOD CELL COUNT (BEAKER) (test ayuk=451) 3.83 M/ L 4.63-6.08 HEMOGLOBIN (BEAKER) (test tzja=222) 11.7 GM/DL 13.7-17.5 HEMATOCRIT (BEAKER) (test gcjo=249) 34.7 % 40.1-51.0 MEAN CORPUSCULAR VOLUME (BEAKER) (test ibgd=166) 90.6 fL 79.0-92.2 MEAN CORPUSCULAR HEMOGLOBIN (BEAKER) (test 30.5 pg 25.7-32.2 wfrh=515) MEAN CORPUSCULAR HEMOGLOBIN CONC (BEAKER) (test 33.7 GM/DL 32.3-36.5 gswn=458) RED CELL DISTRIBUTION WIDTH (BEAKER) (test 14.3 % 11.6-14.4 tkuq=667) PLATELET COUNT (BEAKER) (test yfwh=398) 378 K/CU MM 150-450 MEAN PLATELET VOLUME (BEAKER) (test jxvs=431) 9.0 fL 9.4-12.4 NUCLEATED RED BLOOD CELLS (BEAKER) (test 0 /100 WBC 0-0 yjto=140) NEUTROPHILS RELATIVE PERCENT (BEAKER) (test 39 % iuxl=103) LYMPHOCYTES RELATIVE PERCENT (BEAKER) (test 43 % wmqz=435) MONOCYTES RELATIVE PERCENT (BEAKER) (test 12 % ozja=626) EOSINOPHILS RELATIVE PERCENT (BEAKER) (test 5 % tbpb=547) BASOPHILS RELATIVE PERCENT (BEAKER) (test 1 % eqkr=750) NEUTROPHILS ABSOLUTE COUNT (BEAKER) (test 1.81 K/ L 1.78-5.38 rpwp=180) LYMPHOCYTES ABSOLUTE COUNT (BEAKER) (test 2.01 K/ L 1.32-3.57 upzp=263) MONOCYTES ABSOLUTE COUNT (BEAKER) (test 0.55 K/ L 0.30-0.82 nlbr=334) EOSINOPHILS ABSOLUTE COUNT (BEAKER) (test 0.21 K/ L 0.04-0.54 jffh=585) BASOPHILS ABSOLUTE COUNT (BEAKER) (test 0.05 K/ L 0.01-0.08 yqyo=048) IMMATURE GRANULOCYTES-RELATIVE PERCENT (BEAKER) 0 % 0-1 (test wcnw=6086) FINE NEEDLE ASPIRATE (FNA) [id number] 20:00:00 Test Item Value Reference Range Comments CYTOLOGY RESULT POINTER (BEAKER) (test See Separate Report smgr=[id number]) [id number] 12:16:00 Test Item Value Reference Range Comments PARTIAL THROMBOPLASTIN TIME (BEAKER) (test 84.6 seconds 22.5-36.0 sngj=483) BASIC METABOLIC [id number] 05:21:00 Test Item Value Reference Range Comments SODIUM (BEAKER) (test 126 meq/L 136-145 vppb=828) POTASSIUM (BEAKER) (test 2.8 meq/L 3.5-5.1 ptck=673) CHLORIDE (BEAKER) (test 99 meq/L 98-107 runb=175) CO2 (BEAKER) (test 20 meq/L 22-29 bttj=411) BLOOD UREA NITROGEN 3 mg/dL 7-21 (BEAKER) (test jlex=892) CREATININE (BEAKER) (test 0.44 mg/dL 0.57-1.25 lpbx=971) GLUCOSE RANDOM (BEAKER) 75 mg/dL 70-105 (test ujom=686) CALCIUM (BEAKER) (test 6.8 mg/dL 8.4-10.2 huyt=585) EGFR (BEAKER) (test 216 mL/min/1.73 sq m ESTIMATED GFR IS NOT dqla=1424) ACCURATE CREATININE CLEARANCE IN PREDICTING GLOMERULAR FILTRATION RATE. ESTIMATED GFR IS NOT APPLICABLE FOR DIALYSIS PATIENTS. [id number] 05:13:00 Test Item Value Reference Range Comments PARTIAL THROMBOPLASTIN TIME (BEAKER) (test 110.2 seconds 22.5-36.0 jrgh=957) CBC W/PLT COUNT & AUTO [id number] 04:45:00 Test Item Value Reference Range Comments WHITE BLOOD CELL COUNT (BEAKER) (test riyq=874) 4.4 K/ L 3.5-10.5 RED BLOOD CELL COUNT (BEAKER) (test auqi=788) 3.25 M/ L 4.63-6.08 HEMOGLOBIN (BEAKER) (test lvwq=520) 10.1 GM/DL 13.7-17.5 HEMATOCRIT (BEAKER) (test egrq=440) 29.9 % 40.1-51.0 MEAN CORPUSCULAR VOLUME (BEAKER) (test nvqu=512) 92.0 fL 79.0-92.2 MEAN CORPUSCULAR HEMOGLOBIN (BEAKER) (test 31.1 pg 25.7-32.2 wmpd=586) MEAN CORPUSCULAR HEMOGLOBIN CONC (BEAKER) (test 33.8 GM/DL 32.3-36.5 fbvy=658) RED CELL DISTRIBUTION WIDTH (BEAKER) (test 14.5 % 11.6-14.4 fpmf=928) PLATELET COUNT (BEAKER) (test hits=613) 297 K/CU MM 150-450 MEAN PLATELET VOLUME (BEAKER) (test dnva=952) 9.1 fL 9.4-12.4 NUCLEATED RED BLOOD CELLS (BEAKER) (test 0 /100 WBC 0-0 kwrz=097) NEUTROPHILS RELATIVE PERCENT (BEAKER) (test 44 % vnsp=836) LYMPHOCYTES RELATIVE PERCENT (BEAKER) (test 40 % lllu=510) MONOCYTES RELATIVE PERCENT (BEAKER) (test 11 % bzba=457) EOSINOPHILS RELATIVE PERCENT (BEAKER) (test 4 % luih=232) BASOPHILS RELATIVE PERCENT (BEAKER) (test 1 % yjwu=113) NEUTROPHILS ABSOLUTE COUNT (BEAKER) (test 1.96 K/ L 1.78-5.38 qbcc=073) LYMPHOCYTES ABSOLUTE COUNT (BEAKER) (test 1.77 K/ L 1.32-3.57 frkv=682) MONOCYTES ABSOLUTE COUNT (BEAKER) (test 0.49 K/ L 0.30-0.82 gjne=720) EOSINOPHILS ABSOLUTE COUNT (BEAKER) (test 0.16 K/ L 0.04-0.54 izpt=630) BASOPHILS ABSOLUTE COUNT (BEAKER) (test 0.05 K/ L 0.01-0.08 vxzb=483) IMMATURE GRANULOCYTES-RELATIVE PERCENT (BEAKER) 0 % 0-1 (test npvj=3344) [id number] 21:32:00 Test Item Value Reference Range Comments PARTIAL THROMBOPLASTIN TIME (BEAKER) (test 118.1 seconds 22.5-36.0 ibli=808) BASIC METABOLIC [id number] 14:23:00 Test Item Value Reference Range Comments SODIUM (BEAKER) (test 139 meq/L 136-145 wdhd=666) POTASSIUM (BEAKER) (test 3.6 meq/L 3.5-5.1 vvbp=429) CHLORIDE (BEAKER) (test 103 meq/L 98-107 rovj=670) CO2 (BEAKER) (test 29 meq/L 22-29 icjq=895) BLOOD UREA NITROGEN 3 mg/dL 7-21 (BEAKER) (test gcax=283) CREATININE (BEAKER) (test 0.54 mg/dL 0.57-1.25 mibk=425) GLUCOSE RANDOM (BEAKER) 108 mg/dL 70-105 (test xzcr=702) CALCIUM (BEAKER) (test 8.6 mg/dL 8.4-10.2 bykt=329) EGFR (BEAKER) (test 170 mL/min/1.73 sq m ESTIMATED GFR IS NOT xwyb=4621) ACCURATE CREATININE CLEARANCE IN PREDICTING GLOMERULAR FILTRATION RATE. ESTIMATED GFR IS NOT APPLICABLE FOR DIALYSIS PATIENTS. [id number] 14:06:00 Test Item Value Reference Range Comments PARTIAL THROMBOPLASTIN TIME (BEAKER) (test 66.8 seconds 22.5-36.0 qgro=421) CBC W/PLT COUNT & AUTO [id number] 13:57:00 Test Item Value Reference Range Comments WHITE BLOOD CELL COUNT (BEAKER) (test ozkw=528) 4.6 K/ L 3.5-10.5 RED BLOOD CELL COUNT (BEAKER) (test qrvu=609) 3.95 M/ L 4.63-6.08 HEMOGLOBIN (BEAKER) (test hiuw=806) 11.9 GM/DL 13.7-17.5 HEMATOCRIT (BEAKER) (test rrqo=899) 36.5 % 40.1-51.0 MEAN CORPUSCULAR VOLUME (BEAKER) (test yjds=189) 92.4 fL 79.0-92.2 MEAN CORPUSCULAR HEMOGLOBIN (BEAKER) (test 30.1 pg 25.7-32.2 kjwd=804) MEAN CORPUSCULAR HEMOGLOBIN CONC (BEAKER) (test 32.6 GM/DL 32.3-36.5 tamb=673) RED CELL DISTRIBUTION WIDTH (BEAKER) (test 14.2 % 11.6-14.4 qsdl=995) PLATELET COUNT (BEAKER) (test wosm=886) 347 K/CU MM 150-450 MEAN PLATELET VOLUME (BEAKER) (test hxpk=173) 9.2 fL 9.4-12.4 NUCLEATED RED BLOOD CELLS (BEAKER) (test 0 /100 WBC 0-0 dbsc=381) NEUTROPHILS RELATIVE PERCENT (BEAKER) (test 44 % fmuc=856) LYMPHOCYTES RELATIVE PERCENT (BEAKER) (test 37 % ssyh=541) MONOCYTES RELATIVE PERCENT (BEAKER) (test 13 % dbjz=624) EOSINOPHILS RELATIVE PERCENT (BEAKER) (test 5 % bwht=068) BASOPHILS RELATIVE PERCENT (BEAKER) (test 1 % pbsc=681) NEUTROPHILS ABSOLUTE COUNT (BEAKER) (test 1.99 K/ L 1.78-5.38 iada=677) LYMPHOCYTES ABSOLUTE COUNT (BEAKER) (test 1.69 K/ L 1.32-3.57 swqg=635) MONOCYTES ABSOLUTE COUNT (BEAKER) (test 0.61 K/ L 0.30-0.82 vyug=869) EOSINOPHILS ABSOLUTE COUNT (BEAKER) (test 0.21 K/ L 0.04-0.54 xeei=084) BASOPHILS ABSOLUTE COUNT (BEAKER) (test 0.05 K/ L 0.01-0.08 guji=289) IMMATURE GRANULOCYTES-RELATIVE PERCENT (BEAKER) 0 % 0-1 (test dfwl=7802) BASIC METABOLIC [id number] 07:03:00 Test Item Value Reference Range Comments SODIUM (BEAKER) (test 140 meq/L 136-145 pyzz=227) POTASSIUM (BEAKER) (test 3.4 meq/L 3.5-5.1 moiu=739) CHLORIDE (BEAKER) (test 100 meq/L 98-107 ctss=598) CO2 (BEAKER) (test 30 meq/L 22-29 geqg=382) BLOOD UREA NITROGEN 3 mg/dL 7-21 (BEAKER) (test wihv=229) CREATININE (BEAKER) (test 0.56 mg/dL 0.57-1.25 qbbl=238) GLUCOSE RANDOM (BEAKER) 102 mg/dL 70-105 (test vvps=718) CALCIUM (BEAKER) (test 9.2 mg/dL 8.4-10.2 bxeq=032) EGFR (BEAKER) (test 163 mL/min/1.73 sq m ESTIMATED GFR IS NOT iwbu=3728) ACCURATE CREATININE CLEARANCE IN PREDICTING GLOMERULAR FILTRATION RATE. ESTIMATED GFR IS NOT APPLICABLE FOR DIALYSIS PATIENTS. [id number] 06:47:00 Test Item Value Reference Range Comments PARTIAL THROMBOPLASTIN TIME (BEAKER) (test 46.7 seconds 22.5-36.0 hiqy=734) [id number] 00:50:00 Test Item Value Reference Range Comments PARTIAL THROMBOPLASTIN TIME (BEAKER) (test 53.5 seconds 22.5-36.0 rvdv=959) [id number] 17:34:00 Test Item Value Reference Range Comments PARTIAL THROMBOPLASTIN TIME (BEAKER) (test 45.8 seconds 22.5-36.0 wzyk=530) [id number] 08:32:00 Test Item Value Reference Range Comments PARTIAL THROMBOPLASTIN TIME (BEAKER) (test 38.7 seconds 22.5-36.0 arwn=151) Prior to initiating heparinBASIC METABOLIC [id number] 06:05:00 Test Item Value Reference Range Comments SODIUM (BEAKER) (test 136 meq/L 136-145 yatc=777) POTASSIUM (BEAKER) (test 3.3 meq/L 3.5-5.1 zxbm=296) CHLORIDE (BEAKER) (test 102 meq/L 98-107 yelx=457) CO2 (BEAKER) (test 26 meq/L 22-29 olzs=661) BLOOD UREA NITROGEN 2 mg/dL 7-21 (BEAKER) (test yusk=478) CREATININE (BEAKER) (test 0.55 mg/dL 0.57-1.25 jmuc=126) GLUCOSE RANDOM (BEAKER) 124 mg/dL 70-105 (test bwrv=737) CALCIUM (BEAKER) (test 8.0 mg/dL 8.4-10.2 yzat=408) EGFR (BEAKER) (test 167 mL/min/1.73 sq m ESTIMATED GFR IS NOT ngru=0050) ACCURATE CREATININE CLEARANCE IN PREDICTING GLOMERULAR FILTRATION RATE. ESTIMATED GFR IS NOT APPLICABLE FOR DIALYSIS PATIENTS. BLOOD [id number] 06:00:00 Test Item Value Reference Range Comments CULTURE (BEAKER) (test elpd=9429) No growth in 5 days BLOOD [id number] 06:00:00 Test Item Value Reference Range Comments CULTURE (BEAKER) (test iaeg=1825) No growth in 5 days [id number] 03:55:00 Test Item Value Reference Range Comments PHOSPHORUS (BEAKER) (test xtet=909) 2.8 mg/dL 2.3-4.7 [id number] 03:55:00 Test Item Value Reference Range Comments MAGNESIUM (BEAKER) (test dmrx=771) 1.3 mg/dL 1.6-2.6 BASIC METABOLIC [id number] 03:55:00 Test Item Value Reference Range Comments SODIUM (BEAKER) (test 137 meq/L 136-145 nrtd=393) POTASSIUM (BEAKER) (test 3.2 meq/L 3.5-5.1 rcuy=075) CHLORIDE (BEAKER) (test 103 meq/L 98-107 sosx=342) CO2 (BEAKER) (test 22 meq/L 22-29 ybck=013) BLOOD UREA NITROGEN 3 mg/dL 7-21 (BEAKER) (test eiaf=091) CREATININE (BEAKER) (test 0.51 mg/dL 0.57-1.25 pcea=067) GLUCOSE RANDOM (BEAKER) 65 mg/dL 70-105 (test jlwy=444) CALCIUM (BEAKER) (test 8.0 mg/dL 8.4-10.2 eekh=733) EGFR (BEAKER) (test 182 mL/min/1.73 sq m ESTIMATED GFR IS NOT oqnc=9059) ACCURATE CREATININE CLEARANCE IN PREDICTING GLOMERULAR FILTRATION RATE. ESTIMATED GFR IS NOT APPLICABLE FOR DIALYSIS PATIENTS. [id number] 03:55:00 Test Item Value Reference Range Comments LIPASE (BEAKER) (test qvkb=208) 210 U/L 8-78 CBC W/PLT COUNT & AUTO [id number] 03:37:00 Test Item Value Reference Range Comments WHITE BLOOD CELL COUNT (BEAKER) (test aufn=124) 6.1 K/ L 3.5-10.5 RED BLOOD CELL COUNT (BEAKER) (test ehnc=168) 3.63 M/ L 4.63-6.08 HEMOGLOBIN (BEAKER) (test wtad=447) 11.1 GM/DL 13.7-17.5 HEMATOCRIT (BEAKER) (test ldix=668) 33.0 % 40.1-51.0 MEAN CORPUSCULAR VOLUME (BEAKER) (test allq=536) 90.9 fL 79.0-92.2 MEAN CORPUSCULAR HEMOGLOBIN (BEAKER) (test 30.6 pg 25.7-32.2 uegb=195) MEAN CORPUSCULAR HEMOGLOBIN CONC (BEAKER) (test 33.6 GM/DL 32.3-36.5 nifc=245) RED CELL DISTRIBUTION WIDTH (BEAKER) (test 14.3 % 11.6-14.4 bdon=168) PLATELET COUNT (BEAKER) (test xawl=044) 262 K/CU MM 150-450 MEAN PLATELET VOLUME (BEAKER) (test noxq=782) 9.1 fL 9.4-12.4 NUCLEATED RED BLOOD CELLS (BEAKER) (test 0 /100 WBC 0-0 kkij=231) NEUTROPHILS RELATIVE PERCENT (BEAKER) (test 69 % zvke=702) LYMPHOCYTES RELATIVE PERCENT (BEAKER) (test 17 % tsam=391) MONOCYTES RELATIVE PERCENT (BEAKER) (test 10 % ooiv=607) EOSINOPHILS RELATIVE PERCENT (BEAKER) (test 3 % elwj=620) BASOPHILS RELATIVE PERCENT (BEAKER) (test 0 % uhpo=202) NEUTROPHILS ABSOLUTE COUNT (BEAKER) (test 4.21 K/ L 1.78-5.38 ndjy=717) LYMPHOCYTES ABSOLUTE COUNT (BEAKER) (test 1.04 K/ L 1.32-3.57 dalp=210) MONOCYTES ABSOLUTE COUNT (BEAKER) (test 0.60 K/ L 0.30-0.82 solo=640) EOSINOPHILS ABSOLUTE COUNT (BEAKER) (test 0.18 K/ L 0.04-0.54 grjw=810) BASOPHILS ABSOLUTE COUNT (BEAKER) (test 0.02 K/ L 0.01-0.08 iuzi=154) IMMATURE GRANULOCYTES-RELATIVE PERCENT (BEAKER) 1 % 0-1 (test jlef=5052) CT, ABDOMEN - PELVIS, PANCREAS [id number] 00:22:00Reason for exam:-&gt ;pancreatitisFINAL REPORT CT, ABDOMEN [...] vascular compromise. Signed: JR Robin, Jesus Manuel MDReport Verified Date/ Time: 09/04/2017 00:22:52 Reading Location: [address] Reading Room [id number] 06:00:00 Test Item Value Reference Range Comments MAGNESIUM (BEAKER) (test 1.6 mg/dL 1.6-2.6 Specimen slightly hemolyzed ayec=221) [id number] 06:00:00 Test Item Value Reference Range Comments PHOSPHORUS (BEAKER) (test 3.4 mg/dL 2.3-4.7 Specimen slightly hemolyzed wabk=352) BASIC METABOLIC [id number] 06:00:00 Test Item Value Reference Range Comments SODIUM (BEAKER) (test 132 meq/L 136-145 hdfl=024) POTASSIUM (BEAKER) (test 3.9 meq/L 3.5-5.1 Specimen slightly ljuu=121) hemolyzed CHLORIDE (BEAKER) (test 101 meq/L 98-107 mvcw=690) CO2 (BEAKER) (test 22 meq/L 22-29 djel=857) BLOOD UREA NITROGEN 7 mg/dL 7-21 (BEAKER) (test ftkg=388) CREATININE (BEAKER) (test 0.49 mg/dL 0.57-1.25 Specimen slightly jmak=114) hemolyzed GLUCOSE RANDOM (BEAKER) 59 mg/dL 70-105 (test brhf=849) CALCIUM (BEAKER) (test 8.1 mg/dL 8.4-10.2 evfq=066) EGFR (BEAKER) (test 190 mL/min/1.73 sq m ESTIMATED GFR IS NOT tvpz=1461) ACCURATE CREATININE CLEARANCE IN PREDICTING GLOMERULAR FILTRATION RATE. ESTIMATED GFR IS NOT APPLICABLE FOR DIALYSIS PATIENTS. HEPATIC FUNCTION [id number] 06:00:00 Test Item Value Reference Range Comments TOTAL PROTEIN (BEAKER) (test 5.7 gm/dL 6.0-8.3 Specimen slightly hemolyzed nwwd=170) ALBUMIN (BEAKER) (test 3.0 g/dL 3.5-5.0 Specimen slightly hemolyzed jkvu=5328) BILIRUBIN TOTAL (BEAKER) (test 1.2 mg/dL 0.2-1.2 Specimen slightly hemolyzed jngx=723) BILIRUBIN DIRECT (BEAKER) (test 0.4 mg/dL 0.1-0.5 Specimen slightly hemolyzed wpyx=998) ALKALINE PHOSPHATASE (BEAKER) 62 U/L 40-150 (test swzq=877) AST (SGOT) (BEAKER) (test 18 U/L 5-34 Specimen slightly hemolyzed pliw=922) ALT (SGPT) (BEAKER) (test < U/L 6-55 Specimen slightly hemolyzed xxaw=752) CBC W/PLT COUNT & AUTO [id number] 05:43:00 Test Item Value Reference Range Comments WHITE BLOOD CELL COUNT (BEAKER) (test wgio=508) 8.4 K/ L 3.5-10.5 RED BLOOD CELL COUNT (BEAKER) (test xjot=903) 3.68 M/ L 4.63-6.08 HEMOGLOBIN (BEAKER) (test ztxv=560) 11.6 GM/DL 13.7-17.5 HEMATOCRIT (BEAKER) (test cufm=677) 34.4 % 40.1-51.0 MEAN CORPUSCULAR VOLUME (BEAKER) (test vxsg=001) 93.5 fL 79.0-92.2 MEAN CORPUSCULAR HEMOGLOBIN (BEAKER) (test 31.5 pg 25.7-32.2 ijde=144) MEAN CORPUSCULAR HEMOGLOBIN CONC (BEAKER) (test 33.7 GM/DL 32.3-36.5 oowy=197) RED CELL DISTRIBUTION WIDTH (BEAKER) (test 14.6 % 11.6-14.4 svuz=675) PLATELET COUNT (BEAKER) (test wiww=284) 221 K/CU MM 150-450 MEAN PLATELET VOLUME (BEAKER) (test cnsd=730) 9.5 fL 9.4-12.4 NUCLEATED RED BLOOD CELLS (BEAKER) (test 0 /100 WBC 0-0 npdj=167) NEUTROPHILS RELATIVE PERCENT (BEAKER) (test 75 % rgjn=079) LYMPHOCYTES RELATIVE PERCENT (BEAKER) (test 14 % mpeb=432) MONOCYTES RELATIVE PERCENT (BEAKER) (test 10 % trtm=981) EOSINOPHILS RELATIVE PERCENT (BEAKER) (test 1 % ymyb=224) BASOPHILS RELATIVE PERCENT (BEAKER) (test 0 % bzce=266) NEUTROPHILS ABSOLUTE COUNT (BEAKER) (test 6.27 K/ L 1.78-5.38 eqbk=918) LYMPHOCYTES ABSOLUTE COUNT (BEAKER) (test 1.16 K/ L 1.32-3.57 kknw=624) MONOCYTES ABSOLUTE COUNT (BEAKER) (test 0.87 K/ L 0.30-0.82 jmll=923) EOSINOPHILS ABSOLUTE COUNT (BEAKER) (test 0.07 K/ L 0.04-0.54 pywl=247) BASOPHILS ABSOLUTE COUNT (BEAKER) (test 0.03 K/ L 0.01-0.08 oiyc=706) IMMATURE GRANULOCYTES-RELATIVE PERCENT (BEAKER) 0 % 0-1 (test hniq=3186) POCT-GLUCOSE [id number] 07:30:00 Test Item Value Reference Range Comments POC-GLUCOSE METER (BEAKER) 140 mg/dL 70-110 TESTED AT [address] (test ytrg=6065) [place] [id number] POCT-GLUCOSE [id number] 07:30:00 Test Item Value Reference Range Comments POC-GLUCOSE METER (BEAKER) 59 mg/dL 70-110 TESTED AT [address] (test ovzd=7082) [facility] [id number] 05:16:00 Test Item Value Reference Range Comments MAGNESIUM (BEAKER) (test 1.7 mg/dL 1.6-2.6 Specimen slightly hemolyzed yxfl=329) [id number] 05:16:00 Test Item Value Reference Range Comments PHOSPHORUS (BEAKER) (test 3.7 mg/dL 2.3-4.7 Specimen slightly hemolyzed delz=708) BASIC METABOLIC [id number] 05:16:00 Test Item Value Reference Range Comments SODIUM (BEAKER) (test 136 meq/L 136-145 wbkg=517) POTASSIUM (BEAKER) (test 4.1 meq/L 3.5-5.1 Specimen slightly umng=542) hemolyzed CHLORIDE (BEAKER) (test 105 meq/L 98-107 orkt=355) CO2 (BEAKER) (test 21 meq/L 22-29 ckin=665) BLOOD UREA NITROGEN 12 mg/dL 7-21 (BEAKER) (test nieq=118) CREATININE (BEAKER) (test 0.62 mg/dL 0.57-1.25 Specimen slightly vwjn=392) hemolyzed GLUCOSE RANDOM (BEAKER) 65 mg/dL 70-105 (test srvd=290) CALCIUM (BEAKER) (test 8.4 mg/dL 8.4-10.2 vtng=739) EGFR (BEAKER) (test 145 mL/min/1.73 sq m ESTIMATED GFR IS NOT qwfz=1465) ACCURATE CREATININE CLEARANCE IN PREDICTING GLOMERULAR FILTRATION RATE. ESTIMATED GFR IS NOT APPLICABLE FOR DIALYSIS PATIENTS. HEPATIC FUNCTION [id number] 05:16:00 Test Item Value Reference Range Comments TOTAL PROTEIN (BEAKER) (test 5.9 gm/dL 6.0-8.3 Specimen slightly hemolyzed bimr=243) ALBUMIN (BEAKER) (test 3.3 g/dL 3.5-5.0 Specimen slightly hemolyzed zwwn=6826) BILIRUBIN TOTAL (BEAKER) (test 1.4 mg/dL 0.2-1.2 Specimen slightly hemolyzed cqwe=421) BILIRUBIN DIRECT (BEAKER) (test 0.5 mg/dL 0.1-0.5 Specimen slightly hemolyzed zlms=874) ALKALINE PHOSPHATASE (BEAKER) 66 U/L 40-150 (test ejvm=603) AST (SGOT) (BEAKER) (test 16 U/L 5-34 Specimen slightly hemolyzed iqeu=990) ALT (SGPT) (BEAKER) (test 6 U/L 6-55 Specimen slightly hemolyzed czpd=661) CBC W/PLT COUNT & AUTO [id number] 04:45:00 Test Item Value Reference Range Comments WHITE BLOOD CELL COUNT (BEAKER) (test gkwr=811) 9.1 K/ L 3.5-10.5 RED BLOOD CELL COUNT (BEAKER) (test pjhh=436) 4.04 M/ L 4.63-6.08 HEMOGLOBIN (BEAKER) (test vpsz=126) 12.3 GM/DL 13.7-17.5 HEMATOCRIT (BEAKER) (test jmoj=524) 38.1 % 40.1-51.0 MEAN CORPUSCULAR VOLUME (BEAKER) (test auwn=373) 94.3 fL 79.0-92.2 MEAN CORPUSCULAR HEMOGLOBIN (BEAKER) (test 30.4 pg 25.7-32.2 jrze=617) MEAN CORPUSCULAR HEMOGLOBIN CONC (BEAKER) (test 32.3 GM/DL 32.3-36.5 ifsp=000) RED CELL DISTRIBUTION WIDTH (BEAKER) (test 15.7 % 11.6-14.4 kkpp=647) PLATELET COUNT (BEAKER) (test trwb=089) 243 K/CU MM 150-450 MEAN PLATELET VOLUME (BEAKER) (test zqlm=220) 9.5 fL 9.4-12.4 NUCLEATED RED BLOOD CELLS (BEAKER) (test 0 /100 WBC 0-0 zjid=215) NEUTROPHILS RELATIVE PERCENT (BEAKER) (test 72 % delt=573) LYMPHOCYTES RELATIVE PERCENT (BEAKER) (test 16 % kmic=523) MONOCYTES RELATIVE PERCENT (BEAKER) (test 10 % grzw=775) EOSINOPHILS RELATIVE PERCENT (BEAKER) (test 1 % wtqb=039) BASOPHILS RELATIVE PERCENT (BEAKER) (test 0 % muxs=106) NEUTROPHILS ABSOLUTE COUNT (BEAKER) (test 6.58 K/ L 1.78-5.38 nssw=689) LYMPHOCYTES ABSOLUTE COUNT (BEAKER) (test 1.48 K/ L 1.32-3.57 ehvv=747) MONOCYTES ABSOLUTE COUNT (BEAKER) (test 0.95 K/ L 0.30-0.82 biow=174) EOSINOPHILS ABSOLUTE COUNT (BEAKER) (test 0.05 K/ L 0.04-0.54 auhz=104) BASOPHILS ABSOLUTE COUNT (BEAKER) (test 0.04 K/ L 0.01-0.08 vqpz=565) IMMATURE GRANULOCYTES-RELATIVE PERCENT (BEAKER) 0 % 0-1 (test skad=9489) HEMOGLOBIN [id number] 10:23:00 Test Item Value Reference Range Comments HEMOGLOBIN A1C (BEAKER) (test psca=349) 4.7 % 4.3-6.1 U/S, ABDOMINAL, [id number] 09:53:00Abdomen limited area? Add comment if clarification [...] Nelson MDReport Verified Date/Time:09/01/2017 09:53:12 Reading Location: [address] Ultrasound Reading Room SEDIMENTATION [id number] 08:01:00 Test Item Value Reference Range Comments SEDIMENTATION RATE, ERYTHROCYTE (BEAKER) (test 3 mm/HR 0-15 bqzd=410) TSH/FREE T4 IF [id number] 04:12:00 Test Item Value Reference Range Comments THYROID STIMULATING HORMONE (BEAKER) (test 0.36 uIU/mL 0.35-4.94 vyew=134) CREATINE KINASE (CK), TOTAL AND [id number] 04:03:00 Test Item Value Reference Range Comments CREATINE KINASE TOTAL (BEAKER) (test nfhu=433) 29 U/L 29-200 CREATINE KINASE-MB (BEAKER) (test kuxx=057) 0.4 ng/mL 0.0-6.6 CREATINE KINASE-MB INDEX (BEAKER) (test oyeg=816) 1.4 % CK-MB Reference Range:<6.7 Normal6.7-10.0 Borderline>10.0 AbnormalTROPONIN [id number] 04:03:00 Test Item Value Reference Range Comments TROPONIN I (BEAKER) (test ujqq=780) < ng/mL 0.00-0.03 Troponin I (TnI) levels [...] failure, acidosis, acute neurological disease, and persistent tachyarrhythmia.[id number] 03:53:00 Test Item Value Reference Range Comments PHOSPHORUS (BEAKER) (test cziw=702) 3.5 mg/dL 2.3-4.7 [id number] 03:53:00 Test Item Value Reference Range Comments MAGNESIUM (BEAKER) (test ompk=439) 1.7 mg/dL 1.6-2.6 BASIC METABOLIC [id number] 03:53:00 Test Item Value Reference Range Comments SODIUM (BEAKER) (test 137 meq/L 136-145 mjbn=340) POTASSIUM (BEAKER) (test 3.8 meq/L 3.5-5.1 llgh=103) CHLORIDE (BEAKER) (test 105 meq/L 98-107 ziqh=429) CO2 (BEAKER) (test 23 meq/L 22-29 npya=534) BLOOD UREA NITROGEN 7 mg/dL 7-21 (BEAKER) (test hbpg=574) CREATININE (BEAKER) (test 0.62 mg/dL 0.57-1.25 edxp=871) GLUCOSE RANDOM (BEAKER) 102 mg/dL 70-105 (test zkmq=065) CALCIUM (BEAKER) (test 9.0 mg/dL 8.4-10.2 twrk=383) EGFR (BEAKER) (test 145 mL/min/1.73 sq m ESTIMATED GFR IS NOT kpca=5255) ACCURATE CREATININE CLEARANCE IN PREDICTING GLOMERULAR FILTRATION RATE. ESTIMATED GFR IS NOT APPLICABLE FOR DIALYSIS PATIENTS. LIPID [id number] 03:53:00 Test Item Value Reference Range Comments TRIGLYCERIDES (BEAKER) (test bdxx=310) 76 mg/dL CHOLESTEROL (BEAKER) (test qbdi=257) 118 mg/dL HDL CHOLESTEROL (BEAKER) (test dwhq=211) 37 mg/dL LDL CHOLESTEROL CALCULATED (BEAKER) (test 66 mg/dL rayn=061) Triglyceride Reference Range: Low Risk <150 Borderline 150- 199 High Risk 200-499 Very High Risk >=500Cholesterol Reference Range: Low Risk <200 Borderline 200-239 High Risk > 240HDL Cholesterol Reference Range: Low Risk >=60 High Risk <40LDL Cholesterol Reference Range: Optimal <100 Near Optimal 100-129 Borderline 130-159 High 160-189 Very High >=190HEPATIC FUNCTION [id number] 03:53:00 Test Item Value Reference Range Comments TOTAL PROTEIN (BEAKER) (test aaee=973) 6.8 gm/dL 6.0-8.3 ALBUMIN (BEAKER) (test vvcn=2718) 3.9 g/dL 3.5-5.0 BILIRUBIN TOTAL (BEAKER) (test nmkt=166) 1.2 mg/dL 0.2-1.2 BILIRUBIN DIRECT (BEAKER) (test wasw=850) 0.5 mg/dL 0.1-0.5 ALKALINE PHOSPHATASE (BEAKER) (test rpvc=470) 81 U/L 40-150 AST (SGOT) (BEAKER) (test zlcg=657) 13 U/L 5-34 ALT (SGPT) (BEAKER) (test kszu=253) 6 U/L 6-55 [id number] 03:53:00 Test Item Value Reference Range Comments AMYLASE (BEAKER) (test wbsg=682) 383 U/L 25-125 [id number] 03:53:00 Test Item Value Reference Range Comments LIPASE (BEAKER) (test esoj=763) 266 U/L 8-78 C-REACTIVE [id number] 03:53:00 Test Item Value Reference Range Comments C-REACTIVE PROTEIN (BEAKER) (test zvwf=684) 0.23 mg/dL 0.00-0.50 CBC W/PLT COUNT & AUTO [id number] 03:38:00 Test Item Value Reference Range Comments WHITE BLOOD CELL COUNT (BEAKER) (test ixyg=237) 10.7 K/ L 3.5-10.5 RED BLOOD CELL COUNT (BEAKER) (test aghf=608) 4.45 M/ L 4.63-6.08 HEMOGLOBIN (BEAKER) (test bfga=702) 13.6 GM/DL 13.7-17.5 HEMATOCRIT (BEAKER) (test dqlx=197) 40.4 % 40.1-51.0 MEAN CORPUSCULAR VOLUME (BEAKER) (test irdb=956) 90.8 fL 79.0-92.2 MEAN CORPUSCULAR HEMOGLOBIN (BEAKER) (test 30.6 pg 25.7-32.2 cwsv=168) MEAN CORPUSCULAR HEMOGLOBIN CONC (BEAKER) (test 33.7 GM/DL 32.3-36.5 mxms=683) RED CELL DISTRIBUTION WIDTH (BEAKER) (test 15.5 % 11.6-14.4 sjbs=919) PLATELET COUNT (BEAKER) (test lent=931) 277 K/CU MM 150-450 MEAN PLATELET VOLUME (BEAKER) (test ukkk=861) 9.7 fL 9.4-12.4 NUCLEATED RED BLOOD CELLS (BEAKER) (test 0 /100 WBC 0-0 ckrz=571) NEUTROPHILS RELATIVE PERCENT (BEAKER) (test 70 % rtjm=494) LYMPHOCYTES RELATIVE PERCENT (BEAKER) (test 18 % hqfk=907) MONOCYTES RELATIVE PERCENT (BEAKER) (test 11 % utvt=840) EOSINOPHILS RELATIVE PERCENT (BEAKER) (test 0 % rnkh=365) BASOPHILS RELATIVE PERCENT (BEAKER) (test 0 % rhnc=073) NEUTROPHILS ABSOLUTE COUNT (BEAKER) (test 7.46 K/ L 1.78-5.38 mnpv=532) LYMPHOCYTES ABSOLUTE COUNT (BEAKER) (test 1.93 K/ L 1.32-3.57 vtzr=303) MONOCYTES ABSOLUTE COUNT (BEAKER) (test 1.17 K/ L 0.30-0.82 mweo=941) EOSINOPHILS ABSOLUTE COUNT (BEAKER) (test 0.02 K/ L 0.04-0.54 tgdh=269) BASOPHILS ABSOLUTE COUNT (BEAKER) (test 0.03 K/ L 0.01-0.08 ujhe=621) IMMATURE GRANULOCYTES-RELATIVE PERCENT (BEAKER) 0 % 0-1 (test uyep=4781) COMPREHENSIVE METABOLIC [id number] 14:02:00 Test Item Value Reference Range Comments TOTAL PROTEIN (BEAKER) 7.8 gm/dL 6.0-8.3 (test ciml=272) ALBUMIN (BEAKER) (test 3.9 g/dL 3.5-5.0 kpxm=1127) ALKALINE PHOSPHATASE 62 U/L 40-150 (BEAKER) (test zpdw=934) BILIRUBIN TOTAL (BEAKER) 0.3 mg/dL 0.2-1.2 (test wxeg=699) SODIUM (BEAKER) (test 139 meq/L 136-145 jioj=959) POTASSIUM (BEAKER) (test 4.2 meq/L 3.5-5.1 ieok=259) CHLORIDE (BEAKER) (test 104 meq/L 98-107 moti=828) CO2 (BEAKER) (test 26 meq/L 22-29 ihan=761) BLOOD UREA NITROGEN 9 mg/dL 7-21 (BEAKER) (test dudw=581) CREATININE (BEAKER) (test 0.64 mg/dL 0.57-1.25 omct=683) GLUCOSE RANDOM (BEAKER) 78 mg/dL 70-105 (test rvvk=428) CALCIUM (BEAKER) (test 9.5 mg/dL 8.4-10.2 wpap=874) AST (SGOT) (BEAKER) (test 18 U/L 5-34 kyvf=857) ALT (SGPT) (BEAKER) (test 8 U/L 6-55 ycco=558) EGFR (BEAKER) (test 141 mL/min/1.73 sq ESTIMATED GFR IS NOT hfkz=2283) m ACCURATE CREATININE CLEARANCE IN PREDICTING GLOMERULAR FILTRATION RATE. ESTIMATED GFR IS NOT APPLICABLE FOR DIALYSIS PATIENTS. COMPREHENSIVE METABOLIC [id number] 06:08:00 Test Item Value Reference Range Comments TOTAL PROTEIN (BEAKER) 7.0 gm/dL 6.0-8.3 Specimen slightly (test qbkx=981) hemolyzed ALBUMIN (BEAKER) (test 3.4 g/dL 3.5-5.0 Specimen slightly gwcf=8386) hemolyzed ALKALINE PHOSPHATASE 58 U/L 40-150 (BEAKER) (test pmje=336) BILIRUBIN TOTAL (BEAKER) 0.4 mg/dL 0.2-1.2 Specimen slightly (test xdat=384) hemolyzed SODIUM (BEAKER) (test 139 meq/L 136-145 wgkt=144) POTASSIUM (BEAKER) (test 4.5 meq/L 3.5-5.1 Specimen slightly ykny=820) hemolyzed CHLORIDE (BEAKER) (test 103 meq/L 98-107 tgik=418) CO2 (BEAKER) (test 27 meq/L 22-29 rikn=558) BLOOD UREA NITROGEN 2 mg/dL 7-21 (BEAKER) (test pqgl=713) CREATININE (BEAKER) (test 0.55 mg/dL 0.57-1.25 Specimen slightly ljbz=559) hemolyzed GLUCOSE RANDOM (BEAKER) 85 mg/dL 70-105 (test xpts=425) CALCIUM (BEAKER) (test 9.3 mg/dL 8.4-10.2 hoyy=373) AST (SGOT) (BEAKER) (test 18 U/L 5-34 Specimen slightly aqeu=510) hemolyzed ALT (SGPT) (BEAKER) (test 8 U/L 6-55 Specimen slightly cbae=938) hemolyzed EGFR (BEAKER) (test 168 mL/min/1.73 sq ESTIMATED GFR IS NOT vqgu=6490) m ACCURATE CREATININE CLEARANCE IN PREDICTING GLOMERULAR FILTRATION RATE. ESTIMATED GFR IS NOT APPLICABLE FOR DIALYSIS PATIENTS. CBC (HEMOGRAM ONLY)[id number] 05:20:00 Test Item Value Reference Range Comments WHITE BLOOD CELL COUNT (BEAKER) (test scow=003) 6.4 K/ L 3.5-10.5 RED BLOOD CELL COUNT (BEAKER) (test hfjz=527) 3.84 M/ L 4.63-6.08 HEMOGLOBIN (BEAKER) (test dnum=972) 11.5 GM/DL 13.7-17.5 HEMATOCRIT (BEAKER) (test qpyg=125) 35.2 % 40.1-51.0 MEAN CORPUSCULAR VOLUME (BEAKER) (test sxdf=056) 91.7 fL 79.0-92.2 MEAN CORPUSCULAR HEMOGLOBIN (BEAKER) (test 29.9 pg 25.7-32.2 qgoy=925) MEAN CORPUSCULAR HEMOGLOBIN CONC (BEAKER) (test 32.7 GM/DL 32.3-36.5 ranv=784) RED CELL DISTRIBUTION WIDTH (BEAKER) (test 14.1 % 11.6-14.4 uvsf=254) PLATELET COUNT (BEAKER) (test flyk=533) 434 K/CU MM 150-450 MEAN PLATELET VOLUME (BEAKER) (test seex=262) 9.4 fL 9.4-12.4 NUCLEATED RED BLOOD CELLS (BEAKER) (test 0 /100 WBC 0-0 uyju=244) HEPATIC FUNCTION [id number] 11:22:00 Test Item Value Reference Range Comments TOTAL PROTEIN (BEAKER) (test gylm=244) 6.9 gm/dL 6.0-8.3 ALBUMIN (BEAKER) (test mipz=8678) 3.4 g/dL 3.5-5.0 BILIRUBIN TOTAL (BEAKER) (test jwes=790) 0.4 mg/dL 0.2-1.2 BILIRUBIN DIRECT (BEAKER) (test rstq=273) 0.2 mg/dL 0.1-0.5 ALKALINE PHOSPHATASE (BEAKER) (test jjcw=708) 65 U/L 40-150 AST (SGOT) (BEAKER) (test yxgh=186) 14 U/L 5-34 ALT (SGPT) (BEAKER) (test qjai=400) 8 U/L 6-55 CBC W/PLT COUNT & AUTO [id number] 11:16:00 Test Item Value Reference Range Comments WHITE BLOOD CELL COUNT (BEAKER) (test fqkd=276) 7.0 K/ L 3.5-10.5 RED BLOOD CELL COUNT (BEAKER) (test dful=305) 3.90 M/ L 4.63-6.08 HEMOGLOBIN (BEAKER) (test hixv=990) 11.9 GM/DL 13.7-17.5 HEMATOCRIT (BEAKER) (test yhmr=412) 35.7 % 40.1-51.0 MEAN CORPUSCULAR VOLUME (BEAKER) (test koja=720) 91.5 fL 79.0-92.2 MEAN CORPUSCULAR HEMOGLOBIN (BEAKER) (test 30.5 pg 25.7-32.2 jsxi=428) MEAN CORPUSCULAR HEMOGLOBIN CONC (BEAKER) (test 33.3 GM/DL 32.3-36.5 ovre=374) RED CELL DISTRIBUTION WIDTH (BEAKER) (test 14.0 % 11.6-14.4 hvye=199) PLATELET COUNT (BEAKER) (test glxy=450) 452 K/CU MM 150-450 MEAN PLATELET VOLUME (BEAKER) (test yamw=040) 9.0 fL 9.4-12.4 NUCLEATED RED BLOOD CELLS (BEAKER) (test 0 /100 WBC 0-0 twtm=077) NEUTROPHILS RELATIVE PERCENT (BEAKER) (test 59 % tvhi=579) LYMPHOCYTES RELATIVE PERCENT (BEAKER) (test 21 % ndag=194) MONOCYTES RELATIVE PERCENT (BEAKER) (test 8 % dkol=147) EOSINOPHILS RELATIVE PERCENT (BEAKER) (test 10 % anlo=969) BASOPHILS RELATIVE PERCENT (BEAKER) (test 1 % kfph=649) NEUTROPHILS ABSOLUTE COUNT (BEAKER) (test 4.12 K/ L 1.78-5.38 zqzl=062) LYMPHOCYTES ABSOLUTE COUNT (BEAKER) (test 1.45 K/ L 1.32-3.57 rofn=986) MONOCYTES ABSOLUTE COUNT (BEAKER) (test 0.58 K/ L 0.30-0.82 rzso=349) EOSINOPHILS ABSOLUTE COUNT (BEAKER) (test 0.70 K/ L 0.04-0.54 xjpw=380) BASOPHILS ABSOLUTE COUNT (BEAKER) (test 0.10 K/ L 0.01-0.08 jvtw=100) IMMATURE GRANULOCYTES-RELATIVE PERCENT (BEAKER) 0 % 0-1 (test yyzw=0109) BASIC METABOLIC [id number] 06:43:00 Test Item Value Reference Range Comments SODIUM (BEAKER) (test 138 meq/L 136-145 assk=349) POTASSIUM (BEAKER) (test 3.5 meq/L 3.5-5.1 jxdy=068) CHLORIDE (BEAKER) (test 100 meq/L 98-107 tumf=903) CO2 (BEAKER) (test 27 meq/L 22-29 kxae=305) BLOOD UREA NITROGEN 2 mg/dL 7-21 (BEAKER) (test yyxb=177) CREATININE (BEAKER) (test 0.53 mg/dL 0.57-1.25 hanh=905) GLUCOSE RANDOM (BEAKER) 82 mg/dL 70-105 (test awqd=913) CALCIUM (BEAKER) (test 9.0 mg/dL 8.4-10.2 ehyy=062) EGFR (BEAKER) (test 175 mL/min/1.73 sq m ESTIMATED GFR IS NOT tfya=6527) ACCURATE CREATININE CLEARANCE IN PREDICTING GLOMERULAR FILTRATION RATE. ESTIMATED GFR IS NOT APPLICABLE FOR DIALYSIS PATIENTS. BASIC METABOLIC [id number] 05:14:00 Test Item Value Reference Range Comments SODIUM (BEAKER) (test 132 meq/L 136-145 hars=271) POTASSIUM (BEAKER) (test 3.8 meq/L 3.5-5.1 wsam=361) CHLORIDE (BEAKER) (test 101 meq/L 98-107 blkw=394) CO2 (BEAKER) (test 18 meq/L 22-29 xgdi=999) BLOOD UREA NITROGEN 4 mg/dL 7-21 (BEAKER) (test crqh=101) CREATININE (BEAKER) (test 0.52 mg/dL 0.57-1.25 lbkx=994) GLUCOSE RANDOM (BEAKER) 58 mg/dL 70-105 (test upor=333) CALCIUM (BEAKER) (test 8.7 mg/dL 8.4-10.2 wozp=313) EGFR (BEAKER) (test 179 mL/min/1.73 sq m ESTIMATED GFR IS NOT ukms=8879) ACCURATE CREATININE CLEARANCE IN PREDICTING GLOMERULAR FILTRATION RATE. ESTIMATED GFR IS NOT APPLICABLE FOR DIALYSIS PATIENTS. CBC (HEMOGRAM ONLY)2017-05-15 04:57:00 Test Item Value Reference Range Comments WHITE BLOOD CELL COUNT (BEAKER) (test szzq=668) 13.4 K/ L 3.5-10.5 RED BLOOD CELL COUNT (BEAKER) (test qata=041) 3.81 M/ L 4.63-6.08 HEMOGLOBIN (BEAKER) (test jotz=299) 11.4 GM/DL 13.7-17.5 HEMATOCRIT (BEAKER) (test frro=524) 35.1 % 40.1-51.0 MEAN CORPUSCULAR VOLUME (BEAKER) (test zqii=165) 92.1 fL 79.0-92.2 MEAN CORPUSCULAR HEMOGLOBIN (BEAKER) (test 29.9 pg 25.7-32.2 dskz=539) MEAN CORPUSCULAR HEMOGLOBIN CONC (BEAKER) (test 32.5 GM/DL 32.3-36.5 cxng=083) RED CELL DISTRIBUTION WIDTH (BEAKER) (test 14.3 % 11.6-14.4 ftzm=715) PLATELET COUNT (BEAKER) (test sive=128) 502 K/CU MM 150-450 MEAN PLATELET VOLUME (BEAKER) (test nxjx=424) 9.6 fL 9.4-12.4 NUCLEATED RED BLOOD CELLS (BEAKER) (test 0 /100 WBC 0-0 syeu=190) LIPID [id number] 05:00:00 Test Item Value Reference Range Comments TRIGLYCERIDES (BEAKER) (test mwih=596) 71 mg/dL CHOLESTEROL (BEAKER) (test rapm=527) 108 mg/dL HDL CHOLESTEROL (BEAKER) (test xbez=187) 22 mg/dL LDL CHOLESTEROL CALCULATED (BEAKER) (test 72 mg/dL hoic=909) Triglyceride Reference Range: Low Risk <150 Borderline 150- 199 High Risk 200-499 Very High Risk >=500Cholesterol Reference Range: Low Risk <200 Borderline 200-239 High Risk > 240HDL Cholesterol Reference Range: Low Risk >=60 High Risk <40LDL Cholesterol Reference Range: Optimal <100 Near Optimal 100-129 Borderline 130-159 High 160-189 Very High >=190BASIC METABOLIC [id number] 05:00:00 Test Item Value Reference Range Comments SODIUM (BEAKER) (test 133 meq/L 136-145 uzdo=852) POTASSIUM (BEAKER) (test 4.1 meq/L 3.5-5.1 yvec=982) CHLORIDE (BEAKER) (test 105 meq/L 98-107 pqsz=997) CO2 (BEAKER) (test 17 meq/L 22-29 ktcs=352) BLOOD UREA NITROGEN 8 mg/dL 7-21 (BEAKER) (test atyl=436) CREATININE (BEAKER) (test 0.51 mg/dL 0.57-1.25 ioht=604) GLUCOSE RANDOM (BEAKER) 54 mg/dL 70-105 (test lhkq=202) CALCIUM (BEAKER) (test 8.4 mg/dL 8.4-10.2 zsbk=079) EGFR (BEAKER) (test 183 mL/min/1.73 sq m ESTIMATED GFR IS NOT rxjp=5808) ACCURATE CREATININE CLEARANCE IN PREDICTING GLOMERULAR FILTRATION RATE. ESTIMATED GFR IS NOT APPLICABLE FOR DIALYSIS PATIENTS. HEPATIC FUNCTION [id number] 05:00:00 Test Item Value Reference Range Comments TOTAL PROTEIN (BEAKER) (test ujzz=167) 6.3 gm/dL 6.0-8.3 ALBUMIN (BEAKER) (test tsdl=5532) 3.2 g/dL 3.5-5.0 BILIRUBIN TOTAL (BEAKER) (test lqcb=105) 0.7 mg/dL 0.2-1.2 BILIRUBIN DIRECT (BEAKER) (test ucow=297) 0.3 mg/dL 0.1-0.5 ALKALINE PHOSPHATASE (BEAKER) (test wbpp=651) 62 U/L 40-150 AST (SGOT) (BEAKER) (test nbiq=581) 13 U/L 5-34 ALT (SGPT) (BEAKER) (test duih=935) 9 U/L 6-55 [id number] 05:00:00 Test Item Value Reference Range Comments LIPASE (BEAKER) (test yyzc=944) 1007 U/L 8-78 CBC (HEMOGRAM ONLY)2017-05-14 04:39:00 Test Item Value Reference Range Comments WHITE BLOOD CELL COUNT (BEAKER) (test mszl=802) 16.6 K/ L 3.5-10.5 RED BLOOD CELL COUNT (BEAKER) (test lkub=592) 3.98 M/ L 4.63-6.08 HEMOGLOBIN (BEAKER) (test tvkp=766) 12.0 GM/DL 13.7-17.5 HEMATOCRIT (BEAKER) (test vboa=083) 37.2 % 40.1-51.0 MEAN CORPUSCULAR VOLUME (BEAKER) (test gwnc=710) 93.5 fL 79.0-92.2 MEAN CORPUSCULAR HEMOGLOBIN (BEAKER) (test 30.2 pg 25.7-32.2 oxtk=177) MEAN CORPUSCULAR HEMOGLOBIN CONC (BEAKER) (test 32.3 GM/DL 32.3-36.5 dtyd=026) RED CELL DISTRIBUTION WIDTH (BEAKER) (test 14.5 % 11.6-14.4 rirg=794) PLATELET COUNT (BEAKER) (test zpam=538) 527 K/CU MM 150-450 MEAN PLATELET VOLUME (BEAKER) (test kqjw=783) 9.5 fL 9.4-12.4 NUCLEATED RED BLOOD CELLS (BEAKER) (test 0 /100 WBC 0-0 abfj=807) MR, ABDOMEN, [id number] 12:25:00FINAL REPORT MRI of the abdomen, MRCP. [...] biliary dilatation or choledocholithiasis. Signed: [facility] Verified Date/Time: 03/13/2017 12:25:41 Reading Location: [facility] C0X [facility] Reading Room Electronically signed by: KIKO VEE M.D. on 12:25 [facility] MET[facility] [id number] 05:05:00 Test Item Value Reference Range Comments SODIUM (BEAKER) (test 139 meq/L 136-145 pgew=197) POTASSIUM (BEAKER) (test 3.7 meq/L 3.5-5.1 lebz=056) CHLORIDE (BEAKER) (test 108 meq/L 98-107 jazm=793) CO2 (BEAKER) (test 22 meq/L 22-29 iqok=356) BLOOD UREA NITROGEN 4 mg/dL 7-21 (BEAKER) (test zwgy=429) CREATININE (BEAKER) (test 0.58 mg/dL 0.57-1.25 ilpi=477) GLUCOSE RANDOM (BEAKER) 95 mg/dL 70-105 (test myjm=373) CALCIUM (BEAKER) (test 8.5 mg/dL 8.4-10.2 yqfi=176) EGFR (BEAKER) (test 158 mL/min/1.73 sq m ESTIMATED GFR IS NOT iaqx=1505) ACCURATE CREATININE CLEARANCE IN PREDICTING GLOMERULAR FILTRATION RATE. ESTIMATED GFR IS NOT APPLICABLE FOR DIALYSIS PATIENTS. CBC W/PLT COUNT & AUTO [id number] 04:49:00 Test Item Value Reference Range Comments WHITE BLOOD CELL COUNT (BEAKER) (test nqdf=077) 6.3 K/ L 3.5-10.5 RED BLOOD CELL COUNT (BEAKER) (test teqs=158) 4.32 M/ L 4.63-6.08 HEMOGLOBIN (BEAKER) (test ozey=756) 13.7 GM/DL 13.7-17.5 HEMATOCRIT (BEAKER) (test ebhh=661) 40.3 % 40.1-51.0 MEAN CORPUSCULAR VOLUME (BEAKER) (test tbpq=502) 93.3 fL 79.0-92.2 MEAN CORPUSCULAR HEMOGLOBIN (BEAKER) (test 31.7 pg 25.7-32.2 mznn=036) MEAN CORPUSCULAR HEMOGLOBIN CONC (BEAKER) (test 34.0 GM/DL 32.3-36.5 rnnr=325) RED CELL DISTRIBUTION WIDTH (BEAKER) (test 11.9 % 11.6-14.4 cdac=163) PLATELET COUNT (BEAKER) (test whik=690) 286 K/CU MM 150-450 MEAN PLATELET VOLUME (BEAKER) (test sfeo=077) 9.4 fL 9.4-12.4 NUCLEATED RED BLOOD CELLS (BEAKER) (test 0 /100 WBC 0-0 mtxr=613) NEUTROPHILS RELATIVE PERCENT (BEAKER) (test 51 % ckzx=427) LYMPHOCYTES RELATIVE PERCENT (BEAKER) (test 31 % vzxd=799) MONOCYTES RELATIVE PERCENT (BEAKER) (test 11 % mfur=477) EOSINOPHILS RELATIVE PERCENT (BEAKER) (test 6 % myye=028) BASOPHILS RELATIVE PERCENT (BEAKER) (test 1 % qdzb=169) NEUTROPHILS ABSOLUTE COUNT (BEAKER) (test 3.21 K/ L 1.78-5.38 llkz=825) LYMPHOCYTES ABSOLUTE COUNT (BEAKER) (test 1.91 K/ L 1.32-3.57 prhc=654) MONOCYTES ABSOLUTE COUNT (BEAKER) (test 0.68 K/ L 0.30-0.82 kszg=953) EOSINOPHILS ABSOLUTE COUNT (BEAKER) (test 0.40 K/ L 0.04-0.54 kxpw=302) BASOPHILS ABSOLUTE COUNT (BEAKER) (test 0.04 K/ L 0.01-0.08 tcpu=779) IMMATURE GRANULOCYTES-RELATIVE PERCENT (BEAKER) 1 % 0-1 (test dhqs=8944) CBC W/PLT COUNT & AUTO [id number] 04:52:00 Test Item Value Reference Range Comments WHITE BLOOD CELL COUNT (BEAKER) (test ezrp=575) 6.2 K/ L 3.5-10.5 RED BLOOD CELL COUNT (BEAKER) (test jfvf=419) 4.31 M/ L 4.63-6.08 HEMOGLOBIN (BEAKER) (test gdiu=020) 13.7 GM/DL 13.7-17.5 HEMATOCRIT (BEAKER) (test lbkv=793) 41.1 % 40.1-51.0 MEAN CORPUSCULAR VOLUME (BEAKER) (test vxzp=942) 95.4 fL 79.0-92.2 MEAN CORPUSCULAR HEMOGLOBIN (BEAKER) (test 31.8 pg 25.7-32.2 jexd=552) MEAN CORPUSCULAR HEMOGLOBIN CONC (BEAKER) (test 33.3 GM/DL 32.3-36.5 ngux=484) RED CELL DISTRIBUTION WIDTH (BEAKER) (test 12.1 % 11.6-14.4 mjbg=338) PLATELET COUNT (BEAKER) (test ngqk=255) 295 K/CU MM 150-450 MEAN PLATELET VOLUME (BEAKER) (test yisy=911) 9.5 fL 9.4-12.4 NUCLEATED RED BLOOD CELLS (BEAKER) (test 0 /100 WBC 0-0 phgh=303) NEUTROPHILS RELATIVE PERCENT (BEAKER) (test 51 % iher=285) LYMPHOCYTES RELATIVE PERCENT (BEAKER) (test 31 % ekux=795) MONOCYTES RELATIVE PERCENT (BEAKER) (test 11 % jrzi=699) EOSINOPHILS RELATIVE PERCENT (BEAKER) (test 7 % roop=255) BASOPHILS RELATIVE PERCENT (BEAKER) (test 1 % wlbr=722) NEUTROPHILS ABSOLUTE COUNT (BEAKER) (test 3.17 K/ L 1.78-5.38 fjce=985) LYMPHOCYTES ABSOLUTE COUNT (BEAKER) (test 1.89 K/ L 1.32-3.57 xqpi=760) MONOCYTES ABSOLUTE COUNT (BEAKER) (test 0.65 K/ L 0.30-0.82 sqdk=040) EOSINOPHILS ABSOLUTE COUNT (BEAKER) (test 0.41 K/ L 0.04-0.54 blof=860) BASOPHILS ABSOLUTE COUNT (BEAKER) (test 0.05 K/ L 0.01-0.08 avrh=111) IMMATURE GRANULOCYTES-RELATIVE PERCENT (BEAKER) 1 % 0-1 (test eury=8943) COMPREHENSIVE METABOLIC [id number] 11:20:00 Test Item Value Reference Range Comments TOTAL PROTEIN (BEAKER) 7.2 gm/dL 6.0-8.3 (test bgpe=815) ALBUMIN (BEAKER) (test 3.7 g/dL 3.5-5.0 rhjs=2887) ALKALINE PHOSPHATASE 73 U/L 40-150 (BEAKER) (test totl=691) BILIRUBIN TOTAL (BEAKER) 0.6 mg/dL 0.2-1.2 (test whvk=561) SODIUM (BEAKER) (test 135 meq/L 136-145 bzqt=880) POTASSIUM (BEAKER) (test 5.0 meq/L 3.5-5.1 vtam=495) CHLORIDE (BEAKER) (test 109 meq/L 98-107 jaud=589) CO2 (BEAKER) (test 14 meq/L 22-29 fnai=973) BLOOD UREA NITROGEN 6 mg/dL 7-21 (BEAKER) (test cnml=181) CREATININE (BEAKER) (test 0.62 mg/dL 0.57-1.25 toeu=122) GLUCOSE RANDOM (BEAKER) 45 mg/dL 70-105 (test qyog=727) CALCIUM (BEAKER) (test 8.6 mg/dL 8.4-10.2 cgod=865) AST (SGOT) (BEAKER) (test 17 U/L 5-34 jfjz=906) ALT (SGPT) (BEAKER) (test 14 U/L 6-55 yrpb=536) EGFR (BEAKER) (test 146 mL/min/1.73 sq ESTIMATED GFR IS NOT krpt=4325) m ACCURATE CREATININE CLEARANCE IN PREDICTING GLOMERULAR FILTRATION RATE. ESTIMATED GFR IS NOT APPLICABLE FOR DIALYSIS PATIENTS. CBC W/PLT COUNT & AUTO [id number] 09:54:00 Test Item Value Reference Range Comments WHITE BLOOD CELL COUNT (BEAKER) (test hylw=763) 7.4 K/ L 3.5-10.5 RED BLOOD CELL COUNT (BEAKER) (test vmro=596) 4.32 M/ L 4.63-6.08 HEMOGLOBIN (BEAKER) (test fvco=736) 13.6 GM/DL 13.7-17.5 HEMATOCRIT (BEAKER) (test jkkb=707) 41.8 % 40.1-51.0 MEAN CORPUSCULAR VOLUME (BEAKER) (test utow=093) 96.8 fL 79.0-92.2 MEAN CORPUSCULAR HEMOGLOBIN (BEAKER) (test 31.5 pg 25.7-32.2 cxmi=014) MEAN CORPUSCULAR HEMOGLOBIN CONC (BEAKER) (test 32.5 GM/DL 32.3-36.5 glcy=057) RED CELL DISTRIBUTION WIDTH (BEAKER) (test 12.1 % 11.6-14.4 erll=650) PLATELET COUNT (BEAKER) (test rbku=793) 277 K/CU MM 150-450 MEAN PLATELET VOLUME (BEAKER) (test cabi=292) 9.7 fL 9.4-12.4 NUCLEATED RED BLOOD CELLS (BEAKER) (test 0 /100 WBC 0-0 hsfv=576) NEUTROPHILS RELATIVE PERCENT (BEAKER) (test 57 % nvvt=008) LYMPHOCYTES RELATIVE PERCENT (BEAKER) (test 29 % loza=008) MONOCYTES RELATIVE PERCENT (BEAKER) (test 8 % ftmd=507) EOSINOPHILS RELATIVE PERCENT (BEAKER) (test 5 % kaam=208) BASOPHILS RELATIVE PERCENT (BEAKER) (test 1 % flic=873) NEUTROPHILS ABSOLUTE COUNT (BEAKER) (test 4.23 K/ L 1.78-5.38 dhtm=712) LYMPHOCYTES ABSOLUTE COUNT (BEAKER) (test 2.10 K/ L 1.32-3.57 gjno=532) MONOCYTES ABSOLUTE COUNT (BEAKER) (test 0.57 K/ L 0.30-0.82 anys=709) EOSINOPHILS ABSOLUTE COUNT (BEAKER) (test 0.38 K/ L 0.04-0.54 redt=261) BASOPHILS ABSOLUTE COUNT (BEAKER) (test 0.05 K/ L 0.01-0.08 qntb=387) IMMATURE GRANULOCYTES-RELATIVE PERCENT (BEAKER) 1 % 0-1 (test qxfr=3661) (MANUAL DIFFERENTIAL)2017-03-11 09:54:00 Test Item Value Reference Range Comments TOTAL COUNTED (BEAKER) (test scmn=2812) WBC MORPHOLOGY (BEAKER) (test utiv=550) Normal PLT MORPHOLOGY (BEAKER) (test ther=351) Normal RBC MORPHOLOGY (BEAKER) (test jjdj=848) Normal CBC W/PLT COUNT & AUTO [id number] 09:09:00 Test Item Value Reference Range Comments WHITE BLOOD CELL COUNT (BEAKER) (test safo=563) 8.9 K/ L 3.5-10.5 RED BLOOD CELL COUNT (BEAKER) (test lchr=963) 4.25 M/ L 4.63-6.08 HEMOGLOBIN (BEAKER) (test xyhm=162) 13.6 GM/DL 13.7-17.5 HEMATOCRIT (BEAKER) (test nbkn=169) 40.7 % 40.1-51.0 MEAN CORPUSCULAR VOLUME (BEAKER) (test xcdy=790) 95.8 fL 79.0-92.2 MEAN CORPUSCULAR HEMOGLOBIN (BEAKER) (test 32.0 pg 25.7-32.2 vxph=691) MEAN CORPUSCULAR HEMOGLOBIN CONC (BEAKER) (test 33.4 GM/DL 32.3-36.5 yxnu=729) RED CELL DISTRIBUTION WIDTH (BEAKER) (test 12.1 % 11.6-14.4 vduj=888) PLATELET COUNT (BEAKER) (test beag=022) 274 K/CU MM 150-450 MEAN PLATELET VOLUME (BEAKER) (test memc=334) 9.8 fL 9.4-12.4 NUCLEATED RED BLOOD CELLS (BEAKER) (test 0 /100 WBC 0-0 dldk=992) NEUTROPHILS RELATIVE PERCENT (BEAKER) (test 62 % ibzg=612) LYMPHOCYTES RELATIVE PERCENT (BEAKER) (test 24 % cbct=713) MONOCYTES RELATIVE PERCENT (BEAKER) (test 7 % ionx=451) EOSINOPHILS RELATIVE PERCENT (BEAKER) (test 5 % fcoo=992) BASOPHILS RELATIVE PERCENT (BEAKER) (test 1 % gvvi=388) NEUTROPHILS ABSOLUTE COUNT (BEAKER) (test 5.55 K/ L 1.78-5.38 osof=830) LYMPHOCYTES ABSOLUTE COUNT (BEAKER) (test 2.14 K/ L 1.32-3.57 jxzm=681) MONOCYTES ABSOLUTE COUNT (BEAKER) (test 0.64 K/ L 0.30-0.82 pvoe=729) EOSINOPHILS ABSOLUTE COUNT (BEAKER) (test 0.48 K/ L 0.04-0.54 hxkc=615) BASOPHILS ABSOLUTE COUNT (BEAKER) (test 0.07 K/ L 0.01-0.08 bgwo=410) IMMATURE GRANULOCYTES-RELATIVE PERCENT (BEAKER) 0 % 0-1 (test wswh=3093) (MANUAL DIFFERENTIAL)2017-03-10 09:09:00 Test Item Value Reference Range Comments TOTAL COUNTED (BEAKER) (test hpmm=6802) WBC MORPHOLOGY (BEAKER) (test heak=944) Normal PLT MORPHOLOGY (BEAKER) (test qgli=651) Normal RBC MORPHOLOGY (BEAKER) (test guej=110) Normal COMPREHENSIVE METABOLIC [id number] 07:30:00 Test Item Value Reference Range Comments TOTAL PROTEIN (BEAKER) 6.8 gm/dL 6.0-8.3 (test fyyn=125) ALBUMIN (BEAKER) (test 3.6 g/dL 3.5-5.0 sfey=7564) ALKALINE PHOSPHATASE 77 U/L 40-150 (BEAKER) (test ifjz=657) BILIRUBIN TOTAL (BEAKER) 0.6 mg/dL 0.2-1.2 (test eeao=820) SODIUM (BEAKER) (test 136 meq/L 136-145 gwga=178) POTASSIUM (BEAKER) (test 4.3 meq/L 3.5-5.1 jrwu=954) CHLORIDE (BEAKER) (test 105 meq/L 98-107 kvkg=545) CO2 (BEAKER) (test 19 meq/L 22-29 zcje=252) BLOOD UREA NITROGEN 6 mg/dL 7-21 (BEAKER) (test kbky=417) CREATININE (BEAKER) (test 0.57 mg/dL 0.57-1.25 jfnk=844) GLUCOSE RANDOM (BEAKER) 52 mg/dL 70-105 (test hcbw=030) CALCIUM (BEAKER) (test 8.2 mg/dL 8.4-10.2 pctg=313) AST (SGOT) (BEAKER) (test 17 U/L 5-34 kxdf=054) ALT (SGPT) (BEAKER) (test 14 U/L 6-55 priw=739) EGFR (BEAKER) (test 161 mL/min/1.73 sq ESTIMATED GFR IS NOT uvur=6962) m ACCURATE CREATININE CLEARANCE IN PREDICTING GLOMERULAR FILTRATION RATE. ESTIMATED GFR IS NOT APPLICABLE FOR DIALYSIS PATIENTS. CBC W/PLT COUNT & AUTO [id number] 10:49:00 Test Item Value Reference Range Comments WHITE BLOOD CELL COUNT (BEAKER) (test pjsf=348) 6.9 K/ L 3.5-10.5 RED BLOOD CELL COUNT (BEAKER) (test ssag=400) 3.83 M/ L 4.63-6.08 HEMOGLOBIN (BEAKER) (test iiwl=880) 12.5 GM/DL 13.7-17.5 HEMATOCRIT (BEAKER) (test zygv=496) 36.7 % 40.1-51.0 MEAN CORPUSCULAR VOLUME (BEAKER) (test gjbz=024) 95.8 fL 79.0-92.2 MEAN CORPUSCULAR HEMOGLOBIN (BEAKER) (test 32.6 pg 25.7-32.2 xaku=843) MEAN CORPUSCULAR HEMOGLOBIN CONC (BEAKER) (test 34.1 GM/DL 32.3-36.5 wyna=069) RED CELL DISTRIBUTION WIDTH (BEAKER) (test 12.4 % 11.6-14.4 ydjd=321) PLATELET COUNT (BEAKER) (test hbhb=651) 267 K/CU MM 150-450 MEAN PLATELET VOLUME (BEAKER) (test ilxh=051) 9.7 fL 9.4-12.4 NUCLEATED RED BLOOD CELLS (BEAKER) (test 0 /100 WBC 0-0 nubh=241) NEUTROPHILS RELATIVE PERCENT (BEAKER) (test 60 % tbrl=137) LYMPHOCYTES RELATIVE PERCENT (BEAKER) (test 26 % hipk=525) MONOCYTES RELATIVE PERCENT (BEAKER) (test 7 % dssn=180) EOSINOPHILS RELATIVE PERCENT (BEAKER) (test 6 % qcmz=073) BASOPHILS RELATIVE PERCENT (BEAKER) (test 1 % cbob=873) NEUTROPHILS ABSOLUTE COUNT (BEAKER) (test 4.15 K/ L 1.78-5.38 ptej=126) LYMPHOCYTES ABSOLUTE COUNT (BEAKER) (test 1.82 K/ L 1.32-3.57 vzue=651) MONOCYTES ABSOLUTE COUNT (BEAKER) (test 0.47 K/ L 0.30-0.82 cdww=454) EOSINOPHILS ABSOLUTE COUNT (BEAKER) (test 0.38 K/ L 0.04-0.54 rvlc=705) BASOPHILS ABSOLUTE COUNT (BEAKER) (test 0.04 K/ L 0.01-0.08 ayld=280) COMPREHENSIVE METABOLIC [id number] 10:45:00 Test Item Value Reference Range Comments TOTAL PROTEIN (BEAKER) 6.2 gm/dL 6.0-8.3 (test jjxw=178) ALBUMIN (BEAKER) (test 3.3 g/dL 3.5-5.0 ezbv=8862) ALKALINE PHOSPHATASE 70 U/L 40-150 (BEAKER) (test ttwu=675) BILIRUBIN TOTAL (BEAKER) 0.4 mg/dL 0.2-1.2 (test vpcr=542) SODIUM (BEAKER) (test 138 meq/L 136-145 knss=169) POTASSIUM (BEAKER) (test 3.5 meq/L 3.5-5.1 wfdr=211) CHLORIDE (BEAKER) (test 109 meq/L 98-107 ndzo=203) CO2 (BEAKER) (test 23 meq/L 22-29 xbfs=533) BLOOD UREA NITROGEN 5 mg/dL 7-21 (BEAKER) (test syuf=960) CREATININE (BEAKER) (test 0.54 mg/dL 0.57-1.25 emci=580) GLUCOSE RANDOM (BEAKER) 77 mg/dL 70-105 (test eudh=677) CALCIUM (BEAKER) (test 7.6 mg/dL 8.4-10.2 parm=900) AST (SGOT) (BEAKER) (test 18 U/L 5-34 yvik=814) ALT (SGPT) (BEAKER) (test 15 U/L 6-55 eutf=017) EGFR (BEAKER) (test 171 mL/min/1.73 sq ESTIMATED GFR IS NOT ltra=7045) m ACCURATE CREATININE CLEARANCE IN PREDICTING GLOMERULAR FILTRATION RATE. ESTIMATED GFR IS NOT APPLICABLE FOR DIALYSIS PATIENTS. [id number] 10:29:00 Test Item Value Reference Range Comments TRIGLYCERIDES (BEAKER) (test ivnm=314) 58 mg/dL TRIGLYCERIDE REFERENCE RANGELow Risk <150Borderline Risk 150-199High Risk 200-499Very High Risk>=[id number] 10:29:00 Test Item Value Reference Range Comments MAGNESIUM (BEAKER) (test oowu=722) 1.4 mg/dL 1.6-2.6 [id number] 10:29:00 Test Item Value Reference Range Comments LIPASE (BEAKER) (test zizd=622) 536 U/L 8-78 PROTHROMBIN TIME/[id number] 10:22:00 Test Item Value Reference Range Comments PROTIME (BEAKER) (test tgjo=663) 14.3 seconds 11.7-14.7 INR (BEAKER) (test wvwo=387) 1.1 <=5.9 RECOMMENDED COUMADIN/WARFARIN INR THERAPY RANGESSTANDARD DOSE: 2.0 - 3.0 Includes: PROPHYLAXIS forvenous thrombosis, systemic embolization; TREATMENT for venous thrombosis and/or pulmonary embolus.HIGH RISK: Target INR is 2.5-3.5 for patients with mechanical heart valves.
--- OUTSIDE RECORDS SUMMARY | 2018-06-04 12:11 | XMS REPORT ---
[...] End Status Dosage System Date Date Apixaban [facility] [address]-30 2.5 MG Orally Active not defined Tramadol HCl [facility] [id number] 50 MG Orally Active 1 tablet every 6 hrs as needed Results No Known Results Summary Purpose eClinicalWorks Submission
[2018-06-04] MEDS ORDERED: NA CHLORIDE 0.9% 1,000 ML ONE (13:07)
[2018-06-04] MEDS ORDERED: ONDANSETRON 4 MG/2 ML VIAL ONE (13:07)
[2018-06-04] MEDS ORDERED: FENTANYL CITR 100 MCG/2 ML ONE (13:07)
[2018-06-04 13:18] LABS: Absolute Lymphocytes (CBC) 1.5 K/uL (0.7-4.9); Absolute Monocytes 0.7 K/uL (0.1-1.3); Absolute Neutrophil 6.1 K/uL (1.8-8.0); Basophils % 0.3 % (0-1.3); Eosinophils % 0.3 % (0-4.4); Hematocrit 46.5 % (39.6-49.0); Lymphocytes % 18.1 % (15.3-44.8); MPV 7.8 fL (7.6-11.3); Monocytes % 8.3 % (3.3-12.3); RBC Red Blood Cell Count 4.81 M/uL (4.33-5.43)
[2018-06-04 13:33] LABS: ALT/SGPT 26 U/L (12-78); AST/SGOT 27 U/L (15-37); Albumin 4.8 g/dL (3.4-5.0); Alkaline Phosphatase 87 U/L (45-117); BUN Blood Urea Nitrogen 2 mg/dL (7-18); Bicarbonate 30 mmol/L (21-32); Bilirubin Direct 0.2 mg/dL (0-0.2); Bilirubin Total 0.7 mg/dL (0.2-1.0); Glucose Level 105 mg/dL (74-106); Lipase 82 U/L (73-393); Potassium 3.2 mmol/L (3.5-5.1); Protein, Total 8.7 g/dL (6.4-8.2); Sodium Level 133 mmol/L (136-145)
[2018-06-04 16:44] LABS: Urine Blood NEGATIVE (NEG); Urine Glucose NEGATIVE (NEG); Urine Protein NEGATIVE (NEG); Urine pH 8.5 (5.0-7.0)
--- NOTE | 2018-06-04 16:51 | ER ---
Nurse's Notes [facility] Name: Ankit Rosales Age: 37 yrs Sex: Male : 1980 Arrival Date: 06/04/2018 Time: 12:06 Bed 19 Private MD: Diagnosis: Alcohol-induced chronic pancreatitis Presentation: 06/04 12:15 Presenting complaint: RUQ pain and N/V/D since 0100 today. Not tolerating fluids. Hx of hb pancreatitis. Transition of care: patient was not received from another setting of care. Onset of symptoms was June 04, 2018. Risk Assessment: Do you want to hurt yourself or someone else? Patient reports no desire to harm self or others. Care prior to arrival: None. 12:15 Method Of Arrival: Ambulatory hb 12:15 Acuity: KRAIG 3 hb 13:30 Initial Sepsis Screen: Does the patient meet any 2 criteria? No. Patient's initial bp sepsis screen is negative. Does the patient have a suspected source of infection? No. Patient's initial sepsis screen is negative. Historical: - Allergies: 12:17 NKDA; hb - PMHx: 12:17 Cirrhosis; etoh abuse; GALLSTONES; left leg DVT; Pancreatitis; hb - PSHx: 12:17 TUBE COILS; hb - Immunization history:: Adult Immunizations up to date. - Social history:: Smoking status: Patient uses tobacco products, smokes one pack cigarettes per day. - Ebola Screening: : No symptoms or risks identified at this time. Screenin:00 Abuse screen: Denies threats or abuse. Denies injuries from another. Nutritional bp screening: No deficits noted. Tuberculosis screening: No symptoms or risk factors identified. Fall Risk None identified. Assessment: 13:00 General: Appears in no apparent distress. uncomfortable, Behavior is cooperative, bp appropriate for age, anxious. Pain: Complains of pain in right upper quadrant. Neuro: Level of Consciousness is awake, alert, obeys commands, Oriented to person, place, time, situation, Appropriate for age. Cardiovascular: No deficits noted. Respiratory: Airway is patent Respiratory effort is even, unlabored, Respiratory pattern is regular, symmetrical. GI: Bowel sounds present X 4 quads. Abd is soft X 4 quads. : No signs and/or symptoms were reported regarding the genitourinary system. EENT: No deficits noted. Derm: No deficits noted. Musculoskeletal: Circulation, motion, and sensation intact. Range of motion: intact in all extremities. 14:07 Reassessment: Patient reports that his pain has not improved. Notified Gerson Martinez NP. aj1 No new orders received at this time. 15:06 Reassessment: ALL CURRENT ORDERS COMPLETED, DISPO PENDING. bp 16:24 Reassessment: Reassessment: ALL CURRENT ORDERS COMPLETED, DISPO PENDING. bp 17:00 Reassessment: PT D/C HOME AMBULATORY WITH FAMILY, DX WITH ALCOHOL INDUCED CHRONIC bp PANCREATITIS. Vital Signs: 12:16 BP 137 / 97; Pulse 115; Resp 18; Temp 98.5; Pulse Ox 96% on R/A; Pain 10/10; hb 14:30 BP 136 / 98; Pulse 100; Resp 14; Pulse Ox 99% ; bp 15:08 BP 131 / 91; Pulse 96; Resp 18; Pulse Ox 98% ; mh5 16:23 BP 129 / 96; Pulse 92; Resp 16; Pulse Ox 98% ; bp ED Course: 12:06 Patient arrived in ED. rg4 12:16 Triage completed. hb 12:17 Arm band placed on. hb 12:47 Jluis Martinez NP is PHCP. pm1 12:47 Jaxon Rothman MD is Attending Physician. pm1 12:51 Sla Pradhan, MIRYAM is Primary Nurse. bp 13:00 Patient has correct armband on for positive identification. Placed in gown. Bed in low bp position. Call light in reach. Side rails up X2. Adult w/ patient. 13:05 Inserted saline lock: 20 gauge in right forearm, using aseptic technique. Blood bp collected. 17:02 No provider procedures requiring assistance completed. IV discontinued, intact, bp bleeding controlled, No redness/swelling at site. Pressure dressing applied. Administered Medications: 13:05 Drug: NS 0.9% 1000 ml Route: IV; Rate: 1 bolus; Site: right forearm; bp 13:05 Drug: fentaNYL (PF) 50 mcg Route: IVP; Site: right antecubital; bp 14:41 Follow up: Response: Pain is decreased bp 13:05 Drug: Zofran 4 mg Route: IVP; Site: right antecubital; bp 14:41 Follow up: Response: No adverse reaction bp 15:05 Drug: fentaNYL (PF) 50 mcg Route: IVP; Site: right antecubital; bp 15:18 Follow up: Response: Pain is decreased bp 16:53 Drug: morphine 4 mg Route: IVP; Site: right forearm; bp 16:53 Follow up: Response: Pain is decreased bp Outcome: 16:51 Discharge ordered by . pm1 17:01 Discharged to home ambulatory, with family. bp 17:01 Condition: stable 17:01 Discharge instructions given to patient, Instructed on discharge instructions, follow up and referral plans. medication usage, Demonstrated understanding of instructions, follow-up care, medications, Prescriptions given X 2. 17:03 Patient left the ED. bp Signatures: Neli Figueroa RN RN aj1 Jluis Martinez, MK COMMUNITY SERVICE MANAGER pm1 Suzanne Barnes RN RN hb Garcia, Rubi rg4 Martinez, Maria [facility] Sal Pradhan RN RN bp
--- NOTE | 2018-06-04 16:51 | EDPHYS ---
Physician Documentation [facility] Name: Ankit Rosales Age: 37 yrs Sex: Male : 1980 Arrival Date: 06/04/2018 Time: 12:06 Bed 19 Private MD: ED Physician Jaxon Rothman HPI: 06/04 16:46 This 37 yrs old Male presents to ER via Ambulatory with complaints of pm1 Abdominal Pain. 16:46 The patient presents with abdominal pain in the upper abdomen. pm1 16:46 Onset: The symptoms/episode began/occurred today. The symptoms do not radiate. pm1 Associated signs and symptoms: Pertinent positives: nausea and vomiting, Pertinent negatives: diarrhea, dysuria, fever. The symptoms are described as sharp. Modifying factors: The symptoms are alleviated by nothing, the symptoms are aggravated by alcohol. Severity of pain: in the emergency department the pain is actually worse. The patient has experienced similar episodes in the past, multiple times. The patient has not recently seen a physician. Patient drinking alcohol yesterday. Historical: - Allergies: 12:17 NKDA; hb - PMHx: 12:17 Cirrhosis; etoh abuse; GALLSTONES; left leg DVT; Pancreatitis; hb - PSHx: 12:17 TUBE COILS; hb - Immunization history:: Adult Immunizations up to date. - Social history:: Smoking status: Patient uses tobacco products, smokes one pack cigarettes per day. - Ebola Screening: : No symptoms or risks identified at this time. ROS: 16:46 Constitutional: Negative for fever, chills, and weight loss, Eyes: Negative for injury, pm1 pain, redness, and discharge, ENT: Negative for injury, pain, and discharge, Neck: Negative for injury, pain, and swelling, Cardiovascular: Negative for chest pain, palpitations, and edema, Respiratory: Negative for shortness of breath, cough, wheezing, and pleuritic chest pain, Back: Negative for injury and pain. 16:46 : Negative for injury, bleeding, discharge, and swelling, MS/Extremity: Negative for injury and deformity, Skin: Negative for injury, rash, and discoloration, Neuro: Negative for headache, weakness, numbness, tingling, and seizure. 16:46 Abdomen/GI: Positive for abdominal pain, nausea and vomiting, Negative for diarrhea, constipation, hematemesis, black/tarry stool, rectal bleeding. Exam: 16:46 Constitutional: This is a well developed, well nourished patient who is awake, alert, pm1 and in no acute distress. Head/Face: Normocephalic, atraumatic. Eyes: Pupils equal round and reactive to light, extra-ocular motions intact. Lids and lashes normal. Conjunctiva and sclera are non-icteric and not injected. Cornea within normal limits. Periorbital areas with no swelling, redness, or edema. ENT: Nares patent. No nasal discharge, no septal abnormalities noted. Tympanic membranes are normal and external auditory canals are clear. Oropharynx with no redness, swelling, or masses, exudates, or evidence of obstruction, uvula midline. Mucous membranes moist. Neck: Trachea midline, no thyromegaly or masses palpated, and no cervical lymphadenopathy. Supple, full range of motion without nuchal rigidity, or vertebral point tenderness. No Meningismus. Chest/axilla: Normal chest wall appearance and motion. Nontender with no deformity. No lesions are appreciated. Cardiovascular: Regular rate and rhythm with a normal S1 and S2. No gallops, murmurs, or rubs. Normal PMI, no JVD. No pulse deficits. Respiratory: Lungs have equal breath sounds bilaterally, clear to auscultation and percussion. No rales, rhonchi or wheezes noted. No increased work of breathing, no retractions or nasal flaring. 16:46 Back: No spinal tenderness. No costovertebral tenderness. Full range of motion. Skin: Warm, dry with normal turgor. Normal color with no rashes, no lesions, and no evidence of cellulitis. MS/ Extremity: Pulses equal, no cyanosis. Neurovascular intact. Full, normal range of motion. 16:46 Abdomen/GI: Inspection: abdomen appears normal, Bowel sounds: normal, Palpation: soft, mild abdominal tenderness, in the epigastric area, mass, is not appreciated, rebound tenderness, is not appreciated. 16:46 Neuro: Orientation: is normal, Motor: is normal, moves all fours. Vital Signs: 12:16 BP 137 / 97; Pulse 115; Resp 18; Temp 98.5; Pulse Ox 96% on R/A; Pain 10/10; hb 14:30 BP 136 / 98; Pulse 100; Resp 14; Pulse Ox 99% ; bp 15:08 BP 131 / 91; Pulse 96; Resp 18; Pulse Ox 98% ; mh5 16:23 BP 129 / 96; Pulse 92; Resp 16; Pulse Ox 98% ; bp MDM: 12:48 Patient medically screened. pm1 16:27 Data reviewed: vital signs. Data interpreted: Pulse oximetry: on room air is 98 %. pm1 Interpretation: normal. Counseling: I had a detailed discussion with the patient and/or guardian regarding: the historical points, exam findings, and any diagnostic results supporting the discharge/admit diagnosis, lab results, the need for outpatient follow up, to return to the emergency department if symptoms worsen or persist or if there are any questions or concerns that arise at home. 06/04 12:49 Order name: Basic Metabolic Panel; Complete Time: 14:54 pm1 06/04 12:49 Order name: CBC with Diff; Complete Time: 14:54 pm1 06/04 12:49 Order name: Creatinine for Radiology; Complete Time: 14:54 pm1 06/04 12:49 Order name: Hepatic Function; Complete Time: 14:54 pm1 06/04 12:49 Order name: Lipase; Complete Time: 14:54 pm1 06/04 12:49 Order name: ETOH Level; Complete Time: 14:54 pm1 06/04 12:49 Order name: IV Saline Lock; Complete Time: 13:12 pm1 06/04 12:49 Order name: Labs collected and sent; Complete Time: 13:12 pm1 06/04 15:04 Order name: Urine Dipstick--Ancillary (enter results); Complete Time: 16:46 bd 06/04 12:49 Order name: Urine Dipstick-Ancillary (obtain specimen); Complete Time: 15:05 pm1 Administered Medications: 13:05 Drug: NS 0.9% 1000 ml Route: IV; Rate: 1 bolus; Site: right forearm; bp 13:05 Drug: fentaNYL (PF) 50 mcg Route: IVP; Site: right antecubital; bp 14:41 Follow up: Response: Pain is decreased bp 13:05 Drug: Zofran 4 mg Route: IVP; Site: right antecubital; bp 14:41 Follow up: Response: No adverse reaction bp 15:05 Drug: fentaNYL (PF) 50 mcg Route: IVP; Site: right antecubital; bp 15:18 Follow up: Response: Pain is decreased bp 16:53 Drug: morphine 4 mg Route: IVP; Site: right forearm; bp 16:53 Follow up: Response: Pain is decreased bp Disposition: 06/05 07:03 Co-signature as Attending Physician, Jaxon Rothman MD I agree with the assessment and kdr plan of care. Disposition: 06/04/18 16:51 Discharged to Home. Impression: Alcohol-induced chronic pancreatitis. - Condition is Stable. - Discharge Instructions: Alcohol Use Disorder, Alcohol Abuse and Nutrition, Chronic Pancreatitis. - Prescriptions for Tylenol- Codeine #3 300-30 mg Oral Tablet - take 2 tablets by ORAL route every 6 hours As needed; 20 tablet. Zofran 4 mg Oral Tablet - take 1 tablet by ORAL route every 12 hours As needed; 20 tablet. - Work release form, Medication Reconciliation Form, Thank You Letter, Antibiotic Education, Prescription Opioid Use form. - Follow up: Emergency Department; When: As needed; Reason: Worsening of condition. Follow up: Private Physician; When: 2 - 3 days; Reason: Recheck today's complaints, Continuance of care, Re-evaluation by your physician. - Problem is new. - Symptoms have improved. Signatures: Dispatcher [employer] EDMS Jaxon Rothman MD MD kdr Marinas, Patrick, NP JITNEY DRIVER pm1 Suzanne Barnes, MIRYAM RN Sal Pradhan RN RN bp Corrections: (The following items were deleted from the chart) 06/04 17:03 16:51 06/04/2018 16:51 Discharged to Home. Impression: Alcohol-induced chronic bp pancreatitis. Condition is Stable. Forms are Medication Reconciliation Form, Thank You Letter, Antibiotic Education, Prescription Opioid Use. Follow up: Emergency Department; When: As needed; Reason: Worsening of condition. Follow up: Private Physician; When: 2 - 3 days; Reason: Recheck today's complaints, Continuance of care, Re-evaluation by your physician. Problem is new. Symptoms have improved. pm1
[2018-06-04] MEDS ORDERED: MORPHINE 4 MG/ML SYR ONE (17:02)
[2018-06-04 17:52] VITALS: BP 129/96; O2SAT 98
== END 2018-06-04 17:03 | disposition home or self-care (01) ==
LOC: ER 12:05
DX: K86.0 Alcohol-induced chronic pancreatitis (principal); F10.10 Alcohol abuse, uncomplicated; F17.210 Nicotine dependence, cigarettes, uncomplicated
CPT/HCPCS: 36415; 80048; 80076; 80320; 81003; 83690; 85025; 99284; J2405; J3010; J7030

== ENCOUNTER 2018-07-01 08:59 | Emergency (ER) | payer SELFPAY ==
--- OUTSIDE RECORDS SUMMARY | 2018-07-01 09:03 | XMS REPORT | Clinical Summary ---
:1980 Author Organization [facility] Address [address] [place] [address] Care Team Providers Name Role Phone Unavailable [...] 09/01/2017 Orders Only General Internal Medicine 08/31/2017 [facility] Cardiology Talisha Abad Alcohol abuse; - Encounter MD Adriana Cystic mass of pancreas; 09/09/2017 [place], History of DVT (deep vein thrombosis); Caden-Dannie Alcohol-induced acute pancreatitis without infection or necrosis; MD Nayely Smoker; Larry Rodriguez Portal vein thrombosis MD Connor Bishop Sahar, MD Neela, Nazia Huerta MD after 06/30/2017 Family History Medical History Relation Name Comments [...] procedure are in the results section. after 06/30/2017 Results Calcium, Ionized (09/19/2017 6:02 AM CDT)Only the most recent of3 resultswithin the time period is included. Calcium, Ion 1.11 (L) 1.12 - 1.27 mmol/L [facility] pH, Blood 7.[address] [facility] Specimen Blood - Line, Venous Performing Organization Address [facility]/Zipcode Phone Number [address] [address] CENTER Phosphorus (09/19/2017 6:02 AM CDT)Only the most recent of10 resultswithin the time period is included. Phosphorus 3.0 2.3 - 4.7 mg/dL [facility] Specimen Blood - Line, Venous Performing Organization Address [facility] Cent[facility]ode Phone Number [address] [address] CENTER Magnesium (09/19/2017 6:02 AM CDT)Only the most recent of10 resultswithin the time period is included. Magnesium 2.0 1.6 - 2.6 mg/dL [facility] Specimen Blood - Line, Venous Performing Organization Address [facility] Centerconm Phone Number [address] [address] [place] Basic Metabolic Panel (09/19/2017 6:02 AM CDT)Only the most recent of15 resultswithin the time period is included. Sodium 138 136 - 145 meq/L [facility] Potassium 3.8 3.5 - 5.1 meq/L [facility] Chloride 109 (H) 98 - 107 meq/L [facility] CO2 22 22 - 29 meq/L [facility] BUN 10 7 - 21 mg/dL [facility] Creatinine 0.53 (L) 0.57 - 1.25 mg/dL [facility] Glucose 88 70 - 105 mg/dL [facility] Calcium 8.5 8.4 - 10.2 mg/dL [facility] EGFR 174Comment: ESTIMATED GFR IS mL/min/1.73 sq m [facility] NOT ACCURATE [facility] CLEARANCE IN PREDICTING GLOMERULAR FILTRATION RATE. ESTIMATED GFR IS NOT APPLICABLE FOR DIALYSIS PATIENTS. Specimen Blood - Line, Venous Performing Organization Address City/State/Zipcode Phone Number [facility] [address] [place] [address] [phone] CENTER CBC with platelet count + automated diff (09/17/2017 3:54 AM CDT)Only the most recent of11 resultswithin the time period is included. WBC 10.1 3.5 - 10.5 K/L [facility] RBC 4.16 (L) 4.63 - 6.08 M/L [facility] Hemoglobin 12.6 (L) 13.7 - 17.5 GM/DL [facility] Hematocrit 37.3 (L) 40.1 - 51.0 % [facility] MCV 89.7 79.0 - 92.[address] [facility] MCH 30.3 25.7 - 32.[address] [facility] MCHC 33.8 32.3 - 36.5 GM/DL [facility] RDW 14.0 11.6 - 14.4 % [facility] Platelets 541 (H) 150 - 450 K/CU MM [facility] MPV 9.1 (L) 9.4 - 12.[address] [facility] nRBC 0 0 - 0 /[address] [facility] % Neutros 66 % [facility] % Lymphs 20 % [facility] % Monos 10 % [facility] % Eos 3 % [facility] % Baso 1 % [facility] # Neutros 6.65 (H) 1.78 - 5.38 K/L [facility] # Lymphs 2.05 1.32 - 3.57 K/L [facility] # Monos 1.03 (H) 0.30 - 0.82 K/L [facility] # Eos 0.26 0.04 - 0.54 K/L [facility] # Baso 0.10 (H) 0.01 - 0.08 K/L [facility] Immature Granulocytes-Relative 0 0 - 1 % [facility] Specimen Blood - Line, Venous Performing Organization Address City/State/Zipcode Phone Number [facility] [address] [place] [address] [phone] CENTER US abdominal with doppler (09/17/2017 3:00 AM CDT) Narrative Performed At FINAL REPORT [employer] Comparison exam: Right upper quadrant ultrasound 09/01/2017. [...] MD Report Verified Date/Time:09/17/2017 04:01:12 Reading Location: [facility] C013X Ortho Consult Reading Room Procedure Note [...] Report Verified Date/Time: 09/17/2017 04:01:12 Reading Location: [facility] C013X Ortho Consult Reading Room Performing Organization [...] my direction. Total intra-service time of sedation [id number]. The patient's vital signs were monitored throughout the procedure and recorded in the patient's medical record by the nurse. Anesthesia:Two percent Lidocaine without epinephrine. Approach:Right common femoral artery. Estimated blood loss:< 5 cc. Specimen: None. scarf and anneal operator: Michael Ortega MD. Wet Pour Mixer: None.. Fluoroscopy Time: 31.7 min. Reference Air [...] over 0.035 Bentson wire for a 5 Congolese by 10 cm vascular sheath. A 5 Congolese Sutton B catheter was used to select the celiac trunk and SMA for multiple DSA runs. The Sutton catheter was then remanipulated into the celiac trunk. Next, using a 2.4 Congolese microcatheter and 0.016 inch microwire, the gastroduodenal artery was cannulated. Subsequently, the catheter was manipulated into the feeding branch supplying the abnormal area of hyperemia/vessel irregularity. From this location, embolization was performed using Interlock microcoils. The microcatheter was retracted into the GDA proximally and postdilatation DSA was performed. Next, the Sutton base catheter was manipulated into the SMA. Using a 2. Congolese directional microcatheter and 0.014 inch microwire, the [...] MD Report Verified Date/Time:09/20/2017 16:25:06 Reading Location: [place] [address] Angio Body Reading Room Procedure Note Interface, [...] blood loss: < 5 cc. Specimen: None. scarf and anneal operator: Michael Ortega MD. Wet Pour Mixer: None.. Fluoroscopy Time: 31.7 min. Reference Air [...] over 0.035 Bentson wire for a 5 Congolese by 10 cm vascular sheath. A 5 Congolese Sutton B catheter was used to select the celiac trunk and SMA for multiple DSA runs. The Sutton catheter was then remanipulated into the celiac trunk. Next, using a 2.4 Congolese microcatheter and 0.016 inch microwire, the gastroduodenal artery was cannulated. Subsequently, the catheter was manipulated into the feeding branch supplying the abnormal area of hyperemia/vessel irregularity. From this location, embolization was performed using Interlock microcoils. The microcatheter was retracted into the GDA proximally and postdilatation DSA was performed. Next, the Sutton base catheter was manipulated into the SMA. Using a 2. Congolese directional microcatheter and 0.014 inch microwire, the [...] Report Verified Date/Time: 09/20/2017 16:25:06 Reading Location: [place] [address] Angio Body Reading Room Performing Organization Address City/[facility] Centercode Phone Number [facility] C-Reactive Protein (09/16/2017 12:32 PM CDT)Only the most recent of2 resultswithin the time period is included. CRP 0.97 (H) 0.00 - 0.50 mg/dL [facility] Specimen Blood - Central Venous Line Performing Organization Address City/[facility]/Zipcode Phone Number [address] [address] CENTER PT/aPTT (09/16/2017 10:54 AM CDT) Protime 16.2 (H) 11.7 - 14.[address] [facility] INR 1.3 <=5.[address] [facility] PTT 30.2 22.5 - 36.[address] [facility] Specimen Blood - Central Venous Line Narrative Performed At [facility] RECOMMENDED COUMADIN/WARFARIN INR THERAPY RANGES STANDARD DOSE: 2.0 - 3.0 Includes: PROPHYLAXIS for venous thrombosis, systemic embolization; TREATMENT for venous thrombosis and/or pulmonary embolus. HIGH RISK: Target INR is 2.5-3.5 for patients with mechanical heart valves. Performing Organization Address City/[facility] Centercode Phone Number [address] [address] [phone] [place] Triglycerides (09/16/2017 4:20 AM CDT) Triglycerides 78 mg/dL [facility] Specimen Blood - Line, Venous Narrative Performed At [facility] TRIGLYCERIDE REFERENCE RANGE Low Risk<150 Borderline Risk 150-199 High Hwww008-100 Very High Risk >=500 Performing Organization Address [facility] Centercode Phone Number [address] [address] [place] Lipase (09/16/2017 4:20 AM CDT)Only the most recent of4 resultswithin the time period is included. Lipase 114 (H) 8 - 78 U/L [facility] Specimen Blood - Line, Venous Performing Organization Address [facility] Phone Number [address] [address] [phone] [place] Hepatic function panel (09/16/2017 4:20 AM CDT)Only the most recent of4 resultswithin the time period is included. Protein, Total 6.5 6.0 - 8.3 gm/dL [facility] Albumin 3.7 3.5 - 5.0 g/dL [facility] Total Bilirubin 0.3 0.2 - 1.2 mg/dL [facility] Bilirubin, Direct 0.1 0.1 - 0.5 mg/dL [facility] Alkaline Phosphatase 79 40 - 150 U/L [facility] AST 14 5 - 34 U/L [facility] ALT 9 6 - 55 U/L [facility] Specimen Blood - Line, Venous Performing Organization Address [facility] Centerconm Phone Number [address] [address] CENTER XR chest 1 view portable / bedside (09/15/2017 7:43 PM CDT) Narrative Performed At FINAL REPORT GE [facility] History: PICC line placement. Comparison: None. Findings: 2 frontal views of the chest are submitted. A left PICC line tip overlies the SVC. The cardiomediastinal contours are unremarkable. There is no focal consolidation, pneumothorax, large pleural effusion or evidence of overt pulmonary edema. There is no acute bony abnormality. Signed: George Keys MD Report Verified Date/Time:09/15/2017 19:53:01 Reading Location: [address] Reading Room Procedure Note Interface, [...] Report Verified Date/Time: 09/15/2017 19:53:01 Reading Location: [address] Reading Room Performing Organization Address City/State/Zipcode Phone Number [facility] PERIPHERAL VASCULAR REPORT - SCAN (09/15/2017 5:20 PM CDT) Narrative Performed At Venous doppler legs bilateral (09/15/2017 2:49 PM CDT) Ejection Fraction [facility] MKCKESSON CPACS Impressions Performed At Right Impression [facility]ON CPACS [...] PV LAB - Lower Extremities DVT Study [facility] Demographics Patient NameANKIT ROSALES Date of Study09/15/2017 37 Visit [id number] mago Male of Birth1980 Number Referring Julissa AlfonsoNancy, Room [id number] 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 Interpreting Prema Gabriel, T, ARS [...] City/State/Zipcode Phone Number [facility] Pancreatic elastase, fecal (09/15/2017 10:36 AM [...] Lab [facility] [address] [address] Enrique Holliday MD, PhD, GIDEON Performing Organization Address City/[facility]/Zipcode Phone Number [facility], [place] [address] [place] [address] Peripheral Blood Smear - Path Review (09/14/2017 4:37 AM CDT) Pathologist Review Thrombocytosis. No [facility] circulating blasts or MEDICAL CENTER increased schistocytes. Clinical follow up recommended. Pathologist: Enoch Saba [facility] Miladis(electronic signature) [facility] Specimen Blood Performing Organization Address [facility]/Zipcode Phone Number [address] [address] [phone] CENTER Vitamin B12 and Folate (09/14/2017 4:37 AM CDT) Vitamin B12 527 213 - 816 pg/mL [facility] Folate 12.3 >=7.0 ng/mL [facility] Specimen Blood Performing Organization Address City/[facility] Centercode Phone Number [address] [address] [place] RHYTHM STRIP - SCAN (09/10/2017 10:40 AM CDT) Narrative Performed At aPTT (09/09/2017 9:37 AM CDT)Only the most recent of9 resultswithin the time period is included. PTT 44.5 (H) 22.5 - 36.[address] [facility] Specimen Blood Performing Organization Address [facility]/Zipcode Phone Number [address] [address] [place] REPORT OF PROCEDURE - ENDOSCOPY URL (09/08/2017 5:47 PM CDT) Narrative Performed At FINE NEEDLE ASPIRATE (FNA) REQUEST (09/08/2017 5:43 PM CDT) Cytology See Separate Report [facility] Specimen Fine Needle Aspirate - Pancreas Performing Organization Address City/State/Zipcode Phone Number [facility] [address] [place] [address] [phone] CENTER Fine Needle Aspirate by Clinician (09/08/2017 5:43 PM CDT) Case Report Medical Cytology Report Case: [id number] [facility] Authorizing Provider:Bessy Hernandez MDCollected: 09/08/2017 1743 [facility] Ordering Location: [address] Received: 09/08/2017 1817 Service Pathologist: Mir Anthony MD Specimen:Pancreas DIAGNOSIS PANCREAS HEAD CYSTIC LESION FNA BY CLINICIAN (CYTOSPINS AND CELL BLOCK OF ASPIRATE): [facility] - NO MALIGNANT CELLS IDENTIFIED [facility] - The mucin stain shows focal weak staining Signing Pathologist Direct Phone Line: [phone] COMMENT The cell block shows [facility] non-inflammed pancreatic [facility] acinar tissue. CPT Code(s) 59854, 85378, [address] [facility] CLINICAL DATA (4.9 X 4.8 cm) Cystic [facility] lesion in the pancreatic [facility] head SPECIMEN SOURCE PANCREAS HEAD CYSTIC [facility] LESION FNA [facility] GROSS DESCRIPTION 25 mls in cytorich red; 4 cytospins, 1 mucin stain, cell block [facility] Collected: [id number] [facility] Received: [id number] Technical component was [facility] performed at [place], Department of [facility] Pathology, [address] [place] [address], Professional component was [facility] performed at [place], Department of [facility] Pathology, [address] [place] [address], Specimen Fine Needle Aspirate - Pancreas Narrative Performed At Performing Organization Address City/State/Zipcode Phone Number [facility] [address] [place] [address] ab[address]/pelvis - pancreas evaluation (09/04/2017 12:20 AM CDT) Narrative Performed At FINAL REPORT [employer] CT, ABDOMEN - PELVIS, PANCREAS EVALUATION INDICATION: [...] MD Report Verified Date/Time:09/04/2017 00:22:52 Reading Location: [address] Reading Room Procedure Note Interface, [...] Report Verified Date/Time: 09/04/2017 00:22:52 Reading Location: [address] Reading Room Performing Organization Address City/State/Zipcode Phone Number [employer] POC-Glucose meter (09/02/2017 7:29 AM CDT)Only the most recent of2 resultswithin the time period is included. POC-Glucose Meter 140 (H)Comment: TESTED AT 70 - 110 mg/dL [facility] [address] [facility] [id number] Specimen Blood Performing Organization Address City/State/Zipcode Phone Number [facility] [address] [place], [place] [phone] CENTER ECG 12 lead (09/01/2017 6:18 PM CDT) Narrative Performed At Ventricular Rate 77 BPM GE MUSE Atrial Rate 77 BPM P-R Interval 162 ms QRS Duration 98 ms Q-T Interval 404 ms QTC Calculation(Bazett) 457 ms P Oak[place] -8 degrees R [place] 30 degrees T [place] -1 degrees Normal sinus rhythm RSR' or QR pattern in V1 suggests right ventricular conduction delay Cannot rule out Anterior infarct , age undetermined Abnormal ECG No previous ECGs available Confirmed by MD [place] ([id number]) on 09/02/2017 2:25:25 PM Procedure Note Interface, External Ris In - 09/02/2017 2:25 PM CDT Ventricular Rate 77 BPM Atrial Rate 77 BPM P-R Interval 162 ms QRS Duration 98 ms Q-T Interval 404 ms QTC Calculation(Bazett) 457 ms P [place] -8 degrees R [place] 30 degrees T [place] -1 degrees Normal sinus rhythm RSR' or QR pattern in V1 suggests right ventricular conduction delay Cannot rule out Anterior infarct , age undetermined Abnormal ECG No previous ECGs available Confirmed by MD [place] ([id number]) on 09/02/2017 2:25:25 PM Performing Organization Address [facility]m Phone Number [employer] US abdomen limited (09/01/2017 5:23 AM CDT) Narrative Performed At FINAL REPORT [employer] INDICATION: 37-year-old male with abdominal pain and [...] MD Report Verified Date/Time:09/01/2017 09:53:12 Reading Location: [address] Ultrasound Reading Room Procedure Note Interface, [...] Report Verified Date/Time: 09/01/2017 09:53:12 Reading Location: [place] [id number] Ultrasound Reading Room Performing Organization Address City/State/Zipcode Phone Number [facility] TSH/Free T4 If Indicated (09/01/2017 3:12 AM CDT) TSH 0.36 0.35 - 4.94 uIU/mL [facility] Specimen Blood - Arm, Left Performing Organization Address City/State/Zipcode Phone Number [address] [address] [phone] CENTER Troponin I (09/01/2017 3:12 AM CDT) Troponin I <0.01 0.00 - 0.03 ng/mL [facility] Specimen Blood - Arm, Left Narrative Performed At [facility] Troponin I (TnI) levels must be [...] tachyarrhythmia. Performing Organization Address City/State/Zipcode Phone Number [address] [phone] CENTER Sedimentation rate (09/01/2017 3:12 AM CDT) Sed Rate 3 0 - 15 mm/HR [facility] Specimen Blood - Arm, Left Performing Organization Address [facility] Centercode Phone Number [address] [address] CENTER Hemoglobin A1c (09/01/2017 3:12 AM CDT) Hemoglobin A1C 4.7 4.3 - 6.1 % [facility] Specimen Blood - Arm, Left Performing Organization Address City/[facility]/Zipcode Phone Number [address] [address] CENTER Creatine Kinase (CK), Total and MB (09/01/2017 3:12 AM CDT) Total CK 29 29 - 200 U/L [facility] CK-MB 0.4 0.0 - 6.6 ng/mL [facility] MB Relative Index 1.4 % [facility] Specimen Blood - Arm, Left Narrative Performed At CK-MB Reference Range: [facility] <6.7Normal 6.7-10.0Borderline >10.0 Abnormal Performing Organization Address [facility] Centercode Phone Number [facility] [address] [place] [address] CENTER Amylase (09/01/2017 3:12 AM CDT) Amylase 383 (H) 25 - 125 U/L [facility] Specimen Blood - Arm, Left Performing Organization Address [facility] Centerconm Phone Number [address] [address] [phone] [place] Lipid panel (09/01/2017 3:12 AM CDT) Triglycerides 76 mg/dL [facility] Cholesterol 118 mg/dL [facility] HDL 37 mg/dL [facility] LDL Calculated 66 mg/dL [facility] Specimen Blood - Arm, Left Narrative Performed At [facility] Triglyceride Reference Range: Low Risk <150 [id number] High Risk 200-499 Very High Risk>=500 Cholesterol Reference Range: Low Risk <200 Yrhvtnogar935-395 High Risk>240 HDL Cholesterol Reference Range: Low Risk >=60 High Risk <40 LDL Cholesterol Reference Range: Optimal<100 Near Aivfaym925-829 Typtnmzixo987-154 Csmr933-189 Very High >=190 Performing Organization Address [facility] Center[facility]m Phone Number [address] [address] [phone] CENTER Blood culture (09/01/2017 3:11 AM CDT)Only the most recent of2 resultswithin the time period is included. Result No growth in [address] [facility] Specimen Blood - Arm, Right Performing Organization Address [facility] Centercode Phone Number [place] [phone] [place] [address] CENTER after 06/30/2017 Advance Directives For more information, please contact:[place] [address] [address] [place], [place] [phone] Code Status Date Activated Date Inactivated Comments [...]
--- OUTSIDE RECORDS SUMMARY | 2018-07-01 09:07 | XMS REPORT ---
[...] End Status Dosage System Date Date [facility]ix[facility] [id number] 2.5 MG Orally Active not defined Tramadol HCl [facility] 2001 [id number] 50 MG Orally Active 1 tablet every 6 hrs as needed Results No Known Results Summary Purpose eClinicalWorks Submission
--- OUTSIDE RECORDS SUMMARY | 2018-07-01 09:07 | XMS REPORT ---
:1980 [facility] Address [address] [place] [address] Care Team Providers Name Role Phone VANI [...] WALLER, 2017-09-[address] at [facility] for FINAL REPORT PATIENT EXTENSIVE - 16:25:00 evidence of bleedCall with ID: [id number] ARTERIAL questions: [phone] [facility] for and embolization exam:->Pancreaticoduodednal artery [...] blood loss: < 5 cc. Specimen: None. nitric acid concentrator operator: Michael Ortega MD. Yeast Pumper: None.. Fluoroscopy Time: 31.7 min.Reference Air Kerma [...] over 0.035 Bentson wire for a 5 Niuean by 10 cm vascular sheath. A 5 Niuean Sutton B catheter was used to select the celiac trunk and SMA for multiple DSA runs. The Sutton catheter was then remanipulated into the celiac trunk. Next, using a 2.4 Niuean microcatheter and 0.016 inch microwire, the gastroduodenal artery was cannulated. Subsequently, the catheter was manipulated into the feeding branch supplying the abnormal area of hyperemia/vessel irregularity. From this location, embolization was performed using Interlock microcoils. The microcatheter was retracted into the GDA proximally and postdilatation DSA was performed. Next, the Sutton base catheter was manipulated into the SMA. Using a 2. Niuean directional microcatheter and 0.014 inch microwire, the [...] Date/Time: 09/20/2017 16:25:06 Reading Location: [place] [address] Angio Body Reading Room IUM, IONIZED 2017-09-19 07:02:00 Test Item Value Reference Range Comments CALCIUM IONIZED (BEAKER) (test gczj=258) 1.11 mmol/L 1.12-1.27 PH, BLOOD (BEAKER) (test ldfi=4938) 7.40 [id number] 06:35:00 Test Item Value Reference Range Comments PHOSPHORUS (BEAKER) (test gkpe=038) 3.0 mg/dL 2.3-4.7 [id number] 06:35:00 Test Item Value Reference Range Comments MAGNESIUM (BEAKER) (test ihtl=606) 2.0 mg/dL 1.6-2.6 BASIC METABOLIC [id number] 06:35:00 Test Item Value Reference Range Comments SODIUM (BEAKER) (test 138 meq/L 136-145 lhdw=252) POTASSIUM (BEAKER) (test 3.8 meq/L 3.5-5.1 srsr=500) CHLORIDE (BEAKER) (test 109 meq/L 98-107 trit=302) CO2 (BEAKER) (test 22 meq/L 22-29 zkbi=566) BLOOD UREA NITROGEN 10 mg/dL 7-21 (BEAKER) (test iajt=529) CREATININE (BEAKER) (test 0.53 mg/dL 0.57-1.25 hyih=117) GLUCOSE RANDOM (BEAKER) 88 mg/dL 70-105 (test iqpb=537) CALCIUM (BEAKER) (test 8.5 mg/dL 8.4-10.2 lwyy=419) EGFR (BEAKER) (test 174 mL/min/1.73 sq m ESTIMATED GFR IS NOT rggg=0547) ACCURATE CREATININE CLEARANCE IN PREDICTING GLOMERULAR FILTRATION RATE. ESTIMATED GFR IS NOT APPLICABLE FOR DIALYSIS PATIENTS. CALCIUM, [id number] 07:12:00 Test Item Value Reference Range Comments CALCIUM IONIZED (BEAKER) (test cqym=400) 1.09 mmol/L 1.12-1.27 PH, BLOOD (BEAKER) (test emrh=7583) 7.41 [id number] 06:38:00 Test Item Value Reference Range Comments PHOSPHORUS (BEAKER) (test mztg=044) 3.0 mg/dL 2.3-4.7 [id number] 06:38:00 Test Item Value Reference Range Comments MAGNESIUM (BEAKER) (test catm=597) 2.1 mg/dL 1.6-2.6 BASIC METABOLIC [id number] 06:38:00 Test Item Value Reference Range Comments SODIUM (BEAKER) (test 137 meq/L 136-145 qvpn=643) POTASSIUM (BEAKER) (test 3.7 meq/L 3.5-5.1 ksor=480) CHLORIDE (BEAKER) (test 108 meq/L 98-107 xlek=088) CO2 (BEAKER) (test 22 meq/L 22-29 bphf=453) BLOOD UREA NITROGEN 10 mg/dL 7-21 (BEAKER) (test ncop=464) CREATININE (BEAKER) (test 0.52 mg/dL 0.57-1.25 rgip=223) GLUCOSE RANDOM (BEAKER) 99 mg/dL 70-105 (test uurk=313) CALCIUM (BEAKER) (test 8.6 mg/dL 8.4-10.2 stpj=747) EGFR (BEAKER) (test 178 mL/min/1.73 sq m ESTIMATED GFR IS NOT mglb=3910) ACCURATE CREATININE CLEARANCE IN PREDICTING GLOMERULAR FILTRATION RATE. ESTIMATED GFR IS NOT APPLICABLE FOR DIALYSIS PATIENTS. CALCIUM, [id number] 04:45:00 Test Item Value Reference Range Comments CALCIUM IONIZED (BEAKER) (test oros=936) 1.14 mmol/L 1.12-1.27 PH, BLOOD (BEAKER) (test msra=7263) 7.39 [id number] 04:22:00 Test Item Value Reference Range Comments PHOSPHORUS (BEAKER) (test lezp=464) 2.8 mg/dL 2.3-4.7 [id number] 04:22:00 Test Item Value Reference Range Comments MAGNESIUM (BEAKER) (test yuqe=561) 1.9 mg/dL 1.6-2.6 BASIC METABOLIC [id number] 04:22:00 Test Item Value Reference Range Comments SODIUM (BEAKER) (test 134 meq/L 136-145 ypqv=570) POTASSIUM (BEAKER) (test 3.3 meq/L 3.5-5.1 juvz=102) CHLORIDE (BEAKER) (test 103 meq/L 98-107 xddi=574) CO2 (BEAKER) (test 23 meq/L 22-29 mbmg=943) BLOOD UREA NITROGEN 11 mg/dL 7-21 (BEAKER) (test vaos=446) CREATININE (BEAKER) (test 0.55 mg/dL 0.57-1.25 qoqs=187) GLUCOSE RANDOM (BEAKER) 112 mg/dL 70-105 (test oabk=761) CALCIUM (BEAKER) (test 8.7 mg/dL 8.4-10.2 ikdn=715) EGFR (BEAKER) (test 167 mL/min/1.73 sq m ESTIMATED GFR IS NOT nlzb=5217) ACCURATE CREATININE CLEARANCE IN PREDICTING GLOMERULAR FILTRATION RATE. ESTIMATED GFR IS NOT APPLICABLE FOR DIALYSIS PATIENTS. CBC W/PLT COUNT & AUTO [id number] 04:11:00 Test Item Value Reference Range Comments WHITE BLOOD CELL COUNT (BEAKER) (test vjsn=754) 10.1 K/ L 3.5-10.5 RED BLOOD CELL COUNT (BEAKER) (test qgku=067) 4.16 M/ L 4.63-6.08 HEMOGLOBIN (BEAKER) (test gund=371) 12.6 GM/DL 13.7-17.5 HEMATOCRIT (BEAKER) (test cniv=260) 37.3 % 40.1-51.0 MEAN CORPUSCULAR VOLUME (BEAKER) (test wxat=215) 89.7 fL 79.0-92.2 MEAN CORPUSCULAR HEMOGLOBIN (BEAKER) (test 30.3 pg 25.7-32.2 vxio=476) MEAN CORPUSCULAR HEMOGLOBIN CONC (BEAKER) (test 33.8 GM/DL 32.3-36.5 vsbb=536) RED CELL DISTRIBUTION WIDTH (BEAKER) (test 14.0 % 11.6-14.4 pond=545) PLATELET COUNT (BEAKER) (test hkgq=429) 541 K/CU MM 150-450 MEAN PLATELET VOLUME (BEAKER) (test qfbe=776) 9.1 fL 9.4-12.4 NUCLEATED RED BLOOD CELLS (BEAKER) (test 0 /100 WBC 0-0 mfww=025) NEUTROPHILS RELATIVE PERCENT (BEAKER) (test 66 % hhtx=870) LYMPHOCYTES RELATIVE PERCENT (BEAKER) (test 20 % kmaz=697) MONOCYTES RELATIVE PERCENT (BEAKER) (test 10 % rkkk=775) EOSINOPHILS RELATIVE PERCENT (BEAKER) (test 3 % lkmz=754) BASOPHILS RELATIVE PERCENT (BEAKER) (test 1 % bipi=838) NEUTROPHILS ABSOLUTE COUNT (BEAKER) (test 6.65 K/ L 1.78-5.38 rdys=287) LYMPHOCYTES ABSOLUTE COUNT (BEAKER) (test 2.05 K/ L 1.32-3.57 csff=097) MONOCYTES ABSOLUTE COUNT (BEAKER) (test 1.03 K/ L 0.30-0.82 brfc=481) EOSINOPHILS ABSOLUTE COUNT (BEAKER) (test 0.26 K/ L 0.04-0.54 ealc=628) BASOPHILS ABSOLUTE COUNT (BEAKER) (test 0.10 K/ L 0.01-0.08 rghn=392) IMMATURE GRANULOCYTES-RELATIVE PERCENT (BEAKER) 0 % 0-1 (test lart=3717) U/S, ABDOMINAL, WITH [id number] 04:01:00Reason for exam:->? hx of PV thrombosisFINAL [...] Gaspar Verified Date/Time: 09/17/2017 04:01:12 Reading Location: [facility] [id number] Ortho Consult Reading Room 04 :01 AMC-REACTIVE [id number] 13:17:00 Test Item Value Reference Range Comments C-REACTIVE PROTEIN (BEAKER) (test iman=896) 0.97 mg/dL 0.00-0.50 [id number] 11:12:00 Test Item Value Reference Range Comments PROTIME (BEAKER) (test baqs=027) 16.2 seconds 11.7-14.7 INR (BEAKER) (test ysnw=609) 1.3 <=5.9 PARTIAL THROMBOPLASTIN TIME (BEAKER) (test 30.2 seconds 22.5-36.0 akbl=901) RECOMMENDED COUMADIN/WARFARIN INR THERAPY RANGESSTANDARD DOSE: 2.0 - 3.0 Includes: PROPHYLAXIS forvenous thrombosis, systemic embolization; TREATMENT for venous thrombosis and/or pulmonary embolus.HIGH RISK: Target INR is 2.5-3.5 for patients with mechanical heart valves.[id number] 05:28:00 Test Item Value Reference Range Comments TRIGLYCERIDES (BEAKER) (test plol=161) 78 mg/dL TRIGLYCERIDE REFERENCE RANGELow Risk <150Borderline Risk 150-199High Risk 200-499Very High Risk>=[id number] 05:28:00 Test Item Value Reference Range Comments MAGNESIUM (BEAKER) (test ksfx=426) 1.9 mg/dL 1.6-2.6 [id number] 05:28:00 Test Item Value Reference Range Comments PHOSPHORUS (BEAKER) (test sqas=095) 3.5 mg/dL 2.3-4.7 BASIC METABOLIC [id number] 05:28:00 Test Item Value Reference Range Comments SODIUM (BEAKER) (test 134 meq/L 136-145 ttsw=366) POTASSIUM (BEAKER) (test 3.6 meq/L 3.5-5.1 dkdc=182) CHLORIDE (BEAKER) (test 105 meq/L 98-107 idfm=265) CO2 (BEAKER) (test 23 meq/L 22-29 hqpi=743) BLOOD UREA NITROGEN 13 mg/dL 7-21 (BEAKER) (test vfzz=143) CREATININE (BEAKER) (test 0.56 mg/dL 0.57-1.25 vbcq=489) GLUCOSE RANDOM (BEAKER) 83 mg/dL 70-105 (test qpia=011) CALCIUM (BEAKER) (test 8.8 mg/dL 8.4-10.2 ufmn=767) EGFR (BEAKER) (test 163 mL/min/1.73 sq m ESTIMATED GFR IS NOT zszt=4257) ACCURATE CREATININE CLEARANCE IN PREDICTING GLOMERULAR FILTRATION RATE. ESTIMATED GFR IS NOT APPLICABLE FOR DIALYSIS PATIENTS. HEPATIC FUNCTION [id number] 05:28:00 Test Item Value Reference Range Comments TOTAL PROTEIN (BEAKER) (test fcmo=390) 6.5 gm/dL 6.0-8.3 ALBUMIN (BEAKER) (test rmbp=9628) 3.7 g/dL 3.5-5.0 BILIRUBIN TOTAL (BEAKER) (test ueuf=359) 0.3 mg/dL 0.2-1.2 BILIRUBIN DIRECT (BEAKER) (test svhd=777) 0.1 mg/dL 0.1-0.5 ALKALINE PHOSPHATASE (BEAKER) (test gqhl=740) 79 U/L 40-150 AST (SGOT) (BEAKER) (test mljq=872) 14 U/L 5-34 ALT (SGPT) (BEAKER) (test xwvp=920) 9 U/L 6-55 [id number] 05:28:00 Test Item Value Reference Range Comments LIPASE (BEAKER) (test rond=599) 114 U/L 8-78 CBC W/PLT COUNT & AUTO [id number] 05:03:00 Test Item Value Reference Range Comments WHITE BLOOD CELL COUNT (BEAKER) (test accs=473) 7.2 K/ L 3.5-10.5 RED BLOOD CELL COUNT (BEAKER) (test hend=355) 4.04 M/ L 4.63-6.08 HEMOGLOBIN (BEAKER) (test uqcb=149) 12.2 GM/DL 13.7-17.5 HEMATOCRIT (BEAKER) (test mkdd=966) 36.7 % 40.1-51.0 MEAN CORPUSCULAR VOLUME (BEAKER) (test dldh=055) 90.8 fL 79.0-92.2 MEAN CORPUSCULAR HEMOGLOBIN (BEAKER) (test 30.2 pg 25.7-32.2 flpo=952) MEAN CORPUSCULAR HEMOGLOBIN CONC (BEAKER) (test 33.2 GM/DL 32.3-36.5 ohgp=458) RED CELL DISTRIBUTION WIDTH (BEAKER) (test 14.3 % 11.6-14.4 vkaa=814) PLATELET COUNT (BEAKER) (test gclp=172) 561 K/CU MM 150-450 MEAN PLATELET VOLUME (BEAKER) (test tkaa=219) 9.2 fL 9.4-12.4 NUCLEATED RED BLOOD CELLS (BEAKER) (test 0 /100 WBC 0-0 ykxc=692) NEUTROPHILS RELATIVE PERCENT (BEAKER) (test 51 % drjd=318) LYMPHOCYTES RELATIVE PERCENT (BEAKER) (test 32 % qmab=420) MONOCYTES RELATIVE PERCENT (BEAKER) (test 11 % enwj=853) EOSINOPHILS RELATIVE PERCENT (BEAKER) (test 4 % omia=451) BASOPHILS RELATIVE PERCENT (BEAKER) (test 2 % bmhc=444) NEUTROPHILS ABSOLUTE COUNT (BEAKER) (test 3.66 K/ L 1.78-5.38 iszu=091) LYMPHOCYTES ABSOLUTE COUNT (BEAKER) (test 2.30 K/ L 1.32-3.57 anju=710) MONOCYTES ABSOLUTE COUNT (BEAKER) (test 0.77 K/ L 0.30-0.82 vwlm=561) EOSINOPHILS ABSOLUTE COUNT (BEAKER) (test 0.30 K/ L 0.04-0.54 eopk=143) BASOPHILS ABSOLUTE COUNT (BEAKER) (test 0.11 K/ L 0.01-0.08 krhy=675) IMMATURE GRANULOCYTES-RELATIVE PERCENT (BEAKER) 1 % 0-1 (test gdxx=7104) RAD, CHEST, 1 VIEW, NON [id number] 19:53:00Reason for exam:->check picc placement Should this [...] MDReport Verified Date/Time: 09/15/2017 19:53:01 Reading Location: [address] Reading Room Electronically signed by: GEORGE KEYS M.D. on 07:53 PMCBC W/PLT COUNT & AUTO [id number] 10:27:00 Test Item Value Reference Range Comments WHITE BLOOD CELL COUNT (BEAKER) (test mrbu=072) 7.8 K/ L 3.5-10.5 RED BLOOD CELL COUNT (BEAKER) (test xysd=890) 3.95 M/ L 4.63-6.08 HEMOGLOBIN (BEAKER) (test sykq=154) 12.0 GM/DL 13.7-17.5 HEMATOCRIT (BEAKER) (test quax=535) 35.9 % 40.1-51.0 MEAN CORPUSCULAR VOLUME (BEAKER) (test idfl=018) 90.9 fL 79.0-92.2 MEAN CORPUSCULAR HEMOGLOBIN (BEAKER) (test 30.4 pg 25.7-32.2 nsir=537) MEAN CORPUSCULAR HEMOGLOBIN CONC (BEAKER) (test 33.4 GM/DL 32.3-36.5 rlts=165) RED CELL DISTRIBUTION WIDTH (BEAKER) (test 14.6 % 11.6-14.4 mueu=401) PLATELET COUNT (BEAKER) (test cdfq=782) 543 K/CU MM 150-450 MEAN PLATELET VOLUME (BEAKER) (test yjri=288) 9.1 fL 9.4-12.4 NUCLEATED RED BLOOD CELLS (BEAKER) (test 0 /100 WBC 0-0 nmbs=025) NEUTROPHILS RELATIVE PERCENT (BEAKER) (test 59 % dgtj=060) LYMPHOCYTES RELATIVE PERCENT (BEAKER) (test 27 % rnbo=138) MONOCYTES RELATIVE PERCENT (BEAKER) (test 11 % sudm=003) EOSINOPHILS RELATIVE PERCENT (BEAKER) (test 1 % egdz=760) BASOPHILS RELATIVE PERCENT (BEAKER) (test 1 % uqwg=644) NEUTROPHILS ABSOLUTE COUNT (BEAKER) (test 4.56 K/ L 1.78-5.38 arph=646) LYMPHOCYTES ABSOLUTE COUNT (BEAKER) (test 2.11 K/ L 1.32-3.57 nybi=173) MONOCYTES ABSOLUTE COUNT (BEAKER) (test 0.89 K/ L 0.30-0.82 glie=297) EOSINOPHILS ABSOLUTE COUNT (BEAKER) (test 0.11 K/ L 0.04-0.54 qkrw=007) BASOPHILS ABSOLUTE COUNT (BEAKER) (test 0.08 K/ L 0.01-0.08 rrhe=092) IMMATURE GRANULOCYTES-RELATIVE PERCENT (BEAKER) 0 % 0-1 (test yyff=1225) PERIPHERAL BLOOD SMEAR - PATHOLOGIST [id number] 10:04:00 Test Item Value Reference Range Comments PERIPHERAL SMR REVIEW (BEAKER) Thrombocytosis. No circulating (test wfjz=6392) blasts or increased schistocytes. Clinical follow up recommended. [id number] (BEAKER) Enoch Saba (test fmbt=9882) Miladis(electronic signature) [id number] 06:02:00 Test Item Value Reference Range Comments PHOSPHORUS (BEAKER) (test btyv=866) 3.3 mg/dL 2.3-4.7 [id number] 06:02:00 Test Item Value Reference Range Comments MAGNESIUM (BEAKER) (test osqy=925) 2.0 mg/dL 1.6-2.6 BASIC METABOLIC [id number] 06:02:00 Test Item Value Reference Range Comments SODIUM (BEAKER) (test 132 meq/L 136-145 ybkx=994) POTASSIUM (BEAKER) (test 3.7 meq/L 3.5-5.1 bqat=561) CHLORIDE (BEAKER) (test 102 meq/L 98-107 lwcx=020) CO2 (BEAKER) (test 22 meq/L 22-29 vecp=325) BLOOD UREA NITROGEN 11 mg/dL 7-21 (BEAKER) (test aetu=404) CREATININE (BEAKER) (test 0.52 mg/dL 0.57-1.25 bhyb=856) GLUCOSE RANDOM (BEAKER) 76 mg/dL 70-105 (test anrg=645) CALCIUM (BEAKER) (test 9.4 mg/dL 8.4-10.2 lqkz=951) EGFR (BEAKER) (test 178 mL/min/1.73 sq m ESTIMATED GFR IS NOT zokg=3692) ACCURATE CREATININE CLEARANCE IN PREDICTING GLOMERULAR FILTRATION RATE. ESTIMATED GFR IS NOT APPLICABLE FOR DIALYSIS PATIENTS. VITAMIN B12 AND [id number] 12:22:00 Test Item Value Reference Range Comments VITAMIN B12 (BEAKER) (test povc=172) 527 pg/mL 213-816 FOLATE (BEAKER) (test szez=890) 12.3 ng/mL >=7.0 [id number] 07:34:00 Test Item Value Reference Range Comments LIPASE (BEAKER) (test sgez=485) 1107 U/L 8-78 BASIC METABOLIC [id number] 07:32:00 Test Item Value Reference Range Comments SODIUM (BEAKER) (test 134 meq/L 136-145 adlg=514) POTASSIUM (BEAKER) (test 3.7 meq/L 3.5-5.1 rgwy=427) CHLORIDE (BEAKER) (test 103 meq/L 98-107 wxqn=965) CO2 (BEAKER) (test 20 meq/L 22-29 meja=311) BLOOD UREA NITROGEN 10 mg/dL 7-21 (BEAKER) (test azmu=776) CREATININE (BEAKER) (test 0.59 mg/dL 0.57-1.25 pbwh=342) GLUCOSE RANDOM (BEAKER) 96 mg/dL 70-105 (test pocs=815) CALCIUM (BEAKER) (test 9.7 mg/dL 8.4-10.2 zreq=077) EGFR (BEAKER) (test 154 mL/min/1.73 sq m ESTIMATED GFR IS NOT iyrs=8911) ACCURATE CREATININE CLEARANCE IN PREDICTING GLOMERULAR FILTRATION RATE. ESTIMATED GFR IS NOT APPLICABLE FOR DIALYSIS PATIENTS. [id number] 07:32:00 Test Item Value Reference Range Comments MAGNESIUM (BEAKER) (test uhfa=560) 1.9 mg/dL 1.6-2.6 [id number] 07:32:00 Test Item Value Reference Range Comments PHOSPHORUS (BEAKER) (test kgwr=218) 3.4 mg/dL 2.3-4.7 CBC W/PLT COUNT & AUTO [id number] 06:44:00 Test Item Value Reference Range Comments WHITE BLOOD CELL COUNT (BEAKER) (test lass=703) 12.1 K/ L 3.5-10.5 RED BLOOD CELL COUNT (BEAKER) (test yswv=215) 4.34 M/ L 4.63-6.08 HEMOGLOBIN (BEAKER) (test dxre=976) 13.1 GM/DL 13.7-17.5 HEMATOCRIT (BEAKER) (test tnee=193) 39.2 % 40.1-51.0 MEAN CORPUSCULAR VOLUME (BEAKER) (test dasr=735) 90.3 fL 79.0-92.2 MEAN CORPUSCULAR HEMOGLOBIN (BEAKER) (test 30.2 pg 25.7-32.2 nhad=907) MEAN CORPUSCULAR HEMOGLOBIN CONC (BEAKER) (test 33.4 GM/DL 32.3-36.5 cqbn=499) RED CELL DISTRIBUTION WIDTH (BEAKER) (test 14.9 % 11.6-14.4 lcwi=881) PLATELET COUNT (BEAKER) (test rvnp=062) 636 K/CU MM 150-450 MEAN PLATELET VOLUME (BEAKER) (test zqwy=739) 9.5 fL 9.4-12.4 NUCLEATED RED BLOOD CELLS (BEAKER) (test 0 /100 WBC 0-0 mluo=152) NEUTROPHILS RELATIVE PERCENT (BEAKER) (test 72 % raav=408) LYMPHOCYTES RELATIVE PERCENT (BEAKER) (test 15 % xrhx=921) MONOCYTES RELATIVE PERCENT (BEAKER) (test 11 % yrwh=388) EOSINOPHILS RELATIVE PERCENT (BEAKER) (test 0 % gskq=520) BASOPHILS RELATIVE PERCENT (BEAKER) (test 0 % xqbf=543) NEUTROPHILS ABSOLUTE COUNT (BEAKER) (test 8.72 K/ L 1.78-5.38 uahs=680) LYMPHOCYTES ABSOLUTE COUNT (BEAKER) (test 1.87 K/ L 1.32-3.57 vvjx=349) MONOCYTES ABSOLUTE COUNT (BEAKER) (test 1.38 K/ L 0.30-0.82 jvrb=096) EOSINOPHILS ABSOLUTE COUNT (BEAKER) (test 0.02 K/ L 0.04-0.54 kklp=714) BASOPHILS ABSOLUTE COUNT (BEAKER) (test 0.05 K/ L 0.01-0.08 wltl=084) IMMATURE GRANULOCYTES-RELATIVE PERCENT (BEAKER) 1 % 0-1 (test xtti=2113) FINE NEEDLE ASPIRATION BY [id number] 13:21:00Medical Cytology Report Case: [id number] Authorizing Provider: Besys Hernandez MD Collected: 2017 [id number] Ordering Location: [address] Received : 09/08/2017 1814 Service Pathologist: Mir Anthony MD Specimen: Pancreas PANCREAS HEAD CYSTICLESION FNA BY CLINICIAN ( CYTOSPINS AND CELL BLOCK OF ASPIRATE): - NO MALIGNANT CELLS IDENTIFIED - The mucin stain shows focal weak staining Signing Pathologist Direct Phone Line : [phone] signed by Mir Anthony MD on 09/11/2017 at 1:21 PMThe cell block shows non-inflammed pancreatic acinar tissue.48958, 28278, 00812(4.9 X 4.8 cm) Cystic lesion in the pancreatic headPANCREAS HEAD CYSTIC LESION FNA25 mls in cytorich red; 4 cytospins, 1 mucin stain, cell blockCollected: [id number]: [id number], [facility] of [facility]ology, [address] [place] [id number], [facility], [address] [place] [address], [id number] 10:07:00 Test Item Value Reference Range Comments PARTIAL THROMBOPLASTIN TIME (BEAKER) (test 44.5 seconds 22.5-36.0 bcoa=608) BASIC METABOLIC [id number] 05:56:00 Test Item Value Reference Range Comments SODIUM (BEAKER) (test 138 meq/L 136-145 vmfz=609) POTASSIUM (BEAKER) (test 3.7 meq/L 3.5-5.1 zyjl=981) CHLORIDE (BEAKER) (test 105 meq/L 98-107 ubwp=906) CO2 (BEAKER) (test 25 meq/L 22-29 inxp=085) BLOOD UREA NITROGEN 7 mg/dL 7-21 (BEAKER) (test yrum=042) CREATININE (BEAKER) (test 0.62 mg/dL 0.57-1.25 lbnf=561) GLUCOSE RANDOM (BEAKER) 120 mg/dL 70-105 (test tsxq=374) CALCIUM (BEAKER) (test 8.7 mg/dL 8.4-10.2 dqza=176) EGFR (BEAKER) (test 145 mL/min/1.73 sq m ESTIMATED GFR IS NOT wbyc=8622) ACCURATE CREATININE CLEARANCE IN PREDICTING GLOMERULAR FILTRATION RATE. ESTIMATED GFR IS NOT APPLICABLE FOR DIALYSIS PATIENTS. CBC W/PLT COUNT & AUTO [id number] 05:42:00 Test Item Value Reference Range Comments WHITE BLOOD CELL COUNT (BEAKER) (test vttt=309) 4.6 K/ L 3.5-10.5 RED BLOOD CELL COUNT (BEAKER) (test shrm=211) 3.83 M/ L 4.63-6.08 HEMOGLOBIN (BEAKER) (test ocop=510) 11.7 GM/DL 13.7-17.5 HEMATOCRIT (BEAKER) (test fryd=919) 34.7 % 40.1-51.0 MEAN CORPUSCULAR VOLUME (BEAKER) (test gffz=670) 90.6 fL 79.0-92.2 MEAN CORPUSCULAR HEMOGLOBIN (BEAKER) (test 30.5 pg 25.7-32.2 fjfc=993) MEAN CORPUSCULAR HEMOGLOBIN CONC (BEAKER) (test 33.7 GM/DL 32.3-36.5 ruge=964) RED CELL DISTRIBUTION WIDTH (BEAKER) (test 14.3 % 11.6-14.4 bcab=821) PLATELET COUNT (BEAKER) (test gjyn=394) 378 K/CU MM 150-450 MEAN PLATELET VOLUME (BEAKER) (test acoj=688) 9.0 fL 9.4-12.4 NUCLEATED RED BLOOD CELLS (BEAKER) (test 0 /100 WBC 0-0 phwx=462) NEUTROPHILS RELATIVE PERCENT (BEAKER) (test 39 % rgom=248) LYMPHOCYTES RELATIVE PERCENT (BEAKER) (test 43 % yhcg=116) MONOCYTES RELATIVE PERCENT (BEAKER) (test 12 % unhq=959) EOSINOPHILS RELATIVE PERCENT (BEAKER) (test 5 % menp=866) BASOPHILS RELATIVE PERCENT (BEAKER) (test 1 % jwru=116) NEUTROPHILS ABSOLUTE COUNT (BEAKER) (test 1.81 K/ L 1.78-5.38 rxyn=072) LYMPHOCYTES ABSOLUTE COUNT (BEAKER) (test 2.01 K/ L 1.32-3.57 mohj=121) MONOCYTES ABSOLUTE COUNT (BEAKER) (test 0.55 K/ L 0.30-0.82 aiol=865) EOSINOPHILS ABSOLUTE COUNT (BEAKER) (test 0.21 K/ L 0.04-0.54 idcy=641) BASOPHILS ABSOLUTE COUNT (BEAKER) (test 0.05 K/ L 0.01-0.08 ynja=965) IMMATURE GRANULOCYTES-RELATIVE PERCENT (BEAKER) 0 % 0-1 (test lhuj=0685) FINE NEEDLE ASPIRATE (FNA) [id number] 20:00:00 Test Item Value Reference Range Comments CYTOLOGY RESULT POINTER (BEAKER) (test See Separate Report kefd=0786) [id number] 12:16:00 Test Item Value Reference Range Comments PARTIAL THROMBOPLASTIN TIME (BEAKER) (test 84.6 seconds 22.5-36.0 ppck=839) BASIC METABOLIC [id number] 05:21:00 Test Item Value Reference Range Comments SODIUM (BEAKER) (test 126 meq/L 136-145 scuh=885) POTASSIUM (BEAKER) (test 2.8 meq/L 3.5-5.1 ipgo=554) CHLORIDE (BEAKER) (test 99 meq/L 98-107 egwq=586) CO2 (BEAKER) (test 20 meq/L 22-29 qcvw=166) BLOOD UREA NITROGEN 3 mg/dL 7-21 (BEAKER) (test gxzq=162) CREATININE (BEAKER) (test 0.44 mg/dL 0.57-1.25 ebpm=581) GLUCOSE RANDOM (BEAKER) 75 mg/dL 70-105 (test fncm=135) CALCIUM (BEAKER) (test 6.8 mg/dL 8.4-10.2 umgf=093) EGFR (BEAKER) (test 216 mL/min/1.73 sq m ESTIMATED GFR IS NOT dwis=4630) ACCURATE CREATININE CLEARANCE IN PREDICTING GLOMERULAR FILTRATION RATE. ESTIMATED GFR IS NOT APPLICABLE FOR DIALYSIS PATIENTS. [id number] 05:13:00 Test Item Value Reference Range Comments PARTIAL THROMBOPLASTIN TIME (BEAKER) (test 110.2 seconds 22.5-36.0 xhft=426) CBC W/PLT COUNT & AUTO [id number] 04:45:00 Test Item Value Reference Range Comments WHITE BLOOD CELL COUNT (BEAKER) (test djkj=480) 4.4 K/ L 3.5-10.5 RED BLOOD CELL COUNT (BEAKER) (test dflb=967) 3.25 M/ L 4.63-6.08 HEMOGLOBIN (BEAKER) (test ylrt=238) 10.1 GM/DL 13.7-17.5 HEMATOCRIT (BEAKER) (test ndib=286) 29.9 % 40.1-51.0 MEAN CORPUSCULAR VOLUME (BEAKER) (test tdmv=942) 92.0 fL 79.0-92.2 MEAN CORPUSCULAR HEMOGLOBIN (BEAKER) (test 31.1 pg 25.7-32.2 yyqv=310) MEAN CORPUSCULAR HEMOGLOBIN CONC (BEAKER) (test 33.8 GM/DL 32.3-36.5 jbny=728) RED CELL DISTRIBUTION WIDTH (BEAKER) (test 14.5 % 11.6-14.4 bsve=929) PLATELET COUNT (BEAKER) (test qygf=449) 297 K/CU MM 150-450 MEAN PLATELET VOLUME (BEAKER) (test ngol=279) 9.1 fL 9.4-12.4 NUCLEATED RED BLOOD CELLS (BEAKER) (test 0 /100 WBC 0-0 ipys=892) NEUTROPHILS RELATIVE PERCENT (BEAKER) (test 44 % ocxc=161) LYMPHOCYTES RELATIVE PERCENT (BEAKER) (test 40 % gwtg=489) MONOCYTES RELATIVE PERCENT (BEAKER) (test 11 % ovuv=335) EOSINOPHILS RELATIVE PERCENT (BEAKER) (test 4 % cznx=237) BASOPHILS RELATIVE PERCENT (BEAKER) (test 1 % mlel=399) NEUTROPHILS ABSOLUTE COUNT (BEAKER) (test 1.96 K/ L 1.78-5.38 qruh=253) LYMPHOCYTES ABSOLUTE COUNT (BEAKER) (test 1.77 K/ L 1.32-3.57 uwmg=051) MONOCYTES ABSOLUTE COUNT (BEAKER) (test 0.49 K/ L 0.30-0.82 kpgi=716) EOSINOPHILS ABSOLUTE COUNT (BEAKER) (test 0.16 K/ L 0.04-0.54 tqde=620) BASOPHILS ABSOLUTE COUNT (BEAKER) (test 0.05 K/ L 0.01-0.08 ijzy=688) IMMATURE GRANULOCYTES-RELATIVE PERCENT (BEAKER) 0 % 0-1 (test ewbu=1523) [id number] 21:32:00 Test Item Value Reference Range Comments PARTIAL THROMBOPLASTIN TIME (BEAKER) (test 118.1 seconds 22.5-36.0 ywtr=581) BASIC METABOLIC [id number] 14:23:00 Test Item Value Reference Range Comments SODIUM (BEAKER) (test 139 meq/L 136-145 wbul=184) POTASSIUM (BEAKER) (test 3.6 meq/L 3.5-5.1 kpzg=647) CHLORIDE (BEAKER) (test 103 meq/L 98-107 vfsl=525) CO2 (BEAKER) (test 29 meq/L 22-29 nihb=288) BLOOD UREA NITROGEN 3 mg/dL 7-21 (BEAKER) (test iquz=127) CREATININE (BEAKER) (test 0.54 mg/dL 0.57-1.25 xojw=304) GLUCOSE RANDOM (BEAKER) 108 mg/dL 70-105 (test erpl=590) CALCIUM (BEAKER) (test 8.6 mg/dL 8.4-10.2 wzef=508) EGFR (BEAKER) (test 170 mL/min/1.73 sq m ESTIMATED GFR IS NOT gopq=2490) ACCURATE CREATININE CLEARANCE IN PREDICTING GLOMERULAR FILTRATION RATE. ESTIMATED GFR IS NOT APPLICABLE FOR DIALYSIS PATIENTS. [id number] 14:06:00 Test Item Value Reference Range Comments PARTIAL THROMBOPLASTIN TIME (BEAKER) (test 66.8 seconds 22.5-36.0 gkps=488) CBC W/PLT COUNT & AUTO [id number] 13:57:00 Test Item Value Reference Range Comments WHITE BLOOD CELL COUNT (BEAKER) (test hcaf=563) 4.6 K/ L 3.5-10.5 RED BLOOD CELL COUNT (BEAKER) (test oanh=477) 3.95 M/ L 4.63-6.08 HEMOGLOBIN (BEAKER) (test kjbb=069) 11.9 GM/DL 13.7-17.5 HEMATOCRIT (BEAKER) (test jhnu=267) 36.5 % 40.1-51.0 MEAN CORPUSCULAR VOLUME (BEAKER) (test fkyy=592) 92.4 fL 79.0-92.2 MEAN CORPUSCULAR HEMOGLOBIN (BEAKER) (test 30.1 pg 25.7-32.2 cgre=378) MEAN CORPUSCULAR HEMOGLOBIN CONC (BEAKER) (test 32.6 GM/DL 32.3-36.5 ctgk=293) RED CELL DISTRIBUTION WIDTH (BEAKER) (test 14.2 % 11.6-14.4 alsc=847) PLATELET COUNT (BEAKER) (test ftmo=111) 347 K/CU MM 150-450 MEAN PLATELET VOLUME (BEAKER) (test cuxo=069) 9.2 fL 9.4-12.4 NUCLEATED RED BLOOD CELLS (BEAKER) (test 0 /100 WBC 0-0 utgg=437) NEUTROPHILS RELATIVE PERCENT (BEAKER) (test 44 % azqi=782) LYMPHOCYTES RELATIVE PERCENT (BEAKER) (test 37 % nqnk=816) MONOCYTES RELATIVE PERCENT (BEAKER) (test 13 % mdsr=741) EOSINOPHILS RELATIVE PERCENT (BEAKER) (test 5 % cdgi=174) BASOPHILS RELATIVE PERCENT (BEAKER) (test 1 % ckhm=791) NEUTROPHILS ABSOLUTE COUNT (BEAKER) (test 1.99 K/ L 1.78-5.38 ecrb=229) LYMPHOCYTES ABSOLUTE COUNT (BEAKER) (test 1.69 K/ L 1.32-3.57 nfag=808) MONOCYTES ABSOLUTE COUNT (BEAKER) (test 0.61 K/ L 0.30-0.82 wkbc=882) EOSINOPHILS ABSOLUTE COUNT (BEAKER) (test 0.21 K/ L 0.04-0.54 cfmc=301) BASOPHILS ABSOLUTE COUNT (BEAKER) (test 0.05 K/ L 0.01-0.08 tcwa=962) IMMATURE GRANULOCYTES-RELATIVE PERCENT (BEAKER) 0 % 0-1 (test uswe=2037) BASIC METABOLIC [id number] 07:03:00 Test Item Value Reference Range Comments SODIUM (BEAKER) (test 140 meq/L 136-145 uzgy=233) POTASSIUM (BEAKER) (test 3.4 meq/L 3.5-5.1 kvxa=350) CHLORIDE (BEAKER) (test 100 meq/L 98-107 omiv=799) CO2 (BEAKER) (test 30 meq/L 22-29 ljjx=368) BLOOD UREA NITROGEN 3 mg/dL 7-21 (BEAKER) (test zuva=648) CREATININE (BEAKER) (test 0.56 mg/dL 0.57-1.25 sxrd=399) GLUCOSE RANDOM (BEAKER) 102 mg/dL 70-105 (test kuyo=088) CALCIUM (BEAKER) (test 9.2 mg/dL 8.4-10.2 hnou=486) EGFR (BEAKER) (test 163 mL/min/1.73 sq m ESTIMATED GFR IS NOT qzry=0033) ACCURATE CREATININE CLEARANCE IN PREDICTING GLOMERULAR FILTRATION RATE. ESTIMATED GFR IS NOT APPLICABLE FOR DIALYSIS PATIENTS. [id number] 06:47:00 Test Item Value Reference Range Comments PARTIAL THROMBOPLASTIN TIME (BEAKER) (test 46.7 seconds 22.5-36.0 pgap=058) [id number] 00:50:00 Test Item Value Reference Range Comments PARTIAL THROMBOPLASTIN TIME (BEAKER) (test 53.5 seconds 22.5-36.0 ecqe=389) [id number] 17:34:00 Test Item Value Reference Range Comments PARTIAL THROMBOPLASTIN TIME (BEAKER) (test 45.8 seconds 22.5-36.0 oplm=022) [id number] 08:32:00 Test Item Value Reference Range Comments PARTIAL THROMBOPLASTIN TIME (BEAKER) (test 38.7 seconds 22.5-36.0 zxtw=960) Prior to initiating heparinBASIC METABOLIC [id number] 06:05:00 Test Item Value Reference Range Comments SODIUM (BEAKER) (test 136 meq/L 136-145 xcjn=906) POTASSIUM (BEAKER) (test 3.3 meq/L 3.5-5.1 wysf=763) CHLORIDE (BEAKER) (test 102 meq/L 98-107 jtfr=412) CO2 (BEAKER) (test 26 meq/L 22-29 bykb=549) BLOOD UREA NITROGEN 2 mg/dL 7-21 (BEAKER) (test upyv=228) CREATININE (BEAKER) (test 0.55 mg/dL 0.57-1.25 pzxw=964) GLUCOSE RANDOM (BEAKER) 124 mg/dL 70-105 (test rcez=877) CALCIUM (BEAKER) (test 8.0 mg/dL 8.4-10.2 abqz=866) EGFR (BEAKER) (test 167 mL/min/1.73 sq m ESTIMATED GFR IS NOT zbfb=5718) ACCURATE CREATININE CLEARANCE IN PREDICTING GLOMERULAR FILTRATION RATE. ESTIMATED GFR IS NOT APPLICABLE FOR DIALYSIS PATIENTS. BLOOD [id number] 06:00:00 Test Item Value Reference Range Comments CULTURE (BEAKER) (test opvh=4924) No growth in 5 days BLOOD [id number] 06:00:00 Test Item Value Reference Range Comments CULTURE (BEAKER) (test tigt=4060) No growth in 5 days [id number] 03:55:00 Test Item Value Reference Range Comments PHOSPHORUS (BEAKER) (test bvuz=998) 2.8 mg/dL 2.3-4.7 [id number] 03:55:00 Test Item Value Reference Range Comments MAGNESIUM (BEAKER) (test firi=330) 1.3 mg/dL 1.6-2.6 BASIC METABOLIC [id number] 03:55:00 Test Item Value Reference Range Comments SODIUM (BEAKER) (test 137 meq/L 136-145 hylf=171) POTASSIUM (BEAKER) (test 3.2 meq/L 3.5-5.1 noqc=697) CHLORIDE (BEAKER) (test 103 meq/L 98-107 ucxd=835) CO2 (BEAKER) (test 22 meq/L 22-29 lzbj=986) BLOOD UREA NITROGEN 3 mg/dL 7-21 (BEAKER) (test ddsi=018) CREATININE (BEAKER) (test 0.51 mg/dL 0.57-1.25 fnbs=737) GLUCOSE RANDOM (BEAKER) 65 mg/dL 70-105 (test rwoy=181) CALCIUM (BEAKER) (test 8.0 mg/dL 8.4-10.2 iptz=088) EGFR (BEAKER) (test 182 mL/min/1.73 sq m ESTIMATED GFR IS NOT ljsq=6466) ACCURATE CREATININE CLEARANCE IN PREDICTING GLOMERULAR FILTRATION RATE. ESTIMATED GFR IS NOT APPLICABLE FOR DIALYSIS PATIENTS. [id number] 03:55:00 Test Item Value Reference Range Comments LIPASE (BEAKER) (test jhwt=561) 210 U/L 8-78 CBC W/PLT COUNT & AUTO [id number] 03:37:00 Test Item Value Reference Range Comments WHITE BLOOD CELL COUNT (BEAKER) (test wnjp=955) 6.1 K/ L 3.5-10.5 RED BLOOD CELL COUNT (BEAKER) (test ygst=502) 3.63 M/ L 4.63-6.08 HEMOGLOBIN (BEAKER) (test opxx=393) 11.1 GM/DL 13.7-17.5 HEMATOCRIT (BEAKER) (test they=408) 33.0 % 40.1-51.0 MEAN CORPUSCULAR VOLUME (BEAKER) (test tkfu=695) 90.9 fL 79.0-92.2 MEAN CORPUSCULAR HEMOGLOBIN (BEAKER) (test 30.6 pg 25.7-32.2 jnxu=213) MEAN CORPUSCULAR HEMOGLOBIN CONC (BEAKER) (test 33.6 GM/DL 32.3-36.5 ajwm=562) RED CELL DISTRIBUTION WIDTH (BEAKER) (test 14.3 % 11.6-14.4 fejt=556) PLATELET COUNT (BEAKER) (test odec=865) 262 K/CU MM 150-450 MEAN PLATELET VOLUME (BEAKER) (test vtcw=099) 9.1 fL 9.4-12.4 NUCLEATED RED BLOOD CELLS (BEAKER) (test 0 /100 WBC 0-0 xcdt=042) NEUTROPHILS RELATIVE PERCENT (BEAKER) (test 69 % ojeb=629) LYMPHOCYTES RELATIVE PERCENT (BEAKER) (test 17 % mlbu=442) MONOCYTES RELATIVE PERCENT (BEAKER) (test 10 % yafh=988) EOSINOPHILS RELATIVE PERCENT (BEAKER) (test 3 % cquf=936) BASOPHILS RELATIVE PERCENT (BEAKER) (test 0 % fprg=026) NEUTROPHILS ABSOLUTE COUNT (BEAKER) (test 4.21 K/ L 1.78-5.38 tolc=780) LYMPHOCYTES ABSOLUTE COUNT (BEAKER) (test 1.04 K/ L 1.32-3.57 rghe=917) MONOCYTES ABSOLUTE COUNT (BEAKER) (test 0.60 K/ L 0.30-0.82 iofv=688) EOSINOPHILS ABSOLUTE COUNT (BEAKER) (test 0.18 K/ L 0.04-0.54 buhs=335) BASOPHILS ABSOLUTE COUNT (BEAKER) (test 0.02 K/ L 0.01-0.08 dosg=711) IMMATURE GRANULOCYTES-RELATIVE PERCENT (BEAKER) 1 % 0-1 (test qqqq=9964) CT, ABDOMEN - PELVIS, PANCREAS [id number] 00:22:00Reason for exam:-&gt ;pancreatitisFINAL REPORT CT, ABDOMEN [...] Verified Date/ Time: 09/04/2017 00:22:52 Reading Location: [address] Reading Room [id number] 06:00:00 Test Item Value Reference Range Comments MAGNESIUM (BEAKER) (test 1.6 mg/dL 1.6-2.6 Specimen slightly hemolyzed uuvj=981) [id number] 06:00:00 Test Item Value Reference Range Comments PHOSPHORUS (BEAKER) (test 3.4 mg/dL 2.3-4.7 Specimen slightly hemolyzed tyrd=303) BASIC METABOLIC [id number] 06:00:00 Test Item Value Reference Range Comments SODIUM (BEAKER) (test 132 meq/L 136-145 tmse=675) POTASSIUM (BEAKER) (test 3.9 meq/L 3.5-5.1 Specimen slightly ynhp=282) hemolyzed CHLORIDE (BEAKER) (test 101 meq/L 98-107 ohfl=634) CO2 (BEAKER) (test 22 meq/L 22-29 bsdf=960) BLOOD UREA NITROGEN 7 mg/dL 7-21 (BEAKER) (test fmqr=887) CREATININE (BEAKER) (test 0.49 mg/dL 0.57-1.25 Specimen slightly scty=064) hemolyzed GLUCOSE RANDOM (BEAKER) 59 mg/dL 70-105 (test eoqb=380) CALCIUM (BEAKER) (test 8.1 mg/dL 8.4-10.2 vegh=631) EGFR (BEAKER) (test 190 mL/min/1.73 sq m ESTIMATED GFR IS NOT tvzm=4462) ACCURATE CREATININE CLEARANCE IN PREDICTING GLOMERULAR FILTRATION RATE. ESTIMATED GFR IS NOT APPLICABLE FOR DIALYSIS PATIENTS. HEPATIC FUNCTION [id number] 06:00:00 Test Item Value Reference Range Comments TOTAL PROTEIN (BEAKER) (test 5.7 gm/dL 6.0-8.3 Specimen slightly hemolyzed xehk=726) ALBUMIN (BEAKER) (test 3.0 g/dL 3.5-5.0 Specimen slightly hemolyzed amri=6981) BILIRUBIN TOTAL (BEAKER) (test 1.2 mg/dL 0.2-1.2 Specimen slightly hemolyzed parl=636) BILIRUBIN DIRECT (BEAKER) (test 0.4 mg/dL 0.1-0.5 Specimen slightly hemolyzed ewko=578) ALKALINE PHOSPHATASE (BEAKER) 62 U/L 40-150 (test boql=855) AST (SGOT) (BEAKER) (test 18 U/L 5-34 Specimen slightly hemolyzed rpwd=716) ALT (SGPT) (BEAKER) (test < U/L 6-55 Specimen slightly hemolyzed ubfz=632) CBC W/PLT COUNT & AUTO [id number] 05:43:00 Test Item Value Reference Range Comments WHITE BLOOD CELL COUNT (BEAKER) (test guon=873) 8.4 K/ L 3.5-10.5 RED BLOOD CELL COUNT (BEAKER) (test uucj=497) 3.68 M/ L 4.63-6.08 HEMOGLOBIN (BEAKER) (test yayl=982) 11.6 GM/DL 13.7-17.5 HEMATOCRIT (BEAKER) (test uclk=685) 34.4 % 40.1-51.0 MEAN CORPUSCULAR VOLUME (BEAKER) (test zlhl=300) 93.5 fL 79.0-92.2 MEAN CORPUSCULAR HEMOGLOBIN (BEAKER) (test 31.5 pg 25.7-32.2 vrzx=707) MEAN CORPUSCULAR HEMOGLOBIN CONC (BEAKER) (test 33.7 GM/DL 32.3-36.5 tyts=135) RED CELL DISTRIBUTION WIDTH (BEAKER) (test 14.6 % 11.6-14.4 ovps=249) PLATELET COUNT (BEAKER) (test oshm=583) 221 K/CU MM 150-450 MEAN PLATELET VOLUME (BEAKER) (test sswp=851) 9.5 fL 9.4-12.4 NUCLEATED RED BLOOD CELLS (BEAKER) (test 0 /100 WBC 0-0 rqxs=105) NEUTROPHILS RELATIVE PERCENT (BEAKER) (test 75 % gxqw=062) LYMPHOCYTES RELATIVE PERCENT (BEAKER) (test 14 % kqus=638) MONOCYTES RELATIVE PERCENT (BEAKER) (test 10 % jbzf=024) EOSINOPHILS RELATIVE PERCENT (BEAKER) (test 1 % osov=289) BASOPHILS RELATIVE PERCENT (BEAKER) (test 0 % afic=823) NEUTROPHILS ABSOLUTE COUNT (BEAKER) (test 6.27 K/ L 1.78-5.38 qdbx=522) LYMPHOCYTES ABSOLUTE COUNT (BEAKER) (test 1.16 K/ L 1.32-3.57 zbjl=149) MONOCYTES ABSOLUTE COUNT (BEAKER) (test 0.87 K/ L 0.30-0.82 klqh=025) EOSINOPHILS ABSOLUTE COUNT (BEAKER) (test 0.07 K/ L 0.04-0.54 qgeo=662) BASOPHILS ABSOLUTE COUNT (BEAKER) (test 0.03 K/ L 0.01-0.08 mpet=585) IMMATURE GRANULOCYTES-RELATIVE PERCENT (BEAKER) 0 % 0-1 (test iwpg=4135) POCT-GLUCOSE [id number] 07:30:00 Test Item Value Reference Range Comments POC-GLUCOSE METER (BEAKER) 140 mg/dL 70-110 TESTED AT [address] (test iaqw=2289) [place] [id number] POCT-GLUCOSE [id number] 07:30:00 Test Item Value Reference Range Comments POC-GLUCOSE METER (BEAKER) 59 mg/dL 70-110 TESTED AT [address] (test bahf=5233) [place] [id number] 05:16:00 Test Item Value Reference Range Comments MAGNESIUM (BEAKER) (test 1.7 mg/dL 1.6-2.6 Specimen slightly hemolyzed nsjm=993) [id number] 05:16:00 Test Item Value Reference Range Comments PHOSPHORUS (BEAKER) (test 3.7 mg/dL 2.3-4.7 Specimen slightly hemolyzed zpmf=353) BASIC METABOLIC [id number] 05:16:00 Test Item Value Reference Range Comments SODIUM (BEAKER) (test 136 meq/L 136-145 imcb=643) POTASSIUM (BEAKER) (test 4.1 meq/L 3.5-5.1 Specimen slightly hpfb=350) hemolyzed CHLORIDE (BEAKER) (test 105 meq/L 98-107 lywi=298) CO2 (BEAKER) (test 21 meq/L 22-29 axgg=913) BLOOD UREA NITROGEN 12 mg/dL 7-21 (BEAKER) (test xqzl=114) CREATININE (BEAKER) (test 0.62 mg/dL 0.57-1.25 Specimen slightly sjfj=868) hemolyzed GLUCOSE RANDOM (BEAKER) 65 mg/dL 70-105 (test bgtm=892) CALCIUM (BEAKER) (test 8.4 mg/dL 8.4-10.2 tzlh=315) EGFR (BEAKER) (test 145 mL/min/1.73 sq m ESTIMATED GFR IS NOT dxwp=6015) ACCURATE CREATININE CLEARANCE IN PREDICTING GLOMERULAR FILTRATION RATE. ESTIMATED GFR IS NOT APPLICABLE FOR DIALYSIS PATIENTS. HEPATIC FUNCTION [id number] 05:16:00 Test Item Value Reference Range Comments TOTAL PROTEIN (BEAKER) (test 5.9 gm/dL 6.0-8.3 Specimen slightly hemolyzed trkh=866) ALBUMIN (BEAKER) (test 3.3 g/dL 3.5-5.0 Specimen slightly hemolyzed bbzh=4030) BILIRUBIN TOTAL (BEAKER) (test 1.4 mg/dL 0.2-1.2 Specimen slightly hemolyzed bcor=518) BILIRUBIN DIRECT (BEAKER) (test 0.5 mg/dL 0.1-0.5 Specimen slightly hemolyzed udvv=065) ALKALINE PHOSPHATASE (BEAKER) 66 U/L 40-150 (test edwq=617) AST (SGOT) (BEAKER) (test 16 U/L 5-34 Specimen slightly hemolyzed yxbs=323) ALT (SGPT) (BEAKER) (test 6 U/L 6-55 Specimen slightly hemolyzed peaj=775) CBC W/PLT COUNT & AUTO [id number] 04:45:00 Test Item Value Reference Range Comments WHITE BLOOD CELL COUNT (BEAKER) (test hjjd=683) 9.1 K/ L 3.5-10.5 RED BLOOD CELL COUNT (BEAKER) (test bhpu=212) 4.04 M/ L 4.63-6.08 HEMOGLOBIN (BEAKER) (test hsaw=682) 12.3 GM/DL 13.7-17.5 HEMATOCRIT (BEAKER) (test zyyg=691) 38.1 % 40.1-51.0 MEAN CORPUSCULAR VOLUME (BEAKER) (test xvjd=069) 94.3 fL 79.0-92.2 MEAN CORPUSCULAR HEMOGLOBIN (BEAKER) (test 30.4 pg 25.7-32.2 hrbu=123) MEAN CORPUSCULAR HEMOGLOBIN CONC (BEAKER) (test 32.3 GM/DL 32.3-36.5 wvny=001) RED CELL DISTRIBUTION WIDTH (BEAKER) (test 15.7 % 11.6-14.4 rexd=335) PLATELET COUNT (BEAKER) (test tvoa=118) 243 K/CU MM 150-450 MEAN PLATELET VOLUME (BEAKER) (test hiuw=519) 9.5 fL 9.4-12.4 NUCLEATED RED BLOOD CELLS (BEAKER) (test 0 /100 WBC 0-0 fvdf=162) NEUTROPHILS RELATIVE PERCENT (BEAKER) (test 72 % beys=594) LYMPHOCYTES RELATIVE PERCENT (BEAKER) (test 16 % mpgv=481) MONOCYTES RELATIVE PERCENT (BEAKER) (test 10 % thfp=152) EOSINOPHILS RELATIVE PERCENT (BEAKER) (test 1 % ipsp=658) BASOPHILS RELATIVE PERCENT (BEAKER) (test 0 % eahg=901) NEUTROPHILS ABSOLUTE COUNT (BEAKER) (test 6.58 K/ L 1.78-5.38 dsnu=446) LYMPHOCYTES ABSOLUTE COUNT (BEAKER) (test 1.48 K/ L 1.32-3.57 ctlq=244) MONOCYTES ABSOLUTE COUNT (BEAKER) (test 0.95 K/ L 0.30-0.82 helt=215) EOSINOPHILS ABSOLUTE COUNT (BEAKER) (test 0.05 K/ L 0.04-0.54 oeur=940) BASOPHILS ABSOLUTE COUNT (BEAKER) (test 0.04 K/ L 0.01-0.08 vudr=593) IMMATURE GRANULOCYTES-RELATIVE PERCENT (BEAKER) 0 % 0-1 (test tdyz=0668) HEMOGLOBIN [id number] 10:23:00 Test Item Value Reference Range Comments HEMOGLOBIN A1C (BEAKER) (test aizy=176) 4.7 % 4.3-6.1 U/S, ABDOMINAL, [id number] 09:53:00Abdomen limited area? Add comment if clarification [...] Nelson MDReport Verified Date/Time:09/01/2017 09:53:12 Reading Location: [address] Ultrasound Reading Room SEDIMENTATION [id number] 08:01:00 Test Item Value Reference Range Comments SEDIMENTATION RATE, ERYTHROCYTE (BEAKER) (test 3 mm/HR 0-15 xhde=690) TSH/FREE T4 IF [id number] 04:12:00 Test Item Value Reference Range Comments THYROID STIMULATING HORMONE (BEAKER) (test 0.36 uIU/mL 0.35-4.94 urlg=488) CREATINE KINASE (CK), TOTAL AND [id number] 04:03:00 Test Item Value Reference Range Comments CREATINE KINASE TOTAL (BEAKER) (test yalq=787) 29 U/L 29-200 CREATINE KINASE-MB (BEAKER) (test vwlh=388) 0.4 ng/mL 0.0-6.6 CREATINE KINASE-MB INDEX (BEAKER) (test hrvr=998) 1.4 % CK-MB Reference Range:<6.7 Normal6.7-10.0 Borderline>10.0 AbnormalTROPONIN [id number] 04:03:00 Test Item Value Reference Range Comments TROPONIN I (BEAKER) (test zuhm=409) < ng/mL 0.00-0.03 Troponin I (TnI) levels [...] failure, acidosis, acute neurological disease, and persistent tachyarrhythmia.[id number] 03:53:00 Test Item Value Reference Range Comments PHOSPHORUS (BEAKER) (test oamx=164) 3.5 mg/dL 2.3-4.7 [id number] 03:53:00 Test Item Value Reference Range Comments MAGNESIUM (BEAKER) (test loan=711) 1.7 mg/dL 1.6-2.6 BASIC METABOLIC [id number] 03:53:00 Test Item Value Reference Range Comments SODIUM (BEAKER) (test 137 meq/L 136-145 ouhc=600) POTASSIUM (BEAKER) (test 3.8 meq/L 3.5-5.1 gfpt=339) CHLORIDE (BEAKER) (test 105 meq/L 98-107 ybqv=911) CO2 (BEAKER) (test 23 meq/L 22-29 qfvq=582) BLOOD UREA NITROGEN 7 mg/dL 7-21 (BEAKER) (test asnr=980) CREATININE (BEAKER) (test 0.62 mg/dL 0.57-1.25 vtwf=194) GLUCOSE RANDOM (BEAKER) 102 mg/dL 70-105 (test zgbb=514) CALCIUM (BEAKER) (test 9.0 mg/dL 8.4-10.2 minc=721) EGFR (BEAKER) (test 145 mL/min/1.73 sq m ESTIMATED GFR IS NOT scbu=0878) ACCURATE CREATININE CLEARANCE IN PREDICTING GLOMERULAR FILTRATION RATE. ESTIMATED GFR IS NOT APPLICABLE FOR DIALYSIS PATIENTS. LIPID [id number] 03:53:00 Test Item Value Reference Range Comments TRIGLYCERIDES (BEAKER) (test qndf=903) 76 mg/dL CHOLESTEROL (BEAKER) (test guct=732) 118 mg/dL HDL CHOLESTEROL (BEAKER) (test orne=787) 37 mg/dL LDL CHOLESTEROL CALCULATED (BEAKER) (test 66 mg/dL abbh=197) Triglyceride Reference Range: Low Risk <150 Borderline 150- 199 High Risk 200-499 Very High Risk >=500Cholesterol Reference Range: Low Risk <200 Borderline 200-239 High Risk > 240HDL Cholesterol Reference Range: Low Risk >=60 High Risk <40LDL Cholesterol Reference Range: Optimal <100 Near Optimal 100-129 Borderline 130-159 High 160-189 Very High >=190HEPATIC FUNCTION [id number] 03:53:00 Test Item Value Reference Range Comments TOTAL PROTEIN (BEAKER) (test ikhm=782) 6.8 gm/dL 6.0-8.3 ALBUMIN (BEAKER) (test flsa=9595) 3.9 g/dL 3.5-5.0 BILIRUBIN TOTAL (BEAKER) (test mebz=121) 1.2 mg/dL 0.2-1.2 BILIRUBIN DIRECT (BEAKER) (test wvbe=299) 0.5 mg/dL 0.1-0.5 ALKALINE PHOSPHATASE (BEAKER) (test ukti=032) 81 U/L 40-150 AST (SGOT) (BEAKER) (test bfpf=311) 13 U/L 5-34 ALT (SGPT) (BEAKER) (test uszb=528) 6 U/L 6-55 [id number] 03:53:00 Test Item Value Reference Range Comments AMYLASE (BEAKER) (test exsi=253) 383 U/L 25-125 [id number] 03:53:00 Test Item Value Reference Range Comments LIPASE (BEAKER) (test qxby=694) 266 U/L 8-78 C-REACTIVE [id number] 03:53:00 Test Item Value Reference Range Comments C-REACTIVE PROTEIN (BEAKER) (test fefp=865) 0.23 mg/dL 0.00-0.50 CBC W/PLT COUNT & AUTO [id number] 03:38:00 Test Item Value Reference Range Comments WHITE BLOOD CELL COUNT (BEAKER) (test jcmn=912) 10.7 K/ L 3.5-10.5 RED BLOOD CELL COUNT (BEAKER) (test mqlw=672) 4.45 M/ L 4.63-6.08 HEMOGLOBIN (BEAKER) (test yqfv=553) 13.6 GM/DL 13.7-17.5 HEMATOCRIT (BEAKER) (test bjzy=565) 40.4 % 40.1-51.0 MEAN CORPUSCULAR VOLUME (BEAKER) (test epjo=155) 90.8 fL 79.0-92.2 MEAN CORPUSCULAR HEMOGLOBIN (BEAKER) (test 30.6 pg 25.7-32.2 rpfl=745) MEAN CORPUSCULAR HEMOGLOBIN CONC (BEAKER) (test 33.7 GM/DL 32.3-36.5 mxiv=323) RED CELL DISTRIBUTION WIDTH (BEAKER) (test 15.5 % 11.6-14.4 ekoh=102) PLATELET COUNT (BEAKER) (test bqke=596) 277 K/CU MM 150-450 MEAN PLATELET VOLUME (BEAKER) (test hnmj=714) 9.7 fL 9.4-12.4 NUCLEATED RED BLOOD CELLS (BEAKER) (test 0 /100 WBC 0-0 ppwk=678) NEUTROPHILS RELATIVE PERCENT (BEAKER) (test 70 % sjit=804) LYMPHOCYTES RELATIVE PERCENT (BEAKER) (test 18 % rfqe=560) MONOCYTES RELATIVE PERCENT (BEAKER) (test 11 % cxrb=736) EOSINOPHILS RELATIVE PERCENT (BEAKER) (test 0 % wjtw=413) BASOPHILS RELATIVE PERCENT (BEAKER) (test 0 % tekk=535) NEUTROPHILS ABSOLUTE COUNT (BEAKER) (test 7.46 K/ L 1.78-5.38 spbs=256) LYMPHOCYTES ABSOLUTE COUNT (BEAKER) (test 1.93 K/ L 1.32-3.57 ysvn=319) MONOCYTES ABSOLUTE COUNT (BEAKER) (test 1.17 K/ L 0.30-0.82 axpd=860) EOSINOPHILS ABSOLUTE COUNT (BEAKER) (test 0.02 K/ L 0.04-0.54 fere=733) BASOPHILS ABSOLUTE COUNT (BEAKER) (test 0.03 K/ L 0.01-0.08 vpiy=411) IMMATURE GRANULOCYTES-RELATIVE PERCENT (BEAKER) 0 % 0-1 (test gyll=8032) COMPREHENSIVE METABOLIC [id number] 14:02:00 Test Item Value Reference Range Comments TOTAL PROTEIN (BEAKER) 7.8 gm/dL 6.0-8.3 (test tpmi=187) ALBUMIN (BEAKER) (test 3.9 g/dL 3.5-5.0 dozj=2479) ALKALINE PHOSPHATASE 62 U/L 40-150 (BEAKER) (test lrnu=632) BILIRUBIN TOTAL (BEAKER) 0.3 mg/dL 0.2-1.2 (test lltc=126) SODIUM (BEAKER) (test 139 meq/L 136-145 ytgh=161) POTASSIUM (BEAKER) (test 4.2 meq/L 3.5-5.1 advg=585) CHLORIDE (BEAKER) (test 104 meq/L 98-107 semo=444) CO2 (BEAKER) (test 26 meq/L 22-29 jmar=033) BLOOD UREA NITROGEN 9 mg/dL 7-21 (BEAKER) (test gznx=526) CREATININE (BEAKER) (test 0.64 mg/dL 0.57-1.25 rjez=012) GLUCOSE RANDOM (BEAKER) 78 mg/dL 70-105 (test sbvs=609) CALCIUM (BEAKER) (test 9.5 mg/dL 8.4-10.2 vwvt=046) AST (SGOT) (BEAKER) (test 18 U/L 5-34 znsk=289) ALT (SGPT) (BEAKER) (test 8 U/L 6-55 ppuz=413) EGFR (BEAKER) (test 141 mL/min/1.73 sq ESTIMATED GFR IS NOT atbw=1874) m ACCURATE CREATININE CLEARANCE IN PREDICTING GLOMERULAR FILTRATION RATE. ESTIMATED GFR IS NOT APPLICABLE FOR DIALYSIS PATIENTS. COMPREHENSIVE METABOLIC [id number] 06:08:00 Test Item Value Reference Range Comments TOTAL PROTEIN (BEAKER) 7.0 gm/dL 6.0-8.3 Specimen slightly (test zdoi=109) hemolyzed ALBUMIN (BEAKER) (test 3.4 g/dL 3.5-5.0 Specimen slightly lpau=6779) hemolyzed ALKALINE PHOSPHATASE 58 U/L 40-150 (BEAKER) (test ibcr=027) BILIRUBIN TOTAL (BEAKER) 0.4 mg/dL 0.2-1.2 Specimen slightly (test yzys=581) hemolyzed SODIUM (BEAKER) (test 139 meq/L 136-145 itcl=038) POTASSIUM (BEAKER) (test 4.5 meq/L 3.5-5.1 Specimen slightly bbfy=907) hemolyzed CHLORIDE (BEAKER) (test 103 meq/L 98-107 naow=609) CO2 (BEAKER) (test 27 meq/L 22-29 gkcj=763) BLOOD UREA NITROGEN 2 mg/dL 7-21 (BEAKER) (test yjze=738) CREATININE (BEAKER) (test 0.55 mg/dL 0.57-1.25 Specimen slightly drah=390) hemolyzed GLUCOSE RANDOM (BEAKER) 85 mg/dL 70-105 (test mnkv=274) CALCIUM (BEAKER) (test 9.3 mg/dL 8.4-10.2 sejb=839) AST (SGOT) (BEAKER) (test 18 U/L 5-34 Specimen slightly kecm=078) hemolyzed ALT (SGPT) (BEAKER) (test 8 U/L 6-55 Specimen slightly kqed=677) hemolyzed EGFR (BEAKER) (test 168 mL/min/1.73 sq ESTIMATED GFR IS NOT ttjx=9714) m ACCURATE CREATININE CLEARANCE IN PREDICTING GLOMERULAR FILTRATION RATE. ESTIMATED GFR IS NOT APPLICABLE FOR DIALYSIS PATIENTS. CBC (HEMOGRAM ONLY)2017-05-17 05:20:00 Test Item Value Reference Range Comments WHITE BLOOD CELL COUNT (BEAKER) (test vijt=139) 6.4 K/ L 3.5-10.5 RED BLOOD CELL COUNT (BEAKER) (test vdmp=744) 3.84 M/ L 4.63-6.08 HEMOGLOBIN (BEAKER) (test utpb=438) 11.5 GM/DL 13.7-17.5 HEMATOCRIT (BEAKER) (test tigk=013) 35.2 % 40.1-51.0 MEAN CORPUSCULAR VOLUME (BEAKER) (test lwnx=433) 91.7 fL 79.0-92.2 MEAN CORPUSCULAR HEMOGLOBIN (BEAKER) (test 29.9 pg 25.7-32.2 pgiq=878) MEAN CORPUSCULAR HEMOGLOBIN CONC (BEAKER) (test 32.7 GM/DL 32.3-36.5 mfwe=307) RED CELL DISTRIBUTION WIDTH (BEAKER) (test 14.1 % 11.6-14.4 ohdb=875) PLATELET COUNT (BEAKER) (test lonb=346) 434 K/CU MM 150-450 MEAN PLATELET VOLUME (BEAKER) (test ftpk=483) 9.4 fL 9.4-12.4 NUCLEATED RED BLOOD CELLS (BEAKER) (test 0 /100 WBC 0-0 kozg=946) HEPATIC FUNCTION [id number] 11:22:00 Test Item Value Reference Range Comments TOTAL PROTEIN (BEAKER) (test uzup=680) 6.9 gm/dL 6.0-8.3 ALBUMIN (BEAKER) (test uquy=0300) 3.4 g/dL 3.5-5.0 BILIRUBIN TOTAL (BEAKER) (test agcr=599) 0.4 mg/dL 0.2-1.2 BILIRUBIN DIRECT (BEAKER) (test hvus=541) 0.2 mg/dL 0.1-0.5 ALKALINE PHOSPHATASE (BEAKER) (test heie=706) 65 U/L 40-150 AST (SGOT) (BEAKER) (test mmei=046) 14 U/L 5-34 ALT (SGPT) (BEAKER) (test kyqr=142) 8 U/L 6-55 CBC W/PLT COUNT & AUTO [id number] 11:16:00 Test Item Value Reference Range Comments WHITE BLOOD CELL COUNT (BEAKER) (test wwbp=446) 7.0 K/ L 3.5-10.5 RED BLOOD CELL COUNT (BEAKER) (test gkjp=441) 3.90 M/ L 4.63-6.08 HEMOGLOBIN (BEAKER) (test icie=693) 11.9 GM/DL 13.7-17.5 HEMATOCRIT (BEAKER) (test tsqa=473) 35.7 % 40.1-51.0 MEAN CORPUSCULAR VOLUME (BEAKER) (test bqkf=752) 91.5 fL 79.0-92.2 MEAN CORPUSCULAR HEMOGLOBIN (BEAKER) (test 30.5 pg 25.7-32.2 atpt=612) MEAN CORPUSCULAR HEMOGLOBIN CONC (BEAKER) (test 33.3 GM/DL 32.3-36.5 znhc=306) RED CELL DISTRIBUTION WIDTH (BEAKER) (test 14.0 % 11.6-14.4 dkpj=728) PLATELET COUNT (BEAKER) (test thnr=089) 452 K/CU MM 150-450 MEAN PLATELET VOLUME (BEAKER) (test wqaz=351) 9.0 fL 9.4-12.4 NUCLEATED RED BLOOD CELLS (BEAKER) (test 0 /100 WBC 0-0 mpyt=165) NEUTROPHILS RELATIVE PERCENT (BEAKER) (test 59 % rrgh=234) LYMPHOCYTES RELATIVE PERCENT (BEAKER) (test 21 % drat=742) MONOCYTES RELATIVE PERCENT (BEAKER) (test 8 % auvh=577) EOSINOPHILS RELATIVE PERCENT (BEAKER) (test 10 % phmx=352) BASOPHILS RELATIVE PERCENT (BEAKER) (test 1 % axwa=850) NEUTROPHILS ABSOLUTE COUNT (BEAKER) (test 4.12 K/ L 1.78-5.38 tfug=816) LYMPHOCYTES ABSOLUTE COUNT (BEAKER) (test 1.45 K/ L 1.32-3.57 jzvw=804) MONOCYTES ABSOLUTE COUNT (BEAKER) (test 0.58 K/ L 0.30-0.82 mhre=082) EOSINOPHILS ABSOLUTE COUNT (BEAKER) (test 0.70 K/ L 0.04-0.54 lhbc=982) BASOPHILS ABSOLUTE COUNT (BEAKER) (test 0.10 K/ L 0.01-0.08 mtug=773) IMMATURE GRANULOCYTES-RELATIVE PERCENT (BEAKER) 0 % 0-1 (test yngc=5198) BASIC METABOLIC [id number] 06:43:00 Test Item Value Reference Range Comments SODIUM (BEAKER) (test 138 meq/L 136-145 sjrj=582) POTASSIUM (BEAKER) (test 3.5 meq/L 3.5-5.1 yhxg=403) CHLORIDE (BEAKER) (test 100 meq/L 98-107 rngm=659) CO2 (BEAKER) (test 27 meq/L 22-29 ipmb=626) BLOOD UREA NITROGEN 2 mg/dL 7-21 (BEAKER) (test poej=437) CREATININE (BEAKER) (test 0.53 mg/dL 0.57-1.25 rdrw=378) GLUCOSE RANDOM (BEAKER) 82 mg/dL 70-105 (test vjtb=096) CALCIUM (BEAKER) (test 9.0 mg/dL 8.4-10.2 ynha=692) EGFR (BEAKER) (test 175 mL/min/1.73 sq m ESTIMATED GFR IS NOT qpsk=5530) ACCURATE CREATININE CLEARANCE IN PREDICTING GLOMERULAR FILTRATION RATE. ESTIMATED GFR IS NOT APPLICABLE FOR DIALYSIS PATIENTS. BASIC METABOLIC [id number] 05:14:00 Test Item Value Reference Range Comments SODIUM (BEAKER) (test 132 meq/L 136-145 vzec=679) POTASSIUM (BEAKER) (test 3.8 meq/L 3.5-5.1 ewbl=191) CHLORIDE (BEAKER) (test 101 meq/L 98-107 wmsb=153) CO2 (BEAKER) (test 18 meq/L 22-29 snwk=917) BLOOD UREA NITROGEN 4 mg/dL 7-21 (BEAKER) (test ykby=842) CREATININE (BEAKER) (test 0.52 mg/dL 0.57-1.25 qjov=000) GLUCOSE RANDOM (BEAKER) 58 mg/dL 70-105 (test ozoe=144) CALCIUM (BEAKER) (test 8.7 mg/dL 8.4-10.2 alsm=180) EGFR (BEAKER) (test 179 mL/min/1.73 sq m ESTIMATED GFR IS NOT uesn=7869) ACCURATE CREATININE CLEARANCE IN PREDICTING GLOMERULAR FILTRATION RATE. ESTIMATED GFR IS NOT APPLICABLE FOR DIALYSIS PATIENTS. CBC (HEMOGRAM ONLY)2017-05-15 04:57:00 Test Item Value Reference Range Comments WHITE BLOOD CELL COUNT (BEAKER) (test rrle=727) 13.4 K/ L 3.5-10.5 RED BLOOD CELL COUNT (BEAKER) (test vpzt=158) 3.81 M/ L 4.63-6.08 HEMOGLOBIN (BEAKER) (test xlhj=148) 11.4 GM/DL 13.7-17.5 HEMATOCRIT (BEAKER) (test gerb=711) 35.1 % 40.1-51.0 MEAN CORPUSCULAR VOLUME (BEAKER) (test zbwa=291) 92.1 fL 79.0-92.2 MEAN CORPUSCULAR HEMOGLOBIN (BEAKER) (test 29.9 pg 25.7-32.2 buqh=229) MEAN CORPUSCULAR HEMOGLOBIN CONC (BEAKER) (test 32.5 GM/DL 32.3-36.5 uhda=538) RED CELL DISTRIBUTION WIDTH (BEAKER) (test 14.3 % 11.6-14.4 vfgw=975) PLATELET COUNT (BEAKER) (test mnuo=688) 502 K/CU MM 150-450 MEAN PLATELET VOLUME (BEAKER) (test hqhw=259) 9.6 fL 9.4-12.4 NUCLEATED RED BLOOD CELLS (BEAKER) (test 0 /100 WBC 0-0 jbvq=722) LIPID [id number] 05:00:00 Test Item Value Reference Range Comments TRIGLYCERIDES (BEAKER) (test xzeu=332) 71 mg/dL CHOLESTEROL (BEAKER) (test newh=239) 108 mg/dL HDL CHOLESTEROL (BEAKER) (test lkiu=775) 22 mg/dL LDL CHOLESTEROL CALCULATED (BEAKER) (test 72 mg/dL vngg=059) Triglyceride Reference Range: Low Risk <150 Borderline 150- 199 High Risk 200-499 Very High Risk >=500Cholesterol Reference Range: Low Risk <200 Borderline 200-239 High Risk > 240HDL Cholesterol Reference Range: Low Risk >=60 High Risk <40LDL Cholesterol Reference Range: Optimal <100 Near Optimal 100-129 Borderline 130-159 High 160-189 Very High >=190BASIC METABOLIC [id number] 05:00:00 Test Item Value Reference Range Comments SODIUM (BEAKER) (test 133 meq/L 136-145 nzcd=048) POTASSIUM (BEAKER) (test 4.1 meq/L 3.5-5.1 ltci=875) CHLORIDE (BEAKER) (test 105 meq/L 98-107 yhwc=478) CO2 (BEAKER) (test 17 meq/L 22-29 cfts=481) BLOOD UREA NITROGEN 8 mg/dL 7-21 (BEAKER) (test xwfm=997) CREATININE (BEAKER) (test 0.51 mg/dL 0.57-1.25 jlmp=201) GLUCOSE RANDOM (BEAKER) 54 mg/dL 70-105 (test yykp=250) CALCIUM (BEAKER) (test 8.4 mg/dL 8.4-10.2 jxwp=767) EGFR (BEAKER) (test 183 mL/min/1.73 sq m ESTIMATED GFR IS NOT uwoj=0443) ACCURATE CREATININE CLEARANCE IN PREDICTING GLOMERULAR FILTRATION RATE. ESTIMATED GFR IS NOT APPLICABLE FOR DIALYSIS PATIENTS. HEPATIC FUNCTION [id number] 05:00:00 Test Item Value Reference Range Comments TOTAL PROTEIN (BEAKER) (test aevj=825) 6.3 gm/dL 6.0-8.3 ALBUMIN (BEAKER) (test vycu=6322) 3.2 g/dL 3.5-5.0 BILIRUBIN TOTAL (BEAKER) (test drwb=140) 0.7 mg/dL 0.2-1.2 BILIRUBIN DIRECT (BEAKER) (test rxkm=523) 0.3 mg/dL 0.1-0.5 ALKALINE PHOSPHATASE (BEAKER) (test svuc=979) 62 U/L 40-150 AST (SGOT) (BEAKER) (test igja=256) 13 U/L 5-34 ALT (SGPT) (BEAKER) (test vhxp=093) 9 U/L 6-55 [id number] 05:00:00 Test Item Value Reference Range Comments LIPASE (BEAKER) (test hpbg=825) 1007 U/L 8-78 CBC (HEMOGRAM ONLY)2017-05-14 04:39:00 Test Item Value Reference Range Comments WHITE BLOOD CELL COUNT (BEAKER) (test pepa=917) 16.6 K/ L 3.5-10.5 RED BLOOD CELL COUNT (BEAKER) (test qvcl=938) 3.98 M/ L 4.63-6.08 HEMOGLOBIN (BEAKER) (test vfyt=289) 12.0 GM/DL 13.7-17.5 HEMATOCRIT (BEAKER) (test fyat=515) 37.2 % 40.1-51.0 MEAN CORPUSCULAR VOLUME (BEAKER) (test hrla=160) 93.5 fL 79.0-92.2 MEAN CORPUSCULAR HEMOGLOBIN (BEAKER) (test 30.2 pg 25.7-32.2 ffzr=722) MEAN CORPUSCULAR HEMOGLOBIN CONC (BEAKER) (test 32.3 GM/DL 32.3-36.5 nnxh=929) RED CELL DISTRIBUTION WIDTH (BEAKER) (test 14.5 % 11.6-14.4 hynu=133) PLATELET COUNT (BEAKER) (test jzel=331) 527 K/CU MM 150-450 MEAN PLATELET VOLUME (BEAKER) (test xxis=690) 9.5 fL 9.4-12.4 NUCLEATED RED BLOOD CELLS (BEAKER) (test 0 /100 WBC 0-0 fedj=730) MR, ABDOMEN, [id number] 12:25:00FINAL REPORT MRI of the abdomen, MRCP. [...] biliary dilatation or choledocholithiasis. Signed: [facility] Verified Date/Time: 03/13/2017 12:25:41 Reading Location: [facility] [id number] [facility] Consult Reading Room Electronically signed by: KIKO VEE M.D. on 12:25 [facility] [id number] 05:05:00 Test Item Value Reference Range Comments SODIUM (BEAKER) (test 139 meq/L 136-145 jgbs=392) POTASSIUM (BEAKER) (test 3.7 meq/L 3.5-5.1 onri=334) CHLORIDE (BEAKER) (test 108 meq/L 98-107 yhjw=001) CO2 (BEAKER) (test 22 meq/L 22-29 qvkb=388) BLOOD UREA NITROGEN 4 mg/dL 7-21 (BEAKER) (test rhzs=157) CREATININE (BEAKER) (test 0.58 mg/dL 0.57-1.25 njlm=888) GLUCOSE RANDOM (BEAKER) 95 mg/dL 70-105 (test lipq=733) CALCIUM (BEAKER) (test 8.5 mg/dL 8.4-10.2 uuwn=797) EGFR (BEAKER) (test 158 mL/min/1.73 sq m ESTIMATED GFR IS NOT tvsh=5593) ACCURATE CREATININE CLEARANCE IN PREDICTING GLOMERULAR FILTRATION RATE. ESTIMATED GFR IS NOT APPLICABLE FOR DIALYSIS PATIENTS. CBC W/PLT COUNT & AUTO [id number] 04:49:00 Test Item Value Reference Range Comments WHITE BLOOD CELL COUNT (BEAKER) (test frst=494) 6.3 K/ L 3.5-10.5 RED BLOOD CELL COUNT (BEAKER) (test ikvj=894) 4.32 M/ L 4.63-6.08 HEMOGLOBIN (BEAKER) (test ioos=636) 13.7 GM/DL 13.7-17.5 HEMATOCRIT (BEAKER) (test eqvp=086) 40.3 % 40.1-51.0 MEAN CORPUSCULAR VOLUME (BEAKER) (test lemx=959) 93.3 fL 79.0-92.2 MEAN CORPUSCULAR HEMOGLOBIN (BEAKER) (test 31.7 pg 25.7-32.2 kotc=600) MEAN CORPUSCULAR HEMOGLOBIN CONC (BEAKER) (test 34.0 GM/DL 32.3-36.5 hfvf=925) RED CELL DISTRIBUTION WIDTH (BEAKER) (test 11.9 % 11.6-14.4 gvoi=728) PLATELET COUNT (BEAKER) (test ohhh=606) 286 K/CU MM 150-450 MEAN PLATELET VOLUME (BEAKER) (test sxuc=755) 9.4 fL 9.4-12.4 NUCLEATED RED BLOOD CELLS (BEAKER) (test 0 /100 WBC 0-0 ktok=796) NEUTROPHILS RELATIVE PERCENT (BEAKER) (test 51 % jbqe=680) LYMPHOCYTES RELATIVE PERCENT (BEAKER) (test 31 % dhoj=585) MONOCYTES RELATIVE PERCENT (BEAKER) (test 11 % rxsf=064) EOSINOPHILS RELATIVE PERCENT (BEAKER) (test 6 % npjp=895) BASOPHILS RELATIVE PERCENT (BEAKER) (test 1 % wlne=027) NEUTROPHILS ABSOLUTE COUNT (BEAKER) (test 3.21 K/ L 1.78-5.38 scnh=568) LYMPHOCYTES ABSOLUTE COUNT (BEAKER) (test 1.91 K/ L 1.32-3.57 evks=986) MONOCYTES ABSOLUTE COUNT (BEAKER) (test 0.68 K/ L 0.30-0.82 yzew=333) EOSINOPHILS ABSOLUTE COUNT (BEAKER) (test 0.40 K/ L 0.04-0.54 xztp=440) BASOPHILS ABSOLUTE COUNT (BEAKER) (test 0.04 K/ L 0.01-0.08 atds=708) IMMATURE GRANULOCYTES-RELATIVE PERCENT (BEAKER) 1 % 0-1 (test gjce=2595) CBC W/PLT COUNT & AUTO [id number] 04:52:00 Test Item Value Reference Range Comments WHITE BLOOD CELL COUNT (BEAKER) (test xdjg=106) 6.2 K/ L 3.5-10.5 RED BLOOD CELL COUNT (BEAKER) (test gemf=991) 4.31 M/ L 4.63-6.08 HEMOGLOBIN (BEAKER) (test cdqz=923) 13.7 GM/DL 13.7-17.5 HEMATOCRIT (BEAKER) (test cbtg=170) 41.1 % 40.1-51.0 MEAN CORPUSCULAR VOLUME (BEAKER) (test hfhp=704) 95.4 fL 79.0-92.2 MEAN CORPUSCULAR HEMOGLOBIN (BEAKER) (test 31.8 pg 25.7-32.2 daam=474) MEAN CORPUSCULAR HEMOGLOBIN CONC (BEAKER) (test 33.3 GM/DL 32.3-36.5 yiey=121) RED CELL DISTRIBUTION WIDTH (BEAKER) (test 12.1 % 11.6-14.4 oohj=658) PLATELET COUNT (BEAKER) (test vaqx=880) 295 K/CU MM 150-450 MEAN PLATELET VOLUME (BEAKER) (test ndmx=225) 9.5 fL 9.4-12.4 NUCLEATED RED BLOOD CELLS (BEAKER) (test 0 /100 WBC 0-0 msnh=541) NEUTROPHILS RELATIVE PERCENT (BEAKER) (test 51 % sezs=331) LYMPHOCYTES RELATIVE PERCENT (BEAKER) (test 31 % pegl=389) MONOCYTES RELATIVE PERCENT (BEAKER) (test 11 % hxxp=604) EOSINOPHILS RELATIVE PERCENT (BEAKER) (test 7 % mtvv=670) BASOPHILS RELATIVE PERCENT (BEAKER) (test 1 % ozug=236) NEUTROPHILS ABSOLUTE COUNT (BEAKER) (test 3.17 K/ L 1.78-5.38 gnqr=250) LYMPHOCYTES ABSOLUTE COUNT (BEAKER) (test 1.89 K/ L 1.32-3.57 qisg=564) MONOCYTES ABSOLUTE COUNT (BEAKER) (test 0.65 K/ L 0.30-0.82 jrli=409) EOSINOPHILS ABSOLUTE COUNT (BEAKER) (test 0.41 K/ L 0.04-0.54 suni=830) BASOPHILS ABSOLUTE COUNT (BEAKER) (test 0.05 K/ L 0.01-0.08 lxvr=024) IMMATURE GRANULOCYTES-RELATIVE PERCENT (BEAKER) 1 % 0-1 (test rrrt=2379) COMPREHENSIVE METABOLIC [id number] 11:20:00 Test Item Value Reference Range Comments TOTAL PROTEIN (BEAKER) 7.2 gm/dL 6.0-8.3 (test yyzs=760) ALBUMIN (BEAKER) (test 3.7 g/dL 3.5-5.0 wxvn=1936) ALKALINE PHOSPHATASE 73 U/L 40-150 (BEAKER) (test dcax=740) BILIRUBIN TOTAL (BEAKER) 0.6 mg/dL 0.2-1.2 (test wjwa=234) SODIUM (BEAKER) (test 135 meq/L 136-145 cjpk=896) POTASSIUM (BEAKER) (test 5.0 meq/L 3.5-5.1 irnr=396) CHLORIDE (BEAKER) (test 109 meq/L 98-107 opsh=606) CO2 (BEAKER) (test 14 meq/L 22-29 andd=075) BLOOD UREA NITROGEN 6 mg/dL 7-21 (BEAKER) (test ewkw=026) CREATININE (BEAKER) (test 0.62 mg/dL 0.57-1.25 kujp=430) GLUCOSE RANDOM (BEAKER) 45 mg/dL 70-105 (test qzcx=190) CALCIUM (BEAKER) (test 8.6 mg/dL 8.4-10.2 otcz=893) AST (SGOT) (BEAKER) (test 17 U/L 5-34 lrnv=412) ALT (SGPT) (BEAKER) (test 14 U/L 6-55 lkal=461) EGFR (BEAKER) (test 146 mL/min/1.73 sq ESTIMATED GFR IS NOT bqye=6622) m ACCURATE CREATININE CLEARANCE IN PREDICTING GLOMERULAR FILTRATION RATE. ESTIMATED GFR IS NOT APPLICABLE FOR DIALYSIS PATIENTS. CBC W/PLT COUNT & AUTO [id number] 09:54:00 Test Item Value Reference Range Comments WHITE BLOOD CELL COUNT (BEAKER) (test atzb=872) 7.4 K/ L 3.5-10.5 RED BLOOD CELL COUNT (BEAKER) (test fqix=626) 4.32 M/ L 4.63-6.08 HEMOGLOBIN (BEAKER) (test cdtz=050) 13.6 GM/DL 13.7-17.5 HEMATOCRIT (BEAKER) (test klvb=180) 41.8 % 40.1-51.0 MEAN CORPUSCULAR VOLUME (BEAKER) (test ziml=272) 96.8 fL 79.0-92.2 MEAN CORPUSCULAR HEMOGLOBIN (BEAKER) (test 31.5 pg 25.7-32.2 slos=757) MEAN CORPUSCULAR HEMOGLOBIN CONC (BEAKER) (test 32.5 GM/DL 32.3-36.5 ligt=539) RED CELL DISTRIBUTION WIDTH (BEAKER) (test 12.1 % 11.6-14.4 unui=170) PLATELET COUNT (BEAKER) (test ijji=860) 277 K/CU MM 150-450 MEAN PLATELET VOLUME (BEAKER) (test bvgh=700) 9.7 fL 9.4-12.4 NUCLEATED RED BLOOD CELLS (BEAKER) (test 0 /100 WBC 0-0 hkgw=337) NEUTROPHILS RELATIVE PERCENT (BEAKER) (test 57 % ytmm=007) LYMPHOCYTES RELATIVE PERCENT (BEAKER) (test 29 % pgva=678) MONOCYTES RELATIVE PERCENT (BEAKER) (test 8 % ihtn=293) EOSINOPHILS RELATIVE PERCENT (BEAKER) (test 5 % iogi=091) BASOPHILS RELATIVE PERCENT (BEAKER) (test 1 % fwoq=918) NEUTROPHILS ABSOLUTE COUNT (BEAKER) (test 4.23 K/ L 1.78-5.38 cxxl=091) LYMPHOCYTES ABSOLUTE COUNT (BEAKER) (test 2.10 K/ L 1.32-3.57 xrzc=229) MONOCYTES ABSOLUTE COUNT (BEAKER) (test 0.57 K/ L 0.30-0.82 zqma=705) EOSINOPHILS ABSOLUTE COUNT (BEAKER) (test 0.38 K/ L 0.04-0.54 exrl=495) BASOPHILS ABSOLUTE COUNT (BEAKER) (test 0.05 K/ L 0.01-0.08 fxrx=121) IMMATURE GRANULOCYTES-RELATIVE PERCENT (BEAKER) 1 % 0-1 (test kenc=0725) (MANUAL DIFFERENTIAL)2017-03-11 09:54:00 Test Item Value Reference Range Comments TOTAL COUNTED (BEAKER) (test dstp=4065) WBC MORPHOLOGY (BEAKER) (test bxyh=944) Normal PLT MORPHOLOGY (BEAKER) (test grig=538) Normal RBC MORPHOLOGY (BEAKER) (test urbg=560) Normal CBC W/PLT COUNT & AUTO [id number] 09:09:00 Test Item Value Reference Range Comments WHITE BLOOD CELL COUNT (BEAKER) (test gmgf=601) 8.9 K/ L 3.5-10.5 RED BLOOD CELL COUNT (BEAKER) (test jzxy=493) 4.25 M/ L 4.63-6.08 HEMOGLOBIN (BEAKER) (test hoyh=353) 13.6 GM/DL 13.7-17.5 HEMATOCRIT (BEAKER) (test iyth=821) 40.7 % 40.1-51.0 MEAN CORPUSCULAR VOLUME (BEAKER) (test lngb=483) 95.8 fL 79.0-92.2 MEAN CORPUSCULAR HEMOGLOBIN (BEAKER) (test 32.0 pg 25.7-32.2 slmo=163) MEAN CORPUSCULAR HEMOGLOBIN CONC (BEAKER) (test 33.4 GM/DL 32.3-36.5 wlav=930) RED CELL DISTRIBUTION WIDTH (BEAKER) (test 12.1 % 11.6-14.4 atnf=108) PLATELET COUNT (BEAKER) (test jwch=858) 274 K/CU MM 150-450 MEAN PLATELET VOLUME (BEAKER) (test wsqe=059) 9.8 fL 9.4-12.4 NUCLEATED RED BLOOD CELLS (BEAKER) (test 0 /100 WBC 0-0 cnnu=123) NEUTROPHILS RELATIVE PERCENT (BEAKER) (test 62 % tngn=607) LYMPHOCYTES RELATIVE PERCENT (BEAKER) (test 24 % wpun=097) MONOCYTES RELATIVE PERCENT (BEAKER) (test 7 % nfmj=316) EOSINOPHILS RELATIVE PERCENT (BEAKER) (test 5 % seli=868) BASOPHILS RELATIVE PERCENT (BEAKER) (test 1 % zsfs=894) NEUTROPHILS ABSOLUTE COUNT (BEAKER) (test 5.55 K/ L 1.78-5.38 lvfv=245) LYMPHOCYTES ABSOLUTE COUNT (BEAKER) (test 2.14 K/ L 1.32-3.57 wwnb=548) MONOCYTES ABSOLUTE COUNT (BEAKER) (test 0.64 K/ L 0.30-0.82 ulzh=580) EOSINOPHILS ABSOLUTE COUNT (BEAKER) (test 0.48 K/ L 0.04-0.54 takd=897) BASOPHILS ABSOLUTE COUNT (BEAKER) (test 0.07 K/ L 0.01-0.08 xuds=636) IMMATURE GRANULOCYTES-RELATIVE PERCENT (BEAKER) 0 % 0-1 (test mmff=3285) (MANUAL DIFFERENTIAL)2017-03-10 09:09:00 Test Item Value Reference Range Comments TOTAL COUNTED (BEAKER) (test qszf=1639) WBC MORPHOLOGY (BEAKER) (test jyam=989) Normal PLT MORPHOLOGY (BEAKER) (test swll=252) Normal RBC MORPHOLOGY (BEAKER) (test efqc=586) Normal COMPREHENSIVE METABOLIC [id number] 07:30:00 Test Item Value Reference Range Comments TOTAL PROTEIN (BEAKER) 6.8 gm/dL 6.0-8.3 (test rlcs=646) ALBUMIN (BEAKER) (test 3.6 g/dL 3.5-5.0 ydob=7902) ALKALINE PHOSPHATASE 77 U/L 40-150 (BEAKER) (test aryg=485) BILIRUBIN TOTAL (BEAKER) 0.6 mg/dL 0.2-1.2 (test zqyp=408) SODIUM (BEAKER) (test 136 meq/L 136-145 prcc=440) POTASSIUM (BEAKER) (test 4.3 meq/L 3.5-5.1 ptoh=205) CHLORIDE (BEAKER) (test 105 meq/L 98-107 rsgn=235) CO2 (BEAKER) (test 19 meq/L 22-29 dcfj=880) BLOOD UREA NITROGEN 6 mg/dL 7-21 (BEAKER) (test xale=363) CREATININE (BEAKER) (test 0.57 mg/dL 0.57-1.25 zhbr=634) GLUCOSE RANDOM (BEAKER) 52 mg/dL 70-105 (test pzso=014) CALCIUM (BEAKER) (test 8.2 mg/dL 8.4-10.2 oucq=709) AST (SGOT) (BEAKER) (test 17 U/L 5-34 imto=433) ALT (SGPT) (BEAKER) (test 14 U/L 6-55 pucc=488) EGFR (BEAKER) (test 161 mL/min/1.73 sq ESTIMATED GFR IS NOT noab=2626) m ACCURATE CREATININE CLEARANCE IN PREDICTING GLOMERULAR FILTRATION RATE. ESTIMATED GFR IS NOT APPLICABLE FOR DIALYSIS PATIENTS. CBC W/PLT COUNT & AUTO [id number] 10:49:00 Test Item Value Reference Range Comments WHITE BLOOD CELL COUNT (BEAKER) (test spdf=052) 6.9 K/ L 3.5-10.5 RED BLOOD CELL COUNT (BEAKER) (test luve=559) 3.83 M/ L 4.63-6.08 HEMOGLOBIN (BEAKER) (test kzpm=631) 12.5 GM/DL 13.7-17.5 HEMATOCRIT (BEAKER) (test vusy=367) 36.7 % 40.1-51.0 MEAN CORPUSCULAR VOLUME (BEAKER) (test kfsq=138) 95.8 fL 79.0-92.2 MEAN CORPUSCULAR HEMOGLOBIN (BEAKER) (test 32.6 pg 25.7-32.2 lxvc=052) MEAN CORPUSCULAR HEMOGLOBIN CONC (BEAKER) (test 34.1 GM/DL 32.3-36.5 spaa=889) RED CELL DISTRIBUTION WIDTH (BEAKER) (test 12.4 % 11.6-14.4 ftlr=296) PLATELET COUNT (BEAKER) (test aurb=997) 267 K/CU MM 150-450 MEAN PLATELET VOLUME (BEAKER) (test luxp=587) 9.7 fL 9.4-12.4 NUCLEATED RED BLOOD CELLS (BEAKER) (test 0 /100 WBC 0-0 pjfm=902) NEUTROPHILS RELATIVE PERCENT (BEAKER) (test 60 % scnp=697) LYMPHOCYTES RELATIVE PERCENT (BEAKER) (test 26 % thjk=451) MONOCYTES RELATIVE PERCENT (BEAKER) (test 7 % lvio=213) EOSINOPHILS RELATIVE PERCENT (BEAKER) (test 6 % ebft=361) BASOPHILS RELATIVE PERCENT (BEAKER) (test 1 % utnz=259) NEUTROPHILS ABSOLUTE COUNT (BEAKER) (test 4.15 K/ L 1.78-5.38 yojx=840) LYMPHOCYTES ABSOLUTE COUNT (BEAKER) (test 1.82 K/ L 1.32-3.57 azin=452) MONOCYTES ABSOLUTE COUNT (BEAKER) (test 0.47 K/ L 0.30-0.82 wwqg=379) EOSINOPHILS ABSOLUTE COUNT (BEAKER) (test 0.38 K/ L 0.04-0.54 kowh=799) BASOPHILS ABSOLUTE COUNT (BEAKER) (test 0.04 K/ L 0.01-0.08 lchr=786) COMPREHENSIVE METABOLIC [id number] 10:45:00 Test Item Value Reference Range Comments TOTAL PROTEIN (BEAKER) 6.2 gm/dL 6.0-8.3 (test ieex=824) ALBUMIN (BEAKER) (test 3.3 g/dL 3.5-5.0 nmpj=5884) ALKALINE PHOSPHATASE 70 U/L 40-150 (BEAKER) (test dkqt=723) BILIRUBIN TOTAL (BEAKER) 0.4 mg/dL 0.2-1.2 (test earo=202) SODIUM (BEAKER) (test 138 meq/L 136-145 dlid=641) POTASSIUM (BEAKER) (test 3.5 meq/L 3.5-5.1 anir=698) CHLORIDE (BEAKER) (test 109 meq/L 98-107 hbpz=086) CO2 (BEAKER) (test 23 meq/L 22-29 mvjt=679) BLOOD UREA NITROGEN 5 mg/dL 7-21 (BEAKER) (test xhxg=828) CREATININE (BEAKER) (test 0.54 mg/dL 0.57-1.25 ngpe=550) GLUCOSE RANDOM (BEAKER) 77 mg/dL 70-105 (test bogt=733) CALCIUM (BEAKER) (test 7.6 mg/dL 8.4-10.2 yclf=434) AST (SGOT) (BEAKER) (test 18 U/L 5-34 blkg=103) ALT (SGPT) (BEAKER) (test 15 U/L 6-55 mjye=086) EGFR (BEAKER) (test 171 mL/min/1.73 sq ESTIMATED GFR IS NOT zdfs=6771) m ACCURATE CREATININE CLEARANCE IN PREDICTING GLOMERULAR FILTRATION RATE. ESTIMATED GFR IS NOT APPLICABLE FOR DIALYSIS PATIENTS. [id number] 10:29:00 Test Item Value Reference Range Comments TRIGLYCERIDES (BEAKER) (test xqup=234) 58 mg/dL TRIGLYCERIDE REFERENCE RANGELow Risk <150Borderline Risk 150-199High Risk 200-499Very High Risk>=[id number] 10:29:00 Test Item Value Reference Range Comments MAGNESIUM (BEAKER) (test wgjh=630) 1.4 mg/dL 1.6-2.6 [id number] 10:29:00 Test Item Value Reference Range Comments LIPASE (BEAKER) (test hvkt=398) 536 U/L 8-78 PROTHROMBIN TIME/[id number] 10:22:00 Test Item Value Reference Range Comments PROTIME (BEAKER) (test dwwf=613) 14.3 seconds 11.7-14.7 INR (BEAKER) (test zyzj=442) 1.1 <=5.9 RECOMMENDED COUMADIN/WARFARIN INR THERAPY RANGESSTANDARD DOSE: 2.0 - 3.0 Includes: PROPHYLAXIS forvenous thrombosis, systemic embolization; TREATMENT for venous thrombosis and/or pulmonary embolus.HIGH RISK: Target INR is 2.5-3.5 for patients with mechanical heart valves.
[2018-07-01] MEDS ORDERED: NA CHLORIDE 0.9% 2,000 ML ONE (09:39)
[2018-07-01] MEDS ORDERED: PROMETHAZINE 25 MG/ML VIAL ONE (09:39)
[2018-07-01] MEDS ORDERED: MORPHINE 4 MG/ML SYR ONE ×2 (09:52→10:55)
[2018-07-01 09:53] LABS: Absolute Monocytes 0.5 K/uL (0.1-1.3); Absolute Neutrophil 2.7 K/uL (1.8-8.0); Basophils % 1.2 % (0-1.3); Eosinophils % 0.7 % (0-4.4); Hematocrit 49.6 % (39.6-49.0); Lymphocytes % 37.7 % (15.3-44.8); MPV 7.9 fL (7.6-11.3); Monocytes % 9.3 % (3.3-12.3); RBC Red Blood Cell Count 5.05 M/uL (4.33-5.43)
[2018-07-01 10:13] LABS: ALT/SGPT 26 U/L (12-78); AST/SGOT 44 U/L (15-37); Albumin 4.5 g/dL (3.4-5.0); Alkaline Phosphatase 88 U/L (45-117); BUN Blood Urea Nitrogen 6 mg/dL (7-18); Bicarbonate 27 mmol/L (21-32); Bilirubin Direct 0.1 mg/dL (0-0.2); Bilirubin Total 0.3 mg/dL (0.2-1.0); Glucose Level 107 mg/dL (74-106); Lipase 250 U/L (73-393); Potassium 3.6 mmol/L (3.5-5.1); Protein, Total 8.9 g/dL (6.4-8.2); Sodium Level 144 mmol/L (136-145)
--- NOTE | 2018-07-01 10:46 | EDPHYS ---
Physician Documentation [facility] Name: Ankit Rosales Age: 37 yrs Sex: Male : 1980 Arrival Date: 07/01/2018 Time: 09:00 Bed 8 Private MD: None, None ED Physician Shadi Duarte HPI: 07/01 09:57 This 37 yrs old Male presents to ER via Ambulatory with complaints of rn Abdominal Pain. 09:57 The patient presents with abdominal pain in the epigastric area. Onset: The rn symptoms/episode began/occurred yesterday. The symptoms radiate to Associated signs and symptoms: Pertinent positives: nausea and vomiting, Pertinent negatives: blood in stools, fever, shortness of breath, testicular pain. The symptoms are described as sharp. Modifying factors: The symptoms are alleviated by nothing, the symptoms are aggravated by alcohol, touching the area. Severity of pain: At its worst the pain was moderate in the emergency department the pain is unchanged. The patient has experienced similar episodes in the past. Reports upper abd pain, radiates to back, identical to previous episodes of alcoholic pancreatitis. . Historical: - Allergies: 09:21 NKDA; iw - Home Meds: 09:21 Tylenol #3 Oral [Active]; iw - PMHx: 09:21 Cirrhosis; etoh abuse; GALLSTONES; left leg DVT; Pancreatitis; iw - PSHx: 09:21 TUBE COILS; iw - Immunization history:: Adult Immunizations Adult Immunizations not up to date. - Social history:: Smoking status: Patient uses tobacco products, smokes one pack cigarettes per day. - Ebola Screening: : Patient negative for fever greater than or equal to 101.5 degrees Fahrenheit, and additional compatible Ebola Virus Disease symptoms Patient denies exposure to infectious person Patient denies travel to an Ebola-affected area in the 21 days before illness onset No symptoms or risks identified at this time. - Family history:: not pertinent. - Hospitalizations: : No recent hospitalization is reported. ROS: 09:57 Constitutional: Negative for fever, chills, and weight loss, Eyes: Negative for injury, rn pain, redness, and discharge, Neck: Negative for injury, pain, and swelling, Cardiovascular: Negative for chest pain, palpitations, and edema, Respiratory: Negative for shortness of breath, cough, wheezing, and pleuritic chest pain, Abdomen/GI: + abd pain/nausea/vomiting MS/Extremity: Negative for injury and deformity, Skin: Negative for injury, rash, and discoloration, Neuro: + generalized weakness Exam: 09:57 Constitutional: This is a well developed, well nourished patient who is awake, alert, pcu rn to room without assistance Head/Face: Normocephalic, atraumatic. ENT: dry MM Cardiovascular: tachycardic, regular, no murmur Respiratory: Lungs have equal breath sounds bilaterally, clear to auscultation. No increased work of breathing, no retractions or nasal flaring. Abdomen/GI: soft, + epigastric abd tenderness, no rebound MS/ Extremity: Pulses equal, no cyanosis. Neurovascular intact. Full, normal range of motion. Equal circumference. Neuro: Awake and alert, GCS 15, oriented to person, place, time, and situation. Cranial nerves II-XII grossly intact. Motor strength 5/5 in all extremities. Sensory grossly intact. Cerebellar exam normal. Normal gait. Vital Signs: 09:21 BP 141 / 96; Pulse 127; Resp 18; Temp 98.0; Pulse Ox 98% on R/A; Weight 58.97 kg; iw Height 5 ft. 5 in. (165.10 cm); Pain 10/10; 09:48 Pulse 96; Resp 16; Pulse Ox 100% on R/A; sg 09:21 Body Mass Index 21.63 (58.97 kg, 165.10 cm) iw MDM: 09:24 Patient medically screened. rn 10:43 Differential diagnosis: gastritis, gastroesophageal reflux disease, non-specific abd rn pain, pancreatitis, Peptic Ulcer Disease. Data reviewed: vital signs, nurses notes, lab test result(s), and as a result, I will discharge patient. Counseling: I had a detailed discussion with the patient and/or guardian regarding: the historical points, exam findings, and any diagnostic results supporting the discharge/admit diagnosis, lab results, the need for outpatient follow up, to return to the emergency department if symptoms worsen or persist or if there are any questions or concerns that arise at home. Response to treatment: the patient's symptoms have markedly improved after treatment, and as a result, I will discharge patient. Special discussion: Based on the patient's Hx, exam, and Dx evaluation, there is no indication for emergent surgery or inpatient Tx. It is understood by the patient/guardian that if the Sx's persist or worsen they need to return immediately for re-evaluation. I discussed with the patient/guardian in detail that at this point there is no indication for admission to the hospital. It is understood, however, that if the symptoms persist or worsen the patient needs to return immediately for re-evaluation. ED course: Counseled patient regarding need to stop drinking again, either alcoholic pancreatitis vs gastritis. Pt recently back drinking and binging, will dc home with instructions to quit drinking.. 07/01 09:24 Order name: Basic Metabolic Panel; Complete Time: 10:30 rn 07/01 09:24 Order name: CBC with Diff; Complete Time: 10:13 rn 07/01 09:24 Order name: Hepatic Function; Complete Time: 10:30 rn 07/01 09:24 Order name: Lipase; Complete Time: 10:30 rn 07/01 09:25 Order name: ETOH Level; Complete Time: 10:30 rn 07/01 09:24 Order name: IV Saline Lock; Complete Time: 09:36 rn 07/01 09:24 Order name: Labs collected and sent; Complete Time: 09:36 rn Administered Medications: 09:30 Drug: NS 0.9% 1000 ml Route: IV; Rate: 1000 ml; Site: right antecubital; sg 09:30 Drug: Phenergan 25 mg Route: IVP; Site: right antecubital; sg 10:35 Follow up: Response: No adverse reaction; Nausea is decreased sg 09:30 Drug: NS 0.9% 1000 ml Route: IV; Rate: 1000 ml; Site: right antecubital; sg 09:47 Drug: morphine 4 mg Route: IVP; Site: right antecubital; sg 10:35 Follow up: Response: No adverse reaction; Pain is unchanged, physician notified sg 10:55 Drug: morphine 4 mg Route: IVP; Site: right antecubital; sg Disposition: 07/01/18 10:45 Discharged to Home. Impression: Upper abdominal pain, unspecified, Gastritis, unspecified. - Condition is Stable. - Discharge Instructions: Abdominal Pain, Adult, Gastritis, Adult, Alcohol Abuse and Nutrition. - Medication Reconciliation Form, Thank You Letter, Antibiotic Education, Prescription Opioid Use form. - Follow up: Private Physician; When: As needed; Reason: Recheck today's complaints, Re-evaluation by your physician. - Problem is an acute exacerbation. - Symptoms have improved. Signatures: Dispatcher [employer] EDAnkit Chua RN RN sg Williams, Irene, RN RN iw Nieto, Roman, MD MD planning intern: (The following items were deleted from the chart) 11:58 10:45 07/01/2018 10:45 Discharged to Home. Impression: Upper abdominal pain, sg unspecified; Gastritis, unspecified. Condition is Stable. Forms are Medication Reconciliation Form, Thank You Letter, Antibiotic Education, Prescription Opioid Use. Follow up: Private Physician; When: As needed; Reason: Recheck today's complaints, Re-evaluation by your physician. Problem is an acute exacerbation. Symptoms have improved. rn
--- NOTE | 2018-07-01 10:46 | ER ---
Nurse's Notes [facility] Name: Ankit Rosales Age: 37 yrs Sex: Male : 1980 Arrival Date: 07/01/2018 Time: 09:00 Bed 8 Private MD: None, None Diagnosis: Upper abdominal pain, unspecified;Gastritis, unspecified Presentation: 07/01 09:20 Presenting complaint: Patient states: hx of pancreatitis, vomiting, RUQ pain last iw night. Transition of care: patient was not received from another setting of care. Onset of symptoms was June 29, 2018. Risk Assessment: Do you want to hurt yourself or someone else? Patient reports no desire to harm self or others. Initial Sepsis Screen: Does the patient meet any 2 criteria? No. Patient's initial sepsis screen is negative. Does the patient have a suspected source of infection? No. Patient's initial sepsis screen is negative. Care prior to arrival: None. 09:20 Method Of Arrival: Ambulatory iw 09:20 Acuity: KRAIG 3 iw Historical: - Allergies: 09:21 NKDA; iw - Home Meds: :21 Tylenol #3 Oral [Active]; iw - PMHx: 09:21 Cirrhosis; etoh abuse; GALLSTONES; left leg DVT; Pancreatitis; iw - PSHx: 09:21 TUBE COILS; iw - Immunization history:: Adult Immunizations Adult Immunizations not up to date. - Social history:: Smoking status: Patient uses tobacco products, smokes one pack cigarettes per day. - Ebola Screening: : Patient negative for fever greater than or equal to 101.5 degrees Fahrenheit, and additional compatible Ebola Virus Disease symptoms Patient denies exposure to infectious person Patient denies travel to an Ebola-affected area in the 21 days before illness onset No symptoms or risks identified at this time. - Family history:: not pertinent. - Hospitalizations: : No recent hospitalization is reported. Screenin:30 Abuse screen: Denies threats or abuse. Denies injuries from another. Nutritional sg screening: No deficits noted. Tuberculosis screening: No symptoms or risk factors identified. Never had TB. Fall Risk None identified. Assessment: 09:30 General: Appears in no apparent distress. uncomfortable, ill, slender, well groomed, sg well developed, well nourished, Behavior is calm, cooperative, appropriate for age, Smells of alcohol. Pain: Complains of pain in epigastric area, right upper quadrant and left upper quadrant Quality of pain is described as aching, sharp, stabbing, tender. Neuro: Level of Consciousness is awake, obeys commands, drowsy and slow to respond when asked a question. Oriented to person, place, time, [place] are equal bilaterally Moves all extremities. Full function Speech is normal, Facial symmetry appears normal. Cardiovascular: Capillary refill is brisk in bilateral fingers Patient's skin is warm and dry. Chest pain is denied. Respiratory: Airway is patent Respiratory effort is even, unlabored, Respiratory pattern is regular, symmetrical. GI: Abdomen is flat, non-distended, Bowel sounds present X 4 quads. Abd is soft and non tender X 4 quads. : No signs and/or symptoms were reported regarding the genitourinary system. EENT: No signs and/or symptoms were reported regarding the EENT system. Derm: Skin is pink, warm \T\ dry. Musculoskeletal: No signs and/or symptoms reported regarding the musculoskeletal system. Vital Signs: 09:21 BP 141 / 96; Pulse 127; Resp 18; Temp 98.0; Pulse Ox 98% on R/A; Weight 58.97 kg; iw Height 5 ft. 5 in. (165.10 cm); Pain 10/10; 09:48 Pulse 96; Resp 16; Pulse Ox 100% on R/A; sg 09:21 Body Mass Index 21.63 (58.97 kg, 165.10 cm) iw ED Course: 09:00 Patient arrived in ED. mr 09:01 None, None is Private Physician. mr 09:20 Triage completed. iw 09:21 Arm band placed on. iw 09:24 Shadi Duarte MD is Attending Physician. rn 09:36 Initial lab(s) drawn, by nj, sent to lab. Inserted saline lock: 20 gauge in right jb1 antecubital area, using aseptic technique. Blood collected. 09:38 Ankit Quintero, MIRYAM is Primary Nurse. sg Administered Medications: 09:30 Drug: NS 0.9% 1000 ml Route: IV; Rate: 1000 ml; Site: right antecubital; sg 09:30 Drug: Phenergan 25 mg Route: IVP; Site: right antecubital; sg 10:35 Follow up: Response: No adverse reaction; Nausea is decreased sg 09:30 Drug: NS 0.9% 1000 ml Route: IV; Rate: 1000 ml; Site: right antecubital; sg 09:47 Drug: morphine 4 mg Route: IVP; Site: right antecubital; sg 10:35 Follow up: Response: No adverse reaction; Pain is unchanged, physician notified sg 10:55 Drug: morphine 4 mg Route: IVP; Site: right antecubital; Outcome: 10:45 Discharge ordered by . rn 11:58 Patient left the ED. sg Signatures: Alf [email or web address] Ankit Quintero RN RN Corin Bernard Irene, RN RN Shadi Duarte MD MD rn
[2018-07-01 14:44] VITALS: BP 141/96; TEMP 98
[2018-07-01 14:45] VITALS: O2SAT 100
== END 2018-07-01 11:58 | disposition home or self-care (01) ==
LOC: ER 08:59
DX: K29.70 Gastritis, unspecified, without bleeding (principal); R11.2 Nausea with vomiting, unspecified; K74.60 Unspecified cirrhosis of liver; F17.210 Nicotine dependence, cigarettes, uncomplicated
CPT/HCPCS: 36415; 80048; 80076; 80320; 83690; 85025; 96374; 96375; 99283; J2550; J7030